=== PATIENT | female | born 1960 | race African-American/Black ===

== ENCOUNTER 2016-09-23 16:24 | Emergency (ER) | payer OTHER ==
[~2016-09-23] VITALS: Ht 157.5 cm; Wt 63.5 kg
[2016-09-23] MEDS ORDERED: IV NORMAL SALINE 1000ML BAG 1,000 ML IV SCH (16:47)
[2016-09-23] MEDS ORDERED: ONDANSETRON PF 4 MG/2 ML VIAL. IV ONE (17:00)
[2016-09-23] MEDS: fentaNYL PF VIAL 100 MCG/2 ML VIAL IV PRN ×2 (17:23→19:05)
[2016-09-23 17:38] LABS: BILIRUBIN,URINE SMALL (NEG); GLUCOSE,URINE 100 mg/dL (NEG); NITRITE,URINE NEGATIVE (NEG); PH,URINE 5.5; PROTEIN,URINE >=300 mg/dL (NEG-TRACE); UROBILINOGEN,URINE 0.2 mg/dL (0.2 mg/dL)
[2016-09-23 17:46] LABS: BARBITURATES NEG (NEG); BENZODIAZEPINES NEG (NEG); CANNABINOIDS POS (NEG); COCAINE NEG (NEG); METHADONE NEG (NEG); OPIATES NEG (NEG); PHENCYCLIDINE NEG (NEG)
[2016-09-23 17:50] LABS: BACTERIA,URINE FEW /HPF (0-FEW); RBC,URINE 0 /HPF (0-2); SQUAMOUS EPITHELIAL CELL,UR FEW /LPF
[2016-09-23 17:54] LABS: BASO # 0.1 x10^3/uL (0.0-0.2); BASO % 1 % (0-3); EOS % 1 % (0-3); HEMOGLOBIN 10.2 g/dL (12.0-15.5); LYMPH # 2.2 x10^3/uL (1.0-4.8); LYMPH % 20 % (24-48); MEAN CORPUSCULAR HEMOGLOBIN 29 pg (25-35); MEAN CORPUSCULAR HGB CONC 33 g/dL (31-37); MEAN CORPUSCULAR VOLUME 87 fL (79-100); MONO % 10 % (0-9); NEUT % 69 % (31-73); PLATELET COUNT 222 x10^3/uL (140-400); RED BLOOD COUNT 3.55 x10^6/uL (3.50-5.40); RED CELL DISTRIBUTION WIDTH 14.1 % (11.5-14.5); WHITE BLOOD COUNT 11.2 x10^3/uL (4.0-11.0)
[2016-09-23 18:04] LABS: INR 1.1 (0.8-1.1); PROTHROMBIN TIME PATIENT 13.5 SEC (11.7-14.0)
[2016-09-23 18:06] LABS: CALCIUM 9.4 mg/dL (8.5-10.1); CREATININE 2.5 mg/dL (0.6-1.0); GFR 24.3; POTASSIUM 5.3 mmol/L (3.5-5.1)
[2016-09-23] MEDS ORDERED: CONTRAST GIVEN MC PRN (18:15)
[2016-09-23 18:17] LABS: ALBUMIN 3.1 g/dL (3.4-5.0); ALBUMIN/GLOBULIN RATIO 0.8 (1.0-1.7); TOTAL BILIRUBIN 0.3 mg/dL (0.2-1.0); TOTAL PROTEIN 6.9 g/dL (6.4-8.2)
[2016-09-23] MEDS ORDERED: IOHEXOL 300 MG/ML 75 ML VIAL IV ONE (18:30)
--- NOTE | 2016-09-23 18:51 | RAD ---
CT Chest Abdomen Pelvis without Intravenous Contrast: History: Syncope, severe chronic pain. Cough and wheezing Comparison: CT abdomen pelvis from July 11, 2012. Technique: Noncontrast CT of chest, abdomen, and pelvis was performed from the lung apices through the ischial tuberosities. Exposure: One or more of the following individualized dose reduction techniques were utilized for this examination: 1. Automated exposure control 2. Adjustment of the mA and/or kV according to patient size 3. Use of iterative reconstruction technique Findings: Evaluation of solid organs is limited by lack of intravenous contrast. Evaluation of enteric structures may be limited by lack of oral contrast. Trachea and mainstem bronchi appear patent. No mediastinal lymphadenopathy is seen. Thyroid is symmetric. Coronary artery calcifications are present. Minimal pericardial thickening versus effusion is seen. No pneumothorax or pleural effusion is identified. Mild emphysematous changes are seen in the lung apices. Ground glass opacity is seen in both lungs, nonspecific, could be atelectasis versus mild nonspecific infectious or inflammatory process. Liver, spleen, pancreas, and bilateral adrenal glands unremarkable. Cholecystectomy clips are seen. No bowel obstruction or inflammation is identified. Appendix is without evidence of inflammation. Urinary bladder is unremarkable. Uterus may be absent. Both kidneys demonstrate punctate nonobstructive nephrolithiasis. Impression: 1. Nonspecific groundglass opacity involving the lungs. Findings could represent atelectasis versus nonspecific infectious or inflammatory process. 2. No acute abnormality identified in the abdomen or pelvis. Electronically signed by: Sam Conley MD (09/23/2016 6:48 PM)
--- NOTE | 2016-09-23 19:01 | PHYS DOC ---
Past Medical History Past Medical History: Diabetes-Type II, Glaucoma, Hypertension Additional Past Medical Histor: neuropathy, cataracts Past Surgical History: No Surgical History Alcohol Use: None Drug Use: None Adult General Chief Complaint Chief Complaint: multiple HPI HPI Patient is a 56 year old female brought to the ED by EMS. Patient's daughter came in as well and history is mostly from her. The patient gave a history but it is not at all consistent with what EMS or the daughter told me. Patient's daughter told me that she had not been responsive and they called 911. They thought her sugar was low but were unable to get an Accu-Chek. The patient tells me that she had taken her insulin shot, she felt hungry, she ate some [employer]. Then she suddenly couldn't stand up when she wanted to go out to smoke. Her daughter however told me that she had been on the toilet and I believe had a syncopal episode. On arrival, the patient is complaining bitterly of pain. She is complaining that her head, stomach, and back hurt, she is writhing on the cart and is not able to well localize her pain. She denies shortness of breath or vomiting. PCP [facility] Review of Systems Review of Systems History given by the patient is unreliable and inconsistent, therefore patient was not able to give an accurate review of systems, review of systems was not obtained. Current Medications Current Medications Current Medications Medications (Trade) Dose Ordered Sig/[facility] Start Time Stop Time Status Last Admin Dose Admin Fentanyl Citrate (Fentanyl 2ml Vial) 50 mcg PRN Q15MIN PRN 09/23/16 17:00 09/23/16 19:22 DC 09/23/16 19:05 50 MCG Info (Do NOT chart on this entry -- for MONITORING) 1 each PRN DAILY PRN 09/23/16 18:15 09/23/16 19:22 DC Iohexol (Omnipaque 300 Mg/ml) 75 ml 1X ONCE 09/23/16 18:30 09/23/16 18:31 DC Ondansetron HCl (Zofran) 4 mg 1X ONCE 09/23/16 17:00 09/23/16 17:01 DC 09/23/16 17:23 4 MG Sodium Chloride 1,000 ml @ 1,000 mls/hr Q1H 09/23/16 16:47 09/23/16 17:46 DC 09/23/16 17:23 1,000 MLS/HR Allergies Allergies Allergies Coded Allergies Type Severity Reaction Last Updated Verified No Known Drug Allergies 05/29/13 No Physical Exam Physical Exam Constitutional: Well developed, well nourished, alert, thrashing around on the cart, complaining bitterly of stomach and back pain, alert and does answer questions appropriately. HENT: Normocephalic, atraumatic, bilateral external ears normal, nose normal. [ ] Eyes: conjunctiva normal, no discharge. [] Neck: Normal range of motion, no stridor. [] Cardiovascular:Heart rate regular rhythm, no murmur [] Lungs & Thorax: Bilateral breath sounds clear to auscultation [] Abdomen: Bowel sounds normal, soft, no masses, no pulsatile masses. Moderately distended, increased in tympany, tender to palpation throughout the abdomen, generalized, not localized. No rebound or guarding. Skin: Warm, dry, no erythema, no rash. [] Back: No skin abnormalities overlying. Tender to light palpation across the entire back, over bony and muscular areas, not localized, very tender to touch Extremities: No tenderness, no cyanosis, no clubbing, ROM intact, no edema. [] Neurologic: Alert and oriented X 3, normal motor function, normal sensory function, no focal deficits noted. [] Current Patient Data Vital Signs Vital Signs Date Time Temp Pulse Resp B/P (MAP) Pulse Ox O2 Delivery O2 Flow Rate FiO2 09/23/16 19:14 91 20 160/84 (109) 100 Room Air 09/23/16 16:25 98.9 98.9 Lab Values Laboratory Tests Test 09/23/16 17:30 White Blood Count 11.2 x10^3/uL (4.0-11.0) H Red Blood Count 3.55 x10^6/uL (3.50-5.40) Hemoglobin 10.2 g/dL (12.0-15.5) L Hematocrit 31.0 % (36.0-47.0) L Mean Corpuscular Volume 87 fL (79-100) Mean Corpuscular Hemoglobin 29 pg (25-35) Mean Corpuscular Hemoglobin Concent 33 g/dL (31-37) Red Cell Distribution Width 14.1 % (11.5-14.5) Platelet Count 222 x10^3/uL (140-400) Neutrophils (%) (Auto) 69 % (31-73) Lymphocytes (%) (Auto) 20 % (24-48) L Monocytes (%) (Auto) 10 % (0-9) H Eosinophils (%) (Auto) 1 % (0-3) Basophils (%) (Auto) 1 % (0-3) Neutrophils # (Auto) 7.7 x10^3uL (1.8-7.7) Lymphocytes # (Auto) 2.2 x10^3/uL (1.0-4.8) Monocytes # (Auto) 1.1 x10^3/uL (0.0-1.1) Eosinophils # (Auto) 0.1 x10^3/uL (0.0-0.7) Basophils # (Auto) 0.1 x10^3/uL (0.0-0.2) Prothrombin Time 13.5 SEC (11.7-14.0) Prothrombin Time INR 1.1 (0.8-1.1) PTT 26 SEC (24-38) Urine Collection Type Unknown Urine Color Yellow Urine Clarity Clear Urine pH 5.5 Urine Specific [place] 1.015 Urine Protein >=300 mg/dL (NEG-TRACE) Urine Glucose (UA) 100 mg/dL (NEG) Urine Ketones (Stick) Negative mg/dL (NEG) Urine Blood Negative (NEG) Urine Nitrite Negative (NEG) Urine Bilirubin Small (NEG) Urine Urobilinogen Dipstick 0.2 mg/dL (0.2 mg/dL) Urine Leukocyte Esterase Small (NEG) Urine RBC 0 /HPF (0-2) Urine WBC 1-4 /HPF (0-4) Urine Squamous Epithelial Cells Few /LPF Urine Amorphous Sediment Present /HPF Urine Bacteria Few /HPF (0-FEW) Urine Hyaline Casts Few /HPF Sodium Level 142 mmol/L (136-145) Potassium Level 5.3 mmol/L (3.5-5.1) H Chloride Level 107 mmol/L (98-107) Carbon Dioxide Level 26 mmol/L (21-32) Anion Gap 9 (6-14) Blood Urea Nitrogen 30 mg/dL (7-20) H Creatinine 2.5 mg/dL (0.6-1.0) H Estimated GFR (Cockcroft-Gault) 24.3 BUN/Creatinine Ratio 12 (6-20) Glucose Level 144 mg/dL (70-99) H Calcium Level 9.4 mg/dL (8.5-10.1) Total Bilirubin 0.3 mg/dL (0.2-1.0) Aspartate Amino Transferase (AST) 21 U/L (15-37) Alanine Aminotransferase (ALT) 20 U/L (14-59) Alkaline Phosphatase 84 U/L (46-116) Creatine Kinase 138 U/L (26-192) Creatine Kinase MB (Mass) 2.0 ng/mL (0.0-3.6) Creatine Kinase MB Relative Index 1.4 % (0-4) Troponin I Quantitative < 0.017 ng/mL (0.000-0.055) Total Protein 6.9 g/dL (6.4-8.2) Albumin 3.1 g/dL (3.4-5.0) L Albumin/Globulin Ratio 0.8 (1.0-1.7) L Lipase 276 U/L (73-393) Urine Opiates Screen Neg (NEG) Urine Methadone Screen Neg (NEG) Urine Barbiturates Neg (NEG) Urine Phencyclidine Screen Neg (NEG) Urine Amphetamine/Methamphetamine Neg (NEG) Urine Benzodiazepines Screen Neg (NEG) Urine Cocaine Screen Neg (NEG) Urine Cannabinoids Screen Pos (NEG) Urine Ethyl Alcohol Neg (NEG) Laboratory Tests 09/23/16 17:30 Laboratory Tests 09/23/16 17:30 EKG EKG 12-lead EKG read by me. Sinus rhythm. Heart rate 87. There are no acute ST or T wave changes indicative of ischemia or infarction. No STEMI. 1633 [] Radiology/Procedures Radiology/Procedures CT scan of the chest, abdomen, and pelvis read by the radiologist. No acute findings to explain the patient's complaints. [] Course & Med Decision Making Course & Med Decision Making Pertinent Labs and Imaging studies reviewed. (See chart for details) 56-year-old female brought by EMS with sounds like syncope, complaining of severe abdominal and back pain. Patient is a diabetic. History is difficult to get from her as she is vague and complaining bitterly. With the amount of complaint, I'm concerned about the possibility of something serious. She was given IV pain medicine, CT scan of the chest, abdomen and pelvis was ordered. I originally ordered it with contrast but her creatinine is elevated so we will have to get a noncontrast study. Labs unrevealing. CT scan of the chest, abdomen, pelvis read by the radiologist. No acute findings. The patient is sitting up on the cart, complaining that she is bleeding from a hang nail. Her pain appears to be gone and she appears to be comfortable and stable. She appears to be in no discomfort at this time. She is asking for apple juice, orange juice, or soda to drink at this time. Daughter is here to take her home. See instructions for plan. [] Dragon Disclaimer Dragon Disclaimer This electronic medical record was generated, in whole or in part, using a voice recognition dictation system. Departure Departure Impression: Primary Impression: Abdominal pain Additional Impressions: Back pain Diabetes Disposition: 01 HOME, SELF-CARE Condition: IMPROVED Referrals: LYNDSEY GARCÍA DO (PCP) Patient Instructions: Type 2 Diabetes Mellitus, Adult, [id number] Additional Instructions: Ask your primary care doctor if you can see a childbirth educator for better ideas of what you should eat and drink. Ice or heat to back pain. Scripts No Active Prescriptions or Reported Meds Problem Qualifiers JOSE MORRIS MD Sep 23, 2016 19:01
[2016-09-23 19:14] VITALS: BP 160/84
--- NOTE | 2016-09-24 08:41 | EKG ---
[facility] [address] [place] [address] Test Date: 2016-09-23 Test Time: 16:33:58 Pat Name: OTTONIEL SMITH Department: Room: Gender: F Plater Helper: : 1960 Requested By: JOSE MORRIS Order Number: [id number] Reading MD: Cecily Pepper Measurements Intervals [place] Rate: 87 P: 62 [place]: 158 QRS: 38 QRSD: 80 T: 68 QT: 348 QTc: 419 Interpretive Statements SINUS RHYTHM LEFT ATRIAL ABNORMALITY QRS(T) CONTOUR ABNORMALITY CONSIDER ANTEROSEPTAL MYOCARDIAL DAMAGE Electronically Signed On 09-24-2016 14:29:52 CDT by Cecily Pepper
== END 2016-09-23 19:22 | disposition home or self-care (01) ==
LOC: ER 16:24
DX: M54.9 Dorsalgia, unspecified (principal); R10.9 Unspecified abdominal pain; R55 Syncope and collapse; F17.200 Nicotine dependence, unspecified, uncomplicated; E11.9 Type 2 diabetes mellitus without complications; G89.29 Other chronic pain; Z79.4 Long term (current) use of insulin; I10 Essential (primary) hypertension; E11.39 Type 2 diabetes mellitus with other diabetic ophthalmic complication; H40.9 Unspecified glaucoma; E11.40 Type 2 diabetes mellitus with diabetic neuropathy, unspecified; Z98.49 Cataract extraction status, unspecified eye
CPT/HCPCS: 36415; 71250; 74176; 80053; 80305; 80320; 81001; 82553; 83690; 84484; 85027; 85610; 85730; 87086; 93005; 96361; 96374; 96375; 96376; 99285; J2405; J3010; J7030; G0481

== ENCOUNTER 2016-10-01 13:26 | Emergency (ER) | payer OTHER ==
[~2016-10-01] VITALS: Ht 157.5 cm; Wt 61.2 kg
[2016-10-01] MEDS ORDERED: TRANEXAMIC ACID 1,000 MG/10 ML VIAL. TOP ONE (13:45)
[2016-10-01] MEDS ORDERED: NEOMY/BACITR/POLYMYXIN OINT PACKET. TP ONE (13:45)
[2016-10-01] MEDS ORDERED: IV NORMAL SALINE 1000ML BAG 1,000 ML IV ONE (13:45)
[2016-10-01] MEDS ORDERED: MORPHINE SULFATE 10 MG/ML VIAL. IV ONE (13:45)
[2016-10-01] MEDS ORDERED: OXYMETAZOLINE 0.05% NASAL SPRAY 30ML BOTTLE. NS ONE (13:45)
[2016-10-01 14:21] LABS: BASO # 0.1 x10^3/uL (0.0-0.2); BASO % 1 % (0-3); EOS % 1 % (0-3); HEMATOCRIT 34.7 % (36.0-47.0); HEMOGLOBIN 11.2 g/dL (12.0-15.5); LYMPH # 2.5 x10^3/uL (1.0-4.8); LYMPH % 22 % (24-48); MEAN CORPUSCULAR HEMOGLOBIN 28 pg (25-35); MEAN CORPUSCULAR HGB CONC 32 g/dL (31-37); MEAN CORPUSCULAR VOLUME 88 fL (79-100); MONO % 6 % (0-9); NEUT % 70 % (31-73); PLATELET COUNT 252 x10^3/uL (140-400); RED BLOOD COUNT 3.95 x10^6/uL (3.50-5.40); WHITE BLOOD COUNT 11.5 x10^3/uL (4.0-11.0)
--- NOTE | 2016-10-01 14:28 | PHYS DOC ---
Past Medical History Past Medical History: Diabetes-Type II, Fibromyalgia, Glaucoma, Hypertension, Other Additional Past Medical Histor: neuropathy, cataracts,CHRONIC PAIN Past Surgical History: Hysterectomy Additional Information: 0.5 PPD Alcohol Use: None Drug Use: None Adult General Chief Complaint Chief Complaint: NOSEBLEED HPI HPI Patient is a 56 year old female presenting to the emergency department for evaluation of epistaxis. Reportedly she has had a nosebleed for the past 2-3 days but she has not tried treating it with anything. The nosebleed is stopped currently. She says that she is here for a variety of other complaints and basically everything ask her she says yes to. I asked her what her primary reason for being here and she says that it is that she has low back pain. She was in the emergency department last week for similar issues and sounds like the daughter was only able to provide some meaningful history but the daughter is not present today. Review of Systems Review of Systems REPORTS YES TO ALL ROS QUESTIONS Current Medications Current Medications Current Medications Medications (Trade) Dose Ordered Sig/[place] Start Time Stop Time Status Last Admin Dose Admin Diphenhydramine HCl (Benadryl) 50 mg 1X ONCE 10/01/16 14:45 10/01/16 14:46 DC 10/01/16 14:43 50 MG Morphine Sulfate 5 mg 1X ONCE 10/01/16 13:45 10/01/16 13:46 DC 10/01/16 14:16 5 MG Neomycin/ Polymyxin/ Bacitracin (Triple Antibiotic Ointment) 1 pkt 1X ONCE 10/01/16 13:45 10/01/16 13:46 DC 10/01/16 14:28 1 PKT Oxymetazoline HCl (Afrin) 2 spray 1X ONCE 10/01/16 13:45 10/01/16 13:46 DC 10/01/16 14:16 2 SPRAY Sodium Chloride 1,000 ml @ 1,000 mls/hr 1X ONCE 10/01/16 13:45 10/01/16 14:44 DC 10/01/16 14:15 1,000 MLS/HR Tranexamic Acid (Cyklokapron) 1,000 mg 1X ONCE 10/01/16 13:45 10/01/16 13:46 DC 10/01/16 14:28 1,000 MG Allergies Allergies Allergies Coded Allergies Type Severity Reaction Last Updated Verified No Known Drug Allergies 05/29/13 No Physical Exam Physical Exam Constitutional: Anxious HENT: Normocephalic, atraumatic, bilateral external ears normal, oropharynx moist. Right anterior [place] with small using blunt no severe bleeding noted. No septal hematoma Eyes: PERRLA, EOMI, conjunctiva normal, no discharge. [] Cardiovascular:Heart rate regular rhythm, no murmur [] Lungs & Thorax: Bilateral breath sounds clear to auscultation [] Abdomen: Bowel sounds normal, soft, no tenderness, no masses, no pulsatile masses. [] Neurologic: Alert and oriented X 3, normal motor function, normal sensory function, no focal deficits noted. [] Current Patient Data Vital Signs Vital Signs Date Time Temp Pulse Resp B/P (MAP) Pulse Ox O2 Delivery O2 Flow Rate FiO2 10/01/16 15:06 83 19 201/96 (131) 98 10/01/16 14:16 Room Air 10/01/16 13:26 98.1 98.1 Lab Values Laboratory Tests Test 10/01/16 14:10 White Blood Count 11.5 x10^3/uL (4.0-11.0) H Red Blood Count 3.95 x10^6/uL (3.50-5.40) Hemoglobin 11.2 g/dL (12.0-15.5) L Hematocrit 34.7 % (36.0-47.0) L Mean Corpuscular Volume 88 fL (79-100) Mean Corpuscular Hemoglobin 28 pg (25-35) Mean Corpuscular Hemoglobin Concent 32 g/dL (31-37) Red Cell Distribution Width 14.0 % (11.5-14.5) Platelet Count 252 x10^3/uL (140-400) Neutrophils (%) (Auto) 70 % (31-73) Lymphocytes (%) (Auto) 22 % (24-48) L Monocytes (%) (Auto) 6 % (0-9) Eosinophils (%) (Auto) 1 % (0-3) Basophils (%) (Auto) 1 % (0-3) Neutrophils # (Auto) 8.1 x10^3uL (1.8-7.7) H Lymphocytes # (Auto) 2.5 x10^3/uL (1.0-4.8) Monocytes # (Auto) 0.7 x10^3/uL (0.0-1.1) Eosinophils # (Auto) 0.1 x10^3/uL (0.0-0.7) Basophils # (Auto) 0.1 x10^3/uL (0.0-0.2) Prothrombin Time 12.3 SEC (11.7-14.0) Prothrombin Time INR 1.0 (0.8-1.1) PTT 26 SEC (24-38) Sodium Level 141 mmol/L (136-145) Potassium Level 4.7 mmol/L (3.5-5.1) Chloride Level 107 mmol/L (98-107) Carbon Dioxide Level 23 mmol/L (21-32) Anion Gap 11 (6-14) Blood Urea Nitrogen 33 mg/dL (7-20) H Creatinine 1.4 mg/dL (0.6-1.0) H Estimated GFR (Cockcroft-Gault) 47.4 BUN/Creatinine Ratio 24 (6-20) H Glucose Level 206 mg/dL (70-99) H Calcium Level 9.8 mg/dL (8.5-10.1) Magnesium Level 2.2 mg/dL (1.8-2.4) Total Bilirubin 0.2 mg/dL (0.2-1.0) Aspartate Amino Transferase (AST) 24 U/L (15-37) Alanine Aminotransferase (ALT) 20 U/L (14-59) Alkaline Phosphatase 102 U/L (46-116) Total Protein 7.9 g/dL (6.4-8.2) Albumin 3.4 g/dL (3.4-5.0) Albumin/Globulin Ratio 0.8 (1.0-1.7) L Laboratory Tests 10/01/16 14:10 Laboratory Tests 10/01/16 14:10 EKG EKG [] Radiology/Procedures Radiology/Procedures Right nose packed with to cough swamps that had tranexamic acid and Afrin on it. The bleeding stopped but I wanted to put a rapid Rhino just in case she started bleeding again at home but she did not tolerate it and refused to have a rapid Rhino placed. Course & Med Decision Making Course & Med Decision Making Patient with epistaxis and some other complaints so we'll get some screening labs and treat her epistaxis. Labs are all near her baseline and her vital signs are normal except for her blood pressure which appears to be baseline for her. Patient states that she missed her dose this medication so I encouraged her to go home and take her medications as prescribed. Patient's epistaxis resolved in the emergency department and she refused Rhino Rocket but I gave her information for ENT to follow with. Patient aware and agreeable with plan for discharge and verbalized understanding of the need for short-term follow-up and strict ER return precautions discussed including worsening pain fevers vomiting or other general concerns. Dragon Disclaimer Dragon Disclaimer This electronic medical record was generated, in whole or in part, using a voice recognition dictation system. Departure Departure Impression: Primary Impression: Epistaxis Disposition: HOME, SELF-CARE Condition: GOOD Referrals: UNKNOWN PCP NAME (PCP) Patient Instructions: Nosebleed Additional Instructions: PUT AFRIN AND NEOSPORIN IN YOUR NOSE TWICE DAILY. ESPECIALLY REMEMBER TO PUT NEOSPORIN IN THE NOSE BEFORE YOU GO TO SLEEP TONIGHT. FOLLOW WITH THE ENT ON MONDAY. TELL THEM THAT YOU ARE FROM [facility]. CALL DR. CHONG, THE ENT AT [phone]. THANK YOU! Scripts Hydrocodone/Apap 5-325 (NORCO 5-325 TABLET) 1 Each Tablet 1 TAB PO PRN Q6HRS Y for PAIN, #14 TAB 0 Refills Prov: ADALBERTO MARTINEZ DO 10/01/16 ADALBERTO MARTINEZ DO Oct 01, 2016 14:28
[2016-10-01 14:29] LABS: PROTHROMBIN TIME PATIENT 12.3 SEC (11.7-14.0)
[2016-10-01 14:38] LABS: CALCIUM 9.8 mg/dL (8.5-10.1); CREATININE 1.4 mg/dL (0.6-1.0); GFR 47.4; POTASSIUM 4.7 mmol/L (3.5-5.1)
[2016-10-01] MEDS ORDERED: diphenhydrAMINE 50 MG/ML VIAL IVP ONE (14:45)
[2016-10-01 14:47] LABS: ALBUMIN 3.4 g/dL (3.4-5.0); ALBUMIN/GLOBULIN RATIO 0.8 (1.0-1.7); MAGNESIUM 2.2 mg/dL (1.8-2.4); TOTAL BILIRUBIN 0.2 mg/dL (0.2-1.0); TOTAL PROTEIN 7.9 g/dL (6.4-8.2)
[2016-10-01] MEDS ORDERED: HYDR-971 PO (15:02)
[2016-10-01 15:06] VITALS: BP 201/96
== END 2016-10-01 15:32 | disposition home or self-care (01) ==
LOC: ER 13:26
DX: R04.0 Epistaxis (principal); M54.5 Low back pain; E11.40 Type 2 diabetes mellitus with diabetic neuropathy, unspecified; E11.39 Type 2 diabetes mellitus with other diabetic ophthalmic complication; H40.9 Unspecified glaucoma; I10 Essential (primary) hypertension; G89.29 Other chronic pain; M79.7 Fibromyalgia; F17.200 Nicotine dependence, unspecified, uncomplicated; Z90.710 Acquired absence of both cervix and uterus
CPT/HCPCS: 30901; 36415; 80053; 83735; 85027; 85610; 85730; 96361; 96374; 96375; 99284; J1200; J2270; J7030; C1887

== ENCOUNTER 2016-10-26 10:56 | Emergency (ER) | payer OTHER ==
[~2016-10-26] VITALS: Ht 162.6 cm; Wt 61.2 kg
[~2016-10-26 10:56] MED LIST: HYDR-971 PO
[2016-10-26 11:44] LABS: BILIRUBIN,URINE NEGATIVE (NEG); GLUCOSE,URINE >=1000 mg/dL (NEG); NITRITE,URINE NEGATIVE (NEG); PROTEIN,URINE 100 mg/dL (NEG-TRACE); UROBILINOGEN,URINE 0.2 mg/dL (0.2 mg/dL)
[2016-10-26 12:00] VITALS: BP 157/99
[2016-10-26 12:00] LABS: BARBITURATES NEG (NEG); BENZODIAZEPINES NEG (NEG); CANNABINOIDS POS (NEG); COCAINE POS (NEG); METHADONE NEG (NEG); OPIATES NEG (NEG); PHENCYCLIDINE NEG (NEG)
[2016-10-26] MEDS ORDERED: ONDANSETRON PF 4 MG/2 ML VIAL. IV ONE (12:00)
[2016-10-26] MEDS ORDERED: fentaNYL PF VIAL 100 MCG/2 ML VIAL IV ONE (12:00)
[2016-10-26 12:03] LABS: BACTERIA,URINE FEW /HPF (0-FEW); SQUAMOUS EPITHELIAL CELL,UR FEW /LPF; WBC,URINE OCC /HPF (0-4)
[2016-10-26 12:20] LABS: ALBUMIN 3.5 g/dL (3.4-5.0); ALBUMIN/GLOBULIN RATIO 0.8 (1.0-1.7); CALCIUM 9.8 mg/dL (8.5-10.1); CREATININE 2.2 mg/dL (0.6-1.0); GFR 28.1; POTASSIUM 4.9 mmol/L (3.5-5.1); TOTAL BILIRUBIN 0.3 mg/dL (0.2-1.0); TOTAL PROTEIN 7.7 g/dL (6.4-8.2)
[2016-10-26 13:10] LABS: BASO # 0.2 x10^3/uL (0.0-0.2); BASO % 1 % (0-3); EOS % 0 % (0-3); HEMATOCRIT 35.9 % (36.0-47.0); HEMOGLOBIN 11.6 g/dL (12.0-15.5); LYMPH # 2.2 x10^3/uL (1.0-4.8); LYMPH % 15 % (24-48); MEAN CORPUSCULAR HEMOGLOBIN 28 pg (25-35); MEAN CORPUSCULAR HGB CONC 32 g/dL (31-37); MEAN CORPUSCULAR VOLUME 88 fL (79-100); MONO % 5 % (0-9); NEUT % 80 % (31-73); PLATELET COUNT 260 x10^3/uL (140-400); RED CELL DISTRIBUTION WIDTH 14.3 % (11.5-14.5); WHITE BLOOD COUNT 15.2 x10^3/uL (4.0-11.0)
[2016-10-26 13:21] LABS: INR 0.9 (0.8-1.1)
[2016-10-26] MEDS ORDERED: HALOPERIDOL LACTATE 5 MG/ML VIAL. IVP ONE (13:30)
--- NOTE | 2016-10-26 16:40 | ED.ADGEN ---
Past Medical History Past Medical History: Diabetes-Type II, Fibromyalgia, Glaucoma, Hypertension, Other Additional Past Medical Histor: neuropathy, cataracts,CHRONIC PAIN Past Surgical History: Hysterectomy Alcohol Use: None Drug Use: None Adult General Chief Complaint Chief Complaint: ABDOMINAL PAIN HPI HPI Patient is a 56 year old -[place] female with history of hypertension, type 2 diabetes and polysubstance abuse who presents with diffuse abdominal pain with nausea and vomiting starting yesterday. Patient states pain is mild to moderate described as aching is not localized. Denies prior abdominal surgeries. No fever chills or sweats. No flank pain dysuria, hematuria or urinary frequency or urgency. No prior abdominal surgeries. Patient ears limiting history Review of Systems Review of Systems ROS as per HPI, Current Medications Current Medications Current Medications Medications (Trade) Dose Ordered Sig/[place] Start Time Stop Time Status Last Admin Dose Admin Fentanyl Citrate (Fentanyl 2ml Vial) 75 mcg 1X ONCE 10/26/16 12:00 10/26/16 12:01 DC 10/26/16 11:57 75 MCG Haloperidol Lactate (Haldol) 2.5 mg 1X ONCE 10/26/16 13:30 10/26/16 13:31 DC Ondansetron HCl (Zofran) 4 mg 1X ONCE 10/26/16 12:00 10/26/16 12:01 DC 10/26/16 11:53 4 MG Allergies Allergies Allergies Coded Allergies Type Severity Reaction Last Updated Verified No Known Drug Allergies 05/29/13 No Physical Exam Physical Exam Constitutional: Well developed, mild agitation. [] HENT: Normocephalic, atraumatic, bilateral external ears normal, oropharynx moist, no oral exudates, nose normal. [] Eyes: PERRLA, EOMI, conjunctiva normal, no discharge. [] Neck: Normal range of motion, no tenderness, supple, no stridor. [] Cardiovascular:Heart rate regular rhythm, no murmur [] Lungs & Thorax: Bilateral breath sounds clear to auscultation [] Abdomen: Bowel sounds normal, soft, she is lower abdominal pain, tenderness. [] Skin: Warm, dry, no erythema, no rash. [] Back: No tenderness, no CVA tenderness. [] Extremities: No tenderness, no cyanosis, no clubbing, ROM intact, no edema. [] Neurologic: Alert and oriented X 3, normal motor function, normal sensory function, no focal deficits noted. [] Psychologic: Affect normal, judgement normal, mood normal. [] Current Patient Data Vital Signs Vital Signs Date Time Temp Pulse Resp B/P (MAP) Pulse Ox O2 Delivery O2 Flow Rate FiO2 10/26/16 12:00 92 19 157/99 (118) 98 Room Air 10/26/16 10:58 98.2 98.2 Lab Values Laboratory Tests Test 10/26/16 11:25 10/26/16 11:55 Urine Collection Type Unknown Urine Color Yellow Urine Clarity Clear Urine pH 6.0 Urine Specific [place] 1.015 Urine Protein 100 mg/dL (NEG-TRACE) Urine Glucose (UA) >=1000 mg/dL (NEG) Urine Ketones (Stick) Negative mg/dL (NEG) Urine Blood Large (NEG) Urine Nitrite Negative (NEG) Urine Bilirubin Negative (NEG) Urine Urobilinogen Dipstick 0.2 mg/dL (0.2 mg/dL) Urine Leukocyte Esterase Small (NEG) Urine RBC 11-20 /HPF (0-2) Urine WBC Occ /HPF (0-4) Urine Squamous Epithelial Cells Few /LPF Urine Bacteria Few /HPF (0-FEW) Urine Opiates Screen Neg (NEG) Urine Methadone Screen Neg (NEG) Urine Barbiturates Neg (NEG) Urine Phencyclidine Screen Neg (NEG) Urine Amphetamine/Methamphetamine Neg (NEG) Urine Benzodiazepines Screen Neg (NEG) Urine Cocaine Screen Pos (NEG) Urine Cannabinoids Screen Pos (NEG) Urine Ethyl Alcohol Neg (NEG) White Blood Count 15.2 x10^3/uL (4.0-11.0) H Red Blood Count 4.10 x10^6/uL (3.50-5.40) Hemoglobin 11.6 g/dL (12.0-15.5) L Hematocrit 35.9 % (36.0-47.0) L Mean Corpuscular Volume 88 fL (79-100) Mean Corpuscular Hemoglobin 28 pg (25-35) Mean Corpuscular Hemoglobin Concent 32 g/dL (31-37) Red Cell Distribution Width 14.3 % (11.5-14.5) Platelet Count 260 x10^3/uL (140-400) Neutrophils (%) (Auto) 80 % (31-73) H Lymphocytes (%) (Auto) 15 % (24-48) L Monocytes (%) (Auto) 5 % (0-9) Eosinophils (%) (Auto) 0 % (0-3) Basophils (%) (Auto) 1 % (0-3) Neutrophils # (Auto) 12.1 x10^3uL (1.8-7.7) H Lymphocytes # (Auto) 2.2 x10^3/uL (1.0-4.8) Monocytes # (Auto) 0.7 x10^3/uL (0.0-1.1) Eosinophils # (Auto) 0.0 x10^3/uL (0.0-0.7) Basophils # (Auto) 0.2 x10^3/uL (0.0-0.2) Prothrombin Time 12.0 SEC (11.7-14.0) Prothrombin Time INR 0.9 (0.8-1.1) Sodium Level 138 mmol/L (136-145) Potassium Level 4.9 mmol/L (3.5-5.1) Chloride Level 103 mmol/L (98-107) Carbon Dioxide Level 22 mmol/L (21-32) Anion Gap 13 (6-14) Blood Urea Nitrogen 38 mg/dL (7-20) H Creatinine 2.2 mg/dL (0.6-1.0) H Estimated GFR (Cockcroft-Gault) 28.1 BUN/Creatinine Ratio 17 (6-20) Glucose Level 402 mg/dL (70-99) H Calcium Level 9.8 mg/dL (8.5-10.1) Total Bilirubin 0.3 mg/dL (0.2-1.0) Aspartate Amino Transferase (AST) 27 U/L (15-37) Alanine Aminotransferase (ALT) 25 U/L (14-59) Alkaline Phosphatase 110 U/L (46-116) Creatine Kinase 370 U/L (26-192) H Troponin I Quantitative < 0.017 ng/mL (0.000-0.055) Total Protein 7.7 g/dL (6.4-8.2) Albumin 3.5 g/dL (3.4-5.0) Albumin/Globulin Ratio 0.8 (1.0-1.7) L Lipase 689 U/L (73-393) H Laboratory Tests 10/26/16 11:55 Laboratory Tests 8/2/17 11:55 EKG EKG [] Radiology/Procedures Radiology/Procedures [] Course & Med Decision Making Course & Med Decision Making Pertinent Labs and Imaging studies reviewed. (See chart for details) [Patient given IV pain medication shortly after ED arrival. Lab and imaging studies pending. Clinically, she is agitated with suspected simulate use. Patient requests discharge after leaving emergency Department and leaves AGAINST MEDICAL ADVICE prior to discharge instructions provided. ] Dragon Disclaimer Dragon Disclaimer This electronic medical record was generated, in whole or in part, using a voice recognition dictation system. KAYLEE MORGAN DO Oct 26, 2016 16:40
== END 2016-10-26 13:10 | disposition left against medical advice (07) ==
LOC: ER 10:56
DX: R10.84 Generalized abdominal pain (principal); R11.2 Nausea with vomiting, unspecified; R10.30 Lower abdominal pain, unspecified; E11.40 Type 2 diabetes mellitus with diabetic neuropathy, unspecified; M79.7 Fibromyalgia; H40.9 Unspecified glaucoma; I10 Essential (primary) hypertension; G89.29 Other chronic pain; E11.36 Type 2 diabetes mellitus with diabetic cataract; F19.10 Other psychoactive substance abuse, uncomplicated; Z90.710 Acquired absence of both cervix and uterus; Z98.49 Cataract extraction status, unspecified eye
CPT/HCPCS: 36415; 80053; 80307; 81001; 82550; 83690; 84484; 85027; 85610; 87086; 96374; 96375; 99284; J2405; J3010; 80320; G0479

== ENCOUNTER 2016-12-26 21:29 | Emergency (ER) | payer OTHER ==
[~2016-12-26] VITALS: Ht 157.5 cm; Wt 65.8 kg
[2016-12-26] MEDS: HYDROcodone/APAP 5/325MG 1 TAB TABLET PO ONE (22:57)
[2016-12-26 23:23] LABS: BASO # 0.1 x10^3/uL (0.0-0.2); BASO % 1 % (0-3); EOS % 2 % (0-3); HEMATOCRIT 30.5 % (36.0-47.0); HEMOGLOBIN 10.2 g/dL (12.0-15.5); LYMPH # 4.6 x10^3/uL (1.0-4.8); LYMPH % 37 % (24-48); MEAN CORPUSCULAR HEMOGLOBIN 29 pg (25-35); MEAN CORPUSCULAR HGB CONC 33 g/dL (31-37); MEAN CORPUSCULAR VOLUME 88 fL (79-100); MONO % 7 % (0-9); NEUT % 54 % (31-73); PLATELET COUNT 207 x10^3/uL (140-400); RED BLOOD COUNT 3.47 x10^6/uL (3.50-5.40); WHITE BLOOD COUNT 12.5 x10^3/uL (4.0-11.0)
[2016-12-26 23:29] LABS: CALCIUM 8.8 mg/dL (8.5-10.1); CREATININE 1.9 mg/dL (0.6-1.0); GFR 33.3; POTASSIUM 4.8 mmol/L (3.5-5.1)
[2016-12-26 23:35] LABS: ALBUMIN 3.1 g/dL (3.4-5.0); ALBUMIN/GLOBULIN RATIO 0.9 (1.0-1.7); TOTAL BILIRUBIN 0.1 mg/dL (0.2-1.0); TOTAL PROTEIN 6.5 g/dL (6.4-8.2)
--- NOTE | 2016-12-27 00:13 | PHYS DOC ---
Past Medical History Past Medical History: Diabetes-Type II, Fibromyalgia, Glaucoma, Hypertension, Other Additional Past Medical Histor: neuropathy, cataracts,CHRONIC PAIN Past Surgical History: Hysterectomy Alcohol Use: None Drug Use: None Adult General Chief Complaint Chief Complaint: MULTIPLE COMPLAINTS HPI HPI Patient is a 56 year old female who presents with bilateral foot pain & swelling. She reports 1 week history of pain in both feet with calf swelling which is worse on the left, associated with pain with ambulation. She reports dry cough for same duration. She denies fevers/chills, chest pain, shortness of breath, abdominal pain, vomiting, extremity numbness/weakness. She has history of diabetes, hypertension, fibromyalgia, neuropathy, chronic pain. She denies history of DVT/PE or CHF. She usually takes lyrica but didn't take it today because she didn't think it would help. Review of Systems Review of Systems Constitutional: Denies fever or chills Eyes: Denies change in visual acuity HENT: Denies nasal congestion or sore throat Respiratory: Reports cough, denies shortness of breath Cardiovascular: Denies chest pain or edema GI: Denies abdominal pain, nausea, vomiting, or diarrhea Musculoskeletal: Reports foot pain Integument: Denies rash or skin lesions Neurologic: Denies headache, focal weakness or sensory changes Current Medications Current Medications Current Medications Medications (Trade) Dose Ordered Sig/Clarence Start Time Stop Time Status Last Admin Dose Admin Acetaminophen/ Hydrocodone Bitart (Lortab 5/325) 1 tab 1X ONCE 12/26/16 23:00 12/26/16 23:01 DC 12/26/16 22:57 1 TAB Allergies Allergies Allergies Coded Allergies Type Severity Reaction Last Updated Verified No Known Drug Allergies 05/29/13 No Physical Exam Physical Exam Constitutional: Well developed, well nourished, no acute distress, non-toxic appearance. HENT: Normocephalic, atraumatic, bilateral external ears normal, oropharynx moist, nose normal. Eyes: conjunctiva normal, no discharge. Neck: supple, no stridor. Cardiovascular: RRR, no murmurs, no edema. Lungs & Thorax: LCTAB, no wheezing, no respiratory distress. Abdomen: soft, nontender, nondistended. Skin: Warm, dry, no erythema, no rash. Back: No tenderness. Extremities: left greater than right calf tenderness without obvious edema or asymmetry, very slight 1+ nonpitting edema to bilateral feet without focal bony tenderness to foot or ankle, distal pulses palpable with intact sensation to bilateral feet. Neurologic: Alert and oriented X 3, no focal deficits noted. Psychologic: Affect normal, judgement normal, mood normal. Current Patient Data Vital Signs Vital Signs Date Time Temp Pulse Resp B/P (MAP) Pulse Ox O2 Delivery O2 Flow Rate FiO2 12/27/16 00:50 84 140/73 (95) 98 Room Air 12/27/16 00:15 16 12/26/16 22:22 98.7 98.7 Lab Values Laboratory Tests Test 12/26/16 23:07 White Blood Count 12.5 x10^3/uL (4.0-11.0) H Red Blood Count 3.47 x10^6/uL (3.50-5.40) L Hemoglobin 10.2 g/dL (12.0-15.5) L Hematocrit 30.5 % (36.0-47.0) L Mean Corpuscular Volume 88 fL (79-100) Mean Corpuscular Hemoglobin 29 pg (25-35) Mean Corpuscular Hemoglobin Concent 33 g/dL (31-37) Red Cell Distribution Width 15.0 % (11.5-14.5) H Platelet Count 207 x10^3/uL (140-400) Neutrophils (%) (Auto) 54 % (31-73) Lymphocytes (%) (Auto) 37 % (24-48) Monocytes (%) (Auto) 7 % (0-9) Eosinophils (%) (Auto) 2 % (0-3) Basophils (%) (Auto) 1 % (0-3) Neutrophils # (Auto) 6.7 x10^3uL (1.8-7.7) Lymphocytes # (Auto) 4.6 x10^3/uL (1.0-4.8) Monocytes # (Auto) 0.8 x10^3/uL (0.0-1.1) Eosinophils # (Auto) 0.2 x10^3/uL (0.0-0.7) Basophils # (Auto) 0.1 x10^3/uL (0.0-0.2) Sodium Level 140 mmol/L (136-145) Potassium Level 4.8 mmol/L (3.5-5.1) Chloride Level 107 mmol/L (98-107) Carbon Dioxide Level 23 mmol/L (21-32) Anion Gap 10 (6-14) Blood Urea Nitrogen 40 mg/dL (7-20) H Creatinine 1.9 mg/dL (0.6-1.0) H Estimated GFR (Cockcroft-Gault) 33.3 BUN/Creatinine Ratio 21 (6-20) H Glucose Level 169 mg/dL (70-99) H Calcium Level 8.8 mg/dL (8.5-10.1) Total Bilirubin 0.1 mg/dL (0.2-1.0) L Aspartate Amino Transferase (AST) 24 U/L (15-37) Alanine Aminotransferase (ALT) 27 U/L (14-59) Alkaline Phosphatase 93 U/L (46-116) Troponin I Quantitative < 0.017 ng/mL (0.000-0.055) OS-Xll-F-Type Natriuretic Peptide 406 pg/mL (0-124) H Total Protein 6.5 g/dL (6.4-8.2) Albumin 3.1 g/dL (3.4-5.0) L Albumin/Globulin Ratio 0.9 (1.0-1.7) L Laboratory Tests 12/26/16 23:07 Laboratory Tests 12/26/16 23:07 EKG EKG interpreted by me: NSR rate 81, no acute ST/T wave changes, normal intervals, no ectopy.[] Radiology/Procedures Radiology/Procedures Chest x-ray, portable: Interpreted by me: No cardiomegaly, no infiltrate, no pneumothorax, no acute process[] Course & Med Decision Making Course & Med Decision Making Pertinent Labs and Imaging studies reviewed. (See chart for details) The patient presents with bilateral foot pain as well as cough. She received pain medication. Labs, EKG, CXR, venous ultrasound show no serious etiology of symptoms. She was ambulatory to the restroom with steady gait. Recommend supportive care for upper respiratory infection - smoking cessation, hydration, tylenol/ibuprofen. Try to elevate lower extremities, try compression stockings. Follow up with PCP in 2-3 days. Come back for severe shortness of breath or chest pain, or any otherwise worsening condition. Discharged home in stable condition. [] Dragon Disclaimer Dragon Disclaimer This electronic medical record was generated, in whole or in part, using a voice recognition dictation system. Departure Departure Impression: Primary Impression: Peripheral neuropathy Additional Impression: Peripheral edema Disposition: 01 HOME, SELF-CARE Condition: STABLE Referrals: NO PCP (PCP) ADALBERTO BROWNLEE MD Patient Instructions: Pain, Neuropathic, Peripheral Edema Additional Instructions: You were seen in the emergency department today for foot pain. Your tests did not show a serious cause of symptoms. Please rest, drink fluids, take all medications as prescribed, use norco for severe pain. No drinking alcohol or driving while taking norco. Elevate legs, wear compression stockings, follow up with primary care physician such as Dr. Brownlee in 2-3 days. You may need further evaluation for elevated creatinine which is a kidney test. Come back for severe chest pain or shortness of breath, numbness or weakness in arms or legs, any otherwise worsening condition. Discharged home in stable condition. Scripts Hydrocodone/Apap 5-325 (NORCO 5-325 TABLET) 1 Each Tablet 1 TAB PO PRN Q6HRS Y for PAIN, #10 TAB 0 Refills Prov: ASTRID STOVALL MD 12/27/16 Problem Qualifiers ASTRID STOVALL MD Dec 27, 2016 00:13
--- NOTE | 2016-12-27 00:23 | RAD ---
Left lower extremity venous Doppler: Reason for examination: Left leg pain with swelling. The left lower extremity venous system was evaluated from the common femoral and greater saphenous veins distally to the calf veins with grayscale imaging, color-flow imaging and spectral analysis. There appears to be normal venous blood flow with no evidence of deep venous thrombosis. There is normal response of the venous system to compression and augmentation. IMPRESSION: No deep venous thrombosis in left lower extremity. Electronically signed by: Brenna Sarkar MD (12/27/2016 12:19 AM) [id number]
[2016-12-27] MEDS ORDERED: HYDR-971 PO (00:43)
[2016-12-27 00:50] VITALS: BP 140/73
--- NOTE | 2016-12-27 07:00 | EKG ---
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
--- NOTE | 2016-12-27 08:09 | RAD ---
Chest x-ray Indication: Chronic cough, congestion, bilateral lower extremity swelling. History of hypertension, diabetes and asthma. Technique: Portable AP upright chest x-ray Comparison: 02/15/2016 Findings: Heart is top normal in size. Mild interstitial opacities are seen in the bilateral lower lung zones with superimposed patchy opacity in the left costophrenic region. No pneumothorax or pleural effusion. Stable degenerative changes in the greater tubercle of the right humerus. Impression: Mild bilateral lower lung zone interstitial opacities with patchy opacity in the left costophrenic region may represent viral or atypical infection.
== END 2016-12-27 00:53 | disposition home or self-care (01) ==
LOC: ER 21:29
DX: E11.42 Type 2 diabetes mellitus with diabetic polyneuropathy (principal); R60.0 Localized edema; R05 Cough; M79.7 Fibromyalgia; E11.36 Type 2 diabetes mellitus with diabetic cataract; E11.39 Type 2 diabetes mellitus with other diabetic ophthalmic complication; H40.9 Unspecified glaucoma; G89.29 Other chronic pain; I10 Essential (primary) hypertension; Z98.49 Cataract extraction status, unspecified eye; Z90.710 Acquired absence of both cervix and uterus
CPT/HCPCS: 36415; 71010; 80053; 83880; 84484; 85025; 93005; 93971; 99285-25

== ENCOUNTER 2017-01-13 19:01 | Emergency (ER) | payer OTHER ==
[~2017-01-13] VITALS: Ht 157.5 cm; Wt 65.8 kg
[2017-01-13 19:30] VITALS: BP 140/110
[2017-01-13] MEDS ORDERED: SULF1TAB23 PO (19:57)
--- NOTE | 2017-01-13 19:57 | PHYS DOC ---
Past Medical History Past Medical History: Diabetes-Type II, Fibromyalgia, Glaucoma, Hypertension, Other Additional Past Medical Histor: neuropathy, cataracts,CHRONIC PAIN Past Surgical History: Hysterectomy Alcohol Use: None Drug Use: None Adult General Chief Complaint Chief Complaint: INSECT BITE HPI HPI Patient is a 56 year old female presents to the ED complaining of insect bite x 2 days. States she was bit on her left lower leg and has had increase redness surrounding the bite. Denies fever, headache, nausea/vomiting, abdominal pain, dizziness, weakness, chest pain or shortness of breath. Review of Systems Review of Systems Constitutional: Denies fever or chills [] Eyes: Denies change in visual acuity, redness, or eye pain [] HENT: Denies nasal congestion or sore throat [] Respiratory: Denies cough or shortness of breath [] Cardiovascular: No additional information not addressed in HPI [] GI: Denies abdominal pain, nausea, vomiting, bloody stools or diarrhea [] : Denies dysuria or hematuria [] Musculoskeletal: Denies back pain or joint pain [] Integument: Denies rash or skin lesions [] Neurologic: Denies headache, focal weakness or sensory changes [] Endocrine: Denies polyuria or polydipsia [] Allergies Allergies Allergies Coded Allergies Type Severity Reaction Last Updated Verified No Known Drug Allergies 05/29/13 No Physical Exam Physical Exam Constitutional: Well developed, well nourished, no acute distress, non-toxic appearance. [] HENT: Normocephalic, atraumatic, bilateral external ears normal, oropharynx moist, no oral exudates, nose normal. [] Eyes: PERRLA, EOMI, conjunctiva normal, no discharge. [] Neck: Normal range of motion, no tenderness, supple, no stridor. [] Cardiovascular:Heart rate regular rhythm, no murmur [] Lungs & Thorax: Bilateral breath sounds clear to auscultation [] Abdomen: Bowel sounds normal, soft, no tenderness, no masses, no pulsatile masses. [] Skin: Warm, dry, SMALL INSECT BITE WITH MINIMAL SURROUNDING ERYTHEMA CONSISTENT WITH CELLULITIS. [] Back: No tenderness, no CVA tenderness. [] Extremities: No tenderness, no cyanosis, no clubbing, ROM intact, no edema. [] Neurologic: Alert and oriented X 3, normal motor function, normal sensory function, no focal deficits noted. [] Psychologic: Affect normal, judgement normal, mood normal. [] Current Patient Data Vital Signs Vital Signs Date Time Temp Pulse Resp B/P (MAP) Pulse Ox O2 Delivery O2 Flow Rate FiO2 01/13/17 19:30 98.2 100 20 99 Room Air 98.2 EKG EKG [] Radiology/Procedures Radiology/Procedures [] Course & Med Decision Making Course & Med Decision Making Pertinent Labs and Imaging studies reviewed. (See chart for details) []Patient states similar symptoms in the past that were alleviated with antibiotic. Will treat with Bactrim. Discussed follow-up outpatient for wound reevaluation. Discussed reasons to return to the ED. Patient understands and agrees with plan. Dragon Disclaimer Dragon Disclaimer This electronic medical record was generated, in whole or in part, using a voice recognition dictation system. Departure Departure Impression: Primary Impression: Insect bite Additional Impression: Cellulitis Disposition: 01 HOME, SELF-CARE Condition: STABLE Referrals: NO PCP (PCP) MARQUISE LAM MD Patient Instructions: Cellulitis, Insect Bite Scripts Sulfamethoxazole/Trimethoprim (BACTRIM 400-80 MG TABLET) 1 Each Tablet 1 TAB PO BID, #20 TAB Prov: ANDREA RIBEIRO 01/13/17 Problem Qualifiers ANDREA RIBEIRO Jan 13, 2017 19:57
== END 2017-01-13 20:02 | disposition home or self-care (01) ==
LOC: ER 19:01
DX: S80.862A Insect bite (nonvenomous), left lower leg, initial encounter (principal); L03.116 Cellulitis of left lower limb; M79.7 Fibromyalgia; E11.39 Type 2 diabetes mellitus with other diabetic ophthalmic complication; H40.9 Unspecified glaucoma; I10 Essential (primary) hypertension; G89.29 Other chronic pain; E11.40 Type 2 diabetes mellitus with diabetic neuropathy, unspecified; E11.36 Type 2 diabetes mellitus with diabetic cataract; W57.XXXA Bitten or stung by nonvenomous insect and other nonvenomous arthropods, initial encounter; Y93.89 Activity, other specified; Y92.89 Other specified places as the place of occurrence of the external cause; Y99.8 Other external cause status
CPT/HCPCS: 99283

== ENCOUNTER → 2017-03-01 | Outpatient (CLI) | payer OTHER ==
[2017-02-03 00:58] VITALS: BP 157/88
[~2017-03-01] MED LIST changes: +SULF1TAB23 PO
--- NOTE | 2017-03-01 09:12 | RAD ---
Right shoulder, 3 views, 03/01/2017: History: Shoulder pain, remote fall Comparison is made to a study from 02/28/2016. There is an unchanged impaction type defect along the lateral margin of the humeral head. There are calcifications in the soft tissues at this level extending superiorly over the humeral head. These probably represent a combination of nonunited fracture fragments and rotator cuff calcifications. No new fracture or dislocation is identified. IMPRESSION: 1. Old greater tuberosity region fracture with nonunited fracture fragments and probable adjacent tendinous calcifications. 2. No new abnormality is detected.
== END | disposition home or self-care (01) ==
LOC: RAD 08:40
PROVIDERS: ATTEND Pediatrics
DX: S42.252D Displaced fracture of greater tuberosity of left humerus, subsequent encounter for fracture with routine healing (principal); X58.XXXD Exposure to other specified factors, subsequent encounter
CPT/HCPCS: 73030

== ENCOUNTER → 2017-03-13 | Outpatient (CLI) | payer OTHER ==
[2017-02-03 00:58] VITALS: BP 157/88
--- NOTE | 2017-03-13 13:07 | RAD ---
DATE: 03/13/2017 EXAM: DIGITAL SCREEN BILAT W/CAD HISTORY: Screening mammogram COMPARISON: Previous mammogram from 2016 This study was interpreted with the benefit of Computerized Aided Detection (CAD). FINDINGS: Breast Density: SCATTERED The breast parenchyma shows scattered fibroglandular densities. Breast parenchyma level B. The skin and nipples are within normal limits. No suspicious calcifications, spiculated masses or areas of architectural distortion. Stable nodular density in the upper outer quadrant of the right breast likely intraparenchymal lymph node. IMPRESSION: No mammographic evidence of malignancy. Stable mammogram. BI-RADS CATEGORY: 2 BENIGN FINDING(S) RECOMMENDED FOLLOW-UP: 12M 12 MONTH FOLLOW-UP PQRS compliance statement: Patient information was entered into a reminder system with a target due date for the next mammogram. Mammography is a sensitive method for finding small breast cancers, but it does not detect them all and is not a substitute for careful clinical examination. A negative mammogram does not negate a clinically suspicious finding and should not result in delay in biopsying a clinically suspicious abnormality. "Our facility is accredited by the [employer] Mammography Program."
--- NOTE | 2017-03-13 16:26 | RAD ---
Ultrasound of the right neck 03/13/2017 Clinical history: Right neck swelling. Technique: A real-time ultrasound examination of the right neck in the area of the patient's swelling was performed. Multiple images were obtained. Findings: No solid mass, abnormal fluid collection or cervical lymphadenopathy is seen within the visualized portion of the right neck. Impression: Negative study.
== END | disposition home or self-care (01) ==
LOC: MAMMO 09:03
PROVIDERS: ATTEND Pediatrics
DX: Z12.31 Encounter for screening mammogram for malignant neoplasm of breast (principal); R22.1 Localized swelling, mass and lump, neck
CPT/HCPCS: 76536; G0202; 77067

== ENCOUNTER 2017-05-17 12:18 | Inpatient (IN) | payer OTHER ==
[2017-05-17] MEDS: IPRATRPIUM/ALBUTEROL 0.5/2.5MG 3 ML NEBU. NEB ×2 (12:46→14:56)
[2017-05-17 12:53] LABS: ADD MAN DIFF? NO
[2017-05-17] MEDS: HYDROcodone/APAP 5/325MG 1 TAB TABLET PO ×2 (12:54→16:31)
[2017-05-17 12:58] LABS: BASO # 0.1 x10^3/uL (0.0-0.2); BASO % 1 % (0-3); EOS # 0.2 x10^3/uL (0.0-0.7); EOS % 2 % (0-3); HEMATOCRIT 31.5 % (36.0-47.0); HEMOGLOBIN 10.7 g/dL (12.0-15.5); LYMPH # 2.2 x10^3/uL (1.0-4.8); LYMPH % 18 % (24-48); MEAN CORPUSCULAR HEMOGLOBIN 30 pg (25-35); MEAN CORPUSCULAR HGB CONC 34 g/dL (31-37); MEAN CORPUSCULAR VOLUME 87 fL (79-100); MONO # 0.6 x10^3/uL (0.0-1.1); MONO % 5 % (0-9); NEUT # 9.2 x10^3uL (1.8-7.7); NEUT % 74 % (31-73); PLATELET COUNT 275 x10^3/uL (140-400); RED BLOOD COUNT 3.61 x10^6/uL (3.50-5.40); RED CELL DISTRIBUTION WIDTH 15.3 % (11.5-14.5); WHITE BLOOD COUNT 12.4 x10^3/uL (4.0-11.0)
[2017-05-17 13:12] LABS: D-DIMER 2.67 ug/mlFEU (0.00-0.50)
[2017-05-17 13:15] LABS: ANION GAP 11 (6-14); BLOOD UREA NITROGEN 41 mg/dL (7-20); BUN/CREATININE RATIO 15 (6-20); CARBON DIOXIDE 21 mmol/L (21-32); CHLORIDE 107 mmol/L (98-107); CREATININE 2.8 mg/dL (0.6-1.0); GFR 21.3; GLUCOSE 242 mg/dL (70-99); POTASSIUM 5.2 mmol/L (3.5-5.1); SODIUM 139 mmol/L (136-145)
[2017-05-17 13:21] LABS: ALBUMIN 2.1 g/dL (3.4-5.0); ALBUMIN/GLOBULIN RATIO 0.7 (1.0-1.7); ALK PHOS 106 U/L (46-116); ALT (SGPT) 23 U/L (14-59); AST (SGOT) 33 U/L (15-37); TOTAL BILIRUBIN < 0.1 mg/dL (0.2-1.0); TOTAL PROTEIN 5.2 g/dL (6.4-8.2)
[2017-05-17 13:23] LABS: TROPONINI < 0.017 ng/mL (0.000-0.055)
[2017-05-17 13:26] LABS: NT-PRO BNP 989 pg/mL (0-124)
[2017-05-17] MEDS: FUROSEMIDE 20 MG/2 ML VIAL. IVP (14:01)
[2017-05-17] MEDS ORDERED: ONDANSETRON PF 4 MG/2 ML VIAL. IV (20:30)
[2017-05-17] MEDS ORDERED: HYDROcodone/APAP 5/325MG 1 TAB TABLET PO (22:00)
[2017-05-17] MEDS ORDERED: MORPHINE SULFATE 2 MG/ML DISP.SYRIN. IV (22:30)
[2017-05-17] MEDS: MORPHINE SULFATE 4 MG/ML DISP.SYRIN. IV (22:53)
[2017-05-18] MEDS: LISINOPRIL 5 MG TABLET. PO ×2 (04:22→10:03)
[2017-05-18] MEDS: MORPHINE SULFATE 4 MG/ML DISP.SYRIN. IV (04:24)
[2017-05-18 06:10] LABS: ADD MAN DIFF? NO
[2017-05-18 06:22] LABS: BASO # 0.1 x10^3/uL (0.0-0.2); BASO % 1 % (0-3); EOS # 0.1 x10^3/uL (0.0-0.7); EOS % 1 % (0-3); HEMATOCRIT 33.4 % (36.0-47.0); HEMOGLOBIN 11.1 g/dL (12.0-15.5); LYMPH # 2.5 x10^3/uL (1.0-4.8); LYMPH % 26 % (24-48); MEAN CORPUSCULAR HEMOGLOBIN 29 pg (25-35); MEAN CORPUSCULAR HGB CONC 33 g/dL (31-37); MEAN CORPUSCULAR VOLUME 88 fL (79-100); MONO # 0.7 x10^3/uL (0.0-1.1); MONO % 7 % (0-9); NEUT # 6.2 x10^3uL (1.8-7.7); NEUT % 65 % (31-73); PLATELET COUNT 255 x10^3/uL (140-400); RED BLOOD COUNT 3.81 x10^6/uL (3.50-5.40); WHITE BLOOD COUNT 9.6 x10^3/uL (4.0-11.0)
[2017-05-18 06:50] LABS: ANION GAP 7 (6-14); BLOOD UREA NITROGEN 35 mg/dL (7-20); CALCIUM 8.3 mg/dL (8.5-10.1); CARBON DIOXIDE 24 mmol/L (21-32); CHLORIDE 111 mmol/L (98-107); CREATININE 2.5 mg/dL (0.6-1.0); GFR 24.3; GLUCOSE 179 mg/dL (70-99); POTASSIUM 4.5 mmol/L (3.5-5.1); SODIUM 142 mmol/L (136-145)
[2017-05-18] MEDS: IPRATRPIUM/ALBUTEROL 0.5/2.5MG 3 ML NEBU. NEB ×2 (07:30→12:00)
[2017-05-18] MEDS ORDERED: MAGNESIUM SULFATE 2GM 50 ML IV (09:00)
[2017-05-18 09:27] LABS: RETIC COUNT 2.1 % (0.5-2.5)
[2017-05-18] MEDS ORDERED: ONDANSETRON PF 4 MG/2 ML VIAL. IV (09:30)
[2017-05-18] MEDS ORDERED: DEXTROSE 50% 25 GM / 50ML DISP.SYRIN. IV (09:30)
[2017-05-18] MEDS ORDERED: cloNIDine HCL 0.1 MG TABLET PO (09:30)
[2017-05-18 09:38] LABS: % SAT IRON 17 % (15-34); IRON,SERUM 39 ug/dL (50-170)
[2017-05-18 09:42] LABS: TROPONINI < 0.017 ng/mL (0.000-0.055)
[2017-05-18 09:53] LABS: FERRITIN 72 ng/mL (8-252)
[2017-05-18 11:33] LABS: CHOLESTEROL 291 mg/dL (0-200); HDLC 45 mg/dL (40-60); LDLC 177 mg/dL (0-100); NON-HDL CHOLESTEROL 246 mg/dL (0-129); TRIGLYCERIDES 347 mg/dL (0-150); VLDLC 69 mg/dL (0-40)
[2017-05-18 11:34] LABS: CHOLESTEROL/HDL RATIO 6.5
[2017-05-18 11:42] LABS: THYROID STIM HORMONE (TSH) 6.588 uIU/mL (0.358-3.74)
[2017-05-18] MEDS ORDERED: ASPIRIN ENTERIC COATED 81 MG TABLET.DR. PO (12:00)
[2017-05-18] MEDS ORDERED: INSULIN ASPART 300 UNITS/3 ML INSULN.PEN SQ (12:00)
[2017-05-18] MEDS ORDERED: HALOPERIDOL LACTATE 5 MG/ML VIAL. IVP (12:15)
[2017-05-18] MEDS ORDERED: ATORVASTATIN CALCIUM 40 MG TABLET. PO (21:00)
[2017-05-19 00:11] LABS: HEMOGLOBIN A1C 8.7 % (4.8-5.6)
== END 2017-05-18 12:30 | disposition left against medical advice (07) | DRG 682 ==
LOC: ER 12:18 → ED HOLD 16:30 → 5 SOUTH 21:21
DX: N17.9 Acute kidney failure, unspecified (principal); I50.31 Acute diastolic (congestive) heart failure; E11.22 Type 2 diabetes mellitus with diabetic chronic kidney disease; E11.65 Type 2 diabetes mellitus with hyperglycemia; I50.33 Acute on chronic diastolic (congestive) heart failure; I13.0 Hypertensive heart and chronic kidney disease with heart failure and stage 1 through stage 4 chronic kidney disease, or unspecified chronic kidney disease; D63.8 Anemia in other chronic diseases classified elsewhere; E78.5 Hyperlipidemia, unspecified; F17.210 Nicotine dependence, cigarettes, uncomplicated; H40.9 Unspecified glaucoma; F41.9 Anxiety disorder, unspecified; J44.9 Chronic obstructive pulmonary disease, unspecified; N18.9 Chronic kidney disease, unspecified; N20.0 Calculus of kidney; Z79.1 Long term (current) use of non-steroidal anti-inflammatories (NSAID); Z87.01 Personal history of pneumonia (recurrent); Z53.21 Procedure and treatment not carried out due to patient leaving prior to being seen by health care provider; Z90.710 Acquired absence of both cervix and uterus; M19.90 Unspecified osteoarthritis, unspecified site; Z87.81 Personal history of (healed) traumatic fracture
CPT/HCPCS: 36415; 71045; 78582; 80048; 80053; 80061; 82728; 83036; 83540; 83550; 83880; 84443; 84484; 85025; 85045; 85379; 93005; 93970; 94640; 96374; 99285; 99285-25; A9540; A9558; J1815; J2270; J7620

== ENCOUNTER 2017-12-31 10:34 | Emergency (ER) | payer OTHER ==
[~2017-12-31] VITALS: Ht 157.5 cm; Wt 74.8 kg
[~2017-12-31 10:34] MED LIST changes: +AMLO5TAB7; +ATOR40TA59; +FURO40TA4; +GABA100C6; +LATA2.5D3 EACHEYE; +LIPA1CAP2 PO; +METO5TAB
[2017-12-31] MEDS ORDERED: IV NORMAL SALINE 1000ML BAG 1,000 ML IV SCH (10:48)
[2017-12-31] MEDS ORDERED: ONDANSETRON PF 4 MG/2 ML VIAL. IV ONE (11:00)
[2017-12-31] MEDS ORDERED: MORPHINE SULFATE 4 MG/ML VIAL. IV ONE (12:00)
[2017-12-31 12:10] VITALS: BP 180/95
[2017-12-31 12:25] LABS: BASO # 0.1 x10^3/uL (0.0-0.2); BASO % 1 % (0-3); EOS % 1 % (0-3); HEMATOCRIT 31.3 % (36.0-47.0); HEMOGLOBIN 10.6 g/dL (12.0-15.5); LYMPH # 1.5 x10^3/uL (1.0-4.8); LYMPH % 15 % (24-48); MEAN CORPUSCULAR HEMOGLOBIN 30 pg (25-35); MEAN CORPUSCULAR HGB CONC 34 g/dL (31-37); MEAN CORPUSCULAR VOLUME 88 fL (79-100); MONO # 0.5 x10^3/uL (0.0-1.1); MONO % 6 % (0-9); NEUT # 7.6 x10^3uL (1.8-7.7); NEUT % 78 % (31-73); PLATELET COUNT 372 x10^3/uL (140-400); RED BLOOD COUNT 3.54 x10^6/uL (3.50-5.40); RED CELL DISTRIBUTION WIDTH 14.8 % (11.5-14.5); WHITE BLOOD COUNT 9.7 x10^3/uL (4.0-11.0)
[2017-12-31 12:36] LABS: PROTHROMBIN TIME PATIENT 12.7 SEC (11.7-14.0)
[2017-12-31 12:38] LABS: CALCIUM 8.6 mg/dL (8.5-10.1); CREATININE 4.8 mg/dL (0.6-1.0); GFR 11.4; POTASSIUM 4.2 mmol/L (3.5-5.1)
[2017-12-31 12:44] LABS: ALBUMIN/GLOBULIN RATIO 0.5 (1.0-1.7); TOTAL BILIRUBIN 0.2 mg/dL (0.2-1.0); TOTAL PROTEIN 6.1 g/dL (6.4-8.2)
--- NOTE | 2017-12-31 12:53 | RAD ---
EXAM: Two view abdomen with one view chest HISTORY: Abdominal pain, nausea/vomiting. COMPARISON: 09/23/2017. FINDINGS: A frontal view of the chest and supine/upright views of the abdomen are obtained. There are no confluent infiltrates. There is no pneumothorax or pleural effusion. The heart is mildly enlarged. There appears to be a moderate to large right Hill-Sachs deformity. There is no pneumoperitoneum. There are no distended small bowel loops or significant air-fluid levels. There is gas distally. Surgical clips are noted in the right upper quadrant and right midabdomen. Atherosclerotic calcifications are noted. There is a mild lumbar levocurvature. IMPRESSION: 1. Mild cardiomegaly. 2. No evidence of obstruction. Electronically signed by: Gilbert Olmedo MD (12/31/2017 12:50 PM) [facility]
--- NOTE | 2017-12-31 13:08 | EKG ---
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
[2017-12-31] MEDS ORDERED: METOCLOPRAMIDE HCL 10 MG/2 ML VIAL. IV ONE (13:30)
[2017-12-31] MEDS ORDERED: fentaNYL PF VIAL 100 MCG/2 ML VIAL IV ONE (13:30)
--- NOTE | 2017-12-31 14:13 | PHYS DOC ---
Past Medical History Past Medical History: Diabetes-Type II, Glaucoma, Hypertension, Hypothyroid, Renal Disease Additional Past Medical Histor: neuropathy, cataracts,CHRONIC PAIN Past Surgical History: Hysterectomy Additional Past Surgical Histo: PT POOR HISTORIAN Alcohol Use: None Drug Use: None Adult General Chief Complaint Chief Complaint: NAUSEA/VOMITING/DIARRHA HPI HPI Patient is a 57 year old female was brought here by EMS for evaluation of nausea, vomiting, diarrhea for the last 6 days. Patient also complaint of epigastric this abdominal pain after many episodes of vomiting. Patient denies any fever, no chest pain, no trouble breathing. Patient has history of chronic renal insufficiency, was recommended by nephrology for dialysis but she declined. She denied that she had been on any antibiotics recently. Review of Systems Review of Systems Constitutional: Denies fever or chills [] Eyes: Denies change in visual acuity, redness, or eye pain [] HENT: Denies nasal congestion or sore throat [] Respiratory: Denies cough or shortness of breath [] Cardiovascular: No additional information not addressed in HPI [] GI: POSITIVE FOR abdominal pain, nausea, vomiting,AND diarrhea [] : Denies dysuria or hematuria [] Musculoskeletal: Denies back pain or joint pain [] Integument: Denies rash or skin lesions [] Neurologic: Denies headache, focal weakness or sensory changes [] Endocrine: Denies polyuria or polydipsia [] All other systems were reviewed and found to be within normal limits, except as documented in this note. Current Medications Current Medications Current Medications Medications (Trade) Dose Ordered Sig/Clarence Start Time Stop Time Status Last Admin Dose Admin Fentanyl Citrate (Fentanyl 2ml Vial) 50 mcg 1X ONCE 12/31/17 13:30 12/31/17 13:31 DC 12/31/17 13:36 50 MCG Metoclopramide HCl (Reglan Vial) 10 mg 1X ONCE 12/31/17 13:30 12/31/17 13:31 DC 12/31/17 13:35 10 MG Morphine Sulfate (Morphine Sulfate) 4 mg 1X ONCE 12/31/17 12:00 12/31/17 12:01 DC 12/31/17 11:56 4 MG Ondansetron HCl (Zofran) 4 mg 1X ONCE 12/31/17 11:00 12/31/17 11:01 DC 12/31/17 11:54 4 MG Sodium Chloride 1,000 ml @ 100 mls/hr Q10H 12/31/17 10:48 12/31/17 20:47 12/31/17 11:55 100 MLS/HR Allergies Allergies Allergies Coded Allergies Type Severity Reaction Last Updated Verified No Known Drug Allergies 05/29/13 No Physical Exam Physical Exam Constitutional: Well developed, well nourished, no acute distress, non-toxic appearance. [] HENT: Normocephalic, atraumatic, bilateral external ears normal, oropharynx moist, no oral exudates, nose normal. [] Eyes: PERRLA, EOMI, conjunctiva normal, no discharge. [] Neck: Normal range of motion, no tenderness, supple, no stridor. [] Cardiovascular:Heart rate regular rhythm, no murmur [] Lungs & Thorax: Bilateral breath sounds clear to auscultation [] Abdomen: Bowel sounds normal, soft, Tender to palpation in epigastric area. no masses, no pulsatile masses. [] Skin: Warm, dry, no erythema, no rash. [] Back: No tenderness, no CVA tenderness. [] Extremities: No tenderness, no cyanosis, no clubbing, ROM intact, no edema. [] Neurologic: Alert and oriented X 3, normal motor function, normal sensory function, no focal deficits noted. [] Psychologic: Affect normal, judgement normal, mood normal. [] Current Patient Data Vital Signs Vital Signs Date Time Temp Pulse Resp B/P (MAP) Pulse Ox O2 Delivery O2 Flow Rate FiO2 12/31/17 13:36 20 98 Room Air 12/31/17 12:10 89 180/95 (123) 12/31/17 11:00 97.7 97.7 Lab Values Laboratory Tests Test 12/31/17 12:16 White Blood Count 9.7 x10^3/uL (4.0-11.0) Red Blood Count 3.54 x10^6/uL (3.50-5.40) Hemoglobin 10.6 g/dL (12.0-15.5) L Hematocrit 31.3 % (36.0-47.0) L Mean Corpuscular Volume 88 fL (79-100) Mean Corpuscular Hemoglobin 30 pg (25-35) Mean Corpuscular Hemoglobin Concent 34 g/dL (31-37) Red Cell Distribution Width 14.8 % (11.5-14.5) H Platelet Count 372 x10^3/uL (140-400) Neutrophils (%) (Auto) 78 % (31-73) H Lymphocytes (%) (Auto) 15 % (24-48) L Monocytes (%) (Auto) 6 % (0-9) Eosinophils (%) (Auto) 1 % (0-3) Basophils (%) (Auto) 1 % (0-3) Neutrophils # (Auto) 7.6 x10^3uL (1.8-7.7) Lymphocytes # (Auto) 1.5 x10^3/uL (1.0-4.8) Monocytes # (Auto) 0.5 x10^3/uL (0.0-1.1) Eosinophils # (Auto) 0.0 x10^3/uL (0.0-0.7) Basophils # (Auto) 0.1 x10^3/uL (0.0-0.2) Prothrombin Time 12.7 SEC (11.7-14.0) Prothrombin Time INR 1.0 (0.8-1.1) Sodium Level 141 mmol/L (136-145) Potassium Level 4.2 mmol/L (3.5-5.1) Chloride Level 108 mmol/L (98-107) H Carbon Dioxide Level 19 mmol/L (21-32) L Anion Gap 14 (6-14) Blood Urea Nitrogen 45 mg/dL (7-20) H Creatinine 4.8 mg/dL (0.6-1.0) H Estimated GFR (Cockcroft-Gault) 11.4 BUN/Creatinine Ratio 9 (6-20) Glucose Level 81 mg/dL (70-99) Calcium Level 8.6 mg/dL (8.5-10.1) Total Bilirubin 0.2 mg/dL (0.2-1.0) Aspartate Amino Transferase (AST) 28 U/L (15-37) Alanine Aminotransferase (ALT) 27 U/L (14-59) Alkaline Phosphatase 133 U/L (46-116) H Creatine Kinase 133 U/L (26-192) Creatine Kinase MB (Mass) 2.6 ng/mL (0.0-3.6) Creatine Kinase MB Relative Index 2.0 % (0-4) Troponin I Quantitative 0.017 ng/mL (0.000-0.055) CM-Jgz-R-Type Natriuretic Peptide 6462 pg/mL (0-124) H Total Protein 6.1 g/dL (6.4-8.2) L Albumin 2.0 g/dL (3.4-5.0) L Albumin/Globulin Ratio 0.5 (1.0-1.7) L Lipase 286 U/L (73-393) Laboratory Tests 12/31/17 12:16 Laboratory Tests 12/31/17 12:16 EKG EKG [] Radiology/Procedures Radiology/Procedures [][facility] [address] [place] [address] IMAGING REPORT Signed PATIENT: OTTONIEL SMITH ACCOUNT: [id number] : 1960 LOCATION: ER AGE: 57 SEX: F EXAM STATUS: REG ER ORD. PHYSICIAN: MERY AMAYA DO REASON: abdominal pain, nausea, vomiting PROCEDURE: CT ABDOMEN PELVIS WO CONTRAST EXAM: CT ABDOMEN/PELVIS WITHOUT CONTRAST. HISTORY: Abdominal pain, nausea/vomiting. TECHNIQUE: Computed tomography of the abdomen and pelvis was performed without intravenous contrast. COMPARISON: 09/23/2017. FINDINGS: Lung windows through the visualized portions of the bases reveal mild groundglass opacities in the left base, most likely indicating atelectasis. There is a calcified granuloma in the right base. Bone windows reveal severe degenerative disc disease at L2-3. There is a chronic nonunited fracture of the right femoral greater trochanter. There are no suspicious lesions.. The gallbladder is surgically absent. There are limitations from motion artifact. The liver, pancreas and adrenal glands are unremarkable without contrast. There are calcified granulomas in the spleen. There are no pathologically enlarged lymph nodes. Small calculi within both kidneys measure up to 2 mm on the right and <2 mm on the left. Calcifications along the course of the ureters are chronic and are likely within the gonadal vessels. No clear ureteral calculi are identified. There is no hydronephrosis. Dependent body wall edema suggests a component of anasarca. There is a small amount of pelvic ascites. There appears to be mild diffuse colonic wall thickening. There is no small bowel obstruction. Changes of appendectomy are suspected. IMPRESSION: 1. Tiny bilateral renal calculi measure 2 mm or less. No clear ureteral calculi or hydronephrosis. 2. Small ascites. Body wall edema. Correlate for volume overload. 3. Mild diffuse colonic wall thickening may reflect colitis or volume overload. Correlate with symptoms. 4. Correlate clinically to differentiate left lower lobe atelectasis from mild infiltrate. 5. Limitations from motion artifact. *One or more of the following individualized dose reduction techniques were utilized for this examination: 1. Automated exposure control. 2. Adjustment of the mA and/or kV according to patient size. 3. Use of iterative reconstruction technique. Electronically signed by: Gilbert Olmedo MD (12/31/2017 2:55 PM) [facility] DICTATED and SIGNED BY: INGRID OLMEDO MD DATE: 12/31/17 4304 Course & Med Decision Making Course & Med Decision Making Pertinent Labs and Imaging studies reviewed. (See chart for details) [] Dragon Disclaimer Dragon Disclaimer This electronic medical record was generated, in whole or in part, using a voice recognition dictation system. Departure Departure Impression: Primary Impression: Gastroenteritis Disposition: 01 HOME, SELF-CARE Condition: IMPROVED Referrals: RAJESH SINGH MD (PCP) follow up with your doctor in 2 days Patient Instructions: Nausea and Vomiting, Viral Gastroenteritis Scripts Metronidazole (FLAGYL) 500 Mg Tablet 500 MG PO TID for 7 Days, #21 TAB Prov: MERY AMAYA DO 12/31/17 Ondansetron (ZOFRAN ODT) 4 Mg Tab.rapdis 1 TAB SL Q8HRS PRN for NAUSEA, #15 TAB Prov: MERY AMAYA DO 12/31/17 MERY AMAYA DO Dec 31, 2017 14:13
--- NOTE | 2017-12-31 14:58 | RAD ---
EXAM: CT ABDOMEN/PELVIS WITHOUT CONTRAST. HISTORY: Abdominal pain, nausea/vomiting. TECHNIQUE: Computed tomography of the abdomen and pelvis was performed without intravenous contrast. COMPARISON: 09/23/2017. FINDINGS: Lung windows through the visualized portions of the bases reveal mild groundglass opacities in the left base, most likely indicating atelectasis. There is a calcified granuloma in the right base. Bone windows reveal severe degenerative disc disease at L2-3. There is a chronic nonunited fracture of the right femoral greater trochanter. There are no suspicious lesions.. The gallbladder is surgically absent. There are limitations from motion artifact. The liver, pancreas and adrenal glands are unremarkable without contrast. There are calcified granulomas in the spleen. There are no pathologically enlarged lymph nodes. Small calculi within both kidneys measure up to 2 mm on the right and <2 mm on the left. Calcifications along the course of the ureters are chronic and are likely within the gonadal vessels. No clear ureteral calculi are identified. There is no hydronephrosis. Dependent body wall edema suggests a component of anasarca. There is a small amount of pelvic ascites. There appears to be mild diffuse colonic wall thickening. There is no small bowel obstruction. Changes of appendectomy are suspected. IMPRESSION: 1. Tiny bilateral renal calculi measure 2 mm or less. No clear ureteral calculi or hydronephrosis. 2. Small ascites. Body wall edema. Correlate for volume overload. 3. Mild diffuse colonic wall thickening may reflect colitis or volume overload. Correlate with symptoms. 4. Correlate clinically to differentiate left lower lobe atelectasis from mild infiltrate. 5. Limitations from motion artifact. *One or more of the following individualized dose reduction techniques were utilized for this examination: 1. Automated exposure control. 2. Adjustment of the mA and/or kV according to patient size. 3. Use of iterative reconstruction technique. Electronically signed by: Gilbert Olmedo MD (12/31/2017 2:55 PM) [facility]
[2017-12-31] MEDS ORDERED: ONDA4TAB10 SL (15:15)
[2017-12-31] MEDS ORDERED: METR500T PO (15:15)
== END 2017-12-31 15:46 | disposition home or self-care (01) ==
LOC: ER 10:34
DX: K52.9 Noninfective gastroenteritis and colitis, unspecified (principal); E11.40 Type 2 diabetes mellitus with diabetic neuropathy, unspecified; E11.39 Type 2 diabetes mellitus with other diabetic ophthalmic complication; E03.9 Hypothyroidism, unspecified; G89.29 Other chronic pain; I10 Essential (primary) hypertension; N28.9 Disorder of kidney and ureter, unspecified; Z90.710 Acquired absence of both cervix and uterus
CPT/HCPCS: 36415; 74022; 74176; 80053; 82553; 83690; 83880; 84484; 85025; 85610; 93005; 96361; 96374; 96375; 99285; J2270; J2405; J2765; J3010; J7030

== ENCOUNTER 2018-01-14 16:14 | Emergency (ER) | payer OTHER ==
[~2018-01-14] VITALS: Ht 157.5 cm; Wt 74.8 kg
[~2018-01-14 16:14] MED LIST changes: +METR500T PO; +ONDA4TAB10 SL
--- NOTE | 2018-01-14 19:32 | PHYS DOC ---
Past Medical History Past Medical History: Diabetes-Type II, Glaucoma, Hypertension, Hypothyroid, Renal Disease Additional Past Medical Histor: neuropathy, cataracts,CHRONIC PAIN Past Surgical History: Hysterectomy Additional Past Surgical Histo: PT POOR HISTORIAN Alcohol Use: None Drug Use: None Adult General Chief Complaint Chief Complaint: LOWER EXTREMITY SWELLING HPI HPI Patient is a 57 year old AA female who presents to the ER with complaints of increased swelling and pain in her legs for the last 3-4 months. Pt states that it hurts so bad she can barely walk. She states that her blood sugars have been well controlled. She denies any abdominal pain, chest pain, shortness of breath , wheezing, nausea, vomiting, or diarrhea. She states that she has noticed slightly decreased urinary output. She denies any dysuria, hematuria, or incontinence. Currently, she rates her pain a 01/03. Review of Systems Review of Systems Constitutional: Denies fever or chills [] Eyes: Denies change in visual acuity, redness, or eye pain [] HENT: Denies nasal congestion or sore throat [] Respiratory: Denies cough or shortness of breath [] Cardiovascular: Denies chest pain or palpitations GI: Denies abdominal pain, nausea, vomiting, or diarrhea [] : Denies dysuria or hematuria [] Musculoskeletal: Denies back pain, reports bilateral leg pain and increased lower extremity swelling without any injury over the last 3-4 months Integument: Denies rash or skin lesions [] Neurologic: Denies headache, focal weakness or sensory changes [] Endocrine: Denies polyuria or polydipsia, reports well controlled blood sugars at home[] All other systems were reviewed and found to be within normal limits, except as documented in this note. Current Medications Current Medications Current Medications Medications (Trade) Dose Ordered Sig/[facility] Start Time Stop Time Status Last Admin Dose Admin Acetaminophen/ Hydrocodone Bitart (Lortab 5/325) 1 tab 1X ONCE 01/14/18 21:15 01/14/18 21:16 DC 01/14/18 21:13 1 TAB Fentanyl Citrate (Fentanyl 2ml Vial) 50 mcg 1X ONCE 01/14/18 20:00 01/14/18 20:01 DC 01/14/18 19:44 50 MCG Ondansetron HCl (Zofran) 4 mg 1X ONCE 01/14/18 21:00 01/14/18 21:01 DC 01/14/18 21:00 4 MG Allergies Allergies Allergies Coded Allergies Type Severity Reaction Last Updated Verified No Known Drug Allergies 05/29/13 No Physical Exam Physical Exam Constitutional: Well developed, well nourished, no acute distress, non-toxic appearance. [] HENT: Normocephalic, atraumatic, bilateral external ears normal, oropharynx moist, no oral exudates, nose normal. [] Eyes: PERRLA, EOMI, conjunctiva normal, no discharge. [] Neck: Normal range of motion, no tenderness, supple, no stridor. [] Cardiovascular:Heart rate regular rhythm, no murmur [] Lungs & Thorax: Bilateral breath sounds clear to auscultation [] Abdomen: Bowel sounds normal, soft, no tenderness, no masses, no pulsatile masses. [] Skin: Warm, dry, no erythema, no rash. [] Back: No tenderness, no CVA tenderness. [] Extremities: No tenderness, no cyanosis, no clubbing, ROM intact, no edema. [] Neurologic: Alert and oriented X 3, normal motor function, normal sensory function, no focal deficits noted. [] Psychologic: Affect normal, judgement normal, mood normal. [] Current Patient Data Vital Signs Vital Signs Date Time Temp Pulse Resp B/P (MAP) Pulse Ox O2 Delivery O2 Flow Rate FiO2 01/14/18 21:13 18 96 Room Air 01/14/18 20:33 92 164/87 (112) 01/14/18 17:15 98.1 98.1 Lab Values Laboratory Tests Test 01/14/18 19:28 White Blood Count 14.5 x10^3/uL (4.0-11.0) H Red Blood Count 3.76 x10^6/uL (3.50-5.40) Hemoglobin 11.2 g/dL (12.0-15.5) L Hematocrit 32.9 % (36.0-47.0) L Mean Corpuscular Volume 88 fL (79-100) Mean Corpuscular Hemoglobin 30 pg (25-35) Mean Corpuscular Hemoglobin Concent 34 g/dL (31-37) Red Cell Distribution Width 14.5 % (11.5-14.5) Platelet Count 406 x10^3/uL (140-400) H Neutrophils (%) (Auto) 68 % (31-73) Lymphocytes (%) (Auto) 23 % (24-48) L Monocytes (%) (Auto) 7 % (0-9) Eosinophils (%) (Auto) 1 % (0-3) Basophils (%) (Auto) 1 % (0-3) Neutrophils # (Auto) 9.8 x10^3uL (1.8-7.7) H Lymphocytes # (Auto) 3.3 x10^3/uL (1.0-4.8) Monocytes # (Auto) 0.9 x10^3/uL (0.0-1.1) Eosinophils # (Auto) 0.2 x10^3/uL (0.0-0.7) Basophils # (Auto) 0.2 x10^3/uL (0.0-0.2) Sodium Level 140 mmol/L (136-145) Potassium Level 4.9 mmol/L (3.5-5.1) Chloride Level 107 mmol/L (98-107) Carbon Dioxide Level 18 mmol/L (21-32) L Anion Gap 15 (6-14) H Blood Urea Nitrogen 43 mg/dL (7-20) H Creatinine 5.1 mg/dL (0.6-1.0) H Estimated GFR (Cockcroft-Gault) 10.6 BUN/Creatinine Ratio 8 (6-20) Glucose Level 105 mg/dL (70-99) H Calcium Level 8.7 mg/dL (8.5-10.1) Total Bilirubin 0.4 mg/dL (0.2-1.0) Aspartate Amino Transferase (AST) 37 U/L (15-37) Alanine Aminotransferase (ALT) 27 U/L (14-59) Alkaline Phosphatase 148 U/L (46-116) H AF-Akf-V-Type Natriuretic Peptide 6291 pg/mL (0-124) H Total Protein 6.8 g/dL (6.4-8.2) Albumin 2.4 g/dL (3.4-5.0) L Albumin/Globulin Ratio 0.5 (1.0-1.7) L Laboratory Tests 01/14/18 19:28 Laboratory Tests 01/14/18 19:28 EKG EKG EKG SR no STEMI read by Dr. Betts[] Radiology/Procedures Radiology/Procedures [] Course & Med Decision Making Course & Med Decision Making Pertinent Labs and Imaging studies reviewed. (See chart for details) Dx: CKD, chronic edema of lower extremities DDx: ARF, cellulitis, CHF exacerbation EKG was negative for ACS or acute changes. Labs were chronically elevated. BNP 6291, lungs were clear. PT refused to give urine specimen, denies any urinary sx other than slightly decreased UOP. Pt was given 50 mcg of fentanyl for pain, then requested zofran for nausea. One hydrocodone was given to patient prior to discharge. A health care social worker referral was made as patient reports having no resources to help her. Patient verbalized an understanding of home care, medications, follow-up, and return to ED instructions and was in agreement with the plan of care. [facility] 01/14/18 19:28 [] Dragon Disclaimer Dragon Disclaimer This electronic medical record was generated, in whole or in part, using a voice recognition dictation system. Departure Departure Impression: Primary Impression: Chronic kidney disease (CKD) Additional Impression: Lower extremity edema Disposition: 01 HOME, SELF-CARE Condition: STABLE Referrals: RAJESH GIPSON MD (PCP) Follow up wtih Dr. Gipson or Dr. Huston in the next 1-2 days. Patient Instructions: Edema, [id number], Kidney Failure, [id number] Additional Instructions: Take you home medications as prescribed. Wear your RHONDA hose. Follow up with your primary care doctor about your chronic leg pain and swelling and your worsening kidney disease. Return to the ER if your symptoms worsen. Problem Qualifiers Primary Impression: Chronic kidney disease (CKD) Chronic kidney disease stage: unspecified stage Qualified Codes: N18.9 - Chronic kidney disease, unspecified MEGA SANTOS COLLECTIONS MANAGER Jan 14, 2018 19:31
[2018-01-14 19:40] LABS: BASO # 0.2 x10^3/uL (0.0-0.2); BASO % 1 % (0-3); EOS # 0.2 x10^3/uL (0.0-0.7); EOS % 1 % (0-3); HEMATOCRIT 32.9 % (36.0-47.0); HEMOGLOBIN 11.2 g/dL (12.0-15.5); LYMPH # 3.3 x10^3/uL (1.0-4.8); LYMPH % 23 % (24-48); MEAN CORPUSCULAR HEMOGLOBIN 30 pg (25-35); MEAN CORPUSCULAR HGB CONC 34 g/dL (31-37); MEAN CORPUSCULAR VOLUME 88 fL (79-100); MONO # 0.9 x10^3/uL (0.0-1.1); MONO % 7 % (0-9); NEUT # 9.8 x10^3uL (1.8-7.7); NEUT % 68 % (31-73); PLATELET COUNT 406 x10^3/uL (140-400); RED BLOOD COUNT 3.76 x10^6/uL (3.50-5.40); RED CELL DISTRIBUTION WIDTH 14.5 % (11.5-14.5); WHITE BLOOD COUNT 14.5 x10^3/uL (4.0-11.0)
[2018-01-14 19:51] LABS: CALCIUM 8.7 mg/dL (8.5-10.1); CREATININE 5.1 mg/dL (0.6-1.0); GFR 10.6; POTASSIUM 4.9 mmol/L (3.5-5.1)
[2018-01-14 19:57] LABS: ALBUMIN 2.4 g/dL (3.4-5.0); ALBUMIN/GLOBULIN RATIO 0.5 (1.0-1.7); TOTAL BILIRUBIN 0.4 mg/dL (0.2-1.0); TOTAL PROTEIN 6.8 g/dL (6.4-8.2)
[2018-01-14] MEDS ORDERED: fentaNYL PF VIAL 100 MCG/2 ML VIAL IV ONE (20:00)
[2018-01-14 20:33] VITALS: BP 164/87
[2018-01-14] MEDS ORDERED: ONDANSETRON PF 4 MG/2 ML VIAL. IV ONE (21:00)
[2018-01-14] MEDS ORDERED: HYDROcodone/APAP 5/325MG 1 TAB TABLET PO ONE (21:15)
--- NOTE | 2018-01-15 02:21 | EKG ---
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
--- NOTE | 2018-01-15 13:08 | EKG ---
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
== END 2018-01-14 21:19 | disposition home or self-care (01) ==
LOC: ER 16:14
DX: E11.22 Type 2 diabetes mellitus with diabetic chronic kidney disease (principal); I12.9 Hypertensive chronic kidney disease with stage 1 through stage 4 chronic kidney disease, or unspecified chronic kidney disease; N18.9 Chronic kidney disease, unspecified; E11.39 Type 2 diabetes mellitus with other diabetic ophthalmic complication; H40.9 Unspecified glaucoma; H42 Glaucoma in diseases classified elsewhere; E11.40 Type 2 diabetes mellitus with diabetic neuropathy, unspecified; G89.29 Other chronic pain; Z90.710 Acquired absence of both cervix and uterus
CPT/HCPCS: 36415; 80053; 83880; 85025; 93005; 96374; 96375; 99285; J2405; J3010

== ENCOUNTER 2018-02-04 14:47 | Emergency (ER) | payer OTHER ==
[~2018-02-04] VITALS: Ht 162.6 cm; Wt 81.6 kg
[2018-02-04] MEDS ORDERED: fentaNYL PF VIAL 100 MCG/2 ML VIAL IV ONE (15:45)
[2018-02-04] MEDS ORDERED: HYDROcodone/APAP 5/325MG 1 TAB TABLET PO ONE ×2 (16:15→18:00)
[2018-02-04 16:41] LABS: BASO # 0.1 x10^3/uL (0.0-0.2); BASO % 1 % (0-3); EOS # 0.1 x10^3/uL (0.0-0.7); EOS % 1 % (0-3); HEMATOCRIT 29.3 % (36.0-47.0); LYMPH % 14 % (24-48); MEAN CORPUSCULAR HEMOGLOBIN 30 pg (25-35); MEAN CORPUSCULAR HGB CONC 34 g/dL (31-37); MEAN CORPUSCULAR VOLUME 86 fL (79-100); MONO # 0.9 x10^3/uL (0.0-1.1); MONO % 6 % (0-9); NEUT # 11.3 x10^3uL (1.8-7.7); NEUT % 78 % (31-73); PLATELET COUNT 386 x10^3/uL (140-400); RED CELL DISTRIBUTION WIDTH 15.4 % (11.5-14.5); WHITE BLOOD COUNT 14.5 x10^3/uL (4.0-11.0)
[2018-02-04 16:50] LABS: CALCIUM 8.4 mg/dL (8.5-10.1); CREATININE 5.2 mg/dL (0.6-1.0); GFR 10.4; POTASSIUM 5.8 mmol/L (3.5-5.1)
[2018-02-04 17:26] LABS: BILIRUBIN,URINE NEGATIVE (NEG); CLARITY,URINE CLEAR; COLOR,URINE YELLOW; NITRITE,URINE NEGATIVE (NEG); PH,URINE 6.5; PROTEIN,URINE >=300 mg/dL (NEG-TRACE); UROBILINOGEN,URINE 0.2 mg/dL (0.2 mg/dL)
[2018-02-04 17:29] VITALS: BP 189/88
[2018-02-04 17:34] LABS: AMORPHOUS SEDIMENT,UR PRESENT /HPF; BACTERIA,URINE FEW /HPF (0-FEW); SQUAMOUS EPITHELIAL CELL,UR MOD /LPF
[2018-02-04] MEDS ORDERED: HYDR-971 PO (17:48)
--- NOTE | 2018-02-04 17:49 | PHYS DOC ---
Past Medical History Past Medical History: Diabetes-Type II, Glaucoma, Hypertension, Hypothyroid, Renal Disease Additional Past Medical Histor: neuropathy, cataracts,CHRONIC PAIN Past Surgical History: Hysterectomy Additional Past Surgical Histo: PT POOR HISTORIAN Alcohol Use: None Drug Use: None Adult General Chief Complaint Chief Complaint: BACK PAIN - NO INJURY HPI HPI Patient is a 57 year old female who presents with back pain that is chronic rates 8 out of 10. She states that she is out of her hydrocodone for last months and has not been going to the doctor and states no longer has a primary care doctor. Patient is very tearful and yelling at me as I walk in the room and try to answer questions and will not give me clear answers. She states to me that she does not have any chronic kidney problems and then when I confronted her that EMS stated that she did have kidney problems and that she was not taking dialysis as she was told to she then states that "they haven't put me on dialysis yet but state that I will need to be". When asked patient about where her pain is about other symptoms all she keeps screaming at me is "I 'm in pain and on cold". Patient will not elaborate on why she has not followed up with nephrology her why she doesn't have a primary care doctor any more. Patient stopped answering any of my questions because she wanted me to make the room warmer and give her something for pain. I told the patient that I cannot properly help her and make her feel better if she did not let me do my exam. Patient put the blanket back over her head and said I should just went to [facility]'. Patient then stated "why don't you understand about I'm in pain and I'm cold and I want the room to be warmer and I want pain medication". Patient's lungs were clear to auscultation all lobes. Heart rate was regular but slightly tachycardia. Patient is very upset and her blood pressure is 230/113 but states she's been taking her hypertension and diabetic medications. Patient states she still smokes. Patient states that she still makes urine and has no dysuria. Review of Systems Review of Systems Constitutional: Denies fever or chills [] Eyes: Denies change in visual acuity, redness, or eye pain [] HENT: Denies nasal congestion or sore throat [] Respiratory: Denies cough or shortness of breath [] Cardiovascular: No additional information not addressed in HPI [] GI: Denies abdominal pain, nausea, vomiting, bloody stools or diarrhea [] : Denies dysuria or hematuria [] Musculoskeletal: Chronic bilateral flank back pain. Denies joint pain [] Integument: Denies rash or skin lesions [] Neurologic: Denies headache, focal weakness or sensory changes [] All other systems were reviewed and found to be within normal limits, except as documented in this note. Current Medications Current Medications Current Medications Medications (Trade) Dose Ordered Sig/Clarence Start Time Stop Time Status Last Admin Dose Admin Acetaminophen/ Hydrocodone Bitart (Lortab 5/325) 1 tab 1X ONCE 02/04/18 18:00 02/04/18 18:01 DC 02/04/18 18:00 1 TAB Fentanyl Citrate (Fentanyl 2ml Vial) 50 mcg 1X ONCE 02/04/18 15:45 02/04/18 16:05 DC Allergies Allergies Allergies Coded Allergies Type Severity Reaction Last Updated Verified morphine Allergy Intermediate 02/04/18 Yes Physical Exam Physical Exam Constitutional: Well developed, well nourished, no acute distress, non-toxic appearance. [] HENT: Normocephalic, atraumatic, bilateral external ears normal, oropharynx moist, no oral exudates, nose normal. [] Eyes: PERRLA, EOMI, conjunctiva normal, no discharge. [] Neck: Normal range of motion, no tenderness, supple, no stridor. [] Cardiovascular:Heart rate regular rhythm, no murmur [] Lungs & Thorax: Bilateral breath sounds clear to auscultation [] Abdomen: Bowel sounds normal, soft, no tenderness, no masses, no pulsatile masses. [] Skin: Warm, dry, no erythema, no rash. [] Back: No tenderness, CVA tenderness. [] Extremities: No tenderness, no cyanosis, no clubbing, ROM intact, no edema. [] Neurologic: Alert and oriented X 3, normal motor function, normal sensory function, no focal deficits noted. [] Psychologic: Affect normal, judgement normal, mood anxious, angry and yelling at staff. [] Current Patient Data Vital Signs Vital Signs Date Time Temp Pulse Resp B/P (MAP) Pulse Ox O2 Delivery O2 Flow Rate FiO2 02/04/18 17:29 77 18 189/88 (121) 95 02/04/18 14:50 97.7 Room Air 97.7 Lab Values Laboratory Tests Test 02/04/18 16:34 02/04/18 17:19 White Blood Count 14.5 x10^3/uL (4.0-11.0) H Red Blood Count 3.40 x10^6/uL (3.50-5.40) L Hemoglobin 10.0 g/dL (12.0-15.5) L Hematocrit 29.3 % (36.0-47.0) L Mean Corpuscular Volume 86 fL (79-100) Mean Corpuscular Hemoglobin 30 pg (25-35) Mean Corpuscular Hemoglobin Concent 34 g/dL (31-37) Red Cell Distribution Width 15.4 % (11.5-14.5) H Platelet Count 386 x10^3/uL (140-400) Neutrophils (%) (Auto) 78 % (31-73) H Lymphocytes (%) (Auto) 14 % (24-48) L Monocytes (%) (Auto) 6 % (0-9) Eosinophils (%) (Auto) 1 % (0-3) Basophils (%) (Auto) 1 % (0-3) Neutrophils # (Auto) 11.3 x10^3uL (1.8-7.7) H Lymphocytes # (Auto) 2.0 x10^3/uL (1.0-4.8) Monocytes # (Auto) 0.9 x10^3/uL (0.0-1.1) Eosinophils # (Auto) 0.1 x10^3/uL (0.0-0.7) Basophils # (Auto) 0.1 x10^3/uL (0.0-0.2) Sodium Level 139 mmol/L (136-145) Potassium Level 5.8 mmol/L (3.5-5.1) H Chloride Level 111 mmol/L (98-107) H Carbon Dioxide Level 14 mmol/L (21-32) L Anion Gap 14 (6-14) Blood Urea Nitrogen 53 mg/dL (7-20) H Creatinine 5.2 mg/dL (0.6-1.0) H Estimated GFR (Cockcroft-Gault) 10.4 Glucose Level 84 mg/dL (70-99) Calcium Level 8.4 mg/dL (8.5-10.1) L Urine Collection Type Unknown Urine Color Yellow Urine Clarity Clear Urine pH 6.5 Urine Specific [place] 1.020 Urine Protein >=300 mg/dL (NEG-TRACE) Urine Glucose (UA) 100 mg/dL (NEG) Urine Ketones (Stick) Negative mg/dL (NEG) Urine Blood Moderate (NEG) Urine Nitrite Negative (NEG) Urine Bilirubin Negative (NEG) Urine Urobilinogen Dipstick 0.2 mg/dL (0.2 mg/dL) Urine Leukocyte Esterase Small (NEG) Urine RBC 11-20 /HPF (0-2) Urine WBC 5-10 /HPF (0-4) Urine Squamous Epithelial Cells Mod /LPF Urine Amorphous Sediment Present /HPF Urine Bacteria Few /HPF (0-FEW) Laboratory Tests 02/04/18 16:34 Laboratory Tests 02/04/18 16:34 EKG EKG [] Radiology/Procedures Radiology/Procedures [] Course & Med Decision Making Course & Med Decision Making Patient is a 57 year old female who presents with back pain that is chronic rates 8 out of 10. She states that she is out of her hydrocodone for last months and has not been going to the doctor and states no longer has a primary care doctor. Patient is very tearful and yelling at me as I walk in the room and try to answer questions and will not give me clear answers. She states to me that she does not have any chronic kidney problems and then when I confronted her that EMS stated that she did have kidney problems and that she was not taking dialysis as she was told to she then states that "they haven't put me on dialysis yet but state that I will need to be". When asked patient about where her pain is about other symptoms all she keeps screaming at me is "I 'm in pain and on cold". Patient will not elaborate on why she has not followed up with nephrology her why she doesn't have a primary care doctor any more. Patient stopped answering any of my questions because she wanted me to make the room warmer and give her something for pain. I told the patient that I cannot properly help her and make her feel better if she did not let me do my exam. Patient put the blanket back over her head and said I should just went to [facility]. Patient then stated "why don't you understand about I'm in pain and I'm cold and I want the room to be warmer and I want pain medication". Patient's lungs were clear to auscultation all lobes. Heart rate was regular but slightly tachycardia. Patient is very upset and her blood pressure is 230/113 but states she's been taking her hypertension and diabetic medications. Patient states she still smokes. Patient states that she still makes urine and has no dysuria. Some blood work on the patient and her blood work has no significant changes from the last time she was here in December. Patient states that the one Ventura that I gave her an ED did slightly help her. When I went back in the room patient was more talkative and stated that her children on dialysis also and that she knows that she needs to be and that she started she so angry but she is tired of being in pain all the time. Patient is told that she must follow-up with a guest relations manager and call them tomorrow morning because she would not get any better and the pain will continue and get worse or she does not follow up with a guest relations manager to begin treatment for her kidneys. Skin is pink warm and dry, she has no extremity swelling although she states that her hands are swollen but they do not look swollen when I examine them. Her pulses are present in all extremities. Patient's urine is not infected. Patient is given a second Ventura and a prescription for some Ventura. I have consult with on this patient and she agrees with the treatment and discharge plan. Dragon Disclaimer Dragon Disclaimer This electronic medical record was generated, in whole or in part, using a voice recognition dictation system. Departure Departure Impression: Primary Impression: Back pain Disposition: 01 HOME, SELF-CARE Condition: STABLE Referrals: RAJESH SINGH MD (PCP) Patient Instructions: Back Pain, Adult, Chronic Back Pain Additional Instructions: FOLLOW UP WITH YOUR PRIMARY CARE SOON POSSIBLE. Scripts Hydrocodone/Apap 5-325 (NORCO 5-325 TABLET) 1 Each Tablet 1 TAB PO PRN Q6HRS PRN for PAIN, #6 TAB 0 Refills Prov: THUY MCKENZIE Jose PACKAGE HANDLER 02/04/18 Problem Qualifiers Primary Impression: Back pain Back pain location: back pain in unspecified location Chronicity: chronic Back pain laterality: bilateral Qualified Codes: M54.9 - Dorsalgia, unspecified; G89.29 - Other chronic pain THUY MCKENZIE PACKAGE HANDLER Feb 04, 2018 17:49
== END 2018-02-04 18:20 | disposition home or self-care (01) ==
LOC: ER 14:47
DX: G89.29 Other chronic pain (principal); M54.9 Dorsalgia, unspecified; E11.39 Type 2 diabetes mellitus with other diabetic ophthalmic complication; H40.89 Other specified glaucoma; E11.22 Type 2 diabetes mellitus with diabetic chronic kidney disease; I12.9 Hypertensive chronic kidney disease with stage 1 through stage 4 chronic kidney disease, or unspecified chronic kidney disease; N18.9 Chronic kidney disease, unspecified; E11.40 Type 2 diabetes mellitus with diabetic neuropathy, unspecified; E11.36 Type 2 diabetes mellitus with diabetic cataract; E03.9 Hypothyroidism, unspecified; F17.200 Nicotine dependence, unspecified, uncomplicated; Z90.710 Acquired absence of both cervix and uterus; Z88.5 Allergy status to narcotic agent
CPT/HCPCS: 36415; 80048; 81001; 85025; 87086; 99284

== ENCOUNTER 2018-02-24 02:42 | Emergency (ER) | payer OTHER ==
[~2018-02-24] VITALS: Ht 165.1 cm; Wt 63.5 kg
[~2018-02-24 02:42] MED LIST changes: +HYDR-3164 PO; -HYDR-971 PO
[2018-02-24] MEDS ORDERED: oxyCODONE IR 5 MG TABLET PO ONE (03:30)
[2018-02-24 03:38] LABS: BASO # 0.1 x10^3/uL (0.0-0.2); BASO % 1 % (0-3); EOS # 0.1 x10^3/uL (0.0-0.7); EOS % 1 % (0-3); HEMATOCRIT 22.2 % (36.0-47.0); HEMOGLOBIN 7.4 g/dL (12.0-15.5); LYMPH # 2.5 x10^3/uL (1.0-4.8); LYMPH % 24 % (24-48); MEAN CORPUSCULAR HEMOGLOBIN 30 pg (25-35); MEAN CORPUSCULAR HGB CONC 34 g/dL (31-37); MEAN CORPUSCULAR VOLUME 88 fL (79-100); MONO # 0.8 x10^3/uL (0.0-1.1); MONO % 8 % (0-9); NEUT # 6.7 x10^3uL (1.8-7.7); NEUT % 66 % (31-73); PLATELET COUNT 289 x10^3/uL (140-400); RED BLOOD COUNT 2.51 x10^6/uL (3.50-5.40); RED CELL DISTRIBUTION WIDTH 15.8 % (11.5-14.5); WHITE BLOOD COUNT 10.1 x10^3/uL (4.0-11.0)
[2018-02-24 03:44] LABS: CALCIUM 7.7 mg/dL (8.5-10.1); CREATININE 4.5 mg/dL (0.6-1.0); GFR 12.3; POTASSIUM 4.3 mmol/L (3.5-5.1)
[2018-02-24 03:50] LABS: ALBUMIN 1.6 g/dL (3.4-5.0); ALBUMIN/GLOBULIN RATIO 0.5 (1.0-1.7); TOTAL BILIRUBIN 0.1 mg/dL (0.2-1.0); TOTAL PROTEIN 4.9 g/dL (6.4-8.2)
[2018-02-24 03:57] VITALS: BP 138/68
--- NOTE | 2018-02-24 04:39 | RAD ---
AP portable chest radiograph 02/24/2018 Clinical History: Shortness of breath. An AP erect portable digital radiograph of the chest was obtained. Comparison study is dated 12/31/2017. The cardiac silhouette is mildly enlarged. The thoracic aorta is tortuous. Atherosclerotic calcification of the thoracic aorta is seen. Patchy left lower lobe atelectasis and/or infiltrate is seen. No pneumothorax or pleural effusion is seen. The osseous structures are unchanged. Impression: Patchy left lower lobe atelectasis and/or infiltrate. Electronically signed by: Sheng Samuel MD (02/24/2018 4:35 AM) [facility]
--- NOTE | 2018-02-24 05:11 | PHYS DOC ---
Past Medical History Past Medical History: Diabetes-Type II, Glaucoma, Hypertension, Hypothyroid, Renal Disease Additional Past Medical Histor: neuropathy, cataracts,CHRONIC PAIN Past Surgical History: Hysterectomy Additional Past Surgical Histo: PT POOR HISTORIAN Alcohol Use: None Drug Use: None Adult General Chief Complaint Chief Complaint: DIALYSIS PROBLEM HPI HPI Patient is a 57 year old female who is brought to the emergency room apparently her daughter dropped her off she is telling me that she's having back pain she has chronic pain this is similar to previous it is in the lower back and radiates up. No trauma. In addition she also tells me that she was recently at [facility] where she had a dialysis catheter placed on February 17 and then it was removed on February 21. Apparently there was some swelling and maybe some redness around that there was some concern about infection. according to notes i reviewed from [facility], right ij was removed and a left one was placed. cultures were drawn and on my review of records cultures had been engative to date. apparently the patient had left ij catheter removed prior to leaving [facility] but she can't tell me why (records from don't elucidate this, but nephrology notes did say that patient didn't need emergent HD based on labs or fluid status). now she says the site is sore and she wants some pain medication overall history is very limited by the fact that the patient is verbally confrontational and refuses to answer some questiosn i called daughter but no answer. Review of Systems Review of Systems Constitutional: Denies fever or chills [] Eyes: Denies change in visual acuity, redness, or eye pain [] GI: Denies abdominal pain, nausea, vomiting, bloody stools or diarrhea [] : very little urine she says Musculoskeletal: Integument: Denies rash or skin lesions [] Neurologic: Denies headache, focal weakness or sensory changes [] Endocrine: Denies polyuria or polydipsia [] All other systems were reviewed and found to be within normal limits, except as documented in this note. Current Medications Current Medications Current Medications Medications (Trade) Dose Ordered Sig/Clarence Start Time Stop Time Status Last Admin Dose Admin Oxycodone HCl (Roxicodone) 10 mg 1X ONCE 02/24/18 03:30 02/24/18 03:31 DC 02/24/18 03:28 10 MG Allergies Allergies Allergies Coded Allergies Type Severity Reaction Last Updated Verified morphine Allergy Intermediate 02/04/18 Yes Physical Exam Physical Exam Constitutional: Well developed, well nourished, no acute distress, non-toxic appearance. [] HENT: Normocephalic, atraumatic, bilateral external ears normal, oropharynx moist, no oral exudates, nose normal. [] Eyes: PERRLA, EOMI, conjunctiva normal, no discharge. [] Neck: Normal range of motion, no tenderness, supple, no stridor. [] Cardiovascular:Heart rate regular rhythm, Lungs & Thorax: Bilateral breath sounds clear to auscultation [] Abdomen: Bowel sounds normal, soft, no tenderness, no masses, no pulsatile masses. [] Skin: both recent sites of catheters appear intact no significant erythema or induration. mild tenderness around the left one. Back: diffuse ttp no stepoff Extremities: No tenderness, no cyanosis, no clubbing, ROM intact, Neurologic: Alert and oriented X 3, normal motor function, normal sensory function, no focal deficits noted. [] Psychologic: very abnormal affect. Current Patient Data Vital Signs Vital Signs Date Time Temp Pulse Resp B/P (MAP) Pulse Ox O2 Delivery O2 Flow Rate FiO2 02/24/18 03:57 76 20 138/68 (91) 96 Room Air 02/24/18 03:07 98.3 98.3 Lab Values Laboratory Tests Test 02/24/18 03:20 White Blood Count 10.1 x10^3/uL (4.0-11.0) Red Blood Count 2.51 x10^6/uL (3.50-5.40) L Hemoglobin 7.4 g/dL (12.0-15.5) L Hematocrit 22.2 % (36.0-47.0) L Mean Corpuscular Volume 88 fL (79-100) Mean Corpuscular Hemoglobin 30 pg (25-35) Mean Corpuscular Hemoglobin Concent 34 g/dL (31-37) Red Cell Distribution Width 15.8 % (11.5-14.5) H Platelet Count 289 x10^3/uL (140-400) Neutrophils (%) (Auto) 66 % (31-73) Lymphocytes (%) (Auto) 24 % (24-48) Monocytes (%) (Auto) 8 % (0-9) Eosinophils (%) (Auto) 1 % (0-3) Basophils (%) (Auto) 1 % (0-3) Neutrophils # (Auto) 6.7 x10^3uL (1.8-7.7) Lymphocytes # (Auto) 2.5 x10^3/uL (1.0-4.8) Monocytes # (Auto) 0.8 x10^3/uL (0.0-1.1) Eosinophils # (Auto) 0.1 x10^3/uL (0.0-0.7) Basophils # (Auto) 0.1 x10^3/uL (0.0-0.2) Sodium Level 142 mmol/L (136-145) Potassium Level 4.3 mmol/L (3.5-5.1) Chloride Level 105 mmol/L (98-107) Carbon Dioxide Level 30 mmol/L (21-32) Anion Gap 7 (6-14) Blood Urea Nitrogen 25 mg/dL (7-20) H Creatinine 4.5 mg/dL (0.6-1.0) H Estimated GFR (Cockcroft-Gault) 12.3 BUN/Creatinine Ratio 6 (6-20) Glucose Level 172 mg/dL (70-99) H Calcium Level 7.7 mg/dL (8.5-10.1) L Total Bilirubin 0.1 mg/dL (0.2-1.0) L Aspartate Amino Transferase (AST) 21 U/L (15-37) Alanine Aminotransferase (ALT) 13 U/L (14-59) L Alkaline Phosphatase 96 U/L (46-116) Total Protein 4.9 g/dL (6.4-8.2) L Albumin 1.6 g/dL (3.4-5.0) L Albumin/Globulin Ratio 0.5 (1.0-1.7) L Laboratory Tests 02/24/18 03:20 Laboratory Tests 02/24/18 03:20 EKG EKG [] Radiology/Procedures Radiology/Procedures [] Impressions: noted formal read cxr likely atelectasis no cough fever or leukocytosis Course & Med Decision Making Course & Med Decision Making Pertinent Labs and Imaging studies reviewed. (See chart for details) esrd noncompliance , recnet admit [facility], right ij removed for possible infection (cultures have been negative on my review of records), left ij replaced and then remvoed for unclear reason (nephrology notes said pt did not need stat or emergent HD due to stability of labs) now here with back pain and some pain around the site of her ij sites. no active bleeding, some dried blood on the gauze. no signs of cellulitis clinically. basic labs and cxr show stable cr, potassium and fluid status. oral po pain med given in er. i think she can go home. i could not ascertain why left ij was remvoed but i dont think she needs stat dialysis, i dont think she is septic i think she can go home and f/u with pmd next week. [] Dragon Disclaimer Dragon Disclaimer This electronic medical record was generated, in whole or in part, using a voice recognition dictation system. Departure Departure Impression: Primary Impression: Chronic kidney disease (CKD) Disposition: 01 HOME, SELF-CARE Condition: STABLE Referrals: RAJESH SINGH MD (PCP) Patient Instructions: Kidney Failure, [id number] Additional Instructions: see your doctor in 3-4 days for recheck of labs. KIMBERLY GA MD Feb 24, 2018 05:11
== END 2018-02-24 05:05 | disposition home or self-care (01) ==
LOC: ER 02:42
DX: E11.22 Type 2 diabetes mellitus with diabetic chronic kidney disease (principal); I12.9 Hypertensive chronic kidney disease with stage 1 through stage 4 chronic kidney disease, or unspecified chronic kidney disease; N18.9 Chronic kidney disease, unspecified; E11.40 Type 2 diabetes mellitus with diabetic neuropathy, unspecified; E03.9 Hypothyroidism, unspecified; G89.29 Other chronic pain; Z90.710 Acquired absence of both cervix and uterus; Z88.5 Allergy status to narcotic agent
CPT/HCPCS: 36415; 71045; 80053; 85025; 99284-25

== ENCOUNTER 2018-03-02 20:48 | Emergency (ER) | payer OTHER ==
[~2018-03-02] VITALS: Ht 157.5 cm; Wt 67.1 kg
--- NOTE | 2018-03-02 21:08 | PHYS DOC ---
Past Medical History Past Medical History: Diabetes-Type II, Glaucoma, Hypertension, Hypothyroid, Renal Disease Additional Past Medical Histor: neuropathy, cataracts,CHRONIC PAIN Past Surgical History: Hysterectomy Additional Past Surgical Histo: PT POOR HISTORIAN Alcohol Use: None Drug Use: None Adult General Chief Complaint Chief Complaint: chronic diffuse pain, pain around dialysis catheter [facility] HPI Patient is a 57-year-old female who presents with complaint of severe pain all over her body and also in her right chest area where they had just inserted a dialysis catheter yesterday. Patient states that she was supposed to have dialysis today but she missed her dialysis because she missed her ride. Patient is not sure how long she has been on dialysis and does not know why she is on dialysis. She states that she can't find a good doctor who can tell her what is wrong with her. Patient does complain of pain in her right anterior chest wall as well as chronic back pain, chronic bilateral leg pain and leg swelling. Additional history is somewhat limited as patient is very uncooperative on examination and overtly antagonistic towards staff. Review of Systems Review of Systems Constitutional: Denies fever or chills [] Respiratory: Complains of shortness of breath [] Cardiovascular: No additional information not addressed in HPI [] GI: Denies vomiting or diarrhea [] Musculoskeletal: Complains of back pain and bilateral leg pain [] Neurologic: Denies headache, focal weakness or sensory changes [] Difficult to obtain full review of systems due to patient being uncooperative on examination. Current Medications Current Medications Current Medications Medications (Trade) Dose Ordered Sig/Clarence Start Time Stop Time Status Last Admin Dose Admin Heparin Sodium (Porcine) (Hep Lock Adult) 500 unit 1X ONCE 03/02/18 22:00 03/02/18 22:01 DC 03/02/18 21:49 500 UNIT Tramadol HCl (Ultram) 50 mg 1X ONCE 03/02/18 22:15 03/02/18 22:16 DC 03/02/18 22:06 50 MG Allergies Allergies Allergies Coded Allergies Type Severity Reaction Last Updated Verified morphine Allergy Intermediate 02/04/18 Yes Physical Exam Physical Exam Constitutional: Well developed, well nourished, no acute distress, non-toxic appearance. [] HENT: Normocephalic, atraumatic, bilateral external ears normal, oropharynx moist, no oral exudates, nose normal. [] Eyes: PERRLA, EOMI, conjunctiva normal, no discharge. [] Neck: Normal range of motion, no tenderness, supple, no stridor. [] Cardiovascular: Regular rate and rhythm[] Lungs & Thorax: Bilateral breath sounds clear to auscultation [] Abdomen: Bowel sounds normal, soft, no tenderness. [] Skin: Warm, dry, no erythema, no rash. [] Back: Patient complains of diffuse tenderness throughout her back without palpable spasm on exam. [] Extremities: There is lower extremity edema but difficult to assess level of edema as patient will not allow adequate examination due to reported pain. [] Neurologic: Alert and oriented X 3, normal motor function, no focal deficits noted. [] Current Patient Data Vital Signs Vital Signs Date Time Temp Pulse Resp B/P (MAP) Pulse Ox O2 Delivery O2 Flow Rate FiO2 03/02/18 21:08 98.2 89 18 179/88 (118) 99 Room Air 98.2 Lab Values Laboratory Tests Test 03/02/18 21:33 White Blood Count 10.3 x10^3/uL (4.0-11.0) Red Blood Count 2.27 x10^6/uL (3.50-5.40) L Hemoglobin 7.3 g/dL (12.0-15.5) L Hematocrit 20.3 % (36.0-47.0) *L Mean Corpuscular Volume 90 fL (79-100) Mean Corpuscular Hemoglobin 32 pg (25-35) Mean Corpuscular Hemoglobin Concent 36 g/dL (31-37) Red Cell Distribution Width 15.8 % (11.5-14.5) H Platelet Count 296 x10^3/uL (140-400) Neutrophils (%) (Auto) 68 % (31-73) Lymphocytes (%) (Auto) 22 % (24-48) L Monocytes (%) (Auto) 9 % (0-9) Eosinophils (%) (Auto) 1 % (0-3) Basophils (%) (Auto) 1 % (0-3) Neutrophils # (Auto) 7.0 x10^3uL (1.8-7.7) Lymphocytes # (Auto) 2.2 x10^3/uL (1.0-4.8) Monocytes # (Auto) 0.9 x10^3/uL (0.0-1.1) Eosinophils # (Auto) 0.1 x10^3/uL (0.0-0.7) Basophils # (Auto) 0.1 x10^3/uL (0.0-0.2) Sodium Level 142 mmol/L (136-145) Potassium Level 4.5 mmol/L (3.5-5.1) Chloride Level 104 mmol/L (98-107) Carbon Dioxide Level 34 mmol/L (21-32) H Anion Gap 4 (6-14) L Blood Urea Nitrogen 42 mg/dL (7-20) H Creatinine 5.8 mg/dL (0.6-1.0) H Estimated GFR (Cockcroft-Gault) 9.2 BUN/Creatinine Ratio 7 (6-20) Glucose Level 126 mg/dL (70-99) H Calcium Level 7.4 mg/dL (8.5-10.1) L Phosphorus Level 6.3 mg/dL (2.6-4.7) H Magnesium Level 2.0 mg/dL (1.8-2.4) Total Bilirubin 0.1 mg/dL (0.2-1.0) L Aspartate Amino Transferase (AST) 23 U/L (15-37) Alanine Aminotransferase (ALT) 15 U/L (14-59) Alkaline Phosphatase 113 U/L (46-116) Total Protein 4.8 g/dL (6.4-8.2) L Albumin 1.7 g/dL (3.4-5.0) L Albumin/Globulin Ratio 0.5 (1.0-1.7) L Laboratory Tests 03/02/18 21:33 Laboratory Tests 03/02/18 21:33 EKG EKG [] Radiology/Procedures Radiology/Procedures [] Course & Med Decision Making Course & Med Decision Making Pertinent Labs and Imaging studies reviewed. (See chart for details) Patient seen and evaluated by your medical staff and patient has been quite uncooperative with medical staff that she has been here and overtly reviewed with nursing staff. Patient's lab work has been reviewed and appears to be stable from most recent study on the first. Her electrolytes look good with normal potassium and sodium. Despite patient missing her dialysis today, I do not feel that patient warrants immediate dialysis at this time and made us follow-up with her crabbing machine operator in the morning to schedule dialysis. Dragon Disclaimer Dragon Disclaimer This electronic medical record was generated, in whole or in part, using a voice recognition dictation system. Departure Departure Impression: Primary Impression: Chronic kidney disease (CKD) Additional Impressions: Noncompliance of patient with renal dialysis Chronic pain Disposition: 01 HOME, SELF-CARE Condition: STABLE Referrals: RAJESH SINGH MD (PCP) Patient Instructions: Chronic Pain Problem Qualifiers Primary Impression: Chronic kidney disease (CKD) Chronic kidney disease stage: unspecified stage Qualified Codes: N18.9 - Chronic kidney disease, unspecified Additional Impressions: Chronic pain Chronic pain type: chronic pain syndrome Qualified Codes: G89.4 - Chronic pain syndrome GIULIANO FAIRCHILD Jr. DO Mar 02, 2018 21:08
[2018-03-02 21:45] LABS: BASO # 0.1 x10^3/uL (0.0-0.2); BASO % 1 % (0-3); EOS # 0.1 x10^3/uL (0.0-0.7); EOS % 1 % (0-3); HEMOGLOBIN 7.3 g/dL (12.0-15.5); LYMPH # 2.2 x10^3/uL (1.0-4.8); LYMPH % 22 % (24-48); MEAN CORPUSCULAR HEMOGLOBIN 32 pg (25-35); MEAN CORPUSCULAR HGB CONC 36 g/dL (31-37); MEAN CORPUSCULAR VOLUME 90 fL (79-100); MONO # 0.9 x10^3/uL (0.0-1.1); MONO % 9 % (0-9); NEUT % 68 % (31-73); PLATELET COUNT 296 x10^3/uL (140-400); RED BLOOD COUNT 2.27 x10^6/uL (3.50-5.40); RED CELL DISTRIBUTION WIDTH 15.8 % (11.5-14.5); WHITE BLOOD COUNT 10.3 x10^3/uL (4.0-11.0)
[2018-03-02 21:58] LABS: CALCIUM 7.4 mg/dL (8.5-10.1); CREATININE 5.8 mg/dL (0.6-1.0); GFR 9.2; POTASSIUM 4.5 mmol/L (3.5-5.1)
[2018-03-02 21:59] VITALS: BP 160/73
[2018-03-02 21:59] LABS: HEMATOCRIT 20.3 % (36.0-47.0)
[2018-03-02] MEDS ORDERED: HEPARIN PF 500 UNIT/5 ML DISP.SYRIN. IV ONE (22:00)
[2018-03-02 22:03] LABS: ALBUMIN 1.7 g/dL (3.4-5.0); ALBUMIN/GLOBULIN RATIO 0.5 (1.0-1.7); PHOSPHORUS 6.3 mg/dL (2.6-4.7); TOTAL BILIRUBIN 0.1 mg/dL (0.2-1.0); TOTAL PROTEIN 4.8 g/dL (6.4-8.2)
--- NOTE | 2018-03-02 22:13 | RAD ---
Examination: Single frontal view of the chest HISTORY: History of chest wall pain COMPARISON: 02/24/2018 FINDINGS: Lower lung volumes and technique accentuates heart size and pulmonary vascularity. Mild cardiomegaly. There is mild prominent appearing bilateral interstitial lung markings. Right-sided internal jugular line in place. Cortical irregularity identified in the right greater than tuberosity similar to prior exam. IMPRESSION: Mild prominent bilateral interstitial lung markings likely mild congestive changes. Electronically signed by: Amrit Lopez MD (03/02/2018 10:10 PM) [facility]
[2018-03-02] MEDS ORDERED: traMADol 50 MG TABLET PO ONE (22:15)
--- NOTE | 2018-03-03 07:18 | EKG ---
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
== END 2018-03-02 22:44 | disposition home or self-care (01) ==
LOC: ER 20:48
DX: G89.4 Chronic pain syndrome (principal); I12.9 Hypertensive chronic kidney disease with stage 1 through stage 4 chronic kidney disease, or unspecified chronic kidney disease; E11.22 Type 2 diabetes mellitus with diabetic chronic kidney disease; N18.9 Chronic kidney disease, unspecified; Z91.15 Patient's noncompliance with renal dialysis; E11.39 Type 2 diabetes mellitus with other diabetic ophthalmic complication; H40.9 Unspecified glaucoma; E11.40 Type 2 diabetes mellitus with diabetic neuropathy, unspecified; E03.9 Hypothyroidism, unspecified; Z90.710 Acquired absence of both cervix and uterus; Z99.2 Dependence on renal dialysis; Z88.5 Allergy status to narcotic agent; Y84.1 Kidney dialysis as the cause of abnormal reaction of the patient, or of later complication, without mention of misadventure at the time of the procedure; Y92.89 Other specified places as the place of occurrence of the external cause
CPT/HCPCS: 36415; 71045; 80053; 83735; 84100; 85025; 93005; 96374; 99284-25

== ENCOUNTER 2018-03-08 14:23 | Emergency (ER) | payer OTHER ==
[~2018-03-08] VITALS: Ht 157.5 cm; Wt 63.5 kg
[~2018-03-08 14:23] MED LIST changes: +Pantoprazole PO
[2018-03-08] MEDS ORDERED: ORPHENADRINE CITRATE 60 MG/2 ML VIAL. IM ONE (15:00)
--- NOTE | 2018-03-08 15:01 | PHYS DOC ---
Past Medical History Past Medical History: Diabetes-Type II, Glaucoma, Hypertension, Hypothyroid, Renal Disease, Renal Failure, Other Additional Past Medical Histor: neuropathy, cataracts,CHRONIC PAIN,ESRD Past Surgical History: Hysterectomy, Other Additional Past Surgical Histo: PT POOR HISTORIAN,DIALYSIS CATHETER Additional Information: PATIENT REPORTS SHE DOESN'T SMOKE. Alcohol Use: None Drug Use: None Adult General Chief Complaint Chief Complaint: BACK PAIN OR INJURY [facility] HPI Patient is a 57 year old AA female who presents to the emergency room via EMS today with complaints of right low back pain. She states that she has a history of chronic renal failure and she dialyzes on Mondays, Wednesdays and Fridays. Patient states she attended dialysis yesterday. She denies any cough, shortness of breath, swelling, or known injury. Patient states that the pain in her right low back shoots to her right buttock and increases with movement and weightbearing. She denies any numbness or tingling. She denies any known injury. Rates her pain a 10 out of 10. She states she has taken Tylenol PM at home for relief of her symptoms and has not had any relief of pain with that medication. Review of Systems Review of Systems Constitutional: Denies fever or chills [] Respiratory: Denies cough or shortness of breath [] Cardiovascular: No additional information not addressed in HPI [] GI: Denies abdominal pain, nausea, vomiting, or diarrhea [] : Denies change in output or dysuria Musculoskeletal: See history of present illness Integument: Denies rash or skin lesions [] Neurologic: Denies headache, focal weakness or sensory changes [] Complete systems were reviewed and found to be within normal limits, except as documented in this note. Current Medications Current Medications Current Medications Medications (Trade) Dose Ordered Sig/Clarence Start Time Stop Time Status Last Admin Dose Admin Acetaminophen/ Hydrocodone Bitart (Lortab 5/325) 1 tab STK-MED ONCE 03/08/18 16:20 03/08/18 16:22 DC Orphenadrine Citrate (Norflex) 60 mg 1X ONCE 03/08/18 15:00 03/08/18 15:06 DC 03/08/18 15:06 60 MG Allergies Allergies Allergies Coded Allergies Type Severity Reaction Last Updated Verified morphine Allergy Intermediate 03/06/18 Yes Physical Exam Physical Exam Constitutional: Well developed, well nourished, no acute distress, non-toxic appearance. [] HENT: Normocephalic, atraumatic, bilateral external ears normal, nose normal. [] Eyes: conjunctiva normal, no discharge. [] Neck: Normal range of motion Skin: Warm, dry, no erythema, no rash. [] Back: Right lumbar paraspinal tenderness, no bony tenderness, no CVA tenderness. [] Extremities: No tenderness, no cyanosis, no clubbing, ROM intact, no edema. [] Neurologic: Alert and oriented X 3, normal motor function, normal sensory function, no focal deficits noted. [] Psychologic: Affect normal, judgement normal, mood normal. [] Current Patient Data Vital Signs Vital Signs Date Time Temp Pulse Resp B/P (MAP) Pulse Ox O2 Delivery O2 Flow Rate FiO2 03/08/18 16:50 178/88 (118) 03/08/18 16:24 20 99 Room Air 03/08/18 14:23 98.0 103 98.0 EKG EKG [] Radiology/Procedures Radiology/Procedures [] Course & Med Decision Making Course & Med Decision Making Pertinent Labs and Imaging studies reviewed. (See chart for details) Dx: back pain Pt was given 60 mg of IM norflex and 1 tablet of [place] 5/325 she reported reduced pain after these medications. No discharge medications. Pt encouraged to attend dialysis tomorrow as planned and return to the ER if symptoms worsen. Patient verbalized an understanding of home care, medications, follow-up, and return to ED instructions and was in agreement with the plan of care. Staff Physician Addendum: I was working in the ER during the course of this patient's visit. I was available for consultation as needed, but I was not directly involved in the care of this patient. Dragon Disclaimer Dragon Disclaimer This electronic medical record was generated, in whole or in part, using a voice recognition dictation system. Departure Departure Impression: Primary Impression: Back pain Disposition: 01 HOME, SELF-CARE Condition: STABLE Referrals: RAJESH SINGH MD (PCP) Patient Instructions: Back Pain, Adult, [id number] Additional Instructions: Tylenol as needed for pain. Go to dialysis tomorrow as scheduled. Return to the ER if symptoms worsen. Problem Qualifiers Primary Impression: Back pain Back pain location: low back pain Chronicity: acute Back pain laterality: right Sciatica presence: with sciatica Sciatica laterality: sciatica of right side Qualified Codes: M54.41 - Lumbago with sciatica, right side MEGA SANTOS APRN Mar 08, 2018 15:01 KIMBERLY GA MD Mar 10, 2018 08:05
[2018-03-08] MEDS ORDERED: HYDROcodone/APAP 5/325MG 1 TAB TABLET ONE (16:20)
[2018-03-08] MEDS ORDERED: HYDROcodone/APAP 5/325MG 1 TAB TABLET PO ONE (16:30)
[2018-03-08 16:50] VITALS: BP 178/88
== END 2018-03-08 16:53 | disposition home or self-care (01) ==
LOC: ER 14:23
DX: M54.41 Lumbago with sciatica, right side (principal); I12.0 Hypertensive chronic kidney disease with stage 5 chronic kidney disease or end stage renal disease; E11.22 Type 2 diabetes mellitus with diabetic chronic kidney disease; N18.6 End stage renal disease; Z99.2 Dependence on renal dialysis; E03.9 Hypothyroidism, unspecified; E11.39 Type 2 diabetes mellitus with other diabetic ophthalmic complication; H40.9 Unspecified glaucoma; E11.40 Type 2 diabetes mellitus with diabetic neuropathy, unspecified; G89.29 Other chronic pain; Z90.710 Acquired absence of both cervix and uterus; Z88.5 Allergy status to narcotic agent
CPT/HCPCS: 96372; 99283; J2360

== ENCOUNTER 2018-04-17 13:27 | Emergency (ER) | payer OTHER ==
[~2018-04-17] VITALS: Ht 157.5 cm; Wt 61.2 kg
[~2018-04-17 13:27] MED LIST changes: +ALBU2.5V8 INH; +ALPR0.5T6 PO; -AMLO5TAB7; +AMLO5TAB7 PO; -ATOR40TA59; +ATOR40TA59 PO; +CLON1PAT2 TD; +FURO-68 PO; +INSU100I17 SQ; +LEVO50TA5 PO
[2018-04-17] MEDS ORDERED: fentaNYL PF VIAL 100 MCG/2 ML VIAL IV ONE (13:45)
--- NOTE | 2018-04-17 14:14 | RAD ---
Chest radiograph 04/17/2018 1:41 PM INDICATION: Left-sided chest pain COMPARISON: 04/04/2018 TECHNIQUE: Portable upright frontal view of the chest is provided. FINDINGS: The cardiomediastinal silhouette is within normal limits. New left-sided dialysis catheter is identified with the distal tip projecting over the superior right atrium. There are no pleural effusions. There is no pulmonary vascular congestion. There is no pneumothorax. The lungs are clear. Improved aeration of the lungs compared to prior examination. No significant osseous abnormality is identified. IMPRESSION: No acute cardiopulmonary process. There is a new left chest dialysis catheter with the distal tip terminating in the expected region of the right atrium. Electronically signed by: Neris Luo MD (04/17/2018 2:10 PM) [facility]
--- NOTE | 2018-04-17 14:18 | EKG ---
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
[2018-04-17 14:51] LABS: BASO # 0.2 x10^3/uL (0.0-0.2); BASO % 2 % (0-3); EOS # 0.1 x10^3/uL (0.0-0.7); EOS % 1 % (0-3); HEMATOCRIT 27.2 % (36.0-47.0); HEMOGLOBIN 9.2 g/dL (12.0-15.5); LYMPH # 1.9 x10^3/uL (1.0-4.8); LYMPH % 19 % (24-48); MEAN CORPUSCULAR HEMOGLOBIN 30 pg (25-35); MEAN CORPUSCULAR HGB CONC 34 g/dL (31-37); MEAN CORPUSCULAR VOLUME 89 fL (79-100); MONO # 0.7 x10^3/uL (0.0-1.1); MONO % 6 % (0-9); NEUT # 7.6 x10^3uL (1.8-7.7); NEUT % 72 % (31-73); PLATELET COUNT 279 x10^3/uL (140-400); RED BLOOD COUNT 3.07 x10^6/uL (3.50-5.40); WHITE BLOOD COUNT 10.4 x10^3/uL (4.0-11.0)
[2018-04-17 14:59] LABS: CALCIUM 8.1 mg/dL (8.5-10.1); CREATININE 4.9 mg/dL (0.6-1.0); GFR 11.1; POTASSIUM 4.1 mmol/L (3.5-5.1)
[2018-04-17 15:04] LABS: ALBUMIN 2.5 g/dL (3.4-5.0); ALBUMIN/GLOBULIN RATIO 0.6 (1.0-1.7); TOTAL BILIRUBIN 0.3 mg/dL (0.2-1.0); TOTAL PROTEIN 6.4 g/dL (6.4-8.2)
[2018-04-17 15:30] VITALS: BP 207/99
[2018-04-17] MEDS ORDERED: HYDR-3164 PO (15:55)
--- NOTE | 2018-04-17 15:55 | PHYS DOC ---
Past Medical History Past Medical History: Diabetes-Type II, Glaucoma, Hypertension, Hypothyroid, Renal Disease, Renal Failure, Other Additional Past Medical Histor: neuropathy, cataracts,CHRONIC PAIN,ESRD Past Surgical History: Hysterectomy, Other Additional Past Surgical Histo: PT POOR HISTORIAN,DIALYSIS CATHETER Alcohol Use: None Drug Use: None Adult General Chief Complaint Chief Complaint: GENERALIZED BODY ACHES HPI HPI Patient is a 57 year old female who came by EMS with complaining of back pain and dialysis catheter area pain. Patient states she was started on dialysis about 1 month ago via left chest dialysis catheter and also had left forearm shunt placement that is not ready to use. Patient states she missed her dialysis yesterday because of lack of transportation since last night had right lower back pain and left forearm pain in the area of the shunt and left chest pain in the area of the catheter as a constant pain and rated her pain at 8/10. Patient denies nausea and vomiting, shortness of breath, fever and chills, diarrhea and constipation. Patient states she did not have any pain medication at home. Patient is very anxious and crying while giving history. Review of Systems Review of Systems Constitutional: Denies fever or chills [] Eyes: Denies change in visual acuity, redness, or eye pain [] HENT: Denies nasal congestion or sore throat [] Respiratory: Denies cough or shortness of breath [] Cardiovascular: No additional information not addressed in HPI [] GI: Denies abdominal pain, nausea, vomiting, bloody stools or diarrhea [] : Denies dysuria or hematuria [] Musculoskeletal: Reports back pain and extremity pain Integument: Denies rash or skin lesions [] Neurologic: Denies headache, focal weakness or sensory changes [] Endocrine: Denies polyuria or polydipsia [] All other systems were reviewed and found to be within normal limits, except as documented in this note. Current Medications Current Medications Current Medications Medications (Trade) Dose Ordered Sig/Clarence Start Time Stop Time Status Last Admin Dose Admin Fentanyl Citrate (Fentanyl 2ml Vial) 25 mcg 1X ONCE 04/17/18 13:45 04/17/18 13:46 DC 04/17/18 14:46 25 MCG Allergies Allergies Allergies Coded Allergies Type Severity Reaction Last Updated Verified morphine Allergy Intermediate Itching 03/27/18 Yes Physical Exam Physical Exam Constitutional: Well nourished, mild distress, non-toxic appearance, anxious. [] HENT: Normocephalic, atraumatic, oropharynx moist, no oral exudates, nose normal. [] Eyes: PERRLA, EOMI, conjunctiva normal, no discharge. [] Neck: Normal range of motion, no tenderness, supple, no stridor. [] Cardiovascular:Heart rate regular rhythm, no murmur [] Lungs & Thorax: Bilateral breath sounds clear to auscultation , left chest wall dialysis catheter in place without sign of infection [] Abdomen: Bowel sounds normal, soft, no tenderness, no masses, no pulsatile masses. [] Skin: Warm, dry, no erythema, no rash. [] Back: No midline tenderness, no CVA tenderness, normal range of motion of lumbar spine. [] Extremities: Left forearm AV shunt in place without sign of infection or abscess , no cyanosis, no clubbing, ROM intact, no edema. [] Neurologic: Alert and oriented X 3, normal motor function, normal sensory function, no focal deficits noted. [] Psychologic: Affect anxious, mood normal. [] Current Patient Data Vital Signs Vital Signs Date Time Temp Pulse Resp B/P (MAP) Pulse Ox O2 Delivery O2 Flow Rate FiO2 04/17/18 15:30 92 20 207/99 (135) 99 Room Air 04/17/18 13:29 98.2 98.2 Lab Values Laboratory Tests Test 04/17/18 14:33 White Blood Count 10.4 x10^3/uL (4.0-11.0) Red Blood Count 3.07 x10^6/uL (3.50-5.40) L Hemoglobin 9.2 g/dL (12.0-15.5) L Hematocrit 27.2 % (36.0-47.0) L Mean Corpuscular Volume 89 fL (79-100) Mean Corpuscular Hemoglobin 30 pg (25-35) Mean Corpuscular Hemoglobin Concent 34 g/dL (31-37) Red Cell Distribution Width 16.0 % (11.5-14.5) H Platelet Count 279 x10^3/uL (140-400) Neutrophils (%) (Auto) 72 % (31-73) Lymphocytes (%) (Auto) 19 % (24-48) L Monocytes (%) (Auto) 6 % (0-9) Eosinophils (%) (Auto) 1 % (0-3) Basophils (%) (Auto) 2 % (0-3) Neutrophils # (Auto) 7.6 x10^3uL (1.8-7.7) Lymphocytes # (Auto) 1.9 x10^3/uL (1.0-4.8) Monocytes # (Auto) 0.7 x10^3/uL (0.0-1.1) Eosinophils # (Auto) 0.1 x10^3/uL (0.0-0.7) Basophils # (Auto) 0.2 x10^3/uL (0.0-0.2) Sodium Level 141 mmol/L (136-145) Potassium Level 4.1 mmol/L (3.5-5.1) Chloride Level 105 mmol/L (98-107) Carbon Dioxide Level 27 mmol/L (21-32) Anion Gap 9 (6-14) Blood Urea Nitrogen 33 mg/dL (7-20) H Creatinine 4.9 mg/dL (0.6-1.0) H Estimated GFR (Cockcroft-Gault) 11.1 BUN/Creatinine Ratio 7 (6-20) Glucose Level 176 mg/dL (70-99) H Calcium Level 8.1 mg/dL (8.5-10.1) L Magnesium Level 2.0 mg/dL (1.8-2.4) Total Bilirubin 0.3 mg/dL (0.2-1.0) Aspartate Amino Transferase (AST) 29 U/L (15-37) Alanine Aminotransferase (ALT) 11 U/L (14-59) L Alkaline Phosphatase 109 U/L (46-116) Total Protein 6.4 g/dL (6.4-8.2) Albumin 2.5 g/dL (3.4-5.0) L Albumin/Globulin Ratio 0.6 (1.0-1.7) L Laboratory Tests 04/17/18 14:33 Laboratory Tests 04/17/18 14:33 EKG EKG EKG interpreted by me. EKG at 1341 showed normal sinus rhythm at rate of 93, leftward axis, LVH, T-wave abnormality in lateral leads, no acute ST and T-wave abnormalities.[] Radiology/Procedures Radiology/Procedures [] Course & Med Decision Making Course & Med Decision Making Pertinent Labs reviewed. (See chart for details) Evaluation of patient in ER showed 57-year-old female patient with history of end stage renal disease on hemodialysis who missed her dialysis yesterday brought in by EMS with complaining of low back pain and pain in the area of the chest dialysis catheter and AV fistula. Patient had normal electrolytes and physical exam except for anxiety. Patient treated with a dose of 25 g fentanyl and was able to fall asleep. She instructed to follow-up with her dialysis tomorrow. Dragon Disclaimer Dragon Disclaimer This electronic medical record was generated, in whole or in part, using a voice recognition dictation system. Departure Departure Impression: Primary Impression: Generalized pain Additional Impressions: ESRD (end stage renal disease) on dialysis Back pain Elevated blood pressure reading Anxiety Noncompliance with renal dialysis Disposition: HOME, SELF-CARE (at 1549) Condition: IMPROVED Referrals: NO PCP (PCP) Patient Instructions: Back Pain, Adult, Dialysis, End Stage Kidney Disease Additional Instructions: Follow-up with your dialysis as scheduled tomorrow Follow-up with your primary care physician in 3-5 days Return to ER if not getting better Scripts Hydrocodone/Apap 5-325 (NORCO 5-325 TABLET) 1 Each Tablet 1 TAB PO PRN Q6HRS PRN for PAIN, #10 TAB 0 Refills Prov: KIMBERLY DONOHUE MD 04/17/18 Problem Qualifiers KIMBERLY DONOHUE MD Apr 17, 2018 15:55
== END 2018-04-17 16:00 | disposition home or self-care (01) ==
LOC: ER 13:27
DX: I12.0 Hypertensive chronic kidney disease with stage 5 chronic kidney disease or end stage renal disease (principal); E11.22 Type 2 diabetes mellitus with diabetic chronic kidney disease; N18.6 End stage renal disease; Z99.2 Dependence on renal dialysis; E11.42 Type 2 diabetes mellitus with diabetic polyneuropathy; G89.29 Other chronic pain; E03.9 Hypothyroidism, unspecified; M79.10 Myalgia, unspecified site; F41.9 Anxiety disorder, unspecified; Z91.15 Patient's noncompliance with renal dialysis; Z90.710 Acquired absence of both cervix and uterus; Z88.5 Allergy status to narcotic agent
CPT/HCPCS: 36415; 71045; 80053; 83735; 85025; 93005; 96374; 99284; J3010

== ENCOUNTER 2018-05-01 12:14 | Emergency (ER) | payer OTHER ==
[~2018-05-01] VITALS: Ht 167.6 cm; Wt 61.2 kg
[~2018-05-01 12:14] MED LIST changes: +AMLO5TAB10 PO; -AMLO5TAB7 PO
[2018-05-01] MEDS: ACETAMINOPHEN 325 MG TABLET. PO ONE ×2 (13:00→15:54)
--- NOTE | 2018-05-01 13:03 | PHYS DOC ---
Past Medical History Past Medical History: Diabetes-Type II, Glaucoma, Hypertension, Hypothyroid, Renal Disease, Renal Failure, Other Additional Past Medical Histor: neuropathy, cataracts,CHRONIC PAIN,ESRD Past Surgical History: Hysterectomy, Other Additional Past Surgical Histo: PT POOR HISTORIAN,DIALYSIS CATHETER Alcohol Use: None Drug Use: None Adult General Chief Complaint Chief Complaint: PAIN CONTROL HPI HPI Patient is a 57-year-old female who presents to the emergency department via EMS. She has a history of end-stage renal disease as well as several other medical problems, and is on dialysis via left subclavian catheter Monday and Monday, her last dialysis being yesterday. The patient presents primarily complaining of pain all over, especially in her abdomen. She states she vomited once today. She has not had any chest pain per say, or shortness of breath. She denies any dizziness or lightheadedness, bloody emesis, numbness, weakness. She states she does make small amounts of urine still. She has not had any fevers or chills. There are no alleviating or exacerbating factors to the patient's symptoms. She does have a history of chronic pain, and review of the patient's prescription history reveals that she has had multiple providers writing pain medication for the patient. Review of Systems Review of Systems Constitutional: Denies fever or chills [] Eyes: Denies change in visual acuity, redness, or eye pain [] HENT: Denies nasal congestion or sore throat [] Respiratory: Denies cough or shortness of breath [] Cardiovascular: The patient denies any shortness of breath, chest pain, palpitations, or orthopnea[] GI: Denies bloody emesis, bloody stools or diarrhea [] : Denies dysuria or hematuria [] Musculoskeletal: Denies back pain or joint pain. Does complain of diffuse myalgias. [] Integument: Denies rash or skin lesions [] Neurologic: Denies headache, focal weakness or sensory changes [] Endocrine: Denies polyuria or polydipsia [] All other systems were reviewed and found to be within normal limits, except as documented in this note. Current Medications Current Medications Current Medications Medications (Trade) Dose Ordered Sig/Clarence Start Time Stop Time Status Last Admin Dose Admin Acetaminophen (Tylenol) 650 mg 1X ONCE 05/01/18 13:00 05/01/18 13:01 DC Allergies Allergies Allergies Coded Allergies Type Severity Reaction Last Updated Verified morphine Allergy Intermediate Itching 03/27/18 Yes Physical Exam Physical Exam PHYSICAL EXAM: CONSTITUTIONAL: Well developed, well nourished HEAD: normocephalic, atraumatic EENT: PERRL, EOMI. Conjunctivae normal color, sclerae non-icteric; moist mucous membranes. NECK: Supple, non-tender; no meningismus. LUNGS: Lungs CTA, breathing even and unlabored. Normal air movement. HEART: Regular rate and rhythm, no murmur CHEST: No deformity; non-tender ABDOMEN: The abdomen is soft, there is mild diffuse tenderness to palpation of the entire abdomen without focal tenderness, rebound, or guarding, bowel sounds are present, no masses or bruits. EXTREM: Normal ROM; no deformity, no calf tenderness. Normal pulses palpable in all extremities. There is no pedal edema. Hyperalgesia is present to palpation of the patient diffusely. SKIN: No rash; no diaphoresis NEURO: Alert; normal speech and cognition; CN's grossly intact; strength grossly intact without focal deficit. BACK: No CVA TTP. Current Patient Data Vital Signs Vital Signs Date Time Temp Pulse Resp B/P (MAP) Pulse Ox O2 Delivery O2 Flow Rate FiO2 05/01/18 12:20 97.9 90 22 186/85 (118) 99 Room Air 97.9 Lab Values Laboratory Tests Test 05/01/18 13:35 White Blood Count 10.6 x10^3/uL (4.0-11.0) Red Blood Count 3.44 x10^6/uL (3.50-5.40) L Hemoglobin 9.8 g/dL (12.0-15.5) L Hematocrit 30.5 % (36.0-47.0) L Mean Corpuscular Volume 89 fL (79-100) Mean Corpuscular Hemoglobin 29 pg (25-35) Mean Corpuscular Hemoglobin Concent 32 g/dL (31-37) Red Cell Distribution Width 16.3 % (11.5-14.5) H Platelet Count 358 x10^3/uL (140-400) Neutrophils (%) (Auto) 72 % (31-73) Lymphocytes (%) (Auto) 20 % (24-48) L Monocytes (%) (Auto) 6 % (0-9) Eosinophils (%) (Auto) 1 % (0-3) Basophils (%) (Auto) 1 % (0-3) Neutrophils # (Auto) 7.6 x10^3uL (1.8-7.7) Lymphocytes # (Auto) 2.1 x10^3/uL (1.0-4.8) Monocytes # (Auto) 0.6 x10^3/uL (0.0-1.1) Eosinophils # (Auto) 0.1 x10^3/uL (0.0-0.7) Basophils # (Auto) 0.1 x10^3/uL (0.0-0.2) Prothrombin Time 12.0 SEC (11.7-14.0) Prothrombin Time INR 0.9 (0.8-1.1) Sodium Level 147 mmol/L (136-145) H Potassium Level 4.0 mmol/L (3.5-5.1) Chloride Level 106 mmol/L (98-107) Carbon Dioxide Level 25 mmol/L (21-32) Anion Gap 16 (6-14) H Blood Urea Nitrogen 35 mg/dL (7-20) H Creatinine 5.0 mg/dL (0.6-1.0) H Estimated GFR (Cockcroft-Gault) 10.9 BUN/Creatinine Ratio 7 (6-20) Glucose Level 119 mg/dL (70-99) H Calcium Level 8.4 mg/dL (8.5-10.1) L Magnesium Level 2.0 mg/dL (1.8-2.4) Total Bilirubin 0.3 mg/dL (0.2-1.0) Aspartate Amino Transferase (AST) 24 U/L (15-37) Alanine Aminotransferase (ALT) 11 U/L (14-59) L Alkaline Phosphatase 105 U/L (46-116) Creatine Kinase 114 U/L (26-192) Creatine Kinase MB (Mass) 2.5 ng/mL (0.0-3.6) Creatine Kinase MB Relative Index 2.2 % (0-4) Troponin I Quantitative 0.041 ng/mL (0.000-0.055) Total Protein 6.0 g/dL (6.4-8.2) L Albumin 2.8 g/dL (3.4-5.0) L Albumin/Globulin Ratio 0.9 (1.0-1.7) L Lipase 599 U/L (73-393) H Laboratory Tests 05/01/18 13:35 Laboratory Tests 05/01/18 13:35 EKG EKG [Normal sinus rhythm at a rate of 92 beats for minute, borderline left axis deviation, normal intervals, nonspecific ST/T changes. There is lateral T wave inversion. EKG is unchanged compared to patient's prior EKG.] Radiology/Procedures Radiology/Procedures []PROCEDURE: CT ABDOMEN PELVIS WO CONTRAST Examination: CT ABDOMEN PELVIS WO CONTRAST History: abd pain Comparison/Correlation: 03/04/2018 CT abdomen and pelvis without contrast Findings: Axial images of the abdomen and pelvis were obtained without contrast. Sagittal and coronal reformatted images were provided. Small to moderate-sized right pleural effusion is present. Very small left pleural effusion noted. Pulmonary interstitial edema noted. Catheter tip is partially seen within the right atrium. Cardiomegaly seen. Mild anasarca. Circumferential wall thickening of the stomach is evident. Cholecystectomy noted. Unenhanced liver and pancreas are normal. Common bile duct is dilated in appearance present due to reservoir effect in this postcholecystectomy patient. Diameter of up to 1.8 cm noted. No intrahepatic biliary dilatation. Multiple bilateral renal calyceal calculi are present and small in size. Renal arterial calcification also is suggested but minimal. Left lower renal pole cyst appears be present. Subtle perinephric stranding anterolisthesis fracture thickening bilaterally is present. No hydronephrosis. Minimal right Mitchell's pouch ascites noted. Large quantity of stool is present in the colon. No extraluminal gas. Appendix is normal. Severe L1 to the S2 disc space narrowing with endplate sclerosis noted. Presacral fluid noted. Uterus is atrophic or absent. Impression: Bilateral pleural effusions, minimal ascites, anasarca. Large quantity of stool in the colon. No focal inflammatory process identified. PROCEDURE: PORTABLE CHEST 1V Indication:CHEST PAIN TECHNIQUE:Portable AP chest X-ray COMPARISON:04/22/2018 FINDINGS: Stable position of central venous catheter with its tip at the cavoatrial junction. Heart is normal in size. Diffuse bilateral interstitial opacities with focal patchy opacities in the right hilar and infrahilar region. No pneumothorax or large. Effusion. Chronic deformity of the right humeral greater tubercle. Visualized bony thorax is within normal limits. IMPRESSION: Findings suggests pulmonary edema or atypical/viral infection with superimposed right lower/middle lobe pneumonia. Course & Med Decision Making Course & Med Decision Making Pertinent Labs and Imaging studies reviewed. (See chart for details) [3:40 PM: The patient's condition remained stable. She is attempting to manipulate to get pain medication, both here and possibly a prescription, due to her pain. She complains of pain all over without acute focal pain at this time. Her blood pressures 170s over 120s. I did review her prescription history and she has numerous narcotic prescriptions from numerous providers in the past several months. I think it is appropriate to give narcotic pain medication, the patient declined Tylenol that was offered. I discussed importance of close follow-up and return precautions. The patient did make a suicidal gesture to the nurse, but this was on further clarification not active suicidal ideation and part of the patient's being manipulative and she declines being suicidal to me at this time. I will treat her with antibiotics for her pneumonia on x-ray.] Dragon Disclaimer Dragon Disclaimer This electronic medical record was generated, in whole or in part, using a voice recognition dictation system. Departure Departure Impression: Primary Impression: Chronic pain Additional Impressions: Pneumonia ESRD (end stage renal disease) Disposition: 01 HOME, SELF-CARE Condition: STABLE Patient Instructions: Chronic Pain, Pneumonia, Adult Scripts Doxycycline Hyclate (DOXYCYCLINE HYCLATE) 100 Mg Tablet 1 TAB PO BID, #14 TAB Prov: ADALBERTO RUFF MD 05/01/18 Problem Qualifiers ADALBERTO RUFF MD May 01, 2018 13:02
--- NOTE | 2018-05-01 13:14 | RAD ---
Indication:CHEST PAIN TECHNIQUE:Portable AP chest X-ray COMPARISON:04/22/2018 FINDINGS: Stable position of central venous catheter with its tip at the cavoatrial junction. Heart is normal in size. Diffuse bilateral interstitial opacities with focal patchy opacities in the right hilar and infrahilar region. No pneumothorax or large. Effusion. Chronic deformity of the right humeral greater tubercle. Visualized bony thorax is within normal limits. IMPRESSION: Findings suggests pulmonary edema or atypical/viral infection with superimposed right lower/middle lobe pneumonia. Electronically signed by: Beau oMise DO (05/01/2018 1:09 PM) [id number]
--- NOTE | 2018-05-01 13:49 | EKG ---
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
[2018-05-01 13:56] LABS: BASO # 0.1 x10^3/uL (0.0-0.2); BASO % 1 % (0-3); EOS # 0.1 x10^3/uL (0.0-0.7); EOS % 1 % (0-3); HEMATOCRIT 30.5 % (36.0-47.0); HEMOGLOBIN 9.8 g/dL (12.0-15.5); LYMPH # 2.1 x10^3/uL (1.0-4.8); LYMPH % 20 % (24-48); MEAN CORPUSCULAR HEMOGLOBIN 29 pg (25-35); MEAN CORPUSCULAR HGB CONC 32 g/dL (31-37); MEAN CORPUSCULAR VOLUME 89 fL (79-100); MONO # 0.6 x10^3/uL (0.0-1.1); MONO % 6 % (0-9); NEUT # 7.6 x10^3uL (1.8-7.7); NEUT % 72 % (31-73); PLATELET COUNT 358 x10^3/uL (140-400); RED BLOOD COUNT 3.44 x10^6/uL (3.50-5.40); RED CELL DISTRIBUTION WIDTH 16.3 % (11.5-14.5); WHITE BLOOD COUNT 10.6 x10^3/uL (4.0-11.0)
[2018-05-01 14:03] LABS: CALCIUM 8.4 mg/dL (8.5-10.1); GFR 10.9
[2018-05-01 14:09] LABS: ALBUMIN 2.8 g/dL (3.4-5.0); ALBUMIN/GLOBULIN RATIO 0.9 (1.0-1.7); TOTAL BILIRUBIN 0.3 mg/dL (0.2-1.0)
--- NOTE | 2018-05-01 14:55 | RAD ---
Examination: CT ABDOMEN PELVIS WO CONTRAST History: abd pain Comparison/Correlation: 03/04/2018 CT abdomen and pelvis without contrast Findings: Axial images of the abdomen and pelvis were obtained without contrast. Sagittal and coronal reformatted images were provided. Small to moderate-sized right pleural effusion is present. Very small left pleural effusion noted. Pulmonary interstitial edema noted. Catheter tip is partially seen within the right atrium. Cardiomegaly seen. Mild anasarca. Circumferential wall thickening of the stomach is evident. Cholecystectomy noted. Unenhanced liver and pancreas are normal. Common bile duct is dilated in appearance present due to reservoir effect in this postcholecystectomy patient. Diameter of up to 1.8 cm noted. No intrahepatic biliary dilatation. Multiple bilateral renal calyceal calculi are present and small in size. Renal arterial calcification also is suggested but minimal. Left lower renal pole cyst appears be present. Subtle perinephric stranding anterolisthesis fracture thickening bilaterally is present. No hydronephrosis. Minimal right Mitchell's pouch ascites noted. Large quantity of stool is present in the colon. No extraluminal gas. Appendix is normal. Severe L1 to the S2 disc space narrowing with endplate sclerosis noted. Presacral fluid noted. Uterus is atrophic or absent. Impression: Bilateral pleural effusions, minimal ascites, anasarca. Large quantity of stool in the colon. No focal inflammatory process identified. Electronically signed by: Ildefonso Alberto MD (05/01/2018 2:51 PM) [facility]
[2018-05-01 15:28] VITALS: BP 174/124
[2018-05-01] MEDS ORDERED: DOXY100T PO (15:46)
[2018-05-01] MEDS ORDERED: cloNIDine HCL 0.1 MG TABLET ONE (15:47)
[2018-07-11] MEDS ORDERED: HYDR-2761 PO (13:16)
[2018-10-12] MEDS ORDERED: ALPR0.5T6 PO (09:22)
[2018-10-12] MEDS ORDERED: HYDR-3164 PO (09:22)
[2018-10-23] MEDS ORDERED: AMOX1TAB10 PO (10:24)
== END 2018-05-01 15:58 | disposition home or self-care (01) ==
LOC: ER 12:14
DX: E11.22 Type 2 diabetes mellitus with diabetic chronic kidney disease (principal); I11.0 Hypertensive heart disease with heart failure; N18.6 End stage renal disease; J18.9 Pneumonia, unspecified organism; G89.29 Other chronic pain; R11.10 Vomiting, unspecified; E03.9 Hypothyroidism, unspecified; E11.39 Type 2 diabetes mellitus with other diabetic ophthalmic complication; E11.40 Type 2 diabetes mellitus with diabetic neuropathy, unspecified; E11.36 Type 2 diabetes mellitus with diabetic cataract; M79.18 Myalgia, other site; Z90.710 Acquired absence of both cervix and uterus; Z99.2 Dependence on renal dialysis; Z88.5 Allergy status to narcotic agent
CPT/HCPCS: 36415; 71045; 74176; 80053; 82553; 83690; 83735; 84484; 85025; 85610; 93005; 99284-25

== ENCOUNTER 2018-05-07 04:19 | Inpatient (IN) | payer OTHER ==
[~2018-05-07] VITALS: Ht 157.5 cm; Wt 55.8 kg
[~2018-05-07 04:19] MED LIST changes: +DOXY100T PO
[2018-05-07] MEDS ORDERED: KETOROLAC 15 MG/ML VIAL. IV ONE (05:00)
--- NOTE | 2018-05-07 05:01 | PHYS DOC ---
Past Medical History Past Medical History: Diabetes-Type II, Glaucoma, Hypertension, Hypothyroid, Renal Disease, Renal Failure, Other Additional Past Medical Histor: neuropathy, cataracts,CHRONIC PAIN,ESRD Past Surgical History: Hysterectomy, Other Additional Past Surgical Histo: PT POOR HISTORIAN,DIALYSIS CATHETER L. CHEST Alcohol Use: None Drug Use: None Adult General Chief Complaint Chief Complaint: DIALYSIS PROBLEM HPI HPI Patient is a 57 year old female who presents with left chest discomfort around her dialysis catheter. This has been present for the past 3 weeks since the dialysis catheter was placed. She has also had abdominal pain during this same time frame. No worsening of the discomfort with exertion. No nausea, vomiting, or diarrhea. No blood in the stool. No fevers. She has Monday and Monday dialysis. She has not seen her primary care physician nor structural biologist for this discomfort.[] Review of Systems Review of Systems Constitutional: Denies fever or chills [] Eyes: Denies change in visual acuity, redness, or eye pain [] HENT: Denies nasal congestion or sore throat [] Respiratory: Denies cough or shortness of breath [] Cardiovascular: No additional information not addressed in HPI [] GI: See history of present illness[] : Denies dysuria or hematuria [] Musculoskeletal: Denies back pain or joint pain [] Integument: Denies rash or skin lesions [] Neurologic: Denies headache, focal weakness or sensory changes [] Endocrine: Denies polyuria or polydipsia [] All other systems were reviewed and found to be within normal limits, except as documented in this note. Current Medications Current Medications Current Medications Medications (Trade) Dose Ordered Sig/Clarence Start Time Stop Time Status Last Admin Dose Admin Acetaminophen (Tylenol) 650 mg PRN Q4HRS PRN 05/07/18 05:45 05/08/18 05:44 UNV Ketorolac Tromethamine (Toradol 15mg Vial) 15 mg 1X ONCE 05/07/18 05:00 05/07/18 05:01 DC 05/07/18 05:12 15 MG Ondansetron HCl (Zofran) 4 mg PRN Q8HRS PRN 05/07/18 05:45 05/08/18 05:44 UNV Allergies Allergies Allergies Coded Allergies Type Severity Reaction Last Updated Verified morphine Allergy Intermediate Itching 03/27/18 Yes Physical Exam Physical Exam Constitutional: Well developed, well nourished, no acute distress, non-toxic appearance. [] HENT: Normocephalic, atraumatic, bilateral external ears normal, oropharynx moist, no oral exudates, nose normal. [] Eyes: PERRLA, EOMI, conjunctiva normal, no discharge. [] Neck: Normal range of motion, no tenderness, supple, no stridor. [] Cardiovascular:Heart rate regular rhythm, no murmur [] Lungs & Thorax: Bilateral breath sounds clear to auscultation, tenderness to palpation around her left chest dialysis port[] Abdomen: Bowel sounds normal, soft, no tenderness, no masses, no pulsatile masses. [] Skin: Warm, dry, no erythema, no rash. [] Back: No tenderness, no CVA tenderness. [] Extremities: No tenderness, no cyanosis, no clubbing, ROM intact, no edema. Thrill is present in the dialysis fistula in her left arm [] Neurologic: Alert and oriented X 3, normal motor function, normal sensory function, no focal deficits noted. [] Psychologic: Affect normal, judgement normal, mood normal. [] Current Patient Data Vital Signs Vital Signs Date Time Temp Pulse Resp B/P (MAP) Pulse Ox O2 Delivery O2 Flow Rate FiO2 05/07/18 04:35 96.7 102 20 163/77 (105) 94 Room Air 96.7 Lab Values Laboratory Tests Test 05/07/18 04:50 White Blood Count 15.5 x10^3/uL (4.0-11.0) H Red Blood Count 2.84 x10^6/uL (3.50-5.40) L Hemoglobin 8.2 g/dL (12.0-15.5) L Hematocrit 24.9 % (36.0-47.0) L Mean Corpuscular Volume 88 fL (79-100) Mean Corpuscular Hemoglobin 29 pg (25-35) Mean Corpuscular Hemoglobin Concent 33 g/dL (31-37) Red Cell Distribution Width 17.0 % (11.5-14.5) H Platelet Count 320 x10^3/uL (140-400) Neutrophils (%) (Auto) 75 % (31-73) H Lymphocytes (%) (Auto) 16 % (24-48) L Monocytes (%) (Auto) 8 % (0-9) Eosinophils (%) (Auto) 1 % (0-3) Basophils (%) (Auto) 1 % (0-3) Neutrophils # (Auto) 11.6 x10^3uL (1.8-7.7) H Lymphocytes # (Auto) 2.5 x10^3/uL (1.0-4.8) Monocytes # (Auto) 1.2 x10^3/uL (0.0-1.1) H Eosinophils # (Auto) 0.2 x10^3/uL (0.0-0.7) Basophils # (Auto) 0.1 x10^3/uL (0.0-0.2) Sodium Level 144 mmol/L (136-145) Potassium Level 4.3 mmol/L (3.5-5.1) Chloride Level 100 mmol/L (98-107) Carbon Dioxide Level 27 mmol/L (21-32) Anion Gap 17 (6-14) H Blood Urea Nitrogen 79 mg/dL (7-20) H Creatinine 8.2 mg/dL (0.6-1.0) H Estimated GFR (Cockcroft-Gault) 6.1 BUN/Creatinine Ratio 10 (6-20) Glucose Level 236 mg/dL (70-99) H Calcium Level 7.6 mg/dL (8.5-10.1) L Total Bilirubin 0.4 mg/dL (0.2-1.0) Aspartate Amino Transferase (AST) 42 U/L (15-37) H Alanine Aminotransferase (ALT) 20 U/L (14-59) Alkaline Phosphatase 120 U/L (46-116) H Troponin I Quantitative 0.074 ng/mL (0.000-0.055) Total Protein 6.0 g/dL (6.4-8.2) L Albumin 2.9 g/dL (3.4-5.0) L Albumin/Globulin Ratio 0.9 (1.0-1.7) L Lipase 419 U/L (73-393) H Laboratory Tests 05/07/18 04:50 Laboratory Tests 05/07/18 04:50 EKG EKG EKG shows a sinus rhythm at 99 bpm, normal axis, QTC [address] elevation, however ST segment is inverted in the lateral leads when compared with EKG of 05/01/2018. This was interpreted by me at 0443[] Radiology/Procedures Radiology/Procedures Chest x-ray shows increased markings consistent with congestive heart failure[] Course & Med Decision Making Course & Med Decision Making Pertinent Labs and Imaging studies reviewed. (See chart for details) ED course and medical decision making: Patient arrived, was placed in bed, tolerated exam well. Patient was given a dose of ketorolac which did improve her pain. EKG obtained showed changes when compared with previous so cardiac enzymes were ordered. These were noted to be elevated. This likely is result of her end-stage renal disease. Patient was given aspirin. Patient noted to be hypoxic along with the chest x-ray findings consistent with congestive heart failure. Consultation was made with the hospitalist service as well as nephrology for further inpatient care.[] Dragon Disclaimer Dragon Disclaimer This electronic medical record was generated, in whole or in part, using a voice recognition dictation system. Departure Departure Impression: Primary Impression: CRF (chronic renal failure) Additional Impressions: CHF exacerbation Acute electrocardiogram changes Elevated troponin Disposition: ADMITTED INPATIENT Admitting Physician: Other Condition: IMPROVED Referrals: NO PCP (PCP) Problem Qualifiers Primary Impression: CRF (chronic renal failure) Chronic kidney disease stage: unspecified stage Qualified Codes: N18.9 - Chronic kidney disease, unspecified Additional Impressions: CHF exacerbation Heart failure type: unspecified Qualified Codes: I50.9 - Heart failure, unspecified CHELSEA SANTILLAN DO May 07, 2018 05:01
[2018-05-07 05:07] LABS: BASO # 0.1 x10^3/uL (0.0-0.2); BASO % 1 % (0-3); EOS # 0.2 x10^3/uL (0.0-0.7); EOS % 1 % (0-3); HEMATOCRIT 24.9 % (36.0-47.0); HEMOGLOBIN 8.2 g/dL (12.0-15.5); LYMPH # 2.5 x10^3/uL (1.0-4.8); LYMPH % 16 % (24-48); MEAN CORPUSCULAR HEMOGLOBIN 29 pg (25-35); MEAN CORPUSCULAR HGB CONC 33 g/dL (31-37); MEAN CORPUSCULAR VOLUME 88 fL (79-100); MONO # 1.2 x10^3/uL (0.0-1.1); MONO % 8 % (0-9); NEUT # 11.6 x10^3uL (1.8-7.7); NEUT % 75 % (31-73); PLATELET COUNT 320 x10^3/uL (140-400); RED BLOOD COUNT 2.84 x10^6/uL (3.50-5.40); WHITE BLOOD COUNT 15.5 x10^3/uL (4.0-11.0)
[2018-05-07 05:10] LABS: CALCIUM 7.6 mg/dL (8.5-10.1); CREATININE 8.2 mg/dL (0.6-1.0); GFR 6.1
[2018-05-07 05:15] LABS: ALBUMIN 2.9 g/dL (3.4-5.0); ALBUMIN/GLOBULIN RATIO 0.9 (1.0-1.7); TOTAL BILIRUBIN 0.4 mg/dL (0.2-1.0)
[2018-05-07 05:20] LABS: POTASSIUM 4.3 mmol/L (3.5-5.1)
[2018-05-07] MEDS ORDERED: ONDANSETRON PF 4 MG/2 ML VIAL. IV PRN (05:45)
[2018-05-07] MEDS ORDERED: ACETAMINOPHEN 325 MG TABLET. PO PRN ×2 (05:45→09:30)
--- NOTE | 2018-05-07 05:50 | RAD ---
PORTABLE CHEST 1V Clinical History: Chest discomfort Technique: AP view of the chest was obtained at 05/07/2018 4:51 AM. Comparison: April 22, 2018. Findings: The heart is moderately enlarged. The pulmonary vessels appear full and congested and there is hazy and patchy opacities symmetrically in the mid and lower lungs. The lungs and pleural margins are clear. The left jugular dual-lumen catheter is again seen. Impression: 1. Moderate cardiomegaly. 2. Bilateral infiltrates could be pulmonary edema or pneumonia or ARDS. This appears mildly worse. Electronically signed by: Pj Holliday III, MD (05/07/2018 5:45 AM) [facility]
[2018-05-07] MEDS ORDERED: ASPIRIN CHEWABLE 81 MG TABLET. PO ONE (06:15)
[2018-05-07 07:00] VITALS: BP 167/96
--- NOTE | 2018-05-07 08:11 | NUR ---
Nursing Note 0800- Pt SOB with increased WOB complaining she "can't breathe". Pt on 4LNC instructed to take slow deep breaths in nose and out mouth, monitor showing O2 Sat in the low 80s. Venti mask placed at 50. Pt refusing venti mask and back on 4LNC at this time. O2 Sat remains in the low 80s. Physician paged at this time. Will continue to monitor. 0820- Pts P2 Sat down to mid 70s at this time. Pt instructed to put venti mask with compliance now. O2 up in mid 80s at this time. Spoke with dialysis who is on the way to begin treatment.
[2018-05-07] MEDS ORDERED: IV NORMAL SALINE 1000ML BAG 1,000 ML IV PRN ×2 (08:48)
--- NOTE | 2018-05-07 08:56 | PDOC2 ---
MORAIMA BERRY WINDOWS SERVER SPECIALIST 05/07/18 0856: CARDIAC CONSULT DATE OF CONSULT Date of Consult DATE: 05/07/18 TIME: 08:46 REASON FOR CONSULT Reason for Consult: Chest pain Elevated troponin REFERRING PHYSICIAN Referring Physician: Dr. Betts SOURCE Source: Chart review, Patient HISTORY OF PRESENT ILLNESS HISTORY OF PRESENT ILLNESS This is a 57 yo female, with a history of ESRD newly on HD, who presented secondary to secondary to shortness of breath, back pain, and chest pain around her dialysis catheter site. Patient is a MWF dialysis. Missed HD on Monday as she "did not have a ride.". Reports shortness of breath began two days ago. Has been progressive. Associated with orthopnea. No cough/fevers. Reports experiencing pain/tenderness around HD catheter site for the last 3 weeks. No associated dizziness, diaphoresis, palpitations, or PND. Back pain in chronic in nature PAST MEDICAL HISTORY Cardiovascular: CHF, HTN, Hyperlipidemia Pulmonary: Asthma, COPD CENTRAL NERVOUS SYSTEM: Periperal neuropathy GI: No pertinent hx Heme/Onc: No pertinent hx Hepatobiliary: No pertinent hx Psych: Anxiety Musculoskeletal: low back pain, Osteoarthritis Rheumatologic: Fibromyalgia Infectious disease: No pertinent hx ENT: No pertinent hx Renal/: Chronic renal failure (on HD) Endocrine: Diabetes, Hypothyroidism Dermatology: No pertinent hx PAST SURGICAL HISTORY Past Surgical History: No pertinent history FAMILY HISTORY Family History: Family History Unknown SOCIAL HISTORY Smoke: No ALCOHOL: none Drugs: None Lives: with Family CURRENT MEDICATIONS CURRENT MEDICATIONS Current Medications Medications (Trade) Dose Ordered Sig/Clarence Route PRN Reason Start Time Stop Time Status Last Admin Dose Admin Ketorolac Tromethamine (Toradol 15mg Vial) 15 mg 1X ONCE IV 05/07/18 05:00 05/07/18 05:01 DC 05/07/18 05:12 Aspirin (Children'S Aspirin) 324 mg 1X ONCE PO 05/07/18 06:15 05/07/18 06:16 DC 05/07/18 06:43 ALLERGIES ALLERGIES: Coded Allergies: morphine (Verified Allergy, Intermediate, Itching, 03/27/18) ROS Review of System 14 point ROS conducted with pertinent positives noted above in HPI. PHYSICAL EXAM General: Alert, Oriented X3, Cooperative, mild distress HEENT: Atraumatic, Mucous membr. moist/pink Lungs: Other (bibasilar crackles ) Abdomen: Soft, No tenderness Extremities: Other (trace LE edema, bilaterally) Skin: No significant lesion Neuro: Normal speech, Sensation intact Psych/Mental Status: Other (anxious ) MUSCULOSKELETAL: No deformity VITALS VITALS Vital Signs Date Time Temp Pulse Resp B/P (MAP) Pulse Ox O2 Delivery O2 Flow Rate FiO2 05/07/18 07:00 97.8 96 16 167/96 (119) 95 Nasal Cannula 4.0 97.8 LABS Lab: Laboratory Tests Test 05/07/18 04:50 White Blood Count 15.5 x10^3/uL (4.0-11.0) Red Blood Count 2.84 x10^6/uL (3.50-5.40) Hemoglobin 8.2 g/dL (12.0-15.5) Hematocrit 24.9 % (36.0-47.0) Mean Corpuscular Volume 88 fL (79-100) Mean Corpuscular Hemoglobin 29 pg (25-35) Mean Corpuscular Hemoglobin Concent 33 g/dL (31-37) Red Cell Distribution Width 17.0 % (11.5-14.5) Platelet Count 320 x10^3/uL (140-400) Neutrophils (%) (Auto) 75 % (31-73) Lymphocytes (%) (Auto) 16 % (24-48) Monocytes (%) (Auto) 8 % (0-9) Eosinophils (%) (Auto) 1 % (0-3) Basophils (%) (Auto) 1 % (0-3) Neutrophils # (Auto) 11.6 x10^3uL (1.8-7.7) Lymphocytes # (Auto) 2.5 x10^3/uL (1.0-4.8) Monocytes # (Auto) 1.2 x10^3/uL (0.0-1.1) Eosinophils # (Auto) 0.2 x10^3/uL (0.0-0.7) Basophils # (Auto) 0.1 x10^3/uL (0.0-0.2) Sodium Level 144 mmol/L (136-145) Potassium Level 4.3 mmol/L (3.5-5.1) Chloride Level 100 mmol/L (98-107) Carbon Dioxide Level 27 mmol/L (21-32) Anion Gap 17 (6-14) Blood Urea Nitrogen 79 mg/dL (7-20) Creatinine 8.2 mg/dL (0.6-1.0) Estimated GFR (Cockcroft-Gault) 6.1 BUN/Creatinine Ratio 10 (6-20) Glucose Level 236 mg/dL (70-99) Calcium Level 7.6 mg/dL (8.5-10.1) Total Bilirubin 0.4 mg/dL (0.2-1.0) Aspartate Amino Transf (AST/SGOT) 42 U/L (15-37) Alanine Aminotransferase (ALT/SGPT) 20 U/L (14-59) Alkaline Phosphatase 120 U/L (46-116) Troponin I Quantitative 0.074 ng/mL (0.000-0.055) Total Protein 6.0 g/dL (6.4-8.2) Albumin 2.9 g/dL (3.4-5.0) Albumin/Globulin Ratio 0.9 (1.0-1.7) Lipase 419 U/L (73-393) ECHOCARDIOGRAM ECHOCARDIOGRAM <Conclusion> The left ventricular systolic function is normal. The Ejection Fraction is 60-65%. There is normal LV segmental wall motion. Evidence for grade III diastolic dysfunction. There is moderate concentric left ventricular hypertrophy. Doppler and Color Flow revealed trace tricuspid valve regurgitation. There is no evidence of significant pericardial effusion. DATE: 03/05/18 1632 ASSESSMENT/PLAN ASSESSMENT/PLAN 1. Acute respiratory failure; secondary to a/c diastolic HF. requiring venti- mask. 2. Acute on chronic diastolic HF; recent echo with LVEF 60-65% as noted above. NT Pro BNP elevated. CXR with pul edema. Most probably secondary to missed HD 3. Chest pain, noncardiac. Tenderness around HD catheter site. 4. Mild troponin elevated; initial 0.074. Most probably type II, demand ischemia in the setting or ESRD, hypoxic respiratory failure, acute HF, and uncontrolled HTN 4. Accelerated hypertension; remains elevated 5. ESRD on HD; to dialyzed today. 6. Hyperlipidemia; statin 7. DM, II; as per PCP 8. Hypothyroidism; on replacement 9. Leukocytosis Recommendations Check ABG Fluid offloading via HD as per nephrology Resume home antiHTN therapy. Titrate as warranted Hydralazine IV PRN Supportive care Encouraged compliance Based upon risk factors, could consider outpatient ischemic evaluation. RILEY WHITE MD 05/07/18 7637: CARDIAC CONSULT ASSESSMENT/PLAN ASSESSMENT/PLAN Patient seen and examined. Agree with RESTAURANT RECRUITER's assessment and plan. Acute on chronic diastolic heart failure secondary to missed hemodialysis Continue fluid removal with hemodialysis per nephrology team Slight troponin elevation probably demand ischemia Recent 2-D echo showed normal LV systolic function without any wall motion abnormalities Resume home antihypertensives and titrate for better blood pressure control We will consider ischemic evaluation as an outpatient Thank you for your consultation MORAIMA BERRY APRN May 07, 2018 08:56 RILEY WHITE MD May 07, 2018 17:18
[2018-05-07] MEDS ORDERED: DIALYSIS PATIENT. MC PRN (09:00)
[2018-05-07 09:13] LABS: BASE EXCESS ABG 0 mmol/L (-3-3); HCO3 ABG 24 mmol/L (21-28); PCO2 ABG 39 mmHg (35-46); SAT O2 ABG 71 % (92-99)
[2018-05-07 09:21] LABS: PO2 ABG < 42 mmHg (75-108)
[2018-05-07 09:22] LABS: FIO2 ABG 40
[2018-05-07] MEDS ORDERED: hydrALAZINE 20 MG/ML VIAL. IVP PRN (09:30)
[2018-05-07] MEDS: cloNIDine TTS-2 1 PATCH PATCH TD SCH ×2 (10:00→16:17)
[2018-05-07] MEDS: amLODIPine BESYLATE 10 MG TABLET PO SCH ×2 (10:00→14:30)
--- NOTE | 2018-05-07 10:11 | PDOC ---
PULMONARY PROGRESS NOTES Vitals Vital Signs Date Time Temp Pulse Resp B/P (MAP) Pulse Ox O2 Delivery O2 Flow Rate FiO2 05/07/18 07:00 97.8 96 16 167/96 (119) 95 Nasal Cannula 4.0 97.8 Lungs: Clear Cardiovascular: S1, S2, Other Labs Laboratory Tests Test 05/07/18 04:50 05/07/18 08:35 05/07/18 09:00 White Blood Count 15.5 x10^3/uL (4.0-11.0) Red Blood Count 2.84 x10^6/uL (3.50-5.40) Hemoglobin 8.2 g/dL (12.0-15.5) Hematocrit 24.9 % (36.0-47.0) Mean Corpuscular Volume 88 fL (79-100) Mean Corpuscular Hemoglobin 29 pg (25-35) Mean Corpuscular Hemoglobin Concent 33 g/dL (31-37) Red Cell Distribution Width 17.0 % (11.5-14.5) Platelet Count 320 x10^3/uL (140-400) Neutrophils (%) (Auto) 75 % (31-73) Lymphocytes (%) (Auto) 16 % (24-48) Monocytes (%) (Auto) 8 % (0-9) Eosinophils (%) (Auto) 1 % (0-3) Basophils (%) (Auto) 1 % (0-3) Neutrophils # (Auto) 11.6 x10^3uL (1.8-7.7) Lymphocytes # (Auto) 2.5 x10^3/uL (1.0-4.8) Monocytes # (Auto) 1.2 x10^3/uL (0.0-1.1) Eosinophils # (Auto) 0.2 x10^3/uL (0.0-0.7) Basophils # (Auto) 0.1 x10^3/uL (0.0-0.2) Sodium Level 144 mmol/L (136-145) Potassium Level 4.3 mmol/L (3.5-5.1) Chloride Level 100 mmol/L (98-107) Carbon Dioxide Level 27 mmol/L (21-32) Anion Gap 17 (6-14) Blood Urea Nitrogen 79 mg/dL (7-20) Creatinine 8.2 mg/dL (0.6-1.0) Estimated GFR (Cockcroft-Gault) 6.1 BUN/Creatinine Ratio 10 (6-20) Glucose Level 236 mg/dL (70-99) Calcium Level 7.6 mg/dL (8.5-10.1) Total Bilirubin 0.4 mg/dL (0.2-1.0) Aspartate Amino Transf (AST/SGOT) 42 U/L (15-37) Alanine Aminotransferase (ALT/SGPT) 20 U/L (14-59) Alkaline Phosphatase 120 U/L (46-116) Troponin I Quantitative 0.074 ng/mL (0.000-0.055) 0.076 ng/mL (0.000-0.055) Total Protein 6.0 g/dL (6.4-8.2) Albumin 2.9 g/dL (3.4-5.0) Albumin/Globulin Ratio 0.9 (1.0-1.7) Lipase 419 U/L (73-393) RB-Vew-P-Type Natriuretic Peptide > 04859 pg/mL (0-124) O2 Saturation 71 % (92-99) Arterial Blood pH 7.42 (7.35-7.45) Arterial Blood pCO2 at Patient Temp 39 mmHg (35-46) Arterial Blood pO2 at Patient Temp < 42 mmHg (75-108) Arterial Blood HCO3 24 mmol/L (21-28) Arterial Blood Base Excess 0 mmol/L (-3-3) FiO2 40 Laboratory Tests Test 05/07/18 04:50 05/07/18 08:35 05/07/18 09:00 White Blood Count 15.5 x10^3/uL (4.0-11.0) Red Blood Count 2.84 x10^6/uL (3.50-5.40) Hemoglobin 8.2 g/dL (12.0-15.5) Hematocrit 24.9 % (36.0-47.0) Mean Corpuscular Volume 88 fL (79-100) Mean Corpuscular Hemoglobin 29 pg (25-35) Mean Corpuscular Hemoglobin Concent 33 g/dL (31-37) Red Cell Distribution Width 17.0 % (11.5-14.5) Platelet Count 320 x10^3/uL (140-400) Neutrophils (%) (Auto) 75 % (31-73) Lymphocytes (%) (Auto) 16 % (24-48) Monocytes (%) (Auto) 8 % (0-9) Eosinophils (%) (Auto) 1 % (0-3) Basophils (%) (Auto) 1 % (0-3) Neutrophils # (Auto) 11.6 x10^3uL (1.8-7.7) Lymphocytes # (Auto) 2.5 x10^3/uL (1.0-4.8) Monocytes # (Auto) 1.2 x10^3/uL (0.0-1.1) Eosinophils # (Auto) 0.2 x10^3/uL (0.0-0.7) Basophils # (Auto) 0.1 x10^3/uL (0.0-0.2) Sodium Level 144 mmol/L (136-145) Potassium Level 4.3 mmol/L (3.5-5.1) Chloride Level 100 mmol/L (98-107) Carbon Dioxide Level 27 mmol/L (21-32) Anion Gap 17 (6-14) Blood Urea Nitrogen 79 mg/dL (7-20) Creatinine 8.2 mg/dL (0.6-1.0) Estimated GFR (Cockcroft-Gault) 6.1 BUN/Creatinine Ratio 10 (6-20) Glucose Level 236 mg/dL (70-99) Calcium Level 7.6 mg/dL (8.5-10.1) Total Bilirubin 0.4 mg/dL (0.2-1.0) Aspartate Amino Transf (AST/SGOT) 42 U/L (15-37) Alanine Aminotransferase (ALT/SGPT) 20 U/L (14-59) Alkaline Phosphatase 120 U/L (46-116) Troponin I Quantitative 0.074 ng/mL (0.000-0.055) 0.076 ng/mL (0.000-0.055) Total Protein 6.0 g/dL (6.4-8.2) Albumin 2.9 g/dL (3.4-5.0) Albumin/Globulin Ratio 0.9 (1.0-1.7) Lipase 419 U/L (73-393) JW-Ozy-N-Type Natriuretic Peptide > 37235 pg/mL (0-124) O2 Saturation 71 % (92-99) Arterial Blood pH 7.42 (7.35-7.45) Arterial Blood pCO2 at Patient Temp 39 mmHg (35-46) Arterial Blood pO2 at Patient Temp < 42 mmHg (75-108) Arterial Blood HCO3 24 mmol/L (21-28) Arterial Blood Base Excess 0 mmol/L (-3-3) FiO2 40 Medications Active Scripts Medications Dose Route/Sig Max Daily Dose Days Date Category Doxycycline Hyclate 100 Mg Tablet 1 Tab PO BID 05/01/18 Rx Creon 6,000 Units Capsule (Lipase/Protease/Amylase) 1 Each Capsule.dr 1 Tab PO TID 04/23/18 Reported Hamel 5-325 Tablet (Acetaminophen/Hydrocodone Bitart) 1 Each Tablet 1 Tab PO PRN Q6HRS PRN 04/17/18 Rx Alprazolam 0.5 Mg Tablet 0.5 Mg PO PRN TID PRN MDD 1 04/06/18 Rx Proair Hfa (Albuterol Sulfate) 8.5 Gm Hfa.aer.ad 2 Puff INH BID PRN 03/22/18 Reported Lasix (Furosemide) 40 Mg Tablet 1 Tab PO BID 03/22/18 Reported Levothyroxine Sodium 50 Mcg Tablet 1 Tab PO DAILY 03/22/18 Reported Clonidine Tts-2 (Clonidine) 1 Each Patch.tdwk 1 Patch TD WEEKLY 03/22/18 Reported Novolog Flexpen (Insulin Aspart) 100 Unit/1 Ml Insuln.pen 25 Unit SQ TIDAC 03/22/18 Reported [Pantoprazole] 40 MG Tablet.dr 40 Mg PO DAILYAC 30 03/07/18 Rx Amlodipine Besylate 5 Mg Tablet 10 Mg PO DAILY 12/05/17 Reported Atorvastatin Calcium 40 Mg Tablet 40 Mg PO HS 12/05/17 Reported Latanoprost 2.5 Ml Drops 1 Drop EACHEYE HS 09/24/17 Reported Impression . NOTE DICTATED A RESP FAILURE SEC TO PULMONARY EDEMA AGREE WITH CURRENT RX RADHA FAGAN MD May 07, 2018 10:11
[2018-05-07 12:00] VITALS: BP 116/62
[2018-05-07] MEDS ORDERED: fentaNYL PF VIAL 100 MCG/2 ML VIAL IV PRN (12:45)
[2018-05-07] MEDS: oxyCODONE/APAP 5/325 1 TAB TABLET PO PRN ×2 (12:56→20:55)
[2018-05-07] MEDS: fentaNYL PF VIAL 100 MCG/2 ML VIAL IV PRN ×2 (13:03→16:21)
--- NOTE | 2018-05-07 14:21 | PDOC2 ---
CONSULT Date of Consult Date of Consult DATE: 05/07/18 TIME: 14:11 Reason for Consult Reason for Consult: SOB Referring Physician Referring Physician: ALYSSA Identification/Chief Complaint Chief Complaint SOB Source Source: Chart review History of Present Illness Reason for Visit: THIS IS A 57 YR OLD WITH SOB. IN MODERATE DISTRESS AND IN ACUTE RESP FAILURE. 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 SHE HAS ESRD AND IS ON OP HD MWF BUT SHE IS VERY NONCOMPLIANT. LABS ARE C/W ESRD. NOW ON FM FOR SUPPLEMENTAL O2. ESRD DUE TO HTN AND CURRENTLY BP IS UNCONTROLLED Past Medical History Cardiovascular: CHF, HTN, Hyperlipidemia Pulmonary: Asthma, COPD CENTRAL NERVOUS SYSTEM: Periperal neuropathy Psych: Anxiety Musculoskeletal: Other Rheumatologic: Fibromyalgia Renal/: Chronic renal failure (on HD) Endocrine: Diabetes, Hypothyroidism Past Surgical History Past Surgical History: No pertinent history Family History Family History: Family History Unknown Social History No ALCOHOL: none Drugs: None Lives: with Family Current Medications Current Medications Current Medications Ketorolac Tromethamine (Toradol 15mg Vial) 15 mg 1X ONCE IV Last administered on 05/07/18at 05:12; Start 05/07/18 at 05:00; Stop 05/07/18 at 05:01; Status DC Ondansetron HCl (Zofran) 4 mg PRN Q8HRS PRN IV NAUSEA/VOMITING; Start 05/07/18 at 05:45; Stop 05/08/18 at 05:44 Acetaminophen (Tylenol) 650 mg PRN Q4HRS PRN PO FEVER; Start 05/07/18 at 05:45 ; Stop 05/07/18 at 09:31; Status DC Aspirin (Children'S Aspirin) 324 mg 1X ONCE PO Last administered on 05/07/18at 06:43; Start 05/07/18 at 06:15; Stop 05/07/18 at 06:16; Status DC Sodium Chloride 1,000 ml @ 1,000 mls/hr Q1H PRN IV hypotension; Start 05/07/18 at 08:48; Stop 05/07/18 at 14:47 Sodium Chloride 1,000 ml @ 400 mls/hr Q2H30M PRN IV PATENCY; Start 05/07/18 at 08:48; Stop 05/07/18 at 20:47 Info (PHARMACY MONITORING -- do not chart) 1 each PRN DAILY PRN MC SEE COMMENTS ; Start 05/07/18 at 09:00 Acetaminophen (Tylenol) 650 mg PRN Q6HRS PRN PO PAIN; Start 05/07/18 at 09:30 Amlodipine Besylate (Norvasc) 10 mg DAILY PO ; Start 05/07/18 at 10:00 Atorvastatin Calcium (Lipitor) 40 mg HS PO ; Start 05/07/18 at 21:00 Clonidine HCl (Catapres Tts-2) 1 patch WEEKLY TD ; Start 05/07/18 at 10:00 Hydralazine HCl (Apresoline Inj) 10 mg PRN Q4HRS PRN IVP ELEVATED BP, SEE COMMENTS; Start 05/07/18 at 09:30 Fentanyl Citrate (Fentanyl 2ml Vial) 25 mcg PRN Q2HR PRN IV PAIN Last administered on 05/07/18at 13:03; Start 05/07/18 at 12:45 Oxycodone/ Acetaminophen (Percocet 5/325) 1 tab PRN Q4HRS PRN PO MODERATE TO SEVERE PAIN Last administered on 05/07/18at 12:56; Start 05/07/18 at 12:45 Fentanyl Citrate (Fentanyl 2ml Vial) 25 mcg PRN Q2HR PRN IV PAIN; Start at 12:45; Status UNV Active Scripts Active Doxycycline Hyclate 100 Mg Tablet 1 Tab PO BID Hank[place] 5-325 Tablet (Acetaminophen/Hydrocodone Bitart) 1 Each Tablet 1 Tab PO PRN Q6HRS PRN Alprazolam 0.5 Mg Tablet 0.5 Mg PO PRN TID PRN MDD 1 [Pantoprazole] 40 MG Tablet.dr 40 Mg PO DAILYAC 30 Days Reported Shante Knowles 6,000 Units Capsule (Lipase/Protease/Amylase) 1 Each Capsule. 1 Tab PO TID Proair Hfa (Albuterol Sulfate) 8.5 Gm Hfa.aer.ad 2 Puff INH BID PRN Lasix (Furosemide) 40 Mg Tablet 1 Tab PO BID Levothyroxine Sodium 50 Mcg Tablet 1 Tab PO DAILY Clonidine Tts-2 (Clonidine) 1 Each Patch.tdwk 1 Patch TD WEEKLY Novolog Flexpen (Insulin Aspart) 100 Unit/1 Ml Insuln.pen 25 Unit SQ TIDAC Amlodipine Besylate 5 Mg Tablet 10 Mg PO DAILY Atorvastatin Calcium 40 Mg Tablet 40 Mg PO HS Latanoprost 2.5 Ml Drops 1 Drop EACHEYE HS Allergies Allergies: Coded Allergies: morphine (Verified Allergy, Intermediate, Itching, 03/27/18) ROS Review of System UNABLE TO OBTAIN Physical Exam General: Alert, Cooperative, moderate distress HEENT: Atraumatic, PERRLA, Mucous membr. moist/pink Lungs: Other (DIFFUSE RALES) Heart: Regular rate, Normal S1, Normal S2 Abdomen: Normal bowel sounds, Soft, No hepatosplenomegaly Extremities: No clubbing, No cyanosis, No edema Skin: No rashes, No breakdown Neuro: Other (AIR HUNGER) Psych/Mental Status: Other (ANXIOUS) MUSCULOSKELETAL: No deformity, No swelling Vitals VITALS Vital Signs Date Time Temp Pulse Resp B/P (MAP) Pulse Ox O2 Delivery O2 Flow Rate FiO2 05/07/18 13:03 Nasal Cannula 4.0 05/07/18 12:56 97 05/07/18 12:00 97.5 102 16 116/62 (80) 97.5 Labs Labs Laboratory Tests Test 05/07/18 04:50 05/07/18 08:35 05/07/18 09:00 05/07/18 11:28 White Blood Count 15.5 x10^3/uL (4.0-11.0) Red Blood Count 2.84 x10^6/uL (3.50-5.40) Hemoglobin 8.2 g/dL (12.0-15.5) Hematocrit 24.9 % (36.0-47.0) Mean Corpuscular Volume 88 fL (79-100) Mean Corpuscular Hemoglobin 29 pg (25-35) Mean Corpuscular Hemoglobin Concent 33 g/dL (31-37) Red Cell Distribution Width 17.0 % (11.5-14.5) Platelet Count 320 x10^3/uL (140-400) Neutrophils (%) (Auto) 75 % (31-73) Lymphocytes (%) (Auto) 16 % (24-48) Monocytes (%) (Auto) 8 % (0-9) Eosinophils (%) (Auto) 1 % (0-3) Basophils (%) (Auto) 1 % (0-3) Neutrophils # (Auto) 11.6 x10^3uL (1.8-7.7) Lymphocytes # (Auto) 2.5 x10^3/uL (1.0-4.8) Monocytes # (Auto) 1.2 x10^3/uL (0.0-1.1) Eosinophils # (Auto) 0.2 x10^3/uL (0.0-0.7) Basophils # (Auto) 0.1 x10^3/uL (0.0-0.2) Sodium Level 144 mmol/L (136-145) Potassium Level 4.3 mmol/L (3.5-5.1) Chloride Level 100 mmol/L (98-107) Carbon Dioxide Level 27 mmol/L (21-32) Anion Gap 17 (6-14) Blood Urea Nitrogen 79 mg/dL (7-20) Creatinine 8.2 mg/dL (0.6-1.0) Estimated GFR (Cockcroft-Gault) 6.1 BUN/Creatinine Ratio 10 (6-20) Glucose Level 236 mg/dL (70-99) Calcium Level 7.6 mg/dL (8.5-10.1) Total Bilirubin 0.4 mg/dL (0.2-1.0) Aspartate Amino Transf (AST/SGOT) 42 U/L (15-37) Alanine Aminotransferase (ALT/SGPT) 20 U/L (14-59) Alkaline Phosphatase 120 U/L (46-116) Troponin I Quantitative 0.074 ng/mL (0.000-0.055) 0.076 ng/mL (0.000-0.055) 0.114 ng/mL (0.000-0.055) Total Protein 6.0 g/dL (6.4-8.2) Albumin 2.9 g/dL (3.4-5.0) Albumin/Globulin Ratio 0.9 (1.0-1.7) Lipase 419 U/L (73-393) OK-Crk-O-Type Natriuretic Peptide > 17189 pg/mL (0-124) O2 Saturation 71 % (92-99) Arterial Blood pH 7.42 (7.35-7.45) Arterial Blood pCO2 at Patient Temp 39 mmHg (35-46) Arterial Blood pO2 at Patient Temp < 42 mmHg (75-108) Arterial Blood HCO3 24 mmol/L (21-28) Arterial Blood Base Excess 0 mmol/L (-3-3) FiO2 40 Laboratory Tests Test 05/07/18 04:50 05/07/18 08:35 05/07/18 09:00 05/07/18 11:28 White Blood Count 15.5 x10^3/uL (4.0-11.0) Red Blood Count 2.84 x10^6/uL (3.50-5.40) Hemoglobin 8.2 g/dL (12.0-15.5) Hematocrit 24.9 % (36.0-47.0) Mean Corpuscular Volume 88 fL (79-100) Mean Corpuscular Hemoglobin 29 pg (25-35) Mean Corpuscular Hemoglobin Concent 33 g/dL (31-37) Red Cell Distribution Width 17.0 % (11.5-14.5) Platelet Count 320 x10^3/uL (140-400) Neutrophils (%) (Auto) 75 % (31-73) Lymphocytes (%) (Auto) 16 % (24-48) Monocytes (%) (Auto) 8 % (0-9) Eosinophils (%) (Auto) 1 % (0-3) Basophils (%) (Auto) 1 % (0-3) Neutrophils # (Auto) 11.6 x10^3uL (1.8-7.7) Lymphocytes # (Auto) 2.5 x10^3/uL (1.0-4.8) Monocytes # (Auto) 1.2 x10^3/uL (0.0-1.1) Eosinophils # (Auto) 0.2 x10^3/uL (0.0-0.7) Basophils # (Auto) 0.1 x10^3/uL (0.0-0.2) Sodium Level 144 mmol/L (136-145) Potassium Level 4.3 mmol/L (3.5-5.1) Chloride Level 100 mmol/L (98-107) Carbon Dioxide Level 27 mmol/L (21-32) Anion Gap 17 (6-14) Blood Urea Nitrogen 79 mg/dL (7-20) Creatinine 8.2 mg/dL (0.6-1.0) Estimated GFR (Cockcroft-Gault) 6.1 BUN/Creatinine Ratio 10 (6-20) Glucose Level 236 mg/dL (70-99) Calcium Level 7.6 mg/dL (8.5-10.1) Total Bilirubin 0.4 mg/dL (0.2-1.0) Aspartate Amino Transf (AST/SGOT) 42 U/L (15-37) Alanine Aminotransferase (ALT/SGPT) 20 U/L (14-59) Alkaline Phosphatase 120 U/L (46-116) Troponin I Quantitative 0.074 ng/mL (0.000-0.055) 0.076 ng/mL (0.000-0.055) 0.114 ng/mL (0.000-0.055) Total Protein 6.0 g/dL (6.4-8.2) Albumin 2.9 g/dL (3.4-5.0) Albumin/Globulin Ratio 0.9 (1.0-1.7) Lipase 419 U/L (73-393) TV-Ump-G-Type Natriuretic Peptide > 87755 pg/mL (0-124) O2 Saturation 71 % (92-99) Arterial Blood pH 7.42 (7.35-7.45) Arterial Blood pCO2 at Patient Temp 39 mmHg (35-46) Arterial Blood pO2 at Patient Temp < 42 mmHg (75-108) Arterial Blood HCO3 24 mmol/L (21-28) Arterial Blood Base Excess 0 mmol/L (-3-3) FiO2 40 Assessment/Plan Assessment/Plan IMP CHF-DIASTOLIC ACUTE HYPOXIC RESP FAILURE ANEMIA LEUCOCYTOSIS ANEMIA NON COMPLIANCE ESRD-MWF PLAN HD EMERGENTLY THIS AM UF TO DW TOLERATED EXPECT BP TO IMPROVE IT IS PARTLY VOLUME DEPENDENT START ARANESP ENC COMPLIANCE WILL FOLLOW BENY PAINTER MD May 07, 2018 14:21
[2018-05-07 15:01] LABS: INFLUENZA A PATIENT NEGATIVE (NEGATIVE); INFLUENZA B PATIENT NEGATIVE (NEGATIVE)
[2018-05-07 16:00] VITALS: BP 165/82
[2018-05-07] MEDS: ASPIRIN ENTERIC COATED 81 MG TABLET.DR. PO SCH (16:16)
[2018-05-07] MEDS: PANTOPRAZOLE 40 MG TABLET.DR. PO SCH (16:16)
--- NOTE | 2018-05-07 16:22 | NUR ---
SS following for discharge planning. SS reviewed pt chart. Pt is from home and currently requiring oxygen. Pt has dialysis chair time on M, W, F and per notes has a history of non compliance. PT/OT ordered. SS will await PT/OT evaluations and recommendations and will continue to follow for discharge planning.
--- NOTE | 2018-05-07 16:59 | CONS ---
DATE OF CONSULTATION: 05/07/2018 ATTENDING PHYSICIAN: Jeffrey Wilhelm MD REASON FOR CONSULTATION: The patient seen in pulmonary consultation at the request of Dr. Wilhelm for abnormal x-ray. Arterial blood gas revealed severe hypoxemia and respiratory failure. HISTORY OF PRESENT ILLNESS: The patient is a 57-year-old who is a very poor historian, has end-stage renal disease, on hemodialysis. Apparently, she had missed last dialysis treatment. She presented with increasing shortness of breath. She also had some left-sided chest discomfort around the dialysis catheter. She was also complaining of abdominal discomfort. She was evaluated. Arterial blood gas revealed a pH of 7.42, PaCO2 of 39, PaO2 of 42. The patient is currently in the intensive care unit. She is on a Venturi mask. She is severely short of breath, tachypneic. She has a cough, mostly nonproductive. She denies fever or chills. She is somewhat of a poor historian and really does not of gives me the impression that does not want to be bothered by multiple questions from different providers. I reviewed her x-ray, which revealed bilateral infiltrates compatible with CHF. Her white count is elevated. Electrolytes were noted. I reviewed her current medication list. She is receiving her home medications. She has been treated for hypertension. She is currently not on IV antibiotics. The patient does smoke. She continues to smoke. She denies any hemoptysis. PAST MEDICAL HISTORY: Type 2 diabetes, glaucoma, hypertension, end-stage renal disease, hypothyroidism. She has had neuropathy, chronic pain. PAST SURGICAL HISTORY: Hysterectomy. REVIEW OF SYSTEMS: CONSTITUTIONAL: No fever or chills. EYES: No change in visual acuity. HEENT: No nasal congestion or sore throat. RESPIRATORY: As indicated above. CARDIOVASCULAR: No chest pain. No pressure. GASTROINTESTINAL: No nausea, vomiting, diarrhea. GENITOURINARY: No dysuria or frequency. MUSCULOSKELETAL: Chronic pain. No localized muscle aches or joint pains. SKIN: No new skin rashes. NEUROLOGIC: No headaches, diplopia or blurred vision. PHYSICAL EXAMINATION: VITAL SIGNS: Since admission, she has been afebrile. Her respiratory rate is elevated. She is currently on Venturi mask. HEENT: Eyes, the sclerae were nonicteric. NECK: Jugular venous distention was markedly elevated. CHEST: Full expansion. LUNGS: Crackles and wheezes along with rhonchi bilaterally. CARDIOVASCULAR: Regular rate and rhythm with S1, S2, no S3. ABDOMEN: Soft, nontender and nondistended. EXTREMITIES: No clubbing or cyanosis. Minimal edema. LABORATORY DATA: Her labs were reviewed as indicated above. White count was noted. Electrolytes were noted. BUN and creatinine were noted. Albumin was low. Chest x-ray revealed bilateral pulmonary infiltrates compatible with CHF in comparison to the 04/22/2018 film, these are more prominent. IMPRESSION: 1. Acute hypoxemic respiratory failure. 2. Abnormal x-ray compatible with acute pulmonary edema, suspect secondary to fluid overload. 3. Leukocytosis, suspect reactive. 4. End-stage renal disease. 5. Chronic obstructive pulmonary disease, the patient smokes. 6. Hypertension. 7. Acute on chronic diastolic heart failure, previous ejection fraction 60%. 8. Chronic pain syndrome. 9. Elevated troponin level. 10. Severe protein malnutrition present upon admission. 11. Type 2 diabetes. PLAN: 1. Continue current hemodialysis with negative fluid imbalance. 2. No need for IV antibiotics. 3. Check influenza screen. 4. Continue hydralazine per Cardiology. 5. Control blood pressure. 6. Avoid excessive narcotic. I do appreciate the privilege in participating in the patient's care. RADHA FAGAN MD DR: RADHA/franny JOB#: [id number] / [id number]
--- NOTE | 2018-05-07 18:33 | HP ---
ADMIT DATE: 05/07/2018 CHIEF COMPLAINT: Shortness of breath and chest pain. HISTORY OF PRESENT ILLNESS: The patient is a pleasant middle-aged -[place] female who is on dialysis. She is well known to our service. She seems to have some chronic narcotic issues as well. She presented with shortness of breath. She missed her dialysis Monday because she "didn't have a ride." She has got associated anxiety that has been occurring for several days, rated at 10/10. Moving makes it worse. She tried some home meds, but that did not seem to help. I have discussed the case with ER physician. It appears the patient is volume overloaded and is in heart failure as well. We are going to admit the patient and consult Pulmonary, Cardiology and Nephrology. PAST MEDICAL HISTORY: Noncompliance, end-stage renal disease, narcotic dependence, hypertension, CHF, hyperlipidemia, COPD, neuropathy, low back pain, osteoarthritis, fibromyalgia, hypothyroidism, diabetes. ALLERGIES: MORPHINE. FAMILY HISTORY: Coronary artery disease. SOCIAL HISTORY: She denies drinking, smoking or taking drugs. She lives at home alone. Her daughter stays with her once in a while. She complains that she is very lonely. MEDICATIONS: Reviewed. She is on 13 including doxycycline, albuterol, atorvastatin, clonidine, amlodipine, hydrocodone, alprazolam, Lasix, lipase, insulin, Synthroid, Protonix. REVIEW OF SYSTEMS: GENERAL: No history of weight change, weakness or fevers. SKIN: No bruising, hair changes or rashes. EYES: No blurred, double or loss of vision. NOSE AND THROAT: No history of nosebleeds, hoarseness or sore throat. HEART: No history of palpitations, chest pain or shortness of breath on exertion. LUNGS: She complains of shortness of breath. GASTROINTESTINAL: Denies changes in appetite, nausea, vomiting, diarrhea or constipation. GENITOURINARY: No history of frequency, urgency, hesitancy or nocturia. NEUROLOGIC: Denies history of numbness, tingling, tremor or weakness. PSYCHIATRIC: No history of panic, anxiety or depression. ENDOCRINE: No history of heat or cold intolerance, polyuria or polydipsia. EXTREMITIES: Denies muscle weakness, joint pain, pain on walking or stiffness. MUSCULOSKELETAL: She complains of pain. PHYSICAL EXAMINATION: VITAL SIGNS: Temperature afebrile, pulse 80, respirations 18, blood pressure 165/82, O2 sats 90% on 3 liters. GENERAL: She is alert, cooperative, very anxious, complaining of pain, asking for IV narcotics. HEART: Distant S1, S2 with a soft S3. LUNGS: Bibasilar crackles. ABDOMEN: Soft. Decreased bowel sounds, a little tender. EXTREMITIES: Trace edema. SKIN: No rashes. ENDOCRINE: No thyromegaly. LYMPHATICS: No cervical nodes. HEMATOPOIETIC: No bruising. PSYCHIATRIC: She is depressed and anxious. LABORATORY DATA: White count 15, hemoglobin 8.2. Electrolytes: Sodium 144, potassium 4.3, chloride 100, bicarbonate 27, BUN 79, creatinine is 8.2, glucose 236. Chest x-ray shows vascular congestion. ASSESSMENT AND PLAN: Volume overload and acute on chronic systolic and diastolic heart failure, probably secondary to a combination of cardiomyopathy and end-stage renal disease and the fact that she has missed dialysis. The patient is being admitted. We will consult Cardiology and Pulmonary. Hope to dialyze her soon. If she responds to Lasix, we can try that. DuoNebs, O2 per nasal cannula, p.r.n. narcotics. Home meds, frequent labs, ICU monitoring. PROGNOSIS: Guarded. ANGELINA GOMEZ DO DR: BRANDIN/franny JOB#: [id number] / [id number]
[2018-05-07 20:00] VITALS: BP 153/84
[2018-05-07] MEDS ORDERED: ATORVASTATIN CALCIUM 40 MG TABLET. PO SCH (21:00)
[2018-05-07] MEDS ORDERED: LATANOPROST 0.005% OPHTH SOLUTION 2.5ML BOTTLE. OU SCH (21:00)
[2018-05-07] MEDS ORDERED: DARBEPOETIN ALFA 60 MCG/0.3 ML DISP.SYRIN. SQ SCH (21:00)
[2018-05-08] VITALS: BP 178/93
--- NOTE | 2018-05-08 02:34 | NUR ---
PATIENT REQUESTED PAIN MED AND SHE WAS ADVISED SHE CAN HAVE A PERCOCET FOR PAIN. SHE STATES SHE WANTS THE "IV PAIN" MED AND NOT THE PERCOCET. ADVISED PATIENT THAT SHE IS DUE FOR A PERCOCET FIRST AND SHE REFUSED PERCOCET, STATES SHE WILL WAIT FOR DR. GOMEZ IN THE MORNING TO GET HER FENTANYL BECAUSE, "HE WOULDN'T HAVE GIVEN IT TO ME IF HE DIDN'T WANT ME TO HAVE IT." ADVISED PATIENT THE PERCOCET FIRST. PATIENT REFUSED PERCOCET AND PULLED BLANKET OVER HER HEAD AND STATES "I WILL WAIT FOR DR. GOMEZ". REPLACED PERCOCET TO BIN.
[2018-05-08 04:00] VITALS: BP 161/88
[2018-05-08 06:03] LABS: BASO # 0.1 x10^3/uL (0.0-0.2); BASO % 1 % (0-3); EOS # 0.1 x10^3/uL (0.0-0.7); EOS % 1 % (0-3); HEMATOCRIT 28.2 % (36.0-47.0); HEMOGLOBIN 9.1 g/dL (12.0-15.5); LYMPH # 2.9 x10^3/uL (1.0-4.8); LYMPH % 23 % (24-48); MEAN CORPUSCULAR HEMOGLOBIN 28 pg (25-35); MEAN CORPUSCULAR HGB CONC 32 g/dL (31-37); MEAN CORPUSCULAR VOLUME 88 fL (79-100); MONO % 8 % (0-9); NEUT # 8.6 x10^3uL (1.8-7.7); NEUT % 68 % (31-73); PLATELET COUNT 289 x10^3/uL (140-400); RED CELL DISTRIBUTION WIDTH 17.2 % (11.5-14.5); WHITE BLOOD COUNT 12.7 x10^3/uL (4.0-11.0)
[2018-05-08 06:29] LABS: ALBUMIN 2.5 g/dL (3.4-5.0); ALBUMIN/GLOBULIN RATIO 0.6 (1.0-1.7); CALCIUM 8.8 mg/dL (8.5-10.1); CREATININE 5.1 mg/dL (0.6-1.0); GFR 10.6; POTASSIUM 4.5 mmol/L (3.5-5.1); TOTAL BILIRUBIN 0.4 mg/dL (0.2-1.0); TOTAL PROTEIN 6.5 g/dL (6.4-8.2)
[2018-05-08] MEDS: PANTOPRAZOLE 40 MG TABLET.DR. PO SCH (07:30)
[2018-05-08 08:00] VITALS: BP 172/107
[2018-05-08] MEDS: ASPIRIN ENTERIC COATED 81 MG TABLET.DR. PO SCH (08:00)
[2018-05-08] MEDS: amLODIPine BESYLATE 10 MG TABLET PO SCH (08:42)
--- NOTE | 2018-05-08 08:52 | PDOC ---
PULMONARY PROGRESS NOTES Subjective PT OFF 02 NOT MORE SOA Vitals Vital Signs Date Time Temp Pulse Resp B/P (MAP) Pulse Ox O2 Delivery O2 Flow Rate FiO2 05/08/18 08:42 96 172/107 05/08/18 04:00 98.5 96 Nasal Cannula 2.0 98.5 05/07/18 21:55 21 ROS: No Nausea, No Chest Pain, No Abdominal Pain, No Increase Cough Lungs: Clear Cardiovascular: S1, S2, Other Abdomen: Soft Neuro Exam: Alert Skin: Warm Labs Laboratory Tests Test 05/07/18 04:50 05/07/18 06:56 05/07/18 08:35 05/07/18 09:00 White Blood Count 15.5 x10^3/uL (4.0-11.0) Red Blood Count 2.84 x10^6/uL (3.50-5.40) Hemoglobin 8.2 g/dL (12.0-15.5) Hematocrit 24.9 % (36.0-47.0) Mean Corpuscular Volume 88 fL (79-100) Mean Corpuscular Hemoglobin 29 pg (25-35) Mean Corpuscular Hemoglobin Concent 33 g/dL (31-37) Red Cell Distribution Width 17.0 % (11.5-14.5) Platelet Count 320 x10^3/uL (140-400) Neutrophils (%) (Auto) 75 % (31-73) Lymphocytes (%) (Auto) 16 % (24-48) Monocytes (%) (Auto) 8 % (0-9) Eosinophils (%) (Auto) 1 % (0-3) Basophils (%) (Auto) 1 % (0-3) Neutrophils # (Auto) 11.6 x10^3uL (1.8-7.7) Lymphocytes # (Auto) 2.5 x10^3/uL (1.0-4.8) Monocytes # (Auto) 1.2 x10^3/uL (0.0-1.1) Eosinophils # (Auto) 0.2 x10^3/uL (0.0-0.7) Basophils # (Auto) 0.1 x10^3/uL (0.0-0.2) Sodium Level 144 mmol/L (136-145) Potassium Level 4.3 mmol/L (3.5-5.1) Chloride Level 100 mmol/L (98-107) Carbon Dioxide Level 27 mmol/L (21-32) Anion Gap 17 (6-14) Blood Urea Nitrogen 79 mg/dL (7-20) Creatinine 8.2 mg/dL (0.6-1.0) Estimated GFR (Cockcroft-Gault) 6.1 BUN/Creatinine Ratio 10 (6-20) Glucose Level 236 mg/dL (70-99) Calcium Level 7.6 mg/dL (8.5-10.1) Total Bilirubin 0.4 mg/dL (0.2-1.0) Aspartate Amino Transf (AST/SGOT) 42 U/L (15-37) Alanine Aminotransferase (ALT/SGPT) 20 U/L (14-59) Alkaline Phosphatase 120 U/L (46-116) Troponin I Quantitative 0.074 ng/mL (0.000-0.055) 0.076 ng/mL (0.000-0.055) Total Protein 6.0 g/dL (6.4-8.2) Albumin 2.9 g/dL (3.4-5.0) Albumin/Globulin Ratio 0.9 (1.0-1.7) Lipase 419 U/L (73-393) Nasal Screen MRSA (PCR) Negative (Negative) KD-Gvp-L-Type Natriuretic Peptide > 59865 pg/mL (0-124) O2 Saturation 71 % (92-99) Arterial Blood pH 7.42 (7.35-7.45) Arterial Blood pCO2 at Patient Temp 39 mmHg (35-46) Arterial Blood pO2 at Patient Temp < 42 mmHg (75-108) Arterial Blood HCO3 24 mmol/L (21-28) Arterial Blood Base Excess 0 mmol/L (-3-3) FiO2 40 Test 05/07/18 11:28 05/07/18 14:00 05/08/18 04:55 Troponin I Quantitative 0.114 ng/mL (0.000-0.055) Influenza Type A Antigen Negative (NEGATIVE) Influenza Type B Antigen Negative (NEGATIVE) White Blood Count 12.7 x10^3/uL (4.0-11.0) Red Blood Count 3.20 x10^6/uL (3.50-5.40) Hemoglobin 9.1 g/dL (12.0-15.5) Hematocrit 28.2 % (36.0-47.0) Mean Corpuscular Volume 88 fL (79-100) Mean Corpuscular Hemoglobin 28 pg (25-35) Mean Corpuscular Hemoglobin Concent 32 g/dL (31-37) Red Cell Distribution Width 17.2 % (11.5-14.5) Platelet Count 289 x10^3/uL (140-400) Neutrophils (%) (Auto) 68 % (31-73) Lymphocytes (%) (Auto) 23 % (24-48) Monocytes (%) (Auto) 8 % (0-9) Eosinophils (%) (Auto) 1 % (0-3) Basophils (%) (Auto) 1 % (0-3) Neutrophils # (Auto) 8.6 x10^3uL (1.8-7.7) Lymphocytes # (Auto) 2.9 x10^3/uL (1.0-4.8) Monocytes # (Auto) 1.0 x10^3/uL (0.0-1.1) Eosinophils # (Auto) 0.1 x10^3/uL (0.0-0.7) Basophils # (Auto) 0.1 x10^3/uL (0.0-0.2) Sodium Level 140 mmol/L (136-145) Potassium Level 4.5 mmol/L (3.5-5.1) Chloride Level 102 mmol/L (98-107) Carbon Dioxide Level 27 mmol/L (21-32) Anion Gap 11 (6-14) Blood Urea Nitrogen 40 mg/dL (7-20) Creatinine 5.1 mg/dL (0.6-1.0) Estimated GFR (Cockcroft-Gault) 10.6 BUN/Creatinine Ratio 8 (6-20) Glucose Level 107 mg/dL (70-99) Calcium Level 8.8 mg/dL (8.5-10.1) Total Bilirubin 0.4 mg/dL (0.2-1.0) Aspartate Amino Transf (AST/SGOT) 33 U/L (15-37) Alanine Aminotransferase (ALT/SGPT) 16 U/L (14-59) Alkaline Phosphatase 87 U/L (46-116) Total Protein 6.5 g/dL (6.4-8.2) Albumin 2.5 g/dL (3.4-5.0) Albumin/Globulin Ratio 0.6 (1.0-1.7) Laboratory Tests Test 05/07/18 09:00 05/07/18 11:28 05/07/18 14:00 05/08/18 04:55 O2 Saturation 71 % (92-99) Arterial Blood pH 7.42 (7.35-7.45) Arterial Blood pCO2 at Patient Temp 39 mmHg (35-46) Arterial Blood pO2 at Patient Temp < 42 mmHg (75-108) Arterial Blood HCO3 24 mmol/L (21-28) Arterial Blood Base Excess 0 mmol/L (-3-3) FiO2 40 Troponin I Quantitative 0.114 ng/mL (0.000-0.055) Influenza Type A Antigen Negative (NEGATIVE) Influenza Type B Antigen Negative (NEGATIVE) White Blood Count 12.7 x10^3/uL (4.0-11.0) Red Blood Count 3.20 x10^6/uL (3.50-5.40) Hemoglobin 9.1 g/dL (12.0-15.5) Hematocrit 28.2 % (36.0-47.0) Mean Corpuscular Volume 88 fL (79-100) Mean Corpuscular Hemoglobin 28 pg (25-35) Mean Corpuscular Hemoglobin Concent 32 g/dL (31-37) Red Cell Distribution Width 17.2 % (11.5-14.5) Platelet Count 289 x10^3/uL (140-400) Neutrophils (%) (Auto) 68 % (31-73) Lymphocytes (%) (Auto) 23 % (24-48) Monocytes (%) (Auto) 8 % (0-9) Eosinophils (%) (Auto) 1 % (0-3) Basophils (%) (Auto) 1 % (0-3) Neutrophils # (Auto) 8.6 x10^3uL (1.8-7.7) Lymphocytes # (Auto) 2.9 x10^3/uL (1.0-4.8) Monocytes # (Auto) 1.0 x10^3/uL (0.0-1.1) Eosinophils # (Auto) 0.1 x10^3/uL (0.0-0.7) Basophils # (Auto) 0.1 x10^3/uL (0.0-0.2) Sodium Level 140 mmol/L (136-145) Potassium Level 4.5 mmol/L (3.5-5.1) Chloride Level 102 mmol/L (98-107) Carbon Dioxide Level 27 mmol/L (21-32) Anion Gap 11 (6-14) Blood Urea Nitrogen 40 mg/dL (7-20) Creatinine 5.1 mg/dL (0.6-1.0) Estimated GFR (Cockcroft-Gault) 10.6 BUN/Creatinine Ratio 8 (6-20) Glucose Level 107 mg/dL (70-99) Calcium Level 8.8 mg/dL (8.5-10.1) Total Bilirubin 0.4 mg/dL (0.2-1.0) Aspartate Amino Transf (AST/SGOT) 33 U/L (15-37) Alanine Aminotransferase (ALT/SGPT) 16 U/L (14-59) Alkaline Phosphatase 87 U/L (46-116) Total Protein 6.5 g/dL (6.4-8.2) Albumin 2.5 g/dL (3.4-5.0) Albumin/Globulin Ratio 0.6 (1.0-1.7) Medications Active Scripts Medications Dose Route/Sig Max Daily Dose Days Date Category Doxycycline Hyclate 100 Mg Tablet 1 Tab PO BID 05/01/18 Rx Shante Knowles 6,000 Units Capsule (Lipase/Protease/Amylase) 1 Each Capsule.dr 1 Tab PO TID 04/23/18 Reported [place] 5-325 Tablet (Acetaminophen/Hydrocodone Bitart) 1 Each Tablet 1 Tab PO PRN Q6HRS PRN 04/17/18 Rx Alprazolam 0.5 Mg Tablet 0.5 Mg PO PRN TID PRN MDD 1 04/06/18 Rx Proair Hfa (Albuterol Sulfate) 8.5 Gm Hfa.aer.ad 2 Puff INH BID PRN 03/22/18 Reported Lasix (Furosemide) 40 Mg Tablet 1 Tab PO BID 03/22/18 Reported Levothyroxine Sodium 50 Mcg Tablet 1 Tab PO DAILY 03/22/18 Reported Clonidine Tts-2 (Clonidine) 1 Each Patch.tdwk 1 Patch TD WEEKLY 03/22/18 Reported Novolog Flexpen (Insulin Aspart) 100 Unit/1 Ml Insuln.pen 25 Unit SQ TIDAC 03/22/18 Reported [Pantoprazole] 40 MG Tablet.dr 40 Mg PO DAILYAC 30 03/07/18 Rx Amlodipine Besylate 5 Mg Tablet 10 Mg PO DAILY 12/05/17 Reported Atorvastatin Calcium 40 Mg Tablet 40 Mg PO HS 12/05/17 Reported Latanoprost 2.5 Ml Drops 1 Drop EACHEYE HS 09/24/17 Reported Impression . IMPRESSION: 1. Acute hypoxemic respiratory failure. 2. Abnormal x-ray compatible with acute pulmonary edema, suspect secondary to fluid overload. 3. Leukocytosis, suspect reactive. 4. End-stage renal disease. 5. Chronic obstructive pulmonary disease, the patient smokes. 6. Hypertension. 7. Acute on chronic diastolic heart failure, previous ejection fraction 60%. 8. Chronic pain syndrome. 9. Elevated troponin level. 10. Severe protein malnutrition present upon admission. 11. Type 2 diabetes. Plan . NEGATIVE FLUID BALANCE HOME SOON OK BY ME D/W RN PT IS SEEKING NARCOTICS RADHA FAGAN MD May 08, 2018 08:52
--- NOTE | 2018-05-08 09:06 | NUR ---
Pt refusing to let nurse take temperature and to assess her at this time. Pt did allow for RN to complete some of the head to toe assessment. Pt refused am medications. After educating pt regarding compliance with medication administration, pt agreed to take only the amlodipine at this time. Pt states she has back pain but refuses to take percocet at this time. Pt yelled "Get out of my room!" Will continue to monitor.
[2018-05-08] MEDS: oxyCODONE/APAP 5/325 1 TAB TABLET PO PRN (10:13)
[2018-05-08 12:00] VITALS: BP 160/91
[2018-05-08] MEDS: fentaNYL PF VIAL 100 MCG/2 ML VIAL IV PRN (13:09)
--- NOTE | 2018-05-08 13:29 | PDOC ---
PROGRESS NOTES Chief Complaint Chief Complaint 1. ESRD 2. [id number]-odtkbeu heart failure 3. elevated troponin 4. abnormal x-ray (ARDS, acute pulmonary edema) likely secondary to fluid overload 5. hypoxia 6. HTN 7. T2DM 8. Tobacco Use Disorder History of Present Illness History of Present Illness pt was seen and examined in ICU for missing dialysis on monday due to "not having a ride". she is well known to service and history of narcotic issues. she has been being treated for bzvcw-oz-riwdebw heart failure with volume overload in addition to receiving hemodialysis. pt clinically improved. pt is no longer receiving O2 - denies SOB. pulm, cardio, and nephro have been following. Vitals Vitals Vital Signs Date Time Temp Pulse Resp B/P (MAP) Pulse Ox O2 Delivery O2 Flow Rate FiO2 05/08/18 12:00 91 12 160/91 (114) Room Air 05/08/18 08:00 95 05/08/18 04:00 98.5 2.0 98.5 Physical Exam General: Alert, Oriented X3, Cooperative, mild distress Heart: Regular rate, Normal S1, Normal S2 Lungs: Clear Abdomen: Soft, No tenderness Extremities: Other (trace LE edema, bilaterally) Skin: No rashes, No significant lesion Labs LABS Laboratory Tests Test 05/07/18 14:00 05/08/18 04:55 Influenza Type A Antigen Negative (NEGATIVE) Influenza Type B Antigen Negative (NEGATIVE) White Blood Count 12.7 x10^3/uL (4.0-11.0) Red Blood Count 3.20 x10^6/uL (3.50-5.40) Hemoglobin 9.1 g/dL (12.0-15.5) Hematocrit 28.2 % (36.0-47.0) Mean Corpuscular Volume 88 fL (79-100) Mean Corpuscular Hemoglobin 28 pg (25-35) Mean Corpuscular Hemoglobin Concent 32 g/dL (31-37) Red Cell Distribution Width 17.2 % (11.5-14.5) Platelet Count 289 x10^3/uL (140-400) Neutrophils (%) (Auto) 68 % (31-73) Lymphocytes (%) (Auto) 23 % (24-48) Monocytes (%) (Auto) 8 % (0-9) Eosinophils (%) (Auto) 1 % (0-3) Basophils (%) (Auto) 1 % (0-3) Neutrophils # (Auto) 8.6 x10^3uL (1.8-7.7) Lymphocytes # (Auto) 2.9 x10^3/uL (1.0-4.8) Monocytes # (Auto) 1.0 x10^3/uL (0.0-1.1) Eosinophils # (Auto) 0.1 x10^3/uL (0.0-0.7) Basophils # (Auto) 0.1 x10^3/uL (0.0-0.2) Sodium Level 140 mmol/L (136-145) Potassium Level 4.5 mmol/L (3.5-5.1) Chloride Level 102 mmol/L (98-107) Carbon Dioxide Level 27 mmol/L (21-32) Anion Gap 11 (6-14) Blood Urea Nitrogen 40 mg/dL (7-20) Creatinine 5.1 mg/dL (0.6-1.0) Estimated GFR (Cockcroft-Gault) 10.6 BUN/Creatinine Ratio 8 (6-20) Glucose Level 107 mg/dL (70-99) Calcium Level 8.8 mg/dL (8.5-10.1) Total Bilirubin 0.4 mg/dL (0.2-1.0) Aspartate Amino Transf (AST/SGOT) 33 U/L (15-37) Alanine Aminotransferase (ALT/SGPT) 16 U/L (14-59) Alkaline Phosphatase 87 U/L (46-116) Total Protein 6.5 g/dL (6.4-8.2) Albumin 2.5 g/dL (3.4-5.0) Albumin/Globulin Ratio 0.6 (1.0-1.7) Review of Systems Review of Systems general: denies fever, chills, night sweats. skin: dry, intact, no rash. cardiac: no chest pain/pressure, no murmur, no arrhythmia. respiratory: no cough, no pain on inspiration, no hemoptysis. Assessment and Plan Assessmemt and Plan Assessment 1. ESRD 2. zotkg-ow-ieejnpc heart failure 3. elevated troponin 4. abnormal x-ray (ARDS, acute pulmonary edema) likely secondary to fluid overload 5. hypoxia 6. HTN 7. T2DM 8. Tobacco Use Disorder Plan 1. Hemodialysis 2. ICU monitoring 3. Home medications 4. Labs 5. Fentanyl Patch 25 mcg #5 q72h 6. discharge disposition pending Comment Review of Relevant I have reviewed the following items pamela (where applicable) has been applied. Labs Laboratory Tests Test 05/07/18 04:50 05/07/18 06:56 05/07/18 08:35 05/07/18 09:00 White Blood Count 15.5 x10^3/uL (4.0-11.0) Red Blood Count 2.84 x10^6/uL (3.50-5.40) Hemoglobin 8.2 g/dL (12.0-15.5) Hematocrit 24.9 % (36.0-47.0) Mean Corpuscular Volume 88 fL (79-100) Mean Corpuscular Hemoglobin 29 pg (25-35) Mean Corpuscular Hemoglobin Concent 33 g/dL (31-37) Red Cell Distribution Width 17.0 % (11.5-14.5) Platelet Count 320 x10^3/uL (140-400) Neutrophils (%) (Auto) 75 % (31-73) Lymphocytes (%) (Auto) 16 % (24-48) Monocytes (%) (Auto) 8 % (0-9) Eosinophils (%) (Auto) 1 % (0-3) Basophils (%) (Auto) 1 % (0-3) Neutrophils # (Auto) 11.6 x10^3uL (1.8-7.7) Lymphocytes # (Auto) 2.5 x10^3/uL (1.0-4.8) Monocytes # (Auto) 1.2 x10^3/uL (0.0-1.1) Eosinophils # (Auto) 0.2 x10^3/uL (0.0-0.7) Basophils # (Auto) 0.1 x10^3/uL (0.0-0.2) Sodium Level 144 mmol/L (136-145) Potassium Level 4.3 mmol/L (3.5-5.1) Chloride Level 100 mmol/L (98-107) Carbon Dioxide Level 27 mmol/L (21-32) Anion Gap 17 (6-14) Blood Urea Nitrogen 79 mg/dL (7-20) Creatinine 8.2 mg/dL (0.6-1.0) Estimated GFR (Cockcroft-Gault) 6.1 BUN/Creatinine Ratio 10 (6-20) Glucose Level 236 mg/dL (70-99) Calcium Level 7.6 mg/dL (8.5-10.1) Total Bilirubin 0.4 mg/dL (0.2-1.0) Aspartate Amino Transf (AST/SGOT) 42 U/L (15-37) Alanine Aminotransferase (ALT/SGPT) 20 U/L (14-59) Alkaline Phosphatase 120 U/L (46-116) Troponin I Quantitative 0.074 ng/mL (0.000-0.055) 0.076 ng/mL (0.000-0.055) Total Protein 6.0 g/dL (6.4-8.2) Albumin 2.9 g/dL (3.4-5.0) Albumin/Globulin Ratio 0.9 (1.0-1.7) Lipase 419 U/L (73-393) Nasal Screen MRSA (PCR) Negative (Negative) GY-Nej-A-Type Natriuretic Peptide > 04203 pg/mL (0-124) O2 Saturation 71 % (92-99) Arterial Blood pH 7.42 (7.35-7.45) Arterial Blood pCO2 at Patient Temp 39 mmHg (35-46) Arterial Blood pO2 at Patient Temp < 42 mmHg (75-108) Arterial Blood HCO3 24 mmol/L (21-28) Arterial Blood Base Excess 0 mmol/L (-3-3) FiO2 40 Test 05/07/18 11:28 05/07/18 14:00 05/08/18 04:55 Troponin I Quantitative 0.114 ng/mL (0.000-0.055) Influenza Type A Antigen Negative (NEGATIVE) Influenza Type B Antigen Negative (NEGATIVE) White Blood Count 12.7 x10^3/uL (4.0-11.0) Red Blood Count 3.20 x10^6/uL (3.50-5.40) Hemoglobin 9.1 g/dL (12.0-15.5) Hematocrit 28.2 % (36.0-47.0) Mean Corpuscular Volume 88 fL (79-100) Mean Corpuscular Hemoglobin 28 pg (25-35) Mean Corpuscular Hemoglobin Concent 32 g/dL (31-37) Red Cell Distribution Width 17.2 % (11.5-14.5) Platelet Count 289 x10^3/uL (140-400) Neutrophils (%) (Auto) 68 % (31-73) Lymphocytes (%) (Auto) 23 % (24-48) Monocytes (%) (Auto) 8 % (0-9) Eosinophils (%) (Auto) 1 % (0-3) Basophils (%) (Auto) 1 % (0-3) Neutrophils # (Auto) 8.6 x10^3uL (1.8-7.7) Lymphocytes # (Auto) 2.9 x10^3/uL (1.0-4.8) Monocytes # (Auto) 1.0 x10^3/uL (0.0-1.1) Eosinophils # (Auto) 0.1 x10^3/uL (0.0-0.7) Basophils # (Auto) 0.1 x10^3/uL (0.0-0.2) Sodium Level 140 mmol/L (136-145) Potassium Level 4.5 mmol/L (3.5-5.1) Chloride Level 102 mmol/L (98-107) Carbon Dioxide Level 27 mmol/L (21-32) Anion Gap 11 (6-14) Blood Urea Nitrogen 40 mg/dL (7-20) Creatinine 5.1 mg/dL (0.6-1.0) Estimated GFR (Cockcroft-Gault) 10.6 BUN/Creatinine Ratio 8 (6-20) Glucose Level 107 mg/dL (70-99) Calcium Level 8.8 mg/dL (8.5-10.1) Total Bilirubin 0.4 mg/dL (0.2-1.0) Aspartate Amino Transf (AST/SGOT) 33 U/L (15-37) Alanine Aminotransferase (ALT/SGPT) 16 U/L (14-59) Alkaline Phosphatase 87 U/L (46-116) Total Protein 6.5 g/dL (6.4-8.2) Albumin 2.5 g/dL (3.4-5.0) Albumin/Globulin Ratio 0.6 (1.0-1.7) Laboratory Tests Test 05/07/18 14:00 05/08/18 04:55 Influenza Type A Antigen Negative (NEGATIVE) Influenza Type B Antigen Negative (NEGATIVE) White Blood Count 12.7 x10^3/uL (4.0-11.0) Red Blood Count 3.20 x10^6/uL (3.50-5.40) Hemoglobin 9.1 g/dL (12.0-15.5) Hematocrit 28.2 % (36.0-47.0) Mean Corpuscular Volume 88 fL (79-100) Mean Corpuscular Hemoglobin 28 pg (25-35) Mean Corpuscular Hemoglobin Concent 32 g/dL (31-37) Red Cell Distribution Width 17.2 % (11.5-14.5) Platelet Count 289 x10^3/uL (140-400) Neutrophils (%) (Auto) 68 % (31-73) Lymphocytes (%) (Auto) 23 % (24-48) Monocytes (%) (Auto) 8 % (0-9) Eosinophils (%) (Auto) 1 % (0-3) Basophils (%) (Auto) 1 % (0-3) Neutrophils # (Auto) 8.6 x10^3uL (1.8-7.7) Lymphocytes # (Auto) 2.9 x10^3/uL (1.0-4.8) Monocytes # (Auto) 1.0 x10^3/uL (0.0-1.1) Eosinophils # (Auto) 0.1 x10^3/uL (0.0-0.7) Basophils # (Auto) 0.1 x10^3/uL (0.0-0.2) Sodium Level 140 mmol/L (136-145) Potassium Level 4.5 mmol/L (3.5-5.1) Chloride Level 102 mmol/L (98-107) Carbon Dioxide Level 27 mmol/L (21-32) Anion Gap 11 (6-14) Blood Urea Nitrogen 40 mg/dL (7-20) Creatinine 5.1 mg/dL (0.6-1.0) Estimated GFR (Cockcroft-Gault) 10.6 BUN/Creatinine Ratio 8 (6-20) Glucose Level 107 mg/dL (70-99) Calcium Level 8.8 mg/dL (8.5-10.1) Total Bilirubin 0.4 mg/dL (0.2-1.0) Aspartate Amino Transf (AST/SGOT) 33 U/L (15-37) Alanine Aminotransferase (ALT/SGPT) 16 U/L (14-59) Alkaline Phosphatase 87 U/L (46-116) Total Protein 6.5 g/dL (6.4-8.2) Albumin 2.5 g/dL (3.4-5.0) Albumin/Globulin Ratio 0.6 (1.0-1.7) Microbiology 05/07/18 Blood Culture - Preliminary, Resulted NO GROWTH AFTER 1 DAY Medications Current Medications Ketorolac Tromethamine (Toradol 15mg Vial) 15 mg 1X ONCE IV Last administered on 05/07/18at 05:12; Start 05/07/18 at 05:00; Stop 05/07/18 at 05:01; Status DC Ondansetron HCl (Zofran) 4 mg PRN Q8HRS PRN IV NAUSEA/VOMITING; Start 05/07/18 at 05:45; Stop 05/08/18 at 05:44; Status DC Acetaminophen (Tylenol) 650 mg PRN Q4HRS PRN PO FEVER; Start 05/07/18 at 05:45 ; Stop 05/07/18 at 09:31; Status DC Aspirin (Children'S Aspirin) 324 mg 1X ONCE PO Last administered on 05/07/18at 06:43; Start 05/07/18 at 06:15; Stop 05/07/18 at 06:16; Status DC Sodium Chloride 1,000 ml @ 1,000 mls/hr Q1H PRN IV hypotension; Start 05/07/18 at 08:48; Stop 05/07/18 at 14:47; Status DC Sodium Chloride 1,000 ml @ 400 mls/hr Q2H30M PRN IV PATENCY; Start 05/07/18 at 08:48; Stop 05/07/18 at 20:47; Status DC Info (PHARMACY MONITORING -- do not chart) 1 each PRN DAILY PRN MC SEE COMMENTS ; Start 05/07/18 at 09:00 Acetaminophen (Tylenol) 650 mg PRN Q6HRS PRN PO MILD PAIN; Start 05/07/18 at 09 :30 Amlodipine Besylate (Norvasc) 10 mg DAILY PO Last administered on 05/08/18at 08: 42; Start 05/07/18 at 10:00 Atorvastatin Calcium (Lipitor) 40 mg HS PO Last administered on 05/07/18 20:55 ; Start 05/07/18 at 21:00 Clonidine HCl (Catapres Tts-2) 1 patch WEEKLY TD Last administered on 16:17; Start 05/07/18 at 10:00 Hydralazine HCl (Apresoline Inj) 10 mg PRN Q4HRS PRN IVP ELEVATED BP, SEE COMMENTS Last administered on 05/08/18 10:16; Start 05/07/18 at 09:30 Fentanyl Citrate (Fentanyl 2ml Vial) 25 mcg PRN Q2HR PRN IV PAIN Last administered on 05/08/18 13:09; Start 05/07/18 at 12:45 Oxycodone/ Acetaminophen (Percocet 5/325) 1 tab PRN Q4HRS PRN PO MODERATE TO SEVERE PAIN Last administered on 05/08/18 10:13; Start 05/07/18 at 12:45 Fentanyl Citrate (Fentanyl 2ml Vial) 25 mcg PRN Q2HR PRN IV PAIN; Start at 12:45; Status UNV Darbepoetin Jarrett (Aranesp) 60 mcg Mo SQ Last administered on 05/07/18 20:57; Start 05/07/18 at 21:00 Latanoprost (Xalatan) 1 drop QHS OU Last administered on 05/07/18 20:55; Start 05/07/18 at 21:00 Pantoprazole Sodium (Protonix) 40 mg DAILYAC PO Last administered on 05/07/18 16:16; Start 05/07/18 at 16:30 Aspirin (Ecotrin) 81 mg DAILYWBKFT PO Last administered on 05/07/18 16:16; Start 05/07/18 at 16:00 Fentanyl (Duragesic 25mcg/ Hr Patch) 1 patch 1X ONCE TD ; Start 05/08/18 at 13: 30; Stop 05/08/18 at 13:31 Active Scripts Active Doxycycline Hyclate 100 Mg Tablet 1 Tab PO BID [place] 5-325 Tablet (Acetaminophen/Hydrocodone Bitart) 1 Each Tablet 1 Tab PO PRN Q6HRS PRN Alprazolam 0.5 Mg Tablet 0.5 Mg PO PRN TID PRN MDD 1 [Pantoprazole] 40 MG Tablet.dr 40 Mg PO DAILYAC 30 Days Reported [place] 6,000 Units Capsule (Lipase/Protease/Amylase) 1 Each Capsule. 1 Tab PO TID Proair Hfa (Albuterol Sulfate) 8.5 Gm Hfa.aer.ad 2 Puff INH BID PRN Lasix (Furosemide) 40 Mg Tablet 1 Tab PO BID Levothyroxine Sodium 50 Mcg Tablet 1 Tab PO DAILY Clonidine Tts-2 (Clonidine) 1 Each Patch.tdwk 1 Patch TD WEEKLY Novolog Flexpen (Insulin Aspart) 100 Unit/1 Ml Insuln.pen 25 Unit SQ TIDAC Amlodipine Besylate 5 Mg Tablet 10 Mg PO DAILY Atorvastatin Calcium 40 Mg Tablet 40 Mg PO HS Latanoprost 2.5 Ml Drops 1 Drop EACHEYE HS Vitals/I & O Vital Sign - Last 24 Hours 05/07/18 05/07/18 05/07/18 05/07/18 14:30 16:00 16:00 16:21 Temp 98.5 98.5 Pulse 96 95 Resp 16 B/P (MAP) 174/93 165/82 (109) Pulse Ox 96 O2 Delivery Nasal Cannula Nasal Cannula Nasal Cannula O2 Flow Rate 3.0 3.0 3.0 05/07/18 05/07/18 05/07/18 05/07/18 20:00 20:00 20:55 21:55 Temp 98.7 98.7 Pulse 95 Resp 12 21 B/P (MAP) 153/84 (107) Pulse Ox 96 96 96 O2 Delivery Nasal Cannula Nasal Cannula Nasal Cannula O2 Flow Rate 2.0 2.0 2.0 2.0 05/08/18 05/08/18 05/08/18 05/08/18 00:00 04:00 08:00 08:00 Temp 98.5 98.5 98.5 98.5 Pulse 95 98 93 Resp 17 B/P (MAP) 178/93 (121) 161/88 (112) 172/107 (128) Pulse Ox 96 96 95 O2 Delivery Nasal Cannula Nasal Cannula Room Air Room Air O2 Flow Rate 2.0 2.0 05/08/18 05/08/18 05/08/18 05/08/18 08:42 10:13 10:16 11:19 Pulse 96 96 B/P (MAP) 172/107 170/86 O2 Delivery Room Air Room Air 05/08/18 12:00 Pulse 91 Resp 12 B/P (MAP) 160/91 (114) O2 Delivery Room Air Intake and Output 05/07/18 05/07/18 05/08/18 14:59 22:59 06:59 Intake Total 125 ml 80 ml Output Total 35 ml 0 ml Balance 90 ml 80 ml ANGELINA GOMEZ III DO May 08, 2018 13:29
[2018-05-08] MEDS ORDERED: fentaNYL 25MCG/HR PATCH 1 PATCH PATCH.TD72 TD ONE (13:30)
--- NOTE | 2018-05-08 13:31 | PDOC ---
ALLISON NASCIMENTO KEG INSPECTOR 05/08/18 1331: CARDIO Progress Notes Date and Time Date of Service 05/08/2018 Time of Evaluation 1320 Subjective Subjective: No Chest Pain, No shortness of breath, No Palpitations Vitals Vitals Vital Signs Date Time Temp Pulse Resp B/P (MAP) Pulse Ox O2 Delivery O2 Flow Rate FiO2 05/08/18 13:11 20 Room Air 05/08/18 12:00 91 160/91 (114) 05/08/18 08:00 95 05/08/18 04:00 98.5 2.0 98.5 Weight Weight [ ] Input and Output Intake and Output Intake and Output 05/08/18 06:59 Intake Total 205 ml Output Total 35 ml Balance 170 ml Intake Oral 205 ml Output Urine Total 35 ml Laboratory Labs Laboratory Tests Test 05/07/18 14:00 05/08/18 04:55 Influenza Type A Antigen Negative (NEGATIVE) Influenza Type B Antigen Negative (NEGATIVE) White Blood Count 12.7 x10^3/uL (4.0-11.0) Red Blood Count 3.20 x10^6/uL (3.50-5.40) Hemoglobin 9.1 g/dL (12.0-15.5) Hematocrit 28.2 % (36.0-47.0) Mean Corpuscular Volume 88 fL (79-100) Mean Corpuscular Hemoglobin 28 pg (25-35) Mean Corpuscular Hemoglobin Concent 32 g/dL (31-37) Red Cell Distribution Width 17.2 % (11.5-14.5) Platelet Count 289 x10^3/uL (140-400) Neutrophils (%) (Auto) 68 % (31-73) Lymphocytes (%) (Auto) 23 % (24-48) Monocytes (%) (Auto) 8 % (0-9) Eosinophils (%) (Auto) 1 % (0-3) Basophils (%) (Auto) 1 % (0-3) Neutrophils # (Auto) 8.6 x10^3uL (1.8-7.7) Lymphocytes # (Auto) 2.9 x10^3/uL (1.0-4.8) Monocytes # (Auto) 1.0 x10^3/uL (0.0-1.1) Eosinophils # (Auto) 0.1 x10^3/uL (0.0-0.7) Basophils # (Auto) 0.1 x10^3/uL (0.0-0.2) Sodium Level 140 mmol/L (136-145) Potassium Level 4.5 mmol/L (3.5-5.1) Chloride Level 102 mmol/L (98-107) Carbon Dioxide Level 27 mmol/L (21-32) Anion Gap 11 (6-14) Blood Urea Nitrogen 40 mg/dL (7-20) Creatinine 5.1 mg/dL (0.6-1.0) Estimated GFR (Cockcroft-Gault) 10.6 BUN/Creatinine Ratio 8 (6-20) Glucose Level 107 mg/dL (70-99) Calcium Level 8.8 mg/dL (8.5-10.1) Total Bilirubin 0.4 mg/dL (0.2-1.0) Aspartate Amino Transf (AST/SGOT) 33 U/L (15-37) Alanine Aminotransferase (ALT/SGPT) 16 U/L (14-59) Alkaline Phosphatase 87 U/L (46-116) Total Protein 6.5 g/dL (6.4-8.2) Albumin 2.5 g/dL (3.4-5.0) Albumin/Globulin Ratio 0.6 (1.0-1.7) Microbiology Micro Microbiology 05/07/18 Blood Culture - Preliminary, Resulted NO GROWTH AFTER 1 DAY Physical Exam HEENT: Neck Supple W Full Motion Chest: Symmetric LUNGS: Clear to Auscultation Heart: S1S2, RRR (SR) Abdomen: Soft N/T Extremities: No Calf Tenderness Neurology: alert, oriented, follow commands Assessment Assessment 1. Acute respiratory failure; secondary to a/c diastolic HF. Now compensated 2. Acute on chronic diastolic CHF: now compensated 3. Atypical chest pain, noncardiac. Tenderness around HD catheter site. 4. Mild troponin elevated; initial 0.074. multifactorial, demand mediated type 2 4. Accelerated hypertension: improved but still has labile episode 5. ESRD on HD; to dialyzed today. 6. Hyperlipidemia; statin 7. DM, II; as per PCP 8. Hypothyroidism; on replacement 9. Noncompliance: missed HD Recommendations 1. Fluid offloading via HD as per nephrology 2. Continue BP regimen. May need to add coreg. 3. Encouraged compliance 4. Based upon risk factors, could consider outpatient ischemic evaluation. 5. Follow up in 3-4 weeks RILEY WHITE MD 05/09/18 0834: CARDIO Progress Notes Assessment Assessment Patient seen and examined 05/08/18. Agree with CLIENT SUCCESS DIRECTOR's assessment and plan. Acute on chronic diastolic heart failure better compensated Continue fluid removal with hemodialysis per nephrology team Non-STEMI most probably demand ischemia Plan for ischemic evaluation as an outpatient ALLISON NASCIMENTO APRN May 08, 2018 13:31 RILEY WHITE MD May 09, 2018 08:34
--- NOTE | 2018-05-08 14:04 | PDOC ---
Renal-Progress Notes Subjective Notes Notes NO SOB History of Present Illness Hx of present illness REFUSING MEDS Vitals Vitals Vital Signs Date Time Temp Pulse Resp B/P (MAP) Pulse Ox O2 Delivery O2 Flow Rate FiO2 05/08/18 13:11 20 Room Air 05/08/18 12:00 91 160/91 (114) 05/08/18 08:00 95 05/08/18 04:00 98.5 2.0 98.5 Weight Weight [ ] I.O. Intake and Output Intake and Output 05/08/18 06:59 Intake Total 205 ml Output Total 35 ml Balance 170 ml Intake Oral 205 ml Output Urine Total 35 ml Labs Labs Laboratory Tests Test 05/08/18 04:55 White Blood Count 12.7 x10^3/uL (4.0-11.0) Red Blood Count 3.20 x10^6/uL (3.50-5.40) Hemoglobin 9.1 g/dL (12.0-15.5) Hematocrit 28.2 % (36.0-47.0) Mean Corpuscular Volume 88 fL (79-100) Mean Corpuscular Hemoglobin 28 pg (25-35) Mean Corpuscular Hemoglobin Concent 32 g/dL (31-37) Red Cell Distribution Width 17.2 % (11.5-14.5) Platelet Count 289 x10^3/uL (140-400) Neutrophils (%) (Auto) 68 % (31-73) Lymphocytes (%) (Auto) 23 % (24-48) Monocytes (%) (Auto) 8 % (0-9) Eosinophils (%) (Auto) 1 % (0-3) Basophils (%) (Auto) 1 % (0-3) Neutrophils # (Auto) 8.6 x10^3uL (1.8-7.7) Lymphocytes # (Auto) 2.9 x10^3/uL (1.0-4.8) Monocytes # (Auto) 1.0 x10^3/uL (0.0-1.1) Eosinophils # (Auto) 0.1 x10^3/uL (0.0-0.7) Basophils # (Auto) 0.1 x10^3/uL (0.0-0.2) Sodium Level 140 mmol/L (136-145) Potassium Level 4.5 mmol/L (3.5-5.1) Chloride Level 102 mmol/L (98-107) Carbon Dioxide Level 27 mmol/L (21-32) Anion Gap 11 (6-14) Blood Urea Nitrogen 40 mg/dL (7-20) Creatinine 5.1 mg/dL (0.6-1.0) Estimated GFR (Cockcroft-Gault) 10.6 BUN/Creatinine Ratio 8 (6-20) Glucose Level 107 mg/dL (70-99) Calcium Level 8.8 mg/dL (8.5-10.1) Total Bilirubin 0.4 mg/dL (0.2-1.0) Aspartate Amino Transf (AST/SGOT) 33 U/L (15-37) Alanine Aminotransferase (ALT/SGPT) 16 U/L (14-59) Alkaline Phosphatase 87 U/L (46-116) Total Protein 6.5 g/dL (6.4-8.2) Albumin 2.5 g/dL (3.4-5.0) Albumin/Globulin Ratio 0.6 (1.0-1.7) Micro Micro Microbiology 05/07/18 Blood Culture - Preliminary, Resulted NO GROWTH AFTER 1 DAY Review of Systems Constitutional: yes: alert, oriented Ears/Nose/Throat: Yes: no symptom reported Eyes: Yes: no symptom reported Pulmonary: Yes dyspnea Cardiovascular: Yes no symptom reported Gastrointestional: Yes: no symptom reported Genitourinary: Yes: no symptom reported Musculoskeletal: Yes: no symptom reported Skin: Yes no symptom reported Psychiatric/Neurological: Yes: no symptom reported Endocrine: Yes: no symptom reported Physical Exam General Appearance: no apparent distress Skin: warm Respiratory: decreased breath sounds Heart: S1S2 Abdomen: soft, bowel sounds present Genitourinary: bladder flat Extremities: pulses present Neurology: alert, oriented Assessment Assessment IMP D CHF NON COMPLIANCE ANEMIA HTN-MALIGNANT ESRD PLAN HD TOMORROW ENC COMPLIANCE WITH HD ENC COMPLIANCE WITH MEDS WILL FOLLOW NEEDED OK TO D/C ASKED PT TO KEEP HER OP HD TIME TOMORROW BENY PAINTER MD May 08, 2018 14:04
--- NOTE | 2018-05-08 14:15 | DS ---
DATE OF DISCHARGE: 05/08/2018 ADMISSION DIAGNOSES: Volume overload secondary to missing dialysis, shortness of breath, chronic systolic and diastolic heart failure, chronic pain, probable narcotic dependence. DISCHARGE DIAGNOSIS: Resolving volume overload. HOSPITAL COURSE: The patient is a pleasant middle-aged female, well known to our service. Basically, she is on dialysis and misses it periodically. She also has chronic narcotic dependence. She basically came in with shortness of breath, was noted to be in heart failure and volume overload. She was admitted. We consulted Nephrology, got her dialyzed. We also consulted Dr. Falcon for hypoxic respiratory failure and his opinion was to avoid IV antibiotics. At this time, we certainly agree and appreciate his input. I saw the patient this morning. Overall, she looks great. We plan to discharge with close outpatient followup. DISPOSITION: Home. ACTIVITY: As tolerated. DIET: Low sodium. MEDICATIONS: Please see MRAD. TOTAL TIME: 38 minutes. ANGELINA GOMEZ DO DR: BRANDIN/franny JOB#: [id number] / [id number]
[2018-05-08] MEDS ORDERED: CARV6.25 PO (14:37)
[2018-05-08] MEDS ORDERED: FENT1PAT15 TP (14:38)
[2018-05-08] MEDS ORDERED: CARVEDILOL 6.25 MG TABLET. PO SCH (15:00)
--- NOTE | 2018-05-08 15:08 | NUR ---
Discharge Note: OTTONIEL SMITH [facility] Discharge instructions and discharge home medications reviewed with Patient and a copy given. All questions have been answered and understanding verbalized. The following instructions and handouts were given: Follow up with Dr. Gilbert on June at 1000 and follow up with PCP in 1 week. Go to dialysis center tomorrow for treatment. Don't miss dialysis. Prescriptions given to pt. Fentanyl patch 25mcg Q72 hours #5 and coreg 6.25mg BID #60. Discontinued lines and drains: Peripheral IV intact. Patient discharged to Home or Self Care with Self via Wheelchair.
[2018-05-08 15:13] VITALS: BP 160/91
[2018-08-26] MEDS ORDERED: PROC5TAB34 PO (11:58)
[2018-10-12] MEDS ORDERED: ALPR0.5T6 PO (09:22)
[2018-10-12] MEDS ORDERED: HYDR-3164 PO (09:22)
[2018-10-23] MEDS ORDERED: AMOX1TAB10 PO (10:24)
== END 2018-05-08 15:30 | disposition home or self-care (01) | DRG 280 ==
LOC: ER 04:19 → 1 WEST ICU 06:13
PROVIDERS: ADMIT Internal Medicine; ATTEND Internal Medicine
PROC: 5A1D70Z Performance of Urinary Filtration, Intermittent, Less than 6 Hours Per Day (ICD-10-PCS; principal; 2018-05-07)
DX: I13.2 Hypertensive heart and chronic kidney disease with heart failure and with stage 5 chronic kidney disease, or end stage renal disease (principal); I21.4 Non-ST elevation (NSTEMI) myocardial infarction; N18.6 End stage renal disease; I50.43 Acute on chronic combined systolic (congestive) and diastolic (congestive) heart failure; J96.01 Acute respiratory failure with hypoxia; E43 Unspecified severe protein-calorie malnutrition; F11.20 Opioid dependence, uncomplicated; I42.9 Cardiomyopathy, unspecified; H40.9 Unspecified glaucoma; E11.40 Type 2 diabetes mellitus with diabetic neuropathy, unspecified; E03.9 Hypothyroidism, unspecified; E11.22 Type 2 diabetes mellitus with diabetic chronic kidney disease; H26.9 Unspecified cataract; G62.9 Polyneuropathy, unspecified; M79.7 Fibromyalgia; J44.9 Chronic obstructive pulmonary disease, unspecified; E78.5 Hyperlipidemia, unspecified; M54.5 Low back pain; F41.9 Anxiety disorder, unspecified; D64.9 Anemia, unspecified; D72.829 Elevated white blood cell count, unspecified; G89.4 Chronic pain syndrome; F17.200 Nicotine dependence, unspecified, uncomplicated; Z90.710 Acquired absence of both cervix and uterus; Z91.19 Patient's noncompliance with other medical treatment and regimen; Z99.2 Dependence on renal dialysis; Z82.49 Family history of ischemic heart disease and other diseases of the circulatory system; Z91.15 Patient's noncompliance with renal dialysis
CPT/HCPCS: 36415; 36600; 71045; 80053; 82805; 83690; 83880; 84484; 85025; 87040; 87641; 87804; 96374; J0360; J0881; J1885; J3010; 99285-25; G0378

== ENCOUNTER 2018-05-23 23:25 | Inpatient (IN) | payer OTHER ==
[~2018-05-23] VITALS: Ht 154.9 cm; Wt 51.7 kg
[~2018-05-23 23:25] MED LIST changes: +CARV6.25 PO; +FENT1PAT15 TP
--- NOTE | 2018-05-23 23:55 | PHYS DOC ---
Past Medical History Past Medical History: Diabetes-Type II, Glaucoma, Hypertension, Hypothyroid, Renal Disease, Renal Failure, Other Additional Past Medical Histor: neuropathy, cataracts,CHRONIC PAIN,ESRD Past Surgical History: Hysterectomy, Other Additional Past Surgical Histo: PT POOR HISTORIAN,DIALYSIS CATHETER L. CHEST Alcohol Use: None Drug Use: None Adult General Chief Complaint Chief Complaint: DIALYSIS PROBLEM HPI HPI Patient is a 57-year-old female who presents with complaint of nausea and vomiting with upper abdominal pain along with chest discomfort that started earlier this afternoon after dialysis. Patient states that she has not been able to keep anything down. She rates her pain to be a 10 out of 10. She also complains of some back pain. She denies any diarrhea. She also denies any fever. Review of Systems Review of Systems Constitutional: Denies fever or chills [] Respiratory: Denies cough or shortness of breath [] Cardiovascular: No additional information not addressed in HPI [] GI: Denies abdominal pain, nausea, vomiting, bloody stools or diarrhea [] : Denies dysuria or hematuria [] Musculoskeletal: Denies back pain or joint pain [] Integument: Denies rash or skin lesions [] Neurologic: Denies headache, focal weakness or sensory changes [] Endocrine: Denies polyuria or polydipsia [] All other systems were reviewed and found to be within normal limits, except as documented in this note. Current Medications Current Medications Current Medications Medications (Trade) Dose Ordered Sig/[facility] Start Time Stop Time Status Last Admin Dose Admin Fentanyl Citrate (Fentanyl 2ml Vial) 50 mcg PRN Q15MIN PRN 05/23/18 23:45 05/24/18 23:44 05/24/18 01:22 50 MCG Labetalol HCl (Normodyne Iv Push) 20 mg 1X ONCE 05/24/18 02:00 05/24/18 02:01 Ondansetron HCl (Zofran) 4 mg 1X ONCE 05/24/18 02:00 05/24/18 02:01 Allergies Allergies Allergies Coded Allergies Type Severity Reaction Last Updated Verified morphine Allergy Intermediate Itching 03/27/18 Yes Physical Exam Physical Exam Constitutional: Well developed, well nourished, no acute distress, non-toxic appearance. [] HENT: Normocephalic, atraumatic, bilateral external ears normal, oropharynx moist, no oral exudates, nose normal. [] Eyes: PERRLA, EOMI, conjunctiva normal, no discharge. [] Neck: Normal range of motion, no tenderness, supple, no stridor. [] Cardiovascular:Heart rate regular rhythm, no murmur [] Lungs & Thorax: Bilateral breath sounds clear to auscultation [] Abdomen: Bowel sounds normal, soft, no tenderness, no masses, no pulsatile masses. [] Skin: Warm, dry, no erythema, no rash. [] Back: No tenderness, no CVA tenderness. [] Extremities: No tenderness, no cyanosis, no clubbing, ROM intact, no edema. [] Neurologic: Alert and oriented X 3, normal motor function, normal sensory function, no focal deficits noted. [] Psychologic: Affect normal, judgement normal, mood normal. [] Current Patient Data Vital Signs Vital Signs Date Time Temp Pulse Resp B/P (MAP) Pulse Ox O2 Delivery O2 Flow Rate FiO2 05/24/18 01:22 Room Air 05/24/18 01:00 88 215/118 (150) 05/24/18 00:30 99 05/24/18 00:15 18 05/23/18 23:28 98.0 98.0 Lab Values Laboratory Tests Test 05/23/18 23:45 05/24/18 00:14 White Blood Count 11.5 x10^3/uL (4.0-11.0) H Red Blood Count 4.19 x10^6/uL (3.50-5.40) Hemoglobin 11.8 g/dL (12.0-15.5) L Hematocrit 36.2 % (36.0-47.0) Mean Corpuscular Volume 86 fL (79-100) Mean Corpuscular Hemoglobin 28 pg (25-35) Mean Corpuscular Hemoglobin Concent 33 g/dL (31-37) Red Cell Distribution Width 18.5 % (11.5-14.5) H Platelet Count 376 x10^3/uL (140-400) Neutrophils (%) (Auto) 90 % (31-73) H Lymphocytes (%) (Auto) 8 % (24-48) L Monocytes (%) (Auto) 2 % (0-9) Eosinophils (%) (Auto) 0 % (0-3) Basophils (%) (Auto) 1 % (0-3) Neutrophils # (Auto) 10.3 x10^3uL (1.8-7.7) H Lymphocytes # (Auto) 0.9 x10^3/uL (1.0-4.8) L Monocytes # (Auto) 0.2 x10^3/uL (0.0-1.1) Eosinophils # (Auto) 0.0 x10^3/uL (0.0-0.7) Basophils # (Auto) 0.1 x10^3/uL (0.0-0.2) Segmented Neutrophils % 88 % (35-66) H Lymphocytes % 8 % (24-48) L Monocytes % 4 % (0-10) Platelet Estimate Adequate (ADEQUATE) Polychromasia Slight Hypochromasia Slight Anisocytosis Slight Sodium Level 142 mmol/L (136-145) Potassium Level 3.2 mmol/L (3.5-5.1) L Chloride Level 100 mmol/L (98-107) Carbon Dioxide Level 28 mmol/L (21-32) Anion Gap 14 (6-14) Blood Urea Nitrogen 17 mg/dL (7-20) Creatinine 4.0 mg/dL (0.6-1.0) H Estimated GFR (Cockcroft-Gault) 14.1 BUN/Creatinine Ratio 4 (6-20) L Glucose Level 154 mg/dL (70-99) H Calcium Level 9.3 mg/dL (8.5-10.1) Phosphorus Level 3.5 mg/dL (2.6-4.7) Magnesium Level 2.0 mg/dL (1.8-2.4) Total Bilirubin 0.6 mg/dL (0.2-1.0) Aspartate Amino Transferase (AST) 25 U/L (15-37) Alanine Aminotransferase (ALT) 13 U/L (14-59) L Alkaline Phosphatase 91 U/L (46-116) Troponin I Quantitative 0.086 ng/mL (0.000-0.055) Total Protein 7.7 g/dL (6.4-8.2) Albumin 3.4 g/dL (3.4-5.0) Albumin/Globulin Ratio 0.8 (1.0-1.7) L Lipase 246 U/L (73-393) Influenza Type A Antigen Negative (NEGATIVE) Influenza Type B Antigen Negative (NEGATIVE) Laboratory Tests 05/23/18 23:45 Laboratory Tests 05/23/18 23:45 EKG EKG [] Radiology/Procedures Radiology/Procedures [] Course & Med Decision Making Course & Med Decision Making Pertinent Labs and Imaging studies reviewed. (See chart for details) [] Dragon Disclaimer Dragon Disclaimer This electronic medical record was generated, in whole or in part, using a voice recognition dictation system. Departure Departure Impression: Primary Impression: Hypertensive crisis Additional Impressions: ESRD (end stage renal disease) on dialysis Nausea and vomiting Chest pain Disposition: ADMITTED INPATIENT Admitting Physician: Other (Dr. Elena) Condition: IMPROVED Referrals: NO PCP (PCP) Problem Qualifiers Additional Impressions: Nausea and vomiting Vomiting type: unspecified Vomiting Intractability: unspecified Qualified Codes: R11.2 - Nausea with vomiting, unspecified Chest pain Chest pain type: unspecified Qualified Codes: R07.9 - Chest pain, unspecified GIULIANO FAIRCHILD Jr. DO May 23, 2018 23:55
[2018-05-24 00:01] LABS: BASO # 0.1 x10^3/uL (0.0-0.2); BASO % 1 % (0-3); EOS % 0 % (0-3); HEMATOCRIT 36.2 % (36.0-47.0); HEMOGLOBIN 11.8 g/dL (12.0-15.5); LYMPH # 0.9 x10^3/uL (1.0-4.8); LYMPH % 8 % (24-48); MEAN CORPUSCULAR HEMOGLOBIN 28 pg (25-35); MEAN CORPUSCULAR HGB CONC 33 g/dL (31-37); MEAN CORPUSCULAR VOLUME 86 fL (79-100); MONO # 0.2 x10^3/uL (0.0-1.1); MONO % 2 % (0-9); NEUT # 10.3 x10^3uL (1.8-7.7); NEUT % 90 % (31-73); PLATELET COUNT 376 x10^3/uL (140-400); RED BLOOD COUNT 4.19 x10^6/uL (3.50-5.40); RED CELL DISTRIBUTION WIDTH 18.5 % (11.5-14.5); WHITE BLOOD COUNT 11.5 x10^3/uL (4.0-11.0)
[2018-05-24 00:10] LABS: CALCIUM 9.3 mg/dL (8.5-10.1); GFR 14.1; POTASSIUM 3.2 mmol/L (3.5-5.1)
[2018-05-24] MEDS: fentaNYL PF VIAL 100 MCG/2 ML VIAL IV PRN ×10 (00:12→23:58)
[2018-05-24 00:15] LABS: ALBUMIN 3.4 g/dL (3.4-5.0); ALBUMIN/GLOBULIN RATIO 0.8 (1.0-1.7); PHOSPHORUS 3.5 mg/dL (2.6-4.7); TOTAL BILIRUBIN 0.6 mg/dL (0.2-1.0); TOTAL PROTEIN 7.7 g/dL (6.4-8.2)
[2018-05-24 00:38] LABS: INFLUENZA A PATIENT NEGATIVE (NEGATIVE); INFLUENZA B PATIENT NEGATIVE (NEGATIVE)
[2018-05-24 01:04] LABS: % LYMPHS 8 % (24-48); % MONOS 4 % (0-10); % SEGS 88 % (35-66); ANISOCYTOSIS SLIGHT; HYPOCHROMIA SLIGHT; PLT ESTIMATE ADEQUATE (ADEQUATE); POLYCHROMASIA SLIGHT
[2018-05-24] MEDS ORDERED: ONDANSETRON PF 4 MG/2 ML VIAL. IV PRN (01:45)
[2018-05-24] MEDS ORDERED: NITROGLYCERIN SUBLINGUAL 0.4 MG BOTTLE OF 25. SL PRN (01:45)
[2018-05-24] MEDS ORDERED: ONDANSETRON PF 4 MG/2 ML VIAL. IV ONE ×2 (02:00)
[2018-05-24] MEDS ORDERED: LABETALOL 20 MG/4 ML DISP.SYRIN. IVP ONE ×2 (02:00)
[2018-05-24 02:25] VITALS: BP 208/104
--- NOTE | 2018-05-24 02:49 | EKG ---
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
[2018-05-24] MEDS: LABETALOL 20 MG/4 ML DISP.SYRIN. IVP PRN ×3 (05:22→14:56)
--- NOTE | 2018-05-24 05:52 | RAD ---
EXAM: AP View of the chest DATE: 05/23/2018 11:49 PM INDICATION: Shortness of air COMPARISON: 05/07/2018 FINDINGS/ IMPRESSION: Left IJ vascular catheter tip projects over the distal SVC/proximal right atrium. The heart is mildly enlarged. Interval improvement in the bilateral lung opacities with minimal residuals in the lung bases. No pleural effusion or pneumothorax. Electronically signed by: Neymar Harp MD (05/24/2018 5:49 AM) [facility]
[2018-05-24 06:06] VITALS: BP 199/98
[2018-05-24 06:30] VITALS: BP 176/91
[2018-05-24] MEDS ORDERED: ALBUTEROL SULFATE 2.5 MG/3 ML NEBU. INH PRN (09:00)
[2018-05-24] MEDS ORDERED: cloNIDine TTS-2 1 PATCH PATCH TD SCH (09:30)
[2018-05-24] MEDS: LEVOTHYROXINE 50 MCG TABLET PO SCH (09:30)
[2018-05-24] MEDS: INSULIN LISPRO 300 UNITS/3 ML INSULN.PEN. SQ SCH ×3 (09:30→18:05)
[2018-05-24] MEDS ORDERED: PANTOPRAZOLE 40 MG TABLET.DR. PO SCH (09:30)
[2018-05-24] MEDS: ONDANSETRON PF 4 MG/2 ML VIAL. IV PRN ×2 (09:33→14:54)
[2018-05-24] MEDS: amLODIPine BESYLATE 5 MG TABLET PO SCH (09:37)
[2018-05-24] MEDS: CARVEDILOL 6.25 MG TABLET. PO SCH ×2 (09:38→17:00)
[2018-05-24] MEDS ORDERED: PROCHLORPERAZINE 10 MG/2 ML VIAL. IV PRN (10:30)
--- NOTE | 2018-05-24 10:54 | PDOC2 ---
MORAIMA BERRY PARTS SALES REPRESENTATIVE 05/24/18 1054: CARDIAC CONSULT DATE OF CONSULT Date of Consult DATE: 05/24/18 TIME: 10:44 REASON FOR CONSULT Reason for Consult: Chest pain REFERRING PHYSICIAN Referring Physician: Dr. Nielsen SOURCE Source: Chart review, Patient HISTORY OF PRESENT ILLNESS HISTORY OF PRESENT ILLNESS This is a 57 yo female who presented secondary to nausea/vomiting and abdominal/ chest pain while in dialysis. Nausea/vomiting has been present for the last couple of days. Has been unable to take her routine home medications. Had full HD run yesterday. Reports experiencing left chest pain around her HD catheter site since tunneled catheter was placed. Denies any SOA, dizziness, diaphoresis , or palpitations. Nausea/vomiting has been persistent today. PAST MEDICAL HISTORY Past Medical History Cardiovascular: CHF, HTN, Hyperlipidemia Pulmonary: Asthma, COPD CENTRAL NERVOUS SYSTEM: Peripheral neuropathy GI: No pertinent hx Heme/Onc: No pertinent hx Hepatobiliary: No pertinent hx Psych: Anxiety Musculoskeletal: low back pain, Osteoarthritis Rheumatologic: Fibromyalgia Infectious disease: No pertinent hx ENT: No pertinent hx Renal/: Chronic renal failure (on HD) Endocrine: Diabetes, Hypothyroidism Dermatology: No pertinent hx PAST SURGICAL HISTORY Past Surgical History No pertinent history FAMILY HISTORY Family History Family History Unknown SOCIAL HISTORY Social History Smoke: No ALCOHOL: none Drugs: None Lives: with Family CURRENT MEDICATIONS CURRENT MEDICATIONS Current Medications Medications (Trade) Dose Ordered Sig/Clarence Route PRN Reason Start Time Stop Time Status Last Admin Dose Admin Fentanyl Citrate (Fentanyl 2ml Vial) 50 mcg PRN Q15MIN PRN IV PAIN GREATER THAN 3/10 05/23/18 23:45 05/24/18 23:44 05/24/18 05:21 Ondansetron HCl (Zofran) 4 mg 1X ONCE IV 05/24/18 00:00 05/24/18 00:01 DC 05/24/18 00:12 Labetalol HCl (Normodyne Iv Push) 20 mg 1X ONCE IVP 05/24/18 00:00 05/24/18 00:01 DC 05/24/18 00:12 Ondansetron HCl (Zofran) 4 mg 1X ONCE IV 05/24/18 02:00 05/24/18 02:01 DC 05/24/18 01:49 Labetalol HCl (Normodyne Iv Push) 20 mg 1X ONCE IVP 05/24/18 02:00 05/24/18 02:01 DC 05/24/18 01:50 Ondansetron HCl (Zofran) 4 mg PRN Q8HRS PRN IV NAUSEA/VOMITING 1st choice 05/24/18 01:45 05/24/18 08:58 DC 05/24/18 05:16 Fentanyl Citrate (Fentanyl 2ml Vial) 50 mcg PRN Q1HR PRN IV SEVERE PAIN 05/24/18 01:45 05/25/18 01:44 05/24/18 10:42 Labetalol HCl (Normodyne Iv Push) 20 mg PRN Q4HRS PRN IVP SBP>170 05/24/18 02:00 05/24/18 10:42 Amlodipine Besylate (Norvasc) 10 mg DAILY PO 05/24/18 09:30 05/24/18 09:37 Carvedilol (Coreg) 6.25 mg BIDWMEALS PO 05/24/18 09:30 05/24/18 09:38 Clonidine HCl (Catapres Tts-2) 1 patch WEEKLY TD 05/24/18 09:30 05/24/18 09:36 Pantoprazole Sodium (Protonix) 40 mg DAILYAC PO 05/24/18 09:30 05/24/18 09:37 Ondansetron HCl (Zofran) 4 mg PRN Q4HRS PRN IV NAUSEA/VOMITING 1st choice 05/24/18 09:00 05/24/18 09:33 ALLERGIES ALLERGIES: Coded Allergies: morphine (Verified Allergy, Intermediate, Itching, 03/27/18) ROS Review of System 14 point ROS conducted with pertinent positives noted above in HPI. PHYSICAL EXAM PHYSICAL EXAM General: Alert, Oriented X3, no distress HEENT: Atraumatic, Mucous membr. moist/pink Lungs: Other (bibasilar crackles ) Abdomen: Soft, No tenderness Extremities: Other (trace LE edema, bilaterally) Skin: No significant lesion Neuro: Normal speech, Sensation intact Psych/Mental Status: Other (flat affect) MUSCULOSKELETAL: No deformity VITALS VITALS Vital Signs Date Time Temp Pulse Resp B/P (MAP) Pulse Ox O2 Delivery O2 Flow Rate FiO2 05/24/18 10:42 100 212/104 05/24/18 10:42 18 Room Air 05/24/18 05:51 99 2/28/19 02:25 97.7 97.7 LABS Lab: Laboratory Tests Test 05/23/18 23:45 05/24/18 00:14 05/24/18 04:40 05/24/18 05:44 White Blood Count 11.5 x10^3/uL (4.0-11.0) Red Blood Count 4.19 x10^6/uL (3.50-5.40) Hemoglobin 11.8 g/dL (12.0-15.5) Hematocrit 36.2 % (36.0-47.0) Mean Corpuscular Volume 86 fL (79-100) Mean Corpuscular Hemoglobin 28 pg (25-35) Mean Corpuscular Hemoglobin Concent 33 g/dL (31-37) Red Cell Distribution Width 18.5 % (11.5-14.5) Platelet Count 376 x10^3/uL (140-400) Neutrophils (%) (Auto) 90 % (31-73) Lymphocytes (%) (Auto) 8 % (24-48) Monocytes (%) (Auto) 2 % (0-9) Eosinophils (%) (Auto) 0 % (0-3) Basophils (%) (Auto) 1 % (0-3) Neutrophils # (Auto) 10.3 x10^3uL (1.8-7.7) Lymphocytes # (Auto) 0.9 x10^3/uL (1.0-4.8) Monocytes # (Auto) 0.2 x10^3/uL (0.0-1.1) Eosinophils # (Auto) 0.0 x10^3/uL (0.0-0.7) Basophils # (Auto) 0.1 x10^3/uL (0.0-0.2) Segmented Neutrophils % 88 % (35-66) Lymphocytes % 8 % (24-48) Monocytes % 4 % (0-10) Platelet Estimate Adequate (ADEQUATE) Polychromasia Slight Hypochromasia Slight Anisocytosis Slight Sodium Level 142 mmol/L (136-145) Potassium Level 3.2 mmol/L (3.5-5.1) Chloride Level 100 mmol/L (98-107) Carbon Dioxide Level 28 mmol/L (21-32) Anion Gap 14 (6-14) Blood Urea Nitrogen 17 mg/dL (7-20) Creatinine 4.0 mg/dL (0.6-1.0) Estimated GFR (Cockcroft-Gault) 14.1 BUN/Creatinine Ratio 4 (6-20) Glucose Level 154 mg/dL (70-99) Calcium Level 9.3 mg/dL (8.5-10.1) Phosphorus Level 3.5 mg/dL (2.6-4.7) Magnesium Level 2.0 mg/dL (1.8-2.4) Total Bilirubin 0.6 mg/dL (0.2-1.0) Aspartate Amino Transf (AST/SGOT) 25 U/L (15-37) Alanine Aminotransferase (ALT/SGPT) 13 U/L (14-59) Alkaline Phosphatase 91 U/L (46-116) Troponin I Quantitative 0.086 ng/mL (0.000-0.055) 0.094 ng/mL (0.000-0.055) Total Protein 7.7 g/dL (6.4-8.2) Albumin 3.4 g/dL (3.4-5.0) Albumin/Globulin Ratio 0.8 (1.0-1.7) Lipase 246 U/L (73-393) Influenza Type A Antigen Negative (NEGATIVE) Influenza Type B Antigen Negative (NEGATIVE) Glucose (Fingerstick) 146 mg/dL (70-99) Test 05/24/18 09:00 05/24/18 09:29 Troponin I Quantitative 0.095 ng/mL (0.000-0.055) Glucose (Fingerstick) 142 mg/dL (70-99) ECHOCARDIOGRAM ECHOCARDIOGRAM <Conclusion> The left ventricular systolic function is normal. The Ejection Fraction is 60-65%. There is normal LV segmental wall motion. Evidence for grade III diastolic dysfunction. There is moderate concentric left ventricular hypertrophy. Doppler and Color Flow revealed trace tricuspid valve regurgitation. There is no evidence of significant pericardial effusion. DATE: 03/05/18 1632 STRESS TEST STRESS TEST Conclusion 1. Regadenoson cardioisotope stress test did not show any evidence of ischemia or infarct. 2. Normal left ventricular systolic function with ejection fraction calculated at 51%. 3. Low risk for cardiac events. DATE: 03/26/18 1227 ASSESSMENT/PLAN ASSESSMENT/PLAN 1. Nausea/vomiting, abdominal pain; GI consulted 2. Accelerated hypertension; remains elevated. Secondary to missed antiHTN therapy with persistent N/V. Took oral meds this am, but vomited following. 3. Chest pain, noncardiac; reports pain surrounding HD catheter. Site tender upon palpation. Recent stress test without any evidence of ischemia or infarct as noted above. 4. Mild troponin elevated; highest 0.095. multifactorial, demand mediated type 2 5. Chronic diastolic CHF: compensated 6. ESRD on HD 7. Hypokalemia 8. Hyperlipidemia; statin 9. DM, II; as per PCP 10. Hypothyroidism; on replacement Recommendations Home antiHTN therapy resumed, but having difficulty with pills due to ongoing nausea/vomiting. Has clonidine patch. May use Labetalol and Hydralazine IV PRN while N/V persists. Fluid offloading via HD as per nephrology Supportive care Further workup as per GI RILEY WHITE MD 05/25/18 0720: CARDIAC CONSULT ASSESSMENT/PLAN ASSESSMENT/PLAN Patient seen and examined 05/24/18. Agree with IT SOFTWARE DEVELOPER's assessment and plan. Chest pain with atypical features and most probably GI etiology Slight troponin elevation probably demand ischemia Accelerated hypertension secondary to noncompliance with medications We will try intravenous hydralazine and labetalol prn for blood pressure control till patient able to take oral medications Continue hemodialysis per nephrology team and GI workup for N/V Thank you for your consultation MORAIMA BERRY APRN May 24, 2018 10:54 RILEY WHITE MD May 25, 2018 07:20
[2018-05-24] MEDS ORDERED: hydrALAZINE 20 MG/ML VIAL. IVP PRN (11:15)
--- NOTE | 2018-05-24 11:15 | PDOC2 ---
CONSULT Date of Consult Date of Consult DATE: 05/24/18 TIME: 11:10 Reason for Consult Reason for Consult: ESRD AND HTN Referring Physician Referring Physician: RICHARD Identification/Chief Complaint Chief Complaint ABD PAIN, N/V AND CHEST PAIN Source Source: Chart review, Patient History of Present Illness Reason for Visit: THIS IS A 57 YR ESRD PT DUE TO HTN WITH ABD PAIN, N/V AND CHEST PAIN. SHE IS VERY HYPERTENSIVE USUAL. SHE IS VERY NON COMPLIANT WITH HER MEDS AND DIALYSIS. SHE HAS HAD NUMEROUS ADMITS DUE TO NON COMPLIANCE DESPITE CONTINUED EDUCATION. HER ESRD IS DUE TO HTN AND DM II. LABS ARE C/W ESRD Past Medical History Cardiovascular: CHF, HTN, Hyperlipidemia Pulmonary: Asthma, COPD CENTRAL NERVOUS SYSTEM: Periperal neuropathy GI: No pertinent hx Heme/Onc: No pertinent hx Hepatobiliary: No pertinent hx Psych: Anxiety Rheumatologic: Fibromyalgia Infectious disease: No pertinent hx Renal/: Chronic renal failure Endocrine: Diabetes, Hypothyroidism, Hyperparathyroidism Past Surgical History Past Surgical History: No pertinent history Family History Family History: Family History Unknown Social History ALCOHOL: none Drugs: None Lives: with Family Current Problem List Problem List Problems Medical Problems: (1) Hypertensive crisis Status: Acute (2) Nausea and vomiting Status: Acute Current Medications Current Medications Current Medications Fentanyl Citrate (Fentanyl 2ml Vial) 50 mcg PRN Q15MIN PRN IV PAIN GREATER THAN 3/10 Last administered on 05/24/18at 05:21; Start 05/23/18 at 23:45; Stop at 23:44 Ondansetron HCl (Zofran) 4 mg 1X ONCE IV Last administered on 05/24/18at 00:12 ; Start 05/24/18 at 00:00; Stop 05/24/18 at 00:01; Status DC Labetalol HCl (Normodyne Iv Push) 20 mg 1X ONCE IVP Last administered on at 00:12; Start 05/24/18 at 00:00; Stop 05/24/18 at 00:01; Status DC Ondansetron HCl (Zofran) 4 mg 1X ONCE IV Last administered on 05/24/18at 01:49 ; Start 05/24/18 at 02:00; Stop 05/24/18 at 02:01; Status DC Labetalol HCl (Normodyne Iv Push) 20 mg 1X ONCE IVP Last administered on 01:50; Start 05/24/18 at 02:00; Stop 05/24/18 at 02:01; Status DC Ondansetron HCl (Zofran) 4 mg PRN Q8HRS PRN IV NAUSEA/VOMITING 1st choice Last administered on 05/24/18 05:16; Start 05/24/18 at 01:45; Stop 05/24/18 at 08:58 ; Status DC Fentanyl Citrate (Fentanyl 2ml Vial) 50 mcg PRN Q1HR PRN IV SEVERE PAIN Last administered on 05/24/18 10:42; Start 05/24/18 at 01:45; Stop 05/25/18 at 01:44 Nitroglycerin (Nitrostat) 0.4 mg PRN Q5MIN PRN SL CHEST PAIN; Start 05/24/18 at 01:45; Stop 05/25/18 at 01:44 Labetalol HCl (Normodyne Iv Push) 20 mg PRN Q4HRS PRN IVP SBP>170 Last administered on 05/24/18at 10:42; Start 05/24/18 at 02:00 Albuterol Sulfate (Ventolin Neb Soln) 2.5 mg PRN BID PRN INH SHORTNESS OF BREATH; Start 05/24/18 at 09:00 Alprazolam (Xanax) 0.5 mg PRN TID PRN PO ANXIETY / AGITATION; Start 05/24/18 at 09:00 Amlodipine Besylate (Norvasc) 10 mg DAILY PO Last administered on 05/24/18 09: 37; Start 05/24/18 at 09:30 Atorvastatin Calcium (Lipitor) 40 mg HS PO ; Start 05/24/18 at 21:00 Carvedilol (Coreg) 6.25 mg BIDWMEALS PO Last administered on 05/24/18 09:38; Start 05/24/18 at 09:30 Clonidine HCl (Catapres Tts-2) 1 patch WEEKLY TD Last administered on 09:36; Start 05/24/18 at 09:30 Insulin Human Lispro (HumaLOG) 25 units TIDWMEALS SQ ; Start 05/24/18 at 09:30 Latanoprost (Xalatan) 1 drop QHS OU ; Start 05/24/18 at 21:00 Levothyroxine Sodium (Synthroid) 50 mcg DAILY06 PO ; Start 05/24/18 at 09:30 Amylase/Lipase/ Protease (Zenpep 5,000) 1 cap TIDWMEALS PO ; Start 05/24/18 at 09:30 Pantoprazole Sodium (Protonix) 40 mg DAILYAC PO Last administered on 05/24/18at 09:37; Start 05/24/18 at 09:30 Ondansetron HCl (Zofran) 4 mg PRN Q4HRS PRN IV NAUSEA/VOMITING 1st choice Last administered on 05/24/18at 09:33; Start 05/24/18 at 09:00 Prochlorperazine Edisylate (Compazine) 10 mg PRN Q8HRS PRN IV NAUSEA/VOMITING 2ND CHOICE; Start 05/24/18 at 10:30 Hydralazine HCl (Apresoline Inj) 10 mg PRN Q4HRS PRN IVP ELEVATED BP, SEE COMMENTS; Start 05/24/18 at 11:15 Active Scripts Active Alprazolam 0.5 Mg Tablet 0.5 Mg PO PRN TID PRN MDD 1 [Pantoprazole] 40 MG Tablet. 40 Mg PO DAILYAC 30 Days Reported Coreg (Carvedilol) 6.25 Mg Tablet 6.25 Mg PO BIDWMEALS Creon 6,000 Units Capsule (Lipase/Protease/Amylase) 1 Each Capsule. 1 Tab PO TID Proair Hfa (Albuterol Sulfate) 8.5 Gm Hfa.aer.ad 2 Puff INH BID PRN Levothyroxine Sodium 50 Mcg Tablet 1 Tab PO DAILY Clonidine Tts-2 (Clonidine) 1 Each Patch.tdwk 1 Patch TD WEEKLY Novolog Flexpen (Insulin Aspart) 100 Unit/1 Ml Insuln.pen 25 Unit SQ TIDAC Amlodipine Besylate 5 Mg Tablet 10 Mg PO DAILY Atorvastatin Calcium 40 Mg Tablet 40 Mg PO HS Latanoprost 2.5 Ml Drops 1 Drop EACHEYE HS Allergies Allergies: Coded Allergies: morphine (Verified Allergy, Intermediate, Itching, 03/27/18) ROS General: YES: Fatigue, Malaise, Appetite PSYCHOLOGICAL ROS: YES: Anxiety, Depression Eyes: Yes Decreased vision HEENT: YES: Heacaches ALLERGY AND IMMUNOLOGY: YES: Seasonal Allergies Respiratory: YES: Cough, Shortness of breath Cardiovascular: yes Chest Pain Gastrointestinal: Yes Nausea, Yes Vomiting, Yes Abdominal Pain, Yes Constipation Genitourinary: YES Other (OLIGURIA) Musculoskeletal: Yes Muscular Weakness Neurological: Yes Weakness Skin: Yes Dry Skin Physical Exam General: Alert, Oriented X3, Cooperative, No acute distress, mild distress HEENT: Atraumatic, PERRLA Lungs: Clear to auscultation Heart: Regular rate, Normal S1, Normal S2 Abdomen: Normal bowel sounds, Soft, No tenderness Extremities: No clubbing, No cyanosis, No edema, Normal pulses Skin: No breakdown Neuro: Normal speech, Cranial nerves 3-12 NL Psych/Mental Status: Other (ANGRY USUAL) MUSCULOSKELETAL: No deformity, No swelling Vitals VITALS Vital Signs Date Time Temp Pulse Resp B/P (MAP) Pulse Ox O2 Delivery O2 Flow Rate FiO2 05/24/18 10:42 100 212/104 05/24/18 10:42 18 Room Air 05/24/18 05:51 99 05/24/18 02:25 97.7 97.7 Labs Labs Laboratory Tests Test 05/23/18 23:45 05/24/18 00:14 05/24/18 04:40 05/24/18 05:44 White Blood Count 11.5 x10^3/uL (4.0-11.0) Red Blood Count 4.19 x10^6/uL (3.50-5.40) Hemoglobin 11.8 g/dL (12.0-15.5) Hematocrit 36.2 % (36.0-47.0) Mean Corpuscular Volume 86 fL (79-100) Mean Corpuscular Hemoglobin 28 pg (25-35) Mean Corpuscular Hemoglobin Concent 33 g/dL (31-37) Red Cell Distribution Width 18.5 % (11.5-14.5) Platelet Count 376 x10^3/uL (140-400) Neutrophils (%) (Auto) 90 % (31-73) Lymphocytes (%) (Auto) 8 % (24-48) Monocytes (%) (Auto) 2 % (0-9) Eosinophils (%) (Auto) 0 % (0-3) Basophils (%) (Auto) 1 % (0-3) Neutrophils # (Auto) 10.3 x10^3uL (1.8-7.7) Lymphocytes # (Auto) 0.9 x10^3/uL (1.0-4.8) Monocytes # (Auto) 0.2 x10^3/uL (0.0-1.1) Eosinophils # (Auto) 0.0 x10^3/uL (0.0-0.7) Basophils # (Auto) 0.1 x10^3/uL (0.0-0.2) Segmented Neutrophils % 88 % (35-66) Lymphocytes % 8 % (24-48) Monocytes % 4 % (0-10) Platelet Estimate Adequate (ADEQUATE) Polychromasia Slight Hypochromasia Slight Anisocytosis Slight Sodium Level 142 mmol/L (136-145) Potassium Level 3.2 mmol/L (3.5-5.1) Chloride Level 100 mmol/L (98-107) Carbon Dioxide Level 28 mmol/L (21-32) Anion Gap 14 (6-14) Blood Urea Nitrogen 17 mg/dL (7-20) Creatinine 4.0 mg/dL (0.6-1.0) Estimated GFR (Cockcroft-Gault) 14.1 BUN/Creatinine Ratio 4 (6-20) Glucose Level 154 mg/dL (70-99) Calcium Level 9.3 mg/dL (8.5-10.1) Phosphorus Level 3.5 mg/dL (2.6-4.7) Magnesium Level 2.0 mg/dL (1.8-2.4) Total Bilirubin 0.6 mg/dL (0.2-1.0) Aspartate Amino Transf (AST/SGOT) 25 U/L (15-37) Alanine Aminotransferase (ALT/SGPT) 13 U/L (14-59) Alkaline Phosphatase 91 U/L (46-116) Troponin I Quantitative 0.086 ng/mL (0.000-0.055) 0.094 ng/mL (0.000-0.055) Total Protein 7.7 g/dL (6.4-8.2) Albumin 3.4 g/dL (3.4-5.0) Albumin/Globulin Ratio 0.8 (1.0-1.7) Lipase 246 U/L (73-393) Influenza Type A Antigen Negative (NEGATIVE) Influenza Type B Antigen Negative (NEGATIVE) Glucose (Fingerstick) 146 mg/dL (70-99) Test 05/24/18 09:00 05/24/18 09:29 Troponin I Quantitative 0.095 ng/mL (0.000-0.055) Glucose (Fingerstick) 142 mg/dL (70-99) Laboratory Tests Test 05/23/18 23:45 05/24/18 00:14 05/24/18 04:40 05/24/18 05:44 White Blood Count 11.5 x10^3/uL (4.0-11.0) Red Blood Count 4.19 x10^6/uL (3.50-5.40) Hemoglobin 11.8 g/dL (12.0-15.5) Hematocrit 36.2 % (36.0-47.0) Mean Corpuscular Volume 86 fL (79-100) Mean Corpuscular Hemoglobin 28 pg (25-35) Mean Corpuscular Hemoglobin Concent 33 g/dL (31-37) Red Cell Distribution Width 18.5 % (11.5-14.5) Platelet Count 376 x10^3/uL (140-400) Neutrophils (%) (Auto) 90 % (31-73) Lymphocytes (%) (Auto) 8 % (24-48) Monocytes (%) (Auto) 2 % (0-9) Eosinophils (%) (Auto) 0 % (0-3) Basophils (%) (Auto) 1 % (0-3) Neutrophils # (Auto) 10.3 x10^3uL (1.8-7.7) Lymphocytes # (Auto) 0.9 x10^3/uL (1.0-4.8) Monocytes # (Auto) 0.2 x10^3/uL (0.0-1.1) Eosinophils # (Auto) 0.0 x10^3/uL (0.0-0.7) Basophils # (Auto) 0.1 x10^3/uL (0.0-0.2) Segmented Neutrophils % 88 % (35-66) Lymphocytes % 8 % (24-48) Monocytes % 4 % (0-10) Platelet Estimate Adequate (ADEQUATE) Polychromasia Slight Hypochromasia Slight Anisocytosis Slight Sodium Level 142 mmol/L (136-145) Potassium Level 3.2 mmol/L (3.5-5.1) Chloride Level 100 mmol/L (98-107) Carbon Dioxide Level 28 mmol/L (21-32) Anion Gap 14 (6-14) Blood Urea Nitrogen 17 mg/dL (7-20) Creatinine 4.0 mg/dL (0.6-1.0) Estimated GFR (Cockcroft-Gault) 14.1 BUN/Creatinine Ratio 4 (6-20) Glucose Level 154 mg/dL (70-99) Calcium Level 9.3 mg/dL (8.5-10.1) Phosphorus Level 3.5 mg/dL (2.6-4.7) Magnesium Level 2.0 mg/dL (1.8-2.4) Total Bilirubin 0.6 mg/dL (0.2-1.0) Aspartate Amino Transf (AST/SGOT) 25 U/L (15-37) Alanine Aminotransferase (ALT/SGPT) 13 U/L (14-59) Alkaline Phosphatase 91 U/L (46-116) Troponin I Quantitative 0.086 ng/mL (0.000-0.055) 0.094 ng/mL (0.000-0.055) Total Protein 7.7 g/dL (6.4-8.2) Albumin 3.4 g/dL (3.4-5.0) Albumin/Globulin Ratio 0.8 (1.0-1.7) Lipase 246 U/L (73-393) Influenza Type A Antigen Negative (NEGATIVE) Influenza Type B Antigen Negative (NEGATIVE) Glucose (Fingerstick) 146 mg/dL (70-99) Test 05/24/18 09:00 05/24/18 09:29 Troponin I Quantitative 0.095 ng/mL (0.000-0.055) Glucose (Fingerstick) 142 mg/dL (70-99) Assessment/Plan Assessment/Plan IMP CHEST PAIN ESRD NON COMPLIANCE WITH MEDS AND HD HTN DM II ANEMIA ABD PAIN-N/V PLAN CARDIOLOGY W/U GI W/U RESUME HOME MEDS ENC COMPLIANCE HD TOMORROW BENY PAINTER MD May 24, 2018 11:14
[2018-05-24 11:23] LABS: CALCIUM 8.7 mg/dL (8.5-10.1); CREATININE 4.8 mg/dL (0.6-1.0); GFR 11.4; MAGNESIUM 1.9 mg/dL (1.8-2.4); POTASSIUM 3.4 mmol/L (3.5-5.1)
--- NOTE | 2018-05-24 12:35 | PDOC1 ---
History and Physical Date of Admission Date of Admission 05/24/2018 Identification/Chief Complaint Chief Complaint Intractable abdominal pain nausea and vomiting Source Source: Chart review, Patient History of Present Illness History of Present Illness Patient is a 57-year-old female well known to the hospitalist service multiple admissions in the past or similar presentations, patient is a very poor historian and she seems to be in acute distress due to nausea and vomiting of my visit. Most of the history is from review of the chart some questions answered by Ms. Salazar during my encounter. She has a 1 day history of being dialyzed in developing abdominal discomfort with nausea and vomiting. Patient was unable to tolerate oral route and due to the severity of her and that she describes as sharp 10 out of 10 in intensity associated with nausea and vomiting she was brought to the emergency department for further evaluation and treatment. As part of her planes she also mentioned a chest discomfort most likely from her retching effort troponin was mildly elevated reason why we were asked to admit the patient for further evaluation and also control of her symptoms. Of note is that the patient also has uncontrolled hypertension she has been admitted for hypertensive urgency in the past. The patient is not exhibiting neurological deficits denies headache no blurred vision she denies chest pressure or angina-type of symptoms at the time my evaluation no radiation to the arm or the jaw. The patient had unfortunately coffee ground emesis,no hematochezia or melena reported, no other signs of bleeding at the time of my evaluation either. Past Medical History Cardiovascular: CHF, HTN, Hyperlipidemia Pulmonary: Asthma, COPD CENTRAL NERVOUS SYSTEM: Periperal neuropathy GI: No pertinent hx Heme/Onc: No pertinent hx Hepatobiliary: No pertinent hx Psych: Anxiety Rheumatologic: Fibromyalgia Infectious disease: No pertinent hx Renal/: Chronic renal failure Endocrine: Diabetes, Hypothyroidism, Hyperparathyroidism Past Surgical History Past Surgical History: No pertinent history Family History Family History: Family History Unknown Social History ALCOHOL: none Drugs: None Current Problem List Problem List Problems Medical Problems: (1) Hypertensive crisis Status: Acute (2) Nausea and vomiting Status: Acute Current Medications Current Medications Current Medications Medications (Trade) Dose Ordered Sig/Clarence Start Time Stop Time Status Last Admin Dose Admin Albuterol Sulfate (Ventolin Neb Soln) 2.5 mg PRN BID PRN 05/24/18 09:00 Alprazolam (Xanax) 0.5 mg PRN TID PRN 05/24/18 09:00 Amlodipine Besylate (Norvasc) 10 mg DAILY 05/24/18 09:30 05/24/18 09:37 10 MG Amylase/Lipase/ Protease (Zenpep 5,000) 1 cap TIDWMEALS 05/24/18 09:30 Atorvastatin Calcium (Lipitor) 40 mg HS 05/24/18 21:00 Carvedilol (Coreg) 6.25 mg BIDWMEALS 05/24/18 09:30 05/24/18 09:38 6.25 MG Clonidine HCl (Catapres Tts-2) 1 patch WEEKLY 05/24/18 09:30 05/24/18 09:36 1 PATCH Fentanyl Citrate (Fentanyl 2ml Vial) 50 mcg PRN Q1HR PRN 05/24/18 01:45 05/25/18 01:44 05/24/18 10:42 50 MCG Hydralazine HCl (Apresoline Inj) 10 mg PRN Q4HRS PRN 05/24/18 11:15 Insulin Human Lispro (HumaLOG) 25 units TIDWMEALS 05/24/18 09:30 Labetalol HCl (Normodyne Iv Push) 20 mg PRN Q4HRS PRN 05/24/18 02:00 05/24/18 10:42 20 MG Latanoprost (Xalatan) 1 drop QHS 05/24/18 21:00 Levothyroxine Sodium (Synthroid) 50 mcg DAILY06 05/24/18 09:30 Nitroglycerin (Nitrostat) 0.4 mg PRN Q5MIN PRN 05/24/18 01:45 05/25/18 01:44 Ondansetron HCl (Zofran) 4 mg PRN Q4HRS PRN 05/24/18 09:00 05/24/18 09:33 4 MG Pantoprazole Sodium (Protonix) 40 mg DAILYAC 05/24/18 09:30 05/24/18 09:37 40 MG Prochlorperazine Edisylate (Compazine) 10 mg PRN Q8HRS PRN 05/24/18 10:30 Allergies Allergies Allergies Coded Allergies Type Severity Reaction Last Updated Verified morphine Allergy Intermediate Itching 03/27/18 Yes ROS Review of System CONSTITUTIONAL: No fever or chills EYES: No recent changes SKIN: No rash or itching CARDIOVASCULAR: No chest pain, syncope, palpitations, or edema RESPIRATORY: No SOB or cough GASTROINTESTINAL: + nausea, vomiting and abdominal pain NEUROLOGICAL: No headaches or weakness ENDOCRINE: No cold or heat intolerance GENITOURINARY: No urgency or frequency of urination MUSCULOSKELETAL: No back pain or joint pain LYMPHATICS: No enlarged lymph nodes PSYCHIATRIC: No anxiety or depression Physical Exam Physical Exam Gen.: well-developed well-nourished in acute distress chronically ill-appearing Head: Normal shape atraumatic Eyes: Pupils equal reactive to light and accommodation, normal conjunctivae and lids Ears: Normal shape Nose: Normal shape no trauma Mouth: No exudates of the back of throat no thrush no lesions Neck: Supple no JVD no carotid bruit or lymphadenopathy no thyromegaly Chest: Lungs clear to auscultation with good inspiratory effort no crackles rales or rhonchi Cardiovascular: S1-S2 regular rhythm no murmurs gallops or rubs Abdomen: Bowel sounds present soft tender to deep palpation no hepatosplenomegaly appreciated no peritoneal signs Extremities: No clubbing no cyanosis no edema peripheral pulses palpated bilaterally Neurological: Alert awake oriented in person time place and situation, cranial nerves II through XII intact, no motor or sensory deficits appreciated Psych: Appropriate mood, cooperative Vitals Vitals Vital Signs Date Time Temp Pulse Resp B/P (MAP) Pulse Ox O2 Delivery O2 Flow Rate FiO2 05/24/18 10:42 100 212/104 05/24/18 10:42 18 Room Air 05/24/18 05:51 99 05/24/18 02:25 97.7 97.7 Labs Labs Laboratory Tests Test 05/23/18 23:45 05/24/18 00:14 05/24/18 04:40 05/24/18 05:44 White Blood Count 11.5 x10^3/uL (4.0-11.0) Red Blood Count 4.19 x10^6/uL (3.50-5.40) Hemoglobin 11.8 g/dL (12.0-15.5) Hematocrit 36.2 % (36.0-47.0) Mean Corpuscular Volume 86 fL (79-100) Mean Corpuscular Hemoglobin 28 pg (25-35) Mean Corpuscular Hemoglobin Concent 33 g/dL (31-37) Red Cell Distribution Width 18.5 % (11.5-14.5) Platelet Count 376 x10^3/uL (140-400) Neutrophils (%) (Auto) 90 % (31-73) Lymphocytes (%) (Auto) 8 % (24-48) Monocytes (%) (Auto) 2 % (0-9) Eosinophils (%) (Auto) 0 % (0-3) Basophils (%) (Auto) 1 % (0-3) Neutrophils # (Auto) 10.3 x10^3uL (1.8-7.7) Lymphocytes # (Auto) 0.9 x10^3/uL (1.0-4.8) Monocytes # (Auto) 0.2 x10^3/uL (0.0-1.1) Eosinophils # (Auto) 0.0 x10^3/uL (0.0-0.7) Basophils # (Auto) 0.1 x10^3/uL (0.0-0.2) Segmented Neutrophils % 88 % (35-66) Lymphocytes % 8 % (24-48) Monocytes % 4 % (0-10) Platelet Estimate Adequate (ADEQUATE) Polychromasia Slight Hypochromasia Slight Anisocytosis Slight Sodium Level 142 mmol/L (136-145) Potassium Level 3.2 mmol/L (3.5-5.1) Chloride Level 100 mmol/L (98-107) Carbon Dioxide Level 28 mmol/L (21-32) Anion Gap 14 (6-14) Blood Urea Nitrogen 17 mg/dL (7-20) Creatinine 4.0 mg/dL (0.6-1.0) Estimated GFR (Cockcroft-Gault) 14.1 BUN/Creatinine Ratio 4 (6-20) Glucose Level 154 mg/dL (70-99) Calcium Level 9.3 mg/dL (8.5-10.1) Phosphorus Level 3.5 mg/dL (2.6-4.7) Magnesium Level 2.0 mg/dL (1.8-2.4) Total Bilirubin 0.6 mg/dL (0.2-1.0) Aspartate Amino Transf (AST/SGOT) 25 U/L (15-37) Alanine Aminotransferase (ALT/SGPT) 13 U/L (14-59) Alkaline Phosphatase 91 U/L (46-116) Troponin I Quantitative 0.086 ng/mL (0.000-0.055) 0.094 ng/mL (0.000-0.055) Total Protein 7.7 g/dL (6.4-8.2) Albumin 3.4 g/dL (3.4-5.0) Albumin/Globulin Ratio 0.8 (1.0-1.7) Lipase 246 U/L (73-393) Influenza Type A Antigen Negative (NEGATIVE) Influenza Type B Antigen Negative (NEGATIVE) Glucose (Fingerstick) 146 mg/dL (70-99) Test 05/24/18 09:00 05/24/18 09:29 Sodium Level 145 mmol/L (136-145) Potassium Level 3.4 mmol/L (3.5-5.1) Chloride Level 100 mmol/L (98-107) Carbon Dioxide Level 33 mmol/L (21-32) Anion Gap 12 (6-14) Blood Urea Nitrogen 22 mg/dL (7-20) Creatinine 4.8 mg/dL (0.6-1.0) Estimated GFR (Cockcroft-Gault) 11.4 Glucose Level 147 mg/dL (70-99) Calcium Level 8.7 mg/dL (8.5-10.1) Magnesium Level 1.9 mg/dL (1.8-2.4) Troponin I Quantitative 0.095 ng/mL (0.000-0.055) Glucose (Fingerstick) 142 mg/dL (70-99) Laboratory Tests Test 05/23/18 23:45 05/24/18 00:14 05/24/18 04:40 05/24/18 05:44 White Blood Count 11.5 x10^3/uL (4.0-11.0) Red Blood Count 4.19 x10^6/uL (3.50-5.40) Hemoglobin 11.8 g/dL (12.0-15.5) Hematocrit 36.2 % (36.0-47.0) Mean Corpuscular Volume 86 fL (79-100) Mean Corpuscular Hemoglobin 28 pg (25-35) Mean Corpuscular Hemoglobin Concent 33 g/dL (31-37) Red Cell Distribution Width 18.5 % (11.5-14.5) Platelet Count 376 x10^3/uL (140-400) Neutrophils (%) (Auto) 90 % (31-73) Lymphocytes (%) (Auto) 8 % (24-48) Monocytes (%) (Auto) 2 % (0-9) Eosinophils (%) (Auto) 0 % (0-3) Basophils (%) (Auto) 1 % (0-3) Neutrophils # (Auto) 10.3 x10^3uL (1.8-7.7) Lymphocytes # (Auto) 0.9 x10^3/uL (1.0-4.8) Monocytes # (Auto) 0.2 x10^3/uL (0.0-1.1) Eosinophils # (Auto) 0.0 x10^3/uL (0.0-0.7) Basophils # (Auto) 0.1 x10^3/uL (0.0-0.2) Segmented Neutrophils % 88 % (35-66) Lymphocytes % 8 % (24-48) Monocytes % 4 % (0-10) Platelet Estimate Adequate (ADEQUATE) Polychromasia Slight Hypochromasia Slight Anisocytosis Slight Sodium Level 142 mmol/L (136-145) Potassium Level 3.2 mmol/L (3.5-5.1) Chloride Level 100 mmol/L (98-107) Carbon Dioxide Level 28 mmol/L (21-32) Anion Gap 14 (6-14) Blood Urea Nitrogen 17 mg/dL (7-20) Creatinine 4.0 mg/dL (0.6-1.0) Estimated GFR (Cockcroft-Gault) 14.1 BUN/Creatinine Ratio 4 (6-20) Glucose Level 154 mg/dL (70-99) Calcium Level 9.3 mg/dL (8.5-10.1) Phosphorus Level 3.5 mg/dL (2.6-4.7) Magnesium Level 2.0 mg/dL (1.8-2.4) Total Bilirubin 0.6 mg/dL (0.2-1.0) Aspartate Amino Transf (AST/SGOT) 25 U/L (15-37) Alanine Aminotransferase (ALT/SGPT) 13 U/L (14-59) Alkaline Phosphatase 91 U/L (46-116) Troponin I Quantitative 0.086 ng/mL (0.000-0.055) 0.094 ng/mL (0.000-0.055) Total Protein 7.7 g/dL (6.4-8.2) Albumin 3.4 g/dL (3.4-5.0) Albumin/Globulin Ratio 0.8 (1.0-1.7) Lipase 246 U/L (73-393) Influenza Type A Antigen Negative (NEGATIVE) Influenza Type B Antigen Negative (NEGATIVE) Glucose (Fingerstick) 146 mg/dL (70-99) Test 05/24/18 09:00 05/24/18 09:29 Sodium Level 145 mmol/L (136-145) Potassium Level 3.4 mmol/L (3.5-5.1) Chloride Level 100 mmol/L (98-107) Carbon Dioxide Level 33 mmol/L (21-32) Anion Gap 12 (6-14) Blood Urea Nitrogen 22 mg/dL (7-20) Creatinine 4.8 mg/dL (0.6-1.0) Estimated GFR (Cockcroft-Gault) 11.4 Glucose Level 147 mg/dL (70-99) Calcium Level 8.7 mg/dL (8.5-10.1) Magnesium Level 1.9 mg/dL (1.8-2.4) Troponin I Quantitative 0.095 ng/mL (0.000-0.055) Glucose (Fingerstick) 142 mg/dL (70-99) VTE Prophylaxis Ordered VTE Prophylaxis Devices: Yes VTE Pharmacological Prophylaxi: Yes Assessment/Plan Assessment/Plan Intractable abdominal pain etiology undetermined at the present time but most likely peptic ulcer disease given her coffee-ground emesis Intractable nausea and vomiting most likely secondary to the above Mildly elevated troponin most likely demand ischemia Hypertensive urgency End-stage renal disease on hemodialysis History of COPD history of non compliance Diabetes mellitus type 2 Plan: will admit for symptoms control will start protnoix IV BID will consult GI follow telemetry HD as per nephrology further recommendations based on clincal course SCD and TEDS for DVT given possible UGI bleed JASPAL RAMOS MD May 24, 2018 12:35
--- NOTE | 2018-05-24 13:40 | NUR ---
SS following for discharge planning. SS reviewed pt chart. Pt is from home and currently on room air. PT/OT recommended fpc unit. Pt has [place] [employer] and discharge options would be acute rehabilitation vs home healthcare. SS met with pt in room and discussed discharge planning and acute rehabilitation vs. home healthcare. Pt reported that she wanted to go to acute rehabilitation and requested referral be sent to [facility], ; fax [phone]. SS phoned and faxed referral. SS will await acceptance decision and insurance determination and will proceed accordingly. Pt's RN notified.
--- NOTE | 2018-05-24 14:15 | PDOC2 ---
GI CONSULT Reason For Consult: Cyclic vomiting and nausea HPI: HPI: 57 y/o female who we have seen in the past. Came to ER w/ n/v and stabbing central chest pain x 2 days. Hypertensive in ER (251/119), then hospitalist witnessed coffee-ground emesis. She is a poor historian. "My nurse can tell you better than me." H/o non-compliance and substance abuse. Per RN, wants pain meds on the hour and wants to eat and drink but then vomits (reports mild amount of coffee-ground material). Had EGD here in 02/[address] (mild thickening of distal esophagus similar to prior imaging) which showed reflux esophagitis (no Gonzalez's on biopsy). Per office records, colonoscopy in 08/2010 w/ normal random colon biopsies. S/p cholecystectomy. Mildly elevated lipase in the past. Chronic anemia (Hgb averages 9-11), anemia parameters WNL in 2018 except low TIBC. Unclear what she takes at home. PMH: PMH: CHF, HTN, HLD, COPD, DM, PN, fibromyalgia, OA, ESRD on HD, GERD, hypothyroidism , glaucoma, anxiety, substance abuse, cataracts, hysterectomy, cholecystectomy FH: Family History: Other Social History: Smoke: 1 pack per day ALCOHOL: other (won't answer) Drugs: Cocaine, Marijuana ROS: Per HPI. Vitals: Vitals: Vital Signs Date Time Temp Pulse Resp B/P (MAP) Pulse Ox O2 Delivery O2 Flow Rate FiO2 05/24/18 13:11 18 Room Air 05/24/18 10:42 100 212/104 05/24/18 05:51 99 05/24/18 02:25 97.7 97.7 Labs: Labs: Laboratory Tests Test 05/23/18 23:45 05/24/18 00:14 05/24/18 04:40 05/24/18 05:44 White Blood Count 11.5 x10^3/uL (4.0-11.0) Red Blood Count 4.19 x10^6/uL (3.50-5.40) Hemoglobin 11.8 g/dL (12.0-15.5) Hematocrit 36.2 % (36.0-47.0) Mean Corpuscular Volume 86 fL (79-100) Mean Corpuscular Hemoglobin 28 pg (25-35) Mean Corpuscular Hemoglobin Concent 33 g/dL (31-37) Red Cell Distribution Width 18.5 % (11.5-14.5) Platelet Count 376 x10^3/uL (140-400) Neutrophils (%) (Auto) 90 % (31-73) Lymphocytes (%) (Auto) 8 % (24-48) Monocytes (%) (Auto) 2 % (0-9) Eosinophils (%) (Auto) 0 % (0-3) Basophils (%) (Auto) 1 % (0-3) Neutrophils # (Auto) 10.3 x10^3uL (1.8-7.7) Lymphocytes # (Auto) 0.9 x10^3/uL (1.0-4.8) Monocytes # (Auto) 0.2 x10^3/uL (0.0-1.1) Eosinophils # (Auto) 0.0 x10^3/uL (0.0-0.7) Basophils # (Auto) 0.1 x10^3/uL (0.0-0.2) Segmented Neutrophils % 88 % (35-66) Lymphocytes % 8 % (24-48) Monocytes % 4 % (0-10) Platelet Estimate Adequate (ADEQUATE) Polychromasia Slight Hypochromasia Slight Anisocytosis Slight Sodium Level 142 mmol/L (136-145) Potassium Level 3.2 mmol/L (3.5-5.1) Chloride Level 100 mmol/L (98-107) Carbon Dioxide Level 28 mmol/L (21-32) Anion Gap 14 (6-14) Blood Urea Nitrogen 17 mg/dL (7-20) Creatinine 4.0 mg/dL (0.6-1.0) Estimated GFR (Cockcroft-Gault) 14.1 BUN/Creatinine Ratio 4 (6-20) Glucose Level 154 mg/dL (70-99) Calcium Level 9.3 mg/dL (8.5-10.1) Phosphorus Level 3.5 mg/dL (2.6-4.7) Magnesium Level 2.0 mg/dL (1.8-2.4) Total Bilirubin 0.6 mg/dL (0.2-1.0) Aspartate Amino Transf (AST/SGOT) 25 U/L (15-37) Alanine Aminotransferase (ALT/SGPT) 13 U/L (14-59) Alkaline Phosphatase 91 U/L (46-116) Troponin I Quantitative 0.086 ng/mL (0.000-0.055) 0.094 ng/mL (0.000-0.055) Total Protein 7.7 g/dL (6.4-8.2) Albumin 3.4 g/dL (3.4-5.0) Albumin/Globulin Ratio 0.8 (1.0-1.7) Lipase 246 U/L (73-393) Influenza Type A Antigen Negative (NEGATIVE) Influenza Type B Antigen Negative (NEGATIVE) Glucose (Fingerstick) 146 mg/dL (70-99) Test 05/24/18 09:00 05/24/18 09:29 Sodium Level 145 mmol/L (136-145) Potassium Level 3.4 mmol/L (3.5-5.1) Chloride Level 100 mmol/L (98-107) Carbon Dioxide Level 33 mmol/L (21-32) Anion Gap 12 (6-14) Blood Urea Nitrogen 22 mg/dL (7-20) Creatinine 4.8 mg/dL (0.6-1.0) Estimated GFR (Cockcroft-Gault) 11.4 Glucose Level 147 mg/dL (70-99) Calcium Level 8.7 mg/dL (8.5-10.1) Magnesium Level 1.9 mg/dL (1.8-2.4) Troponin I Quantitative 0.095 ng/mL (0.000-0.055) Glucose (Fingerstick) 142 mg/dL (70-99) Allergies: Coded Allergies: morphine (Verified Allergy, Intermediate, Itching, 03/27/18) Medications: Current Medications Medications (Trade) Dose Ordered Sig/Clarence Route PRN Reason Start Time Stop Time Status Last Admin Dose Admin Fentanyl Citrate (Fentanyl 2ml Vial) 50 mcg PRN Q15MIN PRN IV PAIN GREATER THAN 3/10 05/23/18 23:45 05/24/18 23:44 05/24/18 05:21 Ondansetron HCl (Zofran) 4 mg 1X ONCE IV 05/24/18 00:00 05/24/18 00:01 DC 05/24/18 00:12 Labetalol HCl (Normodyne Iv Push) 20 mg 1X ONCE IVP 05/24/18 00:00 05/24/18 00:01 DC 05/24/18 00:12 Ondansetron HCl (Zofran) 4 mg 1X ONCE IV 05/24/18 02:00 05/24/18 02:01 DC 05/24/18 01:49 Labetalol HCl (Normodyne Iv Push) 20 mg 1X ONCE IVP 05/24/18 02:00 05/24/18 02:01 DC 05/24/18 01:50 Ondansetron HCl (Zofran) 4 mg PRN Q8HRS PRN IV NAUSEA/VOMITING 1st choice 05/24/18 01:45 05/24/18 08:58 DC 05/24/18 05:16 Fentanyl Citrate (Fentanyl 2ml Vial) 50 mcg PRN Q1HR PRN IV SEVERE PAIN 05/24/18 01:45 05/25/18 01:44 05/24/18 13:11 Labetalol HCl (Normodyne Iv Push) 20 mg PRN Q4HRS PRN IVP SBP>170 05/24/18 02:00 05/24/18 10:42 Amlodipine Besylate (Norvasc) 10 mg DAILY PO 05/24/18 09:30 05/24/18 09:37 Carvedilol (Coreg) 6.25 mg BIDWMEALS PO 05/24/18 09:30 05/24/18 09:38 Clonidine HCl (Catapres Tts-2) 1 patch WEEKLY TD 05/24/18 09:30 05/24/18 09:36 Pantoprazole Sodium (Protonix) 40 mg DAILYAC PO 05/24/18 09:30 05/24/18 09:37 Ondansetron HCl (Zofran) 4 mg PRN Q4HRS PRN IV NAUSEA/VOMITING 1st choice 05/24/18 09:00 05/24/18 09:33 Imaging: Imaging: CXR Left IJ vascular catheter tip projects over the distal SVC/proximal right atrium. The heart is mildly enlarged. Interval improvement in the bilateral lung opacities with minimal residuals in the lung bases. No pleural effusion or pneumothorax. PE: GEN: laying on side under covers ABD: I touched her epigastric region and she pushed by hand away NEURO/PSYCH: doesn't talk much A/P: A/P: Chest pain, n/v, coffee-ground emesis GERD - EGD 02/2018 Uncontrolled HTN, ESRD on HD, chronic anemia, mildly elevated troponin Non-compliance CRC screen - UTD S/p cholecystectomy H/o substance abuse -- Pain and vomiting likely multi-factorial. Check tox screen. Change PPI to IV consider vomiting. Other per Dr. Hernandez. ILANA DIEGO May 24, 2018 14:15
[2018-05-24 15:00] VITALS: BP 165/89
[2018-05-24 15:21] LABS: BARBITURATES NEG (NEG); BENZODIAZEPINES NEG (NEG); CANNABINOIDS POS (NEG); COCAINE NEG (NEG); METHADONE NEG (NEG); OPIATES NEG (NEG); PHENCYCLIDINE NEG (NEG)
[2018-05-24 15:24] LABS: AMPHETAMINE/METHAMPHETAMINE NEG (NEG)
[2018-05-24] MEDS ORDERED: LIDOCAINE 2% VISCOUS 15 ML SOLUTION. SWSW PRN (15:30)
[2018-05-24] MEDS: hydrALAZINE 20 MG/ML VIAL. IVP PRN (18:15)
[2018-05-24] MEDS: PANTOPRAZOLE IV PUSH 40 MG VIAL. IVP SCH (18:32)
[2018-05-24 18:56] VITALS: BP 137/63
[2018-05-24] MEDS ORDERED: ZOLPIDEM 5 MG TABLET. PO PRN (20:15)
[2018-05-24] MEDS: ATORVASTATIN CALCIUM 40 MG TABLET. PO SCH (21:00)
[2018-05-24] MEDS: LATANOPROST 0.005% OPHTH SOLUTION 2.5ML BOTTLE. OU SCH (21:00)
[2018-05-24 23:16] VITALS: BP 154/75
--- NOTE | 2018-05-25 01:00 | NUR ---
Pt's IV became tender/painful, started to leak when administering IV fentanyl. IV was d/c'd and staff was unable to establish a new IV, 2 RN's, 5 sticks unsuccessful. Pt was educated about lack of IV access, and not being able to received IV pain medications. VSS, bed in low/locked position, call light within reach, will continue to monitor for status changes.
[2018-05-25 03:00] VITALS: BP 180/73
[2018-05-25] MEDS: ALPRAZolam 0.5 MG TABLET PO PRN (03:24)
[2018-05-25] MEDS: LEVOTHYROXINE 50 MCG TABLET PO SCH (06:00)
[2018-05-25 07:00] VITALS: BP 196/90
[2018-05-25] MEDS: PANTOPRAZOLE IV PUSH 40 MG VIAL. IVP SCH (07:30)
[2018-05-25] MEDS: INSULIN LISPRO 300 UNITS/3 ML INSULN.PEN. SQ SCH ×3 (08:00→17:00)
[2018-05-25] MEDS: amLODIPine BESYLATE 5 MG TABLET PO SCH (08:48)
[2018-05-25] MEDS: CARVEDILOL 6.25 MG TABLET. PO SCH ×2 (08:49→17:00)
[2018-05-25] MEDS ORDERED: PANTOPRAZOLE 40 MG TABLET.DR. PO SCH (09:00)
--- NOTE | 2018-05-25 09:48 | PDOC ---
Subjective: Subjective: Stabbing chest pain, worse w/ swallowing, no vomiting since last night, wants apple juice. Objective: Objective: Per RN - lost IV access last night so changed to PO PPI, no vomiting or bleeding. Vital Signs: Vital Signs Date Time Temp Pulse Resp B/P (MAP) Pulse Ox O2 Delivery O2 Flow Rate FiO2 05/25/18 08:49 105 196/90 05/25/18 03:00 97.8 93 Room Air 97.8 05/24/18 23:16 16 Labs: Laboratory Tests Test 05/24/18 14:37 05/24/18 15:05 05/24/18 17:47 05/24/18 20:53 Glucose (Fingerstick) 141 mg/dL 158 mg/dL 69 mg/dL Urine Opiates Screen Neg Urine Methadone Screen Neg Urine Barbiturates Neg Urine Phencyclidine Screen Neg Urine Amphetamine/Methamphetamine Neg Urine Benzodiazepines Screen Neg Urine Cocaine Screen Neg Urine Cannabinoids Screen Pos Urine Ethyl Alcohol Neg Test 05/25/18 07:42 05/25/18 08:56 Glucose (Fingerstick) 68 mg/dL 116 mg/dL PE: GEN: NAD, daughter on speakerphone LUNGS: CTAB HEART: RRR ABD: lets me examine her today - non-tender, soft NEURO/PSYCH: A & O 3 A/P: Chest pain, HTN, ESRD on HD N/v, "coffee-ground emesis" - resolved GERD - EGD 02/2018, no Gonzalez's or ulcer Chronic anemia +marijuana Non-compliance -- ADAT. Can have BID PPI here - on discharge, would sent w/ pantoprazole 40mg QD (with refills please!) ?not sure why she's on ILANA Milton May 25, 2018 09:48
[2018-05-25] MEDS: fentaNYL PF VIAL 100 MCG/2 ML VIAL IV PRN ×5 (09:58→23:30)
[2018-05-25] MEDS: hydrALAZINE 20 MG/ML VIAL. IVP PRN (10:01)
[2018-05-25 11:00] VITALS: BP 108/56
--- NOTE | 2018-05-25 11:03 | PDOC ---
Renal-Progress Notes Subjective Notes Notes NOTHING NEW History of Present Illness Hx of present illness STABLE Vitals Vitals Vital Signs Date Time Temp Pulse Resp B/P (MAP) Pulse Ox O2 Delivery O2 Flow Rate FiO2 05/25/18 10:01 105 196/90 05/25/18 09:58 18 Room Air 05/25/18 03:00 97.8 93 97.8 Weight Weight [ ] I.O. Intake and Output Intake and Output 05/25/18 07:00 Intake Total 360 ml Output Total 300 ml Balance 60 ml Intake Oral 360 ml Output Urine Total 0 ml Emesis 300 ml Labs Labs Laboratory Tests Test 05/24/18 14:37 05/24/18 15:05 05/24/18 17:47 05/24/18 20:53 Glucose (Fingerstick) 141 mg/dL (70-99) 158 mg/dL (70-99) 69 mg/dL (70-99) Urine Opiates Screen Neg (NEG) Urine Methadone Screen Neg (NEG) Urine Barbiturates Neg (NEG) Urine Phencyclidine Screen Neg (NEG) Urine Amphetamine/Methamphetamine Neg (NEG) Urine Benzodiazepines Screen Neg (NEG) Urine Cocaine Screen Neg (NEG) Urine Cannabinoids Screen Pos (NEG) Urine Ethyl Alcohol Neg (NEG) Test 05/25/18 07:42 05/25/18 08:56 Glucose (Fingerstick) 68 mg/dL (70-99) 116 mg/dL (70-99) Assessment Assessment IMP CHEST PAIN ESRD NON COMPLIANCE WITH MEDS AND HD HTN DM II ANEMIA ABD PAIN-N/V PLAN CARDIOLOGY W/U GI W/U RESUME HOME MEDS ENC COMPLIANCE HD TODAY UF TO DW LISINOPRIL BENY PAINTER MD May 25, 2018 11:03
--- NOTE | 2018-05-25 12:00 | PDOC ---
MORAIMA BERRY COMPLETIONS MANAGER 05/25/18 1200: CARDIO Progress Notes Date and Time Date of Service 05/25/18 Time of Evaluation 1120 Subjective Subjective: No Chest Pain, No shortness of breath, Other (nausea/vomiting better. No emesis since early this am) Vitals Vitals Vital Signs Date Time Temp Pulse Resp B/P (MAP) Pulse Ox O2 Delivery O2 Flow Rate FiO2 05/25/18 11:00 98.6 92 18 108/56 (73) 97 Room Air 98.6 Weight Weight [ ] Input and Output Intake and Output Intake and Output 05/25/18 07:00 Intake Total 360 ml Output Total 300 ml Balance 60 ml Intake Oral 360 ml Output Urine Total 0 ml Emesis 300 ml Laboratory Labs Laboratory Tests Test 05/24/18 14:37 05/24/18 15:05 05/24/18 17:47 05/24/18 20:53 Glucose (Fingerstick) 141 mg/dL (70-99) 158 mg/dL (70-99) 69 mg/dL (70-99) Urine Opiates Screen Neg (NEG) Urine Methadone Screen Neg (NEG) Urine Barbiturates Neg (NEG) Urine Phencyclidine Screen Neg (NEG) Urine Amphetamine/Methamphetamine Neg (NEG) Urine Benzodiazepines Screen Neg (NEG) Urine Cocaine Screen Neg (NEG) Urine Cannabinoids Screen Pos (NEG) Urine Ethyl Alcohol Neg (NEG) Test 05/25/18 07:42 05/25/18 08:56 Glucose (Fingerstick) 68 mg/dL (70-99) 116 mg/dL (70-99) Physical Exam HEENT: Neck Supple W Full Motion Chest: Symmetric LUNGS: Clear to Auscultation Heart: S1S2, RRR Abdomen: Soft N/T Extremities: No Edema Neurology: alert, follow commands Assessment Assessment 1. Nausea/vomiting, abdominal pain; PPI. Continue as per GI 2. Accelerated hypertension; remains elevated. IV went bad, stuck multiple times, unsuccessful. Able to take PO pills this am as no further emesis since early this am 3. Chest pain, noncardiac; reports pain surrounding HD catheter. Site tender upon palpation. Recent stress test without any evidence of ischemia or infarct as noted above. 4. Mild troponin elevated; highest 0.095. multifactorial, demand mediated type 2 5. Chronic diastolic CHF: compensated 6. ESRD on HD 7. Hypokalemia 8. Hyperlipidemia; statin 9. DM, II; as per PCP 10. Hypothyroidism; on replacement Recommendations Monitor BP response with oral antiHTN therapy and assess need for therapy titration. Continue clonidine patch. Hydralazine IV PRN if able to obtain IC access. Fluid offloading via HD as per nephrology Supportive care RILEY WHITE MD 05/25/182046: CARDIO Progress Notes Assessment Assessment Patient seen and examined. Agree with SYSTEM SUPPORT ADMINISTRATOR's assessment and plan. BP continues to be labile - will titrate antihypertensives for better control CP non cardiac - slight troponin elevation demand ischemia Continue management of N/V per GI Continue HD per nephrology MORAIMA BERRY APRN May 25, 2018 12:00 RILEY WHITE MD May 25, 2018 20:47
--- NOTE | 2018-05-25 12:24 | PDOC ---
PROGRESS NOTES Chief Complaint Chief Complaint Intractable abdominal pain, likely peptic ulcer disease Intractable nausea and vomiting Mildly elevated troponin Hypertensive urgency End-stage renal disease on hemodialysis History of COPD History of non compliance Diabetes mellitus type 2 History of Present Illness History of Present Illness Patient was seen and examined in her room this morning. She was lying in bed. GI following for abdominal pain, nausea, and vomiting. She has been noncompliant with her dialysis and medications. She will undergo dialysis today. Renal following. She also had some chest pain, for which cardiology is following. Discharge disposition pending. Vitals Vitals Vital Signs Date Time Temp Pulse Resp B/P (MAP) Pulse Ox O2 Delivery O2 Flow Rate FiO2 05/25/18 11:00 98.6 92 18 108/56 (73) 97 Room Air 98.6 Physical Exam General: Alert, Oriented X3, Cooperative, No acute distress Heart: Regular rate, Normal S1, Normal S2 Lungs: Clear, Other (no rhonchi) Abdomen: Soft, No tenderness Extremities: No clubbing, No cyanosis, No edema Skin: No rashes, No breakdown Labs LABS Laboratory Tests Test 05/24/18 14:37 05/24/18 15:05 05/24/18 17:47 05/24/18 20:53 Glucose (Fingerstick) 141 mg/dL (70-99) 158 mg/dL (70-99) 69 mg/dL (70-99) Urine Opiates Screen Neg (NEG) Urine Methadone Screen Neg (NEG) Urine Barbiturates Neg (NEG) Urine Phencyclidine Screen Neg (NEG) Urine Amphetamine/Methamphetamine Neg (NEG) Urine Benzodiazepines Screen Neg (NEG) Urine Cocaine Screen Neg (NEG) Urine Cannabinoids Screen Pos (NEG) Urine Ethyl Alcohol Neg (NEG) Test 05/25/18 07:42 05/25/18 08:56 Glucose (Fingerstick) 68 mg/dL (70-99) 116 mg/dL (70-99) Review of Systems Review of Systems Complains of chest pain and weakness. Denies headache or shortness of breath. Assessment and Plan Assessmemt and Plan Assessment: Intractable abdominal pain, likely peptic ulcer disease Intractable nausea and vomiting Mildly elevated troponin Hypertensive urgency End-stage renal disease on hemodialysis History of COPD History of non compliance Diabetes mellitus type 2 Plan: 1. Cardiac monitoring 2. Hemodialysis today 3. IV Protonix 4. Palliative care consult 5. Monitor labs 6. Home meds 7. PT/OT 8. DVT prophylaxis 9. Appreciate subspecialty input 10. Discharge disposition pending Comment Review of Relevant I have reviewed the following items pamela (where applicable) has been applied. Labs Laboratory Tests Test 05/23/18 23:45 05/24/18 00:14 05/24/18 04:40 05/24/18 05:44 White Blood Count 11.5 x10^3/uL (4.0-11.0) Red Blood Count 4.19 x10^6/uL (3.50-5.40) Hemoglobin 11.8 g/dL (12.0-15.5) Hematocrit 36.2 % (36.0-47.0) Mean Corpuscular Volume 86 fL (79-100) Mean Corpuscular Hemoglobin 28 pg (25-35) Mean Corpuscular Hemoglobin Concent 33 g/dL (31-37) Red Cell Distribution Width 18.5 % (11.5-14.5) Platelet Count 376 x10^3/uL (140-400) Neutrophils (%) (Auto) 90 % (31-73) Lymphocytes (%) (Auto) 8 % (24-48) Monocytes (%) (Auto) 2 % (0-9) Eosinophils (%) (Auto) 0 % (0-3) Basophils (%) (Auto) 1 % (0-3) Neutrophils # (Auto) 10.3 x10^3uL (1.8-7.7) Lymphocytes # (Auto) 0.9 x10^3/uL (1.0-4.8) Monocytes # (Auto) 0.2 x10^3/uL (0.0-1.1) Eosinophils # (Auto) 0.0 x10^3/uL (0.0-0.7) Basophils # (Auto) 0.1 x10^3/uL (0.0-0.2) Segmented Neutrophils % 88 % (35-66) Lymphocytes % 8 % (24-48) Monocytes % 4 % (0-10) Platelet Estimate Adequate (ADEQUATE) Polychromasia Slight Hypochromasia Slight Anisocytosis Slight Sodium Level 142 mmol/L (136-145) Potassium Level 3.2 mmol/L (3.5-5.1) Chloride Level 100 mmol/L (98-107) Carbon Dioxide Level 28 mmol/L (21-32) Anion Gap 14 (6-14) Blood Urea Nitrogen 17 mg/dL (7-20) Creatinine 4.0 mg/dL (0.6-1.0) Estimated GFR (Cockcroft-Gault) 14.1 BUN/Creatinine Ratio 4 (6-20) Glucose Level 154 mg/dL (70-99) Calcium Level 9.3 mg/dL (8.5-10.1) Phosphorus Level 3.5 mg/dL (2.6-4.7) Magnesium Level 2.0 mg/dL (1.8-2.4) Total Bilirubin 0.6 mg/dL (0.2-1.0) Aspartate Amino Transf (AST/SGOT) 25 U/L (15-37) Alanine Aminotransferase (ALT/SGPT) 13 U/L (14-59) Alkaline Phosphatase 91 U/L (46-116) Troponin I Quantitative 0.086 ng/mL (0.000-0.055) 0.094 ng/mL (0.000-0.055) Total Protein 7.7 g/dL (6.4-8.2) Albumin 3.4 g/dL (3.4-5.0) Albumin/Globulin Ratio 0.8 (1.0-1.7) Lipase 246 U/L (73-393) Influenza Type A Antigen Negative (NEGATIVE) Influenza Type B Antigen Negative (NEGATIVE) Glucose (Fingerstick) 146 mg/dL (70-99) Test 05/24/18 09:00 05/24/18 09:29 05/24/18 14:37 05/24/18 15:05 Sodium Level 145 mmol/L (136-145) Potassium Level 3.4 mmol/L (3.5-5.1) Chloride Level 100 mmol/L (98-107) Carbon Dioxide Level 33 mmol/L (21-32) Anion Gap 12 (6-14) Blood Urea Nitrogen 22 mg/dL (7-20) Creatinine 4.8 mg/dL (0.6-1.0) Estimated GFR (Cockcroft-Gault) 11.4 Glucose Level 147 mg/dL (70-99) Calcium Level 8.7 mg/dL (8.5-10.1) Magnesium Level 1.9 mg/dL (1.8-2.4) Troponin I Quantitative 0.095 ng/mL (0.000-0.055) Glucose (Fingerstick) 142 mg/dL (70-99) 141 mg/dL (70-99) Urine Opiates Screen Neg (NEG) Urine Methadone Screen Neg (NEG) Urine Barbiturates Neg (NEG) Urine Phencyclidine Screen Neg (NEG) Urine Amphetamine/Methamphetamine Neg (NEG) Urine Benzodiazepines Screen Neg (NEG) Urine Cocaine Screen Neg (NEG) Urine Cannabinoids Screen Pos (NEG) Urine Ethyl Alcohol Neg (NEG) Test 05/24/18 17:47 05/24/18 20:53 05/25/18 07:42 05/25/18 08:56 Glucose (Fingerstick) 158 mg/dL (70-99) 69 mg/dL (70-99) 68 mg/dL (70-99) 116 mg/dL (70-99) Laboratory Tests Test 05/24/18 14:37 05/24/18 15:05 05/24/18 17:47 05/24/18 20:53 Glucose (Fingerstick) 141 mg/dL (70-99) 158 mg/dL (70-99) 69 mg/dL (70-99) Urine Opiates Screen Neg (NEG) Urine Methadone Screen Neg (NEG) Urine Barbiturates Neg (NEG) Urine Phencyclidine Screen Neg (NEG) Urine Amphetamine/Methamphetamine Neg (NEG) Urine Benzodiazepines Screen Neg (NEG) Urine Cocaine Screen Neg (NEG) Urine Cannabinoids Screen Pos (NEG) Urine Ethyl Alcohol Neg (NEG) Test 05/25/18 07:42 05/25/18 08:56 Glucose (Fingerstick) 68 mg/dL (70-99) 116 mg/dL (70-99) Medications Current Medications Fentanyl Citrate (Fentanyl 2ml Vial) 50 mcg PRN Q15MIN PRN IV PAIN GREATER THAN 3/10 Last administered on 05/24/18at 05:21; Start 05/23/18 at 23:45; Stop at 23:44; Status DC Ondansetron HCl (Zofran) 4 mg 1X ONCE IV Last administered on 05/24/18at 00:12 ; Start 05/24/18 at 00:00; Stop 05/24/18 at 00:01; Status DC Labetalol HCl (Normodyne Iv Push) 20 mg 1X ONCE IVP Last administered on 00:12; Start 05/24/18 at 00:00; Stop 05/24/18 at 00:01; Status DC Ondansetron HCl (Zofran) 4 mg 1X ONCE IV Last administered on 05/24/18at 01:49 ; Start 05/24/18 at 02:00; Stop 05/24/18 at 02:01; Status DC Labetalol HCl (Normodyne Iv Push) 20 mg 1X ONCE IVP Last administered on 01:50; Start 05/24/18 at 02:00; Stop 05/24/18 at 02:01; Status DC Ondansetron HCl (Zofran) 4 mg PRN Q8HRS PRN IV NAUSEA/VOMITING 1st choice Last administered on 05/24/18 05:16; Start 05/24/18 at 01:45; Stop 05/24/18 at 08:58 ; Status DC Fentanyl Citrate (Fentanyl 2ml Vial) 50 mcg PRN Q1HR PRN IV SEVERE PAIN Last administered on 05/24/18 23:58; Start 05/24/18 at 01:45; Stop 05/25/18 at 01:44 ; Status DC Nitroglycerin (Nitrostat) 0.4 mg PRN Q5MIN PRN SL CHEST PAIN Last administered on 05/24/18 18:20; Start 05/24/18 at 01:45; Stop 05/25/18 at 01:44; Status DC Labetalol HCl (Normodyne Iv Push) 20 mg PRN Q4HRS PRN IVP SBP>170 Last administered on 05/24/18at 14:56; Start 05/24/18 at 02:00 Albuterol Sulfate (Ventolin Neb Soln) 2.5 mg PRN BID PRN INH SHORTNESS OF BREATH; Start 05/24/18 at 09:00 Alprazolam (Xanax) 0.5 mg PRN TID PRN PO ANXIETY / AGITATION Last administered on 05/25/18 03:24; Start 05/24/18 at 09:00 Amlodipine Besylate (Norvasc) 10 mg DAILY PO Last administered on 05/25/18 08: 48; Start 05/24/18 at 09:30 Atorvastatin Calcium (Lipitor) 40 mg HS PO ; Start 05/24/18 at 21:00 Carvedilol (Coreg) 6.25 mg BIDWMEALS PO Last administered on 05/25/18 08:49; Start 05/24/18 at 09:30 Clonidine HCl (Catapres Tts-2) 1 patch WEEKLY TD Last administered on 09:36; Start 05/24/18 at 09:30 Insulin Human Lispro (HumaLOG) 25 units TIDWMEALS SQ Last administered on at 18:05; Start 05/24/18 at 09:30 Latanoprost (Xalatan) 1 drop QHS OU ; Start 05/24/18 at 21:00 Levothyroxine Sodium (Synthroid) 50 mcg DAILY06 PO ; Start 05/24/18 at 09:30 Amylase/Lipase/ Protease (Zenpep 5,000) 1 cap TIDWMEALS PO Last administered on 05/25/18 08:49; Start 05/24/18 at 09:30 Pantoprazole Sodium (Protonix) 40 mg DAILYAC PO Last administered on 05/24/18 09:37; Start 05/24/18 at 09:30; Stop 05/24/18 at 14:12; Status DC Ondansetron HCl (Zofran) 4 mg PRN Q4HRS PRN IV NAUSEA/VOMITING 1st choice Last administered on 05/24/18 14:54; Start 05/24/18 at 09:00 Prochlorperazine Edisylate (Compazine) 10 mg PRN Q8HRS PRN IV NAUSEA/VOMITING 2ND CHOICE Last administered on 05/24/18at 20:30; Start 05/24/18 at 10:30 Hydralazine HCl (Apresoline Inj) 10 mg PRN Q4HRS PRN IVP ELEVATED BP, SEE COMMENTS Last administered on 05/24/18 14:54; Start 05/24/18 at 11:15; Stop at 16:32; Status DC Pantoprazole Sodium (PROTONIX VIAL for IV PUSH) 40 mg DAILYAC IVP Last administered on 05/24/18 18:32; Start 05/24/18 at 18:30; Stop 05/25/18 at 08:23 ; Status DC Lidocaine HCl (Viscous Lidocaine) 15 ml PRN Q4HRS PRN SWSW chest/abd pain; Start 05/24/18 at 15:30 Hydralazine HCl (Apresoline Inj) 20 mg PRN Q6HRS PRN IVP ELEVATED BP, SEE COMMENTS Last administered on 05/25/18at 10:01; Start 05/24/18 at 16:45 Nicardipine HCl 50 mg/Sodium Chloride 250 ml @ 20 mls/hr CONT PRN IV SEE I/O RECORD; Start 05/24/18 at 18:45 Zolpidem Tartrate (Ambien) 5 mg PRN QHS PRN PO INSOMNIA; Start 05/24/18 at 20: 15 Pantoprazole Sodium (Protonix) 40 mg DAILYAC PO Last administered on 05/25/18at 08:48; Start 05/25/18 at 09:00; Stop 05/25/18 at 09:47; Status DC Fentanyl Citrate (Fentanyl 2ml Vial) 50 mcg PRN Q2HR PRN IV PAIN Last administered on 05/25/18at 09:58; Start 05/25/18 at 09:30 Oxycodone/ Acetaminophen (Percocet 5/325) 1 tab PRN Q4HRS PRN PO PAIN; Start at 09:30 Pantoprazole Sodium (Protonix) 40 mg BIDAC PO ; Start 05/25/18 at 16:30 Lisinopril (Prinivil) 20 mg DAILY PO ; Start 05/25/18 at 12:00 Active Scripts Active Alprazolam 0.5 Mg Tablet 0.5 Mg PO PRN TID PRN MDD 1 [Pantoprazole] 40 MG Tablet. 40 Mg PO DAILYAC 30 Days Reported Coreg (Carvedilol) 6.25 Mg Tablet 6.25 Mg PO BIDWMEALS Creon 6,000 Units Capsule (Lipase/Protease/Amylase) 1 Each Capsule. 1 Tab PO TID Proair Hfa (Albuterol Sulfate) 8.5 Gm Hfa.aer.ad 2 Puff INH BID PRN Levothyroxine Sodium 50 Mcg Tablet 1 Tab PO DAILY Clonidine Tts-2 (Clonidine) 1 Each Patch.tdwk 1 Patch TD WEEKLY Novolog Flexpen (Insulin Aspart) 100 Unit/1 Ml Insuln.pen 25 Unit SQ TIDAC Amlodipine Besylate 5 Mg Tablet 10 Mg PO DAILY Atorvastatin Calcium 40 Mg Tablet 40 Mg PO HS Latanoprost 2.5 Ml Drops 1 Drop EACHEYE HS Vitals/I & O Vital Sign - Last 24 Hours 05/24/18 05/24/18 05/24/18 05/24/18 13:11 14:54 14:56 15:00 Pulse 100 100 Resp 18 B/P (MAP) 212/104 212/104 165/89 (114) O2 Delivery Room Air 05/24/18 05/24/18 05/24/18 05/24/18 16:21 18:15 18:20 18:56 Temp 98.0 98.0 Pulse 202 94 101 Resp 18 18 B/P (MAP) 101/94 202/101 137/63 (87) Pulse Ox 98 O2 Delivery Room Air Room Air 05/24/18 05/24/18 05/24/18 05/24/18 19:32 20:00 20:02 23:16 Temp 98.0 98.0 Pulse 104 Resp 16 B/P (MAP) 154/75 (101) Pulse Ox 99 99 94 O2 Delivery Room Air Room Air 05/24/18 05/25/18 05/25/18 05/25/18 23:58 00:28 03:00 07:00 Temp 97.8 97.8 Pulse 105 B/P (MAP) 180/73 (108) 196/90 (125) Pulse Ox 93 O2 Delivery Room Air Room Air Room Air 05/25/18 05/25/18 05/25/18 05/25/18 08:48 08:49 09:58 10:01 Pulse 105 105 105 Resp 18 B/P (MAP) 196/90 196/90 196/90 O2 Delivery Room Air 05/25/18 11:00 Temp 98.6 98.6 Pulse 92 Resp 18 B/P (MAP) 108/56 (73) Pulse Ox 97 O2 Delivery Room Air Intake and Output 05/24/18 05/24/18 05/25/18 15:00 23:00 07:00 Intake Total 240 ml 120 ml Output Total 0 ml 300 ml Balance 240 ml -180 ml ANGELINA GOMEZ K III DO May 25, 2018 12:24
[2018-05-25] MEDS ORDERED: IV NORMAL SALINE 1000ML BAG 1,000 ML IV PRN ×2 (13:33)
[2018-05-25] MEDS ORDERED: DIALYSIS PATIENT. MC PRN (13:45)
[2018-05-25] MEDS: ONDANSETRON PF 4 MG/2 ML VIAL. IV PRN (15:05)
--- NOTE | 2018-05-25 15:22 | NUR ---
SS following up with discharge planning. Pt declined for [facility]. SS phoned and faxed referrals to [facility], ; fax [phone], and [facility], ; fax [phone]. SS will await acceptance decision and insurance determination and will proceed accordingly.
[2018-05-25] MEDS: oxyCODONE/APAP 5/325 1 TAB TABLET PO PRN ×2 (16:25→20:36)
[2018-05-25] MEDS: PANTOPRAZOLE 40 MG TABLET.DR. PO SCH (16:25)
[2018-05-25] MEDS: LISINOPRIL 20 MG TABLET PO SCH (16:26)
[2018-05-25 18:48] VITALS: BP 115/59
--- NOTE | 2018-05-25 18:59 | NUR ---
Emar documentation: Patient refused 1700 dose of coreg.
[2018-05-25] MEDS: ATORVASTATIN CALCIUM 40 MG TABLET. PO SCH (20:36)
[2018-05-25] MEDS: LATANOPROST 0.005% OPHTH SOLUTION 2.5ML BOTTLE. OU SCH (20:36)
[2018-05-26] MEDS: oxyCODONE/APAP 5/325 1 TAB TABLET PO PRN ×6 (00:37→23:50)
[2018-05-26] MEDS: fentaNYL PF VIAL 100 MCG/2 ML VIAL IV PRN ×7 (03:50→22:43)
[2018-05-26] MEDS: LEVOTHYROXINE 50 MCG TABLET PO SCH (06:13)
[2018-05-26 07:00] VITALS: BP 142/64
[2018-05-26] MEDS: INSULIN LISPRO 300 UNITS/3 ML INSULN.PEN. SQ SCH (08:00)
[2018-05-26] MEDS: LISINOPRIL 20 MG TABLET PO SCH (09:01)
[2018-05-26] MEDS: CARVEDILOL 6.25 MG TABLET. PO SCH ×2 (09:01→16:36)
[2018-05-26] MEDS: PANTOPRAZOLE 40 MG TABLET.DR. PO SCH ×2 (09:01→16:36)
[2018-05-26] MEDS: amLODIPine BESYLATE 5 MG TABLET PO SCH (09:01)
[2018-05-26 09:50] LABS: BASO # 0.1 x10^3/uL (0.0-0.2); BASO % 1 % (0-3); EOS % 0 % (0-3); HEMATOCRIT 29.2 % (36.0-47.0); HEMOGLOBIN 9.5 g/dL (12.0-15.5); LYMPH # 2.2 x10^3/uL (1.0-4.8); LYMPH % 25 % (24-48); MEAN CORPUSCULAR HEMOGLOBIN 29 pg (25-35); MEAN CORPUSCULAR HGB CONC 32 g/dL (31-37); MEAN CORPUSCULAR VOLUME 90 fL (79-100); MONO % 11 % (0-9); NEUT # 5.7 x10^3uL (1.8-7.7); NEUT % 63 % (31-73); PLATELET COUNT 220 x10^3/uL (140-400); RED BLOOD COUNT 3.26 x10^6/uL (3.50-5.40); RED CELL DISTRIBUTION WIDTH 19.8 % (11.5-14.5)
[2018-05-26 10:10] LABS: ALBUMIN 2.5 g/dL (3.4-5.0); ALBUMIN/GLOBULIN RATIO 0.8 (1.0-1.7); CALCIUM 8.3 mg/dL (8.5-10.1); CREATININE 4.6 mg/dL (0.6-1.0); POTASSIUM 3.9 mmol/L (3.5-5.1); TOTAL BILIRUBIN 0.5 mg/dL (0.2-1.0); TOTAL PROTEIN 5.7 g/dL (6.4-8.2)
[2018-05-26 11:00] VITALS: BP 137/60
--- NOTE | 2018-05-26 11:59 | PDOC ---
PROGRESS NOTES Chief Complaint Chief Complaint Intractable abdominal pain, likely peptic ulcer disease Intractable nausea and vomiting Mildly elevated troponin Hypertensive urgency End-stage renal disease on hemodialysis History of COPD History of non compliance Diabetes mellitus type 2 History of Present Illness History of Present Illness Patient was seen and examined in her room this morning. She was lying in bed. GI following for abdominal pain, nausea, and vomiting. She has been noncompliant with her dialysis and medications. She received hemodialysis yesterday. Renal following. She continues to complain of chest pain and dysphagia (suspect pleurisy). Cardiology is following. Discharge disposition pending. Awaiting palliative care input. Vitals Vitals Vital Signs Date Time Temp Pulse Resp B/P (MAP) Pulse Ox O2 Delivery O2 Flow Rate FiO2 05/26/18 11:00 71 18 137/60 (85) Room Air 05/26/18 07:00 97.8 93 97.8 05/25/18 18:48 93.0 Physical Exam General: Alert, Oriented X3, Cooperative, No acute distress Heart: Regular rate, Normal S1, Normal S2 Lungs: Clear, Other (no rhonchi) Abdomen: Soft, No tenderness Extremities: No clubbing, No cyanosis, No edema Skin: No rashes, No breakdown Labs LABS Laboratory Tests Test 05/25/18 12:09 05/25/18 16:50 05/25/18 20:27 05/26/18 08:03 Glucose (Fingerstick) 164 mg/dL (70-99) 97 mg/dL (70-99) 129 mg/dL (70-99) 113 mg/dL (70-99) Test 05/26/18 09:15 White Blood Count 9.0 x10^3/uL (4.0-11.0) Red Blood Count 3.26 x10^6/uL (3.50-5.40) Hemoglobin 9.5 g/dL (12.0-15.5) Hematocrit 29.2 % (36.0-47.0) Mean Corpuscular Volume 90 fL (79-100) Mean Corpuscular Hemoglobin 29 pg (25-35) Mean Corpuscular Hemoglobin Concent 32 g/dL (31-37) Red Cell Distribution Width 19.8 % (11.5-14.5) Platelet Count 220 x10^3/uL (140-400) Neutrophils (%) (Auto) 63 % (31-73) Lymphocytes (%) (Auto) 25 % (24-48) Monocytes (%) (Auto) 11 % (0-9) Eosinophils (%) (Auto) 0 % (0-3) Basophils (%) (Auto) 1 % (0-3) Neutrophils # (Auto) 5.7 x10^3uL (1.8-7.7) Lymphocytes # (Auto) 2.2 x10^3/uL (1.0-4.8) Monocytes # (Auto) 1.0 x10^3/uL (0.0-1.1) Eosinophils # (Auto) 0.0 x10^3/uL (0.0-0.7) Basophils # (Auto) 0.1 x10^3/uL (0.0-0.2) Sodium Level 138 mmol/L (136-145) Potassium Level 3.9 mmol/L (3.5-5.1) Chloride Level 99 mmol/L (98-107) Carbon Dioxide Level 32 mmol/L (21-32) Anion Gap 7 (6-14) Blood Urea Nitrogen 15 mg/dL (7-20) Creatinine 4.6 mg/dL (0.6-1.0) Estimated GFR (Cockcroft-Gault) 12.0 BUN/Creatinine Ratio 3 (6-20) Glucose Level 122 mg/dL (70-99) Calcium Level 8.3 mg/dL (8.5-10.1) Total Bilirubin 0.5 mg/dL (0.2-1.0) Aspartate Amino Transf (AST/SGOT) 20 U/L (15-37) Alanine Aminotransferase (ALT/SGPT) 12 U/L (14-59) Alkaline Phosphatase 61 U/L (46-116) Total Protein 5.7 g/dL (6.4-8.2) Albumin 2.5 g/dL (3.4-5.0) Albumin/Globulin Ratio 0.8 (1.0-1.7) Review of Systems Review of Systems Complains of chest pain and dysphagia. Denies dizziness or constipation. Assessment and Plan Assessmemt and Plan Assessment: Intractable abdominal pain, likely peptic ulcer disease Intractable nausea and vomiting Mildly elevated troponin Hypertensive urgency End-stage renal disease on hemodialysis History of COPD History of non compliance Diabetes mellitus type 2 Plan: 1. Cardiac monitoring 2. Hemodialysis MWF 3. IV Protonix 4. Awaiting palliative care input 5. Sliding scale insulin 6: Zoloft 50mg qd 7. Monitor labs 8. Home meds 9. PT/OT 10. DVT prophylaxis 11. Appreciate subspecialty input 12. Discharge disposition pending Comment Review of Relevant I have reviewed the following items pamela (where applicable) has been applied. Labs Laboratory Tests Test 05/24/18 14:37 05/24/18 15:05 05/24/18 17:47 05/24/18 20:53 Glucose (Fingerstick) 141 mg/dL (70-99) 158 mg/dL (70-99) 69 mg/dL (70-99) Urine Opiates Screen Neg (NEG) Urine Methadone Screen Neg (NEG) Urine Barbiturates Neg (NEG) Urine Phencyclidine Screen Neg (NEG) Urine Amphetamine/Methamphetamine Neg (NEG) Urine Benzodiazepines Screen Neg (NEG) Urine Cocaine Screen Neg (NEG) Urine Cannabinoids Screen Pos (NEG) Urine Ethyl Alcohol Neg (NEG) Test 05/25/18 07:42 05/25/18 08:56 05/25/18 12:09 05/25/18 16:50 Glucose (Fingerstick) 68 mg/dL (70-99) 116 mg/dL (70-99) 164 mg/dL (70-99) 97 mg/dL (70-99) Test 05/25/18 20:27 05/26/18 08:03 05/26/18 09:15 Glucose (Fingerstick) 129 mg/dL (70-99) 113 mg/dL (70-99) White Blood Count 9.0 x10^3/uL (4.0-11.0) Red Blood Count 3.26 x10^6/uL (3.50-5.40) Hemoglobin 9.5 g/dL (12.0-15.5) Hematocrit 29.2 % (36.0-47.0) Mean Corpuscular Volume 90 fL (79-100) Mean Corpuscular Hemoglobin 29 pg (25-35) Mean Corpuscular Hemoglobin Concent 32 g/dL (31-37) Red Cell Distribution Width 19.8 % (11.5-14.5) Platelet Count 220 x10^3/uL (140-400) Neutrophils (%) (Auto) 63 % (31-73) Lymphocytes (%) (Auto) 25 % (24-48) Monocytes (%) (Auto) 11 % (0-9) Eosinophils (%) (Auto) 0 % (0-3) Basophils (%) (Auto) 1 % (0-3) Neutrophils # (Auto) 5.7 x10^3uL (1.8-7.7) Lymphocytes # (Auto) 2.2 x10^3/uL (1.0-4.8) Monocytes # (Auto) 1.0 x10^3/uL (0.0-1.1) Eosinophils # (Auto) 0.0 x10^3/uL (0.0-0.7) Basophils # (Auto) 0.1 x10^3/uL (0.0-0.2) Sodium Level 138 mmol/L (136-145) Potassium Level 3.9 mmol/L (3.5-5.1) Chloride Level 99 mmol/L (98-107) Carbon Dioxide Level 32 mmol/L (21-32) Anion Gap 7 (6-14) Blood Urea Nitrogen 15 mg/dL (7-20) Creatinine 4.6 mg/dL (0.6-1.0) Estimated GFR (Cockcroft-Gault) 12.0 BUN/Creatinine Ratio 3 (6-20) Glucose Level 122 mg/dL (70-99) Calcium Level 8.3 mg/dL (8.5-10.1) Total Bilirubin 0.5 mg/dL (0.2-1.0) Aspartate Amino Transf (AST/SGOT) 20 U/L (15-37) Alanine Aminotransferase (ALT/SGPT) 12 U/L (14-59) Alkaline Phosphatase 61 U/L (46-116) Total Protein 5.7 g/dL (6.4-8.2) Albumin 2.5 g/dL (3.4-5.0) Albumin/Globulin Ratio 0.8 (1.0-1.7) Laboratory Tests Test 05/25/18 12:09 05/25/18 16:50 05/25/18 20:27 05/26/18 08:03 Glucose (Fingerstick) 164 mg/dL (70-99) 97 mg/dL (70-99) 129 mg/dL (70-99) 113 mg/dL (70-99) Test 05/26/18 09:15 White Blood Count 9.0 x10^3/uL (4.0-11.0) Red Blood Count 3.26 x10^6/uL (3.50-5.40) Hemoglobin 9.5 g/dL (12.0-15.5) Hematocrit 29.2 % (36.0-47.0) Mean Corpuscular Volume 90 fL (79-100) Mean Corpuscular Hemoglobin 29 pg (25-35) Mean Corpuscular Hemoglobin Concent 32 g/dL (31-37) Red Cell Distribution Width 19.8 % (11.5-14.5) Platelet Count 220 x10^3/uL (140-400) Neutrophils (%) (Auto) 63 % (31-73) Lymphocytes (%) (Auto) 25 % (24-48) Monocytes (%) (Auto) 11 % (0-9) Eosinophils (%) (Auto) 0 % (0-3) Basophils (%) (Auto) 1 % (0-3) Neutrophils # (Auto) 5.7 x10^3uL (1.8-7.7) Lymphocytes # (Auto) 2.2 x10^3/uL (1.0-4.8) Monocytes # (Auto) 1.0 x10^3/uL (0.0-1.1) Eosinophils # (Auto) 0.0 x10^3/uL (0.0-0.7) Basophils # (Auto) 0.1 x10^3/uL (0.0-0.2) Sodium Level 138 mmol/L (136-145) Potassium Level 3.9 mmol/L (3.5-5.1) Chloride Level 99 mmol/L (98-107) Carbon Dioxide Level 32 mmol/L (21-32) Anion Gap 7 (6-14) Blood Urea Nitrogen 15 mg/dL (7-20) Creatinine 4.6 mg/dL (0.6-1.0) Estimated GFR (Cockcroft-Gault) 12.0 BUN/Creatinine Ratio 3 (6-20) Glucose Level 122 mg/dL (70-99) Calcium Level 8.3 mg/dL (8.5-10.1) Total Bilirubin 0.5 mg/dL (0.2-1.0) Aspartate Amino Transf (AST/SGOT) 20 U/L (15-37) Alanine Aminotransferase (ALT/SGPT) 12 U/L (14-59) Alkaline Phosphatase 61 U/L (46-116) Total Protein 5.7 g/dL (6.4-8.2) Albumin 2.5 g/dL (3.4-5.0) Albumin/Globulin Ratio 0.8 (1.0-1.7) Medications Current Medications Fentanyl Citrate (Fentanyl 2ml Vial) 50 mcg PRN Q15MIN PRN IV PAIN GREATER THAN 3/10 Last administered on 05/24/18at 05:21; Start 05/23/18 at 23:45; Stop at 23:44; Status DC Ondansetron HCl (Zofran) 4 mg 1X ONCE IV Last administered on 05/24/18at 00:12 ; Start 05/24/18 at 00:00; Stop 05/24/18 at 00:01; Status DC Labetalol HCl (Normodyne Iv Push) 20 mg 1X ONCE IVP Last administered on at 00:12; Start 05/24/18 at 00:00; Stop 05/24/18 at 00:01; Status DC Ondansetron HCl (Zofran) 4 mg 1X ONCE IV Last administered on 05/24/18at 01:49 ; Start 05/24/18 at 02:00; Stop 05/24/18 at 02:01; Status DC Labetalol HCl (Normodyne Iv Push) 20 mg 1X ONCE IVP Last administered on at 01:50; Start 05/24/18 at 02:00; Stop 05/24/18 at 02:01; Status DC Ondansetron HCl (Zofran) 4 mg PRN Q8HRS PRN IV NAUSEA/VOMITING 1st choice Last administered on 05/24/18at 05:16; Start 05/24/18 at 01:45; Stop 05/24/18 at 08:58 ; Status DC Fentanyl Citrate (Fentanyl 2ml Vial) 50 mcg PRN Q1HR PRN IV SEVERE PAIN Last administered on 05/24/18at 23:58; Start 05/24/18 at 01:45; Stop 05/25/18 at 01:44 ; Status DC Nitroglycerin (Nitrostat) 0.4 mg PRN Q5MIN PRN SL CHEST PAIN Last administered on 05/24/18 18:20; Start 05/24/18 at 01:45; Stop 05/25/18 at 01:44; Status DC Labetalol HCl (Normodyne Iv Push) 20 mg PRN Q4HRS PRN IVP SBP>170 Last administered on 05/24/18 14:56; Start 05/24/18 at 02:00 Albuterol Sulfate (Ventolin Neb Soln) 2.5 mg PRN BID PRN INH SHORTNESS OF BREATH; Start 05/24/18 at 09:00 Alprazolam (Xanax) 0.5 mg PRN TID PRN PO ANXIETY / AGITATION Last administered on 05/25/18 03:24; Start 05/24/18 at 09:00 Amlodipine Besylate (Norvasc) 10 mg DAILY PO Last administered on 05/26/18 09: 01; Start 05/24/18 at 09:30 Atorvastatin Calcium (Lipitor) 40 mg HS PO Last administered on 05/25/18 20:36 ; Start 05/24/18 at 21:00 Carvedilol (Coreg) 6.25 mg BIDWMEALS PO Last administered on 05/26/18 09:01; Start 05/24/18 at 09:30 Clonidine HCl (Catapres Tts-2) 1 patch WEEKLY TD Last administered on 09:36; Start 05/24/18 at 09:30 Insulin Human Lispro (HumaLOG) 25 units TIDWMEALS SQ Last administered on 18:05; Start 05/24/18 at 09:30 Latanoprost (Xalatan) 1 drop QHS OU Last administered on 05/25/18 20:36; Start 05/24/18 at 21:00 Levothyroxine Sodium (Synthroid) 50 mcg DAILY06 PO Last administered on 06:13; Start 05/24/18 at 09:30 Amylase/Lipase/ Protease (Zenpep 5,000) 1 cap TIDWMEALS PO Last administered on 05/26/18 09:01; Start 05/24/18 at 09:30 Pantoprazole Sodium (Protonix) 40 mg DAILYAC PO Last administered on 2/28/19at 09:37; Start 05/24/18 at 09:30; Stop 05/24/18 at 14:12; Status DC Ondansetron HCl (Zofran) 4 mg PRN Q4HRS PRN IV NAUSEA/VOMITING 1st choice Last administered on 05/25/18at 15:05; Start 05/24/18 at 09:00 Prochlorperazine Edisylate (Compazine) 10 mg PRN Q8HRS PRN IV NAUSEA/VOMITING 2ND CHOICE Last administered on 05/24/18at 20:30; Start 05/24/18 at 10:30 Hydralazine HCl (Apresoline Inj) 10 mg PRN Q4HRS PRN IVP ELEVATED BP, SEE COMMENTS Last administered on 05/24/18at 14:54; Start 05/24/18 at 11:15; Stop at 16:32; Status DC Pantoprazole Sodium (PROTONIX VIAL for IV PUSH) 40 mg DAILYAC IVP Last administered on 05/24/18at 18:32; Start 05/24/18 at 18:30; Stop 05/25/18 at 08:23 ; Status DC Lidocaine HCl (Viscous Lidocaine) 15 ml PRN Q4HRS PRN SWSW chest/abd pain; Start 05/24/18 at 15:30 Hydralazine HCl (Apresoline Inj) 20 mg PRN Q6HRS PRN IVP ELEVATED BP, SEE COMMENTS Last administered on 05/25/18at 10:01; Start 05/24/18 at 16:45 Nicardipine HCl 50 mg/Sodium Chloride 250 ml @ 20 mls/hr CONT PRN IV SEE I/O RECORD; Start 05/24/18 at 18:45 Zolpidem Tartrate (Ambien) 5 mg PRN QHS PRN PO INSOMNIA; Start 05/24/18 at 20: 15 Pantoprazole Sodium (Protonix) 40 mg DAILYAC PO Last administered on 05/25/18at 08:48; Start 05/25/18 at 09:00; Stop 05/25/18 at 09:47; Status DC Fentanyl Citrate (Fentanyl 2ml Vial) 50 mcg PRN Q2HR PRN IV PAIN Last administered on 05/25/18at 21:30; Start 05/25/18 at 09:30; Stop 05/25/18 at 23:15; Status DC Oxycodone/ Acetaminophen (Percocet 5/325) 1 tab PRN Q4HRS PRN PO PAIN Last administered on 05/26/18at 10:21; Start 05/25/18 at 09:30 Pantoprazole Sodium (Protonix) 40 mg BIDAC PO Last administered on 05/26/18at 09: 01; Start 05/25/18 at 16:30 Lisinopril (Prinivil) 20 mg DAILY PO Last administered on 05/26/18at 09:01; Start 05/25/18 at 12:00 Sodium Chloride 1,000 ml @ 1,000 mls/hr Q1H PRN IV hypotension; Start 05/25/18 at 13:33; Stop 05/25/18 at 19:32; Status DC Sodium Chloride 1,000 ml @ 400 mls/hr Q2H30M PRN IV PATENCY; Start 05/25/18 at 13:33; Stop 05/26/18 at 01:32; Status DC Info (PHARMACY MONITORING -- do not chart) 1 each PRN DAILY PRN MC SEE COMMENTS ; Start 05/25/18 at 13:45 Fentanyl Citrate (Fentanyl 2ml Vial) 50 mcg PRN Q3HRS PRN IV SEVERE PAIN Last administered on 05/26/18at 10:22; Start 05/25/18 at 23:15 Active Scripts Active Alprazolam 0.5 Mg Tablet 0.5 Mg PO PRN TID PRN MDD 1 [Pantoprazole] 40 MG Tablet. 40 Mg PO DAILYAC 30 Days Reported Coreg (Carvedilol) 6.25 Mg Tablet 6.25 Mg PO BIDWMELORENA Frey Dr 6,000 Units Capsule (Lipase/Protease/Amylase) 1 Each Capsule. 1 Tab PO TID Proair Hfa (Albuterol Sulfate) 8.5 Gm Hfa.aer.ad 2 Puff INH BID PRN Levothyroxine Sodium 50 Mcg Tablet 1 Tab PO DAILY Clonidine Tts-2 (Clonidine) 1 Each Patch.tdwk 1 Patch TD WEEKLY Novolog Flexpen (Insulin Aspart) 100 Unit/1 Ml Insuln.pen 25 Unit SQ TIDAC Amlodipine Besylate 5 Mg Tablet 10 Mg PO DAILY Atorvastatin Calcium 40 Mg Tablet 40 Mg PO HS Latanoprost 2.5 Ml Drops 1 Drop EACHEYE HS Vitals/I & O Vital Sign - Last 24 Hours 05/25/18 05/25/18 05/25/18 05/25/18 15:11 16:25 16:26 18:42 Pulse 96 Resp 18 18 16 B/P (MAP) 161/68 O2 Delivery Room Air Room Air Room Air 05/25/18 05/25/18 05/25/18 05/25/18 18:48 19:37 20:36 21:30 Temp 97.9 97.9 Pulse 88 Resp 16 16 B/P (MAP) 115/59 (77) O2 Delivery Room Air Room Air Room Air O2 Flow Rate 93.0 05/25/18 05/25/18 05/26/18 05/26/18 22:02 23:30 00:37 01:40 Resp 16 18 16 18 O2 Delivery Room Air Room Air Room Air Room Air 05/26/18 05/26/18 05/26/18 05/26/18 03:50 04:30 06:14 07:00 Temp 97.8 97.8 Pulse 70 Resp 16 16 18 18 B/P (MAP) 142/64 (90) Pulse Ox 93 O2 Delivery Room Air Room Air Room Air Room Air 05/26/18 05/26/18 05/26/18 05/26/18 08:15 09:01 09:01 09:01 Pulse 75 75 75 O2 Delivery Room Air 05/26/18 11:00 Pulse 71 Resp 18 B/P (MAP) 137/60 (85) O2 Delivery Room Air Intake and Output 05/25/18 05/25/18 05/26/18 15:00 23:00 07:00 Intake Total 250 ml 350 ml Output Total 0 ml Balance 250 ml 350 ml Nutrition Consultation Dietary Evaluation: Recommendations by RD: Increase Calorie Intake, Protein supplementation Comments: Advance diet as able to renal/ADA REC Nepro TID Expected Outcomes/Goals: PO intake to meet >75% est needs Interpretation of weight loss: >5% in 1 month Malnutrition Findings: Food and Nutrition Intake (Mod: <75% est energy req 7days Weight Status: Appropriate ANGELINA GOMEZ III DO May 26, 2018 11:59
[2018-05-26] MEDS: SERTRALINE 50 MG TABLET. PO SCH (13:25)
[2018-05-26] MEDS: ALPRAZolam 0.5 MG TABLET PO PRN ×2 (13:25→22:42)
[2018-05-26 15:00] VITALS: BP 145/65
--- NOTE | 2018-05-26 18:20 | NUR ---
Nursing; Patient frequently calling nursing station saying "pain meds" patient reminded next time pain medications could be administered and pain management plan. Next dose available time for pain medication on marker board. Patient said "give me my pain meds.. my back hurts so bad.. why are you making me wait..." Patients diet advanced from full liquid to a renal diet. Patient requested baked chicken and mashed potatoes for dinner. The diner arrived and the patient changed her mind and asked for chicken strips and slovak fries. the next dinner tray arrived and she refused it and asked for a sandwich. She then called and cussed at the kitchen staff over the phone. Security was called by the charge nurse.
[2018-05-26 19:40] VITALS: BP 132/66
[2018-05-26] MEDS: ATORVASTATIN CALCIUM 40 MG TABLET. PO SCH (19:46)
[2018-05-26] MEDS: LATANOPROST 0.005% OPHTH SOLUTION 2.5ML BOTTLE. OU SCH (20:11)
[2018-05-26 22:30] VITALS: BP 131/68
[2018-05-27] MEDS ORDERED: LOPERAMIDE 2 MG CAPSULE PO PRN (01:15)
[2018-05-27] MEDS: fentaNYL PF VIAL 100 MCG/2 ML VIAL IV PRN ×4 (01:56→11:21)
[2018-05-27 02:02] VITALS: BP 146/68
[2018-05-27] MEDS: oxyCODONE/APAP 5/325 1 TAB TABLET PO PRN ×2 (04:05→08:11)
[2018-05-27] MEDS: LEVOTHYROXINE 50 MCG TABLET PO SCH (05:02)
[2018-05-27 07:00] VITALS: BP 154/70
[2018-05-27] MEDS ORDERED: SERT50TA PO (07:49)
[2018-05-27] MEDS ORDERED: LISI-334 PO (07:49)
[2018-05-27] MEDS: CARVEDILOL 6.25 MG TABLET. PO SCH (08:10)
[2018-05-27] MEDS: PANTOPRAZOLE 40 MG TABLET.DR. PO SCH (08:10)
[2018-05-27] MEDS: SERTRALINE 50 MG TABLET. PO SCH (08:11)
[2018-05-27] MEDS: LISINOPRIL 20 MG TABLET PO SCH (08:11)
[2018-05-27] MEDS: ALPRAZolam 0.5 MG TABLET PO PRN (08:11)
[2018-05-27] MEDS: amLODIPine BESYLATE 5 MG TABLET PO SCH (08:13)
[2018-05-27] MEDS ORDERED: OXYC1TAB15 PO (11:24)
--- NOTE | 2018-05-27 12:18 | NUR ---
Discharge Note: OTTONIEL SMITH [address] Discharge instructions and discharge home medications reviewed with Patient and a copy given. All questions have been answered and understanding verbalized. 3 written prescriptions given to patient The following instructions and handouts were given: medication, follow-up, nausea, hypertension, dialysis diet, ect. Discontinued lines and drains: IV right upper arm. Dialysis cath l chest in place Patient discharged to Home with Self Care accompanied by daughter via wheelchair
--- NOTE | 2018-05-27 13:23 | PDOC ---
PROGRESS NOTES Chief Complaint Chief Complaint Intractable abdominal pain, likely peptic ulcer disease Intractable nausea and vomiting Mildly elevated troponin Hypertensive urgency End-stage renal disease on hemodialysis History of COPD History of non compliance Diabetes mellitus type 2 History of Present Illness History of Present Illness Patient was seen and examined in her room this morning. She was lying in bed. GI following for abdominal pain, nausea, and vomiting. Today she is ready to leave. She still complains of back pain. Will write script for Percocet at D/C. DW her RN. Vitals Vitals Vital Signs Date Time Temp Pulse Resp B/P (MAP) Pulse Ox O2 Delivery O2 Flow Rate FiO2 05/27/18 08:15 Room Air 05/27/18 08:13 70 05/27/18 07:00 154/70 (98) 05/27/18 05:33 18 95 05/27/18 02:02 97.0 97.0 Physical Exam General: Alert, Oriented X3, Cooperative, No acute distress Heart: Regular rate, Normal S1, Normal S2 Lungs: Clear, Other (no rhonchi) Abdomen: Soft, No tenderness Extremities: No clubbing, No cyanosis, No edema Skin: No rashes, No breakdown Labs LABS Laboratory Tests Test 05/27/18 05:50 Glucose (Fingerstick) 99 mg/dL (70-99) Review of Systems Review of Systems Gen: denies fever, chills Heart: denies CP, palp Lung: denies cough, SOA Abd: denies N/V/D, back pain Assessment and Plan Assessmemt and Plan Assessment: Intractable abdominal pain, likely peptic ulcer disease Intractable nausea and vomiting Mildly elevated troponin Hypertensive urgency End-stage renal disease on hemodialysis History of COPD History of non compliance Diabetes mellitus type 2 Plan: 1. Cardiac monitoring 2. Hemodialysis MWF 3. IV Protonix 4. Awaiting palliative care input 5. Sliding scale insulin 6: Zoloft 50mg qd 7. Monitor labs 8. Home meds 9. PT/OT 10. DVT prophylaxis 11. Appreciate subspecialty input D/C today to home if okay by subspecialist Comment Review of Relevant I have reviewed the following items pamela (where applicable) has been applied. Labs Laboratory Tests Test 05/25/18 16:50 05/25/18 20:27 05/26/18 08:03 05/26/18 09:15 Glucose (Fingerstick) 97 mg/dL (70-99) 129 mg/dL (70-99) 113 mg/dL (70-99) White Blood Count 9.0 x10^3/uL (4.0-11.0) Red Blood Count 3.26 x10^6/uL (3.50-5.40) Hemoglobin 9.5 g/dL (12.0-15.5) Hematocrit 29.2 % (36.0-47.0) Mean Corpuscular Volume 90 fL (79-100) Mean Corpuscular Hemoglobin 29 pg (25-35) Mean Corpuscular Hemoglobin Concent 32 g/dL (31-37) Red Cell Distribution Width 19.8 % (11.5-14.5) Platelet Count 220 x10^3/uL (140-400) Neutrophils (%) (Auto) 63 % (31-73) Lymphocytes (%) (Auto) 25 % (24-48) Monocytes (%) (Auto) 11 % (0-9) Eosinophils (%) (Auto) 0 % (0-3) Basophils (%) (Auto) 1 % (0-3) Neutrophils # (Auto) 5.7 x10^3uL (1.8-7.7) Lymphocytes # (Auto) 2.2 x10^3/uL (1.0-4.8) Monocytes # (Auto) 1.0 x10^3/uL (0.0-1.1) Eosinophils # (Auto) 0.0 x10^3/uL (0.0-0.7) Basophils # (Auto) 0.1 x10^3/uL (0.0-0.2) Sodium Level 138 mmol/L (136-145) Potassium Level 3.9 mmol/L (3.5-5.1) Chloride Level 99 mmol/L (98-107) Carbon Dioxide Level 32 mmol/L (21-32) Anion Gap 7 (6-14) Blood Urea Nitrogen 15 mg/dL (7-20) Creatinine 4.6 mg/dL (0.6-1.0) Estimated GFR (Cockcroft-Gault) 12.0 BUN/Creatinine Ratio 3 (6-20) Glucose Level 122 mg/dL (70-99) Calcium Level 8.3 mg/dL (8.5-10.1) Total Bilirubin 0.5 mg/dL (0.2-1.0) Aspartate Amino Transf (AST/SGOT) 20 U/L (15-37) Alanine Aminotransferase (ALT/SGPT) 12 U/L (14-59) Alkaline Phosphatase 61 U/L (46-116) Total Protein 5.7 g/dL (6.4-8.2) Albumin 2.5 g/dL (3.4-5.0) Albumin/Globulin Ratio 0.8 (1.0-1.7) Test 05/27/18 05:50 Glucose (Fingerstick) 99 mg/dL (70-99) Laboratory Tests Test 05/27/18 05:50 Glucose (Fingerstick) 99 mg/dL (70-99) Medications Current Medications Fentanyl Citrate (Fentanyl 2ml Vial) 50 mcg PRN Q15MIN PRN IV PAIN GREATER THAN 3/10 Last administered on 05/24/18 05:21; Start 05/23/18 at 23:45; Stop at 23:44; Status DC Ondansetron HCl (Zofran) 4 mg 1X ONCE IV Last administered on 05/24/18at 00:12 ; Start 05/24/18 at 00:00; Stop 05/24/18 at 00:01; Status DC Labetalol HCl (Normodyne Iv Push) 20 mg 1X ONCE IVP Last administered on at 00:12; Start 05/24/18 at 00:00; Stop 05/24/18 at 00:01; Status DC Ondansetron HCl (Zofran) 4 mg 1X ONCE IV Last administered on 05/24/18at 01:49 ; Start 05/24/18 at 02:00; Stop 05/24/18 at 02:01; Status DC Labetalol HCl (Normodyne Iv Push) 20 mg 1X ONCE IVP Last administered on at 01:50; Start 05/24/18 at 02:00; Stop 05/24/18 at 02:01; Status DC Ondansetron HCl (Zofran) 4 mg PRN Q8HRS PRN IV NAUSEA/VOMITING 1st choice Last administered on 05/24/18at 05:16; Start 05/24/18 at 01:45; Stop 05/24/18 at 08:58 ; Status DC Fentanyl Citrate (Fentanyl 2ml Vial) 50 mcg PRN Q1HR PRN IV SEVERE PAIN Last administered on 05/24/18at 23:58; Start 05/24/18 at 01:45; Stop 05/25/18 at 01:44 ; Status DC Nitroglycerin (Nitrostat) 0.4 mg PRN Q5MIN PRN SL CHEST PAIN Last administered on 05/24/18at 18:20; Start 05/24/18 at 01:45; Stop 05/25/18 at 01:44; Status DC Labetalol HCl (Normodyne Iv Push) 20 mg PRN Q4HRS PRN IVP SBP>170 Last administered on 05/24/18at 14:56; Start 05/24/18 at 02:00; Stop 05/27/18 at 13:01 ; Status DC Albuterol Sulfate (Ventolin Neb Soln) 2.5 mg PRN BID PRN INH SHORTNESS OF BREATH; Start 05/24/18 at 09:00; Stop 05/27/18 at 13:01; Status DC Alprazolam (Xanax) 0.5 mg PRN TID PRN PO ANXIETY / AGITATION Last administered on 05/27/18 08:11; Start 05/24/18 at 09:00; Stop 05/27/18 at 13:01; Status DC Amlodipine Besylate (Norvasc) 10 mg DAILY PO Last administered on 05/27/18 08: 13; Start 05/24/18 at 09:30; Stop 05/27/18 at 13:01; Status DC Atorvastatin Calcium (Lipitor) 40 mg HS PO Last administered on 05/26/18 19:46 ; Start 05/24/18 at 21:00; Stop 05/27/18 at 13:01; Status DC Carvedilol (Coreg) 6.25 mg BIDWMEALS PO Last administered on 05/27/18 08:10; Start 05/24/18 at 09:30; Stop 05/27/18 at 13:01; Status DC Clonidine HCl (Catapres Tts-2) 1 patch WEEKLY TD Last administered on 09:36; Start 05/24/18 at 09:30; Stop 05/27/18 at 13:01; Status DC Insulin Human Lispro (HumaLOG) 25 units TIDWMEALS SQ Last administered on 18:05; Start 05/24/18 at 09:30; Stop 05/26/18 at 11:55; Status DC Latanoprost (Xalatan) 1 drop QHS OU Last administered on 05/25/18 20:36; Start 05/24/18 at 21:00; Stop 05/27/18 at 13:01; Status DC Levothyroxine Sodium (Synthroid) 50 mcg DAILY06 PO Last administered on 05:02; Start 05/24/18 at 09:30; Stop 05/27/18 at 13:01; Status DC Amylase/Lipase/ Protease (Zenpep 5,000) 1 cap TIDWMEALS PO Last administered on 05/27/18 08:10; Start 05/24/18 at 09:30; Stop 05/27/18 at 13:01; Status DC Pantoprazole Sodium (Protonix) 40 mg DAILYAC PO Last administered on 05/24/18 09:37; Start 05/24/18 at 09:30; Stop 05/24/18 at 14:12; Status DC Ondansetron HCl (Zofran) 4 mg PRN Q4HRS PRN IV NAUSEA/VOMITING 1st choice Last administered on 05/25/18 15:05; Start 05/24/18 at 09:00; Stop 05/27/18 at 13:01; Status DC Prochlorperazine Edisylate (Compazine) 10 mg PRN Q8HRS PRN IV NAUSEA/VOMITING 2ND CHOICE Last administered on 05/24/18at 20:30; Start 05/24/18 at 10:30; Stop 05/27/18 at 13:01; Status DC Hydralazine HCl (Apresoline Inj) 10 mg PRN Q4HRS PRN IVP ELEVATED BP, SEE COMMENTS Last administered on 05/24/18at 14:54; Start 05/24/18 at 11:15; Stop at 16:32; Status DC Pantoprazole Sodium (PROTONIX VIAL for IV PUSH) 40 mg DAILYAC IVP Last administered on 05/24/18at 18:32; Start 05/24/18 at 18:30; Stop 05/25/18 at 08:23 ; Status DC Lidocaine HCl (Viscous Lidocaine) 15 ml PRN Q4HRS PRN SWSW chest/abd pain; Start 05/24/18 at 15:30; Stop 05/27/18 at 13:01; Status DC Hydralazine HCl (Apresoline Inj) 20 mg PRN Q6HRS PRN IVP ELEVATED BP, SEE COMMENTS Last administered on 05/25/18at 10:01; Start 05/24/18 at 16:45; Stop 05/27 at 13:01; Status DC Nicardipine HCl 50 mg/Sodium Chloride 250 ml @ 20 mls/hr CONT PRN IV SEE I/O RECORD; Start 05/24/18 at 18:45; Stop 05/27/18 at 13:01; Status DC Zolpidem Tartrate (Ambien) 5 mg PRN QHS PRN PO INSOMNIA; Start 05/24/18 at 20: 15; Stop 05/27/18 at 13:01; Status DC Pantoprazole Sodium (Protonix) 40 mg DAILYAC PO Last administered on 05/25/18at 08:48; Start 05/25/18 at 09:00; Stop 05/25/18 at 09:47; Status DC Fentanyl Citrate (Fentanyl 2ml Vial) 50 mcg PRN Q2HR PRN IV PAIN Last administered on 05/25/18at 21:30; Start 05/25/18 at 09:30; Stop 05/25/18 at 23:15; Status DC Oxycodone/ Acetaminophen (Percocet 5/325) 1 tab PRN Q4HRS PRN PO PAIN Last administered on 05/27/18at 08:11; Start 05/25/18 at 09:30; Stop 05/27/18 at 13:01; Status DC Pantoprazole Sodium (Protonix) 40 mg BIDAC PO Last administered on 05/27/18at 08: 10; Start 05/25/18 at 16:30; Stop 05/27/18 at 13:01; Status DC Lisinopril (Prinivil) 20 mg DAILY PO Last administered on 05/27/18at 08:11; Start 05/25/18 at 12:00; Stop 05/27/18 at 13:01; Status DC Sodium Chloride 1,000 ml @ 1,000 mls/hr Q1H PRN IV hypotension; Start 05/25/18 at 13:33; Stop 05/25/18 at 19:32; Status DC Sodium Chloride 1,000 ml @ 400 mls/hr Q2H30M PRN IV PATENCY; Start 05/25/18 at 13:33; Stop 05/26/18 at 01:32; Status DC Info (PHARMACY MONITORING -- do not chart) 1 each PRN DAILY PRN MC SEE COMMENTS ; Start 05/25/18 at 13:45; Stop 05/27/18 at 13:01; Status DC Fentanyl Citrate (Fentanyl 2ml Vial) 50 mcg PRN Q3HRS PRN IV SEVERE PAIN Last administered on 05/27/18at 11:21; Start 05/25/18 at 23:15; Stop 05/27/18 at 13:01; Status DC Sertraline HCl (Zoloft) 50 mg DAILY PO Last administered on 05/27/18at 08:11; Start 05/26/18 at 13:00; Stop 05/27/18 at 13:01; Status DC Loperamide HCl (Imodium) 2 mg PRN Q4HRS PRN PO DIARRHEA Last administered on 05/27/18at 01:56; Start 05/27/18 at 01:15; Stop 05/27/18 at 13:01; Status DC Active Scripts Active Alprazolam 0.5 Mg Tablet 0.5 Mg PO PRN TID PRN MDD 1 [Pantoprazole] 40 MG Tablet.dr 40 Mg PO DAILYAC 30 Days Reported Percocet 5-325 Mg Tablet (Oxycodone/Acetaminophen) 1 Each Tablet 1 Tab PO Q4HRS PRN Zoloft (Sertraline Hcl) 50 Mg Tablet 50 Mg PO DAILY Lisinopril 20 Mg Tablet 20 Mg PO DAILY Coreg (Carvedilol) 6.25 Mg Tablet 6.25 Mg PO BIDWMEALS Creon 6,000 Units Capsule (Lipase/Protease/Amylase) 1 Each Capsule. 1 Tab PO TID Proair Hfa (Albuterol Sulfate) 8.5 Gm Hfa.aer.ad 2 Puff INH BID PRN Levothyroxine Sodium 50 Mcg Tablet 1 Tab PO DAILY Clonidine Tts-2 (Clonidine) 1 Each Patch.tdwk 1 Patch TD WEEKLY Amlodipine Besylate 5 Mg Tablet 10 Mg PO DAILY Atorvastatin Calcium 40 Mg Tablet 40 Mg PO HS Latanoprost 2.5 Ml Drops 1 Drop EACHEYE HS Vitals/I & O Vital Sign - Last 24 Hours 05/26/18 05/26/18 05/26/18 05/26/18 15:00 16:36 19:40 19:45 Temp 97.5 97.0 97.5 97.0 Pulse 69 75 70 Resp 18 18 18 B/P (MAP) 145/65 (91) 132/66 (88) Pulse Ox 96 96 O2 Delivery Room Air Room Air Room Air 05/26/18 05/26/18 05/26/18 05/26/18 19:46 20:00 22:30 22:43 Temp 98.6 98.6 Pulse 72 Resp 18 20 20 B/P (MAP) 131/68 (89) Pulse Ox 93 97 93 O2 Delivery Room Air Room Air Room Air Room Air 05/26/18 05/27/18 05/27/18 05/27/18 23:50 01:56 02:02 04:05 Temp 97.0 97.0 Pulse 72 Resp 20 20 18 18 B/P (MAP) 146/68 (94) Pulse Ox 93 93 95 95 O2 Delivery Room Air Room Air Room Air Room Air 05/27/18 05/27/18 05/27/18 05/27/18 05:03 05:05 05:33 07:00 Pulse 65 Resp 18 18 18 B/P (MAP) 154/70 (98) Pulse Ox 95 95 95 O2 Delivery Room Air Room Air Room Air 05/27/18 05/27/18 05/27/18 05/27/18 08:10 08:11 08:13 08:15 Pulse 70 70 70 O2 Delivery Room Air Intake and Output 05/26/18 05/26/18 05/27/18 14:59 22:59 06:59 Intake Total 240 ml 600 ml 350 ml Balance 240 ml 600 ml 350 ml Nutrition Consultation Dietary Evaluation: Recommendations by RD: Increase Calorie Intake, Protein supplementation Comments: Advance diet as able to renal/ADA REC Nepro TID Expected Outcomes/Goals: PO intake to meet >75% est needs Interpretation of weight loss: >5% in 1 month Malnutrition Findings: Food and Nutrition Intake (Mod: <75% est energy req 7days Weight Status: Appropriate ANGELINA GOMEZ III DO May 27, 2018 13:23
--- NOTE | 2018-05-27 15:01 | DS ---
DATE OF DISCHARGE: 05/27/2018 CHIEF COMPLAINT: Chest pain, hypertensive urgency, end-stage renal disease, narcotic dependence, depression and anxiety. DISCHARGE DIAGNOSES: 1. Resolving atypical chest pain. 2. Resolving hypertensive urgency, chronic noncompliance. 3. Chronic narcotic dependence. 4. End-stage renal disease. HOSPITAL COURSE: The patient is a pleasant 57-year-old female well known to our service. She gets admitted periodically mainly because of pain and she really wants narcotics. I suspect she is dependent on them. She has been on them for years. Once again we admitted her. We did cardiac monitoring, consulted Cardiology and Nephrology. Over the past few days, she has returned to her baseline. I saw her and examined this morning. Heart tones were normal. Lungs were clear. We plan to discharge. I did give her a prescription for some Percocet. DISPOSITION: Home. ACTIVITY: As tolerated. DIET: Renal. MEDICATIONS: Please see the MRAD. TOTAL TIME: 32 minutes. ANGELINA GOMEZ DO DR: BRANDIN/franny JOB#: [id number] / [id number]
[2018-07-11] MEDS ORDERED: HYDR-2761 PO (13:16)
== END 2018-05-27 12:25 | disposition home or self-care (01) | DRG 304 ==
LOC: ER 23:25 → 2 SOUTH 05-24 01:39
PROVIDERS: ADMIT Internal Medicine; ATTEND Internal Medicine
PROC: 5A1D70Z Performance of Urinary Filtration, Intermittent, Less than 6 Hours Per Day (ICD-10-PCS; principal; 2018-05-25)
DX: I16.0 Hypertensive urgency (principal); N18.6 End stage renal disease; F11.20 Opioid dependence, uncomplicated; I50.32 Chronic diastolic (congestive) heart failure; I24.8 Other forms of acute ischemic heart disease; I13.2 Hypertensive heart and chronic kidney disease with heart failure and with stage 5 chronic kidney disease, or end stage renal disease; K21.9 Gastro-esophageal reflux disease without esophagitis; D64.9 Anemia, unspecified; E03.9 Hypothyroidism, unspecified; E11.22 Type 2 diabetes mellitus with diabetic chronic kidney disease; E11.36 Type 2 diabetes mellitus with diabetic cataract; E78.5 Hyperlipidemia, unspecified; E87.6 Hypokalemia; F17.210 Nicotine dependence, cigarettes, uncomplicated; F32.9 Major depressive disorder, single episode, unspecified; F41.9 Anxiety disorder, unspecified; G43.A0 Cyclical vomiting, in migraine, not intractable; H40.9 Unspecified glaucoma; I15.8 Other secondary hypertension; J44.9 Chronic obstructive pulmonary disease, unspecified; M79.7 Fibromyalgia; R13.10 Dysphagia, unspecified; Z90.49 Acquired absence of other specified parts of digestive tract; Z90.710 Acquired absence of both cervix and uterus; Z91.14 Patient's other noncompliance with medication regimen; Z91.15 Patient's noncompliance with renal dialysis; Z91.19 Patient's noncompliance with other medical treatment and regimen; Z99.2 Dependence on renal dialysis; E21.3 Hyperparathyroidism, unspecified
CPT/HCPCS: 36415; 71045; 80048; 80053; 80307; 82962; 83690; 83735; 84100; 84484; 85007; 85025; 87804; 93005; 96374; 96375; 96376; C9113; J0360; J0780; J1815; J2405; J3010; J3490; 97530; 97535; 99285-25

== ENCOUNTER 2018-06-07 02:52 | Emergency (ER) | payer OTHER ==
[~2018-06-07] VITALS: Ht 162.6 cm; Wt 51.7 kg
[~2018-06-07 02:52] MED LIST changes: +LISI-334 PO; +OXYC1TAB15 PO; +SERT50TA PO
[2018-06-07 03:20] VITALS: BP 154/70
[2018-06-07 03:28] LABS: BASO # 0.1 x10^3/uL (0.0-0.2); BASO % 1 % (0-3); EOS # 0.1 x10^3/uL (0.0-0.7); EOS % 1 % (0-3); HEMATOCRIT 30.6 % (36.0-47.0); HEMOGLOBIN 10.1 g/dL (12.0-15.5); LYMPH # 2.2 x10^3/uL (1.0-4.8); LYMPH % 16 % (24-48); MEAN CORPUSCULAR HEMOGLOBIN 29 pg (25-35); MEAN CORPUSCULAR HGB CONC 33 g/dL (31-37); MEAN CORPUSCULAR VOLUME 89 fL (79-100); MONO # 0.9 x10^3/uL (0.0-1.1); MONO % 7 % (0-9); NEUT # 10.5 x10^3uL (1.8-7.7); NEUT % 76 % (31-73); PLATELET COUNT 332 x10^3/uL (140-400); RED BLOOD COUNT 3.44 x10^6/uL (3.50-5.40); RED CELL DISTRIBUTION WIDTH 19.5 % (11.5-14.5); WHITE BLOOD COUNT 13.9 x10^3/uL (4.0-11.0)
[2018-06-07 03:46] LABS: CALCIUM 8.5 mg/dL (8.5-10.1); GFR 6.3; POTASSIUM 3.9 mmol/L (3.5-5.1)
[2018-06-07 03:52] LABS: ALBUMIN 2.7 g/dL (3.4-5.0); ALBUMIN/GLOBULIN RATIO 0.7 (1.0-1.7); MAGNESIUM 2.3 mg/dL (1.8-2.4); PHOSPHORUS 8.8 mg/dL (2.6-4.7); TOTAL BILIRUBIN 0.3 mg/dL (0.2-1.0); TOTAL PROTEIN 6.5 g/dL (6.4-8.2)
--- NOTE | 2018-06-07 04:34 | PHYS DOC ---
Past Medical History Past Medical History: Diabetes-Type II, Glaucoma, Hypertension, Hypothyroid, Renal Disease, Renal Failure, Other Additional Past Medical Histor: neuropathy, cataracts,CHRONIC PAIN,ESRD Past Surgical History: Hysterectomy, Other Additional Past Surgical Histo: PT POOR HISTORIAN,DIALYSIS CATHETER L. CHEST Alcohol Use: None Drug Use: None Adult General Chief Complaint Chief Complaint: GENERALIZED BODY ACHES HPI HPI Patient is a 58-year-old female who presents with complaint that she had missed her dialysis yesterday and is not feeling good. She does complain of pain around her dialysis catheter. She denies any nausea or vomiting. She does admit to back pain as well and admits that that is chronic. Additional history is limited as patient is not very cooperative and is overtly aggressive towards medical staff, signaling with her middle finger to the charge nurse. Review of Systems Review of Systems Constitutional: Denies fever or chills [] Respiratory: Denies cough or shortness of breath [] Cardiovascular: No additional information not addressed in HPI [] GI: Denies vomiting or diarrhea [] Musculoskeletal: Complains of back pain [] Unable to fully assess review of systems as patient is not cooperative with history. Allergies Allergies Allergies Coded Allergies Type Severity Reaction Last Updated Verified morphine Allergy Intermediate Itching 03/27/18 Yes Physical Exam Physical Exam Constitutional: Well developed, well nourished, no acute distress, non-toxic appearance. [] HENT: Normocephalic, atraumatic, bilateral external ears normal, oropharynx moist, no oral exudates, nose normal. [] Eyes: PERRLA, EOMI, conjunctiva normal, no discharge. [] Neck: Normal range of motion, no tenderness, supple, no stridor. [] Cardiovascular: Regular rate and rhythm[] Lungs & Thorax: Bilateral breath sounds clear to auscultation [] Abdomen: Bowel sounds normal, soft, no tenderness. [] Skin: Warm, dry, no erythema, no rash. [] Extremities: No tenderness, no cyanosis, no clubbing, ROM intact. [] Neurologic: Alert and oriented X 3, no focal deficits noted. [] Current Patient Data Vital Signs Vital Signs Date Time Temp Pulse Resp B/P (MAP) Pulse Ox O2 Delivery O2 Flow Rate FiO2 06/07/18 03:20 98.6 78 20 154/70 (98) 100 Room Air 98.6 Lab Values Laboratory Tests Test 3/14/19 03:00 White Blood Count 13.9 x10^3/uL (4.0-11.0) H Red Blood Count 3.44 x10^6/uL (3.50-5.40) L Hemoglobin 10.1 g/dL (12.0-15.5) L Hematocrit 30.6 % (36.0-47.0) L Mean Corpuscular Volume 89 fL (79-100) Mean Corpuscular Hemoglobin 29 pg (25-35) Mean Corpuscular Hemoglobin Concent 33 g/dL (31-37) Red Cell Distribution Width 19.5 % (11.5-14.5) H Platelet Count 332 x10^3/uL (140-400) Neutrophils (%) (Auto) 76 % (31-73) H Lymphocytes (%) (Auto) 16 % (24-48) L Monocytes (%) (Auto) 7 % (0-9) Eosinophils (%) (Auto) 1 % (0-3) Basophils (%) (Auto) 1 % (0-3) Neutrophils # (Auto) 10.5 x10^3uL (1.8-7.7) H Lymphocytes # (Auto) 2.2 x10^3/uL (1.0-4.8) Monocytes # (Auto) 0.9 x10^3/uL (0.0-1.1) Eosinophils # (Auto) 0.1 x10^3/uL (0.0-0.7) Basophils # (Auto) 0.1 x10^3/uL (0.0-0.2) Sodium Level 142 mmol/L (136-145) Potassium Level 3.9 mmol/L (3.5-5.1) Chloride Level 103 mmol/L (98-107) Carbon Dioxide Level 25 mmol/L (21-32) Anion Gap 14 (6-14) Blood Urea Nitrogen 61 mg/dL (7-20) H Creatinine 8.0 mg/dL (0.6-1.0) H Estimated GFR (Cockcroft-Gault) 6.3 BUN/Creatinine Ratio 8 (6-20) Glucose Level 160 mg/dL (70-99) H Calcium Level 8.5 mg/dL (8.5-10.1) Phosphorus Level 8.8 mg/dL (2.6-4.7) H Magnesium Level 2.3 mg/dL (1.8-2.4) Total Bilirubin 0.3 mg/dL (0.2-1.0) Aspartate Amino Transferase (AST) 27 U/L (15-37) Alanine Aminotransferase (ALT) 19 U/L (14-59) Alkaline Phosphatase 71 U/L (46-116) Total Protein 6.5 g/dL (6.4-8.2) Albumin 2.7 g/dL (3.4-5.0) L Albumin/Globulin Ratio 0.7 (1.0-1.7) L Laboratory Tests 06/07/18 03:00 Laboratory Tests 06/07/18 03:00 EKG EKG [] Interpretation Time: EKG demonstrates normal sinus rhythm with rate of 85. Radiology/Procedures Radiology/Procedures [] Course & Med Decision Making Course & Med Decision Making Pertinent Labs and Imaging studies reviewed. (See chart for details) [] Dragon Disclaimer Dragon Disclaimer This electronic medical record was generated, in whole or in part, using a voice recognition dictation system. Departure Departure Impression: Primary Impression: ESRD (end stage renal disease) on dialysis Additional Impressions: Back pain Chest wall pain Disposition: HOME, SELF-CARE Condition: STABLE Referrals: NO PCP (PCP) Patient Instructions: Chest Wall Pain, End Stage Kidney Disease Problem Qualifiers Additional Impressions: Back pain Back pain location: back pain in unspecified location Chronicity: chronic Back pain laterality: unspecified Qualified Codes: M54.9 - Dorsalgia, unspecified; G89.29 - Other chronic pain GIULIANO FAIRCHILD Jr. DO Jun 07, 2018 04:34
--- NOTE | 2018-06-07 04:41 | RAD ---
Indication:soa TECHNIQUE:Portable AP chest X-ray COMPARISON:05/23/2018 FINDINGS: Stable position of dialysis catheter. Heart is mildly enlarged in size. Prominent interstitial opacities are seen. No focal consolidation. No pneumothorax or pleural effusion. Visualized bony thorax within normal limits. IMPRESSION: Findings suggests mild interstitial pulmonary edema. Electronically signed by: Beau Moise DO (06/07/2018 4:38 AM) [id number]
--- NOTE | 2018-06-07 06:16 | EKG ---
[facility] [address] [place] [address] Test Date: 2018-06-07 Test Time: 03:35:41 Pat Name: OTTONIEL SMITH Department: Room: Gender: F Group Chief Operator: : 1960 Requested By: GIULIANO FAIRCHILD Order Number: [id number] Reading MD: Marbin Kennedy MD Measurements Intervals [place] Rate: 85 P: 57 RI: 156 QRS: 4 QRSD: 78 T: 156 QT: 392 QTc: 472 Interpretive Statements SR LVH Electronically Signed On 06-14-2018 9:53:50 CDT by Marbin Kennedy MD
[2018-07-11] MEDS ORDERED: HYDR-2761 PO (13:16)
== END 2018-06-07 04:40 | disposition home or self-care (01) ==
LOC: ER 02:52
DX: I12.0 Hypertensive chronic kidney disease with stage 5 chronic kidney disease or end stage renal disease (principal); E11.22 Type 2 diabetes mellitus with diabetic chronic kidney disease; E11.39 Type 2 diabetes mellitus with other diabetic ophthalmic complication; E11.40 Type 2 diabetes mellitus with diabetic neuropathy, unspecified; H42 Glaucoma in diseases classified elsewhere; N18.6 End stage renal disease; G89.29 Other chronic pain; R07.89 Other chest pain; M54.9 Dorsalgia, unspecified; Z90.710 Acquired absence of both cervix and uterus; Z88.5 Allergy status to narcotic agent
CPT/HCPCS: 36415; 71045; 80053; 83735; 84100; 85025; 93005; 99284-25

== ENCOUNTER 2018-06-30 08:45 | Emergency (ER) | payer OTHER ==
[~2018-06-30] VITALS: Ht 157.5 cm; Wt 51.7 kg
[2018-06-30] MEDS ORDERED: NITROGLYCERIN SUBLINGUAL 0.4 MG BOTTLE OF 25. SL PRN (09:15)
--- NOTE | 2018-06-30 09:22 | PHYS DOC ---
Past Medical History Past Medical History: Diabetes-Type II, Glaucoma, Hypertension, Hypothyroid, Renal Disease, Renal Failure, Other Additional Past Medical Histor: neuropathy, cataracts,CHRONIC PAIN,ESRD (JOAN CHACON APRN) Past Surgical History: Hysterectomy, Other Additional Past Surgical Histo: PT POOR HISTORIAN,DIALYSIS CATHETER L. CHEST (JOAN CHACON APRN) Alcohol Use: None Drug Use: None (JOAN CHACON APRN) Adult General Chief Complaint Chief Complaint: BACK PAIN - NO INJURY HPI HPI Patient is a 58 year old female with history of diabetes type 2, hypertension, end-stage renal disease on dialysis Monday, Monday, Monday, last dialyzed yesterday who presents today to the ED complaining of chronic low back pain. Patient is very rude, she is verbally aggressive. She will not give me much information. She has been listed at being manipulative especially in regards to narcotic medication request. She states she does not have anything for pain at home. (JOAN CHACON APRN) Review of Systems Review of Systems Constitutional: Denies fever or chills [] Eyes: Denies change in visual acuity, redness, or eye pain [] HENT: Denies nasal congestion or sore throat [] Respiratory: Denies cough or shortness of breath [] Cardiovascular: No additional information not addressed in HPI [] GI: Denies abdominal pain, nausea, vomiting, bloody stools or diarrhea [] : Denies dysuria or hematuria [] Musculoskeletal: Reports chronic back pain Integument: Denies rash or skin lesions [] Neurologic: Denies headache, focal weakness or sensory changes [] Endocrine: End-stage renal disease All other systems were reviewed and found to be within normal limits, except as documented in this note. (JOAN CHACON APRN) Current Medications Current Medications Current Medications Medications (Trade) Dose Ordered Sig/Clarence Start Time Stop Time Status Last Admin Dose Admin Aspirin (Molly Aspirin) 325 mg 1X ONCE 06/30/18 09:30 06/30/18 09:31 DC 06/30/18 09:44 325 MG Clonidine HCl (Catapres) 0.3 mg 1X ONCE 06/30/18 09:30 06/30/18 09:31 DC 06/30/18 09:44 0.3 MG Fentanyl (Duragesic 25mcg/ Hr Patch) 1 patch 1X ONCE 06/30/18 09:30 06/30/18 09:31 DC 06/30/18 09:43 1 PATCH Nitroglycerin (Nitrostat) 0.4 mg PRN Q5MIN PRN 06/30/18 09:15 06/30/18 11:08 DC Prochlorperazine Edisylate (Compazine) 10 mg 1X ONCE 06/30/18 09:30 06/30/18 09:31 DC 06/30/18 09:36 10 MG (KIMBERLY MONTERO MD) Allergies Allergies Allergies Coded Allergies Type Severity Reaction Last Updated Verified morphine Allergy Intermediate Itching 03/27/18 Yes (KIMBERLY MONTERO MD) Physical Exam Physical Exam Constitutional: Thin appearing, no acute distress, non-toxic appearance. [] HENT: Normocephalic, atraumatic, bilateral external ears normal, oropharynx moist, no oral exudates, nose normal. [] Eyes: PERRLA, EOMI, conjunctiva normal, no discharge. [] Neck: Normal range of motion, no tenderness, supple, no stridor. [] Cardiovascular: Dialysis catheter left upper chest. Heart rate regular rhythm, no murmur [] Lungs & Thorax: Bilateral breath sounds clear to auscultation [] Abdomen: Bowel sounds normal, soft, no tenderness, no masses, no pulsatile masses. [] Skin: Very dry skin Back: No tenderness, no CVA tenderness. [] Extremities: No tenderness, no cyanosis, no clubbing, ROM intact, no edema. [] Neurologic: Alert and oriented X 3, normal motor function, normal sensory function, no focal deficits noted. [] Psychologic: Affect normal, judgement normal, mood normal. [] (JOAN CHACON APRN) Current Patient Data Vital Signs Vital Signs Date Time Temp Pulse Resp B/P (MAP) Pulse Ox O2 Delivery O2 Flow Rate FiO2 06/30/18 10:30 104 182/87 (118) 100 Room Air 06/30/18 09:43 25 06/30/18 08:45 98.0 98.0 (KIMBERLY MONTERO MD) Lab Values Laboratory Tests Test 06/30/18 09:25 White Blood Count 10.3 x10^3/uL (4.0-11.0) Red Blood Count 4.68 x10^6/uL (3.50-5.40) Hemoglobin 13.7 g/dL (12.0-15.5) Hematocrit 41.6 % (36.0-47.0) Mean Corpuscular Volume 89 fL (79-100) Mean Corpuscular Hemoglobin 29 pg (25-35) Mean Corpuscular Hemoglobin Concent 33 g/dL (31-37) Red Cell Distribution Width 19.9 % (11.5-14.5) H Platelet Count 391 x10^3/uL (140-400) Neutrophils (%) (Auto) 87 % (31-73) H Lymphocytes (%) (Auto) 9 % (24-48) L Monocytes (%) (Auto) 4 % (0-9) Eosinophils (%) (Auto) 0 % (0-3) Basophils (%) (Auto) 1 % (0-3) Neutrophils # (Auto) 8.9 x10^3uL (1.8-7.7) H Lymphocytes # (Auto) 0.9 x10^3/uL (1.0-4.8) L Monocytes # (Auto) 0.4 x10^3/uL (0.0-1.1) Eosinophils # (Auto) 0.0 x10^3/uL (0.0-0.7) Basophils # (Auto) 0.1 x10^3/uL (0.0-0.2) Segmented Neutrophils % 83 % (35-66) H Band Neutrophils % 1 % (0-9) Lymphocytes % 13 % (24-48) L Monocytes % 2 % (0-10) Basophils % 1 % (0-3) Platelet Estimate Adequate (ADEQUATE) Anisocytosis Present Sodium Level 141 mmol/L (136-145) Potassium Level 3.9 mmol/L (3.5-5.1) Chloride Level 96 mmol/L (98-107) L Carbon Dioxide Level 30 mmol/L (21-32) Anion Gap 15 (6-14) H Blood Urea Nitrogen 31 mg/dL (7-20) H Creatinine 5.6 mg/dL (0.6-1.0) H Estimated GFR (Cockcroft-Gault) 9.5 BUN/Creatinine Ratio 6 (6-20) Glucose Level 181 mg/dL (70-99) H Calcium Level 9.9 mg/dL (8.5-10.1) Magnesium Level 2.4 mg/dL (1.8-2.4) Total Bilirubin 0.5 mg/dL (0.2-1.0) Aspartate Amino Transferase (AST) 32 U/L (15-37) Alanine Aminotransferase (ALT) 36 U/L (14-59) Alkaline Phosphatase 111 U/L (46-116) Troponin I Quantitative 0.161 ng/mL (0.000-0.055) Total Protein 7.9 g/dL (6.4-8.2) Albumin 4.0 g/dL (3.4-5.0) Albumin/Globulin Ratio 1.0 (1.0-1.7) Lipase 273 U/L (73-393) Laboratory Tests 06/30/18 09:25 Laboratory Tests 06/30/18 09:25 (KIMBERLY MONTERO MD) Lab Values Laboratory Tests Test 06/30/18 09:25 White Blood Count 10.3 x10^3/uL (4.0-11.0) Red Blood Count 4.68 x10^6/uL (3.50-5.40) Hemoglobin 13.7 g/dL (12.0-15.5) Hematocrit 41.6 % (36.0-47.0) Mean Corpuscular Volume 89 fL (79-100) Mean Corpuscular Hemoglobin 29 pg (25-35) Mean Corpuscular Hemoglobin Concent 33 g/dL (31-37) Red Cell Distribution Width 19.9 % (11.5-14.5) H Platelet Count 391 x10^3/uL (140-400) Neutrophils (%) (Auto) 87 % (31-73) H Lymphocytes (%) (Auto) 9 % (24-48) L Monocytes (%) (Auto) 4 % (0-9) Eosinophils (%) (Auto) 0 % (0-3) Basophils (%) (Auto) 1 % (0-3) Neutrophils # (Auto) 8.9 x10^3uL (1.8-7.7) H Lymphocytes # (Auto) 0.9 x10^3/uL (1.0-4.8) L Monocytes # (Auto) 0.4 x10^3/uL (0.0-1.1) Eosinophils # (Auto) 0.0 x10^3/uL (0.0-0.7) Basophils # (Auto) 0.1 x10^3/uL (0.0-0.2) Segmented Neutrophils % 83 % (35-66) H Band Neutrophils % 1 % (0-9) Lymphocytes % 13 % (24-48) L Monocytes % 2 % (0-10) Basophils % 1 % (0-3) Platelet Estimate Adequate (ADEQUATE) Anisocytosis Present Sodium Level 141 mmol/L (136-145) Potassium Level 3.9 mmol/L (3.5-5.1) Chloride Level 96 mmol/L (98-107) L Carbon Dioxide Level 30 mmol/L (21-32) Anion Gap 15 (6-14) H Blood Urea Nitrogen 31 mg/dL (7-20) H Creatinine 5.6 mg/dL (0.6-1.0) H Estimated GFR (Cockcroft-Gault) 9.5 BUN/Creatinine Ratio 6 (6-20) Glucose Level 181 mg/dL (70-99) H Calcium Level 9.9 mg/dL (8.5-10.1) Magnesium Level 2.4 mg/dL (1.8-2.4) Total Bilirubin 0.5 mg/dL (0.2-1.0) Aspartate Amino Transferase (AST) 32 U/L (15-37) Alanine Aminotransferase (ALT) 36 U/L (14-59) Alkaline Phosphatase 111 U/L (46-116) Troponin I Quantitative 0.161 ng/mL (0.000-0.055) Total Protein 7.9 g/dL (6.4-8.2) Albumin 4.0 g/dL (3.4-5.0) Albumin/Globulin Ratio 1.0 (1.0-1.7) Lipase 273 U/L (73-393) Laboratory Tests 06/30/18 09:25 Laboratory Tests 06/30/18 09:25 (JOAN CHACON APRN) EKG EKG 09:[address] Montero sinus tachycardia HR 111 no STEMI[] (JOAN CHACON APRN) Radiology/Procedures Radiology/Procedures []PROCEDURE: PORTABLE CHEST 1V AP view of the chest. Comparison: Chest radiograph dated 06/07/2018. Indication: CHEST PAIN, NAUSEA,VOMITING Findings: Unchanged left IJ dialysis catheter. Normal lung volume. No focal consolidation. Normal pulmonary vasculature. No pleural effusion or pneumothorax. Unchanged cardiomegaly. The great vessels of the thorax are unchanged. No acute osseous abnormality. IMPRESSION: 1. No focal consolidation. 2. Unchanged cardiomegaly. 3. Unchanged left IJ dialysis catheter. Electronically signed by: Levi Green MD (06/30/2018 9:44 AM) [facility] DICTATED and SIGNED BY: LEVI GREEN MD DATE: 06/30/18 0944 (JOAN CHACON APRN) Course & Med Decision Making Course & Med Decision Making Pertinent Labs and Imaging studies reviewed. (See chart for details) This is a 58-year-old female patient presenting to the ED today complaining of chronic low back pain. See history of present illness. This is a chronic condition for this patient. She is manipulative, very rude, will not giving us any information. Has been documented for her behavior multiple times. CBC with no acute findings, CMP with creatinine and BUN consistent with chronic renal failure. Troponin 0.161, patient has history of chronic troponin elevation since last year. She is aware. She states she does not have any pain right now. EKG was negative for STEMI. Blood pressures on arrival to the ED 210/ 110, patient has known history of hypertension. She states she believes she took her medications this morning. She was given 0.3 milligram of troponin. After long discussion about her pain management I offered her 25 g of fentanyl patch. I went back to reevaluate patient. She was very thankful. She states her pain is completely gone and she is comfortable and Sleep. Blood Pressure 182/87. She Currently Has No Other Complaints. I Discussed Her Elevated Troponin. Patient Is Stating She Knows Her Troponin Is Always High. She states she has a primary care doctor as well as a electric refrigerator preparer and customer solutions coordinator. I requested her to follow-up in the course of this coming week. She herself would like to go home. She was discharged. She states she read it produces urine. (JOAN CHACON APRN) Course & Med Decision Making Staff Physician Addendum: I was working in the ER during the course of this patient's visit. I was available for consultation as needed, but I was not directly involved in the care of this patient. (KIMBERLY MONTERO MD) Dragon Disclaimer Dragon Disclaimer This electronic medical record was generated, in whole or in part, using a voice recognition dictation system. (JOAN CHACON APRN) Departure Departure Impression: Primary Impression: ESRD (end stage renal disease) Additional Impressions: Elevated blood pressure reading Elevated troponin Disposition: HOME, SELF-CARE Condition: STABLE Referrals: NO PCP (PCP) Follow-up with your doctors next week Patient Instructions: Back Pain, Adult Additional Instructions: You were evaluated in the emergency room for chronic back pain. We gave you fentanyl patch, it's on your back. Please continue following up with the primary care doctor, electric refrigerator preparer, as well as customer solutions coordinator in the course of next week. Problem Qualifiers JOAN CHACON APRN Jun 30, 2018 09:22 KIMBERLY MONTERO MD Jul 07, 2018 18:03
[2018-06-30] MEDS ORDERED: ASPIRIN 325 MG TABLET PO ONE (09:30)
[2018-06-30] MEDS ORDERED: PROCHLORPERAZINE 10 MG/2 ML VIAL. IM ONE (09:30)
[2018-06-30] MEDS ORDERED: fentaNYL 25MCG/HR PATCH 1 PATCH PATCH.TD72 TD ONE (09:30)
[2018-06-30] MEDS ORDERED: cloNIDine HCL 0.1 MG TABLET PO ONE (09:30)
[2018-06-30 09:45] LABS: CALCIUM 9.9 mg/dL (8.5-10.1); CREATININE 5.6 mg/dL (0.6-1.0); GFR 9.5; POTASSIUM 3.9 mmol/L (3.5-5.1)
--- NOTE | 2018-06-30 09:47 | RAD ---
AP view of the chest. Comparison: Chest radiograph dated 06/07/2018. Indication: CHEST PAIN, NAUSEA,VOMITING Findings: Unchanged left IJ dialysis catheter. Normal lung volume. No focal consolidation. Normal pulmonary vasculature. No pleural effusion or pneumothorax. Unchanged cardiomegaly. The great vessels of the thorax are unchanged. No acute osseous abnormality. IMPRESSION: 1. No focal consolidation. 2. Unchanged cardiomegaly. 3. Unchanged left IJ dialysis catheter. Electronically signed by: Levi Green MD (06/30/2018 9:44 AM) [facility]
[2018-06-30 09:50] LABS: MAGNESIUM 2.4 mg/dL (1.8-2.4); TOTAL BILIRUBIN 0.5 mg/dL (0.2-1.0); TOTAL PROTEIN 7.9 g/dL (6.4-8.2)
[2018-06-30 09:52] LABS: BASO # 0.1 x10^3/uL (0.0-0.2); BASO % 1 % (0-3); EOS % 0 % (0-3); HEMATOCRIT 41.6 % (36.0-47.0); HEMOGLOBIN 13.7 g/dL (12.0-15.5); LYMPH # 0.9 x10^3/uL (1.0-4.8); LYMPH % 9 % (24-48); MEAN CORPUSCULAR HEMOGLOBIN 29 pg (25-35); MEAN CORPUSCULAR HGB CONC 33 g/dL (31-37); MEAN CORPUSCULAR VOLUME 89 fL (79-100); MONO # 0.4 x10^3/uL (0.0-1.1); MONO % 4 % (0-9); NEUT # 8.9 x10^3uL (1.8-7.7); NEUT % 87 % (31-73); PLATELET COUNT 391 x10^3/uL (140-400); RED BLOOD COUNT 4.68 x10^6/uL (3.50-5.40); RED CELL DISTRIBUTION WIDTH 19.9 % (11.5-14.5); WHITE BLOOD COUNT 10.3 x10^3/uL (4.0-11.0)
[2018-06-30 10:30] VITALS: BP 182/87
[2018-06-30 10:40] LABS: % BANDS 1 % (0-9); % BASOS 1 % (0-3); % LYMPHS 13 % (24-48); % MONOS 2 % (0-10); % SEGS 83 % (35-66); ANISOCYTOSIS PRESENT; PLT ESTIMATE ADEQUATE (ADEQUATE)
--- NOTE | 2018-06-30 11:09 | EKG ---
[facility] [address] [place] [address] Test Date: 2018-06-30 Test Time: 09:08:44 Pat Name: OTTONIEL SMITH Department: Room: Gender: F Doors Prefitter: : 1960 Requested By: JOAN CHACON Order Number: [id number] Reading MD: Marbin Kennedy MD Measurements Intervals [place] Rate: 111 P: 73 IA: 142 QRS: -5 QRSD: 84 T: 137 QT: 348 QTc: 477 Interpretive Statements SINUS TACHYCARDIA LVH NON-SPECIFIC ST/T CHANGES Electronically Signed On 07-03-2018 15:14:46 CDT by Marbin Kennedy MD
[2018-07-11] MEDS ORDERED: HYDR-2761 PO (13:16)
== END 2018-06-30 11:08 | disposition home or self-care (01) ==
LOC: ER 08:45
DX: I12.0 Hypertensive chronic kidney disease with stage 5 chronic kidney disease or end stage renal disease (principal); E11.22 Type 2 diabetes mellitus with diabetic chronic kidney disease; N18.6 End stage renal disease; R79.89 Other specified abnormal findings of blood chemistry; Z99.2 Dependence on renal dialysis; E11.40 Type 2 diabetes mellitus with diabetic neuropathy, unspecified; G89.29 Other chronic pain; E11.39 Type 2 diabetes mellitus with other diabetic ophthalmic complication; E03.9 Hypothyroidism, unspecified; H40.9 Unspecified glaucoma; Z90.710 Acquired absence of both cervix and uterus; Z88.5 Allergy status to narcotic agent
CPT/HCPCS: 36415; 71045; 80053; 83690; 83735; 84484; 85007; 85025; 93005; 96372; 99284; J0780

== ENCOUNTER 2018-07-09 09:31 | Inpatient (IN) | payer OTHER ==
[~2018-07-09] VITALS: Ht 157.5 cm; Wt 50.9 kg
[2018-07-09] VITALS (8 sets, daily range): BP systolic 165–230; BP diastolic 71–111
[2018-07-09] MEDS ORDERED: FAMOTIDINE 20 MG/2 ML VIAL IVP ONE (09:45)
[2018-07-09] MEDS ORDERED: ONDANSETRON PF 4 MG/2 ML VIAL. IV ONE (09:45)
--- NOTE | 2018-07-09 09:47 | PHYS DOC ---
Past Medical History Past Medical History: Diabetes-Type II, Glaucoma, Hypertension, Hypothyroid, Renal Disease, Renal Failure, Other Additional Past Medical Histor: neuropathy, cataracts,CHRONIC PAIN,ESRD Past Surgical History: Hysterectomy, Other Additional Past Surgical Histo: PT POOR HISTORIAN,DIALYSIS CATHETER L. CHEST Alcohol Use: None Drug Use: None Adult General HPI HPI Patient is a 58 year old female with history of diabetes type 2ic low back p, hypertension, end-stage renal disease on dialysis Monday, Monday, Monday, last dialyzed Monday but did not finish dialysis who presents today to the ED complaining of chronic back pain, nausea, vomiting, cough and chills since this morning. Patient is well known in the ED for being manipulative especially in regards to narcotic medication request, she is very friendly right now. Review of Systems Review of Systems Constitutional: Denies fever or chills [] Eyes: Denies change in visual acuity, redness, or eye pain [] HENT: Denies nasal congestion or sore throat [] Respiratory: Reports cough, denies shortness of breath [] Cardiovascular: No additional information not addressed in HPI [] GI: Reports nausea and vomiting. Denies abdominal pain, bloody stools or diarrhea [] : Denies dysuria or hematuria [] Musculoskeletal: Reports chronic low back pain Integument: Denies rash or skin lesions [] Neurologic: Denies headache, focal weakness or sensory changes [] All other systems were reviewed and found to be within normal limits, except as documented in this note. Current Medications Current Medications Current Medications Medications (Trade) Dose Ordered Sig/Clarence Start Time Stop Time Status Last Admin Dose Admin Acetaminophen (Tylenol) 650 mg PRN Q4HRS PRN 07/09/18 13:00 07/10/18 12:59 Ceftriaxone Sodium (Rocephin) 1 gm 1X ONCE 07/09/18 11:00 07/09/18 11:01 DC 07/09/18 11:58 1 GM Clonidine HCl (Catapres) 0.3 mg 1X ONCE 07/09/18 12:15 07/09/18 12:16 DC 07/09/18 13:01 0.3 MG Famotidine (Pepcid Vial) 20 mg 1X ONCE 07/09/18 09:45 07/09/18 09:46 DC 07/09/18 11:41 20 MG Fentanyl Citrate (Fentanyl 2ml Vial) 50 mcg PRN Q1HR PRN 07/09/18 13:00 07/10/18 12:59 07/09/18 13:24 50 MCG Labetalol HCl (Normodyne Iv Push) 10 mg 1X ONCE 07/09/18 12:15 07/09/18 12:16 DC 07/09/18 13:02 10 MG Ondansetron HCl (Zofran) 4 mg PRN Q8HRS PRN 07/09/18 13:00 07/10/18 12:59 Vancomycin HCl (Vanco Per Pharmacy) 1 each PRN DAILY PRN 07/09/18 11:00 UNV Vancomycin HCl 1.25 gm/Sodium Chloride 250 ml @ 166.667 mls/hr 1X ONCE 07/09/18 11:00 07/09/18 12:29 DC 07/09/18 12:01 166.667 MLS/HR Allergies Allergies Allergies Coded Allergies Type Severity Reaction Last Updated Verified morphine Allergy Intermediate Itching 03/27/18 Yes Physical Exam Physical Exam Constitutional: Well developed, well nourished, no acute distress, non-toxic appearance. [] HENT: Normocephalic, atraumatic, bilateral external ears normal, oropharynx moist, no oral exudates, nose normal. [] Eyes: PERRLA, EOMI, conjunctiva normal, no discharge. [] Neck: Normal range of motion, no tenderness, supple, no stridor. [] Cardiovascular:tachycardic, Left upper chest dialysis catheter, no redness or drainage around catheter site. Lungs & Thorax: Bilateral breath sounds clear to auscultation [] Abdomen: Bowel sounds normal, soft, no tenderness, no masses, no pulsatile masses. [] Skin: dry skin Back: No tenderness, no CVA tenderness. [] Extremities: No tenderness, no cyanosis, no clubbing, ROM intact, no edema. [] Neurologic: Alert and oriented X 3, normal motor function, normal sensory function, no focal deficits noted. [] Psychologic: flat affect. Moaning and asking for pain medicine Current Patient Data Vital Signs Vital Signs Date Time Temp Pulse Resp B/P (MAP) Pulse Ox O2 Delivery O2 Flow Rate FiO2 07/09/18 13:24 Room Air 07/09/18 13:02 100 228/105 07/09/18 11:55 2 100 07/09/18 09:59 97.8 97.8 Lab Values Laboratory Tests Test 07/09/18 10:28 07/09/18 11:15 Influenza Type A Antigen Negative (NEGATIVE) Influenza Type B Antigen Negative (NEGATIVE) White Blood Count 14.4 x10^3/uL (4.0-11.0) H Red Blood Count 4.15 x10^6/uL (3.50-5.40) Hemoglobin 11.9 g/dL (12.0-15.5) L Hematocrit 36.5 % (36.0-47.0) Mean Corpuscular Volume 88 fL (79-100) Mean Corpuscular Hemoglobin 29 pg (25-35) Mean Corpuscular Hemoglobin Concent 33 g/dL (31-37) Red Cell Distribution Width 19.3 % (11.5-14.5) H Platelet Count 441 x10^3/uL (140-400) H Neutrophils (%) (Auto) 90 % (31-73) H Lymphocytes (%) (Auto) 6 % (24-48) L Monocytes (%) (Auto) 3 % (0-9) Eosinophils (%) (Auto) 0 % (0-3) Basophils (%) (Auto) 1 % (0-3) Neutrophils # (Auto) 13.0 x10^3uL (1.8-7.7) H Lymphocytes # (Auto) 0.9 x10^3/uL (1.0-4.8) L Monocytes # (Auto) 0.4 x10^3/uL (0.0-1.1) Eosinophils # (Auto) 0.0 x10^3/uL (0.0-0.7) Basophils # (Auto) 0.1 x10^3/uL (0.0-0.2) Segmented Neutrophils % 90 % (35-66) H Band Neutrophils % 2 % (0-9) Lymphocytes % 6 % (24-48) L Monocytes % 2 % (0-10) Platelet Estimate Increased (ADEQUATE) Sodium Level 145 mmol/L (136-145) Potassium Level 3.8 mmol/L (3.5-5.1) Chloride Level 99 mmol/L (98-107) Carbon Dioxide Level 28 mmol/L (21-32) Anion Gap 18 (6-14) H Blood Urea Nitrogen 71 mg/dL (7-20) H Creatinine 11.2 mg/dL (0.6-1.0) H Estimated GFR (Cockcroft-Gault) 4.3 BUN/Creatinine Ratio 6 (6-20) Glucose Level 122 mg/dL (70-99) H Lactic Acid Level 1.2 mmol/L (0.4-2.0) Calcium Level 9.2 mg/dL (8.5-10.1) Magnesium Level 2.8 mg/dL (1.8-2.4) H Total Bilirubin 0.6 mg/dL (0.2-1.0) Aspartate Amino Transferase (AST) 39 U/L (15-37) H Alanine Aminotransferase (ALT) 32 U/L (14-59) Alkaline Phosphatase 90 U/L (46-116) Creatine Kinase 174 U/L (26-192) Creatine Kinase MB (Mass) 5.3 ng/mL (0.0-3.6) H Creatine Kinase MB Relative Index 3.0 % (0-4) Troponin I Quantitative 0.166 ng/mL (0.000-0.055) IE-Etq-[id number]-Type Natriuretic Peptide > 52345 pg/mL (0-124) H Total Protein 7.3 g/dL (6.4-8.2) Albumin 3.8 g/dL (3.4-5.0) Albumin/Globulin Ratio 1.1 (1.0-1.7) Lipase 288 U/L (73-393) Thyroid Stimulating Hormone (TSH) 2.120 uIU/mL (0.358-3.74) Laboratory Tests 07/09/18 11:15 Laboratory Tests 07/09/18 11:15 EKG EKG 10:[address] Godfrey sinus tachycardia at heart rate 104 no STEMI Radiology/Procedures Radiology/Procedures []PROCEDURE: PORTABLE CHEST 1V PORTABLE CHEST 1V History: COUGH, NAUSEA Comparison: June 30, 2018 Findings: Single view of the chest is submitted. There is again dual lumen left internal jugular catheter, tip in region of the right atrium. There is increased airspace opacity of the right lung base and infrahilar region. There is no pneumothorax or pleural fluid. Heart size is stable. There are again some bony fragments near the right greater tuberosity, likely chronic. Impression: 1. There is increased airspace opacity of the right lung base and right infrahilar region which may be due to infiltrate or asymmetric edema. Electronically signed by: Rhett Trinh MD (07/09/2018 10:04 AM) [id number] DICTATED and SIGNED BY: RHETT TRINH MD DATE: 07/09/18 1004 Course & Med Decision Making Course & Med Decision Making Pertinent Labs and Imaging studies reviewed. (See chart for details) This is a 58-year-old female patient well known to this ED on end-stage renal disease presenting to the ED today with multiple complaints including chronic low back pain, nausea, vomiting, cough, chills, symptoms began yesterday. Patient went to dialysis on Monday and apparently did not finish the dialysis sensory. CBC with a WBC of 14.4 and a left shift. CMP consistent with renal failure, potassium is normal. Troponin 0.166 patient has history of elevated troponin, EKG is normal, no chest pain on arrival to the ED. Chest x-ray interpreted by radiologist was noted for possible right lower lobe infiltrate. Lactic is normal, patient was started on Rocephin and vancomycin in the ED. Routine consult placed for cardiology, routine consult placed for nephrology. Spoke with Dr. Wilhelm who accepted patient for admission Dragon Disclaimer Dragon Disclaimer This electronic medical record was generated, in whole or in part, using a voice recognition dictation system. Departure Departure Impression: Primary Impression: ESRD (end stage renal disease) on dialysis Additional Impressions: Chronic back pain Accelerated hypertension Non-ST elevation IL (NSTEMI) Right lower lobe pulmonary infiltrate Disposition: 09 ADMITTED INPATIENT Condition: STABLE Referrals: NO PCP (PCP) Problem Qualifiers Additional Impressions: Chronic back pain Back pain location: low back pain Back pain laterality: bilateral Sciatica presence: without sciatica Qualified Codes: M54.5 - Low back pain; G89.29 - Other chronic pain JOAN CHACON APRN Jul 09, 2018 09:47
--- NOTE | 2018-07-09 10:07 | RAD ---
PORTABLE CHEST 1V History: COUGH, NAUSEA Comparison: June 30, 2018 Findings: Single view of the chest is submitted. There is again dual lumen left internal jugular catheter, tip in region of the right atrium. There is increased airspace opacity of the right lung base and infrahilar region. There is no pneumothorax or pleural fluid. Heart size is stable. There are again some bony fragments near the right greater tuberosity, likely chronic. Impression: 1. There is increased airspace opacity of the right lung base and right infrahilar region which may be due to infiltrate or asymmetric edema. Electronically signed by: Jeffrey Jackson MD (07/09/2018 10:04 AM) [email or web address]
--- NOTE | 2018-07-09 10:43 | EKG ---
[facility] [address] [place] [address] Test Date: 2018-07-09 Test Time: 10:17:40 Pat Name: OTTONIEL SMITH Department: Room: Gender: F Activity Coordinator: : 1960 Requested By: JOAN CHACON Order Number: [id number] Reading MD: David Gilbert Measurements Intervals [place] Rate: 104 P: 90 WI: 128 QRS: -17 QRSD: 82 T: 137 QT: 362 QTc: 483 Interpretive Statements SINUS TACHYCARDIA LEFTWARD AXIS LVH WITH REPOLARIZATION ABNORMALITY ABNORMAL ECG Electronically Signed On 07-16-2018 12:58:35 CDT by David Gilbert
[2018-07-09 10:54] LABS: INFLUENZA A PATIENT NEGATIVE (NEGATIVE); INFLUENZA B PATIENT NEGATIVE (NEGATIVE)
[2018-07-09] MEDS ORDERED: cefTRIAXone IV Push 1 GM VIAL. IVP ONE (11:00)
[2018-07-09] MEDS ORDERED: VANCOMYCIN 1.25 GM in IV NORMAL SALINE 250ML 250 ML IV ONE (11:00)
[2018-07-09 11:27] LABS: BASO # 0.1 x10^3/uL (0.0-0.2); BASO % 1 % (0-3); EOS % 0 % (0-3); HEMATOCRIT 36.5 % (36.0-47.0); HEMOGLOBIN 11.9 g/dL (12.0-15.5); LYMPH # 0.9 x10^3/uL (1.0-4.8); LYMPH % 6 % (24-48); MEAN CORPUSCULAR HEMOGLOBIN 29 pg (25-35); MEAN CORPUSCULAR HGB CONC 33 g/dL (31-37); MEAN CORPUSCULAR VOLUME 88 fL (79-100); MONO # 0.4 x10^3/uL (0.0-1.1); MONO % 3 % (0-9); NEUT % 90 % (31-73); PLATELET COUNT 441 x10^3/uL (140-400); RED BLOOD COUNT 4.15 x10^6/uL (3.50-5.40); RED CELL DISTRIBUTION WIDTH 19.3 % (11.5-14.5); WHITE BLOOD COUNT 14.4 x10^3/uL (4.0-11.0)
[2018-07-09 11:39] LABS: CALCIUM 9.2 mg/dL (8.5-10.1); CREATININE 11.2 mg/dL (0.6-1.0); GFR 4.3; POTASSIUM 3.8 mmol/L (3.5-5.1)
[2018-07-09 11:51] LABS: ALBUMIN 3.8 g/dL (3.4-5.0); ALBUMIN/GLOBULIN RATIO 1.1 (1.0-1.7); MAGNESIUM 2.8 mg/dL (1.8-2.4); TOTAL BILIRUBIN 0.6 mg/dL (0.2-1.0); TOTAL PROTEIN 7.3 g/dL (6.4-8.2)
[2018-07-09 11:56] LABS: CREATINE KINASE 174 U/L (26-192)
[2018-07-09] MEDS ORDERED: fentaNYL PF VIAL 100 MCG/2 ML VIAL IV ONE (12:00)
--- NOTE | 2018-07-09 12:09 | PDOC1 ---
History and Physical Date of Admission Date of Admission DATE: 07/09/18 TIME: 12:07 Identification/Chief Complaint Chief Complaint Nausea, abdominal pain, shortness of breath Source Source: Patient History of Present Illness History of Present Illness Ms. Salazar, is a 57 year old F w/ PMHx ESRD on HD admit from ER with acute abdominal pain, nausea, and vomiting as a well as cough, feeling badly. Was supposed to have dialysis on Monday but she missed her appointment then and today. Leukocytosis 14K and CXR with right lower lobe possible infiltrate She is writhing in some abdominal pain when seen. Today has no difficulty swallowing, instructed she needs PPI after EGD 03/06/18 showed reflux Past Medical History Cardiovascular: CHF, HTN, Hyperlipidemia Pulmonary: Asthma, COPD CENTRAL NERVOUS SYSTEM: Periperal neuropathy GI: No pertinent hx Heme/Onc: No pertinent hx Hepatobiliary: No pertinent hx Psych: Anxiety Rheumatologic: Fibromyalgia Infectious disease: No pertinent hx Renal/: Chronic renal failure Endocrine: Diabetes, Hypothyroidism, Hyperparathyroidism Past Surgical History Past Surgical History: No pertinent history Family History Family History: Family History Unknown Social History ALCOHOL: other Drugs: Cocaine, Marijuana Current Medications Current Medications Current Medications Ondansetron HCl (Zofran) 4 mg 1X ONCE IV Last administered on 07/09/18at 11:39 ; Start 07/09/18 at 09:45; Stop 07/09/18 at 09:46; Status DC Famotidine (Pepcid Vial) 20 mg 1X ONCE IVP Last administered on 07/09/18at 11: 41; Start 07/09/18 at 09:45; Stop 07/09/18 at 09:46; Status DC Ceftriaxone Sodium (Rocephin) 1 gm 1X ONCE IVP Last administered on 07/09/18at 11:58; Start 07/09/18 at 11:00; Stop 07/09/18 at 11:01; Status DC Vancomycin HCl (Vanco Per Pharmacy) 1 each PRN DAILY PRN MC SEE COMMENTS; Start 07/09/18 at 11:00; Status UNV Vancomycin HCl 1.25 gm/Sodium Chloride 250 ml @ 166.667 mls/hr 1X ONCE IV Last administered on 07/09/18at 12:01; Start 07/09/18 at 11:00; Stop 07/09/18 at 12:29 Fentanyl Citrate (Fentanyl 2ml Vial) 50 mcg 1X ONCE IV Last administered on at 11:55; Start 07/09/18 at 12:00; Stop 07/09/18 at 12:01; Status DC Active Scripts Active Alprazolam 0.5 Mg Tablet 0.5 Mg PO PRN TID PRN MDD 1 [Pantoprazole] 40 MG Tablet. 40 Mg PO DAILYAC 30 Days Reported Percocet 5-325 Mg Tablet (Oxycodone/Acetaminophen) 1 Each Tablet 1 Tab PO Q4HRS PRN Zoloft (Sertraline Hcl) 50 Mg Tablet 50 Mg PO DAILY Lisinopril 20 Mg Tablet 20 Mg PO DAILY Coreg (Carvedilol) 6.25 Mg Tablet 6.25 Mg PO BIDWMEALS Creon 6,000 Units Capsule (Lipase/Protease/Amylase) 1 Each Capsule.dr 1 Tab PO TID Proair Hfa (Albuterol Sulfate) 8.5 Gm Hfa.aer.ad 2 Puff INH BID PRN Levothyroxine Sodium 50 Mcg Tablet 1 Tab PO DAILY Clonidine Tts-2 (Clonidine) 1 Each Patch.tdwk 1 Patch TD WEEKLY Amlodipine Besylate 5 Mg Tablet 10 Mg PO DAILY Atorvastatin Calcium 40 Mg Tablet 40 Mg PO HS Latanoprost 2.5 Ml Drops 1 Drop EACHEYE HS Allergies Allergies: Coded Allergies: morphine (Verified Allergy, Intermediate, Itching, 03/27/18) ROS General: YES: Fatigue, Malaise; No: Chills, Night Sweats, Appetite, Other PSYCHOLOGICAL ROS: No: Anxiety, Behavioral Disorder, Concentration difficultie , Decreased libido, Depression, Disorientation, Hallucinations, Hostility, Irritablity, Memory difficulties, Mood Swings, Obsessive thoughts, Physical abuse, Sexual abuse, Sleep disturbances, Suicidal ideation, Other Eyes: No Blurry vision, No Decreased vision, No Double vision, No Dry eyes, No Excessive tearing, No Eye Pain, No Itchy Eyes, No Loss of vision, No Photophobia , No Scotomata, No Uses contacts, No Uses glasses, No Other HEENT: No: Heacaches, Visual Changes, Hearing change, Nasal congestion, Nasal discharge, Oral lesions, Sinus pain, Sore Throat, Epistaxis, Sneezing, Snoring, Tinnitus, Vertigo, Vocal changes, Other ALLERGY AND IMMUNOLOGY: No: Hives, Insect Bite Sensitivity, Itchy/Watery Eyes, Nasal Congestion, Post Nasal Drip, Seasonal Allergies, Other Hematological and Lymphatic: No: Bleeding Problems, Blood Clots, Blood Transfusions, Brusing, Night Sweats, Pallor, Swollen Lymph Nodes, Other ENDOCRINE: No: Breast Changes, Galactorrhea, Hair Pattern Changes, Hot Flashes , Malaise/lethargy, Mood Swings, Palpitations, Polydipsia/polyuria, Skin Changes , Temperature Intolerance, Unexpected Weight Changes, Other Breast: No New/Changing Breast Lumps, No Nipple changes, No Nipple discharge, No Other Respiratory: YES: Cough, Shortness of breath; No: Hemoptysis, Orthopnea, Pleuritic Pain, SOB with excertion, Sputum Changes , Stridor, Tachypnea, Wheezing, Other Cardiovascular: No Chest Pain, No Palpitations, No Orthopnea, No Paroxysmal Noc. Dyspnea, No Edema, No Lt Headedness, No Other Gastrointestinal: Yes Nausea, Yes Vomiting, Yes Abdominal Pain; No Diarrhea, No Constipation, No Melena, No Hematochezia, No Other Genitourinary: No Dysuria, No Frequency, No Incontinence, No Hematuria, No Retention, No Discharge, No Urgency, No Pain, No Flank Pain, No Other, No , No , No , No , No , No , No Musculoskeletal: No Gait Disturbance, No Joint Pain, No Joint Stiffness, No Joint Swelling, No Muscle Pain, No Muscular Weakness, No Pain In:, No Swelling In:, No Other Neurological: No Behavorial Changes, No Bowel/Bladder ControlChng, No Confusion , No Dizziness, No Gait Disturbance, No Headaches, No Impaired Coord/balance, No Memory Loss, No Numbness/Tingling, No Seizures, No Speech Problems, No Tremors, No Visual Changes, No Weakness, No Other Skin: No Dry Skin, No Eczema, No Hair Changes, No Lumps, No Mole Changes, No Mottling, No Nail Changes, No Pruritus, No Rash, No Skin Lesion Changes, No Other, No Acne Physical Exam General: Alert, Cooperative, No acute distress HEENT: Atraumatic, PERRLA, EOMI, Mucous membr. moist/pink Lungs: Other (Right basilar rhonchi) Heart: S1S2, RRR Extremities: No clubbing, No cyanosis, No edema, Normal pulses, No tenderness/ swelling Skin: No rashes, No breakdown, No significant lesion Neuro: Normal gait, Normal speech, Strength at 5/5 X4 ext, Normal tone, Sensation intact, Cranial nerves 3-12 NL, Reflexes 2+ Psych/Mental Status: Mental status NL, Mood NL Vitals Vitals Vital Signs Date Time Temp Pulse Resp B/P (MAP) Pulse Ox O2 Delivery O2 Flow Rate FiO2 07/09/18 11:55 2 100 Room Air 07/09/18 09:59 97.8 105 168/95 (119) 97.8 Labs Labs Laboratory Tests Test 07/09/18 10:28 07/09/18 11:15 Influenza Type A Antigen Negative (NEGATIVE) Influenza Type B Antigen Negative (NEGATIVE) White Blood Count 14.4 x10^3/uL (4.0-11.0) Red Blood Count 4.15 x10^6/uL (3.50-5.40) Hemoglobin 11.9 g/dL (12.0-15.5) Hematocrit 36.5 % (36.0-47.0) Mean Corpuscular Volume 88 fL (79-100) Mean Corpuscular Hemoglobin 29 pg (25-35) Mean Corpuscular Hemoglobin Concent 33 g/dL (31-37) Red Cell Distribution Width 19.3 % (11.5-14.5) Platelet Count 441 x10^3/uL (140-400) Neutrophils (%) (Auto) 90 % (31-73) Lymphocytes (%) (Auto) 6 % (24-48) Monocytes (%) (Auto) 3 % (0-9) Eosinophils (%) (Auto) 0 % (0-3) Basophils (%) (Auto) 1 % (0-3) Neutrophils # (Auto) 13.0 x10^3uL (1.8-7.7) Lymphocytes # (Auto) 0.9 x10^3/uL (1.0-4.8) Monocytes # (Auto) 0.4 x10^3/uL (0.0-1.1) Eosinophils # (Auto) 0.0 x10^3/uL (0.0-0.7) Basophils # (Auto) 0.1 x10^3/uL (0.0-0.2) Sodium Level 145 mmol/L (136-145) Potassium Level 3.8 mmol/L (3.5-5.1) Chloride Level 99 mmol/L (98-107) Carbon Dioxide Level 28 mmol/L (21-32) Anion Gap 18 (6-14) Blood Urea Nitrogen 71 mg/dL (7-20) Creatinine 11.2 mg/dL (0.6-1.0) Estimated GFR (Cockcroft-Gault) 4.3 BUN/Creatinine Ratio 6 (6-20) Glucose Level 122 mg/dL (70-99) Lactic Acid Level 1.2 mmol/L (0.4-2.0) Calcium Level 9.2 mg/dL (8.5-10.1) Magnesium Level 2.8 mg/dL (1.8-2.4) Total Bilirubin 0.6 mg/dL (0.2-1.0) Aspartate Amino Transf (AST/SGOT) 39 U/L (15-37) Alanine Aminotransferase (ALT/SGPT) 32 U/L (14-59) Alkaline Phosphatase 90 U/L (46-116) Creatine Kinase 174 U/L (26-192) Creatine Kinase MB (Mass) 5.3 ng/mL (0.0-3.6) Creatine Kinase MB Relative Index 3.0 % (0-4) Troponin I Quantitative 0.166 ng/mL (0.000-0.055) WM-Lgz-D-Type Natriuretic Peptide > 56550 pg/mL (0-124) Total Protein 7.3 g/dL (6.4-8.2) Albumin 3.8 g/dL (3.4-5.0) Albumin/Globulin Ratio 1.1 (1.0-1.7) Lipase 288 U/L (73-393) Thyroid Stimulating Hormone (TSH) 2.120 uIU/mL (0.358-3.74) Laboratory Tests Test 07/09/18 10:28 07/09/18 11:15 Influenza Type A Antigen Negative (NEGATIVE) Influenza Type B Antigen Negative (NEGATIVE) White Blood Count 14.4 x10^3/uL (4.0-11.0) Red Blood Count 4.15 x10^6/uL (3.50-5.40) Hemoglobin 11.9 g/dL (12.0-15.5) Hematocrit 36.5 % (36.0-47.0) Mean Corpuscular Volume 88 fL (79-100) Mean Corpuscular Hemoglobin 29 pg (25-35) Mean Corpuscular Hemoglobin Concent 33 g/dL (31-37) Red Cell Distribution Width 19.3 % (11.5-14.5) Platelet Count 441 x10^3/uL (140-400) Neutrophils (%) (Auto) 90 % (31-73) Lymphocytes (%) (Auto) 6 % (24-48) Monocytes (%) (Auto) 3 % (0-9) Eosinophils (%) (Auto) 0 % (0-3) Basophils (%) (Auto) 1 % (0-3) Neutrophils # (Auto) 13.0 x10^3uL (1.8-7.7) Lymphocytes # (Auto) 0.9 x10^3/uL (1.0-4.8) Monocytes # (Auto) 0.4 x10^3/uL (0.0-1.1) Eosinophils # (Auto) 0.0 x10^3/uL (0.0-0.7) Basophils # (Auto) 0.1 x10^3/uL (0.0-0.2) Sodium Level 145 mmol/L (136-145) Potassium Level 3.8 mmol/L (3.5-5.1) Chloride Level 99 mmol/L (98-107) Carbon Dioxide Level 28 mmol/L (21-32) Anion Gap 18 (6-14) Blood Urea Nitrogen 71 mg/dL (7-20) Creatinine 11.2 mg/dL (0.6-1.0) Estimated GFR (Cockcroft-Gault) 4.3 BUN/Creatinine Ratio 6 (6-20) Glucose Level 122 mg/dL (70-99) Lactic Acid Level 1.2 mmol/L (0.4-2.0) Calcium Level 9.2 mg/dL (8.5-10.1) Magnesium Level 2.8 mg/dL (1.8-2.4) Total Bilirubin 0.6 mg/dL (0.2-1.0) Aspartate Amino Transf (AST/SGOT) 39 U/L (15-37) Alanine Aminotransferase (ALT/SGPT) 32 U/L (14-59) Alkaline Phosphatase 90 U/L (46-116) Creatine Kinase 174 U/L (26-192) Creatine Kinase MB (Mass) 5.3 ng/mL (0.0-3.6) Creatine Kinase MB Relative Index 3.0 % (0-4) Troponin I Quantitative 0.166 ng/mL (0.000-0.055) KY-Ehq-U-Type Natriuretic Peptide > 66998 pg/mL (0-124) Total Protein 7.3 g/dL (6.4-8.2) Albumin 3.8 g/dL (3.4-5.0) Albumin/Globulin Ratio 1.1 (1.0-1.7) Lipase 288 U/L (73-393) Thyroid Stimulating Hormone (TSH) 2.120 uIU/mL (0.358-3.74) Images Images CXR - 1. There is increased airspace opacity of the right lung base and right infrahilar region which may be due to infiltrate or asymmetric edema. VTE Prophylaxis Ordered VTE Prophylaxis Devices: Yes VTE Pharmacological Prophylaxi: Yes Assessment/Plan Assessment/Plan A/P: HTN urgency - will place on IV labetalol and restart her home meds RLL infiltrate - will treat as HCAP given her dialysis status, Cefepime, had vanco x1, will screen for MRSA ESRD - need dialysis regularly outpatient. Consulted nephrology Anemia - of chronic renal disease, will f/u outpatient CBC at dialysis, asymptomatic HTN - Monitor Sepsis - f/u cultures, treating as HCAP, will consult ID as she frequently has SIRS Troponin elevation - likely 2/2 demand, chronic. ED has consulted cardiology Anasarca - f/u on possible esophageal mass biopsy FEN - Renal diet PPX - heparin FULL CODE Inpatient for at least 2 midnights for likely HCAP FELI SHAH MD Jul 09, 2018 12:08
[2018-07-09 12:15] LABS: % BANDS 2 % (0-9); % LYMPHS 6 % (24-48); % MONOS 2 % (0-10); % SEGS 90 % (35-66); PLT ESTIMATE INCREASED (ADEQUATE)
[2018-07-09] MEDS ORDERED: LABETALOL 20 MG/4 ML DISP.SYRIN. IVP ONE (12:15)
[2018-07-09] MEDS ORDERED: cloNIDine HCL 0.1 MG TABLET PO ONE (12:15)
[2018-07-09] MEDS ORDERED: ACETAMINOPHEN 325 MG TABLET. PO PRN ×2 (13:00→14:45)
[2018-07-09] MEDS ORDERED: ONDANSETRON PF 4 MG/2 ML VIAL. IV PRN ×2 (13:00→14:45)
[2018-07-09] MEDS: fentaNYL PF VIAL 100 MCG/2 ML VIAL IV PRN ×3 (13:24→20:23)
--- NOTE | 2018-07-09 14:06 | PDOC2 ---
JAMALMORAIMA LLAMAS HARRIS 07/09/18 1406: CARDIAC CONSULT DATE OF CONSULT Date of Consult DATE: 07/09/18 TIME: 13:59 REASON FOR CONSULT Reason for Consult: Elevated troponin REFERRING PHYSICIAN Referring Physician: Lakeisha Navarrete APRN SOURCE Source: Chart review, Patient HISTORY OF PRESENT ILLNESS HISTORY OF PRESENT ILLNESS This is a 58 yo female, with a history of hypertension and ESRD on HD MWF, who presented secondary to fevers/chills, nausea/vomiting. abdominal pain, and back pain. Did not complete HD Monday for unknown reasons. Due to fevers/chills and pain, was unable to go today so she presented to the ED for further evaluation and treatment. Denies any SOA, dizziness, diaphoresis, palpitation, orthopnea, or LE edema . Does c/o pain around her left chest, which is very tender upon palpation. PAST MEDICAL HISTORY Past Medical History Cardiovascular: CHF, HTN, Hyperlipidemia Pulmonary: Asthma, COPD CENTRAL NERVOUS SYSTEM: Peripheral neuropathy GI: No pertinent hx Heme/Onc: No pertinent hx Hepatobiliary: No pertinent hx Psych: Anxiety Musculoskeletal: low back pain, Osteoarthritis Rheumatologic: Fibromyalgia Infectious disease: No pertinent hx ENT: No pertinent hx Renal/: Chronic renal failure (on HD) Endocrine: Diabetes, Hypothyroidism Dermatology: No pertinent hx PAST SURGICAL HISTORY Past Surgical History: No pertinent history FAMILY HISTORY Family History: Other (noncontributory) SOCIAL HISTORY Social History Smoke: No ALCOHOL: none Drugs: marijuana Lives: with Family CURRENT MEDICATIONS CURRENT MEDICATIONS Current Medications Medications (Trade) Dose Ordered Sig/Clarence Route PRN Reason Start Time Stop Time Status Last Admin Dose Admin Ondansetron HCl (Zofran) 4 mg 1X ONCE IV 07/09/18 09:45 07/09/18 09:46 DC 07/09/18 11:39 Famotidine (Pepcid Vial) 20 mg 1X ONCE IVP 07/09/18 09:45 07/09/18 09:46 DC 07/09/18 11:41 Ceftriaxone Sodium (Rocephin) 1 gm 1X ONCE IVP 07/09/18 11:00 07/09/18 11:01 DC 07/09/18 11:58 Vancomycin HCl 1.25 gm/Sodium Chloride 250 ml @ 166.667 mls/hr 1X ONCE IV 07/09/18 11:00 07/09/18 12:29 DC 07/09/18 12:01 Fentanyl Citrate (Fentanyl 2ml Vial) 50 mcg 1X ONCE IV 07/09/18 12:00 07/09/18 12:01 DC 07/09/18 11:55 Clonidine HCl (Catapres) 0.3 mg 1X ONCE PO 07/09/18 12:15 07/09/18 12:16 DC 07/09/18 13:01 Labetalol HCl (Normodyne Iv Push) 10 mg 1X ONCE IVP 07/09/18 12:15 07/09/18 12:16 DC 07/09/18 13:02 Fentanyl Citrate (Fentanyl 2ml Vial) 50 mcg PRN Q1HR PRN IV PAIN 07/09/18 13:00 07/10/18 12:59 07/09/18 13:24 ALLERGIES ALLERGIES: Coded Allergies: morphine (Verified Allergy, Intermediate, Itching, 03/27/18) ROS Review of System 14 point ROS conducted with pertinent positives noted above in HPI. PHYSICAL EXAM PHYSICAL EXAM General: Alert, Oriented X3, no distress HEENT: Atraumatic, Mucous membr. moist/pink Lungs: Other (bibasilar crackles ) Abdomen: Soft, No tenderness Extremities: Other (trace LE edema, bilaterally) Skin: No significant lesion Neuro: Normal speech, Sensation intact Psych/Mental Status: Other (flat affect, uncooperative) MUSCULOSKELETAL: No deformity VITALS VITALS Vital Signs Date Time Temp Pulse Resp B/P (MAP) Pulse Ox O2 Delivery O2 Flow Rate FiO2 07/09/18 13:24 Room Air 07/09/18 13:02 100 228/105 07/09/18 12:19 99 07/09/18 11:55 2 07/09/18 09:59 97.8 97.8 LABS Lab: Laboratory Tests Test 07/09/18 10:28 07/09/18 11:15 Influenza Type A Antigen Negative (NEGATIVE) Influenza Type B Antigen Negative (NEGATIVE) White Blood Count 14.4 x10^3/uL (4.0-11.0) Red Blood Count 4.15 x10^6/uL (3.50-5.40) Hemoglobin 11.9 g/dL (12.0-15.5) Hematocrit 36.5 % (36.0-47.0) Mean Corpuscular Volume 88 fL (79-100) Mean Corpuscular Hemoglobin 29 pg (25-35) Mean Corpuscular Hemoglobin Concent 33 g/dL (31-37) Red Cell Distribution Width 19.3 % (11.5-14.5) Platelet Count 441 x10^3/uL (140-400) Neutrophils (%) (Auto) 90 % (31-73) Lymphocytes (%) (Auto) 6 % (24-48) Monocytes (%) (Auto) 3 % (0-9) Eosinophils (%) (Auto) 0 % (0-3) Basophils (%) (Auto) 1 % (0-3) Neutrophils # (Auto) 13.0 x10^3uL (1.8-7.7) Lymphocytes # (Auto) 0.9 x10^3/uL (1.0-4.8) Monocytes # (Auto) 0.4 x10^3/uL (0.0-1.1) Eosinophils # (Auto) 0.0 x10^3/uL (0.0-0.7) Basophils # (Auto) 0.1 x10^3/uL (0.0-0.2) Segmented Neutrophils % 90 % (35-66) Band Neutrophils % 2 % (0-9) Lymphocytes % 6 % (24-48) Monocytes % 2 % (0-10) Platelet Estimate Increased (ADEQUATE) Sodium Level 145 mmol/L (136-145) Potassium Level 3.8 mmol/L (3.5-5.1) Chloride Level 99 mmol/L (98-107) Carbon Dioxide Level 28 mmol/L (21-32) Anion Gap 18 (6-14) Blood Urea Nitrogen 71 mg/dL (7-20) Creatinine 11.2 mg/dL (0.6-1.0) Estimated GFR (Cockcroft-Gault) 4.3 BUN/Creatinine Ratio 6 (6-20) Glucose Level 122 mg/dL (70-99) Lactic Acid Level 1.2 mmol/L (0.4-2.0) Calcium Level 9.2 mg/dL (8.5-10.1) Magnesium Level 2.8 mg/dL (1.8-2.4) Total Bilirubin 0.6 mg/dL (0.2-1.0) Aspartate Amino Transf (AST/SGOT) 39 U/L (15-37) Alanine Aminotransferase (ALT/SGPT) 32 U/L (14-59) Alkaline Phosphatase 90 U/L (46-116) Creatine Kinase 174 U/L (26-192) Creatine Kinase MB (Mass) 5.3 ng/mL (0.0-3.6) Creatine Kinase MB Relative Index 3.0 % (0-4) Troponin I Quantitative 0.166 ng/mL (0.000-0.055) ES-Xvx-F-Type Natriuretic Peptide > 33028 pg/mL (0-124) Total Protein 7.3 g/dL (6.4-8.2) Albumin 3.8 g/dL (3.4-5.0) Albumin/Globulin Ratio 1.1 (1.0-1.7) Lipase 288 U/L (73-393) Thyroid Stimulating Hormone (TSH) 2.120 uIU/mL (0.358-3.74) ECHOCARDIOGRAM ECHOCARDIOGRAM <Conclusion> The left ventricular systolic function is normal. The Ejection Fraction is 60-65%. There is normal LV segmental wall motion. Evidence for grade III diastolic dysfunction. There is moderate concentric left ventricular hypertrophy. Doppler and Color Flow revealed trace tricuspid valve regurgitation. There is no evidence of significant pericardial effusion. DATE: 03/05/18 1632 STRESS TEST STRESS TEST Conclusion 1. Regadenoson cardioisotope stress test did not show any evidence of ischemia or infarct. 2. Normal left ventricular systolic function with ejection fraction calculated at 51%. 3. Low risk for cardiac events. DATE: 03/26/18 1227 ASSESSMENT/PLAN ASSESSMENT/PLAN 1. Nausea/vomiting, abdominal pain 2. Malignant hypertension; remains elevated. 3. Chest pain, atypical; Most probably MSK in origin as left chest is tender upon palpation. Recent stress test without any evidence of ischemia or infarct as noted above. 4. Mild troponin elevated; initial 0.166. multifactorial, demand mediated type 2 in the setting of ESRD 5. Acute on chronic diastolic CHF; CXR with mild edema 6. ESRD on HD; incomplete run on Monday and no HD today 7. Hyperlipidemia; statin 8. DM, II; as per PCP 9. Hypothyroidism; on replacement 10. Noncompliance Recommendations Resume home antiHTN therapy including clonidine patch. Will convert coreg to labetalol for better control May use Labetalol and Hydralazine IV PRN if N/V is an issue Fluid offloading via HD as per nephrology Supportive care from a CV standpoint RILEY WHITE MD 07/09/18 1632: CARDIAC CONSULT ASSESSMENT/PLAN ASSESSMENT/PLAN Patient seen and examined. Agree with ENVIRONMENTAL SERVICES SUPERVISOR's assessment and plan. Chest pain with atypical features and most probably musculoskeletal. Slight troponin elevation probably demand ischemia. Change beta blockers to labetalol for better control of blood pressure Continue hemodialysis per nephrology team Thank you for your consultation MORAIMA BERRY APRN Jul 09, 2018 14:06 RILEY WHITE MD Jul 09, 2018 16:32
[2018-07-09] MEDS ORDERED: ALBUTEROL SULFATE 2.5 MG/3 ML NEBU. INH PRN (14:45)
[2018-07-09] MEDS ORDERED: LACTULOSE 20 GM/30 ML SOLUTION. PO PRN (14:45)
[2018-07-09] MEDS ORDERED: LABETALOL 20 MG/4 ML DISP.SYRIN. IVP PRN (14:45)
[2018-07-09] MEDS: amLODIPine BESYLATE 5 MG TABLET PO SCH (15:37)
[2018-07-09] MEDS: LISINOPRIL 20 MG TABLET PO SCH (15:43)
[2018-07-09] MEDS ORDERED: cloNIDine TTS-2 1 PATCH PATCH TD SCH (15:45)
[2018-07-09] MEDS: PANTOPRAZOLE 40 MG TABLET.DR. PO SCH (15:49)
[2018-07-09] MEDS: ALPRAZolam 0.5 MG TABLET PO PRN ×2 (15:49→20:23)
--- NOTE | 2018-07-09 16:00 | NUR ---
Patient arrived to unit from ED via bed. Patient is tearful and saying she has 10/10 back pain. Patients blood pressure is 230/111. Notified cardiology, orders received. Pain medication administered. Patient alert and oriented to room and unit routines, will continue to monitor.
[2018-07-09] MEDS: LABETALOL HCL 200 MG TABLET PO SCH ×2 (16:15→20:22)
[2018-07-09] MEDS ORDERED: CARVEDILOL 6.25 MG TABLET. PO SCH (17:00)
[2018-07-09] MEDS: VANCOMYCIN PER PHARMACY MC PRN (17:11)
--- NOTE | 2018-07-09 17:12 | NUR ---
Pharmacy Vancomycin Dosing Note S:Consulted to monitor and dose vancomycin started 07/09/18. O:OTTONIEL SMITH is a 58 year old F with HCAP . Height: 5 feet, 2 inches Weight: 51.103010 kg [place] Body Weight: 50.10 Adjusted Body Weight: 50.78 Dosing Weight: Actual Other Antibiotics: CEFEPIME 1GM Q24H LABS: Last BUN: Last Creatinine: 11.2 Creatinine Clearance: 12 mL/min Last WBC: 14.4 Last Procalcitonin: ORDERED Tmax (past 24 hours): 97.8 Microbiology: I/O: Drug Levels: Last level: on at Last dose given 07/09/18 at 1200 Vancomycin Dosing: Loading Dose: 1250 mg x1 Dosing Weight: Actual Target Trough: 15-20 A: Based on: RENAL FUNCTION. DIALYSIS. P: 1.GIVE Vancomycin IVBOLUS 1.25GM X1 2. Follow up level AFTER NEXT DIALYSIS AND REDOSE . 3. Pharmacy will continue to monitor, follow and adjust therapy as needed. ALEXANDRO DELACRUZ [facility], 07/09/18 8525
[2018-07-09] MEDS: HYDROcodone/APAP 5/325MG 1 TAB TABLET PO PRN (17:47)
[2018-07-09] MEDS: SENNOSIDES/DOCUSATE 8.6/50MG TABLET. PO SCH (20:23)
[2018-07-09] MEDS: ATORVASTATIN CALCIUM 40 MG TABLET. PO SCH (20:27)
[2018-07-09] MEDS: LATANOPROST 0.005% OPHTH SOLUTION 2.5ML BOTTLE. OU SCH (20:30)
[2018-07-09] MEDS: CEFEPIME HCL IV Push 1 GM VIAL. IVP SCH (20:30)
[2018-07-10 02:49] VITALS: BP 172/71
[2018-07-10] MEDS: fentaNYL PF VIAL 100 MCG/2 ML VIAL IV PRN ×4 (02:54→13:34)
[2018-07-10] MEDS: HYDROcodone/APAP 5/325MG 1 TAB TABLET PO PRN ×4 (02:54→20:58)
[2018-07-10] MEDS: HEPARIN for SUB-Q USE 5,000 UNIT/ML VIAL. SQ SCH ×4 (06:00→21:08)
[2018-07-10] MEDS: LEVOTHYROXINE 50 MCG TABLET PO SCH (06:21)
[2018-07-10] MEDS ORDERED: IV NORMAL SALINE 1000ML BAG 1,000 ML IV PRN ×2 (07:14)
[2018-07-10] MEDS ORDERED: 0.9 % SODIUM CHLORIDE 10 ML DISP.SYRIN. IV PRN ×2 (07:15)
[2018-07-10] MEDS ORDERED: diphenhydrAMINE 50 MG/ML VIAL IV PRN ×2 (07:15)
[2018-07-10] MEDS ORDERED: ALBUMIN HUMAN 25% 200 ML IV PRN (07:15)
[2018-07-10] MEDS ORDERED: DIALYSIS PATIENT. MC PRN (07:15)
[2018-07-10] MEDS ORDERED: ACETAMINOPHEN 500 MG TABLET PO PRN (07:15)
[2018-07-10 07:37] VITALS: BP 162/75
[2018-07-10 08:18] LABS: BASO # 0.1 x10^3/uL (0.0-0.2); BASO % 1 % (0-3); EOS % 1 % (0-3); HEMATOCRIT 30.9 % (36.0-47.0); HEMOGLOBIN 10.1 g/dL (12.0-15.5); LYMPH # 2.5 x10^3/uL (1.0-4.8); LYMPH % 32 % (24-48); MEAN CORPUSCULAR HEMOGLOBIN 29 pg (25-35); MEAN CORPUSCULAR HGB CONC 33 g/dL (31-37); MEAN CORPUSCULAR VOLUME 89 fL (79-100); MONO # 0.6 x10^3/uL (0.0-1.1); MONO % 8 % (0-9); NEUT # 4.6 x10^3uL (1.8-7.7); NEUT % 59 % (31-73); PLATELET COUNT 358 x10^3/uL (140-400); RED BLOOD COUNT 3.47 x10^6/uL (3.50-5.40); RED CELL DISTRIBUTION WIDTH 19.5 % (11.5-14.5); WHITE BLOOD COUNT 7.9 x10^3/uL (4.0-11.0)
[2018-07-10 08:27] LABS: CALCIUM 8.2 mg/dL (8.5-10.1); CREATININE 11.4 mg/dL (0.6-1.0); GFR 4.2
--- NOTE | 2018-07-10 12:37 | PDOC2 ---
CONSULT Date of Consult Date of Consult DATE: 07/10/18 TIME: 12:37 Reason for Consult Reason for Consult: ESRD Source Source: Chart review, Patient History of Present Illness Reason for Visit: Pt is a 58 year old AAF w/ ESRD on HD MWF admitted from ER with acute abdominal pain, nausea, and vomiting as a well as cough, feeling badly. She missed her HD on Monday Leukocytosis 14K and CXR with right lower lobe possible infiltrate Seen on HD tolerating well. No complaints this am. Hx of Non compliance and Leaving AMA Past Medical History Cardiovascular: CHF, HTN, Hyperlipidemia Pulmonary: Asthma, COPD CENTRAL NERVOUS SYSTEM: Periperal neuropathy GI: No pertinent hx Heme/Onc: No pertinent hx Hepatobiliary: No pertinent hx Psych: Anxiety Rheumatologic: Fibromyalgia Infectious disease: No pertinent hx Renal/: Chronic renal failure Endocrine: Diabetes, Hypothyroidism, Hyperparathyroidism Past Surgical History Past Surgical History: No pertinent history Family History Family History: Other (noncontributory) Social History ALCOHOL: other Drugs: Cocaine, Marijuana Lives: with Family Current Problem List Problem List Problems Medical Problems: (1) Accelerated hypertension Status: Acute (2) Chronic back pain Status: Acute (3) Non-ST elevation [place] (NSTEMI) Status: Acute (4) Right lower lobe pulmonary infiltrate Status: Acute Current Medications Current Medications Current Medications Ondansetron HCl (Zofran) 4 mg 1X ONCE IV Last administered on 07/09/18 11:39 ; Start 07/09/18 at 09:45; Stop 07/09/18 at 09:46; Status DC Famotidine (Pepcid Vial) 20 mg 1X ONCE IVP Last administered on 07/09/18at 11: 41; Start 07/09/18 at 09:45; Stop 07/09/18 at 09:46; Status DC Ceftriaxone Sodium (Rocephin) 1 gm 1X ONCE IVP Last administered on 07/09/18 11:58; Start 07/09/18 at 11:00; Stop 07/09/18 at 11:01; Status DC Vancomycin HCl (Vanco Per Pharmacy) 1 each PRN DAILY PRN MC SEE COMMENTS Last administered on 07/09/18at 17:11; Start 07/09/18 at 11:00 Vancomycin HCl 1.25 gm/Sodium Chloride 250 ml @ 166.667 mls/hr 1X ONCE IV Last administered on 4/15/19at 12:01; Start 07/09/18 at 11:00; Stop 07/09/18 at 12:29; Status DC Fentanyl Citrate (Fentanyl 2ml Vial) 50 mcg 1X ONCE IV Last administered on at 11:55; Start 07/09/18 at 12:00; Stop 07/09/18 at 12:01; Status DC Clonidine HCl (Catapres) 0.3 mg 1X ONCE PO Last administered on 07/09/18at 13: 01; Start 07/09/18 at 12:15; Stop 07/09/18 at 12:16; Status DC Labetalol HCl (Normodyne Iv Push) 10 mg 1X ONCE IVP Last administered on at 13:02; Start 07/09/18 at 12:15; Stop 07/09/18 at 12:16; Status DC Ondansetron HCl (Zofran) 4 mg PRN Q8HRS PRN IV NAUSEA/VOMITING; Start 07/09/18 at 13:00; Stop 07/10/18 at 07:22; Status DC Fentanyl Citrate (Fentanyl 2ml Vial) 50 mcg PRN Q1HR PRN IV PAIN Last administered on 07/09/18at 15:35; Start 07/09/18 at 13:00; Stop 07/09/18 at 17:25 ; Status DC Acetaminophen (Tylenol) 650 mg PRN Q4HRS PRN PO FEVER; Start 07/09/18 at 13:00 ; Stop 07/10/18 at 07:22; Status DC Albuterol Sulfate (Ventolin Neb Soln) 2.5 mg BID PRN INH SHORTNESS OF BREATH; Start 07/09/18 at 14:45 Alprazolam (Xanax) 0.5 mg PRN TID PRN PO ANXIETY / AGITATION Last administered on 07/09/18at 20:23; Start 07/09/18 at 14:45 Amlodipine Besylate (Norvasc) 10 mg DAILY PO ; Start 07/09/18 at 16:00 Atorvastatin Calcium (Lipitor) 40 mg HS PO ; Start 07/09/18 at 21:00 Carvedilol (Coreg) 6.25 mg BIDWMEALS PO Last administered on 07/09/18at 15:47; Start 07/09/18 at 17:00; Stop 07/09/18 at 17:00; Status DC Clonidine HCl (Catapres Tts-2) 1 patch WEEKLY TD Last administered on at 15:47; Start 07/09/18 at 15:45 Lisinopril (Prinivil) 20 mg DAILY PO Last administered on 07/09/18at 15:43; Start 07/09/18 at 16:00 Sertraline HCl (Zoloft) 50 mg DAILY PO ; Start 07/10/18 at 09:00 Latanoprost (Xalatan) 1 drop QHS OU Last administered on 07/09/18at 20:30; Start 07/09/18 at 21:00 Levothyroxine Sodium (Synthroid) 50 mcg DAILY06 PO Last administered on 06:21; Start 07/10/18 at 06:00 Amylase/Lipase/ Protease (Zenpep 5,000) 1 cap TIDWMEALS PO ; Start 07/09/18 at 17:00 Pantoprazole Sodium (Protonix) 40 mg DAILYAC PO Last administered on 07/09/18at 15:49; Start 07/09/18 at 16:00 Ondansetron HCl (Zofran) 4 mg PRN Q6HRS PRN IV NAUSEA/VOMITING; Start 07/09/18 at 14:45 Acetaminophen/ Hydrocodone Bitart (Lortab 5/325) 1 tab PRN Q4HRS PRN PO MILD PAIN Last administered on 07/10/18at 02:54; Start 07/09/18 at 14:45 Acetaminophen (Tylenol) 650 mg PRN Q6HRS PRN PO Headaches, Temp > 101.5F; Start 07/09/18 at 14:45 Senna/Docusate Sodium (Senna Plus) 1 tab BID PO Last administered on 07/09/18at 20:23; Start 07/09/18 at 21:00 Lactulose (Lactulose) 20 gm PRN Q12HR PRN PO CONSTIPATION; Start 07/09/18 at 14 :45 Heparin Sodium (Porcine) (Heparin Sodium) 5,000 unit Q8HRS SQ Last administered on 07/10/18at 06:00; Start 07/09/18 at 22:00 Labetalol HCl (Normodyne Iv Push) 10 mg PRN Q4HRS PRN IVP HYPERTENSION, SEE COMMENTS; Start 07/09/18 at 14:45 Cefepime HCl (Maxipime) 1 gm Q24H IVP Last administered on 07/09/18at 20:30; Start 07/09/18 at 21:00 Labetalol HCl (Trandate) 200 mg BID PO Last administered on 07/09/18at 20:22; Start 07/09/18 at 16:15 Fentanyl Citrate (Fentanyl 2ml Vial) 50 mcg PRN Q3HRS PRN IV PAIN Last administered on 07/10/18at 10:16; Start 07/09/18 at 17:30 Sodium Chloride 1,000 ml @ 1,000 mls/hr Q1H PRN IV hypotension; Start 07/10/18 at 07:14; Stop 07/10/18 at 13:13 Albumin Human 200 ml @ 200 mls/hr 1X PRN PRN IV Hypotension; Start 07/10/18 at 07:15; Stop 07/10/18 at 13:14 Acetaminophen (Tylenol) 500 mg 1X PRN PRN PO MILD PAIN / TEMP; Start 07/10/18 at 07:15; Stop 07/11/18 at 07:14 Diphenhydramine HCl (Benadryl) 25 mg 1X PRN PRN IV ITCHING Last administered on 07/10/18at 10:36; Start 07/10/18 at 07:15; Stop 07/11/18 at 07:14 Diphenhydramine HCl (Benadryl) 25 mg 1X PRN PRN IV ITCHING Last administered on 07/10/18at 10:50; Start 07/10/18 at 07:15; Stop 07/11/18 at 07:14 Sodium Chloride (Normal Saline Flush) 10 ml 1X PRN PRN IV AP catheter pack; Start 07/10/18 at 07:15; Stop 07/11/18 at 07:14 Sodium Chloride (Normal Saline Flush) 10 ml 1X PRN PRN IV 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; Start 07/10/18 at 07:15; Stop 07/11/18 at 07:14 Sodium Chloride 1,000 ml @ 400 mls/hr Q2H30M PRN IV PATENCY; Start 07/10/18 at 07:14; Stop 07/10/18 at 19:13 Info (PHARMACY MONITORING -- do not chart) 1 each PRN DAILY PRN MC SEE COMMENTS ; Start 07/10/18 at 07:15 Lactobacillus Rhamnosus (Culturelle) 1 cap BID PO ; Start 07/10/18 at 09:00 Active Scripts Active Alprazolam 0.5 Mg Tablet 0.5 Mg PO PRN TID PRN MDD 1 [Pantoprazole] 40 MG Tablet.dr 40 Mg PO DAILYAC 30 Days Reported Percocet 5-325 Mg Tablet (Oxycodone/Acetaminophen) 1 Each Tablet 1 Tab PO Q4HRS PRN Zoloft (Sertraline Hcl) 50 Mg Tablet 50 Mg PO DAILY Lisinopril 20 Mg Tablet 20 Mg PO DAILY Coreg (Carvedilol) 6.25 Mg Tablet 6.25 Mg PO BIDWMEALS Creon 6,000 Units Capsule (Lipase/Protease/Amylase) 1 Each Capsule.dr 1 Tab PO TID Proair Hfa (Albuterol Sulfate) 8.5 Gm Hfa.aer.ad 2 Puff INH BID PRN Levothyroxine Sodium 50 Mcg Tablet 1 Tab PO DAILY Clonidine Tts-2 (Clonidine) 1 Each Patch.tdwk 1 Patch TD WEEKLY Amlodipine Besylate 5 Mg Tablet 10 Mg PO DAILY Atorvastatin Calcium 40 Mg Tablet 40 Mg PO HS Latanoprost 2.5 Ml Drops 1 Drop EACHEYE HS Allergies Allergies: Coded Allergies: morphine (Verified Allergy, Intermediate, Itching, 03/27/18) ROS Review of System As per HPI Physical Exam Physical Exam General: No acute distress HEENT: OM moist Neck Supple Lungs: CTA, Non labored Heart: S1S2, RRR Extremities: No clubbing, No cyanosis, No edema, Skin: No rashes, Neuro: Grossly normal - No Calvillo, No CVA or SP tenderness Skin No rash Vital Signs Vital Signs Date Time Temp Pulse Resp B/P (MAP) Pulse Ox O2 Delivery O2 Flow Rate FiO2 07/10/18 10:16 100 Room Air 07/10/18 07:37 97.7 71 16 162/75 (104) 97.7 Assessment & Plan ESRD - On HD MWF Missed on Monday and Yesterday Dialyses today, seen on HD , tolerating well 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 , 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 HTN urgency - coreg converted to labetolol RLL infiltrate - On Abx for HCAP as per ID Anemia - of chronic renal disease, stable Abdominal Pain : resolving Labs Labs Laboratory Tests Test 07/09/18 10:28 07/09/18 11:15 07/09/18 15:15 07/09/18 18:50 Influenza Type A Antigen Negative (NEGATIVE) Influenza Type B Antigen Negative (NEGATIVE) White Blood Count 14.4 x10^3/uL (4.0-11.0) Red Blood Count 4.15 x10^6/uL (3.50-5.40) Hemoglobin 11.9 g/dL (12.0-15.5) Hematocrit 36.5 % (36.0-47.0) Mean Corpuscular Volume 88 fL (79-100) Mean Corpuscular Hemoglobin 29 pg (25-35) Mean Corpuscular Hemoglobin Concent 33 g/dL (31-37) Red Cell Distribution Width 19.3 % (11.5-14.5) Platelet Count 441 x10^3/uL (140-400) Neutrophils (%) (Auto) 90 % (31-73) Lymphocytes (%) (Auto) 6 % (24-48) Monocytes (%) (Auto) 3 % (0-9) Eosinophils (%) (Auto) 0 % (0-3) Basophils (%) (Auto) 1 % (0-3) Neutrophils # (Auto) 13.0 x10^3uL (1.8-7.7) Lymphocytes # (Auto) 0.9 x10^3/uL (1.0-4.8) Monocytes # (Auto) 0.4 x10^3/uL (0.0-1.1) Eosinophils # (Auto) 0.0 x10^3/uL (0.0-0.7) Basophils # (Auto) 0.1 x10^3/uL (0.0-0.2) Segmented Neutrophils % 90 % (35-66) Band Neutrophils % 2 % (0-9) Lymphocytes % 6 % (24-48) Monocytes % 2 % (0-10) Platelet Estimate Increased (ADEQUATE) Sodium Level 145 mmol/L (136-145) Potassium Level 3.8 mmol/L (3.5-5.1) Chloride Level 99 mmol/L (98-107) Carbon Dioxide Level 28 mmol/L (21-32) Anion Gap 18 (6-14) Blood Urea Nitrogen 71 mg/dL (7-20) Creatinine 11.2 mg/dL (0.6-1.0) Estimated GFR (Cockcroft-Gault) 4.3 BUN/Creatinine Ratio 6 (6-20) Glucose Level 122 mg/dL (70-99) Lactic Acid Level 1.2 mmol/L (0.4-2.0) Calcium Level 9.2 mg/dL (8.5-10.1) Magnesium Level 2.8 mg/dL (1.8-2.4) Total Bilirubin 0.6 mg/dL (0.2-1.0) Aspartate Amino Transf (AST/SGOT) 39 U/L (15-37) Alanine Aminotransferase (ALT/SGPT) 32 U/L (14-59) Alkaline Phosphatase 90 U/L (46-116) Creatine Kinase 174 U/L (26-192) Creatine Kinase MB (Mass) 5.3 ng/mL (0.0-3.6) Creatine Kinase MB Relative Index 3.0 % (0-4) Troponin I Quantitative 0.166 ng/mL (0.000-0.055) 0.252 ng/mL (0.000-0.055) 0.320 ng/mL (0.000-0.055) XN-Zcf-C-Type Natriuretic Peptide > 93826 pg/mL (0-124) Total Protein 7.3 g/dL (6.4-8.2) Albumin 3.8 g/dL (3.4-5.0) Albumin/Globulin Ratio 1.1 (1.0-1.7) Lipase 288 U/L (73-393) Thyroid Stimulating Hormone (TSH) 2.120 uIU/mL (0.358-3.74) Test 07/10/18 07:50 White Blood Count 7.9 x10^3/uL (4.0-11.0) Red Blood Count 3.47 x10^6/uL (3.50-5.40) Hemoglobin 10.1 g/dL (12.0-15.5) Hematocrit 30.9 % (36.0-47.0) Mean Corpuscular Volume 89 fL (79-100) Mean Corpuscular Hemoglobin 29 pg (25-35) Mean Corpuscular Hemoglobin Concent 33 g/dL (31-37) Red Cell Distribution Width 19.5 % (11.5-14.5) Platelet Count 358 x10^3/uL (140-400) Neutrophils (%) (Auto) 59 % (31-73) Lymphocytes (%) (Auto) 32 % (24-48) Monocytes (%) (Auto) 8 % (0-9) Eosinophils (%) (Auto) 1 % (0-3) Basophils (%) (Auto) 1 % (0-3) Neutrophils # (Auto) 4.6 x10^3uL (1.8-7.7) Lymphocytes # (Auto) 2.5 x10^3/uL (1.0-4.8) Monocytes # (Auto) 0.6 x10^3/uL (0.0-1.1) Eosinophils # (Auto) 0.0 x10^3/uL (0.0-0.7) Basophils # (Auto) 0.1 x10^3/uL (0.0-0.2) Sodium Level 136 mmol/L (136-145) Potassium Level 4.0 mmol/L (3.5-5.1) Chloride Level 95 mmol/L (98-107) Carbon Dioxide Level 26 mmol/L (21-32) Anion Gap 15 (6-14) Blood Urea Nitrogen 75 mg/dL (7-20) Creatinine 11.4 mg/dL (0.6-1.0) Estimated GFR (Cockcroft-Gault) 4.2 Glucose Level 93 mg/dL (70-99) Calcium Level 8.2 mg/dL (8.5-10.1) Random Vancomycin Level 18.1 mcg/mL Laboratory Tests Test 07/09/18 15:15 07/09/18 18:50 07/10/18 07:50 Troponin I Quantitative 0.252 ng/mL (0.000-0.055) 0.320 ng/mL (0.000-0.055) White Blood Count 7.9 x10^3/uL (4.0-11.0) Red Blood Count 3.47 x10^6/uL (3.50-5.40) Hemoglobin 10.1 g/dL (12.0-15.5) Hematocrit 30.9 % (36.0-47.0) Mean Corpuscular Volume 89 fL (79-100) Mean Corpuscular Hemoglobin 29 pg (25-35) Mean Corpuscular Hemoglobin Concent 33 g/dL (31-37) Red Cell Distribution Width 19.5 % (11.5-14.5) Platelet Count 358 x10^3/uL (140-400) Neutrophils (%) (Auto) 59 % (31-73) Lymphocytes (%) (Auto) 32 % (24-48) Monocytes (%) (Auto) 8 % (0-9) Eosinophils (%) (Auto) 1 % (0-3) Basophils (%) (Auto) 1 % (0-3) Neutrophils # (Auto) 4.6 x10^3uL (1.8-7.7) Lymphocytes # (Auto) 2.5 x10^3/uL (1.0-4.8) Monocytes # (Auto) 0.6 x10^3/uL (0.0-1.1) Eosinophils # (Auto) 0.0 x10^3/uL (0.0-0.7) Basophils # (Auto) 0.1 x10^3/uL (0.0-0.2) Sodium Level 136 mmol/L (136-145) Potassium Level 4.0 mmol/L (3.5-5.1) Chloride Level 95 mmol/L (98-107) Carbon Dioxide Level 26 mmol/L (21-32) Anion Gap 15 (6-14) Blood Urea Nitrogen 75 mg/dL (7-20) Creatinine 11.4 mg/dL (0.6-1.0) Estimated GFR (Cockcroft-Gault) 4.2 Glucose Level 93 mg/dL (70-99) Calcium Level 8.2 mg/dL (8.5-10.1) Random Vancomycin Level 18.1 mcg/mL Review All relevant outside records, renal labs, imaging studies, telemetry/EKG's were reviewed. Images Images CxR-- 1. There is increased airspace opacity of the right lung base and right infrahilar region which may be due to infiltrate or asymmetric edema. DOMINIQUE TSE MD Jul 10, 2018 12:37
--- NOTE | 2018-07-10 12:57 | NUR ---
SS following for discharge planning. SS reviewed pt chart. Pt is from home and is currently on room air. No discharge needs noted at this time. SS will continue to follow for pending discharge needs.
[2018-07-10] MEDS: LACTOBACILLUS RHAMNOSUS GG 1 CAPSULE. PO SCH ×2 (12:59→20:59)
[2018-07-10] MEDS: amLODIPine BESYLATE 5 MG TABLET PO SCH (13:01)
[2018-07-10] MEDS: LISINOPRIL 20 MG TABLET PO SCH (13:02)
[2018-07-10] MEDS: SENNOSIDES/DOCUSATE 8.6/50MG TABLET. PO SCH ×2 (13:03→20:58)
[2018-07-10] MEDS: PANTOPRAZOLE 40 MG TABLET.DR. PO SCH (13:03)
[2018-07-10] MEDS: SERTRALINE 50 MG TABLET. PO SCH (13:03)
--- NOTE | 2018-07-10 13:09 | PDOC ---
Provider Note Provider Note Pt seen and examined consult dictated Thank you SHANDA YATES MD Jul 10, 2018 13:09
--- NOTE | 2018-07-10 13:49 | PDOC ---
PROGRESS NOTES Chief Complaint Chief Complaint A/P: HTN urgency - coreg converted to labetolol RLL infiltrate - will treat as HCAP given her dialysis status, Cefepime, had vanco x1, will screen for MRSA. ID consulted ESRD - need dialysis regularly outpatient. Consulted nephrology Anemia - of chronic renal disease, will f/u outpatient CBC at dialysis, asymptomatic HTN - Monitor Sepsis - f/u cultures, treating as HCAP, will consult ID as she frequently has SIRS Troponin elevation - likely 2/2 demand, chronic. cards consulted. Most probably MSK in origin. Recent stress test without any evidence of ischemia or infarct. initial 0.166. multifactorial, demand mediated type 2 in the setting of ESRD Anasarca - f/u on possible esophageal mass biopsy nausea vomiting and abdominal pain: resolving hypothyroidism: on replacement therapy FEN - Renal diet PPX - heparin FULL CODE Inpatient for at least 2 midnights for likely HCAP History of Present Illness History of Present Illness seen in HD improving. no complaints. denies chest pain sob nausea vomiting diarrhea Vitals Vitals Vital Signs Date Time Temp Pulse Resp B/P (MAP) Pulse Ox O2 Delivery O2 Flow Rate FiO2 07/10/18 13:34 100 Room Air 07/10/18 13:02 84 176/83 07/10/18 07:37 97.7 16 97.7 Physical Exam General: Alert, Cooperative, No acute distress Lungs: Clear, Other Extremities: No clubbing, No cyanosis, No edema, Normal pulses, No tenderness/ swelling Skin: No rashes, No breakdown, No significant lesion Labs LABS Laboratory Tests Test 07/09/18 15:15 07/09/18 18:50 07/10/18 07:50 07/10/18 13:04 Troponin I Quantitative 0.252 ng/mL (0.000-0.055) 0.320 ng/mL (0.000-0.055) White Blood Count 7.9 x10^3/uL (4.0-11.0) Red Blood Count 3.47 x10^6/uL (3.50-5.40) Hemoglobin 10.1 g/dL (12.0-15.5) Hematocrit 30.9 % (36.0-47.0) Mean Corpuscular Volume 89 fL (79-100) Mean Corpuscular Hemoglobin 29 pg (25-35) Mean Corpuscular Hemoglobin Concent 33 g/dL (31-37) Red Cell Distribution Width 19.5 % (11.5-14.5) Platelet Count 358 x10^3/uL (140-400) Neutrophils (%) (Auto) 59 % (31-73) Lymphocytes (%) (Auto) 32 % (24-48) Monocytes (%) (Auto) 8 % (0-9) Eosinophils (%) (Auto) 1 % (0-3) Basophils (%) (Auto) 1 % (0-3) Neutrophils # (Auto) 4.6 x10^3uL (1.8-7.7) Lymphocytes # (Auto) 2.5 x10^3/uL (1.0-4.8) Monocytes # (Auto) 0.6 x10^3/uL (0.0-1.1) Eosinophils # (Auto) 0.0 x10^3/uL (0.0-0.7) Basophils # (Auto) 0.1 x10^3/uL (0.0-0.2) Sodium Level 136 mmol/L (136-145) Potassium Level 4.0 mmol/L (3.5-5.1) Chloride Level 95 mmol/L (98-107) Carbon Dioxide Level 26 mmol/L (21-32) Anion Gap 15 (6-14) Blood Urea Nitrogen 75 mg/dL (7-20) Creatinine 11.4 mg/dL (0.6-1.0) Estimated GFR (Cockcroft-Gault) 4.2 Glucose Level 93 mg/dL (70-99) Calcium Level 8.2 mg/dL (8.5-10.1) Random Vancomycin Level 18.1 mcg/mL Glucose (Fingerstick) 71 mg/dL (70-99) Assessment and Plan Assessmemt and Plan Problems Medical Problems: (1) Accelerated hypertension Status: Acute (2) Chronic back pain Status: Acute (3) Non-ST elevation KS (NSTEMI) Status: Acute (4) Right lower lobe pulmonary infiltrate Status: Acute Comment Review of Relevant I have reviewed the following items pamela (where applicable) has been applied. Labs Laboratory Tests Test 07/09/18 10:28 07/09/18 11:15 07/09/18 15:15 07/09/18 18:50 Influenza Type A Antigen Negative (NEGATIVE) Influenza Type B Antigen Negative (NEGATIVE) White Blood Count 14.4 x10^3/uL (4.0-11.0) Red Blood Count 4.15 x10^6/uL (3.50-5.40) Hemoglobin 11.9 g/dL (12.0-15.5) Hematocrit 36.5 % (36.0-47.0) Mean Corpuscular Volume 88 fL (79-100) Mean Corpuscular Hemoglobin 29 pg (25-35) Mean Corpuscular Hemoglobin Concent 33 g/dL (31-37) Red Cell Distribution Width 19.3 % (11.5-14.5) Platelet Count 441 x10^3/uL (140-400) Neutrophils (%) (Auto) 90 % (31-73) Lymphocytes (%) (Auto) 6 % (24-48) Monocytes (%) (Auto) 3 % (0-9) Eosinophils (%) (Auto) 0 % (0-3) Basophils (%) (Auto) 1 % (0-3) Neutrophils # (Auto) 13.0 x10^3uL (1.8-7.7) Lymphocytes # (Auto) 0.9 x10^3/uL (1.0-4.8) Monocytes # (Auto) 0.4 x10^3/uL (0.0-1.1) Eosinophils # (Auto) 0.0 x10^3/uL (0.0-0.7) Basophils # (Auto) 0.1 x10^3/uL (0.0-0.2) Segmented Neutrophils % 90 % (35-66) Band Neutrophils % 2 % (0-9) Lymphocytes % 6 % (24-48) Monocytes % 2 % (0-10) Platelet Estimate Increased (ADEQUATE) Sodium Level 145 mmol/L (136-145) Potassium Level 3.8 mmol/L (3.5-5.1) Chloride Level 99 mmol/L (98-107) Carbon Dioxide Level 28 mmol/L (21-32) Anion Gap 18 (6-14) Blood Urea Nitrogen 71 mg/dL (7-20) Creatinine 11.2 mg/dL (0.6-1.0) Estimated GFR (Cockcroft-Gault) 4.3 BUN/Creatinine Ratio 6 (6-20) Glucose Level 122 mg/dL (70-99) Lactic Acid Level 1.2 mmol/L (0.4-2.0) Calcium Level 9.2 mg/dL (8.5-10.1) Magnesium Level 2.8 mg/dL (1.8-2.4) Total Bilirubin 0.6 mg/dL (0.2-1.0) Aspartate Amino Transf (AST/SGOT) 39 U/L (15-37) Alanine Aminotransferase (ALT/SGPT) 32 U/L (14-59) Alkaline Phosphatase 90 U/L (46-116) Creatine Kinase 174 U/L (26-192) Creatine Kinase MB (Mass) 5.3 ng/mL (0.0-3.6) Creatine Kinase MB Relative Index 3.0 % (0-4) Troponin I Quantitative 0.166 ng/mL (0.000-0.055) 0.252 ng/mL (0.000-0.055) 0.320 ng/mL (0.000-0.055) TF-Lqc-X-Type Natriuretic Peptide > 65793 pg/mL (0-124) Total Protein 7.3 g/dL (6.4-8.2) Albumin 3.8 g/dL (3.4-5.0) Albumin/Globulin Ratio 1.1 (1.0-1.7) Lipase 288 U/L (73-393) Thyroid Stimulating Hormone (TSH) 2.120 uIU/mL (0.358-3.74) Test 07/10/18 07:50 07/10/18 13:04 White Blood Count 7.9 x10^3/uL (4.0-11.0) Red Blood Count 3.47 x10^6/uL (3.50-5.40) Hemoglobin 10.1 g/dL (12.0-15.5) Hematocrit 30.9 % (36.0-47.0) Mean Corpuscular Volume 89 fL (79-100) Mean Corpuscular Hemoglobin 29 pg (25-35) Mean Corpuscular Hemoglobin Concent 33 g/dL (31-37) Red Cell Distribution Width 19.5 % (11.5-14.5) Platelet Count 358 x10^3/uL (140-400) Neutrophils (%) (Auto) 59 % (31-73) Lymphocytes (%) (Auto) 32 % (24-48) Monocytes (%) (Auto) 8 % (0-9) Eosinophils (%) (Auto) 1 % (0-3) Basophils (%) (Auto) 1 % (0-3) Neutrophils # (Auto) 4.6 x10^3uL (1.8-7.7) Lymphocytes # (Auto) 2.5 x10^3/uL (1.0-4.8) Monocytes # (Auto) 0.6 x10^3/uL (0.0-1.1) Eosinophils # (Auto) 0.0 x10^3/uL (0.0-0.7) Basophils # (Auto) 0.1 x10^3/uL (0.0-0.2) Sodium Level 136 mmol/L (136-145) Potassium Level 4.0 mmol/L (3.5-5.1) Chloride Level 95 mmol/L (98-107) Carbon Dioxide Level 26 mmol/L (21-32) Anion Gap 15 (6-14) Blood Urea Nitrogen 75 mg/dL (7-20) Creatinine 11.4 mg/dL (0.6-1.0) Estimated GFR (Cockcroft-Gault) 4.2 Glucose Level 93 mg/dL (70-99) Calcium Level 8.2 mg/dL (8.5-10.1) Random Vancomycin Level 18.1 mcg/mL Glucose (Fingerstick) 71 mg/dL (70-99) Laboratory Tests Test 07/09/18 15:15 07/09/18 18:50 07/10/18 07:50 07/10/18 13:04 Troponin I Quantitative 0.252 ng/mL (0.000-0.055) 0.320 ng/mL (0.000-0.055) White Blood Count 7.9 x10^3/uL (4.0-11.0) Red Blood Count 3.47 x10^6/uL (3.50-5.40) Hemoglobin 10.1 g/dL (12.0-15.5) Hematocrit 30.9 % (36.0-47.0) Mean Corpuscular Volume 89 fL (79-100) Mean Corpuscular Hemoglobin 29 pg (25-35) Mean Corpuscular Hemoglobin Concent 33 g/dL (31-37) Red Cell Distribution Width 19.5 % (11.5-14.5) Platelet Count 358 x10^3/uL (140-400) Neutrophils (%) (Auto) 59 % (31-73) Lymphocytes (%) (Auto) 32 % (24-48) Monocytes (%) (Auto) 8 % (0-9) Eosinophils (%) (Auto) 1 % (0-3) Basophils (%) (Auto) 1 % (0-3) Neutrophils # (Auto) 4.6 x10^3uL (1.8-7.7) Lymphocytes # (Auto) 2.5 x10^3/uL (1.0-4.8) Monocytes # (Auto) 0.6 x10^3/uL (0.0-1.1) Eosinophils # (Auto) 0.0 x10^3/uL (0.0-0.7) Basophils # (Auto) 0.1 x10^3/uL (0.0-0.2) Sodium Level 136 mmol/L (136-145) Potassium Level 4.0 mmol/L (3.5-5.1) Chloride Level 95 mmol/L (98-107) Carbon Dioxide Level 26 mmol/L (21-32) Anion Gap 15 (6-14) Blood Urea Nitrogen 75 mg/dL (7-20) Creatinine 11.4 mg/dL (0.6-1.0) Estimated GFR (Cockcroft-Gault) 4.2 Glucose Level 93 mg/dL (70-99) Calcium Level 8.2 mg/dL (8.5-10.1) Random Vancomycin Level 18.1 mcg/mL Glucose (Fingerstick) 71 mg/dL (70-99) Microbiology 07/09/18 Blood Culture - Preliminary, Resulted NO GROWTH AFTER 1 DAY Medications Current Medications Ondansetron HCl (Zofran) 4 mg 1X ONCE IV Last administered on 07/09/18at 11:39 ; Start 07/09/18 at 09:45; Stop 07/09/18 at 09:46; Status DC Famotidine (Pepcid Vial) 20 mg 1X ONCE IVP Last administered on 07/09/18at 11: 41; Start 07/09/18 at 09:45; Stop 07/09/18 at 09:46; Status DC Ceftriaxone Sodium (Rocephin) 1 gm 1X ONCE IVP Last administered on 07/09/18at 11:58; Start 07/09/18 at 11:00; Stop 07/09/18 at 11:01; Status DC Vancomycin HCl (Vanco Per Pharmacy) 1 each PRN DAILY PRN MC SEE COMMENTS Last administered on 07/09/18at 17:11; Start 07/09/18 at 11:00 Vancomycin HCl 1.25 gm/Sodium Chloride 250 ml @ 166.667 mls/hr 1X ONCE IV Last administered on 07/09/18at 12:01; Start 07/09/18 at 11:00; Stop 07/09/18 at 12:29; Status DC Fentanyl Citrate (Fentanyl 2ml Vial) 50 mcg 1X ONCE IV Last administered on at 11:55; Start 07/09/18 at 12:00; Stop 07/09/18 at 12:01; Status DC Clonidine HCl (Catapres) 0.3 mg 1X ONCE PO Last administered on 07/09/18at 13: 01; Start 07/09/18 at 12:15; Stop 07/09/18 at 12:16; Status DC Labetalol HCl (Normodyne Iv Push) 10 mg 1X ONCE IVP Last administered on at 13:02; Start 07/09/18 at 12:15; Stop 07/09/18 at 12:16; Status DC Ondansetron HCl (Zofran) 4 mg PRN Q8HRS PRN IV NAUSEA/VOMITING; Start 07/09/18 at 13:00; Stop 07/10/18 at 07:22; Status DC Fentanyl Citrate (Fentanyl 2ml Vial) 50 mcg PRN Q1HR PRN IV PAIN Last administered on 07/09/18at 15:35; Start 07/09/18 at 13:00; Stop 07/09/18 at 17:25 ; Status DC Acetaminophen (Tylenol) 650 mg PRN Q4HRS PRN PO FEVER; Start 07/09/18 at 13:00 ; Stop 07/10/18 at 07:22; Status DC Albuterol Sulfate (Ventolin Neb Soln) 2.5 mg BID PRN INH SHORTNESS OF BREATH; Start 07/09/18 at 14:45 Alprazolam (Xanax) 0.5 mg PRN TID PRN PO ANXIETY / AGITATION Last administered on 07/09/18 20:23; Start 07/09/18 at 14:45 Amlodipine Besylate (Norvasc) 10 mg DAILY PO Last administered on 07/10/18 13: 01; Start 07/09/18 at 16:00 Atorvastatin Calcium (Lipitor) 40 mg HS PO ; Start 07/09/18 at 21:00 Carvedilol (Coreg) 6.25 mg BIDWMEALS PO Last administered on 07/09/18 15:47; Start 07/09/18 at 17:00; Stop 07/09/18 at 17:00; Status DC Clonidine HCl (Catapres Tts-2) 1 patch WEEKLY TD Last administered on 15:47; Start 07/09/18 at 15:45 Lisinopril (Prinivil) 20 mg DAILY PO Last administered on 07/10/18 13:02; Start 07/09/18 at 16:00 Sertraline HCl (Zoloft) 50 mg DAILY PO Last administered on 07/10/18 13:03; Start 07/10/18 at 09:00 Latanoprost (Xalatan) 1 drop QHS OU Last administered on 07/09/18 20:30; Start 07/09/18 at 21:00 Levothyroxine Sodium (Synthroid) 50 mcg DAILY06 PO Last administered on 06:21; Start 07/10/18 at 06:00 Amylase/Lipase/ Protease (Zenpep 5,000) 1 cap TIDWMEALS PO Last administered on 07/10/18 13:03; Start 07/09/18 at 17:00 Pantoprazole Sodium (Protonix) 40 mg DAILYAC PO Last administered on 07/10/18 13:03; Start 07/09/18 at 16:00 Ondansetron HCl (Zofran) 4 mg PRN Q6HRS PRN IV NAUSEA/VOMITING; Start 07/09/18 at 14:45 Acetaminophen/ Hydrocodone Bitart (Lortab 5/325) 1 tab PRN Q4HRS PRN PO MILD PAIN Last administered on 07/10/18 13:03; Start 07/09/18 at 14:45 Acetaminophen (Tylenol) 650 mg PRN Q6HRS PRN PO Headaches, Temp > 101.5F; Start 07/09/18 at 14:45 Senna/Docusate Sodium (Senna Plus) 1 tab BID PO Last administered on 07/10/18at 13:03; Start 07/09/18 at 21:00 Lactulose (Lactulose) 20 gm PRN Q12HR PRN PO CONSTIPATION; Start 07/09/18 at 14 :45 Heparin Sodium (Porcine) (Heparin Sodium) 5,000 unit Q8HRS SQ Last administered on 07/10/18at 06:00; Start 07/09/18 at 22:00 Labetalol HCl (Normodyne Iv Push) 10 mg PRN Q4HRS PRN IVP HYPERTENSION, SEE COMMENTS; Start 07/09/18 at 14:45 Cefepime HCl (Maxipime) 1 gm Q24H IVP Last administered on 07/09/18at 20:30; Start 07/09/18 at 21:00 Labetalol HCl (Trandate) 200 mg BID PO Last administered on 07/09/18at 20:22; Start 07/09/18 at 16:15 Fentanyl Citrate (Fentanyl 2ml Vial) 50 mcg PRN Q3HRS PRN IV PAIN Last administered on 07/10/18at 13:34; Start 07/09/18 at 17:30 Sodium Chloride 1,000 ml @ 1,000 mls/hr Q1H PRN IV hypotension; Start 07/10/18 at 07:14; Stop 07/10/18 at 13:13; Status DC Albumin Human 200 ml @ 200 mls/hr 1X PRN PRN IV Hypotension; Start 07/10/18 at 07:15; Stop 07/10/18 at 13:14; Status DC Acetaminophen (Tylenol) 500 mg 1X PRN PRN PO MILD PAIN / TEMP; Start 07/10/18 at 07:15; Stop 07/11/18 at 07:14 Diphenhydramine HCl (Benadryl) 25 mg 1X PRN PRN IV ITCHING Last administered on 07/10/18at 10:36; Start 07/10/18 at 07:15; Stop 07/11/18 at 07:14 Diphenhydramine HCl (Benadryl) 25 mg 1X PRN PRN IV ITCHING Last administered on 4/16/19at 10:50; Start 07/10/18 at 07:15; Stop 07/11/18 at 07:14 Sodium Chloride (Normal Saline Flush) 10 ml 1X PRN PRN IV AP catheter pack; Start 07/10/18 at 07:15; Stop 07/11/18 at 07:14 Sodium Chloride (Normal Saline Flush) 10 ml 1X PRN PRN 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 40 Mg PO DAILYAC 30 Days Reported Percocet 5-325 Mg Tablet (Oxycodone/Acetaminophen) 1 Each Tablet 1 Tab PO Q4HRS PRN Zoloft (Sertraline Hcl) 50 Mg Tablet 50 Mg PO DAILY Lisinopril 20 Mg Tablet 20 Mg PO DAILY Coreg (Carvedilol) 6.25 Mg Tablet 6.25 Mg PO BIDWMELORENA Frey Dr 6,000 Units Capsule (Lipase/Protease/Amylase) 1 Each Capsule. 1 Tab PO TID Proair Hfa (Albuterol Sulfate) 8.5 Gm Hfa.aer.ad 2 Puff INH BID PRN Levothyroxine Sodium 50 Mcg Tablet 1 Tab PO DAILY Clonidine Tts-2 (Clonidine) 1 Each Patch.tdwk 1 Patch TD WEEKLY Amlodipine Besylate 5 Mg Tablet 10 Mg PO DAILY Atorvastatin Calcium 40 Mg Tablet 40 Mg PO HS Latanoprost 2.5 Ml Drops 1 Drop EACHEYE HS Vitals/I & O Vital Sign - Last 24 Hours 4/15/19 4/15/19 4/15/19 4/15/19 14:30 15:25 15:30 15:35 Pulse 98 97 Resp 16 16 B/P (MAP) 209/87 (127) 230/111 (150) Pulse Ox 98 O2 Delivery Room Air Room Air Room Air 07/09/18 07/09/18 07/09/18 07/09/18 15:43 15:47 16:00 16:05 Temp 98.2 98.2 Pulse 96 96 77 Resp 20 16 B/P (MAP) 230/111 230/111 194/85 (121) Pulse Ox 96 O2 Delivery Room Air Room Air 07/09/18 07/09/18 07/09/18 07/09/18 16:15 16:31 16:44 16:46 Pulse 91 84 B/P (MAP) 237/106 209/95 (133) 199/86 (123) O2 Delivery Room Air 07/09/18 07/09/18 07/09/18 07/09/18 17:16 17:47 18:46 18:47 Pulse 79 Resp 16 16 B/P (MAP) 193/79 (117) 167/75 (105) O2 Delivery Room Air Room Air 07/09/18 07/09/18 07/09/18 07/09/18 19:32 20:00 20:22 21:15 Temp 97.9 97.9 Pulse 71 73 Resp 18 B/P (MAP) 179/77 (111) 184/84 Pulse Ox 96 93 O2 Delivery Room Air Room Air Room Air 07/09/18 07/10/18 07/10/18 07/10/18 23:00 02:49 07:37 08:00 Temp 98.1 97.4 97.7 98.1 97.4 97.7 Pulse 69 73 71 Resp 18 18 16 B/P (MAP) 165/71 (102) 172/71 (104) 162/75 (104) Pulse Ox 97 96 100 O2 Delivery Room Air Room Air Room Air Room Air 07/10/18 07/10/18 07/10/18 07/10/18 10:16 12:45 13:01 13:02 Pulse 84 84 B/P (MAP) 176/83 176/83 Pulse Ox 100 100 O2 Delivery Room Air Room Air 07/10/18 07/10/18 13:03 13:34 Pulse Ox 100 100 O2 Delivery Room Air Room Air Intake and Output 07/09/18 07/09/18 07/10/18 15:00 23:00 07:00 Intake Total 1380 ml 700 ml Balance 1380 ml 700 ml LELA KOWALSKI MD Jul 10, 2018 13:49
[2018-07-10] MEDS ORDERED: VANCOMYCIN 500 MG in IV NORMAL SALINE 100ML 100 ML IV ONE (14:00)
[2018-07-10 15:00] VITALS: BP 181/69
[2018-07-10] MEDS: VANCOMYCIN PER PHARMACY MC PRN (16:32)
--- NOTE | 2018-07-10 16:33 | NUR ---
Pharmacy Vancomycin Dosing Note S:Consulted to monitor and dose vancomycin started 07/09/18. O:OTTONIEL SMITH is a 58 year old F with HCAP. Height: 5 feet, 2 inches Weight: 51 kg Dosing Weight: Actual Other Antibiotics: CEFEPIME 1GM Q24H LABS: Last BUN: 75 Last Creatinine: 11.4 Creatinine Clearance: ESRD on HD Last WBC: 7.9 Last Procalcitonin: ESRD Tmax (past 24 hours): 98.4 Microbiology: BLOOD CX (07/09): NGTD I/O: 2079/- Drug Levels: Last Random level: 18.7 on 07/10/18 at 0500 Last dose given 07/09/18 at 1200 Vancomycin Dosing: Loading Dose: 1250 mg x1 Dosing Weight: Actual Target Trough: 15-20 A: Patient received vancomycin 1250 mg yesterday. A pre-HD random level of 18.7 is within goal range. Patient had dialysis today, but normally dialyzes on MWF. Will order a one time dose today with a pharmacy follow-up tomorrow for HD schedule. P: 1. Give Vancomycin 500 mg IV x 1 dose 2. Follow up levels in 5 days if therapy persists 3. Pharmacy will continue to monitor, follow and adjust therapy as needed. LAUREN MCLAIN [facility], 07/10/18 [id number]
--- NOTE | 2018-07-10 17:12 | PDOC ---
CARDIO Progress Notes Date and Time Date of Service 07/10/2018 Time of Evaluation 1650 Subjective Subjective: No Chest Pain, No shortness of breath, No Palpitations Vitals Vitals Vital Signs Date Time Temp Pulse Resp B/P (MAP) Pulse Ox O2 Delivery O2 Flow Rate FiO2 07/10/18 16:38 97 Room Air 07/10/18 15:00 98.4 76 20 181/69 (106) 98.4 Weight Weight [ ] Input and Output Intake and Output Intake and Output 07/10/18 07:00 Intake Total 2080 ml Balance 2080 ml Intake Oral 2080 ml # Voids 3 Laboratory Labs Laboratory Tests Test 07/09/18 18:50 07/10/18 07:50 07/10/18 13:04 Troponin I Quantitative 0.320 ng/mL (0.000-0.055) White Blood Count 7.9 x10^3/uL (4.0-11.0) Red Blood Count 3.47 x10^6/uL (3.50-5.40) Hemoglobin 10.1 g/dL (12.0-15.5) Hematocrit 30.9 % (36.0-47.0) Mean Corpuscular Volume 89 fL (79-100) Mean Corpuscular Hemoglobin 29 pg (25-35) Mean Corpuscular Hemoglobin Concent 33 g/dL (31-37) Red Cell Distribution Width 19.5 % (11.5-14.5) Platelet Count 358 x10^3/uL (140-400) Neutrophils (%) (Auto) 59 % (31-73) Lymphocytes (%) (Auto) 32 % (24-48) Monocytes (%) (Auto) 8 % (0-9) Eosinophils (%) (Auto) 1 % (0-3) Basophils (%) (Auto) 1 % (0-3) Neutrophils # (Auto) 4.6 x10^3uL (1.8-7.7) Lymphocytes # (Auto) 2.5 x10^3/uL (1.0-4.8) Monocytes # (Auto) 0.6 x10^3/uL (0.0-1.1) Eosinophils # (Auto) 0.0 x10^3/uL (0.0-0.7) Basophils # (Auto) 0.1 x10^3/uL (0.0-0.2) Sodium Level 136 mmol/L (136-145) Potassium Level 4.0 mmol/L (3.5-5.1) Chloride Level 95 mmol/L (98-107) Carbon Dioxide Level 26 mmol/L (21-32) Anion Gap 15 (6-14) Blood Urea Nitrogen 75 mg/dL (7-20) Creatinine 11.4 mg/dL (0.6-1.0) Estimated GFR (Cockcroft-Gault) 4.2 Glucose Level 93 mg/dL (70-99) Calcium Level 8.2 mg/dL (8.5-10.1) Random Vancomycin Level 18.1 mcg/mL Glucose (Fingerstick) 71 mg/dL (70-99) Microbiology Micro Microbiology 07/09/18 Blood Culture - Preliminary, Resulted NO GROWTH AFTER 1 DAY Physical Exam HEENT: Neck Supple W Full Motion Chest: Symmetric LUNGS: Clear to Auscultation Heart: S1S2, RRR (SR) Abdomen: Soft N/T Extremities: No Calf Tenderness Neurology: alert, oriented, follow commands Assessment Assessment 1. Nausea/vomiting, abdominal pain 2. Malignant hypertension; remains labile 3. Possible HCAP 4. ESRD on HD; incomplete run on Monday and no HD today 4. NSTEMI: peaked at 0.3, likely demand mediated in the setting of above multifactorial issues 5. Acute on chronic diastolic CHF 6. Atypical CP; likely MSK 7. DM2/HLP 8. Hypothyroidism; on replacement 9. Noncompliance Recommendations Limited TTE tomorrow Increase labetolol and lisinopril in addition Fluid offloading via HD as per nephrology ASA and lipitor. Once acute extracardiac issues are reolved and CP persist then will consider for further ischemic w/u. normal MPI noted on 02/2018 Reinforced compliance ALLISON NASCIMENTO COMPOSITE ENGINEER Jul 10, 2018 17:12
[2018-07-10] MEDS ORDERED: LISINOPRIL 10 MG TABLET PO ONE (17:15)
[2018-07-10 19:10] VITALS: BP 155/60
[2018-07-10] MEDS: ATORVASTATIN CALCIUM 40 MG TABLET. PO SCH (20:58)
[2018-07-10] MEDS: LATANOPROST 0.005% OPHTH SOLUTION 2.5ML BOTTLE. OU SCH (20:59)
[2018-07-10] MEDS: LABETALOL HCL 200 MG TABLET PO SCH (20:59)
[2018-07-10] MEDS: CEFEPIME HCL IV Push 1 GM VIAL. IVP SCH (21:00)
[2018-07-10] MEDS: ALPRAZolam 0.5 MG TABLET PO PRN (21:01)
--- NOTE | 2018-07-11 00:53 | CONS ---
DATE OF CONSULTATION: 07/10/2018 REFERRING PHYSICIAN: Dr. Wilhelm. REASON FOR CONSULTATION: Possible right lower lobe infiltrate. HISTORY OF PRESENT ILLNESS: A 57-year-old female, with history of end-stage renal disease, on hemodialysis, presented to the ER with complaints of acute abdominal pain, nausea, vomiting, itching, chronic pain, which kept on getting worse. The patient had missed her dialysis appointment. White count was elevated at 14 K. Chest x-ray showed possible right lower lobe infiltrate. The patient was started on cefepime, also got a dose of vancomycin. ID consult has been requested for antibiotic management. The patient's troponin was high. Cardiology had evaluated the patient. PAST MEDICAL HISTORY: CHF, hypertension, hyperlipidemia, asthma, COPD, peripheral neuropathy, fibromyalgia, anxiety, CKD on hemodialysis, diabetes, hypothyroidism, hyperparathyroidism, noncompliance. PAST SURGICAL HISTORY: As per HPI. FAMILY HISTORY: As per HPI. SOCIAL HISTORY: History of drug abuse and alcohol. Lives with family. CURRENT MEDICATIONS: IV cefepime, status post 1 dose of vancomycin, also had received 1 dose of ceftriaxone, other medications as per MAR. ALLERGIES: MORPHINE. REVIEW OF SYSTEMS: Negative except for above in HPI. PHYSICAL EXAMINATION: VITAL SIGNS: Temperature 97.7, pulse 71, respiratory rate 16, blood pressure 162/75, oxygen saturation 100% on room air. GENERAL: Alert, oriented x 3 female, in no acute distress. HEENT: Normocephalic, atraumatic. Anicteric. No thrush. Oral mucosa moist. NECK: Supple. No JVD. LUNGS: Bilateral crackles present. HEART: S1, S2. ABDOMEN: Soft, nontender, nondistended. EXTREMITIES: Trace bilateral lower extremity edema. No cyanosis. DERMATOLOGIC: Warm, dry, no generalized rash. NEUROLOGIC: Alert and oriented x 3. Grossly nonfocal. PSYCHIATRIC: Flat affect, agitated. MUSCULOSKELETAL: No gross deformity. LABORATORY DATA: WBC 7.9, was 14.4; hemoglobin 10.1, was 11.9; hematocrit 30.9, platelets 358, segments 90%. Sodium 136, potassium 4.0, chloride 95, bicarbonate 26, BUN 75, creatinine 11.4, glucose 93, lactate 1.2, calcium 8.2. Troponin 0.320. Vancomycin trough 18.1. Influenza screen negative. Chest x-ray, there is increased airspace opacity of the right lung base and right infrahilar region, which may be due to infiltrate or asymmetric edema. IMPRESSION: 1. Hypertensive urgency. Improving 2. Possible Right lower lobe infiltrate. 3. Nausea, vomiting, abdominal pain, now resolved. 4. Chronic pain. 5. End-stage renal disease, on dialysis with noncompliance. 6. Anemia of chronic disease. 7. History of gastroesophageal reflux disease. RECOMMENDATIONS: 1. Continue empiric cefepime for now. 2. F/U blood culture results. 3. Continue supportive care. 4. Maintain aspiration precautions. Thank you, Dr. Wilhelm, for consulting Infectious Disease to participate in this patient's care. If you have any questions, do not hesitate to contact me. SHANDA YATES MD DR: JEREMI/franny JOB#: [id number] / [id number] MOJGAN
[2018-07-11] MEDS: HYDROcodone/APAP 5/325MG 1 TAB TABLET PO PRN ×5 (01:01→18:00)
--- NOTE | 2018-07-11 05:55 | NUR ---
Pt refused 2300 (07/10) and 0300 (07/11) vital signs, only request by pt was for pain medication. Will continue to monitor for status changes.
[2018-07-11] MEDS: LEVOTHYROXINE 50 MCG TABLET PO SCH (06:00)
[2018-07-11] MEDS: HEPARIN for SUB-Q USE 5,000 UNIT/ML VIAL. SQ SCH ×2 (06:00→14:00)
[2018-07-11] MEDS: PANTOPRAZOLE 40 MG TABLET.DR. PO SCH (07:30)
--- NOTE | 2018-07-11 07:50 | PDOC ---
PROGRESS NOTES Chief Complaint Chief Complaint A/P: HTN urgency - coreg converted to labetolol RLL infiltrate - ID consulted, refused antibiotics, trialed off without worsening of her sx, likely was 2/2 2 missed dialysis sessions ESRD - need dialysis regularly outpatient. Consulted nephrology Anemia - of chronic renal disease, will f/u outpatient CBC at dialysis, asymptomatic HTN - Monitor Sepsis - f/u cultures, treated as HCAP, consulted ID as she frequently has SIRS Troponin elevation - likely 2/2 demand, chronic. cards consulted. Most probably MSK in origin. Recent stress test without any evidence of ischemia or infarct. initial 0.166. multifactorial, demand mediated type 2 in the setting of ESRD Anasarca - f/u on possible esophageal mass biopsy nausea vomiting and abdominal pain: resolving hypothyroidism: on replacement therapy FEN - Renal diet PPX - heparin FULL CODE Inpatient for at least 2 midnights for likely HCAP History of Present Illness History of Present Illness Ms. Salazar, is a 57 year old F w/ PMHx ESRD on HD admit from ER with acute abdominal pain, nausea, and vomiting as a well as cough, feeling badly. Was supposed to have dialysis on Monday but she missed her appointment then and today. Leukocytosis 14K and CXR with right lower lobe possible infiltrate Tolerated HD 07/10. no complaints. denies chest pain sob nausea vomiting diarrhea. She is set for dialysis today Vitals Vitals Vital Signs Date Time Temp Pulse Resp B/P (MAP) Pulse Ox O2 Delivery O2 Flow Rate FiO2 07/11/18 06:40 96 Room Air 07/10/18 20:59 79 155/60 07/10/18 19:10 98.9 16 98.9 Physical Exam General: Alert, Cooperative, No acute distress Lungs: Clear, Other Extremities: No clubbing, No cyanosis, No edema, Normal pulses, No tenderness/ swelling Skin: No rashes, No breakdown, No significant lesion Labs LABS Laboratory Tests Test 07/10/18 07:50 07/10/18 13:04 07/10/18 17:04 07/10/18 20:57 White Blood Count 7.9 x10^3/uL (4.0-11.0) Red Blood Count 3.47 x10^6/uL (3.50-5.40) Hemoglobin 10.1 g/dL (12.0-15.5) Hematocrit 30.9 % (36.0-47.0) Mean Corpuscular Volume 89 fL (79-100) Mean Corpuscular Hemoglobin 29 pg (25-35) Mean Corpuscular Hemoglobin Concent 33 g/dL (31-37) Red Cell Distribution Width 19.5 % (11.5-14.5) Platelet Count 358 x10^3/uL (140-400) Neutrophils (%) (Auto) 59 % (31-73) Lymphocytes (%) (Auto) 32 % (24-48) Monocytes (%) (Auto) 8 % (0-9) Eosinophils (%) (Auto) 1 % (0-3) Basophils (%) (Auto) 1 % (0-3) Neutrophils # (Auto) 4.6 x10^3uL (1.8-7.7) Lymphocytes # (Auto) 2.5 x10^3/uL (1.0-4.8) Monocytes # (Auto) 0.6 x10^3/uL (0.0-1.1) Eosinophils # (Auto) 0.0 x10^3/uL (0.0-0.7) Basophils # (Auto) 0.1 x10^3/uL (0.0-0.2) Sodium Level 136 mmol/L (136-145) Potassium Level 4.0 mmol/L (3.5-5.1) Chloride Level 95 mmol/L (98-107) Carbon Dioxide Level 26 mmol/L (21-32) Anion Gap 15 (6-14) Blood Urea Nitrogen 75 mg/dL (7-20) Creatinine 11.4 mg/dL (0.6-1.0) Estimated GFR (Cockcroft-Gault) 4.2 Glucose Level 93 mg/dL (70-99) Calcium Level 8.2 mg/dL (8.5-10.1) Random Vancomycin Level 18.1 mcg/mL Glucose (Fingerstick) 71 mg/dL (70-99) 88 mg/dL (70-99) 93 mg/dL (70-99) Assessment and Plan Assessmemt and Plan Problems Medical Problems: (1) Accelerated hypertension Status: Acute (2) Chronic back pain Status: Acute (3) Non-ST elevation [place] (NSTEMI) Status: Acute (4) Right lower lobe pulmonary infiltrate Status: Acute Comment Review of Relevant I have reviewed the following items pamela (where applicable) has been applied. Labs Laboratory Tests Test 07/09/18 10:28 07/09/18 11:15 07/09/18 15:15 07/09/18 16:15 Influenza Type A Antigen Negative (NEGATIVE) Influenza Type B Antigen Negative (NEGATIVE) White Blood Count 14.4 x10^3/uL (4.0-11.0) Red Blood Count 4.15 x10^6/uL (3.50-5.40) Hemoglobin 11.9 g/dL (12.0-15.5) Hematocrit 36.5 % (36.0-47.0) Mean Corpuscular Volume 88 fL (79-100) Mean Corpuscular Hemoglobin 29 pg (25-35) Mean Corpuscular Hemoglobin Concent 33 g/dL (31-37) Red Cell Distribution Width 19.3 % (11.5-14.5) Platelet Count 441 x10^3/uL (140-400) Neutrophils (%) (Auto) 90 % (31-73) Lymphocytes (%) (Auto) 6 % (24-48) Monocytes (%) (Auto) 3 % (0-9) Eosinophils (%) (Auto) 0 % (0-3) Basophils (%) (Auto) 1 % (0-3) Neutrophils # (Auto) 13.0 x10^3uL (1.8-7.7) Lymphocytes # (Auto) 0.9 x10^3/uL (1.0-4.8) Monocytes # (Auto) 0.4 x10^3/uL (0.0-1.1) Eosinophils # (Auto) 0.0 x10^3/uL (0.0-0.7) Basophils # (Auto) 0.1 x10^3/uL (0.0-0.2) Segmented Neutrophils % 90 % (35-66) Band Neutrophils % 2 % (0-9) Lymphocytes % 6 % (24-48) Monocytes % 2 % (0-10) Platelet Estimate Increased (ADEQUATE) Sodium Level 145 mmol/L (136-145) Potassium Level 3.8 mmol/L (3.5-5.1) Chloride Level 99 mmol/L (98-107) Carbon Dioxide Level 28 mmol/L (21-32) Anion Gap 18 (6-14) Blood Urea Nitrogen 71 mg/dL (7-20) Creatinine 11.2 mg/dL (0.6-1.0) Estimated GFR (Cockcroft-Gault) 4.3 BUN/Creatinine Ratio 6 (6-20) Glucose Level 122 mg/dL (70-99) Lactic Acid Level 1.2 mmol/L (0.4-2.0) Calcium Level 9.2 mg/dL (8.5-10.1) Magnesium Level 2.8 mg/dL (1.8-2.4) Total Bilirubin 0.6 mg/dL (0.2-1.0) Aspartate Amino Transf (AST/SGOT) 39 U/L (15-37) Alanine Aminotransferase (ALT/SGPT) 32 U/L (14-59) Alkaline Phosphatase 90 U/L (46-116) Creatine Kinase 174 U/L (26-192) Creatine Kinase MB (Mass) 5.3 ng/mL (0.0-3.6) Creatine Kinase MB Relative Index 3.0 % (0-4) Troponin I Quantitative 0.166 ng/mL (0.000-0.055) 0.252 ng/mL (0.000-0.055) AH-Qda-F-Type Natriuretic Peptide > 22463 pg/mL (0-124) Total Protein 7.3 g/dL (6.4-8.2) Albumin 3.8 g/dL (3.4-5.0) Albumin/Globulin Ratio 1.1 (1.0-1.7) Lipase 288 U/L (73-393) Thyroid Stimulating Hormone (TSH) 2.120 uIU/mL (0.358-3.74) Nasal Screen MRSA (PCR) Negative (Negative) Test 07/09/18 18:50 07/10/18 07:50 07/10/18 13:04 07/10/18 17:04 Troponin I Quantitative 0.320 ng/mL (0.000-0.055) White Blood Count 7.9 x10^3/uL (4.0-11.0) Red Blood Count 3.47 x10^6/uL (3.50-5.40) Hemoglobin 10.1 g/dL (12.0-15.5) Hematocrit 30.9 % (36.0-47.0) Mean Corpuscular Volume 89 fL (79-100) Mean Corpuscular Hemoglobin 29 pg (25-35) Mean Corpuscular Hemoglobin Concent 33 g/dL (31-37) Red Cell Distribution Width 19.5 % (11.5-14.5) Platelet Count 358 x10^3/uL (140-400) Neutrophils (%) (Auto) 59 % (31-73) Lymphocytes (%) (Auto) 32 % (24-48) Monocytes (%) (Auto) 8 % (0-9) Eosinophils (%) (Auto) 1 % (0-3) Basophils (%) (Auto) 1 % (0-3) Neutrophils # (Auto) 4.6 x10^3uL (1.8-7.7) Lymphocytes # (Auto) 2.5 x10^3/uL (1.0-4.8) Monocytes # (Auto) 0.6 x10^3/uL (0.0-1.1) Eosinophils # (Auto) 0.0 x10^3/uL (0.0-0.7) Basophils # (Auto) 0.1 x10^3/uL (0.0-0.2) Sodium Level 136 mmol/L (136-145) Potassium Level 4.0 mmol/L (3.5-5.1) Chloride Level 95 mmol/L (98-107) Carbon Dioxide Level 26 mmol/L (21-32) Anion Gap 15 (6-14) Blood Urea Nitrogen 75 mg/dL (7-20) Creatinine 11.4 mg/dL (0.6-1.0) Estimated GFR (Cockcroft-Gault) 4.2 Glucose Level 93 mg/dL (70-99) Calcium Level 8.2 mg/dL (8.5-10.1) Random Vancomycin Level 18.1 mcg/mL Glucose (Fingerstick) 71 mg/dL (70-99) 88 mg/dL (70-99) Test 07/10/18 20:57 Glucose (Fingerstick) 93 mg/dL (70-99) Laboratory Tests Test 07/10/18 07:50 07/10/18 13:04 07/10/18 17:04 07/10/18 20:57 White Blood Count 7.9 x10^3/uL (4.0-11.0) Red Blood Count 3.47 x10^6/uL (3.50-5.40) Hemoglobin 10.1 g/dL (12.0-15.5) Hematocrit 30.9 % (36.0-47.0) Mean Corpuscular Volume 89 fL (79-100) Mean Corpuscular Hemoglobin 29 pg (25-35) Mean Corpuscular Hemoglobin Concent 33 g/dL (31-37) Red Cell Distribution Width 19.5 % (11.5-14.5) Platelet Count 358 x10^3/uL (140-400) Neutrophils (%) (Auto) 59 % (31-73) Lymphocytes (%) (Auto) 32 % (24-48) Monocytes (%) (Auto) 8 % (0-9) Eosinophils (%) (Auto) 1 % (0-3) Basophils (%) (Auto) 1 % (0-3) Neutrophils # (Auto) 4.6 x10^3uL (1.8-7.7) Lymphocytes # (Auto) 2.5 x10^3/uL (1.0-4.8) Monocytes # (Auto) 0.6 x10^3/uL (0.0-1.1) Eosinophils # (Auto) 0.0 x10^3/uL (0.0-0.7) Basophils # (Auto) 0.1 x10^3/uL (0.0-0.2) Sodium Level 136 mmol/L (136-145) Potassium Level 4.0 mmol/L (3.5-5.1) Chloride Level 95 mmol/L (98-107) Carbon Dioxide Level 26 mmol/L (21-32) Anion Gap 15 (6-14) Blood Urea Nitrogen 75 mg/dL (7-20) Creatinine 11.4 mg/dL (0.6-1.0) Estimated GFR (Cockcroft-Gault) 4.2 Glucose Level 93 mg/dL (70-99) Calcium Level 8.2 mg/dL (8.5-10.1) Random Vancomycin Level 18.1 mcg/mL Glucose (Fingerstick) 71 mg/dL (70-99) 88 mg/dL (70-99) 93 mg/dL (70-99) Microbiology 07/09/18 Blood Culture - Preliminary, Resulted NO GROWTH AFTER 1 DAY Medications Current Medications Ondansetron HCl (Zofran) 4 mg 1X ONCE IV Last administered on 07/09/18 11:39 ; Start 07/09/18 at 09:45; Stop 07/09/18 at 09:46; Status DC Famotidine (Pepcid Vial) 20 mg 1X ONCE IVP Last administered on 07/09/18 11: 41; Start 07/09/18 at 09:45; Stop 07/09/18 at 09:46; Status DC Ceftriaxone Sodium (Rocephin) 1 gm 1X ONCE IVP Last administered on 07/09/18 11:58; Start 07/09/18 at 11:00; Stop 07/09/18 at 11:01; Status DC Vancomycin HCl (Vanco Per Pharmacy) 1 each PRN DAILY PRN MC SEE COMMENTS Last administered on 07/10/18 16:32; Start 07/09/18 at 11:00 Vancomycin HCl 1.25 gm/Sodium Chloride 250 ml @ 166.667 mls/hr 1X ONCE IV Last administered on 07/09/18 12:01; Start 07/09/18 at 11:00; Stop 07/09/18 at 12:29; Status DC Fentanyl Citrate (Fentanyl 2ml Vial) 50 mcg 1X ONCE IV Last administered on 11:55; Start 07/09/18 at 12:00; Stop 07/09/18 at 12:01; Status DC Clonidine HCl (Catapres) 0.3 mg 1X ONCE PO Last administered on 07/09/18 13: 01; Start 07/09/18 at 12:15; Stop 07/09/18 at 12:16; Status DC Labetalol HCl (Normodyne Iv Push) 10 mg 1X ONCE IVP Last administered on 13:02; Start 07/09/18 at 12:15; Stop 07/09/18 at 12:16; Status DC Ondansetron HCl (Zofran) 4 mg PRN Q8HRS PRN IV NAUSEA/VOMITING; Start 07/09/18 at 13:00; Stop 07/10/18 at 07:22; Status DC Fentanyl Citrate (Fentanyl 2ml Vial) 50 mcg PRN Q1HR PRN IV PAIN Last administered on 07/09/18 15:35; Start 07/09/18 at 13:00; Stop 07/09/18 at 17:25 ; Status DC Acetaminophen (Tylenol) 650 mg PRN Q4HRS PRN PO FEVER; Start 07/09/18 at 13:00 ; Stop 07/10/18 at 07:22; Status DC Albuterol Sulfate (Ventolin Neb Soln) 2.5 mg BID PRN INH SHORTNESS OF BREATH; Start 07/09/18 at 14:45 Alprazolam (Xanax) 0.5 mg PRN TID PRN PO ANXIETY / AGITATION Last administered on 07/10/18 21:01; Start 07/09/18 at 14:45 Amlodipine Besylate (Norvasc) 10 mg DAILY PO Last administered on 07/10/18 13: 01; Start 07/09/18 at 16:00 Atorvastatin Calcium (Lipitor) 40 mg HS PO Last administered on 07/10/18 20:58 ; Start 07/09/18 at 21:00 Carvedilol (Coreg) 6.25 mg BIDWMEALS PO Last administered on 07/09/18at 15:47; Start 07/09/18 at 17:00; Stop 07/09/18 at 17:00; Status DC Clonidine HCl (Catapres Tts-2) 1 patch WEEKLY TD Last administered on 15:47; Start 07/09/18 at 15:45 Lisinopril (Prinivil) 20 mg DAILY PO Last administered on 07/10/18 13:02; Start 07/09/18 at 16:00; Stop 07/10/18 at 17:08; Status DC Sertraline HCl (Zoloft) 50 mg DAILY PO Last administered on 07/10/18 13:03; Start 07/10/18 at 09:00 Latanoprost (Xalatan) 1 drop QHS OU Last administered on 07/10/18 20:59; Start 07/09/18 at 21:00 Levothyroxine Sodium (Synthroid) 50 mcg DAILY06 PO Last administered on 06:21; Start 07/10/18 at 06:00 Amylase/Lipase/ Protease (Zenpep 5,000) 1 cap TIDWMEALS PO Last administered on 07/10/18 17:28; Start 07/09/18 at 17:00 Pantoprazole Sodium (Protonix) 40 mg DAILYAC PO Last administered on 07/10/18 13:03; Start 07/09/18 at 16:00 Ondansetron HCl (Zofran) 4 mg PRN Q6HRS PRN IV NAUSEA/VOMITING; Start 07/09/18 at 14:45 Acetaminophen/ Hydrocodone Bitart (Lortab 5/325) 1 tab PRN Q4HRS PRN PO MILD PAIN Last administered on 07/11/18at 06:40; Start 07/09/18 at 14:45 Acetaminophen (Tylenol) 650 mg PRN Q6HRS PRN PO Headaches, Temp > 101.5F; Start 07/09/18 at 14:45 Senna/Docusate Sodium (Senna Plus) 1 tab BID PO Last administered on 07/10/18at 20:58; Start 07/09/18 at 21:00 Lactulose (Lactulose) 20 gm PRN Q12HR PRN PO CONSTIPATION; Start 07/09/18 at 14 :45 Heparin Sodium (Porcine) (Heparin Sodium) 5,000 unit Q8HRS SQ Last administered on 07/10/18at 21:08; Start 07/09/18 at 22:00 Labetalol HCl (Normodyne Iv Push) 10 mg PRN Q4HRS PRN IVP HYPERTENSION, SEE COMMENTS; Start 07/09/18 at 14:45 Cefepime HCl (Maxipime) 1 gm Q24H IVP Last administered on 07/10/18 21:00; Start 07/09/18 at 21:00 Labetalol HCl (Trandate) 200 mg BID PO Last administered on 07/09/18at 20:22; Start 07/09/18 at 16:15; Stop 07/10/18 at 17:08; Status DC Fentanyl Citrate (Fentanyl 2ml Vial) 50 mcg PRN Q3HRS PRN IV PAIN Last administered on 07/10/18at 13:34; Start 07/09/18 at 17:30; Stop 07/10/18 at 15:09 ; Status DC Sodium Chloride 1,000 ml @ 1,000 mls/hr Q1H PRN IV hypotension; Start 07/10/18 at 07:14; Stop 07/10/18 at 13:13; Status DC Albumin Human 200 ml @ 200 mls/hr 1X PRN PRN IV Hypotension; Start 07/10/18 at 07:15; Stop 07/10/18 at 13:14; Status DC Acetaminophen (Tylenol) 500 mg 1X PRN PRN PO MILD PAIN / TEMP; Start 07/10/18 at 07:15; Stop 07/11/18 at 07:14; Status DC Diphenhydramine HCl (Benadryl) 25 mg 1X PRN PRN IV ITCHING Last administered on 07/10/18at 10:36; Start 07/10/18 at 07:15; Stop 07/11/18 at 07:14; Status DC Diphenhydramine HCl (Benadryl) 25 mg 1X PRN PRN IV ITCHING Last administered on 07/10/18at 10:50; Start 07/10/18 at 07:15; Stop 07/11/18 at 07:14; Status DC Sodium Chloride (Normal Saline Flush) 10 ml 1X PRN PRN IV AP catheter pack; Start 07/10/18 at 07:15; Stop 07/11/18 at 07:14; Status DC Sodium Chloride (Normal Saline Flush) 10 ml 1X PRN PRN IV PHARMACY ASSISTANT catheter pack; Start 07/10/18 at 07:15; Stop 07/11/18 at 07:14; Status DC Sodium Chloride 1,000 ml @ 400 mls/hr Q2H30M PRN IV PATENCY; Start 07/10/18 at 07:14; Stop 07/10/18 at 19:13; Status DC Info (PHARMACY MONITORING -- do not chart) 1 each PRN DAILY PRN MC SEE COMMENTS ; Start 07/10/18 at 07:15 Lactobacillus Rhamnosus (Culturelle) 1 cap BID PO Last administered on at 20:59; Start 07/10/18 at 09:00 Vancomycin HCl 500 mg/Sodium Chloride 100 ml @ 100 mls/hr 1X ONCE IV Last administered on 07/10/18at 16:37; Start 07/10/18 at 14:00; Stop 07/10/18 at 14:59 ; Status DC Labetalol HCl (Trandate) 400 mg BID PO Last administered on 07/10/18at 20:59; Start 07/10/18 at 21:00 Lisinopril (Prinivil) 40 mg DAILY PO ; Start 07/11/18 at 09:00 Lisinopril (Prinivil) 20 mg 1X ONCE PO Last administered on 07/10/18at 17:29; Start 07/10/18 at 17:15; Stop 07/10/18 at 17:16; Status DC Aspirin (Ecotrin) 81 mg DAILYWBKFT PO ; Start 07/11/18 at 08:00 Active Scripts Active Alprazolam 0.5 Mg Tablet 0.5 Mg PO PRN TID PRN MDD 1 [Pantoprazole] 40 MG Tablet. 40 Mg PO DAILYAC 30 Days Reported Percocet 5-325 Mg Tablet (Oxycodone/Acetaminophen) 1 Each Tablet 1 Tab PO Q4HRS PRN Zoloft (Sertraline Hcl) 50 Mg Tablet 50 Mg PO DAILY Lisinopril 20 Mg Tablet 20 Mg PO DAILY Coreg (Carvedilol) 6.25 Mg Tablet 6.25 Mg PO BIDWMEALS Creon 6,000 Units Capsule (Lipase/Protease/Amylase) 1 Each Capsule. 1 Tab PO TID Proair Hfa (Albuterol Sulfate) 8.5 Gm Hfa.aer.ad 2 Puff INH BID PRN Levothyroxine Sodium 50 Mcg Tablet 1 Tab PO DAILY Clonidine Tts-2 (Clonidine) 1 Each Patch.tdwk 1 Patch TD WEEKLY Amlodipine Besylate 5 Mg Tablet 10 Mg PO DAILY Atorvastatin Calcium 40 Mg Tablet 40 Mg PO HS Latanoprost 2.5 Ml Drops 1 Drop EACHEYE HS Vitals/I & O Vital Sign - Last 24 Hours 07/10/18 07/10/18 07/10/18 07/10/18 08:00 10:16 13:01 13:02 Pulse 84 84 B/P (MAP) 176/83 176/83 Pulse Ox 100 O2 Delivery Room Air Room Air 07/10/18 07/10/18 07/10/18 07/10/18 13:03 13:34 14:00 15:00 Temp 98.4 98.4 Pulse 76 Resp 20 B/P (MAP) 181/69 (106) Pulse Ox 100 100 100 97 O2 Delivery Room Air Room Air Room Air Room Air 07/10/18 07/10/18 07/10/18 07/10/18 16:38 17:29 19:10 20:00 Temp 98.9 98.9 Pulse 76 79 Resp 16 B/P (MAP) 181/69 155/60 (91) Pulse Ox 97 96 O2 Delivery Room Air Room Air Room Air 07/10/18 07/10/18 07/11/18 07/11/18 20:58 20:59 01:01 02:01 Pulse 79 B/P (MAP) 155/60 Pulse Ox 96 96 96 O2 Delivery Room Air Room Air Room Air 07/11/18 06:40 Pulse Ox 96 O2 Delivery Room Air Intake and Output 07/10/18 07/10/18 07/11/18 14:59 22:59 06:59 Intake Total 240 ml 360 ml 100 ml Output Total 0 ml Balance 240 ml 360 ml 100 ml Nutrition Consultation Dietary Evaluation: Recommendations by RD: Protein supplementation Comments: REC renal/ADA diet REC Nepro TID Expected Outcomes/Goals: PO intake to meet >75% est needs Interpretation of weight loss: >7.5% in 3 months Malnutrition Findings: Food and Nutrition Intake (Mod: <75% est energy req 7days Weight Status: Appropriate FELI SHAH MD Jul 11, 2018 07:50
[2018-07-11] MEDS ORDERED: ASPIRIN ENTERIC COATED 81 MG TABLET.DR. PO SCH (08:00)
--- NOTE | 2018-07-11 08:07 | PDOC ---
Infectious Disease Note Subjective: Subjective pt has diarrhea no n/v/abdo pain cont to have pain in both legs no sob or cough pt is refusing any treatment per d/W RN Vital Signs: Vital Signs Vital Signs Date Time Temp Pulse Resp B/P (MAP) Pulse Ox O2 Delivery O2 Flow Rate FiO2 07/11/18 06:40 96 Room Air 07/10/18 20:59 79 155/60 07/10/18 19:10 98.9 16 98.9 Physical Exam: PHYSICAL EXAM GENERAL: Alert, oriented x 3 female, in no acute distress. HEENT: Normocephalic, atraumatic. Anicteric. No thrush. Oral mucosa moist. NECK: Supple. No JVD. LUNGS: Bilateral crackles present. HEART: S1, S2. ABDOMEN: Soft, nontender, nondistended. EXTREMITIES: Trace bilateral lower extremity edema. No cyanosis. DERMATOLOGIC: Warm, dry, no generalized rash. NEUROLOGIC: Alert and oriented x 3. Grossly nonfocal. PSYCHIATRIC: Flat affect, agitated. MUSCULOSKELETAL: No gross deformity. Medications: Inpatient Meds: Current Medications Medications (Trade) Dose Ordered Sig/Clarence Start Time Stop Time Status Last Admin Dose Admin Acetaminophen (Tylenol) 500 mg 1X PRN PRN 07/10/18 07:15 07/11/18 07:14 DC Acetaminophen/ Hydrocodone Bitart (Lortab 5/325) 1 tab PRN Q4HRS PRN 07/09/18 14:45 07/11/18 06:40 1 TAB Albumin Human 200 ml @ 200 mls/hr 1X PRN PRN 07/10/18 07:15 07/10/18 13:14 DC Albuterol Sulfate (Ventolin Neb Soln) 2.5 mg BID PRN 07/09/18 14:45 Alprazolam (Xanax) 0.5 mg PRN TID PRN 07/09/18 14:45 07/10/18 21:01 0.5 MG Amlodipine Besylate (Norvasc) 10 mg DAILY 07/09/18 16:00 07/10/18 13:01 10 MG Amylase/Lipase/ Protease (Zenpep 5,000) 1 cap TIDWMEALS 07/09/18 17:00 07/10/18 17:28 1 CAP Aspirin (Ecotrin) 81 mg DAILYWBKFT 07/11/18 08:00 Atorvastatin Calcium (Lipitor) 40 mg HS 07/09/18 21:00 07/10/18 20:58 40 MG Carvedilol (Coreg) 6.25 mg BIDWMEALS 07/09/18 17:00 07/09/18 17:00 DC 07/09/18 15:47 6.25 MG Cefepime HCl (Maxipime) 1 gm Q24H 07/09/18 21:00 07/10/18 21:00 1 GM Ceftriaxone Sodium (Rocephin) 1 gm 1X ONCE 07/09/18 11:00 07/09/18 11:01 DC 07/09/18 11:58 1 GM Clonidine HCl (Catapres Tts-2) 1 patch WEEKLY 07/09/18 15:45 07/09/18 15:47 1 PATCH Clonidine HCl (Catapres) 0.3 mg 1X ONCE 07/09/18 12:15 07/09/18 12:16 DC 07/09/18 13:01 0.3 MG Diphenhydramine HCl (Benadryl) 25 mg 1X PRN PRN 07/10/18 07:15 07/11/18 07:14 DC 07/10/18 10:50 25 MG Famotidine (Pepcid Vial) 20 mg 1X ONCE 07/09/18 09:45 07/09/18 09:46 DC 07/09/18 11:41 20 MG Fentanyl Citrate (Fentanyl 2ml Vial) 50 mcg PRN Q3HRS PRN 07/09/18 17:30 07/10/18 15:09 DC 07/10/18 13:34 50 MCG Heparin Sodium (Porcine) (Heparin Sodium) 5,000 unit Q8HRS 07/09/18 22:00 07/10/18 21:08 5,000 UNIT Info (PHARMACY MONITORING -- do not chart) 1 each PRN DAILY PRN 07/10/18 07:15 Labetalol HCl (Normodyne Iv Push) 10 mg PRN Q4HRS PRN 07/09/18 14:45 Labetalol HCl (Trandate) 400 mg BID 07/10/18 21:00 07/10/18 20:59 400 MG Lactobacillus Rhamnosus (Culturelle) 1 cap BID 07/10/18 09:00 4/16/19 20:59 1 CAP Lactulose (Lactulose) 20 gm PRN Q12HR PRN 07/09/18 14:45 Latanoprost (Xalatan) 1 drop QHS 07/09/18 21:00 07/10/18 20:59 1 DROP Levothyroxine Sodium (Synthroid) 50 mcg DAILY06 07/10/18 06:00 07/10/18 06:21 50 MCG Lisinopril (Prinivil) 20 mg 1X ONCE 07/10/18 17:15 07/10/18 17:16 DC 07/10/18 17:29 20 MG Ondansetron HCl (Zofran) 4 mg PRN Q6HRS PRN 07/09/18 14:45 Pantoprazole Sodium (Protonix) 40 mg DAILYAC 07/09/18 16:00 07/10/18 13:03 40 MG Senna/Docusate Sodium (Senna Plus) 1 tab BID 07/09/18 21:00 07/10/18 20:58 1 TAB Sertraline HCl (Zoloft) 50 mg DAILY 07/10/18 09:00 07/10/18 13:03 50 MG Sodium Chloride 1,000 ml @ 400 mls/hr Q2H30M PRN 07/10/18 07:14 07/10/18 19:13 DC Sodium Chloride (Normal Saline Flush) 10 ml 1X PRN PRN 07/10/18 07:15 07/11/18 07:14 DC Vancomycin HCl (Vanco Per Pharmacy) 1 each PRN DAILY PRN 07/09/18 11:00 07/10/18 16:32 1 EACH Vancomycin HCl 1.25 gm/Sodium Chloride 250 ml @ 166.667 mls/hr 1X ONCE 07/09/18 11:00 07/09/18 12:29 DC 07/09/18 12:01 166.667 MLS/HR Vancomycin HCl 500 mg/Sodium Chloride 100 ml @ 100 mls/hr 1X ONCE 07/10/18 14:00 07/10/18 14:59 DC 07/10/18 16:37 100 MLS/HR Labs: Lab Laboratory Tests Test 07/10/18 13:04 07/10/18 17:04 07/10/18 20:57 Glucose (Fingerstick) 71 mg/dL (70-99) 88 mg/dL (70-99) 93 mg/dL (70-99) Objective: Assessment: Rt Lung infiltrate ? venous congestion Hypertensive urgency. Nausea, vomiting, abdominal pain, now resolved. Chronic pain. End-stage renal disease, on dialysis with noncompliance. Anemia of chronic disease. History of gastroesophageal reflux disease. H/O Noncomplaince Diarrhea Plan: Plan of Care DC Cefepime Observe off antibiotics C diff PCR if diarrhea continues Maintain aspiration precautions. Follow up cultures. D/W SHANDA ZAPATA MD Jul 11, 2018 08:07
[2018-07-11] MEDS: LACTOBACILLUS RHAMNOSUS GG 1 CAPSULE. PO SCH (09:00)
[2018-07-11] MEDS ORDERED: LISINOPRIL 20 MG TABLET PO SCH (09:00)
[2018-07-11] MEDS: SERTRALINE 50 MG TABLET. PO SCH (09:40)
[2018-07-11] MEDS: SENNOSIDES/DOCUSATE 8.6/50MG TABLET. PO SCH (09:40)
[2018-07-11] MEDS: LABETALOL HCL 200 MG TABLET PO SCH (09:40)
[2018-07-11] MEDS: amLODIPine BESYLATE 5 MG TABLET PO SCH (09:41)
[2018-07-11 10:55] VITALS: BP 178/73
[2018-07-11] MEDS: ALPRAZolam 0.5 MG TABLET PO PRN (11:06)
[2018-07-11] MEDS ORDERED: IV NORMAL SALINE 1000ML BAG 1,000 ML IV PRN ×2 (12:30)
[2018-07-11] MEDS ORDERED: 0.9 % SODIUM CHLORIDE 10 ML DISP.SYRIN. IV PRN ×2 (12:30)
[2018-07-11] MEDS ORDERED: diphenhydrAMINE 50 MG/ML VIAL IV PRN (12:30)
[2018-07-11] MEDS ORDERED: DIALYSIS PATIENT. MC PRN ×2 (12:30)
[2018-07-11] MEDS ORDERED: HYDR-2761 PO (13:16)
--- NOTE | 2018-07-11 13:17 | PDOC3 ---
Discharge Summary Visit Information Date of Admission: Jul 09, 2018 Date of Discharge: Jul 11, 2018 Final Diagnosis Problems Medical Problems: (1) Accelerated hypertension Status: Acute (2) Chronic back pain Status: Acute (3) Non-ST elevation VT (NSTEMI) Status: Acute (4) Right lower lobe pulmonary infiltrate Status: Acute Brief Hospital Course Allergies Allergies Coded Allergies Type Severity Reaction Last Updated Verified morphine Allergy Intermediate Itching 03/27/18 Yes Vital Signs Vital Signs Date Time Temp Pulse Resp B/P (MAP) Pulse Ox O2 Delivery O2 Flow Rate FiO2 07/11/18 12:17 98 Room Air 07/11/18 10:55 69 16 178/73 (108) 07/10/18 19:10 98.9 98.9 Lab Results Laboratory Tests Test 07/09/18 15:15 07/09/18 16:15 07/09/18 18:50 07/10/18 07:50 Troponin I Quantitative 0.252 ng/mL (0.000-0.055) 0.320 ng/mL (0.000-0.055) Nasal Screen MRSA (PCR) Negative (Negative) White Blood Count 7.9 x10^3/uL (4.0-11.0) Red Blood Count 3.47 x10^6/uL (3.50-5.40) Hemoglobin 10.1 g/dL (12.0-15.5) Hematocrit 30.9 % (36.0-47.0) Mean Corpuscular Volume 89 fL (79-100) Mean Corpuscular Hemoglobin 29 pg (25-35) Mean Corpuscular Hemoglobin Concent 33 g/dL (31-37) Red Cell Distribution Width 19.5 % (11.5-14.5) Platelet Count 358 x10^3/uL (140-400) Neutrophils (%) (Auto) 59 % (31-73) Lymphocytes (%) (Auto) 32 % (24-48) Monocytes (%) (Auto) 8 % (0-9) Eosinophils (%) (Auto) 1 % (0-3) Basophils (%) (Auto) 1 % (0-3) Neutrophils # (Auto) 4.6 x10^3uL (1.8-7.7) Lymphocytes # (Auto) 2.5 x10^3/uL (1.0-4.8) Monocytes # (Auto) 0.6 x10^3/uL (0.0-1.1) Eosinophils # (Auto) 0.0 x10^3/uL (0.0-0.7) Basophils # (Auto) 0.1 x10^3/uL (0.0-0.2) Sodium Level 136 mmol/L (136-145) Potassium Level 4.0 mmol/L (3.5-5.1) Chloride Level 95 mmol/L (98-107) Carbon Dioxide Level 26 mmol/L (21-32) Anion Gap 15 (6-14) Blood Urea Nitrogen 75 mg/dL (7-20) Creatinine 11.4 mg/dL (0.6-1.0) Estimated GFR (Cockcroft-Gault) 4.2 Glucose Level 93 mg/dL (70-99) Calcium Level 8.2 mg/dL (8.5-10.1) Random Vancomycin Level 18.1 mcg/mL Test 07/10/18 13:04 07/10/18 17:04 07/10/18 20:57 07/11/18 11:02 Glucose (Fingerstick) 71 mg/dL (70-99) 88 mg/dL (70-99) 93 mg/dL (70-99) 89 mg/dL (70-99) Laboratory Tests Test 07/10/18 17:04 07/10/18 20:57 07/11/18 11:02 Glucose (Fingerstick) 88 mg/dL (70-99) 93 mg/dL (70-99) 89 mg/dL (70-99) Brief Hospital Course Ms. Smith, is a 57 year old F w/ PMHx ESRD on HD admit from ER with acute abdominal pain, nausea, and vomiting as a well as cough, feeling badly. Was supposed to have dialysis on Monday but she missed her appointment then and today. Leukocytosis 14K and CXR with right lower lobe possible infiltrate Tolerated HD 07/10. no complaints. denies chest pain sob nausea vomiting diarrhea A/P: HTN urgency - coreg converted to labetolol RLL infiltrate - treated as HCAP 3 days given her dialysis status, Cefepime, had vanco x1, will screen for MRSA. ID consulted - stopped antibiotics as she refused ESRD - need dialysis regularly outpatient. Consulted nephrology Anemia - of chronic renal disease, will f/u outpatient CBC at dialysis, asymptomatic HTN - Monitor Sepsis - f/u cultures, treated as HCAP, consulted ID Troponin elevation - likely 2/2 demand, chronic. cards consulted. Most probably MSK in origin. Recent stress test without any evidence of ischemia or infarct. initial 0.166. multifactorial, demand mediated type 2 in the setting of ESRD Anasarca - f/u on possible esophageal mass biopsy nausea vomiting and abdominal pain: resolving hypothyroidism: on replacement therapy FEN - Renal diet PPX - heparin FULL CODE D/c to f/u with nephrology at [facility] on 07/13/18 Greater than 30 minutes spent on discharge Discharge Information Condition at Discharge: Improved Follow Up: Weeks Disposition/Orders: D/C to Home Scheduled Amlodipine Besylate (Amlodipine Besylate) 5 Mg Tablet, 10 MG PO DAILY for blood pressure, (Reported) Entered as Reported by: JENNIE SMITH on 12/05/17 0810 Last Action: Continued on 07/09/18 1444 by FELI SHAH MD Atorvastatin Calcium (Atorvastatin Calcium) 40 Mg Tablet, 40 MG PO HS for cholesterol, (Reported) Entered as Reported by: JENNIE SMITH on 12/05/17 0810 Last Action: Continued on 07/09/18 1444 by FELI SHAH MD Carvedilol (Coreg ) 6.25 Mg Tablet, 6.25 MG PO BIDWMEALS for CARDIAC, ( Reported) Entered as Reported by: VAL MONTANA on 05/08/18 1437 Last Action: Continued on 07/09/18 1444 by FELI SHAH MD Clonidine (Clonidine Tts-2) 1 Each Patch.tdwk, 1 PATCH TD WEEKLY for blood pressure, (Reported) Entered as Reported by: VIKI LAI on 03/22/18 1727 Last Action: Continued on 07/09/18 1444 by FELI SHAH MD Latanoprost (Latanoprost) 2.5 Ml Drops, 1 DROP EACHEYE HS, (Reported) Entered as Reported by: ATTILA HAMMOND on 09/24/17 1649 Last Action: Converted on 07/09/18 1444 by FELI SHAH MD Levothyroxine Sodium (Levothyroxine Sodium) 50 Mcg Tablet, 1 TAB PO DAILY for thyroid, #30 Ref 5 (Reported) Entered as Reported by: VIKI LAI on 03/22/18 1727 Last Action: Converted on 07/09/181443 by FELI SHAH MD Lipase/Protease/Amylase (Creon 6,000 Units Capsule) 1 Each Capsule., 1 TAB PO TID for digestion, (Reported) Entered as Reported by: CAROL CHAN on 04/23/18 1236 Last Action: Converted on 07/09/181443 by FELI SHAH MD Lisinopril (Lisinopril) 20 Mg Tablet, 20 MG PO DAILY for FOR HYPERTENSION, Ref 0 (Reported) Entered as Reported by: LAUREN REAVES on 05/27/18 0749 Last Action: Continued on 07/09/181443 by FELI SHAH MD Sertraline Hcl (Zoloft) 50 Mg Tablet, 50 MG PO DAILY for ANTI-DEPRESSANT, Ref 0 (Reported) Entered as Reported by: LAUREN REAVES on 05/27/1849 Last Action: Continued on 07/09/181443 by FELI SHAH MD [Pantoprazole] 40 MG TABLET., 40 MG PO DAILYAC for GERD for 30 Days, #30 Ref 2 Prescribed by: FELI SHAH MD on 03/07/18 1359 Last Action: Converted on 07/09/181443 by FELI SHAH MD Scheduled PRN Albuterol Sulfate (Proair Hfa) 8.5 Gm Hfa.aer.ad, 2 PUFF INH BID PRN for SHORTNESS OF BREATH, (Reported) Entered as Reported by: VIKI LAI on 03/22/18 1727 Last Action: Continued on 07/09/181443 by FELI SHAH MD Alprazolam (Alprazolam) 0.5 Mg Tablet, 0.5 MG PO PRN TID PRN for ANXIETY / AGITATION MDD 1, #10 Prescribed by: PRABHAKAR MOSQUERA on 04/06/18 1220 Last Action: Continued on 07/09/181443 by FELI SHAH MD Hydrocodone Bit/Acetaminophen (Hydrocodone-Apap 5-325 ) 1 Tab Tablet, 1 TAB PO PRN Q4HRS PRN for MILD PAIN for 6 Days, #18 Prescribed by: FELI SHAH MD on 07/11/18 1316 Discontinued Medications Oxycodone/Apap 5-325 (Percocet 5-325 Mg Tablet ) 1 Each Tablet, 1 TAB PO Q4HRS PRN for PAIN, Ref 0 (Reported) Entered as Reported by: LAUREN REAVES on 05/27/18 1124 Last Action: HELD on 07/09/18 1444 by MD ALYSSA HOPKINS CHRISTOPHER S MD Jul 11, 2018 13:17
--- NOTE | 2018-07-11 15:35 | PDOC ---
SUBJECTIVE ROS Seen on HD, No concerns voiced OBJECTIVE Vital Signs Vital Signs Date Time Temp Pulse Resp B/P (MAP) Pulse Ox O2 Delivery O2 Flow Rate FiO2 07/11/18 14:35 16 07/11/18 12:17 98 Room Air 07/11/18 10:55 69 178/73 (108) 07/10/18 19:10 98.9 98.9 I & 0 Intake and Output 07/11/18 06:59 Intake Total 700 ml Output Total 0 ml Balance 700 ml Intake Oral 700 ml Output Urine Total 0 ml # Voids 1 # Bowel Movements 2 PHYSICAL EXAM Physical Exam General: No acute distress HEENT: OM moist Neck Supple Lungs: CTA, Non labored Heart: S1S2, RRR Extremities: No clubbing, No cyanosis, No edema, Skin: No rashes, Neuro: Grossly normal - No Calvillo, No CVA or SP tenderness Skin No rash DIAGNOSIS/ASSESSMENT Assessment & Plan ESRD - On HD MWF Seen on HD, tolerating well 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 , 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 HTN urgency - coreg converted to labetolol RLL infiltrate - On Abx for HCAP as per ID Anemia - of chronic renal disease, stable Abdominal Pain : resolved Likely dc home today COMMENT/RELEVANT DATA Meds Current Medications Medications (Trade) Dose Ordered Sig/Clarence Start Time Stop Time Status Last Admin Dose Admin Acetaminophen (Tylenol) 500 mg 1X PRN PRN 07/10/18 07:15 07/11/18 07:14 DC Acetaminophen/ Hydrocodone Bitart (Lortab 5/325) 1 tab PRN Q4HRS PRN 07/09/18 14:45 07/11/18 14:35 1 TAB Albumin Human 200 ml @ 200 mls/hr 1X PRN PRN 07/10/18 07:15 07/10/18 13:14 DC Albuterol Sulfate (Ventolin Neb Soln) 2.5 mg BID PRN 07/09/18 14:45 Alprazolam (Xanax) 0.5 mg PRN TID PRN 07/09/18 14:45 07/11/18 11:06 0.5 MG Amlodipine Besylate (Norvasc) 10 mg DAILY 07/09/18 16:00 07/11/18 09:41 10 MG Amylase/Lipase/ Protease (Zenpep 5,000) 1 cap TIDWMEALS 07/09/18 17:00 07/11/18 09:40 1 CAP Aspirin (Ecotrin) 81 mg DAILYWBKFT 07/11/18 08:00 07/11/18 09:40 81 MG Atorvastatin Calcium (Lipitor) 40 mg HS 07/09/18 21:00 07/10/18 20:58 40 MG Carvedilol (Coreg) 6.25 mg BIDWMEALS 07/09/18 17:00 07/09/18 17:00 DC 07/09/18 15:47 6.25 MG Cefepime HCl (Maxipime) 1 gm Q24H 07/09/18 21:00 07/11/18 08:55 DC 07/10/18 21:00 1 GM Ceftriaxone Sodium (Rocephin) 1 gm 1X ONCE 07/09/18 11:00 07/09/18 11:01 DC 07/09/18 11:58 1 GM Clonidine HCl (Catapres Tts-2) 1 patch WEEKLY 07/09/18 15:45 07/09/18 15:47 1 PATCH Clonidine HCl (Catapres) 0.3 mg 1X ONCE 07/09/18 12:15 07/09/18 12:16 DC 07/09/18 13:01 0.3 MG Diphenhydramine HCl (Benadryl) 25 mg 1X PRN PRN 07/11/18 12:30 07/12/18 12:29 Famotidine (Pepcid Vial) 20 mg 1X ONCE 07/09/18 09:45 07/09/18 09:46 DC 07/09/18 11:41 20 MG Fentanyl Citrate (Fentanyl 2ml Vial) 50 mcg PRN Q3HRS PRN 07/09/18 17:30 07/10/18 15:09 DC 07/10/18 13:34 50 MCG Heparin Sodium (Porcine) (Heparin Sodium) 5,000 unit Q8HRS 07/09/18 22:00 07/10/18 21:08 5,000 UNIT Info (PHARMACY MONITORING -- do not chart) 1 each PRN DAILY PRN 07/11/18 12:30 Labetalol HCl (Normodyne Iv Push) 10 mg PRN Q4HRS PRN 07/09/18 14:45 Labetalol HCl (Trandate) 400 mg BID 07/10/18 21:00 07/11/18 09:40 400 MG Lactobacillus Rhamnosus (Culturelle) 1 cap BID 07/10/18 09:00 07/10/18 20:59 1 CAP Lactulose (Lactulose) 20 gm PRN Q12HR PRN 07/09/18 14:45 Latanoprost (Xalatan) 1 drop QHS 07/09/18 21:00 07/10/18 20:59 1 DROP Levothyroxine Sodium (Synthroid) 50 mcg DAILY06 07/10/18 06:00 07/10/18 06:21 50 MCG Lisinopril (Prinivil) 20 mg 1X ONCE 07/10/18 17:15 07/10/18 17:16 DC 07/10/18 17:29 20 MG Ondansetron HCl (Zofran) 4 mg PRN Q6HRS PRN 07/09/18 14:45 07/11/18 10:58 4 MG Pantoprazole Sodium (Protonix) 40 mg DAILYAC 07/09/18 16:00 07/10/18 13:03 40 MG Senna/Docusate Sodium (Senna Plus) 1 tab BID 07/09/18 21:00 07/11/18 09:40 1 TAB Sertraline HCl (Zoloft) 50 mg DAILY 07/10/18 09:00 07/11/18 09:40 50 MG Sodium Chloride 1,000 ml @ 400 mls/hr Q2H30M PRN 07/11/18 12:30 07/12/18 00:29 Sodium Chloride (Normal Saline Flush) 10 ml 1X PRN PRN 07/11/18 12:30 07/12/18 12:29 Vancomycin HCl (Vanco Per Pharmacy) 1 each PRN DAILY PRN 07/09/18 11:00 07/11/18 08:16 DC 07/10/18 16:32 1 EACH Vancomycin HCl 1.25 gm/Sodium Chloride 250 ml @ 166.667 mls/hr 1X ONCE 07/09/18 11:00 07/09/18 12:29 DC 07/09/18 12:01 166.667 MLS/HR Vancomycin HCl 500 mg/Sodium Chloride 100 ml @ 100 mls/hr 1X ONCE 07/10/18 14:00 07/10/18 14:59 DC 4/16/19 16:37 100 MLS/HR Lab Laboratory Tests Test 07/10/18 17:04 07/10/18 20:57 07/11/18 11:02 Glucose (Fingerstick) 88 mg/dL (70-99) 93 mg/dL (70-99) 89 mg/dL (70-99) Results All relevant outside records, renal labs, imaging studies, telemetry/EKG's were reviewed. DOMINIQUE TSE MD Jul 11, 2018 15:35
--- NOTE | 2018-07-11 18:46 | NUR ---
Discharge Note: OTTONIEL SMITH [facility] Discharge instructions and discharge home medications reviewed with Patient and a copy given. All questions have been answered and understanding verbalized.
[2018-08-26] MEDS ORDERED: PROC5TAB34 PO (11:58)
== END 2018-07-11 18:10 | disposition home or self-care (01) | DRG 871 ==
LOC: ER 09:31 → ED HOLD 13:45 → 2 SOUTH 15:43
PROVIDERS: ADMIT Internal Medicine; ATTEND Internal Medicine
PROC: 5A1D70Z Performance of Urinary Filtration, Intermittent, Less than 6 Hours Per Day (ICD-10-PCS; principal; 2018-07-09)
PROC: 5A1D70Z Performance of Urinary Filtration, Intermittent, Less than 6 Hours Per Day (ICD-10-PCS; 2018-07-11)
DX: A41.9 Sepsis, unspecified organism (principal); I50.33 Acute on chronic diastolic (congestive) heart failure; J18.9 Pneumonia, unspecified organism; N18.6 End stage renal disease; I13.2 Hypertensive heart and chronic kidney disease with heart failure and with stage 5 chronic kidney disease, or end stage renal disease; J44.0 Chronic obstructive pulmonary disease with (acute) lower respiratory infection; I24.8 Other forms of acute ischemic heart disease; E03.9 Hypothyroidism, unspecified; H40.9 Unspecified glaucoma; E11.22 Type 2 diabetes mellitus with diabetic chronic kidney disease; E11.42 Type 2 diabetes mellitus with diabetic polyneuropathy; G89.29 Other chronic pain; E78.5 Hyperlipidemia, unspecified; M79.7 Fibromyalgia; F41.9 Anxiety disorder, unspecified; I16.0 Hypertensive urgency; Y95 Nosocomial condition; D63.8 Anemia in other chronic diseases classified elsewhere; K21.9 Gastro-esophageal reflux disease without esophagitis; Z99.2 Dependence on renal dialysis; Z88.5 Allergy status to narcotic agent; Z91.19 Patient's noncompliance with other medical treatment and regimen; Z91.15 Patient's noncompliance with renal dialysis; Z90.710 Acquired absence of both cervix and uterus
CPT/HCPCS: 36415; 71045; 80048; 80053; 80202; 82553; 82962; 83605; 83690; 83735; 83880; 84443; 84484; 85007; 85025; 87040; 87641; 87804; 93005; 96365; 96375; 99406; J0692; J0696; J1200; J1644; J2405; J3010; J3370; J3490; J7050; 99285-25; J7030

== ENCOUNTER 2018-07-17 12:09 | Emergency (ER) | payer OTHER ==
[~2018-07-17] VITALS: Ht 157.5 cm; Wt 45.4 kg
[~2018-07-17 12:09] MED LIST changes: +HYDR-2761 PO
[2018-07-17] MEDS ORDERED: amLODIPine BESYLATE 5 MG TABLET PO ONE (12:30)
[2018-07-17] MEDS ORDERED: ONDANSETRON ODT 4 MG TAB.RAPDIS. PO ONE (12:30)
[2018-07-17] MEDS ORDERED: LISINOPRIL 10 MG TABLET PO ONE (12:30)
--- NOTE | 2018-07-17 12:33 | PHYS DOC ---
Past Medical History Past Medical History: Diabetes-Type II, Glaucoma, Hypertension, Hypothyroid, Renal Disease, Renal Failure, Other Additional Past Medical Histor: neuropathy, cataracts,CHRONIC PAIN,ESRD Past Surgical History: Hysterectomy, Other Additional Past Surgical Histo: PT POOR HISTORIAN,DIALYSIS CATHETER L. CHEST Alcohol Use: None Drug Use: None Adult General Chief Complaint Chief Complaint: MULTIPLE COMPLAINTS HPI HPI Patient is a 58 year old AAF who presents for chronic pain. Pt is well known to this facility with extensive medical history including HTN and ESRD. Today she says her body hurts all over. She says she ran out of hydrocodone. She reports having dialysis yesterday without issue. She denies vomiting today but feels nauseous. She took her last hydrocodone last night. She says the ER prescribes her hydrocodone. She denies fevers/chills, cough, sob. She says she is supposed to have a follow up xray and would like to do that today. She says the pain goes from her head all the way to her toes. Review of Systems Review of Systems Constitutional: Denies fever or chills Eyes: Denies change in visual acuity, redness, or eye pain HENT: Denies nasal congestion or sore throat Respiratory: Denies cough or shortness of breath Cardiovascular: No additional information not addressed in HPI GI: Denies abdominal pain, nausea, vomiting, bloody stools or diarrhea : Denies dysuria or hematuria Musculoskeletal: Denies back pain or joint pain Integument: Denies rash or skin lesions Neurologic: Denies headache, focal weakness or sensory changes Endocrine: Denies polyuria or polydipsia All other systems were reviewed and found to be within normal limits, except as documented in this note. Current Medications Current Medications Current Medications Medications (Trade) Dose Ordered Sig/Clarence Start Time Stop Time Status Last Admin Dose Admin Amlodipine Besylate (Norvasc) 5 mg 1X ONCE 07/17/18 12:30 07/17/18 12:31 DC 07/17/18 12:51 5 MG Lisinopril (Prinivil) 20 mg 1X ONCE 07/17/18 12:30 07/17/18 12:32 DC 07/17/18 12:50 20 MG Ondansetron HCl (Zofran Odt) 4 mg 1X ONCE 07/17/18 12:30 07/17/18 12:31 DC 07/17/18 12:51 4 MG Allergies Allergies Allergies Coded Allergies Type Severity Reaction Last Updated Verified morphine Allergy Intermediate Itching 03/27/18 Yes Physical Exam Physical Exam Constitutional: Well developed, well nourished, no acute distress, non-toxic appearance. HENT: Normocephalic, atraumatic, bilateral external ears normal, oropharynx moist, no oral exudates, nose normal. Eyes: PERRLA, EOMI, conjunctiva normal, no discharge. Neck: Normal range of motion, no tenderness, supple, no stridor. Cardiovascular:Heart rate regular rhythm, no murmur, Left chest HD catheter Lungs & Thorax: Bilateral breath sounds clear to auscultation Abdomen: Bowel sounds normal, soft, no tenderness, no masses, no pulsatile masses. Skin: Warm, dry, no erythema, no rash. Back: No tenderness, no CVA tenderness. Extremities: No tenderness, no cyanosis, no clubbing, ROM intact, no edema. Neurologic: Alert and oriented X 3, normal motor function, normal sensory function, no focal deficits noted. Psychologic: Affect normal, judgement normal, mood normal. Current Patient Data Vital Signs Vital Signs Date Time Temp Pulse Resp B/P (MAP) Pulse Ox O2 Delivery O2 Flow Rate FiO2 07/17/18 12:51 94 211/98 07/17/18 12:18 98.2 16 97 Room Air 98.2 EKG EKG [] Radiology/Procedures Radiology/Procedures [] Course & Med Decision Making Course & Med Decision Making Pertinent Labs and Imaging studies reviewed. (See chart for details) 58 y/o F presents for chronic pain, out of hydrocodone. VS with elevated BP which is typical for pt - she is noncompliant with antihypertensives. She is afebrile, nontoxic appearing, lungs are clear, O2 sat is 100%. No evidence of ongoing PNA or pulm process. Will order xray per patient's request. EKG Sinus rhythm 98 bpm, LVH, no ST elev or depr. No indication for labs as pt is presenting with chronic paint hat she has had for years. K-Tracs shows that patient has filled 10 prescriptions for controlled substances since Mar 27. I explained to patient that the ER is not the appropriate place to refill her chronic pain meds. She requests discharge paperwork. Melisa Disclaimer Dragon Disclaimer This electronic medical record was generated, in whole or in part, using a voice recognition dictation system. Departure Departure Impression: Primary Impression: Chronic pain Disposition: 01 HOME, SELF-CARE Condition: STABLE Referrals: UNKNOWN PCP NAME (PCP) DAQUAN SANCHEZ MD Jul 17, 2018 12:33
--- NOTE | 2018-07-17 12:50 | RAD ---
Portable chest x-ray compared to similar study dated 07/09/2018 for pneumonia, follow-up. FINDINGS: Left IJ tunneled hemodialysis catheter is unchanged. Previously seen right basilar infiltrate is much less conspicuous, and no new lung parenchymal abnormalities are seen. Heart size remains mildly enlarged. IMPRESSION: 1. Improved right medial basilar infiltrate. Electronically signed by: Ron Taylor MD (07/17/2018 12:48 PM) [id number]
[2018-07-17 12:51] VITALS: BP 211/98
--- NOTE | 2018-07-17 16:00 | EKG ---
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
== END 2018-07-17 13:01 | disposition home or self-care (01) ==
LOC: ER 12:09
DX: G89.29 Other chronic pain (principal); I12.0 Hypertensive chronic kidney disease with stage 5 chronic kidney disease or end stage renal disease; E11.22 Type 2 diabetes mellitus with diabetic chronic kidney disease; N18.6 End stage renal disease; E03.9 Hypothyroidism, unspecified; E11.39 Type 2 diabetes mellitus with other diabetic ophthalmic complication; H40.9 Unspecified glaucoma; E11.40 Type 2 diabetes mellitus with diabetic neuropathy, unspecified; Z99.2 Dependence on renal dialysis; Z88.5 Allergy status to narcotic agent
CPT/HCPCS: 71045; 93005; 99284; Q0162

== ENCOUNTER 2018-08-22 09:01 | Emergency (ER) | payer OTHER ==
[~2018-08-22] VITALS: Ht 157.5 cm; Wt 45.4 kg
--- NOTE | 2018-08-22 09:25 | PHYS DOC ---
Past Medical History Past Medical History: Diabetes-Type II, Glaucoma, Hypertension, Hypothyroid, Renal Disease, Renal Failure, Other Additional Past Medical Histor: neuropathy, cataracts,CHRONIC PAIN,ESRD Past Surgical History: Hysterectomy, Other Additional Past Surgical Histo: PT POOR HISTORIAN,DIALYSIS CATHETER L. CHEST Alcohol Use: None Drug Use: None Adult General Chief Complaint Chief Complaint: WEAKNESS/GENERALIZED HPI HPI Patient is a 58 year old female with history of diabetes type 2, hypertension, end-stage renal disease on dialysis Monday, Monday, Monday last dialyzed MondayAugust 13, who presents to the ED today complaining of a 10 out of 10 generalized pain throughout her body that is chronic but got worse today. Patient denies any known injury. Denies anything exacerbating or relieving her pain. She is well known to this ED for pain related complaints. Patient states she has missed dialysis because the person who is supposed to take her for her dialysis has not shown up a couple times. She states she does not have anyone else to take her to dialysis. Denies any chest pain or shortness of breath. Review of Systems Review of Systems Constitutional: Denies fever or chills [] Eyes: Denies change in visual acuity, redness, or eye pain [] HENT: Denies nasal congestion or sore throat [] Respiratory: Denies cough or shortness of breath [] Cardiovascular: No additional information not addressed in HPI [] GI: Denies abdominal pain, nausea, vomiting, bloody stools or diarrhea [] : Denies dysuria or hematuria [] Musculoskeletal: Denies back pain or joint pain [] Integument: Denies rash or skin lesions [] Neurologic: Denies headache, focal weakness or sensory changes [] Endocrine: ESRD On dialysis Monday. All other systems were reviewed and found to be within normal limits, except as documented in this note. Current Medications Current Medications Current Medications Medications (Trade) Dose Ordered Sig/Clarence Start Time Stop Time Status Last Admin Dose Admin Alprazolam (Xanax) 0.5 mg 1X ONCE 08/22/18 09:45 08/22/18 09:46 DC 08/22/18 09:43 0.5 MG Fentanyl Citrate (Fentanyl 2ml Vial) 50 mcg 1X ONCE 08/22/18 11:00 08/22/18 11:01 DC 08/22/18 10:52 50 MCG Ondansetron HCl (Zofran Odt) 4 mg 1X ONCE 08/22/18 09:30 08/22/18 09:31 DC 08/22/18 09:43 4 MG Ondansetron HCl (Zofran) 4 mg 1X ONCE 08/22/18 09:30 08/22/18 09:31 Cancel Allergies Allergies Allergies Coded Allergies Type Severity Reaction Last Updated Verified morphine Allergy Intermediate Itching 03/27/18 Yes Physical Exam Physical Exam Constitutional: Well developed, well nourished, no acute distress, non-toxic appearance. [] HENT: Normocephalic, atraumatic, bilateral external ears normal, oropharynx moist, no oral exudates, nose normal. [] Eyes: PERRLA, EOMI, conjunctiva normal, no discharge. [] Neck: Normal range of motion, no tenderness, supple, no stridor. [] Cardiovascular:Heart rate regular rhythm, no murmur [] Lungs & Thorax: Bilateral breath sounds clear to auscultation [] Abdomen: Bowel sounds normal, soft, no tenderness, no masses, no pulsatile masses. [] Skin: Warm,very dry skin, no erythema, no rash. [] Back: No tenderness, no CVA tenderness. [] Extremities: No tenderness, no cyanosis, no clubbing, ROM intact, no edema. [] Neurologic: Alert and oriented X 3, normal motor function, normal sensory function, no focal deficits noted. [] Psychologic: Affect normal, judgement normal, mood normal. [] Current Patient Data Vital Signs Vital Signs Date Time Temp Pulse Resp B/P (MAP) Pulse Ox O2 Delivery O2 Flow Rate FiO2 08/22/18 10:52 96 08/22/18 09:44 Room Air 08/22/18 09:01 98.0 98 18 142/96 (111) 98.0 Lab Values Laboratory Tests Test 08/22/18 09:45 White Blood Count 10.6 x10^3/uL (4.0-11.0) Red Blood Count 3.60 x10^6/uL (3.50-5.40) Hemoglobin 10.8 g/dL (12.0-15.5) L Hematocrit 32.9 % (36.0-47.0) L Mean Corpuscular Volume 91 fL (79-100) Mean Corpuscular Hemoglobin 30 pg (25-35) Mean Corpuscular Hemoglobin Concent 33 g/dL (31-37) Red Cell Distribution Width 18.0 % (11.5-14.5) H Platelet Count 366 x10^3/uL (140-400) Neutrophils (%) (Auto) 71 % (31-73) Lymphocytes (%) (Auto) 20 % (24-48) L Monocytes (%) (Auto) 8 % (0-9) Eosinophils (%) (Auto) 1 % (0-3) Basophils (%) (Auto) 1 % (0-3) Neutrophils # (Auto) 7.5 x10^3uL (1.8-7.7) Lymphocytes # (Auto) 2.1 x10^3/uL (1.0-4.8) Monocytes # (Auto) 0.8 x10^3/uL (0.0-1.1) Eosinophils # (Auto) 0.1 x10^3/uL (0.0-0.7) Basophils # (Auto) 0.1 x10^3/uL (0.0-0.2) Sodium Level 144 mmol/L (136-145) Potassium Level 4.2 mmol/L (3.5-5.1) Chloride Level 104 mmol/L (98-107) Carbon Dioxide Level 24 mmol/L (21-32) Anion Gap 16 (6-14) H Blood Urea Nitrogen 39 mg/dL (7-20) H Creatinine 7.7 mg/dL (0.6-1.0) H Estimated GFR (Cockcroft-Gault) 6.6 BUN/Creatinine Ratio 5 (6-20) L Glucose Level 119 mg/dL (70-99) H Calcium Level 9.1 mg/dL (8.5-10.1) Magnesium Level 2.4 mg/dL (1.8-2.4) Total Bilirubin 0.5 mg/dL (0.2-1.0) Aspartate Amino Transferase (AST) 39 U/L (15-37) H Alanine Aminotransferase (ALT) 46 U/L (14-59) Alkaline Phosphatase 96 U/L (46-116) Creatine Kinase 123 U/L (26-192) Creatine Kinase MB (Mass) 3.4 ng/mL (0.0-3.6) Creatine Kinase MB Relative Index 2.8 % (0-4) Troponin I Quantitative 0.106 ng/mL (0.000-0.055) NI-Ncs-K-Type Natriuretic Peptide > 80905 pg/mL (0-124) H Total Protein 6.7 g/dL (6.4-8.2) Albumin 3.4 g/dL (3.4-5.0) Albumin/Globulin Ratio 1.0 (1.0-1.7) Thyroid Stimulating Hormone (TSH) 2.938 uIU/mL (0.358-3.74) Laboratory Tests 08/22/18 09:45 Laboratory Tests 08/22/18 09:45 EKG EKG [address] Alcala sinus rhythm, non specific ST, T changes no STEMI, EKG unchanged from 07/17/2018 Radiology/Procedures Radiology/Procedures []PROCEDURE: PORTABLE CHEST 1V EXAM: CHEST 1 VIEW History: Weakness COMPARISON: 07/17/2018 TECHNIQUE: Single portable radiograph of the chest FINDINGS: Mild cardiomegaly. Left-sided dialysis catheter is identified. Moderate diffuse prominent appearing bilateral interstitial lung markings. IMPRESSION: Moderate diffuse interstitial lung markings likely congestive changes. Electronically signed by: Amrit Lopez MD (08/22/2018 9:46 AM) [facility] DICTATED and SIGNED BY: AMRIT LOPEZ MD DATE: 08/22/18 0946 Course & Med Decision Making Course & Med Decision Making Pertinent Labs and Imaging studies reviewed. (See chart for details) This is a 58-year-old female patient on dialysis Monday presenting to the ED today complaining of generalized pain as well as missing dialysis. She was last dialyzed on July. Vitals on arrival to the ED temperature 98.0 blood pressure 142/96 respiration 18 on room air O2 sats 96% on room air heart rate 98. Patient is well known to this ED for chronic pain complaints especially low back pain. CBC with a normal WBC. Hemoglobin and hematocrit on baseline, CMP with normal potassium. Creatinine 7.7, BUN 39. Troponin 0.106, patient has no chest pain, patient is well known for high troponin during her visits. This is actually lower than her baseline. Chest x-ray noted for CHF. BNP 35,000 which is normal patient's BNP anytime she comes to the ED. She is scheduled for dialysis today at 2:30. She was discharged to home. She will head to dialysis this afternoon, sister will drive her. Melisa Disclaimer Melisa Disclaimer This electronic medical record was generated, in whole or in part, using a voice recognition dictation system. Departure Departure Impression: Primary Impression: ESRD (end stage renal disease) Additional Impressions: Chronic back pain Elevated troponin CHF (congestive heart failure) Disposition: HOME, SELF-CARE Condition: STABLE Referrals: UNKNOWN PCP NAME (PCP) Please follow-up with your doctor as soon as possible Patient Instructions: Back Pain, Adult, End Stage Kidney Disease Additional Instructions: You were seen for chronic pain, please follow up with your doctor as soon as you can. Make sure you go to dialysis today. Problem Qualifiers Additional Impressions: Chronic back pain Back pain location: low back pain Back pain laterality: bilateral Sciatica presence: with sciatica Sciatica laterality: sciatica of left side Qualified Codes: M54.42 - Lumbago with sciatica, left side; G89.29 - Other chronic pain CHF (congestive heart failure) Heart failure type: unspecified Heart failure chronicity: chronic Qualified Codes: I50.9 - Heart failure, unspecified JOAN CHACON [employer]TRASONIC HAND SOLDERER August 22, 2018 09:25
[2018-08-22] MEDS ORDERED: fentaNYL PF VIAL 100 MCG/2 ML VIAL IM ONE ×2 (09:30→11:00)
[2018-08-22] MEDS ORDERED: ONDANSETRON ODT 4 MG TAB.RAPDIS. PO ONE (09:30)
[2018-08-22] MEDS ORDERED: ONDANSETRON PF 4 MG/2 ML VIAL. IV ONE (09:30)
[2018-08-22] MEDS ORDERED: fentaNYL PF VIAL 100 MCG/2 ML VIAL IV PRN (09:30)
[2018-08-22] MEDS ORDERED: ALPRAZolam 0.5 MG TABLET PO ONE (09:45)
--- NOTE | 2018-08-22 09:49 | RAD ---
EXAM: CHEST 1 VIEW History: Weakness COMPARISON: 07/17/2018 TECHNIQUE: Single portable radiograph of the chest FINDINGS: Mild cardiomegaly. Left-sided dialysis catheter is identified. Moderate diffuse prominent appearing bilateral interstitial lung markings. IMPRESSION: Moderate diffuse interstitial lung markings likely congestive changes. Electronically signed by: Amrit Lopez MD (08/22/2018 9:46 AM) [place] [id number]
[2018-08-22 09:56] LABS: BASO # 0.1 x10^3/uL (0.0-0.2); BASO % 1 % (0-3); EOS # 0.1 x10^3/uL (0.0-0.7); EOS % 1 % (0-3); HEMATOCRIT 32.9 % (36.0-47.0); HEMOGLOBIN 10.8 g/dL (12.0-15.5); LYMPH # 2.1 x10^3/uL (1.0-4.8); LYMPH % 20 % (24-48); MEAN CORPUSCULAR HEMOGLOBIN 30 pg (25-35); MEAN CORPUSCULAR HGB CONC 33 g/dL (31-37); MEAN CORPUSCULAR VOLUME 91 fL (79-100); MONO # 0.8 x10^3/uL (0.0-1.1); MONO % 8 % (0-9); NEUT # 7.5 x10^3uL (1.8-7.7); NEUT % 71 % (31-73); PLATELET COUNT 366 x10^3/uL (140-400); WHITE BLOOD COUNT 10.6 x10^3/uL (4.0-11.0)
[2018-08-22 10:10] LABS: CALCIUM 9.1 mg/dL (8.5-10.1); CREATININE 7.7 mg/dL (0.6-1.0); GFR 6.6; POTASSIUM 4.2 mmol/L (3.5-5.1)
[2018-08-22 10:25] LABS: ALBUMIN 3.4 g/dL (3.4-5.0); MAGNESIUM 2.4 mg/dL (1.8-2.4); TOTAL BILIRUBIN 0.5 mg/dL (0.2-1.0); TOTAL PROTEIN 6.7 g/dL (6.4-8.2)
[2018-08-22 10:30] LABS: CREATINE KINASE 123 U/L (26-192)
[2018-08-22 11:10] VITALS: BP 179/130
--- NOTE | 2018-08-22 14:07 | EKG ---
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
== END 2018-08-22 11:39 | disposition home or self-care (01) ==
LOC: ER 09:01
DX: G89.29 Other chronic pain (principal); M54.42 Lumbago with sciatica, left side; I13.2 Hypertensive heart and chronic kidney disease with heart failure and with stage 5 chronic kidney disease, or end stage renal disease; E11.22 Type 2 diabetes mellitus with diabetic chronic kidney disease; N18.6 End stage renal disease; I50.9 Heart failure, unspecified; Z99.2 Dependence on renal dialysis; E11.40 Type 2 diabetes mellitus with diabetic neuropathy, unspecified; E11.39 Type 2 diabetes mellitus with other diabetic ophthalmic complication; H40.9 Unspecified glaucoma; E03.9 Hypothyroidism, unspecified; Z90.710 Acquired absence of both cervix and uterus; Z88.5 Allergy status to narcotic agent
CPT/HCPCS: 36415; 71045; 80053; 82553; 83735; 83880; 84443; 84484; 85025; 93005; 96372; J3010; Q0162; 99285-25

== ENCOUNTER 2018-08-24 04:51 | Inpatient (IN) | payer OTHER ==
[~2018-08-24] VITALS: Ht 157.5 cm; Wt 54.1 kg
[2018-08-24 05:11] LABS: BASO # 0.2 x10^3/uL (0.0-0.2); BASO % 1 % (0-3); EOS % 0 % (0-3); HEMATOCRIT 29.3 % (36.0-47.0); HEMOGLOBIN 9.8 g/dL (12.0-15.5); LYMPH # 1.7 x10^3/uL (1.0-4.8); LYMPH % 15 % (24-48); MEAN CORPUSCULAR HEMOGLOBIN 31 pg (25-35); MEAN CORPUSCULAR HGB CONC 34 g/dL (31-37); MEAN CORPUSCULAR VOLUME 91 fL (79-100); MONO # 0.7 x10^3/uL (0.0-1.1); MONO % 6 % (0-9); NEUT # 9.2 x10^3uL (1.8-7.7); NEUT % 78 % (31-73); PLATELET COUNT 320 x10^3/uL (140-400); RED BLOOD COUNT 3.21 x10^6/uL (3.50-5.40); WHITE BLOOD COUNT 11.8 x10^3/uL (4.0-11.0)
--- NOTE | 2018-08-24 05:15 | PHYS DOC ---
Past Medical History Past Medical History: Diabetes-Type II, Glaucoma, Hypertension, Hypothyroid, Renal Disease, Renal Failure, Other Additional Past Medical Histor: neuropathy, cataracts,CHRONIC PAIN,ESRD Past Surgical History: Hysterectomy, Other Additional Past Surgical Histo: PT POOR HISTORIAN,DIALYSIS CATHETER L. CHEST Smoking: Quit Greater Than 1 Year Alcohol Use: None Drug Use: None Adult General Chief Complaint Chief Complaint: CHEST PAIN HPI HPI 58-year-old female presents via EMS with report of acute on chronic chest and back pain. Patient reports she was unable to sleep last night. Patient was seen 2 days ago in ED for similar. Patient has past medical history of end-stage renal disease on hemodialysis Monday/Monday/Monday. Denies known trauma. Denies fever or chills. Denies cough. Review of Systems Review of Systems Constitutional: Denies fever or chills Eyes: Denies redness or eye pain HENT: Denies nasal congestion or sore throat Respiratory: Denies cough or shortness of breath Cardiovascular: Reports chest pain GI: Denies abdominal pain, nausea, or vomiting : Denies dysuria or hematuria Musculoskeletal: Reports back pain Integument: Denies rash or skin lesions Neurologic: Denies headache, focal weakness or sensory changes Complete systems were reviewed and found to be within normal limits, except as documented in this note. Current Medications Current Medications Current Medications Medications (Trade) Dose Ordered Sig/Clarence Start Time Stop Time Status Last Admin Dose Admin Aspirin (Molly Aspirin) 325 mg 1X ONCE 08/24/18 05:30 08/24/18 05:31 DC 08/24/18 05:30 325 MG Fentanyl Citrate (Fentanyl 2ml Vial) 50 mcg 1X ONCE 08/24/18 05:30 08/24/18 05:31 DC 08/24/18 05:32 50 MCG Allergies Allergies Allergies Coded Allergies Type Severity Reaction Last Updated Verified morphine Allergy Intermediate Itching 03/27/18 Yes Physical Exam Physical Exam Constitutional: Well developed, well nourished, no acute distress, non-toxic appearance HENT: Normocephalic, atraumatic, oropharynx moist Eyes: Conjunctiva normal, no discharge Neck: Normal range of motion, no tenderness, supple Cardiovascular: Heart rate normal, regular rhythm Lungs & Thorax: Bilateral breath sounds clear to auscultation, no wheezing, chest wall pain to palpation Abdomen: Soft, no tenderness Skin: Warm, dry, no erythema, no rash Extremities: No tenderness, ROM intact, no edema Neurologic: Alert and oriented X 3, normal motor function, normal sensory function, no focal deficits noted Psychologic: Affect anxious, judgement normal Current Patient Data Vital Signs Vital Signs Date Time Temp Pulse Resp B/P (MAP) Pulse Ox O2 Delivery O2 Flow Rate FiO2 08/24/18 05:32 20 96 Room Air 08/24/18 05:06 98.4 62 112/63 (79) 98.4 Lab Values Laboratory Tests Test 08/24/18 04:55 White Blood Count 11.8 x10^3/uL (4.0-11.0) H Red Blood Count 3.21 x10^6/uL (3.50-5.40) L Hemoglobin 9.8 g/dL (12.0-15.5) L Hematocrit 29.3 % (36.0-47.0) L Mean Corpuscular Volume 91 fL (79-100) Mean Corpuscular Hemoglobin 31 pg (25-35) Mean Corpuscular Hemoglobin Concent 34 g/dL (31-37) Red Cell Distribution Width 18.0 % (11.5-14.5) H Platelet Count 320 x10^3/uL (140-400) Neutrophils (%) (Auto) 78 % (31-73) H Lymphocytes (%) (Auto) 15 % (24-48) L Monocytes (%) (Auto) 6 % (0-9) Eosinophils (%) (Auto) 0 % (0-3) Basophils (%) (Auto) 1 % (0-3) Neutrophils # (Auto) 9.2 x10^3uL (1.8-7.7) H Lymphocytes # (Auto) 1.7 x10^3/uL (1.0-4.8) Monocytes # (Auto) 0.7 x10^3/uL (0.0-1.1) Eosinophils # (Auto) 0.0 x10^3/uL (0.0-0.7) Basophils # (Auto) 0.2 x10^3/uL (0.0-0.2) Prothrombin Time 13.1 SEC (11.7-14.0) Prothrombin Time INR 1.0 (0.8-1.1) PTT 28 SEC (24-38) Sodium Level 143 mmol/L (136-145) Potassium Level 4.1 mmol/L (3.5-5.1) Chloride Level 103 mmol/L (98-107) Carbon Dioxide Level 26 mmol/L (21-32) Anion Gap 14 (6-14) Blood Urea Nitrogen 51 mg/dL (7-20) H Creatinine 7.7 mg/dL (0.6-1.0) H Estimated GFR (Cockcroft-Gault) 6.6 BUN/Creatinine Ratio 7 (6-20) Glucose Level 122 mg/dL (70-99) H Calcium Level 8.8 mg/dL (8.5-10.1) Magnesium Level 2.2 mg/dL (1.8-2.4) Total Bilirubin 0.4 mg/dL (0.2-1.0) Aspartate Amino Transferase (AST) 30 U/L (15-37) Alanine Aminotransferase (ALT) 34 U/L (14-59) Alkaline Phosphatase 82 U/L (46-116) Creatine Kinase 160 U/L (26-192) Creatine Kinase MB (Mass) 3.1 ng/mL (0.0-3.6) Creatine Kinase MB Relative Index 1.9 % (0-4) Troponin I Quantitative 0.081 ng/mL (0.000-0.055) Total Protein 6.7 g/dL (6.4-8.2) Albumin 3.1 g/dL (3.4-5.0) L Albumin/Globulin Ratio 0.9 (1.0-1.7) L Lipase 343 U/L (73-393) Laboratory Tests 08/24/18 04:55 Laboratory Tests 08/24/18 04:55 EKG EKG @0459 Sinus tachycardia at 103bpm, NO ST elevation, occasional PVC noted, T wave inversion I and aVL and V5-V6 Radiology/Procedures Radiology/Procedures [] Course & Med Decision Making Course & Med Decision Making Pertinent Labs and Imaging studies reviewed. (See chart for details) Patient with pmh of ESRD on HD M/W/F presents via EMS with reports of acute on chronic chest and back pain. Patient seen in ED for similar on Mon08/22/18. EKG stable. Labs obtained and posted to chart. Troponin elevated but less than prior. CXR stable. Pain addressed. HEART score 6. Given patient seen 2 days ago with similar and now with continued pain, will admit patient for further evaluation and treatment. Patient requiring admission for further evaluation and treatment. Discussed with Dr. Talley (hospitalist) who is in agreement with admission. Discussed findings and plan with patient, who acknowledges understanding and agreement. Dragon Disclaimer Dragon Disclaimer This electronic medical record was generated, in whole or in part, using a voice recognition dictation system. Departure Departure Impression: Primary Impression: Chest pain Additional Impressions: Back pain ESRD (end stage renal disease) Elevated troponin Disposition: ADMITTED INPATIENT Admitting Physician: SOFI (Dr. Talley) Condition: GUARDED Referrals: UNKNOWN PCP NAME (PCP) The HEART Score for CP Pts HEART Score for Chest Pain: HEART Score for Chest Pain Response (Comments) Value History Moderately Suspicious 1 ECG Nonspecific Repolarizatio 1 Age >45 - < 65 1 Risk Factors >3 Risk Factors or Hx CAD 2 Troponin >1-<3x Normal Limit 1 Total 6 Risk Factors: Risk Factors: DM, Current or recent (<one month) smoker, HTN, HLP, family history of CAD, obesity. Risk Scores: Score 0 - 3: 2.5% MACE over next 6 weeks - Discharge Home Score 4 - 6: 20.3% MACE over next 6 weeks - Admit for Clinical Observation Score 7 - 10: 72.7% MACE over next 6 weeks - Early Invasive Strategies Critical Care Time Critical care time was 30 minutes which includes time at bedside, spent in discussion of patient's care with specialists and/or family members, with interpretation of laboratory and/or radiological studies and is exclusive of procedures. Problem Qualifiers Primary Impression: Chest pain Chest pain type: unspecified Qualified Codes: R07.9 - Chest pain, unspecified Additional Impressions: Back pain Back pain location: thoracic back pain Chronicity: chronic Back pain laterality: unspecified Qualified Codes: M54.6 - Pain in thoracic spine; G89.29 - Other chronic pain MARQUISE ZAMBRANO DO August 24, 2018 05:15
[2018-08-24 05:21] LABS: PROTHROMBIN TIME PATIENT 13.1 SEC (11.7-14.0)
[2018-08-24 05:22] LABS: CALCIUM 8.8 mg/dL (8.5-10.1); CREATININE 7.7 mg/dL (0.6-1.0); GFR 6.6; POTASSIUM 4.1 mmol/L (3.5-5.1)
[2018-08-24 05:28] LABS: ALBUMIN 3.1 g/dL (3.4-5.0); ALBUMIN/GLOBULIN RATIO 0.9 (1.0-1.7); MAGNESIUM 2.2 mg/dL (1.8-2.4); TOTAL BILIRUBIN 0.4 mg/dL (0.2-1.0); TOTAL PROTEIN 6.7 g/dL (6.4-8.2)
[2018-08-24] MEDS ORDERED: ASPIRIN 325 MG TABLET PO ONE (05:30)
[2018-08-24] MEDS ORDERED: fentaNYL PF VIAL 100 MCG/2 ML VIAL IV ONE ×2 (05:30→06:45)
--- NOTE | 2018-08-24 06:07 | EKG ---
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
[2018-08-24] MEDS ORDERED: ONDANSETRON PF 4 MG/2 ML VIAL. IV PRN (06:15)
[2018-08-24] MEDS ORDERED: HEPARIN PF 500 UNIT/5 ML DISP.SYRIN. IV ONE (06:15)
[2018-08-24] MEDS ORDERED: LORazepam 0.5 MG TABLET PO ONE (06:15)
[2018-08-24] MEDS ORDERED: DEXTROSE 50% 25 GM / 50ML DISP.SYRIN. IV PRN (06:15)
[2018-08-24 07:40] VITALS: BP 180/90
[2018-08-24] MEDS: INSULIN LISPRO 300 UNITS/3 ML INSULN.PEN. SQ SCH ×3 (07:53→17:00)
--- NOTE | 2018-08-24 08:12 | PDOC1 ---
History and Physical Date of Admission Date of Admission DATE: 08/24/18 TIME: 08:09 Identification/Chief Complaint Chief Complaint Chest pain History of Present Illness History of Present Illness Ms. Salazar, is a 57 year old F w/ PMHx ESRD on HD M/W/F presents via EMS with reports of acute on chronic chest and back pain. Patient seen in ED for similar on 08/22/18. Troponin elevated but less than prior. CXR stable (was recently treated for pneumonia). EKG shows sinus tachycardia at 103bpm, NO ST elevation, occasional PVC noted, T wave inversion I and aVL and V5-V6. This morning has multiple complaints. She notes nausea and vomiting as well as chest pain, substernal radiating into her neck 09/03, crushing in quality. She also notes RLQ pain, loose bowels and right hip pain that "shoots up into my neck". She also notes she struck her left foot on some wood while walking barefoot, now notes it is intermittently numb and painful in her left 5th toe. Past Medical History Cardiovascular: CHF, HTN, Hyperlipidemia Pulmonary: Asthma, COPD CENTRAL NERVOUS SYSTEM: Periperal neuropathy GI: No pertinent hx Heme/Onc: No pertinent hx Hepatobiliary: No pertinent hx Psych: Anxiety Rheumatologic: Fibromyalgia Infectious disease: No pertinent hx Renal/: Chronic renal failure Endocrine: Diabetes, Hypothyroidism, Hyperparathyroidism Past Surgical History Past Surgical History: No pertinent history Family History Family History: Other Social History Smoke: 1 pack per day ALCOHOL: other Drugs: Cocaine, Marijuana Current Problem List Problem List Problems Medical Problems: (1) Back pain Status: Acute Current Medications Current Medications Current Medications Aspirin (Molly Aspirin) 325 mg 1X ONCE PO Last administered on 08/24/18at 05:30; Start 08/24/18 at 05:30; Stop 08/24/18 at 05:31; Status DC Fentanyl Citrate (Fentanyl 2ml Vial) 50 mcg 1X ONCE IV Last administered on 08/24/18at 05:32; Start 08/24/18 at 05:30; Stop 08/24/18 at 05:31; Status DC Ondansetron HCl (Zofran) 4 mg PRN Q8HRS PRN IV NAUSEA/VOMITING; Start 08/24/18 at 06:15; Stop 08/25/18 at 06:14 Fentanyl Citrate (Fentanyl 2ml Vial) 50 mcg PRN Q2HRS PRN IV PAIN; Start 08/24/18 at 06:15 Insulin Human Lispro (HumaLOG) 0-5 UNITS TIDWMEALS SQ ; Start 08/24/18 at 08:00 Dextrose (Dextrose 50%-Water Syringe) 12.5 gm PRN Q15MIN PRN IV SEE COMMENTS; Start 08/24/18 at 06:15 Lorazepam (Ativan) 0.5 mg 1X ONCE PO ; Start 08/24/18 at 06:15; Stop 08/24/18 at 06:16; Status DC Heparin Sodium (Porcine) (Hep Lock Adult) 500 unit 1X ONCE IV ; Start 08/24/18 at 06:15; Stop 08/24/18 at 06:16; Status DC Fentanyl Citrate (Fentanyl 2ml Vial) 25 mcg 1X ONCE IV Last administered on 08/24/18at 07:14; Start 08/24/18 at 06:45; Stop 08/24/18 at 06:46; Status DC Active Scripts Active Hydrocodone-Apap 5-325 (Hydrocodone Bit/Acetaminophen) 1 Tab Tablet 1 Tab PO PRN Q4HRS PRN 6 Days Alprazolam 0.5 Mg Tablet 0.5 Mg PO PRN TID PRN MDD 1 [Pantoprazole] 40 MG Tablet. 40 Mg PO DAILYAC 30 Days Reported Zoloft (Sertraline Hcl) 50 Mg Tablet 50 Mg PO DAILY Lisinopril 20 Mg Tablet 20 Mg PO DAILY Coreg (Carvedilol) 6.25 Mg Tablet 6.25 Mg PO BIDWMEALS Creon 6,000 Units Capsule (Lipase/Protease/Amylase) 1 Each Capsule. 1 Tab PO TID Proair Hfa (Albuterol Sulfate) 8.5 Gm Hfa.aer.ad 2 Puff INH BID PRN Levothyroxine Sodium 50 Mcg Tablet 1 Tab PO DAILY Clonidine Tts-2 (Clonidine) 1 Each Patch.tdwk 1 Patch TD WEEKLY Amlodipine Besylate 5 Mg Tablet 10 Mg PO DAILY Atorvastatin Calcium 40 Mg Tablet 40 Mg PO HS Latanoprost 2.5 Ml Drops 1 Drop EACHEYE HS Allergies Allergies: Coded Allergies: morphine (Verified Allergy, Intermediate, Itching, 03/27/18) ROS General: YES: Fatigue, Malaise, Appetite PSYCHOLOGICAL ROS: YES: Depression, Irritablity; No: Anxiety, Behavioral Disorder, Concentration difficultie, Decreased libido, Disorientation, Hallucinations, Hostility, Memory difficulties, Mood Swings, Obsessive thoughts, Physical abuse, Sexual abuse, Sleep disturbances, Suicidal ideation, Other Eyes: No Blurry vision, No Decreased vision, No Double vision, No Dry eyes, No Excessive tearing, No Eye Pain, No Itchy Eyes, No Loss of vision, No Photophobia, No Scotomata, No Uses contacts, No Uses glasses, No Other HEENT: YES: Heacaches; No: Visual Changes, Hearing change, Nasal congestion, Nasal discharge, Oral lesions, Sinus pain, Sore Throat, Epistaxis, Sneezing, Snoring, Tinnitus, Vertigo, Vocal changes, Other ALLERGY AND IMMUNOLOGY: No: Hives, Insect Bite Sensitivity, Itchy/Watery Eyes, Nasal Congestion, Post Nasal Drip, Seasonal Allergies, Other Hematological and Lymphatic: No: Bleeding Problems, Blood Clots, Blood Dietz sfusions, Brusing, Night Sweats, Pallor, Swollen Lymph Nodes, Other ENDOCRINE: No: Breast Changes, Galactorrhea, Hair Pattern Changes, Hot Flashes, Malaise/lethargy, Mood Swings, Palpitations, Polydipsia/polyuria, Skin Changes, Temperature Intolerance, Unexpected Weight Changes, Other Breast: No New/Changing Breast Lumps, No Nipple changes, No Nipple discharge, No Other Respiratory: YES: Cough, Shortness of breath; No: Hemoptysis, Orthopnea, Pleuritic Pain, SOB with excertion, Sputum Changes, Stridor, Tachypnea, Wheezing, Other Cardiovascular: yes Chest Pain, yes Palpitations; No Orthopnea, No Paroxysmal Noc. Dyspnea, No Edema, No Lt Headedness, No Other Gastrointestinal: Yes Nausea, Yes Vomiting, Yes Abdominal Pain, Yes Diarrhea; No Constipation, No Melena, No Hematochezia, No Other Genitourinary: No Dysuria, No Frequency, No Incontinence, No Hematuria, No Retention, No Discharge, No Urgency, No Pain, No Flank Pain, No Other, No , No , No , No , No , No , No Musculoskeletal: Yes Gait Disturbance, Yes Joint Pain; No Joint Stiffness, No Joint Swelling, No Muscle Pain, No Muscular Weakness, No Pain In:, No Swelling In:, No Other Neurological: No Behavorial Changes, No Bowel/Bladder ControlChng, No Confusion, No Dizziness, No Gait Disturbance, No Headaches, No Impaired Coord/balance, No Memory Loss, No Numbness/Tingling, No Seizures, No Speech Problems, No Tremors, No Visual Changes, No Weakness, No Other Skin: Yes Dry Skin, Yes Eczema; No Hair Changes, No Lumps, No Mole Changes, No Mottling, No Nail Changes, No Pruritus, No Rash, No Skin Lesion Changes, No Other, No Acne Physical Exam General: Alert, Oriented X3, Cooperative, No acute distress HEENT: Atraumatic, PERRLA, EOMI, Mucous membr. moist/pink Lungs: Clear to auscultation, Normal air movement Heart: S1S2, RRR Abdomen: Normal bowel sounds, Soft, No hepatosplenomegaly, No masses, Other (RLQ tender) Extremities: No clubbing, No cyanosis, No edema, Normal pulses, Other (Left toes painful to palpation) Skin: Other (stasis dermatitis LE) Neuro: Normal gait, Normal speech, Strength at 5/5 X4 ext, Normal tone, Sensation intact, Cranial nerves 3-12 NL, Reflexes 2+ Psych/Mental Status: Mental status NL, Mood NL Vitals Vitals Vital Signs Date Time Temp Pulse Resp B/P (MAP) Pulse Ox O2 Delivery O2 Flow Rate FiO2 08/24/18 07:54 96 08/24/18 07:40 98.1 96 18 180/90 (120) Room Air 98.1 Labs Labs Laboratory Tests Test 08/24/18 04:55 08/24/18 07:49 White Blood Count 11.8 x10^3/uL (4.0-11.0) Red Blood Count 3.21 x10^6/uL (3.50-5.40) Hemoglobin 9.8 g/dL (12.0-15.5) Hematocrit 29.3 % (36.0-47.0) Mean Corpuscular Volume 91 fL (79-100) Mean Corpuscular Hemoglobin 31 pg (25-35) Mean Corpuscular Hemoglobin Concent 34 g/dL (31-37) Red Cell Distribution Width 18.0 % (11.5-14.5) Platelet Count 320 x10^3/uL (140-400) Neutrophils (%) (Auto) 78 % (31-73) Lymphocytes (%) (Auto) 15 % (24-48) Monocytes (%) (Auto) 6 % (0-9) Eosinophils (%) (Auto) 0 % (0-3) Basophils (%) (Auto) 1 % (0-3) Neutrophils # (Auto) 9.2 x10^3uL (1.8-7.7) Lymphocytes # (Auto) 1.7 x10^3/uL (1.0-4.8) Monocytes # (Auto) 0.7 x10^3/uL (0.0-1.1) Eosinophils # (Auto) 0.0 x10^3/uL (0.0-0.7) Basophils # (Auto) 0.2 x10^3/uL (0.0-0.2) Prothrombin Time 13.1 SEC (11.7-14.0) Prothromb Time International Ratio 1.0 (0.8-1.1) Activated Partial Thromboplast Time 28 SEC (24-38) Sodium Level 143 mmol/L (136-145) Potassium Level 4.1 mmol/L (3.5-5.1) Chloride Level 103 mmol/L (98-107) Carbon Dioxide Level 26 mmol/L (21-32) Anion Gap 14 (6-14) Blood Urea Nitrogen 51 mg/dL (7-20) Creatinine 7.7 mg/dL (0.6-1.0) Estimated GFR (Cockcroft-Gault) 6.6 BUN/Creatinine Ratio 7 (6-20) Glucose Level 122 mg/dL (70-99) Calcium Level 8.8 mg/dL (8.5-10.1) Magnesium Level 2.2 mg/dL (1.8-2.4) Total Bilirubin 0.4 mg/dL (0.2-1.0) Aspartate Amino Transf (AST/SGOT) 30 U/L (15-37) Alanine Aminotransferase (ALT/SGPT) 34 U/L (14-59) Alkaline Phosphatase 82 U/L (46-116) Creatine Kinase 160 U/L (26-192) Creatine Kinase MB (Mass) 3.1 ng/mL (0.0-3.6) Creatine Kinase MB Relative Index 1.9 % (0-4) Troponin I Quantitative 0.081 ng/mL (0.000-0.055) Total Protein 6.7 g/dL (6.4-8.2) Albumin 3.1 g/dL (3.4-5.0) Albumin/Globulin Ratio 0.9 (1.0-1.7) Lipase 343 U/L (73-393) Glucose (Fingerstick) 95 mg/dL (70-99) Laboratory Tests Test 08/24/18 04:55 08/24/18 07:49 White Blood Count 11.8 x10^3/uL (4.0-11.0) Red Blood Count 3.21 x10^6/uL (3.50-5.40) Hemoglobin 9.8 g/dL (12.0-15.5) Hematocrit 29.3 % (36.0-47.0) Mean Corpuscular Volume 91 fL (79-100) Mean Corpuscular Hemoglobin 31 pg (25-35) Mean Corpuscular Hemoglobin Concent 34 g/dL (31-37) Red Cell Distribution Width 18.0 % (11.5-14.5) Platelet Count 320 x10^3/uL (140-400) Neutrophils (%) (Auto) 78 % (31-73) Lymphocytes (%) (Auto) 15 % (24-48) Monocytes (%) (Auto) 6 % (0-9) Eosinophils (%) (Auto) 0 % (0-3) Basophils (%) (Auto) 1 % (0-3) Neutrophils # (Auto) 9.2 x10^3uL (1.8-7.7) Lymphocytes # (Auto) 1.7 x10^3/uL (1.0-4.8) Monocytes # (Auto) 0.7 x10^3/uL (0.0-1.1) Eosinophils # (Auto) 0.0 x10^3/uL (0.0-0.7) Basophils # (Auto) 0.2 x10^3/uL (0.0-0.2) Prothrombin Time 13.1 SEC (11.7-14.0) Prothromb Time International Ratio 1.0 (0.8-1.1) Activated Partial Thromboplast Time 28 SEC (24-38) Sodium Level 143 mmol/L (136-145) Potassium Level 4.1 mmol/L (3.5-5.1) Chloride Level 103 mmol/L (98-107) Carbon Dioxide Level 26 mmol/L (21-32) Anion Gap 14 (6-14) Blood Urea Nitrogen 51 mg/dL (7-20) Creatinine 7.7 mg/dL (0.6-1.0) Estimated GFR (Cockcroft-Gault) 6.6 BUN/Creatinine Ratio 7 (6-20) Glucose Level 122 mg/dL (70-99) Calcium Level 8.8 mg/dL (8.5-10.1) Magnesium Level 2.2 mg/dL (1.8-2.4) Total Bilirubin 0.4 mg/dL (0.2-1.0) Aspartate Amino Transf (AST/SGOT) 30 U/L (15-37) Alanine Aminotransferase (ALT/SGPT) 34 U/L (14-59) Alkaline Phosphatase 82 U/L (46-116) Creatine Kinase 160 U/L (26-192) Creatine Kinase MB (Mass) 3.1 ng/mL (0.0-3.6) Creatine Kinase MB Relative Index 1.9 % (0-4) Troponin I Quantitative 0.081 ng/mL (0.000-0.055) Total Protein 6.7 g/dL (6.4-8.2) Albumin 3.1 g/dL (3.4-5.0) Albumin/Globulin Ratio 0.9 (1.0-1.7) Lipase 343 U/L (73-393) Glucose (Fingerstick) 95 mg/dL (70-99) VTE Prophylaxis Ordered VTE Prophylaxis Devices: No VTE Pharmacological Prophylaxi: Yes Assessment/Plan Assessment/Plan A/P: HTN urgency - coreg and amlodipine ESRD - need dialysis regularly outpatient. Consulted nephrology Anemia - of chronic renal disease, will f/u outpatient CBC at dialysis, asymptomatic HTN - Monitor Chest pain with Troponin elevation - likely 2/2 demand, chronic. cards co nsulted. Most probably MSK in origin. Recent stress test without any evidence of ischemia or infarct. initial 0.166. multifactorial, demand mediated type 2 in the setting of ESRD Anasarca - f/u on possible esophageal mass biopsy Nausea vomiting and abdominal pain - Hypothyroidism - on replacement therapy RLQ pain, loose bowels - will monitor stool, bowel regimen while on opioids Right hip pain - will have PT to evaluate Left foot and left 5th toe pain - will X-ray toes FEN - Renal diet PPX - heparin FULL CODE Admitted to [facility] for chest pain, nausea, vomiting FELI SHAH MD August 24, 2018 08:12
[2018-08-24] MEDS ORDERED: cloNIDine TTS-2 1 PATCH PATCH TD SCH (09:00)
[2018-08-24] MEDS ORDERED: ALBUTEROL SULFATE 2.5 MG/3 ML NEBU. INH PRN (09:00)
[2018-08-24] MEDS: fentaNYL PF VIAL 100 MCG/2 ML VIAL IV PRN ×7 (09:24→22:34)
[2018-08-24] MEDS: SERTRALINE 50 MG TABLET. PO SCH (09:28)
[2018-08-24] MEDS: LEVOTHYROXINE 50 MCG TABLET PO SCH (09:28)
[2018-08-24] MEDS: PANTOPRAZOLE 40 MG TABLET.DR. PO SCH (09:28)
[2018-08-24] MEDS: amLODIPine BESYLATE 10 MG TABLET PO SCH (09:29)
[2018-08-24] MEDS: CARVEDILOL 6.25 MG TABLET. PO SCH ×2 (09:31→17:42)
--- NOTE | 2018-08-24 10:41 | PDOC2 ---
MORAIMA BERRY [employer] 08/24/18 1041: CARDIAC CONSULT DATE OF CONSULT Date of Consult DATE: 08/24/18 TIME: 10:31 REASON FOR CONSULT Reason for Consult: Chest pain REFERRING PHYSICIAN Referring Physician: Dr. Rodríguez SOURCE Source: Chart review, Patient HISTORY OF PRESENT ILLNESS HISTORY OF PRESENT ILLNESS This is a 58 yo female who presented secondary to back and chest pain. Patient reports central pain. Describes as "pain" that been occurring for "a long time". Would not provide any additional information as she "just told the other aarti" and pull the covers over her head. PAST MEDICAL HISTORY Past Medical History Cardiovascular: CHF, HTN, Hyperlipidemia Pulmonary: Asthma, COPD CENTRAL NERVOUS SYSTEM: Peripheral neuropathy GI: No pertinent hx Heme/Onc: No pertinent hx Hepatobiliary: No pertinent hx Psych: Anxiety Musculoskeletal: low back pain, Osteoarthritis Rheumatologic: Fibromyalgia Infectious disease: No pertinent hx ENT: No pertinent hx Renal/: Chronic renal failure (on HD) Endocrine: Diabetes, Hypothyroidism Dermatology: No pertinent hx PAST SURGICAL HISTORY Past Surgical History: No pertinent history FAMILY HISTORY Family History Other (noncontributory) SOCIAL HISTORY Social History Smoke: No ALCOHOL: none Drugs: marijuana Lives: with Family CURRENT MEDICATIONS CURRENT MEDICATIONS Current Medications Medications (Trade) Dose Ordered Sig/Clarence Route PRN Reason Start Time Stop Time Status Last Admin Dose Admin Aspirin (Molly Aspirin) 325 mg 1X ONCE PO 08/24/18 05:30 08/24/18 05:31 DC 08/24/18 05:30 Fentanyl Citrate (Fentanyl 2ml Vial) 50 mcg 1X ONCE IV 08/24/18 05:30 08/24/18 05:31 DC 08/24/18 05:32 Fentanyl Citrate (Fentanyl 2ml Vial) 50 mcg PRN Q2HRS PRN IV PAIN 08/24/18 06:15 08/24/18 09:24 Lorazepam (Ativan) 0.5 mg 1X ONCE PO 08/24/18 06:15 08/24/18 06:16 DC 08/24/18 09:28 Heparin Sodium (Porcine) (Hep Lock Adult) 500 unit 1X ONCE IV 08/24/18 06:15 08/24/18 06:16 DC 08/24/18 09:40 Fentanyl Citrate (Fentanyl 2ml Vial) 25 mcg 1X ONCE IV 08/24/18 06:45 08/24/18 06:46 DC 08/24/18 07:14 Amlodipine Besylate (Norvasc) 10 mg DAILY PO 08/24/18 09:00 08/24/18 09:29 Carvedilol (Coreg) 6.25 mg BIDWMEALS PO 08/24/18 09:00 08/24/18 09:31 Clonidine HCl (Catapres Tts-2) 1 patch WEEKLY TD 08/24/18 09:00 08/24/18 09:29 Sertraline HCl (Zoloft) 50 mg DAILY PO 08/24/18 09:00 08/24/18 09:28 Levothyroxine Sodium (Synthroid) 50 mcg DAILY06 PO 08/24/18 09:00 08/24/18 09:28 Amylase/Lipase/ Protease (Zenpep 5,000) 1 cap TIDWMEALS PO 08/24/18 09:00 08/24/18 09:30 Pantoprazole Sodium (Protonix) 40 mg DAILYAC PO 08/24/18 09:00 08/24/18 09:28 ALLERGIES ALLERGIES: Coded Allergies: morphine (Verified Allergy, Intermediate, Itching, 03/27/18) ROS Review of System 14 point ROS conducted with pertinent positives noted above in HPI PHYSICAL EXAM PHYSICAL EXAM Patient refused physical assessment VITALS VITALS Vital Signs Date Time Temp Pulse Resp B/P (MAP) Pulse Ox O2 Delivery O2 Flow Rate FiO2 08/24/18 09:31 96 180/90 08/24/18 09:24 18 96 08/24/18 07:40 98.1 Room Air 98.1 LABS Lab: Laboratory Tests Test 08/24/18 04:55 08/24/18 07:49 White Blood Count 11.8 x10^3/uL (4.0-11.0) Red Blood Count 3.21 x10^6/uL (3.50-5.40) Hemoglobin 9.8 g/dL (12.0-15.5) Hematocrit 29.3 % (36.0-47.0) Mean Corpuscular Volume 91 fL (79-100) Mean Corpuscular Hemoglobin 31 pg (25-35) Mean Corpuscular Hemoglobin Concent 34 g/dL (31-37) Red Cell Distribution Width 18.0 % (11.5-14.5) Platelet Count 320 x10^3/uL (140-400) Neutrophils (%) (Auto) 78 % (31-73) Lymphocytes (%) (Auto) 15 % (24-48) Monocytes (%) (Auto) 6 % (0-9) Eosinophils (%) (Auto) 0 % (0-3) Basophils (%) (Auto) 1 % (0-3) Neutrophils # (Auto) 9.2 x10^3uL (1.8-7.7) Lymphocytes # (Auto) 1.7 x10^3/uL (1.0-4.8) Monocytes # (Auto) 0.7 x10^3/uL (0.0-1.1) Eosinophils # (Auto) 0.0 x10^3/uL (0.0-0.7) Basophils # (Auto) 0.2 x10^3/uL (0.0-0.2) Prothrombin Time 13.1 SEC (11.7-14.0) Prothromb Time International Ratio 1.0 (0.8-1.1) Activated Partial Thromboplast Time 28 SEC (24-38) Sodium Level 143 mmol/L (136-145) Potassium Level 4.1 mmol/L (3.5-5.1) Chloride Level 103 mmol/L (98-107) Carbon Dioxide Level 26 mmol/L (21-32) Anion Gap 14 (6-14) Blood Urea Nitrogen 51 mg/dL (7-20) Creatinine 7.7 mg/dL (0.6-1.0) Estimated GFR (Cockcroft-Gault) 6.6 BUN/Creatinine Ratio 7 (6-20) Glucose Level 122 mg/dL (70-99) Calcium Level 8.8 mg/dL (8.5-10.1) Magnesium Level 2.2 mg/dL (1.8-2.4) Total Bilirubin 0.4 mg/dL (0.2-1.0) Aspartate Amino Transf (AST/SGOT) 30 U/L (15-37) Alanine Aminotransferase (ALT/SGPT) 34 U/L (14-59) Alkaline Phosphatase 82 U/L (46-116) Creatine Kinase 160 U/L (26-192) Creatine Kinase MB (Mass) 3.1 ng/mL (0.0-3.6) Creatine Kinase MB Relative Index 1.9 % (0-4) Troponin I Quantitative 0.081 ng/mL (0.000-0.055) Total Protein 6.7 g/dL (6.4-8.2) Albumin 3.1 g/dL (3.4-5.0) Albumin/Globulin Ratio 0.9 (1.0-1.7) Lipase 343 U/L (73-393) Glucose (Fingerstick) 95 mg/dL (70-99) ECHOCARDIOGRAM ECHOCARDIOGRAM <Conclusion> The left ventricular systolic function is normal. The Ejection Fraction is 60-65%. There is normal LV segmental wall motion. Evidence for grade III diastolic dysfunction. There is moderate concentric left ventricular hypertrophy. Doppler and Color Flow revealed trace tricuspid valve regurgitation. There is no evidence of significant pericardial effusion. DATE: 03/05/18 1632 STRESS TEST STRESS TEST Conclusion 1. Regadenoson cardioisotope stress test did not show any evidence of ischemia or infarct. 2. Normal left ventricular systolic function with ejection fraction calculated at 51%. 3. Low risk for cardiac events. DATE: 03/26/18 1227 ASSESSMENT/PLAN ASSESSMENT/PLAN 1. Malignant hypertension; remains elevated. 2. Chest pain, atypical; Recent stress test without any evidence of ischemia or infarct as noted above. 3. Mild troponin elevation with h/o chronic troponin elevation; initial 0.081. multifactorial, demand mediated type 2 in the setting of ESRD 5. Acute on chronic diastolic CHF; CXR with mild edema 6. ESRD on HD 7. Hyperlipidemia; statin 8. DM, II; as per PCP 9. Hypothyroidism; on replacement 10. Noncompliance Recommendations Resume home antiHTN therapy including clonidine patch. Consider converting coreg to labetalol for better control Hydralazine IV PRN Fluid offloading via HD as per nephrology Supportive care from a CV standpoint PENNY KIRKPATRICK MD 08/24/18 1552: CARDIAC CONSULT ASSESSMENT/PLAN ASSESSMENT/PLAN Patient seen and examined Malignant hypertension. Medical noncompliance. Medications as above. Atypical chest pain. Recent nuclear stress testing without evidence of ischemia or infarct. Consistent with musculoskeletal pain. End-stage renal disease. HD and fluid management as per the renal service. Minimally elevated troponin in the setting of end-stage renal disease. Mild demand ischemia. Continue present treatment. Hyperlipidemia. Continue statin medication. Noncompliance. Thank you for allowing us to participate in the care of your patient. MORAIMA BERRY APRN August 24, 2018 10:41 PENNY KIRKPATRICK MD August 24, 2018 15:52
[2018-08-24] MEDS ORDERED: hydrALAZINE 20 MG/ML VIAL. IVP PRN (11:00)
--- NOTE | 2018-08-24 11:19 | RAD ---
Left toes, 3 views, 08/24/2018: HISTORY: Fifth toe injury No fracture or dislocation is identified. Extensive arterial calcifications are present. IMPRESSION: No acute bony abnormality is detected. Electronically signed by: Danny Mullins MD (08/24/2018 11:16 AM) [facility]
[2018-08-24 11:20] VITALS: BP 158/77
--- NOTE | 2018-08-24 11:34 | PDOC2 ---
CONSULT Date of Consult Date of Consult DATE: 08/24/18 TIME: 11:31 Reason for Consult Reason for Consult: ESRD Referring Physician Referring Physician: JASON Identification/Chief Complaint Chief Complaint CHEST PAIN AND SOB Source Source: Chart review, Patient History of Present Illness Reason for Visit: THIS IS A 58 YR OLD ESRD PT WITH SOB AND CHEST PAIN. NO RADIATIONAL PAIN AND SOME TURK. SHE HAS BEEN NON COMPLIANT. SHE HAS ESRD DUE TO HTN. LABS ARE C/W ESRD Past Medical History Cardiovascular: CHF, HTN, Hyperlipidemia Pulmonary: Asthma, COPD CENTRAL NERVOUS SYSTEM: Periperal neuropathy GI: No pertinent hx Heme/Onc: No pertinent hx Hepatobiliary: No pertinent hx Psych: Anxiety Rheumatologic: Fibromyalgia Infectious disease: No pertinent hx Renal/: Chronic renal failure Endocrine: Diabetes, Hypothyroidism, Hyperparathyroidism Past Surgical History Past Surgical History: No pertinent history Family History Family History: Other Social History 1 pack per day ALCOHOL: other Drugs: Cocaine, Marijuana Lives: with Family Current Problem List Problem List Problems Medical Problems: (1) Back pain Status: Acute Current Medications Current Medications Current Medications Aspirin (Molly Aspirin) 325 mg 1X ONCE PO Last administered on 08/24/18at 05:30; Start 08/24/18 at 05:30; Stop 08/24/18 at 05:31; Status DC Fentanyl Citrate (Fentanyl 2ml Vial) 50 mcg 1X ONCE IV Last administered on 08/24/18at 05:32; Start 08/24/18 at 05:30; Stop 08/24/18 at 05:31; Status DC Ondansetron HCl (Zofran) 4 mg PRN Q8HRS PRN IV NAUSEA/VOMITING; Start 08/24/18 at 06:15; Stop 08/25/18 at 06:14 Fentanyl Citrate (Fentanyl 2ml Vial) 50 mcg PRN Q2HRS PRN IV PAIN Last administered on 08/24/18at 11:16; Start 08/24/18 at 06:15 Insulin Human Lispro (HumaLOG) 0-5 UNITS TIDWMEALS SQ ; Start 08/24/18 at 08:00 Dextrose (Dextrose 50%-Water Syringe) 12.5 gm PRN Q15MIN PRN IV SEE COMMENTS; Start 08/24/18 at 06:15 Lorazepam (Ativan) 0.5 mg 1X ONCE PO Last administered on 08/24/18at 09:28; Start 08/24/18 at 06:15; Stop 08/24/18 at 06:16; Status DC Heparin Sodium (Porcine) (Hep Lock Adult) 500 unit 1X ONCE IV Last administered on 08/24/18at 09:40; Start 08/24/18 at 06:15; Stop 08/24/18 at 06:16; Status DC Fentanyl Citrate (Fentanyl 2ml Vial) 25 mcg 1X ONCE IV Last administered on 08/24/18at 07:14; Start 08/24/18 at 06:45; Stop 08/24/18 at 06:46; Status DC Albuterol Sulfate (Ventolin Neb Soln) 2.5 mg PRN BID PRN INH SHORTNESS OF BREATH; Start 08/24/18 at 09:00 Alprazolam (Xanax) 0.5 mg PRN TID PRN PO ANXIETY / AGITATION; Start 08/24/18 at 09:00 Amlodipine Besylate (Norvasc) 10 mg DAILY PO Last administered on 08/24/18at 09:29; Start 08/24/18 at 09:00 Atorvastatin Calcium (Lipitor) 40 mg HS PO ; Start 08/24/18 at 21:00 Carvedilol (Coreg) 6.25 mg BIDWMEALS PO Last administered on 08/24/18 09:31; Start 08/24/18 at 09:00 Clonidine HCl (Catapres Tts-2) 1 patch WEEKLY TD Last administered on 08/24/18at 09:29; Start 08/24/18 at 09:00 Acetaminophen/ Hydrocodone Bitart (Lortab 5/325) 1 tab PRN Q4HRS PRN PO MILD PAIN 1-3; Start 08/24/18 at 09:00 Sertraline HCl (Zoloft) 50 mg DAILY PO Last administered on 08/24/18 09:28; Start 08/24/18 at 09:00 Latanoprost (Xalatan) 1 drop QHS OU ; Start 08/24/18 at 21:00 Levothyroxine Sodium (Synthroid) 50 mcg DAILY06 PO Last administered on 08/24/18at 09:28; Start 08/24/18 at 09:00 Amylase/Lipase/ Protease (Zenpep 5,000) 1 cap TIDWMEALS PO Last administered on 08/24/18at 09:30; Start 08/24/18 at 09:00 Pantoprazole Sodium (Protonix) 40 mg DAILYAC PO Last administered on 08/24/18at 09:28; Start 08/24/18 at 09:00 Hydralazine HCl (Apresoline Inj) 10 mg PRN Q4HRS PRN IVP ELEVATED BP, SEE COMMENTS; Start 08/24/18 at 11:00 Active Scripts Active Hydrocodone-Apap 5-325 (Hydrocodone Bit/Acetaminophen) 1 Tab Tablet 1 Tab PO PRN Q4HRS PRN 6 Days Alprazolam 0.5 Mg Tablet 0.5 Mg PO PRN TID PRN MDD 1 [Pantoprazole] 40 MG Tablet. 40 Mg PO DAILYAC 30 Days Reported Zoloft (Sertraline Hcl) 50 Mg Tablet 50 Mg PO DAILY Lisinopril 20 Mg Tablet 20 Mg PO DAILY Coreg (Carvedilol) 6.25 Mg Tablet 6.25 Mg PO BIDWMEALS Creon 6,000 Units Capsule (Lipase/Protease/Amylase) 1 Each Capsule.dr 1 Tab PO TID Proair Hfa (Albuterol Sulfate) 8.5 Gm Hfa.aer.ad 2 Puff INH BID PRN Levothyroxine Sodium 50 Mcg Tablet 1 Tab PO DAILY Clonidine Tts-2 (Clonidine) 1 Each Patch.tdwk 1 Patch TD WEEKLY Amlodipine Besylate 5 Mg Tablet 10 Mg PO DAILY Atorvastatin Calcium 40 Mg Tablet 40 Mg PO HS Latanoprost 2.5 Ml Drops 1 Drop EACHEYE HS Allergies Allergies: Coded Allergies: morphine (Verified Allergy, Intermediate, Itching, 03/27/18) ROS General: YES: Fatigue, Malaise PSYCHOLOGICAL ROS: YES: Anxiety Eyes: Yes Decreased vision HEENT: YES: [place] ALLERGY AND IMMUNOLOGY: YES: Seasonal Allergies Respiratory: YES: Cough, Shortness of breath Gastrointestinal: Yes Nausea, Yes Constipation Genitourinary: YES Other (ANURIA) Musculoskeletal: Yes Muscular Weakness Neurological: Yes Weakness Skin: Yes Dry Skin Physical Exam General: Alert, Oriented X3, Cooperative HEENT: Atraumatic, PERRLA Lungs: Clear to auscultation, Normal air movement Heart: Regular rate Abdomen: Normal bowel sounds, Soft Extremities: No clubbing, No cyanosis Skin: No breakdown Neuro: Normal speech, Sensation intact Psych/Mental Status: Mental status NL, Mood NL MUSCULOSKELETAL: No joint tenderness, No deformity, No swelling Vitals VITALS Vital Signs Date Time Temp Pulse Resp B/P (MAP) Pulse Ox O2 Delivery O2 Flow Rate FiO2 08/24/18 11:20 96.8 87 16 158/77 (104) 93 Room Air 96.8 Labs Labs Laboratory Tests Test 08/24/18 04:55 08/24/18 07:49 White Blood Count 11.8 x10^3/uL (4.0-11.0) Red Blood Count 3.21 x10^6/uL (3.50-5.40) Hemoglobin 9.8 g/dL (12.0-15.5) Hematocrit 29.3 % (36.0-47.0) Mean Corpuscular Volume 91 fL (79-100) Mean Corpuscular Hemoglobin 31 pg (25-35) Mean Corpuscular Hemoglobin Concent 34 g/dL (31-37) Red Cell Distribution Width 18.0 % (11.5-14.5) Platelet Count 320 x10^3/uL (140-400) Neutrophils (%) (Auto) 78 % (31-73) Lymphocytes (%) (Auto) 15 % (24-48) Monocytes (%) (Auto) 6 % (0-9) Eosinophils (%) (Auto) 0 % (0-3) Basophils (%) (Auto) 1 % (0-3) Neutrophils # (Auto) 9.2 x10^3uL (1.8-7.7) Lymphocytes # (Auto) 1.7 x10^3/uL (1.0-4.8) Monocytes # (Auto) 0.7 x10^3/uL (0.0-1.1) Eosinophils # (Auto) 0.0 x10^3/uL (0.0-0.7) Basophils # (Auto) 0.2 x10^3/uL (0.0-0.2) Prothrombin Time 13.1 SEC (11.7-14.0) Prothromb Time International Ratio 1.0 (0.8-1.1) Activated Partial Thromboplast Time 28 SEC (24-38) Sodium Level 143 mmol/L (136-145) Potassium Level 4.1 mmol/L (3.5-5.1) Chloride Level 103 mmol/L (98-107) Carbon Dioxide Level 26 mmol/L (21-32) Anion Gap 14 (6-14) Blood Urea Nitrogen 51 mg/dL (7-20) Creatinine 7.7 mg/dL (0.6-1.0) Estimated GFR (Cockcroft-Gault) 6.6 BUN/Creatinine Ratio 7 (6-20) Glucose Level 122 mg/dL (70-99) Calcium Level 8.8 mg/dL (8.5-10.1) Magnesium Level 2.2 mg/dL (1.8-2.4) Total Bilirubin 0.4 mg/dL (0.2-1.0) Aspartate Amino Transf (AST/SGOT) 30 U/L (15-37) Alanine Aminotransferase (ALT/SGPT) 34 U/L (14-59) Alkaline Phosphatase 82 U/L (46-116) Creatine Kinase 160 U/L (26-192) Creatine Kinase MB (Mass) 3.1 ng/mL (0.0-3.6) Creatine Kinase MB Relative Index 1.9 % (0-4) Troponin I Quantitative 0.081 ng/mL (0.000-0.055) Total Protein 6.7 g/dL (6.4-8.2) Albumin 3.1 g/dL (3.4-5.0) Albumin/Globulin Ratio 0.9 (1.0-1.7) Lipase 343 U/L (73-393) Glucose (Fingerstick) 95 mg/dL (70-99) Laboratory Tests Test 08/24/18 04:55 08/24/18 07:49 White Blood Count 11.8 x10^3/uL (4.0-11.0) Red Blood Count 3.21 x10^6/uL (3.50-5.40) Hemoglobin 9.8 g/dL (12.0-15.5) Hematocrit 29.3 % (36.0-47.0) Mean Corpuscular Volume 91 fL (79-100) Mean Corpuscular Hemoglobin 31 pg (25-35) Mean Corpuscular Hemoglobin Concent 34 g/dL (31-37) Red Cell Distribution Width 18.0 % (11.5-14.5) Platelet Count 320 x10^3/uL (140-400) Neutrophils (%) (Auto) 78 % (31-73) Lymphocytes (%) (Auto) 15 % (24-48) Monocytes (%) (Auto) 6 % (0-9) Eosinophils (%) (Auto) 0 % (0-3) Basophils (%) (Auto) 1 % (0-3) Neutrophils # (Auto) 9.2 x10^3uL (1.8-7.7) Lymphocytes # (Auto) 1.7 x10^3/uL (1.0-4.8) Monocytes # (Auto) 0.7 x10^3/uL (0.0-1.1) Eosinophils # (Auto) 0.0 x10^3/uL (0.0-0.7) Basophils # (Auto) 0.2 x10^3/uL (0.0-0.2) Prothrombin Time 13.1 SEC (11.7-14.0) Prothromb Time International Ratio 1.0 (0.8-1.1) Activated Partial Thromboplast Time 28 SEC (24-38) Sodium Level 143 mmol/L (136-145) Potassium Level 4.1 mmol/L (3.5-5.1) Chloride Level 103 mmol/L (98-107) Carbon Dioxide Level 26 mmol/L (21-32) Anion Gap 14 (6-14) Blood Urea Nitrogen 51 mg/dL (7-20) Creatinine 7.7 mg/dL (0.6-1.0) Estimated GFR (Cockcroft-Gault) 6.6 BUN/Creatinine Ratio 7 (6-20) Glucose Level 122 mg/dL (70-99) Calcium Level 8.8 mg/dL (8.5-10.1) Magnesium Level 2.2 mg/dL (1.8-2.4) Total Bilirubin 0.4 mg/dL (0.2-1.0) Aspartate Amino Transf (AST/SGOT) 30 U/L (15-37) Alanine Aminotransferase (ALT/SGPT) 34 U/L (14-59) Alkaline Phosphatase 82 U/L (46-116) Creatine Kinase 160 U/L (26-192) Creatine Kinase MB (Mass) 3.1 ng/mL (0.0-3.6) Creatine Kinase MB Relative Index 1.9 % (0-4) Troponin I Quantitative 0.081 ng/mL (0.000-0.055) Total Protein 6.7 g/dL (6.4-8.2) Albumin 3.1 g/dL (3.4-5.0) Albumin/Globulin Ratio 0.9 (1.0-1.7) Lipase 343 U/L (73-393) Glucose (Fingerstick) 95 mg/dL (70-99) Assessment/Plan Assessment/Plan IMP CHEST PAIN ESRD ANEMIA HTN NON COMPLIANCE PLAN CHEST PAIN EVAL ANMOL ENC COMPLIANCE HD TODAY UF TO DW BENY PAINTER MD August 24, 2018 11:34
--- NOTE | 2018-08-24 12:39 | NUR ---
SS following for discharge planning. SS reviewed pt chart. Pt is from home and is currently on room air. Pt has dialysis chair time scheduled in the community. No discharge needs noted at this time. SS will continue to follow for discharge planning.
[2018-08-24 15:00] VITALS: BP 154/66
[2018-08-24] MEDS: ALPRAZolam 0.5 MG TABLET PO PRN ×2 (15:29→22:34)
[2018-08-24 19:10] VITALS: BP 135/50
--- NOTE | 2018-08-24 19:35 | NUR ---
Dialysis called to have patient taken to Dialysis. Patient at first refused to go, stating she was in pain. RN gave IV Fentanyl as ordered. Patient refused to be touched by RN for assessment. Patient refused her Lipitor, eye drops, as well as Aranesp. Patient stated "You can't make me take anything." RN asked patient if she was willing to go to Dialysis. Patient started yelling and cussing stated Dialysis needs to be done earlier. RN asked the patient to go as ordered. Patient agreed to go now but stated she won't stay for whole treatment. RN delivered patient to Dialysis at 1950.
[2018-08-24] MEDS: LATANOPROST 0.005% OPHTH SOLUTION 2.5ML BOTTLE. OU SCH (19:38)
[2018-08-24] MEDS: ATORVASTATIN CALCIUM 40 MG TABLET. PO SCH ×2 (19:38→19:52)
[2018-08-24] MEDS ORDERED: IV NORMAL SALINE 1000ML BAG 1,000 ML IV PRN ×2 (20:26)
[2018-08-24] MEDS ORDERED: DIALYSIS PATIENT. MC PRN (20:30)
[2018-08-24] MEDS ORDERED: diphenhydrAMINE 50 MG/ML VIAL IV PRN ×2 (20:30)
[2018-08-24] MEDS ORDERED: DARBEPOETIN ALFA 60 MCG/0.3 ML DISP.SYRIN. SQ SCH (21:00)
[2018-08-24 23:31] VITALS: BP 132/43
[2018-08-25] VITALS (8 sets, daily range): BP systolic 112–208; BP diastolic 43–78
[2018-08-25] MEDS: fentaNYL PF VIAL 100 MCG/2 ML VIAL IV PRN ×3 (00:34→09:43)
[2018-08-25 06:00] LABS: CHOLESTEROL/HDL RATIO 2.5
[2018-08-25] MEDS: INSULIN LISPRO 300 UNITS/3 ML INSULN.PEN. SQ SCH ×3 (07:56→17:00)
[2018-08-25] MEDS: SERTRALINE 50 MG TABLET. PO SCH (07:57)
[2018-08-25] MEDS: amLODIPine BESYLATE 10 MG TABLET PO SCH (07:58)
[2018-08-25] MEDS: LEVOTHYROXINE 50 MCG TABLET PO SCH (07:58)
[2018-08-25] MEDS: PANTOPRAZOLE 40 MG TABLET.DR. PO SCH (07:58)
[2018-08-25] MEDS: ALPRAZolam 0.5 MG TABLET PO PRN ×2 (07:58→19:49)
[2018-08-25] MEDS: CARVEDILOL 6.25 MG TABLET. PO SCH ×2 (07:59→18:47)
[2018-08-25] MEDS: HYDROcodone/APAP 5/325MG 1 TAB TABLET PO PRN ×4 (11:50→23:41)
--- NOTE | 2018-08-25 11:54 | PDOC ---
PROGRESS NOTES Chief Complaint Chief Complaint A/P: HTN urgency - coreg and amlodipine ESRD - need dialysis regularly outpatient. Consulted nephrology Anemia - of chronic renal disease, will f/u outpatient CBC at dialysis, asymptomatic HTN - Monitor Chest pain with Troponin elevation - likely 2/2 demand, chronic. cards consulted. Most probably MSK in origin. Recent stress test without any evidence of ischemia or infarct. initial 0.08, lower than prior. multifactorial, demand mediated type 2 in the setting of ESRD Anasarca - f/u on possible esophageal mass biopsy Nausea vomiting and abdominal pain - cont nausea meds Hypothyroidism - on replacement therapy RLQ pain, loose bowels - will monitor stool, bowel regimen while on opioids Right hip pain - will have PT to evaluate Left foot and left 5th toe pain - negative X-ray toes, looks vascular or like calciphylaxis, however not visible on XR Vaginal discharge - Fisher Diving to see, please Sores - will check RPR, syphilis. Check phos, with her compliance difficulties with dialysis is high risk for calciphylaxis FEN - Renal diet PPX - heparin FULL CODE Admitted to [facility] for chest pain, nausea, vomiting History of Present Illness History of Present Illness Ms. Salazar, is a 57 year old F w/ PMHx ESRD on HD M/W/F presents via EMS with reports of acute on chronic chest and back pain. Patient seen in ED for similar on Mon08/22/18. Troponin elevated but less than prior. CXR stable (was recently treated for pneumonia). EKG shows sinus tachycardia at 103bpm, NO ST elevation, occasional PVC noted, T wave inversion I and aVL and V5-V6. This morning has multiple complaints. She notes nausea and states her chronic pain is now stable. Abdominal pain resolved. Still c/o left toe pain, XR reviewed negative. She notes multiple sores on her body and groin lymphadenopathy and vaginal discharge. She states she has not been sexually active in over a year and has not had a vaginal examination in over 5 years. Vitals Vitals Vital Signs Date Time Temp Pulse Resp B/P (MAP) Pulse Ox O2 Delivery O2 Flow Rate FiO2 08/25/18 10:54 97.5 81 20 208/70 (116) 86 Room Air 97.5 Physical Exam General: Alert, Oriented X3, Cooperative Heart: Regular rate Lungs: Clear, Other Abdomen: Normal bowel sounds, Soft Extremities: No clubbing, No cyanosis Skin: No breakdown Labs LABS Laboratory Tests Test 08/24/18 16:55 08/25/18 04:15 08/25/18 07:41 08/25/18 11:21 Glucose (Fingerstick) 137 mg/dL (70-99) 133 mg/dL (70-99) 146 mg/dL (70-99) Triglycerides Level 98 mg/dL (0-150) Cholesterol Level 142 mg/dL (0-200) LDL Cholesterol, Calculated 65 mg/dL (0-100) VLDL Cholesterol, Calculated 20 mg/dL (0-40) Non-HDL Cholesterol Calculated 85 mg/dL (0-129) HDL Cholesterol 57 mg/dL (40-60) Cholesterol/HDL Ratio 2.5 Assessment and Plan Assessmemt and Plan Problems Medical Problems: (1) Back pain Status: Acute Comment Review of Relevant I have reviewed the following items pamela (where applicable) has been applied. Labs Laboratory Tests Test 08/24/18 04:55 08/24/18 07:49 08/24/18 11:46 08/24/18 16:55 White Blood Count 11.8 x10^3/uL (4.0-11.0) Red Blood Count 3.21 x10^6/uL (3.50-5.40) Hemoglobin 9.8 g/dL (12.0-15.5) Hematocrit 29.3 % (36.0-47.0) Mean Corpuscular Volume 91 fL (79-100) Mean Corpuscular Hemoglobin 31 pg (25-35) Mean Corpuscular Hemoglobin Concent 34 g/dL (31-37) Red Cell Distribution Width 18.0 % (11.5-14.5) Platelet Count 320 x10^3/uL (140-400) Neutrophils (%) (Auto) 78 % (31-73) Lymphocytes (%) (Auto) 15 % (24-48) Monocytes (%) (Auto) 6 % (0-9) Eosinophils (%) (Auto) 0 % (0-3) Basophils (%) (Auto) 1 % (0-3) Neutrophils # (Auto) 9.2 x10^3uL (1.8-7.7) Lymphocytes # (Auto) 1.7 x10^3/uL (1.0-4.8) Monocytes # (Auto) 0.7 x10^3/uL (0.0-1.1) Eosinophils # (Auto) 0.0 x10^3/uL (0.0-0.7) Basophils # (Auto) 0.2 x10^3/uL (0.0-0.2) Prothrombin Time 13.1 SEC (11.7-14.0) Prothromb Time International Ratio 1.0 (0.8-1.1) Activated Partial Thromboplast Time 28 SEC (24-38) Sodium Level 143 mmol/L (136-145) Potassium Level 4.1 mmol/L (3.5-5.1) Chloride Level 103 mmol/L (98-107) Carbon Dioxide Level 26 mmol/L (21-32) Anion Gap 14 (6-14) Blood Urea Nitrogen 51 mg/dL (7-20) Creatinine 7.7 mg/dL (0.6-1.0) Estimated GFR (Cockcroft-Gault) 6.6 BUN/Creatinine Ratio 7 (6-20) Glucose Level 122 mg/dL (70-99) Calcium Level 8.8 mg/dL (8.5-10.1) Magnesium Level 2.2 mg/dL (1.8-2.4) Total Bilirubin 0.4 mg/dL (0.2-1.0) Aspartate Amino Transf (AST/SGOT) 30 U/L (15-37) Alanine Aminotransferase (ALT/SGPT) 34 U/L (14-59) Alkaline Phosphatase 82 U/L (46-116) Creatine Kinase 160 U/L (26-192) Creatine Kinase MB (Mass) 3.1 ng/mL (0.0-3.6) Creatine Kinase MB Relative Index 1.9 % (0-4) Troponin I Quantitative 0.081 ng/mL (0.000-0.055) Total Protein 6.7 g/dL (6.4-8.2) Albumin 3.1 g/dL (3.4-5.0) Albumin/Globulin Ratio 0.9 (1.0-1.7) Lipase 343 U/L (73-393) Glucose (Fingerstick) 95 mg/dL (70-99) 85 mg/dL (70-99) 137 mg/dL (70-99) Test 08/25/18 04:15 08/25/18 07:41 08/25/18 11:21 Triglycerides Level 98 mg/dL (0-150) Cholesterol Level 142 mg/dL (0-200) LDL Cholesterol, Calculated 65 mg/dL (0-100) VLDL Cholesterol, Calculated 20 mg/dL (0-40) Non-HDL Cholesterol Calculated 85 mg/dL (0-129) HDL Cholesterol 57 mg/dL (40-60) Cholesterol/HDL Ratio 2.5 Glucose (Fingerstick) 133 mg/dL (70-99) 146 mg/dL (70-99) Laboratory Tests Test 08/24/18 16:55 08/25/18 04:15 08/25/18 07:41 08/25/18 11:21 Glucose (Fingerstick) 137 mg/dL (70-99) 133 mg/dL (70-99) 146 mg/dL (70-99) Triglycerides Level 98 mg/dL (0-150) Cholesterol Level 142 mg/dL (0-200) LDL Cholesterol, Calculated 65 mg/dL (0-100) VLDL Cholesterol, Calculated 20 mg/dL (0-40) Non-HDL Cholesterol Calculated 85 mg/dL (0-129) HDL Cholesterol 57 mg/dL (40-60) Cholesterol/HDL Ratio 2.5 Medications Current Medications Aspirin (Molly Aspirin) 325 mg 1X ONCE PO Last administered on 08/24/18at 05:30; Start 08/24/18 at 05:30; Stop 08/24/18 at 05:31; Status DC Fentanyl Citrate (Fentanyl 2ml Vial) 50 mcg 1X ONCE IV Last administered on 08/24/18at 05:32; Start 08/24/18 at 05:30; Stop 08/24/18 at 05:31; Status DC Ondansetron HCl (Zofran) 4 mg PRN Q8HRS PRN IV NAUSEA/VOMITING; Start 08/24/18 at 06:15; Stop 08/25/18 at 06:14; Status DC Fentanyl Citrate (Fentanyl 2ml Vial) 50 mcg PRN Q2HRS PRN IV PAIN Last administered on 08/25/18at 09:43; Start 08/24/18 at 06:15 Insulin Human Lispro (HumaLOG) 0-5 UNITS TIDWMEALS SQ ; Start 08/24/18 at 08:00 Dextrose (Dextrose 50%-Water Syringe) 12.5 gm PRN Q15MIN PRN IV SEE COMMENTS; Start 08/24/18 at 06:15 Lorazepam (Ativan) 0.5 mg 1X ONCE PO Last administered on 08/24/18at 09:28; Start 08/24/18 at 06:15; Stop 08/24/18 at 06:16; Status DC Heparin Sodium (Porcine) (Hep Lock Adult) 500 unit 1X ONCE IV Last administered on 08/24/18at 09:40; Start 08/24/18 at 06:15; Stop 08/24/18 at 06:16; Status DC Fentanyl Citrate (Fentanyl 2ml Vial) 25 mcg 1X ONCE IV Last administered on 08/24/18at 07:14; Start 08/24/18 at 06:45; Stop 08/24/18 at 06:46; Status DC Albuterol Sulfate (Ventolin Neb Soln) 2.5 mg PRN BID PRN INH SHORTNESS OF BREATH; Start 08/24/18 at 09:00 Alprazolam (Xanax) 0.5 mg PRN TID PRN PO ANXIETY / AGITATION Last administered on 08/25/18at 07:58; Start 08/24/18 at 09:00 Amlodipine Besylate (Norvasc) 10 mg DAILY PO Last administered on 08/25/18 07:5 8; Start 08/24/18 at 09:00 Atorvastatin Calcium (Lipitor) 40 mg HS PO ; Start 08/24/18 at 21:00 Carvedilol (Coreg) 6.25 mg BIDWMEALS PO Last administered on 08/25/18at 07:59; Start 08/24/18 at 09:00 Clonidine HCl (Catapres Tts-2) 1 patch WEEKLY TD Last administered on 08/24/18at 09:29; Start 08/24/18 at 09:00 Acetaminophen/ Hydrocodone Bitart (Lortab 5/325) 1 tab PRN Q4HRS PRN PO MILD PAIN 1-3; Start 08/24/18 at 09:00 Sertraline HCl (Zoloft) 50 mg DAILY PO Last administered on 08/25/18at 07:57; Start 08/24/18 at 09:00 Latanoprost (Xalatan) 1 drop QHS OU Last administered on 08/24/18at 19:38; Start 08/24/18 at 21:00 Levothyroxine Sodium (Synthroid) 50 mcg DAILY06 PO Last administered on 08/25/18at 07:58; Start 08/24/18 at 09:00 Amylase/Lipase/ Protease (Zenpep 5,000) 1 cap TIDWMEALS PO Last administered on 08/25/18at 07:57; Start 08/24/18 at 09:00 Pantoprazole Sodium (Protonix) 40 mg DAILYAC PO Last administered on 08/25/18at 07:58; Start 08/24/18 at 09:00 Hydralazine HCl (Apresoline Inj) 10 mg PRN Q4HRS PRN IVP ELEVATED BP, SEE COMMENTS; Start 08/24/18 at 11:00 Darbepoetin Jarrett (Aranesp) 60 mcg WEEKLYHS SQ ; Start 08/24/18 at 21:00 Sodium Chloride 1,000 ml @ 1,000 mls/hr Q1H PRN IV hypotension; Start 08/24/18 at 20:26; Stop 08/25/18 at 02:25; Status DC Diphenhydramine HCl (Benadryl) 25 mg 1X PRN PRN IV ITCHING; Start 08/24/18 at 20:30; Stop 08/25/18 at 20:29 Diphenhydramine HCl (Benadryl) 25 mg 1X PRN PRN IV ITCHING; Start 08/24/18 at 20:30; Stop 08/25/18 at 20:29 Sodium Chloride 1,000 ml @ 400 mls/hr Q2H30M PRN IV PATENCY; Start 08/24/18 at 20:26; Stop 08/25/18 at 08:25; Status DC Info (PHARMACY MONITORING -- do not chart) 1 each PRN DAILY PRN MC SEE COMMENTS; Start 08/24/18 at 20:30 Active Scripts Active Hydrocodone-Apap 5-325 (Hydrocodone Bit/Acetaminophen) 1 Tab Tablet 1 Tab PO PRN Q4HRS PRN 6 Days Alprazolam 0.5 Mg Tablet 0.5 Mg PO PRN TID PRN MDD 1 [Pantoprazole] 40 MG Tablet.dr 40 Mg PO DAILYAC 30 Days Reported Zoloft (Sertraline Hcl) 50 Mg Tablet 50 Mg PO DAILY Lisinopril 20 Mg Tablet 20 Mg PO DAILY Coreg (Carvedilol) 6.25 Mg Tablet 6.25 Mg PO [address]IDWMELORENA Frey Dr 6,000 Units Capsule (Lipase/Protease/Amylase) 1 Each Capsule. 1 Tab PO TID Proair Hfa (Albuterol Sulfate) 8.5 Gm Hfa.aer.ad 2 Puff INH BID PRN Levothyroxine Sodium 50 Mcg Tablet 1 Tab PO DAILY Clonidine Tts-2 (Clonidine) 1 Each Patch.tdwk 1 Patch TD WEEKLY Amlodipine Besylate 5 Mg Tablet 10 Mg PO DAILY Atorvastatin Calcium 40 Mg Tablet 40 Mg PO HS Latanoprost 2.5 Ml Drops 1 Drop EACHEYE HS Vitals/I & O Vital Sign - Last 24 Hours 08/24/18 08/24/18 08/24/18 08/24/18 13:18 15:00 15:22 17:37 Temp 97.2 97.2 Pulse 85 Resp 16 16 16 17 B/P (MAP) 154/66 (95) Pulse Ox 93 96 93 93 O2 Delivery Room Air Room Air Room Air Room Air 08/24/18 08/24/18 08/24/18 08/24/18 17:42 19:10 19:38 22:34 Temp 97.7 97.7 Pulse 85 80 Resp 17 18 18 B/P (MAP) 154/66 135/50 (78) Pulse Ox 97 93 93 O2 Delivery Room Air Room Air Room Air 08/24/18 08/24/18 08/25/18 08/25/18 23:04 23:31 00:34 01:04 Temp 97.6 97.6 Pulse 79 Resp 18 18 18 B/P (MAP) 132/43 (72) Pulse Ox 95 95 95 O2 Delivery Room Air Room Air Room Air 08/25/18 08/25/18 08/25/18 08/25/18 03:34 07:00 07:29 07:58 Temp 97.4 96.3 97.4 96.3 Pulse 75 87 87 Resp 18 20 B/P (MAP) 152/52 (85) 167/78 (107) 167/78 Pulse Ox 96 O2 Delivery Room Air Room Air Room Air 08/25/18 08/25/18 08/25/18 08/25/18 07:59 08:00 09:43 10:38 Pulse 87 B/P (MAP) 167/78 O2 Delivery Room Air Room Air Room Air 08/25/18 10:54 Temp 97.5 97.5 Pulse 81 Resp 20 B/P (MAP) 208/70 (116) Pulse Ox 86 O2 Delivery Room Air Intake and Output 08/24/18 08/24/18 08/25/18 14:59 22:59 06:59 Intake Total 480 ml 480 ml 360 ml Balance 480 ml 480 ml 360 ml Nutrition Consultation Dietary Evaluation: Recommendations by RD: Protein supplementation Comments: REC renal/ADA diet per pmhx REC Nepro BID Expected Outcomes/Goals: PO intake to meet >75% est needs Interpretation of weight loss: >7.5% in 3 months Malnutrition Findings: Food and Nutrition Intake (Mod: <75% est energy req 7days Weight Status: Appropriate FELI SHAH MD Aug 25, 2018 11:54
--- NOTE | 2018-08-25 12:00 | NUR ---
Pt. sat of edge of bed for lunch. This nurse and APPRENTICE STYLIST made sure bed alarm was on at this time. Pt. tried to turn off bed alarm on her own 3 different time. Education about fall prevention and pt. safety was provided. Pt. stated she did not want the bed alarm and that she would keep turning it off herself. This nurse left bed alarm off at this time and frequently checked on pt.
[2018-08-25 13:23] LABS: ALBUMIN 2.8 g/dL (3.4-5.0); CALCIUM 8.4 mg/dL (8.5-10.1); CREATININE 5.3 mg/dL (0.6-1.0); GFR 10.1; PHOSPHORUS 4.1 mg/dL (2.6-4.7); POTASSIUM 4.1 mmol/L (3.5-5.1)
--- NOTE | 2018-08-25 13:25 | NUR ---
This nurse helped pt. back to bed from bathroom. Pt. had unsteady gait and was feeling weak. This nurse educated pt. on fall prevention and pt. safety again. \ Pt. was agreeable to place bed alarm back on and stated she would use the call light before getting out of bed. Will continue to monitor.
--- NOTE | 2018-08-25 13:50 | NUR ---
Pt. used call-light when getting up to use the restroom but immediately got out of bed before this nurse could get there. Pt. bed alarm working, pt. has on no-slip socks, yellow fall star placed on pt. door. This nurse educated pt. again about fall prevention and pt. safety. Pt. acknowledged that she would use call-light and wait for nurse to get there before getting out of bed next time. Will continue to monitor.
--- NOTE | 2018-08-25 14:56 | NUR ---
Pt. refused to let TANK ERECTOR or this nurse place pulse ox on finger long enough to get a reading. TANK ERECTOR asked pt. for a finger to get a reading and pt. flipped TANK ERECTOR off. Pt. asked this nurse for pain medication. This nurse informed pt. that it was not time for pain medication and that we would need a full set of vital signs before administering any medications. Pt. pulled blankets over her head and did not respond to this statement. This nurse will try again later.
[2018-08-25] MEDS: ATORVASTATIN CALCIUM 40 MG TABLET. PO SCH (19:50)
[2018-08-25] MEDS: LATANOPROST 0.005% OPHTH SOLUTION 2.5ML BOTTLE. OU SCH (19:52)
[2018-08-26 02:49] VITALS: BP 159/67
[2018-08-26] MEDS: HYDROcodone/APAP 5/325MG 1 TAB TABLET PO PRN ×2 (04:34→12:29)
[2018-08-26] MEDS: LEVOTHYROXINE 50 MCG TABLET PO SCH (04:34)
--- NOTE | 2018-08-26 07:58 | PDOC ---
PROGRESS NOTES Chief Complaint Chief Complaint A/P: HTN urgency - coreg and amlodipine ESRD - need dialysis regularly outpatient. Consulted nephrology Anemia - of chronic renal disease, will f/u outpatient CBC at dialysis, asymptomatic HTN - Monitor Chest pain with Troponin elevation - likely 2/2 demand, chronic. cards consulted. Most probably MSK in origin. Recent stress test without any evidence of ischemia or infarct. initial 0.08, lower than prior. 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 Check phos, with her compliance difficulties with dialysis is high risk for calciphylaxis FEN - Renal diet PPX - heparin FULL CODE Admitted to [facility] for chest pain, nausea, vomiting History of Present Illness History of Present Illness Ms. Salazar, is a 57 year old F w/ PMHx ESRD on HD M/W/F presents via EMS with reports of acute on chronic chest and back pain. Patient seen in ED for similar on Mon08/22/18. Troponin elevated but less than prior. CXR stable (was recently treated for pneumonia). EKG shows sinus tachycardia at 103bpm, NO ST elevation, occasional PVC noted, T wave inversion I and aVL and V5-V6. 08/25: This morning has multiple complaints. She notes nausea and states her chronic pain is now stable. Abdominal pain resolved. Still c/o left toe pain, XR reviewed negative. She notes multiple sores on her body and groin lymphadenopathy and vaginal discharge. She states she has not been sexually active in over a year and has not had a vaginal examination in over 5 years. Today she is spitting up, did not eat breakfast due to nausea, this improved with zofran and compazine. Today she states she no longer wants a vaginal examination, now requesting a breast examination. I have instructed her to have mammogram outpatient. She is asking if she can have food other than renal diet if she is going home today Vitals Vitals Vital Signs Date Time Temp Pulse Resp B/P (MAP) Pulse Ox O2 Delivery O2 Flow Rate FiO2 08/26/18 05:34 18 97 Room Air 2.0 08/26/18 02:49 76 159/67 (97) 08/25/18 22:50 98.1 98.1 Physical Exam General: Alert, Oriented X3, Cooperative Heart: Regular rate Lungs: Clear, Other Abdomen: Normal bowel sounds, Soft Extremities: No clubbing, No cyanosis Skin: No breakdown Labs LABS Laboratory Tests Test 08/25/18 11:21 08/25/18 12:52 08/25/18 17:02 Glucose (Fingerstick) 146 mg/dL (70-99) 133 mg/dL (70-99) Sodium Level 139 mmol/L (136-145) Potassium Level 4.1 mmol/L (3.5-5.1) Chloride Level 102 mmol/L (98-107) Carbon Dioxide Level 27 mmol/L (21-32) Anion Gap 10 (6-14) Blood Urea Nitrogen 33 mg/dL (7-20) Creatinine 5.3 mg/dL (0.6-1.0) Estimated GFR (Cockcroft-Gault) 10.1 Glucose Level 143 mg/dL (70-99) Calcium Level 8.4 mg/dL (8.5-10.1) Phosphorus Level 4.1 mg/dL (2.6-4.7) Albumin 2.8 g/dL (3.4-5.0) Treponema pallidum Antibody Nonreactive (Nonreactive) Assessment and Plan Assessmemt and Plan Problems Medical Problems: (1) Back pain Status: Acute Comment Review of Relevant I have reviewed the following items pamela (where applicable) has been applied. Labs Laboratory Tests Test 08/24/18 11:46 08/24/18 16:55 08/25/18 04:15 08/25/18 07:41 Glucose (Fingerstick) 85 mg/dL (70-99) 137 mg/dL (70-99) 133 mg/dL (70-99) Triglycerides Level 98 mg/dL (0-150) Cholesterol Level 142 mg/dL (0-200) LDL Cholesterol, Calculated 65 mg/dL (0-100) VLDL Cholesterol, Calculated 20 mg/dL (0-40) Non-HDL Cholesterol Calculated 85 mg/dL (0-129) HDL Cholesterol 57 mg/dL (40-60) Cholesterol/HDL Ratio 2.5 Test 08/25/18 11:21 08/25/18 12:52 08/25/18 17:02 Glucose (Fingerstick) 146 mg/dL (70-99) 133 mg/dL (70-99) Sodium Level 139 mmol/L (136-145) Potassium Level 4.1 mmol/L (3.5-5.1) Chloride Level 102 mmol/L (98-107) Carbon Dioxide Level 27 mmol/L (21-32) Anion Gap 10 (6-14) Blood Urea Nitrogen 33 mg/dL (7-20) Creatinine 5.3 mg/dL (0.6-1.0) Estimated GFR (Cockcroft-Gault) 10.1 Glucose Level 143 mg/dL (70-99) Calcium Level 8.4 mg/dL (8.5-10.1) Phosphorus Level 4.1 mg/dL (2.6-4.7) Albumin 2.8 g/dL (3.4-5.0) Treponema pallidum Antibody Nonreactive (Nonreactive) Laboratory Tests Test 08/25/18 11:21 08/25/18 12:52 08/25/18 17:02 Glucose (Fingerstick) 146 mg/dL (70-99) 133 mg/dL (70-99) Sodium Level 139 mmol/L (136-145) Potassium Level 4.1 mmol/L (3.5-5.1) Chloride Level 102 mmol/L (98-107) Carbon Dioxide Level 27 mmol/L (21-32) Anion Gap 10 (6-14) Blood Urea Nitrogen 33 mg/dL (7-20) Creatinine 5.3 mg/dL (0.6-1.0) Estimated GFR (Cockcroft-Gault) 10.1 Glucose Level 143 mg/dL (70-99) Calcium Level 8.4 mg/dL (8.5-10.1) Phosphorus Level 4.1 mg/dL (2.6-4.7) Albumin 2.8 g/dL (3.4-5.0) Treponema pallidum Antibody Nonreactive (Nonreactive) Medications Current Medications Aspirin (Molly Aspirin) 325 mg 1X ONCE PO Last administered on 08/24/18at 05:30; Start 08/24/18 at 05:30; Stop 08/24/18 at 05:31; Status DC Fentanyl Citrate (Fentanyl 2ml Vial) 50 mcg 1X ONCE IV Last administered on 08/24/18at 05:32; Start 08/24/18 at 05:30; Stop 08/24/18 at 05:31; Status DC Ondansetron HCl (Zofran) 4 mg PRN Q8HRS PRN IV NAUSEA/VOMITING; Start 08/24/18 at 06:15; Stop 08/25/18 at 06:14; Status DC Fentanyl Citrate (Fentanyl 2ml Vial) 50 mcg PRN Q2HRS PRN IV PAIN Last administered on 08/25/18at 09:43; Start 08/24/18 at 06:15 Insulin Human Lispro (HumaLOG) 0-5 UNITS TIDWMEALS SQ ; Start 08/24/18 at 08:00 Dextrose (Dextrose 50%-Water Syringe) 12.5 gm PRN Q15MIN PRN IV SEE COMMENTS; Start 08/24/18 at 06:15 Lorazepam (Ativan) 0.5 mg 1X ONCE PO Last administered on 08/24/18at 09:28; Start 08/24/18 at 06:15; Stop 08/24/18 at 06:16; Status DC Heparin Sodium (Porcine) (Hep Lock Adult) 500 unit 1X ONCE IV Last administered on 08/24/18at 09:40; Start 08/24/18 at 06:15; Stop 08/24/18 at 06:16; Status DC Fentanyl Citrate (Fentanyl 2ml Vial) 25 mcg 1X ONCE IV Last administered on 08/24/18at 07:14; Start 08/24/18 at 06:45; Stop 08/24/18 at 06:46; Status DC Albuterol Sulfate (Ventolin Neb Soln) 2.5 mg PRN BID PRN INH SHORTNESS OF BREATH; Start 08/24/18 at 09:00 Alprazolam (Xanax) 0.5 mg PRN TID PRN PO ANXIETY / AGITATION Last administered on 08/25/18at 19:49; Start 08/24/18 at 09:00 Amlodipine Besylate (Norvasc) 10 mg DAILY PO Last administered on 08/25/18at 07:58; Start 08/24/18 at 09:00 Atorvastatin Calcium (Lipitor) 40 mg HS PO Last administered on 08/25/18 19:50; Start 08/24/18 at 21:00 Carvedilol (Coreg) 6.25 mg BIDWMEALS PO Last administered on 08/25/18 18:47; Start 08/24/18 at 09:00 Clonidine HCl (Catapres Tts-2) 1 patch WEEKLY TD Last administered on 08/24/18 09:29; Start 08/24/18 at 09:00 Acetaminophen/ Hydrocodone Bitart (Lortab 5/325) 1 tab PRN Q4HRS PRN PO MILD PAIN 1-3 Last administered on 08/26/18 04:34; Start 08/24/18 at 09:00 Sertraline HCl (Zoloft) 50 mg DAILY PO Last administered on 08/25/18 07:57; Start 08/24/18 at 09:00 Latanoprost (Xalatan) 1 drop QHS OU Last administered on 08/24/18 19:38; Start 08/24/18 at 21:00 Levothyroxine Sodium (Synthroid) 50 mcg DAILY06 PO Last administered on 08/26/18 04:34; Start 08/24/18 at 09:00 Amylase/Lipase/ Protease (Zenpep 5,000) 1 cap TIDWMEALS PO Last administered on 08/25/18 18:47; Start 08/24/18 at 09:00 Pantoprazole Sodium (Protonix) 40 mg DAILYAC PO Last administered on 08/25/18 07:58; Start 08/24/18 at 09:00 Hydralazine HCl (Apresoline Inj) 10 mg PRN Q4HRS PRN IVP ELEVATED BP, SEE COMMENTS Last administered on 08/25/18 11:48; Start 08/24/18 at 11:00 Darbepoetin Jarrett (Aranesp) 60 mcg WEEKLYHS SQ ; Start 08/24/18 at 21:00 Sodium Chloride 1,000 ml @ 1,000 mls/hr Q1H PRN IV hypotension; Start 08/24/18 at 20:26; Stop 08/25/18 at 02:25; Status DC Diphenhydramine HCl (Benadryl) 25 mg 1X PRN PRN IV ITCHING; Start 08/24/18 at 20:30; Stop 08/25/18 at 20:29; Status DC Diphenhydramine HCl (Benadryl) 25 mg 1X PRN PRN IV ITCHING; Start 08/24/18 at 20:30; Stop 08/25/18 at 20:29; Status DC Sodium Chloride 1,000 ml @ 400 mls/hr Q2H30M PRN IV PATENCY; Start 08/24/18 at 20:26; Stop 08/25/18 at 08:25; Status DC Info (PHARMACY MONITORING -- do not chart) 1 each PRN DAILY PRN MC SEE COMMENTS; Start 08/24/18 at 20:30 Albuterol/ Ipratropium (Duoneb) 3 ml RTQID NEB ; Start 08/25/18 at 16:00 Active Scripts Active Hydrocodone-Apap 5-325 (Hydrocodone Bit/Acetaminophen) 1 Tab Tablet 1 Tab PO PRN Q4HRS PRN 6 Days Alprazolam 0.5 Mg Tablet 0.5 Mg PO PRN TID PRN MDD 1 [Pantoprazole] 40 MG Tablet. 40 Mg PO DAILYAC 30 Days Reported Zoloft (Sertraline Hcl) 50 Mg Tablet 50 Mg PO DAILY Lisinopril 20 Mg Tablet 20 Mg PO DAILY Coreg (Carvedilol) 6.25 Mg Tablet 6.25 Mg PO BIDWMEALS Shante Knowles 6,000 Units Capsule (Lipase/Protease/Amylase) 1 Each Capsule. 1 Tab PO TID Proair Hfa (Albuterol Sulfate) 8.5 Gm Hfa.aer.ad 2 Puff INH BID PRN Levothyroxine Sodium 50 Mcg Tablet 1 Tab PO DAILY Clonidine Tts-2 (Clonidine) 1 Each Patch.tdwk 1 Patch TD WEEKLY Amlodipine Besylate 5 Mg Tablet 10 Mg PO DAILY Atorvastatin Calcium 40 Mg Tablet 40 Mg PO HS Latanoprost 2.5 Ml Drops 1 Drop EACHEYE HS Vitals/I & O Vital Sign - Last 24 Hours 08/25/18 08/25/18 08/25/18 08/25/18 07:59 08:00 09:43 10:38 Pulse 87 B/P (MAP) 167/78 O2 Delivery Room Air Room Air Room Air 08/25/18 08/25/18 08/25/18 08/25/18 10:54 11:48 11:50 13:25 Temp 97.5 96.6 97.5 96.6 Pulse 81 81 80 Resp 20 22 B/P (MAP) 208/70 (116) 195/61 136/59 (84) Pulse Ox 86 O2 Delivery Room Air Room Air Room Air 08/25/18 08/25/18 08/25/18 08/25/18 15:06 15:50 18:31 18:47 Temp 98.1 98.1 98.1 98.1 Pulse 76 85 85 Resp 18 18 B/P (MAP) 112/47 (68) 136/59 (84) 136/59 Pulse Ox 91 O2 Delivery Room Air Nasal Cannula Room Air O2 Flow Rate 2.0 08/25/18 08/25/18 08/25/18 08/25/18 19:50 20:12 22:50 23:41 Temp 98.1 98.1 Pulse 84 Resp 18 17 18 B/P (MAP) 138/57 (84) Pulse Ox 91 97 97 O2 Delivery Room Air Room Air Room Air Room Air O2 Flow Rate 2.0 2.0 2.0 08/26/18 08/26/18 08/26/18 02:49 04:34 05:34 Pulse 76 Resp 18 18 B/P (MAP) 159/67 (97) Pulse Ox 97 97 O2 Delivery Room Air Room Air O2 Flow Rate 2.0 2.0 Intake and Output 08/25/18 08/25/18 08/26/18 14:59 22:59 06:59 Intake Total 420 ml 120 ml Output Total 200 ml Balance 420 ml -200 ml 120 ml Nutrition Consultation Dietary Evaluation: Recommendations by RD: Protein supplementation Comments: REC renal/ADA diet per pmhx REC Nepro BID Expected Outcomes/Goals: PO intake to meet >75% est needs Interpretation of weight loss: >7.5% in 3 months Malnutrition Findings: Food and Nutrition Intake (Mod: <75% est energy req 7days Weight Status: Appropriate FELI SHAH MD Aug 26, 2018 07:58
[2018-08-26] MEDS: IPRATRPIUM/ALBUTEROL 0.5/2.5MG 3 ML NEBU. NEB SCH ×2 (08:00→12:07)
[2018-08-26] MEDS: INSULIN LISPRO 300 UNITS/3 ML INSULN.PEN. SQ SCH ×2 (08:00→12:00)
[2018-08-26] MEDS ORDERED: ONDANSETRON PF 4 MG/2 ML VIAL. IV PRN (08:15)
[2018-08-26] MEDS ORDERED: PROCHLORPERAZINE 10 MG/2 ML VIAL. IV ONE (08:15)
--- NOTE | 2018-08-26 10:20 | NUR ---
DRESSING CHANGE COMPLETED TO LEFT UPPER CHEST DIALYSIS ACCESS DUE TO DRESSING HANGING OFF, STERILE TECHNIQUE UTILIZED, BIOPATCH APPLIED, PATIENT TOLERATED PROCEDURE WITHOUT COMPLAINTS.
[2018-08-26] MEDS ORDERED: PROC5TAB34 PO (11:58)
--- NOTE | 2018-08-26 12:10 | PDOC3 ---
Discharge Summary Visit Information Date of Admission: August 24, 2018 Date of Discharge: Aug 26, 2018 Admitting Diagnosis: Chest pain, nausea. HTN emergency Final Diagnosis Problems Medical Problems: (1) Back pain Status: Acute Brief Hospital Course Allergies Allergies Coded Allergies Type Severity Reaction Last Updated Verified morphine Allergy Intermediate Itching 03/27/18 Yes Vital Signs Vital Signs Date Time Temp Pulse Resp B/P (MAP) Pulse Ox O2 Delivery O2 Flow Rate FiO2 08/26/18 08:03 96 Room Air 08/26/18 05:34 18 2.0 08/26/18 02:49 76 159/67 (97) 08/25/18 22:50 98.1 98.1 Lab Results Laboratory Tests Test 08/24/18 16:55 08/25/18 04:15 08/25/18 07:41 08/25/18 11:21 Glucose (Fingerstick) 137 mg/dL (70-99) 133 mg/dL (70-99) 146 mg/dL (70-99) Triglycerides Level 98 mg/dL (0-150) Cholesterol Level 142 mg/dL (0-200) LDL Cholesterol, Calculated 65 mg/dL (0-100) VLDL Cholesterol, Calculated 20 mg/dL (0-40) Non-HDL Cholesterol Calculated 85 mg/dL (0-129) HDL Cholesterol 57 mg/dL (40-60) Cholesterol/HDL Ratio 2.5 Test 08/25/18 12:52 08/25/18 17:02 08/26/18 09:09 08/26/18 11:51 Sodium Level 139 mmol/L (136-145) Potassium Level 4.1 mmol/L (3.5-5.1) Chloride Level 102 mmol/L (98-107) Carbon Dioxide Level 27 mmol/L (21-32) Anion Gap 10 (6-14) Blood Urea Nitrogen 33 mg/dL (7-20) Creatinine 5.3 mg/dL (0.6-1.0) Estimated GFR (Cockcroft-Gault) 10.1 Glucose Level 143 mg/dL (70-99) Calcium Level 8.4 mg/dL (8.5-10.1) Phosphorus Level 4.1 mg/dL (2.6-4.7) Albumin 2.8 g/dL (3.4-5.0) Treponema pallidum Antibody Nonreactive (Nonreactive) Glucose (Fingerstick) 133 mg/dL (70-99) 100 mg/dL (70-99) 84 mg/dL (70-99) Laboratory Tests Test 08/25/18 12:52 08/25/18 17:02 08/26/18 09:09 08/26/18 11:51 Sodium Level 139 mmol/L (136-145) Potassium Level 4.1 mmol/L (3.5-5.1) Chloride Level 102 mmol/L (98-107) Carbon Dioxide Level 27 mmol/L (21-32) Anion Gap 10 (6-14) Blood Urea Nitrogen 33 mg/dL (7-20) Creatinine 5.3 mg/dL (0.6-1.0) Estimated GFR (Cockcroft-Gault) 10.1 Glucose Level 143 mg/dL (70-99) Calcium Level 8.4 mg/dL (8.5-10.1) Phosphorus Level 4.1 mg/dL (2.6-4.7) Albumin 2.8 g/dL (3.4-5.0) Treponema pallidum Antibody Nonreactive (Nonreactive) Glucose (Fingerstick) 133 mg/dL (70-99) 100 mg/dL (70-99) 84 mg/dL (70-99) Brief Hospital Course Ms. Smith, is a 57 year old F w/ PMHx ESRD on HD M/W/F presents via EMS with reports of acute on chronic chest and back pain. Patient seen in ED for similar on Mon08/22/18. Troponin elevated but less than prior. CXR stable (was recently treated for pneumonia). EKG shows sinus tachycardia at 103bpm, NO ST elevation, occasional PVC noted, T wave inversion I and aVL and V5-V6. 08/25: This morning has multiple complaints. She notes nausea and states her chronic pain is now stable. Abdominal pain resolved. Still c/o left toe pain, XR reviewed negative. She notes multiple sores on her body and groin lymphadenopathy and vaginal discharge. She states she has not been sexually active in over a year and has not had a vaginal examination in over 5 years. Today she is spitting up, did not eat breakfast due to nausea, this improved with zofran and compazine. Today she states she no longer wants a vaginal examination, now requesting a breast examination. I have instructed her to have mammogram outpatient. She is asking if she can have food other than renal diet if she is going home today Her BP has been improved once back on her home medications. She is planning for dialysis outpatient tomorrow. A/P: HTN urgency - coreg and amlodipine ESRD - need dialysis regularly outpatient. Consulted nephrology Anemia - of chronic renal disease, will f/u outpatient CBC at dialysis, asymptomatic HTN - Monitor Chest pain with Troponin elevation - likely 2/2 demand, chronic. cards consulted. Most probably MSK in origin. Recent stress test without any evidence of ischemia or infarct. initial 0.08, lower than prior. multifactorial, demand mediated type 2 in the setting of ESRD Anasarca - f/u on possible esophageal mass biopsy Nausea vomiting and abdominal pain - cont nausea meds Hypothyroidism - on replacement therapy RLQ pain, loose bowels - will monitor stool, bowel regimen while on opioids Right hip pain - will have PT to evaluate Left foot and left 5th toe pain - negative X-ray toes, looks vascular or like calciphylaxis, however not visible on XR Vaginal discharge - Solution Lead to see, please Sores - will check RPR, syphilis. Check phos, with her compliance difficulties with dialysis is high risk for calciphylaxis Discharge Information Condition at Discharge: Improved Follow Up: Weeks (2) Disposition/Orders: D/C to Home Scheduled Amlodipine Besylate (Amlodipine Besylate) 5 Mg Tablet, 10 MG PO DAILY for blood pressure, (Reported) Entered as Reported by: JENNIE SMITH on 12/05/17809 Last Action: Continued on 08/24/18847 by FELI SHAH MD Atorvastatin Calcium (Atorvastatin Calcium) 40 Mg Tablet, 40 MG PO HS for cholesterol, (Reported) Entered as Reported by: JENNIE SMITH on 12/05/17809 Last Action: Continued on 08/24/18847 by FELI SHAH MD Carvedilol (Coreg ) 6.25 Mg Tablet, 6.25 MG PO BIDWMEALS for CARDIAC, (Reported) Entered as Reported by: VAL MONTANA on 05/08/18 1833 Last Action: Continued on 08/24/18847 by FELI SHAH MD Clonidine (Clonidine Tts-2) 1 Each Patch.tdwk, 1 PATCH TD WEEKLY for blood pressure, (Reported) Entered as Reported by: VIKI LAI on 03/22/181726 Last Action: Continued on 08/24/18847 by FELI SHAH MD Latanoprost (Latanoprost) 2.5 Ml Drops, 1 DROP EACHEYE HS, (Reported) Entered as Reported by: ATTILA HAMMOND on 09/24/17 1649 Last Action: Converted on 08/24/18847 by FELI SHAH MD Levothyroxine Sodium (Levothyroxine Sodium) 50 Mcg Tablet, 1 TAB PO DAILY for thyroid, #30 Ref 5 (Reported) Entered as Reported by: VIKI LAI on 03/22/181726 Last Action: Converted on 08/24/18847 by FELI SHAH MD Lipase/Protease/Amylase (Creon Dr 6,000 Units Capsule) 1 Each Capsule., 1 TAB PO TID for digestion, (Reported) Entered as Reported by: CAROL CHAN on 04/23/18 1236 Last Action: Converted on 08/24/18847 by FELI SHAH MD Lisinopril (Lisinopril) 20 Mg Tablet, 20 MG PO DAILY for FOR HYPERTENSION, Ref 0 (Reported) Entered as Reported by: LAUREN REAVES on 05/27/18748 Sertraline Hcl (Zoloft) 50 Mg Tablet, 50 MG PO DAILY for ANTI-DEPRESSANT, Ref 0 (Reported) Entered as Reported by: LAUREN REAVES on 05/27/18748 Last Action: Continued on 08/24/18847 by FELI SHAH MD [Pantoprazole] 40 MG TABLET.DR, 40 MG PO DAILYAC for GERD for 30 Days, #30 Ref 2 Prescribed by: FELI SHAH MD on 03/07/18 1359 Last Action: Converted on 08/24/18847 by FELI SHAH MD Scheduled PRN Albuterol Sulfate (Proair Hfa) 8.5 Gm Hfa.aer.ad, 2 PUFF INH BID PRN for SHORTNESS OF BREATH, (Reported) Entered as Reported by: VIKI LAI on 03/22/181726 Last Action: Continued on 08/24/18847 by FELI SHAH MD Alprazolam (Alprazolam) 0.5 Mg Tablet, 0.5 MG PO PRN TID PRN for ANXIETY / AGITATION MDD 1, #10 Prescribed by: PRABHAKAR MOSQUERA on 04/06/18 1220 Last Action: Continued on 08/24/18 0848 by FELI SHAH MD Hydrocodone Bit/Acetaminophen (Hydrocodone-Apap 5-325 ) 1 Tab Tablet, 1 TAB PO PRN Q4HRS PRN for MILD PAIN for 6 Days, #18 Prescribed by: FELI SHAH MD on 07/11/18 1316 Last Action: Continued on 08/24/18 0848 by FELI SHAH MD Prochlorperazine Maleate (Compazine) 5 Mg Tablet, 5 MG PO PRN TID PRN for NAUSEA for 10 Days, #30 Prescribed by: FELI SHAH MD on 08/26/18 1158 FELI SHAH MD Aug 26, 2018 12:10
[2018-08-26 12:24] VITALS: BP 172/79
[2018-08-26] MEDS: amLODIPine BESYLATE 10 MG TABLET PO SCH (12:27)
[2018-08-26] MEDS: PANTOPRAZOLE 40 MG TABLET.DR. PO SCH (12:27)
[2018-08-26 12:28] VITALS: BP 172/79
[2018-08-26] MEDS: CARVEDILOL 6.25 MG TABLET. PO SCH (12:28)
[2018-08-26] MEDS: SERTRALINE 50 MG TABLET. PO SCH (12:28)
--- NOTE | 2018-08-26 12:50 | NUR ---
DISCHARGE INSTRUCTIONS GIVEN, QUESTIONS AND CONCERNS ANSWERED, PATIENT VERBALIZED UNDERSTANDING OF DISCHARGE INFORMATION INCLUDING TAKING ALL MEDICATIONS INSTRUCTED AND FOLLOWING UP WITH HER PRIMARY PROVIDER IN 1-[address] W[address]KS. PATIENT SEEN BY DR[address] MAURICIO PRIOR TO DISCHARGE. SALINE LOCK REMOVED FROM LEFT EJ PER THIS COMPUTING ARCHITECT.
--- NOTE | 2018-08-26 13:10 | NUR ---
PATIENT LEAVES THE UNIT PER W/C ACCOMPANIED BY THIS MUSICAL STRING MAKER, EMOTIONAL SUPPORT GIVEN, FOLLOW UP APPOINTMENTS ENCOURAGED.
== END 2018-08-26 13:05 | disposition home or self-care (01) | DRG 291 ==
LOC: ER 04:51 → 2 NORTH 05:50
PROVIDERS: ADMIT Internal Medicine; ATTEND Internal Medicine
PROC: 5A1D70Z Performance of Urinary Filtration, Intermittent, Less than 6 Hours Per Day (ICD-10-PCS; principal; 2018-08-24)
DX: I13.2 Hypertensive heart and chronic kidney disease with heart failure and with stage 5 chronic kidney disease, or end stage renal disease (principal); I50.33 Acute on chronic diastolic (congestive) heart failure; N18.6 End stage renal disease; I16.1 Hypertensive emergency; I24.8 Other forms of acute ischemic heart disease; D64.9 Anemia, unspecified; E03.9 Hypothyroidism, unspecified; E11.22 Type 2 diabetes mellitus with diabetic chronic kidney disease; R07.89 Other chest pain; E78.5 Hyperlipidemia, unspecified; E83.59 Other disorders of calcium metabolism; F41.9 Anxiety disorder, unspecified; F17.210 Nicotine dependence, cigarettes, uncomplicated; G89.29 Other chronic pain; J44.9 Chronic obstructive pulmonary disease, unspecified; M79.7 Fibromyalgia; H40.9 Unspecified glaucoma; N89.8 Other specified noninflammatory disorders of vagina; Z90.710 Acquired absence of both cervix and uterus; Z91.19 Patient's noncompliance with other medical treatment and regimen; Z99.2 Dependence on renal dialysis; Z88.8 Allergy status to other drugs, medicaments and biological substances; Z79.899 Other long term (current) drug therapy; E11.42 Type 2 diabetes mellitus with diabetic polyneuropathy; Z87.01 Personal history of pneumonia (recurrent)
CPT/HCPCS: 36415; 71045; 73660; 80053; 80061; 80069; 82553; 82962; 83690; 83735; 83880; 84443; 84484; 85025; 85610; 85730; 86592; 87493; 93005; 94640; 94760; 96372; 96374; 96376; J0360; J0780; J1815; J3010; J7620; Q0162; 99285-25; 99291-25

== ENCOUNTER 2018-08-29 20:18 | Emergency (ER) | payer OTHER ==
[~2018-08-29] VITALS: Ht 157.5 cm; Wt 54.0 kg
[~2018-08-29 20:18] MED LIST changes: +PROC5TAB34 PO
--- NOTE | 2018-08-29 20:51 | PHYS DOC ---
Past Medical History Past Medical History: CHF, COPD, Renal Failure Additional Past Medical Histor: neuropathy, cataracts,CHRONIC PAIN,ESRD Past Surgical History: Hysterectomy, Other Additional Past Surgical Histo: PICC PLACEMENT Alcohol Use: None Drug Use: Benzodiazepine, Opiates Adult General Chief Complaint Chief Complaint: ABDOMINAL PAIN HPI HPI 58-year-old female well known to our emergency department with multiple medical problems including end-stage renal disease on dialysis presents with epigastric pain. She states every time that she has dialysis she develops epigastric and chest pain. She states today is no different. She does describe some nausea but no vomiting. She denies any melena or hematemesis. She denies any increased shortness of breath or dyspnea on exertion. She has not had any cough congestion fever chills or sweats.[] Review of Systems Review of Systems Constitutional: Denies fever or chills [] Eyes: Denies change in visual acuity, redness, or eye pain [] HENT: Denies nasal congestion or sore throat [] Respiratory: Denies cough or shortness of breath [] Cardiovascular: No additional information not addressed in HPI [] GI: Per history of present illness[] : Denies dysuria or hematuria [] Musculoskeletal: Denies back pain or joint pain [] Integument: Denies rash or skin lesions [] Neurologic: Denies headache, focal weakness or sensory changes [] Endocrine: Denies polyuria or polydipsia [] All other systems were reviewed and found to be within normal limits, except as documented in this note. Current Medications Current Medications Current Medications Medications (Trade) Dose Ordered Sig/Clarence Start Time Stop Time Status Last Admin Dose Admin Multi-Ingredient Mouthwash/Gargle (Gi Cocktail) 20 ml 1X ONCE 08/29/18 21:00 08/29/18 21:01 DC 08/29/18 21:00 20 ML Ondansetron HCl (Zofran) 4 mg 1X ONCE 08/29/18 21:00 08/29/18 21:01 DC 08/29/18 20:59 4 MG Allergies Allergies Allergies Coded Allergies Type Severity Reaction Last Updated Verified morphine Allergy Intermediate Itching 03/27/18 Yes Physical Exam Physical Exam Constitutional: Well developed, well nourished, mild distress, non-toxic appearance. [] HENT: Normocephalic, atraumatic, bilateral external ears normal, oropharynx moist, no oral exudates, nose normal. [] Eyes: PERRLA, EOMI, conjunctiva normal, no discharge. [] Neck: Normal range of motion, no tenderness, supple, no stridor. [] Cardiovascular:Heart rate regular rhythm, no murmur [] Lungs & Thorax: Bilateral breath sounds clear to auscultation [] Abdomen: Mild epigastric tenderness to palp. [] Skin: Warm, dry, no erythema, no rash. [] Back: No tenderness, no CVA tenderness. [] Extremities: No tenderness, no cyanosis, no clubbing, ROM intact, no edema. [] Neurologic: Alert and oriented X 3, normal motor function, normal sensory function, no focal deficits noted. [] Psychologic: Unusual affect, very anxious. [] Current Patient Data Vital Signs Vital Signs Date Time Temp Pulse Resp B/P (MAP) Pulse Ox O2 Delivery O2 Flow Rate FiO2 08/29/18 20:30 98.1 82 18 174/60 (98) 99 Room Air 98.1 Lab Values Laboratory Tests Test 08/29/18 21:05 White Blood Count 7.6 x10^3/uL (4.0-11.0) Red Blood Count 3.11 x10^6/uL (3.50-5.40) L Hemoglobin 9.7 g/dL (12.0-15.5) L Hematocrit 28.3 % (36.0-47.0) L Mean Corpuscular Volume 91 fL (79-100) Mean Corpuscular Hemoglobin 31 pg (25-35) Mean Corpuscular Hemoglobin Concent 34 g/dL (31-37) Red Cell Distribution Width 17.1 % (11.5-14.5) H Platelet Count 299 x10^3/uL (140-400) Neutrophils (%) (Auto) 58 % (31-73) Lymphocytes (%) (Auto) 29 % (24-48) Monocytes (%) (Auto) 11 % (0-9) H Eosinophils (%) (Auto) 1 % (0-3) Basophils (%) (Auto) 1 % (0-3) Neutrophils # (Auto) 4.4 x10^3uL (1.8-7.7) Lymphocytes # (Auto) 2.2 x10^3/uL (1.0-4.8) Monocytes # (Auto) 0.8 x10^3/uL (0.0-1.1) Eosinophils # (Auto) 0.1 x10^3/uL (0.0-0.7) Basophils # (Auto) 0.1 x10^3/uL (0.0-0.2) Sodium Level 141 mmol/L (136-145) Potassium Level 3.7 mmol/L (3.5-5.1) Chloride Level 102 mmol/L (98-107) Carbon Dioxide Level 23 mmol/L (21-32) Anion Gap 16 (6-14) H Blood Urea Nitrogen 18 mg/dL (7-20) Creatinine 3.4 mg/dL (0.6-1.0) H Estimated GFR (Cockcroft-Gault) 16.9 BUN/Creatinine Ratio 5 (6-20) L Glucose Level 87 mg/dL (70-99) Calcium Level 8.7 mg/dL (8.5-10.1) Total Bilirubin 0.4 mg/dL (0.2-1.0) Aspartate Amino Transferase (AST) 31 U/L (15-37) Alanine Aminotransferase (ALT) 38 U/L (14-59) Alkaline Phosphatase 93 U/L (46-116) Troponin I Quantitative 0.067 ng/mL (0.000-0.055) Total Protein 7.0 g/dL (6.4-8.2) Albumin 3.2 g/dL (3.4-5.0) L Albumin/Globulin Ratio 0.8 (1.0-1.7) L Lipase 193 U/L (73-393) Laboratory Tests 08/29/18 21:05 Laboratory Tests 08/29/18 21:05 EKG EKG [] Interpretation Time: EKG: Normal sinus rhythm left ventricular hypertrophy rate of 80 some lateral ischemic changes that are unchanged likely related to her LVH Radiology/Procedures Radiology/Procedures [] Course & Med Decision Making Course & Med Decision Making Pertinent Labs and Imaging studies reviewed. (See chart for details) [ED course: Evaluation reveals a 58-year-old female who does not appear particularly ill more anxious. She was given a GI cocktail and some Zofran and this seemed to help her symptoms. I explained to her that we were not going to provide her with any pain medication at this time. Encouraged her to follow up with her primary care physician or purification director as soon as possible.] Melisa Disclaimer Dragon Disclaimer This electronic medical record was generated, in whole or in part, using a voice recognition dictation system. Departure Departure Impression: Primary Impression: Abdominal pain Disposition: HOME, SELF-CARE Condition: IMPROVED Referrals: UNKNOWN PCP NAME (PCP) Patient Instructions: Abdominal Pain Additional Instructions: Return to the emergency department with any new or concerning symptoms Scripts Ranitidine Hcl (ZANTAC) 300 Mg Tablet 1 TAB PO QHS for reflux, #90 TAB 3 Refills Prov: DANIELA ALMAZAN DO 08/29/18 Problem Qualifiers Primary Impression: Abdominal pain Abdominal location: epigastric Qualified Codes: R10.13 - Epigastric pain DANIELA ALMAZAN DO Aug 29, 2018 20:51
[2018-08-29] MEDS ORDERED: ONDANSETRON PF 4 MG/2 ML VIAL. IV ONE (21:00)
[2018-08-29] MEDS ORDERED: LIDO:MAALOX 1:1 20 ML SINGLE DOSE. SWSW ONE (21:00)
[2018-08-29 21:12] LABS: BASO # 0.1 x10^3/uL (0.0-0.2); BASO % 1 % (0-3); EOS # 0.1 x10^3/uL (0.0-0.7); EOS % 1 % (0-3); HEMATOCRIT 28.3 % (36.0-47.0); HEMOGLOBIN 9.7 g/dL (12.0-15.5); LYMPH # 2.2 x10^3/uL (1.0-4.8); LYMPH % 29 % (24-48); MEAN CORPUSCULAR HEMOGLOBIN 31 pg (25-35); MEAN CORPUSCULAR HGB CONC 34 g/dL (31-37); MEAN CORPUSCULAR VOLUME 91 fL (79-100); MONO # 0.8 x10^3/uL (0.0-1.1); MONO % 11 % (0-9); NEUT # 4.4 x10^3uL (1.8-7.7); NEUT % 58 % (31-73); PLATELET COUNT 299 x10^3/uL (140-400); RED BLOOD COUNT 3.11 x10^6/uL (3.50-5.40); RED CELL DISTRIBUTION WIDTH 17.1 % (11.5-14.5); WHITE BLOOD COUNT 7.6 x10^3/uL (4.0-11.0)
[2018-08-29 21:26] LABS: CALCIUM 8.7 mg/dL (8.5-10.1); CREATININE 3.4 mg/dL (0.6-1.0); GFR 16.9; POTASSIUM 3.7 mmol/L (3.5-5.1)
[2018-08-29 21:32] LABS: ALBUMIN 3.2 g/dL (3.4-5.0); ALBUMIN/GLOBULIN RATIO 0.8 (1.0-1.7); TOTAL BILIRUBIN 0.4 mg/dL (0.2-1.0)
[2018-08-29] MEDS ORDERED: RANI300T3 PO (21:56)
[2018-08-29 22:53] VITALS: BP 173/66
--- NOTE | 2018-08-30 07:18 | EKG ---
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
== END 2018-08-29 23:08 | disposition home or self-care (01) ==
LOC: ER 20:18
DX: R10.13 Epigastric pain (principal); R07.89 Other chest pain; N18.6 End stage renal disease; Z99.2 Dependence on renal dialysis; J44.9 Chronic obstructive pulmonary disease, unspecified; G89.29 Other chronic pain; Z86.79 Personal history of other diseases of the circulatory system; Z90.710 Acquired absence of both cervix and uterus; Z88.5 Allergy status to narcotic agent
CPT/HCPCS: 36415; 80053; 83690; 84484; 85025; 93005; 96374; 99285; J2405

== ENCOUNTER 2018-09-14 09:46 | Observation (INO) | payer OTHER ==
[~2018-09-14] VITALS: Ht 157.5 cm; Wt 46.7 kg
[~2018-09-14 09:46] MED LIST changes: +RANI300T3 PO
[2018-09-14 10:02] VITALS: BP 213/99
--- NOTE | 2018-09-14 10:24 | RAD ---
Portable chest, 09/14/2018: HISTORY: Chest pain Comparison is made to a study from 08/22/2018. A left-sided multilumen dialysis type catheter extends into the superior aspect of the right atrium. The heart is mildly enlarged. There are mild bibasilar interstitial and airspace opacities similar to those seen on the previous study. No definite pleural fluid is seen. IMPRESSION: Mild unchanged basilar opacities suggesting chronic or recurrent mild basilar pulmonary edema and/or atelectasis. Electronically signed by: Danny Mullins MD (09/14/2018 10:21 AM) [facility]
--- NOTE | 2018-09-14 10:30 | PHYS DOC ---
Past Medical History Past Medical History: CHF, COPD, Diabetes-Type II, Heart Disease, Hypertension, Renal Disease, Vascular Disease Additional Past Medical Histor: neuropathy, cataracts,CHRONIC PAIN,ESRD Past Surgical History: Hysterectomy, Other Additional Past Surgical Histo: PICC PLACEMENT Alcohol Use: None Drug Use: None Adult General Chief Complaint Chief Complaint: CHEST WALL PAIN HPI HPI 58-year-old female presenting the emergency department today with chest pain t hat started around 4 o clock yesterday. She has chronic end-stage renal disease and CHF and was unfortunately unable to make her dialysis appointment on Monday. She is dialyzed on Monday. She has a chronic back pain that has been bothering her as well. The pain in her chest is nonradiating. It is associated with a cough and mild dyspnea. She denies nausea or vomiting. Review of systems is negative for abdominal pain vomiting fevers chills. All other review of systems is negative. ED course: 58-year-old female presenting with chest pain. EKG obtained and reviewed by myself shows sinus rhythm with a mildly tachycardic rate. ST segments show ST repolarization in the lateral leads which was similar to previous EKG on August 292018. Less repolarization than previous. Otherwise blood work obtained along with a chest x-ray. Blood work shows hemoglobin of 10.3. Up from previous. End-stage renal disease noted on chemistry panel. ProBNP is significantly elevated. Troponin is within normal limits. Chest x-ray shows bilateral opacities suggestive of pulmonary edema. We will admit the patient for serial troponin monitoring and dialysis. Current Medications Current Medications Current Medications Medications (Trade) Dose Ordered Sig/Clarence Start Time Stop Time Status Last Admin Dose Admin Fentanyl Citrate (Fentanyl 2ml Vial) 50 mcg PRN Q30MIN PRN 09/14/18 11:00 09/15/18 10:59 09/14/18 12:39 50 MCG Ondansetron HCl (Zofran) 4 mg PRN Q8HRS PRN 09/14/18 11:45 09/15/18 11:44 Allergies Allergies Allergies Coded Allergies Type Severity Reaction Last Updated Verified morphine Allergy Intermediate Itching 03/27/18 Yes Physical Exam Physical Exam Constitutional: Well developed, well nourished, no acute distress, non-toxic appearance. [] HENT: Normocephalic, atraumatic, bilateral external ears normal, oropharynx moist, no oral exudates, nose normal. [] Eyes: PERRLA, EOMI, conjunctiva normal, no discharge. [] Neck: Normal range of motion, no tenderness, supple, no stridor. [] Cardiovascular:Heart rate regular rhythm, no murmur [] Lungs & Thorax: Bilateral breath sounds clear to auscultation [] Abdomen: Bowel sounds normal, soft, no tenderness, no masses, no pulsatile masses. [] Skin: Warm, dry, no erythema, no rash. [] Back: No tenderness, no CVA tenderness. [] Extremities: No tenderness, no cyanosis, no clubbing, ROM intact, no edema. [] Neurologic: Alert and oriented X 3, normal motor function, normal sensory function, no focal deficits noted. [] Psychologic: Affect normal, judgement normal, mood normal. [] Current Patient Data Vital Signs Vital Signs Date Time Temp Pulse Resp B/P (MAP) Pulse Ox O2 Delivery O2 Flow Rate FiO2 09/14/18 12:39 20 97 Room Air 09/14/18 10:02 98.2 100 213/99 (137) 98.2 Lab Values Laboratory Tests Test 09/14/18 10:40 White Blood Count 9.8 x10^3/uL (4.0-11.0) Red Blood Count 3.31 x10^6/uL (3.50-5.40) L Hemoglobin 10.3 g/dL (12.0-15.5) L Hematocrit 30.7 % (36.0-47.0) L Mean Corpuscular Volume 93 fL (79-100) Mean Corpuscular Hemoglobin 31 pg (25-35) Mean Corpuscular Hemoglobin Concent 34 g/dL (31-37) Red Cell Distribution Width 17.6 % (11.5-14.5) H Platelet Count 372 x10^3/uL (140-400) Neutrophils (%) (Auto) 75 % (31-73) H Lymphocytes (%) (Auto) 16 % (24-48) L Monocytes (%) (Auto) 7 % (0-9) Eosinophils (%) (Auto) 1 % (0-3) Basophils (%) (Auto) 0 % (0-3) Neutrophils # (Auto) 7.4 x10^3uL (1.8-7.7) Lymphocytes # (Auto) 1.6 x10^3/uL (1.0-4.8) Monocytes # (Auto) 0.7 x10^3/uL (0.0-1.1) Eosinophils # (Auto) 0.1 x10^3/uL (0.0-0.7) Basophils # (Auto) 0.0 x10^3/uL (0.0-0.2) Sodium Level 140 mmol/L (136-145) Potassium Level 4.7 mmol/L (3.5-5.1) Chloride Level 105 mmol/L (98-107) Carbon Dioxide Level 23 mmol/L (21-32) Anion Gap 12 (6-14) Blood Urea Nitrogen 43 mg/dL (7-20) H Creatinine 7.4 mg/dL (0.6-1.0) H Estimated GFR (Cockcroft-Gault) 6.9 Glucose Level 171 mg/dL (70-99) H Calcium Level 8.6 mg/dL (8.5-10.1) Total Bilirubin 0.3 mg/dL (0.2-1.0) Direct Bilirubin 0.1 mg/dL (0.0-0.2) Aspartate Amino Transferase (AST) 39 U/L (15-37) H Alanine Aminotransferase (ALT) 50 U/L (14-59) Alkaline Phosphatase 123 U/L (46-116) H Troponin I Quantitative 0.038 ng/mL (0.000-0.055) FH-Yon-V-Type Natriuretic Peptide > 70543 pg/mL (0-124) H Total Protein 6.7 g/dL (6.4-8.2) Albumin 2.8 g/dL (3.4-5.0) L Lipase 157 U/L (73-393) Laboratory Tests 09/14/18 10:40 Laboratory Tests 09/14/18 10:40 EKG EKG [] Radiology/Procedures Radiology/Procedures [] Course & Med Decision Making Course & Med Decision Making Pertinent Labs and Imaging studies reviewed. (See chart for details) [] Dragon Disclaimer Dragon Disclaimer This electronic medical record was generated, in whole or in part, using a voice recognition dictation system. Departure Departure Impression: Primary Impression: Chest pain Additional Impression: ESRD (end stage renal disease) Disposition: 09 ADMITTED INPATIENT Condition: STABLE Referrals: UNKNOWN PCP NAME (PCP) Problem Qualifiers VANDANA GAMINO MD Sep 14, 2018 10:30
[2018-09-14 10:51] LABS: BASO % 0 % (0-3); EOS # 0.1 x10^3/uL (0.0-0.7); EOS % 1 % (0-3); HEMATOCRIT 30.7 % (36.0-47.0); HEMOGLOBIN 10.3 g/dL (12.0-15.5); LYMPH # 1.6 x10^3/uL (1.0-4.8); LYMPH % 16 % (24-48); MEAN CORPUSCULAR HEMOGLOBIN 31 pg (25-35); MEAN CORPUSCULAR HGB CONC 34 g/dL (31-37); MEAN CORPUSCULAR VOLUME 93 fL (79-100); MONO # 0.7 x10^3/uL (0.0-1.1); MONO % 7 % (0-9); NEUT # 7.4 x10^3uL (1.8-7.7); NEUT % 75 % (31-73); PLATELET COUNT 372 x10^3/uL (140-400); RED BLOOD COUNT 3.31 x10^6/uL (3.50-5.40); RED CELL DISTRIBUTION WIDTH 17.6 % (11.5-14.5); WHITE BLOOD COUNT 9.8 x10^3/uL (4.0-11.0)
[2018-09-14 11:03] LABS: CALCIUM 8.6 mg/dL (8.5-10.1); CREATININE 7.4 mg/dL (0.6-1.0); GFR 6.9; POTASSIUM 4.7 mmol/L (3.5-5.1)
[2018-09-14] MEDS: fentaNYL PF VIAL 100 MCG/2 ML VIAL IV PRN ×3 (11:05→13:50)
[2018-09-14 11:08] LABS: ALBUMIN 2.8 g/dL (3.4-5.0); DIRECT BILIRUBIN 0.1 mg/dL (0.0-0.2); TOTAL BILIRUBIN 0.3 mg/dL (0.2-1.0); TOTAL PROTEIN 6.7 g/dL (6.4-8.2)
[2018-09-14] MEDS ORDERED: ONDANSETRON PF 4 MG/2 ML VIAL. IV PRN (11:45)
--- NOTE | 2018-09-14 11:52 | EKG ---
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
--- NOTE | 2018-09-14 15:44 | PDOC1 ---
History and Physical Date of Admission Date of Admission DATE: 09/14/18 TIME: 15:42 Identification/Chief Complaint Chief Complaint chest pain, upset Source Source: Chart review, Patient History of Present Illness History of Present Illness Ms. Sears is a 58-year-old female admit from the emergency department today with pain. in the ER, she complained of chest pain that started around 4 o clock yesterday. Now, she complains of back pain, and abd pain, and that her check pain would be from her dialysis cath. She has refused PO meds, wanting only IV pain meds, she was upset and demanding when on the 6th floor, and then said she wanted to leave to go home to shoot herself, and that she wanted to go home to . suicide precautions done and Psych liason team ordered. she missed dialysis yesterday, She is dialyzed on Monday. She has a chronic back pain that has been bothering her as well. T Past Medical History Cardiovascular: CHF, HTN, Hyperlipidemia Pulmonary: Asthma, COPD CENTRAL NERVOUS SYSTEM: Periperal neuropathy GI: No pertinent hx Heme/Onc: No pertinent hx Hepatobiliary: No pertinent hx Psych: Anxiety Rheumatologic: Fibromyalgia Infectious disease: No pertinent hx Renal/: Chronic renal failure Endocrine: Diabetes, Hypothyroidism, Hyperparathyroidism Past Surgical History Past Surgical History: No pertinent history Family History Family History: Other Social History ALCOHOL: other Drugs: Cocaine, Marijuana Current Medications Current Medications Current Medications Fentanyl Citrate (Fentanyl 2ml Vial) 50 mcg PRN Q30MIN PRN IV SEVERE PAIN 7-10 Last administered on 09/14/18at 13:50; Start 09/14/18 at 11:00; Stop 09/14/18 at 13:50; Status DC Ondansetron HCl (Zofran) 4 mg PRN Q8HRS PRN IV NAUSEA/VOMITING; Start 09/14/18 at 11:45; Stop 09/15/18 at 11:44 Active Scripts Active Zantac (Ranitidine Hcl) 300 Mg Tablet 1 Tab PO QHS Compazine (Prochlorperazine Maleate) 5 Mg Tablet 5 Mg PO PRN TID PRN 10 Days Hydrocodone-Apap 5-325 (Hydrocodone Bit/Acetaminophen) 1 Tab Tablet 1 Tab PO PRN Q4HRS PRN 6 Days Alprazolam 0.5 Mg Tablet 0.5 Mg PO PRN TID PRN MDD 1 [Pantoprazole] 40 MG Tablet.dr 40 Mg PO DAILYAC 30 Days Reported Zoloft (Sertraline Hcl) 50 Mg Tablet 50 Mg PO DAILY Lisinopril 20 Mg Tablet 20 Mg PO DAILY Coreg (Carvedilol) 6.25 Mg Tablet 6.25 Mg PO BIDWMEALS Creon 6,000 Units Capsule (Lipase/Protease/Amylase) 1 Each Capsule.dr 1 Tab PO TID Proair Hfa (Albuterol Sulfate) 8.5 Gm Hfa.aer.ad 2 Puff INH BID PRN Levothyroxine Sodium 50 Mcg Tablet 1 Tab PO DAILY Clonidine Tts-2 (Clonidine) 1 Each Patch.tdwk 1 Patch TD WEEKLY Amlodipine Besylate 5 Mg Tablet 10 Mg PO DAILY Atorvastatin Calcium 40 Mg Tablet 40 Mg PO HS Latanoprost 2.5 Ml Drops 1 Drop EACHEYE HS Allergies Allergies: Coded Allergies: morphine (Verified Allergy, Intermediate, Itching, 03/27/18) ROS Review of System Review of systems is negative for abdominal pain vomiting fevers chills. All other review of systems is negative. General: YES: Fatigue PSYCHOLOGICAL ROS: YES: Sleep disturbances Eyes: No Blurry vision, No Decreased vision, No Double vision, No Dry eyes, No Excessive tearing, No Eye Pain, No Itchy Eyes, No Loss of vision, No Photo phobia, No Scotomata, No Uses contacts, No Uses glasses, No Other HEENT: No: Heacaches, Visual Changes, Hearing change, Nasal congestion, Nasal discharge, Oral lesions, Sinus pain, Sore Throat, Epistaxis, Sneezing, Snoring, Tinnitus, Vertigo, Vocal changes, Other Respiratory: YES: Cough Cardiovascular: yes Chest Pain Gastrointestinal: Yes Abdominal Pain Musculoskeletal: Yes Gait Disturbance, Yes Joint Pain, Yes Joint Stiffness, Yes Pain In: (back, chest wall) Neurological: No Behavorial Changes, No Bowel/Bladder ControlChng, No Confusion, No Dizziness, No Gait Disturbance, No Headaches, No Impaired Coord/balance, No Memory Loss, No Numbness/Tingling, No Seizures, No Speech Problems, No Tremors, No Visual Changes, No Weakness, No Other Skin: No Dry Skin, No Eczema, No Hair Changes, No Lumps, No Mole Changes, No Mottling, No Nail Changes, No Pruritus, No Rash, No Skin Lesion Changes, No Other, No Acne Physical Exam General: Alert, Cooperative, mild distress Lungs: Clear to auscultation Heart: S1S2 Breasts: No axillary nodes, Rt breast nml w/o mass Male Genitals Exam: normal genitalia Extremities: No clubbing, No cyanosis, No edema Neuro: Normal gait, Normal tone Psych/Mental Status: Mood NL Vitals Vitals Vital Signs Date Time Temp Pulse Resp B/P (MAP) Pulse Ox O2 Delivery O2 Flow Rate FiO2 09/14/18 13:50 16 98 Room Air 09/14/18 10:02 98.2 100 213/99 (137) 98.2 Labs Labs Laboratory Tests Test 09/14/18 10:40 White Blood Count 9.8 x10^3/uL (4.0-11.0) Red Blood Count 3.31 x10^6/uL (3.50-5.40) Hemoglobin 10.3 g/dL (12.0-15.5) Hematocrit 30.7 % (36.0-47.0) Mean Corpuscular Volume 93 fL (79-100) Mean Corpuscular Hemoglobin 31 pg (25-35) Mean Corpuscular Hemoglobin Concent 34 g/dL (31-37) Red Cell Distribution Width 17.6 % (11.5-14.5) Platelet Count 372 x10^3/uL (140-400) Neutrophils (%) (Auto) 75 % (31-73) Lymphocytes (%) (Auto) 16 % (24-48) Monocytes (%) (Auto) 7 % (0-9) Eosinophils (%) (Auto) 1 % (0-3) Basophils (%) (Auto) 0 % (0-3) Neutrophils # (Auto) 7.4 x10^3uL (1.8-7.7) Lymphocytes # (Auto) 1.6 x10^3/uL (1.0-4.8) Monocytes # (Auto) 0.7 x10^3/uL (0.0-1.1) Eosinophils # (Auto) 0.1 x10^3/uL (0.0-0.7) Basophils # (Auto) 0.0 x10^3/uL (0.0-0.2) Sodium Level 140 mmol/L (136-145) Potassium Level 4.7 mmol/L (3.5-5.1) Chloride Level 105 mmol/L (98-107) Carbon Dioxide Level 23 mmol/L (21-32) Anion Gap 12 (6-14) Blood Urea Nitrogen 43 mg/dL (7-20) Creatinine 7.4 mg/dL (0.6-1.0) Estimated GFR (Cockcroft-Gault) 6.9 Glucose Level 171 mg/dL (70-99) Calcium Level 8.6 mg/dL (8.5-10.1) Total Bilirubin 0.3 mg/dL (0.2-1.0) Direct Bilirubin 0.1 mg/dL (0.0-0.2) Aspartate Amino Transf (AST/SGOT) 39 U/L (15-37) Alanine Aminotransferase (ALT/SGPT) 50 U/L (14-59) Alkaline Phosphatase 123 U/L (46-116) Troponin I Quantitative 0.038 ng/mL (0.000-0.055) PX-Axm-G-Type Natriuretic Peptide > 75249 pg/mL (0-124) Total Protein 6.7 g/dL (6.4-8.2) Albumin 2.8 g/dL (3.4-5.0) Lipase 157 U/L (73-393) Laboratory Tests Test 09/14/18 10:40 White Blood Count 9.8 x10^3/uL (4.0-11.0) Red Blood Count 3.31 x10^6/uL (3.50-5.40) Hemoglobin 10.3 g/dL (12.0-15.5) Hematocrit 30.7 % (36.0-47.0) Mean Corpuscular Volume 93 fL (79-100) Mean Corpuscular Hemoglobin 31 pg (25-35) Mean Corpuscular Hemoglobin Concent 34 g/dL (31-37) Red Cell Distribution Width 17.6 % (11.5-14.5) Platelet Count 372 x10^3/uL (140-400) Neutrophils (%) (Auto) 75 % (31-73) Lymphocytes (%) (Auto) 16 % (24-48) Monocytes (%) (Auto) 7 % (0-9) Eosinophils (%) (Auto) 1 % (0-3) Basophils (%) (Auto) 0 % (0-3) Neutrophils # (Auto) 7.4 x10^3uL (1.8-7.7) Lymphocytes # (Auto) 1.6 x10^3/uL (1.0-4.8) Monocytes # (Auto) 0.7 x10^3/uL (0.0-1.1) Eosinophils # (Auto) 0.1 x10^3/uL (0.0-0.7) Basophils # (Auto) 0.0 x10^3/uL (0.0-0.2) Sodium Level 140 mmol/L (136-145) Potassium Level 4.7 mmol/L (3.5-5.1) Chloride Level 105 mmol/L (98-107) Carbon Dioxide Level 23 mmol/L (21-32) Anion Gap 12 (6-14) Blood Urea Nitrogen 43 mg/dL (7-20) Creatinine 7.4 mg/dL (0.6-1.0) Estimated GFR (Cockcroft-Gault) 6.9 Glucose Level 171 mg/dL (70-99) Calcium Level 8.6 mg/dL (8.5-10.1) Total Bilirubin 0.3 mg/dL (0.2-1.0) Direct Bilirubin 0.1 mg/dL (0.0-0.2) Aspartate Amino Transf (AST/SGOT) 39 U/L (15-37) Alanine Aminotransferase (ALT/SGPT) 50 U/L (14-59) Alkaline Phosphatase 123 U/L (46-116) Troponin I Quantitative 0.038 ng/mL (0.000-0.055) SJ-Zsy-P-Type Natriuretic Peptide > 20637 pg/mL (0-124) Total Protein 6.7 g/dL (6.4-8.2) Albumin 2.8 g/dL (3.4-5.0) Lipase 157 U/L (73-393) VTE Prophylaxis Ordered VTE Prophylaxis Devices: No VTE Pharmacological Prophylaxi: Yes Assessment/Plan Assessment/Plan major depression, reports suicidal thoughts chest pain, declines PO meds, wants IV meds, noncompliance with HD, ESRD HTN urgency - Anemia - of chronic renal diseas Hypothyroidism - on replacement therapy Right hip pain - HARDEEP MUÑOZ MD Sep 14, 2018 15:44
[2018-09-14] MEDS ORDERED: ALPRAZolam 0.5 MG TABLET PO PRN (15:45)
--- NOTE | 2018-09-14 15:45 | NUR ---
SANTIAGO notified by RN, pt is expressing SI. SANTIAGO phoned PAT team for assessment and evaluation. Linda from PAT team will see pt today.
[2018-09-14] MEDS ORDERED: PROCHLORPERAZINE 5 MG TABLET. PO PRN (16:00)
[2018-09-14] MEDS ORDERED: IV NORMAL SALINE 1000ML BAG 1,000 ML IV PRN ×2 (16:24)
[2018-09-14] MEDS: HYDROcodone/APAP 5/325MG 1 TAB TABLET PO PRN ×2 (16:24→17:13)
[2018-09-14] MEDS ORDERED: DIALYSIS PATIENT. MC PRN (16:30)
[2018-09-14] MEDS ORDERED: ACETAMINOPHEN 500 MG TABLET PO PRN (16:30)
[2018-09-14] MEDS ORDERED: LIDO:MAALOX 1:1 20 ML SINGLE DOSE. PO PRN (16:30)
[2018-09-14] MEDS ORDERED: ALBUMIN HUMAN 25% 200 ML IV PRN (16:30)
[2018-09-14] MEDS ORDERED: diphenhydrAMINE 50 MG/ML VIAL IV PRN ×2 (16:30)
--- NOTE | 2018-09-14 16:45 | NUR ---
Pt verbally aggressive with nursing staff and expressing thoughts of harming herself and others, 2nd code charlette called and PAT team came to bedside to see patient. Pt refusing to let staff take belongings, as a part of our suicide protocol. Pt demanding this RN to call daughter, Marcella, at [phone]. This RN left message with daughter to call the unit back as soon as possible. Sherrie, nursing quilting supervisor and security staff at bedside during PAT team assessment. Patient was cleared from suicide watch. Pt agreeable to go to dialysis, then wants to leave AMA. Dr. Quinn notified. Pt transported to dialysis via bed. Report called to MAGALY Rodriguez in dialysis.
[2018-09-14] MEDS ORDERED: SERTRALINE 50 MG TABLET. PO SCH (17:00)
[2018-09-14] MEDS ORDERED: CARVEDILOL 6.25 MG TABLET. PO SCH (17:00)
[2018-09-14] MEDS ORDERED: amLODIPine BESYLATE 5 MG TABLET PO SCH (17:00)
[2018-09-14] MEDS ORDERED: LISINOPRIL 20 MG TABLET PO SCH (17:00)
--- NOTE | 2018-09-14 20:45 | NUR ---
Patient returned to the unit from dialysis and insisted on leaving AMA. Nursing administrative staff supervisor notified for a cab pass. Patient refused to sign AMA form. Dr Quinn notified. Patient was escorted out by nursing administrative staff supervisor
[2018-09-14] MEDS ORDERED: ATORVASTATIN CALCIUM 40 MG TABLET. PO SCH (21:00)
[2018-09-14] MEDS ORDERED: LATANOPROST 0.005% OPHTH SOLUTION 2.5ML BOTTLE. OU SCH (21:00)
[2018-09-14] MEDS ORDERED: FAMOTIDINE 20 MG TABLET. PO SCH (21:00)
[2018-09-15] MEDS ORDERED: LEVOTHYROXINE 50 MCG TABLET PO SCH (06:00)
[2018-09-15] MEDS ORDERED: PANTOPRAZOLE 40 MG TABLET.DR. PO SCH (07:30)
[2018-09-21] MEDS ORDERED: cloNIDine TTS-2 1 PATCH PATCH TD SCH (09:00)
== END 2018-09-14 20:45 | disposition home or self-care (01) ==
LOC: ER 09:46 → 6 SOUTH 11:00 → ER 14:23
PROVIDERS: ADMIT Internal Medicine; ATTEND Internal Medicine
DX: R07.89 Other chest pain (principal); J44.9 Chronic obstructive pulmonary disease, unspecified; M54.9 Dorsalgia, unspecified; G89.29 Other chronic pain; E78.5 Hyperlipidemia, unspecified; E03.9 Hypothyroidism, unspecified; I16.0 Hypertensive urgency; F32.9 Major depressive disorder, single episode, unspecified; M79.7 Fibromyalgia; R45.851 Suicidal ideations; E11.22 Type 2 diabetes mellitus with diabetic chronic kidney disease; I13.2 Hypertensive heart and chronic kidney disease with heart failure and with stage 5 chronic kidney disease, or end stage renal disease; I50.9 Heart failure, unspecified; N18.6 End stage renal disease; N28.9 Disorder of kidney and ureter, unspecified; R00.0 Tachycardia, unspecified; F41.9 Anxiety disorder, unspecified; E11.42 Type 2 diabetes mellitus with diabetic polyneuropathy; D63.1 Anemia in chronic kidney disease; M25.551 Pain in right hip; Z91.15 Patient's noncompliance with renal dialysis; Z90.710 Acquired absence of both cervix and uterus
CPT/HCPCS: 36415; 71045; 80048; 80076; 83690; 83880; 84484; 85025; 93005; 96374; 96376; 99284; G0378; J3010; G0379

== ENCOUNTER 2018-10-01 07:27 | Emergency (ER) | payer OTHER ==
[~2018-10-01] VITALS: Ht 152.4 cm; Wt 46.7 kg
[2018-10-01] MEDS ORDERED: ONDANSETRON ODT 4 MG TAB.RAPDIS. PO ONE (08:00)
[2018-10-01] MEDS ORDERED: ONDANSETRON ODT 4 MG TAB.RAPDIS. ONE (08:00)
[2018-10-01] MEDS ORDERED: HYDROcodone/APAP 10/325 1 TAB TABLET PO ONE (08:00)
[2018-10-01] MEDS ORDERED: fentaNYL PF VIAL 100 MCG/2 ML VIAL IM ONE (08:00)
--- NOTE | 2018-10-01 08:17 | RAD ---
Left toe radiographs History: Left fifth toe pain Comparison: None. Findings: 3 views left foot with attention to the fifth digit are submitted. There is prominent vascular calcification. There is soft tissue swelling lateral to the fifth metatarsophalangeal joint and proximal fifth phalanx. No aggressive bone destruction or acute fracture is identified. No radiopaque foreign body is identified. Impression: 1. No acute osseous abnormality is identified. There is nonspecific soft tissue swelling lateral to the fifth metatarsophalangeal joint and proximal fifth phalanx. Electronically signed by: Jeffrey Jackson MD (10/01/2018 8:15 AM) [facility]
[2018-10-01 08:40] LABS: BASO # 0.1 x10^3/uL (0.0-0.2); BASO % 1 % (0-3); EOS # 0.1 x10^3/uL (0.0-0.7); EOS % 1 % (0-3); HEMATOCRIT 34.5 % (36.0-47.0); HEMOGLOBIN 11.7 g/dL (12.0-15.5); LYMPH # 2.1 x10^3/uL (1.0-4.8); LYMPH % 21 % (24-48); MEAN CORPUSCULAR HEMOGLOBIN 31 pg (25-35); MEAN CORPUSCULAR HGB CONC 34 g/dL (31-37); MEAN CORPUSCULAR VOLUME 92 fL (79-100); MONO # 0.7 x10^3/uL (0.0-1.1); MONO % 8 % (0-9); NEUT # 6.8 x10^3uL (1.8-7.7); NEUT % 69 % (31-73); PLATELET COUNT 289 x10^3/uL (140-400); RED BLOOD COUNT 3.73 x10^6/uL (3.50-5.40); RED CELL DISTRIBUTION WIDTH 16.4 % (11.5-14.5); WHITE BLOOD COUNT 9.8 x10^3/uL (4.0-11.0)
[2018-10-01 08:47] LABS: CALCIUM 8.6 mg/dL (8.5-10.1); CREATININE 9.5 mg/dL (0.6-1.0); GFR 5.2; POTASSIUM 5.5 mmol/L (3.5-5.1)
[2018-10-01 08:53] LABS: ALBUMIN 3.7 g/dL (3.4-5.0); TOTAL BILIRUBIN 0.4 mg/dL (0.2-1.0); TOTAL PROTEIN 7.4 g/dL (6.4-8.2)
[2018-10-01 08:57] VITALS: BP 185/79
[2018-10-01] MEDS ORDERED: ALBUTEROL SULFATE 2.5 MG/3 ML NEBU. CONT NEB ONE (09:00)
--- NOTE | 2018-10-01 09:11 | PHYS DOC ---
Past Medical History Past Medical History: CHF, COPD, Diabetes-Type II, Heart Disease, Hypertension, Renal Disease, Vascular Disease Additional Past Medical Histor: neuropathy, cataracts,CHRONIC PAIN,ESRD Past Surgical History: Hysterectomy, Other Additional Past Surgical Histo: PICC PLACEMENT Alcohol Use: None Drug Use: None Adult General Chief Complaint Chief Complaint: PAIN CONTROL HPI HPI Patient is a 58 year old female with history of chronic renal failure on dialys is and frequent emergency room visits who brought in by EMS because of hurting all over. Patient missed her dialysis this morning and called ambulance because of hurting all over but in the emergency room she only complaining of left fifth toe pain that going on for 2 weeks after she injured her toe as a constant and sharp pain and rated her pain 10 over 10. Patient denies fever and chills, focal neuro deficit. Patient states she took Tylenol without improvement of her pain. Patient has had frequent emergency room that usually happens after missing her dialysis. Review of Systems Review of Systems Constitutional: Denies fever or chills [] Eyes: Denies change in visual acuity, redness, or eye pain [] HENT: Denies nasal congestion or sore throat [] Respiratory: Denies cough or shortness of breath [] Cardiovascular: No additional information not addressed in HPI [] GI: Denies abdominal pain, bloody stools or diarrhea [] : Denies dysuria or hematuria [] Musculoskeletal: Denies back pain, reports joint pain [] Integument: Denies rash or skin lesions [] Neurologic: Denies headache, focal weakness or sensory changes [] Endocrine: Denies polyuria or polydipsia [] All other systems were reviewed and found to be within normal limits, except as documented in this note. Current Medications Current Medications Current Medications Medications (Trade) Dose Ordered Sig/Clarence Start Time Stop Time Status Last Admin Dose Admin Acetaminophen/ Hydrocodone Bitart (Lortab 10/325) 1 tab 1X ONCE 10/01/18 08:00 10/01/18 08:01 DC Albuterol Sulfate (Ventolin Neb Soln) 10 mg 1X ONCE 10/01/18 09:00 10/01/18 09:01 DC 10/01/18 09:20 10 MG Fentanyl Citrate (Fentanyl 2ml Vial) 50 mcg 1X ONCE 10/01/18 08:00 10/01/18 08:01 DC 10/01/18 08:20 50 MCG Ondansetron HCl (Zofran Odt) 4 mg STK-MED ONCE 10/01/18 08:00 10/01/18 08:01 DC Allergies Allergies Allergies Coded Allergies Type Severity Reaction Last Updated Verified morphine Allergy Intermediate Itching 03/27/18 Yes Physical Exam Physical Exam Constitutional: Mild distress, non-toxic appearance. [] HENT: Normocephalic, atraumatic, oropharynx moist.[] Eyes: PERRLA, EOMI, conjunctiva normal, no discharge. [] Neck: Normal range of motion, no tenderness, supple, no stridor. [] Cardiovascular:Heart rate regular rhythm, no murmur [] Lungs & Thorax: Bilateral breath sounds clear to auscultation [] Abdomen: Bowel sounds normal, soft, no tenderness, no masses, no pulsatile masses. [] Skin: Warm, dry, no erythema, no rash. [] Back: No tenderness, no CVA tenderness. [] Extremities: No tenderness, no cyanosis, no clubbing, ROM intact, left fifth toe with mild edema and tenderness without deformity or sign of infection.[] Neurologic: Alert and oriented X 3, normal motor function, normal sensory function, no focal deficits noted. [] Psychologic: Affect anxious, mood normal. [] Current Patient Data Vital Signs Vital Signs Date Time Temp Pulse Resp B/P (MAP) Pulse Ox O2 Delivery O2 Flow Rate FiO2 10/01/18 09:20 96 Room Air 10/01/18 08:20 18 10/01/18 07:28 97.8 95 206/88 (127) 97.8 Lab Values Laboratory Tests Test 10/01/18 08:30 White Blood Count 9.8 x10^3/uL (4.0-11.0) Red Blood Count 3.73 x10^6/uL (3.50-5.40) Hemoglobin 11.7 g/dL (12.0-15.5) L Hematocrit 34.5 % (36.0-47.0) L Mean Corpuscular Volume 92 fL (79-100) Mean Corpuscular Hemoglobin 31 pg (25-35) Mean Corpuscular Hemoglobin Concent 34 g/dL (31-37) Red Cell Distribution Width 16.4 % (11.5-14.5) H Platelet Count 289 x10^3/uL (140-400) Neutrophils (%) (Auto) 69 % (31-73) Lymphocytes (%) (Auto) 21 % (24-48) L Monocytes (%) (Auto) 8 % (0-9) Eosinophils (%) (Auto) 1 % (0-3) Basophils (%) (Auto) 1 % (0-3) Neutrophils # (Auto) 6.8 x10^3uL (1.8-7.7) Lymphocytes # (Auto) 2.1 x10^3/uL (1.0-4.8) Monocytes # (Auto) 0.7 x10^3/uL (0.0-1.1) Eosinophils # (Auto) 0.1 x10^3/uL (0.0-0.7) Basophils # (Auto) 0.1 x10^3/uL (0.0-0.2) Sodium Level 139 mmol/L (136-145) Potassium Level 5.5 mmol/L (3.5-5.1) H Chloride Level 95 mmol/L (98-107) L Carbon Dioxide Level 30 mmol/L (21-32) Anion Gap 14 (6-14) Blood Urea Nitrogen 65 mg/dL (7-20) H Creatinine 9.5 mg/dL (0.6-1.0) H Estimated GFR (Cockcroft-Gault) 5.2 BUN/Creatinine Ratio 7 (6-20) Glucose Level 130 mg/dL (70-99) H Calcium Level 8.6 mg/dL (8.5-10.1) Total Bilirubin 0.4 mg/dL (0.2-1.0) Aspartate Amino Transferase (AST) 30 U/L (15-37) Alanine Aminotransferase (ALT) 29 U/L (14-59) Alkaline Phosphatase 104 U/L (46-116) Troponin I Quantitative 0.065 ng/mL (0.000-0.055) BH-Pbh-L-Type Natriuretic Peptide > 52292 pg/mL (0-124) H Total Protein 7.4 g/dL (6.4-8.2) Albumin 3.7 g/dL (3.4-5.0) Albumin/Globulin Ratio 1.0 (1.0-1.7) Lipase 377 U/L (73-393) Laboratory Tests 10/01/18 08:30 Laboratory Tests 10/01/18 08:30 EKG EKG [] Radiology/Procedures Radiology/Procedures [facility] [address] [place] [address] IMAGING REPORT Signed PATIENT: OTTONIEL SMITH ACCOUNT: [id number] : 1960 LOCATION: ER AGE: 58 SEX: F EXAM STATUS: REG ER ORD. PHYSICIAN: KIMBERLY DONOHUE MD REASON: left fifth toe pain, sore to lt lat 5th toe, pt very uncooperative PROCEDURE: TOES LEFT Left toe radiographs History: Left fifth toe pain Comparison: None. Findings: 3 views left foot with attention to the fifth digit are submitted. There is prominent vascular calcification. There is soft tissue swelling lateral to the fifth metatarsophalangeal joint and proximal fifth phalanx. No aggressive bone destruction or acute fracture is identified. No radiopaque foreign body is identified. Impression: 1. No acute osseous abnormality is identified. There is nonspecific soft tissue swelling lateral to the fifth metatarsophalangeal joint and proximal fifth phalanx. Electronically signed by: Rhett Trinh MD (10/01/2018 8:15 AM) [facility] DICTATED and SIGNED BY: RHETT TRINH MD DATE: 10/01/18814 Course & Med Decision Making Course & Med Decision Making Pertinent Labs and Imaging studies reviewed. (See chart for details) Evaluation of patient in ER showed 58-year-old female patient with history of chronic renal failure on dialysis with frequent emergency room visits approximately by EMS because of hurting all over and pain in left fifth toe. Patient had mild elevation of potassium of 5.5 and treated with albuterol inhaler to ER. Patient also had chronic mild elevation of troponin because of chronic renal failure without complaining of chest pain. The of left fifth toe x ray did not show sign of osteomyelitis or fracture. Patient treated with fentanyl in ER. Patient also had 1 episodes of vomiting at the time of the starting IV line and stated she has had nausea and vomiting since this morning. Patient had 1 bowel movement in ER without diarrhea. She felt better with Zofran sublingual and IM fentanyl. Patient has appointment with dialysis at 3:30 today. Patient denies his appointment changed to 11 AM today and Hospital transportation was provided to take her to dialysis. Prescription for Keflex and [place] was given. Patient refused to go for dialysis and states she has things to do and refused to use Hospital transportation but again she decided to go with transportation to dialysis for appointment at 11 AM today. Dragon Disclaimer Dragon Disclaimer This electronic medical record was generated, in whole or in part, using a voice recognition dictation system. Departure Departure Impression: Primary Impression: Crushing injury of fifth toe, left Additional Impressions: Elevated troponin Chronic kidney disease with end stage renal failure on dialysis Anxiety Chronic generalized pain Hyperkalemia Disposition: HOME, SELF-CARE (at [phone] to dialysis center) Condition: IMPROVED Referrals: UNKNOWN PCP NAME (PCP) Patient Instructions: Chronic Pain, Diabetes and Foot Care Additional Instructions: Follow-up with your dialysis today Follow-up with your primary care physician in 1-2days Return to ER if not getting better Scripts Hydrocodone/Apap 5-325 (NORCO 5-325 TABLET) 1 Each Tablet 1 TAB PO PRN Q6HRS PRN for PAIN, #10 TAB 0 Refills Prov: KIMBERLY DONOHUE MD 10/01/18 Cephalexin (KEFLEX) 500 Mg Capsule 1 CAP PO Q8HRS, #30 CAP Prov: KIMBERLY DONOHUE MD 10/01/18 Problem Qualifiers Primary Impression: Crushing injury of fifth toe, left Encounter type: initial encounter Qualified Codes: S97.122A - Crushing injury of left lesser toe(s), initial encounter KIMBERLY DONOHUE MD Oct 01, 2018 09:11
[2018-10-01] MEDS ORDERED: HYDR-3164 PO (09:32)
[2018-10-01] MEDS ORDERED: CEPH-264 PO (09:32)
== END 2018-10-01 09:35 | disposition home or self-care (01) ==
LOC: ER 07:27
DX: S97.122A Crushing injury of left lesser toe(s), initial encounter (principal); G89.29 Other chronic pain; M79.10 Myalgia, unspecified site; R79.89 Other specified abnormal findings of blood chemistry; F41.9 Anxiety disorder, unspecified; E11.22 Type 2 diabetes mellitus with diabetic chronic kidney disease; I13.2 Hypertensive heart and chronic kidney disease with heart failure and with stage 5 chronic kidney disease, or end stage renal disease; I50.9 Heart failure, unspecified; N18.6 End stage renal disease; Z99.2 Dependence on renal dialysis; J44.9 Chronic obstructive pulmonary disease, unspecified; E11.40 Type 2 diabetes mellitus with diabetic neuropathy, unspecified; E87.5 Hyperkalemia; Z88.5 Allergy status to narcotic agent; X58.XXXA Exposure to other specified factors, initial encounter; Y93.89 Activity, other specified; Y92.89 Other specified places as the place of occurrence of the external cause; Y99.8 Other external cause status
CPT/HCPCS: 36415; 73660; 80053; 83690; 83880; 84484; 85025; 94644; 96372; 99285; J3010; J7613; Q0162; 94640

== ENCOUNTER 2018-11-05 08:43 | Emergency (ER) | payer OTHER ==
[~2018-11-05] VITALS: Ht 152.4 cm; Wt 54.4 kg
[~2018-11-05 08:43] MED LIST changes: +AMOX1TAB10 PO; +CEPH-264 PO
[2018-11-05] MEDS ORDERED: HYDROcodone/APAP 5/325MG 1 TAB TABLET PO ONE (09:00)
--- NOTE | 2018-11-05 09:03 | PHYS DOC ---
Past Medical History Past Medical History: CHF, COPD, Diabetes-Type II, Heart Disease, Hypertension, Renal Disease, Vascular Disease Additional Past Medical Histor: neuropathy, cataracts,CHRONIC PAIN,ESRD Past Surgical History: Hysterectomy, Other Additional Past Surgical Histo: PICC PLACEMENT Alcohol Use: None Drug Use: None Adult General Chief Complaint Chief Complaint: PAIN CONTROL HPI HPI Patient is a 58 year old female presents to the ED complaining of bilateral foot pain. Patient has a history of diabetes. States that she is out of her pain medication and is requesting medication for pain. Patient has had left toe amputation. Reports pain to right great toe. Patient goes to dialysis and is supposed to go to dialysis today at 2 PM. Denies injury, weakness, drainage, laceration, calf pain/swelling, nausea/vomiting, headache, chest pain, shortness of breath, dizziness or weakness. Review of Systems Review of Systems Constitutional: Denies fever or chills [] Eyes: Denies change in visual acuity, redness, or eye pain [] HENT: Denies nasal congestion or sore throat [] Respiratory: Denies cough or shortness of breath [] Cardiovascular: No additional information not addressed in HPI [] GI: Denies abdominal pain, nausea, vomiting, bloody stools or diarrhea [] : Denies dysuria or hematuria [] Musculoskeletal: Complains of bilateral foot pain. Denies back pain. Integument: Denies rash or skin lesions [] Neurologic: Denies headache, focal weakness or sensory changes [] All other systems were reviewed and found to be within normal limits, except as documented in this note. Current Medications Current Medications Current Medications Medications (Trade) Dose Ordered Sig/[facility] Start Time Stop Time Status Last Admin Dose Admin Acetaminophen/ Hydrocodone Bitart (Lortab 5/325) 2 tab 1X ONCE 11/05/18 09:00 11/05/18 09:01 DC 11/05/18 09:12 2 TAB Allergies Allergies Allergies Coded Allergies Type Severity Reaction Last Updated Verified morphine Allergy Intermediate Itching 03/27/18 Yes Physical Exam Physical Exam Constitutional: no acute distress, non-toxic appearance. [] HENT: Normocephalic, atraumatic, bilateral external ears normal, oropharynx moist, no oral exudates, nose normal. [] Eyes: PERRLA, EOMI, conjunctiva normal, no discharge. [] Neck: Normal range of motion, no tenderness, supple, no stridor. [] Cardiovascular:Heart rate regular rhythm, no murmur [] Lungs & Thorax: Bilateral breath sounds clear to auscultation [] Abdomen: Bowel sounds normal, soft, no tenderness, no masses, no pulsatile mass es. [] Skin: Warm, dry, no erythema, no rash. [] Back: No tenderness, no CVA tenderness. [] Extremities: No cyanosis, no clubbing, ROM intact, Left toe site C/D/I with no signs of infection. Mild right great toe tenderness. FROM. NV intact. mild skin peeling without erythema, warmth, necrosis, or abscess. Neurologic: Alert and oriented X 3, normal motor function, normal sensory function, no focal deficits noted. [] Psychologic: Affect normal, judgement normal, mood normal. [] Current Patient Data Vital Signs Vital Signs Date Time Temp Pulse Resp B/P (MAP) Pulse Ox O2 Delivery O2 Flow Rate FiO2 11/05/18 09:45 82 18 96 11/05/18 09:12 Room Air 11/05/18 08:45 98.8 143/64 (90) 98.8 EKG EKG [] Radiology/Procedures Radiology/Procedures []PROCEDURE: TOES RIGHT 3 view study of the great toe of the right foot Clinical indications: Right great toe pain. FINDINGS: No acute fracture or dislocation or lytic process is seen. There is mild degenerative spurring of the first metatarsal phalangeal joint. Extensive calcified arterial disease is seen which may be noted with diabetes. No soft tissue air is seen. IMPRESSION: No acute osseous abnormality. Course & Med Decision Making Course & Med Decision Making Pertinent Labs and Imaging studies reviewed. (See chart for details) []Discussed imaging findings with patient. Patient's pain improved with medic ation in the ED. Discussed symptomatic treatment. We'll prescribe a short course of analgesics outpatient. Discussed follow-up with PCP for further evaluation and management of foot. Patient has dialysis at 2:00pm. Patient well-appearing in the ED. Discussed signs and symptoms to return to the ED. Patient understands and agrees with plan. Patient discharged in time to get to dialysis. Dragon Disclaimer Dragon Disclaimer This electronic medical record was generated, in whole or in part, using a voice recognition dictation system. Departure Departure Impression: Primary Impression: Foot pain Disposition: 01 HOME, SELF-CARE Condition: IMPROVED Referrals: UNKNOWN PCP NAME (PCP) Patient Instructions: Peripheral Vascular Disease Scripts Hydrocodone/Apap 5-325 (NORCO 5-325 TABLET) 1 Each Tablet 1 TAB PO BID for 5 Days, #10 TAB Prov: ANDREA RIBEIRO 11/05/18 ANDREA RIBEIRO Nov 05, 2018 09:03
[2018-11-05 09:45] VITALS: BP 170/72
--- NOTE | 2018-11-05 09:48 | RAD ---
3 view study of the great toe of the right foot Clinical indications: Right great toe pain. FINDINGS: No acute fracture or dislocation or lytic process is seen. There is mild degenerative spurring of the first metatarsal phalangeal joint. Extensive calcified arterial disease is seen which may be noted with diabetes. No soft tissue air is seen. IMPRESSION: No acute osseous abnormality. Electronically signed by: Raulito Bean MD (11/05/2018 9:46 AM) [facility]
[2018-11-05] MEDS ORDERED: HYDR-3164 PO (09:54)
== END 2018-11-05 10:34 | disposition home or self-care (01) ==
LOC: ER 08:43
DX: M79.674 Pain in right toe(s) (principal); M79.672 Pain in left foot; J44.9 Chronic obstructive pulmonary disease, unspecified; E11.40 Type 2 diabetes mellitus with diabetic neuropathy, unspecified; E11.36 Type 2 diabetes mellitus with diabetic cataract; E11.22 Type 2 diabetes mellitus with diabetic chronic kidney disease; I13.2 Hypertensive heart and chronic kidney disease with heart failure and with stage 5 chronic kidney disease, or end stage renal disease; I50.9 Heart failure, unspecified; N18.6 End stage renal disease; G89.29 Other chronic pain; Z90.710 Acquired absence of both cervix and uterus; Z88.5 Allergy status to narcotic agent
CPT/HCPCS: 73660; 99284

== ENCOUNTER 2018-11-12 00:51 | Emergency (ER) | payer OTHER ==
[~2018-11-12] VITALS: Ht 162.6 cm; Wt 54.4 kg
[2018-11-12 01:17] VITALS: BP 213/84
[2018-11-12 01:37] LABS: BASO # 0.1 x10^3/uL (0.0-0.2); BASO % 1 % (0-3); EOS # 0.1 x10^3/uL (0.0-0.7); EOS % 1 % (0-3); HEMATOCRIT 21.6 % (36.0-47.0); HEMOGLOBIN 7.4 g/dL (12.0-15.5); LYMPH # 1.6 x10^3/uL (1.0-4.8); LYMPH % 14 % (24-48); MEAN CORPUSCULAR HEMOGLOBIN 31 pg (25-35); MEAN CORPUSCULAR HGB CONC 34 g/dL (31-37); MEAN CORPUSCULAR VOLUME 90 fL (79-100); MONO # 0.8 x10^3/uL (0.0-1.1); MONO % 8 % (0-9); NEUT # 8.3 x10^3/uL (1.8-7.7); NEUT % 77 % (31-73); PLATELET COUNT 409 x10^3/uL (140-400); RED BLOOD COUNT 2.42 x10^6/uL (3.50-5.40); RED CELL DISTRIBUTION WIDTH 19.2 % (11.5-14.5); WHITE BLOOD COUNT 10.9 x10^3/uL (4.0-11.0)
[2018-11-12 01:43] LABS: CALCIUM 8.7 mg/dL (8.5-10.1); CREATININE 7.3 mg/dL (0.6-1.0); POTASSIUM 4.5 mmol/L (3.5-5.1)
[2018-11-12] MEDS ORDERED: ACETAMINOPHEN 500 MG TABLET PO ONE (02:15)
--- NOTE | 2018-11-12 02:24 | PHYS DOC ---
Past Medical History Past Medical History: CHF, COPD, Diabetes-Type II, Heart Disease, Hypertension, Renal Disease, Vascular Disease Additional Past Medical Histor: neuropathy, cataracts,CHRONIC PAIN,ESRD Past Surgical History: Hysterectomy, Other Additional Past Surgical Histo: PICC PLACEMENT Alcohol Use: None Drug Use: None Adult General Chief Complaint Chief Complaint: GENERALIZED BODY ACHES HPI HPI Patient is a 58 year old -[place] female with history of end- stage renal disease currently on dialysis and anxiety who presents with generalized pain, tenderness, and fatigue. states she hurts all over but especially hurts on her toes. Patient with healing blisters to the right great toe. Patient walked to ambulance and slept en route to the ED per EMS. Patient crying as she arrive through EMS entrance to the ED. Patient denies fall or inj ury. Last full dialysis session was 3 days ago. [] Review of Systems Review of Systems ROS as per HPI All other systems were reviewed and found to be within normal limits, except as documented in this note. Current Medications Current Medications Current Medications Medications (Trade) Dose Ordered Sig/Clarence Start Time Stop Time Status Last Admin Dose Admin Acetaminophen (Tylenol) 1,000 mg 1X ONCE 11/12/18 02:15 11/12/18 02:07 DC Allergies Allergies Allergies Coded Allergies Type Severity Reaction Last Updated Verified morphine Allergy Intermediate Itching 03/27/18 Yes Physical Exam Physical Exam Constitutional: Well developed, well nourished, anxious. [] HENT: Normocephalic, atraumatic, bilateral external ears normal, oropharynx moist, nose normal. [] Eyes: PERRLA, EOMI, conjunctiva normal, no discharge. [] Neck: Normal range of motion, no tenderness, supple, no stridor. [] Cardiovascular:Heart rate regular rhythm, no murmur [] Lungs & Thorax: Respirations nonlabored diminished breath sounds bilaterally.[] Abdomen: Bowel sounds normal, soft, no tenderness. [] Skin: Warm, dry, no erythema, no rash. [] Back: No tenderness, no CVA tenderness. [] Extremities: Healing blisters to right great toe. [] Neurologic: Alert and oriented X 3, normal motor function, normal sensory function, no focal deficits noted. [] Current Patient Data Vital Signs Vital Signs Date Time Temp Pulse Resp B/P (MAP) Pulse Ox O2 Delivery O2 Flow Rate FiO2 11/12/18 01:17 98.4 94 18 213/84 (127) 96 Room Air 98.4 Lab Values Laboratory Tests Test 11/12/18 01:01 11/12/18 01:20 Glucose (Fingerstick) 117 mg/dL (70-99) H White Blood Count 10.9 x10^3/uL (4.0-11.0) Red Blood Count 2.42 x10^6/uL (3.50-5.40) L Hemoglobin 7.4 g/dL (12.0-15.5) L Hematocrit 21.6 % (36.0-47.0) L Mean Corpuscular Volume 90 fL (79-100) Mean Corpuscular Hemoglobin 31 pg (25-35) Mean Corpuscular Hemoglobin Concent 34 g/dL (31-37) Red Cell Distribution Width 19.2 % (11.5-14.5) H Platelet Count 409 x10^3/uL (140-400) H Neutrophils (%) (Auto) 77 % (31-73) H Lymphocytes (%) (Auto) 14 % (24-48) L Monocytes (%) (Auto) 8 % (0-9) Eosinophils (%) (Auto) 1 % (0-3) Basophils (%) (Auto) 1 % (0-3) Neutrophils # (Auto) 8.3 x10^3/uL (1.8-7.7) H Lymphocytes # (Auto) 1.6 x10^3/uL (1.0-4.8) Monocytes # (Auto) 0.8 x10^3/uL (0.0-1.1) Eosinophils # (Auto) 0.1 x10^3/uL (0.0-0.7) Basophils # (Auto) 0.1 x10^3/uL (0.0-0.2) Sodium Level 140 mmol/L (136-145) Potassium Level 4.5 mmol/L (3.5-5.1) Chloride Level 102 mmol/L (98-107) Carbon Dioxide Level 25 mmol/L (21-32) Anion Gap 13 (6-14) Blood Urea Nitrogen 38 mg/dL (7-20) H Creatinine 7.3 mg/dL (0.6-1.0) H Estimated GFR (Cockcroft-Gault) 7.0 Glucose Level 121 mg/dL (70-99) H Calcium Level 8.7 mg/dL (8.5-10.1) Creatine Kinase 59 U/L (26-192) Troponin I Quantitative 0.046 ng/mL (0.000-0.055) Thyroid Stimulating Hormone (TSH) 1.540 uIU/mL (0.358-3.74) Laboratory Tests 11/12/18 01:20 Laboratory Tests 11/12/18 01:20 EKG EKG [EKG: reviewed] Radiology/Procedures Radiology/Procedures [] Course & Med Decision Making Course & Med Decision Making Pertinent Labs and Imaging studies reviewed. (See chart for details) [Patient with poorly controlled insulin-dependent diabetes with neuropathy of lower extremities presents with generalized pain and aching. Patient does not appear to be in acute distress. Symptoms appear to be chronic and long-standing. Pain medication offered and declined in the emergency department. Recommendations are to follow-up with dialysis later today, tight management if diabetes and PCP follow up for management of chronic pain and peripheral neuropathy. ] Dragon Disclaimer Dragon Disclaimer This electronic medical record was generated, in whole or in part, using a voice recognition dictation system. Departure Departure Impression: Primary Impression: Anxiety Additional Impressions: Neuropathy Chronic kidney disease Hyperglycemia Disposition: 01 HOME, SELF-CARE Condition: STABLE Referrals: UNKNOWN PCP NAME (PCP) Patient Instructions: Anxiety and Panic Attacks, [id number], Diabetic Neuropathy Additional Instructions: Please follow-up with dialysis later this morning, continue home medications follow-up with PCP for tight monitoring and control of diabetes and evaluation and treatment of neuropathy. Problem Qualifiers KAYLEE MORGAN DO Nov 12, 2018 02:24
--- NOTE | 2018-11-12 07:01 | EKG ---
[facility] [address] [place] [address] Test Date: 2018-11-12 Test Time: 01:04:27 Pat Name: OTTONIEL SMITH Department: Room: Gender: F [employer]: : 1960 Requested By: KAYLEE MORGAN Order Number: [id number] Reading MD: Marbin Kennedy MD Measurements Intervals [place] Rate: 91 P: 71 RI: 156 QRS: 24 QRSD: 80 T: 167 QT: 342 QTc: 422 Interpretive Statements SINUS RHYTHM LEFT ATRIAL ABNORMALITY ST & T ABNORMALITY, CONSIDER ANTEROLATERAL ISCHEMIA OR LEFT VENTRICULAR STRAIN INFEROLATERAL ISCHEMIA OR LEFT VENTRICULAR STRAIN ABNORMAL ECG Electronically Signed On 11-16-2018 9:51:46 CDT by Marbin Kennedy MD
== END 2018-11-12 02:30 | disposition home or self-care (01) ==
LOC: ER 00:51
DX: E11.40 Type 2 diabetes mellitus with diabetic neuropathy, unspecified (principal); S90.421A Blister (nonthermal), right great toe, initial encounter; F41.9 Anxiety disorder, unspecified; R53.83 Other fatigue; J44.9 Chronic obstructive pulmonary disease, unspecified; E11.22 Type 2 diabetes mellitus with diabetic chronic kidney disease; E11.65 Type 2 diabetes mellitus with hyperglycemia; I13.2 Hypertensive heart and chronic kidney disease with heart failure and with stage 5 chronic kidney disease, or end stage renal disease; N18.6 End stage renal disease; G89.29 Other chronic pain; Z88.5 Allergy status to narcotic agent; Z90.710 Acquired absence of both cervix and uterus
CPT/HCPCS: 36415; 80048; 82550; 82962; 84443; 84484; 85025; 93005; 99285

== ENCOUNTER 2018-11-14 20:28 | Emergency (ER) | payer OTHER ==
[~2018-11-14] VITALS: Ht 157.5 cm; Wt 45.4 kg
[2018-11-14 21:00] VITALS: BP 170/72
[2018-11-14] MEDS ORDERED: HYDROcodone/APAP 5/325MG 1 TAB TABLET PO ONE (21:00)
[2018-11-14] MEDS ORDERED: CEPH-264 PO (21:12)
[2018-11-14] MEDS ORDERED: ACET325C5 PO (21:12)
--- NOTE | 2018-11-14 21:12 | PHYS DOC ---
Past Medical History Past Medical History: CHF, COPD, Diabetes-Type II, Heart Disease, Hypertension, Renal Disease, Vascular Disease Additional Past Medical Histor: neuropathy, cataracts,CHRONIC PAIN,ESRD Past Surgical History: Hysterectomy, Other Additional Past Surgical Histo: PICC PLACEMENT Alcohol Use: None Drug Use: None Adult General Chief Complaint Chief Complaint: TOE PROBLEM HPI HPI Patient is a 58 year old female with history of diabetes mellitus and end-stage renal disease on dialysis and frequent emergency room visits who presents via EMS with complaining of right toe pain. Patient complaining of right great toe pain for a long time and rated her pain 10 over 10. Patient was seen in this emergency patient on 11/12 with the same complaint and discharged with diagnosis of anxiety and states she did not receive any antibiotic. EMS reported that patient did not have a ride to go home after finishing dialysis this afternoon and therefore the dialysis staff called 911 before closing the facility. Review of Systems Review of Systems Constitutional: Denies fever or chills [] Eyes: Denies change in visual acuity, redness, or eye pain [] HENT: Denies nasal congestion or sore throat [] Respiratory: Denies cough or shortness of breath [] Cardiovascular: No additional information not addressed in HPI [] GI: Denies abdominal pain, nausea, vomiting, bloody stools or diarrhea [] : Denies dysuria or hematuria [] Musculoskeletal: Denies back pain, reports joint pain [] Integument: Denies rash or skin lesions [] Neurologic: Denies headache, focal weakness or sensory changes [] Endocrine: Denies polyuria or polydipsia [] All other systems were reviewed and found to be within normal limits, except as documented in this note. Current Medications Current Medications Current Medications Medications (Trade) Dose Ordered Sig/Clarence Start Time Stop Time Status Last Admin Dose Admin Acetaminophen/ Hydrocodone Bitart (Lortab 5/325) 1 tab 1X ONCE 11/14/18 21:00 11/14/18 21:01 DC 11/14/18 21:15 1 TAB Allergies Allergies Allergies Coded Allergies Type Severity Reaction Last Updated Verified morphine Allergy Intermediate Itching 03/27/18 Yes Physical Exam Physical Exam Constitutional: Well developed, well nourished, no distress, non-toxic appearance. [] HENT: Normocephalic, atraumatic. Eyes: PERRLA, EOMI, conjunctiva normal, no discharge. [] Neck: Normal range of motion, no tenderness, supple, no stridor. [] Cardiovascular:Heart rate regular rhythm, no murmur [] Lungs & Thorax: Bilateral breath sounds clear to auscultation [] Extremities: Right great toe with mild edema and erythema of tip of toe without gangrene or abscess,no tenderness, left fifth toe amputated without sign of infection no cyanosis, no clubbing, ROM intact, no edema. [] Neurologic: Alert and oriented X 3, no focal deficits noted. [] Psychologic: Affect anxious, judgement normal, mood normal. [] Current Patient Data Vital Signs Vital Signs Date Time Temp Pulse Resp B/P (MAP) Pulse Ox O2 Delivery O2 Flow Rate FiO2 11/14/18 21:15 18 96 Room Air 11/14/18 21:00 76 170/72 (104) 11/14/18 20:30 98.1 98.1 Lab Values Laboratory Tests Test 11/14/18 20:49 Glucose (Fingerstick) 105 mg/dL (70-99) H EKG EKG [] Radiology/Procedures Radiology/Procedures [][facility] [address] [place] [address] IMAGING REPORT Signed PATIENT: OTTONIEL SMITH ACCOUNT: [id number] : 1960 LOCATION: ER AGE: 58 SEX: F EXAM STATUS: DEP ER ORD. PHYSICIAN: KIMBERLY DONOHUE MD REASON: great toe infection PROCEDURE: TOES RIGHT Exam: Radiographs RHONDA hose right INDICATION: Great toe infection TECHNIQUE: Frontal view of the right foot with oblique and lateral views of the first digit. Comparisons: None FINDINGS: Soft tissue swelling of the first digit. Vascular calcifications are noted. No acute or healed fractures. Moderate osteoarthritic change at the first MTP joint. Otherwise, joint spaces are well-maintained. IMPRESSION: Soft tissue swelling of the first digit without underlying osseous abnormality identified on radiographs. Electronically signed by: Joshua Tony MD (11/14/2018 10:26 PM) [facility] DICTATED and SIGNED BY: JOSHUA TONY MD DATE: 11/14/182225 Course & Med Decision Making Course & Med Decision Making Evaluation of patient in ER showed 58-year-old female patient with history of frequent emergency room visits brought in by EMS after she did not have a ride to go home after dialysis and complaining of right great toe pain as a chronic pain. Patient had diverticulitis without abscess, fever, hypotension or confusion. X-ray did not show osteomyelitis. Patient states in ER and plan to discharge home with prescription of Keflex and Tylenol. She was advised to follow-up with on-call podiatric. Melisa Disclaimer Dragon Disclaimer This electronic medical record was generated, in whole or in part, using a voice recognition dictation system. Departure Departure Impression: Primary Impression: Diabetic ulcer of right great toe Additional Impression: Anxiety about health Disposition: 01 HOME, SELF-CARE Condition: STABLE Referrals: UNKNOWN PCP NAME (PCP) ROHITH MAC DPM Patient Instructions: Diabetes and Foot Care, Wound Care, [id number] Additional Instructions: Follow-up with coding compliance specialist physician regarding chronic diabetic foot ulcer in 2-3 days Follow-up with your primary care physician in 3-5 days Return to ER if not getting better Scripts Acetaminophen (Tylenol) 325 Mg Capsule 650 MG PO Q6-8HRS PRN for PAIN, #20 CAP Prov: KIMBERLY DONOHUE MD 11/14/18 Cephalexin (KEFLEX) 500 Mg Capsule 2 CAP PO Q12HR, #40 CAP Prov: KIMBERLY DONOHUE MD 11/14/18 Problem Qualifiers KIMBERLY DONOHUE MD Nov 14, 2018 21:12
--- NOTE | 2018-11-14 22:29 | RAD ---
Exam: Radiographs RHONDA wise right INDICATION: Great toe infection TECHNIQUE: Frontal view of the right foot with oblique and lateral views of the first digit. Comparisons: None FINDINGS: Soft tissue swelling of the first digit. Vascular calcifications are noted. No acute or healed fractures. Moderate osteoarthritic change at the first MTP joint. Otherwise, joint spaces are well-maintained. IMPRESSION: Soft tissue swelling of the first digit without underlying osseous abnormality identified on radiographs. Electronically signed by: Joshua Tellez MD (11/14/2018 10:26 PM) [facility]
== END 2018-11-14 21:26 | disposition home or self-care (01) ==
LOC: ER 20:28
DX: E11.621 Type 2 diabetes mellitus with foot ulcer (principal); L97.519 Non-pressure chronic ulcer of other part of right foot with unspecified severity; F41.9 Anxiety disorder, unspecified; E11.22 Type 2 diabetes mellitus with diabetic chronic kidney disease; I13.2 Hypertensive heart and chronic kidney disease with heart failure and with stage 5 chronic kidney disease, or end stage renal disease; N18.6 End stage renal disease; E11.40 Type 2 diabetes mellitus with diabetic neuropathy, unspecified; G89.29 Other chronic pain; J44.9 Chronic obstructive pulmonary disease, unspecified; Z99.2 Dependence on renal dialysis; Z90.710 Acquired absence of both cervix and uterus; Z88.5 Allergy status to narcotic agent
CPT/HCPCS: 73660; 82962; 99285

== ENCOUNTER 2018-11-26 11:50 | Inpatient (IN) | payer OTHER ==
[~2018-11-26] VITALS: Ht 157.5 cm; Wt 54.2 kg
[~2018-11-26 11:50] MED LIST changes: +ACET325C6 PO
[2018-11-26] MEDS ORDERED: VANCOMYCIN 1GM IVPB FOR OMNI 250 ML IV ONE (12:45)
[2018-11-26 13:15] LABS: BASO % 0 % (0-3); EOS % 0 % (0-3); LYMPH # 1.6 x10^3/uL (1.0-4.8); LYMPH % 11 % (24-48); MEAN CORPUSCULAR HEMOGLOBIN 31 pg (25-35); MEAN CORPUSCULAR HGB CONC 34 g/dL (31-37); MEAN CORPUSCULAR VOLUME 91 fL (79-100); MONO # 1.4 x10^3/uL (0.0-1.1); MONO % 10 % (0-9); NEUT # 11.5 x10^3/uL (1.8-7.7); NEUT % 79 % (31-73); PLATELET COUNT 422 x10^3/uL (140-400); RED BLOOD COUNT 2.24 x10^6/uL (3.50-5.40); RED CELL DISTRIBUTION WIDTH 19.1 % (11.5-14.5); WHITE BLOOD COUNT 14.5 x10^3/uL (4.0-11.0)
[2018-11-26 13:21] LABS: HEMATOCRIT 20.3 % (36.0-47.0); HEMOGLOBIN 6.8 g/dL (12.0-15.5)
[2018-11-26 13:23] LABS: PROTHROMBIN TIME PATIENT 13.9 SEC (11.7-14.0)
[2018-11-26 13:29] LABS: ALBUMIN 2.7 g/dL (3.4-5.0); ALBUMIN/GLOBULIN RATIO 0.6 (1.0-1.7); CALCIUM 9.3 mg/dL (8.5-10.1); CREATININE 11.8 mg/dL (0.6-1.0); TOTAL BILIRUBIN 0.3 mg/dL (0.2-1.0); TOTAL PROTEIN 7.1 g/dL (6.4-8.2)
[2018-11-26 13:37] LABS: POTASSIUM 6.6 mmol/L (3.5-5.1)
[2018-11-26] MEDS ORDERED: CALCIUM GLUCONATE 1,000 MG/10 ML VIAL. IVP ONE (14:00)
[2018-11-26] MEDS ORDERED: SODIUM BICARB ADULT 8.4% 50 MEQ/50 ML DISP.SYRIN. IV ONE (14:00)
[2018-11-26] MEDS ORDERED: INSULIN REGULAR 100 UNIT/ML 3ML VIAL. IV ONE (14:00)
[2018-11-26] MEDS ORDERED: DEXTROSE 50% 25 GM / 50ML DISP.SYRIN. IV ONE (14:00)
[2018-11-26] MEDS ORDERED: SODIUM POLYSTYRENE SULFON/SORB 15 GM/60 ML ORAL.SUSP PO ONE (14:00)
--- NOTE | 2018-11-26 14:26 | RAD ---
AP view of the chest. Comparison: Chest radiograph dated 10/26/2018. Indication: Shortness of air Findings: Soft tissues the head and neck obscure the right lung apex. Interval removal of dialysis catheter. Slightly low lung volume. No focal consolidation. Slight pulmonary vascular nystagmus. No pleural effusion. No obvious pneumothorax allowing for Limited evaluation the right apex. Unchanged cardiomegaly. Unchanged great vessels of the thorax. No acute osseous or normality. IMPRESSION: 1. No focal consolidation. 2. Unchanged cardiomegaly. Electronically signed by: Levi Green MD (11/26/2018 2:23 PM) [facility]
--- NOTE | 2018-11-26 14:28 | RAD ---
FOOT RIGHT 3V INDICATION: Foot swelling COMPARISON: None. FINDINGS: No displaced fracture or malalignment. No obvious osseous erosion. Joint spaces are maintained. Mild soft tissue swelling of foot. Dense vascular atherosclerotic calcifications. No radiopaque foreign body. IMPRESSION: 1. No displaced fracture or malalignment. No obvious osseous erosion. 2. Mild soft tissue swelling of the foot. Electronically signed by: Levi Green MD (11/26/2018 2:25 PM) [facility]
--- NOTE | 2018-11-26 15:28 | RAD ---
Left upper extremity arterial Doppler ultrasound HISTORY: Fistula. FINDINGS: All velocities are in centimeters per second. Left subclavian artery distally is 131, axillary artery is 85, proximal brachial artery is 216, mid brachial artery is 222, distal brachial artery is 197, proximal radial artery is 80 and distal radial artery is 87. Proximal ulnar artery is 60 and distal ulnar artery is 40. The fistula is patent. IMPRESSION: Patent fistula. Mildly elevated velocities in the left brachial artery. Electronically signed by: Sam Ron MD (11/26/2018 3:26 PM) [facility]
--- NOTE | 2018-11-26 15:38 | PHYS DOC ---
Past Medical History Past Medical History: Diabetes-Type II Additional Past Medical Histor: neuropathy, cataracts,CHRONIC PAIN,ESRD Past Surgical History: Hysterectomy, Other Additional Past Surgical Histo: PICC PLACEMENT Alcohol Use: None Drug Use: None Adult General Chief Complaint Chief Complaint: LOWER EXTREMITY SWELLING HPI HPI Patient is a 58 year old female was brought in by emesis with a chief complaint of right toe pain. This patient has had toe pain she tells me now for at least a couple of weeks if not longer she says she was seen here the last 2 times she w as here with that as the primary complaint but she said it was never addressed she denies fever she has her usual other symptoms of some chronic shortness of breath last dialysis I think she tells me was on Monday. No definite fever noted the main focus here is her right foot she thinks the swelling is increasing. Review of Systems Review of Systems Constitutional: Denies fever or chills [] Eyes: Denies change in visual acuity, redness, or eye pain [] HENT: Denies nasal congestion or sore throat [] Musculoskeletal Integument: Denies rash or skin lesions [] Neurologic: Denies headache, focal weakness or sensory changes [] All other systems were reviewed and found to be within normal limits, except as documented in this note. Current Medications Current Medications Current Medications Medications (Trade) Dose Ordered Sig/Clarence Start Time Stop Time Status Last Admin Dose Admin Calcium Gluconate (Calcium Gluconate) 1,000 mg 1X ONCE 11/26/18 14:00 11/26/18 14:01 DC 11/26/18 14:17 1,000 MG Dextrose (Dextrose 50%-Water Syringe) 25 gm 1X ONCE 11/26/18 14:00 11/26/18 14:01 DC 11/26/18 14:17 25 GM Insulin Human Regular (HumuLIN R VIAL) 10 unit 1X ONCE 11/26/18 14:00 11/26/18 14:01 DC 11/26/18 14:17 10 UNIT Levofloxacin (Levaquin) 500 mg 1X ONCE 11/26/18 12:00 11/26/18 12:02 DC 11/26/18 13:17 500 MG Sodium Polystyrene Sulfonate (Kayexalate) 30 gm 1X ONCE 11/26/18 14:00 11/26/18 14:01 DC 11/26/18 14:17 30 GM Sodium Bicarbonate (Sodium Bicarb Adult 8.4% Syr) 50 meq 1X ONCE 11/26/18 14:00 11/26/18 14:01 DC 11/26/18 14:17 50 MEQ Vancomycin HCl 250 ml @ 250 mls/hr 1X ONCE 11/26/18 12:45 11/26/18 13:44 DC 11/26/18 13:41 250 MLS/HR Vancomycin HCl (Vanco Per Pharmacy) 1 each PRN DAILY PRN 11/26/18 12:00 UNV Allergies Allergies Allergies Coded Allergies Type Severity Reaction Last Updated Verified morphine Allergy Intermediate Itching 03/27/18 Yes Physical Exam Physical Exam Constitutional: Well developed, cachectic and chronically ill-appearing HENT: Normocephalic, atraumatic, bilateral external ears normal, oropharynx moist, no oral exudates, nose normal. [] Eyes: PERRLA, EOMI, conjunctiva normal, no discharge. [] Neck: Normal range of motion, no tenderness, supple, no stridor. [] Cardiovascular:Heart rate regular rhythm, 2/6 systolic murmur noted Lungs & Thorax: Decreased breath sounds at left base Abdomen: Bowel sounds normal, soft, no tenderness, no masses, no pulsatile masses. [] Skin: Warm, dry, no erythema, no rash. [] Back: No tenderness, no CVA tenderness. [] Extremities: Right foot there is necrosis of the second toe as well as the first toe part of the first toe. I do feel that I palpate faintly a dorsalis pedis pulse I did order an ultrasound to further evaluate given the history of peripheral arterial disease that is currently pending. Of note these patient's symptoms are subacute she's noticed this toe problem for least a couple of weeks. I discussed with Dr. Hoyos regarding the pending arterial ultrasound Neurologic: Alert and oriented X 3, normal motor function, normal sensory function, no focal deficits noted. [] Psychologic: Limited insight mood is anxious Current Patient Data Vital Signs Vital Signs Date Time Temp Pulse Resp B/P (MAP) Pulse Ox O2 Delivery O2 Flow Rate FiO2 11/26/18 14:22 62 15 102/48 (66) 97 Room Air 11/26/18 11:50 97.4 97.4 Lab Values Laboratory Tests Test 11/26/18 13:03 White Blood Count 14.5 x10^3/uL (4.0-11.0) H Red Blood Count 2.24 x10^6/uL (3.50-5.40) L Hemoglobin 6.8 g/dL (12.0-15.5) *L Hematocrit 20.3 % (36.0-47.0) *L Mean Corpuscular Volume 91 fL (79-100) Mean Corpuscular Hemoglobin 31 pg (25-35) Mean Corpuscular Hemoglobin Concent 34 g/dL (31-37) Red Cell Distribution Width 19.1 % (11.5-14.5) H Platelet Count 422 x10^3/uL (140-400) H Neutrophils (%) (Auto) 79 % (31-73) H Lymphocytes (%) (Auto) 11 % (24-48) L Monocytes (%) (Auto) 10 % (0-9) H Eosinophils (%) (Auto) 0 % (0-3) Basophils (%) (Auto) 0 % (0-3) Neutrophils # (Auto) 11.5 x10^3/uL (1.8-7.7) H Lymphocytes # (Auto) 1.6 x10^3/uL (1.0-4.8) Monocytes # (Auto) 1.4 x10^3/uL (0.0-1.1) H Eosinophils # (Auto) 0.0 x10^3/uL (0.0-0.7) Basophils # (Auto) 0.0 x10^3/uL (0.0-0.2) Prothrombin Time 13.9 SEC (11.7-14.0) Prothrombin Time INR 1.1 (0.8-1.1) Sodium Level 140 mmol/L (136-145) Potassium Level 6.6 mmol/L (3.5-5.1) *H Chloride Level 99 mmol/L (98-107) Carbon Dioxide Level 22 mmol/L (21-32) Anion Gap 19 (6-14) H Blood Urea Nitrogen 102 mg/dL (7-20) H Creatinine 11.8 mg/dL (0.6-1.0) H Estimated GFR (Cockcroft-Gault) 4.0 BUN/Creatinine Ratio 9 (6-20) Glucose Level 81 mg/dL (70-99) Lactic Acid Level 0.6 mmol/L (0.4-2.0) Calcium Level 9.3 mg/dL (8.5-10.1) Total Bilirubin 0.3 mg/dL (0.2-1.0) Aspartate Amino Transferase (AST) 44 U/L (15-37) H Alanine Aminotransferase (ALT) 44 U/L (14-59) Alkaline Phosphatase 79 U/L (46-116) Total Protein 7.1 g/dL (6.4-8.2) Albumin 2.7 g/dL (3.4-5.0) L Albumin/Globulin Ratio 0.6 (1.0-1.7) L Laboratory Tests 11/26/18 13:03 Laboratory Tests 11/26/18 13:03 EKG EKG EKG shows a normal sinus rhythm with rate is 63 there are T wave inversions noted laterally overall compared to the most recent EKG in our system no obvious acute change compared to November 12, 2018 it is possible that the T waves are just very slightly peaked this is questionable however[] Radiology/Procedures Radiology/Procedures NDINGS: All velocities are in centimeters per second. Left subclavian artery distally is 131, axillary artery is 85, proximal brachial artery is 216, mid brachial artery is 222, distal brachial artery is 197, proximal radial artery is 80 and distal radial artery is 87. Proximal ulnar artery is 60 and distal ulnar artery is 40. The fistula is patent. IMPRESSION: Patent fistula. Mildly elevated velocities in the left brachial artery. Electronically signed by: Sam Ron MD (11/26/2018 3:26 PM) [facility] DICTATED and SIGNED BY: SAM RON MD DATE: 11/26/18 1526 [] PARISON: None. FINDINGS: No displaced fracture or malalignment. No obvious osseous erosion. Joint spaces are maintained. Mild soft tissue swelling of foot. Dense vascular atherosclerotic calcifications. No radiopaque foreign body. IMPRESSION: 1. No displaced fracture or malalignment. No obvious osseous erosion. 2. Mild soft tissue swelling of the foot. Electronically signed by: Levi Green MD (11/26/2018 2:25 PM) [facility] DICTATED and SIGNED BY: LEVI GREEN MD DATE: 11/26/18 7569 Impressions: IMPRESSION: 1. No focal consolidation. 2. Unchanged cardiomegaly. Electronically signed by: Levi Green MD (11/26/2018 2:23 PM) [facility] DICTATED and SIGNED BY: LEVI GREEN MD DATE: 11/26/18 1423 Course & Med Decision Making Course & Med Decision Making Pertinent Labs and Imaging studies reviewed. (See chart for details) []This is a comp get a 58-year-old female with history of noncompliance end- stage renal disease peripheral arterial disease who is presenting with right toe necrosis. Noted the leukocytosis noted the anemia anemia has been an issue for her in the past I did consent her for 1 unit of packed red blood cells. We did give some IV vancomycin in the emergency room likely lactic acid is within normal limits as is the blood pressure. Patient be admitted to the service of the hospitalist for further evaluation and management of this necrosis including vascular evaluation as well. Initially I was somewhat concerned about a decreased thrill of the left upper extremity however ultrasound imaging to confirm patency of that and nursing staff did tell me they could feel a thrill and a very small location near the AC FOSSA Dragon Disclaimer Dragon Disclaimer This electronic medical record was generated, in whole or in part, using a voice recognition dictation system. Departure Departure Impression: Primary Impression: CKD (chronic kidney disease) Additional Impression: Gangrene of toe of right foot Disposition: ADMITTED INPATIENT Admitting Physician: SOFI Condition: STABLE Referrals: UNKNOWN PCP NAME (PCP) Problem Qualifiers KIMBERLY GA MD Nov 26, 2018 15:38
[2018-11-26] MEDS: VANCOMYCIN PER PHARMACY MC PRN (16:45)
--- NOTE | 2018-11-26 16:46 | NUR ---
Pharmacy Vancomycin Dosing Note S:Consulted to monitor and dose vancomycin started 11/26/18. O:OTTONIEL SMITH is a 58 year old F with diabetic foot wound/right toe necrosis. Height: 5 feet, 2 inches Weight: 45.467462 kg [place] Body Weight: 50.10 Adjusted Body Weight: 48.22 Dosing Weight: Actual Other Antibiotics: None at this time LABS: Last BUN: 102 Last Creatinine: 11.8 Creatinine Clearance: on HD Last WBC: 14.5 Last Procalcitonin: NA Tmax (past 24 hours): 97.4 Microbiology: Pending I/O: Not yet documented Drug Levels: Last dose given 11/26/18 at 1341 Vancomycin Dosing: Loading Dose: 1000 mg x1 Dosing Weight: Actual Target Trough: 10-20 A: Based on: Patient's renal function, HD schedule, PMH, and severity of suspected infection P: 1. A Vancomycin 1000 mg IV One Time dose given today 2. Follow up Random level on 11/27/18 at 0500 3. Pharmacy will continue to monitor, follow and adjust therapy as needed. ARNOLDO CASTELLANOS, [facility], 11/26/18 2294
[2018-11-26] MEDS ORDERED: HYDROcodone/APAP 5/325MG 1 TAB TABLET PO PRN (17:00)
[2018-11-26] MEDS ORDERED: PROCHLORPERAZINE 5 MG TABLET. PO PRN (17:00)
[2018-11-26] MEDS ORDERED: ALBUTEROL SULFATE 2.5 MG/3 ML NEBU. INH PRN (17:00)
[2018-11-26] MEDS ORDERED: ALPRAZolam 0.5 MG TABLET PO PRN (17:00)
--- NOTE | 2018-11-26 17:00 | PDOC1 ---
History and Physical Date of Admission Date of Admission DATE: 11/26/18 TIME: 16:55 Identification/Chief Complaint Chief Complaint Right toe pain Source Source: Chart review, Patient History of Present Illness History of Present Illness Ms. Salazar, is a 57 year old F w/ PMHx ESRD on HD M/W/F presents via EMS with reports of acute right toe pain. This patient has had toe pain she tells me now for at least a couple of weeks. No definite fever noted the main focus here is her right foot she thinks the swelling is increasing. Of note, her potassium was 6.6 in the ED, BUN 102 and Hb 6.8. She just left [facility] on Monday AMA, was planning a RLE angiogram tomorrow. She does not recall being at [facility]. Her daughter, Cristóbal does recall this. Past Medical History Cardiovascular: CHF, HTN, Hyperlipidemia, Other Pulmonary: Asthma, COPD CENTRAL NERVOUS SYSTEM: Periperal neuropathy GI: No pertinent hx Heme/Onc: No pertinent hx Hepatobiliary: No pertinent hx Psych: Anxiety Rheumatologic: Fibromyalgia Infectious disease: No pertinent hx Renal/: Chronic renal failure Endocrine: Diabetes, Hypothyroidism, Hyperparathyroidism Past Surgical History Past Surgical History: Other Family History Family History: Other Social History ALCOHOL: none Drugs: Cocaine, Marijuana Current Problem List Problem List Problems Medical Problems: (1) CKD (chronic kidney disease) Status: Chronic (2) Gangrene of toe of right foot Status: Acute Current Medications Current Medications Current Medications Vancomycin HCl (Vanco Per Pharmacy) 1 each PRN DAILY PRN MC SEE COMMENTS Last administered on 11/26/18at 16:45; Start 11/26/18 at 12:00 Levofloxacin (Levaquin) 500 mg 1X ONCE PO Last administered on 11/26/18at 13:17; Start 11/26/18 at 12:00; Stop 11/26/18 at 12:02; Status DC Vancomycin HCl 250 ml @ 250 mls/hr 1X ONCE IV Last administered on 11/26/18at 13:41; Start 11/26/18 at 12:45; Stop 11/26/18 at 13:44; Status DC Calcium Gluconate (Calcium Gluconate) 1,000 mg 1X ONCE IVP Last administered on 11/26/18at 14:17; Start 11/26/18 at 14:00; Stop 11/26/18 at 14:01; Status DC Sodium Bicarbonate (Sodium Bicarb Adult 8.4% Syr) 50 meq 1X ONCE IV Last administered on 11/26/18at 14:17; Start 11/26/18 at 14:00; Stop 11/26/18 at 14:01; Status DC Dextrose (Dextrose 50%-Water Syringe) 25 gm 1X ONCE IV Last administered on 11/26/18at 14:17; Start 11/26/18 at 14:00; Stop 11/26/18 at 14:01; Status DC Insulin Human Regular (HumuLIN R VIAL) 10 unit 1X ONCE IV Last administered on 11/26/18at 14:17; Start 11/26/18 at 14:00; Stop 11/26/18 at 14:01; Status DC Sodium Polystyrene Sulfonate (Kayexalate) 30 gm 1X ONCE PO Last administered on 11/26/18at 14:17; Start 11/26/18 at 14:00; Stop 11/26/18 at 14:01; Status DC Vancomycin HCl (Vancomycin Random Level) 1 each 1X ONCE MC ; Start 11/27/18 at 05:00; Stop 11/27/18 at 05:01 Albuterol Sulfate (Ventolin Neb Soln) 2.5 mg BID PRN INH SHORTNESS OF BREATH; Start 11/26/18 at 17:00; Status UNV Alprazolam (Xanax) 0.5 mg PRN TID PRN PO ANXIETY / AGITATION; Start 11/26/18 at 17:00; Status UNV Amlodipine Besylate (Norvasc) 10 mg DAILY PO ; Start 11/27/18 at 09:00; Status UNV Atorvastatin Calcium (Lipitor) 40 mg HS PO ; Start 11/26/18 at 21:00; Status UNV Carvedilol (Coreg) 6.25 mg BIDWMEALS PO ; Start 11/26/18 at 17:00; Status UNV Clonidine HCl (Catapres Tts-2) 1 patch WEEKLY TD ; Start 12/03/18 at 09:00; Status UNV Acetaminophen/ Hydrocodone Bitart (Lortab 5/325) 1 tab PRN Q6HRS PRN PO PAIN; Start 11/26/18 at 17:00; Status UNV Latanoprost (Xalatan) 1 drop HS OU ; Start 11/26/18 at 21:00; Status UNV Levothyroxine Sodium (Synthroid) 50 mcg DAILY PO ; Start 11/27/18 at 09:00; Status UNV Lisinopril (Prinivil) 20 mg DAILY PO ; Start 11/27/18 at 09:00; Status UNV Prochlorperazine Maleate (Compazine) 5 mg PRN TID PRN PO NAUSEA; Start 11/26/18 at 17:00; Status UNV Sertraline HCl (Zoloft) 50 mg DAILY PO ; Start 11/27/18 at 09:00; Status UNV Non-Formulary Medication (Lipase/Protease/ Amylase (Shante Knowles 6,000 Units Capsule)) 1 tab TID PO ; Start 11/26/18 at 21:00; Status UNV Non-Formulary Medication ([Pantoprazole] ) 40 mg DAILYAC PO ; Start 11/27/18 at 07:30; Status UNV Fentanyl Citrate (Fentanyl 2ml Vial) 50 mcg PRN Q2HR PRN IV PAIN; Start 11/26/18 at 17:00; Status UNV Active Scripts Active Tylenol (Acetaminophen) 325 Mg Capsule 650 Mg PO Q6-8HRS PRN Keflex (Cephalexin) 500 Mg Capsule 2 Cap PO Q12HR Nolan 5-325 Tablet (Acetaminophen/Hydrocodone Bitart) 1 Each Tablet 1 Tab PO BID 5 Days Amox Tr-K Clv 500-125 Mg Tab (Amoxicillin/Potassium Clav) 1 Each Tablet 1 Tab PO DAILY 7 Days Nolan 5-325 Tablet (Acetaminophen/Hydrocodone Bitart) 1 Each Tablet 1 Tab PO PRN Q6HRS PRN Alprazolam 0.5 Mg Tablet 0.5 Mg PO PRN TID PRN MDD 1 Zantac (Ranitidine Hcl) 300 Mg Tablet 1 Tab PO QHS Compazine (Prochlorperazine Maleate) 5 Mg Tablet 5 Mg PO PRN TID PRN 10 Days [Pantoprazole] 40 MG Tablet. 40 Mg PO DAILYAC 30 Days Reported Zoloft (Sertraline Hcl) 50 Mg Tablet 50 Mg PO DAILY Lisinopril 20 Mg Tablet 20 Mg PO DAILY Coreg (Carvedilol) 6.25 Mg Tablet 6.25 Mg PO BIDWMEALS Shante Knowles 6,000 Units Capsule (Lipase/Protease/Amylase) 1 Each Capsule.dr 1 Tab PO TID Proair Hfa (Albuterol Sulfate) 8.5 Gm Hfa.aer.ad 2 Puff INH BID PRN Levothyroxine Sodium 50 Mcg Tablet 1 Tab PO DAILY Clonidine Tts-2 (Clonidine) 1 Each Patch.tdwk 1 Patch TD WEEKLY Amlodipine Besylate 5 Mg Tablet 10 Mg PO DAILY Atorvastatin Calcium 40 Mg Tablet 40 Mg PO HS Latanoprost 2.5 Ml Drops 1 Drop EACHEYE HS Allergies Allergies: Coded Allergies: morphine (Verified Allergy, Intermediate, Itching, 03/27/18) ROS General: YES: Fatigue, Malaise; No: Chills, Night Sweats, Appetite, Other PSYCHOLOGICAL ROS: YES: Anxiety, Concentration difficultie, Hostility, Irritab lity, Memory difficulties, Mood Swings; No: Behavioral Disorder, Decreased libido, Depression, Disorientation, Hallucinations, Obsessive thoughts, Physical abuse, Sexual abuse, Sleep disturbances, Suicidal ideation, Other Eyes: No Blurry vision, No Decreased vision, No Double vision, No Dry eyes, No Excessive tearing, No Eye Pain, No Itchy Eyes, No Loss of vision, No Photophobia, No Scotomata, No Uses contacts, No Uses glasses, No Other HEENT: No: Heacaches, Visual Changes, Hearing change, Nasal congestion, Nasal discharge, Oral lesions, Sinus pain, Sore Throat, Epistaxis, Sneezing, Snoring, Tinnitus, Vertigo, Vocal changes, Other ALLERGY AND IMMUNOLOGY: No: Hives, Insect Bite Sensitivity, Itchy/Watery Eyes, Nasal Congestion, Post Nasal Drip, Seasonal Allergies, Other Hematological and Lymphatic: No: Bleeding Problems, Blood Clots, Blood Transfusions, Brusing, Night Sweats, Pallor, Swollen Lymph Nodes, Other ENDOCRINE: No: Breast Changes, Galactorrhea, Hair Pattern Changes, Hot Flashes, Malaise/lethargy, Mood Swings, Palpitations, Polydipsia/polyuria, Skin Changes, Temperature Intolerance, Unexpected Weight Changes, Other Breast: No New/Changing Breast Lumps, No Nipple changes, No Nipple discharge, No Other Respiratory: No: Cough, Hemoptysis, Orthopnea, Pleuritic Pain, Shortness of breath, SOB with excertion, Sputum Changes, Stridor, Tachypnea, Wheezing, Other Cardiovascular: yes Edema; No Chest Pain, No Palpitations, No Orthopnea, No Paroxysmal Noc. Dyspnea, No Lt Headedness, No Other Gastrointestinal: Yes Nausea; No Vomiting, No Abdominal Pain, No Diarrhea, No Constipation, No Melena, No Hematochezia, No Other Genitourinary: No Dysuria, No Frequency, No Incontinence, No Hematuria, No Retention, No Discharge, No Urgency, No Pain, No Flank Pain, No Other, No , No , No , No , No , No , No Musculoskeletal: Yes Gait Disturbance, Yes Joint Pain, Yes Joint Stiffness; No Joint Swelling, No Muscle Pain, No Muscular Weakness, No Pain In:, No Swelling In:, No Other Neurological: No Behavorial Changes, No Bowel/Bladder ControlChng, No Confusion, No Dizziness, No Gait Disturbance, No Headaches, No Impaired Coord/balance, No Memory Loss, No Numbness/Tingling, No Seizures, No Speech Problems, No Tremors, No Visual Changes, No Weakness, No Other Skin: Yes Dry Skin, Yes Rash, Yes Skin Lesion Changes; No Eczema, No Hair Changes, No Lumps, No Mole Changes, No Mottling, No Nail Changes, No Pruritus, No Other, No Acne Physical Exam General: Alert, mild distress HEENT: Atraumatic, PERRLA, EOMI, Mucous membr. moist/pink Lungs: Clear to auscultation, Normal air movement Heart: S1S2, RRR Abdomen: Normal bowel sounds, Soft, No tenderness, No hepatosplenomegaly, No masses Extremities: No cyanosis, Other (Left 5th toe amputation site with sutures intact, open. Right 2nd toe black, ulcer on 5th toe and great toe. Right calf edema) Skin: Other (Multiple calciphylaxis lesions) Neuro: Normal speech, Strength at 5/5 X4 ext, Normal tone, Cranial nerves 3-12 NL, Reflexes 2+ Vitals Vitals Vital Signs Date Time Temp Pulse Resp B/P (MAP) Pulse Ox O2 Delivery O2 Flow Rate FiO2 11/26/18 14:52 64 17 157/76 (103) 96 Room Air 11/26/18 11:50 97.4 97.4 Labs Labs Laboratory Tests Test 11/26/18 13:03 White Blood Count 14.5 x10^3/uL (4.0-11.0) Red Blood Count 2.24 x10^6/uL (3.50-5.40) Hemoglobin 6.8 g/dL (12.0-15.5) Hematocrit 20.3 % (36.0-47.0) Mean Corpuscular Volume 91 fL (79-100) Mean Corpuscular Hemoglobin 31 pg (25-35) Mean Corpuscular Hemoglobin Concent 34 g/dL (31-37) Red Cell Distribution Width 19.1 % (11.5-14.5) Platelet Count 422 x10^3/uL (140-400) Neutrophils (%) (Auto) 79 % (31-73) Lymphocytes (%) (Auto) 11 % (24-48) Monocytes (%) (Auto) 10 % (0-9) Eosinophils (%) (Auto) 0 % (0-3) Basophils (%) (Auto) 0 % (0-3) Neutrophils # (Auto) 11.5 x10^3/uL (1.8-7.7) Lymphocytes # (Auto) 1.6 x10^3/uL (1.0-4.8) Monocytes # (Auto) 1.4 x10^3/uL (0.0-1.1) Eosinophils # (Auto) 0.0 x10^3/uL (0.0-0.7) Basophils # (Auto) 0.0 x10^3/uL (0.0-0.2) Prothrombin Time 13.9 SEC (11.7-14.0) Prothromb Time International Ratio 1.1 (0.8-1.1) Sodium Level 140 mmol/L (136-145) Potassium Level 6.6 mmol/L (3.5-5.1) Chloride Level 99 mmol/L (98-107) Carbon Dioxide Level 22 mmol/L (21-32) Anion Gap 19 (6-14) Blood Urea Nitrogen 102 mg/dL (7-20) Creatinine 11.8 mg/dL (0.6-1.0) Estimated GFR (Cockcroft-Gault) 4.0 BUN/Creatinine Ratio 9 (6-20) Glucose Level 81 mg/dL (70-99) Lactic Acid Level 0.6 mmol/L (0.4-2.0) Calcium Level 9.3 mg/dL (8.5-10.1) Total Bilirubin 0.3 mg/dL (0.2-1.0) Aspartate Amino Transf (AST/SGOT) 44 U/L (15-37) Alanine Aminotransferase (ALT/SGPT) 44 U/L (14-59) Alkaline Phosphatase 79 U/L (46-116) Total Protein 7.1 g/dL (6.4-8.2) Albumin 2.7 g/dL (3.4-5.0) Albumin/Globulin Ratio 0.6 (1.0-1.7) Laboratory Tests Test 11/26/18 13:03 White Blood Count 14.5 x10^3/uL (4.0-11.0) Red Blood Count 2.24 x10^6/uL (3.50-5.40) Hemoglobin 6.8 g/dL (12.0-15.5) Hematocrit 20.3 % (36.0-47.0) Mean Corpuscular Volume 91 fL (79-100) Mean Corpuscular Hemoglobin 31 pg (25-35) Mean Corpuscular Hemoglobin Concent 34 g/dL (31-37) Red Cell Distribution Width 19.1 % (11.5-14.5) Platelet Count 422 x10^3/uL (140-400) Neutrophils (%) (Auto) 79 % (31-73) Lymphocytes (%) (Auto) 11 % (24-48) Monocytes (%) (Auto) 10 % (0-9) Eosinophils (%) (Auto) 0 % (0-3) Basophils (%) (Auto) 0 % (0-3) Neutrophils # (Auto) 11.5 x10^3/uL (1.8-7.7) Lymphocytes # (Auto) 1.6 x10^3/uL (1.0-4.8) Monocytes # (Auto) 1.4 x10^3/uL (0.0-1.1) Eosinophils # (Auto) 0.0 x10^3/uL (0.0-0.7) Basophils # (Auto) 0.0 x10^3/uL (0.0-0.2) Prothrombin Time 13.9 SEC (11.7-14.0) Prothromb Time International Ratio 1.1 (0.8-1.1) Sodium Level 140 mmol/L (136-145) Potassium Level 6.6 mmol/L (3.5-5.1) Chloride Level 99 mmol/L (98-107) Carbon Dioxide Level 22 mmol/L (21-32) Anion Gap 19 (6-14) Blood Urea Nitrogen 102 mg/dL (7-20) Creatinine 11.8 mg/dL (0.6-1.0) Estimated GFR (Cockcroft-Gault) 4.0 BUN/Creatinine Ratio 9 (6-20) Glucose Level 81 mg/dL (70-99) Lactic Acid Level 0.6 mmol/L (0.4-2.0) Calcium Level 9.3 mg/dL (8.5-10.1) Total Bilirubin 0.3 mg/dL (0.2-1.0) Aspartate Amino Transf (AST/SGOT) 44 U/L (15-37) Alanine Aminotransferase (ALT/SGPT) 44 U/L (14-59) Alkaline Phosphatase 79 U/L (46-116) Total Protein 7.1 g/dL (6.4-8.2) Albumin 2.7 g/dL (3.4-5.0) Albumin/Globulin Ratio 0.6 (1.0-1.7) Images Images Right foot XR - 1. No displaced fracture or malalignment. No obvious osseous erosion. 2. Mild soft tissue swelling of the foot. VTE Prophylaxis Ordered VTE Prophylaxis Devices: Yes VTE Pharmacological Prophylaxi: Yes Assessment/Plan Assessment/Plan A/P: Right foot pain - left 2nd toe appears gangrenous. She was scheduled for vascular runoff tomorrow at [facility] but left AMA. I have consulted vascular surgery. Her overall prognosis is poor given her vascular disease and compliance difficulties Hyperkalemia - 6.6, given kayexelate, albuterol, insulin, D5. Will repeat level, consult nephrology for dialysi HTN urgency - coreg and amlodipine ESRD - need dialysis regularly outpatient. Consulted nephrology. BUN 102, she should be dialyzed soon Acute Anemia - of chronic renal disease, will f/u outpatient CBC at dialysis, symptomatic. Ok to transfuse with dialysis. Anasarca - f/u on possible esophageal mass biopsy Hypothyroidism - on replacement therapy Left 5th digit amputation - site stilll open, needs local wound care Dyslipidemia on meds PAD - Diffuse moderate to advanced atherosclerotic plaque in the lower activity arteries with moderate stenosis in the mid SFA, mild to moderate stenosis in the popliteal artery. Nonvisualization of flow in the distal [employer] suggests occlusion, age indeterminate. FEN - Renal diet, NPO after midnight PPX - heparin FULL CODE Dispo - inpatient for life-threatening hyperkalemia and likely gangrene of right 2nd toe FELI SHAH MD Nov 26, 2018 17:00
--- NOTE | 2018-11-26 17:02 | EKG ---
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
--- NOTE | 2018-11-26 17:02 | PDOC ---
Provider Note Provider Note (please see full dictation) 58 yo noncompliant female with ESRD on dialysis presents with worsening pain in her feet. She left [facility] on Monday before dialysis. She was scheduled to have angiogram there tomorrow. She now has severe hyperkalemia (6.6). Will plan to arrange angiogram after she gets dialysis. She has very poor prognosis of limb salvage due to her ESRD and peripheral artery disease in addition to her poor compliance. BETZY BOOTH MD Nov 26, 2018 17:02
[2018-11-26] MEDS: CARVEDILOL 6.25 MG TABLET. PO SCH (17:18)
[2018-11-26] MEDS: fentaNYL PF VIAL 100 MCG/2 ML VIAL IV PRN ×4 (17:19→23:37)
--- NOTE | 2018-11-26 17:24 | NUR ---
FENTANYL GIVEN PER PRN ORDERS. VIAL WAS DISCOVERED NOT SCANNED AFTER DISPOSED IN [facility]. GIVEN IN THE PRESENCE OF MAGALY LANDEROS AND MONA JIMENEZ.
[2018-11-26 17:38] VITALS: BP 132/58
[2018-11-26 19:50] VITALS: BP 132/59
[2018-11-26] MEDS ORDERED: ONDANSETRON PF 4 MG/2 ML VIAL. IV PRN (20:00)
[2018-11-26] MEDS ORDERED: ATORVASTATIN CALCIUM 40 MG TABLET. PO SCH (21:00)
[2018-11-26] MEDS ORDERED: AMYLASE PO SCH (21:00)
[2018-11-26] MEDS ORDERED: LIPASE PO SCH (21:00)
[2018-11-26] MEDS ORDERED: LATANOPROST 0.005% OPHTH SOLUTION 2.5ML BOTTLE. OU SCH (21:00)
[2018-11-26] MEDS ORDERED: PROTEASE PO SCH (21:00)
[2018-11-26] MEDS: HEPARIN for SUB-Q USE 5,000 UNIT/ML VIAL. SQ SCH (21:36)
[2018-11-26 23:53] VITALS: BP 122/42
[2018-11-26 23:53] LABS: HEMATOCRIT 24.2 % (36.0-47.0); HEMOGLOBIN 8.4 g/dL (12.0-15.5)
--- NOTE | 2018-11-27 00:43 | CONS ---
DATE OF CONSULTATION: 11/26/2018 CHIEF COMPLAINT: Bilateral toe pain. HISTORY OF PRESENT ILLNESS: The patient is a 58-year-old female with diabetes, chronic kidney disease, on dialysis, and severe peripheral arterial disease, who presented to the Emergency Room at [place] today with severe bilateral foot pain. She was in the [facility] until Monday, at which time she left against medical advice prior to having dialysis. She was scheduled to have a repeat angiogram and possible intervention by Dr. Agarwal tomorrow. After leaving [facility] against medical advice, she now presented to the Emergency Room today. Apparently, she did not go in for dialysis this morning as well. She reports severe leg pain. She otherwise does not give any reasons for leading other than she did not like her care. PAST MEDICAL HISTORY: 1. Chronic kidney disease, on dialysis. 2. Diabetes. 3. Cardiomyopathy. 4. Hypertension. 5. Peripheral arterial disease. PAST SURGICAL HISTORY: 1. Hysterectomy. 2. Tonsillectomy. 3. Cholecystectomy. 4. Left fifth toe amputation. 5. Previous lower extremity percutaneous angioplasty. 6. Left upper arm arteriovenous shunt placement. MEDICATIONS: Please refer to medication administration record. She was previously on albuterol inhaler, amlodipine, atorvastatin, clonidine, Creon, gabapentin, and latanoprost eye drops. ALLERGIES: No known drug allergies. SOCIAL HISTORY: She denies any smoking or alcohol use. FAMILY HISTORY: Noncontributory. REVIEW OF SYSTEMS: She reports significant bilateral foot pain as detailed above. She denies any chest pain or shortness of breath. She denies any nausea, vomiting, diarrhea, constipation, hematochezia, or melena. PHYSICAL EXAMINATION: GENERAL: This is a chronically ill-appearing female, in obvious discomfort. NECK: Supple, no lymphadenopathy. CARDIOVASCULAR: Regular rhythm. ABDOMEN: Soft, nontender, and nondistended. No palpable masses. EXTREMITIES: She has a left upper arm arteriovenous shunt. She has well-healed surgical incision. She has a palpable thrill within her graft. She has dry early gangrenous changes to multiple digits on her right foot as well as some dry eschar over the amputation site over her previous left fifth toe. No erythema or fluctuance at this time. LABORATORY DATA: Significant for hemoglobin of 6.8 and potassium of 6.6. IMPRESSION: 1. Severe peripheral arterial disease with early gangrenous changes to toes on the right foot and eschar on the left foot. 2. Hyperkalemia. 3. Chronic kidney disease, on dialysis. 4. Diabetes. 5. Cardiomyopathy. 6. Hypertension. 7. Chronic obstructive pulmonary disease. RECOMMENDATIONS: 1. I discussed the importance of compliance with medical care and working with her physicians to optimize her care. 2. She will obviously need dialysis before any intervention is performed. 3. We will plan repeat angiogram to evaluate the arterial flow to both feet. She has had recent interventions as recently as early September. It is unclear whether she will have options for further revascularization. She has very poor prognosis of salvage of her feet due to the combination of her medical comorbidities and her sporadic compliance. BETZY BOOTH MD DR: BEATRIS/franny JOB#: [id number] / [id number] FELI Bacon MD ,
[2018-11-27] MEDS: fentaNYL PF VIAL 100 MCG/2 ML VIAL IV PRN ×4 (01:45→08:18)
[2018-11-27 03:45] VITALS: BP 137/51
[2018-11-27] MEDS ORDERED: VANCOMYCIN RANDOM LEVEL. MC ONE (05:00)
[2018-11-27] MEDS ORDERED: LEVOTHYROXINE 50 MCG TABLET PO SCH (06:00)
[2018-11-27 07:00] VITALS: BP 149/60
[2018-11-27] MEDS ORDERED: PANTOPRAZOLE 40 MG TABLET.DR. PO SCH (07:30)
[2018-11-27] MEDS: CARVEDILOL 6.25 MG TABLET. PO SCH ×2 (08:19→17:00)
--- NOTE | 2018-11-27 08:22 | RAD ---
LEFT LOWER EXTREMITY VENOUS AND ARTERIAL ULTRASOUND WITH DOPPLER 11/26/2018 4:54 PM Clinical Information: Swelling. Comparison: None. Technique: Multiple grayscale, color Doppler, and spectral Doppler sonographic images of the lower extremity arterial and venous structures were obtained. Findings: Venous: The greater saphenous vein is patent. The left common femoral, femoral, and popliteal veins exhibit normal compression, respiratory phasicity, and augmentation. No intraluminal thrombi are identified. Color Doppler flow is demonstrated in the left posterior tibial and peroneal veins. Arterial: Monophasic waveforms are identified throughout the left lower extremity with moderate degree of calcified atheromatous plaque. Common femoral artery: 160 cm/s Profunda artery: 224 cm/s Superficial femoral artery, proximal: 104 cm/s Superficial femoral artery, mid: 157 cm/s Superficial femoral artery, distal: 122 cm/s Popliteal artery: 92 cm/s Posterior tibial artery: 94 cm/s distally with the proximal posterior tibial artery not visualized. Anterior tibial artery: 86 cm/s Peroneal artery: 81 cm/s Dorsalis pedis artery: Not visualized. Impression: 1. No evidence of deep venous thrombosis. 2. Left lower extremity peripheral arterial vascular disease is identified with nonvisualization of the dorsalis pedis artery. Proximal posterior tibial artery is not visualized however distal posterior tibial artery demonstrates monophasic waveforms. Electronically signed by: Neris Luo MD (11/27/2018 8:19 AM) [facility]
[2018-11-27] MEDS: HEPARIN for SUB-Q USE 5,000 UNIT/ML VIAL. SQ SCH (08:33)
[2018-11-27] MEDS ORDERED: LISINOPRIL 20 MG TABLET PO SCH (09:00)
[2018-11-27] MEDS ORDERED: amLODIPine BESYLATE 5 MG TABLET PO SCH (09:00)
[2018-11-27] MEDS ORDERED: SERTRALINE 50 MG TABLET. PO SCH (09:00)
[2018-11-27] MEDS ORDERED: PSYLLIUM HUSK (SUGAR FREE) 1 PKT PACKET PO SCH (09:00)
[2018-11-27] MEDS ORDERED: POLYETHYLENE GLYCOL 3350 17 GM PACKET. PO SCH (09:00)
[2018-11-27] MEDS ORDERED: cloNIDine TTS-2 1 PATCH PATCH TD SCH (09:00)
[2018-11-27 09:44] LABS: BASO # 0.1 x10^3/uL (0.0-0.2); BASO % 1 % (0-3); EOS # 0.1 x10^3/uL (0.0-0.7); EOS % 1 % (0-3); HEMATOCRIT 26.8 % (36.0-47.0); HEMOGLOBIN 9.1 g/dL (12.0-15.5); LYMPH # 2.1 x10^3/uL (1.0-4.8); LYMPH % 18 % (24-48); MEAN CORPUSCULAR HEMOGLOBIN 31 pg (25-35); MEAN CORPUSCULAR HGB CONC 34 g/dL (31-37); MEAN CORPUSCULAR VOLUME 90 fL (79-100); MONO # 1.4 x10^3/uL (0.0-1.1); MONO % 12 % (0-9); NEUT # 8.3 x10^3/uL (1.8-7.7); NEUT % 69 % (31-73); PLATELET COUNT 461 x10^3/uL (140-400); RED BLOOD COUNT 2.97 x10^6/uL (3.50-5.40); RED CELL DISTRIBUTION WIDTH 17.5 % (11.5-14.5)
[2018-11-27] MEDS: MORPHINE SULFATE 2 MG/ML VIAL. IV PRN ×2 (09:57→12:02)
[2018-11-27] MEDS ORDERED: diphenhydrAMINE 50 MG/ML VIAL IVP PRN (10:00)
[2018-11-27 10:18] LABS: ALBUMIN 2.8 g/dL (3.4-5.0); CALCIUM 8.7 mg/dL (8.5-10.1); CREATININE 11.9 mg/dL (0.6-1.0); POTASSIUM 5.8 mmol/L (3.5-5.1)
[2018-11-27 10:20] LABS: PHOSPHORUS 11.3 mg/dL (2.6-4.7)
[2018-11-27 10:56] VITALS: BP 152/64
--- NOTE | 2018-11-27 11:09 | PDOC ---
Infectious Disease Note Vital Sign Vital Signs Vital Signs Date Time Temp Pulse Resp B/P (MAP) Pulse Ox O2 Delivery O2 Flow Rate FiO2 11/27/18 09:57 90 Room Air 11/27/18 08:33 83 149/60 11/27/18 07:00 97.9 18 97.9 Labs Lab Laboratory Tests Test 11/26/18 13:03 11/26/18 16:52 11/26/18 17:16 11/26/18 18:25 White Blood Count 14.5 x10^3/uL (4.0-11.0) Red Blood Count 2.24 x10^6/uL (3.50-5.40) Hemoglobin 6.8 g/dL (12.0-15.5) Hematocrit 20.3 % (36.0-47.0) Mean Corpuscular Volume 91 fL (79-100) Mean Corpuscular Hemoglobin 31 pg (25-35) Mean Corpuscular Hemoglobin Concent 34 g/dL (31-37) Red Cell Distribution Width 19.1 % (11.5-14.5) Platelet Count 422 x10^3/uL (140-400) Neutrophils (%) (Auto) 79 % (31-73) Lymphocytes (%) (Auto) 11 % (24-48) Monocytes (%) (Auto) 10 % (0-9) Eosinophils (%) (Auto) 0 % (0-3) Basophils (%) (Auto) 0 % (0-3) Neutrophils # (Auto) 11.5 x10^3/uL (1.8-7.7) Lymphocytes # (Auto) 1.6 x10^3/uL (1.0-4.8) Monocytes # (Auto) 1.4 x10^3/uL (0.0-1.1) Eosinophils # (Auto) 0.0 x10^3/uL (0.0-0.7) Basophils # (Auto) 0.0 x10^3/uL (0.0-0.2) Prothrombin Time 13.9 SEC (11.7-14.0) Prothromb Time International Ratio 1.1 (0.8-1.1) Sodium Level 140 mmol/L (136-145) Potassium Level 6.6 mmol/L (3.5-5.1) Chloride Level 99 mmol/L (98-107) Carbon Dioxide Level 22 mmol/L (21-32) Anion Gap 19 (6-14) Blood Urea Nitrogen 102 mg/dL (7-20) Creatinine 11.8 mg/dL (0.6-1.0) Estimated GFR (Cockcroft-Gault) 4.0 BUN/Creatinine Ratio 9 (6-20) Glucose Level 81 mg/dL (70-99) Lactic Acid Level 0.6 mmol/L (0.4-2.0) Calcium Level 9.3 mg/dL (8.5-10.1) Total Bilirubin 0.3 mg/dL (0.2-1.0) Aspartate Amino Transf (AST/SGOT) 44 U/L (15-37) Alanine Aminotransferase (ALT/SGPT) 44 U/L (14-59) Alkaline Phosphatase 79 U/L (46-116) Total Protein 7.1 g/dL (6.4-8.2) Albumin 2.7 g/dL (3.4-5.0) Albumin/Globulin Ratio 0.6 (1.0-1.7) Glucose (Fingerstick) 32 mg/dL (70-99) 63 mg/dL (70-99) 67 mg/dL (70-99) Test 11/26/18 19:52 11/26/18 23:20 11/27/18 07:40 11/27/18 09:15 Glucose (Fingerstick) 108 mg/dL (70-99) 160 mg/dL (70-99) Hemoglobin 8.4 g/dL (12.0-15.5) 9.1 g/dL (12.0-15.5) Hematocrit 24.2 % (36.0-47.0) 26.8 % (36.0-47.0) White Blood Count 12.0 x10^3/uL (4.0-11.0) Red Blood Count 2.97 x10^6/uL (3.50-5.40) Mean Corpuscular Volume 90 fL (79-100) Mean Corpuscular Hemoglobin 31 pg (25-35) Mean Corpuscular Hemoglobin Concent 34 g/dL (31-37) Red Cell Distribution Width 17.5 % (11.5-14.5) Platelet Count 461 x10^3/uL (140-400) Neutrophils (%) (Auto) 69 % (31-73) Lymphocytes (%) (Auto) 18 % (24-48) Monocytes (%) (Auto) 12 % (0-9) Eosinophils (%) (Auto) 1 % (0-3) Basophils (%) (Auto) 1 % (0-3) Neutrophils # (Auto) 8.3 x10^3/uL (1.8-7.7) Lymphocytes # (Auto) 2.1 x10^3/uL (1.0-4.8) Monocytes # (Auto) 1.4 x10^3/uL (0.0-1.1) Eosinophils # (Auto) 0.1 x10^3/uL (0.0-0.7) Basophils # (Auto) 0.1 x10^3/uL (0.0-0.2) Sodium Level 142 mmol/L (136-145) Potassium Level 5.8 mmol/L (3.5-5.1) Chloride Level 98 mmol/L (98-107) Carbon Dioxide Level 28 mmol/L (21-32) Anion Gap 16 (6-14) Blood Urea Nitrogen 108 mg/dL (7-20) Creatinine 11.9 mg/dL (0.6-1.0) Estimated GFR (Cockcroft-Gault) 4.0 Glucose Level 143 mg/dL (70-99) Calcium Level 8.7 mg/dL (8.5-10.1) Phosphorus Level 11.3 mg/dL (2.6-4.7) Albumin 2.8 g/dL (3.4-5.0) Random Vancomycin Level 35.1 mcg/mL Objective Assessment Rt foot multiple toes gangrene Leukocytosis Anemia ESRD PAD H/O C diff Plan Plan of Care d/c antibiotics probiotics likely will need amputation, vascular surgery following ELYSSA YATES MD Nov 27, 2018 11:08
--- NOTE | 2018-11-27 11:15 | PDOC2 ---
CONSULT Date of Consult Date of Consult DATE: 11/27/18 TIME: 11:06 Reason for Consult Reason for Consult: ESRD Source Source: Chart review, Patient History of Present Illness Reason for Visit: Pt is a 57 year old AAF w/ PMHx ESRD on HD M/W/F presents via EMS with reports of acute right toe pain. This patient has had toe pain, she has frequent hospitalizations between [facility] and [facility] She was at [facility] over the weekend, I was transitional care manager and arranged for HD on Monday as she has missed her treatments(Chr Non complaince) and was anemic as well. She left AMA without HD and PRBC . Potassium was 6.6 in the ED, BUN 102 and Hb 6.8. She is post PRBC yesterday. No Renal labs this am . Denies any N/V . No SOB Past Medical History Cardiovascular: CHF, HTN, Hyperlipidemia, Other Pulmonary: Asthma, COPD CENTRAL NERVOUS SYSTEM: Periperal neuropathy GI: No pertinent hx Heme/Onc: No pertinent hx Hepatobiliary: No pertinent hx Psych: Anxiety Rheumatologic: Fibromyalgia Infectious disease: No pertinent hx Renal/: Chronic renal failure Endocrine: Diabetes, Hypothyroidism, Hyperparathyroidism Past Surgical History Past Surgical History: Other Family History Family History: Other Social History ALCOHOL: none Drugs: Cocaine, Marijuana Lives: with Family Current Problem List Problem List Problems Medical Problems: (1) CKD (chronic kidney disease) Status: Chronic (2) Gangrene of toe of right foot Status: Acute Current Medications Current Medications Current Medications Vancomycin HCl (Vanco Per Pharmacy) 1 each PRN DAILY PRN MC SEE COMMENTS Last administered on 11/26/18at 16:45; Start 11/26/18 at 12:00 Levofloxacin (Levaquin) 500 mg 1X ONCE PO Last administered on 11/26/18at 13:17; Start 11/26/18 at 12:00; Stop 11/26/18 at 12:02; Status DC Vancomycin HCl 250 ml @ 250 mls/hr 1X ONCE IV Last administered on 11/26/18at 13:41; Start 11/26/18 at 12:45; Stop 11/26/18 at 13:44; Status DC Calcium Gluconate (Calcium Gluconate) 1,000 mg 1X ONCE IVP Last administered on 11/26/18at 14:17; Start 11/26/18 at 14:00; Stop 11/26/18 at 14:01; Status DC Sodium Bicarbonate (Sodium Bicarb Adult 8.4% Syr) 50 meq 1X ONCE IV Last administered on 11/26/18 14:17; Start 11/26/18 at 14:00; Stop 11/26/18 at 14:01; Status DC Dextrose (Dextrose 50%-Water Syringe) 25 gm 1X ONCE IV Last administered on 11/26/18at 14:17; Start 11/26/18 at 14:00; Stop 11/26/18 at 14:01; Status DC Insulin Human Regular (HumuLIN R VIAL) 10 unit 1X ONCE IV Last administered on 11/26/18 14:17; Start 11/26/18 at 14:00; Stop 11/26/18 at 14:01; Status DC Sodium Polystyrene Sulfonate (Kayexalate) 30 gm 1X ONCE PO Last administered on 11/26/18 14:17; Start 11/26/18 at 14:00; Stop 11/26/18 at 14:01; Status DC Vancomycin HCl (Vancomycin Random Level) 1 each 1X ONCE MC ; Start 11/27/18 at 05:00; Stop 11/27/18 at 05:01; Status DC Albuterol Sulfate (Ventolin Neb Soln) 2.5 mg BID PRN INH SHORTNESS OF BREATH Last administered on 11/26/18at 19:40; Start 11/26/18 at 17:00 Alprazolam (Xanax) 0.5 mg PRN TID PRN PO ANXIETY / AGITATION Last administered on 11/27/18at 01:56; Start 11/26/18 at 17:00 Amlodipine Besylate (Norvasc) 10 mg DAILY PO Last administered on 11/27/18at 08:33; Start 11/27/18 at 09:00 Atorvastatin Calcium (Lipitor) 40 mg HS PO Last administered on 11/26/18 19:54; Start 11/26/18 at 21:00 Carvedilol (Coreg) 6.25 mg BIDWMEALS PO Last administered on 11/27/18at 08:33; Start 11/26/18 at 17:00 Clonidine HCl (Catapres Tts-2) 1 patch WEEKLY TD Last administered on 11/27/18at 08:33; Start 11/27/18 at 09:00 Acetaminophen/ Hydrocodone Bitart (Lortab 5/325) 1 tab PRN Q6HRS PRN PO PAIN; Start 11/26/18 at 17:00 Latanoprost (Xalatan) 1 drop HS OU Last administered on 11/26/18at 19:54; Start 11/26/18 at 21:00 Levothyroxine Sodium (Synthroid) 50 mcg DAILY06 PO Last administered on 11/27/18at 06:01; Start 11/27/18 at 06:00 Lisinopril (Prinivil) 20 mg DAILY PO ; Start 11/27/18 at 09:00; Status UNV Prochlorperazine Maleate (Compazine) 5 mg PRN TID PRN PO NAUSEA; Start 11/26/18 at 17:00 Sertraline HCl (Zoloft) 50 mg DAILY PO Last administered on 11/27/18at 08:33; Start 11/27/18 at 09:00 Non-Formulary Medication (Lipase/Protease/ Amylase (Creon Dr 6,000 Units Capsule)) 1 tab TID PO ; Start 11/26/18 at 21:00; Status UNV Pantoprazole Sodium (Protonix) 40 mg DAILYAC PO Last administered on 11/27/18 08:33; Start 11/27/18 at 07:30 Fentanyl Citrate (Fentanyl 2ml Vial) 50 mcg PRN Q2HR PRN IV PAIN Last administered on 11/27/18at 08:33; Start 11/26/18 at 17:00; Stop 11/27/18 at 09:39; Status DC Ondansetron HCl (Zofran) 4 mg PRN Q6HRS PRN IV NAUSEA/VOMITING 1ST CHOICE; Start 11/26/18 at 20:00 Psyllium Hydrophilic Mucilloid (Metamucil Fiber Packet) 1 pkt DAILY PO ; Start 11/27/18 at 09:00 Polyethylene Glycol (miraLAX PACKET) 17 gm DAILY PO ; Start 11/27/18 at 09:00 Heparin Sodium (Porcine) (Heparin Sodium) 5,000 unit BID SQ Last administered on 11/27/18at 08:33; Start 11/26/18 at 21:00 Morphine Sulfate (Morphine Sulfate) 4 mg PRN Q2HR PRN IV PAIN Last administered on 11/27/18at 09:57; Start 11/27/18 at 09:45 Diphenhydramine HCl (Benadryl) 25 mg PRN Q6HRS PRN IVP ITCHING; Start 11/27/18 at 10:00 Active Scripts Active Tylenol (Acetaminophen) 325 Mg Capsule 650 Mg PO Q6-8HRS PRN Keflex (Cephalexin) 500 Mg Capsule 2 Cap PO Q12HR [place] 5-325 Tablet (Acetaminophen/Hydrocodone Bitart) 1 Each Tablet 1 Tab PO BID 5 Days Amox Tr-K Clv 500-125 Mg Tab (Amoxicillin/Potassium Clav) 1 Each Tablet 1 Tab PO DAILY 7 Days [place] 5-325 Tablet (Acetaminophen/Hydrocodone Bitart) 1 Each Tablet 1 Tab PO PRN Q6HRS PRN Alprazolam 0.5 Mg Tablet 0.5 Mg PO PRN TID PRN MDD 1 Zantac (Ranitidine Hcl) 300 Mg Tablet 1 Tab PO QHS Compazine (Prochlorperazine Maleate) 5 Mg Tablet 5 Mg PO PRN TID PRN 10 Days [Pantoprazole] 40 MG Tablet. 40 Mg PO DAILYAC 30 Days Reported Zoloft (Sertraline Hcl) 50 Mg Tablet 50 Mg PO DAILY Lisinopril 20 Mg Tablet 20 Mg PO DAILY Coreg (Carvedilol) 6.25 Mg Tablet 6.25 Mg PO BIDWMEALS [place] 6,000 Units Capsule (Lipase/Protease/Amylase) 1 Each Capsule. 1 Tab PO TID Proair Hfa (Albuterol Sulfate) 8.5 Gm Hfa.aer.ad 2 Puff INH BID PRN Levothyroxine Sodium 50 Mcg Tablet 1 Tab PO DAILY Clonidine Tts-2 (Clonidine) 1 Each Patch.tdwk 1 Patch TD WEEKLY Amlodipine Besylate 5 Mg Tablet 10 Mg PO DAILY Atorvastatin Calcium 40 Mg Tablet 40 Mg PO HS Latanoprost 2.5 Ml Drops 1 Drop EACHEYE HS Allergies Allergies: Coded Allergies: morphine (Verified Allergy, Intermediate, Itching, 03/27/18) ROS Review of System Per HPI Physical Exam Physical Exam General: NAD HEENT: OM moist Lungs: Clear to auscultation, no acc muscle use Heart: S1S2, RRR Abdomen: Normal bowel sounds, Soft, No tenderness, Extremities: Left 5th toe amputation site with sutures , open. Right 2nd toe black, ulcer on 5th toe and great toe. 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 Chronic severe Non compliance with Dialysis Hyperkalemia - Missed HD Non compliance with treatment , On lisinopril as well, monitor Severe peripheral arterial disease with early gangrenous changes to toes on the right foot and eschar on the left foot. Vascular plan repeat angiogram to evaluate the arterial flow to both feet. PVD s/p balloon angioplasty and stent placement LLE, 10/15 Diabetes w peripheral neuropathy Labs Labs Laboratory Tests Test 11/26/18 13:03 11/26/18 16:52 11/26/18 17:16 11/26/18 18:25 White Blood Count 14.5 x10^3/uL (4.0-11.0) Red Blood Count 2.24 x10^6/uL (3.50-5.40) Hemoglobin 6.8 g/dL (12.0-15.5) Hematocrit 20.3 % (36.0-47.0) Mean Corpuscular Volume 91 fL (79-100) Mean Corpuscular Hemoglobin 31 pg (25-35) Mean Corpuscular Hemoglobin Concent 34 g/dL (31-37) Red Cell Distribution Width 19.1 % (11.5-14.5) Platelet Count 422 x10^3/uL (140-400) Neutrophils (%) (Auto) 79 % (31-73) Lymphocytes (%) (Auto) 11 % (24-48) Monocytes (%) (Auto) 10 % (0-9) Eosinophils (%) (Auto) 0 % (0-3) Basophils (%) (Auto) 0 % (0-3) Neutrophils # (Auto) 11.5 x10^3/uL (1.8-7.7) Lymphocytes # (Auto) 1.6 x10^3/uL (1.0-4.8) Monocytes # (Auto) 1.4 x10^3/uL (0.0-1.1) Eosinophils # (Auto) 0.0 x10^3/uL (0.0-0.7) Basophils # (Auto) 0.0 x10^3/uL (0.0-0.2) Prothrombin Time 13.9 SEC (11.7-14.0) Prothromb Time International Ratio 1.1 (0.8-1.1) Sodium Level 140 mmol/L (136-145) Potassium Level 6.6 mmol/L (3.5-5.1) Chloride Level 99 mmol/L (98-107) Carbon Dioxide Level 22 mmol/L (21-32) Anion Gap 19 (6-14) Blood Urea Nitrogen 102 mg/dL (7-20) Creatinine 11.8 mg/dL (0.6-1.0) Estimated GFR (Cockcroft-Gault) 4.0 BUN/Creatinine Ratio 9 (6-20) Glucose Level 81 mg/dL (70-99) Lactic Acid Level 0.6 mmol/L (0.4-2.0) Calcium Level 9.3 mg/dL (8.5-10.1) Total Bilirubin 0.3 mg/dL (0.2-1.0) Aspartate Amino Transf (AST/SGOT) 44 U/L (15-37) Alanine Aminotransferase (ALT/SGPT) 44 U/L (14-59) Alkaline Phosphatase 79 U/L (46-116) Total Protein 7.1 g/dL (6.4-8.2) Albumin 2.7 g/dL (3.4-5.0) Albumin/Globulin Ratio 0.6 (1.0-1.7) Glucose (Fingerstick) 32 mg/dL (70-99) 63 mg/dL (70-99) 67 mg/dL (70-99) Test 11/26/18 19:52 11/26/18 23:20 11/27/18 07:40 11/27/18 09:15 Glucose (Fingerstick) 108 mg/dL (70-99) 160 mg/dL (70-99) Hemoglobin 8.4 g/dL (12.0-15.5) 9.1 g/dL (12.0-15.5) Hematocrit 24.2 % (36.0-47.0) 26.8 % (36.0-47.0) White Blood Count 12.0 x10^3/uL (4.0-11.0) Red Blood Count 2.97 x10^6/uL (3.50-5.40) Mean Corpuscular Volume 90 fL (79-100) Mean Corpuscular Hemoglobin 31 pg (25-35) Mean Corpuscular Hemoglobin Concent 34 g/dL (31-37) Red Cell Distribution Width 17.5 % (11.5-14.5) Platelet Count 461 x10^3/uL (140-400) Neutrophils (%) (Auto) 69 % (31-73) Lymphocytes (%) (Auto) 18 % (24-48) Monocytes (%) (Auto) 12 % (0-9) Eosinophils (%) (Auto) 1 % (0-3) Basophils (%) (Auto) 1 % (0-3) Neutrophils # (Auto) 8.3 x10^3/uL (1.8-7.7) Lymphocytes # (Auto) 2.1 x10^3/uL (1.0-4.8) Monocytes # (Auto) 1.4 x10^3/uL (0.0-1.1) Eosinophils # (Auto) 0.1 x10^3/uL (0.0-0.7) Basophils # (Auto) 0.1 x10^3/uL (0.0-0.2) Sodium Level 142 mmol/L (136-145) Potassium Level 5.8 mmol/L (3.5-5.1) Chloride Level 98 mmol/L (98-107) Carbon Dioxide Level 28 mmol/L (21-32) Anion Gap 16 (6-14) Blood Urea Nitrogen 108 mg/dL (7-20) Creatinine 11.9 mg/dL (0.6-1.0) Estimated GFR (Cockcroft-Gault) 4.0 Glucose Level 143 mg/dL (70-99) Calcium Level 8.7 mg/dL (8.5-10.1) Phosphorus Level 11.3 mg/dL (2.6-4.7) Albumin 2.8 g/dL (3.4-5.0) Random Vancomycin Level 35.1 mcg/mL Laboratory Tests Test 11/26/18 13:03 11/26/18 16:52 11/26/18 17:16 11/26/18 18:25 White Blood Count 14.5 x10^3/uL (4.0-11.0) Red Blood Count 2.24 x10^6/uL (3.50-5.40) Hemoglobin 6.8 g/dL (12.0-15.5) Hematocrit 20.3 % (36.0-47.0) Mean Corpuscular Volume 91 fL (79-100) Mean Corpuscular Hemoglobin 31 pg (25-35) Mean Corpuscular Hemoglobin Concent 34 g/dL (31-37) Red Cell Distribution Width 19.1 % (11.5-14.5) Platelet Count 422 x10^3/uL (140-400) Neutrophils (%) (Auto) 79 % (31-73) Lymphocytes (%) (Auto) 11 % (24-48) Monocytes (%) (Auto) 10 % (0-9) Eosinophils (%) (Auto) 0 % (0-3) Basophils (%) (Auto) 0 % (0-3) Neutrophils # (Auto) 11.5 x10^3/uL (1.8-7.7) Lymphocytes # (Auto) 1.6 x10^3/uL (1.0-4.8) Monocytes # (Auto) 1.4 x10^3/uL (0.0-1.1) Eosinophils # (Auto) 0.0 x10^3/uL (0.0-0.7) Basophils # (Auto) 0.0 x10^3/uL (0.0-0.2) Prothrombin Time 13.9 SEC (11.7-14.0) Prothromb Time International Ratio 1.1 (0.8-1.1) Sodium Level 140 mmol/L (136-145) Potassium Level 6.6 mmol/L (3.5-5.1) Chloride Level 99 mmol/L (98-107) Carbon Dioxide Level 22 mmol/L (21-32) Anion Gap 19 (6-14) Blood Urea Nitrogen 102 mg/dL (7-20) Creatinine 11.8 mg/dL (0.6-1.0) Estimated GFR (Cockcroft-Gault) 4.0 BUN/Creatinine Ratio 9 (6-20) Glucose Level 81 mg/dL (70-99) Lactic Acid Level 0.6 mmol/L (0.4-2.0) Calcium Level 9.3 mg/dL (8.5-10.1) Total Bilirubin 0.3 mg/dL (0.2-1.0) Aspartate Amino Transf (AST/SGOT) 44 U/L (15-37) Alanine Aminotransferase (ALT/SGPT) 44 U/L (14-59) Alkaline Phosphatase 79 U/L (46-116) Total Protein 7.1 g/dL (6.4-8.2) Albumin 2.7 g/dL (3.4-5.0) Albumin/Globulin Ratio 0.6 (1.0-1.7) Glucose (Fingerstick) 32 mg/dL (70-99) 63 mg/dL (70-99) 67 mg/dL (70-99) Test 11/26/18 19:52 11/26/18 23:20 11/27/18 07:40 11/27/18 09:15 Glucose (Fingerstick) 108 mg/dL (70-99) 160 mg/dL (70-99) Hemoglobin 8.4 g/dL (12.0-15.5) 9.1 g/dL (12.0-15.5) Hematocrit 24.2 % (36.0-47.0) 26.8 % (36.0-47.0) White Blood Count 12.0 x10^3/uL (4.0-11.0) Red Blood Count 2.97 x10^6/uL (3.50-5.40) Mean Corpuscular Volume 90 fL (79-100) Mean Corpuscular Hemoglobin 31 pg (25-35) Mean Corpuscular Hemoglobin Concent 34 g/dL (31-37) Red Cell Distribution Width 17.5 % (11.5-14.5) Platelet Count 461 x10^3/uL (140-400) Neutrophils (%) (Auto) 69 % (31-73) Lymphocytes (%) (Auto) 18 % (24-48) Monocytes (%) (Auto) 12 % (0-9) Eosinophils (%) (Auto) 1 % (0-3) Basophils (%) (Auto) 1 % (0-3) Neutrophils # (Auto) 8.3 x10^3/uL (1.8-7.7) Lymphocytes # (Auto) 2.1 x10^3/uL (1.0-4.8) Monocytes # (Auto) 1.4 x10^3/uL (0.0-1.1) Eosinophils # (Auto) 0.1 x10^3/uL (0.0-0.7) Basophils # (Auto) 0.1 x10^3/uL (0.0-0.2) Sodium Level 142 mmol/L (136-145) Potassium Level 5.8 mmol/L (3.5-5.1) Chloride Level 98 mmol/L (98-107) Carbon Dioxide Level 28 mmol/L (21-32) Anion Gap 16 (6-14) Blood Urea Nitrogen 108 mg/dL (7-20) Creatinine 11.9 mg/dL (0.6-1.0) Estimated GFR (Cockcroft-Gault) 4.0 Glucose Level 143 mg/dL (70-99) Calcium Level 8.7 mg/dL (8.5-10.1) Phosphorus Level 11.3 mg/dL (2.6-4.7) Albumin 2.8 g/dL (3.4-5.0) Random Vancomycin Level 35.1 mcg/mL Review All relevant outside records, renal labs, imaging studies, telemetry/EKG's were reviewed. DOMINIQUE TSE MD Nov 27, 2018 11:15
[2018-11-27] MEDS: VANCOMYCIN PER PHARMACY MC PRN (11:18)
--- NOTE | 2018-11-27 11:19 | NUR ---
Pharmacy Vancomycin Dosing Note S:Consulted to monitor and dose vancomycin started 11/26/18. O:OTTONIEL SMITH is a 58 year old F with Cellulitis Right toe necrosis/Diabetic foot wound/ not noted to be osteo . Height: 5 feet, 2 inches Weight: 54.900416 kg [place] Body Weight: 50.10 Adjusted Body Weight: 48.22 Dosing Weight: Actual Other Antibiotics: LABS: Last BUN: 108 Last Creatinine: 11.9 Creatinine Clearance: HD mL/min Last WBC: 12.0 Last Procalcitonin: NA Tmax (past 24 hours): 98.2 Microbiology: Pending I/O: Not yet documented Drug Levels: Last Random level: 35.1 on 11/27/18 at 0915 Last dose given 11/26/18 at 1341 Vancomycin Dosing: Loading Dose: 1000 mg x1 Dosing Weight: Actual Target Trough: 10-20 A: Based on trough of 35.1: P: 1. Hold vancomycin until random level is within normal limits. 2. Follow up Random level on 11/30/18 at 0600. 3. Pharmacy will continue to monitor, follow and adjust therapy as needed. Gabriel Finnegan [facility] [place], 11/27/18 0851
--- NOTE | 2018-11-27 11:58 | PDOC ---
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 Right 2nd toe black, ulcer on 5th toe and great toe. Right calf edema) Skin: No rashes, Other (Multiple calciphylaxis lesions) Labs Labs: Laboratory Tests Test 11/26/18 13:03 11/26/18 16:52 11/26/18 17:16 11/26/18 18:25 White Blood Count 14.5 x10^3/uL (4.0-11.0) Red Blood Count 2.24 x10^6/uL (3.50-5.40) Hemoglobin 6.8 g/dL (12.0-15.5) Hematocrit 20.3 % (36.0-47.0) Mean Corpuscular Volume 91 fL (79-100) Mean Corpuscular Hemoglobin 31 pg (25-35) Mean Corpuscular Hemoglobin Concent 34 g/dL (31-37) Red Cell Distribution Width 19.1 % (11.5-14.5) Platelet Count 422 x10^3/uL (140-400) Neutrophils (%) (Auto) 79 % (31-73) Lymphocytes (%) (Auto) 11 % (24-48) Monocytes (%) (Auto) 10 % (0-9) Eosinophils (%) (Auto) 0 % (0-3) Basophils (%) (Auto) 0 % (0-3) Neutrophils # (Auto) 11.5 x10^3/uL (1.8-7.7) Lymphocytes # (Auto) 1.6 x10^3/uL (1.0-4.8) Monocytes # (Auto) 1.4 x10^3/uL (0.0-1.1) Eosinophils # (Auto) 0.0 x10^3/uL (0.0-0.7) Basophils # (Auto) 0.0 x10^3/uL (0.0-0.2) Prothrombin Time 13.9 SEC (11.7-14.0) Prothromb Time International Ratio 1.1 (0.8-1.1) Sodium Level 140 mmol/L (136-145) Potassium Level 6.6 mmol/L (3.5-5.1) Chloride Level 99 mmol/L (98-107) Carbon Dioxide Level 22 mmol/L (21-32) Anion Gap 19 (6-14) Blood Urea Nitrogen 102 mg/dL (7-20) Creatinine 11.8 mg/dL (0.6-1.0) Estimated GFR (Cockcroft-Gault) 4.0 BUN/Creatinine Ratio 9 (6-20) Glucose Level 81 mg/dL (70-99) Lactic Acid Level 0.6 mmol/L (0.4-2.0) Calcium Level 9.3 mg/dL (8.5-10.1) Total Bilirubin 0.3 mg/dL (0.2-1.0) Aspartate Amino Transf (AST/SGOT) 44 U/L (15-37) Alanine Aminotransferase (ALT/SGPT) 44 U/L (14-59) Alkaline Phosphatase 79 U/L (46-116) Total Protein 7.1 g/dL (6.4-8.2) Albumin 2.7 g/dL (3.4-5.0) Albumin/Globulin Ratio 0.6 (1.0-1.7) Glucose (Fingerstick) 32 mg/dL (70-99) 63 mg/dL (70-99) 67 mg/dL (70-99) Test 11/26/18 19:52 11/26/18 23:20 11/27/18 07:40 11/27/18 09:15 Glucose (Fingerstick) 108 mg/dL (70-99) 160 mg/dL (70-99) Hemoglobin 8.4 g/dL (12.0-15.5) 9.1 g/dL (12.0-15.5) Hematocrit 24.2 % (36.0-47.0) 26.8 % (36.0-47.0) White Blood Count 12.0 x10^3/uL (4.0-11.0) Red Blood Count 2.97 x10^6/uL (3.50-5.40) Mean Corpuscular Volume 90 fL (79-100) Mean Corpuscular Hemoglobin 31 pg (25-35) Mean Corpuscular Hemoglobin Concent 34 g/dL (31-37) Red Cell Distribution Width 17.5 % (11.5-14.5) Platelet Count 461 x10^3/uL (140-400) Neutrophils (%) (Auto) 69 % (31-73) Lymphocytes (%) (Auto) 18 % (24-48) Monocytes (%) (Auto) 12 % (0-9) Eosinophils (%) (Auto) 1 % (0-3) Basophils (%) (Auto) 1 % (0-3) Neutrophils # (Auto) 8.3 x10^3/uL (1.8-7.7) Lymphocytes # (Auto) 2.1 x10^3/uL (1.0-4.8) Monocytes # (Auto) 1.4 x10^3/uL (0.0-1.1) Eosinophils # (Auto) 0.1 x10^3/uL (0.0-0.7) Basophils # (Auto) 0.1 x10^3/uL (0.0-0.2) Sodium Level 142 mmol/L (136-145) Potassium Level 5.8 mmol/L (3.5-5.1) Chloride Level 98 mmol/L (98-107) Carbon Dioxide Level 28 mmol/L (21-32) Anion Gap 16 (6-14) Blood Urea Nitrogen 108 mg/dL (7-20) Creatinine 11.9 mg/dL (0.6-1.0) Estimated GFR (Cockcroft-Gault) 4.0 Glucose Level 143 mg/dL (70-99) Calcium Level 8.7 mg/dL (8.5-10.1) Phosphorus Level 11.3 mg/dL (2.6-4.7) Albumin 2.8 g/dL (3.4-5.0) Random Vancomycin Level 35.1 mcg/mL Review of Systems Review of Systems: Denies PATE Denies vision change Assessment and Plan Assessmemt and Plan Problems Medical Problems: (1) CKD (chronic kidney disease) Status: Chronic (2) Gangrene of toe of right foot Status: Acute Gangrene of toe on right foot CKD DM2 CHF HTN Hyperlipidemia Asthma COPD Hypothyroidism Hyperparathyroidism Fibromyalgia Plan Consult vascular regarding gangrene on toes of right feet Will check TSH levels to evaluate if hypothyroid due to c/o coldness MSO4 4 mg IVQ2/Stop Fentanyl for pain Benadryl DVT prophylaxis PT/OT Continue home meds Full code Appreciate sub specialty input Comment Review of Relevant I have reviewed the following items pamela (where applicable) has been applied. Medications: Current Medications Medications (Trade) Dose Ordered Sig/Clarence Route PRN Reason Start Time Stop Time Status Last Admin Dose Admin Vancomycin HCl (Vanco Per Pharmacy) 1 each PRN DAILY PRN MC SEE COMMENTS 11/26/18 12:00 11/27/18 11:18 DC 11/27/18 11:18 Levofloxacin (Levaquin) 500 mg 1X ONCE PO 11/26/18 12:00 11/26/18 12:02 DC 11/26/18 13:17 Vancomycin HCl 250 ml @ 250 mls/hr 1X ONCE IV 11/26/18 12:45 11/26/18 13:44 DC 11/26/18 13:41 Calcium Gluconate (Calcium Gluconate) 1,000 mg 1X ONCE IVP 11/26/18 14:00 11/26/18 14:01 DC 11/26/18 14:17 Sodium Bicarbonate (Sodium Bicarb Adult 8.4% Syr) 50 meq 1X ONCE IV 11/26/18 14:00 11/26/18 14:01 DC 11/26/18 14:17 Dextrose (Dextrose 50%-Water Syringe) 25 gm 1X ONCE IV 11/26/18 14:00 11/26/18 14:01 DC 11/26/18 14:17 Insulin Human Regular (HumuLIN R VIAL) 10 unit 1X ONCE IV 11/26/18 14:00 11/26/18 14:01 DC 11/26/18 14:17 Sodium Polystyrene Sulfonate (Kayexalate) 30 gm 1X ONCE PO 11/26/18 14:00 11/26/18 14:01 DC 11/26/18 14:17 Albuterol Sulfate (Ventolin Neb Soln) 2.5 mg BID PRN INH SHORTNESS OF BREATH 11/26/18 17:00 11/26/18 19:40 Alprazolam (Xanax) 0.5 mg PRN TID PRN PO ANXIETY / AGITATION 11/26/18 17:00 11/27/18 01:56 Amlodipine Besylate (Norvasc) 10 mg DAILY PO 11/27/18 09:00 11/27/18 08:33 Atorvastatin Calcium (Lipitor) 40 mg HS PO 11/26/18 21:00 11/26/18 19:54 Carvedilol (Coreg) 6.25 mg BIDWMEALS PO 11/26/18 17:00 11/27/18 08:33 Clonidine HCl (Catapres Tts-2) 1 patch WEEKLY TD 11/27/18 09:00 11/27/18 08:33 Latanoprost (Xalatan) 1 drop HS OU 11/26/18 21:00 11/26/18 19:54 Levothyroxine Sodium (Synthroid) 50 mcg DAILY06 PO 11/27/18 06:00 11/27/18 06:01 Sertraline HCl (Zoloft) 50 mg DAILY PO 11/27/18 09:00 11/27/18 08:33 Pantoprazole Sodium (Protonix) 40 mg DAILYAC PO 11/27/18 07:30 11/27/18 08:33 Fentanyl Citrate (Fentanyl 2ml Vial) 50 mcg PRN Q2HR PRN IV PAIN 11/26/18 17:00 11/27/18 09:39 DC 11/27/18 08:33 Heparin Sodium (Porcine) (Heparin Sodium) 5,000 unit BID SQ 11/26/18 21:00 11/27/18 08:33 Morphine Sulfate (Morphine Sulfate) 4 mg PRN Q2HR PRN IV PAIN 11/27/18 09:45 11/27/18 09:57 ANGELINA GOMEZ III DO Nov 27, 2018 11:58
[2018-11-27] MEDS ORDERED: LACTOBACILLUS RHAMNOSUS GG 1 CAPSULE. PO SCH (12:00)
--- NOTE | 2018-11-27 15:03 | NUR ---
Patient received PRN pain medications this shift q2 hours as available. Transportation came to take patient to dialysis, she said she did not get her pain medication in time so she would not go to dialysis. Patient was educated that she would not be able to go to dialysis at a later time this day because of scheduling and she stated that she did not care and she wasn't going anywhere because she didn't get her medication on time. Dialysis notified and Jess RN with dialysis notified Dr. Aleman.
--- NOTE | 2018-11-27 16:14 | PDOC ---
Provider Note Provider Note S: Pt well known to our service. Seen in room with Dr. Agarwal She has had previous angioplasty to bilateral legs by Dr. Clay. s/p left 5th ray amputation September 26? left upper arm AV graft 10/23/18 Now here with ischemic right foot and nonhealing left TMA site. I saw the patient on Monday at [facility], she apparently left AMA from there over the weekend and came here. O: VSS, Afebrile Awake, alert, in no apparent disress Respirations nonlabored Central line left neck Left upper arm graft with good thrill Left foot amputation site with slough tissue throughout, necrotic wound edges. Foot edematous Right 1st, 2nd and 5th toes are dry gangrene, not salvageable Reviewed UE US, LE US, previous arteriogram A/P: 1. Severe peripheral arterial disease with ischemic rest pain 2. ESRD on HD Pt seen with Dr. Agarwal - Plan for AARO with Dr. Clay with right leg intervention tomorrow with staged left leg intervention. We discussed with Dr. Clay. She will eventually need debridement left 5th ray amp site if intervention possible and circulation optimized. Pt has poor 1 vessel runoff on right, previously treated. Will await arteriogram results. If unable to treat or failed treatment, pt will likely require BKA. We briefly discussed this with the patient and daughter Cristóbal today. We also discussed medical compliance, diabetes management and tobacco cessation which the patient is not willing to quit at this time. She has very poor prognosis of salvage of her feet due to the combination of her medical comorbidities and her sporadic compliance. - Dialysis access is patent with successful previous use. - Pain management MARK MITCHELL Nov 27, 2018 16:14
[2018-11-27 17:00] VITALS: BP 152/64
--- NOTE | 2018-11-27 17:09 | NUR ---
Patient requesting to leave AMA. Refused to take PO pain medication. Patient signed AMA paperwork, Nursing supervisor counseling and guidance and Dr. Talley notified. IV and travel attendants removed. Nursing supervisor counseling and guidance sent cab pass for patient.
--- NOTE | 2018-11-27 17:26 | CONS ---
DATE OF CONSULTATION: 11/27/2018 REQUESTING PHYSICIAN: Jeffrey Wilhelm MD REASON FOR CONSULTATION: Leukocytosis and need for antibiotics. HISTORY OF PRESENT ILLNESS: This is a 58-year-old -[place] female with multiple admissions, patient with noncomplianc. The patient had vomited, right toe pain and dark black toes. The patient was given a dose of vancomycin and the patient is on vancomycin and a dose of Levaquin. The patient's white count on admission was 14.5. The patient is alert, awake. The patient denies any nausea or diarrhea. The patient does have black three toes on the right and she is crying because she was told that she will need amputation. PAST MEDICAL HISTORY: Positive for end-stage renal disease, on hemodialysis, diabetes mellitus, cardiomyopathy, hypertension, peripheral arterial disease. The patient has had left fifth toe amputation done, previous lower extremity percutaneous angioplasty done, cholecystectomy, hysterectomy. SOCIAL HISTORY: Negative for smoking, alcohol, illicit drug use. ALLERGIES: No known drug allergies. CURRENT MEDICATIONS: Reviewed. REVIEW OF SYSTEMS: As per HPI, all other systems reviewed are negative. PHYSICAL EXAMINATION: GENERAL: Alert, oriented female, not in any distress. VITAL SIGNS: Stable, afebrile. HEENT: NAD. NECK: Supple. No JVP, no lymphadenopathy. LUNGS: Clear. HEART: S1, S2 regular. ABDOMEN: Benign. EXTREMITIES: The left lower extremity is swollen, but there is no open wound. Fifth toe amputation site is unremarkable. Right lower extremity: There is a dry gangrene of the first, second and fifth toes. NEUROLOGIC: The patient is neurologically alert, awake and appropriate. No focal neurologic deficit. LABORATORY DATA: White count is 12,000, hemoglobin when she came in was 6.8. She received a blood transfusion. BUN and creatinine is 108 and 11.9. She has had C. diff in August. Her lower extremity ultrasound with nonvisualization of the dorsalis pedis and also nonvisualization of the posterior tibial. IMPRESSION: 1. Gangrene of the first, second and the fifth toes on the right. There are some minor gangrenous changes on the left fifth toe amputation site. 2. Peripheral arterial disease. 3. Diabetes. 4. Hypertension. 5. Cardiomyopathy. 6. End-stage renal disease, on hemodialysis. RECOMMENDATIONS: As it is a dry gangrene, there is no need for antibiotics. Supportive care. Leukocytosis was likely reactive secondary to vomiting and anemia. Vascular Surgery is following. Repeat angiogram and see if there is any option to open up, otherwise the patient is going to need further amputation, at least the toes eventually will need to go. Discussed with the patient and the patient's daughter at her request on the phone, I would be adding towards not using antibiotics because of her recent C. diff, I would advise probiotics and we will continue to follow. ELYSSA YATES MD DR: TERRY/franny JOB#: [id number] / [id number]
--- NOTE | 2018-11-27 18:50 | NUR ---
Discharge Note: OTTONIEL SMITH S [address] [place] [address] Discharge instructions and discharge home medications reviewed with Patient and a copy given. All questions have been answered and understanding verbalized. The following instructions and handouts were given: PATIENT LEFT AMA. NOTIFIED OF RISKS OF LEAVING AGAINST MEDICAL ADVISE. PATIENT STATED UNDERSTANDING AND THAT STAFF WAS NOT HELPING HER ANYWAY. Discontinued lines and drains: Peripheral IV DISCONTINUED AND CATHETER intact. Patient discharged to AMA with via Wheelchair
[2018-11-30] MEDS ORDERED: VANCOMYCIN RANDOM LEVEL. MC ONE (06:00)
== END 2018-11-27 18:52 | disposition left against medical advice (07) | DRG 299 ==
LOC: ER 11:50 → ED HOLD 14:30 → 6 SOUTH 15:43
PROVIDERS: ADMIT Internal Medicine; ATTEND Internal Medicine
PROC: 30233N1 Transfusion of Nonautologous Red Blood Cells into Peripheral Vein, Percutaneous Approach (ICD-10-PCS; principal; 2018-11-26)
DX: E11.52 Type 2 diabetes mellitus with diabetic peripheral angiopathy with gangrene (principal); N18.6 End stage renal disease; I13.2 Hypertensive heart and chronic kidney disease with heart failure and with stage 5 chronic kidney disease, or end stage renal disease; I42.9 Cardiomyopathy, unspecified; D64.9 Anemia, unspecified; D72.829 Elevated white blood cell count, unspecified; E03.9 Hypothyroidism, unspecified; E11.22 Type 2 diabetes mellitus with diabetic chronic kidney disease; E21.3 Hyperparathyroidism, unspecified; E78.5 Hyperlipidemia, unspecified; E87.5 Hyperkalemia; I16.0 Hypertensive urgency; Z53.21 Procedure and treatment not carried out due to patient leaving prior to being seen by health care provider; I50.9 Heart failure, unspecified; I70.209 Unspecified atherosclerosis of native arteries of extremities, unspecified extremity; J44.9 Chronic obstructive pulmonary disease, unspecified; M79.7 Fibromyalgia; Z90.710 Acquired absence of both cervix and uterus; Z99.2 Dependence on renal dialysis; F41.9 Anxiety disorder, unspecified; G62.9 Polyneuropathy, unspecified; G89.29 Other chronic pain; Z71.6 Tobacco abuse counseling; Z91.15 Patient's noncompliance with renal dialysis; Z88.8 Allergy status to other drugs, medicaments and biological substances
CPT/HCPCS: 36415; 71045; 73630; 80053; 80069; 80202; 82962; 83605; 84443; 85014; 85018; 85025; 85610; 86850; 86900; 86901; 86920; 87040; 93005; 93926; 93931; 93971; 94640; J0610; J1644; J1815; J2270; J3010; J3370; J7042; J7613; P9016; 99285-25; G0378

== ENCOUNTER 2018-12-01 15:03 | Inpatient (IN) | payer OTHER ==
[~2018-12-01] VITALS: Ht 160 cm; Wt 52.9 kg
[~2018-12-01 15:03] MED LIST changes: -CLON1PAT2 TD; +CLON1PAT6 TD
[2018-12-01] MEDS ORDERED: fentaNYL PF VIAL 100 MCG/2 ML VIAL IV STA ×2 (15:21→16:09)
--- NOTE | 2018-12-01 15:30 | PHYS DOC ---
Past Medical History Past Medical History: Diabetes-Type II Additional Past Medical Histor: neuropathy, cataracts,CHRONIC PAIN,ESRD Past Surgical History: Hysterectomy, Other Additional Past Surgical Histo: PICC PLACEMENT Alcohol Use: None Drug Use: None Adult General Chief Complaint Chief Complaint: TOE PROBLEM HPI HPI Ms. Salazar, is a 58 year old F w/ PMHx ESRD on HD M/W/F presents via EMS with reports of acute right toe pain. This patient has had toe pain she tells me now for at least a couple of weeks. She has been admitted multiple times to this facility recently but has left before treatment AMA. Reports her pain is out of control and is 10/10 in severity. A BKA of R leg was planned but patient left before could be performed. Review of Systems Review of Systems Refuses to completely answer questions. She just states she is in too much pain to answer them. Current Medications Current Medications Current Medications Medications (Trade) Dose Ordered Sig/Clarence Start Time Stop Time Status Last Admin Dose Admin Fentanyl Citrate (Fentanyl 2ml Vial) 50 mcg PRN Q1HR PRN 12/01/18 16:30 12/02/18 16:29 Ondansetron HCl (Zofran) 4 mg PRN Q8HRS PRN 12/01/18 16:30 12/02/18 16:29 Allergies Allergies Allergies Coded Allergies Type Severity Reaction Last Updated Verified morphine Allergy Intermediate Itching 03/27/18 Yes Physical Exam Physical Exam Constitutional: Well developed, well nourished. HENT: Normocephalic, atraumatic, bilateral external ears normal, oropharynx moist, no oral exudates, nose normal. [] Eyes: PERRLA, EOMI, conjunctiva normal, no discharge. [] Neck: Normal range of motion, no tenderness, supple, no stridor. [] Cardiovascular:Heart rate regular rhythm, no murmur [] Lungs & Thorax: Bilateral breath sounds clear to auscultation [] Abdomen: Bowel sounds normal, soft, no tenderness, no masses, no pulsatile masses. [] Skin: Warm, dry, no erythema, no rash. [] Back: No tenderness, no CVA tenderness. [] Extremities: Tenderness to bilateral extremity; right foot with dry gangrene of 3 toes, limited motion of the toes; no evidence of active infection, all dry gangrene and chronic necrosis; left foot with incompletely healed left fifth toe and metatarsal head amputation site. No evidence of active infection Neurologic: Alert and oriented X 3, normal motor function, normal sensory function, no focal deficits noted. [] Psychologic: Affect normal, judgement normal, mood normal. [] Current Patient Data Vital Signs Vital Signs Date Time Temp Pulse Resp B/P (MAP) Pulse Ox O2 Delivery O2 Flow Rate FiO2 12/01/18 16:24 16 12/01/18 16:20 66 150/65 (93) 97 Room Air 12/01/18 15:04 97.6 97.6 Lab Values Laboratory Tests Test 12/01/18 15:54 White Blood Count 12.2 x10^3/uL (4.0-11.0) H Red Blood Count 2.62 x10^6/uL (3.50-5.40) L Hemoglobin 8.2 g/dL (12.0-15.5) L Hematocrit 23.9 % (36.0-47.0) L Mean Corpuscular Volume 91 fL (79-100) Mean Corpuscular Hemoglobin 31 pg (25-35) Mean Corpuscular Hemoglobin Concent 34 g/dL (31-37) Red Cell Distribution Width 17.2 % (11.5-14.5) H Platelet Count 357 x10^3/uL (140-400) Neutrophils (%) (Auto) 80 % (31-73) H Lymphocytes (%) (Auto) 11 % (24-48) L Monocytes (%) (Auto) 8 % (0-9) Eosinophils (%) (Auto) 1 % (0-3) Basophils (%) (Auto) 1 % (0-3) Neutrophils # (Auto) 9.7 x10^3/uL (1.8-7.7) H Lymphocytes # (Auto) 1.4 x10^3/uL (1.0-4.8) Monocytes # (Auto) 0.9 x10^3/uL (0.0-1.1) Eosinophils # (Auto) 0.1 x10^3/uL (0.0-0.7) Basophils # (Auto) 0.1 x10^3/uL (0.0-0.2) Sodium Level 140 mmol/L (136-145) Potassium Level 4.4 mmol/L (3.5-5.1) Chloride Level 99 mmol/L (98-107) Carbon Dioxide Level 26 mmol/L (21-32) Anion Gap 15 (6-14) H Blood Urea Nitrogen 34 mg/dL (7-20) H Creatinine 6.7 mg/dL (0.6-1.0) H Estimated GFR (Cockcroft-Gault) 7.7 BUN/Creatinine Ratio 5 (6-20) L Glucose Level 143 mg/dL (70-99) H Lactic Acid Level 0.7 mmol/L (0.4-2.0) Calcium Level 9.0 mg/dL (8.5-10.1) Total Bilirubin Pending Aspartate Amino Transferase (AST) Pending Alanine Aminotransferase (ALT) Pending Alkaline Phosphatase Pending Total Protein Pending Albumin Pending Albumin/Globulin Ratio Pending Laboratory Tests 12/01/18 15:54 Laboratory Tests 12/01/18 15:54 EKG EKG [] Radiology/Procedures Radiology/Procedures [] Course & Med Decision Making Course & Med Decision Making Pertinent Labs and Imaging studies reviewed. (See chart for details) Patient is back after leaving AMA with Gangrene. Plan was to have BKA however that was cancelled when she left AMA. Discussed with patient and she agrees to be admitted to hospital. She states that she want to be a DNR. This was said in front of MAGALY Michelle. Discussed with Dr. De Guzman at 1630 who agrees to admission. Will consult VSA. Melisa Disclaimer Melisa Disclaimer This electronic medical record was generated, in whole or in part, using a voice recognition dictation system. Departure Departure Impression: Primary Impression: Gangrene of toe of right foot Disposition: ADMITTED INPATIENT Admitting Physician: SOFI Condition: STABLE Referrals: UNKNOWN PCP NAME (PCP) MARQUISE NARANJO APRN Dec 01, 2018 15:30
[2018-12-01 16:12] LABS: BASO # 0.1 x10^3/uL (0.0-0.2); BASO % 1 % (0-3); EOS # 0.1 x10^3/uL (0.0-0.7); EOS % 1 % (0-3); HEMATOCRIT 23.9 % (36.0-47.0); HEMOGLOBIN 8.2 g/dL (12.0-15.5); LYMPH # 1.4 x10^3/uL (1.0-4.8); LYMPH % 11 % (24-48); MEAN CORPUSCULAR HEMOGLOBIN 31 pg (25-35); MEAN CORPUSCULAR HGB CONC 34 g/dL (31-37); MEAN CORPUSCULAR VOLUME 91 fL (79-100); MONO # 0.9 x10^3/uL (0.0-1.1); MONO % 8 % (0-9); NEUT # 9.7 x10^3/uL (1.8-7.7); NEUT % 80 % (31-73); PLATELET COUNT 357 x10^3/uL (140-400); RED BLOOD COUNT 2.62 x10^6/uL (3.50-5.40); RED CELL DISTRIBUTION WIDTH 17.2 % (11.5-14.5); WHITE BLOOD COUNT 12.2 x10^3/uL (4.0-11.0)
[2018-12-01 16:19] LABS: CREATININE 6.7 mg/dL (0.6-1.0); GFR 7.7; POTASSIUM 4.4 mmol/L (3.5-5.1)
--- NOTE | 2018-12-01 16:23 | PDOC1 ---
History and Physical Date of Admission Date of Admission DATE: 12/01/18 TIME: 16:23 Identification/Chief Complaint Chief Complaint SEEN IN ER, 58 year old F w/ PMHx ESRD on HD M/W/F presents via EMS with reports of acute right toe pain. has had toe pain she tells me now for at least a couple of weeks. has been admitted multiple times to this facility recently but has left before treatment AMA. Reports her pain is out of control and is 10/10 in severity. BKA of R leg was planned but patient left before could be performed. last month Past Medical History Past Medical History Past Medical History Past Medical History Past Medical History: Diabetes-Type II Additional Past Medical Histor: neuropathy, cataracts,CHRONIC PAIN,ESRD Past Surgical History: Hysterectomy, Other Additional Past Surgical Histo: PICC PLACEMENT Alcohol Use: None Drug Use: None fhx diabetes Past Medical History Cardiovascular: CHF, HTN, Hyperlipidemia, Other Pulmonary: Asthma, COPD CENTRAL NERVOUS SYSTEM: Periperal neuropathy GI: No pertinent hx Heme/Onc: No pertinent hx Hepatobiliary: No pertinent hx Psych: Anxiety Rheumatologic: Fibromyalgia Infectious disease: No pertinent hx Renal/: Chronic renal failure Endocrine: Diabetes, Hypothyroidism, Hyperparathyroidism Past Surgical History Past Surgical History: Other Family History Family History: Other Social History Quit ALCOHOL: none Drugs: Cocaine, Marijuana Lives: with Family Cardiovascular: CHF, HTN, Hyperlipidemia, Other Pulmonary: Asthma, COPD CENTRAL NERVOUS SYSTEM: Periperal neuropathy GI: No pertinent hx Heme/Onc: No pertinent hx Hepatobiliary: No pertinent hx Psych: Anxiety Rheumatologic: Fibromyalgia Infectious disease: No pertinent hx Renal/: Chronic renal failure Endocrine: Diabetes, Hypothyroidism, Hyperparathyroidism Past Surgical History Past Surgical History: Other Family History Family History: High Cholestrol, Hypertension, Other Social History Smoke: No ALCOHOL: none Drugs: Cocaine, Marijuana Current Problem List Problem List Problems Medical Problems: (1) Gangrene of toe of right foot Status: Acute Current Medications Current Medications Current Medications Fentanyl Citrate (Fentanyl 2ml Vial) 50 mcg 1X STAT IV Last administered on 12/01/18at 15:29; Start 12/01/18 at 15:21; Stop 12/01/18 at 15:23; Status DC Fentanyl Citrate (Fentanyl 2ml Vial) 50 mcg 1X STAT IV ; Start 12/01/18 at 1 6:09; Stop 12/01/18 at 16:11; Status DC Active Scripts Active Tylenol (Acetaminophen) 325 Mg Capsule 650 Mg PO Q6-8HRS PRN [place] 5-325 Tablet (Acetaminophen/Hydrocodone Bitart) 1 Each Tablet 1 Tab PO BID 5 Days [place] 5-325 Tablet (Acetaminophen/Hydrocodone Bitart) 1 Each Tablet 1 Tab PO PRN Q6HRS PRN Alprazolam 0.5 Mg Tablet 0.5 Mg PO PRN TID PRN MDD 1 Zantac (Ranitidine Hcl) 300 Mg Tablet 1 Tab PO QHS Compazine (Prochlorperazine Maleate) 5 Mg Tablet 5 Mg PO PRN TID PRN 10 Days [Pantoprazole] 40 MG Tablet.dr 40 Mg PO DAILYAC 30 Days Reported Zoloft (Sertraline Hcl) 50 Mg Tablet 50 Mg PO DAILY Lisinopril 20 Mg Tablet 20 Mg PO DAILY Coreg (Carvedilol) 6.25 Mg Tablet 6.25 Mg PO BIDWMEALS Creon Dr 6,000 Units Capsule (Lipase/Protease/Amylase) 1 Each Capsule.dr 1 Tab PO TID Proair Hfa (Albuterol Sulfate) 8.5 Gm Hfa.aer.ad 2 Puff INH BID PRN Levothyroxine Sodium 50 Mcg Tablet 1 Tab PO DAILY Clonidine Tts-2 (Clonidine) 1 Each Patch.tdwk 1 Patch TD WEEKLY Amlodipine Besylate 5 Mg Tablet 10 Mg PO DAILY Atorvastatin Calcium 40 Mg Tablet 40 Mg PO HS Latanoprost 2.5 Ml Drops 1 Drop EACHEYE HS Allergies Allergies: Coded Allergies: morphine (Verified Allergy, Intermediate, Itching, 03/27/18) ROS Review of System 14 PT ROS OTHERWISE NEG General: YES: Fatigue PSYCHOLOGICAL ROS: YES: Anxiety, Depression; No: Behavioral Disorder, Concentration difficultie, Decreased libido, Disorientation, Hallucinations, Hostility, Irritablity, Memory difficulties, Mood Swings, Obsessive thoughts, Physical abuse, Sexual abuse, Sleep disturbances, Suicidal ideation, Other Eyes: Yes Decreased vision HEENT: No: Heacaches, Visual Changes, Hearing change, Nasal congestion, Nasal discharge, Oral lesions, Sinus pain, Sore Throat, Epistaxis, Sneezing, Snoring, Tinnitus, Vertigo, Vocal changes, Other ALLERGY AND IMMUNOLOGY: No: Hives, Insect Bite Sensitivity, Itchy/Watery Eyes, Nasal Congestion, Post Nasal Drip, Seasonal Allergies, Other Hematological and Lymphatic: No: Bleeding Problems, Blood Clots, Blood Transfusions, Brusing, Night Sweats, Pallor, Swollen Lymph Nodes, Other Respiratory: No: Cough, Hemoptysis, Orthopnea, Pleuritic Pain, Shortness of breath, SOB with excertion, Sputum Changes, Stridor, Tachypnea, Wheezing, Other Cardiovascular: No Chest Pain, No Palpitations, No Orthopnea, No Paroxysmal Noc. Dyspnea, No Edema, No Lt Headedness, No Other Gastrointestinal: Yes Nausea Musculoskeletal: Yes Gait Disturbance, Yes Joint Pain, Yes Joint Stiffness Neurological: Yes Gait Disturbance, Yes Numbness/Tingling Skin: Yes Dry Skin, Yes Skin Lesion Changes Physical Exam Physical Exam HENT: Normocephalic, atraumatic, bilateral external ears normal, oropharynx moist, no oral exudates, nose normal. [] Eyes: PERRLA, EOMI, conjunctiva normal, no discharge. [] Neck: Normal range of motion, no tenderness, supple, no stridor. [] Cardiovascular:Heart rate regular rhythm, no murmur [] Lungs & Thorax: Bilateral breath sounds clear to auscultation [] Abdomen: Bowel sounds normal, soft, no tenderness, no masses, no pulsatile masses. [] Skin: GANGRENE DESCRIBED [] Back: No tenderness, no CVA tenderness. [] Extremities: Tenderness to bilateral extremity; right foot with dry gangrene of 3 toes, limited motion of the toes; no evidence of active infection, all dry gangrene and chronic necrosis; left foot with incompletely healed left fifth toe and metatarsal head amputation site. No evidence of active infection Neurologic: Alert and oriented X 3, normal motor function, normal sensory function, no focal deficits noted. [] Psychologic: Affect ANXIOUS , judgement POOR, mood normal. [] General: Alert, Oriented X3, Cooperative, mild distress, moderate distress HEENT: Atraumatic, PERRLA Lungs: Clear to auscultation, Normal air movement Heart: RRR, no thrills Breasts: Not examined Abdomen: Soft Rectal Exam: not examined PELVIC: Examination not indicated Neuro: Normal speech, Cranial nerves 3-12 NL Vitals Vitals Vital Signs Date Time Temp Pulse Resp B/P (MAP) Pulse Ox O2 Delivery O2 Flow Rate FiO2 12/01/18 15:29 16 12/01/18 15:04 97.6 151/63 (92) 95 Room Air 97.6 Labs Labs Laboratory Tests Test 12/01/18 15:54 White Blood Count 12.2 x10^3/uL (4.0-11.0) Red Blood Count 2.62 x10^6/uL (3.50-5.40) Hemoglobin 8.2 g/dL (12.0-15.5) Hematocrit 23.9 % (36.0-47.0) Mean Corpuscular Volume 91 fL (79-100) Mean Corpuscular Hemoglobin 31 pg (25-35) Mean Corpuscular Hemoglobin Concent 34 g/dL (31-37) Red Cell Distribution Width 17.2 % (11.5-14.5) Platelet Count 357 x10^3/uL (140-400) Neutrophils (%) (Auto) 80 % (31-73) Lymphocytes (%) (Auto) 11 % (24-48) Monocytes (%) (Auto) 8 % (0-9) Eosinophils (%) (Auto) 1 % (0-3) Basophils (%) (Auto) 1 % (0-3) Neutrophils # (Auto) 9.7 x10^3/uL (1.8-7.7) Lymphocytes # (Auto) 1.4 x10^3/uL (1.0-4.8) Monocytes # (Auto) 0.9 x10^3/uL (0.0-1.1) Eosinophils # (Auto) 0.1 x10^3/uL (0.0-0.7) Basophils # (Auto) 0.1 x10^3/uL (0.0-0.2) Sodium Level 140 mmol/L (136-145) Potassium Level 4.4 mmol/L (3.5-5.1) Chloride Level 99 mmol/L (98-107) Carbon Dioxide Level 26 mmol/L (21-32) Anion Gap 15 (6-14) Blood Urea Nitrogen 34 mg/dL (7-20) Creatinine 6.7 mg/dL (0.6-1.0) Estimated GFR (Cockcroft-Gault) 7.7 BUN/Creatinine Ratio 5 (6-20) Glucose Level 143 mg/dL (70-99) Calcium Level 9.0 mg/dL (8.5-10.1) Laboratory Tests Test 12/01/18 15:54 White Blood Count 12.2 x10^3/uL (4.0-11.0) Red Blood Count 2.62 x10^6/uL (3.50-5.40) Hemoglobin 8.2 g/dL (12.0-15.5) Hematocrit 23.9 % (36.0-47.0) Mean Corpuscular Volume 91 fL (79-100) Mean Corpuscular Hemoglobin 31 pg (25-35) Mean Corpuscular Hemoglobin Concent 34 g/dL (31-37) Red Cell Distribution Width 17.2 % (11.5-14.5) Platelet Count 357 x10^3/uL (140-400) Neutrophils (%) (Auto) 80 % (31-73) Lymphocytes (%) (Auto) 11 % (24-48) Monocytes (%) (Auto) 8 % (0-9) Eosinophils (%) (Auto) 1 % (0-3) Basophils (%) (Auto) 1 % (0-3) Neutrophils # (Auto) 9.7 x10^3/uL (1.8-7.7) Lymphocytes # (Auto) 1.4 x10^3/uL (1.0-4.8) Monocytes # (Auto) 0.9 x10^3/uL (0.0-1.1) Eosinophils # (Auto) 0.1 x10^3/uL (0.0-0.7) Basophils # (Auto) 0.1 x10^3/uL (0.0-0.2) Sodium Level 140 mmol/L (136-145) Potassium Level 4.4 mmol/L (3.5-5.1) Chloride Level 99 mmol/L (98-107) Carbon Dioxide Level 26 mmol/L (21-32) Anion Gap 15 (6-14) Blood Urea Nitrogen 34 mg/dL (7-20) Creatinine 6.7 mg/dL (0.6-1.0) Estimated GFR (Cockcroft-Gault) 7.7 BUN/Creatinine Ratio 5 (6-20) Glucose Level 143 mg/dL (70-99) Calcium Level 9.0 mg/dL (8.5-10.1) Images Images STATUS: ADM IN ORD. PHYSICIAN: NATE JENSEN MD REASON: Wound on foot PROCEDURE: [id number] ANGIO EXTREMITY RIGHT 19 1. Right lower extremity angiography 2. Angioplasty of the right anterior tibial artery 3. Multifocal angioplasty, right superficial femoral artery Consent: The procedure was explained in its entirety to the patient or the patients designated airport representative by a member of the treatment team, including a discussion of the risks, benefits and commonly accepted alternatives to the procedure, as well as the expected consequences of no therapy whatsoever. Discussion of the risks included, but was not limited to, those that are most frequent and those that are rare but possibly severe or life-threatening, as well as the possibility of unforeseen complications. Sterility: All elements of maximal sterile barrier technique including the use of a cap, mask, sterile gown, sterile gloves, large sterile sheet, appropriate hand hygiene, and 2% chlorhexidine for cutaneous antisepsis (or acceptable alternative antiseptic per current guidelines) were followed for this procedure. Technique: The patient was brought to fluoroscopy suite and placed in the supine position. Timeout procedure was performed. The left groin was prepped and draped using sterile barrier technique. 1% lidocaine was measured for local anesthesia. Ultrasound evaluation demonstrates left common femoral artery be calcified patent. The artery was accessed using direct ultrasound guidance and micropuncture technique. Reference ultrasound images were saved medical record. A 5 Bangladeshi vascular sheath was placed. The aortic bifurcation was crossed. Right lower extremity angiography was performed demonstrating moderate stenosis in the proximal right superficial femoral artery. Moderate to high-grade stenosis in the mid right superficial femoral artery. The popliteal artery appears grossly patent. There is essentially single vessel runoff to the foot via the anterior tibial artery. Occlusion of the dorsalis pedis artery in the more distal foot is seen though some collaterals, the proximal dorsalis pedis artery. A wire was used to traverse the anterior tibial artery and dorsalis pedis artery. Angioplasty was performed with a 1.5 mm balloon reestablished line flow to the level of the proximal foot, with improved filling of collaterals. Angioplasty of the superficial femoral artery was then performed using 5 mm balloons. This resulted in improved improved morphology and flow through the right superficial femoral artery. A closure device was deployed. The sheath was removed. And manual pressure was held. Sterile dressings were applied. No immediate complications were seen. Impression: Total fluoroscopy time: 19.7 minutes Dose area product: 53 Gycm2 Impression: 1. Right lower extremity angiography with subsequent angioplasty of the right superficial femoral artery and anterior tibial artery DICTATED and SIGNED BY: CLAUDE VILA MD DATE: 10/19/18 0849 VTE Prophylaxis Ordered VTE Prophylaxis Devices: No VTE Pharmacological Prophylaxi: Yes Assessment/Plan Assessment/Plan IMPRESSION Gangrene of right FOOT 3 toes of foot. 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 - RECENT needs local wound care Dyslipidemia MALNUTRITION polysubstance abuse hx Diffuse moderate to advanced atherosclerotic plaque in the lower EXT arteries with moderate stenosis in the mid SFA, Right lower extremity angiography with subsequent angioplasty of the right superficial femoral artery and anterior tibial artery SEPTEMBER 2018 PLAN ADMIT VASC SURG CONSULT IV PAIN CONTROL CONSULT NEPHROLOGY 76 MIN PT EXAM, CHART REVIEW, > 50% OF TIME SPENT WITH EXAM, CHART REVIEW, PT CARE COORDINATION SANGEETHA MUELLER MD Dec 01, 2018 16:23
[2018-12-01] MEDS ORDERED: ONDANSETRON PF 4 MG/2 ML VIAL. IV PRN (16:30)
[2018-12-01 16:32] LABS: ALBUMIN 2.9 g/dL (3.4-5.0); ALBUMIN/GLOBULIN RATIO 0.6 (1.0-1.7); TOTAL BILIRUBIN 0.3 mg/dL (0.2-1.0); TOTAL PROTEIN 7.5 g/dL (6.4-8.2)
[2018-12-01] MEDS: fentaNYL PF VIAL 100 MCG/2 ML VIAL IV PRN ×2 (17:39→20:59)
[2018-12-01] MEDS ORDERED: C.DIFF MED SCREEN BY RX. MC ONE (18:15)
--- NOTE | 2018-12-01 18:50 | NUR ---
COMPLETED ADMISSION ASSESSMENT. MAGALY MEDINA (NIGHTS) WILL COMPLETE WOUND ASSESSMENT AND WOUND PICTURES FOR ADMISSION/MONDAY CHARTING.
[2018-12-01 18:55] VITALS: BP 151/51
--- NOTE | 2018-12-01 19:13 | PDOC ---
Provider Note Provider Note Pt seen and full consult dictated by Dr Poole on Nov.30. Right BKA was recommended and accepted by the patient. She was scheduled to have the procedure done on Dec [address] Poole. She left AMA. Please refer to the consult done yesterday. 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 Will plan right BKA on MondayDec 04 provided she stay in the hospital. She will be seen again on Monday for further confirmation of plans. MELANI MAHMOOD II, MD Dec 01, 2018 19:13
[2018-12-01 19:15] VITALS: BP 143/52
[2018-12-01] MEDS ORDERED: ALBUTEROL SULFATE 2.5 MG/3 ML NEBU. NEB PRN (19:30)
[2018-12-01] MEDS ORDERED: PROCHLORPERAZINE 5 MG TABLET. PO PRN (19:30)
[2018-12-01] MEDS ORDERED: ACETAMINOPHEN 325 MG TABLET. PO PRN (19:45)
[2018-12-01] MEDS: LATANOPROST 0.005% OPHTH SOLUTION 2.5ML BOTTLE. OU SCH (20:59)
[2018-12-01] MEDS: ALPRAZolam 0.5 MG TABLET PO PRN (20:59)
[2018-12-01] MEDS: HYDROcodone/APAP 5/325MG 1 TAB TABLET PO PRN (20:59)
[2018-12-01] MEDS: ATORVASTATIN CALCIUM 40 MG TABLET. PO SCH (20:59)
[2018-12-01] MEDS: FAMOTIDINE 20 MG TABLET. PO SCH (20:59)
[2018-12-01] MEDS ORDERED: HYDROcodone/APAP 5/325MG 1 TAB TABLET PO SCH (21:00)
[2018-12-01] MEDS: cefTRIAXone IV Push 1 GM VIAL. IVP SCH (21:01)
[2018-12-01 23:10] VITALS: BP 167/44
[2018-12-02] MEDS: fentaNYL PF VIAL 100 MCG/2 ML VIAL IV PRN ×9 (00:02→23:05)
[2018-12-02] MEDS: HYDROcodone/APAP 5/325MG 1 TAB TABLET PO PRN ×3 (04:42→18:55)
[2018-12-02 07:30] VITALS: BP 97/40
[2018-12-02] MEDS ORDERED: NON FORMULARY ITEM ([Pantoprazole] 40 MG) PO SCH (07:30)
[2018-12-02] MEDS: CARVEDILOL 6.25 MG TABLET. PO SCH ×2 (08:00→17:00)
--- NOTE | 2018-12-02 08:32 | PDOC ---
PROGRESS NOTES Chief Complaint Chief Complaint Gangrene of right FOOT 3 toes of foot. 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 - RECENT needs local wound care Dyslipidemia malnutrition polysubstance abuse hx Diffuse moderate to advanced atherosclerotic plaque in the lower EXT arteries with moderate stenosis in the mid SFA, Right lower extremity angiography with subsequent angioplasty of the right superficial femoral artery and anterior tibial artery SEPTEMBER 2018 History of Present Illness History of Present Illness surg planned, BKA needed vascular following Vitals Vitals Vital Signs Date Time Temp Pulse Resp B/P (MAP) Pulse Ox O2 Delivery O2 Flow Rate FiO2 12/02/18 07:33 99 Room Air 12/02/18 07:30 98.0 74 16 97/40 (59) 98.0 Physical Exam General: Alert, Oriented X3, Cooperative, mild distress Heart: No murmurs Abdomen: Soft Extremities: Other (ischemic limb) Skin: No rashes, Other Labs LABS Laboratory Tests Test 12/01/18 15:54 12/01/18 18:15 12/01/18 21:20 White Blood Count 12.2 x10^3/uL (4.0-11.0) Red Blood Count 2.62 x10^6/uL (3.50-5.40) Hemoglobin 8.2 g/dL (12.0-15.5) Hematocrit 23.9 % (36.0-47.0) Mean Corpuscular Volume 91 fL (79-100) Mean Corpuscular Hemoglobin 31 pg (25-35) Mean Corpuscular Hemoglobin Concent 34 g/dL (31-37) Red Cell Distribution Width 17.2 % (11.5-14.5) Platelet Count 357 x10^3/uL (140-400) Neutrophils (%) (Auto) 80 % (31-73) Lymphocytes (%) (Auto) 11 % (24-48) Monocytes (%) (Auto) 8 % (0-9) Eosinophils (%) (Auto) 1 % (0-3) Basophils (%) (Auto) 1 % (0-3) Neutrophils # (Auto) 9.7 x10^3/uL (1.8-7.7) Lymphocytes # (Auto) 1.4 x10^3/uL (1.0-4.8) Monocytes # (Auto) 0.9 x10^3/uL (0.0-1.1) Eosinophils # (Auto) 0.1 x10^3/uL (0.0-0.7) Basophils # (Auto) 0.1 x10^3/uL (0.0-0.2) Sodium Level 140 mmol/L (136-145) Potassium Level 4.4 mmol/L (3.5-5.1) Chloride Level 99 mmol/L (98-107) Carbon Dioxide Level 26 mmol/L (21-32) Anion Gap 15 (6-14) Blood Urea Nitrogen 34 mg/dL (7-20) Creatinine 6.7 mg/dL (0.6-1.0) Estimated GFR (Cockcroft-Gault) 7.7 BUN/Creatinine Ratio 5 (6-20) Glucose Level 143 mg/dL (70-99) Lactic Acid Level 0.7 mmol/L (0.4-2.0) Calcium Level 9.0 mg/dL (8.5-10.1) Total Bilirubin 0.3 mg/dL (0.2-1.0) Aspartate Amino Transf (AST/SGOT) 22 U/L (15-37) Alanine Aminotransferase (ALT/SGPT) 23 U/L (14-59) Alkaline Phosphatase 85 U/L (46-116) Total Protein 7.5 g/dL (6.4-8.2) Albumin 2.9 g/dL (3.4-5.0) Albumin/Globulin Ratio 0.6 (1.0-1.7) Glucose (Fingerstick) 123 mg/dL (70-99) 144 mg/dL (70-99) Review of Systems Review of Systems nausea Assessment and Plan Assessmemt and Plan Problems Medical Problems: (1) Gangrene of toe of right foot Status: Acute Comment Review of Relevant I have reviewed the following items pamela (where applicable) has been applied. Labs Laboratory Tests Test 12/01/18 15:54 12/01/18 18:15 12/01/18 21:20 White Blood Count 12.2 x10^3/uL (4.0-11.0) Red Blood Count 2.62 x10^6/uL (3.50-5.40) Hemoglobin 8.2 g/dL (12.0-15.5) Hematocrit 23.9 % (36.0-47.0) Mean Corpuscular Volume 91 fL (79-100) Mean Corpuscular Hemoglobin 31 pg (25-35) Mean Corpuscular Hemoglobin Concent 34 g/dL (31-37) Red Cell Distribution Width 17.2 % (11.5-14.5) Platelet Count 357 x10^3/uL (140-400) Neutrophils (%) (Auto) 80 % (31-73) Lymphocytes (%) (Auto) 11 % (24-48) Monocytes (%) (Auto) 8 % (0-9) Eosinophils (%) (Auto) 1 % (0-3) Basophils (%) (Auto) 1 % (0-3) Neutrophils # (Auto) 9.7 x10^3/uL (1.8-7.7) Lymphocytes # (Auto) 1.4 x10^3/uL (1.0-4.8) Monocytes # (Auto) 0.9 x10^3/uL (0.0-1.1) Eosinophils # (Auto) 0.1 x10^3/uL (0.0-0.7) Basophils # (Auto) 0.1 x10^3/uL (0.0-0.2) Sodium Level 140 mmol/L (136-145) Potassium Level 4.4 mmol/L (3.5-5.1) Chloride Level 99 mmol/L (98-107) Carbon Dioxide Level 26 mmol/L (21-32) Anion Gap 15 (6-14) Blood Urea Nitrogen 34 mg/dL (7-20) Creatinine 6.7 mg/dL (0.6-1.0) Estimated GFR (Cockcroft-Gault) 7.7 BUN/Creatinine Ratio 5 (6-20) Glucose Level 143 mg/dL (70-99) Lactic Acid Level 0.7 mmol/L (0.4-2.0) Calcium Level 9.0 mg/dL (8.5-10.1) Total Bilirubin 0.3 mg/dL (0.2-1.0) Aspartate Amino Transf (AST/SGOT) 22 U/L (15-37) Alanine Aminotransferase (ALT/SGPT) 23 U/L (14-59) Alkaline Phosphatase 85 U/L (46-116) Total Protein 7.5 g/dL (6.4-8.2) Albumin 2.9 g/dL (3.4-5.0) Albumin/Globulin Ratio 0.6 (1.0-1.7) Glucose (Fingerstick) 123 mg/dL (70-99) 144 mg/dL (70-99) Laboratory Tests Test 12/01/18 15:54 12/01/18 18:15 12/01/18 21:20 White Blood Count 12.2 x10^3/uL (4.0-11.0) Red Blood Count 2.62 x10^6/uL (3.50-5.40) Hemoglobin 8.2 g/dL (12.0-15.5) Hematocrit 23.9 % (36.0-47.0) Mean Corpuscular Volume 91 fL (79-100) Mean Corpuscular Hemoglobin 31 pg (25-35) Mean Corpuscular Hemoglobin Concent 34 g/dL (31-37) Red Cell Distribution Width 17.2 % (11.5-14.5) Platelet Count 357 x10^3/uL (140-400) Neutrophils (%) (Auto) 80 % (31-73) Lymphocytes (%) (Auto) 11 % (24-48) Monocytes (%) (Auto) 8 % (0-9) Eosinophils (%) (Auto) 1 % (0-3) Basophils (%) (Auto) 1 % (0-3) Neutrophils # (Auto) 9.7 x10^3/uL (1.8-7.7) Lymphocytes # (Auto) 1.4 x10^3/uL (1.0-4.8) Monocytes # (Auto) 0.9 x10^3/uL (0.0-1.1) Eosinophils # (Auto) 0.1 x10^3/uL (0.0-0.7) Basophils # (Auto) 0.1 x10^3/uL (0.0-0.2) Sodium Level 140 mmol/L (136-145) Potassium Level 4.4 mmol/L (3.5-5.1) Chloride Level 99 mmol/L (98-107) Carbon Dioxide Level 26 mmol/L (21-32) Anion Gap 15 (6-14) Blood Urea Nitrogen 34 mg/dL (7-20) Creatinine 6.7 mg/dL (0.6-1.0) Estimated GFR (Cockcroft-Gault) 7.7 BUN/Creatinine Ratio 5 (6-20) Glucose Level 143 mg/dL (70-99) Lactic Acid Level 0.7 mmol/L (0.4-2.0) Calcium Level 9.0 mg/dL (8.5-10.1) Total Bilirubin 0.3 mg/dL (0.2-1.0) Aspartate Amino Transf (AST/SGOT) 22 U/L (15-37) Alanine Aminotransferase (ALT/SGPT) 23 U/L (14-59) Alkaline Phosphatase 85 U/L (46-116) Total Protein 7.5 g/dL (6.4-8.2) Albumin 2.9 g/dL (3.4-5.0) Albumin/Globulin Ratio 0.6 (1.0-1.7) Glucose (Fingerstick) 123 mg/dL (70-99) 144 mg/dL (70-99) Medications Current Medications Fentanyl Citrate (Fentanyl 2ml Vial) 50 mcg 1X STAT IV Last administered on 12/01/18at 15:29; Start 12/01/18 at 15:21; Stop 12/01/18 at 15:23; Status DC Fentanyl Citrate (Fentanyl 2ml Vial) 50 mcg 1X STAT IV Last administered on 12/01/18at 16:24; Start 12/01/18 at 16:09; Stop 12/01/18 at 16:11; Status DC Ondansetron HCl (Zofran) 4 mg PRN Q8HRS PRN IV NAUSEA/VOMITING; Start 12/01/18 at 16:30; Stop 12/02/18 at 16:29 Fentanyl Citrate (Fentanyl 2ml Vial) 50 mcg PRN Q1HR PRN IV PAIN Last administered on 12/02/18at 07:33; Start 12/01/18 at 16:30; Stop 12/02/18 at 16:29 Pharmacy Consult (C.diff Med Screen By Rx) 1 each 1X ONCE [facility] ; Start 12/01/18 at 18:15; Stop 12/01/18 at 18:21; Status DC Albuterol Sulfate (Ventolin Neb Soln) 2.5 mg PRN Q4HRS PRN NEB SHORTNESS OF BREATH; Start 12/01/18 at 19:30 Alprazolam (Xanax) 0.5 mg PRN TID PRN PO ANXIETY / AGITATION Last administered on 12/01/18at 21:16; Start 12/01/18 at 19:30 Amlodipine Besylate (Norvasc) 10 mg DAILY PO ; Start 12/02/18 at 09:00 Atorvastatin Calcium (Lipitor) 40 mg HS PO Last administered on 12/01/18at 21:16; Start 12/01/18 at 21:00 Carvedilol (Coreg) 6.25 mg BIDWMEALS PO ; Start 12/02/18 at 08:00 Clonidine HCl (Catapres Tts-2) 1 patch WEEKLY TD ; Start 12/08/18 at 09:00 Acetaminophen/ Hydrocodone Bitart (Lortab 5/325) 1 tab BID PO ; Start 12/01/18 at 21:00; Status Cancel Acetaminophen/ Hydrocodone Bitart (Lortab 5/325) 1 tab PRN Q6HRS PRN PO PAIN Last administered on 12/02/18at 04:43; Start 12/01/18 at 19:30 Latanoprost (Xalatan) 1 drop HS OU Last administered on 12/01/18at 21:16; Start 12/01/18 at 21:00 Levothyroxine Sodium (Synthroid) 50 mcg DAILY PO ; Start 12/02/18 at 09:00 Lisinopril (Prinivil) 20 mg DAILY PO ; Start 12/02/18 at 09:00 Prochlorperazine Maleate (Compazine) 5 mg PRN TID PRN PO NAUSEA; Start 12/01/18 at 19:30 Sertraline HCl (Zoloft) 50 mg DAILY PO ; Start 12/02/18 at 09:00 Acetaminophen (Tylenol) 650 mg PRN Q6HRS PRN PO MILD PAIN / TEMP; Start 12/01/18 at 19:45 Amylase/Lipase/ Protease (Zenpep 5,000) 1 cap TIDWMEALS PO ; Start 12/02/18 at 08:00 Famotidine (Pepcid) 20 mg HS PO Last administered on 12/01/18at 21:16; Start 12/01/18 at 21:00 Non-Formulary Medication ([Pantoprazole] ) 40 mg DAILYAC PO ; Start 12/02/18 at 07:30; Status UNV Ceftriaxone Sodium (Rocephin) 1 gm Q24H IVP Last administered on 12/01/18at 21:16; Start 12/01/18 at 20:00 Vitamin B Complex/ Vitamin C (Pinky-Shreya) 1 tab DAILY PO ; Start 12/02/18 at 09:00 Active Scripts Active Tylenol (Acetaminophen) 325 Mg Capsule 650 Mg PO Q6-8HRS PRN Acworth 5-325 Tablet (Acetaminophen/Hydrocodone Bitart) 1 Each Tablet 1 Tab PO BID 5 Days Acworth 5-325 Tablet (Acetaminophen/Hydrocodone Bitart) 1 Each Tablet 1 Tab PO PRN Q6HRS PRN Alprazolam 0.5 Mg Tablet 0.5 Mg PO PRN TID PRN MDD 1 Zantac (Ranitidine Hcl) 300 Mg Tablet 1 Tab PO QHS Compazine (Prochlorperazine Maleate) 5 Mg Tablet 5 Mg PO PRN TID PRN 10 Days [Pantoprazole] 40 MG Tablet. 40 Mg PO DAILYAC 30 Days Reported Zoloft (Sertraline Hcl) 50 Mg Tablet 50 Mg PO DAILY Lisinopril 20 Mg Tablet 20 Mg PO DAILY Coreg (Carvedilol) 6.25 Mg Tablet 6.25 Mg PO BIDWMEALS Creon 6,000 Units Capsule (Lipase/Protease/Amylase) 1 Each Capsule. 1 Tab PO TID Proair Hfa (Albuterol Sulfate) 8.5 Gm Hfa.aer.ad 2 Puff INH BID PRN Levothyroxine Sodium 50 Mcg Tablet 1 Tab PO DAILY Clonidine Tts-2 (Clonidine) 1 Each Patch.tdwk 1 Patch TD WEEKLY Amlodipine Besylate 5 Mg Tablet 10 Mg PO DAILY Atorvastatin Calcium 40 Mg Tablet 40 Mg PO HS Latanoprost 2.5 Ml Drops 1 Drop EACHEYE HS Vitals/I & O Vital Sign - Last 24 Hours 12/01/18 12/01/18 12/01/18 12/01/18 15:04 15:29 16:20 16:24 Temp 97.6 97.6 Pulse 66 Resp 18 16 20 16 B/P (MAP) 151/63 (92) 150/65 (93) Pulse Ox 95 97 O2 Delivery Room Air Room Air 12/01/18 12/01/18 12/01/18 12/01/18 16:24 17:12 17:34 17:39 Pulse 66 Resp 16 18 18 16 B/P (MAP) 174/69 (104) 12/01/18 12/01/18 12/01/18 12/01/18 17:42 18:11 18:16 18:55 Temp 97.2 97.2 Pulse 67 66 Resp 18 18 B/P (MAP) 153/65 (94) 151/51 (84) Pulse Ox 97 97 99 O2 Delivery Room Air Room Air Room Air Room Air 12/01/18 12/01/18 12/01/18 12/01/18 19:15 21:16 22:20 23:10 Temp 98.1 98.0 98.1 98.0 Pulse 70 66 Resp 20 22 20 B/P (MAP) 143/52 (82) 167/44 (85) Pulse Ox 96 99 O2 Delivery Room Air Room Air Room Air 12/02/18 12/02/18 07:30 07:33 Temp 98.0 98.0 Pulse 74 Resp 16 B/P (MAP) 97/40 (59) Pulse Ox 97 99 O2 Delivery Room Air Room Air Intake and Output 12/01/18 12/01/18 12/02/18 15:00 23:00 07:00 Intake Total 400 ml Balance 400 ml HARDEEP MUÑOZ MD Dec 02, 2018 08:32
[2018-12-02] MEDS: LISINOPRIL 20 MG TABLET PO SCH (09:00)
[2018-12-02] MEDS: amLODIPine BESYLATE 5 MG TABLET PO SCH (09:00)
--- NOTE | 2018-12-02 09:20 | PDOC ---
SUBJECTIVE ROS Asked to see for ESRD on hemodialysis: This is one of many hospitalizations for Jenifer Salazar. She presented to the ER again via EMS with complaints of right toe pain. 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 She tells me she was dialyzed last on Monday. I'm unable to corroborate this. OBJECTIVE Vital Signs Vital Signs Date Time Temp Pulse Resp B/P (MAP) Pulse Ox O2 Delivery O2 Flow Rate FiO2 12/02/18 07:33 99 Room Air 12/02/18 07:30 98.0 74 16 97/40 (59) 98.0 I & 0 Intake and Output 12/02/18 07:00 Intake Total 400 ml Balance 400 ml Intake Oral 400 ml PHYSICAL EXAM Physical Exam GEN: Awake, Oriented x ? Patient is not cooperative at this time because all she wants his pain medications., In ? distress EYES: Sclera anicteric, Conjunctiva Normal EN: No EN Drainage, Mucous Membranes moist NECK: no JVD, no JVP, Supple, no Thyromegaly CVS: S1S2, + Murmur, No Gallop, No Rub,no Edema RESP: no Rales, no Rhonchi,no Acc. Muscle Use GI: BS + ve, NO Bruit, Non Tender, Non Distended : no CVA tenderness, no Suprapubic Tenderness DIAGNOSIS/ASSESSMENT Assessment & Plan ESRD: Current fluid and E-lyte status does not necessitate emergent need for dialysis. Will re-evaluate for dialysis in the am and continue on MWF schedule. ANEMIA; Aranap as ordered, Transfuse with next HD as needed especially if hemoglobin drops below 7 HTN by history: Currently documented blood pressures appear to be on the low side. Current BP meds as reviewed. BONE & MINERAL: Follow phosphorus levels and alter binder regimen as needed COMMENT/RELEVANT DATA Meds Current Medications Medications (Trade) Dose Ordered Sig/Clarence Start Time Stop Time Status Last Admin Dose Admin Acetaminophen (Tylenol) 650 mg PRN Q6HRS PRN 12/01/18 19:45 Acetaminophen/ Hydrocodone Bitart (Lortab 5/325) 2 tab PRN Q6HRS PRN 12/02/18 09:00 Albuterol Sulfate (Ventolin Neb Soln) 2.5 mg PRN Q4HRS PRN 12/01/18 19:30 Alprazolam (Xanax) 0.5 mg PRN TID PRN 12/01/18 19:30 12/01/18 21:16 0.5 MG Amlodipine Besylate (Norvasc) 10 mg DAILY 12/02/18 09:00 Amylase/Lipase/ Protease (Zenpep 5,000) 1 cap TIDWMEALS 12/02/18 08:00 Atorvastatin Calcium (Lipitor) 40 mg HS 12/01/18 21:00 12/01/18 21:16 40 MG Carvedilol (Coreg) 6.25 mg BIDWMEALS 12/02/18 08:00 Ceftriaxone Sodium (Rocephin) 1 gm Q24H 12/01/18 20:00 12/01/18 21:16 1 GM Clonidine HCl (Catapres Tts-2) 1 patch WEEKLY 12/08/18 09:00 Famotidine (Pepcid) 20 mg HS 12/01/18 21:00 12/01/18 21:16 20 MG Fentanyl Citrate (Fentanyl 2ml Vial) 75 mcg PRN Q2HR PRN 12/02/18 09:00 12/03/18 08:59 Latanoprost (Xalatan) 1 drop HS 12/01/18 21:00 12/01/18 21:16 1 DROP Levothyroxine Sodium (Synthroid) 50 mcg DAILY 12/02/18 09:00 Lisinopril (Prinivil) 20 mg DAILY 12/02/18 09:00 Non-Formulary Medication ([Pantoprazole] ) 40 mg DAILYAC 12/02/18 07:30 UNV Ondansetron HCl (Zofran) 4 mg PRN Q8HRS PRN 12/01/18 16:30 12/02/18 16:29 Pharmacy Consult (C.diff Med Screen By Rx) 1 each 1X ONCE 12/01/18 18:15 12/01/18 18:21 DC Prochlorperazine Maleate (Compazine) 5 mg PRN TID PRN 12/01/18 19:30 Sertraline HCl (Zoloft) 50 mg DAILY 12/02/18 09:00 Vitamin B Complex/ Vitamin C (Pinky-Shreya) 1 tab DAILY 12/02/18 09:00 Lab Laboratory Tests Test 12/01/18 15:54 12/01/18 18:15 12/01/18 21:20 White Blood Count 12.2 x10^3/uL (4.0-11.0) Red Blood Count 2.62 x10^6/uL (3.50-5.40) Hemoglobin 8.2 g/dL (12.0-15.5) Hematocrit 23.9 % (36.0-47.0) Mean Corpuscular Volume 91 fL (79-100) Mean Corpuscular Hemoglobin 31 pg (25-35) Mean Corpuscular Hemoglobin Concent 34 g/dL (31-37) Red Cell Distribution Width 17.2 % (11.5-14.5) Platelet Count 357 x10^3/uL (140-400) Neutrophils (%) (Auto) 80 % (31-73) Lymphocytes (%) (Auto) 11 % (24-48) Monocytes (%) (Auto) 8 % (0-9) Eosinophils (%) (Auto) 1 % (0-3) Basophils (%) (Auto) 1 % (0-3) Neutrophils # (Auto) 9.7 x10^3/uL (1.8-7.7) Lymphocytes # (Auto) 1.4 x10^3/uL (1.0-4.8) Monocytes # (Auto) 0.9 x10^3/uL (0.0-1.1) Eosinophils # (Auto) 0.1 x10^3/uL (0.0-0.7) Basophils # (Auto) 0.1 x10^3/uL (0.0-0.2) Sodium Level 140 mmol/L (136-145) Potassium Level 4.4 mmol/L (3.5-5.1) Chloride Level 99 mmol/L (98-107) Carbon Dioxide Level 26 mmol/L (21-32) Anion Gap 15 (6-14) Blood Urea Nitrogen 34 mg/dL (7-20) Creatinine 6.7 mg/dL (0.6-1.0) Estimated GFR (Cockcroft-Gault) 7.7 BUN/Creatinine Ratio 5 (6-20) Glucose Level 143 mg/dL (70-99) Lactic Acid Level 0.7 mmol/L (0.4-2.0) Calcium Level 9.0 mg/dL (8.5-10.1) Total Bilirubin 0.3 mg/dL (0.2-1.0) Aspartate Amino Transf (AST/SGOT) 22 U/L (15-37) Alanine Aminotransferase (ALT/SGPT) 23 U/L (14-59) Alkaline Phosphatase 85 U/L (46-116) Total Protein 7.5 g/dL (6.4-8.2) Albumin 2.9 g/dL (3.4-5.0) Albumin/Globulin Ratio 0.6 (1.0-1.7) Glucose (Fingerstick) 123 mg/dL (70-99) 144 mg/dL (70-99) Results All relevant outside records, renal labs, imaging studies, telemetry/EKG's were reviewed. PAOLA YATES MD Dec 02, 2018 09:20
[2018-12-02] MEDS: SERTRALINE 50 MG TABLET. PO SCH (09:28)
[2018-12-02] MEDS: LEVOTHYROXINE 50 MCG TABLET PO SCH (09:28)
[2018-12-02] MEDS: FOLIC/VIT B COMP W-C (RENAL) TABLET. PO SCH (09:28)
[2018-12-02] MEDS ORDERED: MAGNESIUM SULFATE 2GM 50 ML IV PRN (09:30)
[2018-12-02 11:35] VITALS: BP 146/41
--- NOTE | 2018-12-02 12:59 | NUR ---
Pharmacy Medication Review S: Consulted for medication review re: C.diff Risk Assessment score of 4 O: OTTONIEL SMITH is a 58 year old with: Previous C.diff infection: No Previous hospitalization: Within 30 days Recent antibiotics: Within 30 days Use of gastric acid suppressor: No Transfer from PR/LTAC: No Current antibiotic regimen: Rocephin 1g q24h Current acid suppression regimen: famotidine A: Patient has been identified as having risk factors for C.diff infection as noted above. P: Antibiotic Regimen recommendation made: no Probiotic ordered: yes PPI changed to [id number]: n/a Sanam Whitaker [facility], 12/02/18 [id number]
[2018-12-02 14:42] VITALS: BP 144/78
[2018-12-02 19:10] VITALS: BP 162/40
[2018-12-02] MEDS: LACTOBACILLUS RHAMNOSUS GG 1 CAPSULE. PO SCH (20:57)
[2018-12-02] MEDS: FAMOTIDINE 20 MG TABLET. PO SCH (20:57)
[2018-12-02] MEDS: LATANOPROST 0.005% OPHTH SOLUTION 2.5ML BOTTLE. OU SCH (20:57)
[2018-12-02] MEDS: ATORVASTATIN CALCIUM 40 MG TABLET. PO SCH (20:57)
[2018-12-02] MEDS: cefTRIAXone IV Push 1 GM VIAL. IVP SCH (20:58)
[2018-12-02] MEDS: DARBEPOETIN ALFA 60 MCG/0.3 ML DISP.SYRIN. SQ SCH (20:59)
[2018-12-02] MEDS: ALPRAZolam 0.5 MG TABLET PO PRN (21:16)
[2018-12-02 23:10] VITALS: BP 168/52
[2018-12-03] VITALS (7 sets, daily range): BP systolic 146–187; BP diastolic 53–112
[2018-12-03] MEDS: fentaNYL PF VIAL 100 MCG/2 ML VIAL IV PRN ×8 (01:06→19:56)
[2018-12-03] MEDS: CARVEDILOL 6.25 MG TABLET. PO SCH ×2 (08:00→17:00)
[2018-12-03] MEDS: LACTOBACILLUS RHAMNOSUS GG 1 CAPSULE. PO SCH ×2 (09:00→19:53)
[2018-12-03] MEDS: FOLIC/VIT B COMP W-C (RENAL) TABLET. PO SCH (09:00)
[2018-12-03] MEDS: LISINOPRIL 20 MG TABLET PO SCH (09:00)
[2018-12-03] MEDS: amLODIPine BESYLATE 5 MG TABLET PO SCH (09:00)
[2018-12-03] MEDS: SERTRALINE 50 MG TABLET. PO SCH (09:00)
[2018-12-03] MEDS: LEVOTHYROXINE 50 MCG TABLET PO SCH (09:00)
[2018-12-03] MEDS ORDERED: fentaNYL PF VIAL 100 MCG/2 ML VIAL ONE (09:45)
[2018-12-03] MEDS ORDERED: IV NORMAL SALINE 1000ML BAG 1,000 ML IV PRN ×2 (10:12)
[2018-12-03] MEDS ORDERED: DIALYSIS PATIENT. MC PRN ×2 (10:15)
[2018-12-03] MEDS ORDERED: 0.9 % SODIUM CHLORIDE 10 ML DISP.SYRIN. IV PRN ×2 (10:15)
[2018-12-03] MEDS ORDERED: ALBUMIN HUMAN 25% 200 ML IV PRN (10:15)
--- NOTE | 2018-12-03 10:43 | PDOC ---
PROGRESS NOTES Chief Complaint Chief Complaint Gangrene of right FOOT 3 toes of foot. 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 - RECENT needs local wound care Dyslipidemia malnutrition polysubstance abuse hx Diffuse moderate to advanced atherosclerotic plaque in the lower EXT arteries with moderate stenosis in the mid SFA, Right lower extremity angiography with subsequent angioplasty of the right superficial femoral artery and anterior tibial artery SEPTEMBER 2018 History of Present Illness History of Present Illness surg planned, BKA planned for AM pain up, blood pressure up due to pain, fentanyl dose increase, change to hydrocodone 10 vascular following Vitals Vitals Vital Signs Date Time Temp Pulse Resp B/P (MAP) Pulse Ox O2 Delivery O2 Flow Rate FiO2 12/03/18 09:48 97 Room Air 12/03/18 07:00 97.3 64 18 146/112 (123) 97.3 Physical Exam General: Alert, Oriented X3, Cooperative, mild distress Heart: No murmurs Abdomen: Soft Extremities: Other (ischemic limb) Skin: No rashes, Other Labs LABS Laboratory Tests Test 12/02/18 16:37 12/02/18 20:58 Glucose (Fingerstick) 106 mg/dL (70-99) 148 mg/dL (70-99) Assessment and Plan Assessmemt and Plan Problems Medical Problems: (1) Acute anemia Status: Acute (2) Anasarca Status: Acute (3) ESRD on dialysis Status: Chronic (4) Gangrene of toe of right foot Status: Acute Comment Review of Relevant I have reviewed the following items pamela (where applicable) has been applied. Labs Laboratory Tests Test 12/01/18 15:54 12/01/18 18:15 12/01/18 21:20 12/02/18 16:37 White Blood Count 12.2 x10^3/uL (4.0-11.0) Red Blood Count 2.62 x10^6/uL (3.50-5.40) Hemoglobin 8.2 g/dL (12.0-15.5) Hematocrit 23.9 % (36.0-47.0) Mean Corpuscular Volume 91 fL (79-100) Mean Corpuscular Hemoglobin 31 pg (25-35) Mean Corpuscular Hemoglobin Concent 34 g/dL (31-37) Red Cell Distribution Width 17.2 % (11.5-14.5) Platelet Count 357 x10^3/uL (140-400) Neutrophils (%) (Auto) 80 % (31-73) Lymphocytes (%) (Auto) 11 % (24-48) Monocytes (%) (Auto) 8 % (0-9) Eosinophils (%) (Auto) 1 % (0-3) Basophils (%) (Auto) 1 % (0-3) Neutrophils # (Auto) 9.7 x10^3/uL (1.8-7.7) Lymphocytes # (Auto) 1.4 x10^3/uL (1.0-4.8) Monocytes # (Auto) 0.9 x10^3/uL (0.0-1.1) Eosinophils # (Auto) 0.1 x10^3/uL (0.0-0.7) Basophils # (Auto) 0.1 x10^3/uL (0.0-0.2) Sodium Level 140 mmol/L (136-145) Potassium Level 4.4 mmol/L (3.5-5.1) Chloride Level 99 mmol/L (98-107) Carbon Dioxide Level 26 mmol/L (21-32) Anion Gap 15 (6-14) Blood Urea Nitrogen 34 mg/dL (7-20) Creatinine 6.7 mg/dL (0.6-1.0) Estimated GFR (Cockcroft-Gault) 7.7 BUN/Creatinine Ratio 5 (6-20) Glucose Level 143 mg/dL (70-99) Lactic Acid Level 0.7 mmol/L (0.4-2.0) Calcium Level 9.0 mg/dL (8.5-10.1) Total Bilirubin 0.3 mg/dL (0.2-1.0) Aspartate Amino Transf (AST/SGOT) 22 U/L (15-37) Alanine Aminotransferase (ALT/SGPT) 23 U/L (14-59) Alkaline Phosphatase 85 U/L (46-116) Total Protein 7.5 g/dL (6.4-8.2) Albumin 2.9 g/dL (3.4-5.0) Albumin/Globulin Ratio 0.6 (1.0-1.7) Glucose (Fingerstick) 123 mg/dL (70-99) 144 mg/dL (70-99) 106 mg/dL (70-99) Test 12/02/18 20:58 Glucose (Fingerstick) 148 mg/dL (70-99) Laboratory Tests Test 12/02/18 16:37 12/02/18 20:58 Glucose (Fingerstick) 106 mg/dL (70-99) 148 mg/dL (70-99) Microbiology 12/01/18 Blood Culture - Preliminary, Resulted NO GROWTH AFTER 1 DAY Medications Current Medications Fentanyl Citrate (Fentanyl 2ml Vial) 50 mcg 1X STAT IV Last administered on 12/01/18at 15:29; Start 12/01/18 at 15:21; Stop 12/01/18 at 15:23; Status DC Fentanyl Citrate (Fentanyl 2ml Vial) 50 mcg 1X STAT IV Last administered on 12/01/18at 16:24; Start 12/01/18 at 16:09; Stop 12/01/18 at 16:11; Status DC Ondansetron HCl (Zofran) 4 mg PRN Q8HRS PRN IV NAUSEA/VOMITING; Start 12/01/18 at 16:30; Stop 12/02/18 at 16:29; Status DC Fentanyl Citrate (Fentanyl 2ml Vial) 50 mcg PRN Q1HR PRN IV PAIN Last administered on 12/02/18at 07:33; Start 12/01/18 at 16:30; Stop 12/02/18 at 08:48; Status DC Pharmacy Consult (C.diff Med Screen By Rx) 1 each 1X ONCE [facility] ; Start 12/01/18 at 18:15; Stop 12/01/18 at 18:16; Status Cancel Albuterol Sulfate (Ventolin Neb Soln) 2.5 mg PRN Q4HRS PRN NEB SHORTNESS OF BREATH; Start 12/01/18 at 19:30 Alprazolam (Xanax) 0.5 mg PRN TID PRN PO ANXIETY / AGITATION Last administered on 12/02/18at 21:16; Start 12/01/18 at 19:30 Amlodipine Besylate (Norvasc) 10 mg DAILY PO ; Start 12/02/18 at 09:00 Atorvastatin Calcium (Lipitor) 40 mg HS PO Last administered on 12/02/18at 21:00; Start 12/01/18 at 21:00 Carvedilol (Coreg) 6.25 mg BIDWMEALS PO Last administered on 12/02/18 17:01; Start 12/02/18 at 08:00 Clonidine HCl (Catapres Tts-2) 1 patch WEEKLY TD ; Start 12/08/18 at 09:00 Acetaminophen/ Hydrocodone Bitart (Lortab 5/325) 1 tab BID PO ; Start 12/01/18 at 21:00; Status Cancel Acetaminophen/ Hydrocodone Bitart (Lortab 5/325) 1 tab PRN Q6HRS PRN PO PAIN Last administered on 12/02/18 04:43; Start 12/01/18 at 19:30; Stop 12/02/18 at 08:48; Status DC Latanoprost (Xalatan) 1 drop HS OU Last administered on 12/02/18 21:00; Start 12/01/18 at 21:00 Levothyroxine Sodium (Synthroid) 50 mcg DAILY PO Last administered on 12/02/18 09:30; Start 12/02/18 at 09:00 Lisinopril (Prinivil) 20 mg DAILY PO ; Start 12/02/18 at 09:00 Prochlorperazine Maleate (Compazine) 5 mg PRN TID PRN PO NAUSEA; Start 12/01/18 at 19:30 Sertraline HCl (Zoloft) 50 mg DAILY PO Last administered on 12/02/18at 09:30; Start 12/02/18 at 09:00 Acetaminophen (Tylenol) 650 mg PRN Q6HRS PRN PO MILD PAIN / TEMP; Start 12/01/18 at 19:45 Amylase/Lipase/ Protease (Zenpep 5,000) 1 cap TIDWMEALS PO Last administered on 12/02/18at 17:01; Start 12/02/18 at 08:00 Famotidine (Pepcid) 20 mg HS PO Last administered on 12/02/18 21:00; Start 12/01/18 at 21:00 Non-Formulary Medication ([Pantoprazole] ) 40 mg DAILYAC PO ; Start 12/02/18 at 07:30; Status UNV Ceftriaxone Sodium (Rocephin) 1 gm Q24H IVP Last administered on 12/02/18 21:00; Start 12/01/18 at 20:00 Vitamin B Complex/ Vitamin C (Pinky-Shreya) 1 tab DAILY PO Last administered on 12/02/18at 09:30; Start 12/02/18 at 09:00 Fentanyl Citrate (Fentanyl 2ml Vial) 75 mcg PRN Q2HR PRN IV PAIN Last admi nistered on 12/03/18at 07:36; Start 12/02/18 at 09:00; Stop 12/03/18 at 08:59; Status DC Acetaminophen/ Hydrocodone Bitart (Lortab 5/325) 2 tab PRN Q6HRS PRN PO MODERATE - SEVERE PAIN Last administered on 12/02/18at 18:55; Start 12/02/18 at 09:00 Magnesium Sulfate 50 ml @ 25 mls/hr PRN DAILY PRN IV for Mag < 1.7 on am labs; Start 12/02/18 at 09:30 Darbepoetin Jarrett (ARANESP for DIALYSIS PTS) 60 mcg WEEKLYHS SQ Last administered on 12/02/18at 21:00; Start 12/02/18 at 21:00 Lactobacillus Rhamnosus (Culturelle) 1 cap BID PO Last administered on 12/02/18at 21:00; Start 12/02/18 at 21:00 Fentanyl Citrate (Fentanyl 2ml Vial) 100 mcg PRN Q2HR PRN IV PAIN Last administered on 12/03/18at 09:48; Start 12/03/18 at 09:45 Fentanyl Citrate (Fentanyl 2ml Vial) 100 mcg STK-MED ONCE .ROUTE ; Start 12/03/18 at 09:45; Stop 12/03/18 at 09:45; Status DC Sodium Chloride 1,000 ml @ 1,000 mls/hr Q1H PRN IV hypotension; Start 12/03/18 at 10:12; Stop 12/03/18 at 16:11 Albumin Human 200 ml @ 200 mls/hr 1X PRN PRN IV Hypotension; Start 12/03/18 at 10:15; Stop 12/03/18 at 16:14 Sodium Chloride (Normal Saline Flush) 10 ml 1X PRN PRN IV AP catheter pack; Start 12/03/18 at 10:15; Stop 12/04/18 at 10:14 Sodium Chloride (Normal Saline Flush) 10 ml 1X PRN PRN IV DELI WORKER catheter pack; Start 12/03/18 at 10:15; Stop 12/04/18 at 10:14 Sodium Chloride 1,000 ml @ 400 mls/hr Q2H30M PRN IV PATENCY; Start 12/03/18 at 10:12; Stop 12/03/18 at 22:11 Info (PHARMACY MONITORING -- do not chart) 1 each PRN DAILY PRN [facility] SEE COMMENTS; Start 12/03/18 at 10:15; Status UNV Info (PHARMACY MONITORING -- do not chart) 1 each PRN DAILY PRN [facility] SEE COMMENTS; Start 12/03/18 at 10:15 Active Scripts Active Tylenol (Acetaminophen) 325 Mg Capsule 650 Mg PO Q6-8HRS PRN [place] 5-325 Tablet (Acetaminophen/Hydrocodone Bitart) 1 Each Tablet 1 Tab PO BID 5 Days [place] 5-325 Tablet (Acetaminophen/Hydrocodone Bitart) 1 Each Tablet 1 Tab PO PRN Q6HRS PRN Alprazolam 0.5 Mg Tablet 0.5 Mg PO PRN TID PRN MDD 1 Zantac (Ranitidine Hcl) 300 Mg Tablet 1 Tab PO QHS Compazine (Prochlorperazine Maleate) 5 Mg Tablet 5 Mg PO PRN TID PRN 10 Days [Pantoprazole] 40 MG Tablet. 40 Mg PO DAILYAC 30 Days Reported Zoloft (Sertraline Hcl) 50 Mg Tablet 50 Mg PO DAILY Lisinopril 20 Mg Tablet 20 Mg PO DAILY Coreg (Carvedilol) 6.25 Mg Tablet 6.25 Mg PO BIDWMEALS Creon 6,000 Units Capsule (Lipase/Protease/Amylase) 1 Each Capsule. 1 Tab PO TID Proair Hfa (Albuterol Sulfate) 8.5 Gm Hfa.aer.ad 2 Puff INH BID PRN Levothyroxine Sodium 50 Mcg Tablet 1 Tab PO DAILY Clonidine Tts-2 (Clonidine) 1 Each Patch.tdwk 1 Patch TD WEEKLY Amlodipine Besylate 5 Mg Tablet 10 Mg PO DAILY Atorvastatin Calcium 40 Mg Tablet 40 Mg PO HS Latanoprost 2.5 Ml Drops 1 Drop EACHEYE HS Vitals/I & O Vital Sign - Last 24 Hours 12/02/18 12/02/18 12/02/18 12/02/18 11:35 12:21 13:37 14:42 Pulse 60 58 Resp 17 B/P (MAP) 146/41 (76) 144/78 (100) Pulse Ox 94 94 94 97 O2 Delivery Room Air Room Air Room Air Room Air 12/02/18 12/02/18 12/02/18 12/02/18 15:18 16:29 17:01 17:01 Pulse 58 Resp 17 B/P (MAP) 144/78 Pulse Ox 94 97 O2 Delivery Room Air Room Air Room Air 12/02/18 12/02/18 12/02/18 12/02/18 18:55 18:55 19:10 20:05 Temp 98.2 98.2 Pulse 61 Resp 18 B/P (MAP) 162/40 (80) Pulse Ox 97 97 97 O2 Delivery Room Air Room Air Room Air Room Air 12/02/18 12/02/18 12/02/18 12/02/18 21:04 22:03 22:04 22:04 Resp 18 18 16 16 Pulse Ox 97 97 97 97 O2 Delivery Room Air Room Air Room Air Room Air 12/02/18 12/02/18 12/02/18 12/03/18 23:05 23:10 23:48 01:07 Temp 98.2 98.2 Pulse 60 Resp 16 18 16 16 B/P (MAP) 168/52 (90) Pulse Ox 97 98 97 97 O2 Delivery Room Air Room Air Room Air Room Air 12/03/18 12/03/18 12/03/18 12/03/18 03:10 03:12 04:27 04:27 Pulse 60 Resp 18 16 16 16 B/P (MAP) 169/56 (93) Pulse Ox 97 97 O2 Delivery Room Air Room Air 12/03/18 12/03/18 12/03/18 12/03/18 05:18 06:04 07:00 07:36 Temp 97.3 97.3 Pulse 64 Resp 16 18 18 B/P (MAP) 146/112 (123) Pulse Ox 97 97 97 97 O2 Delivery Room Air Room Air Room Air Room Air 12/03/18 12/03/18 12/03/18 08:00 08:53 09:48 Pulse Ox 97 97 O2 Delivery Room Air Room Air Room Air Intake and Output 12/02/18 12/02/18 12/03/18 14:59 22:59 06:59 Intake Total 40 ml 420 ml Output Total 200 ml Balance -200 ml 40 ml 420 ml HARDEEP MUÑOZ MD Dec 03, 2018 10:43
--- NOTE | 2018-12-03 13:49 | NUR ---
SW following pt for dc planning. Chart reviewed. Pt has a frequent hospitalization and usually leaves AMA. Spoke with Nicole and confirmed Pt has OP HD at [facility] on [address], phone: [phone], fax: [phone]. Will continue to follow pending dc needs.
[2018-12-03] MEDS: HYDROcodone/APAP 10/325 1 TAB TABLET PO PRN ×2 (14:05→20:05)
--- NOTE | 2018-12-03 14:32 | PDOC ---
Provider Note Provider Note Vascular S: Patient continues to complain of right foot pain. O: Awake and alert VSS, afebrile Right foot with dry gangrene of 3 toes, limited motion of the toes. Left fifth toe poorly healing amputation site. A/P: Right foot gangrene, the patient is not a candidate for revascularization, recommend right below knee amputation. Continue to monitor left foot. Patient may need angiogram with intervention in the near future. Tentatively scheduled for Monday, discussed with patient and family and she is willing to proceed. Acute/Chronic Anemia Hgb 8.2. Will plan transfusion during dialysis prior to amputation. NALLELY FERNANDES APRN Dec 03, 2018 14:32
--- NOTE | 2018-12-03 16:56 | PDOC ---
Renal-Progress Notes Subjective Notes Notes NONE History of Present Illness Hx of present illness NO CHANGE Vitals Vitals Vital Signs Date Time Temp Pulse Resp B/P (MAP) Pulse Ox O2 Delivery O2 Flow Rate FiO2 12/03/18 15:59 100 Room Air 12/03/18 15:00 98.1 80 18 187/54 (98) 98.1 Weight Weight [ ] I.O. Intake and Output Intake and Output 12/03/18 07:00 Intake Total 460 ml Output Total 200 ml Balance 260 ml Intake Oral 460 ml Output Urine Total 200 ml Labs Labs Laboratory Tests Test 12/02/18 20:58 12/03/18 11:43 12/03/18 15:30 Glucose (Fingerstick) 148 mg/dL (70-99) 176 mg/dL (70-99) Hemoglobin 7.9 g/dL (12.0-15.5) Magnesium Level 2.2 mg/dL (1.8-2.4) Micro Micro Microbiology 12/01/18 Blood Culture - Preliminary, Resulted NO GROWTH AFTER 2 DAYS Review of Systems Constitutional: yes: alert, oriented Ears/Nose/Throat: Yes: no symptom reported Pulmonary: Yes no symptom reported Cardiovascular: Yes no symptom reported Gastrointestional: Yes: no symptom reported Genitourinary: Yes: no symptom reported Musculoskeletal: Yes: foot pain, joint pain Psychiatric/Neurological: Yes: no symptom reported Physical Exam General Appearance: alert, oriented Skin: warm Respiratory: bilateral CTA Abdomen: bowel sounds present Genitourinary: bladder flat Extremities: pulses present Neurology: alert Assessment Assessment IMP ESRD ANEMIA HTN NON COMPLIANCE RIGHT FOOT GANGRENE SEVERE PAD PLAN HD TODAY UF TO DW ENC COMPLIANCE SUPPORTIVE CARE BENY PAINTER MD Dec 03, 2018 16:56
[2018-12-03] MEDS: cefTRIAXone IV Push 1 GM VIAL. IVP SCH (19:52)
[2018-12-03] MEDS: LATANOPROST 0.005% OPHTH SOLUTION 2.5ML BOTTLE. OU SCH (19:52)
[2018-12-03] MEDS: ATORVASTATIN CALCIUM 40 MG TABLET. PO SCH (19:53)
[2018-12-03] MEDS: ALPRAZolam 0.5 MG TABLET PO PRN (19:53)
[2018-12-03] MEDS: FAMOTIDINE 20 MG TABLET. PO SCH (19:55)
[2018-12-04] MEDS: fentaNYL PF VIAL 100 MCG/2 ML VIAL IV PRN ×11 (00:30→23:54)
[2018-12-04] MEDS: HYDROcodone/APAP 10/325 1 TAB TABLET PO PRN ×2 (01:56→07:51)
[2018-12-04 03:00] VITALS: BP 195/44
[2018-12-04] MEDS: ALPRAZolam 0.5 MG TABLET PO PRN ×3 (05:40→21:48)
[2018-12-04 07:00] VITALS: BP 157/50
[2018-12-04] MEDS: LACTOBACILLUS RHAMNOSUS GG 1 CAPSULE. PO SCH ×2 (08:05→21:47)
[2018-12-04] MEDS: FOLIC/VIT B COMP W-C (RENAL) TABLET. PO SCH (08:06)
[2018-12-04] MEDS: CARVEDILOL 6.25 MG TABLET. PO SCH ×2 (08:06→17:19)
[2018-12-04] MEDS: LEVOTHYROXINE 50 MCG TABLET PO SCH (08:06)
[2018-12-04] MEDS: LISINOPRIL 20 MG TABLET PO SCH (08:07)
[2018-12-04] MEDS: SERTRALINE 50 MG TABLET. PO SCH (08:07)
[2018-12-04] MEDS: amLODIPine BESYLATE 5 MG TABLET PO SCH (08:07)
[2018-12-04 08:22] LABS: HEMATOCRIT 24.4 % (36.0-47.0); HEMOGLOBIN 8.4 g/dL (12.0-15.5); RED BLOOD COUNT 2.7 x10^6/uL (3.50-5.40); RED CELL DISTRIBUTION WIDTH 17.4 % (11.5-14.5); WHITE BLOOD COUNT 8.2 x10^3/uL (4.0-11.0)
[2018-12-04 09:19] LABS: PROTHROMBIN TIME PATIENT 13.6 SEC (11.7-14.0)
[2018-12-04 11:00] VITALS: BP 150/50
--- NOTE | 2018-12-04 12:28 | PDOC ---
PROGRESS NOTES Chief Complaint Chief Complaint Gangrene of right FOOT 3 toes of foot. 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 - RECENT needs local wound care Dyslipidemia malnutrition polysubstance abuse hx Diffuse moderate to advanced atherosclerotic plaque in the lower EXT arteries with moderate stenosis in the mid SFA, Right lower extremity angiography with subsequent angioplasty of the right superficial femoral artery and anterior tibial artery SEPTEMBER 2018 History of Present Illness History of Present Illness transferred out of tele Known to me, i did not awaken PLAN: BKA tmr, NPO post [place] PT.OT, post op labs MIght need snu, she might fight it can have hostile behavior Vitals Vitals Vital Signs Date Time Temp Pulse Resp B/P (MAP) Pulse Ox O2 Delivery O2 Flow Rate FiO2 12/04/18 11:00 98.1 64 16 150/50 (83) 96 Room Air 98.1 Physical Exam General: Alert, Oriented X3, Cooperative, mild distress Heart: Regular rate, Normal S1, Normal S2, No murmurs Lungs: Clear Abdomen: Soft Extremities: Other (ischemic limb) Skin: No rashes, Other Labs LABS Laboratory Tests Test 12/03/18 15:30 12/04/18 07:17 12/04/18 07:45 12/04/18 11:44 Hemoglobin 7.9 g/dL (12.0-15.5) 8.4 g/dL (12.0-15.5) Magnesium Level 2.2 mg/dL (1.8-2.4) 2.0 mg/dL (1.8-2.4) Glucose (Fingerstick) 136 mg/dL (70-99) 165 mg/dL (70-99) White Blood Count 8.2 x10^3/uL (4.0-11.0) Red Blood Count 2.70 x10^6/uL (3.50-5.40) Hematocrit 24.4 % (36.0-47.0) Mean Corpuscular Volume 90 fL (79-100) Mean Corpuscular Hemoglobin 31 pg (25-35) Mean Corpuscular Hemoglobin Concent 34 g/dL (31-37) Red Cell Distribution Width 17.4 % (11.5-14.5) Platelet Count 311 x10^3/uL (140-400) Prothrombin Time 13.6 SEC (11.7-14.0) Prothromb Time International Ratio 1.1 (0.8-1.1) Review of Systems Review of Systems asleep, i did not awaken Assessment and Plan Assessmemt and Plan Problems Medical Problems: (1) Acute anemia Status: Acute (2) Anasarca Status: Acute (3) ESRD on dialysis Status: Chronic (4) Gangrene of toe of right foot Status: Acute Comment Review of Relevant I have reviewed the following items pamela (where applicable) has been applied. Labs Laboratory Tests Test 12/02/18 16:37 12/02/18 20:58 12/03/18 11:43 12/03/18 15:30 Glucose (Fingerstick) 106 mg/dL (70-99) 148 mg/dL (70-99) 176 mg/dL (70-99) Hemoglobin 7.9 g/dL (12.0-15.5) Magnesium Level 2.2 mg/dL (1.8-2.4) Test 12/04/18 07:17 12/04/18 07:45 12/04/18 11:44 Glucose (Fingerstick) 136 mg/dL (70-99) 165 mg/dL (70-99) White Blood Count 8.2 x10^3/uL (4.0-11.0) Red Blood Count 2.70 x10^6/uL (3.50-5.40) Hemoglobin 8.4 g/dL (12.0-15.5) Hematocrit 24.4 % (36.0-47.0) Mean Corpuscular Volume 90 fL (79-100) Mean Corpuscular Hemoglobin 31 pg (25-35) Mean Corpuscular Hemoglobin Concent 34 g/dL (31-37) Red Cell Distribution Width 17.4 % (11.5-14.5) Platelet Count 311 x10^3/uL (140-400) Prothrombin Time 13.6 SEC (11.7-14.0) Prothromb Time International Ratio 1.1 (0.8-1.1) Magnesium Level 2.0 mg/dL (1.8-2.4) Laboratory Tests Test 12/03/18 15:30 12/04/18 07:17 12/04/18 07:45 12/04/18 11:44 Hemoglobin 7.9 g/dL (12.0-15.5) 8.4 g/dL (12.0-15.5) Magnesium Level 2.2 mg/dL (1.8-2.4) 2.0 mg/dL (1.8-2.4) Glucose (Fingerstick) 136 mg/dL (70-99) 165 mg/dL (70-99) White Blood Count 8.2 x10^3/uL (4.0-11.0) Red Blood Count 2.70 x10^6/uL (3.50-5.40) Hematocrit 24.4 % (36.0-47.0) Mean Corpuscular Volume 90 fL (79-100) Mean Corpuscular Hemoglobin 31 pg (25-35) Mean Corpuscular Hemoglobin Concent 34 g/dL (31-37) Red Cell Distribution Width 17.4 % (11.5-14.5) Platelet Count 311 x10^3/uL (140-400) Prothrombin Time 13.6 SEC (11.7-14.0) Prothromb Time International Ratio 1.1 (0.8-1.1) Microbiology 12/01/18 Blood Culture - Preliminary, Resulted NO GROWTH AFTER 2 DAYS Medications Current Medications Fentanyl Citrate (Fentanyl 2ml Vial) 50 mcg 1X STAT IV Last administered on 12/01/18at 15:29; Start 12/01/18 at 15:21; Stop 12/01/18 at 15:23; Status DC Fentanyl Citrate (Fentanyl 2ml Vial) 50 mcg 1X STAT IV Last administered on 12/01/18at 16:24; Start 12/01/18 at 16:09; Stop 12/01/18 at 16:11; Status DC Ondansetron HCl (Zofran) 4 mg PRN Q8HRS PRN IV NAUSEA/VOMITING; Start 12/01/18 at 16:30; Stop 12/02/18 at 16:29; Status DC Fentanyl Citrate (Fentanyl 2ml Vial) 50 mcg PRN Q1HR PRN IV PAIN Last administered on 12/02/18at 07:33; Start 12/01/18 at 16:30; Stop 12/02/18 at 08:48; Status DC Pharmacy Consult (C.diff Med Screen By Rx) 1 each 1X ONCE [facility] ; Start 12/01/18 at 18:15; Stop 12/01/18 at 18:16; Status Cancel Albuterol Sulfate (Ventolin Neb Soln) 2.5 mg PRN Q4HRS PRN NEB SHORTNESS OF BREATH; Start 12/01/18 at 19:30 Alprazolam (Xanax) 0.5 mg PRN TID PRN PO ANXIETY / AGITATION Last administered on 12/04/18 05:41; Start 12/01/18 at 19:30 Amlodipine Besylate (Norvasc) 10 mg DAILY PO Last administered on 12/04/18 08:08; Start 12/02/18 at 09:00 Atorvastatin Calcium (Lipitor) 40 mg HS PO Last administered on 12/03/18 19:56; Start 12/01/18 at 21:00 Carvedilol (Coreg) 6.25 mg BIDWMEALS PO Last administered on 12/04/18 08:08; Start 12/02/18 at 08:00 Clonidine HCl (Catapres Tts-2) 1 patch WEEKLY TD ; Start 12/08/18 at 09:00 Acetaminophen/ Hydrocodone Bitart (Lortab 5/325) 1 tab BID PO ; Start 12/01/18 at 21:00; Status Cancel Acetaminophen/ Hydrocodone Bitart (Lortab 5/325) 1 tab PRN Q6HRS PRN PO PAIN Last administered on 12/02/18 04:43; Start 12/01/18 at 19:30; Stop 12/02/18 at 08:48; Status DC Latanoprost (Xalatan) 1 drop HS OU Last administered on 12/03/18 19:56; Start 12/01/18 at 21:00 Levothyroxine Sodium (Synthroid) 50 mcg DAILY PO Last administered on 12/04/18 08:08; Start 12/02/18 at 09:00 Lisinopril (Prinivil) 20 mg DAILY PO Last administered on 12/04/18 08:08; Sta rt 12/02/18 at 09:00 Prochlorperazine Maleate (Compazine) 5 mg PRN TID PRN PO NAUSEA Last administered on 12/03/18 19:56; Start 12/01/18 at 19:30 Sertraline HCl (Zoloft) 50 mg DAILY PO Last administered on 12/04/18 08:08; Start 12/02/18 at 09:00 Acetaminophen (Tylenol) 650 mg PRN Q6HRS PRN PO MILD PAIN / TEMP; Start 12/01/18 at 19:45 Amylase/Lipase/ Protease (Zenpep 5,000) 1 cap TIDWMEALS PO Last administered on 12/04/18 08:31; Start 12/02/18 at 08:00 Famotidine (Pepcid) 20 mg HS PO Last administered on 12/03/18 19:56; Start 12/01/18 at 21:00 Non-Formulary Medication ([Pantoprazole] ) 40 mg DAILYAC PO ; Start 12/02/18 at 07:30; Status UNV Ceftriaxone Sodium (Rocephin) 1 gm Q24H IVP Last administered on 12/03/18 19:56; Start 12/01/18 at 20:00 Vitamin B Complex/ Vitamin C (Pinky-Srheya) 1 tab DAILY PO Last administered on 12/04/18 08:08; Start 12/02/18 at 09:00 Fentanyl Citrate (Fentanyl 2ml Vial) 75 mcg PRN Q2HR PRN IV PAIN Last administered on 12/03/18 07:36; Start 12/02/18 at 09:00; Stop 12/03/18 at 08:59; Status DC Acetaminophen/ Hydrocodone Bitart (Lortab 5/325) 2 tab PRN Q6HRS PRN PO MODERATE - SEVERE PAIN Last administered on 12/02/18 18:55; Start 12/02/18 at 09:00; Stop 12/03/18 at 10:41; Status DC Magnesium Sulfate 50 ml @ 25 mls/hr PRN DAILY PRN IV for Mag < 1.7 on am labs; Start 12/02/18 at 09:30 Darbepoetin Jarrett (ARANESP for DIALYSIS PTS) 60 mcg WEEKLYHS SQ Last administered on 12/02/18 21:00; Start 12/02/18 at 21:00 Lactobacillus Rhamnosus (Culturelle) 1 cap BID PO Last administered on 12/04/18 08:08; Start 12/02/18 at 21:00 Fentanyl Citrate (Fentanyl 2ml Vial) 100 mcg PRN Q2HR PRN IV PAIN Last administered on 12/04/18at 09:07; Start 12/03/18 at 09:45 Fentanyl Citrate (Fentanyl 2ml Vial) 100 mcg STK-MED ONCE .ROUTE ; Start 12/03/18 at 09:45; Stop 12/03/18 at 09:45; Status DC Sodium Chloride 1,000 ml @ 1,000 mls/hr Q1H PRN IV hypotension; Start 12/03/18 at 10:12; Stop 12/03/18 at 16:11; Status DC Albumin Human 200 ml @ 200 mls/hr 1X PRN PRN IV Hypotension; Start 12/03/18 at 10:15; Stop 12/03/18 at 16:14; Status DC Sodium Chloride (Normal Saline Flush) 10 ml 1X PRN PRN IV AP catheter pack; Start 12/03/18 at 10:15; Stop 12/04/18 at 10:14; Status DC Sodium Chloride (Normal Saline Flush) 10 ml 1X PRN PRN IV [employer] catheter pack; Start 12/03/18 at 10:15; Stop 12/04/18 at 10:14; Status DC Sodium Chloride 1,000 ml @ 400 mls/hr Q2H30M PRN IV PATENCY; Start 12/03/18 at 10:12; Stop 12/03/18 at 22:11; Status DC Info (PHARMACY MONITORING -- do not chart) 1 each PRN DAILY PRN [facility] SEE COMMENTS; Start 12/03/18 at 10:15; Status UNV Info (PHARMACY MONITORING -- do not chart) 1 each PRN DAILY PRN MC SEE COMMENTS; Start 12/03/18 at 10:15 Acetaminophen/ Hydrocodone Bitart (Lortab 10/325) 1 tab PRN Q4HRS PRN PO MODERATE TO SEVERE PAIN Last administered on 12/04/18at 07:53; Start 12/03/18 at 10:45 Ondansetron HCl (Zofran) 4 mg PRN Q6HRS PRN IV NAUSEA/VOMITING; Start 12/05/18 at 07:00; Stop 12/05/18 at 07:01 Fentanyl Citrate (Fentanyl 2ml Vial) 25 mcg PRN Q5MIN PRN IV MILD PAIN 1-3; Start 12/05/18 at 07:00; Stop 12/05/18 at 20:00 Fentanyl Citrate (Fentanyl 2ml Vial) 50 mcg PRN Q5MIN PRN IV MODERATE TO SEVERE PAIN; Start 12/05/18 at 07:00; Stop 12/05/18 at 20:00 Ringer's Solution 1,000 ml @ 30 mls/hr Q24H IV ; Start 12/05/18 at 07:00; Stop 12/05/18 at 18:59 Lidocaine HCl (Xylocaine-Mpf 1% 2ml Vial) 2 ml PRN 1X PRN ID PRIOR TO IV START; Start 12/05/18 at 07:00; Stop 12/05/18 at 20:00 Prochlorperazine Edisylate (Compazine) 5 mg PACU PRN PRN IV NAUSEA, MRX1; Start 12/05/18 at 07:00; Stop 12/05/18 at 20:00 Bacitracin 99930 unit/Sodium Chloride 500 ml @ 500 mls/hr 1X ONCE IRR ; Start 12/05/18 at 06:00; Stop 12/05/18 at 06:59 Active Scripts Active Tylenol (Acetaminophen) 325 Mg Capsule 650 Mg PO Q6-8HRS PRN Leonardo 5-325 Tablet (Acetaminophen/Hydrocodone Bitart) 1 Each Tablet 1 Tab PO BID 5 Days Leonardo 5-325 Tablet (Acetaminophen/Hydrocodone Bitart) 1 Each Tablet 1 Tab PO PRN Q6HRS PRN Alprazolam 0.5 Mg Tablet 0.5 Mg PO PRN TID PRN MDD 1 Zantac (Ranitidine Hcl) 300 Mg Tablet 1 Tab PO QHS Compazine (Prochlorperazine Maleate) 5 Mg Tablet 5 Mg PO PRN TID PRN 10 Days [Pantoprazole] 40 MG Tablet. 40 Mg PO DAILYAC 30 Days Reported Zoloft (Sertraline Hcl) 50 Mg Tablet 50 Mg PO DAILY Lisinopril 20 Mg Tablet 20 Mg PO DAILY Coreg (Carvedilol) 6.25 Mg Tablet 6.25 Mg PO [address] Dr 6,000 Units Capsule (Lipase/Protease/Amylase) 1 Each Capsule. 1 Tab PO TID Proair Hfa (Albuterol Sulfate) 8.5 Gm Hfa.aer.ad 2 Puff INH BID PRN Levothyroxine Sodium 50 Mcg Tablet 1 Tab PO DAILY Clonidine Tts-2 (Clonidine) 1 Each Patch.tdwk 1 Patch TD WEEKLY Amlodipine Besylate 5 Mg Tablet 10 Mg PO DAILY Atorvastatin Calcium 40 Mg Tablet 40 Mg PO HS Latanoprost 2.5 Ml Drops 1 Drop EACHEYE HS Vitals/I & O Vital Sign - Last 24 Hours 12/03/18 12/03/18 12/03/18 12/03/18 14:05 15:00 15:59 19:35 Temp 98.1 97.0 98.1 97.0 Pulse 80 70 Resp 18 B/P (MAP) 187/54 (98) 170/59 (96) Pulse Ox 97 100 100 98 O2 Delivery Room Air Room Air Room Air Room Air 12/03/18 12/03/18 12/03/18 12/03/18 19:56 20:00 20:06 20:24 Temp 97.7 97.7 Pulse 76 Resp 18 18 16 B/P (MAP) 184/56 (98) Pulse Ox 100 100 90 O2 Delivery Room Air Room Air Room Air Room Air 12/03/18 12/03/18 12/03/18 12/04/18 22:16 22:16 23:20 00:30 Pulse 66 Resp 18 18 18 18 B/P (MAP) 169/53 (91) Pulse Ox 90 90 97 97 O2 Delivery Room Air Room Air Room Air Room Air 12/04/18 12/04/18 12/04/18 12/04/18 01:47 01:56 02:58 03:00 Temp 98.1 98.1 Pulse 67 Resp 18 18 18 18 B/P (MAP) 195/44 (94) Pulse Ox 97 97 97 98 O2 Delivery Room Air Room Air Room Air Room Air 12/04/18 12/04/18 12/04/18 12/04/18 03:20 04:23 05:41 06:22 Resp 18 18 18 18 Pulse Ox 97 97 97 97 O2 Delivery Room Air Room Air Room Air Room Air 12/04/18 12/04/18 12/04/18 12/04/18 07:00 07:53 08:00 08:08 Pulse 63 63 Resp 18 18 B/P (MAP) 157/50 (85) 157/50 Pulse Ox 97 97 O2 Delivery Room Air Room Air Room Air 12/04/18 12/04/18 12/04/18 12/04/18 08:08 08:08 09:07 10:35 Pulse 63 63 Resp 20 20 B/P (MAP) 157/50 157/50 Pulse Ox 97 97 O2 Delivery Room Air Room Air 12/04/18 12/04/18 10:36 11:00 Temp 98.1 98.1 Pulse 64 Resp 20 16 B/P (MAP) 150/50 (83) Pulse Ox 96 O2 Delivery Room Air Room Air Intake and Output 12/03/18 12/03/18 12/04/18 15:00 23:00 07:00 Intake Total 120 ml 240 ml 120 ml Output Total 400 ml Balance -280 ml 240 ml 120 ml PRABHAKAR MOSQUERA MD Dec 04, 2018 12:28
--- NOTE | 2018-12-04 12:56 | PDOC ---
Renal-Progress Notes Subjective Notes Notes NO CHANGE History of Present Illness Hx of present illness STABLE Vitals Vitals Vital Signs Date Time Temp Pulse Resp B/P (MAP) Pulse Ox O2 Delivery O2 Flow Rate FiO2 12/04/18 11:00 98.1 64 16 150/50 (83) 96 Room Air 98.1 Weight Weight [ ] I.O. Intake and Output Intake and Output 12/04/18 06:59 Intake Total 480 ml Output Total 400 ml Balance 80 ml Intake Oral 480 ml Output Urine Total 400 ml # Voids 1 # Bowel Movements 1 Labs Labs Laboratory Tests Test 12/03/18 15:30 12/04/18 07:17 12/04/18 07:45 12/04/18 11:44 Hemoglobin 7.9 g/dL (12.0-15.5) 8.4 g/dL (12.0-15.5) Magnesium Level 2.2 mg/dL (1.8-2.4) 2.0 mg/dL (1.8-2.4) Glucose (Fingerstick) 136 mg/dL (70-99) 165 mg/dL (70-99) White Blood Count 8.2 x10^3/uL (4.0-11.0) Red Blood Count 2.70 x10^6/uL (3.50-5.40) Hematocrit 24.4 % (36.0-47.0) Mean Corpuscular Volume 90 fL (79-100) Mean Corpuscular Hemoglobin 31 pg (25-35) Mean Corpuscular Hemoglobin Concent 34 g/dL (31-37) Red Cell Distribution Width 17.4 % (11.5-14.5) Platelet Count 311 x10^3/uL (140-400) Prothrombin Time 13.6 SEC (11.7-14.0) Prothromb Time International Ratio 1.1 (0.8-1.1) Micro Micro Microbiology 12/01/18 Blood Culture - Preliminary, Resulted NO GROWTH AFTER 2 DAYS Review of Systems Constitutional: yes: alert, oriented Ears/Nose/Throat: Yes: no symptom reported Pulmonary: Yes no symptom reported Cardiovascular: Yes no symptom reported Gastrointestional: Yes: no symptom reported Genitourinary: Yes: no symptom reported Musculoskeletal: Yes: foot pain, joint pain Psychiatric/Neurological: Yes: no symptom reported Physical Exam General Appearance: alert, oriented Skin: warm Respiratory: bilateral CTA Abdomen: bowel sounds present Genitourinary: bladder flat Extremities: pulses present Neurology: alert Assessment Assessment IMP ESRD ANEMIA HTN NON COMPLIANCE RIGHT FOOT GANGRENE SEVERE PAD PLAN HD TOMORROW ENC COMPLIANCE WOUND CARE SUPPORTIVE CARE BENY PAINTER MD Dec 04, 2018 12:56
[2018-12-04 19:00] VITALS: BP 147/41
[2018-12-04] MEDS: ATORVASTATIN CALCIUM 40 MG TABLET. PO SCH (21:47)
[2018-12-04] MEDS: LATANOPROST 0.005% OPHTH SOLUTION 2.5ML BOTTLE. OU SCH (21:47)
[2018-12-04] MEDS: cefTRIAXone IV Push 1 GM VIAL. IVP SCH (21:47)
[2018-12-04] MEDS: FAMOTIDINE 20 MG TABLET. PO SCH (21:48)
--- NOTE | 2018-12-04 22:47 | NUR ---
This nurse had to undo a fentanyl administration because it was not saved at the correct time. This nurse manually put in the correct time. The Xanax was also manually put in because part of the bar code was missing and would not scan.
[2018-12-04 23:00] VITALS: BP 143/42
[2018-12-05] VITALS (15 sets, daily range): BP systolic 143–188; BP diastolic 42–90
[2018-12-05] MEDS: fentaNYL PF VIAL 100 MCG/2 ML VIAL IV PRN ×10 (01:58→22:42)
[2018-12-05] MEDS ORDERED: BACITRACIN 50,000 UNIT in IV NORMAL SALINE 500ML BAG 500 ML IRR ONE (06:00)
[2018-12-05] MEDS ORDERED: ONDANSETRON PF 4 MG/2 ML VIAL. IV PRN (07:00)
[2018-12-05] MEDS ORDERED: fentaNYL PF VIAL 100 MCG/2 ML VIAL IV PRN (07:00)
[2018-12-05] MEDS ORDERED: IV RINGERS,LACTATED 1000ML 1,000 ML IV SCH (07:00)
[2018-12-05] MEDS ORDERED: LIDOCAINE 1% PF 2 ML VIAL. ID PRN (07:00)
[2018-12-05] MEDS ORDERED: IV NORMAL SALINE 1000ML BAG 1,000 ML IV PRN ×2 (07:31)
[2018-12-05] MEDS ORDERED: diphenhydrAMINE 50 MG/ML VIAL IV PRN ×2 (07:45)
[2018-12-05] MEDS ORDERED: DIALYSIS PATIENT. MC PRN ×2 (07:45)
[2018-12-05] MEDS: CARVEDILOL 6.25 MG TABLET. PO SCH ×2 (08:00→16:42)
[2018-12-05 08:24] LABS: BASO # 0.1 x10^3/uL (0.0-0.2); BASO % 1 % (0-3); EOS # 0.1 x10^3/uL (0.0-0.7); EOS % 1 % (0-3); HEMATOCRIT 23.1 % (36.0-47.0); HEMOGLOBIN 7.7 g/dL (12.0-15.5); LYMPH # 1.6 x10^3/uL (1.0-4.8); LYMPH % 23 % (24-48); MEAN CORPUSCULAR HEMOGLOBIN 30 pg (25-35); MEAN CORPUSCULAR HGB CONC 33 g/dL (31-37); MEAN CORPUSCULAR VOLUME 91 fL (79-100); MONO # 0.8 x10^3/uL (0.0-1.1); MONO % 11 % (0-9); NEUT # 4.7 x10^3/uL (1.8-7.7); NEUT % 64 % (31-73); PLATELET COUNT 299 x10^3/uL (140-400); RED BLOOD COUNT 2.54 x10^6/uL (3.50-5.40); RED CELL DISTRIBUTION WIDTH 17.4 % (11.5-14.5); WHITE BLOOD COUNT 7.3 x10^3/uL (4.0-11.0)
[2018-12-05 08:37] LABS: ALBUMIN 2.1 g/dL (3.4-5.0); CALCIUM 8.2 mg/dL (8.5-10.1); CREATININE 5.6 mg/dL (0.6-1.0); GFR 9.5; PHOSPHORUS 5.3 mg/dL (2.6-4.7); POTASSIUM 4.2 mmol/L (3.5-5.1)
[2018-12-05] MEDS: LEVOTHYROXINE 50 MCG TABLET PO SCH ×2 (09:00→16:41)
[2018-12-05] MEDS: SERTRALINE 50 MG TABLET. PO SCH ×2 (09:00→16:41)
[2018-12-05] MEDS: FOLIC/VIT B COMP W-C (RENAL) TABLET. PO SCH (09:00)
[2018-12-05] MEDS: LISINOPRIL 20 MG TABLET PO SCH ×2 (09:00→16:40)
[2018-12-05] MEDS: amLODIPine BESYLATE 5 MG TABLET PO SCH ×2 (09:00→16:39)
[2018-12-05] MEDS: LACTOBACILLUS RHAMNOSUS GG 1 CAPSULE. PO SCH ×2 (09:00→20:16)
[2018-12-05] MEDS ORDERED: ONDANSETRON PF 4 MG/2 ML VIAL. IV STA (09:34)
--- NOTE | 2018-12-05 10:42 | PDOC ---
PROGRESS NOTES Chief Complaint Chief Complaint Gangrene of right FOOT 3 toes of foot. 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 - RECENT needs local wound care Dyslipidemia malnutrition polysubstance abuse hx Diffuse moderate to advanced atherosclerotic plaque in the lower EXT arteries with moderate stenosis in the mid SFA, Right lower extremity angiography with subsequent angioplasty of the right superficial femoral artery and anterior tibial artery SEPTEMBER 2018 RIGHT BKA PENDING 39 MIN PT EXAM, CHART REVIEW, > 50% OF TIME SPENT WITH EXAM, CHART REVIEW, PT CARE COORDINATION History of Present Illness History of Present Illness transferred out of tele Known to me, i did not awaken PLAN: LORY tmr, NPO post MN PT.OT, post op labs MIght need snu, she might fight it can have hostile behavior Vitals Vitals Vital Signs Date Time Temp Pulse Resp B/P (MAP) Pulse Ox O2 Delivery O2 Flow Rate FiO2 12/05/18 10:00 98.3 71 14 157/67 98.3 12/05/18 09:32 97 Room Air Physical Exam General: Alert, Oriented X3, Cooperative, mild distress Heart: Regular rate, Normal S1, Normal S2, No murmurs Lungs: Clear Abdomen: Normal bowel sounds, Soft, No hepatosplenomegaly Extremities: Other (ischemic limb) Skin: No rashes, Other Labs LABS PATIENT: OTTONIEL SMITH ACCT: [id number] LOC: [address] [place] [address] U: [id number] AGE/SX: 58/F ROOM: 569 RE12/01/[address]: SANGEETHA MUELLER MD : 1960 BED: 1 DIS: STATUS: ADM IN TLOC: SPEC #: [id number] FORREST: 12/01/18 STATUS: RES ELICIA #: [id number] RECD: 12/01/18-[address]: MARQUISE NARANJO APRN SOURCE: BLOOD ENTR: 12/01/18-[address]: OLINDA,STAFF [facility]: UNKNOWN PCP NAME ORDERED: BCULT Procedure Result BLOOD CULTURE Preliminary NO GROWTH AFTER 3 DAYS All elements of maximal sterile barrier technique including the use of a cap, mask, sterile gown, sterile gloves, large sterile sheet, appropriate hand hygiene, and 2% chlorhexidine for cutaneous antisepsis (or acceptable alternative antiseptic per current guidelines) were followed for this procedure. Timeout procedure was performed. The right inguinal region was prepped and draped using sterile barrier technique as described above. 1% lidocaine was measured for local anesthesia. Ultrasound evaluation demonstrates the left common femoral artery to be patent, though fairly calcified. The artery was accessed under direct ultrasound guidance. Reference ultrasound images were saved in the medical record. Micropuncture technique was used. A 5 Marshallese vascular sheath was placed. Angiograms of the access site demonstrated puncture in the mid left common femoral artery. An Omni flush catheter was advanced into the inferior minimal aorta and pelvic angiography was performed. No aortoiliac stenosis is seen. Catheter was repositioned in the right common femoral artery, and subsequently the superficial femoral artery. Right lower extremity angiography was performed demonstrating 50% stenosis of the proximal most right SFA secondary to an eccentric calcified plaque. More distal SFA is grossly patent. Popliteal artery is patent. There is single vessel runoff to the ankle via the anterior tibial artery. Posterior tibial artery and peroneal artery are occluded chronically. There is recurrent high-grade stenosis of the distal anterior tibial artery. Occlusion of the dorsalis pedis artery is seen just below the ankle. Angioplasty of the distal anterior tibial artery was performed with a 2 mm balloon with some improvement in morphology and flow through the region. In line flow through the dorsalis pedis artery could not be readily established. Angioplasty of the proximal SFA stenosis was performed with a 6 mm balloon. Morphology and flow through the lesion. The sheath was removed. A closure device was deployed at the left common femoral puncture site. No immediate complications were identified. Total fluoroscopy time: 15.8 min Dose area product: 78 Gycm2 Sedation was provided by the anesthesia department. Impression: 1. 50% stenosis, right superficial femoral artery treated with balloon angioplasty 2. High-grade stenosis distal anterior tibial artery treated with balloon angioplasty 3. Occlusion of the peroneal and posterior tibial artery. Occlusion of the dorsalis pedis artery. Blood flow to the right foot remains extremely, via small-caliber collaterals. Laboratory Tests Test 12/04/18 11:44 12/05/18 07:45 Glucose (Fingerstick) 165 mg/dL (70-99) White Blood Count 7.3 x10^3/uL (4.0-11.0) Red Blood Count 2.54 x10^6/uL (3.50-5.40) Hemoglobin 7.7 g/dL (12.0-15.5) Hematocrit 23.1 % (36.0-47.0) Mean Corpuscular Volume 91 fL (79-100) Mean Corpuscular Hemoglobin 30 pg (25-35) Mean Corpuscular Hemoglobin Concent 33 g/dL (31-37) Red Cell Distribution Width 17.4 % (11.5-14.5) Platelet Count 299 x10^3/uL (140-400) Neutrophils (%) (Auto) 64 % (31-73) Lymphocytes (%) (Auto) 23 % (24-48) Monocytes (%) (Auto) 11 % (0-9) Eosinophils (%) (Auto) 1 % (0-3) Basophils (%) (Auto) 1 % (0-3) Neutrophils # (Auto) 4.7 x10^3/uL (1.8-7.7) Lymphocytes # (Auto) 1.6 x10^3/uL (1.0-4.8) Monocytes # (Auto) 0.8 x10^3/uL (0.0-1.1) Eosinophils # (Auto) 0.1 x10^3/uL (0.0-0.7) Basophils # (Auto) 0.1 x10^3/uL (0.0-0.2) Sodium Level 140 mmol/L (136-145) Potassium Level 4.2 mmol/L (3.5-5.1) Chloride Level 102 mmol/L (98-107) Carbon Dioxide Level 29 mmol/L (21-32) Anion Gap 9 (6-14) Blood Urea Nitrogen 31 mg/dL (7-20) Creatinine 5.6 mg/dL (0.6-1.0) Estimated GFR (Cockcroft-Gault) 9.5 Glucose Level 109 mg/dL (70-99) Calcium Level 8.2 mg/dL (8.5-10.1) Phosphorus Level 5.3 mg/dL (2.6-4.7) Magnesium Level 2.0 mg/dL (1.8-2.4) Albumin 2.1 g/dL (3.4-5.0) Assessment and Plan Assessmemt and Plan Problems Medical Problems: (1) Acute anemia Status: Acute (2) Anasarca Status: Acute (3) ESRD on dialysis Status: Chronic (4) Gangrene of toe of right foot Status: Acute Comment Review of Relevant I have reviewed the following items pamela (where applicable) has been applied. Labs Laboratory Tests Test 12/03/18 11:43 12/03/18 15:30 12/04/18 07:17 12/04/18 07:45 Glucose (Fingerstick) 176 mg/dL (70-99) 136 mg/dL (70-99) Hemoglobin 7.9 g/dL (12.0-15.5) 8.4 g/dL (12.0-15.5) Magnesium Level 2.2 mg/dL (1.8-2.4) 2.0 mg/dL (1.8-2.4) White Blood Count 8.2 x10^3/uL (4.0-11.0) Red Blood Count 2.70 x10^6/uL (3.50-5.40) Hematocrit 24.4 % (36.0-47.0) Mean Corpuscular Volume 90 fL (79-100) Mean Corpuscular Hemoglobin 31 pg (25-35) Mean Corpuscular Hemoglobin Concent 34 g/dL (31-37) Red Cell Distribution Width 17.4 % (11.5-14.5) Platelet Count 311 x10^3/uL (140-400) Prothrombin Time 13.6 SEC (11.7-14.0) Prothromb Time International Ratio 1.1 (0.8-1.1) Test 12/04/18 11:44 12/05/18 07:45 Glucose (Fingerstick) 165 mg/dL (70-99) White Blood Count 7.3 x10^3/uL (4.0-11.0) Red Blood Count 2.54 x10^6/uL (3.50-5.40) Hemoglobin 7.7 g/dL (12.0-15.5) Hematocrit 23.1 % (36.0-47.0) Mean Corpuscular Volume 91 fL (79-100) Mean Corpuscular Hemoglobin 30 pg (25-35) Mean Corpuscular Hemoglobin Concent 33 g/dL (31-37) Red Cell Distribution Width 17.4 % (11.5-14.5) Platelet Count 299 x10^3/uL (140-400) Neutrophils (%) (Auto) 64 % (31-73) Lymphocytes (%) (Auto) 23 % (24-48) Monocytes (%) (Auto) 11 % (0-9) Eosinophils (%) (Auto) 1 % (0-3) Basophils (%) (Auto) 1 % (0-3) Neutrophils # (Auto) 4.7 x10^3/uL (1.8-7.7) Lymphocytes # (Auto) 1.6 x10^3/uL (1.0-4.8) Monocytes # (Auto) 0.8 x10^3/uL (0.0-1.1) Eosinophils # (Auto) 0.1 x10^3/uL (0.0-0.7) Basophils # (Auto) 0.1 x10^3/uL (0.0-0.2) Sodium Level 140 mmol/L (136-145) Potassium Level 4.2 mmol/L (3.5-5.1) Chloride Level 102 mmol/L (98-107) Carbon Dioxide Level 29 mmol/L (21-32) Anion Gap 9 (6-14) Blood Urea Nitrogen 31 mg/dL (7-20) Creatinine 5.6 mg/dL (0.6-1.0) Estimated GFR (Cockcroft-Gault) 9.5 Glucose Level 109 mg/dL (70-99) Calcium Level 8.2 mg/dL (8.5-10.1) Phosphorus Level 5.3 mg/dL (2.6-4.7) Magnesium Level 2.0 mg/dL (1.8-2.4) Albumin 2.1 g/dL (3.4-5.0) Laboratory Tests Test 12/04/18 11:44 12/05/18 07:45 Glucose (Fingerstick) 165 mg/dL (70-99) White Blood Count 7.3 x10^3/uL (4.0-11.0) Red Blood Count 2.54 x10^6/uL (3.50-5.40) Hemoglobin 7.7 g/dL (12.0-15.5) Hematocrit 23.1 % (36.0-47.0) Mean Corpuscular Volume 91 fL (79-100) Mean Corpuscular Hemoglobin 30 pg (25-35) Mean Corpuscular Hemoglobin Concent 33 g/dL (31-37) Red Cell Distribution Width 17.4 % (11.5-14.5) Platelet Count 299 x10^3/uL (140-400) Neutrophils (%) (Auto) 64 % (31-73) Lymphocytes (%) (Auto) 23 % (24-48) Monocytes (%) (Auto) 11 % (0-9) Eosinophils (%) (Auto) 1 % (0-3) Basophils (%) (Auto) 1 % (0-3) Neutrophils # (Auto) 4.7 x10^3/uL (1.8-7.7) Lymphocytes # (Auto) 1.6 x10^3/uL (1.0-4.8) Monocytes # (Auto) 0.8 x10^3/uL (0.0-1.1) Eosinophils # (Auto) 0.1 x10^3/uL (0.0-0.7) Basophils # (Auto) 0.1 x10^3/uL (0.0-0.2) Sodium Level 140 mmol/L (136-145) Potassium Level 4.2 mmol/L (3.5-5.1) Chloride Level 102 mmol/L (98-107) Carbon Dioxide Level 29 mmol/L (21-32) Anion Gap 9 (6-14) Blood Urea Nitrogen 31 mg/dL (7-20) Creatinine 5.6 mg/dL (0.6-1.0) Estimated GFR (Cockcroft-Gault) 9.5 Glucose Level 109 mg/dL (70-99) Calcium Level 8.2 mg/dL (8.5-10.1) Phosphorus Level 5.3 mg/dL (2.6-4.7) Magnesium Level 2.0 mg/dL (1.8-2.4) Albumin 2.1 g/dL (3.4-5.0) Microbiology 12/01/18 Blood Culture - Preliminary, Resulted NO GROWTH AFTER 3 DAYS Medications Current Medications Fentanyl Citrate (Fentanyl 2ml Vial) 50 mcg 1X STAT IV Last administered on 12/01/18at 15:29; Start 12/01/18 at 15:21; Stop 12/01/18 at 15:23; Status DC Fentanyl Citrate (Fentanyl 2ml Vial) 50 mcg 1X STAT IV Last administered on 12/01/18at 16:24; Start 12/01/18 at 16:09; Stop 12/01/18 at 16:11; Status DC Ondansetron HCl (Zofran) 4 mg PRN Q8HRS PRN IV NAUSEA/VOMITING; Start 12/01/18 at 16:30; Stop 12/02/18 at 16:29; Status DC Fentanyl Citrate (Fentanyl 2ml Vial) 50 mcg PRN Q1HR PRN IV PAIN Last administered on 12/02/18 07:33; Start 12/01/18 at 16:30; Stop 12/02/18 at 08:48; Status DC Pharmacy Consult (C.diff Med Screen By Rx) 1 each 1X ONCE MC ; Start 12/01/18 at 18:15; Stop 12/01/18 at 18:16; Status Cancel Albuterol Sulfate (Ventolin Neb Soln) 2.5 mg PRN Q4HRS PRN NEB SHORTNESS OF BREATH; Start 12/01/18 at 19:30 Alprazolam (Xanax) 0.5 mg PRN TID PRN PO ANXIETY / AGITATION Last administered on 12/04/18 21:48; Start 12/01/18 at 19:30 Amlodipine Besylate (Norvasc) 10 mg DAILY PO Last administered on 12/04/18 08:08; Start 12/02/18 at 09:00 Atorvastatin Calcium (Lipitor) 40 mg HS PO Last administered on 12/04/18 21:48; Start 12/01/18 at 21:00 Carvedilol (Coreg) 6.25 mg BIDWMEALS PO Last administered on 12/04/18 17:19; Start 12/02/18 at 08:00 Clonidine HCl (Catapres Tts-2) 1 patch WEEKLY TD ; Start 12/08/18 at 09:00 Acetaminophen/ Hydrocodone Bitart (Lortab 5/325) 1 tab BID PO ; Start 12/01/18 at 21:00; Status Cancel Acetaminophen/ Hydrocodone Bitart (Lortab 5/325) 1 tab PRN Q6HRS PRN PO PAIN Last administered on 12/02/18at 04:43; Start 12/01/18 at 19:30; Stop 12/02/18 at 08:48; Status DC Latanoprost (Xalatan) 1 drop HS OU Last administered on 12/04/18at 21:48; Start 12/01/18 at 21:00 Levothyroxine Sodium (Synthroid) 50 mcg DAILY PO Last administered on 12/04/18 08:08; Start 12/02/18 at 09:00 Lisinopril (Prinivil) 20 mg DAILY PO Last administered on 12/04/18 08:08; Start 12/02/18 at 09:00 Prochlorperazine Maleate (Compazine) 5 mg PRN TID PRN PO NAUSEA Last administered on 12/03/18 19:56; Start 12/01/18 at 19:30 Sertraline HCl (Zoloft) 50 mg DAILY PO Last administered on 12/04/18 08:08; Start 12/02/18 at 09:00 Acetaminophen (Tylenol) 650 mg PRN Q6HRS PRN PO MILD PAIN / TEMP; Start 12/01/18 at 19:45 Amylase/Lipase/ Protease (Zenpep 5,000) 1 cap TIDWMEALS PO Last administered on 12/04/18 17:19; Start 12/02/18 at 08:00 Famotidine (Pepcid) 20 mg HS PO Last administered on 12/04/18 21:48; Start 12/01/18 at 21:00 Non-Formulary Medication ([Pantoprazole] ) 40 mg DAILYAC PO ; Start 12/02/18 at 07:30; Status UNV Ceftriaxone Sodium (Rocephin) 1 gm Q24H IVP Last administered on 12/04/18 21:48; Start 12/01/18 at 20:00 Vitamin B Complex/ Vitamin C (Pinky-Shreya) 1 tab DAILY PO Last administered on 12/04/18 08:08; Start 12/02/18 at 09:00 Fentanyl Citrate (Fentanyl 2ml Vial) 75 mcg PRN Q2HR PRN IV PAIN Last administered on 12/03/18 07:36; Start 12/02/18 at 09:00; Stop 12/03/18 at 08:59; Status DC Acetaminophen/ Hydrocodone Bitart (Lortab 5/325) 2 tab PRN Q6HRS PRN PO MODERATE - SEVERE PAIN Last administered on 12/02/18 18:55; Start 12/02/18 at 09:00; Stop 12/03/18 at 10:41; Status DC Magnesium Sulfate 50 ml @ 25 mls/hr PRN DAILY PRN IV for Mag < 1.7 on am labs; Start 12/02/18 at 09:30 Darbepoetin Jarrett (ARANESP for DIALYSIS PTS) 60 mcg WEEKLYHS SQ Last administered on 12/02/18at 21:00; Start 12/02/18 at 21:00 Lactobacillus Rhamnosus (Culturelle) 1 cap BID PO Last administered on 12/04/18at 21:48; Start 12/02/18 at 21:00 Fentanyl Citrate (Fentanyl 2ml Vial) 100 mcg PRN Q2HR PRN IV PAIN Last administered on 12/05/18at 09:32; Start 12/03/18 at 09:45 Fentanyl Citrate (Fentanyl 2ml Vial) 100 mcg STK-MED ONCE .ROUTE ; Start 12/03/18 at 09:45; Stop 12/03/18 at 09:45; Status DC Sodium Chloride 1,000 ml @ 1,000 mls/hr Q1H PRN IV hypotension; Start 12/03/18 at 10:12; Stop 12/03/18 at 16:11; Status DC Albumin Human 200 ml @ 200 mls/hr 1X PRN PRN IV Hypotension; Start 12/03/18 at 10:15; Stop 12/03/18 at 16:14; Status DC Sodium Chloride (Normal Saline Flush) 10 ml 1X PRN PRN IV AP catheter pack; Start 12/03/18 at 10:15; Stop 12/04/18 at 10:14; Status DC Sodium Chloride (Normal Saline Flush) 10 ml 1X PRN PRN IV FIREMAN catheter pack; Start 12/03/18 at 10:15; Stop 12/04/18 at 10:14; Status DC Sodium Chloride 1,000 ml @ 400 mls/hr Q2H30M PRN IV PATENCY; Start 12/03/18 at 10:12; Stop 12/03/18 at 22:11; Status DC Info (PHARMACY MONITORING -- do not chart) 1 each PRN DAILY PRN MC SEE COMMENTS; Start 12/03/18 at 10:15; Status UNV Info (PHARMACY MONITORING -- do not chart) 1 each PRN DAILY PRN MC SEE COMMENTS; Start 12/03/18 at 10:15 Acetaminophen/ Hydrocodone Bitart (Lortab 10) 1 tab PRN Q4HRS PRN PO MODERA TE TO SEVERE PAIN Last administered on 12/04/18at 07:53; Start 12/03/18 at 10:45 Ondansetron HCl (Zofran) 4 mg PRN Q6HRS PRN IV NAUSEA/VOMITING; Start 12/05/18 at 07:00; Stop 12/05/18 at 07:01; Status DC Fentanyl Citrate (Fentanyl 2ml Vial) 25 mcg PRN Q5MIN PRN IV MILD PAIN 1-3; Start 12/05/18 at 07:00; Stop 12/05/18 at 20:00 Fentanyl Citrate (Fentanyl 2ml Vial) 50 mcg PRN Q5MIN PRN IV MODERATE TO SEVERE PAIN; Start 12/05/18 at 07:00; Stop 12/05/18 at 20:00 Ringer's Solution 1,000 ml @ 30 mls/hr Q24H IV ; Start 12/05/18 at 07:00; Stop 12/05/18 at 18:59 Lidocaine HCl (Xylocaine-Mpf 1% 2ml Vial) 2 ml PRN 1X PRN ID PRIOR TO IV START; Start 12/05/18 at 07:00; Stop 12/05/18 at 20:00 Prochlorperazine Edisylate (Compazine) 5 mg PACU PRN PRN IV NAUSEA, MRX1; S tart 12/05/18 at 07:00; Stop 12/05/18 at 20:00 Bacitracin 11968 unit/Sodium Chloride 500 ml @ 500 mls/hr 1X ONCE IRR ; Start 12/05/18 at 06:00; Stop 12/05/18 at 06:59; Status DC Sodium Chloride 1,000 ml @ 1,000 mls/hr Q1H PRN IV hypotension; Start 12/05/18 at 07:31; Stop 12/05/18 at 13:30 Diphenhydramine HCl (Benadryl) 25 mg 1X PRN PRN IV ITCHING; Start 12/05/18 at 07:45; Stop 12/06/18 at 07:44 Diphenhydramine HCl (Benadryl) 25 mg 1X PRN PRN IV ITCHING; Start 12/05/18 at 07:45; Stop 12/06/18 at 07:44 Sodium Chloride 1,000 ml @ 400 mls/hr Q2H30M PRN IV PATENCY; Start 12/05/18 at 07:31; Stop 12/05/18 at 19:30 Info (PHARMACY MONITORING -- do not chart) 1 each PRN DAILY PRN MC SEE COMMENTS; Start 12/05/18 at 07:45; Stop 12/05/18 at 07:35; Status DC Info (PHARMACY MONITORING -- do not chart) 1 each PRN DAILY PRN MC SEE COMMENTS; Start 12/05/18 at 07:45; Status UNV Ondansetron HCl (Zofran) 4 mg 1X STAT IV Last administered on 12/05/18at 09:45; Start 12/05/18 at 09:34; Stop 12/05/18 at 09:35; Status DC Active Scripts Active Tylenol (Acetaminophen) 325 Mg Capsule 650 Mg PO Q6-8HRS PRN [place] 5-325 Tablet (Acetaminophen/Hydrocodone Bitart) 1 Each Tablet 1 Tab PO BID 5 Days [place] 5-325 Tablet (Acetaminophen/Hydrocodone Bitart) 1 Each Tablet 1 Tab PO PRN Q6HRS PRN Alprazolam 0.5 Mg Tablet 0.5 Mg PO PRN TID PRN MDD 1 Zantac (Ranitidine Hcl) 300 Mg Tablet 1 Tab PO QHS Compazine (Prochlorperazine Maleate) 5 Mg Tablet 5 Mg PO PRN TID PRN 10 Days [Pantoprazole] 40 MG Tablet.dr 40 Mg PO DAILYAC 30 Days Reported Zoloft (Sertraline Hcl) 50 Mg Tablet 50 Mg PO DAILY Lisinopril 20 Mg Tablet 20 Mg PO DAILY Coreg (Carvedilol) 6.25 Mg Tablet 6.25 Mg PO [address] Dr 6,000 Units Capsule (Lipase/Protease/Amylase) 1 Each Capsule. 1 Tab PO TID Proair Hfa (Albuterol Sulfate) 8.5 Gm Hfa.aer.ad 2 Puff INH BID PRN Levothyroxine Sodium 50 Mcg Tablet 1 Tab PO DAILY Clonidine Tts-2 (Clonidine) 1 Each Patch.tdwk 1 Patch TD WEEKLY Amlodipine Besylate 5 Mg Tablet 10 Mg PO DAILY Atorvastatin Calcium 40 Mg Tablet 40 Mg PO HS Latanoprost 2.5 Ml Drops 1 Drop EACHEYE HS Vitals/I & O Vital Sign - Last 24 Hours 12/04/18 12/04/18 12/04/18 9/10/19 11:00 13:12 15:40 17:19 Temp 98.1 98.1 Pulse 64 64 Resp 16 20 20 B/P (MAP) 150/50 (83) 150/50 Pulse Ox 96 96 96 O2 Delivery Room Air Room Air Room Air 12/04/18 12/04/18 12/04/18 12/04/18 17:46 19:00 19:51 20:00 Temp 97.0 97.0 Pulse 65 Resp 20 18 16 B/P (MAP) 147/41 (76) Pulse Ox 96 96 96 O2 Delivery Room Air Room Air Room Air Room Air 12/04/18 12/04/18 12/04/18 12/04/18 22:42 22:44 23:00 23:54 Temp 97.6 97.6 Pulse 62 Resp 16 16 18 16 B/P (MAP) 143/42 (75) Pulse Ox 96 96 98 98 O2 Delivery Room Air Room Air Room Air Room Air 12/05/18 12/05/18 12/05/18 12/05/18 00:35 00:35 01:58 03:00 Temp 98.3 98.3 Pulse 65 Resp 16 16 16 18 B/P (MAP) 157/42 (80) Pulse Ox 98 98 98 97 O2 Delivery Room Air Room Air Room Air Room Air 12/05/18 12/05/18 12/05/18 12/05/18 04:58 05:32 05:32 07:24 Resp 16 16 16 16 Pulse Ox 97 97 97 97 O2 Delivery Room Air Room Air Room Air Room Air 12/05/18 12/05/18 12/05/18 12/05/18 07:33 08:26 08:45 09:19 Temp 98.4 98.0 98.4 98.0 Pulse 64 64 Resp 14 14 B/P (MAP) 158/58 143/57 Pulse Ox 97 O2 Delivery Room Air Room Air 12/05/18 12/05/18 12/05/18 12/05/18 09:30 09:32 09:45 10:00 Temp 98.2 98.4 98.3 98.2 98.4 98.3 Pulse 75 75 71 Resp 16 20 14 14 B/P (MAP) 161/65 184/77 157/67 Pulse Ox 97 O2 Delivery Room Air Intake and Output 12/04/18 12/04/18 12/05/18 15:00 23:00 07:00 Intake Total 550 ml 250 ml Balance 550 ml 250 ml SANGEETHA MUELLER MD Dec 05, 2018 10:42
--- NOTE | 2018-12-05 10:49 | PDOC ---
Renal-Progress Notes Subjective Notes Notes HAVING RIGHT FOOT PAIN History of Present Illness Hx of present illness STABLE Vitals Vitals Vital Signs Date Time Temp Pulse Resp B/P (MAP) Pulse Ox O2 Delivery O2 Flow Rate FiO2 12/05/18 10:45 98.1 71 14 158/61 98.1 12/05/18 09:32 97 Room Air Weight Weight [ ] I.O. Intake and Output Intake and Output 12/05/18 07:00 Intake Total 800 ml Balance 800 ml Intake Oral 800 ml # Voids 2 # Bowel Movements 4 Labs Labs Laboratory Tests Test 12/04/18 11:44 12/05/18 07:45 Glucose (Fingerstick) 165 mg/dL (70-99) White Blood Count 7.3 x10^3/uL (4.0-11.0) Red Blood Count 2.54 x10^6/uL (3.50-5.40) Hemoglobin 7.7 g/dL (12.0-15.5) Hematocrit 23.1 % (36.0-47.0) Mean Corpuscular Volume 91 fL (79-100) Mean Corpuscular Hemoglobin 30 pg (25-35) Mean Corpuscular Hemoglobin Concent 33 g/dL (31-37) Red Cell Distribution Width 17.4 % (11.5-14.5) Platelet Count 299 x10^3/uL (140-400) Neutrophils (%) (Auto) 64 % (31-73) Lymphocytes (%) (Auto) 23 % (24-48) Monocytes (%) (Auto) 11 % (0-9) Eosinophils (%) (Auto) 1 % (0-3) Basophils (%) (Auto) 1 % (0-3) Neutrophils # (Auto) 4.7 x10^3/uL (1.8-7.7) Lymphocytes # (Auto) 1.6 x10^3/uL (1.0-4.8) Monocytes # (Auto) 0.8 x10^3/uL (0.0-1.1) Eosinophils # (Auto) 0.1 x10^3/uL (0.0-0.7) Basophils # (Auto) 0.1 x10^3/uL (0.0-0.2) Sodium Level 140 mmol/L (136-145) Potassium Level 4.2 mmol/L (3.5-5.1) Chloride Level 102 mmol/L (98-107) Carbon Dioxide Level 29 mmol/L (21-32) Anion Gap 9 (6-14) Blood Urea Nitrogen 31 mg/dL (7-20) Creatinine 5.6 mg/dL (0.6-1.0) Estimated GFR (Cockcroft-Gault) 9.5 Glucose Level 109 mg/dL (70-99) Calcium Level 8.2 mg/dL (8.5-10.1) Phosphorus Level 5.3 mg/dL (2.6-4.7) Magnesium Level 2.0 mg/dL (1.8-2.4) Albumin 2.1 g/dL (3.4-5.0) Micro Micro Microbiology 12/01/18 Blood Culture - Preliminary, Resulted NO GROWTH AFTER 3 DAYS Review of Systems Constitutional: yes: alert, oriented Ears/Nose/Throat: Yes: no symptom reported Pulmonary: Yes no symptom reported Cardiovascular: Yes no symptom reported Gastrointestional: Yes: no symptom reported Genitourinary: Yes: no symptom reported Musculoskeletal: Yes: foot pain, joint pain Psychiatric/Neurological: Yes: no symptom reported Physical Exam General Appearance: alert, oriented Skin: warm Respiratory: bilateral CTA Abdomen: bowel sounds present Genitourinary: bladder flat Extremities: pulses present Neurology: alert Assessment Assessment IMP ESRD ANEMIA HTN NON COMPLIANCE RIGHT FOOT GANGRENE SEVERE PAD PLAN HD TODAY UF TO DW PRBC TODAY RIGHT BKA PENDING ENC COMPLIANCE WOUND CARE SUPPORTIVE CARE BENY PAINTER MD Dec 05, 2018 10:49
--- NOTE | 2018-12-05 11:53 | NUR ---
SW following pt. Chart reviewed. Pt is scheduled for right BKA. SW will await for PT/OT assessment after Sx. Will continue to follow.
[2018-12-05] MEDS ORDERED: fentaNYL PF VIAL 100 MCG/2 ML VIAL ONE (12:06)
[2018-12-05] MEDS ORDERED: LIDOCAINE 2% PF 5 ML VIAL. ONE (12:06)
[2018-12-05] MEDS ORDERED: PROPOFOL 20 ML IV ONE (12:06)
[2018-12-05] MEDS ORDERED: ONDANSETRON PF 4 MG/2 ML VIAL. ONE (13:16)
[2018-12-05] MEDS ORDERED: SEVOFLURANE 61 TO 120 MINUTES. IH ONE (13:16)
[2018-12-05] MEDS ORDERED: DEXAMETHASONE SOD PHOS 4 MG/ML VIAL ONE (13:16)
[2018-12-05] MEDS ORDERED: hydrALAZINE 20 MG/ML VIAL. ONE (13:28)
[2018-12-05] MEDS ORDERED: ePHEDrine PF IN SALINE 50 MG/10 ML SYRINGE. IV ONE (14:09)
--- NOTE | 2018-12-05 14:31 | PDOC ---
BRIEF OPERATIVE NOTE Date: Dec 05, 2018 Pre-Op Diagnosis PAD, right foot ischemia with dry gangrene Left fifth toe amputation site with poor healing Post-Op Diagnosis same Procedure Performed Right below knee amputation Left fifth toe amputation site debridement of subcutaneous tissue and skin Surgeon Dr Villeda Fire Control System Installer Nallely Fernandes,YECENIA Anesthesia Type: General Blood Loss 100cc Specimens Obtained right leg Findings adequate bleeding right leg recommend angiogram left leg with possible intervention Complications none Operative Note see dictated NALLELY FERNANDES CONTROL SYSTEM COMPUTER SCIENTIST Dec 05, 2018 14:31
[2018-12-05] MEDS: IV NORMAL SALINE 1000ML BAG 1,000 ML IV SCH (14:50)
[2018-12-05] MEDS: PROCHLORPERAZINE 10 MG/2 ML VIAL. IV PRN ×2 (14:51→14:59)
[2018-12-05] MEDS: HYDROmorphone 2 MG/ML VIAL IV PRN ×4 (15:03→15:43)
[2018-12-05] MEDS: ALPRAZolam 0.5 MG TABLET PO PRN ×2 (16:43→22:42)
[2018-12-05] MEDS: HYDROcodone/APAP 10/325 1 TAB TABLET PO PRN ×2 (16:43→21:10)
--- NOTE | 2018-12-05 18:55 | OP ---
DATE OF SURGERY: 12/05/2018 SURGEON: Chikis Villeda M.D. CURRICULUM COUNSELOR: Jaz Sanchez, nurse practitioner. PREOPERATIVE DIAGNOSES: 1. Right foot severe ischemic rest pain with ulcers and gangrene of her forefoot. 2. Left fifth toe amputation site with gangrene. POSTOPERATIVE DIAGNOSES: 1. Right foot severe ischemic rest pain with ulcers and gangrene of her forefoot. 2. Left fifth toe amputation site with gangrene. OPERATIONS PERFORMED: 1. Right lower extremity below-knee amputation. 2. Left fifth toe previous amputation wound sharp excisional debridement removing necrotic skin and subcutaneous tissue, measurements after debridement were approximately 5 cm in length x 2.5 cm in width x 2 cm in depth. BLOOD LOSS: 100 mL. ANESTHESIA: General anesthesia. INDICATIONS: The patient is a 58-year-old female with a history of end-stage renal disease, on hemodialysis and severe bilateral lower extremity peripheral arterial disease. She has ischemic rest pain in the right foot, which is causing her severe pain and multiple areas of ulceration and gangrene throughout her toes and forefoot. An angiogram of the right leg showed minimal arterial flow into her right foot. Recommendations have been made for right [id number] amputation. She has also undergone a left fifth toe closed amputation in the recent past. The incision has slight dehiscence and black eschar gangrene of the incision. We recommend sharp excisional debridement of the left fifth toe amputation site. Informed consent was obtained from the patient. DETAILS OF THE OPERATION: The patient was brought to the operating room and placed on table in supine position. She received general anesthesia monitored throughout the case by the anesthesiologist. Her bilateral lower extremities were prepped and draped by normal sterile fashion. Her right foot was put in an impervious bag and wrapped with the Coban. Her left foot was wrapped with a towel. A tourniquet was placed on the right mid thigh prior to prepping. We used an Esmarch and exsanguinated her right leg and then inflated the tourniquet. We did a right [id number] amputation using a posterior flap type incision. The incision was made. We dissected down to subcutaneous tissue and fascia with electrocautery. We dissected down to the tibia bone. She is very thin. This was close the skin surface. We took down all muscular structures medial within the wound, dissecting down to the popliteal vessels. The popliteal artery and vein were clamped proximally and distally and divided. We suture ligated the proximal vessels with 0 silk sutures and we tied the distal vessels. Laterally, we dissected throughout the muscular structures down to the anterior tibial vessels, which were clamped proximally and distally. We divided them and suture ligated the proximal vessels with 0 silk suture and tied the distal vessels. Circumferentially, we had the tibia bone. I dissected out. We elevated under the fascia proximally within the bone. Laterally, we dissected out the fibula and this was also elevated proximally within the wound. The bone cutter was used. We cut the tibia and the fibula. We then divided all posterior muscle, tendon and nerve structures with sharp dissection and removed the lower leg. We let the tourniquet down. All areas of bleeding were suture ligated with 0 silk sutures. We continued to explore the wound until there was no further bleeding. It was nice and dry. There was no protrusion of the bone. The posterior flap came out nicely to the anterior wall of the incision without tension. We irrigated with copious amounts of antibiotic solution. A JEFFREY flat drain was left within the wound through a separate skin incision. We then closed the fascia along the length of the incision with interrupted 2-0 Vicryl sutures until there was a tight closure with no spaces. We then closed the skin with running 3-0 nylon suture. Sterile dressing and a wrap was placed on the right leg. We then unwrapped the left foot. We used sharp debridement to remove the sutures and excised out the black eschar within the fifth toe amputation wound. There was small amount of necrotic subcutaneous tissue underneath this, which was sharply excised. There was no protrusion of the bone. There was no deep purulent fluid. We dissected down to healthy tissue. We then irrigated with copious amounts of antibiotic solution. We gained hemostasis with electrocautery. The open wound was packed with antibiotic-soaked gauze, wrapped with Kerlix and an Eran bandage. We will plan on a wound VAC dressing tomorrow. She tolerated the surgery with no immediate complications. CHIKIS VILLEDA MD DR: ANDREW/franny JOB#: [id number] / [id number]
[2018-12-05] MEDS: FAMOTIDINE 20 MG TABLET. PO SCH (20:16)
[2018-12-05] MEDS: ATORVASTATIN CALCIUM 40 MG TABLET. PO SCH (20:16)
[2018-12-05] MEDS: cefTRIAXone IV Push 1 GM VIAL. IVP SCH (20:16)
[2018-12-05] MEDS: LATANOPROST 0.005% OPHTH SOLUTION 2.5ML BOTTLE. OU SCH (20:17)
[2018-12-06] MEDS: fentaNYL PF VIAL 100 MCG/2 ML VIAL IV PRN ×10 (00:49→21:12)
[2018-12-06] MEDS: HYDROcodone/APAP 10/325 1 TAB TABLET PO PRN ×5 (01:15→21:07)
[2018-12-06 03:00] VITALS: BP 151/67
[2018-12-06 07:00] VITALS: BP 149/63
[2018-12-06 07:33] LABS: BASO % 0 % (0-3); EOS % 0 % (0-3); HEMATOCRIT 36.6 % (36.0-47.0); HEMOGLOBIN 12.1 g/dL (12.0-15.5); LYMPH # 1.4 x10^3/uL (1.0-4.8); LYMPH % 12 % (24-48); MEAN CORPUSCULAR HEMOGLOBIN 30 pg (25-35); MEAN CORPUSCULAR HGB CONC 33 g/dL (31-37); MEAN CORPUSCULAR VOLUME 91 fL (79-100); MONO # 1.2 x10^3/uL (0.0-1.1); MONO % 10 % (0-9); NEUT % 78 % (31-73); PLATELET COUNT 245 x10^3/uL (140-400); RED BLOOD COUNT 4.05 x10^6/uL (3.50-5.40); RED CELL DISTRIBUTION WIDTH 16.7 % (11.5-14.5); WHITE BLOOD COUNT 11.6 x10^3/uL (4.0-11.0)
[2018-12-06] MEDS: LACTOBACILLUS RHAMNOSUS GG 1 CAPSULE. PO SCH ×2 (07:35→21:07)
[2018-12-06] MEDS: FOLIC/VIT B COMP W-C (RENAL) TABLET. PO SCH (07:35)
[2018-12-06] MEDS: LISINOPRIL 20 MG TABLET PO SCH (07:36)
[2018-12-06] MEDS: ALPRAZolam 0.5 MG TABLET PO PRN (07:36)
[2018-12-06] MEDS: LEVOTHYROXINE 50 MCG TABLET PO SCH (07:36)
[2018-12-06] MEDS: amLODIPine BESYLATE 5 MG TABLET PO SCH (07:36)
[2018-12-06] MEDS: CARVEDILOL 6.25 MG TABLET. PO SCH ×2 (07:37→17:50)
[2018-12-06] MEDS: SERTRALINE 50 MG TABLET. PO SCH (07:37)
[2018-12-06 07:39] LABS: ALBUMIN 2.9 g/dL (3.4-5.0); ALBUMIN/GLOBULIN RATIO 0.7 (1.0-1.7); CALCIUM 8.8 mg/dL (8.5-10.1); CREATININE 4.5 mg/dL (0.6-1.0); GFR 12.2; MAGNESIUM 2.3 mg/dL (1.8-2.4); TOTAL BILIRUBIN 0.3 mg/dL (0.2-1.0)
[2018-12-06 08:10] LABS: POTASSIUM 4.9 mmol/L (3.5-5.1)
[2018-12-06 11:00] VITALS: BP 110/60
--- NOTE | 2018-12-06 11:01 | PDOC ---
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 - RECENT needs local wound care Dyslipidemia malnutrition polysubstance abuse hx Diffuse moderate to advanced atherosclerotic plaque in the lower EXT arteries with moderate stenosis in the mid SFA, Right lower extremity angiography with subsequent angioplasty of the right superficial femoral artery and anterior tibial artery SEPTEMBER 2018 History of Present Illness History of Present Illness POD # 1 She pulled the JEFFREY drain somewhat and now is not suctioning LAst night RN had 100cc from that JEFFREY drain Dressing off- wound /sutures inspected/looks good SHe is actually interested in SNU to my delight PLAn: Dress that stump to avoid her pulling he JEFFREY drain - [facility] Post op labs Bowel regimen while on narcs- she is narc tolerant Vitals Vitals Vital Signs Date Time Temp Pulse Resp B/P (MAP) Pulse Ox O2 Delivery O2 Flow Rate FiO2 12/06/18 10:13 Room Air 12/06/18 07:41 67 149/63 12/06/18 07:00 98.4 20 98 98.4 12/06/18 00:49 10.0 Physical Exam General: Alert, Oriented X3, Cooperative, mild distress Heart: Regular rate, Normal S1, Normal S2, No murmurs Lungs: Clear Abdomen: Normal bowel sounds, Soft, No hepatosplenomegaly Extremities: Other (ischemic limb) Skin: No rashes, Other Labs LABS Laboratory Tests Test 12/05/18 14:40 12/05/18 16:38 12/05/18 21:03 12/06/18 05:35 Glucose (Fingerstick) 124 mg/dL (70-99) 181 mg/dL (70-99) 179 mg/dL (70-99) White Blood Count 11.6 x10^3/uL (4.0-11.0) Red Blood Count 4.05 x10^6/uL (3.50-5.40) Hemoglobin 12.1 g/dL (12.0-15.5) Hematocrit 36.6 % (36.0-47.0) Mean Corpuscular Volume 91 fL (79-100) Mean Corpuscular Hemoglobin 30 pg (25-35) Mean Corpuscular Hemoglobin Concent 33 g/dL (31-37) Red Cell Distribution Width 16.7 % (11.5-14.5) Platelet Count 245 x10^3/uL (140-400) Neutrophils (%) (Auto) 78 % (31-73) Lymphocytes (%) (Auto) 12 % (24-48) Monocytes (%) (Auto) 10 % (0-9) Eosinophils (%) (Auto) 0 % (0-3) Basophils (%) (Auto) 0 % (0-3) Neutrophils # (Auto) 9.0 x10^3/uL (1.8-7.7) Lymphocytes # (Auto) 1.4 x10^3/uL (1.0-4.8) Monocytes # (Auto) 1.2 x10^3/uL (0.0-1.1) Eosinophils # (Auto) 0.0 x10^3/uL (0.0-0.7) Basophils # (Auto) 0.0 x10^3/uL (0.0-0.2) Sodium Level 137 mmol/L (136-145) Potassium Level 4.9 mmol/L (3.5-5.1) Chloride Level 96 mmol/L (98-107) Carbon Dioxide Level 26 mmol/L (21-32) Anion Gap 15 (6-14) Blood Urea Nitrogen 21 mg/dL (7-20) Creatinine 4.5 mg/dL (0.6-1.0) Estimated GFR (Cockcroft-Gault) 12.2 BUN/Creatinine Ratio 5 (6-20) Glucose Level 182 mg/dL (70-99) Calcium Level 8.8 mg/dL (8.5-10.1) Magnesium Level 2.3 mg/dL (1.8-2.4) Total Bilirubin 0.3 mg/dL (0.2-1.0) Aspartate Amino Transf (AST/SGOT) 32 U/L (15-37) Alanine Aminotransferase (ALT/SGPT) 17 U/L (14-59) Alkaline Phosphatase 92 U/L (46-116) Total Protein 7.0 g/dL (6.4-8.2) Albumin 2.9 g/dL (3.4-5.0) Albumin/Globulin Ratio 0.7 (1.0-1.7) Test 9/12/19 07:01 Glucose (Fingerstick) 179 mg/dL (70-99) Review of Systems Review of Systems post op pain, anxious, miserable, otherwise rest 14 pt neg Assessment and Plan Assessmemt and Plan Problems Medical Problems: (1) Acute anemia Status: Acute (2) Anasarca Status: Acute (3) ESRD on dialysis Status: Chronic (4) Gangrene of toe of right foot Status: Acute Comment Review of Relevant I have reviewed the following items pamela (where applicable) has been applied. Labs Laboratory Tests Test 12/04/18 11:44 12/05/18 07:45 12/05/18 14:40 12/05/18 16:38 Glucose (Fingerstick) 165 mg/dL (70-99) 124 mg/dL (70-99) 181 mg/dL (70-99) White Blood Count 7.3 x10^3/uL (4.0-11.0) Red Blood Count 2.54 x10^6/uL (3.50-5.40) Hemoglobin 7.7 g/dL (12.0-15.5) Hematocrit 23.1 % (36.0-47.0) Mean Corpuscular Volume 91 fL (79-100) Mean Corpuscular Hemoglobin 30 pg (25-35) Mean Corpuscular Hemoglobin Concent 33 g/dL (31-37) Red Cell Distribution Width 17.4 % (11.5-14.5) Platelet Count 299 x10^3/uL (140-400) Neutrophils (%) (Auto) 64 % (31-73) Lymphocytes (%) (Auto) 23 % (24-48) Monocytes (%) (Auto) 11 % (0-9) Eosinophils (%) (Auto) 1 % (0-3) Basophils (%) (Auto) 1 % (0-3) Neutrophils # (Auto) 4.7 x10^3/uL (1.8-7.7) Lymphocytes # (Auto) 1.6 x10^3/uL (1.0-4.8) Monocytes # (Auto) 0.8 x10^3/uL (0.0-1.1) Eosinophils # (Auto) 0.1 x10^3/uL (0.0-0.7) Basophils # (Auto) 0.1 x10^3/uL (0.0-0.2) Sodium Level 140 mmol/L (136-145) Potassium Level 4.2 mmol/L (3.5-5.1) Chloride Level 102 mmol/L (98-107) Carbon Dioxide Level 29 mmol/L (21-32) Anion Gap 9 (6-14) Blood Urea Nitrogen 31 mg/dL (7-20) Creatinine 5.6 mg/dL (0.6-1.0) Estimated GFR (Cockcroft-Gault) 9.5 Glucose Level 109 mg/dL (70-99) Calcium Level 8.2 mg/dL (8.5-10.1) Phosphorus Level 5.3 mg/dL (2.6-4.7) Magnesium Level 2.0 mg/dL (1.8-2.4) Albumin 2.1 g/dL (3.4-5.0) Test 12/05/18 21:03 12/06/18 05:35 12/06/18 07:01 Glucose (Fingerstick) 179 mg/dL (70-99) 179 mg/dL (70-99) White Blood Count 11.6 x10^3/uL (4.0-11.0) Red Blood Count 4.05 x10^6/uL (3.50-5.40) Hemoglobin 12.1 g/dL (12.0-15.5) Hematocrit 36.6 % (36.0-47.0) Mean Corpuscular Volume 91 fL (79-100) Mean Corpuscular Hemoglobin 30 pg (25-35) Mean Corpuscular Hemoglobin Concent 33 g/dL (31-37) Red Cell Distribution Width 16.7 % (11.5-14.5) Platelet Count 245 x10^3/uL (140-400) Neutrophils (%) (Auto) 78 % (31-73) Lymphocytes (%) (Auto) 12 % (24-48) Monocytes (%) (Auto) 10 % (0-9) Eosinophils (%) (Auto) 0 % (0-3) Basophils (%) (Auto) 0 % (0-3) Neutrophils # (Auto) 9.0 x10^3/uL (1.8-7.7) Lymphocytes # (Auto) 1.4 x10^3/uL (1.0-4.8) Monocytes # (Auto) 1.2 x10^3/uL (0.0-1.1) Eosinophils # (Auto) 0.0 x10^3/uL (0.0-0.7) Basophils # (Auto) 0.0 x10^3/uL (0.0-0.2) Sodium Level 137 mmol/L (136-145) Potassium Level 4.9 mmol/L (3.5-5.1) Chloride Level 96 mmol/L (98-107) Carbon Dioxide Level 26 mmol/L (21-32) Anion Gap 15 (6-14) Blood Urea Nitrogen 21 mg/dL (7-20) Creatinine 4.5 mg/dL (0.6-1.0) Estimated GFR (Cockcroft-Gault) 12.2 BUN/Creatinine Ratio 5 (6-20) Glucose Level 182 mg/dL (70-99) Calcium Level 8.8 mg/dL (8.5-10.1) Magnesium Level 2.3 mg/dL (1.8-2.4) Total Bilirubin 0.3 mg/dL (0.2-1.0) Aspartate Amino Transf (AST/SGOT) 32 U/L (15-37) Alanine Aminotransferase (ALT/SGPT) 17 U/L (14-59) Alkaline Phosphatase 92 U/L (46-116) Total Protein 7.0 g/dL (6.4-8.2) Albumin 2.9 g/dL (3.4-5.0) Albumin/Globulin Ratio 0.7 (1.0-1.7) Laboratory Tests Test 12/05/18 14:40 12/05/18 16:38 12/05/18 21:03 12/06/18 05:35 Glucose (Fingerstick) 124 mg/dL (70-99) 181 mg/dL (70-99) 179 mg/dL (70-99) White Blood Count 11.6 x10^3/uL (4.0-11.0) Red Blood Count 4.05 x10^6/uL (3.50-5.40) Hemoglobin 12.1 g/dL (12.0-15.5) Hematocrit 36.6 % (36.0-47.0) Mean Corpuscular Volume 91 fL (79-100) Mean Corpuscular Hemoglobin 30 pg (25-35) Mean Corpuscular Hemoglobin Concent 33 g/dL (31-37) Red Cell Distribution Width 16.7 % (11.5-14.5) Platelet Count 245 x10^3/uL (140-400) Neutrophils (%) (Auto) 78 % (31-73) Lymphocytes (%) (Auto) 12 % (24-48) Monocytes (%) (Auto) 10 % (0-9) Eosinophils (%) (Auto) 0 % (0-3) Basophils (%) (Auto) 0 % (0-3) Neutrophils # (Auto) 9.0 x10^3/uL (1.8-7.7) Lymphocytes # (Auto) 1.4 x10^3/uL (1.0-4.8) Monocytes # (Auto) 1.2 x10^3/uL (0.0-1.1) Eosinophils # (Auto) 0.0 x10^3/uL (0.0-0.7) Basophils # (Auto) 0.0 x10^3/uL (0.0-0.2) Sodium Level 137 mmol/L (136-145) Potassium Level 4.9 mmol/L (3.5-5.1) Chloride Level 96 mmol/L (98-107) Carbon Dioxide Level 26 mmol/L (21-32) Anion Gap 15 (6-14) Blood Urea Nitrogen 21 mg/dL (7-20) Creatinine 4.5 mg/dL (0.6-1.0) Estimated GFR (Cockcroft-Gault) 12.2 BUN/Creatinine Ratio 5 (6-20) Glucose Level 182 mg/dL (70-99) Calcium Level 8.8 mg/dL (8.5-10.1) Magnesium Level 2.3 mg/dL (1.8-2.4) Total Bilirubin 0.3 mg/dL (0.2-1.0) Aspartate Amino Transf (AST/SGOT) 32 U/L (15-37) Alanine Aminotransferase (ALT/SGPT) 17 U/L (14-59) Alkaline Phosphatase 92 U/L (46-116) Total Protein 7.0 g/dL (6.4-8.2) Albumin 2.9 g/dL (3.4-5.0) Albumin/Globulin Ratio 0.7 (1.0-1.7) Test 12/06/18 07:01 Glucose (Fingerstick) 179 mg/dL (70-99) Microbiology 12/01/18 Blood Culture - Preliminary, Resulted NO GROWTH AFTER 4 DAYS Medications Current Medications Fentanyl Citrate (Fentanyl 2ml Vial) 50 mcg 1X STAT IV Last administered on 12/01/18 15:29; Start 12/01/18 at 15:21; Stop 12/01/18 at 15:23; Status DC Fentanyl Citrate (Fentanyl 2ml Vial) 50 mcg 1X STAT IV Last administered on 12/01/18at 16:24; Start 12/01/18 at 16:09; Stop 12/01/18 at 16:11; Status DC Ondansetron HCl (Zofran) 4 mg PRN Q8HRS PRN IV NAUSEA/VOMITING; Start 12/01/18 at 16:30; Stop 12/02/18 at 16:29; Status DC Fentanyl Citrate (Fentanyl 2ml Vial) 50 mcg PRN Q1HR PRN IV PAIN Last administered on 12/02/18at 07:33; Start 12/01/18 at 16:30; Stop 12/02/18 at 08:48; Status DC Pharmacy Consult (C.diff Med Screen By Rx) 1 each 1X ONCE MC ; Start 12/01/18 at 18:15; Stop 12/01/18 at 18:16; Status Cancel Albuterol Sulfate (Ventolin Neb Soln) 2.5 mg PRN Q4HRS PRN NEB SHORTNESS OF BREATH; Start 12/01/18 at 19:30 Alprazolam (Xanax) 0.5 mg PRN TID PRN PO ANXIETY / AGITATION Last administered on 12/06/18 07:41; Start 12/01/18 at 19:30 Amlodipine Besylate (Norvasc) 10 mg DAILY PO Last administered on 12/06/18 07:41; Start 12/02/18 at 09:00 Atorvastatin Calcium (Lipitor) 40 mg HS PO Last administered on 12/05/18 20:18; Start 12/01/18 at 21:00 Carvedilol (Coreg) 6.25 mg BIDWMEALS PO Last administered on 12/06/18 07:41; Start 12/02/18 at 08:00 Clonidine HCl (Catapres Tts-2) 1 patch WEEKLY TD ; Start 12/08/18 at 09:00 Acetaminophen/ Hydrocodone Bitart (Lortab 5/325) 1 tab BID PO ; Start 12/01/18 at 21:00; Status Cancel Acetaminophen/ Hydrocodone Bitart (Lortab 5/325) 1 tab PRN Q6HRS PRN PO PAIN Last administered on 12/02/18 04:43; Start 12/01/18 at 19:30; Stop 12/02/18 at 08:48; Status DC Latanoprost (Xalatan) 1 drop HS OU Last administered on 12/05/18 20:18; Start 12/01/18 at 21:00 Levothyroxine Sodium (Synthroid) 50 mcg DAILY PO Last administered on 12/06/18 07:41; Start 12/02/18 at 09:00 Lisinopril (Prinivil) 20 mg DAILY PO Last administered on 12/06/18 07:41; Start 12/02/18 at 09:00 Prochlorperazine Maleate (Compazine) 5 mg PRN TID PRN PO NAUSEA Last administered on 12/03/18 19:56; Start 12/01/18 at 19:30 Sertraline HCl (Zoloft) 50 mg DAILY PO Last administered on 12/06/18 07:41; Start 12/02/18 at 09:00 Acetaminophen (Tylenol) 650 mg PRN Q6HRS PRN PO MILD PAIN / TEMP; Start 12/01/18 at 19:45 Amylase/Lipase/ Protease (Zenpep 5,000) 1 cap TIDWMEALS PO Last administered on 12/05/18 16:43; Start 12/02/18 at 08:00 Famotidine (Pepcid) 20 mg HS PO Last administered on 12/05/18 20:18; Start 12/01/18 at 21:00 Non-Formulary Medication ([Pantoprazole] ) 40 mg DAILYAC PO ; Start 12/02/18 at 07:30; Status UNV Ceftriaxone Sodium (Rocephin) 1 gm Q24H IVP Last administered on 12/05/18 20:18; Start 12/01/18 at 20:00 Vitamin B Complex/ Vitamin C (Pinky-Shreya) 1 tab DAILY PO Last administered on 12/06/18 07:41; Start 12/02/18 at 09:00 Fentanyl Citrate (Fentanyl 2ml Vial) 75 mcg PRN Q2HR PRN IV PAIN Last administered on 12/03/18at 07:36; Start 12/02/18 at 09:00; Stop 12/03/18 at 08:59; Status DC Acetaminophen/ Hydrocodone Bitart (Lortab 5/325) 2 tab PRN Q6HRS PRN PO MODERATE - SEVERE PAIN Last administered on 12/02/18at 18:55; Start 12/02/18 at 09:00; Stop 12/03/18 at 10:41; Status DC Magnesium Sulfate 50 ml @ 25 mls/hr PRN DAILY PRN IV for Mag < 1.7 on am labs; Start 12/02/18 at 09:30 Darbepoetin Jarrett (ARANESP for DIALYSIS PTS) 60 mcg WEEKLYHS SQ Last administered on 12/02/18 21:00; Start 12/02/18 at 21:00 Lactobacillus Rhamnosus (Culturelle) 1 cap BID PO Last administered on 12/06/18at 07:41; Start 12/02/18 at 21:00 Fentanyl Citrate (Fentanyl 2ml Vial) 100 mcg PRN Q2HR PRN IV PAIN Last administered on 12/06/18 10:13; Start 12/03/18 at 09:45 Fentanyl Citrate (Fentanyl 2ml Vial) 100 mcg STK-MED ONCE .ROUTE ; Start 12/03/18 at 09:45; Stop 12/03/18 at 09:45; Status DC Sodium Chloride 1,000 ml @ 1,000 mls/hr Q1H PRN IV hypotension; Start 12/03/18 at 10:12; Stop 12/03/18 at 16:11; Status DC Albumin Human 200 ml @ 200 mls/hr 1X PRN PRN IV Hypotension; Start 12/03/18 at 10:15; Stop 12/03/18 at 16:14; Status DC Sodium Chloride (Normal Saline Flush) 10 ml 1X PRN PRN IV AP catheter pack; Start 12/03/18 at 10:15; Stop 12/04/18 at 10:14; Status DC Sodium Chloride (Normal Saline Flush) 10 ml 1X PRN PRN IV JAZZ SINGER catheter pack; Start 12/03/18 at 10:15; Stop 12/04/18 at 10:14; Status DC Sodium Chloride 1,000 ml @ 400 mls/hr Q2H30M PRN IV PATENCY; Start 12/03/18 at 10:12; Stop 12/03/18 at 22:11; Status DC Info (PHARMACY MONITORING -- do not chart) 1 each PRN DAILY PRN MC SEE COMMENTS; Start 12/03/18 at 10:15; Status UNV Info (PHARMACY MONITORING -- do not chart) 1 each PRN DAILY PRN MC SEE COMMENTS; Start 12/03/18 at 10:15 Acetaminophen/ Hydrocodone Bitart (Lortab 10) 1 tab PRN Q4HRS PRN PO MODERATE TO SEVERE PAIN Last administered on 12/06/18at 06:34; Start 12/03/18 at 10:45 Ondansetron HCl (Zofran) 4 mg PRN Q6HRS PRN IV NAUSEA/VOMITING; Start 12/05/18 at 07:00; Stop 12/05/18 at 07:01; Status DC Fentanyl Citrate (Fentanyl 2ml Vial) 25 mcg PRN Q5MIN PRN IV MILD PAIN 1-3; Start 12/05/18 at 07:00; Stop 12/05/18 at 20:00; Status DC Fentanyl Citrate (Fentanyl 2ml Vial) 50 mcg PRN Q5MIN PRN IV MODERATE TO SEVERE PAIN Last administered on 12/05/18at 14:59; Start 12/05/18 at 07:00; Stop 12/05/18 at 20:00; Status DC Ringer's Solution 1,000 ml @ 30 mls/hr Q24H IV ; Start 12/05/18 at 07:00; Stop 12/05/18 at 11:44; Status DC Lidocaine HCl (Xylocaine-Mpf 1% 2ml Vial) 2 ml PRN 1X PRN ID PRIOR TO IV START; Start 12/05/18 at 07:00; Stop 12/05/18 at 20:00; Status DC Prochlorperazine Edisylate (Compazine) 5 mg PACU PRN PRN IV NAUSEA, MRX1 Last administered on 12/05/18at 14:59; Start 12/05/18 at 07:00; Stop 12/05/18 at 20:00; Status DC Bacitracin 11984 unit/Sodium Chloride 500 ml @ 500 mls/hr 1X ONCE IRR Last administered on 12/05/18at 12:29; Start 12/05/18 at 06:00; Stop 12/05/18 at 06:59; Status DC Sodium Chloride 1,000 ml @ 1,000 mls/hr Q1H PRN IV hypotension; Start 12/05/18 at 07:31; Stop 12/05/18 at 13:30; Status DC Diphenhydramine HCl (Benadryl) 25 mg 1X PRN PRN IV ITCHING; Start 12/05/18 at 07:45; Stop 12/06/18 at 07:44; Status DC Diphenhydramine HCl (Benadryl) 25 mg 1X PRN PRN IV ITCHING; Start 12/05/18 at 07:45; Stop 12/06/18 at 07:44; Status DC Sodium Chloride 1,000 ml @ 400 mls/hr Q2H30M PRN IV PATENCY; Start 12/05/18 at 07:31; Stop 12/05/18 at 19:30; Status DC Info (PHARMACY MONITORING -- do not chart) 1 each PRN DAILY PRN MC SEE COMMENTS; Start 12/05/18 at 07:45; Stop 12/05/18 at 07:35; Status DC Info (PHARMACY MONITORING -- do not chart) 1 each PRN DAILY PRN MC SEE COMMENTS; Start 12/05/18 at 07:45; Status UNV Ondansetron HCl (Zofran) 4 mg 1X STAT IV Last administered on 12/05/18at 09:45; Start 12/05/18 at 09:34; Stop 12/05/18 at 09:35; Status DC Sodium Chloride 1,000 ml @ 30 mls/hr Q24H IV Last administered on 12/05/18at 14:52; Start 12/05/18 at 11:45 Propofol 20 ml @ As Directed STK-MED ONCE IV ; Start 12/05/18 at 12:06; Stop 12/05/18 at 12:06; Status DC Lidocaine HCl (Lidocaine Pf 2% Vial) 5 ml STK-MED ONCE .ROUTE ; Start 12/05/18 at 12:06; Stop 12/05/18 at 12:06; Status DC Fentanyl Citrate (Fentanyl 2ml Vial) 100 mcg STK-MED ONCE .ROUTE ; Start 12/05/18 at 12:06; Stop 12/05/18 at 12:06; Status DC Cefazolin Sodium/ Dextrose 50 ml @ 100 mls/hr 1X PREOP PRN IV PRIOR TO PROCEDURE Last administered on 12/05/18at 13:37; Start 12/05/18 at 13:00; Stop 12/06/18 at 12:59 Dexamethasone Sodium Phosphate (Decadron) 4 mg STK-MED ONCE .ROUTE ; Start 12/05/18 at 13:16; Stop 12/05/18 at 13:16; Status DC Ondansetron HCl (Zofran) 4 mg STK-MED ONCE .ROUTE ; Start 12/05/18 at 13:16; Stop 12/05/18 at 13:16; Status DC Sevoflurane (Ultane) 60 ml STK-MED ONCE IH ; Start 12/05/18 at 13:16; Stop 12/05/18 at 13:16; Status DC Hydralazine HCl (Apresoline Inj) 20 mg STK-MED ONCE .ROUTE ; Start 12/05/18 at 13:28; Stop 12/05/18 at 13:28; Status DC Ephedrine Sulfate (ePHEDrine PF IN SALINE SYRINGE) 50 mg STK-MED ONCE IV ; Start 12/05/18 at 14:09; Stop 12/05/18 at 14:09; Status DC Hydromorphone HCl (Dilaudid) 0.5 mg PRN Q10MIN PRN IV pain Last administered on 12/05/18at 15:56; Start 12/05/18 at 15:00; Stop 12/05/18 at 20:00; Status DC Ondansetron HCl (Zofran) 4 mg PRN Q6HRS PRN IV NAUSEA/VOMITING; Start 12/07/18 at 07:00; Stop 12/08/18 at 06:59; Status UNV Fentanyl Citrate (Fentanyl 2ml Vial) 25 mcg PRN Q5MIN PRN IV MILD PAIN 1-3; Start 12/07/18 at 07:00; Stop 12/08/18 at 06:59; Status UNV Fentanyl Citrate (Fentanyl 2ml Vial) 50 mcg PRN Q5MIN PRN IV MODERATE TO SEVERE PAIN; Start 12/07/18 at 07:00; Stop 12/08/18 at 06:59; Status UNV Ringer's Solution 1,000 ml @ 30 mls/hr Q24H IV ; Start 12/07/18 at 07:00; Stop 12/07/18 at 18:59; Status UNV Lidocaine HCl (Xylocaine-Mpf 1% 2ml Vial) 2 ml PRN 1X PRN ID PRIOR TO IV START; Start 12/07/18 at 07:00; Stop 12/08/18 at 06:59; Status UNV Prochlorperazine Edisylate (Compazine) 5 mg PACU PRN PRN IV NAUSEA, MRX1; Start 12/07/18 at 07:00; Stop 12/08/18 at 06:59; Status UNV Active Scripts Active Tylenol (Acetaminophen) 325 Mg Capsule 650 Mg PO Q6-8HRS PRN Irwin 5-325 Tablet (Acetaminophen/Hydrocodone Bitart) 1 Each Tablet 1 Tab PO BID 5 Days Irwin 5-325 Tablet (Acetaminophen/Hydrocodone Bitart) 1 Each Tablet 1 Tab PO PRN Q6HRS PRN Alprazolam 0.5 Mg Tablet 0.5 Mg PO PRN TID PRN MDD 1 Zantac (Ranitidine Hcl) 300 Mg Tablet 1 Tab PO QHS Compazine (Prochlorperazine Maleate) 5 Mg Tablet 5 Mg PO PRN TID PRN 10 Days [Pantoprazole] 40 MG Tablet.dr 40 Mg PO DAILYAC 30 Days Reported Zoloft (Sertraline Hcl) 50 Mg Tablet 50 Mg PO DAILY Lisinopril 20 Mg Tablet 20 Mg PO DAILY Coreg (Carvedilol) 6.25 Mg Tablet 6.25 Mg PO BIDWMELORENA Frey Dr 6,000 Units Capsule (Lipase/Protease/Amylase) 1 Each Capsule. 1 Tab PO TID Proair Hfa (Albuterol Sulfate) 8.5 Gm Hfa.aer.ad 2 Puff INH BID PRN Levothyroxine Sodium 50 Mcg Tablet 1 Tab PO DAILY Clonidine Tts-2 (Clonidine) 1 Each Patch.tdwk 1 Patch TD WEEKLY Amlodipine Besylate 5 Mg Tablet 10 Mg PO DAILY Atorvastatin Calcium 40 Mg Tablet 40 Mg PO HS Latanoprost 2.5 Ml Drops 1 Drop EACHEYE HS Vitals/I & O Vital Sign - Last 24 Hours 912/05/18 12/05/18 12/05/18 11:27 11:32 12:29 13:45 Temp 98.1 98.1 Pulse 71 Resp 20 20 15 20 B/P (MAP) 184/75 Pulse Ox 97 97 97 97 O2 Delivery Room Air Room Air Room Air Room Air 12/05/18 12/05/18 12/05/18 12/05/18 14:25 14:40 14:52 14:55 Temp 99.0 99.0 Pulse 92 86 83 Resp 20 20 20 20 B/P (MAP) 126/103 190/72 170/64 Pulse Ox 99 100 99 98 O2 Delivery Simple Mask Room Air Simple Mask Simple Mask O2 Flow Rate 10 10.0 10 12/05/18 12/05/18 12/05/18 12/05/18 14:59 15:04 15:10 15:23 Pulse 84 Resp 20 20 20 20 B/P (MAP) 157/77 Pulse Ox 99 94 96 96 O2 Delivery Room Air Room Air Room Air 12/05/18 12/05/18 12/05/18 12/05/18 15:25 15:25 15:40 15:56 Temp 98.0 98.0 Pulse 88 84 Resp 20 20 20 20 B/P (MAP) 187/74 187/74 Pulse Ox 99 99 97 97 O2 Delivery Room Air Room Air Room Air Room Air 12/05/18 12/05/18 12/05/18 12/05/18 16:07 16:15 16:32 16:43 Temp 96.8 96.8 Pulse 87 87 89 89 Resp 18 B/P (MAP) 188/63 (104) 180/85 (116) 176/81 (112) 176/81 Pulse Ox 98 97 96 O2 Delivery Room Air Room Air Room Air 12/05/18 12/05/18 12/05/18 12/05/18 16:43 16:43 16:43 17:14 Pulse 89 89 Resp 18 18 B/P (MAP) 176/81 176/89 Pulse Ox 98 96 O2 Delivery Room Air Room Air 12/05/18 12/05/18 12/05/18 12/05/18 17:33 18:07 18:15 18:15 Pulse 69 89 Resp 18 18 B/P (MAP) 185/70 (108) 181/50 (93) Pulse Ox 96 96 O2 Delivery Room Air Room Air 12/05/18 12/05/18 12/05/18 12/05/18 18:32 19:00 20:00 20:18 Temp 98.9 98.9 Pulse 83 77 Resp 18 18 B/P (MAP) 172/59 (96) 164/74 (104) Pulse Ox 98 O2 Delivery Room Air Room Air 12/05/18 12/05/18 12/05/18 12/05/18 21:10 21:10 22:42 23:00 Temp 98.8 98.8 Pulse 79 Resp 20 20 20 B/P (MAP) 167/90 (115) Pulse Ox 96 96 96 98 O2 Delivery Room Air Room Air Room Air O2 Flow Rate 10.0 10.0 12/06/18 12/06/18 12/06/18 12/06/18 00:49 01:15 01:21 01:21 Resp 20 18 18 16 Pulse Ox 96 96 96 96 O2 Delivery Room Air Room Air Room Air Room Air O2 Flow Rate 10.0 12/06/18 12/06/18 12/06/18 12/06/18 01:21 03:00 03:07 05:22 Temp 99.5 99.5 Pulse 70 Resp 20 20 16 16 B/P (MAP) 151/67 (95) Pulse Ox 96 99 96 96 O2 Delivery Room Air Room Air Room Air 12/06/18 12/06/18 12/06/18 12/06/18 06:34 07:00 07:41 07:41 Temp 98.4 98.4 Pulse 67 67 67 Resp 20 20 B/P (MAP) 149/63 (91) 149/67 149/63 Pulse Ox 96 98 O2 Delivery Room Air Room Air 12/06/18 12/06/18 12/06/18 12/06/18 07:41 07:41 07:41 07:42 Pulse 67 B/P (MAP) 149/63 O2 Delivery Room Air Room Air Room Air 12/06/18 12/06/18 12/06/18 12/06/18 07:42 07:42 08:33 10:13 O2 Delivery Room Air Room Air Room Air Room Air Intake and Output 12/05/18 12/05/18 12/06/18 15:00 23:00 07:00 Intake Total 1295 ml 250 ml Output Total 100 ml 40 ml 70 ml Balance 1195 ml 210 ml -70 ml PRABHAKAR MOSQUERA MD Dec 06, 2018 11:01
--- NOTE | 2018-12-06 11:10 | PDOC ---
Renal-Progress Notes Subjective Notes Notes SOMNOLENT History of Present Illness Hx of present illness NO CHANGE Vitals Vitals Vital Signs Date Time Temp Pulse Resp B/P (MAP) Pulse Ox O2 Delivery O2 Flow Rate FiO2 12/06/18 10:13 Room Air 12/06/18 07:41 67 149/63 12/06/18 07:00 98.4 20 98 98.4 12/06/18 00:49 10.0 Weight Weight [ ] I.O. Intake and Output Intake and Output 12/06/18 06:59 Intake Total 1545 ml Output Total 210 ml Balance 1335 ml Intake Oral 250 ml IV Total 350 ml Blood Product IV Normal Saline Flush 945 ml Drainage Total 110 ml Estimated Blood Loss 100 ml # Voids 1 # Bowel Movements 2 Labs Labs Laboratory Tests Test 12/05/18 14:40 12/05/18 16:38 12/05/18 21:03 12/06/18 05:35 Glucose (Fingerstick) 124 mg/dL (70-99) 181 mg/dL (70-99) 179 mg/dL (70-99) White Blood Count 11.6 x10^3/uL (4.0-11.0) Red Blood Count 4.05 x10^6/uL (3.50-5.40) Hemoglobin 12.1 g/dL (12.0-15.5) Hematocrit 36.6 % (36.0-47.0) Mean Corpuscular Volume 91 fL (79-100) Mean Corpuscular Hemoglobin 30 pg (25-35) Mean Corpuscular Hemoglobin Concent 33 g/dL (31-37) Red Cell Distribution Width 16.7 % (11.5-14.5) Platelet Count 245 x10^3/uL (140-400) Neutrophils (%) (Auto) 78 % (31-73) Lymphocytes (%) (Auto) 12 % (24-48) Monocytes (%) (Auto) 10 % (0-9) Eosinophils (%) (Auto) 0 % (0-3) Basophils (%) (Auto) 0 % (0-3) Neutrophils # (Auto) 9.0 x10^3/uL (1.8-7.7) Lymphocytes # (Auto) 1.4 x10^3/uL (1.0-4.8) Monocytes # (Auto) 1.2 x10^3/uL (0.0-1.1) Eosinophils # (Auto) 0.0 x10^3/uL (0.0-0.7) Basophils # (Auto) 0.0 x10^3/uL (0.0-0.2) Sodium Level 137 mmol/L (136-145) Potassium Level 4.9 mmol/L (3.5-5.1) Chloride Level 96 mmol/L (98-107) Carbon Dioxide Level 26 mmol/L (21-32) Anion Gap 15 (6-14) Blood Urea Nitrogen 21 mg/dL (7-20) Creatinine 4.5 mg/dL (0.6-1.0) Estimated GFR (Cockcroft-Gault) 12.2 BUN/Creatinine Ratio 5 (6-20) Glucose Level 182 mg/dL (70-99) Calcium Level 8.8 mg/dL (8.5-10.1) Magnesium Level 2.3 mg/dL (1.8-2.4) Total Bilirubin 0.3 mg/dL (0.2-1.0) Aspartate Amino Transf (AST/SGOT) 32 U/L (15-37) Alanine Aminotransferase (ALT/SGPT) 17 U/L (14-59) Alkaline Phosphatase 92 U/L (46-116) Total Protein 7.0 g/dL (6.4-8.2) Albumin 2.9 g/dL (3.4-5.0) Albumin/Globulin Ratio 0.7 (1.0-1.7) Test 12/06/18 07:01 Glucose (Fingerstick) 179 mg/dL (70-99) Micro Micro Microbiology 12/01/18 Blood Culture - Preliminary, Resulted NO GROWTH AFTER 4 DAYS Review of Systems Constitutional: yes: alert, oriented Ears/Nose/Throat: Yes: no symptom reported Pulmonary: Yes no symptom reported Cardiovascular: Yes no symptom reported Gastrointestional: Yes: no symptom reported Genitourinary: Yes: no symptom reported Musculoskeletal: Yes: foot pain, joint pain Psychiatric/Neurological: Yes: no symptom reported Physical Exam General Appearance: alert, oriented Skin: warm Respiratory: bilateral CTA Abdomen: bowel sounds present Genitourinary: bladder flat Extremities: pulses present Neurology: alert Assessment Assessment IMP ESRD ANEMIA HTN NON COMPLIANCE RIGHT FOOT GANGRENE SEVERE PAD S/P RIGHT BKA PLAN HD [facility] ANTIBIOTICS ENC COMPLIANCE WOUND CARE SUPPORTIVE CARE BENY PAINTER MD Dec 06, 2018 11:10
[2018-12-06] MEDS ORDERED: POLYETHYLENE GLYCOL 3350 17 GM PACKET. PO PRN (11:15)
[2018-12-06] MEDS ORDERED: MAGNESIUM HYDROXIDE 2,400 MG/30 ML ORAL.SUSP. PO PRN (11:15)
[2018-12-06] MEDS ORDERED: DOCUSATE SODIUM 100 MG CAPSULE. PO PRN (11:15)
[2018-12-06] MEDS: IV NORMAL SALINE 1000ML BAG 1,000 ML IV SCH (11:45)
--- NOTE | 2018-12-06 12:23 | PDOC ---
Provider Note Provider Note Vascular S: Patient seen and examined in room. Patient complains of right stump pain. O: Awake alert Vital signs stable, afebrile Right stump dressing removed, incision dry and intact, drain partially out removed drain. Left foot dressing removed, wound bed cleaning, periwound intact. A/P: PAD, right foot ischemia with dry gangrene Left fifth toe amputation site with poor healing POD #1 Right below knee amputation Left fifth toe amputation site debridement of subcutaneous tissue and skin. Recommend continue daily dressings to right BKA. Wound VAC placement to the left foot. Recommend angiogram with possible intervention left leg. Tentatively scheduled for tomorrow. Social service for discharge planning, recommend rehabilitation at discharge. PT/OT evaluate and treat for recent right below knee amputation NALLELY FERNANDES APRN Dec 06, 2018 12:23
[2018-12-06 15:00] VITALS: BP 141/50
--- NOTE | 2018-12-06 15:47 | NUR ---
SW following pt. PT recommends SNU- pt does not qualify for SNU due to insurance and recommendation will need to be changed to Acute rehab. Rehab department notified. SANTIAGO spoke with pt and discussed dc plan. Pt is interested in going to [place] but might benefit from rehab prior to going to [place]. Discussed options and pt chose [facility]. SANTIAGO phoned and faxed referral to [facility]. Pt acceptance and admission pending. Will continue to follow.
--- NOTE | 2018-12-06 15:54 | NUR ---
Wound Care: Follow up s/p L 5th toe amputation. Per Mary Jo RN, wet to dry dressing had been replaced to this wound 3 times prior to vac placement d/t self removal by patient. Upon entering room, pt was sitting up at edge of bed atempting to remove dressing from R BKA, and L foot. Educated on need to keep dressings on, and assisted pt with reinforcing BKA bandages with coban. Pt inattentive and difficult to keep on topic. Continued to complain of pain, but no meds available until 1630 per RN. L 5th toe amp site cleansed, pictured and measured. Ostomy ring applied to periwound, 1 piece silver foam used. Tracked to L dorsal foot, good seal achieved. No other open areas noted on head to toe assessment. Positioned legs over pillow, pt able to turn independently. Educated on offloading, uncertain if pt understands. Call light in reach, bed locked in low position and bed alarm on.
[2018-12-06] MEDS ORDERED: IV DEXTROSE 5% 250 ML BAG. IV PRN (17:45)
[2018-12-06] MEDS ORDERED: DEXTROSE 50% 25 GM / 50ML DISP.SYRIN. IV PRN (17:45)
[2018-12-06] MEDS: INSULIN LISPRO 300 UNITS/3 ML VIAL. SQ SCH (17:51)
[2018-12-06 19:00] VITALS: BP 152/47
[2018-12-06] MEDS: cefTRIAXone IV Push 1 GM VIAL. IVP SCH (21:06)
[2018-12-06] MEDS: LATANOPROST 0.005% OPHTH SOLUTION 2.5ML BOTTLE. OU SCH (21:06)
[2018-12-06] MEDS: ATORVASTATIN CALCIUM 40 MG TABLET. PO SCH (21:07)
[2018-12-06] MEDS: FAMOTIDINE 20 MG TABLET. PO SCH (21:07)
[2018-12-06 23:00] VITALS: BP 139/43
[2018-12-07] VITALS (9 sets, daily range): BP systolic 107–189; BP diastolic 53–78
[2018-12-07] MEDS: fentaNYL PF VIAL 100 MCG/2 ML VIAL IV PRN ×5 (01:06→18:31)
[2018-12-07] MEDS: HYDROcodone/APAP 10/325 1 TAB TABLET PO PRN ×3 (01:08→19:56)
[2018-12-07] MEDS ORDERED: ONDANSETRON PF 4 MG/2 ML VIAL. IV PRN (07:00)
[2018-12-07] MEDS ORDERED: PROCHLORPERAZINE 10 MG/2 ML VIAL. IV PRN (07:00)
[2018-12-07] MEDS ORDERED: LIDOCAINE 1% PF 2 ML VIAL. ID PRN (07:00)
[2018-12-07] MEDS ORDERED: fentaNYL PF VIAL 100 MCG/2 ML VIAL IV PRN ×2 (07:00)
[2018-12-07] MEDS ORDERED: IV RINGERS,LACTATED 1000ML 1,000 ML IV SCH (07:00)
[2018-12-07 07:16] LABS: BASO # 0.1 x10^3/uL (0.0-0.2); BASO % 1 % (0-3); EOS % 0 % (0-3); HEMATOCRIT 30.4 % (36.0-47.0); HEMOGLOBIN 10.4 g/dL (12.0-15.5); LYMPH # 1.5 x10^3/uL (1.0-4.8); LYMPH % 15 % (24-48); MEAN CORPUSCULAR HEMOGLOBIN 30 pg (25-35); MEAN CORPUSCULAR HGB CONC 34 g/dL (31-37); MEAN CORPUSCULAR VOLUME 89 fL (79-100); MONO # 1.4 x10^3/uL (0.0-1.1); MONO % 14 % (0-9); NEUT # 7.5 x10^3/uL (1.8-7.7); NEUT % 71 % (31-73); PLATELET COUNT 291 x10^3/uL (140-400); RED CELL DISTRIBUTION WIDTH 16.4 % (11.5-14.5); WHITE BLOOD COUNT 10.5 x10^3/uL (4.0-11.0)
[2018-12-07 07:35] LABS: CALCIUM 8.7 mg/dL (8.5-10.1); CREATININE 5.8 mg/dL (0.6-1.0); GFR 9.1
[2018-12-07] MEDS: CARVEDILOL 6.25 MG TABLET. PO SCH ×2 (08:00→16:53)
[2018-12-07] MEDS: INSULIN LISPRO 300 UNITS/3 ML VIAL. SQ SCH ×3 (08:00→17:00)
[2018-12-07] MEDS ORDERED: IV NORMAL SALINE 1000ML BAG 1,000 ML IV PRN (08:20)
[2018-12-07] MEDS ORDERED: DIALYSIS PATIENT. MC PRN (08:30)
[2018-12-07] MEDS ORDERED: ACETAMINOPHEN 500 MG TABLET PO PRN (08:30)
[2018-12-07] MEDS ORDERED: diphenhydrAMINE 50 MG/ML VIAL IV PRN ×2 (08:30)
[2018-12-07] MEDS: LACTOBACILLUS RHAMNOSUS GG 1 CAPSULE. PO SCH ×2 (09:00→20:09)
--- NOTE | 2018-12-07 10:06 | PDOC ---
Renal-Progress Notes Subjective Notes Notes PAIN History of Present Illness Hx of present illness STABLE Vitals Vitals Vital Signs Date Time Temp Pulse Resp B/P (MAP) Pulse Ox O2 Delivery O2 Flow Rate FiO2 12/07/18 09:26 Room Air 12/07/18 07:00 98.1 65 19 163/53 (89) 97 98.1 12/06/18 17:12 10.0 Weight Weight [ ] I.O. Intake and Output Intake and Output 12/07/18 06:59 Intake Total 250 ml Balance 250 ml Intake Oral 250 ml # Voids 1 # Bowel Movements 5 Labs Labs Laboratory Tests Test 12/06/18 11:31 12/06/18 16:54 12/06/18 20:37 12/07/18 06:30 Glucose (Fingerstick) 200 mg/dL (70-99) 215 mg/dL (70-99) 127 mg/dL (70-99) Magnesium Level 2.1 mg/dL (1.8-2.4) Test 12/07/18 06:40 12/07/18 07:29 White Blood Count 10.5 x10^3/uL (4.0-11.0) Red Blood Count 3.40 x10^6/uL (3.50-5.40) Hemoglobin 10.4 g/dL (12.0-15.5) Hematocrit 30.4 % (36.0-47.0) Mean Corpuscular Volume 89 fL (79-100) Mean Corpuscular Hemoglobin 30 pg (25-35) Mean Corpuscular Hemoglobin Concent 34 g/dL (31-37) Red Cell Distribution Width 16.4 % (11.5-14.5) Platelet Count 291 x10^3/uL (140-400) Neutrophils (%) (Auto) 71 % (31-73) Lymphocytes (%) (Auto) 15 % (24-48) Monocytes (%) (Auto) 14 % (0-9) Eosinophils (%) (Auto) 0 % (0-3) Basophils (%) (Auto) 1 % (0-3) Neutrophils # (Auto) 7.5 x10^3/uL (1.8-7.7) Lymphocytes # (Auto) 1.5 x10^3/uL (1.0-4.8) Monocytes # (Auto) 1.4 x10^3/uL (0.0-1.1) Eosinophils # (Auto) 0.0 x10^3/uL (0.0-0.7) Basophils # (Auto) 0.1 x10^3/uL (0.0-0.2) Sodium Level 136 mmol/L (136-145) Potassium Level 5.0 mmol/L (3.5-5.1) Chloride Level 98 mmol/L (98-107) Carbon Dioxide Level 28 mmol/L (21-32) Anion Gap 10 (6-14) Blood Urea Nitrogen 29 mg/dL (7-20) Creatinine 5.8 mg/dL (0.6-1.0) Estimated GFR (Cockcroft-Gault) 9.1 Glucose Level 108 mg/dL (70-99) Calcium Level 8.7 mg/dL (8.5-10.1) Glucose (Fingerstick) 97 mg/dL (70-99) Micro Micro Microbiology 12/01/18 Blood Culture - Final, Complete NO GROWTH AFTER 5 DAYS Review of Systems Constitutional: yes: alert, oriented Ears/Nose/Throat: Yes: no symptom reported Pulmonary: Yes no symptom reported Cardiovascular: Yes no symptom reported Gastrointestional: Yes: no symptom reported Genitourinary: Yes: no symptom reported Musculoskeletal: Yes: foot pain, joint pain Psychiatric/Neurological: Yes: no symptom reported Physical Exam General Appearance: alert, oriented Skin: warm Respiratory: bilateral CTA Abdomen: bowel sounds present Genitourinary: bladder flat Extremities: pulses present Neurology: alert Assessment Assessment IMP ESRD ANEMIA HTN NON COMPLIANCE RIGHT FOOT GANGRENE SEVERE PAD S/P RIGHT BKA PLAN HD TODAY UF TO DW PAIN CONTROL ANTIBIOTICS ENC COMPLIANCE WOUND CARE SUPPORTIVE CARE BENY PAINTER MD Dec 07, 2018 10:06
--- NOTE | 2018-12-07 10:31 | PDOC ---
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 - RECENT needs local wound care Dyslipidemia malnutrition polysubstance abuse hx Diffuse moderate to advanced atherosclerotic plaque in the lower EXT arteries with moderate stenosis in the mid SFA, Right lower extremity angiography with subsequent angioplasty of the right superficial femoral artery and anterior tibial artery SEPTEMBER 2018 History of Present Illness History of Present Illness She is out having left angio NO issues so far DNR, Agreeable to SNU to my delight EARLIER ENTRY: POD # 2 She pulled the JEFFREY drain somewhat and now is not suctioning 2 nights ago,. RN had 100cc from that JEFFREY drain Dressing off- wound /sutures inspected/looks good PLAn: stump care SW SNU DNR ff up ct angio result of left leg VACULOPATH hd per renal Vitals Vitals Vital Signs Date Time Temp Pulse Resp B/P (MAP) Pulse Ox O2 Delivery O2 Flow Rate FiO2 12/07/18 09:26 Room Air 12/07/18 07:00 98.1 65 19 163/53 (89) 97 98.1 12/06/18 17:12 10.0 Physical Exam General: Alert, Oriented X3, Cooperative, mild distress Heart: Regular rate, Normal S1, Normal S2, No murmurs Lungs: Clear Abdomen: Normal bowel sounds, Soft, No hepatosplenomegaly Extremities: Other (ischemic limb) Skin: No rashes, Other Labs LABS Laboratory Tests Test 12/06/18 11:31 12/06/18 16:54 12/06/18 20:37 12/07/18 06:30 Glucose (Fingerstick) 200 mg/dL (70-99) 215 mg/dL (70-99) 127 mg/dL (70-99) Magnesium Level 2.1 mg/dL (1.8-2.4) Test 12/07/18 06:40 12/07/18 07:29 White Blood Count 10.5 x10^3/uL (4.0-11.0) Red Blood Count 3.40 x10^6/uL (3.50-5.40) Hemoglobin 10.4 g/dL (12.0-15.5) Hematocrit 30.4 % (36.0-47.0) Mean Corpuscular Volume 89 fL (79-100) Mean Corpuscular Hemoglobin 30 pg (25-35) Mean Corpuscular Hemoglobin Concent 34 g/dL (31-37) Red Cell Distribution Width 16.4 % (11.5-14.5) Platelet Count 291 x10^3/uL (140-400) Neutrophils (%) (Auto) 71 % (31-73) Lymphocytes (%) (Auto) 15 % (24-48) Monocytes (%) (Auto) 14 % (0-9) Eosinophils (%) (Auto) 0 % (0-3) Basophils (%) (Auto) 1 % (0-3) Neutrophils # (Auto) 7.5 x10^3/uL (1.8-7.7) Lymphocytes # (Auto) 1.5 x10^3/uL (1.0-4.8) Monocytes # (Auto) 1.4 x10^3/uL (0.0-1.1) Eosinophils # (Auto) 0.0 x10^3/uL (0.0-0.7) Basophils # (Auto) 0.1 x10^3/uL (0.0-0.2) Sodium Level 136 mmol/L (136-145) Potassium Level 5.0 mmol/L (3.5-5.1) Chloride Level 98 mmol/L (98-107) Carbon Dioxide Level 28 mmol/L (21-32) Anion Gap 10 (6-14) Blood Urea Nitrogen 29 mg/dL (7-20) Creatinine 5.8 mg/dL (0.6-1.0) Estimated GFR (Cockcroft-Gault) 9.1 Glucose Level 108 mg/dL (70-99) Calcium Level 8.7 mg/dL (8.5-10.1) Glucose (Fingerstick) 97 mg/dL (70-99) Review of Systems Review of Systems out having CT angio - but ROS hard to get, she seldom stays focused Assessment and Plan Assessmemt and Plan Problems Medical Problems: (1) Acute anemia Status: Acute (2) Anasarca Status: Acute (3) ESRD on dialysis Status: Chronic (4) Gangrene of toe of right foot Status: Acute Comment Review of Relevant I have reviewed the following items pamela (where applicable) has been applied. Labs Laboratory Tests Test 12/05/18 14:40 12/05/18 16:38 12/05/18 21:03 12/06/18 05:35 Glucose (Fingerstick) 124 mg/dL (70-99) 181 mg/dL (70-99) 179 mg/dL (70-99) White Blood Count 11.6 x10^3/uL (4.0-11.0) Red Blood Count 4.05 x10^6/uL (3.50-5.40) Hemoglobin 12.1 g/dL (12.0-15.5) Hematocrit 36.6 % (36.0-47.0) Mean Corpuscular Volume 91 fL (79-100) Mean Corpuscular Hemoglobin 30 pg (25-35) Mean Corpuscular Hemoglobin Concent 33 g/dL (31-37) Red Cell Distribution Width 16.7 % (11.5-14.5) Platelet Count 245 x10^3/uL (140-400) Neutrophils (%) (Auto) 78 % (31-73) Lymphocytes (%) (Auto) 12 % (24-48) Monocytes (%) (Auto) 10 % (0-9) Eosinophils (%) (Auto) 0 % (0-3) Basophils (%) (Auto) 0 % (0-3) Neutrophils # (Auto) 9.0 x10^3/uL (1.8-7.7) Lymphocytes # (Auto) 1.4 x10^3/uL (1.0-4.8) Monocytes # (Auto) 1.2 x10^3/uL (0.0-1.1) Eosinophils # (Auto) 0.0 x10^3/uL (0.0-0.7) Basophils # (Auto) 0.0 x10^3/uL (0.0-0.2) Sodium Level 137 mmol/L (136-145) Potassium Level 4.9 mmol/L (3.5-5.1) Chloride Level 96 mmol/L (98-107) Carbon Dioxide Level 26 mmol/L (21-32) Anion Gap 15 (6-14) Blood Urea Nitrogen 21 mg/dL (7-20) Creatinine 4.5 mg/dL (0.6-1.0) Estimated GFR (Cockcroft-Gault) 12.2 BUN/Creatinine Ratio 5 (6-20) Glucose Level 182 mg/dL (70-99) Calcium Level 8.8 mg/dL (8.5-10.1) Magnesium Level 2.3 mg/dL (1.8-2.4) Total Bilirubin 0.3 mg/dL (0.2-1.0) Aspartate Amino Transf (AST/SGOT) 32 U/L (15-37) Alanine Aminotransferase (ALT/SGPT) 17 U/L (14-59) Alkaline Phosphatase 92 U/L (46-116) Total Protein 7.0 g/dL (6.4-8.2) Albumin 2.9 g/dL (3.4-5.0) Albumin/Globulin Ratio 0.7 (1.0-1.7) Test 12/06/18 07:01 12/06/18 11:31 12/06/18 16:54 12/06/18 20:37 Glucose (Fingerstick) 179 mg/dL (70-99) 200 mg/dL (70-99) 215 mg/dL (70-99) 127 mg/dL (70-99) Test 12/07/18 06:30 12/07/18 06:40 12/07/18 07:29 Magnesium Level 2.1 mg/dL (1.8-2.4) White Blood Count 10.5 x10^3/uL (4.0-11.0) Red Blood Count 3.40 x10^6/uL (3.50-5.40) Hemoglobin 10.4 g/dL (12.0-15.5) Hematocrit 30.4 % (36.0-47.0) Mean Corpuscular Volume 89 fL (79-100) Mean Corpuscular Hemoglobin 30 pg (25-35) Mean Corpuscular Hemoglobin Concent 34 g/dL (31-37) Red Cell Distribution Width 16.4 % (11.5-14.5) Platelet Count 291 x10^3/uL (140-400) Neutrophils (%) (Auto) 71 % (31-73) Lymphocytes (%) (Auto) 15 % (24-48) Monocytes (%) (Auto) 14 % (0-9) Eosinophils (%) (Auto) 0 % (0-3) Basophils (%) (Auto) 1 % (0-3) Neutrophils # (Auto) 7.5 x10^3/uL (1.8-7.7) Lymphocytes # (Auto) 1.5 x10^3/uL (1.0-4.8) Monocytes # (Auto) 1.4 x10^3/uL (0.0-1.1) Eosinophils # (Auto) 0.0 x10^3/uL (0.0-0.7) Basophils # (Auto) 0.1 x10^3/uL (0.0-0.2) Sodium Level 136 mmol/L (136-145) Potassium Level 5.0 mmol/L (3.5-5.1) Chloride Level 98 mmol/L (98-107) Carbon Dioxide Level 28 mmol/L (21-32) Anion Gap 10 (6-14) Blood Urea Nitrogen 29 mg/dL (7-20) Creatinine 5.8 mg/dL (0.6-1.0) Estimated GFR (Cockcroft-Gault) 9.1 Glucose Level 108 mg/dL (70-99) Calcium Level 8.7 mg/dL (8.5-10.1) Glucose (Fingerstick) 97 mg/dL (70-99) Laboratory Tests Test 12/06/18 11:31 12/06/18 16:54 12/06/18 20:37 12/07/18 06:30 Glucose (Fingerstick) 200 mg/dL (70-99) 215 mg/dL (70-99) 127 mg/dL (70-99) Magnesium Level 2.1 mg/dL (1.8-2.4) Test 12/07/18 06:40 12/07/18 07:29 White Blood Count 10.5 x10^3/uL (4.0-11.0) Red Blood Count 3.40 x10^6/uL (3.50-5.40) Hemoglobin 10.4 g/dL (12.0-15.5) Hematocrit 30.4 % (36.0-47.0) Mean Corpuscular Volume 89 fL (79-100) Mean Corpuscular Hemoglobin 30 pg (25-35) Mean Corpuscular Hemoglobin Concent 34 g/dL (31-37) Red Cell Distribution Width 16.4 % (11.5-14.5) Platelet Count 291 x10^3/uL (140-400) Neutrophils (%) (Auto) 71 % (31-73) Lymphocytes (%) (Auto) 15 % (24-48) Monocytes (%) (Auto) 14 % (0-9) Eosinophils (%) (Auto) 0 % (0-3) Basophils (%) (Auto) 1 % (0-3) Neutrophils # (Auto) 7.5 x10^3/uL (1.8-7.7) Lymphocytes # (Auto) 1.5 x10^3/uL (1.0-4.8) Monocytes # (Auto) 1.4 x10^3/uL (0.0-1.1) Eosinophils # (Auto) 0.0 x10^3/uL (0.0-0.7) Basophils # (Auto) 0.1 x10^3/uL (0.0-0.2) Sodium Level 136 mmol/L (136-145) Potassium Level 5.0 mmol/L (3.5-5.1) Chloride Level 98 mmol/L (98-107) Carbon Dioxide Level 28 mmol/L (21-32) Anion Gap 10 (6-14) Blood Urea Nitrogen 29 mg/dL (7-20) Creatinine 5.8 mg/dL (0.6-1.0) Estimated GFR (Cockcroft-Gault) 9.1 Glucose Level 108 mg/dL (70-99) Calcium Level 8.7 mg/dL (8.5-10.1) Glucose (Fingerstick) 97 mg/dL (70-99) Microbiology 12/01/18 Blood Culture - Final, Complete NO GROWTH AFTER 5 DAYS Medications Current Medications Fentanyl Citrate (Fentanyl 2ml Vial) 50 mcg 1X STAT IV Last administered on 12/01/18at 15:29; Start 12/01/18 at 15:21; Stop 12/01/18 at 15:23; Status DC Fentanyl Citrate (Fentanyl 2ml Vial) 50 mcg 1X STAT IV Last administered on 12/01/18at 16:24; Start 12/01/18 at 16:09; Stop 12/01/18 at 16:11; Status DC Ondansetron HCl (Zofran) 4 mg PRN Q8HRS PRN IV NAUSEA/VOMITING; Start 12/01/18 at 16:30; Stop 12/02/18 at 16:29; Status DC Fentanyl Citrate (Fentanyl 2ml Vial) 50 mcg PRN Q1HR PRN IV PAIN Last administered on 12/02/18 07:33; Start 12/01/18 at 16:30; Stop 12/02/18 at 08:48; Status DC Pharmacy Consult (C.diff Med Screen By Rx) 1 each 1X ONCE MC ; Start 12/01/18 at 18:15; Stop 12/01/18 at 18:16; Status Cancel Albuterol Sulfate (Ventolin Neb Soln) 2.5 mg PRN Q4HRS PRN NEB SHORTNESS OF BREATH; Start 12/01/18 at 19:30 Alprazolam (Xanax) 0.5 mg PRN TID PRN PO ANXIETY / AGITATION Last administered on 12/06/18at 07:41; Start 12/01/18 at 19:30 Amlodipine Besylate (Norvasc) 10 mg DAILY PO Last administered on 12/06/18 07:41; Start 12/02/18 at 09:00 Atorvastatin Calcium (Lipitor) 40 mg HS PO Last administered on 12/06/18 21:12; Start 12/01/18 at 21:00 Carvedilol (Coreg) 6.25 mg BIDWMEALS PO Last administered on 12/06/18 17:51; Start 12/02/18 at 08:00 Clonidine HCl (Catapres Tts-2) 1 patch WEEKLY TD ; Start 12/08/18 at 09:00 Acetaminophen/ Hydrocodone Bitart (Lortab 5/325) 1 tab BID PO ; Start 12/01/18 at 21:00; Status Cancel Acetaminophen/ Hydrocodone Bitart (Lortab 5/325) 1 tab PRN Q6HRS PRN PO PAIN Last administered on 12/02/18 04:43; Start 12/01/18 at 19:30; Stop 12/02/18 at 08:48; Status DC Latanoprost (Xalatan) 1 drop HS OU Last administered on 12/06/18 21:12; Start 12/01/18 at 21:00 Levothyroxine Sodium (Synthroid) 50 mcg DAILY PO Last administered on 12/06/18 07:41; Start 12/02/18 at 09:00 Lisinopril (Prinivil) 20 mg DAILY PO Last administered on 12/06/18 07:41; Start 12/02/18 at 09:00 Prochlorperazine Maleate (Compazine) 5 mg PRN TID PRN PO NAUSEA Last administered on 12/03/18 19:56; Start 12/01/18 at 19:30 Sertraline HCl (Zoloft) 50 mg DAILY PO Last administered on 12/06/18 07:41; Start 12/02/18 at 09:00 Acetaminophen (Tylenol) 650 mg PRN Q6HRS PRN PO MILD PAIN / TEMP; Start 12/01/18 at 19:45 Amylase/Lipase/ Protease (Zenpep 5,000) 1 cap TIDWMEALS PO Last administered on 12/06/18 17:51; Start 12/02/18 at 08:00 Famotidine (Pepcid) 20 mg HS PO Last administered on 12/06/18 21:12; Start 12/01/18 at 21:00 Non-Formulary Medication ([Pantoprazole] ) 40 mg DAILYAC PO ; Start 12/02/18 at 07:30; Status UNV Ceftriaxone Sodium (Rocephin) 1 gm Q24H IVP Last administered on 12/06/18 21:12; Start 12/01/18 at 20:00 Vitamin B Complex/ Vitamin C (Pinky-Shreya) 1 tab DAILY PO Last administered on 12/06/18 07:41; Start 12/02/18 at 09:00 Fentanyl Citrate (Fentanyl 2ml Vial) 75 mcg PRN Q2HR PRN IV PAIN Last administered on 12/03/18 07:36; Start 12/02/18 at 09:00; Stop 12/03/18 at 08:59; Status DC Acetaminophen/ Hydrocodone Bitart (Lortab 5/325) 2 tab PRN Q6HRS PRN PO MODERATE - SEVERE PAIN Last administered on 12/02/18 18:55; Start 12/02/18 at 09:00; Stop 12/03/18 at 10:41; Status DC Magnesium Sulfate 50 ml @ 25 mls/hr PRN DAILY PRN IV for Mag < 1.7 on am labs; Start 12/02/18 at 09:30 Darbepoetin Jarrett (ARANESP for DIALYSIS PTS) 60 mcg WEEKLYHS SQ Last administered on 12/02/18at 21:00; Start 12/02/18 at 21:00 Lactobacillus Rhamnosus (Culturelle) 1 cap BID PO Last administered on 12/06/18at 21:12; Start 12/02/18 at 21:00 Fentanyl Citrate (Fentanyl 2ml Vial) 100 mcg PRN Q2HR PRN IV PAIN Last administered on 12/07/18at 10:16; Start 12/03/18 at 09:45 Fentanyl Citrate (Fentanyl 2ml Vial) 100 mcg STK-MED ONCE .ROUTE ; Start 12/03/18 at 09:45; Stop 12/03/18 at 09:45; Status DC Sodium Chloride 1,000 ml @ 1,000 mls/hr Q1H PRN IV hypotension; Start 12/03/18 at 10:12; Stop 12/03/18 at 16:11; Status DC Albumin Human 200 ml @ 200 mls/hr 1X PRN PRN IV Hypotension; Start 12/03/18 at 10:15; Stop 12/03/18 at 16:14; Status DC Sodium Chloride (Normal Saline Flush) 10 ml 1X PRN PRN IV AP catheter pack; Start 12/03/18 at 10:15; Stop 12/04/18 at 10:14; Status DC Sodium Chloride (Normal Saline Flush) 10 ml 1X PRN PRN IV CLIENT COORDINATOR catheter pack; Start 12/03/18 at 10:15; Stop 12/04/18 at 10:14; Status DC Sodium Chloride 1,000 ml @ 400 mls/hr Q2H30M PRN IV PATENCY; Start 12/03/18 at 10:12; Stop 12/03/18 at 22:11; Status DC Info (PHARMACY MONITORING -- do not chart) 1 each PRN DAILY PRN MC SEE COMMENTS; Start 12/03/18 at 10:15; Status UNV Info (PHARMACY MONITORING -- do not chart) 1 each PRN DAILY PRN MC SEE COMMENTS; Start 12/03/18 at 10:15 Acetaminophen/ Hydrocodone Bitart (Lortab 10/325) 1 tab PRN Q4HRS PRN PO MODERATE TO SEVERE PAIN Last administered on 12/07/18at 09:26; Start 12/03/18 at 10:45 Ondansetron HCl (Zofran) 4 mg PRN Q6HRS PRN IV NAUSEA/VOMITING; Start 12/05/18 at 07:00; Stop 12/05/18 at 07:01; Status DC Fentanyl Citrate (Fentanyl 2ml Vial) 25 mcg PRN Q5MIN PRN IV MILD PAIN 1-3; Start 12/05/18 at 07:00; Stop 12/05/18 at 20:00; Status DC Fentanyl Citrate (Fentanyl 2ml Vial) 50 mcg PRN Q5MIN PRN IV MODERATE TO SEVERE PAIN Last administered on 12/05/18at 14:59; Start 12/05/18 at 07:00; Stop 12/05/18 at 20:00; Status DC Ringer's Solution 1,000 ml @ 30 mls/hr Q24H IV ; Start 12/05/18 at 07:00; Stop 12/05/18 at 11:44; Status DC Lidocaine HCl (Xylocaine-Mpf 1% 2ml Vial) 2 ml PRN 1X PRN ID PRIOR TO IV START; Start 12/05/18 at 07:00; Stop 12/05/18 at 20:00; Status DC Prochlorperazine Edisylate (Compazine) 5 mg PACU PRN PRN IV NAUSEA, MRX1 Last administered on 12/05/18at 14:59; Start 12/05/18 at 07:00; Stop 12/05/18 at 20:00; Status DC Bacitracin 78306 unit/Sodium Chloride 500 ml @ 500 mls/hr 1X ONCE IRR Last administered on 12/05/18at 12:29; Start 12/05/18 at 06:00; Stop 12/05/18 at 06:59; Status DC Sodium Chloride 1,000 ml @ 1,000 mls/hr Q1H PRN IV hypotension; Start 12/05/18 at 07:31; Stop 12/05/18 at 13:30; Status DC Diphenhydramine HCl (Benadryl) 25 mg 1X PRN PRN IV ITCHING; Start 12/05/18 at 07:45; Stop 12/06/18 at 07:44; Status DC Diphenhydramine HCl (Benadryl) 25 mg 1X PRN PRN IV ITCHING; Start 12/05/18 at 07:45; Stop 12/06/18 at 07:44; Status DC Sodium Chloride 1,000 ml @ 400 mls/hr Q2H30M PRN IV PATENCY; Start 12/05/18 at 07:31; Stop 12/05/18 at 19:30; Status DC Info (PHARMACY MONITORING -- do not chart) 1 each PRN DAILY PRN MC SEE COMMENTS; Start 12/05/18 at 07:45; Stop 12/05/18 at 07:35; Status DC Info (PHARMACY MONITORING -- do not chart) 1 each PRN DAILY PRN MC SEE COMMENTS; Start 12/05/18 at 07:45; Status UNV Ondansetron HCl (Zofran) 4 mg 1X STAT IV Last administered on 12/05/18at 09:45; Start 12/05/18 at 09:34; Stop 12/05/18 at 09:35; Status DC Sodium Chloride 1,000 ml @ 30 mls/hr Q24H IV Last administered on 12/06/18at 11:56; Start 12/05/18 at 11:45 Propofol 20 ml @ As Directed STK-MED ONCE IV ; Start 12/05/18 at 12:06; Stop 12/05/18 at 12:06; Status DC Lidocaine HCl (Lidocaine Pf 2% Vial) 5 ml STK-MED ONCE .ROUTE ; Start 12/05/18 at 12:06; Stop 12/05/18 at 12:06; Status DC Fentanyl Citrate (Fentanyl 2ml Vial) 100 mcg STK-MED ONCE .ROUTE ; Start 12/05/18 at 12:06; Stop 12/05/18 at 12:06; Status DC Cefazolin Sodium/ Dextrose 50 ml @ 100 mls/hr 1X PREOP PRN IV PRIOR TO PROCEDURE Last administered on 12/05/18at 13:37; Start 12/05/18 at 13:00; Stop 12/06/18 at 12:59; Status DC Dexamethasone Sodium Phosphate (Decadron) 4 mg STK-MED ONCE .ROUTE ; Start 12/05/18 at 13:16; Stop 12/05/18 at 13:16; Status DC Ondansetron HCl (Zofran) 4 mg STK-MED ONCE .ROUTE ; Start 12/05/18 at 13:16; Stop 12/05/18 at 13:16; Status DC Sevoflurane (Ultane) 60 ml STK-MED ONCE IH ; Start 12/05/18 at 13:16; Stop 12/05/18 at 13:16; Status DC Hydralazine HCl (Apresoline Inj) 20 mg STK-MED ONCE .ROUTE ; Start 12/05/18 at 13:28; Stop 12/05/18 at 13:28; Status DC Ephedrine Sulfate (ePHEDrine PF IN SALINE SYRINGE) 50 mg STK-MED ONCE IV ; Start 12/05/18 at 14:09; Stop 12/05/18 at 14:09; Status DC Hydromorphone HCl (Dilaudid) 0.5 mg PRN Q10MIN PRN IV pain Last administered on 12/05/18at 15:56; Start 12/05/18 at 15:00; Stop 12/05/18 at 20:00; Status DC Ondansetron HCl (Zofran) 4 mg PRN Q6HRS PRN IV NAUSEA/VOMITING; Start 12/07/18 at 07:00; Stop 12/08/18 at 06:59 Fentanyl Citrate (Fentanyl 2ml Vial) 25 mcg PRN Q5MIN PRN IV MILD PAIN 1-3; Start 12/07/18 at 07:00; Stop 12/08/18 at 06:59 Fentanyl Citrate (Fentanyl 2ml Vial) 50 mcg PRN Q5MIN PRN IV MODERATE TO SEVERE PAIN; Start 12/07/18 at 07:00; Stop 12/08/18 at 06:59 Ringer's Solution 1,000 ml @ 30 mls/hr Q24H IV ; Start 12/07/18 at 07:00; Stop 12/07/18 at 18:59 Lidocaine HCl (Xylocaine-Mpf 1% 2ml Vial) 2 ml PRN 1X PRN ID PRIOR TO IV START; Start 12/07/18 at 07:00; Stop 12/08/18 at 06:59 Prochlorperazine Edisylate (Compazine) 5 mg PACU PRN PRN IV NAUSEA, MRX1; Start 12/07/18 at 07:00; Stop 12/08/18 at 06:59 Docusate Sodium (Colace) 100 mg PRN DAILY PRN PO CONSTIPATION; Start 12/06/18 at 11:15 Magnesium Hydroxide (Milk Of Magnesia) 2,400 mg PRN DAILY PRN PO CONSTIPATION; Start 12/06/18 at 11:15 Polyethylene Glycol (miraLAX PACKET) 17 gm PRN DAILY PRN PO CONSTIPATION; Start 12/06/18 at 11:15 Insulin Human Lispro (HumaLOG) 0-5 UNITS TIDWMEALS SQ Last administered on 12/06/18at 17:51; Start 12/06/18 at 18:00 Dextrose (Dextrose 50%-Water Syringe) 12.5 gm PRN Q15MIN PRN IV SEE COMMENTS; Start 12/06/18 at 17:45 Dextrose 250 ml PRN Q15MIN PRN IV SEE COMMENTS; Start 12/06/18 at 17:45 Sodium Chloride 1,000 ml @ 1,000 mls/hr Q1H PRN IV hypotension; Start 12/07/18 at 08:20; Stop 12/07/18 at 14:19 Acetaminophen (Tylenol) 1,000 mg 1X PRN PRN PO MILD PAIN / TEMP; Start 12/07/18 at 08:30; Stop 12/08/18 at 08:29 Diphenhydramine HCl (Benadryl) 25 mg 1X PRN PRN IV ITCHING; Start 12/07/18 at 08:30; Stop 12/08/18 at 08:29 Diphenhydramine HCl (Benadryl) 25 mg 1X PRN PRN IV ITCHING; Start 12/07/18 at 08:30; Stop 12/08/18 at 08:29 Info (PHARMACY MONITORING -- do not chart) 1 each PRN DAILY PRN MC SEE COMMENTS; Start 12/07/18 at 08:30 Active Scripts Active Tylenol (Acetaminophen) 325 Mg Capsule 650 Mg PO Q6-8HRS PRN Griffin 5-325 Tablet (Acetaminophen/Hydrocodone Bitart) 1 Each Tablet 1 Tab PO BID 5 Days Griffin 5-325 Tablet (Acetaminophen/Hydrocodone Bitart) 1 Each Tablet 1 Tab PO PRN Q6HRS PRN Alprazolam 0.5 Mg Tablet 0.5 Mg PO PRN TID PRN MDD 1 Zantac (Ranitidine Hcl) 300 Mg Tablet 1 Tab PO QHS Compazine (Prochlorperazine Maleate) 5 Mg Tablet 5 Mg PO PRN TID PRN 10 Days [Pantoprazole] 40 MG Tablet.dr 40 Mg PO DAILYAC 30 Days Reported Zoloft (Sertraline Hcl) 50 Mg Tablet 50 Mg PO DAILY Lisinopril 20 Mg Tablet 20 Mg PO DAILY Coreg (Carvedilol) 6.25 Mg Tablet 6.25 Mg PO [address]IA [address] Dr 6,000 Units Capsule (Lipase/Protease/Amylase) 1 Each Capsule. 1 Tab PO TID Proair Hfa (Albuterol Sulfate) 8.5 Gm Hfa.aer.ad 2 Puff INH BID PRN Levothyroxine Sodium 50 Mcg Tablet 1 Tab PO DAILY Clonidine Tts-2 (Clonidine) 1 Each Patch.tdwk 1 Patch TD WEEKLY Amlodipine Besylate 5 Mg Tablet 10 Mg PO DAILY Atorvastatin Calcium 40 Mg Tablet 40 Mg PO HS Latanoprost 2.5 Ml Drops 1 Drop EACHEYE HS Vitals/I & O Vital Sign - Last 24 Hours 12/06/18 12/06/18 12/06/18 12/06/18 11:00 11:14 11:47 12:14 Temp 98.2 98.2 Pulse 67 Resp 17 B/P (MAP) 110/60 (77) Pulse Ox 99 O2 Delivery Room Air Room Air Room Air Room Air 12/06/18 12/06/18 12/06/18 12/06/18 13:00 13:00 14:29 14:50 O2 Delivery Room Air Room Air Room Air Room Air 12/06/18 12/06/18 12/06/18 12/06/18 15:00 17:12 17:12 17:43 Temp 98.1 98.1 Pulse 66 Resp 17 20 20 B/P (MAP) 141/50 (80) Pulse Ox 99 99 99 O2 Delivery Room Air Room Air Room Air Room Air O2 Flow Rate 10.0 10.0 12/06/18 12/06/18 12/06/18 12/06/18 17:51 18:09 19:00 19:15 Temp 98.4 98.4 Pulse 66 66 Resp 17 B/P (MAP) 141/50 152/47 (82) Pulse Ox 98 O2 Delivery Room Air Room Air Room Air 12/06/18 12/06/18 12/06/18 12/06/18 20:00 20:13 21:12 21:12 O2 Delivery Room Air Room Air Room Air Room Air 12/06/18 12/06/18 12/06/18 12/07/18 22:18 22:18 23:00 01:06 Temp 98.4 98.4 Pulse 65 Resp 17 B/P (MAP) 139/43 (75) Pulse Ox 98 O2 Delivery Room Air Room Air Room Air Room Air 12/07/18 12/07/18 12/07/18 12/07/18 01:08 01:41 02:52 03:00 Temp 97.9 97.9 Pulse 69 Resp 17 B/P (MAP) 171/69 (103) Pulse Ox 100 O2 Delivery Room Air Room Air Room Air Room Air 12/07/18 12/07/18 07:00 09:26 Temp 98.1 98.1 Pulse 65 Resp 19 B/P (MAP) 163/53 (89) Pulse Ox 97 O2 Delivery Room Air Room Air Intake and Output 12/06/18 12/06/18 12/07/18 14:59 22:59 06:59 Intake Total 250 ml Balance 250 ml PRABHAKAR MOSQUERA MD Dec 07, 2018 10:31
[2018-12-07] MEDS: IV NORMAL SALINE 1000ML BAG 1,000 ML IV SCH (12:24)
[2018-12-07] MEDS ORDERED: LIDOCAINE WITH 8.4% SOD BICARB 3 ML DISP.SYRIN. ONE (12:26)
[2018-12-07] MEDS ORDERED: HEPARIN for ARTERIAL LINE 1,500 ML ONE (12:26)
[2018-12-07] MEDS ORDERED: IODIXANOL 320 MG/ML 50ML VIAL. ONE (12:26)
[2018-12-07] MEDS ORDERED: IODIXANOL 320 MG/ML 100 ML VIAL. ONE (12:32)
--- NOTE | 2018-12-07 12:47 | NUR ---
SW following pt. [facility] declined pt-they do not take Medicaid pts on HD. Spoke with pt and pt's daughter, Kimberli on speaker phone: [phone]. Pt's requested to go to [facility] and SW discussed Medicaid does not cover SNU but covers inpatient rehab. Discussed other options for inpatient rehab. Pt declined [facility] but agreeable with [facility]. Pt and pt's daughter are notified acceptance/insurance auth is required before dc. Plan 1. SANTIAGO phoned and faxed referral to [facility], , fax; [phone]. Acceptance pending. D/w with Paulino at [facility] and she will attempt to visit pt later in the day. 2. Supportive counseling, 3. Will continue to f/u with dc planning. D/W RN.
[2018-12-07] MEDS ORDERED: LIDOCAINE 2% PF 5 ML VIAL. ONE (13:30)
[2018-12-07] MEDS ORDERED: SEVOFLURANE 61 TO 120 MINUTES. IH ONE ×2 (13:30→14:44)
[2018-12-07] MEDS ORDERED: ONDANSETRON PF 4 MG/2 ML VIAL. ONE (13:30)
[2018-12-07] MEDS ORDERED: PROPOFOL 20 ML IV ONE (13:30)
[2018-12-07] MEDS ORDERED: HEPARIN for IV BOLUS 10,000 UNIT/10 ML VIAL. ONE (13:49)
[2018-12-07] MEDS ORDERED: DEXAMETHASONE SOD PHOS 4 MG/ML VIAL ONE (13:51)
[2018-12-07] MEDS ORDERED: IODIXANOL 320 MG/ML 100 ML VIAL. IART ONE (14:15)
[2018-12-07] MEDS ORDERED: LIDOCAINE WITH 8.4% SOD BICARB 3 ML DISP.SYRIN. IJ ONE (14:15)
[2018-12-07] MEDS ORDERED: CONTRAST GIVEN. MC PRN (14:15)
[2018-12-07] MEDS ORDERED: HEPARIN for IV BOLUS 10,000 UNIT/10 ML VIAL. IV ONE (14:30)
--- NOTE | 2018-12-07 15:07 | PATHOLOGY ---
[facility] Accession Number: [id number] . 01 Material submitted: . knee - RIGHT BELOW KNEE AMPUTATION. Modifiers: right . 01 Clinical history: . Gangrene right foot . 02 Diagnosis: Lower leg, right, below knee amputation: - Skin and soft tissue with ulcer and gangrenous necrosis. - Necrosis involves underlying bone and bone marrow. - Anterior and posterior tibial arteries with coarse calcifications. - Viable soft tissue resection margin. (MAP:[facility] [place]; 12/07/2018) [facility] 12/07/2018 1237 Local . 02 Electronically signed: . Sam Rudd MD, Pathologist NPI- [id number] . 01 Gross description: . Received fresh in a red biohazard bag labeled "Jenifer Salazar, right below the knee amputation" is a right below the knee amputation specimen measuring 24.0 cm heel to proximal skin soft tissue margin and 23.0 cm heel to first toe. Protruding from the margin is the tibia (4.0 cm in length and 1.5 cm in diameter) and fibula (5.0 cm in length and 3.0 cm in diameter). The skin soft tissue margin and bone margins appear viable. All 5 toes are present with yellow thickened nails. The first, second and fifth toe show extensive mummification. Rest of the skin is brown without any additional lesions. The tibial vasculature displays markedly calcified lumens. Student Teaching Coordinator sections are submitted as follows: . A1: Skin soft tissue margin A2: First toe mummification A3: Bone underlying first toe mummification A4: Anterior and posterior tibial vasculature (anterior inked black) A3 and A4 will be submitted following decalcification. (SDY; 12/06/2018) SYU/SYU 12/06/[address] [place] [address] . 02 Pathologist provided ICD-10: I70.261 . 02 CPT . 866531, 096601 Specimen Comment: A courtesy copy of this report has been sent to Specimen Comment: [phone], , . Specimen Comment: Report sent to ,DR NARANJO / DR MUELLER Performed at: [address], [place], [place] [id number] MD Jamie Pinzon MD Phone: [phone] Performed at: [address] [id number] MD Verito Christy MD Phone: [phone]
--- NOTE | 2018-12-07 15:50 | RAD ---
12/07/2018 1:41 PM Procedure: 1. Left lower extremity angiography 2. Angioplasty left anterior tibial artery Clinical Indication: PVD, poor healing left fifth toe amputation AARO left leg Discussion: The procedure was explained in its entirety to the patient or the patients designated title insurance sales representative by a member of the treatment team, including a discussion of the risks, benefits and commonly accepted alternatives to the procedure, as well as the expected consequences of no therapy whatsoever. Discussion of the risks included, but was not limited to, those that are most frequent and those that are rare but possibly severe or life-threatening, as well as the possibility of unforeseen complications. All elements of maximal sterile barrier technique including the use of a cap, mask, sterile gown, sterile gloves, large sterile sheet, appropriate hand hygiene, and 2% chlorhexidine for cutaneous antisepsis (or acceptable alternative antiseptic per current guidelines) were followed for this procedure. The right groin was prepped and draped using sterile barrier technique as described. Ultrasound evaluation demonstrates the common femoral artery to be calcified but overall patent. Some mild to moderate narrowing in the distal common femoral artery appears to be present. The artery was accessed under direct ultrasound guidance using micropuncture technique. Reference ultrasound images were saved medical record. A 5 [place] vascular sheath was placed. The aortic bifurcation was crossed. Left lower extremity angiography was performed. Visualized left internal and external iliac arteries are patent. Left common femoral artery is patent. Moderate to high-grade stenosis of the left profunda artery noted. Left superficial femoral artery is grossly patent. Mild nonflow limiting stenoses noted. Left SFA stent remains patent. The popliteal artery remains patent. The left anterior tibial artery is patent to approximately 10 cm above the ankle where multifocal high-grade stenoses. The artery then extends to just below the ankle joint where the dorsalis pedis artery occludes. Some filling of the more distal foot reveal small, we collaterals noted. The profunda artery is patent to the ankle. The posterior tibial artery is chronically occluded, unchanged from prior angiograms. Significant filling of the lateral plantar artery, and posterior foot was not observed. Approximately 2-3 months ago the patient underwent angioplasty of the left anterior tibial artery. Unfortunately with no significant outflow, the recurrent stenosis is not expected. Given patient's clinical status however repeat angioplasty of the left anterior tibial artery was performed with 2 mm balloon which resulted in significantly improved morphology and flow to the level of the proximal foot. No suitable distal target for further angioplasty ultrasounds pedis was identified. Wires were removed. A closure device was deployed in the right common femoral artery to help achieve hemostasis. Sterile dressings were applied. Total fluoroscopy time: 9.4 min Dose area product: 15 Gycm2 The procedures performed under general anesthesia. Refer to anesthesia notes for further details. Impression: Recurrent multifocal high-grade stenoses of the distal anterior tibial artery which is essentially the sole blood flow to the foot. Repeat angioplasty improved flow through this artery, an attempt to supply small collateral arteries more distally. Unfortunately the dorsalis pedis artery is occluded fairly proximally with nonvisualization of the lateral plantar artery or other large caliber of the arteries of the foot.
[2018-12-07] MEDS: FOLIC/VIT B COMP W-C (RENAL) TABLET. PO SCH (16:50)
[2018-12-07] MEDS: LEVOTHYROXINE 50 MCG TABLET PO SCH (16:50)
[2018-12-07] MEDS: amLODIPine BESYLATE 5 MG TABLET PO SCH (16:51)
[2018-12-07] MEDS: SERTRALINE 50 MG TABLET. PO SCH (16:51)
[2018-12-07] MEDS: LISINOPRIL 20 MG TABLET PO SCH (16:52)
--- NOTE | 2018-12-07 16:53 | NUR ---
Pt morning medications held this am due to pt going to dialysis and being NPO for a procedure. Daily medications given at this time, including daily BP meds. Pt BP at this time is 189/65, pulse is 86. Pt is lying flat, resting comfortably, there are no signs of bleeding post-procedure. This RN will continue to monitor the pt.
[2018-12-07] MEDS: cefTRIAXone IV Push 1 GM VIAL. IVP SCH (20:08)
[2018-12-07] MEDS: ATORVASTATIN CALCIUM 40 MG TABLET. PO SCH (20:09)
[2018-12-07] MEDS: ALPRAZolam 0.5 MG TABLET PO PRN (20:09)
[2018-12-07] MEDS: LATANOPROST 0.005% OPHTH SOLUTION 2.5ML BOTTLE. OU SCH (20:09)
[2018-12-07] MEDS: FAMOTIDINE 20 MG TABLET. PO SCH (20:09)
[2018-12-08] MEDS: fentaNYL PF VIAL 100 MCG/2 ML VIAL IV PRN ×7 (00:53→23:14)
[2018-12-08 03:00] VITALS: BP 134/65
[2018-12-08] MEDS: HYDROcodone/APAP 10/325 1 TAB TABLET PO PRN ×4 (04:56→17:02)
[2018-12-08 07:00] VITALS: BP 138/47
[2018-12-08] MEDS: INSULIN LISPRO 300 UNITS/3 ML VIAL. SQ SCH ×3 (08:00→17:01)
[2018-12-08] MEDS: LEVOTHYROXINE 50 MCG TABLET PO SCH (08:34)
[2018-12-08] MEDS: LISINOPRIL 20 MG TABLET PO SCH (08:34)
[2018-12-08] MEDS: SERTRALINE 50 MG TABLET. PO SCH (08:34)
[2018-12-08] MEDS: FOLIC/VIT B COMP W-C (RENAL) TABLET. PO SCH (08:34)
[2018-12-08] MEDS: CARVEDILOL 6.25 MG TABLET. PO SCH ×2 (08:36→16:59)
[2018-12-08] MEDS: amLODIPine BESYLATE 5 MG TABLET PO SCH (08:37)
[2018-12-08] MEDS: LACTOBACILLUS RHAMNOSUS GG 1 CAPSULE. PO SCH ×2 (08:37→20:26)
[2018-12-08] MEDS ORDERED: cloNIDine TTS-2 1 PATCH PATCH TD SCH (09:00)
--- NOTE | 2018-12-08 09:10 | NUR ---
See nursing communication and orders. Patient IV leaking and dc'd. Orders for anesth. for peripheral IV but they stated patient needs midline. Dr. White notified. To wait for her rounds and she will assess patient need for IV access.
[2018-12-08] MEDS: ALPRAZolam 0.5 MG TABLET PO PRN ×2 (09:31→14:25)
--- NOTE | 2018-12-08 10:19 | PDOC ---
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 - RECENT needs local wound care Dyslipidemia malnutrition polysubstance abuse hx Diffuse moderate to advanced atherosclerotic plaque in the lower EXT arteries with moderate stenosis in the mid SFA, Right lower extremity angiography with subsequent angioplasty of the right superficial femoral artery and anterior tibial artery SEPTEMBER 2018 History of Present Illness History of Present Illness she thinks it's [facility] Rt BKA dressing dry LEft amputated toes with JEFFREY drain still draining REad wound care note, she picks of her wound/dressing - she denies LOST an iv line and wants IV pain med - on rocephin per colleage - wound looks ok Anesthesia refuses stick PLAN: MAke sure ok with renal for midline Cont rocephin for now and wound care AGreeable to SN[facility] still working on left foot -cta of that leg was ordered fri Vitals Vitals Vital Signs Date Time Temp Pulse Resp B/P (MAP) Pulse Ox O2 Delivery O2 Flow Rate FiO2 12/08/18 09:39 95 Room Air 6.0 12/08/18 08:38 18 12/08/18 08:38 72 130/47 12/08/18 07:00 98.1 98.1 Physical Exam General: Alert, Oriented X3, Cooperative, mild distress Heart: Regular rate, Normal S1, Normal S2, No murmurs Lungs: Clear Abdomen: Normal bowel sounds, Soft, No hepatosplenomegaly Extremities: Other (ischemic limb) Skin: No rashes, Other Labs LABS Laboratory Tests Test 12/07/18 11:55 12/07/18 17:02 12/07/18 20:55 12/08/18 08:36 Glucose (Fingerstick) 77 mg/dL (70-99) 131 mg/dL (70-99) 155 mg/dL (70-99) 110 mg/dL (70-99) Review of Systems Review of Systems depressed, pain everywhere, limited ROS bec she hard to stay focus Assessment and Plan Assessmemt and Plan Problems Medical Problems: (1) Acute anemia Status: Acute (2) Anasarca Status: Acute (3) ESRD on dialysis Status: Chronic (4) Gangrene of toe of right foot Status: Acute Comment Review of Relevant I have reviewed the following items pamela (where applicable) has been applied. Labs Laboratory Tests Test 12/06/18 11:31 12/06/18 16:54 12/06/18 20:37 12/07/18 06:30 Glucose (Fingerstick) 200 mg/dL (70-99) 215 mg/dL (70-99) 127 mg/dL (70-99) Magnesium Level 2.1 mg/dL (1.8-2.4) Test 12/07/18 06:40 12/07/18 07:29 12/07/18 11:55 12/07/18 17:02 White Blood Count 10.5 x10^3/uL (4.0-11.0) Red Blood Count 3.40 x10^6/uL (3.50-5.40) Hemoglobin 10.4 g/dL (12.0-15.5) Hematocrit 30.4 % (36.0-47.0) Mean Corpuscular Volume 89 fL (79-100) Mean Corpuscular Hemoglobin 30 pg (25-35) Mean Corpuscular Hemoglobin Concent 34 g/dL (31-37) Red Cell Distribution Width 16.4 % (11.5-14.5) Platelet Count 291 x10^3/uL (140-400) Neutrophils (%) (Auto) 71 % (31-73) Lymphocytes (%) (Auto) 15 % (24-48) Monocytes (%) (Auto) 14 % (0-9) Eosinophils (%) (Auto) 0 % (0-3) Basophils (%) (Auto) 1 % (0-3) Neutrophils # (Auto) 7.5 x10^3/uL (1.8-7.7) Lymphocytes # (Auto) 1.5 x10^3/uL (1.0-4.8) Monocytes # (Auto) 1.4 x10^3/uL (0.0-1.1) Eosinophils # (Auto) 0.0 x10^3/uL (0.0-0.7) Basophils # (Auto) 0.1 x10^3/uL (0.0-0.2) Sodium Level 136 mmol/L (136-145) Potassium Level 5.0 mmol/L (3.5-5.1) Chloride Level 98 mmol/L (98-107) Carbon Dioxide Level 28 mmol/L (21-32) Anion Gap 10 (6-14) Blood Urea Nitrogen 29 mg/dL (7-20) Creatinine 5.8 mg/dL (0.6-1.0) Estimated GFR (Cockcroft-Gault) 9.1 Glucose Level 108 mg/dL (70-99) Calcium Level 8.7 mg/dL (8.5-10.1) Glucose (Fingerstick) 97 mg/dL (70-99) 77 mg/dL (70-99) 131 mg/dL (70-99) Test 12/07/18 20:55 12/08/18 08:36 Glucose (Fingerstick) 155 mg/dL (70-99) 110 mg/dL (70-99) Laboratory Tests Test 12/07/18 11:55 12/07/18 17:02 12/07/18 20:55 12/08/18 08:36 Glucose (Fingerstick) 77 mg/dL (70-99) 131 mg/dL (70-99) 155 mg/dL (70-99) 110 mg/dL (70-99) Microbiology 12/01/18 Blood Culture - Final, Complete NO GROWTH AFTER 5 DAYS Medications Current Medications Fentanyl Citrate (Fentanyl 2ml Vial) 50 mcg 1X STAT IV Last administered on 12/01/18at 15:29; Start 12/01/18 at 15:21; Stop 12/01/18 at 15:23; Status DC Fentanyl Citrate (Fentanyl 2ml Vial) 50 mcg 1X STAT IV Last administered on 12/01/18at 16:24; Start 12/01/18 at 16:09; Stop 12/01/18 at 16:11; Status DC Ondansetron HCl (Zofran) 4 mg PRN Q8HRS PRN IV NAUSEA/VOMITING; Start 12/01/18 at 16:30; Stop 12/02/18 at 16:29; Status DC Fentanyl Citrate (Fentanyl 2ml Vial) 50 mcg PRN Q1HR PRN IV PAIN Last administered on 12/02/18at 07:33; Start 12/01/18 at 16:30; Stop 12/02/18 at 08:48; Status DC Pharmacy Consult (C.diff Med Screen By Rx) 1 each 1X ONCE MC ; Start 12/01/18 at 18:15; Stop 12/01/18 at 18:16; Status Cancel Albuterol Sulfate (Ventolin Neb Soln) 2.5 mg PRN Q4HRS PRN NEB SHORTNESS OF BREATH; Start 12/01/18 at 19:30 Alprazolam (Xanax) 0.5 mg PRN TID PRN PO ANXIETY / AGITATION Last administered on 12/08/18 09:32; Start 12/01/18 at 19:30 Amlodipine Besylate (Norvasc) 10 mg DAILY PO Last administered on 12/08/18 08:38; Start 12/02/18 at 09:00 Atorvastatin Calcium (Lipitor) 40 mg HS PO Last administered on 12/07/18 20:09; Start 12/01/18 at 21:00 Carvedilol (Coreg) 6.25 mg BIDWMEALS PO Last administered on 12/08/18 08:38; Start 12/02/18 at 08:00 Clonidine HCl (Catapres Tts-2) 1 patch WEEKLY TD Last administered on 12/08/18 08:38; Start 12/08/18 at 09:00 Acetaminophen/ Hydrocodone Bitart (Lortab 5/325) 1 tab BID PO ; Start 12/01/18 at 21:00; Status Cancel Acetaminophen/ Hydrocodone Bitart (Lortab 5/325) 1 tab PRN Q6HRS PRN PO PAIN Last administered on 12/02/18 04:43; Start 12/01/18 at 19:30; Stop 12/02/18 at 08:48; Status DC Latanoprost (Xalatan) 1 drop HS OU Last administered on 12/07/18 20:09; Start 12/01/18 at 21:00 Levothyroxine Sodium (Synthroid) 50 mcg DAILY PO Last administered on 12/08/18 08:38; Start 12/02/18 at 09:00 Lisinopril (Prinivil) 20 mg DAILY PO Last administered on 12/08/18 08:38; Start 12/02/18 at 09:00 Prochlorperazine Maleate (Compazine) 5 mg PRN TID PRN PO NAUSEA Last administered on 12/03/18 19:56; Start 12/01/18 at 19:30 Sertraline HCl (Zoloft) 50 mg DAILY PO Last administered on 12/08/18 08:38; Start 12/02/18 at 09:00 Acetaminophen (Tylenol) 650 mg PRN Q6HRS PRN PO MILD PAIN / TEMP; Start 12/01/18 at 19:45 Amylase/Lipase/ Protease (Zenpep 5,000) 1 cap TIDWMEALS PO Last administered on 12/08/18 07:56; Start 12/02/18 at 08:00 Famotidine (Pepcid) 20 mg HS PO Last administered on 12/07/18 20:09; Start 12/01/18 at 21:00 Non-Formulary Medication ([Pantoprazole] ) 40 mg DAILYAC PO ; Start 12/02/18 at 07:30; Status UNV Ceftriaxone Sodium (Rocephin) 1 gm Q24H IVP Last administered on 12/07/18 20:08; Start 12/01/18 at 20:00 Vitamin B Complex/ Vitamin C (Pinky-Shreya) 1 tab DAILY PO Last administered on 12/08/18 08:38; Start 12/02/18 at 09:00 Fentanyl Citrate (Fentanyl 2ml Vial) 75 mcg PRN Q2HR PRN IV PAIN Last administered on 12/03/18 07:36; Start 12/02/18 at 09:00; Stop 12/03/18 at 08:59; Status DC Acetaminophen/ Hydrocodone Bitart (Lortab 5/325) 2 tab PRN Q6HRS PRN PO MODERATE - SEVERE PAIN Last administered on 12/02/18 18:55; Start 12/02/18 at 09:00; Stop 12/03/18 at 10:41; Status DC Magnesium Sulfate 50 ml @ 25 mls/hr PRN DAILY PRN IV for Mag < 1.7 on am labs; Start 12/02/18 at 09:30 Darbepoetin Jarrett (ARANESP for DIALYSIS PTS) 60 mcg WEEKLYHS SQ Last administered on 12/02/18 21:00; Start 12/02/18 at 21:00 Lactobacillus Rhamnosus (Culturelle) 1 cap BID PO Last administered on 12/08/18 08:38; Start 12/02/18 at 21:00 Fentanyl Citrate (Fentanyl 2ml Vial) 100 mcg PRN Q2HR PRN IV PAIN Last administered on 12/08/18at 07:04; Start 12/03/18 at 09:45 Fentanyl Citrate (Fentanyl 2ml Vial) 100 mcg STK-MED ONCE .ROUTE ; Start 12/03/18 at 09:45; Stop 12/03/18 at 09:45; Status DC Sodium Chloride 1,000 ml @ 1,000 mls/hr Q1H PRN IV hypotension; Start 12/03/18 at 10:12; Stop 12/03/18 at 16:11; Status DC Albumin Human 200 ml @ 200 mls/hr 1X PRN PRN IV Hypotension; Start 12/03/18 at 10:15; Stop 12/03/18 at 16:14; Status DC Sodium Chloride (Normal Saline Flush) 10 ml 1X PRN PRN IV AP catheter pack; Start 12/03/18 at 10:15; Stop 12/04/18 at 10:14; Status DC Sodium Chloride (Normal Saline Flush) 10 ml 1X PRN PRN IV 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; Start 12/03/18 at 10:15; Stop 12/04/18 at 10:14; Status DC Sodium Chloride 1,000 ml @ 400 mls/hr Q2H30M PRN IV PATENCY; Start 12/03/18 at 10:12; Stop 12/03/18 at 22:11; Status DC Info (PHARMACY MONITORING -- do not chart) 1 each PRN DAILY PRN MC SEE COMMENTS; Start 12/03/18 at 10:15; Status UNV Info (PHARMACY MONITORING -- do not chart) 1 each PRN DAILY PRN MC SEE COMMENTS; Start 12/03/18 at 10:15; Stop 12/07/18 at 19:19; Status DC Acetaminophen/ Hydrocodone Bitart (Lortab 10/325) 1 tab PRN Q4HRS PRN PO MODERATE TO SEVERE PAIN Last administered on 12/08/18at 08:38; Start 12/03/18 at 10:45 Ondansetron HCl (Zofran) 4 mg PRN Q6HRS PRN IV NAUSEA/VOMITING; Start 12/05/18 at 07:00; Stop 12/05/18 at 07:01; Status DC Fentanyl Citrate (Fentanyl 2ml Vial) 25 mcg PRN Q5MIN PRN IV MILD PAIN 1-3; Start 12/05/18 at 07:00; Stop 12/05/18 at 20:00; Status DC Fentanyl Citrate (Fentanyl 2ml Vial) 50 mcg PRN Q5MIN PRN IV MODERATE TO SEVERE PAIN Last administered on 12/05/18at 14:59; Start 12/05/18 at 07:00; Stop 12/05/18 at 20:00; Status DC Ringer's Solution 1,000 ml @ 30 mls/hr Q24H IV ; Start 12/05/18 at 07:00; Stop 12/05/18 at 11:44; Status DC Lidocaine HCl (Xylocaine-Mpf 1% 2ml Vial) 2 ml PRN 1X PRN ID PRIOR TO IV START; Start 12/05/18 at 07:00; Stop 12/05/18 at 20:00; Status DC Prochlorperazine Edisylate (Compazine) 5 mg PACU PRN PRN IV NAUSEA, MRX1 Last administered on 12/05/18at 14:59; Start 12/05/18 at 07:00; Stop 12/05/18 at 20:00; Status DC Bacitracin 51886 unit/Sodium Chloride 500 ml @ 500 mls/hr 1X ONCE IRR Last administered on 12/05/18at 12:29; Start 12/05/18 at 06:00; Stop 12/05/18 at 06:59; Status DC Sodium Chloride 1,000 ml @ 1,000 mls/hr Q1H PRN IV hypotension; Start 12/05/18 at 07:31; Stop 12/05/18 at 13:30; Status DC Diphenhydramine HCl (Benadryl) 25 mg 1X PRN PRN IV ITCHING; Start 12/05/18 at 07:45; Stop 12/06/18 at 07:44; Status DC Diphenhydramine HCl (Benadryl) 25 mg 1X PRN PRN IV ITCHING; Start 12/05/18 at 07:45; Stop 12/06/18 at 07:44; Status DC Sodium Chloride 1,000 ml @ 400 mls/hr Q2H30M PRN IV PATENCY; Start 12/05/18 at 07:31; Stop 12/05/18 at 19:30; Status DC Info (PHARMACY MONITORING -- do not chart) 1 each PRN DAILY PRN MC SEE COMMENTS; Start 12/05/18 at 07:45; Stop 12/05/18 at 07:35; Status DC Info (PHARMACY MONITORING -- do not chart) 1 each PRN DAILY PRN MC SEE COMMENTS; Start 12/05/18 at 07:45; Status UNV Ondansetron HCl (Zofran) 4 mg 1X STAT IV Last administered on 12/05/18at 09:45; Start 12/05/18 at 09:34; Stop 12/05/18 at 09:35; Status DC Sodium Chloride 1,000 ml @ 30 mls/hr Q24H IV Last administered on 12/07/18at 12:24; Start 12/05/18 at 11:45 Propofol 20 ml @ As Directed STK-MED ONCE IV ; Start 12/05/18 at 12:06; Stop 12/05/18 at 12:06; Status DC Lidocaine HCl (Lidocaine Pf 2% Vial) 5 ml STK-MED ONCE .ROUTE ; Start 12/05/18 at 12:06; Stop 12/05/18 at 12:06; Status DC Fentanyl Citrate (Fentanyl 2ml Vial) 100 mcg STK-MED ONCE .ROUTE ; Start 12/05/18 at 12:06; Stop 12/05/18 at 12:06; Status DC Cefazolin Sodium/ Dextrose 50 ml @ 100 mls/hr 1X PREOP PRN IV PRIOR TO PROCEDURE Last administered on 12/05/18at 13:37; Start 12/05/18 at 13:00; Stop 12/06/18 at 12:59; Status DC Dexamethasone Sodium Phosphate (Decadron) 4 mg STK-MED ONCE .ROUTE ; Start 12/05/18 at 13:16; Stop 12/05/18 at 13:16; Status DC Ondansetron HCl (Zofran) 4 mg STK-MED ONCE .ROUTE ; Start 12/05/18 at 13:16; Stop 12/05/18 at 13:16; Status DC Sevoflurane (Ultane) 60 ml STK-MED ONCE IH ; Start 12/05/18 at 13:16; Stop 12/05/18 at 13:16; Status DC Hydralazine HCl (Apresoline Inj) 20 mg STK-MED ONCE .ROUTE ; Start 12/05/18 at 13:28; Stop 12/05/18 at 13:28; Status DC Ephedrine Sulfate (ePHEDrine PF IN SALINE SYRINGE) 50 mg STK-MED ONCE IV ; Start 12/05/18 at 14:09; Stop 12/05/18 at 14:09; Status DC Hydromorphone HCl (Dilaudid) 0.5 mg PRN Q10MIN PRN IV pain Last administered on 12/05/18at 15:56; Start 12/05/18 at 15:00; Stop 12/05/18 at 20:00; Status DC Ondansetron HCl (Zofran) 4 mg PRN Q6HRS PRN IV NAUSEA/VOMITING; Start 12/07/18 at 07:00; Stop 12/08/18 at 06:59; Status DC Fentanyl Citrate (Fentanyl 2ml Vial) 25 mcg PRN Q5MIN PRN IV MILD PAIN 1-3; Start 12/07/18 at 07:00; Stop 12/08/18 at 06:59; Status DC Fentanyl Citrate (Fentanyl 2ml Vial) 50 mcg PRN Q5MIN PRN IV MODERATE TO SEVERE PAIN; Start 12/07/18 at 07:00; Stop 12/08/18 at 06:59; Status DC Ringer's Solution 1,000 ml @ 30 mls/hr Q24H IV ; Start 12/07/18 at 07:00; Stop 12/07/18 at 18:59; Status DC Lidocaine HCl (Xylocaine-Mpf 1% 2ml Vial) 2 ml PRN 1X PRN ID PRIOR TO IV START; Start 12/07/18 at 07:00; Stop 12/08/18 at 06:59; Status DC Prochlorperazine Edisylate (Compazine) 5 mg PACU PRN PRN IV NAUSEA, MRX1; Start 12/07/18 at 07:00; Stop 12/08/18 at 06:59; Status DC Docusate Sodium (Colace) 100 mg PRN DAILY PRN PO CONSTIPATION; Start 12/06/18 at 11:15 Magnesium Hydroxide (Milk Of Magnesia) 2,400 mg PRN DAILY PRN PO CONSTIPATION; Start 12/06/18 at 11:15 Polyethylene Glycol (miraLAX PACKET) 17 gm PRN DAILY PRN PO CONSTIPATION; Start 12/06/18 at 11:15 Insulin Human Lispro (HumaLOG) 0-5 UNITS TIDWMEALS SQ Last administered on 12/06/18at 17:51; Start 12/06/18 at 18:00 Dextrose (Dextrose 50%-Water Syringe) 12.5 gm PRN Q15MIN PRN IV SEE COMMENTS; Start 12/06/18 at 17:45 Dextrose 250 ml PRN Q15MIN PRN IV SEE COMMENTS; Start 12/06/18 at 17:45 Sodium Chloride 1,000 ml @ 1,000 mls/hr Q1H PRN IV hypotension; Start 12/07/18 at 08:20; Stop 12/07/18 at 14:19; Status DC Acetaminophen (Tylenol) 1,000 mg 1X PRN PRN PO MILD PAIN / TEMP; Start 12/07/18 at 08:30; Stop 12/08/18 at 08:29; Status DC Diphenhydramine HCl (Benadryl) 25 mg 1X PRN PRN IV ITCHING; Start 12/07/18 at 08:30; Stop 12/08/18 at 08:29; Status DC Diphenhydramine HCl (Benadryl) 25 mg 1X PRN PRN IV ITCHING; Start 12/07/18 at 08:30; Stop 12/08/18 at 08:29; Status DC Info (PHARMACY MONITORING -- do not chart) 1 each PRN DAILY PRN MC SEE COMMENTS; Start 12/07/18 at 08:30 Lidocaine/Sodium Bicarbonate (Buffered Lidocaine 1%) 3 ml STK-MED ONCE .ROUTE ; Start 12/07/18 at 12:26; Stop 12/07/18 at 12:26; Status DC Iodixanol (Visipaque 320) 50 ml STK-MED ONCE .ROUTE ; Start 12/07/18 at 12:26; Stop 12/07/18 at 12:26; Status DC Heparin Sodium/ Sodium Chloride 1,500 ml @ As Directed STK-MED ONCE .ROUTE ; Start 12/07/18 at 12:26; Stop 12/07/18 at 12:26; Status DC Iodixanol (Visipaque 320) 100 ml STK-MED ONCE .ROUTE ; Start 12/07/18 at 12:32; Stop 12/07/18 at 12:33; Status DC Propofol 20 ml @ As Directed STK-MED ONCE IV ; Start 12/07/18 at 13:30; Stop 12/07/18 at 13:30; Status DC Ondansetron HCl (Zofran) 4 mg STK-MED ONCE .ROUTE ; Start 12/07/18 at 13:30; Stop 12/07/18 at 13:30; Status DC Lidocaine HCl (Lidocaine Pf 2% Vial) 5 ml STK-MED ONCE .ROUTE ; Start 12/07/18 at 13:30; Stop 12/07/18 at 13:31; Status DC Sevoflurane (Ultane) 60 ml STK-MED ONCE IH ; Start 12/07/18 at 13:30; Stop 12/07/18 at 13:31; Status DC Heparin Sodium (Porcine) (Heparin Sodium) 10,000 unit STK-MED ONCE .ROUTE ; Start 12/07/18 at 13:49; Stop 12/07/18 at 13:49; Status DC Dexamethasone Sodium Phosphate (Decadron) 4 mg STK-MED ONCE .ROUTE ; Start 12/07/18 at 13:51; Stop 12/07/18 at 13:52; Status DC Ephedrine Sulfate (Akovaz) 50 mg STK-MED ONCE .ROUTE ; Start 12/07/18 at 13:57; Stop 12/07/18 at 13:57; Status DC Heparin Sodium/ Sodium Chloride (HEPARIN for ARTERIAL LINE FLUSH) 2,000 unit 1X ONCE IART Last administered on 12/07/18at 14:46; Start 12/07/18 at 14:15; Stop 12/07/18 at 14:16; Status DC Heparin Sodium/ Sodium Chloride (HEPARIN for ARTERIAL LINE FLUSH) 1,000 unit 1X ONCE IART Last administered on 12/07/18at 14:46; Start 12/07/18 at 14:15; Stop 12/07/18 at 14:16; Status DC Lidocaine/Sodium Bicarbonate (Buffered Lidocaine 1%) 3 ml 1X ONCE IJ Last administered on 12/07/18at 14:46; Start 12/07/18 at 14:15; Stop 12/07/18 at 14:16; Status DC Iodixanol (Visipaque 320) 100 ml 1X ONCE IART Last administered on 12/07/18at 14:46; Start 12/07/18 at 14:15; Stop 12/07/18 at 14:16; Status DC Info (CONTRAST GIVEN -- Rx MONITORING) 1 each PRN DAILY PRN MC SEE COMMENTS; Start 12/07/18 at 14:15; Stop 12/09/18 at 14:14 Heparin Sodium (Porcine) (Heparin Sodium) 4,000 unit 1X ONCE IV Last administered on 12/07/18at 14:46; Start 12/07/18 at 14:30; Stop 12/07/18 at 14:31; Status DC Sevoflurane (Ultane) 60 ml STK-MED ONCE IH ; Start 12/07/18 at 14:44; Stop 12/07/18 at 14:44; Status DC Active Scripts Active Tylenol (Acetaminophen) 325 Mg Capsule 650 Mg PO Q6-8HRS PRN [place] 5-325 Tablet (Acetaminophen/Hydrocodone Bitart) 1 Each Tablet 1 Tab PO BID 5 Days [place] 5-325 Tablet (Acetaminophen/Hydrocodone Bitart) 1 Each Tablet 1 Tab PO PRN Q6HRS PRN Alprazolam 0.5 Mg Tablet 0.5 Mg PO PRN TID PRN MDD 1 Zantac (Ranitidine Hcl) 300 Mg Tablet 1 Tab PO QHS Compazine (Prochlorperazine Maleate) 5 Mg Tablet 5 Mg PO PRN TID PRN 10 Days [Pantoprazole] 40 MG Tablet. 40 Mg PO DAILYAC 30 Days Reported Zoloft (Sertraline Hcl) 50 Mg Tablet 50 Mg PO DAILY Lisinopril 20 Mg Tablet 20 Mg PO DAILY Coreg (Carvedilol) 6.25 Mg Tablet 6.25 Mg PO BIDWMELORENA Frey Dr 6,000 Units Capsule (Lipase/Protease/Amylase) 1 Each Capsule. 1 Tab PO TID Proair Hfa (Albuterol Sulfate) 8.5 Gm Hfa.aer.ad 2 Puff INH BID PRN Levothyroxine Sodium 50 Mcg Tablet 1 Tab PO DAILY Clonidine Tts-2 (Clonidine) 1 Each Patch.tdwk 1 Patch TD WEEKLY Amlodipine Besylate 5 Mg Tablet 10 Mg PO DAILY Atorvastatin Calcium 40 Mg Tablet 40 Mg PO HS Latanoprost 2.5 Ml Drops 1 Drop EACHEYE HS Vitals/I & O Vital Sign - Last 24 Hours 12/07/18 12/07/18 12/07/18 12/07/18 15:06 15:10 15:21 15:36 Temp 97.8 97.8 97.8 97.8 97.8 97.8 Pulse 70 76 84 Resp 18 18 25 B/P (MAP) 157/61 190/67 187/48 Pulse Ox 100 100 97 O2 Delivery Room Air Room Air Simple Mask Room Air O2 Flow Rate 6 6 6 12/07/18 12/07/18 12/07/18 12/07/18 15:55 16:10 16:40 16:53 Pulse 86 B/P (MAP) 164/76 (105) 165/78 (107) 189/64 (105) 189/64 12/07/18 12/07/18 12/07/18 12/07/18 16:53 16:53 17:10 18:00 Pulse 86 86 B/P (MAP) 189/64 189/64 158/73 (101) 107/64 (78) 12/07/18 12/07/18 12/07/18 12/07/18 19:00 19:56 20:00 23:00 Temp 98.9 98.9 98.9 98.9 Pulse 73 72 Resp 17 20 17 B/P (MAP) 136/61 (86) 146/59 (88) Pulse Ox 98 97 96 O2 Delivery Room Air Room Air Room Air Room Air 12/08/18 12/08/18 12/08/18 12/08/18 00:53 03:00 04:55 04:57 Temp 98.9 98.9 Pulse 66 Resp 20 17 20 20 B/P (MAP) 134/65 (88) Pulse Ox 97 95 95 95 O2 Delivery Room Air Room Air Room Air Room Air 12/08/18 12/08/18 12/08/18 12/08/18 05:58 05:58 07:00 07:04 Temp 98.1 98.1 Pulse 72 Resp 18 18 18 20 B/P (MAP) 138/47 (77) Pulse Ox 95 95 98 95 O2 Delivery Room Air Room Air Room Air Room Air 12/08/18 12/08/18 12/08/18 12/08/18 07:53 07:53 08:00 08:38 Pulse 72 Resp 18 16 B/P (MAP) 130/47 Pulse Ox 95 95 O2 Delivery Room Air Room Air Room Air 12/08/18 12/08/18 12/08/18 12/08/18 08:38 08:38 08:38 09:39 Pulse 72 72 Resp 18 B/P (MAP) 130/47 130/47 Pulse Ox 95 O2 Delivery Room Air Room Air O2 Flow Rate 6.0 Intake and Output 12/07/18 12/07/18 12/08/18 14:59 22:59 06:59 Intake Total 750 ml 120 ml 620 ml Output Total 20 ml Balance 750 ml 100 ml 620 ml PRABHAKAR MOSQUERA MD Dec 08, 2018 10:19
--- NOTE | 2018-12-08 10:54 | NUR ---
Dr. Mahoney notified for OK for Midline IV access which he approved, see orders, notes and nursing communication. [place] [facility] notified for Midline IV access.
[2018-12-08 11:00] VITALS: BP 105/55
--- NOTE | 2018-12-08 11:20 | PDOC ---
Provider Note Provider Note POD#2 s/p right BKA s/p Left AT angioplasty c/o pain BKA incision looks good Wound VAC in place left foot IMP doing well PLAN continue same Pt has severe distal vascular occlusive disease left fore foot INGRID MCKOY MD Dec 08, 2018 11:20
--- NOTE | 2018-12-08 13:00 | PDOC ---
Renal-Progress Notes Subjective Notes Notes SLEEPY, STILL HAVING PAIN History of Present Illness Hx of present illness STABLE Vitals Vitals Vital Signs Date Time Temp Pulse Resp B/P (MAP) Pulse Ox O2 Delivery O2 Flow Rate FiO2 12/08/18 12:55 18 Room Air 12/08/18 11:00 99.0 78 105/55 (72) 96 99.0 12/08/18 09:39 6.0 Weight Weight [ ] I.O. Intake and Output Intake and Output 12/08/18 06:59 Intake Total 1490 ml Output Total 20 ml Balance 1470 ml Intake Oral 740 ml IV Total 750 ml Estimated Blood Loss 20 ml # Bowel Movements 3 Labs Labs Laboratory Tests Test 12/07/18 17:02 12/07/18 20:55 12/08/18 08:36 12/08/18 11:43 Glucose (Fingerstick) 131 mg/dL (70-99) 155 mg/dL (70-99) 110 mg/dL (70-99) 192 mg/dL (70-99) Micro Micro Microbiology 12/01/18 Blood Culture - Final, Complete NO GROWTH AFTER 5 DAYS Review of Systems Constitutional: yes: alert, oriented Ears/Nose/Throat: Yes: no symptom reported Pulmonary: Yes no symptom reported Cardiovascular: Yes no symptom reported Gastrointestional: Yes: no symptom reported Genitourinary: Yes: no symptom reported Musculoskeletal: Yes: foot pain, joint pain Psychiatric/Neurological: Yes: no symptom reported Physical Exam General Appearance: alert, oriented Skin: warm Respiratory: bilateral CTA Abdomen: bowel sounds present Genitourinary: bladder flat Extremities: pulses present Neurology: alert Assessment Assessment IMP ESRD ANEMIA HTN NON COMPLIANCE RIGHT FOOT GANGRENE SEVERE PAD S/P RIGHT BKA PLAN HD MONDAY OK WITH MID LINE PAIN CONTROL ANTIBIOTICS ENC COMPLIANCE WOUND CARE SUPPORTIVE CARE BENY PAINTER MD Dec 08, 2018 12:59
--- NOTE | 2018-12-08 13:46 | NUR ---
Kenny RN [facility] here to do patient's midline.
--- NOTE | 2018-12-08 14:31 | NUR ---
Kenny MCKENZIE [facility] inserted JOHN 4 Fr. 15cm Midline IV, patient with good blood return and OK to use. Patient tolerated procedure well.
[2018-12-08 15:00] VITALS: BP 118/37
[2018-12-08 19:00] VITALS: BP 95/43
[2018-12-08] MEDS ORDERED: IPRATRPIUM/ALBUTEROL 0.5/2.5MG 3 ML NEBU. ONE (19:44)
[2018-12-08] MEDS: LATANOPROST 0.005% OPHTH SOLUTION 2.5ML BOTTLE. OU SCH (20:26)
[2018-12-08] MEDS: ATORVASTATIN CALCIUM 40 MG TABLET. PO SCH (20:26)
[2018-12-08] MEDS: cefTRIAXone IV Push 1 GM VIAL. IVP SCH (20:28)
[2018-12-08] MEDS: FAMOTIDINE 20 MG TABLET. PO SCH (21:00)
[2018-12-09] MEDS: ALPRAZolam 0.5 MG TABLET PO PRN ×2 (01:30→20:08)
[2018-12-09] MEDS: HYDROcodone/APAP 10/325 1 TAB TABLET PO PRN ×4 (01:31→20:09)
[2018-12-09] MEDS: fentaNYL PF VIAL 100 MCG/2 ML VIAL IV PRN ×5 (06:02→23:16)
[2018-12-09 07:00] VITALS: BP_SYST 111; BP_SYST 119; BP_DIAS 56; BP_DIAS 78
[2018-12-09] MEDS: INSULIN LISPRO 300 UNITS/3 ML VIAL. SQ SCH ×3 (08:00→17:17)
[2018-12-09] MEDS: LACTOBACILLUS RHAMNOSUS GG 1 CAPSULE. PO SCH ×2 (09:12→20:08)
[2018-12-09] MEDS: FOLIC/VIT B COMP W-C (RENAL) TABLET. PO SCH (09:12)
[2018-12-09] MEDS: LEVOTHYROXINE 50 MCG TABLET PO SCH (09:12)
[2018-12-09] MEDS: amLODIPine BESYLATE 5 MG TABLET PO SCH (09:13)
[2018-12-09] MEDS: LISINOPRIL 20 MG TABLET PO SCH (09:14)
[2018-12-09] MEDS: SERTRALINE 50 MG TABLET. PO SCH (09:14)
[2018-12-09] MEDS: CARVEDILOL 6.25 MG TABLET. PO SCH ×2 (09:14→17:13)
--- NOTE | 2018-12-09 09:36 | PDOC ---
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 - RECENT needs local wound care Dyslipidemia malnutrition polysubstance abuse hx Diffuse moderate to advanced atherosclerotic plaque in the lower EXT arteries with moderate stenosis in the mid SFA, Right lower extremity angiography with subsequent angioplasty of the right superficial femoral artery and anterior tibial artery SEPTEMBER 2018 History of Present Illness History of Present Illness NO overnight calls -s he seems to be more cooperative this admission Rt BKA dressing dry LEft amputated toes with JEFFREY drain - she not manipulating it anymore HAs left arm midline, getting IV pain meds rocephin per colleague PLAN: [facility] SNU tmr if okayed by vasc sx AGreeable to SNU on dc to my delight [facility] s[facility] still working on left foot -cta of that leg was ordered mon - wait for their rounds before dc Vitals Vitals Vital Signs Date Time Temp Pulse Resp B/P (MAP) Pulse Ox O2 Delivery O2 Flow Rate FiO2 12/09/18 09:16 91 119/78 12/09/18 07:29 16 95 Room Air 12/09/18 07:00 98.8 98.8 12/08/18 09:39 6.0 Physical Exam General: Alert, Oriented X3, Cooperative, mild distress Heart: Regular rate, Normal S1, Normal S2, No murmurs Lungs: Clear Abdomen: Normal bowel sounds, Soft, No hepatosplenomegaly Extremities: Other (ischemic limb) Skin: No rashes, Other Labs LABS Laboratory Tests Test 12/08/18 11:43 12/08/18 16:51 12/08/18 20:29 12/09/18 07:58 Glucose (Fingerstick) 192 mg/dL (70-99) 243 mg/dL (70-99) 217 mg/dL (70-99) 141 mg/dL (70-99) Review of Systems Review of Systems chronic pain, all else neg 14 pt reviewed with her Assessment and Plan Assessmemt and Plan Problems Medical Problems: (1) Acute anemia Status: Acute (2) Anasarca Status: Acute (3) ESRD on dialysis Status: Chronic (4) Gangrene of toe of right foot Status: Acute Comment Review of Relevant I have reviewed the following items pamela (where applicable) has been applied. Labs Laboratory Tests Test 12/07/18 11:55 12/07/18 17:02 12/07/18 20:55 12/08/18 08:36 Glucose (Fingerstick) 77 mg/dL (70-99) 131 mg/dL (70-99) 155 mg/dL (70-99) 110 mg/dL (70-99) Test 12/08/18 11:43 12/08/18 16:51 12/08/18 20:29 12/09/18 07:58 Glucose (Fingerstick) 192 mg/dL (70-99) 243 mg/dL (70-99) 217 mg/dL (70-99) 141 mg/dL (70-99) Laboratory Tests Test 12/08/18 11:43 12/08/18 16:51 12/08/18 20:29 12/09/18 07:58 Glucose (Fingerstick) 192 mg/dL (70-99) 243 mg/dL (70-99) 217 mg/dL (70-99) 141 mg/dL (70-99) Microbiology 12/01/18 Blood Culture - Final, Complete NO GROWTH AFTER 5 DAYS Medications Current Medications Fentanyl Citrate (Fentanyl 2ml Vial) 50 mcg 1X STAT IV Last administered on 12/01/18at 15:29; Start 12/01/18 at 15:21; Stop 12/01/18 at 15:23; Status DC Fentanyl Citrate (Fentanyl 2ml Vial) 50 mcg 1X STAT IV Last administered on 12/01/18at 16:24; Start 12/01/18 at 16:09; Stop 12/01/18 at 16:11; Status DC Ondansetron HCl (Zofran) 4 mg PRN Q8HRS PRN IV NAUSEA/VOMITING; Start 12/01/18 at 16:30; Stop 12/02/18 at 16:29; Status DC Fentanyl Citrate (Fentanyl 2ml Vial) 50 mcg PRN Q1HR PRN IV PAIN Last administered on 12/02/18at 07:33; Start 12/01/18 at 16:30; Stop 12/02/18 at 08:48; Status DC Pharmacy Consult (C.diff Med Screen By Rx) 1 each 1X ONCE MC ; Start 12/01/18 at 18:15; Stop 12/01/18 at 18:16; Status Cancel Albuterol Sulfate (Ventolin Neb Soln) 2.5 mg PRN Q4HRS PRN NEB SHORTNESS OF BREATH; Start 12/01/18 at 19:30 Alprazolam (Xanax) 0.5 mg PRN TID PRN PO ANXIETY / AGITATION Last administered on 12/09/18 01:31; Start 12/01/18 at 19:30 Amlodipine Besylate (Norvasc) 10 mg DAILY PO Last administered on 12/09/18 09:16; Start 12/02/18 at 09:00 Atorvastatin Calcium (Lipitor) 40 mg HS PO Last administered on 12/08/18 20:29; Start 12/01/18 at 21:00 Carvedilol (Coreg) 6.25 mg BIDWMEALS PO Last administered on 12/09/18 09:16; Start 12/02/18 at 08:00 Clonidine HCl (Catapres Tts-2) 1 patch WEEKLY TD Last administered on 12/08/18 08:38; Start 12/08/18 at 09:00 Acetaminophen/ Hydrocodone Bitart (Lortab 5/325) 1 tab BID PO ; Start 12/01/18 at 21:00; Status Cancel Acetaminophen/ Hydrocodone Bitart (Lortab 5/325) 1 tab PRN Q6HRS PRN PO PAIN Last administered on 12/02/18 04:43; Start 12/01/18 at 19:30; Stop 12/02/18 at 08:48; Status DC Latanoprost (Xalatan) 1 drop HS OU Last administered on 12/08/18 20:29; Start 12/01/18 at 21:00 Levothyroxine Sodium (Synthroid) 50 mcg DAILY PO Last administered on 12/09/18 09:16; Start 12/02/18 at 09:00 Lisinopril (Prinivil) 20 mg DAILY PO Last administered on 12/09/18 09:16; Start 12/02/18 at 09:00 Prochlorperazine Maleate (Compazine) 5 mg PRN TID PRN PO NAUSEA Last administered on 12/03/18 19:56; Start 12/01/18 at 19:30 Sertraline HCl (Zoloft) 50 mg DAILY PO Last administered on 12/09/18 09:16; Start 12/02/18 at 09:00 Acetaminophen (Tylenol) 650 mg PRN Q6HRS PRN PO MILD PAIN / TEMP; Start 12/01/18 at 19:45 Amylase/Lipase/ Protease (Zenpep 5,000) 1 cap TIDWMEALS PO Last administered on 12/09/18 09:16; Start 12/02/18 at 08:00 Famotidine (Pepcid) 20 mg HS PO Last administered on 12/07/18 20:09; Start 12/01/18 at 21:00; Stop 12/08/18 at 17:21; Status DC Non-Formulary Medication ([Pantoprazole] ) 40 mg DAILYAC PO ; Start 12/02/18 at 07:30; Status UNV Ceftriaxone Sodium (Rocephin) 1 gm Q24H IVP Last administered on 12/08/18 20:29; Start 12/01/18 at 20:00 Vitamin B Complex/ Vitamin C (Pinky-Shreya) 1 tab DAILY PO Last administered on 12/09/18 09:16; Start 12/02/18 at 09:00 Fentanyl Citrate (Fentanyl 2ml Vial) 75 mcg PRN Q2HR PRN IV PAIN Last administered on 12/03/18 07:36; Start 12/02/18 at 09:00; Stop 12/03/18 at 08:59; Status DC Acetaminophen/ Hydrocodone Bitart (Lortab 5/325) 2 tab PRN Q6HRS PRN PO MODERATE - SEVERE PAIN Last administered on 12/02/18 18:55; Start 12/02/18 at 09 :00; Stop 12/03/18 at 10:41; Status DC Magnesium Sulfate 50 ml @ 25 mls/hr PRN DAILY PRN IV for Mag < 1.7 on am labs; Start 12/02/18 at 09:30 Darbepoetin Jarrett (ARANESP for DIALYSIS PTS) 60 mcg WEEKLYHS SQ Last administered on 12/02/18 21:00; Start 12/02/18 at 21:00 Lactobacillus Rhamnosus (Culturelle) 1 cap BID PO Last administered on 12/09/18 09:16; Start 12/02/18 at 21:00 Fentanyl Citrate (Fentanyl 2ml Vial) 100 mcg PRN Q2HR PRN IV PAIN Last administered on 12/09/18at 09:16; Start 12/03/18 at 09:45 Fentanyl Citrate (Fentanyl 2ml Vial) 100 mcg STK-MED ONCE .ROUTE ; Start 12/03/18 at 09:45; Stop 12/03/18 at 09:45; Status DC Sodium Chloride 1,000 ml @ 1,000 mls/hr Q1H PRN IV hypotension; Start 12/03/18 at 10:12; Stop 12/03/18 at 16:11; Status DC Albumin Human 200 ml @ 200 mls/hr 1X PRN PRN IV Hypotension; Start 12/03/18 at 10:15; Stop 12/03/18 at 16:14; Status DC Sodium Chloride (Normal Saline Flush) 10 ml 1X PRN PRN IV AP catheter pack; Start 12/03/18 at 10:15; Stop 12/04/18 at 10:14; Status DC Sodium Chloride (Normal Saline Flush) 10 ml 1X PRN PRN IV 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; Start 12/03/18 at 10:15; Stop 12/04/18 at 10:14; Status DC Sodium Chloride 1,000 ml @ 400 mls/hr Q2H30M PRN IV PATENCY; Start 12/03/18 at 10:12; Stop 12/03/18 at 22:11; Status DC Info (PHARMACY MONITORING -- do not chart) 1 each PRN DAILY PRN MC SEE COMMENTS; Start 12/03/18 at 10:15; Status UNV Info (PHARMACY MONITORING -- do not chart) 1 each PRN DAILY PRN MC SEE COMMENTS; Start 12/03/18 at 10:15; Stop 12/07/18 at 19:19; Status DC Acetaminophen/ Hydrocodone Bitart (Lortab 10/325) 1 tab PRN Q4HRS PRN PO MODERATE TO SEVERE PAIN Last administered on 12/09/18at 09:16; Start 12/03/18 at 10:45 Ondansetron HCl (Zofran) 4 mg PRN Q6HRS PRN IV NAUSEA/VOMITING; Start 12/05/18 at 07:00; Stop 12/05/18 at 07:01; Status DC Fentanyl Citrate (Fentanyl 2ml Vial) 25 mcg PRN Q5MIN PRN IV MILD PAIN 1-3; Start 12/05/18 at 07:00; Stop 12/05/18 at 20:00; Status DC Fentanyl Citrate (Fentanyl 2ml Vial) 50 mcg PRN Q5MIN PRN IV MODERATE TO SEVERE PAIN Last administered on 12/05/18at 14:59; Start 12/05/18 at 07:00; Stop 12/05/18 at 20:00; Status DC Ringer's Solution 1,000 ml @ 30 mls/hr Q24H IV ; Start 12/05/18 at 07:00; Stop 12/05/18 at 11:44; Status DC Lidocaine HCl (Xylocaine-Mpf 1% 2ml Vial) 2 ml PRN 1X PRN ID PRIOR TO IV START; Start 12/05/18 at 07:00; Stop 12/05/18 at 20:00; Status DC Prochlorperazine Edisylate (Compazine) 5 mg PACU PRN PRN IV NAUSEA, MRX1 Last administered on 12/05/18at 14:59; Start 12/05/18 at 07:00; Stop 12/05/18 at 20:00; Status DC Bacitracin 37976 unit/Sodium Chloride 500 ml @ 500 mls/hr 1X ONCE IRR Last administered on 12/05/18at 12:29; Start 12/05/18 at 06:00; Stop 12/05/18 at 06:59; Status DC Sodium Chloride 1,000 ml @ 1,000 mls/hr Q1H PRN IV hypotension; Start 12/05/18 at 07:31; Stop 12/05/18 at 13:30; Status DC Diphenhydramine HCl (Benadryl) 25 mg 1X PRN PRN IV ITCHING; Start 12/05/18 at 07:45; Stop 12/06/18 at 07:44; Status DC Diphenhydramine HCl (Benadryl) 25 mg 1X PRN PRN IV ITCHING; Start 12/05/18 at 07:45; Stop 12/06/18 at 07:44; Status DC Sodium Chloride 1,000 ml @ 400 mls/hr Q2H30M PRN IV PATENCY; Start 12/05/18 at 07:31; Stop 12/05/18 at 19:30; Status DC Info (PHARMACY MONITORING -- do not chart) 1 each PRN DAILY PRN MC SEE COMMENTS; Start 12/05/18 at 07:45; Stop 12/05/18 at 07:35; Status DC Info (PHARMACY MONITORING -- do not chart) 1 each PRN DAILY PRN MC SEE COMMENTS; Start 12/05/18 at 07:45; Status UNV Ondansetron HCl (Zofran) 4 mg 1X STAT IV Last administered on 12/05/18at 09:45; Start 12/05/18 at 09:34; Stop 12/05/18 at 09:35; Status DC Sodium Chloride 1,000 ml @ 30 mls/hr Q24H IV Last administered on 12/07/18at 12:24; Start 12/05/18 at 11:45; Stop 12/08/18 at 10:36; Status DC Propofol 20 ml @ As Directed STK-MED ONCE IV ; Start 12/05/18 at 12:06; Stop at 12:06; Status DC Lidocaine HCl (Lidocaine Pf 2% Vial) 5 ml STK-MED ONCE .ROUTE ; Start 12/05/18 at 12:06; Stop 12/05/18 at 12:06; Status DC Fentanyl Citrate (Fentanyl 2ml Vial) 100 mcg STK-MED ONCE .ROUTE ; Start 12/05/18 at 12:06; Stop 12/05/18 at 12:06; Status DC Cefazolin Sodium/ Dextrose 50 ml @ 100 mls/hr 1X PREOP PRN IV PRIOR TO PROCEDURE Last administered on 12/05/18at 13:37; Start 12/05/18 at 13:00; Stop 12/06/18 at 12:59; Status DC Dexamethasone Sodium Phosphate (Decadron) 4 mg STK-MED ONCE .ROUTE ; Start 12/05/18 at 13:16; Stop 12/05/18 at 13:16; Status DC Ondansetron HCl (Zofran) 4 mg STK-MED ONCE .ROUTE ; Start 12/05/18 at 13:16; Stop 12/05/18 at 13:16; Status DC Sevoflurane (Ultane) 60 ml STK-MED ONCE IH ; Start 12/05/18 at 13:16; Stop 12/05/18 at 13:16; Status DC Hydralazine HCl (Apresoline Inj) 20 mg STK-MED ONCE .ROUTE ; Start 12/05/18 at 13:28; Stop 12/05/18 at 13:28; Status DC Ephedrine Sulfate (ePHEDrine PF IN SALINE SYRINGE) 50 mg STK-MED ONCE IV ; Start 12/05/18 at 14:09; Stop 12/05/18 at 14:09; Status DC Hydromorphone HCl (Dilaudid) 0.5 mg PRN Q10MIN PRN IV pain Last administered on 12/05/18at 15:56; Start 12/05/18 at 15:00; Stop 12/05/18 at 20:00; Status DC Ondansetron HCl (Zofran) 4 mg PRN Q6HRS PRN IV NAUSEA/VOMITING; Start 12/07/18 at 07:00; Stop 12/08/18 at 06:59; Status DC Fentanyl Citrate (Fentanyl 2ml Vial) 25 mcg PRN Q5MIN PRN IV MILD PAIN 1-3; Start 12/07/18 at 07:00; Stop 12/08/18 at 06:59; Status DC Fentanyl Citrate (Fentanyl 2ml Vial) 50 mcg PRN Q5MIN PRN IV MODERATE TO SEVERE PAIN; Start 12/07/18 at 07:00; Stop 12/08/18 at 06:59; Status DC Ringer's Solution 1,000 ml @ 30 mls/hr Q24H IV ; Start 12/07/18 at 07:00; Stop 12/07/18 at 18:59; Status DC Lidocaine HCl (Xylocaine-Mpf 1% 2ml Vial) 2 ml PRN 1X PRN ID PRIOR TO IV START; Start 12/07/18 at 07:00; Stop 12/08/18 at 06:59; Status DC Prochlorperazine Edisylate (Compazine) 5 mg PACU PRN PRN IV NAUSEA, MRX1; Start 12/07/18 at 07:00; Stop 12/08/18 at 06:59; Status DC Docusate Sodium (Colace) 100 mg PRN DAILY PRN PO CONSTIPATION; Start 12/06/18 at 11:15 Magnesium Hydroxide (Milk Of Magnesia) 2,400 mg PRN DAILY PRN PO CONSTIPATION; Start 12/06/18 at 11:15 Polyethylene Glycol (miraLAX PACKET) 17 gm PRN DAILY PRN PO CONSTIPATION; Start 12/06/18 at 11:15 Insulin Human Lispro (HumaLOG) 0-5 UNITS TIDWMEALS SQ Last administered on 12/08/18at 17:04; Start 12/06/18 at 18:00 Dextrose (Dextrose 50%-Water Syringe) 12.5 gm PRN Q15MIN PRN IV SEE COMMENTS; Start 12/06/18 at 17:45 Dextrose 250 ml PRN Q15MIN PRN IV SEE COMMENTS; Start 12/06/18 at 17:45 Sodium Chloride 1,000 ml @ 1,000 mls/hr Q1H PRN IV hypotension; Start 12/07/18 at 08:20; Stop 12/07/18 at 14:19; Status DC Acetaminophen (Tylenol) 1,000 mg 1X PRN PRN PO MILD PAIN / TEMP; Start 12/07/18 at 08:30; Stop 12/08/18 at 08:29; Status DC Diphenhydramine HCl (Benadryl) 25 mg 1X PRN PRN IV ITCHING; Start 12/07/18 at 08:30; Stop 12/08/18 at 08:29; Status DC Diphenhydramine HCl (Benadryl) 25 mg 1X PRN PRN IV ITCHING; Start 12/07/18 at 08:30; Stop 12/08/18 at 08:29; Status DC Info (PHARMACY MONITORING -- do not chart) 1 each PRN DAILY PRN MC SEE COMMENTS; Start 12/07/18 at 08:30 Lidocaine/Sodium Bicarbonate (Buffered Lidocaine 1%) 3 ml STK-MED ONCE .ROUTE ; Start 12/07/18 at 12:26; Stop 12/07/18 at 12:26; Status DC Iodixanol (Visipaque 320) 50 ml STK-MED ONCE .ROUTE ; Start 12/07/18 at 12:26; Stop 12/07/18 at 12:26; Status DC Heparin Sodium/ Sodium Chloride 1,500 ml @ As Directed STK-MED ONCE .ROUTE ; Start 12/07/18 at 12:26; Stop 12/07/18 at 12:26; Status DC Iodixanol (Visipaque 320) 100 ml STK-MED ONCE .ROUTE ; Start 12/07/18 at 12:32; Stop 12/07/18 at 12:33; Status DC Propofol 20 ml @ As Directed STK-MED ONCE IV ; Start 12/07/18 at 13:30; Stop 12/07/18 at 13:30; Status DC Ondansetron HCl (Zofran) 4 mg STK-MED ONCE .ROUTE ; Start 12/07/18 at 13:30; Stop 12/07/18 at 13:30; Status DC Lidocaine HCl (Lidocaine Pf 2% Vial) 5 ml STK-MED ONCE .ROUTE ; Start 12/07/18 at 13:30; Stop 12/07/18 at 13:31; Status DC Sevoflurane (Ultane) 60 ml STK-MED ONCE IH ; Start 12/07/18 at 13:30; Stop 12/07/18 at 13:31; Status DC Heparin Sodium (Porcine) (Heparin Sodium) 10,000 unit STK-MED ONCE .ROUTE ; Start 12/07/18 at 13:49; Stop 12/07/18 at 13:49; Status DC Dexamethasone Sodium Phosphate (Decadron) 4 mg STK-MED ONCE .ROUTE ; Start 12/07/18 at 13:51; Stop 12/07/18 at 13:52; Status DC Ephedrine Sulfate (Akovaz) 50 mg STK-MED ONCE .ROUTE ; Start 12/07/18 at 13:57; Stop 12/07/18 at 13:57; Status DC Heparin Sodium/ Sodium Chloride (HEPARIN for ARTERIAL LINE FLUSH) 2,000 unit 1X ONCE IART Last administered on 12/07/18at 14:46; Start 12/07/18 at 14:15; Stop 12/07/18 at 14:16; Status DC Heparin Sodium/ Sodium Chloride (HEPARIN for ARTERIAL LINE FLUSH) 1,000 unit 1X ONCE IART Last administered on 12/07/18at 14:46; Start 12/07/18 at 14:15; Stop 12/07/18 at 14:16; Status DC Lidocaine/Sodium Bicarbonate (Buffered Lidocaine 1%) 3 ml 1X ONCE IJ Last adm inistered on 12/07/18at 14:46; Start 12/07/18 at 14:15; Stop 12/07/18 at 14:16; Status DC Iodixanol (Visipaque 320) 100 ml 1X ONCE IART Last administered on 12/07/18at 14:46; Start 12/07/18 at 14:15; Stop 12/07/18 at 14:16; Status DC Info (CONTRAST GIVEN -- Rx MONITORING) 1 each PRN DAILY PRN MC SEE COMMENTS; Start 12/07/18 at 14:15; Stop 12/09/18 at 14:14 Heparin Sodium (Porcine) (Heparin Sodium) 4,000 unit 1X ONCE IV Last administered on 12/07/18at 14:46; Start 12/07/18 at 14:30; Stop 12/07/18 at 14:3 1; Status DC Sevoflurane (Ultane) 60 ml STK-MED ONCE IH ; Start 12/07/18 at 14:44; Stop 12/07/18 at 14:44; Status DC Famotidine (Pepcid) 20 mg Q48H PO ; Start 12/08/18 at 21:00 Albuterol/ Ipratropium (Duoneb) 3 ml STK-MED ONCE .ROUTE ; Start 12/08/18 at 19:44; Stop 12/08/18 at 19:45; Status DC Active Scripts Active Tylenol (Acetaminophen) 325 Mg Capsule 650 Mg PO Q6-8HRS PRN [place] 5-325 Tablet (Acetaminophen/Hydrocodone Bitart) 1 Each Tablet 1 Tab PO BID 5 Days [place] 5-325 Tablet (Acetaminophen/Hydrocodone Bitart) 1 Each Tablet 1 Tab PO PRN Q6HRS PRN Alprazolam 0.5 Mg Tablet 0.5 Mg PO PRN TID PRN MDD 1 Zantac (Ranitidine Hcl) 300 Mg Tablet 1 Tab PO QHS Compazine (Prochlorperazine Maleate) 5 Mg Tablet 5 Mg PO PRN TID PRN 10 Days [Pantoprazole] 40 MG Tablet.dr 40 Mg PO DAILYAC 30 Days Reported Zoloft (Sertraline Hcl) 50 Mg Tablet 50 Mg PO DAILY Lisinopril 20 Mg Tablet 20 Mg PO DAILY Coreg (Carvedilol) 6.25 Mg Tablet 6.25 Mg PO BIDWMELORENA Frey Dr 6,000 Units Capsule (Lipase/Protease/Amylase) 1 Each Capsule. 1 Tab PO TID Proair Hfa (Albuterol Sulfate) 8.5 Gm Hfa.aer.ad 2 Puff INH BID PRN Levothyroxine Sodium 50 Mcg Tablet 1 Tab PO DAILY Clonidine Tts-2 (Clonidine) 1 Each Patch.tdwk 1 Patch TD WEEKLY Amlodipine Besylate 5 Mg Tablet 10 Mg PO DAILY Atorvastatin Calcium 40 Mg Tablet 40 Mg PO HS Latanoprost 2.5 Ml Drops 1 Drop EACHEYE HS Vitals/I & O Vital Sign - Last 24 Hours 12/08/18 12/08/18 12/08/18 12/08/18 09:39 11:00 12:55 14:26 Temp 99.0 99.0 Pulse 78 Resp 18 18 18 B/P (MAP) 105/55 (72) Pulse Ox 95 96 O2 Delivery Room Air Room Air Room Air Room Air O2 Flow Rate 6.0 12/08/18 12/08/18 12/08/18 12/08/18 14:35 15:00 15:54 16:17 Temp 98.2 98.2 Pulse 71 Resp 18 18 16 18 B/P (MAP) 118/37 (64) Pulse Ox 92 O2 Delivery Room Air Room Air Room Air Room Air 12/08/18 12/08/18 12/08/18 12/08/18 17:04 17:04 17:05 18:08 Pulse 71 Resp 18 18 18 B/P (MAP) 118/37 O2 Delivery Room Air Room Air Room Air 12/08/18 12/08/18 12/08/18 12/08/18 18:14 19:00 19:05 19:30 Temp 98.3 98.3 Pulse 63 Resp 18 20 18 B/P (MAP) 95/43 (60) Pulse Ox 95 O2 Delivery Room Air Room Air Room Air Room Air 12/08/18 12/08/18 12/08/18 12/08/18 20:29 22:58 23:14 23:55 Resp 17 15 18 14 Pulse Ox 95 95 95 95 O2 Delivery Room Air Room Air Room Air Room Air 12/09/18 12/09/18 12/09/18 12/09/18 01:31 03:34 06:03 07:00 Temp 98.8 98.8 Pulse 91 Resp 17 15 17 12 B/P (MAP) 119/78 (92) Pulse Ox 95 95 95 96 O2 Delivery Room Air Room Air Room Air Room Air 12/09/18 12/09/18 12/09/18 12/09/18 07:29 09:16 09:16 09:16 Pulse 91 91 91 Resp 16 B/P (MAP) 119/78 119/78 119/78 Pulse Ox 95 O2 Delivery Room Air Intake and Output 12/08/18 12/08/18 12/09/18 15:00 23:00 07:00 Intake Total 360 ml Output Total 75 ml 2 ml Balance 285 ml -2 ml PRABHAKAR MOSQUERA MD Dec 09, 2018 09:36
[2018-12-09 10:07] LABS: BASO # 0.1 x10^3/uL (0.0-0.2); BASO % 1 % (0-3); EOS % 1 % (0-3); HEMATOCRIT 29.1 % (36.0-47.0); HEMOGLOBIN 9.8 g/dL (12.0-15.5); LYMPH # 1.6 x10^3/uL (1.0-4.8); LYMPH % 16 % (24-48); MEAN CORPUSCULAR HEMOGLOBIN 30 pg (25-35); MEAN CORPUSCULAR HGB CONC 34 g/dL (31-37); MEAN CORPUSCULAR VOLUME 90 fL (79-100); MONO # 1.6 x10^3/uL (0.0-1.1); MONO % 17 % (0-9); NEUT # 6.6 x10^3/uL (1.8-7.7); NEUT % 66 % (31-73); PLATELET COUNT 263 x10^3/uL (140-400); RED BLOOD COUNT 3.25 x10^6/uL (3.50-5.40); RED CELL DISTRIBUTION WIDTH 16.4 % (11.5-14.5)
[2018-12-09 10:16] LABS: CALCIUM 8.5 mg/dL (8.5-10.1); CREATININE 6.1 mg/dL (0.6-1.0); GFR 8.6
[2018-12-09 10:21] LABS: POTASSIUM 5.2 mmol/L (3.5-5.1)
[2018-12-09 11:00] VITALS: BP 159/48
--- NOTE | 2018-12-09 12:45 | PDOC ---
Renal-Progress Notes Subjective Notes Notes NOTHING NEW History of Present Illness Hx of present illness STABLE Vitals Vitals Vital Signs Date Time Temp Pulse Resp B/P (MAP) Pulse Ox O2 Delivery O2 Flow Rate FiO2 12/09/18 11:00 98.9 69 16 159/48 (85) 96 Room Air 98.9 12/08/18 09:39 6.0 Weight Weight [ ] I.O. Intake and Output Intake and Output 12/09/18 07:00 Intake Total 360 ml Output Total 77 ml Balance 283 ml Intake Oral 360 ml Output Urine Total 75 ml Stool Total 2 ml # Voids 1 # Bowel Movements 2 Labs Labs Laboratory Tests Test 12/08/18 16:51 12/08/18 20:29 12/09/18 07:58 12/09/18 09:56 Glucose (Fingerstick) 243 mg/dL (70-99) 217 mg/dL (70-99) 141 mg/dL (70-99) White Blood Count 10.0 x10^3/uL (4.0-11.0) Red Blood Count 3.25 x10^6/uL (3.50-5.40) Hemoglobin 9.8 g/dL (12.0-15.5) Hematocrit 29.1 % (36.0-47.0) Mean Corpuscular Volume 90 fL (79-100) Mean Corpuscular Hemoglobin 30 pg (25-35) Mean Corpuscular Hemoglobin Concent 34 g/dL (31-37) Red Cell Distribution Width 16.4 % (11.5-14.5) Platelet Count 263 x10^3/uL (140-400) Neutrophils (%) (Auto) 66 % (31-73) Lymphocytes (%) (Auto) 16 % (24-48) Monocytes (%) (Auto) 17 % (0-9) Eosinophils (%) (Auto) 1 % (0-3) Basophils (%) (Auto) 1 % (0-3) Neutrophils # (Auto) 6.6 x10^3/uL (1.8-7.7) Lymphocytes # (Auto) 1.6 x10^3/uL (1.0-4.8) Monocytes # (Auto) 1.6 x10^3/uL (0.0-1.1) Eosinophils # (Auto) 0.0 x10^3/uL (0.0-0.7) Basophils # (Auto) 0.1 x10^3/uL (0.0-0.2) Sodium Level 138 mmol/L (136-145) Potassium Level 5.2 mmol/L (3.5-5.1) Chloride Level 97 mmol/L (98-107) Carbon Dioxide Level 35 mmol/L (21-32) Anion Gap 6 (6-14) Blood Urea Nitrogen 39 mg/dL (7-20) Creatinine 6.1 mg/dL (0.6-1.0) Estimated GFR (Cockcroft-Gault) 8.6 Glucose Level 157 mg/dL (70-99) Calcium Level 8.5 mg/dL (8.5-10.1) Test 12/09/18 12:00 Glucose (Fingerstick) 137 mg/dL (70-99) Micro Micro Microbiology 12/01/18 Blood Culture - Final, Complete NO GROWTH AFTER 5 DAYS Review of Systems Constitutional: yes: alert, oriented Ears/Nose/Throat: Yes: no symptom reported Pulmonary: Yes no symptom reported Cardiovascular: Yes no symptom reported Gastrointestional: Yes: no symptom reported Genitourinary: Yes: no symptom reported Musculoskeletal: Yes: foot pain, joint pain Psychiatric/Neurological: Yes: no symptom reported Physical Exam General Appearance: alert, oriented Skin: warm Respiratory: bilateral CTA Abdomen: bowel sounds present Genitourinary: bladder flat Extremities: pulses present Neurology: alert Assessment Assessment IMP ESRD ANEMIA HTN NON COMPLIANCE RIGHT FOOT GANGRENE SEVERE PAD S/P RIGHT BKA AND LEFT TOE AMP PLAN HD TOMORROW PAIN CONTROL ANTIBIOTICS ENC COMPLIANCE WOUND CARE SUPPORTIVE CARE BENY PAINTER MD Dec 09, 2018 12:45
[2018-12-09 15:00] VITALS: BP 146/51
[2018-12-09 19:00] VITALS: BP 150/45
[2018-12-09] MEDS: ATORVASTATIN CALCIUM 40 MG TABLET. PO SCH (20:08)
[2018-12-09] MEDS: cefTRIAXone IV Push 1 GM VIAL. IVP SCH (20:12)
[2018-12-09] MEDS: DARBEPOETIN ALFA 60 MCG/0.3 ML DISP.SYRIN. SQ SCH (20:12)
[2018-12-09] MEDS: LATANOPROST 0.005% OPHTH SOLUTION 2.5ML BOTTLE. OU SCH (20:18)
[2018-12-09 23:00] VITALS: BP 156/62
[2018-12-10] MEDS: HYDROcodone/APAP 10/325 1 TAB TABLET PO PRN ×4 (02:08→19:22)
[2018-12-10] MEDS: fentaNYL PF VIAL 100 MCG/2 ML VIAL IV PRN ×8 (04:42→22:28)
[2018-12-10 07:00] VITALS: BP 145/62
[2018-12-10] MEDS: INSULIN LISPRO 300 UNITS/3 ML VIAL. SQ SCH ×3 (08:00→17:26)
[2018-12-10] MEDS: CARVEDILOL 6.25 MG TABLET. PO SCH ×2 (08:00→17:28)
[2018-12-10] MEDS: ALPRAZolam 0.5 MG TABLET PO PRN ×2 (08:28→17:28)
[2018-12-10] MEDS ORDERED: IV NORMAL SALINE 1000ML BAG 1,000 ML IV PRN ×2 (08:29)
[2018-12-10] MEDS ORDERED: diphenhydrAMINE 50 MG/ML VIAL IV PRN ×2 (08:30)
[2018-12-10] MEDS ORDERED: DIALYSIS PATIENT. MC PRN ×2 (08:30)
[2018-12-10] MEDS: amLODIPine BESYLATE 5 MG TABLET PO SCH (09:00)
[2018-12-10] MEDS: LACTOBACILLUS RHAMNOSUS GG 1 CAPSULE. PO SCH ×2 (09:00→21:00)
[2018-12-10] MEDS: FOLIC/VIT B COMP W-C (RENAL) TABLET. PO SCH (09:00)
[2018-12-10] MEDS: LISINOPRIL 20 MG TABLET PO SCH (09:00)
[2018-12-10] MEDS: LEVOTHYROXINE 50 MCG TABLET PO SCH (09:00)
[2018-12-10] MEDS: SERTRALINE 50 MG TABLET. PO SCH (09:00)
--- NOTE | 2018-12-10 10:13 | PDOC ---
SUBJECTIVE ROS Seen on HD, no new complaints OBJECTIVE Vital Signs Vital Signs Date Time Temp Pulse Resp B/P (MAP) Pulse Ox O2 Delivery O2 Flow Rate FiO2 12/10/18 08:29 Room Air 12/10/18 07:00 97.9 68 18 145/62 (89) 94 97.9 I & 0 Intake and Output 12/10/18 07:00 Output Total 0 ml Balance 0 ml Output Urine Total 0 ml # Voids 1 PHYSICAL EXAM Physical Exam General: NAD HEENT: OM moist , On RA Lungs: Clear to auscultation, no acc muscle use Heart: S1S2, RRR Abdomen: Normal bowel sounds, Soft, No tenderness, Extremities: Skin: No rash Neuro: Grossly normal No [place] DIAGNOSIS/ASSESSMENT Assessment & Plan ESRD - On HD MWF Chronic non compliance Seen on HD , Tolerating well, 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, Eddie Daniels ACcess- Permacath, Failed AVF AVG placed in September 2018 at [facility] - Left upper arm brachial artery to brachial vein arterial to venous graft placement using PTFE graft. 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 Diabetes w peripheral neuropathy Anemia - On Aranesp esophageal mass biopsy polysubstance abuse hx COMMENT/RELEVANT DATA Meds Current Medications Medications (Trade) Dose Ordered Sig/Clarence Start Time Stop Time Status Last Admin Dose Admin Acetaminophen (Tylenol) 1,000 mg 1X PRN PRN 12/07/18 08:30 12/08/18 08:29 DC Acetaminophen/ Hydrocodone Bitart (Lortab 10/325) 1 tab PRN Q4HRS PRN 12/03/18 10:45 12/10/18 02:08 1 TAB Acetaminophen/ Hydrocodone Bitart (Lortab 5/325) 2 tab PRN Q6HRS PRN 12/02/18 09:00 12/03/18 10:41 DC 12/02/18 18:55 2 TAB Albumin Human 200 ml @ 200 mls/hr 1X PRN PRN 12/03/18 10:15 12/03/18 16:14 DC Albuterol Sulfate (Ventolin Neb Soln) 2.5 mg PRN Q4HRS PRN 12/01/18 19:30 Albuterol/ Ipratropium (Duoneb) 3 ml STK-MED ONCE 12/08/18 19:44 12/08/18 19:45 DC Alprazolam (Xanax) 0.5 mg PRN TID PRN 12/01/18 19:30 12/10/18 08:29 0.5 MG Amlodipine Besylate (Norvasc) 10 mg DAILY 12/02/18 09:00 12/09/18 09:16 10 MG Amylase/Lipase/ Protease (Zenpep 5,000) 1 cap TIDWMEALS 12/02/18 08:00 12/09/18 17:17 1 CAP Atorvastatin Calcium (Lipitor) 40 mg HS 12/01/18 21:00 12/09/18 20:18 40 MG Bacitracin 48675 unit/Sodium Chloride 500 ml @ 500 mls/hr 1X ONCE 12/05/18 06:00 12/05/18 06:59 DC 12/05/18 12:29 Carvedilol (Coreg) 6.25 mg BIDWMEALS 12/02/18 08:00 12/09/18 17:17 6.25 MG Cefazolin Sodium/ Dextrose 50 ml @ 100 mls/hr 1X PREOP PRN 12/05/18 13:00 12/06/18 12:59 DC 12/05/18 13:37 100 MLS/HR Ceftriaxone Sodium (Rocephin) 1 gm Q24H 12/01/18 20:00 12/09/18 20:18 1 GM Clonidine HCl (Catapres Tts-2) 1 patch WEEKLY 12/08/18 09:00 12/08/18 08:38 1 PATCH Darbepoetin Jarrett (ARANESP for DIALYSIS PTS) 60 mcg WEEKLYHS 12/02/18 21:00 12/09/18 20:18 60 MCG Dexamethasone Sodium Phosphate (Decadron) 4 mg STK-MED ONCE 12/07/18 13:51 12/07/18 13:52 DC Dextrose 250 ml PRN Q15MIN PRN 12/06/18 17:45 Dextrose (Dextrose 50%-Water Syringe) 12.5 gm PRN Q15MIN PRN 12/06/18 17:45 Diphenhydramine HCl (Benadryl) 25 mg 1X PRN PRN 12/10/18 08:30 12/11/18 08:29 Docusate Sodium (Colace) 100 mg PRN DAILY PRN 12/06/18 11:15 Ephedrine Sulfate (Akovaz) 50 mg STK-MED ONCE 12/07/18 13:57 12/07/18 13:57 DC Ephedrine Sulfate (ePHEDrine PF IN SALINE SYRINGE) 50 mg STK-MED ONCE 12/05/18 14:09 12/05/18 14:09 DC Famotidine (Pepcid) 20 mg Q48H 12/08/18 21:00 Fentanyl Citrate (Fentanyl 2ml Vial) 50 mcg PRN Q5MIN PRN 12/07/18 07:00 12/08/18 06:59 DC Heparin Sodium (Porcine) (Heparin Sodium) 4,000 unit 1X ONCE 12/07/18 14:30 12/07/18 14:31 DC 12/07/18 14:46 4,000 UNIT Heparin Sodium/ Sodium Chloride (HEPARIN for ARTERIAL LINE FLUSH) 1,000 unit 1X ONCE 12/07/18 14:15 12/07/18 14:16 DC 12/07/18 14:46 1,000 UNIT Hydralazine HCl (Apresoline Inj) 20 mg STK-MED ONCE 12/05/18 13:28 12/05/18 13:28 DC Hydromorphone HCl (Dilaudid) 0.5 mg PRN Q10MIN PRN 12/05/18 15:00 12/05/18 20:00 DC 12/05/18 15:56 0.5 MG Info (CONTRAST GIVEN -- Rx MONITORING) 1 each PRN DAILY PRN 12/07/18 14:15 12/09/18 14:14 DC Info (PHARMACY MONITORING -- do not chart) 1 each PRN DAILY PRN 12/10/18 08:30 UNV Insulin Human Lispro (HumaLOG) 0-5 UNITS TIDWMEALS 12/06/18 18:00 12/09/18 17:17 2 UNITS Iodixanol (Visipaque 320) 100 ml 1X ONCE 12/07/18 14:15 12/07/18 14:16 DC 12/07/18 14:46 60 ML Lactobacillus Rhamnosus (Culturelle) 1 cap BID 12/02/18 21:00 12/09/18 20:18 1 CAP Latanoprost (Xalatan) 1 drop HS 12/01/18 21:00 12/09/18 20:18 1 DROP Levothyroxine Sodium (Synthroid) 50 mcg DAILY 12/02/18 09:00 12/09/18 09:16 50 MCG Lidocaine HCl (Lidocaine Pf 2% Vial) 5 ml STK-MED ONCE 12/07/18 13:30 12/07/18 13:31 DC Lidocaine HCl (Xylocaine-Mpf 1% 2ml Vial) 2 ml PRN 1X PRN 12/07/18 07:00 12/08/18 06:59 DC Lidocaine/Sodium Bicarbonate (Buffered Lidocaine 1%) 3 ml 1X ONCE 12/07/18 14:15 12/07/18 14:16 DC 12/07/18 14:46 3 ML Lisinopril (Prinivil) 20 mg DAILY 12/02/18 09:00 12/09/18 09:16 20 MG Magnesium Hydroxide (Milk Of Magnesia) 2,400 mg PRN DAILY PRN 12/06/18 11:15 Magnesium Sulfate 50 ml @ 25 mls/hr PRN DAILY PRN 12/02/18 09:30 Non-Formulary Medication ([Pantoprazole] ) 40 mg DAILYAC 12/02/18 07:30 UNV Ondansetron HCl (Zofran) 4 mg STK-MED ONCE 12/07/18 13:30 12/07/18 13:30 DC Pharmacy Consult (C.diff Med Screen By Rx) 1 each 1X ONCE 12/01/18 18:15 12/01/18 18:16 Cancel Polyethylene Glycol (miraLAX PACKET) 17 gm PRN DAILY PRN 12/06/18 11:15 Prochlorperazine Edisylate (Compazine) 5 mg PACU PRN PRN 12/07/18 07:00 12/08/18 06:59 DC Prochlorperazine Maleate (Compazine) 5 mg PRN TID PRN 12/01/18 19:30 12/03/18 19:56 5 MG Propofol 20 ml @ As Directed STK-MED ONCE 12/07/18 13:30 12/07/18 13:30 DC Ringer's Solution 1,000 ml @ 30 mls/hr Q24H 12/07/18 07:00 12/07/18 18:59 DC Sertraline HCl (Zoloft) 50 mg DAILY 12/02/18 09:00 12/09/18 09:16 50 MG Sevoflurane (Ultane) 60 ml STK-MED ONCE 12/07/18 14:44 12/07/18 14:44 DC Sodium Chloride 1,000 ml @ 400 mls/hr Q2H30M PRN 12/10/18 08:29 12/10/18 20:28 Sodium Chloride (Normal Saline Flush) 10 ml 1X PRN PRN 12/03/18 10:15 12/04/18 10:14 DC Vitamin B Complex/ Vitamin C (Pinky-Shreya) 1 tab DAILY 12/02/18 09:00 12/09/18 09:16 1 TAB Lab Laboratory Tests Test 12/09/18 12:00 12/09/18 16:45 12/10/18 07:14 Glucose (Fingerstick) 137 mg/dL (70-99) 167 mg/dL (70-99) 146 mg/dL (70-99) Results All relevant outside records, renal labs, imaging studies, telemetry/EKG's were reviewed. DOMINIQUE TSE MD Dec 10, 2018 10:13
--- NOTE | 2018-12-10 10:38 | PDOC ---
PROGRESS NOTES Chief Complaint Chief Complaint s/p RT BKA 12/05/18 with indwelling JEFFREY drain s/p right BKA s/p Left AT angioplasty Gangrene of right FOOT 3 toes of foot. 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 - RECENT needs local wound care Dyslipidemia malnutrition polysubstance abuse hx Diffuse moderate to advanced atherosclerotic plaque in the lower EXT arteries with moderate stenosis in the mid SFA, Right lower extremity angiography with subsequent angioplasty of the right superficial femoral artery and anterior tibial artery SEPTEMBER 2018 History of Present Illness History of Present Illness seen in HD she is crying again Accepted at [facility]- waiting for insurance mikki -osman vargas But she has a rt knot there rt groin, some pain LAbs ok PLAN: check sono rt groin If nothing serious can go to rehab today I will do meds, osman RN and susan Vitals Vitals Vital Signs Date Time Temp Pulse Resp B/P (MAP) Pulse Ox O2 Delivery O2 Flow Rate FiO2 12/10/18 08:29 Room Air 12/10/18 07:00 97.9 68 18 145/62 (89) 94 97.9 Physical Exam General: Alert, Oriented X3, Cooperative, mild distress Heart: Regular rate, Normal S1, Normal S2, No murmurs Lungs: Clear Abdomen: Normal bowel sounds, Soft, No hepatosplenomegaly Extremities: Other (ischemic limb) Skin: No rashes, Other Labs LABS Laboratory Tests Test 12/09/18 12:00 12/09/18 16:45 12/10/18 07:14 Glucose (Fingerstick) 137 mg/dL (70-99) 167 mg/dL (70-99) 146 mg/dL (70-99) Review of Systems Review of Systems rt groin pain, pain everywhere, anxious Assessment and Plan Assessmemt and Plan Problems Medical Problems: (1) Acute anemia Status: Acute (2) Anasarca Status: Acute (3) ESRD on dialysis Status: Chronic (4) Gangrene of toe of right foot Status: Acute Comment Review of Relevant I have reviewed the following items pamela (where applicable) has been applied. Labs Laboratory Tests Test 12/08/18 11:43 12/08/18 16:51 12/08/18 20:29 12/09/18 07:58 Glucose (Fingerstick) 192 mg/dL (70-99) 243 mg/dL (70-99) 217 mg/dL (70-99) 141 mg/dL (70-99) Test 12/09/18 09:56 12/09/18 12:00 12/09/18 16:45 12/10/18 07:14 White Blood Count 10.0 x10^3/uL (4.0-11.0) Red Blood Count 3.25 x10^6/uL (3.50-5.40) Hemoglobin 9.8 g/dL (12.0-15.5) Hematocrit 29.1 % (36.0-47.0) Mean Corpuscular Volume 90 fL (79-100) Mean Corpuscular Hemoglobin 30 pg (25-35) Mean Corpuscular Hemoglobin Concent 34 g/dL (31-37) Red Cell Distribution Width 16.4 % (11.5-14.5) Platelet Count 263 x10^3/uL (140-400) Neutrophils (%) (Auto) 66 % (31-73) Lymphocytes (%) (Auto) 16 % (24-48) Monocytes (%) (Auto) 17 % (0-9) Eosinophils (%) (Auto) 1 % (0-3) Basophils (%) (Auto) 1 % (0-3) Neutrophils # (Auto) 6.6 x10^3/uL (1.8-7.7) Lymphocytes # (Auto) 1.6 x10^3/uL (1.0-4.8) Monocytes # (Auto) 1.6 x10^3/uL (0.0-1.1) Eosinophils # (Auto) 0.0 x10^3/uL (0.0-0.7) Basophils # (Auto) 0.1 x10^3/uL (0.0-0.2) Sodium Level 138 mmol/L (136-145) Potassium Level 5.2 mmol/L (3.5-5.1) Chloride Level 97 mmol/L (98-107) Carbon Dioxide Level 35 mmol/L (21-32) Anion Gap 6 (6-14) Blood Urea Nitrogen 39 mg/dL (7-20) Creatinine 6.1 mg/dL (0.6-1.0) Estimated GFR (Cockcroft-Gault) 8.6 Glucose Level 157 mg/dL (70-99) Calcium Level 8.5 mg/dL (8.5-10.1) Glucose (Fingerstick) 137 mg/dL (70-99) 167 mg/dL (70-99) 146 mg/dL (70-99) Laboratory Tests Test 12/09/18 12:00 12/09/18 16:45 12/10/18 07:14 Glucose (Fingerstick) 137 mg/dL (70-99) 167 mg/dL (70-99) 146 mg/dL (70-99) Microbiology 12/01/18 Blood Culture - Final, Complete NO GROWTH AFTER 5 DAYS Medications Current Medications Fentanyl Citrate (Fentanyl 2ml Vial) 50 mcg 1X STAT IV Last administered on 12/01/18at 15:29; Start 12/01/18 at 15:21; Stop 12/01/18 at 15:23; Status DC Fentanyl Citrate (Fentanyl 2ml Vial) 50 mcg 1X STAT IV Last administered on 12/01/18at 16:24; Start 12/01/18 at 16:09; Stop 12/01/18 at 16:11; Status DC Ondansetron HCl (Zofran) 4 mg PRN Q8HRS PRN IV NAUSEA/VOMITING; Start 12/01/18 at 16:30; Stop 12/02/18 at 16:29; Status DC Fentanyl Citrate (Fentanyl 2ml Vial) 50 mcg PRN Q1HR PRN IV PAIN Last administered on 12/02/18at 07:33; Start 12/01/18 at 16:30; Stop 12/02/18 at 08:48; Status DC Pharmacy Consult (C.diff Med Screen By Rx) 1 each 1X ONCE MC ; Start 12/01/18 at 18:15; Stop 12/01/18 at 18:16; Status Cancel Albuterol Sulfate (Ventolin Neb Soln) 2.5 mg PRN Q4HRS PRN NEB SHORTNESS OF BREATH; Start 12/01/18 at 19:30 Alprazolam (Xanax) 0.5 mg PRN TID PRN PO ANXIETY / AGITATION Last administered on 12/10/18at 08:29; Start 12/01/18 at 19:30 Amlodipine Besylate (Norvasc) 10 mg DAILY PO Last administered on 12/09/18 09:16; Start 12/02/18 at 09:00 Atorvastatin Calcium (Lipitor) 40 mg HS PO Last administered on 12/09/18 20:18; Start 12/01/18 at 21:00 Carvedilol (Coreg) 6.25 mg BIDWMEALS PO Last administered on 12/09/18 17:17; Start 12/02/18 at 08:00 Clonidine HCl (Catapres Tts-2) 1 patch WEEKLY TD Last administered on 12/08/18 08:38; Start 12/08/18 at 09:00 Acetaminophen/ Hydrocodone Bitart (Lortab 5/325) 1 tab BID PO ; Start 12/01/18 at 21:00; Status Cancel Acetaminophen/ Hydrocodone Bitart (Lortab 5/325) 1 tab PRN Q6HRS PRN PO PAIN Last administered on 12/02/18 04:43; Start 12/01/18 at 19:30; Stop 12/02/18 at 08:48; Status DC Latanoprost (Xalatan) 1 drop HS OU Last administered on 12/09/18 20:18; Start 12/01/18 at 21:00 Levothyroxine Sodium (Synthroid) 50 mcg DAILY PO Last administered on 12/09/18 09:16; Start 12/02/18 at 09:00 Lisinopril (Prinivil) 20 mg DAILY PO Last administered on 12/09/18 09:16; Start 12/02/18 at 09:00 Prochlorperazine Maleate (Compazine) 5 mg PRN TID PRN PO NAUSEA Last administered on 12/03/18 19:56; Start 12/01/18 at 19:30 Sertraline HCl (Zoloft) 50 mg DAILY PO Last administered on 12/09/18 09:16; Start 12/02/18 at 09:00 Acetaminophen (Tylenol) 650 mg PRN Q6HRS PRN PO MILD PAIN / TEMP; Start 12/01/18 at 19:45 Amylase/Lipase/ Protease (Zenpep 5,000) 1 cap TIDWMEALS PO Last administered on 12/09/18 17:17; Start 12/02/18 at 08:00 Famotidine (Pepcid) 20 mg HS PO Last administered on 12/07/18at 20:09; Start 12/01/18 at 21:00; Stop 12/08/18 at 17:21; Status DC Non-Formulary Medication ([Pantoprazole] ) 40 mg DAILYAC PO ; Start 12/02/18 at 07:30; Status UNV Ceftriaxone Sodium (Rocephin) 1 gm Q24H IVP Last administered on 12/09/18at 20:18; Start 12/01/18 at 20:00 Vitamin B Complex/ Vitamin C (Pinky-Shreya) 1 tab DAILY PO Last administered on 12/09/18 09:16; Start 12/02/18 at 09:00 Fentanyl Citrate (Fentanyl 2ml Vial) 75 mcg PRN Q2HR PRN IV PAIN Last administered on 12/03/18 07:36; Start 12/02/18 at 09:00; Stop 12/03/18 at 08:59; Status DC Acetaminophen/ Hydrocodone Bitart (Lortab 5/325) 2 tab PRN Q6HRS PRN PO MODERAT E - SEVERE PAIN Last administered on 12/02/18at 18:55; Start 12/02/18 at 09:00; Stop 12/03/18 at 10:41; Status DC Magnesium Sulfate 50 ml @ 25 mls/hr PRN DAILY PRN IV for Mag < 1.7 on am labs; Start 12/02/18 at 09:30 Darbepoetin Jarrett (ARANESP for DIALYSIS PTS) 60 mcg WEEKLYHS SQ Last administered on 12/09/18at 20:18; Start 12/02/18 at 21:00 Lactobacillus Rhamnosus (Culturelle) 1 cap BID PO Last administered on 12/09/18at 20:18; Start 12/02/18 at 21:00 Fentanyl Citrate (Fentanyl 2ml Vial) 100 mcg PRN Q2HR PRN IV PAIN Last administered on 12/10/18at 08:29; Start 12/03/18 at 09:45 Fentanyl Citrate (Fentanyl 2ml Vial) 100 mcg STK-MED ONCE .ROUTE ; Start 12/03/18 at 09:45; Stop 12/03/18 at 09:45; Status DC Sodium Chloride 1,000 ml @ 1,000 mls/hr Q1H PRN IV hypotension; Start 12/03/18 at 10:12; Stop 12/03/18 at 16:11; Status DC Albumin Human 200 ml @ 200 mls/hr 1X PRN PRN IV Hypotension; Start 12/03/18 at 10:15; Stop 12/03/18 at 16:14; Status DC Sodium Chloride (Normal Saline Flush) 10 ml 1X PRN PRN IV AP catheter pack; Start 12/03/18 at 10:15; Stop 12/04/18 at 10:14; Status DC Sodium Chloride (Normal Saline Flush) 10 ml 1X PRN PRN IV MEDICATION TECH catheter pack; Start 12/03/18 at 10:15; Stop 12/04/18 at 10:14; Status DC Sodium Chloride 1,000 ml @ 400 mls/hr Q2H30M PRN IV PATENCY; Start 12/03/18 at 10:12; Stop 12/03/18 at 22:11; Status DC Info (PHARMACY MONITORING -- do not chart) 1 each PRN DAILY PRN MC SEE COMMENTS; Start 12/03/18 at 10:15; Status UNV Info (PHARMACY MONITORING -- do not chart) 1 each PRN DAILY PRN MC SEE RAMÓN BELL; Start 12/03/18 at 10:15; Stop 12/07/18 at 19:19; Status DC Acetaminophen/ Hydrocodone Bitart (Lortab 10/325) 1 tab PRN Q4HRS PRN PO MODERATE TO SEVERE PAIN Last administered on 12/10/18at 02:08; Start 12/03/18 at 10:45 Ondansetron HCl (Zofran) 4 mg PRN Q6HRS PRN IV NAUSEA/VOMITING; Start 12/05/18 at 07:00; Stop 12/05/18 at 07:01; Status DC Fentanyl Citrate (Fentanyl 2ml Vial) 25 mcg PRN Q5MIN PRN IV MILD PAIN 1-3; Start 12/05/18 at 07:00; Stop 12/05/18 at 20:00; Status DC Fentanyl Citrate (Fentanyl 2ml Vial) 50 mcg PRN Q5MIN PRN IV MODERATE TO SEVERE PAIN Last administered on 12/05/18at 14:59; Start 12/05/18 at 07:00; Stop at 20:00; Status DC Ringer's Solution 1,000 ml @ 30 mls/hr Q24H IV ; Start 12/05/18 at 07:00; Stop 12/05/18 at 11:44; Status DC Lidocaine HCl (Xylocaine-Mpf 1% 2ml Vial) 2 ml PRN 1X PRN ID PRIOR TO IV START; Start 12/05/18 at 07:00; Stop 12/05/18 at 20:00; Status DC Prochlorperazine Edisylate (Compazine) 5 mg PACU PRN PRN IV NAUSEA, MRX1 Last administered on 12/05/18at 14:59; Start 12/05/18 at 07:00; Stop 12/05/18 at 20:00; Status DC Bacitracin 06214 unit/Sodium Chloride 500 ml @ 500 mls/hr 1X ONCE IRR Last administered on 12/05/18at 12:29; Start 12/05/18 at 06:00; Stop 12/05/18 at 06:59; Status DC Sodium Chloride 1,000 ml @ 1,000 mls/hr Q1H PRN IV hypotension; Start 12/05/18 at 07:31; Stop 12/05/18 at 13:30; Status DC Diphenhydramine HCl (Benadryl) 25 mg 1X PRN PRN IV ITCHING; Start 12/05/18 at 07:45; Stop 12/06/18 at 07:44; Status DC Diphenhydramine HCl (Benadryl) 25 mg 1X PRN PRN IV ITCHING; Start 12/05/18 at 07:45; Stop 12/06/18 at 07:44; Status DC Sodium Chloride 1,000 ml @ 400 mls/hr Q2H30M PRN IV PATENCY; Start 12/05/18 at 07:31; Stop 12/05/18 at 19:30; Status DC Info (PHARMACY MONITORING -- do not chart) 1 each PRN DAILY PRN MC SEE COMMENTS; Start 12/05/18 at 07:45; Stop 12/05/18 at 07:35; Status DC Info (PHARMACY MONITORING -- do not chart) 1 each PRN DAILY PRN MC SEE COMMENTS; Start 12/05/18 at 07:45; Status UNV Ondansetron HCl (Zofran) 4 mg 1X STAT IV Last administered on 12/05/18at 09:45; Start 12/05/18 at 09:34; Stop 12/05/18 at 09:35; Status DC Sodium Chloride 1,000 ml @ 30 mls/hr Q24H IV Last administered on 12/07/18at 12:24; Start 12/05/18 at 11:45; Stop 12/08/18 at 10:36; Status DC Propofol 20 ml @ As Directed STK-MED ONCE IV ; Start 12/05/18 at 12:06; Stop 12/05/18 at 12:06; Status DC Lidocaine HCl (Lidocaine Pf 2% Vial) 5 ml STK-MED ONCE .ROUTE ; Start 12/05/18 at 12:06; Stop 12/05/18 at 12:06; Status DC Fentanyl Citrate (Fentanyl 2ml Vial) 100 mcg STK-MED ONCE .ROUTE ; Start 12/05/18 at 12:06; Stop 12/05/18 at 12:06; Status DC Cefazolin Sodium/ Dextrose 50 ml @ 100 mls/hr 1X PREOP PRN IV PRIOR TO PROCEDURE Last administered on 12/05/18at 13:37; Start 12/05/18 at 13:00; Stop 12/06/18 at 12:59; Status DC Dexamethasone Sodium Phosphate (Decadron) 4 mg STK-MED ONCE .ROUTE ; Start 12/05/18 at 13:16; Stop 12/05/18 at 13:16; Status DC Ondansetron HCl (Zofran) 4 mg STK-MED ONCE .ROUTE ; Start 12/05/18 at 13:16; Stop 12/05/18 at 13:16; Status DC Sevoflurane (Ultane) 60 ml STK-MED ONCE IH ; Start 12/05/18 at 13:16; Stop 12/05/18 at 13:16; Status DC Hydralazine HCl (Apresoline Inj) 20 mg STK-MED ONCE .ROUTE ; Start 12/05/18 at 13:28; Stop 12/05/18 at 13:28; Status DC Ephedrine Sulfate (ePHEDrine PF IN SALINE SYRINGE) 50 mg STK-MED ONCE IV ; Start 12/05/18 at 14:09; Stop 12/05/18 at 14:09; Status DC Hydromorphone HCl (Dilaudid) 0.5 mg PRN Q10MIN PRN IV pain Last administered on 12/05/18at 15:56; Start 12/05/18 at 15:00; Stop 12/05/18 at 20:00; Status DC Ondansetron HCl (Zofran) 4 mg PRN Q6HRS PRN IV NAUSEA/VOMITING; Start 12/07/18 at 07:00; Stop 12/08/18 at 06:59; Status DC Fentanyl Citrate (Fentanyl 2ml Vial) 25 mcg PRN Q5MIN PRN IV MILD PAIN 1-3; Start 12/07/18 at 07:00; Stop 12/08/18 at 06:59; Status DC Fentanyl Citrate (Fentanyl 2ml Vial) 50 mcg PRN Q5MIN PRN IV MODERATE TO SEVERE PAIN; Start 12/07/18 at 07:00; Stop 12/08/18 at 06:59; Status DC Ringer's Solution 1,000 ml @ 30 mls/hr Q24H IV ; Start 12/07/18 at 07:00; Stop 12/07/18 at 18:59; Status DC Lidocaine HCl (Xylocaine-Mpf 1% 2ml Vial) 2 ml PRN 1X PRN ID PRIOR TO IV START; Start 12/07/18 at 07:00; Stop 12/08/18 at 06:59; Status DC Prochlorperazine Edisylate (Compazine) 5 mg PACU PRN PRN IV NAUSEA, MRX1; Start 12/07/18 at 07:00; Stop 12/08/18 at 06:59; Status DC Docusate Sodium (Colace) 100 mg PRN DAILY PRN PO STOOL SOFTENER; Start 12/06/18 at 11:15 Magnesium Hydroxide (Milk Of Magnesia) 2,400 mg PRN DAILY PRN PO CONSTIPATION, 2ND CHOICE; Start 12/06/18 at 11:15 Polyethylene Glycol (miraLAX PACKET) 17 gm PRN DAILY PRN PO CONSTIPATION, 1ST CHOICE; Start 12/06/18 at 11:15 Insulin Human Lispro (HumaLOG) 0-5 UNITS TIDWMEALS SQ Last administered on 12/09/18at 17:17; Start 12/06/18 at 18:00 Dextrose (Dextrose 50%-Water Syringe) 12.5 gm PRN Q15MIN PRN IV SEE COMMENTS; Start 12/06/18 at 17:45 Dextrose 250 ml PRN Q15MIN PRN IV SEE COMMENTS; Start 12/06/18 at 17:45 Sodium Chloride 1,000 ml @ 1,000 mls/hr Q1H PRN IV hypotension; Start 12/07/18 at 08:20; Stop 12/07/18 at 14:19; Status DC Acetaminophen (Tylenol) 1,000 mg 1X PRN PRN PO MILD PAIN / TEMP; Start 12/07/18 at 08:30; Stop 12/08/18 at 08:29; Status DC Diphenhydramine HCl (Benadryl) 25 mg 1X PRN PRN IV ITCHING; Start 12/07/18 at 08:30; Stop 12/08/18 at 08:29; Status DC Diphenhydramine HCl (Benadryl) 25 mg 1X PRN PRN IV ITCHING; Start 12/07/18 at 08:30; Stop 12/08/18 at 08:29; Status DC Info (PHARMACY MONITORING -- do not chart) 1 each PRN DAILY PRN MC SEE COMMENTS; Start 12/07/18 at 08:30 Lidocaine/Sodium Bicarbonate (Buffered Lidocaine 1%) 3 ml STK-MED ONCE .ROUTE ; Start 12/07/18 at 12:26; Stop 12/07/18 at 12:26; Status DC Iodixanol (Visipaque 320) 50 ml STK-MED ONCE .ROUTE ; Start 12/07/18 at 12:26; Stop 12/07/18 at 12:26; Status DC Heparin Sodium/ Sodium Chloride 1,500 ml @ As Directed STK-MED ONCE .ROUTE ; Start 12/07/18 at 12:26; Stop 12/07/18 at 12:26; Status DC Iodixanol (Visipaque 320) 100 ml STK-MED ONCE .ROUTE ; Start 12/07/18 at 12:32; Stop 12/07/18 at 12:33; Status DC Propofol 20 ml @ As Directed STK-MED ONCE IV ; Start 12/07/18 at 13:30; Stop 12/07/18 at 13:30; Status DC Ondansetron HCl (Zofran) 4 mg STK-MED ONCE .ROUTE ; Start 12/07/18 at 13:30; Stop 12/07/18 at 13:30; Status DC Lidocaine HCl (Lidocaine Pf 2% Vial) 5 ml STK-MED ONCE .ROUTE ; Start 12/07/18 at 13:30; Stop 12/07/18 at 13:31; Status DC Sevoflurane (Ultane) 60 ml STK-MED ONCE IH ; Start 12/07/18 at 13:30; Stop at 13:31; Status DC Heparin Sodium (Porcine) (Heparin Sodium) 10,000 unit STK-MED ONCE .ROUTE ; Start 12/07/18 at 13:49; Stop 12/07/18 at 13:49; Status DC Dexamethasone Sodium Phosphate (Decadron) 4 mg STK-MED ONCE .ROUTE ; Start 12/07/18 at 13:51; Stop 12/07/18 at 13:52; Status DC Ephedrine Sulfate (Akovaz) 50 mg STK-MED ONCE .ROUTE ; Start 12/07/18 at 13:57; Stop 12/07/18 at 13:57; Status DC Heparin Sodium/ Sodium Chloride (HEPARIN for ARTERIAL LINE FLUSH) 2,000 unit 1X ONCE IART Last administered on 12/07/18at 14:46; Start 12/07/18 at 14:15; Stop 12/07/18 at 14:16; Status DC Heparin Sodium/ Sodium Chloride (HEPARIN for ARTERIAL LINE FLUSH) 1,000 unit 1X ONCE IART Last administered on 12/07/18at 14:46; Start 12/07/18 at 14:15; Stop 12/07/18 at 14:16; Status DC Lidocaine/Sodium Bicarbonate (Buffered Lidocaine 1%) 3 ml 1X ONCE IJ Last administered on 12/07/18at 14:46; Start 12/07/18 at 14:15; Stop 12/07/18 at 14:16; Status DC Iodixanol (Visipaque 320) 100 ml 1X ONCE IART Last administered on 12/07/18at 14:46; Start 12/07/18 at 14:15; Stop 12/07/18 at 14:16; Status DC Info (CONTRAST GIVEN -- Rx MONITORING) 1 each PRN DAILY PRN MC SEE COMMENTS; Start 12/07/18 at 14:15; Stop 12/09/18 at 14:14; Status DC Heparin Sodium (Porcine) (Heparin Sodium) 4,000 unit 1X ONCE IV Last administered on 12/07/18at 14:46; Start 12/07/18 at 14:30; Stop 12/07/18 at 14:31; Status DC Sevoflurane (Ultane) 60 ml STK-MED ONCE IH ; Start 12/07/18 at 14:44; Stop 12/07/18 at 14:44; Status DC Famotidine (Pepcid) 20 mg Q48H PO ; Start 12/08/18 at 21:00 Albuterol/ Ipratropium (Duoneb) 3 ml STK-MED ONCE .ROUTE ; Start 12/08/18 at 19:44; Stop 12/08/18 at 19:45; Status DC Sodium Chloride 1,000 ml @ 1,000 mls/hr Q1H PRN IV hypotension; Start 12/10/18 at 08:29; Stop 12/10/18 at 14:28 Diphenhydramine HCl (Benadryl) 25 mg 1X PRN PRN IV ITCHING; Start 12/10/18 at 08:30; Stop 12/11/18 at 08:29 Diphenhydramine HCl (Benadryl) 25 mg 1X PRN PRN IV ITCHING; Start 12/10/18 at 08:30; Stop 12/11/18 at 08:29 Sodium Chloride 1,000 ml @ 400 mls/hr Q2H30M PRN IV PATENCY; Start 12/10/18 at 08:29; Stop 12/10/18 at 20:28 Info (PHARMACY MONITORING -- do not chart) 1 each PRN DAILY PRN MC SEE COMMENTS; Start 12/10/18 at 08:30 Info (PHARMACY MONITORING -- do not chart) 1 each PRN DAILY PRN MC SEE COMMENTS; Start 12/10/18 at 08:30; Status UNV Active Scripts Active Tylenol (Acetaminophen) 325 Mg Capsule 650 Mg PO Q6-8HRS PRN [place] 5-325 Tablet (Acetaminophen/Hydrocodone Bitart) 1 Each Tablet 1 Tab PO BID 5 Days [place] 5-325 Tablet (Acetaminophen/Hydrocodone Bitart) 1 Each Tablet 1 Tab PO PRN Q6HRS PRN Alprazolam 0.5 Mg Tablet 0.5 Mg PO PRN TID PRN MDD 1 Zantac (Ranitidine Hcl) 300 Mg Tablet 1 Tab PO QHS Compazine (Prochlorperazine Maleate) 5 Mg Tablet 5 Mg PO PRN TID PRN 10 Days [Pantoprazole] 40 MG Tablet.dr 40 Mg PO DAILYAC 30 Days Reported Zoloft (Sertraline Hcl) 50 Mg Tablet 50 Mg PO DAILY Lisinopril 20 Mg Tablet 20 Mg PO DAILY Coreg (Carvedilol) 6.25 Mg Tablet 6.25 Mg PO [address]IA [address] Dr 6,000 Units Capsule (Lipase/Protease/Amylase) 1 Each Capsule. 1 Tab PO TID Proair Hfa (Albuterol Sulfate) 8.5 Gm Hfa.aer.ad 2 Puff INH BID PRN Levothyroxine Sodium 50 Mcg Tablet 1 Tab PO DAILY Clonidine Tts-2 (Clonidine) 1 Each Patch.tdwk 1 Patch TD WEEKLY Amlodipine Besylate 5 Mg Tablet 10 Mg PO DAILY Atorvastatin Calcium 40 Mg Tablet 40 Mg PO HS Latanoprost 2.5 Ml Drops 1 Drop EACHEYE HS Vitals/I & O Vital Sign - Last 24 Hours 12/09/18 12/09/18 12/09/18 12/09/18 11:00 15:00 17:17 19:00 Temp 98.9 97.8 98.3 98.9 97.8 98.3 Pulse 69 67 67 80 Resp 16 20 15 B/P (MAP) 159/48 (85) 146/51 (82) 146/51 150/45 (80) Pulse Ox 96 94 97 O2 Delivery Room Air Room Air Room Air 12/09/18 12/09/18 12/09/18 12/09/18 19:30 20:18 21:25 23:00 Temp 98.2 98.2 Pulse 82 Resp 14 15 16 B/P (MAP) 156/62 (93) Pulse Ox 94 94 93 O2 Delivery Room Air Room Air Room Air Room Air 12/09/18 12/10/18 12/10/18 12/10/18 23:16 00:13 02:08 03:35 Resp 15 16 16 16 Pulse Ox 94 94 94 94 O2 Delivery Room Air Room Air Room Air Room Air 12/10/18 12/10/18 12/10/18 12/10/18 04:42 05:20 07:00 08:29 Temp 97.9 97.9 Pulse 68 Resp 16 16 18 B/P (MAP) 145/62 (89) Pulse Ox 94 94 94 O2 Delivery Room Air Room Air Room Air Room Air Intake and Output 12/09/18 12/09/18 12/10/18 14:59 22:59 06:59 Output Total 0 ml Balance 0 ml PRABHAKAR MOSQUERA MD Dec 10, 2018 10:38
--- NOTE | 2018-12-10 10:40 | NUR ---
SW following pt. Pt has been accepted [facility] pending insurance auth. Auth pending. Pt will need to work with PT/OT this morning. D/w RN and Physician.
[2018-12-10] MEDS ORDERED: HYDR-2769 PO (10:41)
[2018-12-10] MEDS ORDERED: FOLI0.8T21 PO (10:41)
[2018-12-10] MEDS ORDERED: DARBEPOETIN ALFA IN POLYSORBAT SQ (10:41)
[2018-12-10] MEDS ORDERED: ALPR0.5T6 PO (10:41)
[2018-12-10] MEDS ORDERED: CEPH-264 PO (10:41)
--- NOTE | 2018-12-10 10:46 | PDOC3 ---
Discharge Summary Visit Information Date of Admission: Dec 01, 2018 Date of Discharge: Dec 10, 2018 Admitting Diagnosis Comment: s/p right BKA s/p Left AT angioplasty s/p RT BKA 12/05/18 with indwelling JEFFRYE drain Gangrene of right FOOT 3 toes of foot. 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 - RECENT needs local wound care Dyslipidemia malnutrition polysubstance abuse hx Diffuse moderate to advanced atherosclerotic plaque in the lower EXT arteries with moderate stenosis in the mid SFA, Right lower extremity angiography with subsequent angioplasty of the right superficial femoral artery and anterior tibial artery SEPTEMBER 2018 Final Diagnosis Problems Medical Problems: (1) Acute anemia Status: Acute (2) Anasarca Status: Acute (3) ESRD on dialysis Status: Chronic (4) Gangrene of toe of right foot Status: Acute Brief Hospital Course Allergies Allergies Coded Allergies Type Severity Reaction Last Updated Verified morphine Allergy Intermediate Itching 03/27/18 Yes Vital Signs Vital Signs Date Time Temp Pulse Resp B/P (MAP) Pulse Ox O2 Delivery O2 Flow Rate FiO2 12/10/18 08:29 Room Air 12/10/18 07:00 97.9 68 18 145/62 (89) 94 97.9 Lab Results Laboratory Tests Test 12/08/18 11:43 12/08/18 16:51 12/08/18 20:29 12/09/18 07:58 Glucose (Fingerstick) 192 mg/dL (70-99) 243 mg/dL (70-99) 217 mg/dL (70-99) 141 mg/dL (70-99) Test 12/09/18 09:56 12/09/18 12:00 12/09/18 16:45 12/10/18 07:14 White Blood Count 10.0 x10^3/uL (4.0-11.0) Red Blood Count 3.25 x10^6/uL (3.50-5.40) Hemoglobin 9.8 g/dL (12.0-15.5) Hematocrit 29.1 % (36.0-47.0) Mean Corpuscular Volume 90 fL (79-100) Mean Corpuscular Hemoglobin 30 pg (25-35) Mean Corpuscular Hemoglobin Concent 34 g/dL (31-37) Red Cell Distribution Width 16.4 % (11.5-14.5) Platelet Count 263 x10^3/uL (140-400) Neutrophils (%) (Auto) 66 % (31-73) Lymphocytes (%) (Auto) 16 % (24-48) Monocytes (%) (Auto) 17 % (0-9) Eosinophils (%) (Auto) 1 % (0-3) Basophils (%) (Auto) 1 % (0-3) Neutrophils # (Auto) 6.6 x10^3/uL (1.8-7.7) Lymphocytes # (Auto) 1.6 x10^3/uL (1.0-4.8) Monocytes # (Auto) 1.6 x10^3/uL (0.0-1.1) Eosinophils # (Auto) 0.0 x10^3/uL (0.0-0.7) Basophils # (Auto) 0.1 x10^3/uL (0.0-0.2) Sodium Level 138 mmol/L (136-145) Potassium Level 5.2 mmol/L (3.5-5.1) Chloride Level 97 mmol/L (98-107) Carbon Dioxide Level 35 mmol/L (21-32) Anion Gap 6 (6-14) Blood Urea Nitrogen 39 mg/dL (7-20) Creatinine 6.1 mg/dL (0.6-1.0) Estimated GFR (Cockcroft-Gault) 8.6 Glucose Level 157 mg/dL (70-99) Calcium Level 8.5 mg/dL (8.5-10.1) Glucose (Fingerstick) 137 mg/dL (70-99) 167 mg/dL (70-99) 146 mg/dL (70-99) Laboratory Tests Test 12/09/18 12:00 12/09/18 16:45 12/10/18 07:14 Glucose (Fingerstick) 137 mg/dL (70-99) 167 mg/dL (70-99) 146 mg/dL (70-99) Brief Hospital Course Ms. Smith is a 58 old AA female, known vasculopath, comes in needing a rt AKA finally by vasc sx, but that left leg by run off still is a bad circulation, She is on empiric abx but wound/stump looks great here, no wound actually, She had a JEFFREY drain on that other leg which she may manipulate and we have encouraged her several times not to do it, Finally agreed to go to [facility] and be DNR, THis is the most cooperative and calm she has been - she can be hostile to people likely sec to her multiple med issues, but now everything is sinking in and she is afraid to lose the other leg COnsults: Vasc sx, proc; run off, BKA There was no ID consult this admission for a change DNR Discharge Information Condition at Discharge: Improved, Stable Disposition/Orders: Other (snu) Scheduled Amlodipine Besylate (Amlodipine Besylate) 5 Mg Tablet, 10 MG PO DAILY for blood pressure, (Reported) Entered as Reported by: JENNIE SMITH on 12/05/17809 Last Action: Continued on 12/01/181925 by SANGEETHA MUELLER MD Atorvastatin Calcium (Atorvastatin Calcium) 40 Mg Tablet, 40 MG PO HS for cholesterol, (Reported) Entered as Reported by: JENNIE SMITH on 12/05/17 0810 Last Action: Continued on 12/01/181925 by SANGEETHA MUELLER MD Carvedilol (Coreg ) 6.25 Mg Tablet, 6.25 MG PO BIDWMEALS for CARDIAC, (Reported) Entered as Reported by: VAL MONTANA on 05/08/18 1437 Last Action: Continued on 12/01/181925 by SANGEETHA MUELLER MD Cephalexin (Keflex) 500 Mg Capsule, 1 CAP PO TID for prohylcatic, post bka, #21 Prescribed by: PRABHAKAR MOSQUERA on 12/10/18 1041 Clonidine (Clonidine Tts-2 ) 1 Each Patch.tdwk, 1 PATCH TD WEEKLY for blood pressure, (Reported) Entered as Reported by: VIKI LAI on 03/22/18 1727 Last Action: Continued on 12/01/181925 by SANGEETHA MUELLER MD Folic Acid/Vitamin B Comp W-C (Pinky-Shreya Tablet) 0.8 Mg Tablet, 1 TAB PO DAILY for esrd, #30 Prescribed by: PRABHAKAR MOSQUERA on 12/10/18 1041 Latanoprost (Latanoprost) 2.5 Ml Drops, 1 DROP EACHEYE HS, (Reported) Entered as Reported by: ATTILA HAMMOND on 09/24/17 1649 Last Action: Continued on 12/01/181925 by SANGEETHA MUELLER MD Levothyroxine Sodium (Levothyroxine Sodium) 50 Mcg Tablet, 1 TAB PO DAILY for thyroid, #30 Ref 5 (Reported) Entered as Reported by: VIKI LAI on 03/22/18 1727 Last Action: Continued on 12/01/181925 by SANGEETHA MUELLER MD Lipase/Protease/Amylase (Creon Dr 6,000 Units Capsule) 1 Each Capsule., 1 TAB PO TID for digestion, (Reported) Entered as Reported by: CAROL CHAN on 04/23/18 1236 Last Action: Converted on 12/01/181925 by SANGEETHA MUELLER MD Lisinopril (Lisinopril) 20 Mg Tablet, 20 MG PO DAILY for FOR HYPERTENSION, Ref 0 (Reported) Entered as Reported by: LAUREN REAVES on 05/27/1849 Last Action: Continued on 12/01/181925 by SANGEETHA MUELLER MD Ranitidine Hcl (Zantac) 300 Mg Tablet, 1 TAB PO QHS for reflux, #90 Ref 3 Prescribed by: DANIELA ALMAZAN D.O. on 08/29/182155 Last Action: Converted on 12/01/181925 by SANGEETHA MUELLER MD Sertraline Hcl (Zoloft) 50 Mg Tablet, 50 MG PO DAILY for ANTI-DEPRESSANT, Ref 0 (Reported) Entered as Reported by: LAUREN REAVES on 05/27/18748 Last Action: Continued on 12/01/181925 by SANGEETHA MUELLER MD [Darbepoetin Jarrett In Polysorbat] 60 MCG/0.3 ML DISP.SYRIN, 60 MCG SQ WEEKLYHS for esrd for 30 Days Prescribed by: PRABHAKAR MOSQUERA on 12/10/18 1041 [Pantoprazole] 40 MG TABLET., 40 MG PO DAILYAC for GERD for 30 Days, #30 Ref 2 Prescribed by: FELI SHAH MD on 03/07/18 1359 Last Action: Converted on 12/01/181925 by SANGEETHA MUELLER MD Scheduled PRN Acetaminophen (Tylenol) 325 Mg Capsule, 650 MG PO Q6-8HRS PRN for PAIN, #20 Prescribed by: KIMBERLY DONOHUE MD on 11/14/182111 Last Action: Converted on 12/01/181925 by SANGEETHA MUELLER MD Albuterol Sulfate (Proair Hfa) 8.5 Gm Hfa.aer.ad, 2 PUFF INH BID PRN for SHORTNESS OF BREATH, (Reported) Entered as Reported by: VIKI LAI on 03/22/18 1727 Last Action: Continued on 12/01/181925 by SANGEETHA MUELLER MD Alprazolam (Alprazolam) 0.5 Mg Tablet, 0.5 MG PO PRN TID PRN for ANXIETY / AGITATION MDD 1, #30 Prescribed by: PRABHAKAR MOSQUERA on 12/10/18 1041 Hydrocodone Bit/Acetaminophen (Hydrocodone-Apap 10-325 ) 1 Tab Tablet, 1 TAB PO PRN Q4HRS PRN for MODERATE TO SEVERE PAIN, #30 Prescribed by: PRABHAKAR MOSQUERA on 12/10/18 1041 Prochlorperazine Maleate (Compazine) 5 Mg Tablet, 5 MG PO PRN TID PRN for NAUSEA for 10 Days, #30 Prescribed by: FELI SHAH MD on 08/26/18 1158 Last Action: Continued on 12/01/181925 by SANGEETHA MUELLER MD Discontinued Medications Hydrocodone/Apap 5-325 ([place] 5-325 Tablet) 1 Each Tablet, 1 TAB PO PRN Q6HRS PRN for PAIN, #30 Ref 0 Prescribed by: PRABHAKAR MOSQUERA on 10/12/18921 Last Action: Continued on 12/01/181925 by SANGEETHA MUELLER MD Hydrocodone/Apap 5-325 ([place] 5-325 Tablet) 1 Each Tablet, 1 TAB PO BID for 5 Days, #10 Prescribed by: ANDREA RIBEIRO PA-C on 11/05/18953 Last Action: Continued on 12/01/181925 by MD DEMETRI ALMAZAN CHERRIE Y MD Dec 10, 2018 10:45
[2018-12-10] MEDS ORDERED: ALTEPLASE 2MG VIAL 10 MG in IV NORMAL SALINE 50ML 50 ML IV ONE (13:30)
--- NOTE | 2018-12-10 14:55 | PDOC ---
Provider Note Provider Note AF VSS awake and alert right BKA incision intact with no erythema, small amount of bloody drainage, no swelling left 5th toe open amputation wound is clean however tissue is pale and no pink granulation tissue at this point s/p right BKA and left open toe amputation with recent angiograms and angioplasty of the left leg. - will change to veraflow vac dressing and see if this improves healing - continue antibiotics - may heel touch with the left foot NATE JENSEN MD Dec 10, 2018 14:55
[2018-12-10 15:00] VITALS: BP 158/69
--- NOTE | 2018-12-10 15:20 | NUR ---
Wound Care Pt seen for wound care follow up and wound vac change, Dr. Villeda at bedside for assessment. R BKA site cleaned, incision line well approximated, sutures intact, area redressed with ABD and kerlix. Dr. Villeda removed L foot vac dressing, wound bed pale and dusky, Dr. Villeda ordered for Veraflo to wound, as next step would be amputation if area does not heal. Wound cleaned, measured and photographed, pt yelling obscenities and stating "don't stick that stick into my fucking foot". Pt calling out for nurse multiple times during procedure, pt had already been given pain medications prior to start. Pt attempting to get out of bed, stating she'll go home and get her own Morphine, pt yelling at new RN who was rounding with wound care, stating, "don't you fucking touch me". This RN able to calm pt enough to place vac, skin prep and ostomy ring to periwound, pt refused for vac foam to be packed into tunnel, but able to place 1 piece into wound bed. Vac with strong seal at -125 mmHg, with Veraflo settings of 8mL of NS instilling every 4 hours for 5 minute dwell time, pt tolerated. Will f/u with pt on Monday for next vac change, bed alarm set, bed in lowest position, call light in reach. Addendum: 12/10/18 at 1647 by Bria Brooks RN Pt has not received Rigid rooke boot for stump, or post-op shoe for L foot. Spoke with MAGALY Camargo who stated Tu was bringing Rooke today. Called [facility] for post-op shoe.
--- NOTE | 2018-12-10 15:29 | NUR ---
SW phoned PAT team for assessment and eval after pt verbalized 'if I had a pistol I would have used it already'. Pt was pleasant this morning in HD and was agreeable to work with PT/OT during conversation with SWer. PAT team will see pt today. D/W RN.
--- NOTE | 2018-12-10 16:00 | NUR ---
Around 1430 pt. asked for pain medication. This nurse informed pt. that she could have her pain pill around 1505. Pt. stated that she wanted the "shot in the IV. That pill doesn't help nothing." This nurse explained to pt. that she was given the IV pain medication a little before 1400 and that she could not have it again until a little before 1600. At this time the pt. got upset and stated that I was lying to her. Pt. stated that she was going to get out of here. "I can get better stuff out on the streets." This nurse explained to pt. that leaving would put her at risk for infection and put her safety at risk as well. Pt. stated "I don't care if I get an infection. I want to . Lord take me from here." This nurse stated "don't do that miss Burgess. We want to help you. We want to help you get better." Pt. stated "if I had a pistol I would have used it." This nurse informed the Charge nurse and MD. MD stated to place pt. in 1:1 observation and consult PAT team. Orders received and placed. Nursing supervisor type bar and segment notified. 1:1 observation initiated. This nurse sitting 1:1 with pt. Will continue to monitor.
--- NOTE | 2018-12-10 17:29 | RAD ---
Nonvascular right extremity ultrasound History: Right groin lump Comparison: None. Findings: Multiple grayscale and color images of the right groin region are submitted. No pseudoaneurysm is demonstrated. There is a lymph node of the right groin about 4.7 x 1 x 3 cm in size. Impression: 1. There is nonspecific right groin lymph node. Electronically signed by: Jeffrey Jackson MD (12/10/2018 5:26 PM) [id number]
[2018-12-10 19:00] VITALS: BP 140/36
[2018-12-10] MEDS: cefTRIAXone IV Push 1 GM VIAL. IVP SCH (20:20)
[2018-12-10] MEDS: LATANOPROST 0.005% OPHTH SOLUTION 2.5ML BOTTLE. OU SCH (20:26)
--- NOTE | 2018-12-10 20:50 | NUR ---
notified about results of right groin US. No new orders at this time. Will continue to monitor.
[2018-12-10] MEDS: ATORVASTATIN CALCIUM 40 MG TABLET. PO SCH (21:00)
[2018-12-10] MEDS: FAMOTIDINE 20 MG TABLET. PO SCH (21:00)
[2018-12-10 23:00] VITALS: BP 145/55
[2018-12-11] MEDS: fentaNYL PF VIAL 100 MCG/2 ML VIAL IV PRN ×8 (00:53→16:56)
[2018-12-11] MEDS: ALPRAZolam 0.5 MG TABLET PO PRN (02:55)
[2018-12-11 07:00] VITALS: BP 152/45
[2018-12-11] MEDS: amLODIPine BESYLATE 5 MG TABLET PO SCH (08:06)
[2018-12-11] MEDS: LISINOPRIL 20 MG TABLET PO SCH (08:06)
[2018-12-11] MEDS: LEVOTHYROXINE 50 MCG TABLET PO SCH (08:06)
[2018-12-11] MEDS: FOLIC/VIT B COMP W-C (RENAL) TABLET. PO SCH (08:06)
[2018-12-11] MEDS: LACTOBACILLUS RHAMNOSUS GG 1 CAPSULE. PO SCH (08:07)
[2018-12-11] MEDS: CARVEDILOL 6.25 MG TABLET. PO SCH ×2 (08:07→16:55)
[2018-12-11] MEDS: SERTRALINE 50 MG TABLET. PO SCH (08:07)
[2018-12-11] MEDS: HYDROcodone/APAP 10/325 1 TAB TABLET PO PRN ×3 (08:07→14:03)
[2018-12-11] MEDS: INSULIN LISPRO 300 UNITS/3 ML VIAL. SQ SCH ×3 (08:11→17:02)
--- NOTE | 2018-12-11 09:04 | NUR ---
SW following pt. CM spoke with pt's insurance CM regarding request for rehab approval- reported their computer system is not functioning and they have not reviewed pt's clinicals. Spoke with RN, pt is agreeable to work with PT/OT today and is not on 1:1 observation. Auth for rehab pending.
--- NOTE | 2018-12-11 10:25 | PDOC ---
PROGRESS NOTES Chief Complaint Chief Complaint s/p RT BKA 12/05/18 with indwelling JEFFREY drain s/p right BKA s/p Left AT angioplasty Gangrene of right FOOT 3 toes of foot. 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 - RECENT needs local wound care Dyslipidemia malnutrition polysubstance abuse hx Diffuse moderate to advanced atherosclerotic plaque in the lower EXT arteries with moderate stenosis in the mid SFA, Right lower extremity angiography with subsequent angioplasty of the right superficial femoral artery and anterior tibial artery SEPTEMBER 2018 suicide thought- off sitter MAjor depression on zoloft History of Present Illness History of Present Illness some SI, sitter off Waiting for ese... she is working with PT today Insurance auth in process she is already on zoloft PLAN: Still ok to dc today to inpt rehab DNR COnt zoloft and other meds, xanax pain meds etc - all on chart Vitals Vitals Vital Signs Date Time Temp Pulse Resp B/P (MAP) Pulse Ox O2 Delivery O2 Flow Rate FiO2 12/11/18 08:12 Room Air 12/11/18 08:12 70 152/45 12/11/18 07:00 97.8 18 95 97.8 Physical Exam General: Alert, Oriented X3, Cooperative, mild distress Heart: Regular rate, Normal S1, Normal S2, No murmurs Lungs: Clear Abdomen: Normal bowel sounds, Soft, No hepatosplenomegaly Extremities: Other (ischemic limb) Skin: No rashes, Other Labs LABS Laboratory Tests Test 12/10/18 17:24 12/11/18 07:28 Glucose (Fingerstick) 200 mg/dL (70-99) 218 mg/dL (70-99) Review of Systems Review of Systems depressed, pain xcontrolled, rest 14 pt limited, she is hard to focus - always complaning of pain everywhere Assessment and Plan Assessmemt and Plan Problems Medical Problems: (1) Acute anemia Status: Acute (2) Anasarca Status: Acute (3) ESRD on dialysis Status: Chronic (4) Gangrene of toe of right foot Status: Acute Comment Review of Relevant I have reviewed the following items pamela (where applicable) has been applied. Labs Laboratory Tests Test 12/09/18 12:00 12/09/18 16:45 12/10/18 07:14 12/10/18 17:24 Glucose (Fingerstick) 137 mg/dL (70-99) 167 mg/dL (70-99) 146 mg/dL (70-99) 200 mg/dL (70-99) Test 12/11/18 07:28 Glucose (Fingerstick) 218 mg/dL (70-99) Laboratory Tests Test 12/10/18 17:24 12/11/18 07:28 Glucose (Fingerstick) 200 mg/dL (70-99) 218 mg/dL (70-99) Microbiology 12/01/18 Blood Culture - Final, Complete NO GROWTH AFTER 5 DAYS Medications Current Medications Fentanyl Citrate (Fentanyl 2ml Vial) 50 mcg 1X STAT IV Last administered on 12/01/18at 15:29; Start 12/01/18 at 15:21; Stop 12/01/18 at 15:23; Status DC Fentanyl Citrate (Fentanyl 2ml Vial) 50 mcg 1X STAT IV Last administered on 12/01/18at 16:24; Start 12/01/18 at 16:09; Stop 12/01/18 at 16:11; Status DC Ondansetron HCl (Zofran) 4 mg PRN Q8HRS PRN IV NAUSEA/VOMITING; Start 12/01/18 at 16:30; Stop 12/02/18 at 16:29; Status DC Fentanyl Citrate (Fentanyl 2ml Vial) 50 mcg PRN Q1HR PRN IV PAIN Last administered on 12/02/18at 07:33; Start 12/01/18 at 16:30; Stop 12/02/18 at 08:48; Status DC Pharmacy Consult (C.diff Med Screen By Rx) 1 each 1X ONCE MC ; Start 12/01/18 at 18:15; Stop 12/01/18 at 18:16; Status Cancel Albuterol Sulfate (Ventolin Neb Soln) 2.5 mg PRN Q4HRS PRN NEB SHORTNESS OF BREATH; Start 12/01/18 at 19:30 Alprazolam (Xanax) 0.5 mg PRN TID PRN PO ANXIETY / AGITATION Last administered on 12/11/18at 02:55; Start 12/01/18 at 19:30 Amlodipine Besylate (Norvasc) 10 mg DAILY PO Last administered on 12/11/18at 08:12; Start 12/02/18 at 09:00 Atorvastatin Calcium (Lipitor) 40 mg HS PO Last administered on 12/09/18 20:18; Start 12/01/18 at 21:00 Carvedilol (Coreg) 6.25 mg BIDWMEALS PO Last administered on 12/11/18 08:12; Start 12/02/18 at 08:00 Clonidine HCl (Catapres Tts-2) 1 patch WEEKLY TD Last administered on 12/08/18 08:38; Start 12/08/18 at 09:00 Acetaminophen/ Hydrocodone Bitart (Lortab 5/325) 1 tab BID PO ; Start 12/01/18 at 21:00; Status Cancel Acetaminophen/ Hydrocodone Bitart (Lortab 5/325) 1 tab PRN Q6HRS PRN PO PAIN Last administered on 12/02/18 04:43; Start 12/01/18 at 19:30; Stop 12/02/18 at 08:48; Status DC Latanoprost (Xalatan) 1 drop HS OU Last administered on 12/10/18 20:26; Start 12/01/18 at 21:00 Levothyroxine Sodium (Synthroid) 50 mcg DAILY PO Last administered on 12/11/18 08:12; Start 12/02/18 at 09:00 Lisinopril (Prinivil) 20 mg DAILY PO Last administered on 12/11/18 08:12; Start 12/02/18 at 09:00 Prochlorperazine Maleate (Compazine) 5 mg PRN TID PRN PO NAUSEA Last administered on 12/03/18 19:56; Start 12/01/18 at 19:30 Sertraline HCl (Zoloft) 50 mg DAILY PO Last administered on 12/11/18 08:12; Start 12/02/18 at 09:00 Acetaminophen (Tylenol) 650 mg PRN Q6HRS PRN PO MILD PAIN / TEMP; Start 12/01/18 at 19:45 Amylase/Lipase/ Protease (Zenpep 5,000) 1 cap TIDWMEALS PO Last administered on 12/11/18 08:12; Start 12/02/18 at 08:00 Famotidine (Pepcid) 20 mg HS PO Last administered on 9/13/19at 20:09; Start 12/01/18 at 21:00; Stop 12/08/18 at 17:21; Status DC Non-Formulary Medication ([Pantoprazole] ) 40 mg DAILYAC PO ; Start 12/02/18 at 07:30; Status UNV Ceftriaxone Sodium (Rocephin) 1 gm Q24H IVP Last administered on 12/10/18at 20:20; Start 12/01/18 at 20:00 Vitamin B Complex/ Vitamin C (Pinky-Hsreya) 1 tab DAILY PO Last administered on 12/11/18at 08:12; Start 12/02/18 at 09:00 Fentanyl Citrate (Fentanyl 2ml Vial) 75 mcg PRN Q2HR PRN IV PAIN Last administered on 12/03/18at 07:36; Start 12/02/18 at 09:00; Stop 12/03/18 at 08:59; Status DC Acetaminophen/ Hydrocodone Bitart (Lortab 5/325) 2 tab PRN Q6HRS PRN PO MODERATE - SEVERE PAIN Last administered on 12/02/18at 18:55; Start 12/02/18 at 09:00; Stop 12/03/18 at 10:41; Status DC Magnesium Sulfate 50 ml @ 25 mls/hr PRN DAILY PRN IV for Mag < 1.7 on am labs; Start 12/02/18 at 09:30 Darbepoetin Jarrett (ARANESP for DIALYSIS PTS) 60 mcg WEEKLYHS SQ Last administered on 12/09/18at 20:18; Start 12/02/18 at 21:00 Lactobacillus Rhamnosus (Culturelle) 1 cap BID PO Last administered on 12/11/18at 08:12; Start 12/02/18 at 21:00 Fentanyl Citrate (Fentanyl 2ml Vial) 100 mcg PRN Q2HR PRN IV PAIN Last administered on 12/11/18at 07:54; Start 12/03/18 at 09:45 Fentanyl Citrate (Fentanyl 2ml Vial) 100 mcg STK-MED ONCE .ROUTE ; Start 12/03/18 at 09:45; Stop 12/03/18 at 09:45; Status DC Sodium Chloride 1,000 ml @ 1,000 mls/hr Q1H PRN IV hypotension; Start 12/03/18 at 10:12; Stop 12/03/18 at 16:11; Status DC Albumin Human 200 ml @ 200 mls/hr 1X PRN PRN IV Hypotension; Start 12/03/18 at 10:15; Stop 12/03/18 at 16:14; Status DC Sodium Chloride (Normal Saline Flush) 10 ml 1X PRN PRN IV AP catheter pack; Start 12/03/18 at 10:15; Stop 12/04/18 at 10:14; Status DC Sodium Chloride (Normal Saline Flush) 10 ml 1X PRN PRN IV BRIM POUNCING MACHINE OPERATOR catheter pack; Start 12/03/18 at 10:15; Stop 12/04/18 at 10:14; Status DC Sodium Chloride 1,000 ml @ 400 mls/hr Q2H30M PRN IV PATENCY; Start 12/03/18 at 10:12; Stop 12/03/18 at 22:11; Status DC Info (PHARMACY MONITORING -- do not chart) 1 each PRN DAILY PRN MC SEE COMMENTS; Start 12/03/18 at 10:15; Status UNV Info (PHARMACY MONITORING -- do not chart) 1 each PRN DAILY PRN MC SEE COMMENTS; Start 12/03/18 at 10:15; Stop 12/07/18 at 19:19; Status DC Acetaminophen/ Hydrocodone Bitart (Lortab 10/325) 1 tab PRN Q4HRS PRN PO MODERATE TO SEVERE PAIN Last administered on 12/11/18at 08:12; Start 12/03/18 at 10:45 Ondansetron HCl (Zofran) 4 mg PRN Q6HRS PRN IV NAUSEA/VOMITING; Start 12/05/18 at 07:00; Stop 12/05/18 at 07:01; Status DC Fentanyl Citrate (Fentanyl 2ml Vial) 25 mcg PRN Q5MIN PRN IV MILD PAIN 1-3; Start 12/05/18 at 07:00; Stop 12/05/18 at 20:00; Status DC Fentanyl Citrate (Fentanyl 2ml Vial) 50 mcg PRN Q5MIN PRN IV MODERATE TO SEVERE PAIN Last administered on 12/05/18at 14:59; Start 12/05/18 at 07:00; Stop 12/05/18 at 20:00; Status DC Ringer's Solution 1,000 ml @ 30 mls/hr Q24H IV ; Start 12/05/18 at 07:00; Stop 12/05/18 at 11:44; Status DC Lidocaine HCl (Xylocaine-Mpf 1% 2ml Vial) 2 ml PRN 1X PRN ID PRIOR TO IV START; Start 12/05/18 at 07:00; Stop 12/05/18 at 20:00; Status DC Prochlorperazine Edisylate (Compazine) 5 mg PACU PRN PRN IV NAUSEA, MRX1 Last administered on 12/05/18at 14:59; Start 12/05/18 at 07:00; Stop 12/05/18 at 20:00; Status DC Bacitracin 97925 unit/Sodium Chloride 500 ml @ 500 mls/hr 1X ONCE IRR Last administered on 12/05/18at 12:29; Start 12/05/18 at 06:00; Stop 12/05/18 at 06:59; Status DC Sodium Chloride 1,000 ml @ 1,000 mls/hr Q1H PRN IV hypotension; Start 12/05/18 at 07:31; Stop 12/05/18 at 13:30; Status DC Diphenhydramine HCl (Benadryl) 25 mg 1X PRN PRN IV ITCHING; Start 12/05/18 at 07:45; Stop 12/06/18 at 07:44; Status DC Diphenhydramine HCl (Benadryl) 25 mg 1X PRN PRN IV ITCHING; Start 12/05/18 at 07:45; Stop 12/06/18 at 07:44; Status DC Sodium Chloride 1,000 ml @ 400 mls/hr Q2H30M PRN IV PATENCY; Start 12/05/18 at 07:31; Stop 12/05/18 at 19:30; Status DC Info (PHARMACY MONITORING -- do not chart) 1 each PRN DAILY PRN MC SEE COMMENTS; Start 12/05/18 at 07:45; Stop 12/05/18 at 07:35; Status DC Info (PHARMACY MONITORING -- do not chart) 1 each PRN DAILY PRN MC SEE COMMENTS; Start 12/05/18 at 07:45; Status UNV Ondansetron HCl (Zofran) 4 mg 1X STAT IV Last administered on 12/05/18at 09:45; Start 12/05/18 at 09:34; Stop 12/05/18 at 09:35; Status DC Sodium Chloride 1,000 ml @ 30 mls/hr Q24H IV Last administered on 12/07/18at 12:24; Start 12/05/18 at 11:45; Stop 12/08/18 at 10:36; Status DC Propofol 20 ml @ As Directed STK-MED ONCE IV ; Start 12/05/18 at 12:06; Stop 12/05/18 at 12:06; Status DC Lidocaine HCl (Lidocaine Pf 2% Vial) 5 ml STK-MED ONCE .ROUTE ; Start 12/05/18 at 12:06; Stop 12/05/18 at 12:06; Status DC Fentanyl Citrate (Fentanyl 2ml Vial) 100 mcg STK-MED ONCE .ROUTE ; Start 02/12 at 12:06; Stop 12/05/18 at 12:06; Status DC Cefazolin Sodium/ Dextrose 50 ml @ 100 mls/hr 1X PREOP PRN IV PRIOR TO PROC EDURE Last administered on 12/05/18at 13:37; Start 12/05/18 at 13:00; Stop 12/06/18 at 12:59; Status DC Dexamethasone Sodium Phosphate (Decadron) 4 mg STK-MED ONCE .ROUTE ; Start 12/05/18 at 13:16; Stop 12/05/18 at 13:16; Status DC Ondansetron HCl (Zofran) 4 mg STK-MED ONCE .ROUTE ; Start 12/05/18 at 13:16; Stop 12/05/18 at 13:16; Status DC Sevoflurane (Ultane) 60 ml STK-MED ONCE IH ; Start 12/05/18 at 13:16; Stop 12/05/18 at 13:16; Status DC Hydralazine HCl (Apresoline Inj) 20 mg STK-MED ONCE .ROUTE ; Start 12/05/18 at 13:28; Stop 12/05/18 at 13:28; Status DC Ephedrine Sulfate (ePHEDrine PF IN SALINE SYRINGE) 50 mg STK-MED ONCE IV ; Start 12/05/18 at 14:09; Stop 12/05/18 at 14:09; Status DC Hydromorphone HCl (Dilaudid) 0.5 mg PRN Q10MIN PRN IV pain Last administered on 12/05/18at 15:56; Start 12/05/18 at 15:00; Stop 12/05/18 at 20:00; Status DC Ondansetron HCl (Zofran) 4 mg PRN Q6HRS PRN IV NAUSEA/VOMITING; Start 12/07/18 at 07:00; Stop 12/08/18 at 06:59; Status DC Fentanyl Citrate (Fentanyl 2ml Vial) 25 mcg PRN Q5MIN PRN IV MILD PAIN 1-3; Start 12/07/18 at 07:00; Stop 12/08/18 at 06:59; Status DC Fentanyl Citrate (Fentanyl 2ml Vial) 50 mcg PRN Q5MIN PRN IV MODERATE TO SEVERE PAIN; Start 12/07/18 at 07:00; Stop 12/08/18 at 06:59; Status DC Ringer's Solution 1,000 ml @ 30 mls/hr Q24H IV ; Start 12/07/18 at 07:00; Stop 12/07/18 at 18:59; Status DC Lidocaine HCl (Xylocaine-Mpf 1% 2ml Vial) 2 ml PRN 1X PRN ID PRIOR TO IV START; Start 12/07/18 at 07:00; Stop 12/08/18 at 06:59; Status DC Prochlorperazine Edisylate (Compazine) 5 mg PACU PRN PRN IV NAUSEA, MRX1; Start 12/07/18 at 07:00; Stop 12/08/18 at 06:59; Status DC Docusate Sodium (Colace) 100 mg PRN DAILY PRN PO STOOL SOFTENER; Start 12/06/18 at 11:15 Magnesium Hydroxide (Milk Of Magnesia) 2,400 mg PRN DAILY PRN PO CONSTIPATION, 2ND CHOICE; Start 12/06/18 at 11:15; Stop 12/11/18 at 06:25; Status DC Polyethylene Glycol (miraLAX PACKET) 17 gm PRN DAILY PRN PO CONSTIPATION, 1ST CHOICE; Start 12/06/18 at 11:15 Insulin Human Lispro (HumaLOG) 0-5 UNITS TIDWMEALS SQ Last administered on 12/11/18at 08:12; Start 12/06/18 at 18:00 Dextrose (Dextrose 50%-Water Syringe) 12.5 gm PRN Q15MIN PRN IV SEE COMMENTS; Start 12/06/18 at 17:45 Dextrose 250 ml PRN Q15MIN PRN IV SEE COMMENTS; Start 12/06/18 at 17:45 Sodium Chloride 1,000 ml @ 1,000 mls/hr Q1H PRN IV hypotension; Start 12/07/18 at 08:20; Stop 12/07/18 at 14:19; Status DC Acetaminophen (Tylenol) 1,000 mg 1X PRN PRN PO MILD PAIN / TEMP; Start 12/07/18 at 08:30; Stop 12/08/18 at 08:29; Status DC Diphenhydramine HCl (Benadryl) 25 mg 1X PRN PRN IV ITCHING; Start 12/07/18 at 08:30; Stop 12/08/18 at 08:29; Status DC Diphenhydramine HCl (Benadryl) 25 mg 1X PRN PRN IV ITCHING; Start 12/07/18 at 08:30; Stop 12/08/18 at 08:29; Status DC Info (PHARMACY MONITORING -- do not chart) 1 each PRN DAILY PRN MC SEE COMMENTS; Start 12/07/18 at 08:30 Lidocaine/Sodium Bicarbonate (Buffered Lidocaine 1%) 3 ml STK-MED ONCE .ROUTE ; Start 12/07/18 at 12:26; Stop 12/07/18 at 12:26; Status DC Iodixanol (Visipaque 320) 50 ml STK-MED ONCE .ROUTE ; Start 12/07/18 at 12:26; Stop 12/07/18 at 12:26; Status DC Heparin Sodium/ Sodium Chloride 1,500 ml @ As Directed STK-MED ONCE .ROUTE ; Start 12/07/18 at 12:26; Stop 12/07/18 at 12:26; Status DC Iodixanol (Visipaque 320) 100 ml STK-MED ONCE .ROUTE ; Start 12/07/18 at 12:32; Stop 12/07/18 at 12:33; Status DC Propofol 20 ml @ As Directed STK-MED ONCE IV ; Start 12/07/18 at 13:30; Stop 12/07/18 at 13:30; Status DC Ondansetron HCl (Zofran) 4 mg STK-MED ONCE .ROUTE ; Start 12/07/18 at 13:30; Stop 12/07/18 at 13:30; Status DC Lidocaine HCl (Lidocaine Pf 2% Vial) 5 ml STK-MED ONCE .ROUTE ; Start 12/07/18 at 13:30; Stop 12/07/18 at 13:31; Status DC Sevoflurane (Ultane) 60 ml STK-MED ONCE IH ; Start 12/07/18 at 13:30; Stop 12/07/18 at 13:31; Status DC Heparin Sodium (Porcine) (Heparin Sodium) 10,000 unit STK-MED ONCE .ROUTE ; Start 12/07/18 at 13:49; Stop 12/07/18 at 13:49; Status DC Dexamethasone Sodium Phosphate (Decadron) 4 mg STK-MED ONCE .ROUTE ; Start 12/07/18 at 13:51; Stop 12/07/18 at 13:52; Status DC Ephedrine Sulfate (Akovaz) 50 mg STK-MED ONCE .ROUTE ; Start 12/07/18 at 13:57; Stop 12/07/18 at 13:57; Status DC Heparin Sodium/ Sodium Chloride (HEPARIN for ARTERIAL LINE FLUSH) 2,000 unit 1X ONCE IART Last administered on 12/07/18at 14:46; Start 12/07/18 at 14:15; Stop 12/07/18 at 14:16; Status DC Heparin Sodium/ Sodium Chloride (HEPARIN for ARTERIAL LINE FLUSH) 1,000 unit 1X ONCE IART Last administered on 12/07/18at 14:46; Start 12/07/18 at 14:15; Stop 12/07/18 at 14:16; Status DC Lidocaine/Sodium Bicarbonate (Buffered Lidocaine 1%) 3 ml 1X ONCE IJ Last administered on 12/07/18at 14:46; Start 12/07/18 at 14:15; Stop 12/07/18 at 14:16; Status DC Iodixanol (Visipaque 320) 100 ml 1X ONCE IART Last administered on 12/07/18at 14:46; Start 12/07/18 at 14:15; Stop 12/07/18 at 14:16; Status DC Info (CONTRAST GIVEN -- Rx MONITORING) 1 each PRN DAILY PRN MC SEE COMMENTS; Start 12/07/18 at 14:15; Stop 12/09/18 at 14:14; Status DC Heparin Sodium (Porcine) (Heparin Sodium) 4,000 unit 1X ONCE IV Last administered on 12/07/18at 14:46; Start 12/07/18 at 14:30; Stop 12/07/18 at 14:31; Status DC Sevoflurane (Ultane) 60 ml STK-MED ONCE IH ; Start 12/07/18 at 14:44; Stop 12/07/18 at 14:44; Status DC Famotidine (Pepcid) 20 mg Q48H PO ; Start 12/08/18 at 21:00 Albuterol/ Ipratropium (Duoneb) 3 ml STK-MED ONCE .ROUTE ; Start 12/08/18 at 19:44; Stop 12/08/18 at 19:45; Status DC Sodium Chloride 1,000 ml @ 1,000 mls/hr Q1H PRN IV hypotension; Start 12/10/18 at 08:29; Stop 12/10/18 at 14:28; Status DC Diphenhydramine HCl (Benadryl) 25 mg 1X PRN PRN IV ITCHING; Start 12/10/18 at 08:30; Stop 12/11/18 at 08:29; Status DC Diphenhydramine HCl (Benadryl) 25 mg 1X PRN PRN IV ITCHING; Start 12/10/18 at 08:30; Stop 12/11/18 at 08:29; Status DC Sodium Chloride 1,000 ml @ 400 mls/hr Q2H30M PRN IV PATENCY; Start 12/10/18 at 08:29; Stop 12/10/18 at 20:28; Status DC Info (PHARMACY MONITORING -- do not chart) 1 each PRN DAILY PRN MC SEE COMMENTS; Start 12/10/18 at 08:30 Info (PHARMACY MONITORING -- do not chart) 1 each PRN DAILY PRN MC SEE COMMENTS; Start 12/10/18 at 08:30; Status UNV Alteplase, Recombinant 10 mg/ Sodium Chloride 50 ml @ 200 mls/hr 1X ONCE IV ; Start 12/10/18 at 13:30; Stop 12/10/18 at 14:08; Status DC Active Scripts Active Keflex (Cephalexin) 500 Mg Capsule 1 Cap PO TID Pinky-Shreya Tablet (Folic Acid/Vitamin B Comp W-C) 0.8 Mg Tablet 1 Tab PO DAILY Hydrocodone-Apap 10-325 (Hydrocodone Bit/Acetaminophen) 1 Tab Tablet 1 Tab PO PRN Q4HRS PRN [Darbepoetin Jarrett In Polysorbat] 60 MCG/0.3 ML Disp.syrin 60 Mcg SQ WEEKLYHS 30 Days Alprazolam 0.5 Mg Tablet 0.5 Mg PO PRN TID PRN MDD 1 Tylenol (Acetaminophen) 325 Mg Capsule 650 Mg PO Q6-8HRS PRN Zantac (Ranitidine Hcl) 300 Mg Tablet 1 Tab PO QHS Compazine (Prochlorperazine Maleate) 5 Mg Tablet 5 Mg PO PRN TID PRN 10 Days [Pantoprazole] 40 MG Tablet.dr 40 Mg PO DAILYAC 30 Days Reported Zoloft (Sertraline Hcl) 50 Mg Tablet 50 Mg PO DAILY Lisinopril 20 Mg Tablet 20 Mg PO DAILY Coreg (Carvedilol) 6.25 Mg Tablet 6.25 Mg PO BIDWMEALS Shante Knowles 6,000 Units Capsule (Lipase/Protease/Amylase) 1 Each Capsule. 1 Tab P O TID Proair Hfa (Albuterol Sulfate) 8.5 Gm Hfa.aer.ad 2 Puff INH BID PRN Levothyroxine Sodium 50 Mcg Tablet 1 Tab PO DAILY Clonidine Tts-2 (Clonidine) 1 Each Patch.tdwk 1 Patch TD WEEKLY Amlodipine Besylate 5 Mg Tablet 10 Mg PO DAILY Atorvastatin Calcium 40 Mg Tablet 40 Mg PO HS Latanoprost 2.5 Ml Drops 1 Drop EACHEYE HS Vitals/I & O Vital Sign - Last 24 Hours 12/10/18 12/10/18 12/10/18 12/10/18 10:51 11:05 11:05 11:59 Resp 16 16 14 Pulse Ox 100 100 100 O2 Delivery Room Air 12/10/18 12/10/18 12/10/18 12/10/18 11:59 13:56 14:40 15:00 Temp 97.8 97.8 Pulse 70 Resp 14 18 B/P (MAP) 158/69 (98) Pulse Ox 100 94 O2 Delivery Room Air Room Air Room Air 12/10/18 12/10/18 12/10/18 12/10/18 15:10 16:34 17:28 17:29 Pulse 70 B/P (MAP) 158/69 O2 Delivery Room Air Room Air Room Air 12/10/18 12/10/18 12/10/18 12/10/18 18:17 19:00 19:22 19:22 Temp 98.0 98.0 Pulse 71 Resp 17 B/P (MAP) 140/36 (70) Pulse Ox 95 O2 Delivery Room Air Room Air Room Air Room Air 12/10/18 12/10/18 12/10/18 12/10/18 20:00 20:20 22:28 23:00 Temp 97.5 97.5 Pulse 68 Resp 20 20 17 B/P (MAP) 145/55 (85) Pulse Ox 97 O2 Delivery Room Air Room Air Room Air Room Air 12/11/18 12/11/18 12/11/18 12/11/18 00:53 02:35 02:35 02:35 Resp 20 20 20 20 O2 Delivery Room Air Room Air 12/11/18 12/11/18 12/11/18 12/11/18 02:35 02:55 04:52 05:52 Resp 20 19 20 20 O2 Delivery Room Air Room Air Room Air Room Air 12/11/18 12/11/18 12/11/18 12/11/18 07:00 07:53 07:54 07:55 Temp 97.8 97.8 Pulse 70 Resp 18 B/P (MAP) 152/45 (80) Pulse Ox 95 O2 Delivery Room Air Room Air Room Air Room Air 12/11/18 12/11/18 12/11/18 12/11/18 08:12 08:12 08:12 08:12 Pulse 70 70 70 B/P (MAP) 152/45 152/45 152/45 O2 Delivery Room Air Intake and Output 12/10/18 12/10/18 12/11/18 14:59 22:59 06:59 Intake Total 300 ml 560 ml 1310 ml Output Total 50 ml Balance 300 ml 560 ml 1260 ml PRABHAKAR MOSQUERA MD Dec 11, 2018 10:25
[2018-12-11 10:45] VITALS: BP 149/47
--- NOTE | 2018-12-11 12:21 | NUR ---
Patient requesting pain meds, took pain pill in that was available, since IV pain med not available to be administered at that time. Patient took the pill from me and looked at it. I asked the patient if she was going to take the pill and she said "no", so I asked for the pill back from her stating to her "I can't leave the pill with you if you are not going to take it right now" and she handed the pill back and immediately retorted as I was walking out of the room that she couldn't take the pill without something to drink and that I am trying to keep things from her. I came out of the room and went to get patient a drink and came back and patient was almost out of the chair and so I went to get help to get patient either back in chair or into the bed and after rearranging the room to assist patient back to the bed , where the pt stated she wanted to return to, she refused to get in the bed. I offered the pain pill and scheduled digestive enzyme pill and she refused that as well. I will continue to monitor patient for any changes.
[2018-12-11 15:00] VITALS: BP 151/53
--- NOTE | 2018-12-11 16:40 | NUR ---
SW following Pt. Spoke with [facility], still awaiting on approval. Spoke with pt who claims she will go home today and has poor insight regarding her medical condition. SW informed her insurance computer was down contributing delay in approval process but pt is upset. SW encouraged waiting is in her best interest and its out of SW control. Discussed with RN.
[2018-12-11 16:55] VITALS: BP 151/53
--- NOTE | 2018-12-11 18:30 | NUR ---
Patient stated that she wanted to leave and go home. I called the doctor and she requested that I try to get patient to stay since this was in her best interest. I called patient's daughter to try and reason with the patient, but the patient still refused, and stated that "I'm going home not matter what you do". I got the nursing phlebotomy supervisor involved to try and see if we could possible set up home health for the patient, but there were too many variables that would have to be figured out in order for this to occur. Nursing phlebotomy supervisor came to patient's room with me and went over the fact that it would be best to stay the night and for us to work out the details of home health or long term to maintain the health and safety of the patient. She still was adamant that she was leaving so I dc'd the midline catheter from her arm and removed the wound vac from patient's left foot and placed a wet to dry dressing in its place. THis occurred at approximately 1750. A cab was called and patient packed up and assisted into the cab. Patient stated that she had a neighbor that would meet her at the apartment to help her out of the cab. Patient signed AMA.
--- NOTE | 2018-12-12 09:22 | NUR ---
Post dc note: Pt left AMA yesterday. SW faxed clinicals to [facility] and updated Nicole.
== END 2018-12-11 18:10 | disposition left against medical advice (07) | DRG 239 ==
LOC: ER 15:03 → 6 SOUTH 15:21 → 5 SOUTH 12-04 00:16
PROVIDERS: ADMIT Family Medicine; ATTEND Family Medicine
PROC: 5A1D70Z Performance of Urinary Filtration, Intermittent, Less than 6 Hours Per Day (ICD-10-PCS; 2018-12-03)
PROC: 0JBR0ZZ Excision of Left Foot Subcutaneous Tissue and Fascia, Open Approach (ICD-10-PCS; 2018-12-05)
PROC: 30233N1 Transfusion of Nonautologous Red Blood Cells into Peripheral Vein, Percutaneous Approach (ICD-10-PCS; 2018-12-05)
PROC: 5A1D70Z Performance of Urinary Filtration, Intermittent, Less than 6 Hours Per Day (ICD-10-PCS; 2018-12-05)
PROC: 0Y6H0Z1 Detachment at Right Lower Leg, High, Open Approach (ICD-10-PCS; principal; 2018-12-05 13:00)
PROC: 047Q3ZZ Dilation of Left Anterior Tibial Artery, Percutaneous Approach (ICD-10-PCS; 2018-12-07)
PROC: B41G1ZZ Fluoroscopy of Left Lower Extremity Arteries using Low Osmolar Contrast (ICD-10-PCS; 2018-12-07)
PROC: 5A1D70Z Performance of Urinary Filtration, Intermittent, Less than 6 Hours Per Day (ICD-10-PCS; 2018-12-07)
PROC: 5A1D70Z Performance of Urinary Filtration, Intermittent, Less than 6 Hours Per Day (ICD-10-PCS; 2018-12-10)
DX: E11.52 Type 2 diabetes mellitus with diabetic peripheral angiopathy with gangrene (principal); N18.6 End stage renal disease; I70.262 Atherosclerosis of native arteries of extremities with gangrene, left leg; E46 Unspecified protein-calorie malnutrition; I13.2 Hypertensive heart and chronic kidney disease with heart failure and with stage 5 chronic kidney disease, or end stage renal disease; E11.621 Type 2 diabetes mellitus with foot ulcer; E11.22 Type 2 diabetes mellitus with diabetic chronic kidney disease; E11.42 Type 2 diabetes mellitus with diabetic polyneuropathy; Z53.21 Procedure and treatment not carried out due to patient leaving prior to being seen by health care provider; Z66 Do not resuscitate; E03.9 Hypothyroidism, unspecified; E21.3 Hyperparathyroidism, unspecified; D63.1 Anemia in chronic kidney disease; G89.29 Other chronic pain; E78.5 Hyperlipidemia, unspecified; I50.9 Heart failure, unspecified; F32.9 Major depressive disorder, single episode, unspecified; F41.9 Anxiety disorder, unspecified; M79.7 Fibromyalgia; J44.9 Chronic obstructive pulmonary disease, unspecified; L97.519 Non-pressure chronic ulcer of other part of right foot with unspecified severity; Z88.8 Allergy status to other drugs, medicaments and biological substances; Z68.20 Body mass index [BMI] 20.0-20.9, adult; Z79.899 Other long term (current) drug therapy; Z82.49 Family history of ischemic heart disease and other diseases of the circulatory system; Z83.3 Family history of diabetes mellitus; Z89.511 Acquired absence of right leg below knee; Z89.512 Acquired absence of left leg below knee; Z89.611 Acquired absence of right leg above knee; Z90.710 Acquired absence of both cervix and uterus; Z91.19 Patient's noncompliance with other medical treatment and regimen; Z99.2 Dependence on renal dialysis; Z79.4 Long term (current) use of insulin
CPT/HCPCS: 36415; 37228; 75710; 76881; 76937; 80048; 80053; 80069; 82962; 83605; 83735; 85018; 85025; 85027; 85610; 86850; 86900; 86901; 86920; 87040; 88307; 88311; 96374; 96375; A7015; C1713; C1758; C1769; C1892; C1894; J0171; J0360; J0696; J0780; J0882; J1100; J1170; J1644; J1815; J2001; J2405; J2704; J3010; J7030; P9016; Q0164; Q9967; 97110; 97530; 97535; 99285-25; G0378

== ENCOUNTER 2018-12-12 04:52 | Emergency (ER) | payer OTHER ==
[~2018-12-12] VITALS: Ht 157.5 cm; Wt 52.6 kg
[2018-12-12 04:52] VITALS: BP 148/63
[~2018-12-12 04:52] MED LIST changes: +DARBEPOETIN ALFA IN POLYSORBAT SQ; +FOLI0.8T21 PO; +HYDR-2769 PO
[2018-12-12] MEDS ORDERED: HYDROcodone/APAP 7.5/325MG 1 TAB TABLET PO ONE (05:30)
--- NOTE | 2018-12-12 05:46 | PHYS DOC ---
Past Medical History Past Medical History: Diabetes-Type II Additional Past Medical Histor: neuropathy, cataracts,CHRONIC PAIN,ESRD Past Surgical History: Hysterectomy, Other Additional Past Surgical Histo: PICC PLACEMENT Alcohol Use: None Drug Use: None Adult General Chief Complaint Chief Complaint: LOWER EXT PAIN HPI HPI 58-year-old female presents to the emergency Department with complaints of pain to left foot. Patient has a history of amputation of the left fifth toe several weeks ago, she has open wound however no significant drainage or acute concerns for infection. She complains of pain. Patient was seen here approximately 2 weeks ago for right gangrenous foot she was admitted at that time with below the knee amputation. Incision site in the right BKA is without concerns for infection. She denies any chest pain, shortness of breath, nausea, vomiting, she primarily complains of pain to the left fifth toe which is been amputated. Review of Systems Review of Systems Constitutional: Denies fever or chills [] Respiratory: Denies cough or shortness of breath [] Cardiovascular: No additional information not addressed in HPI [] GI: Denies abdominal pain, nausea, vomiting, bloody stools or diarrhea [] Musculoskeletal: Pain to the left foot, phantom pain, open wound without signs of infection Integument: Denies rash or skin lesions [] Neurologic: Denies headache, focal weakness or sensory changes [] All other systems were reviewed and found to be within normal limits, except as documented in this note. Current Medications Current Medications Current Medications Medications (Trade) Dose Ordered Sig/Clarence Start Time Stop Time Status Last Admin Dose Admin Acetaminophen/ Hydrocodone Bitart (Lortab 7.5/325) 1 tab 1X ONCE 12/12/18 05:30 12/12/18 05:31 DC 12/12/18 05:19 1 TAB Allergies Allergies Allergies Coded Allergies Type Severity Reaction Last Updated Verified morphine Allergy Intermediate Itching 03/27/18 Yes Physical Exam Physical Exam Constitutional: Well developed, well nourished, no acute distress secondary to pain HENT: Normocephalic, atraumatic, bilateral external ears normal, oropharynx moist, no oral exudates, nose normal. [] Eyes: PERRLA, EOMI, conjunctiva normal, no discharge. [] Cardiovascular:Heart rate regular rhythm, no murmur [] Lungs & Thorax: Bilateral breath sounds clear to auscultation [] Abdomen: Bowel sounds normal, soft, no tenderness, no masses, no pulsatile masses. [] Skin: Warm, dry, no erythema, no rash. [] Extremities: Left fifth toe amputated, open wound, no acute signs of infection, right BKA with incision without acute signs of infection. Neurologic: Alert and oriented X 3, no focal deficits noted. [] Psychologic: Affect normal, judgement normal, mood normal. [] Current Patient Data Vital Signs Vital Signs Date Time Temp Pulse Resp B/P (MAP) Pulse Ox O2 Delivery O2 Flow Rate FiO2 12/12/18 04:52 98.5 100 24 148/63 (91) 94 Room Air 98.5 Lab Values Laboratory Tests Test 12/12/18 05:40 White Blood Count 11.4 x10^3/uL (4.0-11.0) H Red Blood Count 3.56 x10^6/uL (3.50-5.40) Hemoglobin 10.6 g/dL (12.0-15.5) L Hematocrit 32.0 % (36.0-47.0) L Mean Corpuscular Volume 90 fL (79-100) Mean Corpuscular Hemoglobin 30 pg (25-35) Mean Corpuscular Hemoglobin Concent 33 g/dL (31-37) Red Cell Distribution Width 16.0 % (11.5-14.5) H Platelet Count 361 x10^3/uL (140-400) Neutrophils (%) (Auto) 86 % (31-73) H Lymphocytes (%) (Auto) 9 % (24-48) L Monocytes (%) (Auto) 4 % (0-9) Eosinophils (%) (Auto) 0 % (0-3) Basophils (%) (Auto) 1 % (0-3) Neutrophils # (Auto) 9.8 x10^3/uL (1.8-7.7) H Lymphocytes # (Auto) 1.0 x10^3/uL (1.0-4.8) Monocytes # (Auto) 0.5 x10^3/uL (0.0-1.1) Eosinophils # (Auto) 0.0 x10^3/uL (0.0-0.7) Basophils # (Auto) 0.1 x10^3/uL (0.0-0.2) Segmented Neutrophils % 88 % (35-66) H Band Neutrophils % 3 % (0-9) Lymphocytes % 6 % (24-48) L Monocytes % 3 % (0-10) Platelet Estimate Adequate (ADEQUATE) Anisocytosis Slight Sodium Level 137 mmol/L (136-145) Potassium Level 4.9 mmol/L (3.5-5.1) Chloride Level 95 mmol/L (98-107) L Carbon Dioxide Level 33 mmol/L (21-32) H Anion Gap 9 (6-14) Blood Urea Nitrogen 42 mg/dL (7-20) H Creatinine 6.2 mg/dL (0.6-1.0) H Estimated GFR (Cockcroft-Gault) 8.5 BUN/Creatinine Ratio 7 (6-20) Glucose Level 199 mg/dL (70-99) H Calcium Level 9.7 mg/dL (8.5-10.1) Total Bilirubin 0.4 mg/dL (0.2-1.0) Aspartate Amino Transferase (AST) 71 U/L (15-37) H Alanine Aminotransferase (ALT) 33 U/L (14-59) Alkaline Phosphatase 113 U/L (46-116) Total Protein 8.0 g/dL (6.4-8.2) Albumin 2.7 g/dL (3.4-5.0) L Albumin/Globulin Ratio 0.5 (1.0-1.7) L Laboratory Tests 12/12/18 05:40 Laboratory Tests 12/12/18 05:40 EKG EKG [] Radiology/Procedures Radiology/Procedures [] Course & Med Decision Making Course & Med Decision Making Pertinent Labs and Imaging studies reviewed. (See chart for details) []58-year-old female presents to the emergency Department with complaints of pain to left foot. Patient has a history of amputation of the left fifth toe several weeks ago, she has open wound however no significant drainage or acute concerns for infection. She complains of pain. Patient was seen here approximately 2 weeks ago for right gangrenous foot she was admitted at that time with below the knee amputation. Incision site in the right BKA is without concerns for infection. She denies any chest pain, shortness of breath, nausea, vomiting, she primarily complains of pain to the left fifth toe which is been amputated. Labs reviewed - no evidence of acute infection appreciated. Patient provided with po norco 7.5mg x 1. Discussed wound care and instructions provided. Recommend follow up as directed. Continued schedule HD. Plan for dc home. Patient continued to ask for po pain medications however declined Dragon Disclaimer Melisa Disclaimer This electronic medical record was generated, in whole or in part, using a voice recognition dictation system. Departure Departure Impression: Primary Impression: Amputated toe of left foot Additional Impression: Delayed surgical wound healing Disposition: HOME, SELF-CARE Condition: STABLE Referrals: UNKNOWN PCP NAME (PCP) Patient Instructions: Wound Care, [id number] Additional Instructions: Recommend taking pain medications as prescribed Labs reviewed without evidence of infection appreciated Continue wound care - see instructions Return to the ER with complaints of fever, altered mental status Keep appointments as scheduled for HD Problem Qualifiers MALLORY HOLLAND MD Dec 12, 2018 05:46
[2018-12-12 05:55] LABS: BASO # 0.1 x10^3/uL (0.0-0.2); BASO % 1 % (0-3); EOS % 0 % (0-3); HEMOGLOBIN 10.6 g/dL (12.0-15.5); LYMPH % 9 % (24-48); MEAN CORPUSCULAR HEMOGLOBIN 30 pg (25-35); MEAN CORPUSCULAR HGB CONC 33 g/dL (31-37); MEAN CORPUSCULAR VOLUME 90 fL (79-100); MONO # 0.5 x10^3/uL (0.0-1.1); MONO % 4 % (0-9); NEUT # 9.8 x10^3/uL (1.8-7.7); NEUT % 86 % (31-73); PLATELET COUNT 361 x10^3/uL (140-400); RED BLOOD COUNT 3.56 x10^6/uL (3.50-5.40); WHITE BLOOD COUNT 11.4 x10^3/uL (4.0-11.0)
[2018-12-12 06:04] LABS: CALCIUM 9.7 mg/dL (8.5-10.1); CREATININE 6.2 mg/dL (0.6-1.0); GFR 8.5; POTASSIUM 4.9 mmol/L (3.5-5.1)
[2018-12-12 06:06] LABS: ALBUMIN 2.7 g/dL (3.4-5.0); ALBUMIN/GLOBULIN RATIO 0.5 (1.0-1.7); TOTAL BILIRUBIN 0.4 mg/dL (0.2-1.0)
[2018-12-12 07:25] LABS: % BANDS 3 % (0-9); % LYMPHS 6 % (24-48); % MONOS 3 % (0-10); % SEGS 88 % (35-66); ANISOCYTOSIS SLIGHT; PLT ESTIMATE ADEQUATE (ADEQUATE)
== END 2018-12-12 07:46 | disposition home or self-care (01) ==
LOC: ER 04:52
DX: S98.132D Complete traumatic amputation of one left lesser toe, subsequent encounter (principal); E11.40 Type 2 diabetes mellitus with diabetic neuropathy, unspecified; G89.29 Other chronic pain; E11.22 Type 2 diabetes mellitus with diabetic chronic kidney disease; N18.6 End stage renal disease; Z90.710 Acquired absence of both cervix and uterus; Z88.5 Allergy status to narcotic agent; X58.XXXD Exposure to other specified factors, subsequent encounter
CPT/HCPCS: 36415; 80053; 85007; 85025; 99284

== ENCOUNTER 2018-12-14 01:13 | Inpatient (IN) | payer OTHER ==
[~2018-12-14] VITALS: Ht 157.5 cm; Wt 55.4 kg
[2018-12-14] MEDS ORDERED: FAMOTIDINE 20 MG/2 ML VIAL IVP ONE (01:30)
[2018-12-14] MEDS ORDERED: ONDANSETRON PF 4 MG/2 ML VIAL. IV ONE (01:30)
[2018-12-14] MEDS ORDERED: fentaNYL PF VIAL 100 MCG/2 ML VIAL IV ONE (01:30)
[2018-12-14] MEDS ORDERED: MUPIROCIN 2 % TOPICAL CREAM 30GM TUBE. TP ONE ×2 (01:45→02:30)
[2018-12-14 02:47] LABS: BASO # 0.1 x10^3/uL (0.0-0.2); BASO % 1 % (0-3); EOS % 0 % (0-3); HEMATOCRIT 29.2 % (36.0-47.0); HEMOGLOBIN 9.8 g/dL (12.0-15.5); LYMPH # 1.5 x10^3/uL (1.0-4.8); LYMPH % 13 % (24-48); MEAN CORPUSCULAR HEMOGLOBIN 30 pg (25-35); MEAN CORPUSCULAR HGB CONC 34 g/dL (31-37); MEAN CORPUSCULAR VOLUME 89 fL (79-100); MONO % 9 % (0-9); NEUT # 8.8 x10^3/uL (1.8-7.7); NEUT % 77 % (31-73); PLATELET COUNT 407 x10^3/uL (140-400); RED BLOOD COUNT 3.27 x10^6/uL (3.50-5.40); RED CELL DISTRIBUTION WIDTH 16.5 % (11.5-14.5); WHITE BLOOD COUNT 11.5 x10^3/uL (4.0-11.0)
[2018-12-14 02:55] LABS: CALCIUM 8.3 mg/dL (8.5-10.1); CREATININE 8.6 mg/dL (0.6-1.0); GFR 5.8; POTASSIUM 5.8 mmol/L (3.5-5.1)
[2018-12-14 03:01] LABS: ALBUMIN 2.6 g/dL (3.4-5.0); ALBUMIN/GLOBULIN RATIO 0.5 (1.0-1.7); C-REACTIVE PROTEIN 47.9 mg/L (0-3.3); MAGNESIUM 2.5 mg/dL (1.8-2.4); TOTAL BILIRUBIN 0.3 mg/dL (0.2-1.0); TOTAL PROTEIN 7.5 g/dL (6.4-8.2)
[2018-12-14] MEDS ORDERED: INSULIN REGULAR 100 UNIT/ML 3ML VIAL. IV ONE (03:30)
--- NOTE | 2018-12-14 03:41 | PHYS DOC ---
Past Medical History Past Medical History: Diabetes-Type II, Hypertension, Renal Failure Additional Past Medical Histor: neuropathy, cataracts,CHRONIC PAIN,ESRD Past Surgical History: Hysterectomy, Other Additional Past Surgical Histo: PICC PLACEMENT, R BKA, SHUNT Smoking: Quit Greater Than 1 Year Alcohol Use: None Drug Use: None Adult General Chief Complaint Chief Complaint: FOOT INJURY PAIN HPI HPI 58-year-old female with past medical history of diabetes, end-stage renal disease on hemodialysis Monday/Monday/Monday presents with report of chronic pain to left foot at site of recent toe amputation and right BKA which has been worse today. Patient reports was recently admitted for procedure- amputation to left lateral toes. Patient recently was seen in ED and sent to residential. Patient reports residential "wasn't helping her." Reports she left residential and went back to her house at which time patient fell and hurt both the right foot and left BKA stump. Denies head trauma or neck pain. Reports "pain is out of control" Review of Systems Review of Systems Constitutional: Denies fever or chills; reports malaise Eyes: Denies redness or eye pain HENT: Denies nasal congestion or sore throat Respiratory: Denies cough or shortness of breath Cardiovascular: Denies chest pain or palpitations GI: Denies abdominal pain, nausea, or vomiting Musculoskeletal: Denies back pain; reports pain to left foot and right BKA Integument: Denies swelling; Denies erythema Neurologic: Denies headache; report generalized weakness Complete systems were reviewed and found to be within normal limits, except as documented in this note. Current Medications Current Medications Current Medications Medications (Trade) Dose Ordered Sig/Clarence Start Time Stop Time Status Last Admin Dose Admin Famotidine (Pepcid Vial) 20 mg 1X ONCE 12/14/18 01:30 12/14/18 01:32 DC 12/14/18 02:52 20 MG Fentanyl Citrate (Fentanyl 2ml Vial) 50 mcg 1X ONCE 12/14/18 01:30 12/14/18 01:32 DC 12/14/18 02:52 50 MCG Insulin Human Regular (HumuLIN R VIAL) 10 unit 1X ONCE 12/14/18 03:30 12/14/18 03:35 DC Mupirocin (Bactroban) 1 herber 1X ONCE 12/14/18 02:30 12/14/18 02:31 DC 12/14/18 02:52 1 HERBER Ondansetron HCl (Zofran) 4 mg 1X ONCE 12/14/18 01:30 12/14/18 01:32 DC 12/14/18 02:52 4 MG Allergies Allergies Allergies Coded Allergies Type Severity Reaction Last Updated Verified morphine Allergy Intermediate Itching 03/27/18 Yes Physical Exam Physical Exam Constitutional: Well developed, well nourished,non-toxic appearance, crying HENT: Normocephalic, atraumatic, oropharynx moist Eyes: PERRL, EOMI, conjunctiva normal, no discharge Neck: Normal range of motion, no tenderness, supple Cardiovascular: Heart rate normal, regular rhythm Lungs & Thorax: Bilateral breath sounds clear to auscultation, no wheezing Abdomen: Soft, no tenderness Skin: Warm, dry, no erythema, open wound to left lateral foot, open to subcutaneous fat, no surrounding erythema, no exudate or bleeding, contusion to right BKA stump Extremities: Tenderness to left foot and right BKA stump on ROM and palpation Neurologic: Alert and oriented X 3, no focal deficits noted Psychologic: Affect anxious, judgement normal Current Patient Data Vital Signs Vital Signs Date Time Temp Pulse Resp B/P (MAP) Pulse Ox O2 Delivery O2 Flow Rate FiO2 12/14/18 03:18 80 20 185/78 (113) 98 Room Air 12/14/18 01:13 98.2 98.2 Lab Values Laboratory Tests Test 12/14/18 02:35 White Blood Count 11.5 x10^3/uL (4.0-11.0) H Red Blood Count 3.27 x10^6/uL (3.50-5.40) L Hemoglobin 9.8 g/dL (12.0-15.5) L Hematocrit 29.2 % (36.0-47.0) L Mean Corpuscular Volume 89 fL (79-100) Mean Corpuscular Hemoglobin 30 pg (25-35) Mean Corpuscular Hemoglobin Concent 34 g/dL (31-37) Red Cell Distribution Width 16.5 % (11.5-14.5) H Platelet Count 407 x10^3/uL (140-400) H Neutrophils (%) (Auto) 77 % (31-73) H Lymphocytes (%) (Auto) 13 % (24-48) L Monocytes (%) (Auto) 9 % (0-9) Eosinophils (%) (Auto) 0 % (0-3) Basophils (%) (Auto) 1 % (0-3) Neutrophils # (Auto) 8.8 x10^3/uL (1.8-7.7) H Lymphocytes # (Auto) 1.5 x10^3/uL (1.0-4.8) Monocytes # (Auto) 1.0 x10^3/uL (0.0-1.1) Eosinophils # (Auto) 0.0 x10^3/uL (0.0-0.7) Basophils # (Auto) 0.1 x10^3/uL (0.0-0.2) Erythrocyte Sedimentation Rate 120 (0-25) H Sodium Level 137 mmol/L (136-145) Potassium Level 5.8 mmol/L (3.5-5.1) H Chloride Level 97 mmol/L (98-107) L Carbon Dioxide Level 30 mmol/L (21-32) Anion Gap 10 (6-14) Blood Urea Nitrogen 68 mg/dL (7-20) H Creatinine 8.6 mg/dL (0.6-1.0) H Estimated GFR (Cockcroft-Gault) 5.8 BUN/Creatinine Ratio 8 (6-20) Glucose Level 344 mg/dL (70-99) H Lactic Acid Level 1.1 mmol/L (0.4-2.0) Calcium Level 8.3 mg/dL (8.5-10.1) L Magnesium Level 2.5 mg/dL (1.8-2.4) H Total Bilirubin 0.3 mg/dL (0.2-1.0) Aspartate Amino Transferase (AST) 62 U/L (15-37) H Alanine Aminotransferase (ALT) 30 U/L (14-59) Alkaline Phosphatase 116 U/L (46-116) C-Reactive Protein, Quantitative 47.9 mg/L (0-3.3) H Total Protein 7.5 g/dL (6.4-8.2) Albumin 2.6 g/dL (3.4-5.0) L Albumin/Globulin Ratio 0.5 (1.0-1.7) L Laboratory Tests 12/14/18 02:35 Laboratory Tests 12/14/18 02:35 EKG EKG [] Radiology/Procedures Radiology/Procedures PROCEDURE: TIBIA FIBULA RIGHT & LEFT FOOT 3V Right tibia-fibula AP lateral x-rays HISTORY: Pain of the distal stump of amputation. FINDINGS: Below the knee amputation. The osteotomies of the tibia and fibula are well-defined. No periosteal reaction or lytic bone destruction to localize a site of osteomyelitis. No fracture. Vascular calcifications. IMPRESSION: [id number] amputation. No acute osseous injury. Left foot x-rays 3 views HISTORY: Pain at indication suspect FINDINGS: Amputation of the fifth toe and distal fifth metatarsal head. Soft tissue emphysema at the amputation site presumably due to recent surgery. No periosteal reaction or aggressive lytic bone destruction to localize a site of osteomyelitis. Vascular calcifications present. No fracture or dislocation. IMPRESSION: Amputation of the fifth toe and distal fifth metatarsal with soft tissue emphysema at the resection site presumably due to recent surgery. Emphysema could also be observed with a soft tissue ulceration. No acute osseous injury evident. Electronically signed by: Nikunj Devi MD (12/14/2018 3:36 AM) [facility] Course & Med Decision Making Course & Med Decision Making Pertinent Labs and Imaging studies reviewed. (See chart for details) Patient with past medical history of diabetes mellitus and end-stage renal disease on hemodialysis Monday/Monday/Monday presents with report of increased pain to left foot and right BKA after fall today at home. Patient had just been seen in the ED at [facility] recently and placed in residential. Patient apparently left residential AGAINST MEDICAL ADVICE and subsequently fell. Patient not able to care for self. Labs obtained and posted to chart. Lactic acid WNL and WBC slightly elevated, CRP and ESR significantly elevated. Hyperkalemia with hyperglycemia noted. Insulin IV provided. X-rays of left foot and right BKA without acute process. Pain addressed. Wounds cleaned and dressed. Patient requiring admission for further evaluation and treatment. Discussed with Dr. De Guzman (hospitalist) who is in agreement with admission. Discussed findings and plan with patient and family, who acknowledge understanding and agreement. Dragon Disclaimer Dragon Disclaimer This electronic medical record was generated, in whole or in part, using a voice recognition dictation system. Departure Departure Impression: Primary Impression: Hyperkalemia Additional Impressions: Chronic pain ESRD on hemodialysis Fall Open wound Hyperglycemia Disposition: 09 ADMITTED INPATIENT Admitting Physician: SOFI ([facility]) Condition: GUARDED Referrals: UNKNOWN PCP NAME (PCP) Critical Care Time Critical care time was 30 minutes which includes time at bedside, spent in discussion of patient's care with specialists and/or family members, with interpretation of laboratory and/or radiological studies and is exclusive of procedures. Problem Qualifiers Additional Impressions: Chronic pain Chronic pain type: other chronic pain Qualified Codes: G89.29 - Other chronic pain Fall Encounter type: initial encounter Qualified Codes: W19.XXXA - Unspecified fall, initial encounter MARQUISE ZAMBRANO DO Dec 14, 2018 03:41
[2018-12-14] MEDS ORDERED: IV DEXTROSE 5% 250 ML BAG. IV PRN (04:00)
[2018-12-14] MEDS ORDERED: ONDANSETRON PF 4 MG/2 ML VIAL. IV PRN (04:00)
[2018-12-14] MEDS ORDERED: DEXTROSE 50% 25 GM / 50ML DISP.SYRIN. IV PRN (04:00)
[2018-12-14 05:00] VITALS: BP 219/88
--- NOTE | 2018-12-14 06:01 | NUR ---
Pt arrived to unit per cart. pt assisted to bed with min assist pt oriented to surroundings vs obtained and bp elevated pt c/o pain 10/10 to lt foot and rt leg. Poc explained pt tearful will medicate pt and continue to monitor pt. Call placed to Dr. De Guzman re pt elevated bp with no prn meds ordered. Call light placed in reach bed alarm in place.
[2018-12-14] MEDS: fentaNYL PF VIAL 100 MCG/2 ML VIAL IV PRN ×2 (06:16→08:54)
[2018-12-14 06:19] VITALS: BP 195/81
--- NOTE | 2018-12-14 08:52 | PDOC1 ---
History and Physical Date of Admission Date of Admission DATE: 12/14/18 TIME: 08:45 History of Present Illness History of Present Illness Ms. Kendrick, 58-year-old female with past medical history of diabetes, end-stage renal disease on hemodialysis Monday/Monday/Monday presents with report of chronic pain to left foot at site of recent toe amputation and right BKA which has been worse today. Patient reports was recently admitted for procedure- amputation to left lateral toes. Patient recently was seen in ED and sent [facility]. Patient reports [facility]was[facility]'t helping her." Reports she left [facility] and went back to her house at which time patient fell and hurt both the right foot and left BKA stump. Denies head trauma or neck pain. Reports "pain is out of control" Past Medical History Cardiovascular: CHF, HTN, Hyperlipidemia, Other Pulmonary: Asthma, COPD CENTRAL NERVOUS SYSTEM: Periperal neuropathy GI: No pertinent hx Heme/Onc: No pertinent hx Hepatobiliary: No pertinent hx Psych: Anxiety Rheumatologic: Fibromyalgia Infectious disease: No pertinent hx Renal/: Chronic renal failure Endocrine: Diabetes, Hypothyroidism, Hyperparathyroidism Past Surgical History Past Surgical History: Other Family History Family History: High Cholestrol, Hypertension, Other Social History ALCOHOL: none Drugs: Cocaine, Marijuana Current Problem List Problem List Problems Medical Problems: (1) Fall Status: Acute (2) Hyperglycemia Status: Acute (3) Hyperkalemia Status: Acute Current Medications Current Medications Current Medications Fentanyl Citrate (Fentanyl 2ml Vial) 50 mcg 1X ONCE IV Last administered on 12/14/18at 02:52; Start 12/14/18 at 01:30; Stop 12/14/18 at 01:32; Status DC Ondansetron HCl (Zofran) 4 mg 1X ONCE IV Last administered on 12/14/18at 02:52; Start 12/14/18 at 01:30; Stop 12/14/18 at 01:32; Status DC Famotidine (Pepcid Vial) 20 mg 1X ONCE IVP Last administered on 12/14/18at 02:52; Start 12/14/18 at 01:30; Stop 12/14/18 at 01:32; Status DC Mupirocin (Bactroban) 1 herber 1X ONCE TP Last administered on 12/14/18at 02:52; Start 12/14/18 at 01:45; Stop 12/14/18 at 01:46; Status DC Mupirocin (Bactroban) 1 herber 1X ONCE TP Last administered on 12/14/18at 02:52; Start 12/14/18 at 02:30; Stop 12/14/18 at 02:31; Status DC Insulin Human Regular (HumuLIN R VIAL) 10 unit 1X ONCE IV ; Start 12/14/18 at 03:30; Stop 12/14/18 at 03:35; Status DC Ondansetron HCl (Zofran) 4 mg PRN Q8HRS PRN IV NAUSEA/VOMITING; Start 12/14/18 at 04:00; Stop 12/15/18 at 03:59 Fentanyl Citrate (Fentanyl 2ml Vial) 50 mcg PRN Q2HR PRN IV PAIN Last administered on 12/14/18at 06:16; Start 12/14/18 at 04:00 Insulin Human Lispro (HumaLOG) 0-5 UNITS TIDWMEALS SQ ; Start 12/14/18 at 08:00 Dextrose (Dextrose 50%-Water Syringe) 12.5 gm PRN Q15MIN PRN IV SEE COMMENTS; Start 12/14/18 at 04:00 Dextrose 250 ml PRN Q15MIN PRN IV SEE COMMENTS; Start 12/14/18 at 04:00 Active Scripts Active Keflex (Cephalexin) 500 Mg Capsule 1 Cap PO TID Pinky-Shreya Tablet (Folic Acid/Vitamin B Comp W-C) 0.8 Mg Tablet 1 Tab PO DAILY Hydrocodone-Apap 10-325 (Hydrocodone Bit/Acetaminophen) 1 Tab Tablet 1 Tab PO PRN Q4HRS PRN [Darbepoetin Jarrett In Polysorbat] 60 MCG/0.3 ML Disp.syrin 60 Mcg SQ WEEKLYHS 30 Days Alprazolam 0.5 Mg Tablet 0.5 Mg PO PRN TID PRN MDD 1 Tylenol (Acetaminophen) 325 Mg Capsule 650 Mg PO Q6-8HRS PRN Zantac (Ranitidine Hcl) 300 Mg Tablet 1 Tab PO QHS Compazine (Prochlorperazine Maleate) 5 Mg Tablet 5 Mg PO PRN TID PRN 10 Days [Pantoprazole] 40 MG Tablet.dr 40 Mg PO DAILYAC 30 Days Reported Zoloft (Sertraline Hcl) 50 Mg Tablet 50 Mg PO DAILY Lisinopril 20 Mg Tablet 20 Mg PO DAILY Coreg (Carvedilol) 6.25 Mg Tablet 6.25 Mg PO BIDWMEALS Crewalker Knowles 6,000 Units Capsule (Lipase/Protease/Amylase) 1 Each Capsule. 1 Tab PO TID Proair Hfa (Albuterol Sulfate) 8.5 Gm Hfa.aer.ad 2 Puff INH BID PRN Levothyroxine Sodium 50 Mcg Tablet 1 Tab PO DAILY Clonidine Tts-2 (Clonidine) 1 Each Patch.tdwk 1 Patch TD WEEKLY Amlodipine Besylate 5 Mg Tablet 10 Mg PO DAILY Atorvastatin Calcium 40 Mg Tablet 40 Mg PO HS Latanoprost 2.5 Ml Drops 1 Drop EACHEYE HS Allergies Allergies: Coded Allergies: morphine (Verified Allergy, Intermediate, Itching, 03/27/18) ROS General: YES: Chills PSYCHOLOGICAL ROS: No: Anxiety, Behavioral Disorder, Concentration difficultie, Decreased libido, Depression, Disorientation, Hallucinations, Hostility, Irritablity, Memory difficulties, Mood Swings, Obsessive thoughts, Physical abuse, Sexual abuse, Sleep disturbances, Suicidal ideation, Other Eyes: No Blurry vision, No Decreased vision, No Double vision, No Dry eyes, No Excessive tearing, No Eye Pain, No Itchy Eyes, No Loss of vision, No Photophobia, No Scotomata, No Uses contacts, No Uses glasses, No Other Respiratory: No: Cough, Hemoptysis, Orthopnea, Pleuritic Pain, Shortness of breath, SOB with excertion, Sputum Changes, Stridor, Tachypnea, Wheezing, Other Cardiovascular: No Chest Pain, No Palpitations, No Paroxysmal Noc. Dyspnea, No Edema, No Lt Headedness, No Other Gastrointestinal: Yes Nausea; No Vomiting, No Abdominal Pain, No Diarrhea, No Constipation, No Melena, No Hematochezia, No Other Genitourinary: No Dysuria, No Frequency, No Incontinence, No Hematuria, No Retention, No Discharge, No Urgency, No Pain, No Flank Pain, No Other, No , No , No , No , No , No , No Musculoskeletal: Yes Gait Disturbance, Yes Joint Pain, Yes Joint Stiffness, Yes Muscle Pain, Yes Muscular Weakness, Yes Pain In: Neurological: Yes Gait Disturbance; No Behavorial Changes, No Bowel/Bladder ControlChng, No Confusion, No Dizziness, No Headaches, No Impaired Coord/balance, No Memory Loss, No Numbness/Tingling, No Seizures, No Speech Problems, No Tremors, No Visual Changes, No Weakness, No Other Skin: Yes Dry Skin Physical Exam General: Alert, moderate distress HEENT: PERRLA, Mucous membr. moist/pink Lungs: Clear to auscultation, Normal air movement Heart: S1S2 Abdomen: Normal bowel sounds Extremities: No cyanosis, Normal pulses Neuro: Normal gait, Strength at 5/5 X4 ext Psych/Mental Status: Mood NL Vitals Vitals Vital Signs Date Time Temp Pulse Resp B/P (MAP) Pulse Ox O2 Delivery O2 Flow Rate FiO2 12/14/18 06:19 90 16 195/81 (119) 94 Room Air 12/14/18 05:00 98.4 98.4 Labs Labs Laboratory Tests Test 12/14/18 02:35 12/14/18 07:25 White Blood Count 11.5 x10^3/uL (4.0-11.0) Red Blood Count 3.27 x10^6/uL (3.50-5.40) Hemoglobin 9.8 g/dL (12.0-15.5) Hematocrit 29.2 % (36.0-47.0) Mean Corpuscular Volume 89 fL (79-100) Mean Corpuscular Hemoglobin 30 pg (25-35) Mean Corpuscular Hemoglobin Concent 34 g/dL (31-37) Red Cell Distribution Width 16.5 % (11.5-14.5) Platelet Count 407 x10^3/uL (140-400) Neutrophils (%) (Auto) 77 % (31-73) Lymphocytes (%) (Auto) 13 % (24-48) Monocytes (%) (Auto) 9 % (0-9) Eosinophils (%) (Auto) 0 % (0-3) Basophils (%) (Auto) 1 % (0-3) Neutrophils # (Auto) 8.8 x10^3/uL (1.8-7.7) Lymphocytes # (Auto) 1.5 x10^3/uL (1.0-4.8) Monocytes # (Auto) 1.0 x10^3/uL (0.0-1.1) Eosinophils # (Auto) 0.0 x10^3/uL (0.0-0.7) Basophils # (Auto) 0.1 x10^3/uL (0.0-0.2) Erythrocyte Sedimentation Rate 120 (0-25) Sodium Level 137 mmol/L (136-145) Potassium Level 5.8 mmol/L (3.5-5.1) Chloride Level 97 mmol/L (98-107) Carbon Dioxide Level 30 mmol/L (21-32) Anion Gap 10 (6-14) Blood Urea Nitrogen 68 mg/dL (7-20) Creatinine 8.6 mg/dL (0.6-1.0) Estimated GFR (Cockcroft-Gault) 5.8 BUN/Creatinine Ratio 8 (6-20) Glucose Level 344 mg/dL (70-99) Lactic Acid Level 1.1 mmol/L (0.4-2.0) Calcium Level 8.3 mg/dL (8.5-10.1) Magnesium Level 2.5 mg/dL (1.8-2.4) Total Bilirubin 0.3 mg/dL (0.2-1.0) Aspartate Amino Transf (AST/SGOT) 62 U/L (15-37) Alanine Aminotransferase (ALT/SGPT) 30 U/L (14-59) Alkaline Phosphatase 116 U/L (46-116) C-Reactive Protein, Quantitative 47.9 mg/L (0-3.3) Total Protein 7.5 g/dL (6.4-8.2) Albumin 2.6 g/dL (3.4-5.0) Albumin/Globulin Ratio 0.5 (1.0-1.7) Glucose (Fingerstick) 183 mg/dL (70-99) Laboratory Tests Test 12/14/18 02:35 12/14/18 07:25 White Blood Count 11.5 x10^3/uL (4.0-11.0) Red Blood Count 3.27 x10^6/uL (3.50-5.40) Hemoglobin 9.8 g/dL (12.0-15.5) Hematocrit 29.2 % (36.0-47.0) Mean Corpuscular Volume 89 fL (79-100) Mean Corpuscular Hemoglobin 30 pg (25-35) Mean Corpuscular Hemoglobin Concent 34 g/dL (31-37) Red Cell Distribution Width 16.5 % (11.5-14.5) Platelet Count 407 x10^3/uL (140-400) Neutrophils (%) (Auto) 77 % (31-73) Lymphocytes (%) (Auto) 13 % (24-48) Monocytes (%) (Auto) 9 % (0-9) Eosinophils (%) (Auto) 0 % (0-3) Basophils (%) (Auto) 1 % (0-3) Neutrophils # (Auto) 8.8 x10^3/uL (1.8-7.7) Lymphocytes # (Auto) 1.5 x10^3/uL (1.0-4.8) Monocytes # (Auto) 1.0 x10^3/uL (0.0-1.1) Eosinophils # (Auto) 0.0 x10^3/uL (0.0-0.7) Basophils # (Auto) 0.1 x10^3/uL (0.0-0.2) Erythrocyte Sedimentation Rate 120 (0-25) Sodium Level 137 mmol/L (136-145) Potassium Level 5.8 mmol/L (3.5-5.1) Chloride Level 97 mmol/L (98-107) Carbon Dioxide Level 30 mmol/L (21-32) Anion Gap 10 (6-14) Blood Urea Nitrogen 68 mg/dL (7-20) Creatinine 8.6 mg/dL (0.6-1.0) Estimated GFR (Cockcroft-Gault) 5.8 BUN/Creatinine Ratio 8 (6-20) Glucose Level 344 mg/dL (70-99) Lactic Acid Level 1.1 mmol/L (0.4-2.0) Calcium Level 8.3 mg/dL (8.5-10.1) Magnesium Level 2.5 mg/dL (1.8-2.4) Total Bilirubin 0.3 mg/dL (0.2-1.0) Aspartate Amino Transf (AST/SGOT) 62 U/L (15-37) Alanine Aminotransferase (ALT/SGPT) 30 U/L (14-59) Alkaline Phosphatase 116 U/L (46-116) C-Reactive Protein, Quantitative 47.9 mg/L (0-3.3) Total Protein 7.5 g/dL (6.4-8.2) Albumin 2.6 g/dL (3.4-5.0) Albumin/Globulin Ratio 0.5 (1.0-1.7) Glucose (Fingerstick) 183 mg/dL (70-99) VTE Prophylaxis Ordered VTE Prophylaxis Devices: Yes VTE Pharmacological Prophylaxi: Yes Assessment/Plan Assessment/Plan pain to left foot and right BKA on 12/05 diabetes mellitus end-stage renal disease on hemodialysis Patient had just been seen in the ED at [place] recently and placed in [facility]. left rehab assignment, AMA, Acute Anemia chronic renal disease Anasarca - Hypothyroidism - on replacement therapy Dyslipidemia malnutrition polysubstance abuse hx Diffuse moderate to advanced atherosclerotic plaque in the lower EXT arteries with moderate stenosis in the mid SFA, Right lower extremity angiography with subsequent angioplasty of the right superficial femoral artery and anterior tibial artery SEPTEMBER 2018 HARDEEP MUÑOZ MD Dec 14, 2018 08:52
[2018-12-14] MEDS ORDERED: ALBUTEROL SULFATE 2.5 MG/3 ML NEBU. INH PRN (09:00)
[2018-12-14] MEDS ORDERED: ACETAMINOPHEN 325 MG TABLET. PO PRN (09:00)
[2018-12-14] MEDS: INSULIN LISPRO 300 UNITS/3 ML VIAL. SQ SCH ×3 (09:00→17:00)
[2018-12-14] MEDS ORDERED: ALPRAZolam 0.5 MG TABLET PO PRN (09:00)
[2018-12-14] MEDS ORDERED: fentaNYL PF VIAL 100 MCG/2 ML VIAL IV PRN (09:15)
--- NOTE | 2018-12-14 09:35 | PDOC ---
Provider Note Provider Note Vascular Pt is known to us, POD#9 of right BKA and left 5th toe amp site debridement. S/p angioplasty Left Anterior tib which is her only run off vessel to her left foot 12/07/18 She is back in the hospital due a recent fall on her stump and associated pain. Patient reports jail "wasn't helping her." Reports she left jail and went back to her house at which time patient fell and hurt both the right foot and left BKA stump. She did not come in with a wound vac, unsure how long it has been off. I saw her prior to starting dialysis this morning. She complains of pain to left foot and right BKA. I do not see plavix or aspirin on pts med list. O: Afebrile, Hypertensive Pt is crying and distressed Her right BKA stump incision is clean, dry and intact. There is small area of minimal bleeding through medial incision. There are no areas of necrosis. Stump is soft, no hematoma present. No erythema. Left 5th toe amputation site is with fatty slough tissue throughout wound base. No granulation tissue present. Wound edges are clean, no signs of ischemia or necrosis. Imaging: plain imaging of left foot and rt BKA show no acute osseous injury. A/P: 58 year- old female with ESRD on HD, PAD POD#9 of right BKA, left foot debridement with vac placement S/p Left AT angioplasty 12/07/18 (only runoff vessel to left foot) - BKA stump incision is intact, minimal bleeding, no hematoma. No intervention needed. - Left toe amp site is with fatty slough throughout wound, no granulation tissue, but no signs of necrosis. Will require further debridement once arterial circulation confirmed and adequate, sometime next week. Continue wound care for now - discussed with ANSHU RN. - Pt should be on antiplatelet therapy, do not see ASA or plavix on inpt or home med list - will add. Will get arterial US to ensure patency to left AT after recent angioplasty. MARK MITCHELL Dec 14, 2018 09:35
[2018-12-14] MEDS ORDERED: IV NORMAL SALINE 1000ML BAG 1,000 ML IV PRN ×2 (09:38)
[2018-12-14] MEDS ORDERED: ACETAMINOPHEN 500 MG TABLET PO PRN (09:45)
[2018-12-14] MEDS ORDERED: DIALYSIS PATIENT. MC PRN (09:45)
[2018-12-14] MEDS ORDERED: diphenhydrAMINE 50 MG/ML VIAL IV PRN ×2 (09:45)
--- NOTE | 2018-12-14 10:33 | PDOC2 ---
CONSULT Date of Consult Date of Consult DATE: 12/14/18 TIME: 10:31 Reason for Consult Reason for Consult: ESRD Source Source: Chart review History of Present Illness Reason for Visit: 58-year-old AA female with past medical history of diabetes, end-stage renal disease on hemodialysis Monday/Monday/Monday presents with report of chronic pain to left foot at site of recent toe amputation and right BKA which has been worse today. Patient reports was recently admitted for procedure- amputation to left lateral toes. Patient reports [facility]way "wasn't helping her." Reports she left half-way and went back to her house at which time patient fell and hurt both the right foot and left BKA stump. Reports "pain is out of control" Chronic pain and non compliance- left AMA many times in past few weeks from [facility] and [facility] Past Medical History Cardiovascular: CHF, HTN, Hyperlipidemia, Other Pulmonary: Asthma, COPD CENTRAL NERVOUS SYSTEM: Periperal neuropathy GI: No pertinent hx Heme/Onc: No pertinent hx Hepatobiliary: No pertinent hx Psych: Anxiety Rheumatologic: Fibromyalgia Infectious disease: No pertinent hx Renal/: Chronic renal failure Endocrine: Diabetes, Hypothyroidism, Hyperparathyroidism Past Surgical History Past Surgical History: Other Family History Family History: High Cholestrol, Hypertension, Other Social History ALCOHOL: none Drugs: Cocaine, Marijuana Lives: with Family Current Problem List Problem List Problems Medical Problems: (1) Fall Status: Acute (2) Hyperglycemia Status: Acute (3) Hyperkalemia Status: Acute Current Medications Current Medications Current Medications Fentanyl Citrate (Fentanyl 2ml Vial) 50 mcg 1X ONCE IV Last administered on 12/14/18at 02:52; Start 12/14/18 at 01:30; Stop 12/14/18 at 01:32; Status DC Ondansetron HCl (Zofran) 4 mg 1X ONCE IV Last administered on 12/14/18at 02:52; Start 12/14/18 at 01:30; Stop 12/14/18 at 01:32; Status DC Famotidine (Pepcid Vial) 20 mg 1X ONCE IVP Last administered on 12/14/18at 02:52; Start 12/14/18 at 01:30; Stop 12/14/18 at 01:32; Status DC Mupirocin (Bactroban) 1 herber 1X ONCE TP Last administered on 12/14/18at 02:52; Start 12/14/18 at 01:45; Stop 12/14/18 at 01:46; Status DC Mupirocin (Bactroban) 1 herber 1X ONCE TP Last administered on 12/14/18at 02:52; Start 12/14/18 at 02:30; Stop 12/14/18 at 02:31; Status DC Insulin Human Regular (HumuLIN R VIAL) 10 unit 1X ONCE IV ; Start 12/14/18 at 03:30; Stop 12/14/18 at 03:35; Status DC Ondansetron HCl (Zofran) 4 mg PRN Q8HRS PRN IV NAUSEA/VOMITING; Start 12/14/18 at 04:00; Stop 12/15/18 at 03:59 Fentanyl Citrate (Fentanyl 2ml Vial) 50 mcg PRN Q2HR PRN IV PAIN Last administered on 12/14/18at 09:00; Start 12/14/18 at 04:00; Stop 12/14/18 at 09:05; Status DC Insulin Human Lispro (HumaLOG) 0-5 UNITS TIDWMEALS SQ Last administered on 12/14/18at 09:00; Start 12/14/18 at 08:00 Dextrose (Dextrose 50%-Water Syringe) 12.5 gm PRN Q15MIN PRN IV SEE COMMENTS; Start 12/14/18 at 04:00 Dextrose 250 ml PRN Q15MIN PRN IV SEE COMMENTS; Start 12/14/18 at 04:00 Albuterol Sulfate (Ventolin Neb Soln) 2.5 mg PRN BID PRN INH SHORTNESS OF BREATH; Start 12/14/18 at 09:00 Alprazolam (Xanax) 0.5 mg PRN TID PRN PO ANXIETY / AGITATION; Start 12/14/18 at 09:00 Amlodipine Besylate (Norvasc) 10 mg DAILY PO ; Start 12/14/18 at 09:00 Atorvastatin Calcium (Lipitor) 40 mg HS PO ; Start 12/14/18 at 21:00 Carvedilol (Coreg) 6.25 mg BIDWMEALS PO ; Start 12/14/18 at 09:00 Clonidine HCl (Catapres Tts-2) 1 patch WEEKLY TD ; Start 12/14/18 at 09:00 Vitamin B Complex/ Vitamin C (Pinky-Shreya) 1 tab DAILY PO ; Start 12/14/18 at 09:00 Acetaminophen/ Hydrocodone Bitart (Lortab 10/325) 1 tab PRN Q4HRS PRN PO MODERATE TO SEVERE PAIN; Start 12/14/18 at 09:00 Latanoprost (Xalatan) 1 drop HS OU ; Start 12/14/18 at 21:00 Levothyroxine Sodium (Synthroid) 50 mcg DAILY06 PO ; Start 12/14/18 at 09:00 Lisinopril (Prinivil) 20 mg DAILY PO ; Start 12/14/18 at 09:00 Prochlorperazine Maleate (Compazine) 5 mg PRN TID PRN PO NAUSEA; Start 12/14/18 at 09:00 Sertraline HCl (Zoloft) 50 mg DAILY PO ; Start 12/14/18 at 09:00 Acetaminophen (Tylenol) 650 mg PRN Q6HRS PRN PO MILD PAIN / TEMP; Start 12/14/18 at 09:00 Cephalexin HCl (Keflex) 500 mg TID PO ; Start 12/14/18 at 09:00 Amylase/Lipase/ Protease (Zenpep 5,000) 1 cap TIDWMEALS PO ; Start 12/14/18 at 09:00 Famotidine (Pepcid) 20 mg QHS PO ; Start 12/14/18 at 21:00; Status Cancel Pantoprazole Sodium (Protonix) 40 mg DAILYAC PO ; Start 12/14/18 at 09:00 Fentanyl Citrate (Fentanyl 2ml Vial) 75 mcg PRN Q2HR PRN IV PAIN; Start 12/14/18 at 09:15 Clopidogrel Bisulfate (Plavix) 75 mg DAILYWBKFT PO ; Start 12/14/18 at 10:00 Sodium Chloride 1,000 ml @ 1,000 mls/hr Q1H PRN IV hypotension; Start 12/14/18 at 09:38; Stop 12/14/18 at 15:37 Acetaminophen (Tylenol) 500 mg 1X PRN PRN PO MILD PAIN / TEMP; Start 12/14/18 at 09:45; Stop 12/15/18 at 09:44 Diphenhydramine HCl (Benadryl) 25 mg 1X PRN PRN IV ITCHING; Start 12/14/18 at 09:45; Stop 12/15/18 at 09:44 Diphenhydramine HCl (Benadryl) 25 mg 1X PRN PRN IV ITCHING; Start 12/14/18 at 09:45; Stop 12/15/18 at 09:44 Sodium Chloride 1,000 ml @ 400 mls/hr Q2H30M PRN IV PATENCY; Start 12/14/18 at 09:38; Stop 12/14/18 at 21:37 Info (PHARMACY MONITORING -- do not chart) 1 each PRN DAILY PRN MC SEE COMMENTS; Start 12/14/18 at 09:45 Active Scripts Active Keflex (Cephalexin) 500 Mg Capsule 1 Cap PO TID Pinky-Shreya Tablet (Folic Acid/Vitamin B Comp W-C) 0.8 Mg Tablet 1 Tab PO DAILY Hydrocodone-Apap 10-325 (Hydrocodone Bit/Acetaminophen) 1 Tab Tablet 1 Tab PO PRN Q4HRS PRN [Darbepoetin Jarrett In Polysorbat] 60 MCG/0.3 ML Disp.syrin 60 Mcg SQ WEEKLYHS 30 Days Alprazolam 0.5 Mg Tablet 0.5 Mg PO PRN TID PRN MDD 1 Tylenol (Acetaminophen) 325 Mg Capsule 650 Mg PO Q6-8HRS PRN Zantac (Ranitidine Hcl) 300 Mg Tablet 1 Tab PO QHS Compazine (Prochlorperazine Maleate) 5 Mg Tablet 5 Mg PO PRN TID PRN 10 Days [Pantoprazole] 40 MG Tablet. 40 Mg PO DAILYAC 30 Days Reported Zoloft (Sertraline Hcl) 50 Mg Tablet 50 Mg PO DAILY Lisinopril 20 Mg Tablet 20 Mg PO DAILY Coreg (Carvedilol) 6.25 Mg Tablet 6.25 Mg PO [address]ELORENA Frey Dr 6,000 Units Capsule (Lipase/Protease/Amylase) 1 Each Capsule. 1 Tab PO TID Proair Hfa (Albuterol Sulfate) 8.5 Gm Hfa.aer.ad 2 Puff INH BID PRN Levothyroxine Sodium 50 Mcg Tablet 1 Tab PO DAILY Clonidine Tts-2 (Clonidine) 1 Each Patch.tdwk 1 Patch TD WEEKLY Amlodipine Besylate 5 Mg Tablet 10 Mg PO DAILY Atorvastatin Calcium 40 Mg Tablet 40 Mg PO HS Latanoprost 2.5 Ml Drops 1 Drop EACHEYE HS Allergies Allergies: Coded Allergies: morphine (Verified Allergy, Intermediate, Itching, 1/1/19) ROS Review of System Per HPI Physical Exam Physical Exam General: NAD HEENT: OM moist , On RA Lungs: Clear to auscultation, no acc muscle use Heart: S1S2, RRR Abdomen: Normal bowel sounds, Soft, No tenderness, Extremities: Skin: No rash Neuro: Grossly normal No [place] Vital Signs Vital Signs Date Time Temp Pulse Resp B/P (MAP) Pulse Ox O2 Delivery O2 Flow Rate FiO2 12/14/18 09:00 Room Air 12/14/18 06:19 90 16 195/81 (119) 94 12/14/18 05:00 98.4 98.4 Assessment & Plan ESRD - On HD MWF Chronic non compliance Seen on HD , Tolerating well, 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, Eddie Daniels ACcess- Permacath, Failed AVF AVG placed in September 2018 at [facility] - Left upper arm brachial artery to brachial vein arterial to venous graft placement using PTFE graft. Use per vascular Chronic severe Non compliance with Dialysis as OP as well during hospitalizations- leaves AMA Severe peripheral arterial disease - Gangrene of right FOOT 3 toes of foot s/p RT BKA 12/05/18 PVD s/p balloon angioplasty and stent placement LLE, 10/15 Left 5th digit amputation -recent Diabetes w peripheral neuropathy Anemia - Hold ARLIN BP high polysubstance abuse hx Labs Labs Laboratory Tests Test 12/14/18 02:35 12/14/18 07:25 White Blood Count 11.5 x10^3/uL (4.0-11.0) Red Blood Count 3.27 x10^6/uL (3.50-5.40) Hemoglobin 9.8 g/dL (12.0-15.5) Hematocrit 29.2 % (36.0-47.0) Mean Corpuscular Volume 89 fL (79-100) Mean Corpuscular Hemoglobin 30 pg (25-35) Mean Corpuscular Hemoglobin Concent 34 g/dL (31-37) Red Cell Distribution Width 16.5 % (11.5-14.5) Platelet Count 407 x10^3/uL (140-400) Neutrophils (%) (Auto) 77 % (31-73) Lymphocytes (%) (Auto) 13 % (24-48) Monocytes (%) (Auto) 9 % (0-9) Eosinophils (%) (Auto) 0 % (0-3) Basophils (%) (Auto) 1 % (0-3) Neutrophils # (Auto) 8.8 x10^3/uL (1.8-7.7) Lymphocytes # (Auto) 1.5 x10^3/uL (1.0-4.8) Monocytes # (Auto) 1.0 x10^3/uL (0.0-1.1) Eosinophils # (Auto) 0.0 x10^3/uL (0.0-0.7) Basophils # (Auto) 0.1 x10^3/uL (0.0-0.2) Erythrocyte Sedimentation Rate 120 (0-25) Sodium Level 137 mmol/L (136-145) Potassium Level 5.8 mmol/L (3.5-5.1) Chloride Level 97 mmol/L (98-107) Carbon Dioxide Level 30 mmol/L (21-32) Anion Gap 10 (6-14) Blood Urea Nitrogen 68 mg/dL (7-20) Creatinine 8.6 mg/dL (0.6-1.0) Estimated GFR (Cockcroft-Gault) 5.8 BUN/Creatinine Ratio 8 (6-20) Glucose Level 344 mg/dL (70-99) Lactic Acid Level 1.1 mmol/L (0.4-2.0) Calcium Level 8.3 mg/dL (8.5-10.1) Magnesium Level 2.5 mg/dL (1.8-2.4) Total Bilirubin 0.3 mg/dL (0.2-1.0) Aspartate Amino Transf (AST/SGOT) 62 U/L (15-37) Alanine Aminotransferase (ALT/SGPT) 30 U/L (14-59) Alkaline Phosphatase 116 U/L (46-116) C-Reactive Protein, Quantitative 47.9 mg/L (0-3.3) Total Protein 7.5 g/dL (6.4-8.2) Albumin 2.6 g/dL (3.4-5.0) Albumin/Globulin Ratio 0.5 (1.0-1.7) Glucose (Fingerstick) 183 mg/dL (70-99) Laboratory Tests Test 12/14/18 02:35 12/14/18 07:25 White Blood Count 11.5 x10^3/uL (4.0-11.0) Red Blood Count 3.27 x10^6/uL (3.50-5.40) Hemoglobin 9.8 g/dL (12.0-15.5) Hematocrit 29.2 % (36.0-47.0) Mean Corpuscular Volume 89 fL (79-100) Mean Corpuscular Hemoglobin 30 pg (25-35) Mean Corpuscular Hemoglobin Concent 34 g/dL (31-37) Red Cell Distribution Width 16.5 % (11.5-14.5) Platelet Count 407 x10^3/uL (140-400) Neutrophils (%) (Auto) 77 % (31-73) Lymphocytes (%) (Auto) 13 % (24-48) Monocytes (%) (Auto) 9 % (0-9) Eosinophils (%) (Auto) 0 % (0-3) Basophils (%) (Auto) 1 % (0-3) Neutrophils # (Auto) 8.8 x10^3/uL (1.8-7.7) Lymphocytes # (Auto) 1.5 x10^3/uL (1.0-4.8) Monocytes # (Auto) 1.0 x10^3/uL (0.0-1.1) Eosinophils # (Auto) 0.0 x10^3/uL (0.0-0.7) Basophils # (Auto) 0.1 x10^3/uL (0.0-0.2) Erythrocyte Sedimentation Rate 120 (0-25) Sodium Level 137 mmol/L (136-145) Potassium Level 5.8 mmol/L (3.5-5.1) Chloride Level 97 mmol/L (98-107) Carbon Dioxide Level 30 mmol/L (21-32) Anion Gap 10 (6-14) Blood Urea Nitrogen 68 mg/dL (7-20) Creatinine 8.6 mg/dL (0.6-1.0) Estimated GFR (Cockcroft-Gault) 5.8 BUN/Creatinine Ratio 8 (6-20) Glucose Level 344 mg/dL (70-99) Lactic Acid Level 1.1 mmol/L (0.4-2.0) Calcium Level 8.3 mg/dL (8.5-10.1) Magnesium Level 2.5 mg/dL (1.8-2.4) Total Bilirubin 0.3 mg/dL (0.2-1.0) Aspartate Amino Transf (AST/SGOT) 62 U/L (15-37) Alanine Aminotransferase (ALT/SGPT) 30 U/L (14-59) Alkaline Phosphatase 116 U/L (46-116) C-Reactive Protein, Quantitative 47.9 mg/L (0-3.3) Total Protein 7.5 g/dL (6.4-8.2) Albumin 2.6 g/dL (3.4-5.0) Albumin/Globulin Ratio 0.5 (1.0-1.7) Glucose (Fingerstick) 183 mg/dL (70-99) Review All relevant outside records, renal labs, imaging studies, telemetry/EKG's were reviewed. DOMINIQUE TSE MD Dec 14, 2018 10:33
[2018-12-14] MEDS: HYDROcodone/APAP 10/325 1 TAB TABLET PO PRN ×3 (13:17→22:19)
[2018-12-14] MEDS: CEPHALEXIN 250 MG CAPSULE. PO SCH ×3 (13:18→21:00)
[2018-12-14] MEDS: SERTRALINE 50 MG TABLET. PO SCH (13:18)
[2018-12-14] MEDS: LEVOTHYROXINE 50 MCG TABLET PO SCH (13:18)
[2018-12-14] MEDS: PANTOPRAZOLE 40 MG TABLET.DR. PO SCH (13:18)
[2018-12-14] MEDS: cloNIDine TTS-2 1 PATCH PATCH TD SCH (13:18)
[2018-12-14] MEDS: CLOPIDOGREL BISULFATE 75 MG TABLET PO SCH (13:18)
[2018-12-14] MEDS: CARVEDILOL 6.25 MG TABLET. PO SCH ×2 (13:19→17:32)
[2018-12-14] MEDS: LISINOPRIL 20 MG TABLET PO SCH (13:19)
[2018-12-14] MEDS: FOLIC/VIT B COMP W-C (RENAL) TABLET. PO SCH (13:19)
[2018-12-14] MEDS: amLODIPine BESYLATE 10 MG TABLET PO SCH (13:19)
[2018-12-14 14:30] VITALS: BP 179/76
[2018-12-14 15:18] VITALS: BP 168/74
--- NOTE | 2018-12-14 15:34 | RAD ---
Left lower extremity arterial duplex ultrasound 12/14/2018 INDICATION: Left lower extremity pain. Nonhealing wound, left foot. Recent amputation and subsequent debridement. Multiple recent angiograms interventions throughout the left lower extremity. Discussion: Ultrasound evaluation of the major arteries of left lower extremity was performed including color Doppler imaging spectral analysis. Severe diffuse atherosclerotic vascular disease is seen. Monophasic waveforms are seen throughout the lower extremity. Etiology for this is uncertain as no hemodynamically significant aortoiliac stenosis was identified on recent angiogram. Profunda artery appears grossly patent. Monophasic flow seen throughout the left SFA. No focal elevation of velocity or significant decrease in velocity suggesting high-grade stenosis is identified. Popliteal artery is densely calcified but appears to remain patent. Posterior tibial artery is occluded, as seen on prior study. Anterior tibial artery remains grossly patent. The dorsalis pedis artery is occluded. Findings all present on prior angiography. IMPRESSION: Severe diffuse atherosclerotic vascular disease. Left common and superficial femoral, popliteal, and anterior tibial arteries remain grossly patent. Posterior tibial artery and dorsalis pedis artery remain occluded. Electronically signed by: Mario Alberto Clay MD (12/14/2018 3:31 PM) [id number]
--- NOTE | 2018-12-14 15:42 | NUR ---
Wound Care Wound care consult for left lateral foot wound. Pt has open amp site on left lateral foot, cleansed and measured area, unable to measure depth due to pain, applied Aquacel Ag, gauze pad and Kerlix. RBKA dressing recently changed, did not undress wound. Pt also has open abscess to right groin that is draining thick purulent drainage with expression. Packed with 1/4" iodoform gauze and covered with Bandaid. Pt also has indurated area in left groin that is not open or draining. Cleansed area and left MARQUIS. Pt was resistive to dressing changes and was tearful and in excruciating pain throughout procedure. Pt educated to leave dressings in place until Monday when her nurse will change them. WC will continue to follow for possible changes.
[2018-12-14 19:02] VITALS: BP 161/45
[2018-12-14] MEDS: LATANOPROST 0.005% OPHTH SOLUTION 2.5ML BOTTLE. OU SCH (21:00)
[2018-12-14] MEDS: ATORVASTATIN CALCIUM 40 MG TABLET. PO SCH (21:00)
[2018-12-14] MEDS ORDERED: FAMOTIDINE 20 MG TABLET. PO SCH (21:00)
[2018-12-14 23:00] VITALS: BP 175/52
[2018-12-15 03:34] VITALS: BP 128/82
[2018-12-15] MEDS: LEVOTHYROXINE 50 MCG TABLET PO SCH (06:00)
[2018-12-15 07:15] VITALS: BP 189/80
[2018-12-15] MEDS: PANTOPRAZOLE 40 MG TABLET.DR. PO SCH (07:30)
--- NOTE | 2018-12-15 07:57 | NUR ---
Cant get IV access on patient, 2 RN's tried multiple times. Called Dr. Quinn, OK to leave IV out.
[2018-12-15] MEDS: CLOPIDOGREL BISULFATE 75 MG TABLET PO SCH (08:00)
[2018-12-15] MEDS: INSULIN LISPRO 300 UNITS/3 ML VIAL. SQ SCH ×3 (08:00→16:49)
[2018-12-15] MEDS: CARVEDILOL 6.25 MG TABLET. PO SCH ×2 (08:00→16:48)
[2018-12-15] MEDS: HYDROcodone/APAP 10/325 1 TAB TABLET PO PRN ×3 (08:03→20:11)
[2018-12-15] MEDS: PROCHLORPERAZINE 5 MG TABLET. PO PRN (08:04)
[2018-12-15] MEDS: SERTRALINE 50 MG TABLET. PO SCH (09:00)
[2018-12-15] MEDS: CEPHALEXIN 250 MG CAPSULE. PO SCH ×3 (09:00→21:00)
[2018-12-15] MEDS: LISINOPRIL 20 MG TABLET PO SCH (09:00)
[2018-12-15] MEDS: amLODIPine BESYLATE 10 MG TABLET PO SCH (09:00)
[2018-12-15] MEDS: FOLIC/VIT B COMP W-C (RENAL) TABLET. PO SCH (09:00)
--- NOTE | 2018-12-15 09:10 | PDOC ---
PROGRESS NOTES Chief Complaint Chief Complaint A/P: Right stump pain - POD#10 s/p BKA, I have d/w her and Dr. Poole from vascular surgery. HTN urgency - coreg and amlodipine ESRD - need dialysis regularly outpatient. Consulted nephrology. BUN normalized she should be dialyzed today Acute Anemia - of chronic renal disease, will f/u outpatient CBC at dialysis, symptomatic. 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 Nonvisualization of flow in the distal STRAP SETTER suggests occlusion, age indeterminate. FEN- Renal diet PPX - heparin FULL CODE Dispo - inpatient for now. I think palliative care should be involved at some point. She is not making sound decisions. I will attempt to contact her daughter. 36 minutes on chart review, exam, treatment, consultation History of Present Illness History of Present Illness Ms. Salazar, is a 57 year old F w/ PMHx ESRD on HD M/W/F presents via EMS with reports of a recent fall on her stump and associated pain. Reports she left [facility] and went back to her house at which time patient fell and hurt both the right foot and left BKA stump. She did not come in with a wound vac, unsure how long it has been off. She complains of pain to left foot and right BKA that is "out of control". She was also admitted 2 weeks ago, underwent emergent dialysis and transfusion of 1 u PRBC for a potassium 6.6, BUN 102 and Hb 6.8, left AMA from that hospital stay. She just left [facility] 3 weeks ago AMA, was planning a RLE angiogram. She returned to the hospital and is now POD#10 of right BKA and left 5th toe amp site debridement. S/p angioplasty Left Anterior tib which is her only run off vessel to her left foot 12/07/18. Overnight states she was up all night not getting her pain medication. She has been very irritable with nursing staff. She was smoking in the bathroom this morning and lost IV access. She is c/o oozing of her dressing and some nausea with regurgitation as well. Vitals Vitals Vital Signs Date Time Temp Pulse Resp B/P (MAP) Pulse Ox O2 Delivery O2 Flow Rate FiO2 12/15/18 08:05 94 Room Air 12/15/18 07:15 98.4 88 20 189/80 (116) 98.4 Physical Exam General: Alert, moderate distress Lungs: Clear Abdomen: Normal bowel sounds Extremities: No cyanosis, Normal pulses Labs LABS Laboratory Tests Test 12/14/18 13:09 12/14/18 16:57 12/14/18 20:34 12/15/18 07:24 Glucose (Fingerstick) 153 mg/dL (70-99) 131 mg/dL (70-99) 158 mg/dL (70-99) 137 mg/dL (70-99) Assessment and Plan Assessmemt and Plan Problems Medical Problems: (1) Fall Status: Acute (2) Hyperglycemia Status: Acute (3) Hyperkalemia Status: Acute Comment Review of Relevant I have reviewed the following items pamela (where applicable) has been applied. Labs Laboratory Tests Test 12/14/18 02:35 12/14/18 07:25 12/14/18 13:09 12/14/18 16:57 White Blood Count 11.5 x10^3/uL (4.0-11.0) Red Blood Count 3.27 x10^6/uL (3.50-5.40) Hemoglobin 9.8 g/dL (12.0-15.5) Hematocrit 29.2 % (36.0-47.0) Mean Corpuscular Volume 89 fL (79-100) Mean Corpuscular Hemoglobin 30 pg (25-35) Mean Corpuscular Hemoglobin Concent 34 g/dL (31-37) Red Cell Distribution Width 16.5 % (11.5-14.5) Platelet Count 407 x10^3/uL (140-400) Neutrophils (%) (Auto) 77 % (31-73) Lymphocytes (%) (Auto) 13 % (24-48) Monocytes (%) (Auto) 9 % (0-9) Eosinophils (%) (Auto) 0 % (0-3) Basophils (%) (Auto) 1 % (0-3) Neutrophils # (Auto) 8.8 x10^3/uL (1.8-7.7) Lymphocytes # (Auto) 1.5 x10^3/uL (1.0-4.8) Monocytes # (Auto) 1.0 x10^3/uL (0.0-1.1) Eosinophils # (Auto) 0.0 x10^3/uL (0.0-0.7) Basophils # (Auto) 0.1 x10^3/uL (0.0-0.2) Erythrocyte Sedimentation Rate 120 (0-25) Sodium Level 137 mmol/L (136-145) Potassium Level 5.8 mmol/L (3.5-5.1) Chloride Level 97 mmol/L (98-107) Carbon Dioxide Level 30 mmol/L (21-32) Anion Gap 10 (6-14) Blood Urea Nitrogen 68 mg/dL (7-20) Creatinine 8.6 mg/dL (0.6-1.0) Estimated GFR (Cockcroft-Gault) 5.8 BUN/Creatinine Ratio 8 (6-20) Glucose Level 344 mg/dL (70-99) Lactic Acid Level 1.1 mmol/L (0.4-2.0) Calcium Level 8.3 mg/dL (8.5-10.1) Magnesium Level 2.5 mg/dL (1.8-2.4) Total Bilirubin 0.3 mg/dL (0.2-1.0) Aspartate Amino Transf (AST/SGOT) 62 U/L (15-37) Alanine Aminotransferase (ALT/SGPT) 30 U/L (14-59) Alkaline Phosphatase 116 U/L (46-116) C-Reactive Protein, Quantitative 47.9 mg/L (0-3.3) Total Protein 7.5 g/dL (6.4-8.2) Albumin 2.6 g/dL (3.4-5.0) Albumin/Globulin Ratio 0.5 (1.0-1.7) Glucose (Fingerstick) 183 mg/dL (70-99) 153 mg/dL (70-99) 131 mg/dL (70-99) Test 12/14/18 20:34 12/15/18 07:24 Glucose (Fingerstick) 158 mg/dL (70-99) 137 mg/dL (70-99) Laboratory Tests Test 12/14/18 13:09 12/14/18 16:57 12/14/18 20:34 12/15/18 07:24 Glucose (Fingerstick) 153 mg/dL (70-99) 131 mg/dL (70-99) 158 mg/dL (70-99) 137 mg/dL (70-99) Microbiology 12/14/18 Blood Culture - Preliminary, Resulted NO GROWTH AFTER 1 DAY Medications Current Medications Fentanyl Citrate (Fentanyl 2ml Vial) 50 mcg 1X ONCE IV Last administered on 12/14/18at 02:52; Start 12/14/18 at 01:30; Stop 12/14/18 at 01:32; Status DC Ondansetron HCl (Zofran) 4 mg 1X ONCE IV Last administered on 12/14/18at 02:52; Start 12/14/18 at 01:30; Stop 12/14/18 at 01:32; Status DC Famotidine (Pepcid Vial) 20 mg 1X ONCE IVP Last administered on 12/14/18at 02:52; Start 12/14/18 at 01:30; Stop 12/14/18 at 01:32; Status DC Mupirocin (Bactroban) 1 herber 1X ONCE TP Last administered on 12/14/18at 02:52; Start 12/14/18 at 01:45; Stop 12/14/18 at 01:46; Status DC Mupirocin (Bactroban) 1 herber 1X ONCE TP Last administered on 12/14/18at 02:52; Start 12/14/18 at 02:30; Stop 12/14/18 at 02:31; Status DC Insulin Human Regular (HumuLIN R VIAL) 10 unit 1X ONCE IV ; Start 12/14/18 at 03:30; Stop 12/14/18 at 03:35; Status DC Ondansetron HCl (Zofran) 4 mg PRN Q8HRS PRN IV NAUSEA/VOMITING Last administered on 12/15/18at 00:08; Start 12/14/18 at 04:00; Stop 12/15/18 at 03:59; Status DC Fentanyl Citrate (Fentanyl 2ml Vial) 50 mcg PRN Q2HR PRN IV PAIN Last administered on 12/14/18at 09:00; Start 12/14/18 at 04:00; Stop 12/14/18 at 09:05; Status DC Insulin Human Lispro (HumaLOG) 0-5 UNITS TIDWMEALS SQ Last administered on 12/14/18at 13:26; Start 12/14/18 at 08:00 Dextrose (Dextrose 50%-Water Syringe) 12.5 gm PRN Q15MIN PRN IV SEE COMMENTS; Start 12/14/18 at 04:00 Dextrose 250 ml PRN Q15MIN PRN IV SEE COMMENTS; Start 12/14/18 at 04:00 Albuterol Sulfate (Ventolin Neb Soln) 2.5 mg PRN BID PRN INH SHORTNESS OF BREATH; Start 12/14/18 at 09:00 Alprazolam (Xanax) 0.5 mg PRN TID PRN PO ANXIETY / AGITATION; Start 12/14/18 at 09:00 Amlodipine Besylate (Norvasc) 10 mg DAILY PO Last administered on 12/14/18 13:26; Start 12/14/18 at 09:00 Atorvastatin Calcium (Lipitor) 40 mg HS PO ; Start 12/14/18 at 21:00 Carvedilol (Coreg) 6.25 mg BIDWMEALS PO Last administered on 12/14/18at 17:32; Start 12/14/18 at 09:00 Clonidine HCl (Catapres Tts-2) 1 patch WEEKLY TD Last administered on 12/14/18 13:25; Start 12/14/18 at 09:00 Vitamin B Complex/ Vitamin C (Pinky-Shreya) 1 tab DAILY PO Last administered on 12/14/18at 13:26; Start 12/14/18 at 09:00 Acetaminophen/ Hydrocodone Bitart (Lortab 10/325) 1 tab PRN Q4HRS PRN PO MODERATE TO SEVERE PAIN Last administered on 12/15/18at 08:05; Start 12/14/18 at 09:00 Latanoprost (Xalatan) 1 drop HS OU ; Start 12/14/18 at 21:00 Levothyroxine Sodium (Synthroid) 50 mcg DAILY06 PO Last administered on 12/14/18 13:25; Start 12/14/18 at 09:00 Lisinopril (Prinivil) 20 mg DAILY PO Last administered on 12/14/18 13:26; Start 12/14/18 at 09:00 Prochlorperazine Maleate (Compazine) 5 mg PRN TID PRN PO NAUSEA Last administered on 12/15/18at 08:05; Start 12/14/18 at 09:00 Sertraline HCl (Zoloft) 50 mg DAILY PO Last administered on 12/14/18at 13:25; Start 12/14/18 at 09:00 Acetaminophen (Tylenol) 650 mg PRN Q6HRS PRN PO MILD PAIN / TEMP; Start 12/14/18 at 09:00 Cephalexin HCl (Keflex) 500 mg TID PO Last administered on 12/14/18at 13:25; Start 12/14/18 at 09:00 Amylase/Lipase/ Protease (Zenpep 5,000) 1 cap TIDWMEALS PO Last administered on 12/14/18at 17:32; Start 12/14/18 at 09:00 Famotidine (Pepcid) 20 mg QHS PO ; Start 12/14/18 at 21:00; Status Cancel Pantoprazole Sodium (Protonix) 40 mg DAILYAC PO Last administered on 12/14/18at 13:25; Start 12/14/18 at 09:00 Fentanyl Citrate (Fentanyl 2ml Vial) 75 mcg PRN Q2HR PRN IV PAIN Last administered on 12/14/18at 11:20; Start 12/14/18 at 09:15 Clopidogrel Bisulfate (Plavix) 75 mg DAILYWBKFT PO Last administered on 12/14/18at 13:26; Start 12/14/18 at 10:00 Sodium Chloride 1,000 ml @ 1,000 mls/hr Q1H PRN IV hypotension; Start 12/14/18 at 09:38; Stop 12/14/18 at 15:37; Status DC Acetaminophen (Tylenol) 500 mg 1X PRN PRN PO MILD PAIN / TEMP; Start 12/14/18 at 09:45; Stop 12/15/18 at 09:44 Diphenhydramine HCl (Benadryl) 25 mg 1X PRN PRN IV ITCHING; Start 12/14/18 at 09:45; Stop 12/15/18 at 09:44 Diphenhydramine HCl (Benadryl) 25 mg 1X PRN PRN IV ITCHING; Start 12/14/18 at 09:45; Stop 12/15/18 at 09:44 Sodium Chloride 1,000 ml @ 400 mls/hr Q2H30M PRN IV PATENCY; Start 12/14/18 at 09:38; Stop 12/14/18 at 21:37; Status DC Info (PHARMACY MONITORING -- do not chart) 1 each PRN DAILY PRN MC SEE COMMENTS; Start 12/14/18 at 09:45 Active Scripts Active Keflex (Cephalexin) 500 Mg Capsule 1 Cap PO TID Pinky-Shreya Tablet (Folic Acid/Vitamin B Comp W-C) 0.8 Mg Tablet 1 Tab PO DAILY Hydrocodone-Apap 10-325 (Hydrocodone Bit/Acetaminophen) 1 Tab Tablet 1 Tab PO PRN Q4HRS PRN [Darbepoetin Jarrett In Polysorbat] 60 MCG/0.3 ML Disp.syrin 60 Mcg SQ WEEKLYHS 30 Days Alprazolam 0.5 Mg Tablet 0.5 Mg PO PRN TID PRN MDD 1 Tylenol (Acetaminophen) 325 Mg Capsule 650 Mg PO Q6-8HRS PRN Zantac (Ranitidine Hcl) 300 Mg Tablet 1 Tab PO QHS Compazine (Prochlorperazine Maleate) 5 Mg Tablet 5 Mg PO PRN TID PRN 10 Days [Pantoprazole] 40 MG Tablet.dr 40 Mg PO DAILYAC 30 Days Reported Zoloft (Sertraline Hcl) 50 Mg Tablet 50 Mg PO DAILY Lisinopril 20 Mg Tablet 20 Mg PO DAILY Coreg (Carvedilol) 6.25 Mg Tablet 6.25 Mg PO BIDWMEALS Shante Knowles 6,000 Units Capsule (Lipase/Protease/Amylase) 1 Each Capsule. 1 Tab PO TID Proair Hfa (Albuterol Sulfate) 8.5 Gm Hfa.aer.ad 2 Puff INH BID PRN Levothyroxine Sodium 50 Mcg Tablet 1 Tab PO DAILY Clonidine Tts-2 (Clonidine) 1 Each Patch.tdwk 1 Patch TD WEEKLY Amlodipine Besylate 5 Mg Tablet 10 Mg PO DAILY Atorvastatin Calcium 40 Mg Tablet 40 Mg PO HS Latanoprost 2.5 Ml Drops 1 Drop EACHEYE HS Vitals/I & O Vital Sign - Last 24 Hours 12/14/18 12/14/18 12/14/18 12/14/18 11:20 13:25 13:26 13:26 Pulse 84 84 B/P (MAP) 179/76 179/76 O2 Delivery Room Air Room Air 12/14/18 12/14/18 12/14/1819 13:26 14:30 15:18 17:32 Temp 98.4 98.4 Pulse 86 77 77 Resp 16 B/P (MAP) 179/76 179/76 (110) 168/74 (105) 168/74 Pulse Ox 96 O2 Delivery Room Air 12/14/18 12/14/18 12/14/18 12/15/18 19:02 22:19 23:00 00:50 Temp 98.0 97.6 98.0 97.6 Pulse 84 82 Resp 18 20 B/P (MAP) 161/45 (83) 175/52 (93) Pulse Ox 98 96 O2 Delivery Room Air Room Air Room Air Room Air 12/15/18 12/15/18 12/15/18 03:34 07:15 08:05 Temp 98.3 98.4 98.3 98.4 Pulse 84 88 Resp 18 20 B/P (MAP) 128/82 (97) 189/80 (116) Pulse Ox 94 99 94 O2 Delivery Room Air Room Air Room Air Intake and Output 12/14/18 12/14/18 12/15/18 14:59 22:59 06:59 Intake Total 240 ml 200 ml Output Total 150 ml Balance 240 ml 200 ml -150 ml FELI SHAH MD Dec 15, 2018 09:10
[2018-12-15] MEDS ORDERED: fentaNYL PF VIAL 100 MCG/2 ML VIAL IV PRN (09:15)
[2018-12-15 11:00] VITALS: BP 176/61
[2018-12-15] MEDS: NICOTINE 21MG PATCH. TD SCH (11:25)
--- NOTE | 2018-12-15 12:32 | NUR ---
Patient refusing P500 bed.
[2018-12-15] MEDS: fentaNYL 12MCG/HR PATCH 1 PATCH PATCH.TD72 TD SCH (12:42)
[2018-12-15] MEDS: ONDANSETRON ODT 4 MG TAB.RAPDIS. PO PRN (12:42)
[2018-12-15 19:35] VITALS: BP 203/74
[2018-12-15] MEDS: LATANOPROST 0.005% OPHTH SOLUTION 2.5ML BOTTLE. OU SCH (21:00)
[2018-12-15] MEDS: ATORVASTATIN CALCIUM 40 MG TABLET. PO SCH (21:00)
[2018-12-15 23:09] VITALS: BP 176/78
[2018-12-16] MEDS: HYDROcodone/APAP 10/325 1 TAB TABLET PO PRN ×4 (02:51→21:32)
[2018-12-16 03:00] VITALS: BP 188/78
[2018-12-16] MEDS: LEVOTHYROXINE 50 MCG TABLET PO SCH (06:00)
[2018-12-16 07:00] VITALS: BP 151/77
[2018-12-16] MEDS: INSULIN LISPRO 300 UNITS/3 ML VIAL. SQ SCH ×3 (08:00→17:00)
--- NOTE | 2018-12-16 08:06 | PDOC ---
PROGRESS NOTES Chief Complaint Chief Complaint A/P: Right stump pain - POD#10 s/p BKA, I have d/w her and Dr. Poole from vascular surgery. HTN urgency - coreg and amlodipine ESRD - need dialysis regularly outpatient. Consulted nephrology. BUN normalized she should be dialyzed today Acute Anemia - of chronic renal disease, will f/u outpatient CBC at dialysis, symptomatic. 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 Nonvisualization of flow in the distal [facility] suggests occlusion, age indeterminate. FEN- Renal diet PPX - heparin FULL CODE Dispo - inpatient for now. I think palliative care should be involved at some point. She is not making sound decisions. I will attempt to contact her daughter. 36 minutes on chart review, exam, treatment, consultation History of Present Illness History of Present Illness Ms. Salazar, is a 57 year old F w/ PMHx ESRD on HD M/W/F presents via EMS with reports of a recent fall on her stump and associated pain. Reports she left custodial AMA and went back to her house at which time patient fell and hurt both the right foot and left BKA stump. She did not come in with a wound vac, unsure how long it has been off. She complains of pain to left foot and right BKA that is "out of control". She was also admitted 2 weeks ago, underwent emergent dialysis and transfusion of 1 u PRBC for a potassium 6.6, BUN 102 and Hb 6.8, left AMA from that hospital stay. She just left [facility] 3 weeks ago AMA, was planning a RLE angiogram. She returned to the hospital and is now POD#10 of right BKA and left 5th toe amp site debridement. S/p angioplasty Left Anterior tib which is her only run off vessel to her left foot 12/07/18. 12/15: Overnight states she was up all night not getting her pain medication. She has been very irritable with nursing staff. She was smoking in the bathroom this morning and lost IV access. She is c/o oozing of her dressing and some nausea with regurgitation as well. Overnight was a better night. She refused labs and refused to work with PT/OT this morning. Was in better spirits after nursing staff gave candy cigarettes I approved. Nausea a bit better, dressings changed. No CP or SOB, but she states her pain is not well controlled. No tele events. Plan: Ok off tele Labs in AM Cont PT/OT Fentanyl patch in place. I have changed IV orders to only up to twice per day Vitals Vitals Vital Signs Date Time Temp Pulse Resp B/P (MAP) Pulse Ox O2 Delivery O2 Flow Rate FiO2 12/16/18 07:00 97.9 78 18 151/77 (101) 92 Room Air 97.9 Physical Exam General: Alert, moderate distress Lungs: Clear Abdomen: Normal bowel sounds Extremities: No cyanosis, Normal pulses Labs LABS Laboratory Tests Test 12/15/18 17:29 12/15/18 22:22 12/16/18 07:18 Glucose (Fingerstick) 115 mg/dL (70-99) 117 mg/dL (70-99) 87 mg/dL (70-99) Assessment and Plan Assessmemt and Plan Problems Medical Problems: (1) Fall Status: Acute (2) Hyperglycemia Status: Acute (3) Hyperkalemia Status: Acute Comment Review of Relevant I have reviewed the following items pamela (where applicable) has been applied. Labs Laboratory Tests Test 12/14/18 13:09 12/14/18 16:57 12/14/18 20:34 12/15/18 07:24 Glucose (Fingerstick) 153 mg/dL (70-99) 131 mg/dL (70-99) 158 mg/dL (70-99) 137 mg/dL (70-99) Test 12/15/18 17:29 12/15/18 22:22 12/16/18 07:18 Glucose (Fingerstick) 115 mg/dL (70-99) 117 mg/dL (70-99) 87 mg/dL (70-99) Laboratory Tests Test 12/15/18 17:29 12/15/18 22:22 12/16/18 07:18 Glucose (Fingerstick) 115 mg/dL (70-99) 117 mg/dL (70-99) 87 mg/dL (70-99) Microbiology 12/14/18 Blood Culture - Preliminary, Resulted NO GROWTH AFTER 1 DAY Medications Current Medications Fentanyl Citrate (Fentanyl 2ml Vial) 50 mcg 1X ONCE IV Last administered on 12/14/18 02:52; Start 12/14/18 at 01:30; Stop 12/14/18 at 01:32; Status DC Ondansetron HCl (Zofran) 4 mg 1X ONCE IV Last administered on 12/14/18at 02:52; Start 12/14/18 at 01:30; Stop 12/14/18 at 01:32; Status DC Famotidine (Pepcid Vial) 20 mg 1X ONCE IVP Last administered on 12/14/18at 02:52; Start 12/14/18 at 01:30; Stop 12/14/18 at 01:32; Status DC Mupirocin (Bactroban) 1 herber 1X ONCE TP Last administered on 12/14/18at 02:52; Start 12/14/18 at 01:45; Stop 12/14/18 at 01:46; Status DC Mupirocin (Bactroban) 1 herber 1X ONCE TP Last administered on 12/14/18at 02:52; Start 12/14/18 at 02:30; Stop 12/14/18 at 02:31; Status DC Insulin Human Regular (HumuLIN R VIAL) 10 unit 1X ONCE IV ; Start 12/14/18 at 03:30; Stop 12/14/18 at 03:35; Status DC Ondansetron HCl (Zofran) 4 mg PRN Q8HRS PRN IV NAUSEA/VOMITING Last administered on 12/15/18at 00:08; Start 12/14/18 at 04:00; Stop 12/15/18 at 03:59; Status DC Fentanyl Citrate (Fentanyl 2ml Vial) 50 mcg PRN Q2HR PRN IV PAIN Last administered on 12/14/18at 09:00; Start 12/14/18 at 04:00; Stop 12/14/18 at 09:05; Status DC Insulin Human Lispro (HumaLOG) 0-5 UNITS TIDWMEALS SQ Last administered on 12/14/18at 13:26; Start 12/14/18 at 08:00 Dextrose (Dextrose 50%-Water Syringe) 12.5 gm PRN Q15MIN PRN IV SEE COMMENTS; Start 12/14/18 at 04:00 Dextrose 250 ml PRN Q15MIN PRN IV SEE COMMENTS; Start 12/14/18 at 04:00 Albuterol Sulfate (Ventolin Neb Soln) 2.5 mg PRN BID PRN INH SHORTNESS OF BREATH; Start 12/14/18 at 09:00 Alprazolam (Xanax) 0.5 mg PRN TID PRN PO ANXIETY / AGITATION; Start 12/14/18 at 09:00; Stop 12/15/18 at 09:03; Status DC Amlodipine Besylate (Norvasc) 10 mg DAILY PO Last administered on 12/14/18 13:26; Start 12/14/18 at 09:00 Atorvastatin Calcium (Lipitor) 40 mg HS PO ; Start 12/14/18 at 21:00 Carvedilol (Coreg) 6.25 mg BIDWMEALS PO Last administered on 12/14/18at 17:32; Start 12/14/18 at 09:00 Clonidine HCl (Catapres Tts-2) 1 patch WEEKLY TD Last administered on 12/14/18 13:25; Start 12/14/18 at 09:00 Vitamin B Complex/ Vitamin C (Pinky-Shreya) 1 tab DAILY PO Last administered on 12/14/18 13:26; Start 12/14/18 at 09:00 Acetaminophen/ Hydrocodone Bitart (Lortab 10/325) 1 tab PRN Q4HRS PRN PO MODERATE TO SEVERE PAIN Last administered on 12/15/18at 08:05; Start 12/14/18 at 09:00; Stop 12/15/18 at 09:03; Status DC Latanoprost (Xalatan) 1 drop HS OU ; Start 12/14/18 at 21:00 Levothyroxine Sodium (Synthroid) 50 mcg DAILY06 PO Last administered on 12/14/18 13:25; Start 12/14/18 at 09:00 Lisinopril (Prinivil) 20 mg DAILY PO Last administered on 12/14/18 13:26; Start 12/14/18 at 09:00 Prochlorperazine Maleate (Compazine) 5 mg PRN TID PRN PO NAUSEA Last administered on 12/15/18 08:05; Start 12/14/18 at 09:00 Sertraline HCl (Zoloft) 50 mg DAILY PO Last administered on 12/14/18 13:25; Start 12/14/18 at 09:00 Acetaminophen (Tylenol) 650 mg PRN Q6HRS PRN PO MILD PAIN / TEMP; Start 12/14/18 at 09:00 Cephalexin HCl (Keflex) 500 mg TID PO Last administered on 12/14/18at 13:25; Start 12/14/18 at 09:00 Amylase/Lipase/ Protease (Zenpep 5,000) 1 cap TIDWMEALS PO Last administered on 12/14/18at 17:32; Start 12/14/18 at 09:00 Famotidine (Pepcid) 20 mg QHS PO ; Start 12/14/18 at 21:00; Status Cancel Pantoprazole Sodium (Protonix) 40 mg DAILYAC PO Last administered on 12/14/18at 13:25; Start 12/14/18 at 09:00 Fentanyl Citrate (Fentanyl 2ml Vial) 75 mcg PRN Q2HR PRN IV PAIN Last administered on 12/14/18at 11:20; Start 12/14/18 at 09:15; Stop 12/15/18 at 09:03; Status DC Clopidogrel Bisulfate (Plavix) 75 mg DAILYWBKFT PO Last administered on 12/14/18at 13:26; Start 12/14/18 at 10:00 Sodium Chloride 1,000 ml @ 1,000 mls/hr Q1H PRN IV hypotension; Start 12/14/18 at 09:38; Stop 12/14/18 at 15:37; Status DC Acetaminophen (Tylenol) 500 mg 1X PRN PRN PO MILD PAIN / TEMP; Start 12/14/18 at 09:45; Stop 12/15/18 at 09:44; Status DC Diphenhydramine HCl (Benadryl) 25 mg 1X PRN PRN IV ITCHING; Start 12/14/18 at 09:45; Stop 12/15/18 at 09:44; Status DC Diphenhydramine HCl (Benadryl) 25 mg 1X PRN PRN IV ITCHING; Start 12/14/18 at 09:45; Stop 12/15/18 at 09:44; Status DC Sodium Chloride 1,000 ml @ 400 mls/hr Q2H30M PRN IV PATENCY; Start 12/14/18 at 09:38; Stop 12/14/18 at 21:37; Status DC Info (PHARMACY MONITORING -- do not chart) 1 each PRN DAILY PRN MC SEE COMMENTS; Start 12/14/18 at 09:45 Alprazolam (Xanax) 0.25 mg PRN DAILY PRN PO ANXIETY / AGITATION; Start 12/16/18 at 09:00 Fentanyl Citrate (Fentanyl 2ml Vial) 75 mcg PRN Q4HRS PRN IV PAIN Last administered on 12/16/18 03:26; Start 12/15/18 at 09:15 Acetaminophen/ Hydrocodone Bitart (Lortab 10/325) 1 tab PRN Q6HRS PRN PO MODERATE TO SEVERE PAIN Last administered on 12/16/18at 02:51; Start 12/15/18 at 09:15 Nicotine (Nicoderm Cq 21mg) 1 patch DAILY TD Last administered on 12/15/18at 11:27; Start 12/15/18 at 12:00 Fentanyl (Duragesic 12mcg/ Hr Patch) 1 patch Q3DAYS TD Last administered on 12/15/18at 12:42; Start 12/15/18 at 12:15 Ondansetron HCl (Zofran Odt) 4 mg PRN Q6HRS PRN PO NAUSEA/VOMITING Last administered on 12/15/18at 12:42; Start 12/15/18 at 12:15 Active Scripts Active Keflex (Cephalexin) 500 Mg Capsule 1 Cap PO TID Pinky-Shreya Tablet (Folic Acid/Vitamin B Comp W-C) 0.8 Mg Tablet 1 Tab PO DAILY Hydrocodone-Apap 10-325 (Hydrocodone Bit/Acetaminophen) 1 Tab Tablet 1 Tab PO PRN Q4HRS PRN [Darbepoetin Jarrett In Polysorbat] 60 MCG/0.3 ML Disp.syrin 60 Mcg SQ WEEKLYHS 30 Days Alprazolam 0.5 Mg Tablet 0.5 Mg PO PRN TID PRN MDD 1 Tylenol (Acetaminophen) 325 Mg Capsule 650 Mg PO Q6-8HRS PRN Zantac (Ranitidine Hcl) 300 Mg Tablet 1 Tab PO QHS Compazine (Prochlorperazine Maleate) 5 Mg Tablet 5 Mg PO PRN TID PRN 10 Days [Pantoprazole] 40 MG Tablet.dr 40 Mg PO DAILYAC 30 Days Reported Zoloft (Sertraline Hcl) 50 Mg Tablet 50 Mg PO DAILY Lisinopril 20 Mg Tablet 20 Mg PO DAILY Coreg (Carvedilol) 6.25 Mg Tablet 6.25 Mg PO [address] Dr 6,000 Units Capsule (Lipase/Protease/Amylase) 1 Each Capsule. 1 Tab PO TID Proair Hfa (Albuterol Sulfate) 8.5 Gm Hfa.aer.ad 2 Puff INH BID PRN Levothyroxine Sodium 50 Mcg Tablet 1 Tab PO DAILY Clonidine Tts-2 (Clonidine) 1 Each Patch.tdwk 1 Patch TD WEEKLY Amlodipine Besylate 5 Mg Tablet 10 Mg PO DAILY Atorvastatin Calcium 40 Mg Tablet 40 Mg PO HS Latanoprost 2.5 Ml Drops 1 Drop EACHEYE HS Vitals/I & O Vital Sign - Last 24 Hours 12/15/18 12/15/18 12/15/18 12/15/18 11:00 11:27 12:42 14:51 Temp 98.4 98.4 Pulse 89 88 Resp 18 B/P (MAP) 176/61 (99) 189/80 Pulse Ox 100 94 94 O2 Delivery Room Air Room Air Room Air 12/15/18 12/15/18 12/15/18 12/15/18 16:26 16:48 19:35 23:09 Temp 98.4 98.4 98.4 98.4 Pulse 88 97 Resp 16 16 B/P (MAP) 203/74 (117) 176/78 (110) Pulse Ox 94 94 98 98 O2 Delivery Room Air Room Air Room Air Room Air 12/16/18 12/16/18 03:00 07:00 Temp 98.3 97.9 98.3 97.9 Pulse 86 78 Resp 18 18 B/P (MAP) 188/78 (114) 151/77 (101) Pulse Ox 97 92 O2 Delivery Room Air Room Air Intake and Output 12/15/18 12/15/18 12/16/18 15:00 23:00 07:00 Intake Total 240 ml Balance 240 ml FELI SHAH MD Dec 16, 2018 08:06
[2018-12-16 11:00] VITALS: BP 168/75
[2018-12-16] MEDS: FOLIC/VIT B COMP W-C (RENAL) TABLET. PO SCH (11:01)
[2018-12-16] MEDS: LISINOPRIL 20 MG TABLET PO SCH (11:01)
[2018-12-16] MEDS: amLODIPine BESYLATE 10 MG TABLET PO SCH (11:02)
[2018-12-16] MEDS: CLOPIDOGREL BISULFATE 75 MG TABLET PO SCH (11:02)
[2018-12-16] MEDS: PANTOPRAZOLE 40 MG TABLET.DR. PO SCH (11:03)
[2018-12-16] MEDS: SERTRALINE 50 MG TABLET. PO SCH (11:03)
[2018-12-16] MEDS: CARVEDILOL 6.25 MG TABLET. PO SCH ×2 (11:03→17:18)
[2018-12-16] MEDS: CEPHALEXIN 250 MG CAPSULE. PO SCH ×3 (11:03→21:31)
[2018-12-16] MEDS: NICOTINE 21MG PATCH. TD SCH (11:03)
[2018-12-16] MEDS: fentaNYL PF VIAL 100 MCG/2 ML VIAL IV PRN (14:07)
[2018-12-16 15:00] VITALS: BP 148/63
[2018-12-16 19:03] VITALS: BP 109/48
[2018-12-16] MEDS: LATANOPROST 0.005% OPHTH SOLUTION 2.5ML BOTTLE. OU SCH (21:00)
[2018-12-16] MEDS: ATORVASTATIN CALCIUM 40 MG TABLET. PO SCH (21:32)
[2018-12-16 23:00] VITALS: BP 134/60
[2018-12-17] MEDS: fentaNYL PF VIAL 100 MCG/2 ML VIAL IV PRN ×2 (02:01→14:00)
[2018-12-17 03:00] VITALS: BP 127/65
[2018-12-17] MEDS: HYDROcodone/APAP 10/325 1 TAB TABLET PO PRN ×4 (04:39→23:59)
[2018-12-17] MEDS: LEVOTHYROXINE 50 MCG TABLET PO SCH (04:39)
[2018-12-17 07:00] VITALS: BP 151/45
[2018-12-17 07:43] LABS: BASO # 0.1 x10^3/uL (0.0-0.2); BASO % 1 % (0-3); EOS % 1 % (0-3); HEMATOCRIT 26.8 % (36.0-47.0); HEMOGLOBIN 9.1 g/dL (12.0-15.5); LYMPH # 1.5 x10^3/uL (1.0-4.8); LYMPH % 16 % (24-48); MEAN CORPUSCULAR HEMOGLOBIN 30 pg (25-35); MEAN CORPUSCULAR HGB CONC 34 g/dL (31-37); MEAN CORPUSCULAR VOLUME 88 fL (79-100); MONO # 0.8 x10^3/uL (0.0-1.1); MONO % 8 % (0-9); NEUT # 6.7 x10^3/uL (1.8-7.7); NEUT % 74 % (31-73); PLATELET COUNT 374 x10^3/uL (140-400); RED BLOOD COUNT 3.06 x10^6/uL (3.50-5.40); RED CELL DISTRIBUTION WIDTH 17.2 % (11.5-14.5); WHITE BLOOD COUNT 9.1 x10^3/uL (4.0-11.0)
[2018-12-17] MEDS: INSULIN LISPRO 300 UNITS/3 ML VIAL. SQ SCH ×3 (08:00→18:13)
[2018-12-17 08:04] LABS: ALBUMIN 2.3 g/dL (3.4-5.0); CALCIUM 8.1 mg/dL (8.5-10.1); CREATININE 8.4 mg/dL (0.6-1.0); POTASSIUM 5.7 mmol/L (3.5-5.1)
[2018-12-17 08:05] LABS: PHOSPHORUS 10.1 mg/dL (2.6-4.7)
[2018-12-17] MEDS ORDERED: IV NORMAL SALINE 1000ML BAG 1,000 ML IV PRN ×2 (08:23)
[2018-12-17] MEDS: PANTOPRAZOLE 40 MG TABLET.DR. PO SCH (08:23)
[2018-12-17] MEDS ORDERED: ACETAMINOPHEN 500 MG TABLET PO PRN (08:30)
[2018-12-17] MEDS ORDERED: DIALYSIS PATIENT. MC PRN (08:30)
[2018-12-17] MEDS ORDERED: diphenhydrAMINE 50 MG/ML VIAL IV PRN ×2 (08:30)
--- NOTE | 2018-12-17 09:45 | PDOC ---
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 Nonvisualization of flow in the distal [employer] suggests occlusion, age indeterminate. Anxiety, depression sec to med illness mod to severe pcm History of Present Illness History of Present Illness i dont know where to send her She was a readmission after leaving AMA from SNU < 24 hrs She would come back here for admission if dcd to Dtr wants her snu - BUT PT is out of control OFf IV meds, medically cleared to dc She complains of her usual pain PLAn: SANTIAGO, help with dc dispo/plans FULL CODE Wound care of that stump HD per renal Vitals Vitals Vital Signs Date Time Temp Pulse Resp B/P (MAP) Pulse Ox O2 Delivery O2 Flow Rate FiO2 12/17/18 07:00 97.8 68 16 151/45 (80) 93 Room Air 97.8 Physical Exam General: Alert, Oriented X3, Cooperative, moderate distress Heart: Regular rate, Normal S1, Normal S2 Lungs: Clear Abdomen: Normal bowel sounds, No tenderness Extremities: No clubbing, No cyanosis, Normal pulses Skin: Other (bka stump, wound dressing, amputated toes) Labs LABS Laboratory Tests Test 12/16/18 16:44 12/17/18 07:10 12/17/18 07:35 12/17/18 08:00 Glucose (Fingerstick) 86 mg/dL (70-99) 65 mg/dL (70-99) 95 mg/dL (70-99) White Blood Count 9.1 x10^3/uL (4.0-11.0) Red Blood Count 3.06 x10^6/uL (3.50-5.40) Hemoglobin 9.1 g/dL (12.0-15.5) Hematocrit 26.8 % (36.0-47.0) Mean Corpuscular Volume 88 fL (79-100) Mean Corpuscular Hemoglobin 30 pg (25-35) Mean Corpuscular Hemoglobin Concent 34 g/dL (31-37) Red Cell Distribution Width 17.2 % (11.5-14.5) Platelet Count 374 x10^3/uL (140-400) Neutrophils (%) (Auto) 74 % (31-73) Lymphocytes (%) (Auto) 16 % (24-48) Monocytes (%) (Auto) 8 % (0-9) Eosinophils (%) (Auto) 1 % (0-3) Basophils (%) (Auto) 1 % (0-3) Neutrophils # (Auto) 6.7 x10^3/uL (1.8-7.7) Lymphocytes # (Auto) 1.5 x10^3/uL (1.0-4.8) Monocytes # (Auto) 0.8 x10^3/uL (0.0-1.1) Eosinophils # (Auto) 0.0 x10^3/uL (0.0-0.7) Basophils # (Auto) 0.1 x10^3/uL (0.0-0.2) Sodium Level 138 mmol/L (136-145) Potassium Level 5.7 mmol/L (3.5-5.1) Chloride Level 98 mmol/L (98-107) Carbon Dioxide Level 29 mmol/L (21-32) Anion Gap 11 (6-14) Blood Urea Nitrogen 60 mg/dL (7-20) Creatinine 8.4 mg/dL (0.6-1.0) Estimated GFR (Cockcroft-Gault) 6.0 Glucose Level 71 mg/dL (70-99) Calcium Level 8.1 mg/dL (8.5-10.1) Phosphorus Level 10.1 mg/dL (2.6-4.7) Albumin 2.3 g/dL (3.4-5.0) Review of Systems Review of Systems teary eyed, depressed, pain everywhere, limted ROS, hard to focus Assessment and Plan Assessmemt and Plan Problems Medical Problems: (1) Anemia Status: Chronic (2) Diabetic peripheral neuropathy associated with type 2 diabetes mellitus Status: Chronic (3) ESRD on hemodialysis Status: Chronic (4) Fall Status: Acute (5) Hyperglycemia Status: Acute (6) Hyperkalemia Status: Acute (7) PAD (peripheral artery disease) Status: Chronic Comment Review of Relevant I have reviewed the following items pamela (where applicable) has been applied. Labs Laboratory Tests Test 12/15/18 17:29 12/15/18 22:22 12/16/18 07:18 12/16/18 16:44 Glucose (Fingerstick) 115 mg/dL (70-99) 117 mg/dL (70-99) 87 mg/dL (70-99) 86 mg/dL (70-99) Test 12/17/18 07:10 12/17/18 07:35 12/17/18 08:00 White Blood Count 9.1 x10^3/uL (4.0-11.0) Red Blood Count 3.06 x10^6/uL (3.50-5.40) Hemoglobin 9.1 g/dL (12.0-15.5) Hematocrit 26.8 % (36.0-47.0) Mean Corpuscular Volume 88 fL (79-100) Mean Corpuscular Hemoglobin 30 pg (25-35) Mean Corpuscular Hemoglobin Concent 34 g/dL (31-37) Red Cell Distribution Width 17.2 % (11.5-14.5) Platelet Count 374 x10^3/uL (140-400) Neutrophils (%) (Auto) 74 % (31-73) Lymphocytes (%) (Auto) 16 % (24-48) Monocytes (%) (Auto) 8 % (0-9) Eosinophils (%) (Auto) 1 % (0-3) Basophils (%) (Auto) 1 % (0-3) Neutrophils # (Auto) 6.7 x10^3/uL (1.8-7.7) Lymphocytes # (Auto) 1.5 x10^3/uL (1.0-4.8) Monocytes # (Auto) 0.8 x10^3/uL (0.0-1.1) Eosinophils # (Auto) 0.0 x10^3/uL (0.0-0.7) Basophils # (Auto) 0.1 x10^3/uL (0.0-0.2) Sodium Level 138 mmol/L (136-145) Potassium Level 5.7 mmol/L (3.5-5.1) Chloride Level 98 mmol/L (98-107) Carbon Dioxide Level 29 mmol/L (21-32) Anion Gap 11 (6-14) Blood Urea Nitrogen 60 mg/dL (7-20) Creatinine 8.4 mg/dL (0.6-1.0) Estimated GFR (Cockcroft-Gault) 6.0 Glucose Level 71 mg/dL (70-99) Calcium Level 8.1 mg/dL (8.5-10.1) Phosphorus Level 10.1 mg/dL (2.6-4.7) Albumin 2.3 g/dL (3.4-5.0) Glucose (Fingerstick) 65 mg/dL (70-99) 95 mg/dL (70-99) Laboratory Tests Test 12/16/18 16:44 12/17/18 07:10 12/17/18 07:35 12/17/18 08:00 Glucose (Fingerstick) 86 mg/dL (70-99) 65 mg/dL (70-99) 95 mg/dL (70-99) White Blood Count 9.1 x10^3/uL (4.0-11.0) Red Blood Count 3.06 x10^6/uL (3.50-5.40) Hemoglobin 9.1 g/dL (12.0-15.5) Hematocrit 26.8 % (36.0-47.0) Mean Corpuscular Volume 88 fL (79-100) Mean Corpuscular Hemoglobin 30 pg (25-35) Mean Corpuscular Hemoglobin Concent 34 g/dL (31-37) Red Cell Distribution Width 17.2 % (11.5-14.5) Platelet Count 374 x10^3/uL (140-400) Neutrophils (%) (Auto) 74 % (31-73) Lymphocytes (%) (Auto) 16 % (24-48) Monocytes (%) (Auto) 8 % (0-9) Eosinophils (%) (Auto) 1 % (0-3) Basophils (%) (Auto) 1 % (0-3) Neutrophils # (Auto) 6.7 x10^3/uL (1.8-7.7) Lymphocytes # (Auto) 1.5 x10^3/uL (1.0-4.8) Monocytes # (Auto) 0.8 x10^3/uL (0.0-1.1) Eosinophils # (Auto) 0.0 x10^3/uL (0.0-0.7) Basophils # (Auto) 0.1 x10^3/uL (0.0-0.2) Sodium Level 138 mmol/L (136-145) Potassium Level 5.7 mmol/L (3.5-5.1) Chloride Level 98 mmol/L (98-107) Carbon Dioxide Level 29 mmol/L (21-32) Anion Gap 11 (6-14) Blood Urea Nitrogen 60 mg/dL (7-20) Creatinine 8.4 mg/dL (0.6-1.0) Estimated GFR (Cockcroft-Gault) 6.0 Glucose Level 71 mg/dL (70-99) Calcium Level 8.1 mg/dL (8.5-10.1) Phosphorus Level 10.1 mg/dL (2.6-4.7) Albumin 2.3 g/dL (3.4-5.0) Microbiology 12/14/18 Blood Culture - Preliminary, Resulted NO GROWTH AFTER 2 DAYS Medications Current Medications Fentanyl Citrate (Fentanyl 2ml Vial) 50 mcg 1X ONCE IV Last administered on 12/14/18at 02:52; Start 12/14/18 at 01:30; Stop 12/14/18 at 01:32; Status DC Ondansetron HCl (Zofran) 4 mg 1X ONCE IV Last administered on 12/14/18at 02:52; Start 12/14/18 at 01:30; Stop 12/14/18 at 01:32; Status DC Famotidine (Pepcid Vial) 20 mg 1X ONCE IVP Last administered on 12/14/18at 02:52; Start 12/14/18 at 01:30; Stop 12/14/18 at 01:32; Status DC Mupirocin (Bactroban) 1 herber 1X ONCE TP Last administered on 12/14/18at 02:52; Start 12/14/18 at 01:45; Stop 12/14/18 at 01:46; Status DC Mupirocin (Bactroban) 1 herber 1X ONCE TP Last administered on 12/14/18at 02:52; Start 12/14/18 at 02:30; Stop 12/14/18 at 02:31; Status DC Insulin Human Regular (HumuLIN R VIAL) 10 unit 1X ONCE IV ; Start 12/14/18 at 03:30; Stop 12/14/18 at 03:35; Status DC Ondansetron HCl (Zofran) 4 mg PRN Q8HRS PRN IV NAUSEA/VOMITING Last administered on 12/15/18at 00:08; Start 12/14/18 at 04:00; Stop 12/15/18 at 03:59; Status DC Fentanyl Citrate (Fentanyl 2ml Vial) 50 mcg PRN Q2HR PRN IV PAIN Last administered on 12/14/18at 09:00; Start 12/14/18 at 04:00; Stop 12/14/18 at 09:05; Status DC Insulin Human Lispro (HumaLOG) 0-5 UNITS TIDWMEALS SQ Last administered on 12/14/18at 13:26; Start 12/14/18 at 08:00 Dextrose (Dextrose 50%-Water Syringe) 12.5 gm PRN Q15MIN PRN IV SEE COMMENTS; Start 12/14/18 at 04:00 Dextrose 250 ml PRN Q15MIN PRN IV SEE COMMENTS; Start 12/14/18 at 04:00 Albuterol Sulfate (Ventolin Neb Soln) 2.5 mg PRN BID PRN INH SHORTNESS OF BREATH; Start 12/14/18 at 09:00 Alprazolam (Xanax) 0.5 mg PRN TID PRN PO ANXIETY / AGITATION; Start 12/14/18 at 09:00; Stop 12/15/18 at 09:03; Status DC Amlodipine Besylate (Norvasc) 10 mg DAILY PO Last administered on 12/16/18at 11:03; Start 12/14/18 at 09:00 Atorvastatin Calcium (Lipitor) 40 mg HS PO Last administered on 12/16/18at 21:32; Start 12/14/18 at 21:00 Carvedilol (Coreg) 6.25 mg BIDWMEALS PO Last administered on 12/16/18at 17:18; Start 12/14/18 at 09:00 Clonidine HCl (Catapres Tts-2) 1 patch WEEKLY TD Last administered on 12/14/18at 13:25; Start 12/14/18 at 09:00 Vitamin B Complex/ Vitamin C (Pinky-Shreya) 1 tab DAILY PO Last administered on 12/16/18at 11:03; Start 12/14/18 at 09:00 Acetaminophen/ Hydrocodone Bitart (Lortab 10/325) 1 tab PRN Q4HRS PRN PO MODERATE TO SEVERE PAIN Last administered on 12/15/18 08:05; Start 12/14/18 at 09:00; Stop 12/15/18 at 09:03; Status DC Latanoprost (Xalatan) 1 drop HS OU ; Start 12/14/18 at 21:00 Levothyroxine Sodium (Synthroid) 50 mcg DAILY06 PO Last administered on 12/17/18at 04:39; Start 12/14/18 at 09:00 Lisinopril (Prinivil) 20 mg DAILY PO Last administered on 12/16/18at 11:03; Start 12/14/18 at 09:00 Prochlorperazine Maleate (Compazine) 5 mg PRN TID PRN PO NAUSEA 2ND CHOICE Last administered on 12/15/18 08:05; Start 12/14/18 at 09:00 Sertraline HCl (Zoloft) 50 mg DAILY PO Last administered on 12/16/18at 11:03; Start 12/14/18 at 09:00 Acetaminophen (Tylenol) 650 mg PRN Q6HRS PRN PO MILD PAIN / TEMP; Start 12/14/18 at 09:00 Cephalexin HCl (Keflex) 500 mg TID PO Last administered on 12/16/18at 14:07; Start 12/14/18 at 09:00; Stop 12/16/18 at 15:12; Status DC Amylase/Lipase/ Protease (Zenpep 5,000) 1 cap TIDWMEALS PO Last administered on 12/16/18at 17:18; Start 12/14/18 at 09:00 Famotidine (Pepcid) 20 mg QHS PO ; Start 12/14/18 at 21:00; Status Cancel Pantoprazole Sodium (Protonix) 40 mg DAILYAC PO Last administered on 12/17/18 08:26; Start 12/14/18 at 09:00 Fentanyl Citrate (Fentanyl 2ml Vial) 75 mcg PRN Q2HR PRN IV PAIN Last administered on 12/14/18at 11:20; Start 12/14/18 at 09:15; Stop 12/15/18 at 09:03; Status DC Clopidogrel Bisulfate (Plavix) 75 mg DAILYWBKFT PO Last administered on 12/16/18at 11:03; Start 12/14/18 at 10:00 Sodium Chloride 1,000 ml @ 1,000 mls/hr Q1H PRN IV hypotension; Start 12/14/18 at 09:38; Stop 12/14/18 at 15:37; Status DC Acetaminophen (Tylenol) 500 mg 1X PRN PRN PO MILD PAIN / TEMP; Start 12/14/18 at 09:45; Stop 12/15/18 at 09:44; Status DC Diphenhydramine HCl (Benadryl) 25 mg 1X PRN PRN IV ITCHING; Start 12/14/18 at 09:45; Stop 12/15/18 at 09:44; Status DC Diphenhydramine HCl (Benadryl) 25 mg 1X PRN PRN IV ITCHING; Start 12/14/18 at 09:45; Stop 12/15/18 at 09:44; Status DC Sodium Chloride 1,000 ml @ 400 mls/hr Q2H30M PRN IV PATENCY; Start 12/14/18 at 09:38; Stop 12/14/18 at 21:37; Status DC Info (PHARMACY MONITORING -- do not chart) 1 each PRN DAILY PRN MC SEE COMMENTS; Start 12/14/18 at 09:45 Alprazolam (Xanax) 0.25 mg PRN DAILY PRN PO ANXIETY / AGITATION; Start 12/16/18 at 09:00 Fentanyl Citrate (Fentanyl 2ml Vial) 75 mcg PRN Q4HRS PRN IV PAIN Last administered on 12/16/18at 03:26; Start 12/15/18 at 09:15; Stop 12/16/18 at 10:26; Status DC Acetaminophen/ Hydrocodone Bitart (Lortab 10/325) 1 tab PRN Q6HRS PRN PO MODERATE TO SEVERE PAIN Last administered on 12/17/18at 04:39; Start 12/15/18 at 09:15 Nicotine (Nicoderm Cq 21mg) 1 patch DAILY TD Last administered on 12/16/18at 11:03; Start 12/15/18 at 12:00 Fentanyl (Duragesic 12mcg/ Hr Patch) 1 patch Q3DAYS TD Last administered on 12/15/18at 12:42; Start 12/15/18 at 12:15 Ondansetron HCl (Zofran Odt) 4 mg PRN Q6HRS PRN PO NAUSEA/VOMITING 1ST CHOICE Last administered on 12/15/18at 12:42; Start 12/15/18 at 12:15 Fentanyl Citrate (Fentanyl 2ml Vial) 75 mcg PRN BID PRN IV SEVERE PAIN Last administered on 12/17/18at 02:01; Start 12/16/18 at 14:00 Cephalexin HCl (Keflex) 250 mg BID PO Last administered on 12/16/18at 21:32; Start 12/16/18 at 21:00 Sodium Chloride 1,000 ml @ 1,000 mls/hr Q1H PRN IV hypotension; Start 12/17/18 at 08:23; Stop 12/17/18 at 14:22 Acetaminophen (Tylenol) 500 mg 1X PRN PRN PO MILD PAIN / TEMP; Start 12/17/18 at 08:30; Stop 12/18/18 at 08:29 Diphenhydramine HCl (Benadryl) 25 mg 1X PRN PRN IV ITCHING; Start 12/17/18 at 08:30; Stop 12/18/18 at 08:29 Diphenhydramine HCl (Benadryl) 25 mg 1X PRN PRN IV ITCHING; Start 12/17/18 at 08:30; Stop 12/18/18 at 08:29 Sodium Chloride 1,000 ml @ 400 mls/hr Q2H30M PRN IV PATENCY; Start 12/17/18 at 08:23; Stop 12/17/18 at 20:22 Info (PHARMACY MONITORING -- do not chart) 1 each PRN DAILY PRN MC SEE COMMENTS; Start 12/17/18 at 08:30 Active Scripts Active Keflex (Cephalexin) 500 Mg Capsule 1 Cap PO TID Pinky-Shreya Tablet (Folic Acid/Vitamin B Comp W-C) 0.8 Mg Tablet 1 Tab PO DAILY Hydrocodone-Apap 10-325 (Hydrocodone Bit/Acetaminophen) 1 Tab Tablet 1 Tab PO PRN Q4HRS PRN [Darbepoetin Jarrett In Polysorbat] 60 MCG/0.3 ML Disp.syrin 60 Mcg SQ WEEKLYHS 30 Days Alprazolam 0.5 Mg Tablet 0.5 Mg PO PRN TID PRN MDD 1 Tylenol (Acetaminophen) 325 Mg Capsule 650 Mg PO Q6-8HRS PRN Zantac (Ranitidine Hcl) 300 Mg Tablet 1 Tab PO QHS Compazine (Prochlorperazine Maleate) 5 Mg Tablet 5 Mg PO PRN TID PRN 10 Days [Pantoprazole] 40 MG Tablet. 40 Mg PO DAILYAC 30 Days Reported Zoloft (Sertraline Hcl) 50 Mg Tablet 50 Mg PO DAILY Lisinopril 20 Mg Tablet 20 Mg PO DAILY Coreg (Carvedilol) 6.25 Mg Tablet 6.25 Mg PO BIDWMEALS Shante Knowles 6,000 Units Capsule (Lipase/Protease/Amylase) 1 Each Capsule. 1 Tab PO TID Proair Hfa (Albuterol Sulfate) 8.5 Gm Hfa.aer.ad 2 Puff INH BID PRN Levothyroxine Sodium 50 Mcg Tablet 1 Tab PO DAILY Clonidine Tts-2 (Clonidine) 1 Each Patch.tdwk 1 Patch TD WEEKLY Amlodipine Besylate 5 Mg Tablet 10 Mg PO DAILY Atorvastatin Calcium 40 Mg Tablet 40 Mg PO HS Latanoprost 2.5 Ml Drops 1 Drop EACHEYE HS Vitals/I & O Vital Sign - Last 24 Hours 12/16/18 12/16/18 12/16/18 12/16/18 10:07 11:00 11:03 11:03 Temp 97.7 97.7 Pulse 80 78 78 Resp 18 B/P (MAP) 168/75 (106) 151/77 151/77 Pulse Ox 92 94 O2 Delivery Room Air Room Air 12/16/18 12/16/18 12/16/18 12/16/18 11:03 14:07 14:57 15:00 Temp 98.0 98.0 Pulse 78 73 Resp 18 B/P (MAP) 151/77 148/63 (91) Pulse Ox 94 94 94 O2 Delivery Room Air Room Air Room Air 12/16/18 12/16/18 12/16/18 12/16/18 15:28 17:10 17:18 19:03 Temp 97.9 97.9 Pulse 73 66 Resp 18 B/P (MAP) 148/63 109/48 (68) Pulse Ox 94 94 94 O2 Delivery Room Air Room Air Room Air 12/16/18 12/16/18 12/16/18 12/16/18 21:32 21:48 22:33 23:00 Temp 98.8 98.8 Pulse 69 Resp 16 16 20 B/P (MAP) 134/60 (84) Pulse Ox 94 94 95 O2 Delivery Room Air Room Air Room Air Room Air 12/17/18 12/17/18 12/17/18 12/17/18 02:01 03:00 03:36 04:39 Temp 98.6 98.6 Pulse 68 Resp 16 20 16 16 B/P (MAP) 127/65 (85) Pulse Ox 94 95 94 95 O2 Delivery Room Air Room Air Room Air Room Air 12/17/18 12/17/18 06:34 07:00 Temp 97.8 97.8 Pulse 68 Resp 16 B/P (MAP) 151/45 (80) Pulse Ox 95 93 O2 Delivery Room Air Room Air Intake and Output 12/16/18 12/16/18 12/17/18 14:59 22:59 06:59 Intake Total 240 ml 200 ml Balance 240 ml 200 ml PRABHAKAR MOSQUERA MD Dec 17, 2018 09:45
--- NOTE | 2018-12-17 10:17 | PDOC ---
Provider Note Provider Note addendum to my earlier note today: I SAW HER IN HD TODAY, SPENT < 5 MINS WITH HER BUT I WAS BLUNT I RELAYED MY DISAPPOINTMENT - HH AND SHE COMES BACK SNU (AFTER LOTS OF WORK WITH INSURANCE COMPANY BY SW OR [employer]), AND SHE COMES BACK < 24 HRS I ASKED HER IF SHE JUST WANTED HOSPICE??? SHE RAISES HER LEFT HAND TO COVER HER FACE AND DOES NOT ANSWER ME HD RNS, WITNESS TO MY CONVERSATION PRABHAKAR MOSQUERA MD Dec 17, 2018 10:17
--- NOTE | 2018-12-17 12:20 | PDOC ---
Renal-Progress Notes Subjective Notes Notes STUMP PAIN History of Present Illness Hx of present illness STABLE Vitals Vitals Vital Signs Date Time Temp Pulse Resp B/P (MAP) Pulse Ox O2 Delivery O2 Flow Rate FiO2 12/17/18 10:48 20 94 Room Air 12/17/18 07:00 97.8 68 151/45 (80) 97.8 Weight Weight [ ] I.O. Intake and Output Intake and Output 12/17/18 07:00 Intake Total 440 ml Balance 440 ml Intake Oral 440 ml # Voids 2 Labs Labs Laboratory Tests Test 12/16/18 16:44 12/17/18 07:10 12/17/18 07:35 12/17/18 08:00 Glucose (Fingerstick) 86 mg/dL (70-99) 65 mg/dL (70-99) 95 mg/dL (70-99) White Blood Count 9.1 x10^3/uL (4.0-11.0) Red Blood Count 3.06 x10^6/uL (3.50-5.40) Hemoglobin 9.1 g/dL (12.0-15.5) Hematocrit 26.8 % (36.0-47.0) Mean Corpuscular Volume 88 fL (79-100) Mean Corpuscular Hemoglobin 30 pg (25-35) Mean Corpuscular Hemoglobin Concent 34 g/dL (31-37) Red Cell Distribution Width 17.2 % (11.5-14.5) Platelet Count 374 x10^3/uL (140-400) Neutrophils (%) (Auto) 74 % (31-73) Lymphocytes (%) (Auto) 16 % (24-48) Monocytes (%) (Auto) 8 % (0-9) Eosinophils (%) (Auto) 1 % (0-3) Basophils (%) (Auto) 1 % (0-3) Neutrophils # (Auto) 6.7 x10^3/uL (1.8-7.7) Lymphocytes # (Auto) 1.5 x10^3/uL (1.0-4.8) Monocytes # (Auto) 0.8 x10^3/uL (0.0-1.1) Eosinophils # (Auto) 0.0 x10^3/uL (0.0-0.7) Basophils # (Auto) 0.1 x10^3/uL (0.0-0.2) Sodium Level 138 mmol/L (136-145) Potassium Level 5.7 mmol/L (3.5-5.1) Chloride Level 98 mmol/L (98-107) Carbon Dioxide Level 29 mmol/L (21-32) Anion Gap 11 (6-14) Blood Urea Nitrogen 60 mg/dL (7-20) Creatinine 8.4 mg/dL (0.6-1.0) Estimated GFR (Cockcroft-Gault) 6.0 Glucose Level 71 mg/dL (70-99) Calcium Level 8.1 mg/dL (8.5-10.1) Phosphorus Level 10.1 mg/dL (2.6-4.7) Albumin 2.3 g/dL (3.4-5.0) Micro Micro Microbiology 12/14/18 Blood Culture - Preliminary, Resulted NO GROWTH AFTER 3 DAYS Review of Systems Constitutional: yes: alert, oriented Ears/Nose/Throat: Yes: no symptom reported Eyes: Yes: no symptom reported Pulmonary: Yes no symptom reported Cardiovascular: Yes no symptom reported Gastrointestional: Yes: no symptom reported Genitourinary: Yes: no symptom reported Musculoskeletal: Yes: no symptom reported Skin: Yes no symptom reported Psychiatric/Neurological: Yes: no symptom reported Endocrine: Yes: no symptom reported Hematologic/Lymphatic: Yes: no symptom reported Physical Exam General Appearance: no apparent distress Respiratory: bilateral CTA Heart: S1S2 Abdomen: soft, bowel sounds present Extremities: pulses present Neurology: alert, oriented Assessment Assessment IMP ESRD ANEMIA HTN PAD STUMP PAIN S/P BKA RECENTLY NON COMPLIANCE PLAN HD TODAY UF TO DW WOUND CARE BENY GAFFNEY MD Dec 17, 2018 12:20
--- NOTE | 2018-12-17 12:45 | NUR ---
PATIENT RETURNED TO THE UNIT FROM SURGERY PER BED, POST OP VITALS STARTED, PATIENT ALERT AND VERBALLY RESPONSIVE, WILL REVIEW POST OP ORDERS, ASSESSMENT COMPLETED, ISLAND DRESSINGS X3 ON ABDOMINAL AREA, SHADOW DRAINAGE NOTICED ON RIGHT LOWER DRESSING, WILL MONITOR, PATIENTS' SON AT THE BEDSIDE AT THIS TIME.
[2018-12-17] MEDS: NICOTINE 21MG PATCH. TD SCH (14:01)
[2018-12-17] MEDS: CLOPIDOGREL BISULFATE 75 MG TABLET PO SCH (14:01)
[2018-12-17] MEDS: FOLIC/VIT B COMP W-C (RENAL) TABLET. PO SCH (14:01)
[2018-12-17] MEDS: SERTRALINE 50 MG TABLET. PO SCH (14:02)
[2018-12-17] MEDS: CEPHALEXIN 250 MG CAPSULE. PO SCH ×2 (14:02→20:47)
[2018-12-17] MEDS: LISINOPRIL 20 MG TABLET PO SCH (14:02)
[2018-12-17] MEDS: amLODIPine BESYLATE 10 MG TABLET PO SCH (14:03)
[2018-12-17] MEDS: ALPRAZolam 0.5 MG TABLET PO PRN (14:03)
[2018-12-17] MEDS: CARVEDILOL 6.25 MG TABLET. PO SCH ×2 (14:04→17:55)
[2018-12-17 15:00] VITALS: BP 145/58
--- NOTE | 2018-12-17 16:03 | PDOC ---
Provider Note Provider Note Vascular Pt seen in room today. She refused to talk to me until I got the social human services assistants for her. "I have no life, just let me " I was able to see her left foot wound that did not have a dressing on it, which is full of fatty tissue and slough, no granulation tissue present. Reviewed arterial duplex, shows patency. A/P: PAD s/p left foot debridement, left leg angioplasty s/p right BKA Pt will likely need further debridement of left foot in future, will try to talk to her again tomorrow. Today she was uncooperative. MARK MITCHELL Dec 17, 2018 16:03
--- NOTE | 2018-12-17 16:28 | NUR ---
SANTIAGO consulted for dc planning. Chart reviewed and pt is known to SWer from multiple visits and non-complaint with care. SW had assisted in getting pt into rehab from ED but pt had left facility AMA and presents at [facility] again. SWer spoke with pt who at first wouldn't look or talk to SWer. SANTIAGO informed pt if she does not want to speak with SW, SWer is not able to help her. Pt states 'well I don't have no legs and no wants to help me'. SW confronted pt's unrealistic goals about placement, non-compliant with plan and continuos admission to [facility] after leaving AMA from rehab. SW discussed SW is not able to assist if pt is not committed to plan of care but pt is mostly quiet. Pt then [place] [facility] [place] Pt states she does not want SW to speak any family members and states she will be going on the streets if SWer does not help her find a place. Pt is aware she will give up her SSI and states she wants a private room. SW informed her Medicaid does not pay for private room and she will be with a room mate whether she is agreeable or not. Pt claims she can afford to pay for private room and would like to go to a facility where she is able to smoke. Plan 1. [facility]AG[facility] (declined), [facility] and [place]. Acceptance pending. 2. Supportive counseling, 3. Discussed with Physician and RN. Pt is at risk for readmission whether she goes to SNU or Home due to poor insight of her medical condition, non-compliant with POC. 4. Will continue to follow.
--- NOTE | 2018-12-17 17:41 | PDOC2 ---
PALLIATIVE CARE Palliative Care Note Palliative Care Consult requested by Dr. Kearney to address discharge plan. 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 Nonvisualization of flow in the distal RN PALLIATIVE CARE suggests occlusion, age indeterminate. Anxiety, depression sec to med illness mod to severe pcm Plan family meeting tomorrow at 1100 with patient and daughter Maureen Cade. KAYLYN LE Dec 17, 2018 17:41
[2018-12-17 19:00] VITALS: BP 138/59
[2018-12-17] MEDS: LACTOBACILLUS RHAMNOSUS GG 1 CAPSULE. PO SCH ×2 (20:47→20:56)
[2018-12-17] MEDS: ATORVASTATIN CALCIUM 40 MG TABLET. PO SCH ×2 (20:47→20:58)
[2018-12-17] MEDS: LATANOPROST 0.005% OPHTH SOLUTION 2.5ML BOTTLE. OU SCH (21:00)
[2018-12-17] MEDS: ZOLPIDEM 5 MG TABLET. PO PRN (21:48)
[2018-12-17 22:55] VITALS: BP 144/64
[2018-12-18] MEDS: fentaNYL PF VIAL 100 MCG/2 ML VIAL IV PRN ×2 (02:00→14:01)
[2018-12-18] MEDS: PANTOPRAZOLE 40 MG TABLET.DR. PO SCH (05:49)
[2018-12-18] MEDS: LEVOTHYROXINE 50 MCG TABLET PO SCH (05:49)
[2018-12-18] MEDS: HYDROcodone/APAP 10/325 1 TAB TABLET PO PRN ×3 (05:49→18:24)
[2018-12-18] MEDS: INSULIN LISPRO 300 UNITS/3 ML VIAL. SQ SCH ×3 (08:00→17:00)
[2018-12-18] MEDS: fentaNYL 12MCG/HR PATCH 1 PATCH PATCH.TD72 TD SCH (08:52)
[2018-12-18] MEDS: FOLIC/VIT B COMP W-C (RENAL) TABLET. PO SCH (08:56)
[2018-12-18] MEDS: LACTOBACILLUS RHAMNOSUS GG 1 CAPSULE. PO SCH ×2 (08:57→20:00)
[2018-12-18] MEDS: CLOPIDOGREL BISULFATE 75 MG TABLET PO SCH (08:57)
[2018-12-18] MEDS: CEPHALEXIN 250 MG CAPSULE. PO SCH ×2 (08:57→20:00)
[2018-12-18] MEDS: CARVEDILOL 6.25 MG TABLET. PO SCH ×2 (08:59→18:29)
[2018-12-18 09:00] VITALS: BP 147/32
[2018-12-18] MEDS: NICOTINE 21MG PATCH. TD SCH (09:00)
[2018-12-18] MEDS: amLODIPine BESYLATE 10 MG TABLET PO SCH (09:00)
[2018-12-18] MEDS: LISINOPRIL 20 MG TABLET PO SCH (09:00)
[2018-12-18] MEDS: SERTRALINE 50 MG TABLET. PO SCH (09:06)
[2018-12-18 09:08] LABS: BASO # 0.1 x10^3/uL (0.0-0.2); BASO % 1 % (0-3); EOS % 1 % (0-3); HEMATOCRIT 28.1 % (36.0-47.0); HEMOGLOBIN 9.4 g/dL (12.0-15.5); LYMPH # 1.5 x10^3/uL (1.0-4.8); LYMPH % 15 % (24-48); MEAN CORPUSCULAR HEMOGLOBIN 30 pg (25-35); MEAN CORPUSCULAR HGB CONC 33 g/dL (31-37); MEAN CORPUSCULAR VOLUME 89 fL (79-100); MONO # 1.1 x10^3/uL (0.0-1.1); MONO % 12 % (0-9); NEUT % 72 % (31-73); PLATELET COUNT 379 x10^3/uL (140-400); RED BLOOD COUNT 3.17 x10^6/uL (3.50-5.40); RED CELL DISTRIBUTION WIDTH 16.8 % (11.5-14.5); WHITE BLOOD COUNT 9.8 x10^3/uL (4.0-11.0)
[2018-12-18 09:24] LABS: ALBUMIN 2.2 g/dL (3.4-5.0); CALCIUM 7.8 mg/dL (8.5-10.1); CREATININE 5.7 mg/dL (0.6-1.0); GFR 9.3; PHOSPHORUS 6.5 mg/dL (2.6-4.7); POTASSIUM 4.7 mmol/L (3.5-5.1)
--- NOTE | 2018-12-18 10:32 | PDOC ---
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 Nonvisualization of flow in the distal [employer] suggests occlusion, age indeterminate. Anxiety, depression sec to med illness mod to severe pcm History of Present Illness History of Present Illness Dtr wants her snu - pt not cooperative OFf IV meds, medically cleared to dc She complains of her usual pain PLAN SW, help with dc dispo/plans FULL CODE Wound care of that stump HD per renal Vitals Vitals Vital Signs Date Time Temp Pulse Resp B/P (MAP) Pulse Ox O2 Delivery O2 Flow Rate FiO2 12/18/18 09:09 78 147/32 12/18/18 09:09 Room Air 12/18/18 06:53 20 100 12/17/18 22:55 98.8 98.8 Physical Exam General: Alert, Oriented X3, Cooperative, moderate distress Heart: Regular rate, Normal S1, Normal S2 Lungs: Clear Abdomen: Normal bowel sounds, No tenderness Extremities: No clubbing, No cyanosis, Normal pulses Skin: Other (bka stump, wound dressing, amputated toes) Labs LABS Laboratory Tests Test 12/17/18 18:03 12/18/18 08:40 Glucose (Fingerstick) 233 mg/dL (70-99) White Blood Count 9.8 x10^3/uL (4.0-11.0) Red Blood Count 3.17 x10^6/uL (3.50-5.40) Hemoglobin 9.4 g/dL (12.0-15.5) Hematocrit 28.1 % (36.0-47.0) Mean Corpuscular Volume 89 fL (79-100) Mean Corpuscular Hemoglobin 30 pg (25-35) Mean Corpuscular Hemoglobin Concent 33 g/dL (31-37) Red Cell Distribution Width 16.8 % (11.5-14.5) Platelet Count 379 x10^3/uL (140-400) Neutrophils (%) (Auto) 72 % (31-73) Lymphocytes (%) (Auto) 15 % (24-48) Monocytes (%) (Auto) 12 % (0-9) Eosinophils (%) (Auto) 1 % (0-3) Basophils (%) (Auto) 1 % (0-3) Neutrophils # (Auto) 7.0 x10^3/uL (1.8-7.7) Lymphocytes # (Auto) 1.5 x10^3/uL (1.0-4.8) Monocytes # (Auto) 1.1 x10^3/uL (0.0-1.1) Eosinophils # (Auto) 0.0 x10^3/uL (0.0-0.7) Basophils # (Auto) 0.1 x10^3/uL (0.0-0.2) Sodium Level 140 mmol/L (136-145) Potassium Level 4.7 mmol/L (3.5-5.1) Chloride Level 101 mmol/L (98-107) Carbon Dioxide Level 32 mmol/L (21-32) Anion Gap 7 (6-14) Blood Urea Nitrogen 37 mg/dL (7-20) Creatinine 5.7 mg/dL (0.6-1.0) Estimated GFR (Cockcroft-Gault) 9.3 Glucose Level 272 mg/dL (70-99) Calcium Level 7.8 mg/dL (8.5-10.1) Phosphorus Level 6.5 mg/dL (2.6-4.7) Albumin 2.2 g/dL (3.4-5.0) Assessment and Plan Assessmemt and Plan Problems Medical Problems: (1) Anemia Status: Chronic (2) Diabetic peripheral neuropathy associated with type 2 diabetes mellitus Status: Chronic (3) ESRD on hemodialysis Status: Chronic (4) Fall Status: Acute (5) Hyperglycemia Status: Acute (6) Hyperkalemia Status: Acute (7) PAD (peripheral artery disease) Status: Chronic Comment Review of Relevant I have reviewed the following items pamela (where applicable) has been applied. Labs Laboratory Tests Test 12/16/18 16:44 12/17/18 07:10 12/17/18 07:35 12/17/18 08:00 Glucose (Fingerstick) 86 mg/dL (70-99) 65 mg/dL (70-99) 95 mg/dL (70-99) White Blood Count 9.1 x10^3/uL (4.0-11.0) Red Blood Count 3.06 x10^6/uL (3.50-5.40) Hemoglobin 9.1 g/dL (12.0-15.5) Hematocrit 26.8 % (36.0-47.0) Mean Corpuscular Volume 88 fL (79-100) Mean Corpuscular Hemoglobin 30 pg (25-35) Mean Corpuscular Hemoglobin Concent 34 g/dL (31-37) Red Cell Distribution Width 17.2 % (11.5-14.5) Platelet Count 374 x10^3/uL (140-400) Neutrophils (%) (Auto) 74 % (31-73) Lymphocytes (%) (Auto) 16 % (24-48) Monocytes (%) (Auto) 8 % (0-9) Eosinophils (%) (Auto) 1 % (0-3) Basophils (%) (Auto) 1 % (0-3) Neutrophils # (Auto) 6.7 x10^3/uL (1.8-7.7) Lymphocytes # (Auto) 1.5 x10^3/uL (1.0-4.8) Monocytes # (Auto) 0.8 x10^3/uL (0.0-1.1) Eosinophils # (Auto) 0.0 x10^3/uL (0.0-0.7) Basophils # (Auto) 0.1 x10^3/uL (0.0-0.2) Sodium Level 138 mmol/L (136-145) Potassium Level 5.7 mmol/L (3.5-5.1) Chloride Level 98 mmol/L (98-107) Carbon Dioxide Level 29 mmol/L (21-32) Anion Gap 11 (6-14) Blood Urea Nitrogen 60 mg/dL (7-20) Creatinine 8.4 mg/dL (0.6-1.0) Estimated GFR (Cockcroft-Gault) 6.0 Glucose Level 71 mg/dL (70-99) Calcium Level 8.1 mg/dL (8.5-10.1) Phosphorus Level 10.1 mg/dL (2.6-4.7) Albumin 2.3 g/dL (3.4-5.0) Test 12/17/18 18:03 12/18/18 08:40 Glucose (Fingerstick) 233 mg/dL (70-99) White Blood Count 9.8 x10^3/uL (4.0-11.0) Red Blood Count 3.17 x10^6/uL (3.50-5.40) Hemoglobin 9.4 g/dL (12.0-15.5) Hematocrit 28.1 % (36.0-47.0) Mean Corpuscular Volume 89 fL (79-100) Mean Corpuscular Hemoglobin 30 pg (25-35) Mean Corpuscular Hemoglobin Concent 33 g/dL (31-37) Red Cell Distribution Width 16.8 % (11.5-14.5) Platelet Count 379 x10^3/uL (140-400) Neutrophils (%) (Auto) 72 % (31-73) Lymphocytes (%) (Auto) 15 % (24-48) Monocytes (%) (Auto) 12 % (0-9) Eosinophils (%) (Auto) 1 % (0-3) Basophils (%) (Auto) 1 % (0-3) Neutrophils # (Auto) 7.0 x10^3/uL (1.8-7.7) Lymphocytes # (Auto) 1.5 x10^3/uL (1.0-4.8) Monocytes # (Auto) 1.1 x10^3/uL (0.0-1.1) Eosinophils # (Auto) 0.0 x10^3/uL (0.0-0.7) Basophils # (Auto) 0.1 x10^3/uL (0.0-0.2) Sodium Level 140 mmol/L (136-145) Potassium Level 4.7 mmol/L (3.5-5.1) Chloride Level 101 mmol/L (98-107) Carbon Dioxide Level 32 mmol/L (21-32) Anion Gap 7 (6-14) Blood Urea Nitrogen 37 mg/dL (7-20) Creatinine 5.7 mg/dL (0.6-1.0) Estimated GFR (Cockcroft-Gault) 9.3 Glucose Level 272 mg/dL (70-99) Calcium Level 7.8 mg/dL (8.5-10.1) Phosphorus Level 6.5 mg/dL (2.6-4.7) Albumin 2.2 g/dL (3.4-5.0) Laboratory Tests Test 12/17/18 18:03 12/18/18 08:40 Glucose (Fingerstick) 233 mg/dL (70-99) White Blood Count 9.8 x10^3/uL (4.0-11.0) Red Blood Count 3.17 x10^6/uL (3.50-5.40) Hemoglobin 9.4 g/dL (12.0-15.5) Hematocrit 28.1 % (36.0-47.0) Mean Corpuscular Volume 89 fL (79-100) Mean Corpuscular Hemoglobin 30 pg (25-35) Mean Corpuscular Hemoglobin Concent 33 g/dL (31-37) Red Cell Distribution Width 16.8 % (11.5-14.5) Platelet Count 379 x10^3/uL (140-400) Neutrophils (%) (Auto) 72 % (31-73) Lymphocytes (%) (Auto) 15 % (24-48) Monocytes (%) (Auto) 12 % (0-9) Eosinophils (%) (Auto) 1 % (0-3) Basophils (%) (Auto) 1 % (0-3) Neutrophils # (Auto) 7.0 x10^3/uL (1.8-7.7) Lymphocytes # (Auto) 1.5 x10^3/uL (1.0-4.8) Monocytes # (Auto) 1.1 x10^3/uL (0.0-1.1) Eosinophils # (Auto) 0.0 x10^3/uL (0.0-0.7) Basophils # (Auto) 0.1 x10^3/uL (0.0-0.2) Sodium Level 140 mmol/L (136-145) Potassium Level 4.7 mmol/L (3.5-5.1) Chloride Level 101 mmol/L (98-107) Carbon Dioxide Level 32 mmol/L (21-32) Anion Gap 7 (6-14) Blood Urea Nitrogen 37 mg/dL (7-20) Creatinine 5.7 mg/dL (0.6-1.0) Estimated GFR (Cockcroft-Gault) 9.3 Glucose Level 272 mg/dL (70-99) Calcium Level 7.8 mg/dL (8.5-10.1) Phosphorus Level 6.5 mg/dL (2.6-4.7) Albumin 2.2 g/dL (3.4-5.0) Microbiology 12/14/18 Blood Culture - Preliminary, Resulted NO GROWTH AFTER 4 DAYS Medications Current Medications Fentanyl Citrate (Fentanyl 2ml Vial) 50 mcg 1X ONCE IV Last administered on 12/14/18 02:52; Start 12/14/18 at 01:30; Stop 12/14/18 at 01:32; Status DC Ondansetron HCl (Zofran) 4 mg 1X ONCE IV Last administered on 12/14/18at 02:52; Start 12/14/18 at 01:30; Stop 12/14/18 at 01:32; Status DC Famotidine (Pepcid Vial) 20 mg 1X ONCE IVP Last administered on 12/14/18at 02:52; Start 12/14/18 at 01:30; Stop 12/14/18 at 01:32; Status DC Mupirocin (Bactroban) 1 herber 1X ONCE TP Last administered on 12/14/18at 02:52; Start 12/14/18 at 01:45; Stop 12/14/18 at 01:46; Status DC Mupirocin (Bactroban) 1 herber 1X ONCE TP Last administered on 12/14/18at 02:52; Start 12/14/18 at 02:30; Stop 12/14/18 at 02:31; Status DC Insulin Human Regular (HumuLIN R VIAL) 10 unit 1X ONCE IV ; Start 12/14/18 at 03:30; Stop 12/14/18 at 03:35; Status DC Ondansetron HCl (Zofran) 4 mg PRN Q8HRS PRN IV NAUSEA/VOMITING Last administered on 12/15/18at 00:08; Start 12/14/18 at 04:00; Stop 12/15/18 at 03:59; Status DC Fentanyl Citrate (Fentanyl 2ml Vial) 50 mcg PRN Q2HR PRN IV PAIN Last administered on 12/14/18at 09:00; Start 12/14/18 at 04:00; Stop 12/14/18 at 09:05; Status DC Insulin Human Lispro (HumaLOG) 0-5 UNITS TIDWMEALS SQ Last administered on 12/17/18at 18:13; Start 12/14/18 at 08:00 Dextrose (Dextrose 50%-Water Syringe) 12.5 gm PRN Q15MIN PRN IV SEE COMMENTS; Start 12/14/18 at 04:00 Dextrose 250 ml PRN Q15MIN PRN IV SEE COMMENTS; Start 12/14/18 at 04:00 Albuterol Sulfate (Ventolin Neb Soln) 2.5 mg PRN BID PRN INH SHORTNESS OF BREATH; Start 12/14/18 at 09:00 Alprazolam (Xanax) 0.5 mg PRN TID PRN PO ANXIETY / AGITATION; Start 12/14/18 at 09:00; Stop 12/15/18 at 09:03; Status DC Amlodipine Besylate (Norvasc) 10 mg DAILY PO Last administered on 12/17/18at 14:16; Start 12/14/18 at 09:00 Atorvastatin Calcium (Lipitor) 40 mg HS PO Last administered on 12/16/18at 21:32; Start 12/14/18 at 21:00 Carvedilol (Coreg) 6.25 mg BIDWMEALS PO Last administered on 12/18/18at 09:09; Start 12/14/18 at 09:00 Clonidine HCl (Catapres Tts-2) 1 patch WEEKLY TD Last administered on 12/14/18at 13:25; Start 12/14/18 at 09:00 Vitamin B Complex/ Vitamin C (Pinky-Shreya) 1 tab DAILY PO Last administered on 12/18/18at 09:09; Start 12/14/18 at 09:00 Acetaminophen/ Hydrocodone Bitart (Lortab 10/325) 1 tab PRN Q4HRS PRN PO MODERATE TO SEVERE PAIN Last administered on 12/15/18at 08:05; Start 12/14/18 at 09:00; Stop 12/15/18 at 09:03; Status DC Latanoprost (Xalatan) 1 drop HS OU ; Start 12/14/18 at 21:00 Levothyroxine Sodium (Synthroid) 50 mcg DAILY06 PO Last administered on 12/18/18at 05:51; Start 12/14/18 at 09:00 Lisinopril (Prinivil) 20 mg DAILY PO Last administered on 12/17/18at 14:16; Start 12/14/18 at 09:00 Prochlorperazine Maleate (Compazine) 5 mg PRN TID PRN PO NAUSEA 2ND CHOICE Last administered on 12/15/18at 08:05; Start 12/14/18 at 09:00 Sertraline HCl (Zoloft) 50 mg DAILY PO Last administered on 12/18/18at 09:09; Start 12/14/18 at 09:00 Acetaminophen (Tylenol) 650 mg PRN Q6HRS PRN PO MILD PAIN / TEMP; Start 12/14/18 at 09:00 Cephalexin HCl (Keflex) 500 mg TID PO Last administered on 12/16/18at 14:07; Start 12/14/18 at 09:00; Stop 12/16/18 at 15:12; Status DC Amylase/Lipase/ Protease (Zenpep 5,000) 1 cap TIDWMEALS PO Last administered on 12/18/18at 09:09; Start 12/14/18 at 09:00 Famotidine (Pepcid) 20 mg QHS PO ; Start 12/14/18 at 21:00; Status Cancel Pantoprazole Sodium (Protonix) 40 mg DAILYAC PO Last administered on 12/18/18at 05:51; Start 12/14/18 at 09:00 Fentanyl Citrate (Fentanyl 2ml Vial) 75 mcg PRN Q2HR PRN IV PAIN Last administered on 12/14/18at 11:20; Start 12/14/18 at 09:15; Stop 12/15/18 at 09:03; Status DC Clopidogrel Bisulfate (Plavix) 75 mg DAILYWBKFT PO Last administered on 12/18/18at 09:09; Start 12/14/18 at 10:00 Sodium Chloride 1,000 ml @ 1,000 mls/hr Q1H PRN IV hypotension; Start 12/14/18 at 09:38; Stop 12/14/18 at 15:37; Status DC Acetaminophen (Tylenol) 500 mg 1X PRN PRN PO MILD PAIN / TEMP; Start 12/14/18 at 09:45; Stop 12/15/18 at 09:44; Status DC Diphenhydramine HCl (Benadryl) 25 mg 1X PRN PRN IV ITCHING; Start 12/14/18 at 09:45; Stop 12/15/18 at 09:44; Status DC Diphenhydramine HCl (Benadryl) 25 mg 1X PRN PRN IV ITCHING; Start 12/14/18 at 09:45; Stop 12/15/18 at 09:44; Status DC Sodium Chloride 1,000 ml @ 400 mls/hr Q2H30M PRN IV PATENCY; Start 12/14/18 at 09:38; Stop 12/14/18 at 21:37; Status DC Info (PHARMACY MONITORING -- do not chart) 1 each PRN DAILY PRN MC SEE COMMENTS; Start 12/14/18 at 09:45 Alprazolam (Xanax) 0.25 mg PRN DAILY PRN PO ANXIETY / AGITATION Last administered on 12/17/18 14:16; Start 12/16/18 at 09:00 Fentanyl Citrate (Fentanyl 2ml Vial) 75 mcg PRN Q4HRS PRN IV PAIN Last administered on 12/16/18 03:26; Start 12/15/18 at 09:15; Stop 12/16/18 at 10:26; Status DC Acetaminophen/ Hydrocodone Bitart (Lortab 10/325) 1 tab PRN Q6HRS PRN PO MODERATE TO SEVERE PAIN Last administered on 12/18/18 05:51; Start 12/15/18 at 09:15 Nicotine (Nicoderm Cq 21mg) 1 patch DAILY TD Last administered on 12/17/18 14:16; Start 12/15/18 at 12:00 Fentanyl (Duragesic 12mcg/ Hr Patch) 1 patch Q3DAYS TD Last administered on 12/18/18 09:09; Start 12/15/18 at 12:15 Ondansetron HCl (Zofran Odt) 4 mg PRN Q6HRS PRN PO NAUSEA/VOMITING 1ST CHOICE Last administered on 12/15/18at 12:42; Start 12/15/18 at 12:15 Fentanyl Citrate (Fentanyl 2ml Vial) 75 mcg PRN BID PRN IV SEVERE PAIN Last administered on 12/18/18 02:01; Start 12/16/18 at 14:00 Cephalexin HCl (Keflex) 250 mg BID PO Last administered on 12/18/18 09:09; Start 12/16/18 at 21:00 Sodium Chloride 1,000 ml @ 1,000 mls/hr Q1H PRN IV hypotension; Start 12/17/18 at 08:23; Stop 12/17/18 at 14:22; Status DC Acetaminophen (Tylenol) 500 mg 1X PRN PRN PO MILD PAIN / TEMP; Start 12/17/18 at 08:30; Stop 12/18/18 at 08:29; Status DC Diphenhydramine HCl (Benadryl) 25 mg 1X PRN PRN IV ITCHING; Start 12/17/18 at 08:30; Stop 12/18/18 at 08:29; Status DC Diphenhydramine HCl (Benadryl) 25 mg 1X PRN PRN IV ITCHING; Start 12/17/18 at 08:30; Stop 12/18/18 at 08:29; Status DC Sodium Chloride 1,000 ml @ 400 mls/hr Q2H30M PRN IV PATENCY; Start 12/17/18 at 08:23; Stop 12/17/18 at 20:22; Status DC Info (PHARMACY MONITORING -- do not chart) 1 each PRN DAILY PRN MC SEE COMMENTS; Start 12/17/18 at 08:30 Lactobacillus Rhamnosus (Culturelle) 1 cap BID PO Last administered on 12/18/18at 09:09; Start 12/17/18 at 21:00 Zolpidem Tartrate (Ambien) 5 mg PRN QHS PRN PO INSOMNIA, MAY REPEAT IN 1HR Last administered on 12/17/18at 21:49; Start 12/17/18 at 21:45 Active Scripts Active Keflex (Cephalexin) 500 Mg Capsule 1 Cap PO TID Pinky-Shreya Tablet (Folic Acid/Vitamin B Comp W-C) 0.8 Mg Tablet 1 Tab PO DAILY Hydrocodone-Apap 10-325 (Hydrocodone Bit/Acetaminophen) 1 Tab Tablet 1 Tab PO PRN Q4HRS PRN [Darbepoetin Jarrett In Polysorbat] 60 MCG/0.3 ML Disp.syrin 60 Mcg SQ WEEKLYHS 30 Days Alprazolam 0.5 Mg Tablet 0.5 Mg PO PRN TID PRN MDD 1 Tylenol (Acetaminophen) 325 Mg Capsule 650 Mg PO Q6-8HRS PRN Zantac (Ranitidine Hcl) 300 Mg Tablet 1 Tab PO QHS Compazine (Prochlorperazine Maleate) 5 Mg Tablet 5 Mg PO PRN TID PRN 10 Days [Pantoprazole] 40 MG Tablet. 40 Mg PO DAILYAC 30 Days Reported Zoloft (Sertraline Hcl) 50 Mg Tablet 50 Mg PO DAILY Lisinopril 20 Mg Tablet 20 Mg PO DAILY Coreg (Carvedilol) 6.25 Mg Tablet 6.25 Mg PO BIDWMEALS Creon 6,000 Units Capsule (Lipase/Protease/Amylase) 1 Each Capsule. 1 Tab PO TID Proair Hfa (Albuterol Sulfate) 8.5 Gm Hfa.aer.ad 2 Puff INH BID PRN Levothyroxine Sodium 50 Mcg Tablet 1 Tab PO DAILY Clonidine Tts-2 (Clonidine) 1 Each Patch.tdwk 1 Patch TD WEEKLY Amlodipine Besylate 5 Mg Tablet 10 Mg PO DAILY Atorvastatin Calcium 40 Mg Tablet 40 Mg PO HS Latanoprost 2.5 Ml Drops 1 Drop EACHEYE HS Vitals/I & O Vital Sign - Last 24 Hours 12/17/18 12/17/18 12/17/18 12/17/18 10:48 14:16 14:16 14:16 Pulse 68 68 Resp 20 20 B/P (MAP) 151/45 151/45 Pulse Ox 94 93 O2 Delivery Room Air Room Air 12/17/18 12/17/18 12/17/18 12/17/18 14:16 15:00 17:56 17:56 Temp 97.9 97.9 Pulse 68 64 64 Resp 16 20 B/P (MAP) 151/45 145/58 (87) 145/58 Pulse Ox 94 94 O2 Delivery Room Air Room Air 12/17/18 12/17/18 12/17/18 12/17/18 17:57 19:00 19:45 20:00 Temp 97.8 97.8 Pulse 62 Resp 20 16 19 B/P (MAP) 138/59 (85) Pulse Ox 94 94 94 O2 Delivery Room Air Room Air Room Air Room Air 12/17/18 12/17/18 12/18/18 12/18/18 22:55 23:59 02:01 05:51 Temp 98.8 98.8 Pulse 74 Resp 19 18 20 18 B/P (MAP) 144/64 (90) Pulse Ox 100 100 100 100 O2 Delivery Room Air Room Air Room Air Room Air 12/18/18 12/18/18 12/18/1819 06:48 06:49 06:53 09:09 Resp 18 20 20 Pulse Ox 100 100 100 O2 Delivery Room Air Room Air Room Air Room Air 12/18/18 09:09 Pulse 78 B/P (MAP) 147/32 Intake and Output 12/17/18 12/17/18 12/18/18 14:59 22:59 06:59 Intake Total 500 ml 300 ml Balance 500 ml 300 ml LELA KOWALSKI MD Dec 18, 2018 10:31
[2018-12-18] MEDS: ALPRAZolam 0.5 MG TABLET PO PRN (10:49)
[2018-12-18 11:00] VITALS: BP 166/46
--- NOTE | 2018-12-18 13:10 | PDOC ---
PROGRESS NOTES Subjective Subjective "I need to talk to Dr. Villeda! 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 Patient has called her daughter on her cell phone and daughter is on speaker phone. Palliative care and marriage and family social worker is at the bedside with me. Left foot: dressing has been removed. Foot warm. Left 5th toe amputation wound base is dry with the appearance of dried slough material. Skin edges are clean. No erythema or cellulitis to foot noted. She does not complain of pain with manipulation of the dressing or wound inspection. Assessment/Plan: 1. Palliative care and social media executive are awaiting the arrival of patient's daughter to discuss plan of care. RN reported to me that the patient will not keep a dressing on the left foot wound. RN talked her into allowing a dressing this morning. The base of the wound is dry and does not have granulation tissue present. It is not infected either but non-healing. Most likely, the patient would benefit from superficial debridement to expose healthy tissue. Based upon the patient's demonstration today, she would not tolerate this at the bedside. I did talk to the patient and her daughter over speaker phone of possible need fo wound debridement in the OR. Patient moaned "I don't want more surgery!" But also states I cannot be awake for anything done to this. Await results of family meeting. At this time, no intervention from a vascular perspective is planned. 2. I did not view the right BKA incision at this time due to emotional outburst. RN reported that it looked fine. 3. PAD - ultrasound upon admission does indicate Left common and superficial femoral, popliteal, and anterior tibial arteries remain grossly patent. Posterior tibial artery and dorsalis pedis artery remain occluded. Patient has been restarted on antiplatelet therapy with plavix during this admission but unsure that she was taking after angioplasty of the left anterior tibial artery on 12/07/2018. Vital Signs Date Time Temp Pulse Resp B/P (MAP) Pulse Ox O2 Delivery O2 Flow Rate FiO2 12/18/18 11:57 Room Air 12/18/18 11:00 98.1 81 18 166/46 (86) 96 98.1 Intake and Output 12/18/18 07:00 Intake Total 800 ml Balance 800 ml Intake Oral 800 ml # Voids 3 # Bowel Movements 4 Assessment Assessment Problems Medical Problems: (1) Anemia Status: Chronic (2) Diabetic peripheral neuropathy associated with type 2 diabetes mellitus Status: Chronic (3) ESRD on hemodialysis Status: Chronic (4) Fall Status: Acute (5) Hyperglycemia Status: Acute (6) Hyperkalemia Status: Acute (7) PAD (peripheral artery disease) Status: Chronic Comment Review of Relevant I have reviewed the following items pamela (where applicable) has been applied. Labs Laboratory Tests Test 12/16/18 16:44 12/17/18 07:10 12/17/18 07:35 12/17/18 08:00 Glucose (Fingerstick) 86 mg/dL (70-99) 65 mg/dL (70-99) 95 mg/dL (70-99) White Blood Count 9.1 x10^3/uL (4.0-11.0) Red Blood Count 3.06 x10^6/uL (3.50-5.40) Hemoglobin 9.1 g/dL (12.0-15.5) Hematocrit 26.8 % (36.0-47.0) Mean Corpuscular Volume 88 fL (79-100) Mean Corpuscular Hemoglobin 30 pg (25-35) Mean Corpuscular Hemoglobin Concent 34 g/dL (31-37) Red Cell Distribution Width 17.2 % (11.5-14.5) Platelet Count 374 x10^3/uL (140-400) Neutrophils (%) (Auto) 74 % (31-73) Lymphocytes (%) (Auto) 16 % (24-48) Monocytes (%) (Auto) 8 % (0-9) Eosinophils (%) (Auto) 1 % (0-3) Basophils (%) (Auto) 1 % (0-3) Neutrophils # (Auto) 6.7 x10^3/uL (1.8-7.7) Lymphocytes # (Auto) 1.5 x10^3/uL (1.0-4.8) Monocytes # (Auto) 0.8 x10^3/uL (0.0-1.1) Eosinophils # (Auto) 0.0 x10^3/uL (0.0-0.7) Basophils # (Auto) 0.1 x10^3/uL (0.0-0.2) Sodium Level 138 mmol/L (136-145) Potassium Level 5.7 mmol/L (3.5-5.1) Chloride Level 98 mmol/L (98-107) Carbon Dioxide Level 29 mmol/L (21-32) Anion Gap 11 (6-14) Blood Urea Nitrogen 60 mg/dL (7-20) Creatinine 8.4 mg/dL (0.6-1.0) Estimated GFR (Cockcroft-Gault) 6.0 Glucose Level 71 mg/dL (70-99) Calcium Level 8.1 mg/dL (8.5-10.1) Phosphorus Level 10.1 mg/dL (2.6-4.7) Albumin 2.3 g/dL (3.4-5.0) Test 12/17/18 18:03 12/18/18 08:40 12/18/18 11:31 Glucose (Fingerstick) 233 mg/dL (70-99) 275 mg/dL (70-99) White Blood Count 9.8 x10^3/uL (4.0-11.0) Red Blood Count 3.17 x10^6/uL (3.50-5.40) Hemoglobin 9.4 g/dL (12.0-15.5) Hematocrit 28.1 % (36.0-47.0) Mean Corpuscular Volume 89 fL (79-100) Mean Corpuscular Hemoglobin 30 pg (25-35) Mean Corpuscular Hemoglobin Concent 33 g/dL (31-37) Red Cell Distribution Width 16.8 % (11.5-14.5) Platelet Count 379 x10^3/uL (140-400) Neutrophils (%) (Auto) 72 % (31-73) Lymphocytes (%) (Auto) 15 % (24-48) Monocytes (%) (Auto) 12 % (0-9) Eosinophils (%) (Auto) 1 % (0-3) Basophils (%) (Auto) 1 % (0-3) Neutrophils # (Auto) 7.0 x10^3/uL (1.8-7.7) Lymphocytes # (Auto) 1.5 x10^3/uL (1.0-4.8) Monocytes # (Auto) 1.1 x10^3/uL (0.0-1.1) Eosinophils # (Auto) 0.0 x10^3/uL (0.0-0.7) Basophils # (Auto) 0.1 x10^3/uL (0.0-0.2) Sodium Level 140 mmol/L (136-145) Potassium Level 4.7 mmol/L (3.5-5.1) Chloride Level 101 mmol/L (98-107) Carbon Dioxide Level 32 mmol/L (21-32) Anion Gap 7 (6-14) Blood Urea Nitrogen 37 mg/dL (7-20) Creatinine 5.7 mg/dL (0.6-1.0) Estimated GFR (Cockcroft-Gault) 9.3 Glucose Level 272 mg/dL (70-99) Calcium Level 7.8 mg/dL (8.5-10.1) Phosphorus Level 6.5 mg/dL (2.6-4.7) Albumin 2.2 g/dL (3.4-5.0) Laboratory Tests Test 12/17/18 18:03 12/18/18 08:40 12/18/18 11:31 Glucose (Fingerstick) 233 mg/dL (70-99) 275 mg/dL (70-99) White Blood Count 9.8 x10^3/uL (4.0-11.0) Red Blood Count 3.17 x10^6/uL (3.50-5.40) Hemoglobin 9.4 g/dL (12.0-15.5) Hematocrit 28.1 % (36.0-47.0) Mean Corpuscular Volume 89 fL (79-100) Mean Corpuscular Hemoglobin 30 pg (25-35) Mean Corpuscular Hemoglobin Concent 33 g/dL (31-37) Red Cell Distribution Width 16.8 % (11.5-14.5) Platelet Count 379 x10^3/uL (140-400) Neutrophils (%) (Auto) 72 % (31-73) Lymphocytes (%) (Auto) 15 % (24-48) Monocytes (%) (Auto) 12 % (0-9) Eosinophils (%) (Auto) 1 % (0-3) Basophils (%) (Auto) 1 % (0-3) Neutrophils # (Auto) 7.0 x10^3/uL (1.8-7.7) Lymphocytes # (Auto) 1.5 x10^3/uL (1.0-4.8) Monocytes # (Auto) 1.1 x10^3/uL (0.0-1.1) Eosinophils # (Auto) 0.0 x10^3/uL (0.0-0.7) Basophils # (Auto) 0.1 x10^3/uL (0.0-0.2) Sodium Level 140 mmol/L (136-145) Potassium Level 4.7 mmol/L (3.5-5.1) Chloride Level 101 mmol/L (98-107) Carbon Dioxide Level 32 mmol/L (21-32) Anion Gap 7 (6-14) Blood Urea Nitrogen 37 mg/dL (7-20) Creatinine 5.7 mg/dL (0.6-1.0) Estimated GFR (Cockcroft-Gault) 9.3 Glucose Level 272 mg/dL (70-99) Calcium Level 7.8 mg/dL (8.5-10.1) Phosphorus Level 6.5 mg/dL (2.6-4.7) Albumin 2.2 g/dL (3.4-5.0) Microbiology 12/14/18 Blood Culture - Preliminary, Resulted NO GROWTH AFTER 4 DAYS Medications Current Medications Fentanyl Citrate (Fentanyl 2ml Vial) 50 mcg 1X ONCE IV Last administered on 12/14/18 02:52; Start 12/14/18 at 01:30; Stop 12/14/18 at 01:32; Status DC Ondansetron HCl (Zofran) 4 mg 1X ONCE IV Last administered on 12/14/18 02:52; Start 12/14/18 at 01:30; Stop 12/14/18 at 01:32; Status DC Famotidine (Pepcid Vial) 20 mg 1X ONCE IVP Last administered on 12/14/18 02:52; Start 12/14/18 at 01:30; Stop 12/14/18 at 01:32; Status DC Mupirocin (Bactroban) 1 herber 1X ONCE TP Last administered on 12/14/18at 02:52; Start 12/14/18 at 01:45; Stop 12/14/18 at 01:46; Status DC Mupirocin (Bactroban) 1 herber 1X ONCE TP Last administered on 9/20/19at 02:52; Start 12/14/18 at 02:30; Stop 12/14/18 at 02:31; Status DC Insulin Human Regular (HumuLIN R VIAL) 10 unit 1X ONCE IV ; Start 12/14/18 at 03:30; Stop 12/14/18 at 03:35; Status DC Ondansetron HCl (Zofran) 4 mg PRN Q8HRS PRN IV NAUSEA/VOMITING Last administered on 12/15/18at 00:08; Start 12/14/18 at 04:00; Stop 12/15/18 at 03:59; Status DC Fentanyl Citrate (Fentanyl 2ml Vial) 50 mcg PRN Q2HR PRN IV PAIN Last administered on 12/14/18at 09:00; Start 12/14/18 at 04:00; Stop 12/14/18 at 09:05; Status DC Insulin Human Lispro (HumaLOG) 0-5 UNITS TIDWMEALS SQ Last administered on 12/18/18at 12:03; Start 12/14/18 at 08:00 Dextrose (Dextrose 50%-Water Syringe) 12.5 gm PRN Q15MIN PRN IV SEE COMMENTS; Start 12/14/18 at 04:00 Dextrose 250 ml PRN Q15MIN PRN IV SEE COMMENTS; Start 12/14/18 at 04:00 Albuterol Sulfate (Ventolin Neb Soln) 2.5 mg PRN BID PRN INH SHORTNESS OF BREATH; Start 12/14/18 at 09:00 Alprazolam (Xanax) 0.5 mg PRN TID PRN PO ANXIETY / AGITATION; Start 12/14/18 at 09:00; Stop 12/15/18 at 09:03; Status DC Amlodipine Besylate (Norvasc) 10 mg DAILY PO Last administered on 12/17/18at 14:16; Start 12/14/18 at 09:00 Atorvastatin Calcium (Lipitor) 40 mg HS PO Last administered on 12/16/18at 21:32; Start 12/14/18 at 21:00 Carvedilol (Coreg) 6.25 mg BIDWMEALS PO Last administered on 12/18/18at 09:09; Start 12/14/18 at 09:00 Clonidine HCl (Catapres Tts-2) 1 patch WEEKLY TD Last administered on 12/14/18at 13:25; Start 12/14/18 at 09:00 Vitamin B Complex/ Vitamin C (Pinky-Shreya) 1 tab DAILY PO Last administered on 12/18/18at 09:09; Start 12/14/18 at 09:00 Acetaminophen/ Hydrocodone Bitart (Lortab 10/325) 1 tab PRN Q4HRS PRN PO MODERATE TO SEVERE PAIN Last administered on 12/15/18 08:05; Start 12/14/18 at 09:00; Stop 12/15/18 at 09:03; Status DC Latanoprost (Xalatan) 1 drop HS OU ; Start 12/14/18 at 21:00 Levothyroxine Sodium (Synthroid) 50 mcg DAILY06 PO Last administered on 12/18/18 05:51; Start 12/14/18 at 09:00 Lisinopril (Prinivil) 20 mg DAILY PO Last administered on 12/17/18 14:16; Start 12/14/18 at 09:00 Prochlorperazine Maleate (Compazine) 5 mg PRN TID PRN PO NAUSEA 2ND CHOICE Last administered on 12/15/18 08:05; Start 12/14/18 at 09:00 Sertraline HCl (Zoloft) 50 mg DAILY PO Last administered on 12/18/18 09:09; Start 12/14/18 at 09:00 Acetaminophen (Tylenol) 650 mg PRN Q6HRS PRN PO MILD PAIN / TEMP; Start 12/14/18 at 09:00 Cephalexin HCl (Keflex) 500 mg TID PO Last administered on 12/16/18at 14:07; Start 12/14/18 at 09:00; Stop 12/16/18 at 15:12; Status DC Amylase/Lipase/ Protease (Zenpep 5,000) 1 cap TIDWMEALS PO Last administered on 12/18/18 11:57; Start 12/14/18 at 09:00 Famotidine (Pepcid) 20 mg QHS PO ; Start 12/14/18 at 21:00; Status Cancel Pantoprazole Sodium (Protonix) 40 mg DAILYAC PO Last administered on 12/18/18 05:51; Start 12/14/18 at 09:00 Fentanyl Citrate (Fentanyl 2ml Vial) 75 mcg PRN Q2HR PRN IV PAIN Last administered on 12/14/18at 11:20; Start 12/14/18 at 09:15; Stop 12/15/18 at 09:03; Status DC Clopidogrel Bisulfate (Plavix) 75 mg DAILYWBKFT PO Last administered on 12/18/18at 09:09; Start 12/14/18 at 10:00 Sodium Chloride 1,000 ml @ 1,000 mls/hr Q1H PRN IV hypotension; Start 12/14/18 at 09:38; Stop 12/14/18 at 15:37; Status DC Acetaminophen (Tylenol) 500 mg 1X PRN PRN PO MILD PAIN / TEMP; Start 12/14/18 at 09:45; Stop 12/15/18 at 09:44; Status DC Diphenhydramine HCl (Benadryl) 25 mg 1X PRN PRN IV ITCHING; Start 12/14/18 at 09:45; Stop 12/15/18 at 09:44; Status DC Diphenhydramine HCl (Benadryl) 25 mg 1X PRN PRN IV ITCHING; Start 12/14/18 at 09:45; Stop 12/15/18 at 09:44; Status DC Sodium Chloride 1,000 ml @ 400 mls/hr Q2H30M PRN IV PATENCY; Start 12/14/18 at 09:38; Stop 12/14/18 at 21:37; Status DC Info (PHARMACY MONITORING -- do not chart) 1 each PRN DAILY PRN MC SEE COMMENTS; Start 12/14/18 at 09:45 Alprazolam (Xanax) 0.25 mg PRN DAILY PRN PO ANXIETY / AGITATION Last admi nistered on 12/18/18at 10:50; Start 12/16/18 at 09:00 Fentanyl Citrate (Fentanyl 2ml Vial) 75 mcg PRN Q4HRS PRN IV PAIN Last adm inistered on 12/16/18at 03:26; Start 12/15/18 at 09:15; Stop 12/16/18 at 10:26; Status DC Acetaminophen/ Hydrocodone Bitart (Lortab 10/325) 1 tab PRN Q6HRS PRN PO MODERATE TO SEVERE PAIN Last administered on 12/18/18at 11:57; Start 12/15/18 at 09:15 Nicotine (Nicoderm Cq 21mg) 1 patch DAILY TD Last administered on 12/17/18 14:16; Start 12/15/18 at 12:00 Fentanyl (Duragesic 12mcg/ Hr Patch) 1 patch Q3DAYS TD Last administered on 12/18/18 09:09; Start 12/15/18 at 12:15 Ondansetron HCl (Zofran Odt) 4 mg PRN Q6HRS PRN PO NAUSEA/VOMITING 1ST CHOICE Last administered on 12/15/18at 12:42; Start 12/15/18 at 12:15 Fentanyl Citrate (Fentanyl 2ml Vial) 75 mcg PRN BID PRN IV SEVERE PAIN Last administered on 12/18/18 02:01; Start 12/16/18 at 14:00 Cephalexin HCl (Keflex) 250 mg BID PO Last administered on 12/18/18 09:09; Start 12/16/18 at 21:00 Sodium Chloride 1,000 ml @ 1,000 mls/hr Q1H PRN IV hypotension; Start 12/17/18 at 08:23; Stop 12/17/18 at 14:22; Status DC Acetaminophen (Tylenol) 500 mg 1X PRN PRN PO MILD PAIN / TEMP; Start 12/17/18 at 08:30; Stop 12/18/18 at 08:29; Status DC Diphenhydramine HCl (Benadryl) 25 mg 1X PRN PRN IV ITCHING; Start 12/17/18 at 08:30; Stop 12/18/18 at 08:29; Status DC Diphenhydramine HCl (Benadryl) 25 mg 1X PRN PRN IV ITCHING; Start 12/17/18 at 08:30; Stop 12/18/18 at 08:29; Status DC Sodium Chloride 1,000 ml @ 400 mls/hr Q2H30M PRN IV PATENCY; Start 12/17/18 at 08:23; Stop 12/17/18 at 20:22; Status DC Info (PHARMACY MONITORING -- do not chart) 1 each PRN DAILY PRN MC SEE COMMENTS; Start 12/17/18 at 08:30 Lactobacillus Rhamnosus (Culturelle) 1 cap BID PO Last administered on 12/18/18at 09:09; Start 12/17/18 at 21:00 Zolpidem Tartrate (Ambien) 5 mg PRN QHS PRN PO INSOMNIA, MAY REPEAT IN 1HR Last administered on 12/17/18at 21:49; Start 12/17/18 at 21:45 Active Scripts Active Keflex (Cephalexin) 500 Mg Capsule 1 Cap PO TID Pinky-Shreya Tablet (Folic Acid/Vitamin B Comp W-C) 0.8 Mg Tablet 1 Tab PO DAILY Hydrocodone-Apap 10-325 (Hydrocodone Bit/Acetaminophen) 1 Tab Tablet 1 Tab PO PRN Q4HRS PRN [Darbepoetin Jarrett In Polysorbat] 60 MCG/0.3 ML Disp.syrin 60 Mcg SQ WEEKLYHS 30 Days Alprazolam 0.5 Mg Tablet 0.5 Mg PO PRN TID PRN MDD 1 Tylenol (Acetaminophen) 325 Mg Capsule 650 Mg PO Q6-8HRS PRN Zantac (Ranitidine Hcl) 300 Mg Tablet 1 Tab PO QHS Compazine (Prochlorperazine Maleate) 5 Mg Tablet 5 Mg PO PRN TID PRN 10 Days [Pantoprazole] 40 MG Tablet. 40 Mg PO DAILYAC 30 Days Reported Zoloft (Sertraline Hcl) 50 Mg Tablet 50 Mg PO DAILY Lisinopril 20 Mg Tablet 20 Mg PO DAILY Coreg (Carvedilol) 6.25 Mg Tablet 6.25 Mg PO BIDWMEALS Shante Knowles 6,000 Units Capsule (Lipase/Protease/Amylase) 1 Each Capsule. 1 Tab PO TID Proair Hfa (Albuterol Sulfate) 8.5 Gm Hfa.aer.ad 2 Puff INH BID PRN Levothyroxine Sodium 50 Mcg Tablet 1 Tab PO DAILY Clonidine Tts-2 (Clonidine) 1 Each Patch.tdwk 1 Patch TD WEEKLY Amlodipine Besylate 5 Mg Tablet 10 Mg PO DAILY Atorvastatin Calcium 40 Mg Tablet 40 Mg PO HS Latanoprost 2.5 Ml Drops 1 Drop EACHEYE HS Vitals/I & O Vital Sign - Last 24 Hours 12/17/18 12/17/18 12/17/18 12/17/18 14:16 14:16 14:16 14:16 Pulse 68 68 68 Resp 20 B/P (MAP) 151/45 151/45 151/45 Pulse Ox 93 O2 Delivery Room Air 12/17/18 12/17/18 12/17/1823/19 15:00 17:56 17:56 17:57 Temp 97.9 97.9 Pulse 64 64 Resp 16 20 20 B/P (MAP) 145/58 (87) 145/58 Pulse Ox 94 94 94 O2 Delivery Room Air Room Air Room Air 12/17/18 12/17/18 12/17/18 12/17/18 19:00 19:45 20:00 22:55 Temp 97.8 98.8 97.8 98.8 Pulse 62 74 Resp 16 19 19 B/P (MAP) 138/59 (85) 144/64 (90) Pulse Ox 94 94 100 O2 Delivery Room Air Room Air Room Air Room Air 12/17/18 12/18/18 12/18/18 12/18/18 23:59 02:01 05:51 06:48 Resp 18 20 18 18 Pulse Ox 100 100 100 100 O2 Delivery Room Air Room Air Room Air Room Air 12/18/18 12/18/18 12/18/18 12/18/18 06:49 06:53 09:00 09:09 Pulse 78 Resp 20 20 18 B/P (MAP) 147/32 (70) Pulse Ox 100 100 98 O2 Delivery Room Air Room Air Room Air Room Air 12/18/18 12/18/18 12/18/18 09:09 11:00 11:57 Temp 98.1 98.1 Pulse 78 81 Resp 18 B/P (MAP) 147/32 166/46 (86) Pulse Ox 96 O2 Delivery Room Air Room Air Intake and Output 12/17/18 12/17/18 12/18/18 15:00 23:00 07:00 Intake Total 500 ml 300 ml Balance 500 ml 300 ml KATHY MCLEAN APRN Dec 18, 2018 13:10
--- NOTE | 2018-12-18 13:46 | PDOC ---
Renal-Progress Notes Subjective Notes Notes NO NEW COMPLAINTS History of Present Illness Hx of present illness STABLE Vitals Vitals Vital Signs Date Time Temp Pulse Resp B/P (MAP) Pulse Ox O2 Delivery O2 Flow Rate FiO2 12/18/18 11:57 Room Air 12/18/18 11:00 98.1 81 18 166/46 (86) 96 98.1 Weight Weight [ ] I.O. Intake and Output Intake and Output 12/18/18 07:00 Intake Total 800 ml Balance 800 ml Intake Oral 800 ml # Voids 3 # Bowel Movements 4 Labs Labs Laboratory Tests Test 12/17/18 18:03 12/18/18 08:40 12/18/18 11:31 Glucose (Fingerstick) 233 mg/dL (70-99) 275 mg/dL (70-99) White Blood Count 9.8 x10^3/uL (4.0-11.0) Red Blood Count 3.17 x10^6/uL (3.50-5.40) Hemoglobin 9.4 g/dL (12.0-15.5) Hematocrit 28.1 % (36.0-47.0) Mean Corpuscular Volume 89 fL (79-100) Mean Corpuscular Hemoglobin 30 pg (25-35) Mean Corpuscular Hemoglobin Concent 33 g/dL (31-37) Red Cell Distribution Width 16.8 % (11.5-14.5) Platelet Count 379 x10^3/uL (140-400) Neutrophils (%) (Auto) 72 % (31-73) Lymphocytes (%) (Auto) 15 % (24-48) Monocytes (%) (Auto) 12 % (0-9) Eosinophils (%) (Auto) 1 % (0-3) Basophils (%) (Auto) 1 % (0-3) Neutrophils # (Auto) 7.0 x10^3/uL (1.8-7.7) Lymphocytes # (Auto) 1.5 x10^3/uL (1.0-4.8) Monocytes # (Auto) 1.1 x10^3/uL (0.0-1.1) Eosinophils # (Auto) 0.0 x10^3/uL (0.0-0.7) Basophils # (Auto) 0.1 x10^3/uL (0.0-0.2) Sodium Level 140 mmol/L (136-145) Potassium Level 4.7 mmol/L (3.5-5.1) Chloride Level 101 mmol/L (98-107) Carbon Dioxide Level 32 mmol/L (21-32) Anion Gap 7 (6-14) Blood Urea Nitrogen 37 mg/dL (7-20) Creatinine 5.7 mg/dL (0.6-1.0) Estimated GFR (Cockcroft-Gault) 9.3 Glucose Level 272 mg/dL (70-99) Calcium Level 7.8 mg/dL (8.5-10.1) Phosphorus Level 6.5 mg/dL (2.6-4.7) Albumin 2.2 g/dL (3.4-5.0) Micro Micro Microbiology 12/14/18 Blood Culture - Preliminary, Resulted NO GROWTH AFTER 4 DAYS Review of Systems Constitutional: yes: alert, oriented Ears/Nose/Throat: Yes: no symptom reported Eyes: Yes: no symptom reported Pulmonary: Yes no symptom reported Cardiovascular: Yes no symptom reported Gastrointestional: Yes: no symptom reported Genitourinary: Yes: no symptom reported Musculoskeletal: Yes: no symptom reported Skin: Yes no symptom reported Psychiatric/Neurological: Yes: no symptom reported Endocrine: Yes: no symptom reported Hematologic/Lymphatic: Yes: no symptom reported Physical Exam General Appearance: no apparent distress Respiratory: bilateral CTA Heart: S1S2 Abdomen: soft, bowel sounds present Extremities: pulses present Neurology: alert, oriented Assessment Assessment IMP ESRD ANEMIA HTN PAD STUMP PAIN S/P BKA RECENTLY NON COMPLIANCE PLAN HD TOMORROW WOUND CARE ARANESP ENC COMPLIANCE BENY PAINTER MD Dec 18, 2018 13:46
--- NOTE | 2018-12-18 13:49 | PDOC2 ---
PALLIATIVE CARE Palliative Care Note Palliative Care Patient alert. Sitting up on side of bed eating [employer] chicken tenders brought in by daughter Aimee. Met with patient, daughter Feng Yu to discuss goals of care and discharge plan. Reviewed medical condition and discussion about debridement of wound on Left f oot. Patient's daughter encouraged patient to allow debridement for better wound healing and less pain. Understands this procedure would take place in the operating room to allow better sedation/pain control. Patient asked to be notified when this was scheduled. Discussed options for care when discharged. Patient adamantly declines shelter for rehabilitation. Informed physical therapy at home is not an option secondary insurance. Per Aimee " this will take all her money and since [address] [employer] housing pays for her rent she needs to go home" Discussed Code Status: Patient clearly and adamantly states she does not want to be put on breathing machine or have chest compressions if her heart stops or she stops breathing. "Just let me go" Maureen states 'that means you will flat line" Confirmed that patient likely would without this attempt. Outside the Hospital DNR/DNI form signed by patient. Encouraged patient to complete AD allowing Maureen to make her health care decisions. Patient stating she does not want to come back to the hospital. (Patient using inappropriate language and behavior--pulling off dressings and throwing them on the floor) Option of comfort care provided. Did not state she was interested only that she does not want to come back to any hospital. Above reviewed with Dr. De Guzman. Will call to update for possible debridement and then update patient. DNR/DNI per request of family. KAYLYN LE Dec 18, 2018 13:49
--- NOTE | 2018-12-18 14:03 | NUR ---
SW following pt for dc planning. Spoke with pt and pt's daughter, Kimberli with Palliative Care to discuss goals of care. Pt keeps saying she wants to go home and pt's daughter states going to [facility] not an option. Pt's daughter reports she has been looking into other places as pt's current apartment has stairs. Daughter states [address] 8 is paying for pt's rent and pt does not need to go to [place]. SWer discussed it is policy to give up SSI when someone considers placement. Pt also declining placement but yesterday she had requested SWer to help her get to [facility]. SWer reminded pt about this conversation and asked how SWer can be more helpful- pt replied 'just let me go home'. Pt did not reply when asked on how she will get into/out of her home to go dialysis. Pt states she has w/c at home. Plan 1. SWer cancelled LTC referrals, pt was denied at [facility] due to multiple hx of AMA. Pt has poor insight in regards to her chronic medical condition and her ability to care for herself at home. 2. Pt's daughter requested if pt is able to do therapy in the home, SWer discussed as pt has medicaid, it will be difficult to find a home health agency that will provide in home PT/OT. SWer discussed Pt was sent to rehab hospital to address this but left AMA, 3. Please refer to Palliative care notes about goals of care discussions. Pt has signed Outside hospital DNR form and has verbalized understanding on what that meant for her. Will continue to assist with dc plan as needed.
[2018-12-18 15:00] VITALS: BP 164/58
--- NOTE | 2018-12-18 15:30 | NUR ---
Wound Care Pt seen for wound care follow up re: L lateral foot wound. Wound was MARQUIS upon arrival, pt willing to allow WCRNs to redress wound. L lateral foot wound pale yellow and dry, no drainage noted, wound cleaned and redressed with saline moistened Aquacel AG, gauze and tape, reminded pt that wound should not be left open d/t infection. 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 Left groin old puncture site with scar tissue, but no wound. No other wounds noted on full skin inspection.
--- NOTE | 2018-12-18 15:30 | NUR ---
Earlier today at 1100 made round pt resting in bed visiting with daughter. Dressing off left foot. When asked pt states it was too tight. Wound care here and placed new dressing. Cont. monitor.
--- NOTE | 2018-12-18 17:47 | NUR ---
Not eating at this time. Sleeping. Asked not to be disturbed.
[2018-12-18 19:00] VITALS: BP 138/40
[2018-12-18] MEDS: ZOLPIDEM 5 MG TABLET. PO PRN (20:00)
[2018-12-18] MEDS: ONDANSETRON ODT 4 MG TAB.RAPDIS. PO PRN (20:00)
[2018-12-18] MEDS: ATORVASTATIN CALCIUM 40 MG TABLET. PO SCH (20:00)
[2018-12-18] MEDS: LATANOPROST 0.005% OPHTH SOLUTION 2.5ML BOTTLE. OU SCH (20:11)
[2018-12-18] MEDS: DARBEPOETIN ALFA 60 MCG/0.3 ML DISP.SYRIN. SQ SCH (20:11)
[2018-12-19] VITALS (10 sets, daily range): BP systolic 137–181; BP diastolic 45–71
[2018-12-19] MEDS: HYDROcodone/APAP 10/325 1 TAB TABLET PO PRN ×3 (00:30→18:52)
[2018-12-19] MEDS: fentaNYL PF VIAL 100 MCG/2 ML VIAL IV PRN ×2 (02:06→15:15)
--- NOTE | 2018-12-19 02:10 | NUR ---
Patient verbally abusive towards staff at being of shift threw her empty ensure bottle on ground and stated, "That is what your are aides are here for, they can't even give me ice water!" show Patient that her water pitcher is full of Ice water and she said, "Oh well they must have just sneaked in! Whatever!"
--- NOTE | 2018-12-19 02:15 | NUR ---
This time While DISEASE CONTROL INSPECTOR and this nurse went in to administer PRN pain medication and obtain VS Patient refused VS and called both staff,"Fat Asses!"
[2018-12-19 06:22] LABS: BASO # 0.1 x10^3/uL (0.0-0.2); BASO % 1 % (0-3); EOS # 0.2 x10^3/uL (0.0-0.7); EOS % 2 % (0-3); HEMATOCRIT 30.1 % (36.0-47.0); LYMPH # 1.6 x10^3/uL (1.0-4.8); LYMPH % 15 % (24-48); MEAN CORPUSCULAR HEMOGLOBIN 29 pg (25-35); MEAN CORPUSCULAR HGB CONC 33 g/dL (31-37); MEAN CORPUSCULAR VOLUME 89 fL (79-100); MONO # 1.1 x10^3/uL (0.0-1.1); MONO % 10 % (0-9); NEUT # 7.3 x10^3/uL (1.8-7.7); NEUT % 72 % (31-73); PLATELET COUNT 373 x10^3/uL (140-400); RED CELL DISTRIBUTION WIDTH 17.3 % (11.5-14.5); WHITE BLOOD COUNT 10.2 x10^3/uL (4.0-11.0)
[2018-12-19] MEDS: LEVOTHYROXINE 50 MCG TABLET PO SCH (06:24)
[2018-12-19 07:06] LABS: ALBUMIN 2.5 g/dL (3.4-5.0); CALCIUM 8.5 mg/dL (8.5-10.1); CREATININE 7.1 mg/dL (0.6-1.0); GFR 7.2; PHOSPHORUS 7.8 mg/dL (2.6-4.7)
[2018-12-19 07:09] LABS: POTASSIUM 5.3 mmol/L (3.5-5.1)
[2018-12-19] MEDS: PANTOPRAZOLE 40 MG TABLET.DR. PO SCH (07:30)
[2018-12-19] MEDS ORDERED: IV NORMAL SALINE 1000ML BAG 1,000 ML IV PRN ×2 (07:43)
[2018-12-19] MEDS ORDERED: DIALYSIS PATIENT. MC PRN (07:45)
[2018-12-19] MEDS ORDERED: ACETAMINOPHEN 500 MG TABLET PO PRN (07:45)
[2018-12-19] MEDS ORDERED: diphenhydrAMINE 50 MG/ML VIAL IV PRN ×2 (07:45)
[2018-12-19] MEDS: FOLIC/VIT B COMP W-C (RENAL) TABLET. PO SCH (07:47)
[2018-12-19] MEDS: LACTOBACILLUS RHAMNOSUS GG 1 CAPSULE. PO SCH ×2 (07:47→21:35)
[2018-12-19] MEDS: SERTRALINE 50 MG TABLET. PO SCH (07:48)
[2018-12-19] MEDS: CARVEDILOL 6.25 MG TABLET. PO SCH ×2 (07:49→18:53)
--- NOTE | 2018-12-19 07:53 | NUR ---
Patient to dialysis per bed. Patient remains NPO. No visitors with patient at this time.
[2018-12-19] MEDS: INSULIN LISPRO 300 UNITS/3 ML VIAL. SQ SCH ×3 (08:00→17:00)
[2018-12-19] MEDS: CLOPIDOGREL BISULFATE 75 MG TABLET PO SCH (08:00)
[2018-12-19] MEDS: amLODIPine BESYLATE 10 MG TABLET PO SCH (09:00)
[2018-12-19] MEDS: NICOTINE 21MG PATCH. TD SCH (09:00)
[2018-12-19] MEDS: LISINOPRIL 20 MG TABLET PO SCH (09:00)
[2018-12-19] MEDS: CEPHALEXIN 250 MG CAPSULE. PO SCH (09:00)
[2018-12-19] MEDS ORDERED: ONDANSETRON PF 4 MG/2 ML VIAL. IV STA (09:25)
[2018-12-19] MEDS ORDERED: ONDANSETRON PF 4 MG/2 ML VIAL. IV ONE (10:15)
[2018-12-19] MEDS ORDERED: IV RINGERS,LACTATED 1000ML 1,000 ML IV SCH (10:18)
[2018-12-19] MEDS ORDERED: ONDANSETRON PF 4 MG/2 ML VIAL. IV PRN (10:30)
[2018-12-19] MEDS ORDERED: fentaNYL PF VIAL 100 MCG/2 ML VIAL IV PRN ×2 (10:30)
[2018-12-19] MEDS ORDERED: PROCHLORPERAZINE 10 MG/2 ML VIAL. IV PRN (10:30)
[2018-12-19] MEDS ORDERED: LIDOCAINE 1% PF 2 ML VIAL. ID PRN (10:30)
--- NOTE | 2018-12-19 10:58 | PDOC ---
Renal-Progress Notes Subjective Notes Notes NAUSEATED AND HAVING EMESIS WHILE ON HD History of Present Illness Hx of present illness THROWING UP Vitals Vitals Vital Signs Date Time Temp Pulse Resp B/P (MAP) Pulse Ox O2 Delivery O2 Flow Rate FiO2 12/19/18 07:49 18 Room Air 12/19/18 06:26 95 12/19/18 00:00 98.4 85 137/56 (83) 98.4 Weight Weight [ ] I.O. Intake and Output Intake and Output 12/19/18 07:00 Intake Total 480 ml Output Total 1 ml Balance 479 ml Intake Oral 480 ml Output Stool Total 1 ml # Voids 1 # Bowel Movements 3 Labs Labs Laboratory Tests Test 12/18/18 11:31 12/18/18 16:53 12/18/18 20:13 12/19/18 06:00 Glucose (Fingerstick) 275 mg/dL (70-99) 159 mg/dL (70-99) 187 mg/dL (70-99) White Blood Count 10.2 x10^3/uL (4.0-11.0) Red Blood Count 3.40 x10^6/uL (3.50-5.40) Hemoglobin 10.0 g/dL (12.0-15.5) Hematocrit 30.1 % (36.0-47.0) Mean Corpuscular Volume 89 fL (79-100) Mean Corpuscular Hemoglobin 29 pg (25-35) Mean Corpuscular Hemoglobin Concent 33 g/dL (31-37) Red Cell Distribution Width 17.3 % (11.5-14.5) Platelet Count 373 x10^3/uL (140-400) Neutrophils (%) (Auto) 72 % (31-73) Lymphocytes (%) (Auto) 15 % (24-48) Monocytes (%) (Auto) 10 % (0-9) Eosinophils (%) (Auto) 2 % (0-3) Basophils (%) (Auto) 1 % (0-3) Neutrophils # (Auto) 7.3 x10^3/uL (1.8-7.7) Lymphocytes # (Auto) 1.6 x10^3/uL (1.0-4.8) Monocytes # (Auto) 1.1 x10^3/uL (0.0-1.1) Eosinophils # (Auto) 0.2 x10^3/uL (0.0-0.7) Basophils # (Auto) 0.1 x10^3/uL (0.0-0.2) Sodium Level 141 mmol/L (136-145) Potassium Level 5.3 mmol/L (3.5-5.1) Chloride Level 101 mmol/L (98-107) Carbon Dioxide Level 29 mmol/L (21-32) Anion Gap 11 (6-14) Blood Urea Nitrogen 59 mg/dL (7-20) Creatinine 7.1 mg/dL (0.6-1.0) Estimated GFR (Cockcroft-Gault) 7.2 Glucose Level 106 mg/dL (70-99) Calcium Level 8.5 mg/dL (8.5-10.1) Phosphorus Level 7.8 mg/dL (2.6-4.7) Albumin 2.5 g/dL (3.4-5.0) Micro Micro Microbiology 12/14/18 Blood Culture - Final, Complete NO GROWTH AFTER 5 DAYS Review of Systems Constitutional: yes: alert, oriented Ears/Nose/Throat: Yes: no symptom reported Eyes: Yes: no symptom reported Pulmonary: Yes no symptom reported Cardiovascular: Yes no symptom reported Gastrointestional: Yes: no symptom reported Genitourinary: Yes: no symptom reported Musculoskeletal: Yes: no symptom reported Skin: Yes no symptom reported Psychiatric/Neurological: Yes: no symptom reported Endocrine: Yes: no symptom reported Hematologic/Lymphatic: Yes: no symptom reported Physical Exam General Appearance: no apparent distress Respiratory: bilateral CTA Heart: S1S2 Abdomen: soft, bowel sounds present Extremities: pulses present Neurology: alert, oriented Assessment Assessment IMP ESRD ANEMIA HTN PAD STUMP PAIN S/P BKA RECENTLY NON COMPLIANCE PLAN HD TODAY UF TO DW WOUND CARE ARARODRIGOP ENC COMPLIANCE BENY PAINTER MD Dec 19, 2018 10:58
--- NOTE | 2018-12-19 11:46 | PDOC ---
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 Nonvisualization of flow in the distal BLOOD DONOR UNIT ASSISTANT suggests occlusion, age indeterminate. Anxiety, depression sec to med illness mod to severe pcm History of Present Illness History of Present Illness PLAN Dtr wants her snu - pt not cooperative still emesis this AM OFf IV meds, medically cleared to dc She complains of her usual pain asking again for IV pain meds SW, help with dc dispo/plans FULL CODE Wound care of that stump HD per renal palliative care and social service technician awaiting for arrival of daughter to discuss plan of care apprec [facility] surgery Vitals Vitals Vital Signs Date Time Temp Pulse Resp B/P (MAP) Pulse Ox O2 Delivery O2 Flow Rate FiO2 12/19/18 07:49 18 Room Air 12/19/18 06:26 95 12/19/18 00:00 98.4 85 137/56 (83) 98.4 Physical Exam General: Alert, Oriented X3, Cooperative, moderate distress Heart: Regular rate, Normal S1, Normal S2 Lungs: Clear Abdomen: Normal bowel sounds, No tenderness Extremities: No clubbing, No cyanosis, Normal pulses Skin: Other (bka stump, wound dressing, amputated toes) Labs LABS Laboratory Tests Test 12/18/18 16:53 12/18/18 20:13 12/19/18 06:00 Glucose (Fingerstick) 159 mg/dL (70-99) 187 mg/dL (70-99) White Blood Count 10.2 x10^3/uL (4.0-11.0) Red Blood Count 3.40 x10^6/uL (3.50-5.40) Hemoglobin 10.0 g/dL (12.0-15.5) Hematocrit 30.1 % (36.0-47.0) Mean Corpuscular Volume 89 fL (79-100) Mean Corpuscular Hemoglobin 29 pg (25-35) Mean Corpuscular Hemoglobin Concent 33 g/dL (31-37) Red Cell Distribution Width 17.3 % (11.5-14.5) Platelet Count 373 x10^3/uL (140-400) Neutrophils (%) (Auto) 72 % (31-73) Lymphocytes (%) (Auto) 15 % (24-48) Monocytes (%) (Auto) 10 % (0-9) Eosinophils (%) (Auto) 2 % (0-3) Basophils (%) (Auto) 1 % (0-3) Neutrophils # (Auto) 7.3 x10^3/uL (1.8-7.7) Lymphocytes # (Auto) 1.6 x10^3/uL (1.0-4.8) Monocytes # (Auto) 1.1 x10^3/uL (0.0-1.1) Eosinophils # (Auto) 0.2 x10^3/uL (0.0-0.7) Basophils # (Auto) 0.1 x10^3/uL (0.0-0.2) Sodium Level 141 mmol/L (136-145) Potassium Level 5.3 mmol/L (3.5-5.1) Chloride Level 101 mmol/L (98-107) Carbon Dioxide Level 29 mmol/L (21-32) Anion Gap 11 (6-14) Blood Urea Nitrogen 59 mg/dL (7-20) Creatinine 7.1 mg/dL (0.6-1.0) Estimated GFR (Cockcroft-Gault) 7.2 Glucose Level 106 mg/dL (70-99) Calcium Level 8.5 mg/dL (8.5-10.1) Phosphorus Level 7.8 mg/dL (2.6-4.7) Albumin 2.5 g/dL (3.4-5.0) Assessment and Plan Assessmemt and Plan Problems Medical Problems: (1) Anemia Status: Chronic (2) Diabetic peripheral neuropathy associated with type 2 diabetes mellitus Status: Chronic (3) ESRD on hemodialysis Status: Chronic (4) Fall Status: Acute (5) Hyperglycemia Status: Acute (6) Hyperkalemia Status: Acute (7) PAD (peripheral artery disease) Status: Chronic Comment Review of Relevant I have reviewed the following items pamela (where applicable) has been applied. Labs Laboratory Tests Test 12/17/18 18:03 12/18/18 08:40 12/18/18 11:31 12/18/18 16:53 Glucose (Fingerstick) 233 mg/dL (70-99) 275 mg/dL (70-99) 159 mg/dL (70-99) White Blood Count 9.8 x10^3/uL (4.0-11.0) Red Blood Count 3.17 x10^6/uL (3.50-5.40) Hemoglobin 9.4 g/dL (12.0-15.5) Hematocrit 28.1 % (36.0-47.0) Mean Corpuscular Volume 89 fL (79-100) Mean Corpuscular Hemoglobin 30 pg (25-35) Mean Corpuscular Hemoglobin Concent 33 g/dL (31-37) Red Cell Distribution Width 16.8 % (11.5-14.5) Platelet Count 379 x10^3/uL (140-400) Neutrophils (%) (Auto) 72 % (31-73) Lymphocytes (%) (Auto) 15 % (24-48) Monocytes (%) (Auto) 12 % (0-9) Eosinophils (%) (Auto) 1 % (0-3) Basophils (%) (Auto) 1 % (0-3) Neutrophils # (Auto) 7.0 x10^3/uL (1.8-7.7) Lymphocytes # (Auto) 1.5 x10^3/uL (1.0-4.8) Monocytes # (Auto) 1.1 x10^3/uL (0.0-1.1) Eosinophils # (Auto) 0.0 x10^3/uL (0.0-0.7) Basophils # (Auto) 0.1 x10^3/uL (0.0-0.2) Sodium Level 140 mmol/L (136-145) Potassium Level 4.7 mmol/L (3.5-5.1) Chloride Level 101 mmol/L (98-107) Carbon Dioxide Level 32 mmol/L (21-32) Anion Gap 7 (6-14) Blood Urea Nitrogen 37 mg/dL (7-20) Creatinine 5.7 mg/dL (0.6-1.0) Estimated GFR (Cockcroft-Gault) 9.3 Glucose Level 272 mg/dL (70-99) Calcium Level 7.8 mg/dL (8.5-10.1) Phosphorus Level 6.5 mg/dL (2.6-4.7) Albumin 2.2 g/dL (3.4-5.0) Test 12/18/18 20:13 12/19/18 06:00 Glucose (Fingerstick) 187 mg/dL (70-99) White Blood Count 10.2 x10^3/uL (4.0-11.0) Red Blood Count 3.40 x10^6/uL (3.50-5.40) Hemoglobin 10.0 g/dL (12.0-15.5) Hematocrit 30.1 % (36.0-47.0) Mean Corpuscular Volume 89 fL (79-100) Mean Corpuscular Hemoglobin 29 pg (25-35) Mean Corpuscular Hemoglobin Concent 33 g/dL (31-37) Red Cell Distribution Width 17.3 % (11.5-14.5) Platelet Count 373 x10^3/uL (140-400) Neutrophils (%) (Auto) 72 % (31-73) Lymphocytes (%) (Auto) 15 % (24-48) Monocytes (%) (Auto) 10 % (0-9) Eosinophils (%) (Auto) 2 % (0-3) Basophils (%) (Auto) 1 % (0-3) Neutrophils # (Auto) 7.3 x10^3/uL (1.8-7.7) Lymphocytes # (Auto) 1.6 x10^3/uL (1.0-4.8) Monocytes # (Auto) 1.1 x10^3/uL (0.0-1.1) Eosinophils # (Auto) 0.2 x10^3/uL (0.0-0.7) Basophils # (Auto) 0.1 x10^3/uL (0.0-0.2) Sodium Level 141 mmol/L (136-145) Potassium Level 5.3 mmol/L (3.5-5.1) Chloride Level 101 mmol/L (98-107) Carbon Dioxide Level 29 mmol/L (21-32) Anion Gap 11 (6-14) Blood Urea Nitrogen 59 mg/dL (7-20) Creatinine 7.1 mg/dL (0.6-1.0) Estimated GFR (Cockcroft-Gault) 7.2 Glucose Level 106 mg/dL (70-99) Calcium Level 8.5 mg/dL (8.5-10.1) Phosphorus Level 7.8 mg/dL (2.6-4.7) Albumin 2.5 g/dL (3.4-5.0) Laboratory Tests Test 12/18/18 16:53 12/18/18 20:13 12/19/18 06:00 Glucose (Fingerstick) 159 mg/dL (70-99) 187 mg/dL (70-99) White Blood Count 10.2 x10^3/uL (4.0-11.0) Red Blood Count 3.40 x10^6/uL (3.50-5.40) Hemoglobin 10.0 g/dL (12.0-15.5) Hematocrit 30.1 % (36.0-47.0) Mean Corpuscular Volume 89 fL (79-100) Mean Corpuscular Hemoglobin 29 pg (25-35) Mean Corpuscular Hemoglobin Concent 33 g/dL (31-37) Red Cell Distribution Width 17.3 % (11.5-14.5) Platelet Count 373 x10^3/uL (140-400) Neutrophils (%) (Auto) 72 % (31-73) Lymphocytes (%) (Auto) 15 % (24-48) Monocytes (%) (Auto) 10 % (0-9) Eosinophils (%) (Auto) 2 % (0-3) Basophils (%) (Auto) 1 % (0-3) Neutrophils # (Auto) 7.3 x10^3/uL (1.8-7.7) Lymphocytes # (Auto) 1.6 x10^3/uL (1.0-4.8) Monocytes # (Auto) 1.1 x10^3/uL (0.0-1.1) Eosinophils # (Auto) 0.2 x10^3/uL (0.0-0.7) Basophils # (Auto) 0.1 x10^3/uL (0.0-0.2) Sodium Level 141 mmol/L (136-145) Potassium Level 5.3 mmol/L (3.5-5.1) Chloride Level 101 mmol/L (98-107) Carbon Dioxide Level 29 mmol/L (21-32) Anion Gap 11 (6-14) Blood Urea Nitrogen 59 mg/dL (7-20) Creatinine 7.1 mg/dL (0.6-1.0) Estimated GFR (Cockcroft-Gault) 7.2 Glucose Level 106 mg/dL (70-99) Calcium Level 8.5 mg/dL (8.5-10.1) Phosphorus Level 7.8 mg/dL (2.6-4.7) Albumin 2.5 g/dL (3.4-5.0) Microbiology 12/14/18 Blood Culture - Final, Complete NO GROWTH AFTER 5 DAYS Medications Current Medications Fentanyl Citrate (Fentanyl 2ml Vial) 50 mcg 1X ONCE IV Last administered on 12/14/18 02:52; Start 12/14/18 at 01:30; Stop 12/14/18 at 01:32; Status DC Ondansetron HCl (Zofran) 4 mg 1X ONCE IV Last administered on 12/14/18at 02:52; Start 12/14/18 at 01:30; Stop 12/14/18 at 01:32; Status DC Famotidine (Pepcid Vial) 20 mg 1X ONCE IVP Last administered on 12/14/18at 02:52; Start 12/14/18 at 01:30; Stop 12/14/18 at 01:32; Status DC Mupirocin (Bactroban) 1 herber 1X ONCE TP Last administered on 12/14/18at 02:52; Start 12/14/18 at 01:45; Stop 12/14/18 at 01:46; Status DC Mupirocin (Bactroban) 1 herber 1X ONCE TP Last administered on 12/14/18at 02:52; Start 12/14/18 at 02:30; Stop 12/14/18 at 02:31; Status DC Insulin Human Regular (HumuLIN R VIAL) 10 unit 1X ONCE IV ; Start 12/14/18 at 03:30; Stop 12/14/18 at 03:35; Status DC Ondansetron HCl (Zofran) 4 mg PRN Q8HRS PRN IV NAUSEA/VOMITING Last administered on 12/15/18at 00:08; Start 12/14/18 at 04:00; Stop 12/15/18 at 03:59; Status DC Fentanyl Citrate (Fentanyl 2ml Vial) 50 mcg PRN Q2HR PRN IV PAIN Last administered on 9/20/19at 09:00; Start 12/14/18 at 04:00; Stop 12/14/18 at 09:05; Status DC Insulin Human Lispro (HumaLOG) 0-5 UNITS TIDWMEALS SQ Last administered on 12/18/18at 12:03; Start 12/14/18 at 08:00 Dextrose (Dextrose 50%-Water Syringe) 12.5 gm PRN Q15MIN PRN IV SEE COMMENTS; Start 12/14/18 at 04:00 Dextrose 250 ml PRN Q15MIN PRN IV SEE COMMENTS; Start 12/14/18 at 04:00 Albuterol Sulfate (Ventolin Neb Soln) 2.5 mg PRN BID PRN INH SHORTNESS OF BREATH; Start 12/14/18 at 09:00 Alprazolam (Xanax) 0.5 mg PRN TID PRN PO ANXIETY / AGITATION; Start 12/14/18 at 09:00; Stop 12/15/18 at 09:03; Status DC Amlodipine Besylate (Norvasc) 10 mg DAILY PO Last administered on 12/17/18at 14:16; Start 12/14/18 at 09:00 Atorvastatin Calcium (Lipitor) 40 mg HS PO Last administered on 12/18/18at 20:03; Start 12/14/18 at 21:00 Carvedilol (Coreg) 6.25 mg BIDWMEALS PO Last administered on 12/18/18at 09:09; Start 12/14/18 at 09:00 Clonidine HCl (Catapres Tts-2) 1 patch WEEKLY TD Last administered on 12/14/18at 13:25; Start 12/14/18 at 09:00 Vitamin B Complex/ Vitamin C (Pinky-Shreya) 1 tab DAILY PO Last administered on 12/18/18at 09:09; Start 12/14/18 at 09:00 Acetaminophen/ Hydrocodone Bitart (Lortab 10/325) 1 tab PRN Q4HRS PRN PO MODERATE TO SEVERE PAIN Last administered on 12/15/18at 08:05; Start 12/14/18 at 09:00; Stop 12/15/18 at 09:03; Status DC Latanoprost (Xalatan) 1 drop HS OU ; Start 12/14/18 at 21:00 Levothyroxine Sodium (Synthroid) 50 mcg DAILY06 PO Last administered on 12/19/18 06:26; Start 12/14/18 at 09:00 Lisinopril (Prinivil) 20 mg DAILY PO Last administered on 12/17/18 14:16; Start 12/14/18 at 09:00 Prochlorperazine Maleate (Compazine) 5 mg PRN TID PRN PO NAUSEA 2ND CHOICE Last administered on 12/15/18 08:05; Start 12/14/18 at 09:00 Sertraline HCl (Zoloft) 50 mg DAILY PO Last administered on 12/18/18 09:09; Start 12/14/18 at 09:00 Acetaminophen (Tylenol) 650 mg PRN Q6HRS PRN PO MILD PAIN / TEMP; Start 12/14/18 at 09:00 Cephalexin HCl (Keflex) 500 mg TID PO Last administered on 12/16/18 14:07; Start 12/14/18 at 09:00; Stop 12/16/18 at 15:12; Status DC Amylase/Lipase/ Protease (Zenpep 5,000) 1 cap TIDWMEALS PO Last administered on 12/18/18 11:57; Start 12/14/18 at 09:00 Famotidine (Pepcid) 20 mg QHS PO ; Start 12/14/18 at 21:00; Status Cancel Pantoprazole Sodium (Protonix) 40 mg DAILYAC PO Last administered on 12/18/18 05:51; Start 12/14/18 at 09:00 Fentanyl Citrate (Fentanyl 2ml Vial) 75 mcg PRN Q2HR PRN IV PAIN Last administered on 12/14/18at 11:20; Start 12/14/18 at 09:15; Stop 12/15/18 at 09:03; Status DC Clopidogrel Bisulfate (Plavix) 75 mg DAILYWBKFT PO Last administered on 12/18/18 09:09; Start 12/14/18 at 10:00 Sodium Chloride 1,000 ml @ 1,000 mls/hr Q1H PRN IV hypotension; Start 12/14/18 at 09:38; Stop 12/14/18 at 15:37; Status DC Acetaminophen (Tylenol) 500 mg 1X PRN PRN PO MILD PAIN / TEMP; Start 12/14/18 at 09:45; Stop 12/15/18 at 09:44; Status DC Diphenhydramine HCl (Benadryl) 25 mg 1X PRN PRN IV ITCHING; Start 12/14/18 at 09:45; Stop 12/15/18 at 09:44; Status DC Diphenhydramine HCl (Benadryl) 25 mg 1X PRN PRN IV ITCHING; Start 12/14/18 at 09:45; Stop 12/15/18 at 09:44; Status DC Sodium Chloride 1,000 ml @ 400 mls/hr Q2H30M PRN IV PATENCY; Start 12/14/18 at 09:38; Stop 12/14/18 at 21:37; Status DC Info (PHARMACY MONITORING -- do not chart) 1 each PRN DAILY PRN MC SEE COMMENTS; Start 12/14/18 at 09:45 Alprazolam (Xanax) 0.25 mg PRN DAILY PRN PO ANXIETY / AGITATION Last administered on 12/18/18at 10:50; Start 12/16/18 at 09:00 Fentanyl Citrate (Fentanyl 2ml Vial) 75 mcg PRN Q4HRS PRN IV PAIN Last administered on 12/16/18 03:26; Start 12/15/18 at 09:15; Stop 12/16/18 at 10:26; Status DC Acetaminophen/ Hydrocodone Bitart (Lortab 10/325) 1 tab PRN Q6HRS PRN PO MODERATE TO SEVERE PAIN Last administered on 12/19/18 06:26; Start 12/15/18 at 09:15 Nicotine (Nicoderm Cq 21mg) 1 patch DAILY TD Last administered on 12/17/18at 14:16; Start 12/15/18 at 12:00 Fentanyl (Duragesic 12mcg/ Hr Patch) 1 patch Q3DAYS TD Last administered on 12/18/18 09:09; Start 12/15/18 at 12:15 Ondansetron HCl (Zofran Odt) 4 mg PRN Q6HRS PRN PO NAUSEA/VOMITING 1ST CHOICE Last administered on 12/18/18 20:03; Start 12/15/18 at 12:15 Fentanyl Citrate (Fentanyl 2ml Vial) 75 mcg PRN BID PRN IV SEVERE PAIN Last administered on 12/19/18at 02:09; Start 12/16/18 at 14:00 Cephalexin HCl (Keflex) 250 mg BID PO Last administered on 12/18/18at 20:03; Start 12/16/18 at 21:00 Sodium Chloride 1,000 ml @ 1,000 mls/hr Q1H PRN IV hypotension; Start 12/17/18 at 08:23; Stop 12/17/18 at 14:22; Status DC Acetaminophen (Tylenol) 500 mg 1X PRN PRN PO MILD PAIN / TEMP; Start 12/17/18 at 08:30; Stop 12/18/18 at 08:29; Status DC Diphenhydramine HCl (Benadryl) 25 mg 1X PRN PRN IV ITCHING; Start 12/17/18 at 08:30; Stop 12/18/18 at 08:29; Status DC Diphenhydramine HCl (Benadryl) 25 mg 1X PRN PRN IV ITCHING; Start 12/17/18 at 08:30; Stop 12/18/18 at 08:29; Status DC Sodium Chloride 1,000 ml @ 400 mls/hr Q2H30M PRN IV PATENCY; Start 12/17/18 at 08:23; Stop 12/17/18 at 20:22; Status DC Info (PHARMACY MONITORING -- do not chart) 1 each PRN DAILY PRN MC SEE COMMENTS; Start 12/17/18 at 08:30 Lactobacillus Rhamnosus (Culturelle) 1 cap BID PO Last administered on 12/18/18at 20:03; Start 12/17/18 at 21:00 Zolpidem Tartrate (Ambien) 5 mg PRN QHS PRN PO INSOMNIA, MAY REPEAT IN 1HR Last administered on 12/18/18at 20:03; Start 12/17/18 at 21:45 Darbepoetin Jarrett (ARANESP for DIALYSIS PTS) 60 mcg WEEKLYHS SQ ; Start 12/18/18 at 21:00 Sodium Chloride 1,000 ml @ 1,000 mls/hr Q1H PRN IV hypotension; Start 12/19/18 at 07:43; Stop 12/19/18 at 13:42 Acetaminophen (Tylenol) 500 mg 1X PRN PRN PO MILD PAIN / TEMP; Start 12/19/18 at 07:45; Stop 12/20/18 at 07:44 Diphenhydramine HCl (Benadryl) 25 mg 1X PRN PRN IV ITCHING; Start 12/19/18 at 07:45; Stop 12/20/18 at 07:44 Diphenhydramine HCl (Benadryl) 25 mg 1X PRN PRN IV ITCHING; Start 12/19/18 at 07:45; Stop 12/20/18 at 07:44 Sodium Chloride 1,000 ml @ 400 mls/hr Q2H30M PRN IV PATENCY; Start 12/19/18 at 07:43; Stop 12/19/18 at 19:42 Info (PHARMACY MONITORING -- do not chart) 1 each PRN DAILY PRN MC SEE COMMENTS; Start 12/19/18 at 07:45 Ondansetron HCl (Zofran) 4 mg 1X STAT IV Last administered on 12/19/18at 09:34; Start 12/19/18 at 09:25; Stop 12/19/18 at 09:29; Status DC Ondansetron HCl (Zofran) 4 mg 1X ONCE IV Last administered on 12/19/18at 10:18; Start 12/19/18 at 10:15; Stop 12/19/18 at 10:16; Status DC Ondansetron HCl (Zofran) 4 mg PRN Q6HRS PRN IV NAUSEA/VOMITING; Start 12/19/18 at 10:30; Stop 12/20/18 at 10:29 Fentanyl Citrate (Fentanyl 2ml Vial) 25 mcg PRN Q5MIN PRN IV MILD PAIN 1-3; Start 12/19/18 at 10:30; Stop 12/19/18 at 20:00 Fentanyl Citrate (Fentanyl 2ml Vial) 50 mcg PRN Q5MIN PRN IV MODERATE TO SEVERE PAIN; Start 12/19/18 at 10:30; Stop 12/19/18 at 20:00 Ringer's Solution 1,000 ml @ 30 mls/hr Q24H IV ; Start 12/19/18 at 10:18; Stop 12/19/18 at 22:17 Lidocaine HCl (Xylocaine-Mpf 1% 2ml Vial) 2 ml PRN 1X PRN ID PRIOR TO IV START; Start 12/19/18 at 10:30; Stop 12/19/18 at 20:00 Prochlorperazine Edisylate (Compazine) 5 mg PACU PRN PRN IV NAUSEA, MRX1; Start 12/19/18 at 10:30; Stop 12/19/18 at 20:00 Active Scripts Active Keflex (Cephalexin) 500 Mg Capsule 1 Cap PO TID Pinky-Shreya Tablet (Folic Acid/Vitamin B Comp W-C) 0.8 Mg Tablet 1 Tab PO DAILY Hydrocodone-Apap 10-325 (Hydrocodone Bit/Acetaminophen) 1 Tab Tablet 1 Tab PO PRN Q4HRS PRN [Darbepoetin Jarrett In Polysorbat] 60 MCG/0.3 ML Disp.syrin 60 Mcg SQ WEEKLYHS 30 Days Alprazolam 0.5 Mg Tablet 0.5 Mg PO PRN TID PRN MDD 1 Tylenol (Acetaminophen) 325 Mg Capsule 650 Mg PO Q6-8HRS PRN Zantac (Ranitidine Hcl) 300 Mg Tablet 1 Tab PO QHS Compazine (Prochlorperazine Maleate) 5 Mg Tablet 5 Mg PO PRN TID PRN 10 Days [Pantoprazole] 40 MG Tablet. 40 Mg PO DAILYAC 30 Days Reported Zoloft (Sertraline Hcl) 50 Mg Tablet 50 Mg PO DAILY Lisinopril 20 Mg Tablet 20 Mg PO DAILY Coreg (Carvedilol) 6.25 Mg Tablet 6.25 Mg PO BIDWMELORENA Frey Dr 6,000 Units Capsule (Lipase/Protease/Amylase) 1 Each Capsule. 1 Tab PO TID Proair Hfa (Albuterol Sulfate) 8.5 Gm Hfa.aer.ad 2 Puff INH BID PRN Levothyroxine Sodium 50 Mcg Tablet 1 Tab PO DAILY Clonidine Tts-2 (Clonidine) 1 Each Patch.tdwk 1 Patch TD WEEKLY Amlodipine Besylate 5 Mg Tablet 10 Mg PO DAILY Atorvastatin Calcium 40 Mg Tablet 40 Mg PO HS Latanoprost 2.5 Ml Drops 1 Drop EACHEYE HS Vitals/I & O Vital Sign - Last 24 Hours 12/18/18 12/18/18 12/18/18 12/18/18 11:57 14:05 15:00 17:42 Temp 97.9 97.9 Pulse 75 78 Resp 18 B/P (MAP) 164/58 (93) 147/32 Pulse Ox 96 O2 Delivery Room Air Room Air Room Air 12/18/18 12/18/18 12/18/1824/19 17:42 17:44 18:29 19:00 Temp 98.5 98.5 Pulse 78 77 Resp 18 B/P (MAP) 147/32 138/40 (72) Pulse Ox 99 O2 Delivery Room Air Room Air Room Air 12/18/18 12/18/18 12/19/18 12/19/18 19:54 20:00 00:00 00:30 Temp 98.4 98.4 Pulse 85 Resp 18 16 18 B/P (MAP) 137/56 (83) Pulse Ox 96 95 95 O2 Delivery Room Air Room Air Room Air Room Air 12/19/18 12/19/18 12/19/18 12/19/18 01:31 02:09 02:49 06:26 Resp 18 18 18 18 Pulse Ox 95 95 95 95 O2 Delivery Room Air Room Air Room Air Room Air 12/19/18 07:49 Resp 18 O2 Delivery Room Air Intake and Output 12/18/18 12/18/18 12/19/18 15:00 23:00 07:00 Intake Total 480 ml Output Total 1 ml Balance 479 ml LELA KOWALSKI MD Dec 19, 2018 11:46
[2018-12-19] MEDS ORDERED: ONDANSETRON PF 4 MG/2 ML VIAL. ONE (12:04)
[2018-12-19] MEDS ORDERED: PROPOFOL 20 ML IV ONE (12:04)
[2018-12-19] MEDS ORDERED: DEXAMETHASONE SOD PHOS 4 MG/ML VIAL ONE (12:04)
[2018-12-19] MEDS ORDERED: LIDOCAINE 2% PF 5 ML VIAL. ONE (12:04)
[2018-12-19] MEDS: IV NORMAL SALINE 1000ML BAG 1,000 ML IV SCH (12:10)
[2018-12-19] MEDS ORDERED: INSULIN LISPRO 100 UNIT/ML 3ML VIAL for OP,RR ONLY. SQ PRN (12:15)
[2018-12-19] MEDS ORDERED: fentaNYL PF VIAL 100 MCG/2 ML VIAL ONE (12:36)
[2018-12-19] MEDS ORDERED: SEVOFLURANE 31 TO 60 MINUTES. IH ONE (12:49)
--- NOTE | 2018-12-19 12:51 | PDOC ---
BRIEF OPERATIVE NOTE Date: Dec 19, 2018 Pre-Op Diagnosis PAD, poorly healing left fifth toe amputation Post-Op Diagnosis same Procedure Performed Left fifth toe open amputation debridement and fourth toe amputation Surgeon Dr. 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
[2018-12-19] MEDS ORDERED: PIP/TAZO PER PHARMACY MC PRN (13:00)
[2018-12-19] MEDS ORDERED: VANCOMYCIN 1.25 GM in IV NORMAL SALINE 250ML 250 ML IV ONE (13:15)
--- NOTE | 2018-12-19 13:43 | OP ---
DATE OF SURGERY: 12/19/2018 SURGEON: Chikis Villeda M.D. ANESTHESIA USED: General anesthesia. PREOPERATIVE DIAGNOSES: Recent left fifth toe open amputation with gangrene throughout her amputation site, which by appearance of the wound is tracking around her fourth metatarsal bone. POSTOPERATIVE DIAGNOSES: Left foot open fifth toe amputation wound with copious amounts of gangrene involving her fourth metatarsal bone. OPERATION PERFORMED: Left fourth toe open amputation and debridement of her previous fifth toe open amputation site. BLOOD LOSS: 5 mL. INDICATIONS: The patient is a 58-year-old female with a long history of severe peripheral arterial disease in her bilateral lower extremities. She has a fairly recent right [id number] amputation for nonhealing gangrenous wounds in her right foot. She has had gangrene in her left foot and required a left fifth toe amputation, which was then debrided to an open amputation. Despite treatment, this has not healed and then has developed more necrotic tissue throughout the wound bed. She has undergone an angiogram with angioplasty of vessels in her left leg, but she has very poor flow in the foot and digital vessels itself. She has adequate blood flow that she will have based on her last angiogram. I recommend a left fifth toe open amputation, debridement and likely fourth toe amputation. I explained to her that this may also not heal and if it does not with long-term wound care, then she will require left [id number]-hexy amputation. She is agreeable to proceed with surgery. DETAILS OF THE OPERATION: The patient was brought to the operating room and placed on table in supine position. She received general anesthesia monitored throughout the case by the anesthesiologist. Her left foot and ankle were prepped and draped in normal sterile fashion. I began by incising necrotic tissue out of the open fifth toe amputation wound. The necrotic tissue was completely around her fourth metatarsal bone and I did not feel that this was adequate to leave her toe. Therefore, I made an elliptical incision about the base of the left fourth toe, dissected down to the metatarsal bone and transected it proximally within the wound with a bone cutter. I brought the fourth and fifth metatarsal bones back within the wound with a rongeur. Tendons were removed from the wound. She did have fairly good bleeding throughout the wound bed, which was controlled with electrocautery. All necrotic tissue was removed. We irrigated with copious amounts of antibiotic solution. I packed the wound with saline -soaked gauze, ABD pad, Kerlix wrap and an Eran wrap. She tolerated the surgery well. We will plan a wound VAC placement tomorrow. CHIKIS VILLEDA MD DR: ANDREW/franny JOB#: [id number] / [id number]
[2018-12-19] MEDS: PIPERACILLIN/TAZOBACTAM 2.25 GM in IV NORMAL SALINE 50ML 50 ML IV SCH ×2 (14:00→22:49)
[2018-12-19] MEDS: VANCOMYCIN PER PHARMACY MC PRN (18:53)
--- NOTE | 2018-12-19 18:57 | NUR ---
Pharmacy Vancomycin Dosing Note S:Consulted to monitor and dose vancomycin started 12/19/18. O:OTTONIEL SMITH is a 58 year old F with Cellulitis NECROTIC FOOT WOUND S/P AMPUTATION . Height: 5 feet, 2 inches Weight: 53.159762 kg [place] Body Weight: 50.10 Adjusted Body Weight: 51.66 Dosing Weight: Other Antibiotics: ZOSYN 12/19 - LABS: Last BUN: 59 Last Creatinine: 7.1 Creatinine Clearance: HD MWF mL/min Last WBC: 10.2 Last Procalcitonin: Tmax (past 24 hours): 98 Microbiology: 12/19: 12/14 BCX NG I/O: Drug Levels: Last level: on at Last dose given 12/19/18 at 1500 Vancomycin Dosing: Loading Dose: x1 Dosing Weight: Target Trough: 10-20 A: Based on: WEIGHT, MWF HD SCHEDULE, P: 1. GIVE Vancomycin 1250 mg IV One Time 2. Follow up Random level on 12/21/18 at 0600 3. Pharmacy will continue to monitor, follow and adjust therapy as needed. BERTHA BRICE [facility] [place], 12/19/18 [id number]
--- NOTE | 2018-12-19 20:50 | NUR ---
Patient refuses blood sugar to be taken this PM. Provided education on importance of checking blood sugar. Patient continues to refuse. No insulins ordered to be administered at this time. Will pass along to day RN.
[2018-12-19] MEDS: LATANOPROST 0.005% OPHTH SOLUTION 2.5ML BOTTLE. OU SCH (21:00)
[2018-12-19] MEDS: ATORVASTATIN CALCIUM 40 MG TABLET. PO SCH (21:35)
[2018-12-19] MEDS: ZOLPIDEM 5 MG TABLET. PO PRN (21:35)
[2018-12-20] MEDS: HYDROcodone/APAP 10/325 1 TAB TABLET PO PRN ×4 (01:16→21:57)
[2018-12-20] MEDS: fentaNYL PF VIAL 100 MCG/2 ML VIAL IV PRN (02:01)
[2018-12-20 03:00] VITALS: BP 159/53
[2018-12-20] MEDS: LEVOTHYROXINE 50 MCG TABLET PO SCH (06:20)
[2018-12-20] MEDS: PIPERACILLIN/TAZOBACTAM 2.25 GM in IV NORMAL SALINE 50ML 50 ML IV SCH ×3 (06:22→21:58)
[2018-12-20 07:00] VITALS: BP 182/91
[2018-12-20] MEDS: INSULIN LISPRO 300 UNITS/3 ML VIAL. SQ SCH ×3 (08:00→17:37)
--- NOTE | 2018-12-20 09:50 | PDOC ---
PROGRESS NOTES Chief Complaint Chief Complaint A/P: Right stump pain - POD#13 Open left 5th toe amputation & Right BKA POD#1 Open amputation of left 4th toe; revision of amputation site of left 5th toe HTN urgency - resolved ESRD -on HD anemai of ESRD Hypothyroidism - on replacement therapy Left 5th digit amputation - Dyslipidemia on meds PAD - Diffuse moderate to advanced atherosclerotic plaque in the lower activity arteries with moderate stenosis in the mid SFA, mild to moderate stenosis in the popliteal artery. Nonvisualization of flow in the distal [employer]BER suggests occlusion, age indeterminate. Anxiety, depression sec to med illness mod to severe pcm History of Present Illness History of Present Illness PLAN Dtr wants her snu - pt not cooperative emesis this AM OFf IV meds, medically cleared to dc She complains of her usual pain asking again for IV pain meds SW, help with dc dispo/plans FULL CODE Wound care of that stump HD per renal palliative care and health and social care teacher awaiting for arrival of daughter to discuss plan of care following vasc surgery 39 min pt exam, chart review, > 50% of time spent with exam, chart review, pt care coordination Vitals Vitals Vital Signs Date Time Temp Pulse Resp B/P (MAP) Pulse Ox O2 Delivery O2 Flow Rate FiO2 12/20/18 08:04 20 98 Nasal Cannula 2.0 12/20/18 07:00 83 182/91 (121) 12/20/18 03:00 98.8 98.8 Physical Exam General: Alert, Oriented X3, Cooperative, mild distress Heart: Regular rate, Normal S1, Normal S2 Lungs: Clear Abdomen: Normal bowel sounds, No tenderness Extremities: No clubbing, No cyanosis, Normal pulses Skin: Other (bka stump, wound dressing, amputated toes) Labs LABS Laboratory Tests Test 12/19/18 12:08 12/19/18 13:31 Glucose (Fingerstick) 66 mg/dL (70-99) 124 mg/dL (70-99) Assessment and Plan Assessmemt and Plan Problems Medical Problems: (1) Anemia Status: Chronic (2) Diabetic peripheral neuropathy associated with type 2 diabetes mellitus Status: Chronic (3) ESRD on hemodialysis Status: Chronic (4) Fall Status: Acute (5) Hyperglycemia Status: Acute (6) Hyperkalemia Status: Acute (7) PAD (peripheral artery disease) Status: Chronic Comment Review of Relevant I have reviewed the following items pamela (where applicable) has been applied. Labs Laboratory Tests Test 12/18/18 11:31 12/18/18 16:53 12/18/18 20:13 12/19/18 06:00 Glucose (Fingerstick) 275 mg/dL (70-99) 159 mg/dL (70-99) 187 mg/dL (70-99) White Blood Count 10.2 x10^3/uL (4.0-11.0) Red Blood Count 3.40 x10^6/uL (3.50-5.40) Hemoglobin 10.0 g/dL (12.0-15.5) Hematocrit 30.1 % (36.0-47.0) Mean Corpuscular Volume 89 fL (79-100) Mean Corpuscular Hemoglobin 29 pg (25-35) Mean Corpuscular Hemoglobin Concent 33 g/dL (31-37) Red Cell Distribution Width 17.3 % (11.5-14.5) Platelet Count 373 x10^3/uL (140-400) Neutrophils (%) (Auto) 72 % (31-73) Lymphocytes (%) (Auto) 15 % (24-48) Monocytes (%) (Auto) 10 % (0-9) Eosinophils (%) (Auto) 2 % (0-3) Basophils (%) (Auto) 1 % (0-3) Neutrophils # (Auto) 7.3 x10^3/uL (1.8-7.7) Lymphocytes # (Auto) 1.6 x10^3/uL (1.0-4.8) Monocytes # (Auto) 1.1 x10^3/uL (0.0-1.1) Eosinophils # (Auto) 0.2 x10^3/uL (0.0-0.7) Basophils # (Auto) 0.1 x10^3/uL (0.0-0.2) Sodium Level 141 mmol/L (136-145) Potassium Level 5.3 mmol/L (3.5-5.1) Chloride Level 101 mmol/L (98-107) Carbon Dioxide Level 29 mmol/L (21-32) Anion Gap 11 (6-14) Blood Urea Nitrogen 59 mg/dL (7-20) Creatinine 7.1 mg/dL (0.6-1.0) Estimated GFR (Cockcroft-Gault) 7.2 Glucose Level 106 mg/dL (70-99) Calcium Level 8.5 mg/dL (8.5-10.1) Phosphorus Level 7.8 mg/dL (2.6-4.7) Albumin 2.5 g/dL (3.4-5.0) Test 12/19/18 12:08 12/19/18 13:31 Glucose (Fingerstick) 66 mg/dL (70-99) 124 mg/dL (70-99) Laboratory Tests Test 12/19/18 12:08 12/19/18 13:31 Glucose (Fingerstick) 66 mg/dL (70-99) 124 mg/dL (70-99) Microbiology 12/14/18 Blood Culture - Final, Complete NO GROWTH AFTER 5 DAYS Medications Current Medications Fentanyl Citrate (Fentanyl 2ml Vial) 50 mcg 1X ONCE IV Last administered on 12/14/18at 02:52; Start 12/14/18 at 01:30; Stop 12/14/18 at 01:32; Status DC Ondansetron HCl (Zofran) 4 mg 1X ONCE IV Last administered on 12/14/18at 02:52; Start 12/14/18 at 01:30; Stop 12/14/18 at 01:32; Status DC Famotidine (Pepcid Vial) 20 mg 1X ONCE IVP Last administered on 12/14/18at 02:52; Start 12/14/18 at 01:30; Stop 12/14/18 at 01:32; Status DC Mupirocin (Bactroban) 1 herber 1X ONCE TP Last administered on 12/14/18at 02:52; Start 12/14/18 at 01:45; Stop 12/14/18 at 01:46; Status DC Mupirocin (Bactroban) 1 herber 1X ONCE TP Last administered on 12/14/18at 02:52; Start 12/14/18 at 02:30; Stop 12/14/18 at 02:31; Status DC Insulin Human Regular (HumuLIN R VIAL) 10 unit 1X ONCE IV ; Start 12/14/18 at 03:30; Stop 12/14/18 at 03:35; Status DC Ondansetron HCl (Zofran) 4 mg PRN Q8HRS PRN IV NAUSEA/VOMITING Last administered on 12/15/18at 00:08; Start 12/14/18 at 04:00; Stop 12/15/18 at 03:59; Status DC Fentanyl Citrate (Fentanyl 2ml Vial) 50 mcg PRN Q2HR PRN IV PAIN Last administered on 12/14/18at 09:00; Start 12/14/18 at 04:00; Stop 12/14/18 at 09:05; Status DC Insulin Human Lispro (HumaLOG) 0-5 UNITS TIDWMEALS SQ Last administered on 12/18/18at 12:03; Start 12/14/18 at 08:00 Dextrose (Dextrose 50%-Water Syringe) 12.5 gm PRN Q15MIN PRN IV SEE COMMENTS; Start 12/14/18 at 04:00 Dextrose 250 ml PRN Q15MIN PRN IV SEE COMMENTS; Start 12/14/18 at 04:00 Albuterol Sulfate (Ventolin Neb Soln) 2.5 mg PRN BID PRN INH SHORTNESS OF BREATH; Start 12/14/18 at 09:00 Alprazolam (Xanax) 0.5 mg PRN TID PRN PO ANXIETY / AGITATION; Start 12/14/18 at 09:00; Stop 12/15/18 at 09:03; Status DC Amlodipine Besylate (Norvasc) 10 mg DAILY PO Last administered on 12/17/18at 14:16; Start 12/14/18 at 09:00 Atorvastatin Calcium (Lipitor) 40 mg HS PO Last administered on 12/19/18at 21:35; Start 12/14/18 at 21:00 Carvedilol (Coreg) 6.25 mg BIDWMEALS PO Last administered on 12/19/18at 18:53; Start 12/14/18 at 09:00 Clonidine HCl (Catapres Tts-2) 1 patch WEEKLY TD Last administered on 12/14/18at 13:25; Start 12/14/18 at 09:00 Vitamin B Complex/ Vitamin C (Pinky-Shreya) 1 tab DAILY PO Last administered on 12/18/18at 09:09; Start 12/14/18 at 09:00 Acetaminophen/ Hydrocodone Bitart (Lortab 10/325) 1 tab PRN Q4HRS PRN PO MODERATE TO SEVERE PAIN Last administered on 12/15/18at 08:05; Start 12/14/18 at 09:00; Stop 12/15/18 at 09:03; Status DC Latanoprost (Xalatan) 1 drop HS OU Last administered on 12/19/18at 21:00; Start 12/14/18 at 21:00 Levothyroxine Sodium (Synthroid) 50 mcg DAILY06 PO Last administered on 12/20/18at 06:20; Start 12/14/18 at 09:00 Lisinopril (Prinivil) 20 mg DAILY PO Last administered on 12/17/18at 14:16; Start 12/14/18 at 09:00 Prochlorperazine Maleate (Compazine) 5 mg PRN TID PRN PO NAUSEA 2ND CHOICE Last administered on 12/15/18at 08:05; Start 12/14/18 at 09:00 Sertraline HCl (Zoloft) 50 mg DAILY PO Last administered on 12/18/18at 09:09; Start 12/14/18 at 09:00 Acetaminophen (Tylenol) 650 mg PRN Q6HRS PRN PO MILD PAIN / TEMP; Start 12/14/18 at 09:00 Cephalexin HCl (Keflex) 500 mg TID PO Last administered on 12/16/18at 14:07; Start 12/14/18 at 09:00; Stop 12/16/18 at 15:12; Status DC Amylase/Lipase/ Protease (Zenpep 5,000) 1 cap TIDWMEALS PO Last administered on 12/19/18at 18:53; Start 12/14/18 at 09:00 Famotidine (Pepcid) 20 mg QHS PO ; Start 12/14/18 at 21:00; Status Cancel Pantoprazole Sodium (Protonix) 40 mg DAILYAC PO Last administered on 12/18/18at 05:51; Start 12/14/18 at 09:00 Fentanyl Citrate (Fentanyl 2ml Vial) 75 mcg PRN Q2HR PRN IV PAIN Last administered on 12/14/18at 11:20; Start 12/14/18 at 09:15; Stop 12/15/18 at 09:03; Status DC Clopidogrel Bisulfate (Plavix) 75 mg DAILYWBKFT PO Last administered on 12/18/18at 09:09; Start 12/14/18 at 10:00 Sodium Chloride 1,000 ml @ 1,000 mls/hr Q1H PRN IV hypotension; Start 12/14/18 at 09:38; Stop 12/14/18 at 15:37; Status DC Acetaminophen (Tylenol) 500 mg 1X PRN PRN PO MILD PAIN / TEMP; Start 12/14/18 at 09:45; Stop 12/15/18 at 09:44; Status DC Diphenhydramine HCl (Benadryl) 25 mg 1X PRN PRN IV ITCHING; Start 12/14/18 at 09:45; Stop 12/15/18 at 09:44; Status DC Diphenhydramine HCl (Benadryl) 25 mg 1X PRN PRN IV ITCHING; Start 12/14/18 at 09:45; Stop 12/15/18 at 09:44; Status DC Sodium Chloride 1,000 ml @ 400 mls/hr Q2H30M PRN IV PATENCY; Start 12/14/18 at 09:38; Stop 12/14/18 at 21:37; Status DC Info (PHARMACY MONITORING -- do not chart) 1 each PRN DAILY PRN MC SEE COMMENTS; Start 12/14/18 at 09:45; Status Cancel Alprazolam (Xanax) 0.25 mg PRN DAILY PRN PO ANXIETY / AGITATION Last administered on 12/18/18at 10:50; Start 12/16/18 at 09:00 Fentanyl Citrate (Fentanyl 2ml Vial) 75 mcg PRN Q4HRS PRN IV PAIN Last administered on 12/16/18at 03:26; Start 12/15/18 at 09:15; Stop 12/16/18 at 10:26; Status DC Acetaminophen/ Hydrocodone Bitart (Lortab 10/325) 1 tab PRN Q6HRS PRN PO MODERATE TO SEVERE PAIN Last administered on 12/20/18at 08:04; Start 12/15/18 at 09:15 Nicotine (Nicoderm Cq 21mg) 1 patch DAILY TD Last administered on 12/17/18at 14:16; Start 12/15/18 at 12:00 Fentanyl (Duragesic 12mcg/ Hr Patch) 1 patch Q3DAYS TD Last administered on 12/18/18at 09:09; Start 12/15/18 at 12:15 Ondansetron HCl (Zofran Odt) 4 mg PRN Q6HRS PRN PO NAUSEA/VOMITING 1ST CHOICE Last administered on 12/18/18at 20:03; Start 12/15/18 at 12:15 Fentanyl Citrate (Fentanyl 2ml Vial) 75 mcg PRN BID PRN IV SEVERE PAIN Last administered on 12/20/18at 02:01; Start 12/16/18 at 14:00 Cephalexin HCl (Keflex) 250 mg BID PO Last administered on 12/18/18at 20:03; Start 12/16/18 at 21:00; Stop 12/19/18 at 18:41; Status DC Sodium Chloride 1,000 ml @ 1,000 mls/hr Q1H PRN IV hypotension; Start 12/17/18 at 08:23; Stop 12/17/18 at 14:22; Status DC Acetaminophen (Tylenol) 500 mg 1X PRN PRN PO MILD PAIN / TEMP; Start 12/17/18 at 08:30; Stop 12/18/18 at 08:29; Status DC Diphenhydramine HCl (Benadryl) 25 mg 1X PRN PRN IV ITCHING; Start 12/17/18 at 08:30; Stop 12/18/18 at 08:29; Status DC Diphenhydramine HCl (Benadryl) 25 mg 1X PRN PRN IV ITCHING; Start 12/17/18 at 08:30; Stop 12/18/18 at 08:29; Status DC Sodium Chloride 1,000 ml @ 400 mls/hr Q2H30M PRN IV PATENCY; Start 12/17/18 at 08:23; Stop 12/17/18 at 20:22; Status DC Info (PHARMACY MONITORING -- do not chart) 1 each PRN DAILY PRN MC SEE COMMENTS; Start 12/17/18 at 08:30; Status Cancel Lactobacillus Rhamnosus (Culturelle) 1 cap BID PO Last administered on 12/19/18at 21:35; Start 12/17/18 at 21:00 Zolpidem Tartrate (Ambien) 5 mg PRN QHS PRN PO INSOMNIA, MAY REPEAT IN 1HR Last administered on 12/19/18at 21:35; Start 12/17/18 at 21:45 Darbepoetin Jarrett (ARANESP for DIALYSIS PTS) 60 mcg WEEKLYHS SQ ; Start 12/18/18 at 21:00 Sodium Chloride 1,000 ml @ 1,000 mls/hr Q1H PRN IV hypotension; Start 12/19/18 at 07:43; Stop 12/19/18 at 13:42; Status DC Acetaminophen (Tylenol) 500 mg 1X PRN PRN PO MILD PAIN / TEMP; Start 12/19/18 at 07:45; Stop 12/20/18 at 07:44; Status DC Diphenhydramine HCl (Benadryl) 25 mg 1X PRN PRN IV ITCHING; Start 12/19/18 at 07:45; Stop 12/20/18 at 07:44; Status DC Diphenhydramine HCl (Benadryl) 25 mg 1X PRN PRN IV ITCHING; Start 12/19/18 at 07:45; Stop 12/20/18 at 07:44; Status DC Sodium Chloride 1,000 ml @ 400 mls/hr Q2H30M PRN IV PATENCY; Start 12/19/18 at 07:43; Stop 12/19/18 at 19:42; Status DC Info (PHARMACY MONITORING -- do not chart) 1 each PRN DAILY PRN MC SEE COMMENTS; Start 12/19/18 at 07:45 Ondansetron HCl (Zofran) 4 mg 1X STAT IV Last administered on 12/19/18at 09:34; Start 12/19/18 at 09:25; Stop 12/19/18 at 09:29; Status DC Ondansetron HCl (Zofran) 4 mg 1X ONCE IV Last administered on 12/19/18at 10:18; Start 12/19/18 at 10:15; Stop 12/19/18 at 10:16; Status DC Ondansetron HCl (Zofran) 4 mg PRN Q6HRS PRN IV NAUSEA/VOMITING; Start 12/19/18 at 10:30; Stop 12/20/18 at 10:29 Fentanyl Citrate (Fentanyl 2ml Vial) 25 mcg PRN Q5MIN PRN IV MILD PAIN 1-3; Start 12/19/18 at 10:30; Stop 12/19/18 at 20:00; Status DC Fentanyl Citrate (Fentanyl 2ml Vial) 50 mcg PRN Q5MIN PRN IV MODERATE TO SEVERE PAIN Last administered on 12/19/18at 13:37; Start 12/19/18 at 10:30; Stop 12/19/18 at 20:00; Status DC Ringer's Solution 1,000 ml @ 30 mls/hr Q24H IV ; Start 12/19/18 at 10:18; Stop 12/19/18 at 12:23; Status DC Lidocaine HCl (Xylocaine-Mpf 1% 2ml Vial) 2 ml PRN 1X PRN ID PRIOR TO IV START; Start 12/19/18 at 10:30; Stop 12/19/18 at 20:00; Status DC Prochlorperazine Edisylate (Compazine) 5 mg PACU PRN PRN IV NAUSEA, MRX1 Last administered on 12/19/18at 12:57; Start 12/19/18 at 10:30; Stop 12/19/18 at 20:00; Status DC Cefazolin Sodium/ Dextrose 50 ml @ 100 mls/hr 1X ONCE IV Last administered on 12/19/18at 12:17; Start 12/19/18 at 12:00; Stop 12/19/18 at 12:29; Status DC Propofol 20 ml @ As Directed STK-MED ONCE IV ; Start 12/19/18 at 12:04; Stop 12/19/18 at 12:05; Status DC Dexamethasone Sodium Phosphate (Decadron) 4 mg STK-MED ONCE .ROUTE ; Start 12/19/18 at 12:04; Stop 12/19/18 at 12:05; Status DC Lidocaine HCl (Lidocaine Pf 2% Vial) 5 ml STK-MED ONCE .ROUTE ; Start 12/19/18 at 12:04; Stop 12/19/18 at 12:05; Status DC Ondansetron HCl (Zofran) 4 mg STK-MED ONCE .ROUTE ; Start 12/19/18 at 12:04; Stop 12/19/18 at 12:05; Status DC Insulin Human Lispro (HumaLOG VIAL for OP,RR ONLY) 0-10 units PRN Q1HR PRN SQ PER PROTOCOL; Start 12/19/18 at 12:15; Stop 12/20/18 at 12:14 Sodium Chloride 1,000 ml @ 30 mls/hr Q24H IV Last administered on 12/19/18at 12:10; Start 12/19/18 at 12:30 Fentanyl Citrate (Fentanyl 2ml Vial) 100 mcg STK-MED ONCE .ROUTE ; Start 12/19/18 at 12:36; Stop 12/19/18 at 12:36; Status DC Vancomycin HCl (Vanco Per Pharmacy) 1 each PRN DAILY PRN MC SEE COMMENTS Last administered on 12/19/18at 18:53; Start 12/19/18 at 13:00 Piperacillin Sod/ Tazobactam Sod (Zosyn Per Pharmacy) 1 each PRN DAILY PRN MC SEE COMMENTS; Start 12/19/18 at 13:00 Sevoflurane (Ultane) 30 ml STK-MED ONCE IH ; Start 12/19/18 at 12:49; Stop 12/19/18 at 12:49; Status DC Piperacillin Sod/ Tazobactam Sod 2.25 gm/Sodium Chloride 50 ml @ 100 mls/hr Q8HRS IV Last administered on 12/20/18at 06:22; Start 12/19/18 at 14:00 Vancomycin HCl 1.25 gm/Sodium Chloride 250 ml @ 167 mls/hr ONCE ONCE IV Last administered on 12/19/18at 14:51; Start 12/19/18 at 13:15; Stop 12/19/18 at 14:44; Status DC Vancomycin HCl (Vancomycin Random Level) 1 each 1X ONCE MC ; Start 12/21/18 at 06:00; Stop 12/21/18 at 06:01 Active Scripts Active Keflex (Cephalexin) 500 Mg Capsule 1 Cap PO TID Pinky-Shreya Tablet (Folic Acid/Vitamin B Comp W-C) 0.8 Mg Tablet 1 Tab PO DAILY Hydrocodone-Apap 10-325 (Hydrocodone Bit/Acetaminophen) 1 Tab Tablet 1 Tab PO PRN Q4HRS PRN [Darbepoetin Jarrett In Polysorbat] 60 MCG/0.3 ML Disp.syrin 60 Mcg SQ WEEKLYHS 30 Days Alprazolam 0.5 Mg Tablet 0.5 Mg PO PRN TID PRN MDD 1 Tylenol (Acetaminophen) 325 Mg Capsule 650 Mg PO Q6-8HRS PRN Zantac (Ranitidine Hcl) 300 Mg Tablet 1 Tab PO QHS Compazine (Prochlorperazine Maleate) 5 Mg Tablet 5 Mg PO PRN TID PRN 10 Days [Pantoprazole] 40 MG Tablet.dr 40 Mg PO DAILYAC 30 Days Reported Zoloft (Sertraline Hcl) 50 Mg Tablet 50 Mg PO DAILY Lisinopril 20 Mg Tablet 20 Mg PO DAILY Coreg (Carvedilol) 6.25 Mg Tablet 6.25 Mg PO [address] Dr 6,000 Units Capsule (Lipase/Protease/Amylase) 1 Each Capsule. 1 Tab PO TID Proair Hfa (Albuterol Sulfate) 8.5 Gm Hfa.aer.ad 2 Puff INH BID PRN Levothyroxine Sodium 50 Mcg Tablet 1 Tab PO DAILY Clonidine Tts-2 (Clonidine) 1 Each Patch.tdwk 1 Patch TD WEEKLY Amlodipine Besylate 5 Mg Tablet 10 Mg PO DAILY Atorvastatin Calcium 40 Mg Tablet 40 Mg PO HS Latanoprost 2.5 Ml Drops 1 Drop EACHEYE HS Vitals/I & O Vital Sign - Last 24 Hours 12/19/18 12/19/18 12/19/18 12/19/18 12:10 12:20 12:54 13:07 Temp 97.6 97.0 97.6 97.0 Pulse 90 85 89 Resp B/P (MAP) 210/86 166/72 155/53 Pulse Ox 100 99 97 O2 Delivery Room Air Room Air Simple Mask Mask O2 Flow Rate 10 10 12/19/18 12/19/18 12/19/18 12/19/18 13:07 13:22 13:37 13:37 Temp 97.6 97.6 Pulse 88 82 88 Resp B/P (MAP) 176/47 181/59 167/56 Pulse Ox 92 95 90 97 O2 Delivery Simple Mask Nasal Cannula Nasal Cannula Nasal Cannula O2 Flow Rate 10 2 2.0 2 12/19/18 12/19/18 12/19/18 12/19/18 13:39 13:52 14:07 15:00 Temp 97.8 98.0 97.8 98.0 Pulse 68 79 Resp B/P (MAP) 167/56 181/58 (99) Pulse Ox 99 99 100 O2 Delivery Nasal Cannula Nasal Cannula Nasal Cannula Room Air O2 Flow Rate 2 2 2.0 12/19/18 12/19/18 12/19/18 12/19/18 15:15 15:15 15:30 15:45 Temp 98.1 98.1 98.1 98.1 Pulse 84 83 83 Resp B/P (MAP) 160/45 (83) 178/71 (106) 165/59 (94) Pulse Ox 99 100 100 100 O2 Delivery Nasal Cannula Room Air Nasal Cannula Nasal Cannula O2 Flow Rate 2.0 2.0 2.0 12/19/18 12/19/18 12/19/18 12/19/18 15:45 16:15 16:45 17:45 Temp 98.1 98.3 98.1 98.3 Pulse 77 80 80 Resp 20 20 20 19 B/P (MAP) 166/52 (90) 162/58 (92) 161/54 (89) Pulse Ox 99 100 100 100 O2 Delivery Nasal Cannula Nasal Cannula Nasal Cannula Nasal Cannula O2 Flow Rate 2.0 2.0 2.0 2.0 12/19/18 12/19/18 12/19/18 12/19/18 18:52 18:53 19:14 20:00 Temp 98.1 98.1 Pulse 79 79 Resp 20 21 15 B/P (MAP) 181/58 167/56 (93) Pulse Ox 99 97 97 O2 Delivery Nasal Cannula Room Air Nasal Cannula O2 Flow Rate 2.0 2.0 2.0 12/19/18 12/19/18 12/20/18 12/20/18 20:00 23:00 01:16 02:01 Temp 98.2 98.2 Pulse 65 Resp 18 15 17 B/P (MAP) 158/59 (92) Pulse Ox 97 97 97 O2 Delivery Nasal Cannula Nasal Cannula Nasal Cannula Nasal Cannula O2 Flow Rate 2.0 2.0 2.0 2.0 12/20/18 12/20/18 12/20/18 12/20/18 02:31 02:31 03:00 07:00 Temp 98.8 98.8 Pulse 79 83 Resp 16 16 16 B/P (MAP) 159/53 (88) 182/91 (121) Pulse Ox 97 97 98 O2 Delivery Nasal Cannula Nasal Cannula Nasal Cannula O2 Flow Rate 2.0 2.0 2.0 12/20/18 08:04 Resp 20 Pulse Ox 98 O2 Delivery Nasal Cannula O2 Flow Rate 2.0 Intake and Output 12/19/18 12/19/18 12/20/18 15:00 23:00 07:00 Intake Total 250 ml 480 ml Output Total 5 ml Balance 245 ml 480 ml SANGEETHA MUELLER MD Dec 20, 2018 09:50
[2018-12-20] MEDS: PANTOPRAZOLE 40 MG TABLET.DR. PO SCH (10:13)
[2018-12-20] MEDS: LACTOBACILLUS RHAMNOSUS GG 1 CAPSULE. PO SCH ×2 (10:13→20:00)
[2018-12-20] MEDS: CARVEDILOL 6.25 MG TABLET. PO SCH ×2 (10:14→17:31)
[2018-12-20] MEDS: CLOPIDOGREL BISULFATE 75 MG TABLET PO SCH (10:14)
[2018-12-20] MEDS: amLODIPine BESYLATE 10 MG TABLET PO SCH (10:15)
[2018-12-20] MEDS: ALPRAZolam 0.5 MG TABLET PO PRN (10:16)
[2018-12-20] MEDS: LISINOPRIL 20 MG TABLET PO SCH (10:18)
[2018-12-20] MEDS: NICOTINE 21MG PATCH. TD SCH (10:19)
[2018-12-20] MEDS: FOLIC/VIT B COMP W-C (RENAL) TABLET. PO SCH (10:19)
[2018-12-20] MEDS: SERTRALINE 50 MG TABLET. PO SCH (10:19)
[2018-12-20 11:00] VITALS: BP 189/81
--- NOTE | 2018-12-20 11:09 | PDOC ---
Infectious Disease Note Vital Sign Vital Signs Vital Signs Date Time Temp Pulse Resp B/P (MAP) Pulse Ox O2 Delivery O2 Flow Rate FiO2 12/20/18 10:15 83 182/91 12/20/18 09:04 20 98 Nasal Cannula 2.0 12/20/18 03:00 98.8 98.8 Labs Lab Laboratory Tests Test 12/19/18 12:08 12/19/18 13:31 Glucose (Fingerstick) 66 mg/dL (70-99) 124 mg/dL (70-99) Micro Microbiology 12/14/18 Blood Culture - Final, Complete NO GROWTH AFTER 5 DAYS Objective Assessment pt seen, consult dictated Plan Plan of Care / ELYSSA YATES MD Dec 20, 2018 11:09
--- NOTE | 2018-12-20 12:08 | PDOC ---
Renal-Progress Notes Subjective Notes Notes CONTINUES TO REFUSE THINGS History of Present Illness Hx of present illness NO CHANGE Vitals Vitals Vital Signs Date Time Temp Pulse Resp B/P (MAP) Pulse Ox O2 Delivery O2 Flow Rate FiO2 12/20/18 11:00 83 18 189/81 (117) 100 Room Air 12/20/18 09:04 2.0 12/20/18 03:00 98.8 98.8 Weight Weight [ ] I.O. Intake and Output Intake and Output 12/20/18 07:00 Intake Total 730 ml Output Total 5 ml Balance 725 ml Intake Oral 480 ml IV Total 250 ml Output Urine Total 0 ml Estimated Blood Loss 5 ml # Voids 2 Labs Labs Laboratory Tests Test 12/19/18 13:31 Glucose (Fingerstick) 124 mg/dL (70-99) Micro Micro Microbiology 12/14/18 Blood Culture - Final, Complete NO GROWTH AFTER 5 DAYS Review of Systems Constitutional: yes: alert, oriented Ears/Nose/Throat: Yes: no symptom reported Eyes: Yes: no symptom reported Pulmonary: Yes no symptom reported Cardiovascular: Yes no symptom reported Gastrointestional: Yes: no symptom reported Genitourinary: Yes: no symptom reported Musculoskeletal: Yes: no symptom reported Skin: Yes no symptom reported Psychiatric/Neurological: Yes: no symptom reported Endocrine: Yes: no symptom reported Hematologic/Lymphatic: Yes: no symptom reported Physical Exam General Appearance: no apparent distress Respiratory: bilateral CTA Heart: S1S2 Abdomen: soft, bowel sounds present Extremities: pulses present Neurology: alert, oriented Assessment Assessment IMP ESRD ANEMIA HTN PAD STUMP PAIN S/P BKA RECENTLY NON COMPLIANCE PLAN HD TOMORROW WOUND CARE ARANESP ENC COMPLIANCE PALLIATIVE CARE BENY PAINTER MD Dec 20, 2018 12:08
--- NOTE | 2018-12-20 12:26 | CONS ---
DATE OF CONSULTATION: 12/20/2018 REQUESTING PHYSICIANS: Trevor De Guzman MD and Dr. Villeda. REASON FOR CONSULTATION: Open toe amputation for gangrene. HISTORY OF PRESENT ILLNESS: This is a 58-year-old -[place] Citizen female with multiple medical problems including gangrenous toes. The patient had recently undergone right below-knee amputation and now the left one had gangrenous toes. The patient underwent yesterday surgery with the left fourth toe open amputation and debridement of her previous fifth toe open amputation. The patient's only complaint she has pain. The patient has severe peripheral vascular disease and has been recommended below-knee amputation, but she did not want. She wanted to try to save. The patient has no nausea, vomiting, diarrhea. The patient denies any chest pain, shortness of breath. Only complaint she has is the pain in the leg. The patient is receiving vancomycin and Zosyn. PAST MEDICAL HISTORY: Positive for end-stage renal disease, on hemodialysis; congestive heart failure; hypertension; peripheral neuropathy; peripheral arterial disease; asthma; COPD; fibromyalgia; hypothyroidism; diabetes; hyperparathyroidism; right below-knee amputation and left multiple toe amputations including the one I mentioned in the HPI from yesterday. SOCIAL HISTORY: The patient does do drugs off and on and smoked off and on. No alcohol use. ALLERGIES: LISTED ALLERGIC TO MORPHINE. REVIEW OF SYSTEMS: As per HPI, all other systems reviewed are negative. PHYSICAL EXAMINATION: GENERAL: Alert, oriented female, not in distress. VITAL SIGNS: Stable, afebrile. HEENT: NAD. NECK: Supple, no JVP, no lymphadenopathy. LUNGS: Clear. HEART: S1, S2 regular. ABDOMEN: Benign. EXTREMITIES: Right [id number] amputation stump looks great. Left post-surgical dressing was not open. SKIN: Rest of the skin examination unremarkable. NEUROLOGIC: The patient is neurologically alert, awake and appropriate. No focal neurologic deficit. LABORATORY DATA: White count is 10.2. BUN and creatinine is 59 and 7.1. Blood cultures on admission were negative. IMPRESSION: 1. Left fourth toe open amputation and left fifth toe amp site I and D. 2. Severe peripheral arterial disease. 3. Diabetes. 4. Hypertension. 5. End-stage renal disease, on hemodialysis. RECOMMENDATIONS: I would continue vancomycin and Zosyn for the time being, supportive care and we will continue to follow. As we looked at it and decide the long-term plan once allowed for nurse to change the dressing. Does have a transport. Thank you very much, Dr. De Guzman and Dr. Villeda, for giving me the opportunity to participate in this patient's care. ELYSSA YATES MD DR: TERRY/franny JOB#: [id number] / [id number]
[2018-12-20] MEDS: IV NORMAL SALINE 1000ML BAG 1,000 ML IV SCH (12:30)
[2018-12-20] MEDS ORDERED: diphenhydrAMINE HCL 25 MG CAPSULE PO PRN (13:30)
[2018-12-20] MEDS ORDERED: MORPHINE SULFATE 2 MG/ML VIAL. IV PRN (13:30)
--- NOTE | 2018-12-20 13:36 | PDOC ---
PROGRESS NOTES Subjective Subjective "Dr. Villeda! You are wonderful!" Objective Objective Vascular Surgery - POD#1 Open amputation of left 4th toe; revision of amputation site of left 5th toe General: patient seen and examined at bedside with Dr. Villeda and patient's daughter present. Patient in better spirits overall but becomes very emotional when talking about application of wound vac to amputation area. LLE: Foot remains dressed with post-operative dressing. Dry and intact. No swelling to foot noted. RLE: BKA incision intact and healing quite well. No drainage and skin edges healthy and without areas of threatened tissue. Assessment/Plan: 1. History of PAD with single-vessel run off into right foot after angioplasty of the left anterior tibial artery on 12/07/2018. Ultrasound upon admission does indicate Left common and superficial femoral, popliteal, and anterior tibial arteries remain grossly patent. Posterior tibial artery and dorsalis pedis artery remain occluded. Patient has been restarted on antiplatelet therapy with plavix during this admission. Must continue this upon discharge. 2. Necrotic tissue left fifth toe and diseased metatarsal left fourth toe - POD#1 right 4th toe amputation and revision to previous 5th toe amp site. Wound vac therapy has been ordered. Awaiting wound care to place vac dressing. 3. Anxiety and heightened pain. Will increase pain medication options while hospitalized for wound vac dressing changes. 4. Patient will f/u with Dr. Villeda in 2-3 weeks for wound check and hopefully to remove sutures to right BKA incision. 5. Ok to discharge when medically stable. Vital Signs Date Time Temp Pulse Resp B/P (MAP) Pulse Ox O2 Delivery O2 Flow Rate FiO2 12/20/18 11:00 83 18 189/81 (117) 100 Room Air 12/20/18 09:04 2.0 12/20/18 03:00 98.8 98.8 Intake and Output 12/20/18 07:00 Intake Total 730 ml Output Total 5 ml Balance 725 ml Intake Oral 480 ml IV Total 250 ml Output Urine Total 0 ml Estimated Blood Loss 5 ml # Voids 2 Assessment Assessment Problems Medical Problems: (1) Anemia Status: Chronic (2) Diabetic peripheral neuropathy associated with type 2 diabetes mellitus Status: Chronic (3) ESRD on hemodialysis Status: Chronic (4) Fall Status: Acute (5) Hyperglycemia Status: Acute (6) Hyperkalemia Status: Acute (7) PAD (peripheral artery disease) Status: Chronic Comment Review of Relevant I have reviewed the following items pamela (where applicable) has been applied. Labs Laboratory Tests Test 12/18/18 16:53 12/18/18 20:13 12/19/18 06:00 12/19/18 12:08 Glucose (Fingerstick) 159 mg/dL (70-99) 187 mg/dL (70-99) 66 mg/dL (70-99) White Blood Count 10.2 x10^3/uL (4.0-11.0) Red Blood Count 3.40 x10^6/uL (3.50-5.40) Hemoglobin 10.0 g/dL (12.0-15.5) Hematocrit 30.1 % (36.0-47.0) Mean Corpuscular Volume 89 fL (79-100) Mean Corpuscular Hemoglobin 29 pg (25-35) Mean Corpuscular Hemoglobin Concent 33 g/dL (31-37) Red Cell Distribution Width 17.3 % (11.5-14.5) Platelet Count 373 x10^3/uL (140-400) Neutrophils (%) (Auto) 72 % (31-73) Lymphocytes (%) (Auto) 15 % (24-48) Monocytes (%) (Auto) 10 % (0-9) Eosinophils (%) (Auto) 2 % (0-3) Basophils (%) (Auto) 1 % (0-3) Neutrophils # (Auto) 7.3 x10^3/uL (1.8-7.7) Lymphocytes # (Auto) 1.6 x10^3/uL (1.0-4.8) Monocytes # (Auto) 1.1 x10^3/uL (0.0-1.1) Eosinophils # (Auto) 0.2 x10^3/uL (0.0-0.7) Basophils # (Auto) 0.1 x10^3/uL (0.0-0.2) Sodium Level 141 mmol/L (136-145) Potassium Level 5.3 mmol/L (3.5-5.1) Chloride Level 101 mmol/L (98-107) Carbon Dioxide Level 29 mmol/L (21-32) Anion Gap 11 (6-14) Blood Urea Nitrogen 59 mg/dL (7-20) Creatinine 7.1 mg/dL (0.6-1.0) Estimated GFR (Cockcroft-Gault) 7.2 Glucose Level 106 mg/dL (70-99) Calcium Level 8.5 mg/dL (8.5-10.1) Phosphorus Level 7.8 mg/dL (2.6-4.7) Albumin 2.5 g/dL (3.4-5.0) Test 12/19/18 13:31 12/20/18 12:05 Glucose (Fingerstick) 124 mg/dL (70-99) 250 mg/dL (70-99) Laboratory Tests Test 12/19/18 13:31 12/20/18 12:05 Glucose (Fingerstick) 124 mg/dL (70-99) 250 mg/dL (70-99) Microbiology 12/14/18 Blood Culture - Final, Complete NO GROWTH AFTER 5 DAYS Medications Current Medications Fentanyl Citrate (Fentanyl 2ml Vial) 50 mcg 1X ONCE IV Last administered on 12/14/18 02:52; Start 12/14/18 at 01:30; Stop 12/14/18 at 01:32; Status DC Ondansetron HCl (Zofran) 4 mg 1X ONCE IV Last administered on 12/14/18at 02:52; Start 12/14/18 at 01:30; Stop 12/14/18 at 01:32; Status DC Famotidine (Pepcid Vial) 20 mg 1X ONCE IVP Last administered on 12/14/18at 02:52; Start 12/14/18 at 01:30; Stop 12/14/18 at 01:32; Status DC Mupirocin (Bactroban) 1 herber 1X ONCE TP Last administered on 12/14/18at 02:52; Start 12/14/18 at 01:45; Stop 12/14/18 at 01:46; Status DC Mupirocin (Bactroban) 1 herber 1X ONCE TP Last administered on 12/14/18at 02:52; Start 12/14/18 at 02:30; Stop 12/14/18 at 02:31; Status DC Insulin Human Regular (HumuLIN R VIAL) 10 unit 1X ONCE IV ; Start 12/14/18 at 03:30; Stop 12/14/18 at 03:35; Status DC Ondansetron HCl (Zofran) 4 mg PRN Q8HRS PRN IV NAUSEA/VOMITING Last administered on 12/15/18at 00:08; Start 12/14/18 at 04:00; Stop 12/15/18 at 03:59; Status DC Fentanyl Citrate (Fentanyl 2ml Vial) 50 mcg PRN Q2HR PRN IV PAIN Last administered on 12/14/18at 09:00; Start 12/14/18 at 04:00; Stop 12/14/18 at 09:05; Status DC Insulin Human Lispro (HumaLOG) 0-5 UNITS TIDWMEALS SQ Last administered on 12/18/18at 12:03; Start 12/14/18 at 08:00 Dextrose (Dextrose 50%-Water Syringe) 12.5 gm PRN Q15MIN PRN IV SEE COMMENTS; Start 12/14/18 at 04:00 Dextrose 250 ml PRN Q15MIN PRN IV SEE COMMENTS; Start 12/14/18 at 04:00 Albuterol Sulfate (Ventolin Neb Soln) 2.5 mg PRN BID PRN INH SHORTNESS OF BREATH; Start 12/14/18 at 09:00 Alprazolam (Xanax) 0.5 mg PRN TID PRN PO ANXIETY / AGITATION; Start 12/14/18 at 09:00; Stop 12/15/18 at 09:03; Status DC Amlodipine Besylate (Norvasc) 10 mg DAILY PO Last administered on 12/20/18at 10 :15; Start 12/14/18 at 09:00 Atorvastatin Calcium (Lipitor) 40 mg HS PO Last administered on 12/19/18at 21:35; Start 12/14/18 at 21:00 Carvedilol (Coreg) 6.25 mg BIDWMEALS PO Last administered on 12/20/18at 10:14; Start 12/14/18 at 09:00 Clonidine HCl (Catapres Tts-2) 1 patch WEEKLY TD Last administered on 12/14/18at 13:25; Start 12/14/18 at 09:00 Vitamin B Complex/ Vitamin C (Pinky-Shreya) 1 tab DAILY PO Last administered on 12/18/18at 09:09; Start 12/14/18 at 09:00 Acetaminophen/ Hydrocodone Bitart (Lortab 10/325) 1 tab PRN Q4HRS PRN PO MODERATE TO SEVERE PAIN Last administered on 12/15/18 08:05; Start 12/14/18 at 09:00; Stop 12/15/18 at 09:03; Status DC Latanoprost (Xalatan) 1 drop HS OU Last administered on 12/19/18at 21:00; Start 12/14/18 at 21:00 Levothyroxine Sodium (Synthroid) 50 mcg DAILY06 PO Last administered on 12/20/18 06:20; Start 12/14/18 at 09:00 Lisinopril (Prinivil) 20 mg DAILY PO Last administered on 12/17/18 14:16; Start 12/14/18 at 09:00 Prochlorperazine Maleate (Compazine) 5 mg PRN TID PRN PO NAUSEA 2ND CHOICE Last administered on 12/15/18 08:05; Start 12/14/18 at 09:00 Sertraline HCl (Zoloft) 50 mg DAILY PO Last administered on 12/18/18 09:09; Start 12/14/18 at 09:00 Acetaminophen (Tylenol) 650 mg PRN Q6HRS PRN PO MILD PAIN / TEMP; Start 12/14/18 at 09:00 Cephalexin HCl (Keflex) 500 mg TID PO Last administered on 12/16/18 14:07; Start 12/14/18 at 09:00; Stop 12/16/18 at 15:12; Status DC Amylase/Lipase/ Protease (Zenpep 5,000) 1 cap TIDWMEALS PO Last administered on 12/20/18at 10:14; Start 12/14/18 at 09:00 Famotidine (Pepcid) 20 mg QHS PO ; Start 12/14/18 at 21:00; Status Cancel Pantoprazole Sodium (Protonix) 40 mg DAILYAC PO Last administered on 12/20/18 10:13; Start 12/14/18 at 09:00 Fentanyl Citrate (Fentanyl 2ml Vial) 75 mcg PRN Q2HR PRN IV PAIN Last administered on 12/14/18at 11:20; Start 12/14/18 at 09:15; Stop 12/15/18 at 09:03; Status DC Clopidogrel Bisulfate (Plavix) 75 mg DAILYWBKFT PO Last administered on 12/20/18at 10:14; Start 12/14/18 at 10:00 Sodium Chloride 1,000 ml @ 1,000 mls/hr Q1H PRN IV hypotension; Start 12/14/18 at 09:38; Stop 12/14/18 at 15:37; Status DC Acetaminophen (Tylenol) 500 mg 1X PRN PRN PO MILD PAIN / TEMP; Start 12/14/18 at 09:45; Stop 12/15/18 at 09:44; Status DC Diphenhydramine HCl (Benadryl) 25 mg 1X PRN PRN IV ITCHING; Start 12/14/18 at 09:45; Stop 12/15/18 at 09:44; Status DC Diphenhydramine HCl (Benadryl) 25 mg 1X PRN PRN IV ITCHING; Start 12/14/18 at 09:45; Stop 12/15/18 at 09:44; Status DC Sodium Chloride 1,000 ml @ 400 mls/hr Q2H30M PRN IV PATENCY; Start 12/14/18 at 09:38; Stop 12/14/18 at 21:37; Status DC Info (PHARMACY MONITORING -- do not chart) 1 each PRN DAILY PRN MC SEE COMMENTS; Start 12/14/18 at 09:45; Status Cancel Alprazolam (Xanax) 0.25 mg PRN DAILY PRN PO ANXIETY / AGITATION Last administered on 12/20/18at 10:16; Start 12/16/18 at 09:00 Fentanyl Citrate (Fentanyl 2ml Vial) 75 mcg PRN Q4HRS PRN IV PAIN Last administered on 12/16/18at 03:26; Start 12/15/18 at 09:15; Stop 12/16/18 at 10:26; Status DC Acetaminophen/ Hydrocodone Bitart (Lortab 10/325) 1 tab PRN Q6HRS PRN PO MODERATE TO SEVERE PAIN Last administered on 12/20/18at 08:04; Start 12/15/18 at 09:15 Nicotine (Nicoderm Cq 21mg) 1 patch DAILY TD Last administered on 12/17/18at 14:16; Start 12/15/18 at 12:00 Fentanyl (Duragesic 12mcg/ Hr Patch) 1 patch Q3DAYS TD Last administered on 12/18/18at 09:09; Start 12/15/18 at 12:15 Ondansetron HCl (Zofran Odt) 4 mg PRN Q6HRS PRN PO NAUSEA/VOMITING 1ST CHOICE Last administered on 12/18/18at 20:03; Start 12/15/18 at 12:15 Fentanyl Citrate (Fentanyl 2ml Vial) 75 mcg PRN BID PRN IV SEVERE PAIN Last administered on 12/20/18at 02:01; Start 12/16/18 at 14:00 Cephalexin HCl (Keflex) 250 mg BID PO Last administered on 12/18/18at 20:03; Start 12/16/18 at 21:00; Stop 12/19/18 at 18:41; Status DC Sodium Chloride 1,000 ml @ 1,000 mls/hr Q1H PRN IV hypotension; Start 12/17/18 at 08:23; Stop 12/17/18 at 14:22; Status DC Acetaminophen (Tylenol) 500 mg 1X PRN PRN PO MILD PAIN / TEMP; Start 12/17/18 at 08:30; Stop 12/18/18 at 08:29; Status DC Diphenhydramine HCl (Benadryl) 25 mg 1X PRN PRN IV ITCHING; Start 12/17/18 at 08:30; Stop 12/18/18 at 08:29; Status DC Diphenhydramine HCl (Benadryl) 25 mg 1X PRN PRN IV ITCHING; Start 12/17/18 at 08:30; Stop 12/18/18 at 08:29; Status DC Sodium Chloride 1,000 ml @ 400 mls/hr Q2H30M PRN IV PATENCY; Start 12/17/18 at 08:23; Stop 12/17/18 at 20:22; Status DC Info (PHARMACY MONITORING -- do not chart) 1 each PRN DAILY PRN MC SEE COMMENTS; Start 12/17/18 at 08:30; Status Cancel Lactobacillus Rhamnosus (Culturelle) 1 cap BID PO Last administered on 12/20/18at 10:13; Start 12/17/18 at 21:00 Zolpidem Tartrate (Ambien) 5 mg PRN QHS PRN PO INSOMNIA, MAY REPEAT IN 1HR Last administered on 12/19/18at 21:35; Start 12/17/18 at 21:45 Darbepoetin Jarrett (ARANESP for DIALYSIS PTS) 60 mcg WEEKLYHS SQ ; Start 12/18/18 at 21:00 Sodium Chloride 1,000 ml @ 1,000 mls/hr Q1H PRN IV hypotension; Start 12/19/18 at 07:43; Stop 12/19/18 at 13:42; Status DC Acetaminophen (Tylenol) 500 mg 1X PRN PRN PO MILD PAIN / TEMP; Start 12/19/18 at 07:45; Stop 12/20/18 at 07:44; Status DC Diphenhydramine HCl (Benadryl) 25 mg 1X PRN PRN IV ITCHING; Start 12/19/18 at 07:45; Stop 12/20/18 at 07:44; Status DC Diphenhydramine HCl (Benadryl) 25 mg 1X PRN PRN IV ITCHING; Start 12/19/18 at 07:45; Stop 12/20/18 at 07:44; Status DC Sodium Chloride 1,000 ml @ 400 mls/hr Q2H30M PRN IV PATENCY; Start 12/19/18 at 07:43; Stop 12/19/18 at 19:42; Status DC Info (PHARMACY MONITORING -- do not chart) 1 each PRN DAILY PRN MC SEE COMMENTS; Start 12/19/18 at 07:45 Ondansetron HCl (Zofran) 4 mg 1X STAT IV Last administered on 12/19/18at 09:34; Start 12/19/18 at 09:25; Stop 12/19/18 at 09:29; Status DC Ondansetron HCl (Zofran) 4 mg 1X ONCE IV Last administered on 12/19/18at 10:18; Start 12/19/18 at 10:15; Stop 12/19/18 at 10:16; Status DC Ondansetron HCl (Zofran) 4 mg PRN Q6HRS PRN IV NAUSEA/VOMITING; Start 12/19/18 at 10:30; Stop 12/20/18 at 10:29; Status DC Fentanyl Citrate (Fentanyl 2ml Vial) 25 mcg PRN Q5MIN PRN IV MILD PAIN 1-3; Start 12/19/18 at 10:30; Stop 12/19/18 at 20:00; Status DC Fentanyl Citrate (Fentanyl 2ml Vial) 50 mcg PRN Q5MIN PRN IV MODERATE TO SEVERE PAIN Last administered on 12/19/18at 13:37; Start 12/19/18 at 10:30; Stop 12/19/18 at 20:00; Status DC Ringer's Solution 1,000 ml @ 30 mls/hr Q24H IV ; Start 12/19/18 at 10:18; Stop 12/19/18 at 12:23; Status DC Lidocaine HCl (Xylocaine-Mpf 1% 2ml Vial) 2 ml PRN 1X PRN ID PRIOR TO IV START; Start 12/19/18 at 10:30; Stop 12/19/18 at 20:00; Status DC Prochlorperazine Edisylate (Compazine) 5 mg PACU PRN PRN IV NAUSEA, MRX1 Last administered on 12/19/18at 12:57; Start 12/19/18 at 10:30; Stop 12/19/18 at 2 0:00; Status DC Cefazolin Sodium/ Dextrose 50 ml @ 100 mls/hr 1X ONCE IV Last administered on 12/19/18at 12:17; Start 12/19/18 at 12:00; Stop 12/19/18 at 12:29; Status DC Propofol 20 ml @ As Directed STK-MED ONCE IV ; Start 12/19/18 at 12:04; Stop 12/19/18 at 12:05; Status DC Dexamethasone Sodium Phosphate (Decadron) 4 mg STK-MED ONCE .ROUTE ; Start 12/19/18 at 12:04; Stop 12/19/18 at 12:05; Status DC Lidocaine HCl (Lidocaine Pf 2% Vial) 5 ml STK-MED ONCE .ROUTE ; Start 12/19/18 at 12:04; Stop 12/19/18 at 12:05; Status DC Ondansetron HCl (Zofran) 4 mg STK-MED ONCE .ROUTE ; Start 12/19/18 at 12:04; Stop 12/19/18 at 12:05; Status DC Insulin Human Lispro (HumaLOG VIAL for OP,RR ONLY) 0-10 units PRN Q1HR PRN SQ PER PROTOCOL; Start 12/19/18 at 12:15; Stop 12/20/18 at 12:14; Status DC Sodium Chloride 1,000 ml @ 30 mls/hr Q24H IV Last administered on 12/19/18at 12:10; Start 12/19/18 at 12:30 Fentanyl Citrate (Fentanyl 2ml Vial) 100 mcg STK-MED ONCE .ROUTE ; Start 12/19/18 at 12:36; Stop 12/19/18 at 12:36; Status DC Vancomycin HCl (Vanco Per Pharmacy) 1 each PRN DAILY PRN MC SEE COMMENTS Last administered on 12/19/18at 18:53; Start 12/19/18 at 13:00 Piperacillin Sod/ Tazobactam Sod (Zosyn Per Pharmacy) 1 each PRN DAILY PRN MC SEE COMMENTS; Start 12/19/18 at 13:00 Sevoflurane (Ultane) 30 ml STK-MED ONCE IH ; Start 12/19/18 at 12:49; Stop 12/19/18 at 12:49; Status DC Piperacillin Sod/ Tazobactam Sod 2.25 gm/Sodium Chloride 50 ml @ 100 mls/hr Q8HRS IV Last administered on 12/20/18at 06:22; Start 12/19/18 at 14:00 Vancomycin HCl 1.25 gm/Sodium Chloride 250 ml @ 167 mls/hr ONCE ONCE IV Last administered on 12/19/18at 14:51; Start 12/19/18 at 13:15; Stop 12/19/18 at 14:44; Status DC Vancomycin HCl (Vancomycin Random Level) 1 each 1X ONCE MC ; Start 12/21/18 at 06:00; Stop 12/21/18 at 06:01 Active Scripts Active Keflex (Cephalexin) 500 Mg Capsule 1 Cap PO TID Pinky-Shreya Tablet (Folic Acid/Vitamin B Comp W-C) 0.8 Mg Tablet 1 Tab PO DAILY Hydrocodone-Apap 10-325 (Hydrocodone Bit/Acetaminophen) 1 Tab Tablet 1 Tab PO PRN Q4HRS PRN [Darbepoetin Jarrett In Polysorbat] 60 MCG/0.3 ML Disp.syrin 60 Mcg SQ WEEKLYHS 30 Days Alprazolam 0.5 Mg Tablet 0.5 Mg PO PRN TID PRN MDD 1 Tylenol (Acetaminophen) 325 Mg Capsule 650 Mg PO Q6-8HRS PRN Zantac (Ranitidine Hcl) 300 Mg Tablet 1 Tab PO QHS Compazine (Prochlorperazine Maleate) 5 Mg Tablet 5 Mg PO PRN TID PRN 10 Days [Pantoprazole] 40 MG Tablet.dr 40 Mg PO DAILYAC 30 Days Reported Zoloft (Sertraline Hcl) 50 Mg Tablet 50 Mg PO DAILY Lisinopril 20 Mg Tablet 20 Mg PO DAILY Coreg (Carvedilol) 6.25 Mg Tablet 6.25 Mg PO BIDWMELORENA Frey Dr 6,000 Units Capsule (Lipase/Protease/Amylase) 1 Each Capsule. 1 Tab PO TID Proair Hfa (Albuterol Sulfate) 8.5 Gm Hfa.aer.ad 2 Puff INH BID PRN Levothyroxine Sodium 50 Mcg Tablet 1 Tab PO DAILY Clonidine Tts-2 (Clonidine) 1 Each Patch.tdwk 1 Patch TD WEEKLY Amlodipine Besylate 5 Mg Tablet 10 Mg PO DAILY Atorvastatin Calcium 40 Mg Tablet 40 Mg PO HS Latanoprost 2.5 Ml Drops 1 Drop EACHEYE HS Vitals/I & O Vital Sign - Last 24 Hours 12/19/18 12/19/18 12/19/18 12/19/18 13:37 13:37 13:39 13:52 Temp 97.6 97.8 97.6 97.8 Pulse 88 68 Resp 20 20 20 B/P (MAP) 167/56 167/56 Pulse Ox 90 97 99 O2 Delivery Nasal Cannula Nasal Cannula Nasal Cannula Nasal Cannula O2 Flow Rate 2.0 2 2 2 12/19/18 12/19/18 12/19/18 12/19/18 14:07 15:00 15:15 15:15 Temp 98.0 98.1 98.0 98.1 Pulse 79 84 Resp 20 18 B/P (MAP) 181/58 (99) 160/45 (83) Pulse Ox 99 100 99 100 O2 Delivery Nasal Cannula Room Air Nasal Cannula Room Air O2 Flow Rate 2.0 2.0 12/19/18 12/19/18 12/19/18 12/19/18 15:30 15:45 15:45 16:15 Temp 98.1 98.1 98.1 98.1 Pulse 83 83 77 Resp 18 20 20 B/P (MAP) 178/71 (106) 165/59 (94) 166/52 (90) Pulse Ox 100 100 99 100 O2 Delivery Nasal Cannula Nasal Cannula Nasal Cannula Nasal Cannula O2 Flow Rate 2.0 2.0 2.0 2.0 12/19/18 12/19/18 12/19/18 12/19/18 16:45 17:45 18:52 18:53 Temp 98.3 98.3 Pulse 80 80 79 Resp 20 19 20 B/P (MAP) 162/58 (92) 161/54 (89) 181/58 Pulse Ox 100 100 99 O2 Delivery Nasal Cannula Nasal Cannula Nasal Cannula O2 Flow Rate 2.0 2.0 2.0 12/19/18 12/19/18 12/19/18 12/19/18 19:14 20:00 20:00 23:00 Temp 98.1 98.2 98.1 98.2 Pulse 79 65 Resp 21 15 18 B/P (MAP) 167/56 (93) 158/59 (92) Pulse Ox 97 97 97 O2 Delivery Room Air Nasal Cannula Nasal Cannula Nasal Cannula O2 Flow Rate 2.0 2.0 2.0 2.0 12/20/18 12/20/18 12/20/18 12/20/18 01:16 02:01 02:31 02:31 Resp 15 17 16 16 Pulse Ox 97 97 97 97 O2 Delivery Nasal Cannula Nasal Cannula Nasal Cannula Nasal Cannula O2 Flow Rate 2.0 2.0 2.0 2.0 12/20/18 12/20/18 12/20/18 12/20/18 03:00 07:00 08:00 08:04 Temp 98.8 98.8 Pulse 79 83 Resp 16 20 B/P (MAP) 159/53 (88) 182/91 (121) Pulse Ox 98 98 O2 Delivery Nasal Cannula Nasal Cannula Nasal Cannula O2 Flow Rate 2.0 2.0 2.0 12/20/18 12/20/18 12/20/18 12/20/18 09:04 10:14 10:15 11:00 Pulse 83 83 83 Resp 20 18 B/P (MAP) 182/91 182/91 189/81 (117) Pulse Ox 98 100 O2 Delivery Nasal Cannula Room Air O2 Flow Rate 2.0 Intake and Output 12/19/18 12/19/18 12/20/18 15:00 23:00 07:00 Intake Total 250 ml 480 ml Output Total 5 ml Balance 245 ml 480 ml KATHY MCLEAN APRN Dec 20, 2018 13:36
[2018-12-20] MEDS: MORPHINE SULFATE 2 MG/ML VIAL. IV PRN ×6 (13:45→23:59)
[2018-12-20 15:00] VITALS: BP 152/42
[2018-12-20] MEDS: VANCOMYCIN PER PHARMACY MC PRN (16:01)
--- NOTE | 2018-12-20 16:43 | NUR ---
Wound Care Wound care consult for left foot open amp site of 4th and 5th toes. Removed surgical dressing gently with saline and noted bleeding to wound bed in several places. Unable to stop bleeding with pressure and collagen, V-pad applied with light pressure dressing. Unable to place wound vac due to bleeding. Will follow up tomorrow for vac placement. Pt c/o pain and was tearful throughout procedure.
[2018-12-20 19:00] VITALS: BP 176/56
[2018-12-20] MEDS: ATORVASTATIN CALCIUM 40 MG TABLET. PO SCH (20:00)
[2018-12-20] MEDS: LATANOPROST 0.005% OPHTH SOLUTION 2.5ML BOTTLE. OU SCH (21:00)
[2018-12-20 23:00] VITALS: BP 165/55
[2018-12-20] MEDS: PROCHLORPERAZINE 5 MG TABLET. PO PRN (23:28)
[2018-12-21] MEDS: MORPHINE SULFATE 2 MG/ML VIAL. IV PRN ×10 (02:10→22:42)
[2018-12-21 03:00] VITALS: BP 172/59
[2018-12-21] MEDS: HYDROcodone/APAP 10/325 1 TAB TABLET PO PRN ×2 (04:06→12:36)
[2018-12-21] MEDS ORDERED: VANCOMYCIN RANDOM LEVEL. MC ONE (06:00)
[2018-12-21] MEDS: LEVOTHYROXINE 50 MCG TABLET PO SCH (06:08)
[2018-12-21] MEDS: PIPERACILLIN/TAZOBACTAM 2.25 GM in IV NORMAL SALINE 50ML 50 ML IV SCH ×3 (06:09→22:42)
[2018-12-21 07:00] VITALS: BP 198/70
--- NOTE | 2018-12-21 07:39 | PDOC ---
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 Nonvisualization of flow in the distal HORTICULTURE SUPERVISOR suggests occlusion, age indeterminate. Anxiety, depression sec to med illness mod to severe pcm History of Present Illness History of Present Illness PLAN Dtr wants her snu - pt not cooperative emesis this AM OFf IV meds, medically cleared to dc She complains of her usual pain asking again for IV pain meds SW, help with dc dispo/plans FULL CODE Wound care of that stump HD per renal palliative care and protective services social worker awaiting for arrival of daughter to discuss plan of care following vasc surgery 39 min pt exam, chart review, > 50% of time spent with exam, chart review, pt care coordination Vitals Vitals Vital Signs Date Time Temp Pulse Resp B/P (MAP) Pulse Ox O2 Delivery O2 Flow Rate FiO2 12/21/18 06:09 Room Air 12/21/18 03:00 98.0 76 17 172/59 (96) 99 98.0 12/20/18 09:04 2.0 Physical Exam General: Alert, Oriented X3, Cooperative, mild distress Heart: Regular rate, Normal S1, Normal S2 Lungs: Clear Abdomen: Normal bowel sounds, No tenderness Extremities: No clubbing, No cyanosis, Normal pulses Skin: Other (bka stump, wound dressing, amputated toes) Labs LABS Laboratory Tests Test 12/20/18 12:05 12/20/18 17:28 Glucose (Fingerstick) 250 mg/dL (70-99) 204 mg/dL (70-99) Assessment and Plan Assessmemt and Plan Problems Medical Problems: (1) Anemia Status: Chronic (2) Diabetic peripheral neuropathy associated with type 2 diabetes mellitus Status: Chronic (3) ESRD on hemodialysis Status: Chronic (4) Fall Status: Acute (5) Hyperglycemia Status: Acute (6) Hyperkalemia Status: Acute (7) PAD (peripheral artery disease) Status: Chronic Comment Review of Relevant I have reviewed the following items pamela (where applicable) has been applied. Labs Laboratory Tests Test 12/19/18 12:08 12/19/18 13:31 12/20/18 12:05 12/20/18 17:28 Glucose (Fingerstick) 66 mg/dL (70-99) 124 mg/dL (70-99) 250 mg/dL (70-99) 204 mg/dL (70-99) Laboratory Tests Test 12/20/18 12:05 12/20/18 17:28 Glucose (Fingerstick) 250 mg/dL (70-99) 204 mg/dL (70-99) Microbiology 12/14/18 Blood Culture - Final, Complete NO GROWTH AFTER 5 DAYS Medications Current Medications Fentanyl Citrate (Fentanyl 2ml Vial) 50 mcg 1X ONCE IV Last administered on 12/14/18at 02:52; Start 12/14/18 at 01:30; Stop 12/14/18 at 01:32; Status DC Ondansetron HCl (Zofran) 4 mg 1X ONCE IV Last administered on 12/14/18at 02:52; Start 12/14/18 at 01:30; Stop 12/14/18 at 01:32; Status DC Famotidine (Pepcid Vial) 20 mg 1X ONCE IVP Last administered on 12/14/18at 02:52; Start 12/14/18 at 01:30; Stop 12/14/18 at 01:32; Status DC Mupirocin (Bactroban) 1 herber 1X ONCE TP Last administered on 12/14/18at 02:52; Start 12/14/18 at 01:45; Stop 12/14/18 at 01:46; Status DC Mupirocin (Bactroban) 1 herber 1X ONCE TP Last administered on 12/14/18at 02:52; Start 12/14/18 at 02:30; Stop 12/14/18 at 02:31; Status DC Insulin Human Regular (HumuLIN R VIAL) 10 unit 1X ONCE IV ; Start 12/14/18 at 03:30; Stop 12/14/18 at 03:35; Status DC Ondansetron HCl (Zofran) 4 mg PRN Q8HRS PRN IV NAUSEA/VOMITING Last administered on 12/15/18at 00:08; Start 12/14/18 at 04:00; Stop 12/15/18 at 03:59; Status DC Fentanyl Citrate (Fentanyl 2ml Vial) 50 mcg PRN Q2HR PRN IV PAIN Last administered on 12/14/18at 09:00; Start 12/14/18 at 04:00; Stop 12/14/18 at 09:05; Status DC Insulin Human Lispro (HumaLOG) 0-5 UNITS TIDWMEALS SQ Last administered on 12/20/18at 17:37; Start 12/14/18 at 08:00 Dextrose (Dextrose 50%-Water Syringe) 12.5 gm PRN Q15MIN PRN IV SEE COMMENTS; Start 12/14/18 at 04:00 Dextrose 250 ml PRN Q15MIN PRN IV SEE COMMENTS; Start 12/14/18 at 04:00 Albuterol Sulfate (Ventolin Neb Soln) 2.5 mg PRN BID PRN INH SHORTNESS OF BREATH; Start 12/14/18 at 09:00 Alprazolam (Xanax) 0.5 mg PRN TID PRN PO ANXIETY / AGITATION; Start 12/14/18 at 09:00; Stop 12/15/18 at 09:03; Status DC Amlodipine Besylate (Norvasc) 10 mg DAILY PO Last administered on 12/20/18at 10:15; Start 12/14/18 at 09:00 Atorvastatin Calcium (Lipitor) 40 mg HS PO Last administered on 12/20/18at 20:0 0; Start 12/14/18 at 21:00 Carvedilol (Coreg) 6.25 mg BIDWMEALS PO Last administered on 12/20/18at 17:31; Start 12/14/18 at 09:00 Clonidine HCl (Catapres Tts-2) 1 patch WEEKLY TD Last administered on 12/14/18at 13:25; Start 12/14/18 at 09:00 Vitamin B Complex/ Vitamin C (Pinky-Shreya) 1 tab DAILY PO Last administered on 12/18/18at 09:09; Start 12/14/18 at 09:00 Acetaminophen/ Hydrocodone Bitart (Lortab 10/325) 1 tab PRN Q4HRS PRN PO MODERATE TO SEVERE PAIN Last administered on 12/15/18at 08:05; Start 12/14/18 at 09:00; Stop 12/15/18 at 09:03; Status DC Latanoprost (Xalatan) 1 drop HS OU Last administered on 12/20/18 21:00; Start 12/14/18 at 21:00 Levothyroxine Sodium (Synthroid) 50 mcg DAILY06 PO Last administered on 12/21/18 06:08; Start 12/14/18 at 09:00 Lisinopril (Prinivil) 20 mg DAILY PO Last administered on 12/17/18 14:16; Start 12/14/18 at 09:00 Prochlorperazine Maleate (Compazine) 5 mg PRN TID PRN PO NAUSEA 2ND CHOICE Last administered on 12/20/18 23:28; Start 12/14/18 at 09:00 Sertraline HCl (Zoloft) 50 mg DAILY PO Last administered on 12/18/18 09:09; Start 12/14/18 at 09:00 Acetaminophen (Tylenol) 650 mg PRN Q6HRS PRN PO MILD PAIN / TEMP; Start 12/14/18 at 09:00 Cephalexin HCl (Keflex) 500 mg TID PO Last administered on 12/16/18 14:07; St art 12/14/18 at 09:00; Stop 12/16/18 at 15:12; Status DC Amylase/Lipase/ Protease (Zenpep 5,000) 1 cap TIDWMEALS PO Last administered on 12/20/18at 15:43; Start 12/14/18 at 09:00 Famotidine (Pepcid) 20 mg QHS PO ; Start 12/14/18 at 21:00; Status Cancel Pantoprazole Sodium (Protonix) 40 mg DAILYAC PO Last administered on 12/20/18 10:13; Start 12/14/18 at 09:00 Fentanyl Citrate (Fentanyl 2ml Vial) 75 mcg PRN Q2HR PRN IV PAIN Last administered on 12/14/18at 11:20; Start 12/14/18 at 09:15; Stop 12/15/18 at 0 9:03; Status DC Clopidogrel Bisulfate (Plavix) 75 mg DAILYWBKFT PO Last administered on 12/20/18at 10:14; Start 12/14/18 at 10:00 Sodium Chloride 1,000 ml @ 1,000 mls/hr Q1H PRN IV hypotension; Start 12/14/18 at 09:38; Stop 12/14/18 at 15:37; Status DC Acetaminophen (Tylenol) 500 mg 1X PRN PRN PO MILD PAIN / TEMP; Start 12/14/18 at 09:45; Stop 12/15/18 at 09:44; Status DC Diphenhydramine HCl (Benadryl) 25 mg 1X PRN PRN IV ITCHING; Start 12/14/18 at 09:45; Stop 12/15/18 at 09:44; Status DC Diphenhydramine HCl (Benadryl) 25 mg 1X PRN PRN IV ITCHING; Start 12/14/18 at 09:45; Stop 12/15/18 at 09:44; Status DC Sodium Chloride 1,000 ml @ 400 mls/hr Q2H30M PRN IV PATENCY; Start 12/14/18 at 09:38; Stop 12/14/18 at 21:37; Status DC Info (PHARMACY MONITORING -- do not chart) 1 each PRN DAILY PRN MC SEE COMMENTS; Start 12/14/18 at 09:45; Status Cancel Alprazolam (Xanax) 0.25 mg PRN DAILY PRN PO ANXIETY / AGITATION Last administered on 12/20/18at 10:16; Start 12/16/18 at 09:00 Fentanyl Citrate (Fentanyl 2ml Vial) 75 mcg PRN Q4HRS PRN IV PAIN Last administered on 12/16/18at 03:26; Start 12/15/18 at 09:15; Stop 12/16/18 at 10:26; Status DC Acetaminophen/ Hydrocodone Bitart (Lortab 10/325) 1 tab PRN Q6HRS PRN PO MODERATE TO SEVERE PAIN Last administered on 12/21/18at 04:06; Start 12/15/18 at 09:15 Nicotine (Nicoderm Cq 21mg) 1 patch DAILY TD Last administered on 12/17/18at 14:16; Start 12/15/18 at 12:00 Fentanyl (Duragesic 12mcg/ Hr Patch) 1 patch Q3DAYS TD Last administered on 12/18/18at 09:09; Start 12/15/18 at 12:15 Ondansetron HCl (Zofran Odt) 4 mg PRN Q6HRS PRN PO NAUSEA/VOMITING 1ST CHOICE Last administered on 12/18/18at 20:03; Start 12/15/18 at 12:15 Fentanyl Citrate (Fentanyl 2ml Vial) 75 mcg PRN BID PRN IV SEVERE PAIN, 1st CHOICE Last administered on 12/20/18at 02:01; Start 12/16/18 at 14:00 Cephalexin HCl (Keflex) 250 mg BID PO Last administered on 12/18/18at 20:03; Start 12/16/18 at 21:00; Stop 12/19/18 at 18:41; Status DC Sodium Chloride 1,000 ml @ 1,000 mls/hr Q1H PRN IV hypotension; Start 12/17/18 at 08:23; Stop 12/17/18 at 14:22; Status DC Acetaminophen (Tylenol) 500 mg 1X PRN PRN PO MILD PAIN / TEMP; Start 12/17/18 at 08:30; Stop 12/18/18 at 08:29; Status DC Diphenhydramine HCl (Benadryl) 25 mg 1X PRN PRN IV ITCHING; Start 12/17/18 at 08:30; Stop 12/18/18 at 08:29; Status DC Diphenhydramine HCl (Benadryl) 25 mg 1X PRN PRN IV ITCHING; Start 12/17/18 at 08:30; Stop 12/18/18 at 08:29; Status DC Sodium Chloride 1,000 ml @ 400 mls/hr Q2H30M PRN IV PATENCY; Start 12/17/18 at 08:23; Stop 12/17/18 at 20:22; Status DC Info (PHARMACY MONITORING -- do not chart) 1 each PRN DAILY PRN MC SEE COMMENTS; Start 12/17/18 at 08:30; Status Cancel Lactobacillus Rhamnosus (Culturelle) 1 cap BID PO Last administered on 12/20/18at 20:00; Start 12/17/18 at 21:00 Zolpidem Tartrate (Ambien) 5 mg PRN QHS PRN PO INSOMNIA, MAY REPEAT IN 1HR Last administered on 12/19/18at 21:35; Start 12/17/18 at 21:45 Darbepoetin Jarrett (ARANESP for DIALYSIS PTS) 60 mcg WEEKLYHS SQ ; Start 12/18/18 at 21:00 Sodium Chloride 1,000 ml @ 1,000 mls/hr Q1H PRN IV hypotension; Start 12/19/18 at 07:43; Stop 12/19/18 at 13:42; Status DC Acetaminophen (Tylenol) 500 mg 1X PRN PRN PO MILD PAIN / TEMP; Start 12/19/18 at 07:45; Stop 12/20/18 at 07:44; Status DC Diphenhydramine HCl (Benadryl) 25 mg 1X PRN PRN IV ITCHING; Start 12/19/18 at 07:45; Stop 12/20/18 at 07:44; Status DC Diphenhydramine HCl (Benadryl) 25 mg 1X PRN PRN IV ITCHING; Start 12/19/18 at 07:45; Stop 12/20/18 at 07:44; Status DC Sodium Chloride 1,000 ml @ 400 mls/hr Q2H30M PRN IV PATENCY; Start 12/19/18 at 07:43; Stop 12/19/18 at 19:42; Status DC Info (PHARMACY MONITORING -- do not chart) 1 each PRN DAILY PRN MC SEE COMMENTS; Start 12/19/18 at 07:45 Ondansetron HCl (Zofran) 4 mg 1X STAT IV Last administered on 12/19/18at 09:34; Start 12/19/18 at 09:25; Stop 12/19/18 at 09:29; Status DC Ondansetron HCl (Zofran) 4 mg 1X ONCE IV Last administered on 12/19/18at 10:18; Start 12/19/18 at 10:15; Stop 12/19/18 at 10:16; Status DC Ondansetron HCl (Zofran) 4 mg PRN Q6HRS PRN IV NAUSEA/VOMITING; Start 12/19/18 at 10:30; Stop 12/20/18 at 10:29; Status DC Fentanyl Citrate (Fentanyl 2ml Vial) 25 mcg PRN Q5MIN PRN IV MILD PAIN 1-3; Start 12/19/18 at 10:30; Stop 12/19/18 at 20:00; Status DC Fentanyl Citrate (Fentanyl 2ml Vial) 50 mcg PRN Q5MIN PRN IV MODERATE TO SEVERE PAIN Last administered on 12/19/18at 13:37; Start 12/19/18 at 10:30; Stop 12/19/18 at 20:00; Status DC Ringer's Solution 1,000 ml @ 30 mls/hr Q24H IV ; Start 12/19/18 at 10:18; Stop 12/19/18 at 12:23; Status DC Lidocaine HCl (Xylocaine-Mpf 1% 2ml Vial) 2 ml PRN 1X PRN ID PRIOR TO IV START; Start 12/19/18 at 10:30; Stop 12/19/18 at 20:00; Status DC Prochlorperazine Edisylate (Compazine) 5 mg PACU PRN PRN IV NAUSEA, MRX1 Last administered on 12/19/18at 12:57; Start 12/19/18 at 10:30; Stop 12/19/18 at 20:00; Status DC Cefazolin Sodium/ Dextrose 50 ml @ 100 mls/hr 1X ONCE IV Last administered on 12/19/18at 12:17; Start 12/19/18 at 12:00; Stop 12/19/18 at 12:29; Status DC Propofol 20 ml @ As Directed STK-MED ONCE IV ; Start 12/19/18 at 12:04; Stop 12/19/18 at 12:05; Status DC Dexamethasone Sodium Phosphate (Decadron) 4 mg STK-MED ONCE .ROUTE ; Start 12/19/18 at 12:04; Stop 12/19/18 at 12:05; Status DC Lidocaine HCl (Lidocaine Pf 2% Vial) 5 ml STK-MED ONCE .ROUTE ; Start 12/19/18 at 12:04; Stop 12/19/18 at 12:05; Status DC Ondansetron HCl (Zofran) 4 mg STK-MED ONCE .ROUTE ; Start 12/19/18 at 12:04; Stop 12/19/18 at 12:05; Status DC Insulin Human Lispro (HumaLOG VIAL for OP,RR ONLY) 0-10 units PRN Q1HR PRN SQ PER PROTOCOL; Start 12/19/18 at 12:15; Stop 12/20/18 at 12:14; Status DC Sodium Chloride 1,000 ml @ 30 mls/hr Q24H IV Last administered on 12/19/18at 12:10; Start 12/19/18 at 12:30 Fentanyl Citrate (Fentanyl 2ml Vial) 100 mcg STK-MED ONCE .ROUTE ; Start 12/19/18 at 12:36; Stop 12/19/18 at 12:36; Status DC Vancomycin HCl (Vanco Per Pharmacy) 1 each PRN DAILY PRN MC SEE COMMENTS Last administered on 12/20/18at 16:01; Start 12/19/18 at 13:00 Piperacillin Sod/ Tazobactam Sod (Zosyn Per Pharmacy) 1 each PRN DAILY PRN MC SEE COMMENTS; Start 12/19/18 at 13:00 Sevoflurane (Ultane) 30 ml STK-MED ONCE IH ; Start 12/19/18 at 12:49; Stop 12/19/18 at 12:49; Status DC Piperacillin Sod/ Tazobactam Sod 2.25 gm/Sodium Chloride 50 ml @ 100 mls/hr Q8HRS IV Last administered on 12/21/18at 06:09; Start 12/19/18 at 14:00 Vancomycin HCl 1.25 gm/Sodium Chloride 250 ml @ 167 mls/hr ONCE ONCE IV Last administered on 12/19/18at 14:51; Start 12/19/18 at 13:15; Stop 12/19/18 at 14:44; Status DC Vancomycin HCl (Vancomycin Random Level) 1 each 1X ONCE MC ; Start 12/21/18 at 06:00; Stop 12/21/18 at 06:02; Status DC Morphine Sulfate (Morphine Sulfate) 2 mg PRN Q2HR PRN IV SEVERE PAIN 7-10, 2nd CHOICE Last administered on 12/21/18at 06:09; Start 12/20/18 at 13:30 Diphenhydramine HCl (Benadryl) 25 mg PRN Q6HRS PRN PO ITCHING; Start 12/20/18 at 13:30 Morphine Sulfate (Morphine Sulfate) 2 mg PRN Q2HR PRN IV PAIN; Start 12/20/18 at 13:30; Status UNV Active Scripts Active Keflex (Cephalexin) 500 Mg Capsule 1 Cap PO TID Pinky-Shreya Tablet (Folic Acid/Vitamin B Comp W-C) 0.8 Mg Tablet 1 Tab PO DAILY Hydrocodone-Apap 10-325 (Hydrocodone Bit/Acetaminophen) 1 Tab Tablet 1 Tab PO PRN Q4HRS PRN [Darbepoetin Jarrett In Polysorbat] 60 MCG/0.3 ML Disp.syrin 60 Mcg SQ WEEKLYHS 30 Days Alprazolam 0.5 Mg Tablet 0.5 Mg PO PRN TID PRN MDD 1 Tylenol (Acetaminophen) 325 Mg Capsule 650 Mg PO Q6-8HRS PRN Zantac (Ranitidine Hcl) 300 Mg Tablet 1 Tab PO QHS Compazine (Prochlorperazine Maleate) 5 Mg Tablet 5 Mg PO PRN TID PRN 10 Days [Pantoprazole] 40 MG Tablet. 40 Mg PO DAILYAC 30 Days Reported Zoloft (Sertraline Hcl) 50 Mg Tablet 50 Mg PO DAILY Lisinopril 20 Mg Tablet 20 Mg PO DAILY Coreg (Carvedilol) 6.25 Mg Tablet 6.25 Mg PO BIDWMEALS Creon 6,000 Units Capsule (Lipase/Protease/Amylase) 1 Each Capsule.dr 1 Tab PO TID Proair Hfa (Albuterol Sulfate) 8.5 Gm Hfa.aer.ad 2 Puff INH BID PRN Levothyroxine Sodium 50 Mcg Tablet 1 Tab PO DAILY Clonidine Tts-2 (Clonidine) 1 Each Patch.tdwk 1 Patch TD WEEKLY Amlodipine Besylate 5 Mg Tablet 10 Mg PO DAILY Atorvastatin Calcium 40 Mg Tablet 40 Mg PO HS Latanoprost 2.5 Ml Drops 1 Drop EACHEYE HS Vitals/I & O Vital Sign - Last 24 Hours 12/20/18 12/20/18 12/20/18 12/20/18 08:00 08:04 09:04 10:14 Pulse 83 Resp 20 20 B/P (MAP) 182/91 Pulse Ox 98 98 O2 Delivery Nasal Cannula Nasal Cannula Nasal Cannula O2 Flow Rate 2.0 2.0 2.0 12/20/18 12/20/18 12/20/18 12/20/18 10:15 11:00 13:45 14:15 Pulse 83 83 Resp 18 20 20 B/P (MAP) 182/91 189/81 (117) Pulse Ox 100 O2 Delivery Room Air Room Air Room Air 12/20/18 12/20/18 12/20/18 12/20/18 15:00 15:44 15:45 16:15 Temp 98.4 98.4 Pulse 87 Resp B/P (MAP) 152/42 (78) Pulse Ox 96 O2 Delivery Room Air Room Air Room Air Room Air 12/20/18 12/20/18 12/20/1812/20/19 16:44 17:31 17:55 18:25 Pulse 98 Resp 18 28 28 B/P (MAP) 163/83 O2 Delivery Room Air Room Air Room Air 12/20/18 12/20/18 12/20/18 12/20/18 19:00 20:00 20:00 20:30 Temp 98.5 98.5 Pulse 88 Resp 17 B/P (MAP) 176/56 (96) Pulse Ox 98 O2 Delivery Room Air Room Air Room Air Room Air 12/20/18 12/20/18 12/20/18 12/20/18 21:57 21:58 22:28 22:57 O2 Delivery Room Air Room Air Room Air Room Air 12/20/18 12/20/18 12/21/18 12/21/18 23:00 23:59 00:29 02:10 Temp 98.1 98.1 Pulse 74 Resp 17 B/P (MAP) 165/55 (91) Pulse Ox 96 O2 Delivery Room Air Room Air Room Air Room Air 12/21/18 12/21/18 12/21/18 12/21/18 02:40 03:00 04:06 04:06 Temp 98.0 98.0 Pulse 76 Resp 17 B/P (MAP) 172/59 (96) Pulse Ox 99 O2 Delivery Room Air Room Air Nasal Cannula Room Air 12/21/18 12/21/18 12/21/18 04:36 05:08 06:09 O2 Delivery Room Air Room Air Room Air Intake and Output 12/20/18 12/20/18 12/21/18 15:00 23:00 07:00 Intake Total 800 ml 160 ml Output Total 0 ml Balance 0 ml 800 ml 160 ml SANGEETHA MUELLER MD Dec 21, 2018 07:39
[2018-12-21] MEDS: PANTOPRAZOLE 40 MG TABLET.DR. PO SCH (07:44)
--- NOTE | 2018-12-21 07:56 | NUR ---
Night Nurse Kymberly informed RN unable to infuse patient 0600 antibiotics Zosyn and Vancomycin as REJ IV too positional and infusion pump beeping occluded, stated took 4 hours to infuse previous IV antibiotic with constant readjustment of positional IV. Page to Dr. De Guzman regards IV antibiotics.
[2018-12-21] MEDS: CARVEDILOL 6.25 MG TABLET. PO SCH ×2 (08:00→16:36)
[2018-12-21] MEDS: INSULIN LISPRO 300 UNITS/3 ML VIAL. SQ SCH ×3 (08:32→17:00)
[2018-12-21] MEDS: NICOTINE 21MG PATCH. TD SCH (09:00)
--- NOTE | 2018-12-21 09:05 | NUR ---
See nursing communication and orders. Dr. Mahoney returned call, to consult anesthesia for central line, will notify [facility] [employer].
--- NOTE | 2018-12-21 09:19 | PDOC ---
Infectious Disease Note Subjective Subjective pt is feeling ok, cont pain ROS ROS no n/v/d/sob Vital Sign Vital Signs Vital Signs Date Time Temp Pulse Resp B/P (MAP) Pulse Ox O2 Delivery O2 Flow Rate FiO2 12/21/18 07:45 20 Room Air 12/21/18 07:00 98.3 88 198/70 (112) 93 98.3 12/20/18 09:04 2.0 Physical Exam PHYSICAL EXAM GENERAL: Alert, oriented female, not in distress. VITAL SIGNS: Stable, afebrile. HEENT: NAD. NECK: Supple, no JVP, no lymphadenopathy. LUNGS: Clear. HEART: S1, S2 regular. ABDOMEN: Benign. EXTREMITIES: Right [id number] amputation stump looks great. Left post-surgical dressing was not open. SKIN: Rest of the skin examination unremarkable. NEUROLOGIC: The patient is neurologically alert, awake and appropriate. No focal neurologic deficit. Labs Lab Laboratory Tests Test 12/20/18 12:05 12/20/18 17:28 12/21/18 07:55 Glucose (Fingerstick) 250 mg/dL (70-99) 204 mg/dL (70-99) 174 mg/dL (70-99) Micro Microbiology 12/14/18 Blood Culture - Final, Complete NO GROWTH AFTER 5 DAYS Objective Assessment 1. Left fourth toe open amputation and left fifth toe amp site I and D. 2. Severe peripheral arterial disease. 3. Diabetes. 4. Hypertension. 5. End-stage renal disease, on hemodialysis. Plan Plan of Care cont antibiotics cont wound care supportive care ELYSSA YATES MD Dec 21, 2018 09:19
--- NOTE | 2018-12-21 09:23 | NUR ---
Dr. Schuster here to see patient, d/w him patient needing CL for IV antibiotics, he states dc CL order, he will order antibiotics to be given with dialysis. See orders.
[2018-12-21] MEDS: CLOPIDOGREL BISULFATE 75 MG TABLET PO SCH (09:38)
[2018-12-21] MEDS: LACTOBACILLUS RHAMNOSUS GG 1 CAPSULE. PO SCH ×2 (09:38→22:42)
[2018-12-21] MEDS: FOLIC/VIT B COMP W-C (RENAL) TABLET. PO SCH (09:43)
[2018-12-21] MEDS: PROCHLORPERAZINE 5 MG TABLET. PO PRN (09:43)
[2018-12-21] MEDS: SERTRALINE 50 MG TABLET. PO SCH (09:43)
[2018-12-21] MEDS: fentaNYL 12MCG/HR PATCH 1 PATCH PATCH.TD72 TD SCH (09:46)
[2018-12-21] MEDS: cloNIDine TTS-2 1 PATCH PATCH TD SCH (09:47)
--- NOTE | 2018-12-21 09:50 | NUR ---
Oral medications for blood pressure held per protocol before dialysis d/w Layne MCKENZIEcontrol area operator and cefipime to be given with dialysis.
[2018-12-21 11:00] VITALS: BP 158/60
[2018-12-21] MEDS ORDERED: IV NORMAL SALINE 1000ML BAG 1,000 ML IV PRN ×2 (11:00)
--- NOTE | 2018-12-21 11:21 | PDOC ---
PROGRESS NOTES Chief Complaint Chief Complaint s/p left 4th toe s/p 5th left toe revision s/p RT BKA, HTN urgency - resolved ESRD -on HD anemai of ESRD Hypothyroidism - on replacement therapy Left 5th digit amputation - Dyslipidemia on meds PAD - Diffuse moderate to advanced atherosclerotic plaque in the lower activity arteries with moderate stenosis in the mid SFA, mild to moderate stenosis in the popliteal artery. Nonvisualization of flow in the distal SENIOR SYSTEMS DEVELOPER suggests occlusion, age indeterminate. Anxiety, depression sec to med illness mod to severe pcm History of Present Illness History of Present Illness Asks me if i were "kicking her out" [facility] ID has her on IV vanc and zosyn Afebrile, non toxic appearing Dw case mx and SW and RN -slated for home (maybe with ), she left [facility] from [facility] PLAN: Keep, still on iV abx DNR Keep current MAR Vitals Vitals Vital Signs Date Time Temp Pulse Resp B/P (MAP) Pulse Ox O2 Delivery O2 Flow Rate FiO2 12/21/18 10:26 20 Room Air 12/21/18 08:00 88 198/70 12/21/18 07:00 98.3 93 98.3 12/20/18 09:04 2.0 Physical Exam Physical Exam GENERAL: Alert, oriented female, not in distress. VITAL SIGNS: Stable, afebrile. HEENT: NAD. NECK: Supple, no JVP, no lymphadenopathy. LUNGS: Clear. HEART: S1, S2 regular. ABDOMEN: Benign. EXTREMITIES: Right [id number] amputation stump looks great. Left post-surgical dressing was not open. SKIN: Rest of the skin examination unremarkable. NEUROLOGIC: The patient is neurologically alert, awake and appropriate. No focal neurologic deficit. General: Alert, Oriented X3, Cooperative, mild distress Heart: Regular rate, Normal S1, Normal S2 Lungs: Clear Abdomen: Normal bowel sounds, No tenderness Extremities: No clubbing, No cyanosis, Normal pulses Skin: Other (bka stump, wound dressing, amputated toes) Labs LABS Laboratory Tests Test 12/20/18 12:05 12/20/18 17:28 12/21/18 07:55 Glucose (Fingerstick) 250 mg/dL (70-99) 204 mg/dL (70-99) 174 mg/dL (70-99) Review of Systems Review of Systems pain all over- nothing new Assessment and Plan Assessmemt and Plan Problems Medical Problems: (1) Anemia Status: Chronic (2) Diabetic peripheral neuropathy associated with type 2 diabetes mellitus Status: Chronic (3) ESRD on hemodialysis Status: Chronic (4) Fall Status: Acute (5) Hyperglycemia Status: Acute (6) Hyperkalemia Status: Acute (7) PAD (peripheral artery disease) Status: Chronic Comment Review of Relevant I have reviewed the following items pamela (where applicable) has been applied. Labs Laboratory Tests Test 12/19/18 12:08 12/19/18 13:31 12/20/18 12:05 12/20/18 17:28 Glucose (Fingerstick) 66 mg/dL (70-99) 124 mg/dL (70-99) 250 mg/dL (70-99) 204 mg/dL (70-99) Test 12/21/18 07:55 Glucose (Fingerstick) 174 mg/dL (70-99) Laboratory Tests Test 12/20/18 12:05 12/20/18 17:28 12/21/18 07:55 Glucose (Fingerstick) 250 mg/dL (70-99) 204 mg/dL (70-99) 174 mg/dL (70-99) Microbiology 12/14/18 Blood Culture - Final, Complete NO GROWTH AFTER 5 DAYS Medications Current Medications Fentanyl Citrate (Fentanyl 2ml Vial) 50 mcg 1X ONCE IV Last administered on 12/14/18at 02:52; Start 12/14/18 at 01:30; Stop 12/14/18 at 01:32; Status DC Ondansetron HCl (Zofran) 4 mg 1X ONCE IV Last administered on 12/14/18at 02:52; Start 12/14/18 at 01:30; Stop 12/14/18 at 01:32; Status DC Famotidine (Pepcid Vial) 20 mg 1X ONCE IVP Last administered on 12/14/18at 02:52; Start 12/14/18 at 01:30; Stop 12/14/18 at 01:32; Status DC Mupirocin (Bactroban) 1 herber 1X ONCE TP Last administered on 12/14/18at 02:52; Start 12/14/18 at 01:45; Stop 12/14/18 at 01:46; Status DC Mupirocin (Bactroban) 1 herber 1X ONCE TP Last administered on 12/14/18at 02:52; Start 12/14/18 at 02:30; Stop 12/14/18 at 02:31; Status DC Insulin Human Regular (HumuLIN R VIAL) 10 unit 1X ONCE IV ; Start 12/14/18 at 03:30; Stop 12/14/18 at 03:35; Status DC Ondansetron HCl (Zofran) 4 mg PRN Q8HRS PRN IV NAUSEA/VOMITING Last administered on 12/15/18at 00:08; Start 12/14/18 at 04:00; Stop 12/15/18 at 03:59; Status DC Fentanyl Citrate (Fentanyl 2ml Vial) 50 mcg PRN Q2HR PRN IV PAIN Last administered on 12/14/18at 09:00; Start 12/14/18 at 04:00; Stop 12/14/18 at 09:05; Status DC Insulin Human Lispro (HumaLOG) 0-5 UNITS TIDWMEALS SQ Last administered on 12/21/18at 08:32; Start 12/14/18 at 08:00 Dextrose (Dextrose 50%-Water Syringe) 12.5 gm PRN Q15MIN PRN IV SEE COMMENTS; Start 12/14/18 at 04:00 Dextrose 250 ml PRN Q15MIN PRN IV SEE COMMENTS; Start 12/14/18 at 04:00 Albuterol Sulfate (Ventolin Neb Soln) 2.5 mg PRN BID PRN INH SHORTNESS OF BREATH; Start 12/14/18 at 09:00 Alprazolam (Xanax) 0.5 mg PRN TID PRN PO ANXIETY / AGITATION; Start 12/14/18 at 09:00; Stop 12/15/18 at 09:03; Status DC Amlodipine Besylate (Norvasc) 10 mg DAILY PO Last administered on 12/20/18at 10:15; Start 12/14/18 at 09:00 Atorvastatin Calcium (Lipitor) 40 mg HS PO Last administered on 12/20/18at 20:00; Start 12/14/18 at 21:00 Carvedilol (Coreg) 6.25 mg BIDWMEALS PO Last administered on 12/20/18at 17:31; Start 12/14/18 at 09:00 Clonidine HCl (Catapres Tts-2) 1 patch WEEKLY TD Last administered on 12/21/18 09:47; Start 12/14/18 at 09:00 Vitamin B Complex/ Vitamin C (Pinky-Shreya) 1 tab DAILY PO Last administered on 12/21/18 09:43; Start 12/14/18 at 09:00 Acetaminophen/ Hydrocodone Bitart (Lortab 10/325) 1 tab PRN Q4HRS PRN PO MODERATE TO SEVERE PAIN Last administered on 12/15/18 08:05; Start 12/14/18 at 09:00; Stop 12/15/18 at 09:03; Status DC Latanoprost (Xalatan) 1 drop HS OU Last administered on 12/20/18 21:00; Start 12/14/18 at 21:00 Levothyroxine Sodium (Synthroid) 50 mcg DAILY06 PO Last administered on 12/21/18 06:08; Start 12/14/18 at 09:00 Lisinopril (Prinivil) 20 mg DAILY PO Last administered on 12/17/18 14:16; Start 12/14/18 at 09:00 Prochlorperazine Maleate (Compazine) 5 mg PRN TID PRN PO NAUSEA 2ND CHOICE Last administered on 12/21/18 09:43; Start 12/14/18 at 09:00 Sertraline HCl (Zoloft) 50 mg DAILY PO Last administered on 12/21/18 09:43; Start 12/14/18 at 09:00 Acetaminophen (Tylenol) 650 mg PRN Q6HRS PRN PO MILD PAIN / TEMP; Start 12/14/18 at 09:00 Cephalexin HCl (Keflex) 500 mg TID PO Last administered on 12/16/18 14:07; Start 12/14/18 at 09:00; Stop 12/16/18 at 15:12; Status DC Amylase/Lipase/ Protease (Zenpep 5,000) 1 cap TIDWMEALS PO Last administered on 12/21/18 09:38; Start 12/14/18 at 09:00 Famotidine (Pepcid) 20 mg QHS PO ; Start 12/14/18 at 21:00; Status Cancel Pantoprazole Sodium (Protonix) 40 mg DAILYAC PO Last administered on 9/27/19at 07:44; Start 12/14/18 at 09:00 Fentanyl Citrate (Fentanyl 2ml Vial) 75 mcg PRN Q2HR PRN IV PAIN Last administered on 12/14/18at 11:20; Start 12/14/18 at 09:15; Stop 12/15/18 at 09:03; Status DC Clopidogrel Bisulfate (Plavix) 75 mg DAILYWBKFT PO Last administered on 12/21/18at 09:38; Start 12/14/18 at 10:00 Sodium Chloride 1,000 ml @ 1,000 mls/hr Q1H PRN IV hypotension; Start 12/14/18 at 09:38; Stop 12/14/18 at 15:37; Status DC Acetaminophen (Tylenol) 500 mg 1X PRN PRN PO MILD PAIN / TEMP; Start 12/14/18 at 09:45; Stop 12/15/18 at 09:44; Status DC Diphenhydramine HCl (Benadryl) 25 mg 1X PRN PRN IV ITCHING; Start 12/14/18 at 09:45; Stop 12/15/18 at 09:44; Status DC Diphenhydramine HCl (Benadryl) 25 mg 1X PRN PRN IV ITCHING; Start 12/14/18 at 09:45; Stop 12/15/18 at 09:44; Status DC Sodium Chloride 1,000 ml @ 400 mls/hr Q2H30M PRN IV PATENCY; Start 12/14/18 at 09:38; Stop 12/14/18 at 21:37; Status DC Info (PHARMACY MONITORING -- do not chart) 1 each PRN DAILY PRN MC SEE COMMENTS; Start 12/14/18 at 09:45; Status Cancel Alprazolam (Xanax) 0.25 mg PRN DAILY PRN PO ANXIETY / AGITATION Last administered on 12/20/18at 10:16; Start 12/16/18 at 09:00 Fentanyl Citrate (Fentanyl 2ml Vial) 75 mcg PRN Q4HRS PRN IV PAIN Last administered on 12/16/18at 03:26; Start 12/15/18 at 09:15; Stop 12/16/18 at 1 0:26; Status DC Acetaminophen/ Hydrocodone Bitart (Lortab 10/325) 1 tab PRN Q6HRS PRN PO MODERATE TO SEVERE PAIN Last administered on 12/21/18 04:06; Start 12/15/18 at 09:15 Nicotine (Nicoderm Cq 21mg) 1 patch DAILY TD Last administered on 12/17/18at 14 :16; Start 12/15/18 at 12:00 Fentanyl (Duragesic 12mcg/ Hr Patch) 1 patch Q3DAYS TD Last administered on 12/21/18at 09:46; Start 12/15/18 at 12:15 Ondansetron HCl (Zofran Odt) 4 mg PRN Q6HRS PRN PO NAUSEA/VOMITING 1ST CHOICE Last administered on 12/18/18 20:03; Start 12/15/18 at 12:15 Fentanyl Citrate (Fentanyl 2ml Vial) 75 mcg PRN BID PRN IV SEVERE PAIN, 1st CHOICE Last administered on 12/20/18at 02:01; Start 12/16/18 at 14:00 Cephalexin HCl (Keflex) 250 mg BID PO Last administered on 12/18/18 20:03; Start 12/16/18 at 21:00; Stop 12/19/18 at 18:41; Status DC Sodium Chloride 1,000 ml @ 1,000 mls/hr Q1H PRN IV hypotension; Start 12/17/18 at 08:23; Stop 12/17/18 at 14:22; Status DC Acetaminophen (Tylenol) 500 mg 1X PRN PRN PO MILD PAIN / TEMP; Start 12/17/18 at 08:30; Stop 12/18/18 at 08:29; Status DC Diphenhydramine HCl (Benadryl) 25 mg 1X PRN PRN IV ITCHING; Start 12/17/18 at 08:30; Stop 12/18/18 at 08:29; Status DC Diphenhydramine HCl (Benadryl) 25 mg 1X PRN PRN IV ITCHING; Start 12/17/18 at 08:30; Stop 12/18/18 at 08:29; Status DC Sodium Chloride 1,000 ml @ 400 mls/hr Q2H30M PRN IV PATENCY; Start 12/17/18 at 08:23; Stop 12/17/18 at 20:22; Status DC Info (PHARMACY MONITORING -- do not chart) 1 each PRN DAILY PRN MC SEE COMMENTS; Start 12/17/18 at 08:30; Status Cancel Lactobacillus Rhamnosus (Culturelle) 1 cap BID PO Last administered on 12/21/18at 09:38; Start 12/17/18 at 21:00 Zolpidem Tartrate (Ambien) 5 mg PRN QHS PRN PO INSOMNIA, MAY REPEAT IN 1HR Last administered on 12/19/18at 21:35; Start 12/17/18 at 21:45 Darbepoetin Jarrett (ARANESP for DIALYSIS PTS) 60 mcg WEEKLYHS SQ ; Start 12/18/18 at 21:00 Sodium Chloride 1,000 ml @ 1,000 mls/hr Q1H PRN IV hypotension; Start 12/19/18 at 07:43; Stop 12/19/18 at 13:42; Status DC Acetaminophen (Tylenol) 500 mg 1X PRN PRN PO MILD PAIN / TEMP; Start 12/19/18 at 07:45; Stop 12/20/18 at 07:44; Status DC Diphenhydramine HCl (Benadryl) 25 mg 1X PRN PRN IV ITCHING; Start 12/19/18 at 07:45; Stop 12/20/18 at 07:44; Status DC Diphenhydramine HCl (Benadryl) 25 mg 1X PRN PRN IV ITCHING; Start 12/19/18 at 07:45; Stop 12/20/18 at 07:44; Status DC Sodium Chloride 1,000 ml @ 400 mls/hr Q2H30M PRN IV PATENCY; Start 12/19/18 at 07:43; Stop 12/19/18 at 19:42; Status DC Info (PHARMACY MONITORING -- do not chart) 1 each PRN DAILY PRN MC SEE COMMENTS; Start 12/19/18 at 07:45 Ondansetron HCl (Zofran) 4 mg 1X STAT IV Last administered on 12/19/18at 09:34; Start 12/19/18 at 09:25; Stop 12/19/18 at 09:29; Status DC Ondansetron HCl (Zofran) 4 mg 1X ONCE IV Last administered on 12/19/18at 10:18; Start 12/19/18 at 10:15; Stop 12/19/18 at 10:16; Status DC Ondansetron HCl (Zofran) 4 mg PRN Q6HRS PRN IV NAUSEA/VOMITING; Start 12/19/18 at 10:30; Stop 12/20/18 at 10:29; Status DC Fentanyl Citrate (Fentanyl 2ml Vial) 25 mcg PRN Q5MIN PRN IV MILD PAIN 1-3; Start 12/19/18 at 10:30; Stop 12/19/18 at 20:00; Status DC Fentanyl Citrate (Fentanyl 2ml Vial) 50 mcg PRN Q5MIN PRN IV MODERATE TO SEVERE PAIN Last administered on 12/19/18at 13:37; Start 12/19/18 at 10:30; Stop 12/19/18 at 20:00; Status DC Ringer's Solution 1,000 ml @ 30 mls/hr Q24H IV ; Start 12/19/18 at 10:18; Stop 12/19/18 at 12:23; Status DC Lidocaine HCl (Xylocaine-Mpf 1% 2ml Vial) 2 ml PRN 1X PRN ID PRIOR TO IV START; Start 12/19/18 at 10:30; Stop 12/19/18 at 20:00; Status DC Prochlorperazine Edisylate (Compazine) 5 mg PACU PRN PRN IV NAUSEA, MRX1 Last administered on 12/19/18at 12:57; Start 12/19/18 at 10:30; Stop 12/19/18 at 20:00; Status DC Cefazolin Sodium/ Dextrose 50 ml @ 100 mls/hr 1X ONCE IV Last administered on 12/19/18at 12:17; Start 12/19/18 at 12:00; Stop 12/19/18 at 12:29; Status DC Propofol 20 ml @ As Directed STK-MED ONCE IV ; Start 12/19/18 at 12:04; Stop 12/19/18 at 12:05; Status DC Dexamethasone Sodium Phosphate (Decadron) 4 mg STK-MED ONCE .ROUTE ; Start 12/19/18 at 12:04; Stop 12/19/18 at 12:05; Status DC Lidocaine HCl (Lidocaine Pf 2% Vial) 5 ml STK-MED ONCE .ROUTE ; Start 12/19/18 at 12:04; Stop 12/19/18 at 12:05; Status DC Ondansetron HCl (Zofran) 4 mg STK-MED ONCE .ROUTE ; Start 12/19/18 at 12:04; Stop 12/19/18 at 12:05; Status DC Insulin Human Lispro (HumaLOG VIAL for OP,RR ONLY) 0-10 units PRN Q1HR PRN SQ PER PROTOCOL; Start 12/19/18 at 12:15; Stop 12/20/18 at 12:14; Status DC Sodium Chloride 1,000 ml @ 30 mls/hr Q24H IV Last administered on 12/19/18at 12:10; Start 12/19/18 at 12:30 Fentanyl Citrate (Fentanyl 2ml Vial) 100 mcg STK-MED ONCE .ROUTE ; Start 12/19/18 at 12:36; Stop 12/19/18 at 12:36; Status DC Vancomycin HCl (Vanco Per Pharmacy) 1 each PRN DAILY PRN MC SEE COMMENTS Last administered on 12/20/18at 16:01; Start 12/19/18 at 13:00 Piperacillin Sod/ Tazobactam Sod (Zosyn Per Pharmacy) 1 each PRN DAILY PRN MC SEE COMMENTS; Start 12/19/18 at 13:00 Sevoflurane (Ultane) 30 ml STK-MED ONCE IH ; Start 12/19/18 at 12:49; Stop 12/19/18 at 12:49; Status DC Piperacillin Sod/ Tazobactam Sod 2.25 gm/Sodium Chloride 50 ml @ 100 mls/hr Q8HRS IV Last administered on 12/21/18at 06:09; Start 12/19/18 at 14:00 Vancomycin HCl 1.25 gm/Sodium Chloride 250 ml @ 167 mls/hr ONCE ONCE IV Last administered on 12/19/18at 14:51; Start 12/19/18 at 13:15; Stop 12/19/18 at 14:44; Status DC Vancomycin HCl (Vancomycin Random Level) 1 each 1X ONCE MC ; Start 12/21/18 at 06:00; Stop 12/21/18 at 06:02; Status DC Morphine Sulfate (Morphine Sulfate) 2 mg PRN Q2HR PRN IV SEVERE PAIN 7-10, 2nd CHOICE Last administered on 12/21/18at 10:26; Start 12/20/18 at 13:30 Diphenhydramine HCl (Benadryl) 25 mg PRN Q6HRS PRN PO ITCHING; Start 12/20/18 at 13:30 Morphine Sulfate (Morphine Sulfate) 2 mg PRN Q2HR PRN IV PAIN; Start 12/20/18 at 13:30; Status UNV Cefepime HCl (Maxipime) 1 gm Q24H IVP ; Start 12/21/18 at 10:00 Active Scripts Active Keflex (Cephalexin) 500 Mg Capsule 1 Cap PO TID Pinky-Shreya Tablet (Folic Acid/Vitamin B Comp W-C) 0.8 Mg Tablet 1 Tab PO DAILY Hydrocodone-Apap 10-325 (Hydrocodone Bit/Acetaminophen) 1 Tab Tablet 1 Tab PO PRN Q4HRS PRN [Darbepoetin Jarrett In Polysorbat] 60 MCG/0.3 ML Disp.syrin 60 Mcg SQ WEEKLYHS 30 Days Alprazolam 0.5 Mg Tablet 0.5 Mg PO PRN TID PRN MDD 1 Tylenol (Acetaminophen) 325 Mg Capsule 650 Mg PO Q6-8HRS PRN Zantac (Ranitidine Hcl) 300 Mg Tablet 1 Tab PO QHS Compazine (Prochlorperazine Maleate) 5 Mg Tablet 5 Mg PO PRN TID PRN 10 Days [Pantoprazole] 40 MG Tablet.dr 40 Mg PO DAILYAC 30 Days Reported Zoloft (Sertraline Hcl) 50 Mg Tablet 50 Mg PO DAILY Lisinopril 20 Mg Tablet 20 Mg PO DAILY Coreg (Carvedilol) 6.25 Mg Tablet 6.25 Mg PO BIDWMEALS Creon 6,000 Units Capsule (Lipase/Protease/Amylase) 1 Each Capsule.dr 1 Tab PO TID Proair Hfa (Albuterol Sulfate) 8.5 Gm Hfa.aer.ad 2 Puff INH BID PRN Levothyroxine Sodium 50 Mcg Tablet 1 Tab PO DAILY Clonidine Tts-2 (Clonidine) 1 Each Patch.tdwk 1 Patch TD WEEKLY Amlodipine Besylate 5 Mg Tablet 10 Mg PO DAILY Atorvastatin Calcium 40 Mg Tablet 40 Mg PO HS Latanoprost 2.5 Ml Drops 1 Drop EACHEYE HS Vitals/I & O Vital Sign - Last 24 Hours 12/20/18 12/20/18 12/20/18 12/20/18 13:45 14:15 15:00 15:44 Temp 98.4 98.4 Pulse 87 Resp 20 20 19 26 B/P (MAP) 152/42 (78) Pulse Ox 96 O2 Delivery Room Air Room Air Room Air Room Air 12/20/18 12/20/18 12/20/18 12/20/18 15:45 16:15 16:44 17:31 Pulse 98 Resp 26 18 18 B/P (MAP) 163/83 O2 Delivery Room Air Room Air Room Air 12/20/18 12/20/18 12/20/18 12/20/18 17:55 18:25 19:00 20:00 Temp 98.5 98.5 Pulse 88 Resp 28 28 17 B/P (MAP) 176/56 (96) Pulse Ox 98 O2 Delivery Room Air Room Air Room Air Room Air 12/20/18 12/20/18 12/20/18 12/20/18 20:00 20:30 21:57 21:58 O2 Delivery Room Air Room Air Room Air Room Air 12/20/18 12/20/18 12/20/18 12/20/18 22:28 22:57 23:00 23:59 Temp 98.1 98.1 Pulse 74 Resp 17 B/P (MAP) 165/55 (91) Pulse Ox 96 O2 Delivery Room Air Room Air Room Air Room Air 12/21/18 12/21/18 12/21/18 12/21/18 00:29 02:10 02:40 03:00 Temp 98.0 98.0 Pulse 76 Resp 17 B/P (MAP) 172/59 (96) Pulse Ox 99 O2 Delivery Room Air Room Air Room Air Room Air 12/21/18 12/21/18 12/21/18 12/21/18 04:06 04:06 04:36 05:08 O2 Delivery Nasal Cannula Room Air Room Air Room Air 12/21/18 12/21/18 12/21/18 12/21/18 06:09 06:45 07:00 07:45 Temp 98.3 98.3 Pulse 88 Resp 20 18 20 B/P (MAP) 198/70 (112) Pulse Ox 93 O2 Delivery Room Air Room Air Room Air Room Air 12/21/18 12/21/18 12/21/18 12/21/18 08:00 08:15 09:46 10:26 Pulse 88 Resp 18 20 20 B/P (MAP) 198/70 O2 Delivery Room Air Room Air Room Air Intake and Output 12/20/18 12/20/18 12/21/18 15:00 23:00 07:00 Intake Total 800 ml 160 ml Output Total 0 ml Balance 0 ml 800 ml 160 ml PRABHAKAR MOSQUERA MD Dec 21, 2018 11:21
--- NOTE | 2018-12-21 11:40 | PDOC ---
Renal-Progress Notes Subjective Notes Notes NOTHING NEW History of Present Illness Hx of present illness NO CHANGE Vitals Vitals Vital Signs Date Time Temp Pulse Resp B/P (MAP) Pulse Ox O2 Delivery O2 Flow Rate FiO2 12/21/18 10:26 20 Room Air 12/21/18 08:00 88 198/70 12/21/18 07:00 98.3 93 98.3 12/20/18 09:04 2.0 Weight Weight [ ] I.O. Intake and Output Intake and Output 12/21/18 07:00 Intake Total 960 ml Output Total 0 ml Balance 960 ml Intake Oral 960 ml Output Urine Total 0 ml # Voids 2 # Bowel Movements 3 Labs Labs Laboratory Tests Test 12/20/18 12:05 12/20/18 17:28 12/21/18 07:55 Glucose (Fingerstick) 250 mg/dL (70-99) 204 mg/dL (70-99) 174 mg/dL (70-99) Micro Micro Microbiology 12/14/18 Blood Culture - Final, Complete NO GROWTH AFTER 5 DAYS Review of Systems Constitutional: yes: alert, oriented Ears/Nose/Throat: Yes: no symptom reported Eyes: Yes: no symptom reported Pulmonary: Yes no symptom reported Cardiovascular: Yes no symptom reported Gastrointestional: Yes: no symptom reported Genitourinary: Yes: no symptom reported Musculoskeletal: Yes: no symptom reported Skin: Yes no symptom reported Psychiatric/Neurological: Yes: no symptom reported Endocrine: Yes: no symptom reported Hematologic/Lymphatic: Yes: no symptom reported Physical Exam General Appearance: no apparent distress Respiratory: bilateral CTA Heart: S1S2 Abdomen: soft, bowel sounds present Extremities: pulses present Neurology: alert, oriented Assessment Assessment IMP ESRD ANEMIA HTN PAD STUMP PAIN S/P BKA RECENTLY NON COMPLIANCE PLAN HD TODAY UF TO DW WOUND CARE ARANESP ENC COMPLIANCE PALLIATIVE CARE BENY PAINTER MD Dec 21, 2018 11:40
[2018-12-21 12:39] LABS: BASO # 0.2 x10^3/uL (0.0-0.2); BASO % 1 % (0-3); EOS # 0.2 x10^3/uL (0.0-0.7); EOS % 1 % (0-3); HEMATOCRIT 24.9 % (36.0-47.0); HEMOGLOBIN 8.4 g/dL (12.0-15.5); LYMPH # 1.9 x10^3/uL (1.0-4.8); LYMPH % 14 % (24-48); MEAN CORPUSCULAR HEMOGLOBIN 29 pg (25-35); MEAN CORPUSCULAR HGB CONC 34 g/dL (31-37); MEAN CORPUSCULAR VOLUME 88 fL (79-100); MONO # 1.2 x10^3/uL (0.0-1.1); MONO % 9 % (0-9); NEUT # 9.9 x10^3/uL (1.8-7.7); NEUT % 75 % (31-73); PLATELET COUNT 365 x10^3/uL (140-400); RED BLOOD COUNT 2.85 x10^6/uL (3.50-5.40); RED CELL DISTRIBUTION WIDTH 17.1 % (11.5-14.5); WHITE BLOOD COUNT 13.2 x10^3/uL (4.0-11.0)
[2018-12-21 12:51] LABS: ALBUMIN 2.4 g/dL (3.4-5.0); ALBUMIN/GLOBULIN RATIO 0.5 (1.0-1.7); CALCIUM 8.6 mg/dL (8.5-10.1); CREATININE 5.3 mg/dL (0.6-1.0); GFR 10.1; POTASSIUM 4.8 mmol/L (3.5-5.1); TOTAL BILIRUBIN 0.4 mg/dL (0.2-1.0); TOTAL PROTEIN 6.8 g/dL (6.4-8.2)
[2018-12-21] MEDS: VANCOMYCIN PER PHARMACY MC PRN (14:28)
--- NOTE | 2018-12-21 14:29 | NUR ---
Pharmacy Vancomycin Dosing Note S: Consulted to monitor and dose vancomycin started 12/19/18. O: OTTONIEL SMITH is a 58 year old F with Cellulitis, NECROTIC FOOT WOUND S/P AMPUTATION . Other Antibiotics: ZOSYN 12/19 - LABS: Last BUN: 47 Last Creatinine: 5.3 Creatinine Clearance: HD MWF mL/min Last WBC: 13.2 Tmax (past 24 hours): 98 Microbiology: 12/19: 12/14 BCX NG Last Random level: 2.1 on 12/21/18 at 1220 Last dose given 12/19/18 at 1500 A: Based on: 12/21 TROUGH WAS DRAWN AFTER DIALYSIS. VANCO 500mg IV MO,WE,FR ORDERED. P: 1. Continue Vancomycin 500 mg IV AFTER DIALYSIS MO,WE,FR 2. Follow up Random level in 5-7 days 3. Pharmacy will continue to monitor, follow and adjust therapy as needed. ROSIBEL VANESSA [facility], 12/21/18 [id number]
[2018-12-21] MEDS: CEFEPIME HCL IV Push 1 GM VIAL. IVP SCH (14:59)
[2018-12-21 16:00] VITALS: BP 199/65
[2018-12-21] MEDS: VANCOMYCIN 500 MG in IV NORMAL SALINE 100ML 100 ML IV SCH (16:00)
[2018-12-21] MEDS: amLODIPine BESYLATE 10 MG TABLET PO SCH (16:36)
[2018-12-21] MEDS: LISINOPRIL 20 MG TABLET PO SCH (16:37)
--- NOTE | 2018-12-21 16:39 | NUR ---
[facility] following pt. SW phoned and faxed HH referral to various HH agencies. All declined except [facility]. [facility] , phone: [phone], fax: [phone], has agreed to provide HH services. Clinicals faxed to [facility], phone: [phone], fax: [phone] and they are able to do IV abx with HD. Orders will need to be faxed prior dc. Discussed with pt and pt's daughter via phone. Encouraged them to Set up appointment with a PCP in the community. Wound Care will need to apply for home wound vac. They are going to attempt to place wound vac today. Anticipate dc on Monday. Pt agreeable with plan. Discussed with RN and Physician.
--- NOTE | 2018-12-21 16:43 | NUR ---
Patient return from dialysis per bed at 1600. Medications given and wound care here to see patient. Layne MCKENZIE gave Zosyn in diaysis, but vanco ordered too late to be given and patient IV access LEJ too positional to give IV antibiotics. D/W Dr. Schuster this morning and was to order medications with dialysis. Paging Dr. Schuster. See emar.
[2018-12-21] MEDS ORDERED: DIALYSIS PATIENT. MC PRN ×2 (17:00)
[2018-12-21] MEDS: fentaNYL PF VIAL 100 MCG/2 ML VIAL IV PRN (17:00)
--- NOTE | 2018-12-21 17:07 | NUR ---
Wound Care Wound care consult for left foot open amp site of 4th and 5th toes. Removed dressing and applied wound vac with davila foam at 125 mmHg continuous pressure. Pt refused to have saline sprayed on wound prior to application as it causes wound to burn. Pt able to tolerate vac application and is agreeable to having a home vac when she leaves. Vac application will be placed today for Monday. WC will return Monday for vac dressing change.
[2018-12-21 19:00] VITALS: BP 168/60
[2018-12-21] MEDS: ATORVASTATIN CALCIUM 40 MG TABLET. PO SCH (22:42)
[2018-12-21] MEDS: LATANOPROST 0.005% OPHTH SOLUTION 2.5ML BOTTLE. OU SCH (22:44)
[2018-12-21] MEDS: ZOLPIDEM 5 MG TABLET. PO PRN (22:59)
[2018-12-21 23:00] VITALS: BP 155/52
[2018-12-22] MEDS: ZOLPIDEM 5 MG TABLET. PO PRN
[2018-12-22] MEDS: MORPHINE SULFATE 2 MG/ML VIAL. IV PRN ×10 (00:43→23:21)
[2018-12-22 03:00] VITALS: BP 139/61
[2018-12-22] MEDS: HYDROcodone/APAP 10/325 1 TAB TABLET PO PRN ×2 (04:55→20:48)
[2018-12-22] MEDS: LEVOTHYROXINE 50 MCG TABLET PO SCH (06:01)
[2018-12-22] MEDS: PIPERACILLIN/TAZOBACTAM 2.25 GM in IV NORMAL SALINE 50ML 50 ML IV SCH ×2 (06:01→13:56)
[2018-12-22 07:00] VITALS: BP 118/30
[2018-12-22] MEDS: PANTOPRAZOLE 40 MG TABLET.DR. PO SCH (07:30)
[2018-12-22] MEDS: INSULIN LISPRO 300 UNITS/3 ML VIAL. SQ SCH ×3 (08:00→17:00)
--- NOTE | 2018-12-22 11:11 | PDOC ---
PROGRESS NOTES Chief Complaint Chief Complaint impression s/p left 4th toe amputation s/p 5th left toe revision s/p RT BKA, HTN urgency - resolved ESRD -on HD anemai of ESRD Hypothyroidism - on replacement therapy Left 5th digit amputation - Dyslipidemia on meds PAD - Diffuse moderate to advanced atherosclerotic plaque in the lower activity arteries with moderate stenosis in the mid SFA, mild to moderate stenosis in the popliteal artery. Nonvisualization of flow in the distal [employer] suggests occlusion, age indeterminate. Anxiety, depression sec to med illness mod to severe pcm 27 min pt exam, chart review, > 50% of time spent with exam, chart review, pt care coordination History of Present Illness History of Present Illness Asks me if i were "kicking her out" Cleared by vasc sx to dc ID has her on IV vanc and zosyn Afebrile, non toxic appearing Dw case mx and SW and RN -slated for home (maybe with ), she left A[facility] from [facility] PLAN: Keep, still on iV abx DNR Keep current MAR Vitals Vitals Vital Signs Date Time Temp Pulse Resp B/P (MAP) Pulse Ox O2 Delivery O2 Flow Rate FiO2 12/22/18 08:59 Room Air 12/22/18 07:00 18 118/30 (59) 12/22/18 06:31 92 2.0 12/22/18 03:00 97.1 82 97.1 Physical Exam Physical Exam GENERAL: Alert, oriented female, not in distress. VITAL SIGNS: Stable, afebrile. HEENT: NAD. NECK: Supple, no JVP, no lymphadenopathy. LUNGS: Clear. HEART: S1, S2 regular. ABDOMEN: Benign. EXTREMITIES: Right [id number] amputation stump looks great. Left post-surgical dressing was not open. SKIN: Rest of the skin examination unremarkable. NEUROLOGIC: The patient is neurologically alert, awake and appropriate. No focal neurologic deficit. General: Alert, Oriented X3, Cooperative, mild distress Heart: Regular rate, Normal S1, Normal S2 Lungs: Clear Abdomen: Normal bowel sounds, Soft, No tenderness Extremities: No clubbing, No cyanosis, Normal pulses Skin: Other (bka stump, wound dressing, amputated toes) Labs LABS Laboratory Tests Test 12/21/18 12:09 12/21/18 12:20 12/21/18 17:30 12/21/18 21:15 Glucose (Fingerstick) 96 mg/dL (70-99) 132 mg/dL (70-99) 178 mg/dL (70-99) White Blood Count 13.2 x10^3/uL (4.0-11.0) Red Blood Count 2.85 x10^6/uL (3.50-5.40) Hemoglobin 8.4 g/dL (12.0-15.5) Hematocrit 24.9 % (36.0-47.0) Mean Corpuscular Volume 88 fL (79-100) Mean Corpuscular Hemoglobin 29 pg (25-35) Mean Corpuscular Hemoglobin Concent 34 g/dL (31-37) Red Cell Distribution Width 17.1 % (11.5-14.5) Platelet Count 365 x10^3/uL (140-400) Neutrophils (%) (Auto) 75 % (31-73) Lymphocytes (%) (Auto) 14 % (24-48) Monocytes (%) (Auto) 9 % (0-9) Eosinophils (%) (Auto) 1 % (0-3) Basophils (%) (Auto) 1 % (0-3) Neutrophils # (Auto) 9.9 x10^3/uL (1.8-7.7) Lymphocytes # (Auto) 1.9 x10^3/uL (1.0-4.8) Monocytes # (Auto) 1.2 x10^3/uL (0.0-1.1) Eosinophils # (Auto) 0.2 x10^3/uL (0.0-0.7) Basophils # (Auto) 0.2 x10^3/uL (0.0-0.2) Erythrocyte Sedimentation Rate 122 (0-25) Sodium Level 138 mmol/L (136-145) Potassium Level 4.8 mmol/L (3.5-5.1) Chloride Level 96 mmol/L (98-107) Carbon Dioxide Level 31 mmol/L (21-32) Anion Gap 11 (6-14) Blood Urea Nitrogen 47 mg/dL (7-20) Creatinine 5.3 mg/dL (0.6-1.0) Estimated GFR (Cockcroft-Gault) 10.1 BUN/Creatinine Ratio 9 (6-20) Glucose Level 109 mg/dL (70-99) Calcium Level 8.6 mg/dL (8.5-10.1) Total Bilirubin 0.4 mg/dL (0.2-1.0) Aspartate Amino Transf (AST/SGOT) 42 U/L (15-37) Alanine Aminotransferase (ALT/SGPT) 10 U/L (14-59) Alkaline Phosphatase 98 U/L (46-116) Total Protein 6.8 g/dL (6.4-8.2) Albumin 2.4 g/dL (3.4-5.0) Albumin/Globulin Ratio 0.5 (1.0-1.7) Random Vancomycin Level 2.1 mcg/mL Assessment and Plan Assessmemt and Plan Problems Medical Problems: (1) Anemia Status: Chronic (2) Diabetic peripheral neuropathy associated with type 2 diabetes mellitus Status: Chronic (3) ESRD on hemodialysis Status: Chronic (4) Fall Status: Acute (5) Hyperglycemia Status: Acute (6) Hyperkalemia Status: Acute (7) PAD (peripheral artery disease) Status: Chronic Comment Review of Relevant I have reviewed the following items pamela (where applicable) has been applied. Labs Laboratory Tests Test 12/20/18 12:05 12/20/18 17:28 12/21/18 07:55 12/21/18 12:09 Glucose (Fingerstick) 250 mg/dL (70-99) 204 mg/dL (70-99) 174 mg/dL (70-99) 96 mg/dL (70-99) Test 12/21/18 12:20 12/21/18 17:30 12/21/18 21:15 White Blood Count 13.2 x10^3/uL (4.0-11.0) Red Blood Count 2.85 x10^6/uL (3.50-5.40) Hemoglobin 8.4 g/dL (12.0-15.5) Hematocrit 24.9 % (36.0-47.0) Mean Corpuscular Volume 88 fL (79-100) Mean Corpuscular Hemoglobin 29 pg (25-35) Mean Corpuscular Hemoglobin Concent 34 g/dL (31-37) Red Cell Distribution Width 17.1 % (11.5-14.5) Platelet Count 365 x10^3/uL (140-400) Neutrophils (%) (Auto) 75 % (31-73) Lymphocytes (%) (Auto) 14 % (24-48) Monocytes (%) (Auto) 9 % (0-9) Eosinophils (%) (Auto) 1 % (0-3) Basophils (%) (Auto) 1 % (0-3) Neutrophils # (Auto) 9.9 x10^3/uL (1.8-7.7) Lymphocytes # (Auto) 1.9 x10^3/uL (1.0-4.8) Monocytes # (Auto) 1.2 x10^3/uL (0.0-1.1) Eosinophils # (Auto) 0.2 x10^3/uL (0.0-0.7) Basophils # (Auto) 0.2 x10^3/uL (0.0-0.2) Erythrocyte Sedimentation Rate 122 (0-25) Sodium Level 138 mmol/L (136-145) Potassium Level 4.8 mmol/L (3.5-5.1) Chloride Level 96 mmol/L (98-107) Carbon Dioxide Level 31 mmol/L (21-32) Anion Gap 11 (6-14) Blood Urea Nitrogen 47 mg/dL (7-20) Creatinine 5.3 mg/dL (0.6-1.0) Estimated GFR (Cockcroft-Gault) 10.1 BUN/Creatinine Ratio 9 (6-20) Glucose Level 109 mg/dL (70-99) Calcium Level 8.6 mg/dL (8.5-10.1) Total Bilirubin 0.4 mg/dL (0.2-1.0) Aspartate Amino Transf (AST/SGOT) 42 U/L (15-37) Alanine Aminotransferase (ALT/SGPT) 10 U/L (14-59) Alkaline Phosphatase 98 U/L (46-116) Total Protein 6.8 g/dL (6.4-8.2) Albumin 2.4 g/dL (3.4-5.0) Albumin/Globulin Ratio 0.5 (1.0-1.7) Random Vancomycin Level 2.1 mcg/mL Glucose (Fingerstick) 132 mg/dL (70-99) 178 mg/dL (70-99) Laboratory Tests Test 12/21/18 12:09 12/21/18 12:20 12/21/18 17:30 12/21/18 21:15 Glucose (Fingerstick) 96 mg/dL (70-99) 132 mg/dL (70-99) 178 mg/dL (70-99) White Blood Count 13.2 x10^3/uL (4.0-11.0) Red Blood Count 2.85 x10^6/uL (3.50-5.40) Hemoglobin 8.4 g/dL (12.0-15.5) Hematocrit 24.9 % (36.0-47.0) Mean Corpuscular Volume 88 fL (79-100) Mean Corpuscular Hemoglobin 29 pg (25-35) Mean Corpuscular Hemoglobin Concent 34 g/dL (31-37) Red Cell Distribution Width 17.1 % (11.5-14.5) Platelet Count 365 x10^3/uL (140-400) Neutrophils (%) (Auto) 75 % (31-73) Lymphocytes (%) (Auto) 14 % (24-48) Monocytes (%) (Auto) 9 % (0-9) Eosinophils (%) (Auto) 1 % (0-3) Basophils (%) (Auto) 1 % (0-3) Neutrophils # (Auto) 9.9 x10^3/uL (1.8-7.7) Lymphocytes # (Auto) 1.9 x10^3/uL (1.0-4.8) Monocytes # (Auto) 1.2 x10^3/uL (0.0-1.1) Eosinophils # (Auto) 0.2 x10^3/uL (0.0-0.7) Basophils # (Auto) 0.2 x10^3/uL (0.0-0.2) Erythrocyte Sedimentation Rate 122 (0-25) Sodium Level 138 mmol/L (136-145) Potassium Level 4.8 mmol/L (3.5-5.1) Chloride Level 96 mmol/L (98-107) Carbon Dioxide Level 31 mmol/L (21-32) Anion Gap 11 (6-14) Blood Urea Nitrogen 47 mg/dL (7-20) Creatinine 5.3 mg/dL (0.6-1.0) Estimated GFR (Cockcroft-Gault) 10.1 BUN/Creatinine Ratio 9 (6-20) Glucose Level 109 mg/dL (70-99) Calcium Level 8.6 mg/dL (8.5-10.1) Total Bilirubin 0.4 mg/dL (0.2-1.0) Aspartate Amino Transf (AST/SGOT) 42 U/L (15-37) Alanine Aminotransferase (ALT/SGPT) 10 U/L (14-59) Alkaline Phosphatase 98 U/L (46-116) Total Protein 6.8 g/dL (6.4-8.2) Albumin 2.4 g/dL (3.4-5.0) Albumin/Globulin Ratio 0.5 (1.0-1.7) Random Vancomycin Level 2.1 mcg/mL Microbiology 12/14/18 Blood Culture - Final, Complete NO GROWTH AFTER 5 DAYS Medications Current Medications Fentanyl Citrate (Fentanyl 2ml Vial) 50 mcg 1X ONCE IV Last administered on 12/14/18at 02:52; Start 12/14/18 at 01:30; Stop 12/14/18 at 01:32; Status DC Ondansetron HCl (Zofran) 4 mg 1X ONCE IV Last administered on 12/14/18at 02:52; Start 12/14/18 at 01:30; Stop 12/14/18 at 01:32; Status DC Famotidine (Pepcid Vial) 20 mg 1X ONCE IVP Last administered on 12/14/18at 02:52; Start 12/14/18 at 01:30; Stop 12/14/18 at 01:32; Status DC Mupirocin (Bactroban) 1 herber 1X ONCE TP Last administered on 12/14/18at 02:52; Start 12/14/18 at 01:45; Stop 12/14/18 at 01:46; Status DC Mupirocin (Bactroban) 1 herber 1X ONCE TP Last administered on 12/14/18at 02:52; Start 12/14/18 at 02:30; Stop 12/14/18 at 02:31; Status DC Insulin Human Regular (HumuLIN R VIAL) 10 unit 1X ONCE IV ; Start 12/14/18 at 03:30; Stop 12/14/18 at 03:35; Status DC Ondansetron HCl (Zofran) 4 mg PRN Q8HRS PRN IV NAUSEA/VOMITING Last administered on 12/15/18at 00:08; Start 12/14/18 at 04:00; Stop 12/15/18 at 03:59; Status DC Fentanyl Citrate (Fentanyl 2ml Vial) 50 mcg PRN Q2HR PRN IV PAIN Last administered on 12/14/18 09:00; Start 12/14/18 at 04:00; Stop 12/14/18 at 09:05; Status DC Insulin Human Lispro (HumaLOG) 0-5 UNITS TIDWMEALS SQ Last administered on 12/21/18at 08:32; Start 12/14/18 at 08:00 Dextrose (Dextrose 50%-Water Syringe) 12.5 gm PRN Q15MIN PRN IV SEE COMMENTS; Start 12/14/18 at 04:00 Dextrose 250 ml PRN Q15MIN PRN IV SEE COMMENTS; Start 12/14/18 at 04:00; Stop 12/21/18 at 11:24; Status DC Albuterol Sulfate (Ventolin Neb Soln) 2.5 mg PRN BID PRN INH SHORTNESS OF BREATH; Start 12/14/18 at 09:00 Alprazolam (Xanax) 0.5 mg PRN TID PRN PO ANXIETY / AGITATION; Start 12/14/18 at 09:00; Stop 12/15/18 at 09:03; Status DC Amlodipine Besylate (Norvasc) 10 mg DAILY PO Last administered on 12/21/18 16: 36; Start 12/14/18 at 09:00 Atorvastatin Calcium (Lipitor) 40 mg HS PO Last administered on 12/21/18at 22:42; Start 12/14/18 at 21:00 Carvedilol (Coreg) 6.25 mg BIDWMEALS PO Last administered on 12/21/18 16:36; Start 12/14/18 at 09:00 Clonidine HCl (Catapres Tts-2) 1 patch WEEKLY TD Last administered on 12/21/18 09:47; Start 12/14/18 at 09:00 Vitamin B Complex/ Vitamin C (Pinky-Shreya) 1 tab DAILY PO Last administered on 12/21/18 09:43; Start 12/14/18 at 09:00 Acetaminophen/ Hydrocodone Bitart (Lortab 10/325) 1 tab PRN Q4HRS PRN PO MODERATE TO SEVERE PAIN Last administered on 12/15/18at 08:05; Start 12/14/18 at 09:00; Stop 12/15/18 at 09:03; Status DC Latanoprost (Xalatan) 1 drop HS OU Last administered on 12/21/18 22:44; Start 12/14/18 at 21:00 Levothyroxine Sodium (Synthroid) 50 mcg DAILY06 PO Last administered on 12/22/18 06:01; Start 12/14/18 at 09:00 Lisinopril (Prinivil) 20 mg DAILY PO Last administered on 12/21/18 16:37; Start 12/14/18 at 09:00 Prochlorperazine Maleate (Compazine) 5 mg PRN TID PRN PO NAUSEA 2ND CHOICE Last administered on 12/21/18 09:43; Start 12/14/18 at 09:00 Sertraline HCl (Zoloft) 50 mg DAILY PO Last administered on 12/21/18 09:43; Start 12/14/18 at 09:00 Acetaminophen (Tylenol) 650 mg PRN Q6HRS PRN PO MILD PAIN / TEMP; Start 12/14/18 at 09:00 Cephalexin HCl (Keflex) 500 mg TID PO Last administered on 12/16/18 14:07; Start 12/14/18 at 09:00; Stop 12/16/18 at 15:12; Status DC Amylase/Lipase/ Protease (Zenpep 5,000) 1 cap TIDWMEALS PO Last administered on 12/21/18 16:35; Start 12/14/18 at 09:00 Famotidine (Pepcid) 20 mg QHS PO ; Start 12/14/18 at 21:00; Status Cancel Pantoprazole Sodium (Protonix) 40 mg DAILYAC PO Last administered on 12/21/18 07:44; Start 12/14/18 at 09:00 Fentanyl Citrate (Fentanyl 2ml Vial) 75 mcg PRN Q2HR PRN IV PAIN Last administered on 12/14/18 11:20; Start 12/14/18 at 09:15; Stop 12/15/18 at 09:03; Status DC Clopidogrel Bisulfate (Plavix) 75 mg DAILYWBKFT PO Last administered on 12/21/18 09:38; Start 12/14/18 at 10:00 Sodium Chloride 1,000 ml @ 1,000 mls/hr Q1H PRN IV hypotension; Start 12/14/18 at 09:38; Stop 12/14/18 at 15:37; Status DC Acetaminophen (Tylenol) 500 mg 1X PRN PRN PO MILD PAIN / TEMP; Start 12/14/18 at 09:45; Stop 12/15/18 at 09:44; Status DC Diphenhydramine HCl (Benadryl) 25 mg 1X PRN PRN IV ITCHING; Start 12/14/18 at 09:45; Stop 12/15/18 at 09:44; Status DC Diphenhydramine HCl (Benadryl) 25 mg 1X PRN PRN IV ITCHING; Start 12/14/18 at 09:45; Stop 12/15/18 at 09:44; Status DC Sodium Chloride 1,000 ml @ 400 mls/hr Q2H30M PRN IV PATENCY; Start 12/14/18 at 09:38; Stop 12/14/18 at 21:37; Status DC Info (PHARMACY MONITORING -- do not chart) 1 each PRN DAILY PRN MC SEE COMMENTS; Start 12/14/18 at 09:45; Status Cancel Alprazolam (Xanax) 0.25 mg PRN DAILY PRN PO ANXIETY / AGITATION Last administered on 12/20/18at 10:16; Start 12/16/18 at 09:00 Fentanyl Citrate (Fentanyl 2ml Vial) 75 mcg PRN Q4HRS PRN IV PAIN Last administered on 12/16/18at 03:26; Start 12/15/18 at 09:15; Stop 12/16/18 at 10:26; Status DC Acetaminophen/ Hydrocodone Bitart (Lortab 10/325) 1 tab PRN Q6HRS PRN PO MODERATE TO SEVERE PAIN Last administered on 12/22/18at 04:55; Start 12/15/18 at 09:15 Nicotine (Nicoderm Cq 21mg) 1 patch DAILY TD Last administered on 12/17/18at 14:16; Start 12/15/18 at 12:00 Fentanyl (Duragesic 12mcg/ Hr Patch) 1 patch Q3DAYS TD Last administered on 12/21/18at 09:46; Start 12/15/18 at 12:15 Ondansetron HCl (Zofran Odt) 4 mg PRN Q6HRS PRN PO NAUSEA/VOMITING 1ST CHOICE Last administered on 12/18/18at 20:03; Start 12/15/18 at 12:15 Fentanyl Citrate (Fentanyl 2ml Vial) 75 mcg PRN BID PRN IV SEVERE PAIN, 1st CHOICE Last administered on 12/21/18at 17:00; Start 12/16/18 at 14:00 Cephalexin HCl (Keflex) 250 mg BID PO Last administered on 12/18/18at 20:03; Start 12/16/18 at 21:00; Stop 12/19/18 at 18:41; Status DC Sodium Chloride 1,000 ml @ 1,000 mls/hr Q1H PRN IV hypotension; Start 12/17/18 at 08:23; Stop 12/17/18 at 14:22; Status DC Acetaminophen (Tylenol) 500 mg 1X PRN PRN PO MILD PAIN / TEMP; Start 12/17/18 at 08:30; Stop 12/18/18 at 08:29; Status DC Diphenhydramine HCl (Benadryl) 25 mg 1X PRN PRN IV ITCHING; Start 12/17/18 at 08:30; Stop 12/18/18 at 08:29; Status DC Diphenhydramine HCl (Benadryl) 25 mg 1X PRN PRN IV ITCHING; Start 12/17/18 at 08:30; Stop 12/18/18 at 08:29; Status DC Sodium Chloride 1,000 ml @ 400 mls/hr Q2H30M PRN IV PATENCY; Start 12/17/18 at 08:23; Stop 12/17/18 at 20:22; Status DC Info (PHARMACY MONITORING -- do not chart) 1 each PRN DAILY PRN MC SEE COMMENTS; Start 12/17/18 at 08:30; Status Cancel Lactobacillus Rhamnosus (Culturelle) 1 cap BID PO Last administered on 12/21/18at 22:42; Start 12/17/18 at 21:00 Zolpidem Tartrate (Ambien) 5 mg PRN QHS PRN PO INSOMNIA, MAY REPEAT IN 1HR Last administered on 12/22/18at 00:00; Start 12/17/18 at 21:45 Darbepoetin Jarrett (ARANESP for DIALYSIS PTS) 60 mcg WEEKLYHS SQ ; Start 12/18/18 at 21:00 Sodium Chloride 1,000 ml @ 1,000 mls/hr Q1H PRN IV hypotension; Start 12/19/18 at 07:43; Stop 12/19/18 at 13:42; Status DC Acetaminophen (Tylenol) 500 mg 1X PRN PRN PO MILD PAIN / TEMP; Start 12/19/18 at 07:45; Stop 12/20/18 at 07:44; Status DC Diphenhydramine HCl (Benadryl) 25 mg 1X PRN PRN IV ITCHING; Start 12/19/18 at 07:45; Stop 12/20/18 at 07:44; Status DC Diphenhydramine HCl (Benadryl) 25 mg 1X PRN PRN IV ITCHING; Start 12/19/18 at 07:45; Stop 12/20/18 at 07:44; Status DC Sodium Chloride 1,000 ml @ 400 mls/hr Q2H30M PRN IV PATENCY; Start 12/19/18 at 07:43; Stop 12/19/18 at 19:42; Status DC Info (PHARMACY MONITORING -- do not chart) 1 each PRN DAILY PRN MC CATY GOLDMAN NTS; Start 12/19/18 at 07:45 Ondansetron HCl (Zofran) 4 mg 1X STAT IV Last administered on 12/19/18at 09:34; Start 12/19/18 at 09:25; Stop 12/19/18 at 09:29; Status DC Ondansetron HCl (Zofran) 4 mg 1X ONCE IV Last administered on 12/19/18at 10:18; Start 12/19/18 at 10:15; Stop 12/19/18 at 10:16; Status DC Ondansetron HCl (Zofran) 4 mg PRN Q6HRS PRN IV NAUSEA/VOMITING; Start 12/19/18 at 10:30; Stop 12/20/18 at 10:29; Status DC Fentanyl Citrate (Fentanyl 2ml Vial) 25 mcg PRN Q5MIN PRN IV MILD PAIN 1-3; Start 12/19/18 at 10:30; Stop 12/19/18 at 20:00; Status DC Fentanyl Citrate (Fentanyl 2ml Vial) 50 mcg PRN Q5MIN PRN IV MODERATE TO SEVERE PAIN Last administered on 12/19/18at 13:37; Start 12/19/18 at 10:30; Stop 12/19/18 at 20:00; Status DC Ringer's Solution 1,000 ml @ 30 mls/hr Q24H IV ; Start 12/19/18 at 10:18; Stop 12/19/18 at 12:23; Status DC Lidocaine HCl (Xylocaine-Mpf 1% 2ml Vial) 2 ml PRN 1X PRN ID PRIOR TO IV START; Start 12/19/18 at 10:30; Stop 12/19/18 at 20:00; Status DC Prochlorperazine Edisylate (Compazine) 5 mg PACU PRN PRN IV NAUSEA, MRX1 Last administered on 12/19/18at 12:57; Start 12/19/18 at 10:30; Stop 12/19/18 at 20:00; Status DC Cefazolin Sodium/ Dextrose 50 ml @ 100 mls/hr 1X ONCE IV Last administered on 12/19/18at 12:17; Start 12/19/18 at 12:00; Stop 12/19/18 at 12:29; Status DC Propofol 20 ml @ As Directed STK-MED ONCE IV ; Start 12/19/18 at 12:04; Stop 12/19/18 at 12:05; Status DC Dexamethasone Sodium Phosphate (Decadron) 4 mg STK-MED ONCE .ROUTE ; Start 12/19/18 at 12:04; Stop 12/19/18 at 12:05; Status DC Lidocaine HCl (Lidocaine Pf 2% Vial) 5 ml STK-MED ONCE .ROUTE ; Start 12/19/18 at 12:04; Stop 12/19/18 at 12:05; Status DC Ondansetron HCl (Zofran) 4 mg STK-MED ONCE .ROUTE ; Start 12/19/18 at 12:04; Stop 12/19/18 at 12:05; Status DC Insulin Human Lispro (HumaLOG VIAL for OP,RR ONLY) 0-10 units PRN Q1HR PRN SQ PER PROTOCOL; Start 12/19/18 at 12:15; Stop 12/20/18 at 12:14; Status DC Sodium Chloride 1,000 ml @ 30 mls/hr Q24H IV Last administered on 12/19/18at 12:10; Start 12/19/18 at 12:30 Fentanyl Citrate (Fentanyl 2ml Vial) 100 mcg STK-MED ONCE .ROUTE ; Start 12/19/18 at 12:36; Stop 12/19/18 at 12:36; Status DC Vancomycin HCl (Vanco Per Pharmacy) 1 each PRN DAILY PRN MC SEE COMMENTS Last administered on 12/21/18at 14:28; Start 12/19/18 at 13:00 Piperacillin Sod/ Tazobactam Sod (Zosyn Per Pharmacy) 1 each PRN DAILY PRN MC SEE COMMENTS; Start 12/19/18 at 13:00 Sevoflurane (Ultane) 30 ml STK-MED ONCE IH ; Start 12/19/18 at 12:49; Stop 12/19/18 at 12:49; Status DC Piperacillin Sod/ Tazobactam Sod 2.25 gm/Sodium Chloride 50 ml @ 100 mls/hr Q8HRS IV Last administered on 12/22/18at 06:01; Start 12/19/18 at 14:00 Vancomycin HCl 1.25 gm/Sodium Chloride 250 ml @ 167 mls/hr ONCE ONCE IV Last administered on 12/19/18at 14:51; Start 12/19/18 at 13:15; Stop 12/19/18 at 14:44; Status DC Vancomycin HCl (Vancomycin Random Level) 1 each 1X ONCE MC ; Start 12/21/18 at 06:00; Stop 12/21/18 at 06:02; Status DC Morphine Sulfate (Morphine Sulfate) 2 mg PRN Q2HR PRN IV SEVERE PAIN 7-10, 2nd CHOICE Last administered on 12/22/18at 08:59; Start 12/20/18 at 13:30 Diphenhydramine HCl (Benadryl) 25 mg PRN Q6HRS PRN PO ITCHING Last administered on 12/21/18at 16:59; Start 12/20/18 at 13:30 Morphine Sulfate (Morphine Sulfate) 2 mg PRN Q2HR PRN IV PAIN; Start 12/20/18 at 13:30; Status UNV Cefepime HCl (Maxipime) 1 gm Q24H IVP Last administered on 12/21/18at 14:59; St art 12/21/18 at 10:00 Vancomycin HCl 500 mg/Sodium Chloride 100 ml @ 100 mls/hr QMWF IV ; Start 12/21/18 at 16:00 Sodium Chloride 1,000 ml @ 1,000 mls/hr Q1H PRN IV hypotension; Start 12/21/18 at 11:00; Stop 12/21/18 at 16:59; Status DC Sodium Chloride 1,000 ml @ 400 mls/hr Q2H30M PRN IV PATENCY; Start 12/21/18 at 11:00; Stop 12/21/18 at 22:59; Status DC Info (PHARMACY MONITORING -- do not chart) 1 each PRN DAILY PRN MC SEE COMMENTS; Start 12/21/18 at 17:00; Status UNV Info (PHARMACY MONITORING -- do not chart) 1 each PRN DAILY PRN MC SEE COMMENTS; Start 12/21/18 at 17:00; Status UNV Active Scripts Active Keflex (Cephalexin) 500 Mg Capsule 1 Cap PO TID Pinky-Shreya Tablet (Folic Acid/Vitamin B Comp W-C) 0.8 Mg Tablet 1 Tab PO DAILY Hydrocodone-Apap 10-325 (Hydrocodone Bit/Acetaminophen) 1 Tab Tablet 1 Tab PO PRN Q4HRS PRN [Darbepoetin Jarrett In Polysorbat] 60 MCG/0.3 ML Disp.syrin 60 Mcg SQ WEEKLYHS 30 Days Alprazolam 0.5 Mg Tablet 0.5 Mg PO PRN TID PRN MDD 1 Tylenol (Acetaminophen) 325 Mg Capsule 650 Mg PO Q6-8HRS PRN Zantac (Ranitidine Hcl) 300 Mg Tablet 1 Tab PO QHS Compazine (Prochlorperazine Maleate) 5 Mg Tablet 5 Mg PO PRN TID PRN 10 Days [Pantoprazole] 40 MG Tablet. 40 Mg PO DAILYAC 30 Days Reported Zoloft (Sertraline Hcl) 50 Mg Tablet 50 Mg PO DAILY Lisinopril 20 Mg Tablet 20 Mg PO DAILY Coreg (Carvedilol) 6.25 Mg Tablet 6.25 Mg PO BIDWMEALS Creon 6,000 Units Capsule (Lipase/Protease/Amylase) 1 Each Capsule. 1 Tab PO TID Proair Hfa (Albuterol Sulfate) 8.5 Gm Hfa.aer.ad 2 Puff INH BID PRN Levothyroxine Sodium 50 Mcg Tablet 1 Tab PO DAILY Clonidine Tts-2 (Clonidine) 1 Each Patch.tdwk 1 Patch TD WEEKLY Amlodipine Besylate 5 Mg Tablet 10 Mg PO DAILY Atorvastatin Calcium 40 Mg Tablet 40 Mg PO HS Latanoprost 2.5 Ml Drops 1 Drop EACHEYE HS Vitals/I & O Vital Sign - Last 24 Hours 12/21/18 12/21/18 12/21/18 12/21/18 12:35 12:36 13:05 13:36 Resp 18 18 18 O2 Delivery Room Air Room Air off unit 12/21/18 12/21/18 12/21/18 12/21/18 15:18 16:00 16:36 16:36 Temp 97.9 97.9 Pulse 93 93 93 Resp 20 16 B/P (MAP) 199/65 (109) 199/65 199/65 Pulse Ox 95 O2 Delivery Room Air Room Air 12/21/18 12/21/18 12/21/18 12/21/18 16:37 16:38 17:00 17:08 Pulse 93 Resp 18 18 18 B/P (MAP) 199/65 O2 Delivery Room Air Room Air Room Air 12/21/18 12/21/18 12/21/18 12/21/18 17:30 19:00 20:00 20:00 Temp 99.8 99.8 Pulse 89 Resp 18 18 B/P (MAP) 168/60 (96) Pulse Ox 97 95 O2 Delivery Room Air Room Air Room Air Room Air O2 Flow Rate 2.0 12/21/18 12/21/18 12/21/18 12/21/18 20:30 22:42 23:00 23:12 Temp 99.1 99.1 Pulse 84 Resp 18 B/P (MAP) 155/52 (86) Pulse Ox 95 95 96 95 O2 Delivery Room Air Room Air Room Air Room Air O2 Flow Rate 2.0 2.0 2.0 12/22/18 12/22/18 12/22/18 12/22/18 00:43 01:11 02:48 03:00 Temp 97.1 97.1 Pulse 82 Resp 18 B/P (MAP) 139/61 (87) Pulse Ox 95 95 95 92 O2 Delivery Room Air Room Air Room Air Room Air O2 Flow Rate 2.0 2.0 2.0 12/22/18 12/22/18 12/22/18 12/22/18 03:18 04:55 05:55 06:01 Pulse Ox 92 92 92 92 O2 Delivery Room Air Room Air Room Air Room Air O2 Flow Rate 2.0 2.0 2.0 2.0 12/22/18 12/22/18 12/22/18 06:31 07:00 08:59 Resp 18 B/P (MAP) 118/30 (59) Pulse Ox 92 O2 Delivery Room Air Room Air Room Air O2 Flow Rate 2.0 Intake and Output 12/21/18 12/21/18 12/22/18 15:00 23:00 07:00 Intake Total 0 ml 0 ml Output Total 0 ml Balance 0 ml 0 ml SANGEETHA MUELLER MD Dec 22, 2018 11:11
[2018-12-22] MEDS: CEFEPIME HCL IV Push 1 GM VIAL. IVP SCH (11:15)
[2018-12-22] MEDS: CLOPIDOGREL BISULFATE 75 MG TABLET PO SCH (11:20)
[2018-12-22] MEDS: CARVEDILOL 6.25 MG TABLET. PO SCH ×2 (11:20→17:00)
[2018-12-22] MEDS: amLODIPine BESYLATE 10 MG TABLET PO SCH (11:46)
[2018-12-22] MEDS: LACTOBACILLUS RHAMNOSUS GG 1 CAPSULE. PO SCH ×3 (11:46→20:52)
[2018-12-22] MEDS: SERTRALINE 50 MG TABLET. PO SCH (11:47)
[2018-12-22] MEDS: LISINOPRIL 20 MG TABLET PO SCH (11:47)
[2018-12-22] MEDS: FOLIC/VIT B COMP W-C (RENAL) TABLET. PO SCH (11:47)
[2018-12-22] MEDS: NICOTINE 21MG PATCH. TD SCH (11:47)
[2018-12-22] MEDS: VANCOMYCIN PER PHARMACY MC PRN (14:22)
[2018-12-22 15:00] VITALS: BP 122/25
[2018-12-22] MEDS ORDERED: VANCOMYCIN 1.25 GM in IV NORMAL SALINE 250ML 250 ML IV ONE (15:00)
--- NOTE | 2018-12-22 16:36 | PDOC ---
Infectious Disease Note Subjective Subjective Refusing medications except morphine, FSBS and VS per nursing Patient c/o ongoing pain and requesting Fentanyl instead. No fevers reported Vital Sign Vital Signs Vital Signs Date Time Temp Pulse Resp B/P (MAP) Pulse Ox O2 Delivery O2 Flow Rate FiO2 12/22/18 16:20 Room Air 12/22/18 15:00 97.5 81 16 122/25 (57) 90 97.5 12/22/18 06:31 2.0 Physical Exam PHYSICAL EXAM GENERAL: Propped up i bed, awake, tired appearance HEENT: Oral cavity pink, moist NECK: Supple LUNGS: Clear. HEART: S1, S2 ABDOMEN: Soft and nontender EXTREMITIES: Right [id number] amputation stump looks great, well-approx sutures. Left foot wound vac in place. SKIN: Warm to touch NEUROLOGIC: Awake, answers few questions PIV Labs Lab Laboratory Tests Test 12/21/18 17:30 12/21/18 21:15 Glucose (Fingerstick) 132 mg/dL (70-99) 178 mg/dL (70-99) Micro Microbiology 12/14/18 Blood Culture - Final, Complete NO GROWTH AFTER 5 DAYS Objective Assessment Left fourth toe open amputation and left fifth toe amp site I and D, 12/19. Severe peripheral arterial disease. Diabetes. Hypertension. End-stage renal disease, on hemodialysis. 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 Plan Plan of Care Continue vanc and Cefepime Wound care with vac as directed D/w nursing D/w pharmacy Patient seen and examined. Chart reviewed in detail. Case discussed with [employer]. Agree with above plan. GEOFFREY GUZMAN APRN Dec 22, 2018 16:36 JANETT FOSTER MD Dec 22, 2018 19:37
[2018-12-22 19:00] VITALS: BP 146/57
[2018-12-22] MEDS: ATORVASTATIN CALCIUM 40 MG TABLET. PO SCH ×2 (20:47→20:52)
[2018-12-22] MEDS: LATANOPROST 0.005% OPHTH SOLUTION 2.5ML BOTTLE. OU SCH (20:54)
[2018-12-22 23:00] VITALS: BP 148/60
[2018-12-23] MEDS: MORPHINE SULFATE 2 MG/ML VIAL. IV PRN ×10 (02:20→23:39)
[2018-12-23] MEDS: ALPRAZolam 0.5 MG TABLET PO PRN (02:41)
[2018-12-23 03:00] VITALS: BP 134/32
[2018-12-23] MEDS: HYDROcodone/APAP 10/325 1 TAB TABLET PO PRN ×4 (03:04→22:09)
[2018-12-23] MEDS: LEVOTHYROXINE 50 MCG TABLET PO SCH (03:04)
[2018-12-23 07:00] VITALS: BP 134/71
[2018-12-23] MEDS: PANTOPRAZOLE 40 MG TABLET.DR. PO SCH (07:30)
[2018-12-23] MEDS: CARVEDILOL 6.25 MG TABLET. PO SCH ×2 (08:00→17:00)
[2018-12-23] MEDS: CLOPIDOGREL BISULFATE 75 MG TABLET PO SCH (08:00)
[2018-12-23] MEDS: INSULIN LISPRO 300 UNITS/3 ML VIAL. SQ SCH ×3 (08:58→17:00)
[2018-12-23] MEDS: LISINOPRIL 20 MG TABLET PO SCH (09:00)
[2018-12-23] MEDS: NICOTINE 21MG PATCH. TD SCH (09:00)
[2018-12-23] MEDS: SERTRALINE 50 MG TABLET. PO SCH (09:00)
[2018-12-23] MEDS: FOLIC/VIT B COMP W-C (RENAL) TABLET. PO SCH (09:00)
[2018-12-23] MEDS: amLODIPine BESYLATE 10 MG TABLET PO SCH (09:00)
[2018-12-23] MEDS: LACTOBACILLUS RHAMNOSUS GG 1 CAPSULE. PO SCH ×2 (09:00→22:10)
--- NOTE | 2018-12-23 09:01 | PDOC ---
Infectious Disease Note Subjective Subjective c/o left foot pain + soft stool No F/C/ Vital Sign Vital Signs Vital Signs Date Time Temp Pulse Resp B/P (MAP) Pulse Ox O2 Delivery O2 Flow Rate FiO2 12/23/18 07:00 98.0 83 16 134/71 (92) 95 Room Air 98.0 12/23/18 03:00 2.0 Physical Exam PHYSICAL EXAM GENERAL: Propped up in bed, alert, conversing on the phone HEENT: Oral cavity pink, moist NECK: Supple LUNGS: Clear. HEART: S1, S2 ABDOMEN: Soft and nontender EXTREMITIES: Right [id number] amputation stump looks great, well-approx sutures. Left foot wound vac in place. SKIN: Warm to touch NEUROLOGIC: Alert, answers questions appropriately PIV Labs Lab Laboratory Tests Test 12/22/18 17:11 12/22/18 20:03 12/23/18 07:29 Glucose (Fingerstick) 134 mg/dL (70-99) 126 mg/dL (70-99) 241 mg/dL (70-99) Micro Microbiology 12/14/18 Blood Culture - Final, Complete NO GROWTH AFTER 5 DAYS Objective Assessment Left fourth toe open amputation and left fifth toe amp site I and D, 12/19. no cultures Severe peripheral arterial disease. Diabetes. Hypertension. End-stage renal disease, on hemodialysis. 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 Leukocytosis Plan Plan of Care Continue vanc and Cefepime Wound care with vac as directed CBC in am D/w nursing Patient seen and examined. Chart reviewed in detail. Case discussed with DISTRIBUTION SPECIALIST. Agree with above plan. GEOFFREY GUZMAN APRN Dec 23, 2018 09:01 JANETT FOSTER MD Dec 23, 2018 20:35
[2018-12-23] MEDS: VANCOMYCIN PER PHARMACY MC PRN (09:05)
[2018-12-23] MEDS: CEFEPIME HCL IV Push 1 GM VIAL. IVP SCH (10:00)
--- NOTE | 2018-12-23 10:47 | PDOC ---
PROGRESS NOTES Chief Complaint Chief Complaint impression s/p left 4th toe amputation s/p 5th left toe revision s/p RT BKA, HTN urgency - resolved ESRD -on HD anemai of ESRD Hypothyroidism - on replacement therapy Left 5th digit amputation - Dyslipidemia on meds PAD - Diffuse moderate to advanced atherosclerotic plaque in the lower activity arteries with moderate stenosis in the mid SFA, mild to moderate stenosis in the popliteal artery. Nonvisualization of flow in the distal FACILITY ADMINISTRATOR suggests occlusion, age indeterminate. Anxiety, depression sec to med illness mod to severe pcm History of Present Illness History of Present Illness NAsty to me today, asks for pain meds Still on iv abx per iD Cleared from vas sx to d Eddie Stanley and SW - she will go home with HH - once okayed by ID E[facility]LI[facility] ENTRY She was admitted after leaving AMA from [facility] THis admission, vasc sx fixed her 4th toe and revised the 5th toe amputation PLAN: DNR Hoepfully dc HH tmr monday once PO abx Okayed by vasc to dc - she has wound vac Vitals Vitals Vital Signs Date Time Temp Pulse Resp B/P (MAP) Pulse Ox O2 Delivery O2 Flow Rate FiO2 12/23/18 08:54 28 Room Air 12/23/18 07:00 98.0 83 134/71 (92) 95 98.0 12/23/18 03:00 2.0 Physical Exam Physical Exam GENERAL: Propped up in bed, alert, conversing on the phone HEENT: Oral cavity pink, moist NECK: Supple LUNGS: Clear. HEART: S1, S2 ABDOMEN: Soft and nontender EXTREMITIES: Right [id number] amputation stump looks great, well-approx joy tures. Left foot wound vac in place. SKIN: Warm to touch NEUROLOGIC: Alert, answers questions appropriately PIV General: Alert, Oriented X3, Cooperative, mild distress Heart: Regular rate, Normal S1, Normal S2 Lungs: Clear Abdomen: Normal bowel sounds, Soft, No tenderness Extremities: No clubbing, No cyanosis, Normal pulses Skin: Other (bka stump, wound dressing, amputated toes) Labs LABS Laboratory Tests Test 12/22/18 17:11 12/22/18 20:03 12/23/18 07:29 Glucose (Fingerstick) 134 mg/dL (70-99) 126 mg/dL (70-99) 241 mg/dL (70-99) Review of Systems Review of Systems pain everywhere! Assessment and Plan Assessmemt and Plan Problems Medical Problems: (1) Anemia Status: Chronic (2) Diabetic peripheral neuropathy associated with type 2 diabetes mellitus Status: Chronic (3) ESRD on hemodialysis Status: Chronic (4) Fall Status: Acute (5) Hyperglycemia Status: Acute (6) Hyperkalemia Status: Acute (7) PAD (peripheral artery disease) Status: Chronic Comment Review of Relevant I have reviewed the following items pamela (where applicable) has been applied. Labs Laboratory Tests Test 12/21/18 12:09 12/21/18 12:20 12/21/18 17:30 12/21/18 21:15 Glucose (Fingerstick) 96 mg/dL (70-99) 132 mg/dL (70-99) 178 mg/dL (70-99) White Blood Count 13.2 x10^3/uL (4.0-11.0) Red Blood Count 2.85 x10^6/uL (3.50-5.40) Hemoglobin 8.4 g/dL (12.0-15.5) Hematocrit 24.9 % (36.0-47.0) Mean Corpuscular Volume 88 fL (79-100) Mean Corpuscular Hemoglobin 29 pg (25-35) Mean Corpuscular Hemoglobin Concent 34 g/dL (31-37) Red Cell Distribution Width 17.1 % (11.5-14.5) Platelet Count 365 x10^3/uL (140-400) Neutrophils (%) (Auto) 75 % (31-73) Lymphocytes (%) (Auto) 14 % (24-48) Monocytes (%) (Auto) 9 % (0-9) Eosinophils (%) (Auto) 1 % (0-3) Basophils (%) (Auto) 1 % (0-3) Neutrophils # (Auto) 9.9 x10^3/uL (1.8-7.7) Lymphocytes # (Auto) 1.9 x10^3/uL (1.0-4.8) Monocytes # (Auto) 1.2 x10^3/uL (0.0-1.1) Eosinophils # (Auto) 0.2 x10^3/uL (0.0-0.7) Basophils # (Auto) 0.2 x10^3/uL (0.0-0.2) Erythrocyte Sedimentation Rate 122 (0-25) Sodium Level 138 mmol/L (136-145) Potassium Level 4.8 mmol/L (3.5-5.1) Chloride Level 96 mmol/L (98-107) Carbon Dioxide Level 31 mmol/L (21-32) Anion Gap 11 (6-14) Blood Urea Nitrogen 47 mg/dL (7-20) Creatinine 5.3 mg/dL (0.6-1.0) Estimated GFR (Cockcroft-Gault) 10.1 BUN/Creatinine Ratio 9 (6-20) Glucose Level 109 mg/dL (70-99) Calcium Level 8.6 mg/dL (8.5-10.1) Total Bilirubin 0.4 mg/dL (0.2-1.0) Aspartate Amino Transf (AST/SGOT) 42 U/L (15-37) Alanine Aminotransferase (ALT/SGPT) 10 U/L (14-59) Alkaline Phosphatase 98 U/L (46-116) Total Protein 6.8 g/dL (6.4-8.2) Albumin 2.4 g/dL (3.4-5.0) Albumin/Globulin Ratio 0.5 (1.0-1.7) Random Vancomycin Level 2.1 mcg/mL Test 12/22/18 17:11 12/22/18 20:03 12/23/18 07:29 Glucose (Fingerstick) 134 mg/dL (70-99) 126 mg/dL (70-99) 241 mg/dL (70-99) Laboratory Tests Test 12/22/18 17:11 12/22/18 20:03 12/23/18 07:29 Glucose (Fingerstick) 134 mg/dL (70-99) 126 mg/dL (70-99) 241 mg/dL (70-99) Microbiology 12/14/18 Blood Culture - Final, Complete NO GROWTH AFTER 5 DAYS Medications Current Medications Fentanyl Citrate (Fentanyl 2ml Vial) 50 mcg 1X ONCE IV Last administered on 12/14/18at 02:52; Start 12/14/18 at 01:30; Stop 12/14/18 at 01:32; Status DC Ondansetron HCl (Zofran) 4 mg 1X ONCE IV Last administered on 12/14/18at 02:52; Start 12/14/18 at 01:30; Stop 12/14/18 at 01:32; Status DC Famotidine (Pepcid Vial) 20 mg 1X ONCE IVP Last administered on 12/14/18at 02:52; Start 12/14/18 at 01:30; Stop 12/14/18 at 01:32; Status DC Mupirocin (Bactroban) 1 herber 1X ONCE TP Last administered on 12/14/18at 02:52; Start 12/14/18 at 01:45; Stop 12/14/18 at 01:46; Status DC Mupirocin (Bactroban) 1 herber 1X ONCE TP Last administered on 12/14/18at 02:52; Start 12/14/18 at 02:30; Stop 12/14/18 at 02:31; Status DC Insulin Human Regular (HumuLIN R VIAL) 10 unit 1X ONCE IV ; Start 12/14/18 at 03:30; Stop 12/14/18 at 03:35; Status DC Ondansetron HCl (Zofran) 4 mg PRN Q8HRS PRN IV NAUSEA/VOMITING Last admini stered on 12/15/18at 00:08; Start 12/14/18 at 04:00; Stop 12/15/18 at 03:59; Status DC Fentanyl Citrate (Fentanyl 2ml Vial) 50 mcg PRN Q2HR PRN IV PAIN Last administered on 12/14/18at 09:00; Start 12/14/18 at 04:00; Stop 12/14/18 at 09:05; Status DC Insulin Human Lispro (HumaLOG) 0-5 UNITS TIDWMEALS SQ Last administered on 12/23/18at 08:58; Start 12/14/18 at 08:00 Dextrose (Dextrose 50%-Water Syringe) 12.5 gm PRN Q15MIN PRN IV SEE COMMENTS; Start 12/14/18 at 04:00 Dextrose 250 ml PRN Q15MIN PRN IV SEE COMMENTS; Start 12/14/18 at 04:00; Stop 12/21/18 at 11:24; Status DC Albuterol Sulfate (Ventolin Neb Soln) 2.5 mg PRN BID PRN INH SHORTNESS OF BREATH; Start 12/14/18 at 09:00 Alprazolam (Xanax) 0.5 mg PRN TID PRN PO ANXIETY / AGITATION; Start 12/14/18 at 09:00; Stop 12/15/18 at 09:03; Status DC Amlodipine Besylate (Norvasc) 10 mg DAILY PO Last administered on 12/21/18 16:36; Start 12/14/18 at 09:00 Atorvastatin Calcium (Lipitor) 40 mg HS PO Last administered on 12/21/18 22:42; Start 12/14/18 at 21:00 Carvedilol (Coreg) 6.25 mg BIDWMEALS PO Last administered on 12/21/18 16:36; Start 12/14/18 at 09:00 Clonidine HCl (Catapres Tts-2) 1 patch WEEKLY TD Last administered on 12/21/18 09:47; Start 12/14/18 at 09:00 Vitamin B Complex/ Vitamin C (Pinky-Shreya) 1 tab DAILY PO Last administered on 12/21/18 09:43; Start 12/14/18 at 09:00 Acetaminophen/ Hydrocodone Bitart (Lortab 10/325) 1 tab PRN Q4HRS PRN PO MODERATE TO SEVERE PAIN Last administered on 12/15/18 08:05; Start 12/14/18 at 09:00; Stop 12/15/18 at 09:03; Status DC Latanoprost (Xalatan) 1 drop HS OU Last administered on 12/21/18 22:44; Start 12/14/18 at 21:00 Levothyroxine Sodium (Synthroid) 50 mcg DAILY06 PO Last administered on 12/23/18 03:04; Start 12/14/18 at 09:00 Lisinopril (Prinivil) 20 mg DAILY PO Last administered on 12/21/18 16:37; Start 12/14/18 at 09:00 Prochlorperazine Maleate (Compazine) 5 mg PRN TID PRN PO NAUSEA 2ND CHOICE Last administered on 12/21/18 09:43; Start 12/14/18 at 09:00 Sertraline HCl (Zoloft) 50 mg DAILY PO Last administered on 12/21/18 09:43; Start 12/14/18 at 09:00 Acetaminophen (Tylenol) 650 mg PRN Q6HRS PRN PO MILD PAIN / TEMP; Start 12/14/18 at 09:00 Cephalexin HCl (Keflex) 500 mg TID PO Last administered on 12/16/18at 14:07; Start 12/14/18 at 09:00; Stop 12/16/18 at 15:12; Status DC Amylase/Lipase/ Protease (Zenpep 5,000) 1 cap TIDWMEALS PO Last administered on 12/21/18at 16:35; Start 12/14/18 at 09:00 Famotidine (Pepcid) 20 mg QHS PO ; Start 12/14/18 at 21:00; Status Cancel Pantoprazole Sodium (Protonix) 40 mg DAILYAC PO Last administered on 12/21/18at 07:44; Start 12/14/18 at 09:00 Fentanyl Citrate (Fentanyl 2ml Vial) 75 mcg PRN Q2HR PRN IV PAIN Last administered on 12/14/18at 11:20; Start 12/14/18 at 09:15; Stop 12/15/18 at 09:03; Status DC Clopidogrel Bisulfate (Plavix) 75 mg DAILYWBKFT PO Last administered on 12/21/18at 09:38; Start 12/14/18 at 10:00 Sodium Chloride 1,000 ml @ 1,000 mls/hr Q1H PRN IV hypotension; Start 12/14/18 at 09:38; Stop 12/14/18 at 15:37; Status DC Acetaminophen (Tylenol) 500 mg 1X PRN PRN PO MILD PAIN / TEMP; Start 12/14/18 at 09:45; Stop 12/15/18 at 09:44; Status DC Diphenhydramine HCl (Benadryl) 25 mg 1X PRN PRN IV ITCHING; Start 12/14/18 at 09:45; Stop 12/15/18 at 09:44; Status DC Diphenhydramine HCl (Benadryl) 25 mg 1X PRN PRN IV ITCHING; Start 12/14/18 at 09:45; Stop 12/15/18 at 09:44; Status DC Sodium Chloride 1,000 ml @ 400 mls/hr Q2H30M PRN IV PATENCY; Start 12/14/18 at 09:38; Stop 12/14/18 at 21:37; Status DC Info (PHARMACY MONITORING -- do not chart) 1 each PRN DAILY PRN MC SEE COMMENTS; Start 12/14/18 at 09:45; Status Cancel Alprazolam (Xanax) 0.25 mg PRN DAILY PRN PO ANXIETY / AGITATION Last administered on 12/23/18 02:41; Start 12/16/18 at 09:00 Fentanyl Citrate (Fentanyl 2ml Vial) 75 mcg PRN Q4HRS PRN IV PAIN Last administered on 12/16/18 03:26; Start 12/15/18 at 09:15; Stop 12/16/18 at 10:26; Status DC Acetaminophen/ Hydrocodone Bitart (Lortab 10/325) 1 tab PRN Q6HRS PRN PO MODERATE TO SEVERE PAIN Last administered on 12/23/18 08:54; Start 12/15/18 at 09:15 Nicotine (Nicoderm Cq 21mg) 1 patch DAILY TD Last administered on 12/17/18 14:16; Start 12/15/18 at 12:00 Fentanyl (Duragesic 12mcg/ Hr Patch) 1 patch Q3DAYS TD Last administered on 12/21/18 09:46; Start 12/15/18 at 12:15 Ondansetron HCl (Zofran Odt) 4 mg PRN Q6HRS PRN PO NAUSEA/VOMITING 1ST CHOICE Last administered on 12/18/18 20:03; Start 12/15/18 at 12:15 Fentanyl Citrate (Fentanyl 2ml Vial) 75 mcg PRN BID PRN IV SEVERE PAIN, 1st CHOICE Last administered on 12/21/18 17:00; Start 12/16/18 at 14:00 Cephalexin HCl (Keflex) 250 mg BID PO Last administered on 12/18/18 20:03; Start 12/16/18 at 21:00; Stop 12/19/18 at 18:41; Status DC Sodium Chloride 1,000 ml @ 1,000 mls/hr Q1H PRN IV hypotension; Start 12/17/18 at 08:23; Stop 12/17/18 at 14:22; Status DC Acetaminophen (Tylenol) 500 mg 1X PRN PRN PO MILD PAIN / TEMP; Start 12/17/18 at 08:30; Stop 12/18/18 at 08:29; Status DC Diphenhydramine HCl (Benadryl) 25 mg 1X PRN PRN IV ITCHING; Start 12/17/18 at 08:30; Stop 12/18/18 at 08:29; Status DC Diphenhydramine HCl (Benadryl) 25 mg 1X PRN PRN IV ITCHING; Start 12/17/18 at 08:30; Stop 12/18/18 at 08:29; Status DC Sodium Chloride 1,000 ml @ 400 mls/hr Q2H30M PRN IV PATENCY; Start 12/17/18 at 08:23; Stop 12/17/18 at 20:22; Status DC Info (PHARMACY MONITORING -- do not chart) 1 each PRN DAILY PRN MC SEE COMMENTS; Start 12/17/18 at 08:30; Status Cancel Lactobacillus Rhamnosus (Culturelle) 1 cap BID PO Last administered on 12/21/18at 22:42; Start 12/17/18 at 21:00 Zolpidem Tartrate (Ambien) 5 mg PRN QHS PRN PO INSOMNIA, MAY REPEAT IN 1HR Last administered on 12/22/18at 00:00; Start 12/17/18 at 21:45 Darbepoetin Jarrett (ARANESP for DIALYSIS PTS) 60 mcg WEEKLYHS SQ ; Start 12/18/18 at 21:00 Sodium Chloride 1,000 ml @ 1,000 mls/hr Q1H PRN IV hypotension; Start 12/19/18 at 07:43; Stop 12/19/18 at 13:42; Status DC Acetaminophen (Tylenol) 500 mg 1X PRN PRN PO MILD PAIN / TEMP; Start 12/19/18 at 07:45; Stop 12/20/18 at 07:44; Status DC Diphenhydramine HCl (Benadryl) 25 mg 1X PRN PRN IV ITCHING; Start 12/19/18 at 07:45; Stop 12/20/18 at 07:44; Status DC Diphenhydramine HCl (Benadryl) 25 mg 1X PRN PRN IV ITCHING; Start 12/19/18 at 07:45; Stop 12/20/18 at 07:44; Status DC Sodium Chloride 1,000 ml @ 400 mls/hr Q2H30M PRN IV PATENCY; Start 12/19/18 at 07:43; Stop 12/19/18 at 19:42; Status DC Info (PHARMACY MONITORING -- do not chart) 1 each PRN DAILY PRN MC SEE COMMENTS; Start 12/19/18 at 07:45 Ondansetron HCl (Zofran) 4 mg 1X STAT IV Last administered on 12/19/18at 09:34; Start 12/19/18 at 09:25; Stop 12/19/18 at 09:29; Status DC Ondansetron HCl (Zofran) 4 mg 1X ONCE IV Last administered on 12/19/18at 10:18; Start 12/19/18 at 10:15; Stop 12/19/18 at 10:16; Status DC Ondansetron HCl (Zofran) 4 mg PRN Q6HRS PRN IV NAUSEA/VOMITING; Start 12/19/18 at 10:30; Stop 12/20/18 at 10:29; Status DC Fentanyl Citrate (Fentanyl 2ml Vial) 25 mcg PRN Q5MIN PRN IV MILD PAIN 1-3; Start 12/19/18 at 10:30; Stop 12/19/18 at 20:00; Status DC Fentanyl Citrate (Fentanyl 2ml Vial) 50 mcg PRN Q5MIN PRN IV MODERATE TO SEVERE PAIN Last administered on 12/19/18at 13:37; Start 12/19/18 at 10:30; Stop 12/19/18 at 20:00; Status DC Ringer's Solution 1,000 ml @ 30 mls/hr Q24H IV ; Start 12/19/18 at 10:18; Stop 12/19/18 at 12:23; Status DC Lidocaine HCl (Xylocaine-Mpf 1% 2ml Vial) 2 ml PRN 1X PRN ID PRIOR TO IV START; Start 12/19/18 at 10:30; Stop 12/19/18 at 20:00; Status DC Prochlorperazine Edisylate (Compazine) 5 mg PACU PRN PRN IV NAUSEA, MRX1 Last administered on 12/19/18at 12:57; Start 12/19/18 at 10:30; Stop 12/19/18 at 20:00; Status DC Cefazolin Sodium/ Dextrose 50 ml @ 100 mls/hr 1X ONCE IV Last administered on 12/19/18at 12:17; Start 12/19/18 at 12:00; Stop 12/19/18 at 12:29; Status DC Propofol 20 ml @ As Directed STK-MED ONCE IV ; Start 12/19/18 at 12:04; Stop 12/19/18 at 12:05; Status DC Dexamethasone Sodium Phosphate (Decadron) 4 mg STK-MED ONCE .ROUTE ; Start 12/19/18 at 12:04; Stop 12/19/18 at 12:05; Status DC Lidocaine HCl (Lidocaine Pf 2% Vial) 5 ml STK-MED ONCE .ROUTE ; Start 12/19/18 at 12:04; Stop 12/19/18 at 12:05; Status DC Ondansetron HCl (Zofran) 4 mg STK-MED ONCE .ROUTE ; Start 12/19/18 at 12:04; Stop 12/19/18 at 12:05; Status DC Insulin Human Lispro (HumaLOG VIAL for OP,RR ONLY) 0-10 units PRN Q1HR PRN SQ PER PROTOCOL; Start 12/19/18 at 12:15; Stop 12/20/18 at 12:14; Status DC Sodium Chloride 1,000 ml @ 30 mls/hr Q24H IV Last administered on 12/19/18at 12:10; Start 12/19/18 at 12:30; Stop 12/22/18 at 14:25; Status DC Fentanyl Citrate (Fentanyl 2ml Vial) 100 mcg STK-MED ONCE .ROUTE ; Start 12/19/18 at 12:36; Stop 12/19/18 at 12:36; Status DC Vancomycin HCl (Vanco Per Pharmacy) 1 each PRN DAILY PRN MC SEE COMMENTS Last administered on 12/23/18at 09:05; Start 12/19/18 at 13:00 Piperacillin Sod/ Tazobactam Sod (Zosyn Per Pharmacy) 1 each PRN DAILY PRN MC SEE COMMENTS; Start 12/19/18 at 13:00; Stop 12/22/18 at 14:16; Status DC Sevoflurane (Ultane) 30 ml STK-MED ONCE IH ; Start 12/19/18 at 12:49; Stop 12/19/18 at 12:49; Status DC Piperacillin Sod/ Tazobactam Sod 2.25 gm/Sodium Chloride 50 ml @ 100 mls/hr Q8HRS IV Last administered on 12/22/18at 13:56; Start 12/19/18 at 14:00; Stop 12/22/18 at 14:13; Status DC Vancomycin HCl 1.25 gm/Sodium Chloride 250 ml @ 167 mls/hr ONCE ONCE IV Last administered on 12/19/18at 14:51; Start 12/19/18 at 13:15; Stop 12/19/18 at 14:44; Status DC Vancomycin HCl (Vancomycin Random Level) 1 each 1X ONCE MC ; Start 12/21/18 at 06:00; Stop 12/21/18 at 06:02; Status DC Morphine Sulfate (Morphine Sulfate) 2 mg PRN Q2HR PRN IV SEVERE PAIN 7-10, 2nd CHOICE Last administered on 12/23/18at 08:51; Start 12/20/18 at 13:30 Diphenhydramine HCl (Benadryl) 25 mg PRN Q6HRS PRN PO ITCHING Last administered on 12/21/18at 16:59; Start 12/20/18 at 13:30 Morphine Sulfate (Morphine Sulfate) 2 mg PRN Q2HR PRN IV PAIN; Start 12/20/18 at 13:30; Status UNV Cefepime HCl (Maxipime) 1 gm Q24H IVP Last administered on 12/22/18at 11:15; Start 12/21/18 at 10:00 Vancomycin HCl 500 mg/Sodium Chloride 100 ml @ 100 mls/hr QMWF IV ; Start 12/21/18 at 16:00 Sodium Chloride 1,000 ml @ 1,000 mls/hr Q1H PRN IV hypotension; Start 12/21/18 at 11:00; Stop 12/21/18 at 16:59; Status DC Sodium Chloride 1,000 ml @ 400 mls/hr Q2H30M PRN IV PATENCY; Start 12/21/18 at 11:00; Stop 12/21/18 at 22:59; Status DC Info (PHARMACY MONITORING -- do not chart) 1 each PRN DAILY PRN MC SEE COMMENTS; Start 12/21/18 at 17:00; Status UNV Info (PHARMACY MONITORING -- do not chart) 1 each PRN DAILY PRN MC SEE COMMENTS; Start 12/21/18 at 17:00; Status UNV Vancomycin HCl 1.25 gm/Sodium Chloride 250 ml @ 166.667 mls/hr 1X ONCE IV Last administered on 12/22/18at 15:21; Start 12/22/18 at 15:00; Stop 12/22/18 at 16:29; Status DC Vancomycin HCl (Vancomycin Random Level) 1 each 1X ONCE MC ; Start 12/24/18 at 06:00; Stop 12/24/18 at 06:01 Active Scripts Active Keflex (Cephalexin) 500 Mg Capsule 1 Cap PO TID Pinky-Shreya Tablet (Folic Acid/Vitamin B Comp W-C) 0.8 Mg Tablet 1 Tab PO DAILY Hydrocodone-Apap 10-325 (Hydrocodone Bit/Acetaminophen) 1 Tab Tablet 1 Tab PO PRN Q4HRS PRN [Darbepoetin Jarrett In Polysorbat] 60 MCG/0.3 ML Disp.syrin 60 Mcg SQ WEEKLYHS 30 Days Alprazolam 0.5 Mg Tablet 0.5 Mg PO PRN TID PRN MDD 1 Tylenol (Acetaminophen) 325 Mg Capsule 650 Mg PO Q6-8HRS PRN Zantac (Ranitidine Hcl) 300 Mg Tablet 1 Tab PO QHS Compazine (Prochlorperazine Maleate) 5 Mg Tablet 5 Mg PO PRN TID PRN 10 Days [Pantoprazole] 40 MG Tablet. 40 Mg PO DAILYAC 30 Days Reported Zoloft (Sertraline Hcl) 50 Mg Tablet 50 Mg PO DAILY Lisinopril 20 Mg Tablet 20 Mg PO DAILY Coreg (Carvedilol) 6.25 Mg Tablet 6.25 Mg PO BIDWMEALS Shante Knowles 6,000 Units Capsule (Lipase/Protease/Amylase) 1 Each Capsule. 1 Tab PO TID Proair Hfa (Albuterol Sulfate) 8.5 Gm Hfa.aer.ad 2 Puff INH BID PRN Levothyroxine Sodium 50 Mcg Tablet 1 Tab PO DAILY Clonidine Tts-2 (Clonidine) 1 Each Patch.tdwk 1 Patch TD WEEKLY Amlodipine Besylate 5 Mg Tablet 10 Mg PO DAILY Atorvastatin Calcium 40 Mg Tablet 40 Mg PO HS Latanoprost 2.5 Ml Drops 1 Drop EACHEYE HS Vitals/I & O Vital Sign - Last 24 Hours 12/22/18 12/22/18 12/22/18 12/22/18 11:15 11:20 11:46 11:47 Pulse 82 82 82 B/P (MAP) 118/30 118/30 118/30 O2 Delivery Room Air 12/22/18 12/22/18 12/22/1819 12:00 13:55 14:29 15:00 Temp 97.5 97.5 Pulse 81 Resp 16 B/P (MAP) 122/25 (57) Pulse Ox 90 O2 Delivery Room Air Room Air Room Air Room Air 12/22/18 12/22/18 12/22/18 12/22/18 16:20 17:00 18:38 19:00 Temp 98.3 98.3 Pulse 81 Resp 18 B/P (MAP) 146/57 (86) Pulse Ox 93 O2 Delivery Room Air Room Air Room Air Room Air O2 Flow Rate 2.0 12/22/18 12/23/18 12/23/18 12/23/18 23:00 03:00 07:00 08:51 Temp 97.9 98.0 97.9 98.0 Pulse 76 78 83 Resp 18 18 16 28 B/P (MAP) 148/60 (89) 134/32 (66) 134/71 (92) Pulse Ox 93 99 95 O2 Delivery Room Air Room Air Room Air Room Air O2 Flow Rate 2.0 2.0 12/23/18 08:54 Resp 28 O2 Delivery Room Air Intake and Output 12/22/18 12/22/18 12/23/18 15:00 23:00 07:00 Intake Total 440 ml 0 ml Output Total 30 ml Balance 410 ml 0 ml PRABHAKAR MOSQUERA MD Dec 23, 2018 10:47
--- NOTE | 2018-12-23 15:14 | NUR ---
Staff reported finding pt on the floor when responding to call light. On assessment pt was sitting on the floor. No injuries noted at this time. Pt states that she was self-transferring, her heal slipped on the floor, she fell on her bottom. Skin intact. C/o pain 10/10, vitals 156/52 heart rate 86, respirations 28. Asked for an additional dose of morphine. Request denied. Pt helped to the bed by 2 staff. Room was cleaned up by this health underwriter. Pt states "that nurse last night put baby oil on my feet so I could fall". On assessment, skin of heal was dry, no sign of oil on the skin. Pt was not wearing non-slip socks, states she does not like wearing them. Provider, nursing super notified, family notified. Continue to monitor.
--- NOTE | 2018-12-23 17:27 | NUR ---
New episodes of diarrhea. Pt having uncontrolled episodes of explosive diarrhea. Has been incontinent of bowels the second part of this shift. Unable to make it to the [facility] on her own within a timely manner. Placed on isolation precautions. Education provided to pt. Reinforcement needed. Continue to monitor.
[2018-12-23 19:00] VITALS: BP 129/29
[2018-12-23] MEDS: LATANOPROST 0.005% OPHTH SOLUTION 2.5ML BOTTLE. OU SCH (21:00)
[2018-12-23] MEDS: ATORVASTATIN CALCIUM 40 MG TABLET. PO SCH (22:09)
[2018-12-23 23:00] VITALS: BP 157/32
[2018-12-23] MEDS: ZOLPIDEM 5 MG TABLET. PO PRN (23:48)
[2018-12-24] MEDS: MORPHINE SULFATE 2 MG/ML VIAL. IV PRN ×9 (02:13→22:09)
[2018-12-24 03:00] VITALS: BP 162/39
[2018-12-24] MEDS ORDERED: VANCOMYCIN RANDOM LEVEL. MC ONE (06:00)
[2018-12-24 07:00] VITALS: BP 152/29
[2018-12-24] MEDS: HYDROcodone/APAP 10/325 1 TAB TABLET PO PRN (07:14)
[2018-12-24] MEDS: LEVOTHYROXINE 50 MCG TABLET PO SCH (07:19)
[2018-12-24] MEDS: INSULIN LISPRO 300 UNITS/3 ML VIAL. SQ SCH ×3 (07:52→17:00)
[2018-12-24] MEDS: CARVEDILOL 6.25 MG TABLET. PO SCH ×2 (08:00→17:00)
--- NOTE | 2018-12-24 08:42 | PDOC ---
PROGRESS NOTES Chief Complaint Chief Complaint impression s/p left 4th toe amputation s/p 5th left toe revision s/p RT BKA, HTN urgency - resolved ESRD -on HD anemai of ESRD Hypothyroidism - on replacement therapy Left 5th digit amputation - Dyslipidemia on meds PAD - Diffuse moderate to advanced atherosclerotic plaque in the lower activity arteries with moderate stenosis in the mid SFA, mild to moderate stenosis in the popliteal artery. Nonvisualization of flow in the distal [employer] suggests occlusion, age indeterminate. Anxiety, depression/// sec to med illness mod to severe pcm 29 min pt exam, chart review, > 50% of time spent with exam, chart review, pt care coordination History of Present Illness History of Present Illness unpleasant affect, mood Still on iv abx per iD vanc q 12 hrs go home with HH - once okayed by ID was admitted after leaving AMA from [facility] THis admission, vasc sx fixed her 4th toe and revised the 5th toe amputation PLAN: DNR wound vac iv antibiotics Vitals Vitals Vital Signs Date Time Temp Pulse Resp B/P (MAP) Pulse Ox O2 Delivery O2 Flow Rate FiO2 12/24/18 07:00 97.6 82 17 152/29 (70) 94 Room Air 97.6 Physical Exam Physical Exam GENERAL: Propped up in bed, alert, conversing on the phone HEENT: Oral cavity pink, moist NECK: Supple LUNGS: Clear. HEART: S1, S2 ABDOMEN: Soft and nontender EXTREMITIES: Right [id number] amputation stump looks great, well-approx sutures. Left foot wound vac in place. SKIN: Warm to touch NEUROLOGIC: Alert, answers questions appropriately PIV General: Alert, Oriented X3, Cooperative, No acute distress Heart: Regular rate, Normal S1, Normal S2 Lungs: Clear Abdomen: Normal bowel sounds, Soft, No tenderness Extremities: No clubbing, No cyanosis, Normal pulses Skin: Other (bka stump, wound dressing, amputated toes wound vac) Labs LABS Laboratory Tests Test 12/23/18 12:13 12/23/18 20:42 12/24/18 07:11 Glucose (Fingerstick) 172 mg/dL (70-99) 185 mg/dL (70-99) 112 mg/dL (70-99) Assessment and Plan Assessmemt and Plan Problems Medical Problems: (1) Anemia Status: Chronic (2) Diabetic peripheral neuropathy associated with type 2 diabetes mellitus Status: Chronic (3) ESRD on hemodialysis Status: Chronic (4) Fall Status: Acute (5) Hyperglycemia Status: Acute (6) Hyperkalemia Status: Acute (7) PAD (peripheral artery disease) Status: Chronic Comment Review of Relevant I have reviewed the following items pamela (where applicable) has been applied. Labs Laboratory Tests Test 12/22/18 17:11 12/22/18 20:03 12/23/18 07:29 12/23/18 12:13 Glucose (Fingerstick) 134 mg/dL (70-99) 126 mg/dL (70-99) 241 mg/dL (70-99) 172 mg/dL (70-99) Test 12/23/18 20:42 12/24/18 07:11 Glucose (Fingerstick) 185 mg/dL (70-99) 112 mg/dL (70-99) Laboratory Tests Test 12/23/18 12:13 12/23/18 20:42 12/24/18 07:11 Glucose (Fingerstick) 172 mg/dL (70-99) 185 mg/dL (70-99) 112 mg/dL (70-99) Microbiology 12/14/18 Blood Culture - Final, Complete NO GROWTH AFTER 5 DAYS Medications Current Medications Fentanyl Citrate (Fentanyl 2ml Vial) 50 mcg 1X ONCE IV Last administered on 12/14/18at 02:52; Start 12/14/18 at 01:30; Stop 12/14/18 at 01:32; Status DC Ondansetron HCl (Zofran) 4 mg 1X ONCE IV Last administered on 12/14/18at 02:52; Start 12/14/18 at 01:30; Stop 12/14/18 at 01:32; Status DC Famotidine (Pepcid Vial) 20 mg 1X ONCE IVP Last administered on 12/14/18at 02:52; Start 12/14/18 at 01:30; Stop 12/14/18 at 01:32; Status DC Mupirocin (Bactroban) 1 herber 1X ONCE TP Last administered on 12/14/18at 02:52; Start 12/14/18 at 01:45; Stop 12/14/18 at 01:46; Status DC Mupirocin (Bactroban) 1 herber 1X ONCE TP Last administered on 12/14/18at 02:52; Start 12/14/18 at 02:30; Stop 12/14/18 at 02:31; Status DC Insulin Human Regular (HumuLIN R VIAL) 10 unit 1X ONCE IV ; Start 12/14/18 at 03:30; Stop 12/14/18 at 03:35; Status DC Ondansetron HCl (Zofran) 4 mg PRN Q8HRS PRN IV NAUSEA/VOMITING Last administered on 12/15/18at 00:08; Start 12/14/18 at 04:00; Stop 12/15/18 at 03:59; Status DC Fentanyl Citrate (Fentanyl 2ml Vial) 50 mcg PRN Q2HR PRN IV PAIN Last administered on 12/14/18at 09:00; Start 12/14/18 at 04:00; Stop 12/14/18 at 09:05; Status DC Insulin Human Lispro (HumaLOG) 0-5 UNITS TIDWMEALS SQ Last administered on 12/23/18at 08:58; Start 12/14/18 at 08:00 Dextrose (Dextrose 50%-Water Syringe) 12.5 gm PRN Q15MIN PRN IV SEE COMMENTS; Start 12/14/18 at 04:00 Dextrose 250 ml PRN Q15MIN PRN IV SEE COMMENTS; Start 12/14/18 at 04:00; Stop 12/21/18 at 11:24; Status DC Albuterol Sulfate (Ventolin Neb Soln) 2.5 mg PRN BID PRN INH SHORTNESS OF B REATH; Start 12/14/18 at 09:00 Alprazolam (Xanax) 0.5 mg PRN TID PRN PO ANXIETY / AGITATION; Start 12/14/18 at 09:00; Stop 12/15/18 at 09:03; Status DC Amlodipine Besylate (Norvasc) 10 mg DAILY PO Last administered on 12/21/18at 16:36; Start 12/14/18 at 09:00 Atorvastatin Calcium (Lipitor) 40 mg HS PO Last administered on 12/23/18at 22:09; Start 12/14/18 at 21:00 Carvedilol (Coreg) 6.25 mg BIDWMEALS PO Last administered on 12/21/18at 16:36; Start 12/14/18 at 09:00 Clonidine HCl (Catapres Tts-2) 1 patch WEEKLY TD Last administered on 12/21/18 09:47; Start 12/14/18 at 09:00 Vitamin B Complex/ Vitamin C (Pinky-Shreya) 1 tab DAILY PO Last administered on 12/21/18 09:43; Start 12/14/18 at 09:00 Acetaminophen/ Hydrocodone Bitart (Lortab 10/325) 1 tab PRN Q4HRS PRN PO MODERATE TO SEVERE PAIN Last administered on 12/15/18 08:05; Start 12/14/18 at 09:00; Stop 12/15/18 at 09:03; Status DC Latanoprost (Xalatan) 1 drop HS OU Last administered on 12/21/18 22:44; Start 12/14/18 at 21:00 Levothyroxine Sodium (Synthroid) 50 mcg DAILY06 PO Last administered on 12/24/18 07:19; Start 12/14/18 at 09:00 Lisinopril (Prinivil) 20 mg DAILY PO Last administered on 12/21/18 16:37; Start 12/14/18 at 09:00 Prochlorperazine Maleate (Compazine) 5 mg PRN TID PRN PO NAUSEA 2ND CHOICE Last administered on 12/21/18 09:43; Start 12/14/18 at 09:00 Sertraline HCl (Zoloft) 50 mg DAILY PO Last administered on 12/21/18 09:43; Start 12/14/18 at 09:00 Acetaminophen (Tylenol) 650 mg PRN Q6HRS PRN PO MILD PAIN / TEMP; Start 12/14/18 at 09:00 Cephalexin HCl (Keflex) 500 mg TID PO Last administered on 12/16/18 14:07; Start 12/14/18 at 09:00; Stop 12/16/18 at 15:12; Status DC Amylase/Lipase/ Protease (Zenpep 5,000) 1 cap TIDWMEALS PO Last administered on 12/21/18 16:35; Start 12/14/18 at 09:00 Famotidine (Pepcid) 20 mg QHS PO ; Start 12/14/18 at 21:00; Status Cancel Pantoprazole Sodium (Protonix) 40 mg DAILYAC PO Last administered on 12/21/18 07:44; Start 12/14/18 at 09:00 Fentanyl Citrate (Fentanyl 2ml Vial) 75 mcg PRN Q2HR PRN IV PAIN Last administered on 12/14/18at 11:20; Start 12/14/18 at 09:15; Stop 12/15/18 at 09:03; Status DC Clopidogrel Bisulfate (Plavix) 75 mg DAILYWBKFT PO Last administered on 12/21/18at 09:38; Start 12/14/18 at 10:00 Sodium Chloride 1,000 ml @ 1,000 mls/hr Q1H PRN IV hypotension; Start 12/14/18 at 09:38; Stop 12/14/18 at 15:37; Status DC Acetaminophen (Tylenol) 500 mg 1X PRN PRN PO MILD PAIN / TEMP; Start 12/14/18 at 09:45; Stop 12/15/18 at 09:44; Status DC Diphenhydramine HCl (Benadryl) 25 mg 1X PRN PRN IV ITCHING; Start 12/14/18 at 09:45; Stop 12/15/18 at 09:44; Status DC Diphenhydramine HCl (Benadryl) 25 mg 1X PRN PRN IV ITCHING; Start 12/14/18 at 09:45; Stop 12/15/18 at 09:44; Status DC Sodium Chloride 1,000 ml @ 400 mls/hr Q2H30M PRN IV PATENCY; Start 12/14/18 at 09:38; Stop 12/14/18 at 21:37; Status DC Info (PHARMACY MONITORING -- do not chart) 1 each PRN DAILY PRN MC SEE COMMENTS; Start 12/14/18 at 09:45; Status Cancel Alprazolam (Xanax) 0.25 mg PRN DAILY PRN PO ANXIETY / AGITATION Last adm inistered on 12/23/18at 02:41; Start 12/16/18 at 09:00 Fentanyl Citrate (Fentanyl 2ml Vial) 75 mcg PRN Q4HRS PRN IV PAIN Last ad ministered on 12/16/18at 03:26; Start 12/15/18 at 09:15; Stop 12/16/18 at 10:26; Status DC Acetaminophen/ Hydrocodone Bitart (Lortab 10/325) 1 tab PRN Q6HRS PRN PO MODERATE TO SEVERE PAIN Last administered on 12/24/18 07:14; Start 12/15/18 at 09:15 Nicotine (Nicoderm Cq 21mg) 1 patch DAILY TD Last administered on 12/17/18 14:16; Start 12/15/18 at 12:00 Fentanyl (Duragesic 12mcg/ Hr Patch) 1 patch Q3DAYS TD Last administered on 12/21/18 09:46; Start 12/15/18 at 12:15 Ondansetron HCl (Zofran Odt) 4 mg PRN Q6HRS PRN PO NAUSEA/VOMITING 1ST CHOICE Last administered on 12/18/18 20:03; Start 12/15/18 at 12:15 Fentanyl Citrate (Fentanyl 2ml Vial) 75 mcg PRN BID PRN IV SEVERE PAIN, 1st CHOICE Last administered on 12/21/18 17:00; Start 12/16/18 at 14:00 Cephalexin HCl (Keflex) 250 mg BID PO Last administered on 12/18/18 20:03; Start 12/16/18 at 21:00; Stop 12/19/18 at 18:41; Status DC Sodium Chloride 1,000 ml @ 1,000 mls/hr Q1H PRN IV hypotension; Start 12/17/18 at 08:23; Stop 12/17/18 at 14:22; Status DC Acetaminophen (Tylenol) 500 mg 1X PRN PRN PO MILD PAIN / TEMP; Start 12/17/18 at 08:30; Stop 12/18/18 at 08:29; Status DC Diphenhydramine HCl (Benadryl) 25 mg 1X PRN PRN IV ITCHING; Start 12/17/18 at 08:30; Stop 12/18/18 at 08:29; Status DC Diphenhydramine HCl (Benadryl) 25 mg 1X PRN PRN IV ITCHING; Start 12/17/18 at 08:30; Stop 12/18/18 at 08:29; Status DC Sodium Chloride 1,000 ml @ 400 mls/hr Q2H30M PRN IV PATENCY; Start 12/17/18 at 08:23; Stop 12/17/18 at 20:22; Status DC Info (PHARMACY MONITORING -- do not chart) 1 each PRN DAILY PRN MC SEE COMMENTS; Start 12/17/18 at 08:30; Status Cancel Lactobacillus Rhamnosus (Culturelle) 1 cap BID PO Last administered on 12/23/18at 22:10; Start 12/17/18 at 21:00 Zolpidem Tartrate (Ambien) 5 mg PRN QHS PRN PO INSOMNIA, MAY REPEAT IN 1HR Last administered on 12/23/18at 23:48; Start 12/17/18 at 21:45 Darbepoetin Jarrett (ARANESP for DIALYSIS PTS) 60 mcg WEEKLYHS SQ ; Start 12/18/18 at 21:00 Sodium Chloride 1,000 ml @ 1,000 mls/hr Q1H PRN IV hypotension; Start 12/19/18 at 07:43; Stop 12/19/18 at 13:42; Status DC Acetaminophen (Tylenol) 500 mg 1X PRN PRN PO MILD PAIN / TEMP; Start 12/19/18 at 07:45; Stop 12/20/18 at 07:44; Status DC Diphenhydramine HCl (Benadryl) 25 mg 1X PRN PRN IV ITCHING; Start 12/19/18 at 07:45; Stop 12/20/18 at 07:44; Status DC Diphenhydramine HCl (Benadryl) 25 mg 1X PRN PRN IV ITCHING; Start 12/19/18 at 07:45; Stop 12/20/18 at 07:44; Status DC Sodium Chloride 1,000 ml @ 400 mls/hr Q2H30M PRN IV PATENCY; Start 12/19/18 at 07:43; Stop 12/19/18 at 19:42; Status DC Info (PHARMACY MONITORING -- do not chart) 1 each PRN DAILY PRN MC SEE COMMENTS; Start 12/19/18 at 07:45 Ondansetron HCl (Zofran) 4 mg 1X STAT IV Last administered on 12/19/18at 09:34; Start 12/19/18 at 09:25; Stop 12/19/18 at 09:29; Status DC Ondansetron HCl (Zofran) 4 mg 1X ONCE IV Last administered on 12/19/18at 10:18; Start 12/19/18 at 10:15; Stop 12/19/18 at 10:16; Status DC Ondansetron HCl (Zofran) 4 mg PRN Q6HRS PRN IV NAUSEA/VOMITING; Start 12/19/18 at 10:30; Stop 12/20/18 at 10:29; Status DC Fentanyl Citrate (Fentanyl 2ml Vial) 25 mcg PRN Q5MIN PRN IV MILD PAIN 1-3; Start 12/19/18 at 10:30; Stop 12/19/18 at 20:00; Status DC Fentanyl Citrate (Fentanyl 2ml Vial) 50 mcg PRN Q5MIN PRN IV MODERATE TO SEVERE PAIN Last administered on 12/19/18at 13:37; Start 12/19/18 at 10:30; Stop 12/19/18 at 20:00; Status DC Ringer's Solution 1,000 ml @ 30 mls/hr Q24H IV ; Start 12/19/18 at 10:18; Stop 12/19/18 at 12:23; Status DC Lidocaine HCl (Xylocaine-Mpf 1% 2ml Vial) 2 ml PRN 1X PRN ID PRIOR TO IV START; Start 12/19/18 at 10:30; Stop 12/19/18 at 20:00; Status DC Prochlorperazine Edisylate (Compazine) 5 mg PACU PRN PRN IV NAUSEA, MRX1 Last administered on 12/19/18at 12:57; Start 12/19/18 at 10:30; Stop 12/19/18 at 20:00; Status DC Cefazolin Sodium/ Dextrose 50 ml @ 100 mls/hr 1X ONCE IV Last administered on 12/19/18at 12:17; Start 12/19/18 at 12:00; Stop 12/19/18 at 12:29; Status DC Propofol 20 ml @ As Directed STK-MED ONCE IV ; Start 12/19/18 at 12:04; Stop 12/19/18 at 12:05; Status DC Dexamethasone Sodium Phosphate (Decadron) 4 mg STK-MED ONCE .ROUTE ; Start 12/19/18 at 12:04; Stop 12/19/18 at 12:05; Status DC Lidocaine HCl (Lidocaine Pf 2% Vial) 5 ml STK-MED ONCE .ROUTE ; Start 12/19/18 at 12:04; Stop 12/19/18 at 12:05; Status DC Ondansetron HCl (Zofran) 4 mg STK-MED ONCE .ROUTE ; Start 12/19/18 at 12:04; Stop 12/19/18 at 12:05; Status DC Insulin Human Lispro (HumaLOG VIAL for OP,RR ONLY) 0-10 units PRN Q1HR PRN SQ PER PROTOCOL; Start 12/19/18 at 12:15; Stop 12/20/18 at 12:14; Status DC Sodium Chloride 1,000 ml @ 30 mls/hr Q24H IV Last administered on 12/19/18at 12:10; Start 12/19/18 at 12:30; Stop 12/22/18 at 14:25; Status DC Fentanyl Citrate (Fentanyl 2ml Vial) 100 mcg STK-MED ONCE .ROUTE ; Start 12/19/18 at 12:36; Stop 12/19/18 at 12:36; Status DC Vancomycin HCl (Vanco Per Pharmacy) 1 each PRN DAILY PRN MC SEE COMMENTS Last administered on 12/23/18at 09:05; Start 12/19/18 at 13:00 Piperacillin Sod/ Tazobactam Sod (Zosyn Per Pharmacy) 1 each PRN DAILY PRN MC SEE COMMENTS; Start 12/19/18 at 13:00; Stop 12/22/18 at 14:16; Status DC Sevoflurane (Ultane) 30 ml STK-MED ONCE IH ; Start 12/19/18 at 12:49; Stop 12/19/18 at 12:49; Status DC Piperacillin Sod/ Tazobactam Sod 2.25 gm/Sodium Chloride 50 ml @ 100 mls/hr Q8HRS IV Last administered on 12/22/18at 13:56; Start 12/19/18 at 14:00; Stop 12/22/18 at 14:13; Status DC Vancomycin HCl 1.25 gm/Sodium Chloride 250 ml @ 167 mls/hr ONCE ONCE IV Last administered on 12/19/18at 14:51; Start 12/19/18 at 13:15; Stop 12/19/18 at 14:44; Status DC Vancomycin HCl (Vancomycin Random Level) 1 each 1X ONCE MC ; Start 12/21/18 at 06:00; Stop 12/21/18 at 06:02; Status DC Morphine Sulfate (Morphine Sulfate) 2 mg PRN Q2HR PRN IV SEVERE PAIN 7-10, 2nd CHOICE Last administered on 12/24/18at 07:14; Start 12/20/18 at 13:30 Diphenhydramine HCl (Benadryl) 25 mg PRN Q6HRS PRN PO ITCHING Last administered on 12/21/18at 16:59; Start 12/20/18 at 13:30 Morphine Sulfate (Morphine Sulfate) 2 mg PRN Q2HR PRN IV PAIN; Start 12/20/18 at 13:30; Status UNV Cefepime HCl (Maxipime) 1 gm Q24H IVP Last administered on 12/22/18at 11:15; Start 12/21/18 at 10:00 Vancomycin HCl 500 mg/Sodium Chloride 100 ml @ 100 mls/hr QMWF IV ; Start 12/21/18 at 16:00 Sodium Chloride 1,000 ml @ 1,000 mls/hr Q1H PRN IV hypotension; Start 12/21/18 at 11:00; Stop 12/21/18 at 16:59; Status DC Sodium Chloride 1,000 ml @ 400 mls/hr Q2H30M PRN IV PATENCY; Start 12/21/18 at 11:00; Stop 12/21/18 at 22:59; Status DC Info (PHARMACY MONITORING -- do not chart) 1 each PRN DAILY PRN MC SEE COMMENTS; Start 12/21/18 at 17:00; Status UNV Info (PHARMACY MONITORING -- do not chart) 1 each PRN DAILY PRN MC SEE CO MMENTS; Start 12/21/18 at 17:00; Status UNV Vancomycin HCl 1.25 gm/Sodium Chloride 250 ml @ 166.667 mls/hr 1X ONCE IV Last administered on 12/22/18at 15:21; Start 12/22/18 at 15:00; Stop 12/22/18 at 16:29; Status DC Vancomycin HCl (Vancomycin Random Level) 1 each 1X ONCE MC ; Start 12/24/18 at 06:00; Stop 12/24/18 at 06:01; Status DC Active Scripts Active Keflex (Cephalexin) 500 Mg Capsule 1 Cap PO TID Pinky-Shreya Tablet (Folic Acid/Vitamin B Comp W-C) 0.8 Mg Tablet 1 Tab PO DAILY Hydrocodone-Apap 10-325 (Hydrocodone Bit/Acetaminophen) 1 Tab Tablet 1 Tab PO PRN Q4HRS PRN [Darbepoetin Jarrett In Polysorbat] 60 MCG/0.3 ML Disp.syrin 60 Mcg SQ WEEKLYHS 30 Days Alprazolam 0.5 Mg Tablet 0.5 Mg PO PRN TID PRN MDD 1 Tylenol (Acetaminophen) 325 Mg Capsule 650 Mg PO Q6-8HRS PRN Zantac (Ranitidine Hcl) 300 Mg Tablet 1 Tab PO QHS Compazine (Prochlorperazine Maleate) 5 Mg Tablet 5 Mg PO PRN TID PRN 10 Days [Pantoprazole] 40 MG Tablet. 40 Mg PO DAILYAC 30 Days Reported Zoloft (Sertraline Hcl) 50 Mg Tablet 50 Mg PO DAILY Lisinopril 20 Mg Tablet 20 Mg PO DAILY Coreg (Carvedilol) 6.25 Mg Tablet 6.25 Mg PO BIDWMEALS Creon 6,000 Units Capsule (Lipase/Protease/Amylase) 1 Each Capsule. 1 Tab PO TID Proair Hfa (Albuterol Sulfate) 8.5 Gm Hfa.aer.ad 2 Puff INH BID PRN Levothyroxine Sodium 50 Mcg Tablet 1 Tab PO DAILY Clonidine Tts-2 (Clonidine) 1 Each Patch.tdwk 1 Patch TD WEEKLY Amlodipine Besylate 5 Mg Tablet 10 Mg PO DAILY Atorvastatin Calcium 40 Mg Tablet 40 Mg PO HS Latanoprost 2.5 Ml Drops 1 Drop EACHEYE HS Vitals/I & O Vital Sign - Last 24 Hours 12/23/18 12/23/18 12/23/18 12/23/18 08:51 08:54 09:21 09:54 Resp 28 28 18 18 O2 Delivery Room Air Room Air Room Air Room Air 12/23/18 12/23/18 12/23/18 12/23/18 10:53 11:23 13:20 13:50 Resp 18 20 30 16 O2 Delivery Room Air Room Air Room Air Room Air 12/23/18 12/23/18 12/23/18 12/23/18 15:49 15:50 16:12 16:20 Resp 22 22 18 Pulse Ox 94 O2 Delivery Room Air Room Air Room Air 12/23/18 12/23/18 12/23/18 12/23/18 16:49 18:19 18:49 19:00 Temp 97.6 97.6 Pulse 83 Resp 20 22 22 16 B/P (MAP) 129/29 (62) Pulse Ox 96 O2 Delivery Room Air Room Air Room Air Room Air 12/23/18 12/24/18 12/24/18 23:00 03:00 07:00 Temp 97.8 96.9 97.6 97.8 96.9 97.6 Pulse 78 83 82 Resp 16 16 17 B/P (MAP) 157/32 (73) 162/39 (80) 152/29 (70) Pulse Ox 100 93 94 O2 Delivery Room Air Room Air Room Air Intake and Output 12/23/18 12/23/18 12/24/18 15:00 23:00 07:00 Intake Total 1000 ml 500 ml Balance 1000 ml 500 ml SANGEETHA MUELLER MD Dec 24, 2018 08:42
[2018-12-24] MEDS: fentaNYL 12MCG/HR PATCH 1 PATCH PATCH.TD72 TD SCH (09:00)
[2018-12-24] MEDS: NICOTINE 21MG PATCH. TD SCH (09:00)
[2018-12-24] MEDS: LISINOPRIL 20 MG TABLET PO SCH (09:00)
[2018-12-24] MEDS: amLODIPine BESYLATE 10 MG TABLET PO SCH (09:00)
[2018-12-24 11:00] VITALS: BP_SYST 138; BP_SYST 182; BP_DIAS 67; BP_DIAS 82
[2018-12-24] MEDS: PANTOPRAZOLE 40 MG TABLET.DR. PO SCH (11:19)
[2018-12-24] MEDS: CLOPIDOGREL BISULFATE 75 MG TABLET PO SCH (11:19)
[2018-12-24] MEDS: CEFEPIME HCL IV Push 1 GM VIAL. IVP SCH (11:20)
[2018-12-24] MEDS: LACTOBACILLUS RHAMNOSUS GG 1 CAPSULE. PO SCH ×2 (11:20→22:09)
[2018-12-24] MEDS: SERTRALINE 50 MG TABLET. PO SCH (11:20)
[2018-12-24] MEDS: FOLIC/VIT B COMP W-C (RENAL) TABLET. PO SCH (11:20)
[2018-12-24] MEDS: VANCOMYCIN PER PHARMACY MC PRN (11:25)
--- NOTE | 2018-12-24 11:30 | NUR ---
Pharmacy Vancomycin Dosing Note S:Consulted to monitor and dose vancomycin started 12/19/18. O:OTTONIEL SMITH is a 58 year old F with Cellulitis NECROTIC FOOT WOUND S/P AMPUTATION . Height: 5 feet, 2 inches Weight: 55.928936 kg Tererro Body Weight: 50.10 Adjusted Body Weight: 51.66 Dosing Weight: Other Antibiotics: CEFEPIME 12/21 ZOSYN 12/19 - 12/22 LABS: Last BUN: 47 Last Creatinine: 5.3 Creatinine Clearance: HD MWF mL/min Last WBC: 13.2 Last Procalcitonin: Tmax (past 24 hours): 98.3 Microbiology: 12/19: 12/14 BCX NG I/O: Drug Levels: Last Random level: 20.0 on 12/24/18 at 1005 Last dose given 12/22/18 at 1521 Vancomycin Dosing: Loading Dose: x1 Dosing Weight: Target Trough: 10-20 A: Based on: THERAPEUTIC PRE-HD LEVEL, HD SCHEDULE (MW), P: 1. CONTINUE REGIMEN OF Vancomycin 500 mg IV AFTER DIALYSIS MO,CHI,FR INCLUDING TODAY 2. Follow up Random level NEEDED 3. Pharmacy will continue to monitor, follow and adjust therapy as needed. BERTHA BRICE Ermelinda, 12/24/18 [id number]
--- NOTE | 2018-12-24 11:35 | PDOC ---
Infectious Disease Note Subjective Subjective No fevers reported + loose stools Vital Sign Vital Signs Vital Signs Date Time Temp Pulse Resp B/P (MAP) Pulse Ox O2 Delivery O2 Flow Rate FiO2 12/24/18 07:00 97.6 82 17 152/29 (70) 94 Room Air 97.6 Physical Exam PHYSICAL EXAM GENERAL: Lying down with blanket over her head. EXTREMITIES: Right [id number] amputation stump well-approx w/ sutures. No redness/drainage. Left foot wound vac in place.- no swelling or warmth SKIN: Warm to touch NEUROLOGIC: Not very conversant In HD nml conj/OC/Op- clear LUNG - CTA CV: S1/S2 Abd: soft NT Labs Lab Laboratory Tests Test 12/23/18 12:13 12/23/18 20:42 12/24/18 07:11 12/24/18 10:05 Glucose (Fingerstick) 172 mg/dL (70-99) 185 mg/dL (70-99) 112 mg/dL (70-99) Random Vancomycin Level 20.0 mcg/mL Micro Microbiology 12/14/18 Blood Culture - Final, Complete NO GROWTH AFTER 5 DAYS Objective Assessment Left fourth toe open amputation and left fifth toe amp site I and D, 12/19. no cultures Severe peripheral arterial disease. Diabetes. Hypertension. End-stage renal disease, on hemodialysis. 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 Leukocytosis Plan Plan of Care Continue vanc and Cefepime with HD. Cefepime 2 gm with HD on and 3 gm on Monday/Vanc 500 mg with HD for 4 weeks min Random trough 20 Wound care with vac as directed Attending Co-Sign Attending Co-Sign The patient was seen and interviewed as well as examined at the bedside. The chart was reviewed. The case was discussed. Agree with the plan of care. GEOFFREY GUZMAN APRN Dec 24, 2018 11:35 YADIEL RIVAS MD Dec 24, 2018 16:27
[2018-12-24] MEDS ORDERED: IV NORMAL SALINE 1000ML BAG 1,000 ML IV PRN ×2 (13:37)
[2018-12-24] MEDS ORDERED: diphenhydrAMINE 50 MG/ML VIAL IV PRN ×2 (13:45)
[2018-12-24] MEDS ORDERED: ACETAMINOPHEN 500 MG TABLET PO PRN (13:45)
[2018-12-24] MEDS ORDERED: DIALYSIS PATIENT. MC PRN (13:45)
--- NOTE | 2018-12-24 14:53 | PDOC ---
SUBJECTIVE ROS Stable OBJECTIVE Vital Signs Vital Signs Date Time Temp Pulse Resp B/P (MAP) Pulse Ox O2 Delivery O2 Flow Rate FiO2 12/24/18 08:00 Room Air 12/24/18 07:00 97.6 82 17 152/29 (70) 94 97.6 I & 0 Intake and Output 12/24/18 06:59 Intake Total 1500 ml Balance 1500 ml Intake Oral 1500 ml # Voids 3 # Bowel Movements 5 PHYSICAL EXAM Physical Exam GENERAL NAD lungs CTA CV RRR EXTREMITIES: Right yxici-eus-bzhy amputation stump Left foot wound vac in place. SKIN: No rash DIAGNOSIS/ASSESSMENT Assessment & Plan ESRD - On HD MWF Chronic non compliance HD today Tolerating well, 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, Eddie Daniels ACcess- Permacath, Failed AVF AVG placed in September 2018 at [facility] - Left upper arm brachial artery to brachial vein arterial to venous graft placement using PTFE graft. Use per vascular Chronic severe Non compliance with Dialysis as OP as well during hospitalizations- leaves AMA Left fourth toe open amputation and left fifth toe amp site I and D, 12/19. 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 Diabetes w peripheral neuropathy Anemia - On ARLIN COMMENT/RELEVANT DATA Meds Current Medications Medications (Trade) Dose Ordered Sig/Clarence Start Time Stop Time Status Last Admin Dose Admin Acetaminophen (Tylenol) 500 mg 1X PRN PRN 12/24/18 13:45 12/25/18 13:44 Acetaminophen/ Hydrocodone Bitart (Lortab 10/325) 1 tab PRN Q6HRS PRN 12/15/18 09:15 12/24/18 07:14 1 TAB Albuterol Sulfate (Ventolin Neb Soln) 2.5 mg PRN BID PRN 12/14/18 09:00 Alprazolam (Xanax) 0.25 mg PRN DAILY PRN 12/16/18 09:00 12/23/18 02:41 0.25 MG Amlodipine Besylate (Norvasc) 10 mg DAILY 12/14/18 09:00 12/21/18 16:36 10 MG Amylase/Lipase/ Protease (Zenpep 5,000) 1 cap TIDWMEALS 12/14/18 09:00 12/24/18 11:20 1 CAP Atorvastatin Calcium (Lipitor) 40 mg HS 12/14/18 21:00 12/23/18 22:09 40 MG Carvedilol (Coreg) 6.25 mg BIDWMEALS 12/14/18 09:00 12/21/18 16:36 6.25 MG Cefazolin Sodium/ Dextrose 50 ml @ 100 mls/hr 1X ONCE 12/19/18 12:00 12/19/18 12:29 DC 12/19/18 12:17 100 MLS/HR Cefepime HCl (Maxipime) 1 gm Q24H 12/21/18 10:00 12/24/18 11:20 1 GM Cephalexin HCl (Keflex) 250 mg BID 12/16/18 21:00 12/19/18 18:41 DC 12/18/18 20:03 250 MG Clonidine HCl (Catapres Tts-2) 1 patch WEEKLY 12/14/18 09:00 12/21/18 09:47 1 PATCH Clopidogrel Bisulfate (Plavix) 75 mg DAILYWBKFT 12/14/18 10:00 12/24/18 11:19 75 MG Darbepoetin Jarrett (ARANESP for DIALYSIS PTS) 60 mcg WEEKLYHS 12/18/18 21:00 Dexamethasone Sodium Phosphate (Decadron) 4 mg STK-MED ONCE 12/19/18 12:04 12/19/18 12:05 DC Dextrose 250 ml PRN Q15MIN PRN 12/14/18 04:00 12/21/18 11:24 DC Dextrose (Dextrose 50%-Water Syringe) 12.5 gm PRN Q15MIN PRN 12/14/18 04:00 Diphenhydramine HCl (Benadryl) 25 mg 1X PRN PRN 12/24/18 13:45 12/25/18 13:44 Famotidine (Pepcid Vial) 20 mg 1X ONCE 12/14/18 01:30 12/14/18 01:32 DC 12/14/18 02:52 20 MG Famotidine (Pepcid) 20 mg QHS 12/14/18 21:00 Cancel Fentanyl (Duragesic 12mcg/ Hr Patch) 1 patch Q3DAYS 12/15/18 12:15 12/21/18 09:46 1 PATCH Fentanyl Citrate (Fentanyl 2ml Vial) 100 mcg STK-MED ONCE 12/19/18 12:36 12/19/18 12:36 DC Info (PHARMACY MONITORING -- do not chart) 1 each PRN DAILY PRN 12/24/18 13:45 Insulin Human Lispro (HumaLOG VIAL for OP,RR ONLY) 0-10 units PRN Q1HR PRN 12/19/18 12:15 12/20/18 12:14 DC Insulin Human Lispro (HumaLOG) 0-5 UNITS TIDWMEALS 12/14/18 08:00 12/23/18 08:58 3 UNITS Insulin Human Regular (HumuLIN R VIAL) 10 unit 1X ONCE 12/14/18 03:30 12/14/18 03:35 DC Lactobacillus Rhamnosus (Culturelle) 1 cap BID 12/17/18 21:00 12/24/18 11:20 1 CAP Latanoprost (Xalatan) 1 drop HS 12/14/18 21:00 12/21/18 22:44 1 DROP Levothyroxine Sodium (Synthroid) 50 mcg DAILY06 12/14/18 09:00 12/24/18 07:19 50 MCG Lidocaine HCl (Lidocaine Pf 2% Vial) 5 ml STK-MED ONCE 12/19/18 12:04 12/19/18 12:05 DC Lidocaine HCl (Xylocaine-Mpf 1% 2ml Vial) 2 ml PRN 1X PRN 12/19/18 10:30 12/19/18 20:00 DC Lisinopril (Prinivil) 20 mg DAILY 12/14/18 09:00 12/21/18 16:37 20 MG Morphine Sulfate (Morphine Sulfate) 2 mg PRN Q2HR PRN 12/20/18 13:30 UNV Mupirocin (Bactroban) 1 herber 1X ONCE 12/14/18 02:30 12/14/18 02:31 DC 12/14/18 02:52 1 HERBER Nicotine (Nicoderm Cq 21mg) 1 patch DAILY 12/15/18 12:00 12/17/18 14:16 1 PATCH Ondansetron HCl (Zofran Odt) 4 mg PRN Q6HRS PRN 12/15/18 12:15 12/18/18 20:03 4 MG Ondansetron HCl (Zofran) 4 mg STK-MED ONCE 12/19/18 12:04 12/19/18 12:05 DC Pantoprazole Sodium (Protonix) 40 mg DAILYAC 12/14/18 09:00 12/24/18 11:19 40 MG Piperacillin Sod/ Tazobactam Sod (Zosyn Per Pharmacy) 1 each PRN DAILY PRN 12/19/18 13:00 12/22/18 14:16 DC Piperacillin Sod/ Tazobactam Sod 2.25 gm/Sodium Chloride 50 ml @ 100 mls/hr Q8HRS 12/19/18 14:00 12/22/18 14:13 DC 12/22/18 13:56 100 MLS/HR Prochlorperazine Edisylate (Compazine) 5 mg PACU PRN PRN 12/19/18 10:30 12/19/18 20:00 DC 12/19/18 12:57 5 MG Prochlorperazine Maleate (Compazine) 5 mg PRN TID PRN 12/14/18 09:00 12/21/18 09:43 5 MG Propofol 20 ml @ As Directed STK-MED ONCE 12/19/18 12:04 12/19/18 12:05 DC Ringer's Solution 1,000 ml @ 30 mls/hr Q24H 12/19/18 10:18 12/19/18 12:23 DC Sertraline HCl (Zoloft) 50 mg DAILY 12/14/18 09:00 12/24/18 11:20 50 MG Sevoflurane (Ultane) 30 ml STK-MED ONCE 12/19/18 12:49 12/19/18 12:49 DC Sodium Chloride 1,000 ml @ 400 mls/hr Q2H30M PRN 12/24/18 13:37 12/25/18 01:36 Vancomycin HCl (Vanco Per Pharmacy) 1 each PRN DAILY PRN 12/19/18 13:00 12/24/18 11:25 1 EACH Vancomycin HCl (Vancomycin Random Level) 1 each 1X ONCE 12/24/18 06:00 12/24/18 06:01 DC Vancomycin HCl 1.25 gm/Sodium Chloride 250 ml @ 166.667 mls/hr 1X ONCE 12/22/18 15:00 12/22/18 16:29 DC 12/22/18 15:21 166.667 MLS/HR Vancomycin HCl 500 mg/Sodium Chloride 100 ml @ 100 mls/hr QMWF 12/21/18 16:00 Vitamin B Complex/ Vitamin C (Pinky-Shreya) 1 tab DAILY 12/14/18 09:00 12/24/18 11:20 1 TAB Zolpidem Tartrate (Ambien) 5 mg PRN QHS PRN 12/17/18 21:45 12/23/18 23:48 5 MG Lab Laboratory Tests Test 12/23/18 20:42 12/24/18 07:11 12/24/18 10:05 12/24/18 12:27 Glucose (Fingerstick) 185 mg/dL (70-99) 112 mg/dL (70-99) 144 mg/dL (70-99) Random Vancomycin Level 20.0 mcg/mL Results All relevant outside records, renal labs, imaging studies, telemetry/EKG's were reviewed. DOMINIQUE TSE MD Dec 24, 2018 14:52
[2018-12-24 15:00] VITALS: BP 182/67
--- NOTE | 2018-12-24 15:07 | PATHOLOGY ---
[facility] Accession Number: [id number] . 01 Material submitted: . toe - LEFT FOURTH TOE. Modifiers: left, fourth . 01 Clinical history: . Gangrene . 02 Diagnosis: Left fourth toe, amputation: - Gangrenous necrosis of toe with ulceration and acute cellulitis. - Bone of proximal amputation margin, negative for acute osteomyelitis. (JPM:mm; 12/21/2018) [facility] 12/24/2018 1216 Local . 02 Comment: There is no evidence of acute osteomyelitis. (JPM/db; 12/24/2018) . 02 Electronically signed: . Alberto Rios MD, Pathologist NPI- [id number] . 01 Gross description: . The specimen is received in formalin, labeled "Jenifer Salazar, left fourth toe". Received is an amputated digit measuring 7.9 x 2.6 x 2.2 cm in greatest dimensions. The bone margin is blunt in appearance, consistent with transection. The bone and soft tissue margins are inked black. The nail is present display in a light baez to light brown appearance. The epidermal surface is dusky ovalles-brown in appearance displaying a necrotic-appearing lesion during 3.4 x 2.1 cm. The specimen is submitted representatively as follows: . A1 advertising sales representative sections of the lesion to include underlying soft tissue A2 cross-section through bone margin, following decalcification. (CAA; 12/20/2018) . After initial microscopic examination, a advertising sales representative section of the lesion with underlying bone is submitted in cassette A3, following decalcification. (CAA; 12/21/2018) QAC/QAC 12/21/2018 1301 Local . 02 Pathologist provided ICD-10: L97.521 . 02 CPT . 690065, [id number] Specimen Comment: A courtesy copy of this report has been sent to Specimen Comment: [phone], , . Specimen Comment: Report sent to ,DR MUELLER / DR ZAMBRANO Performed at: 01 [facility] [address] [facility] [address], [place] [id number] MD Jamie Pinzon MD Phone: [phone] Performed at: 02 [facility] [address] [place], [place] [id number] MD Alberto Rios MD Phone: [phone]
--- NOTE | 2018-12-24 15:58 | NUR ---
SANTIAGO following pt. Spoke with COPYRIGHT CLERK for ID this morning regarding Rx for IV abx. COPYRIGHT CLERK would like Dr. Brambila to see pt later today. Pt has been having diarrhea and is being tested for Cidff. Updated Chandrika BURK and Nicole at [facility].
--- NOTE | 2018-12-24 16:42 | NUR ---
Wound Care Wound care consult for left foot open amp site of 4th and 5th toes. Removed dressing and applied wound vac with davila foam at 125 mmHg continuous pressure. Pt able to tolerate vac application and is agreeable to having a home vac when she leaves. Vac application is still pending approval. WC will return for vac dressing change or if pt is being discharged.
[2018-12-24 19:00] VITALS: BP 141/79
[2018-12-24] MEDS: VANCOMYCIN 500 MG in IV NORMAL SALINE 100ML 100 ML IV SCH (19:44)
[2018-12-24] MEDS: ATORVASTATIN CALCIUM 40 MG TABLET. PO SCH (22:08)
[2018-12-24] MEDS: LATANOPROST 0.005% OPHTH SOLUTION 2.5ML BOTTLE. OU SCH (22:10)
[2018-12-24] MEDS: ZOLPIDEM 5 MG TABLET. PO PRN (22:16)
[2018-12-25] MEDS: MORPHINE SULFATE 2 MG/ML VIAL. IV PRN ×4 (00:22→08:36)
[2018-12-25] MEDS: ONDANSETRON ODT 4 MG TAB.RAPDIS. PO PRN ×2 (02:42→13:07)
[2018-12-25 03:00] VITALS: BP 159/60
[2018-12-25 04:13] LABS: BASO # 0.1 x10^3/uL (0.0-0.2); BASO % 1 % (0-3); EOS # 0.1 x10^3/uL (0.0-0.7); EOS % 1 % (0-3); HEMOGLOBIN 8.7 g/dL (12.0-15.5); LYMPH # 1.1 x10^3/uL (1.0-4.8); LYMPH % 11 % (24-48); MEAN CORPUSCULAR HEMOGLOBIN 29 pg (25-35); MEAN CORPUSCULAR HGB CONC 33 g/dL (31-37); MEAN CORPUSCULAR VOLUME 88 fL (79-100); MONO # 0.8 x10^3/uL (0.0-1.1); MONO % 8 % (0-9); NEUT # 8.3 x10^3/uL (1.8-7.7); NEUT % 80 % (31-73); PLATELET COUNT 311 x10^3/uL (140-400); RED BLOOD COUNT 2.96 x10^6/uL (3.50-5.40); RED CELL DISTRIBUTION WIDTH 17.5 % (11.5-14.5); WHITE BLOOD COUNT 10.4 x10^3/uL (4.0-11.0)
[2018-12-25 04:59] LABS: ALBUMIN 2.3 g/dL (3.4-5.0); ALBUMIN/GLOBULIN RATIO 0.5 (1.0-1.7); CALCIUM 9.6 mg/dL (8.5-10.1); CREATININE 3.7 mg/dL (0.6-1.0); GFR 15.3; POTASSIUM 4.9 mmol/L (3.5-5.1); TOTAL BILIRUBIN 0.4 mg/dL (0.2-1.0); TOTAL PROTEIN 7.2 g/dL (6.4-8.2)
[2018-12-25] MEDS: LEVOTHYROXINE 50 MCG TABLET PO SCH (05:44)
[2018-12-25 07:00] VITALS: BP 150/63
[2018-12-25] MEDS: INSULIN LISPRO 300 UNITS/3 ML VIAL. SQ SCH ×3 (08:00→17:00)
--- NOTE | 2018-12-25 08:17 | PDOC ---
PROGRESS NOTES Chief Complaint Chief Complaint A/P: Nausea and vomiting Diarrhea s/p left 4th toe amputation s/p RT BKA, HTN urgency - resolved ESRD - on HD Anemia of ESRD Hypothyroidism - on replacement therapy Left 5th digit amputation - s/p 5th left toe revision - Dyslipidemia on meds PAD - Diffuse moderate to advanced atherosclerotic plaque in the lower activity arteries with moderate stenosis in the mid SFA, mild to moderate stenosis in the popliteal artery. Nonvisualization of flow in the distal [employer] suggests occlusion, age indeterminate. Anxiety, depression - sec to med illness mod to severe pcm 29 min pt exam, chart review, > 50% of time spent with exam, chart review, pt care coordination History of Present Illness History of Present Illness Was admitted after leaving [facility] from [facility] This admission, vasc sx fixed her 4th toe and revised the 5th toe amputation Unpleasant affect, mood. She is c/o nausea and loose bowels, she vomits significantly in front of me. Still on iv abx per iD vanc q 12 hrs go home with HH - once okayed by ID PLAN: DNR F/u stool culture and c. diff Continue vanc and Cefepime with HD. Cefepime 2 gm with HD on and 3 gm on Monday/Vanc 500 mg with HD for 4 weeks min wound vac iv antibiotics Vitals Vitals Vital Signs Date Time Temp Pulse Resp B/P (MAP) Pulse Ox O2 Delivery O2 Flow Rate FiO2 12/25/18 06:15 98 Room Air 2.0 12/25/18 03:00 98.1 98 18 159/60 (93) 98.1 Physical Exam Physical Exam GENERAL: Lying down with blanket over her head. EXTREMITIES: Right [id number] amputation stump well-approx w/ sutures. No redness/drainage. Left foot wound vac in place.- no swelling or warmth SKIN: Warm to touch NEUROLOGIC: Not very conversant In HD nml conj/OC/Op- clear LUNG - CTA CV: S1/S2 Abd: soft NT General: Alert, Oriented X3, Cooperative, No acute distress Heart: Regular rate, Normal S1, Normal S2 Lungs: Clear Abdomen: Normal bowel sounds, Soft, No tenderness Extremities: No clubbing, No cyanosis, Normal pulses Skin: Other (bka stump, wound dressing, amputated toes wound vac) Labs LABS Laboratory Tests Test 12/24/18 10:05 12/24/18 12:27 12/24/18 17:21 12/24/18 21:11 Random Vancomycin Level 20.0 mcg/mL Glucose (Fingerstick) 144 mg/dL (70-99) 129 mg/dL (70-99) 150 mg/dL (70-99) Test 12/25/18 02:33 White Blood Count 10.4 x10^3/uL (4.0-11.0) Red Blood Count 2.96 x10^6/uL (3.50-5.40) Hemoglobin 8.7 g/dL (12.0-15.5) Hematocrit 26.0 % (36.0-47.0) Mean Corpuscular Volume 88 fL (79-100) Mean Corpuscular Hemoglobin 29 pg (25-35) Mean Corpuscular Hemoglobin Concent 33 g/dL (31-37) Red Cell Distribution Width 17.5 % (11.5-14.5) Platelet Count 311 x10^3/uL (140-400) Neutrophils (%) (Auto) 80 % (31-73) Lymphocytes (%) (Auto) 11 % (24-48) Monocytes (%) (Auto) 8 % (0-9) Eosinophils (%) (Auto) 1 % (0-3) Basophils (%) (Auto) 1 % (0-3) Neutrophils # (Auto) 8.3 x10^3/uL (1.8-7.7) Lymphocytes # (Auto) 1.1 x10^3/uL (1.0-4.8) Monocytes # (Auto) 0.8 x10^3/uL (0.0-1.1) Eosinophils # (Auto) 0.1 x10^3/uL (0.0-0.7) Basophils # (Auto) 0.1 x10^3/uL (0.0-0.2) Sodium Level 139 mmol/L (136-145) Potassium Level 4.9 mmol/L (3.5-5.1) Chloride Level 99 mmol/L (98-107) Carbon Dioxide Level 31 mmol/L (21-32) Anion Gap 9 (6-14) Blood Urea Nitrogen 26 mg/dL (7-20) Creatinine 3.7 mg/dL (0.6-1.0) Estimated GFR (Cockcroft-Gault) 15.3 BUN/Creatinine Ratio 7 (6-20) Glucose Level 144 mg/dL (70-99) Calcium Level 9.6 mg/dL (8.5-10.1) Total Bilirubin 0.4 mg/dL (0.2-1.0) Aspartate Amino Transf (AST/SGOT) 30 U/L (15-37) Alanine Aminotransferase (ALT/SGPT) 7 U/L (14-59) Alkaline Phosphatase 86 U/L (46-116) Total Protein 7.2 g/dL (6.4-8.2) Albumin 2.3 g/dL (3.4-5.0) Albumin/Globulin Ratio 0.5 (1.0-1.7) Assessment and Plan Assessmemt and Plan Problems Medical Problems: (1) Anemia Status: Chronic (2) Diabetic peripheral neuropathy associated with type 2 diabetes mellitus Status: Chronic (3) ESRD on hemodialysis Status: Chronic (4) Fall Status: Acute (5) Hyperglycemia Status: Acute (6) Hyperkalemia Status: Acute (7) PAD (peripheral artery disease) Status: Chronic Comment Review of Relevant I have reviewed the following items pamela (where applicable) has been applied. Labs Laboratory Tests Test 12/23/18 12:13 12/23/18 20:42 12/24/18 07:11 12/24/18 10:05 Glucose (Fingerstick) 172 mg/dL (70-99) 185 mg/dL (70-99) 112 mg/dL (70-99) Random Vancomycin Level 20.0 mcg/mL Test 12/24/18 12:27 12/24/18 17:21 12/24/18 21:11 12/25/18 02:33 Glucose (Fingerstick) 144 mg/dL (70-99) 129 mg/dL (70-99) 150 mg/dL (70-99) White Blood Count 10.4 x10^3/uL (4.0-11.0) Red Blood Count 2.96 x10^6/uL (3.50-5.40) Hemoglobin 8.7 g/dL (12.0-15.5) Hematocrit 26.0 % (36.0-47.0) Mean Corpuscular Volume 88 fL (79-100) Mean Corpuscular Hemoglobin 29 pg (25-35) Mean Corpuscular Hemoglobin Concent 33 g/dL (31-37) Red Cell Distribution Width 17.5 % (11.5-14.5) Platelet Count 311 x10^3/uL (140-400) Neutrophils (%) (Auto) 80 % (31-73) Lymphocytes (%) (Auto) 11 % (24-48) Monocytes (%) (Auto) 8 % (0-9) Eosinophils (%) (Auto) 1 % (0-3) Basophils (%) (Auto) 1 % (0-3) Neutrophils # (Auto) 8.3 x10^3/uL (1.8-7.7) Lymphocytes # (Auto) 1.1 x10^3/uL (1.0-4.8) Monocytes # (Auto) 0.8 x10^3/uL (0.0-1.1) Eosinophils # (Auto) 0.1 x10^3/uL (0.0-0.7) Basophils # (Auto) 0.1 x10^3/uL (0.0-0.2) Sodium Level 139 mmol/L (136-145) Potassium Level 4.9 mmol/L (3.5-5.1) Chloride Level 99 mmol/L (98-107) Carbon Dioxide Level 31 mmol/L (21-32) Anion Gap 9 (6-14) Blood Urea Nitrogen 26 mg/dL (7-20) Creatinine 3.7 mg/dL (0.6-1.0) Estimated GFR (Cockcroft-Gault) 15.3 BUN/Creatinine Ratio 7 (6-20) Glucose Level 144 mg/dL (70-99) Calcium Level 9.6 mg/dL (8.5-10.1) Total Bilirubin 0.4 mg/dL (0.2-1.0) Aspartate Amino Transf (AST/SGOT) 30 U/L (15-37) Alanine Aminotransferase (ALT/SGPT) 7 U/L (14-59) Alkaline Phosphatase 86 U/L (46-116) Total Protein 7.2 g/dL (6.4-8.2) Albumin 2.3 g/dL (3.4-5.0) Albumin/Globulin Ratio 0.5 (1.0-1.7) Laboratory Tests Test 12/24/18 10:05 12/24/18 12:27 12/24/18 17:21 12/24/18 21:11 Random Vancomycin Level 20.0 mcg/mL Glucose (Fingerstick) 144 mg/dL (70-99) 129 mg/dL (70-99) 150 mg/dL (70-99) Test 12/25/18 02:33 White Blood Count 10.4 x10^3/uL (4.0-11.0) Red Blood Count 2.96 x10^6/uL (3.50-5.40) Hemoglobin 8.7 g/dL (12.0-15.5) Hematocrit 26.0 % (36.0-47.0) Mean Corpuscular Volume 88 fL (79-100) Mean Corpuscular Hemoglobin 29 pg (25-35) Mean Corpuscular Hemoglobin Concent 33 g/dL (31-37) Red Cell Distribution Width 17.5 % (11.5-14.5) Platelet Count 311 x10^3/uL (140-400) Neutrophils (%) (Auto) 80 % (31-73) Lymphocytes (%) (Auto) 11 % (24-48) Monocytes (%) (Auto) 8 % (0-9) Eosinophils (%) (Auto) 1 % (0-3) Basophils (%) (Auto) 1 % (0-3) Neutrophils # (Auto) 8.3 x10^3/uL (1.8-7.7) Lymphocytes # (Auto) 1.1 x10^3/uL (1.0-4.8) Monocytes # (Auto) 0.8 x10^3/uL (0.0-1.1) Eosinophils # (Auto) 0.1 x10^3/uL (0.0-0.7) Basophils # (Auto) 0.1 x10^3/uL (0.0-0.2) Sodium Level 139 mmol/L (136-145) Potassium Level 4.9 mmol/L (3.5-5.1) Chloride Level 99 mmol/L (98-107) Carbon Dioxide Level 31 mmol/L (21-32) Anion Gap 9 (6-14) Blood Urea Nitrogen 26 mg/dL (7-20) Creatinine 3.7 mg/dL (0.6-1.0) Estimated GFR (Cockcroft-Gault) 15.3 BUN/Creatinine Ratio 7 (6-20) Glucose Level 144 mg/dL (70-99) Calcium Level 9.6 mg/dL (8.5-10.1) Total Bilirubin 0.4 mg/dL (0.2-1.0) Aspartate Amino Transf (AST/SGOT) 30 U/L (15-37) Alanine Aminotransferase (ALT/SGPT) 7 U/L (14-59) Alkaline Phosphatase 86 U/L (46-116) Total Protein 7.2 g/dL (6.4-8.2) Albumin 2.3 g/dL (3.4-5.0) Albumin/Globulin Ratio 0.5 (1.0-1.7) Microbiology 12/14/18 Blood Culture - Final, Complete NO GROWTH AFTER 5 DAYS Medications Current Medications Fentanyl Citrate (Fentanyl 2ml Vial) 50 mcg 1X ONCE IV Last administered on 12/14/18at 02:52; Start 12/14/18 at 01:30; Stop 12/14/18 at 01:32; Status DC Ondansetron HCl (Zofran) 4 mg 1X ONCE IV Last administered on 12/14/18at 02:52; Start 12/14/18 at 01:30; Stop 12/14/18 at 01:32; Status DC Famotidine (Pepcid Vial) 20 mg 1X ONCE IVP Last administered on 12/14/18at 02:52; Start 12/14/18 at 01:30; Stop 12/14/18 at 01:32; Status DC Mupirocin (Bactroban) 1 herber 1X ONCE TP Last administered on 12/14/18at 02:52; Start 12/14/18 at 01:45; Stop 12/14/18 at 01:46; Status DC Mupirocin (Bactroban) 1 herber 1X ONCE TP Last administered on 12/14/18at 02:52; Start 12/14/18 at 02:30; Stop 12/14/18 at 02:31; Status DC Insulin Human Regular (HumuLIN R VIAL) 10 unit 1X ONCE IV ; Start 12/14/18 at 03:30; Stop 12/14/18 at 03:35; Status DC Ondansetron HCl (Zofran) 4 mg PRN Q8HRS PRN IV NAUSEA/VOMITING Last administered on 12/15/18at 00:08; Start 12/14/18 at 04:00; Stop 12/15/18 at 03:59; Status DC Fentanyl Citrate (Fentanyl 2ml Vial) 50 mcg PRN Q2HR PRN IV PAIN Last administered on 12/14/18at 09:00; Start 12/14/18 at 04:00; Stop 12/14/18 at 09:05; Status DC Insulin Human Lispro (HumaLOG) 0-5 UNITS TIDWMEALS SQ Last administered on 12/23at 08:58; Start 12/14/18 at 08:00 Dextrose (Dextrose 50%-Water Syringe) 12.5 gm PRN Q15MIN PRN IV SEE COMMENTS; Start 12/14/18 at 04:00 Dextrose 250 ml PRN Q15MIN PRN IV SEE COMMENTS; Start 12/14/18 at 04:00; Stop 12/21/18 at 11:24; Status DC Albuterol Sulfate (Ventolin Neb Soln) 2.5 mg PRN BID PRN INH SHORTNESS OF BREATH; Start 12/14/18 at 09:00 Alprazolam (Xanax) 0.5 mg PRN TID PRN PO ANXIETY / AGITATION; Start 12/14/18 at 09:00; Stop 12/15/18 at 09:03; Status DC Amlodipine Besylate (Norvasc) 10 mg DAILY PO Last administered on 12/21/18 16:36; Start 12/14/18 at 09:00 Atorvastatin Calcium (Lipitor) 40 mg HS PO Last administered on 12/24/18at 22:08; Start 12/14/18 at 21:00 Carvedilol (Coreg) 6.25 mg BIDWMEALS PO Last administered on 12/21/18at 16:36; Start 12/14/18 at 09:00 Clonidine HCl (Catapres Tts-2) 1 patch WEEKLY TD Last administered on 12/21/18 09:47; Start 12/14/18 at 09:00 Vitamin B Complex/ Vitamin C (Pinky-Shreya) 1 tab DAILY PO Last administered on 12/24/18at 11:20; Start 12/14/18 at 09:00 Acetaminophen/ Hydrocodone Bitart (Lortab 10/325) 1 tab PRN Q4HRS PRN PO MODERATE TO SEVERE PAIN Last administered on 12/15/18at 08:05; Start 12/14/18 at 09:00; Stop 12/15/18 at 09:03; Status DC Latanoprost (Xalatan) 1 drop HS OU Last administered on 12/24/18 22:10; Start 12/14/18 at 21:00 Levothyroxine Sodium (Synthroid) 50 mcg DAILY06 PO Last administered on 12/25/18 05:44; Start 12/14/18 at 09:00 Lisinopril (Prinivil) 20 mg DAILY PO Last administered on 12/21/18 16:37; Start 12/14/18 at 09:00 Prochlorperazine Maleate (Compazine) 5 mg PRN TID PRN PO NAUSEA 2ND CHOICE Last administered on 12/21/18 09:43; Start 12/14/18 at 09:00 Sertraline HCl (Zoloft) 50 mg DAILY PO Last administered on 12/24/18 11:20; Start 12/14/18 at 09:00 Acetaminophen (Tylenol) 650 mg PRN Q6HRS PRN PO MILD PAIN / TEMP; Start 12/14/18 at 09:00 Cephalexin HCl (Keflex) 500 mg TID PO Last administered on 12/16/18 14:07; Start 12/14/18 at 09:00; Stop 12/16/18 at 15:12; Status DC Amylase/Lipase/ Protease (Zenpep 5,000) 1 cap TIDWMEALS PO Last administered on 12/24/18 11:20; Start 12/14/18 at 09:00 Famotidine (Pepcid) 20 mg QHS PO ; Start 12/14/18 at 21:00; Status Cancel Pantoprazole Sodium (Protonix) 40 mg DAILYAC PO Last administered on 12/24/18 11:19; Start 12/14/18 at 09:00 Fentanyl Citrate (Fentanyl 2ml Vial) 75 mcg PRN Q2HR PRN IV PAIN Last administered on 12/14/18 11:20; Start 12/14/18 at 09:15; Stop 12/15/18 at 09:03; Status DC Clopidogrel Bisulfate (Plavix) 75 mg DAILYWBKFT PO Last administered on 12/24/18 11:19; Start 12/14/18 at 10:00 Sodium Chloride 1,000 ml @ 1,000 mls/hr Q1H PRN IV hypotension; Start 12/14/18 at 09:38; Stop 12/14/18 at 15:37; Status DC Acetaminophen (Tylenol) 500 mg 1X PRN PRN PO MILD PAIN / TEMP; Start 12/14/18 at 09:45; Stop 12/15/18 at 09:44; Status DC Diphenhydramine HCl (Benadryl) 25 mg 1X PRN PRN IV ITCHING; Start 12/14/18 at 09:45; Stop 12/15/18 at 09:44; Status DC Diphenhydramine HCl (Benadryl) 25 mg 1X PRN PRN IV ITCHING; Start 12/14/18 at 09:45; Stop 12/15/18 at 09:44; Status DC Sodium Chloride 1,000 ml @ 400 mls/hr Q2H30M PRN IV PATENCY; Start 12/14/18 at 09:38; Stop 12/14/18 at 21:37; Status DC Info (PHARMACY MONITORING -- do not chart) 1 each PRN DAILY PRN MC SEE COMMENTS; Start 12/14/18 at 09:45; Status Cancel Alprazolam (Xanax) 0.25 mg PRN DAILY PRN PO ANXIETY / AGITATION Last administered on 12/23/18at 02:41; Start 12/16/18 at 09:00 Fentanyl Citrate (Fentanyl 2ml Vial) 75 mcg PRN Q4HRS PRN IV PAIN Last administered on 12/16/18at 03:26; Start 12/15/18 at 09:15; Stop 12/16/18 at 10:26; Status DC Acetaminophen/ Hydrocodone Bitart (Lortab 10/325) 1 tab PRN Q6HRS PRN PO MODERATE TO SEVERE PAIN Last administered on 12/24/18at 07:14; Start 12/15/18 at 09:15 Nicotine (Nicoderm Cq 21mg) 1 patch DAILY TD Last administered on 12/17/18at 14:16; Start 12/15/18 at 12:00 Fentanyl (Duragesic 12mcg/ Hr Patch) 1 patch Q3DAYS TD Last administered on 12/21/18at 09:46; Start 12/15/18 at 12:15 Ondansetron HCl (Zofran Odt) 4 mg PRN Q6HRS PRN PO NAUSEA/VOMITING 1ST CHOICE Last administered on 12/25/18at 02:42; Start 12/15/18 at 12:15 Fentanyl Citrate (Fentanyl 2ml Vial) 75 mcg PRN BID PRN IV SEVERE PAIN, 1st CHOICE Last administered on 12/21/18at 17:00; Start 12/16/18 at 14:00 Cephalexin HCl (Keflex) 250 mg BID PO Last administered on 12/18/18at 20:03; Start 12/16/18 at 21:00; Stop 12/19/18 at 18:41; Status DC Sodium Chloride 1,000 ml @ 1,000 mls/hr Q1H PRN IV hypotension; Start 12/17/18 at 08:23; Stop 12/17/18 at 14:22; Status DC Acetaminophen (Tylenol) 500 mg 1X PRN PRN PO MILD PAIN / TEMP; Start 12/17/18 at 08:30; Stop 12/18/18 at 08:29; Status DC Diphenhydramine HCl (Benadryl) 25 mg 1X PRN PRN IV ITCHING; Start 12/17/18 at 08:30; Stop 12/18/18 at 08:29; Status DC Diphenhydramine HCl (Benadryl) 25 mg 1X PRN PRN IV ITCHING; Start 12/17/18 at 08:30; Stop 12/18/18 at 08:29; Status DC Sodium Chloride 1,000 ml @ 400 mls/hr Q2H30M PRN IV PATENCY; Start 12/17/18 at 08:23; Stop 12/17/18 at 20:22; Status DC Info (PHARMACY MONITORING -- do not chart) 1 each PRN DAILY PRN MC SEE COMMENTS; Start 12/17/18 at 08:30; Status Cancel Lactobacillus Rhamnosus (Culturelle) 1 cap BID PO Last administered on 12/24/18at 22:09; Start 12/17/18 at 21:00 Zolpidem Tartrate (Ambien) 5 mg PRN QHS PRN PO INSOMNIA, MAY REPEAT IN 1HR Last administered on 12/24/18at 22:16; Start 12/17/18 at 21:45 Darbepoetin Jarrett (ARANESP for DIALYSIS PTS) 60 mcg WEEKLYHS SQ ; Start 12/18/18 at 21:00 Sodium Chloride 1,000 ml @ 1,000 mls/hr Q1H PRN IV hypotension; Start 12/19/18 at 07:43; Stop 12/19/18 at 13:42; Status DC Acetaminophen (Tylenol) 500 mg 1X PRN PRN PO MILD PAIN / TEMP; Start 12/19/18 at 07:45; Stop 12/20/18 at 07:44; Status DC Diphenhydramine HCl (Benadryl) 25 mg 1X PRN PRN IV ITCHING; Start 12/19/18 at 07:45; Stop 12/20/18 at 07:44; Status DC Diphenhydramine HCl (Benadryl) 25 mg 1X PRN PRN IV ITCHING; Start 12/19/18 at 07:45; Stop 12/20/18 at 07:44; Status DC Sodium Chloride 1,000 ml @ 400 mls/hr Q2H30M PRN IV PATENCY; Start 12/19/18 at 07:43; Stop 12/19/18 at 19:42; Status DC Info (PHARMACY MONITORING -- do not chart) 1 each PRN DAILY PRN MC SEE COMMENTS; Start 12/19/18 at 07:45; Stop 12/24/18 at 13:41; Status DC Ondansetron HCl (Zofran) 4 mg 1X STAT IV Last administered on 12/19/18at 09:34; Start 12/19/18 at 09:25; Stop 12/19/18 at 09:29; Status DC Ondansetron HCl (Zofran) 4 mg 1X ONCE IV Last administered on 12/19/18at 10:18; Start 12/19/18 at 10:15; Stop 12/19/18 at 10:16; Status DC Ondansetron HCl (Zofran) 4 mg PRN Q6HRS PRN IV NAUSEA/VOMITING; Start 12/19/18 at 10:30; Stop 12/20/18 at 10:29; Status DC Fentanyl Citrate (Fentanyl 2ml Vial) 25 mcg PRN Q5MIN PRN IV MILD PAIN 1-3; Start 12/19/18 at 10:30; Stop 12/19/18 at 20:00; Status DC Fentanyl Citrate (Fentanyl 2ml Vial) 50 mcg PRN Q5MIN PRN IV MODERATE TO SEVERE PAIN Last administered on 12/19/18at 13:37; Start 12/19/18 at 10:30; Stop 12/19/18 at 20:00; Status DC Ringer's Solution 1,000 ml @ 30 mls/hr Q24H IV ; Start 12/19/18 at 10:18; Stop 12/19/18 at 12:23; Status DC Lidocaine HCl (Xylocaine-Mpf 1% 2ml Vial) 2 ml PRN 1X PRN ID PRIOR TO IV START; Start 12/19/18 at 10:30; Stop 12/19/18 at 20:00; Status DC Prochlorperazine Edisylate (Compazine) 5 mg PACU PRN PRN IV NAUSEA, MRX1 Last administered on 12/19/18at 12:57; Start 12/19/18 at 10:30; Stop 12/19/18 at 20:00; Status DC Cefazolin Sodium/ Dextrose 50 ml @ 100 mls/hr 1X ONCE IV Last administered on 12/19/18at 12:17; Start 12/19/18 at 12:00; Stop 12/19/18 at 12:29; Status DC Propofol 20 ml @ As Directed STK-MED ONCE IV ; Start 12/19/18 at 12:04; Stop 12/19/18 at 12:05; Status DC Dexamethasone Sodium Phosphate (Decadron) 4 mg STK-MED ONCE .ROUTE ; Start 12/19/18 at 12:04; Stop 12/19/18 at 12:05; Status DC Lidocaine HCl (Lidocaine Pf 2% Vial) 5 ml STK-MED ONCE .ROUTE ; Start 12/19/18 at 12:04; Stop 12/19/18 at 12:05; Status DC Ondansetron HCl (Zofran) 4 mg STK-MED ONCE .ROUTE ; Start 12/19/18 at 12:04; Stop 12/19/18 at 12:05; Status DC Insulin Human Lispro (HumaLOG VIAL for OP,RR ONLY) 0-10 units PRN Q1HR PRN SQ PER PROTOCOL; Start 12/19/18 at 12:15; Stop 12/20/18 at 12:14; Status DC Sodium Chloride 1,000 ml @ 30 mls/hr Q24H IV Last administered on 12/19/18at 12:10; Start 12/19/18 at 12:30; Stop 12/22/18 at 14:25; Status DC Fentanyl Citrate (Fentanyl 2ml Vial) 100 mcg STK-MED ONCE .ROUTE ; Start 12/19/18 at 12:36; Stop 12/19/18 at 12:36; Status DC Vancomycin HCl (Vanco Per Pharmacy) 1 each PRN DAILY PRN MC SEE COMMENTS Last administered on 12/24/18at 11:25; Start 12/19/18 at 13:00 Piperacillin Sod/ Tazobactam Sod (Zosyn Per Pharmacy) 1 each PRN DAILY PRN MC SEE COMMENTS; Start 12/19/18 at 13:00; Stop 12/22/18 at 14:16; Status DC Sevoflurane (Ultane) 30 ml STK-MED ONCE IH ; Start 12/19/18 at 12:49; Stop 12/19/18 at 12:49; Status DC Piperacillin Sod/ Tazobactam Sod 2.25 gm/Sodium Chloride 50 ml @ 100 mls/hr Q8HRS IV Last administered on 12/22/18at 13:56; Start 12/19/18 at 14:00; Stop 12/22/18 at 14:13; Status DC Vancomycin HCl 1.25 gm/Sodium Chloride 250 ml @ 167 mls/hr ONCE ONCE IV Last administered on 12/19/18at 14:51; Start 12/19/18 at 13:15; Stop 12/19/18 at 14:44; Status DC Vancomycin HCl (Vancomycin Random Level) 1 each 1X ONCE MC ; Start 12/21/18 at 06:00; Stop 12/21/18 at 06:02; Status DC Morphine Sulfate (Morphine Sulfate) 2 mg PRN Q2HR PRN IV SEVERE PAIN 7-10, 2nd CHOICE Last administered on 12/25/18at 05:45; Start 12/20/18 at 13:30 Diphenhydramine HCl (Benadryl) 25 mg PRN Q6HRS PRN PO ITCHING Last administered on 12/21/18at 16:59; Start 12/20/18 at 13:30 Morphine Sulfate (Morphine Sulfate) 2 mg PRN Q2HR PRN IV PAIN; Start 12/20/18 at 13:30; Status UNV Cefepime HCl (Maxipime) 1 gm Q24H IVP Last administered on 12/24/18at 11:20; Start 12/21/18 at 10:00 Vancomycin HCl 500 mg/Sodium Chloride 100 ml @ 100 mls/hr QMWF IV Last administered on 12/24/18at 19:44; Start 12/21/18 at 16:00 Sodium Chloride 1,000 ml @ 1,000 mls/hr Q1H PRN IV hypotension; Start 12/21/18 at 11:00; Stop 12/21/18 at 16:59; Status DC Sodium Chloride 1,000 ml @ 400 mls/hr Q2H30M PRN IV PATENCY; Start 12/21/18 at 11:00; Stop 12/21/18 at 22:59; Status DC Info (PHARMACY MONITORING -- do not chart) 1 each PRN DAILY PRN MC SEE COMMENTS; Start 12/21/18 at 17:00; Status UNV Info (PHARMACY MONITORING -- do not chart) 1 each PRN DAILY PRN MC SEE COMMENTS; Start 12/21/18 at 17:00; Status UNV Vancomycin HCl 1.25 gm/Sodium Chloride 250 ml @ 166.667 mls/hr 1X ONCE IV Last administered on 12/22/18at 15:21; Start 12/22/18 at 15:00; Stop 12/22/18 at 16:29; Status DC Vancomycin HCl (Vancomycin Random Level) 1 each 1X ONCE MC ; Start 12/24/18 at 06:00; Stop 12/24/18 at 06:01; Status DC Sodium Chloride 1,000 ml @ 1,000 mls/hr Q1H PRN IV hypotension; Start 12/24/18 at 13:37; Stop 12/24/18 at 19:36; Status DC Acetaminophen (Tylenol) 500 mg 1X PRN PRN PO MILD PAIN / TEMP; Start 12/24/18 at 13:45; Stop 12/25/18 at 13:44 Diphenhydramine HCl (Benadryl) 25 mg 1X PRN PRN IV ITCHING; Start 12/24/18 at 13:45; Stop 12/25/18 at 13:44 Diphenhydramine HCl (Benadryl) 25 mg 1X PRN PRN IV ITCHING; Start 12/24/18 at 13:45; Stop 12/25/18 at 13:44 Sodium Chloride 1,000 ml @ 400 mls/hr Q2H30M PRN IV PATENCY; Start 12/24/18 at 13:37; Stop 12/25/18 at 01:36; Status DC Info (PHARMACY MONITORING -- do not chart) 1 each PRN DAILY PRN MC SEE COMMENTS; Start 12/24/18 at 13:45 Active Scripts Active Keflex (Cephalexin) 500 Mg Capsule 1 Cap PO TID Pinky-Shreya Tablet (Folic Acid/Vitamin B Comp W-C) 0.8 Mg Tablet 1 Tab PO DAILY Hydrocodone-Apap 10-325 (Hydrocodone Bit/Acetaminophen) 1 Tab Tablet 1 Tab PO PRN Q4HRS PRN [Darbepoetin Jarrett In Polysorbat] 60 MCG/0.3 ML Disp.syrin 60 Mcg SQ WEEKLYHS 30 Days Alprazolam 0.5 Mg Tablet 0.5 Mg PO PRN TID PRN MDD 1 Tylenol (Acetaminophen) 325 Mg Capsule 650 Mg PO Q6-8HRS PRN Zantac (Ranitidine Hcl) 300 Mg Tablet 1 Tab PO QHS Compazine (Prochlorperazine Maleate) 5 Mg Tablet 5 Mg PO PRN TID PRN 10 Days [Pantoprazole] 40 MG Tablet. 40 Mg PO DAILYAC 30 Days Reported Zoloft (Sertraline Hcl) 50 Mg Tablet 50 Mg PO DAILY Lisinopril 20 Mg Tablet 20 Mg PO DAILY Coreg (Carvedilol) 6.25 Mg Tablet 6.25 Mg PO BIDWMEALS Creon 6,000 Units Capsule (Lipase/Protease/Amylase) 1 Each Capsule. 1 Tab PO TID Proair Hfa (Albuterol Sulfate) 8.5 Gm Hfa.aer.ad 2 Puff INH BID PRN Levothyroxine Sodium 50 Mcg Tablet 1 Tab PO DAILY Clonidine Tts-2 (Clonidine) 1 Each Patch.tdwk 1 Patch TD WEEKLY Amlodipine Besylate 5 Mg Tablet 10 Mg PO DAILY Atorvastatin Calcium 40 Mg Tablet 40 Mg PO HS Latanoprost 2.5 Ml Drops 1 Drop EACHEYE HS Vitals/I & O Vital Sign - Last 24 Hours 12/24/18 12/24/18 12/24/18 12/24/18 11:00 15:00 19:00 19:44 Temp 97.8 97.7 98.9 97.8 97.7 98.9 Pulse 92 88 85 Resp 18 18 18 B/P (MAP) 138/82 (100) 182/67 (105) 141/79 (99) Pulse Ox 94 93 95 93 O2 Delivery Room Air Room Air Room Air Room Air O2 Flow Rate 2.0 12/24/18 12/24/18 12/24/18 12/24/18 20:00 20:14 22:09 22:39 Pulse Ox 93 93 93 O2 Delivery Room Air Room Air Room Air Room Air O2 Flow Rate 2.0 2.0 2.0 12/25/18 12/25/18 12/25/18 12/25/18 00:22 00:52 02:36 03:00 Temp 98.1 98.1 Pulse 98 Resp 18 B/P (MAP) 159/60 (93) Pulse Ox 93 93 93 98 O2 Delivery Room Air Room Air Room Air Room Air O2 Flow Rate 2.0 2.0 2.0 12/25/18 12/25/18 12/25/18 03:06 05:45 06:15 Pulse Ox 98 98 98 O2 Delivery Room Air Room Air Room Air O2 Flow Rate 2.0 2.0 2.0 FELI SHAH MD Dec 25, 2018 08:17
[2018-12-25] MEDS: CEFEPIME HCL IV Push 1 GM VIAL. IVP SCH (08:35)
[2018-12-25] MEDS: FOLIC/VIT B COMP W-C (RENAL) TABLET. PO SCH (08:36)
[2018-12-25] MEDS: PANTOPRAZOLE 40 MG TABLET.DR. PO SCH (08:37)
[2018-12-25] MEDS: LISINOPRIL 20 MG TABLET PO SCH (08:37)
[2018-12-25] MEDS: SERTRALINE 50 MG TABLET. PO SCH (08:37)
[2018-12-25] MEDS: CLOPIDOGREL BISULFATE 75 MG TABLET PO SCH (08:37)
[2018-12-25] MEDS: CARVEDILOL 6.25 MG TABLET. PO SCH ×2 (08:37→17:08)
[2018-12-25] MEDS: amLODIPine BESYLATE 10 MG TABLET PO SCH (08:37)
[2018-12-25] MEDS: LACTOBACILLUS RHAMNOSUS GG 1 CAPSULE. PO SCH ×2 (08:38→22:04)
[2018-12-25] MEDS: NICOTINE 21MG PATCH. TD SCH (09:00)
--- NOTE | 2018-12-25 10:22 | NUR ---
12/24/18 am meds were still on the eMAR when this nurse administered 12/25/18 am meds. Non-administered yesterday meds and gave today's meds as scheduled.
[2018-12-25 11:00] VITALS: BP 134/38
[2018-12-25] MEDS: HYDROcodone/APAP 10/325 1 TAB TABLET PO PRN ×2 (11:17→19:18)
[2018-12-25] MEDS: fentaNYL PF VIAL 100 MCG/2 ML VIAL IV PRN ×2 (13:08→17:08)
[2018-12-25] MEDS: VANCOMYCIN PER PHARMACY MC PRN (14:26)
[2018-12-25 15:00] VITALS: BP 121/30
[2018-12-25 19:00] VITALS: BP 120/35
[2018-12-25] MEDS: LATANOPROST 0.005% OPHTH SOLUTION 2.5ML BOTTLE. OU SCH (21:00)
[2018-12-25] MEDS: ATORVASTATIN CALCIUM 40 MG TABLET. PO SCH (22:04)
[2018-12-25] MEDS: DARBEPOETIN ALFA 60 MCG/0.3 ML DISP.SYRIN. SQ SCH (22:05)
[2018-12-26] MEDS: HYDROcodone/APAP 10/325 1 TAB TABLET PO PRN ×3 (01:33→15:09)
--- NOTE | 2018-12-26 01:41 | NUR ---
Patient is verbally abusive to staff, refused vitals and blood sugar. When given oral medications, after putting medications in her mouth threw the med cup across the room.
[2018-12-26] MEDS: fentaNYL PF VIAL 100 MCG/2 ML VIAL IV PRN ×2 (05:21→17:01)
[2018-12-26] MEDS: PANTOPRAZOLE 40 MG TABLET.DR. PO SCH ×2 (05:21→08:17)
[2018-12-26] MEDS: LEVOTHYROXINE 50 MCG TABLET PO SCH (05:21)
[2018-12-26 07:15] VITALS: BP 126/54
[2018-12-26] MEDS: INSULIN LISPRO 300 UNITS/3 ML VIAL. SQ SCH ×3 (07:53→17:00)
[2018-12-26] MEDS: NICOTINE 21MG PATCH. TD SCH (08:15)
[2018-12-26] MEDS: CLOPIDOGREL BISULFATE 75 MG TABLET PO SCH (08:16)
[2018-12-26] MEDS: LACTOBACILLUS RHAMNOSUS GG 1 CAPSULE. PO SCH (08:16)
[2018-12-26] MEDS: SERTRALINE 50 MG TABLET. PO SCH (08:16)
[2018-12-26] MEDS: FOLIC/VIT B COMP W-C (RENAL) TABLET. PO SCH (08:16)
[2018-12-26] MEDS: CARVEDILOL 6.25 MG TABLET. PO SCH ×2 (08:17→17:01)
[2018-12-26] MEDS: LISINOPRIL 20 MG TABLET PO SCH (08:17)
[2018-12-26] MEDS: amLODIPine BESYLATE 10 MG TABLET PO SCH (08:17)
[2018-12-26] MEDS: CEFEPIME HCL IV Push 1 GM VIAL. IVP SCH (08:20)
--- NOTE | 2018-12-26 09:33 | PDOC ---
PROGRESS NOTES Chief Complaint Chief Complaint A/P: Nausea and vomiting 12/25 Diarrhea s/p left 4th toe amputation s/p RT BKA, HTN urgency - resolved ESRD - on HD Anemia of ESRD Hypothyroidism - on replacement therapy Left 5th digit amputation - s/p 5th left toe revision - Gangrene of right FOOT 3 toes of foot s/p RT BKA 12/05/18 Dyslipidemia on meds PAD - Diffuse moderate to advanced atherosclerotic plaque in the lower activity arteries with moderate stenosis in the mid SFA, mild to moderate stenosis in the popliteal artery. 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 Anxiety, depression - sec to med illness mod to severe pcm Continue vanc and Cefepime with HD. Cefepime 2 gm with HD on and 3 gm on Monday/Vanc 500 mg with HD for 4 weeks min 36 min pt exam, chart review d/c planning , > 50% of time spent with exam, chart review, pt care coordination History of Present Illness History of Present Illness Was admitted after leaving [facility] from [facility] This admission, vasc sx fixed her 4th toe and revised the 5th toe amputation Unpleasant affect, mood. She is c/o nausea and loose bowels, she vomits significantly in front of me. Still on iv abx per iD vanc q 12 hrs go home with HH - once okayed by ID PLAN: DNR F/u stool culture and c. diff Continue vanc and Cefepime with HD. Cefepime 2 gm with HD on and 3 gm on Monday/Vanc 500 mg with HD for 4 weeks min wound vac iv antibiotics Vitals Vitals Vital Signs Date Time Temp Pulse Resp B/P (MAP) Pulse Ox O2 Delivery O2 Flow Rate FiO2 12/26/18 08:17 69 126/54 12/26/18 08:16 95 Room Air 2.0 12/26/18 07:15 97.3 18 97.3 Physical Exam Physical Exam GENERAL: Lying down with blanket over her head. EXTREMITIES: Right [id number] amputation stump well-approx w/ sutures. No redness/drainage. Left foot wound vac in place.- no swelling or warmth SKIN: Warm to touch NEUROLOGIC: Not very conversant In HD nml conj/OC/Op- clear LUNG - CTA CV: S1/S2 Abd: soft NT General: Alert, Oriented X3, No acute distress Heart: Regular rate, Normal S1, Normal S2 Lungs: Clear Abdomen: Normal bowel sounds, Soft, No tenderness Extremities: No clubbing, No cyanosis, Normal pulses Skin: Other (bka stump, wound dressing, amputated toes wound vac) Labs LABS Laboratory Tests Test 12/25/18 11:40 12/25/18 17:19 12/26/18 07:17 Glucose (Fingerstick) 102 mg/dL (70-99) 86 mg/dL (70-99) 107 mg/dL (70-99) Assessment and Plan Assessmemt and Plan Problems Medical Problems: (1) Anemia Status: Chronic (2) Diabetic peripheral neuropathy associated with type 2 diabetes mellitus Status: Chronic (3) ESRD on hemodialysis Status: Chronic (4) Fall Status: Acute (5) Hyperglycemia Status: Acute (6) Hyperkalemia Status: Acute (7) PAD (peripheral artery disease) Status: Chronic Comment Review of Relevant I have reviewed the following items pamela (where applicable) has been applied. Labs Laboratory Tests Test 12/24/18 10:05 12/24/18 12:27 12/24/18 17:21 12/24/18 21:11 Random Vancomycin Level 20.0 mcg/mL Glucose (Fingerstick) 144 mg/dL (70-99) 129 mg/dL (70-99) 150 mg/dL (70-99) Test 12/25/18 02:33 12/25/18 08:07 12/25/18 11:40 12/25/18 17:19 White Blood Count 10.4 x10^3/uL (4.0-11.0) Red Blood Count 2.96 x10^6/uL (3.50-5.40) Hemoglobin 8.7 g/dL (12.0-15.5) Hematocrit 26.0 % (36.0-47.0) Mean Corpuscular Volume 88 fL (79-100) Mean Corpuscular Hemoglobin 29 pg (25-35) Mean Corpuscular Hemoglobin Concent 33 g/dL (31-37) Red Cell Distribution Width 17.5 % (11.5-14.5) Platelet Count 311 x10^3/uL (140-400) Neutrophils (%) (Auto) 80 % (31-73) Lymphocytes (%) (Auto) 11 % (24-48) Monocytes (%) (Auto) 8 % (0-9) Eosinophils (%) (Auto) 1 % (0-3) Basophils (%) (Auto) 1 % (0-3) Neutrophils # (Auto) 8.3 x10^3/uL (1.8-7.7) Lymphocytes # (Auto) 1.1 x10^3/uL (1.0-4.8) Monocytes # (Auto) 0.8 x10^3/uL (0.0-1.1) Eosinophils # (Auto) 0.1 x10^3/uL (0.0-0.7) Basophils # (Auto) 0.1 x10^3/uL (0.0-0.2) Sodium Level 139 mmol/L (136-145) Potassium Level 4.9 mmol/L (3.5-5.1) Chloride Level 99 mmol/L (98-107) Carbon Dioxide Level 31 mmol/L (21-32) Anion Gap 9 (6-14) Blood Urea Nitrogen 26 mg/dL (7-20) Creatinine 3.7 mg/dL (0.6-1.0) Estimated GFR (Cockcroft-Gault) 15.3 BUN/Creatinine Ratio 7 (6-20) Glucose Level 144 mg/dL (70-99) Calcium Level 9.6 mg/dL (8.5-10.1) Total Bilirubin 0.4 mg/dL (0.2-1.0) Aspartate Amino Transf (AST/SGOT) 30 U/L (15-37) Alanine Aminotransferase (ALT/SGPT) 7 U/L (14-59) Alkaline Phosphatase 86 U/L (46-116) Total Protein 7.2 g/dL (6.4-8.2) Albumin 2.3 g/dL (3.4-5.0) Albumin/Globulin Ratio 0.5 (1.0-1.7) Glucose (Fingerstick) 115 mg/dL (70-99) 102 mg/dL (70-99) 86 mg/dL (70-99) Test 12/26/18 07:17 Glucose (Fingerstick) 107 mg/dL (70-99) Laboratory Tests Test 12/25/18 11:40 12/25/18 17:19 12/26/18 07:17 Glucose (Fingerstick) 102 mg/dL (70-99) 86 mg/dL (70-99) 107 mg/dL (70-99) Microbiology 12/14/18 Blood Culture - Final, Complete NO GROWTH AFTER 5 DAYS Medications Current Medications Fentanyl Citrate (Fentanyl 2ml Vial) 50 mcg 1X ONCE IV Last administered on 12/14/18 02:52; Start 12/14/18 at 01:30; Stop 12/14/18 at 01:32; Status DC Ondansetron HCl (Zofran) 4 mg 1X ONCE IV Last administered on 12/14/18at 02:52; Start 12/14/18 at 01:30; Stop 12/14/18 at 01:32; Status DC Famotidine (Pepcid Vial) 20 mg 1X ONCE IVP Last administered on 12/14/18at 02:52; Start 12/14/18 at 01:30; Stop 12/14/18 at 01:32; Status DC Mupirocin (Bactroban) 1 herber 1X ONCE TP Last administered on 12/14/18at 02:52; Start 12/14/18 at 01:45; Stop 12/14/18 at 01:46; Status DC Mupirocin (Bactroban) 1 herber 1X ONCE TP Last administered on 12/14/18at 02:52; Start 12/14/18 at 02:30; Stop 12/14/18 at 02:31; Status DC Insulin Human Regular (HumuLIN R VIAL) 10 unit 1X ONCE IV ; Start 12/14/18 at 03:30; Stop 12/14/18 at 03:35; Status DC Ondansetron HCl (Zofran) 4 mg PRN Q8HRS PRN IV NAUSEA/VOMITING Last administered on 12/15/18at 00:08; Start 12/14/18 at 04:00; Stop 12/15/18 at 03:59; Status DC Fentanyl Citrate (Fentanyl 2ml Vial) 50 mcg PRN Q2HR PRN IV PAIN Last administered on 12/14/18at 09:00; Start 12/14/18 at 04:00; Stop 12/14/18 at 09:05; Status DC Insulin Human Lispro (HumaLOG) 0-5 UNITS TIDWMEALS SQ Last administered on 12/23/18at 08:58; Start 12/14/18 at 08:00 Dextrose (Dextrose 50%-Water Syringe) 12.5 gm PRN Q15MIN PRN IV SEE COMMENTS; Start 12/14/18 at 04:00 Dextrose 250 ml PRN Q15MIN PRN IV SEE COMMENTS; Start 12/14/18 at 04:00; Stop 12/21/18 at 11:24; Status DC Albuterol Sulfate (Ventolin Neb Soln) 2.5 mg PRN BID PRN INH SHORTNESS OF BREATH; Start 12/14/18 at 09:00 Alprazolam (Xanax) 0.5 mg PRN TID PRN PO ANXIETY / AGITATION; Start 12/14/18 at 09:00; Stop 12/15/18 at 09:03; Status DC Amlodipine Besylate (Norvasc) 10 mg DAILY PO Last administered on 12/26/18 08:17; Start 12/14/18 at 09:00 Atorvastatin Calcium (Lipitor) 40 mg HS PO Last administered on 12/25/18 22:04; Start 12/14/18 at 21:00 Carvedilol (Coreg) 6.25 mg BIDWMEALS PO Last administered on 12/26/18 08:17; Start 12/14/18 at 09:00 Clonidine HCl (Catapres Tts-2) 1 patch WEEKLY TD Last administered on 12/21/18at 09:47; Start 12/14/18 at 09:00 Vitamin B Complex/ Vitamin C (Pinky-Shreya) 1 tab DAILY PO Last administered on 12/26/18 08:16; Start 12/14/18 at 09:00 Acetaminophen/ Hydrocodone Bitart (Lortab 10/325) 1 tab PRN Q4HRS PRN PO MODERATE TO SEVERE PAIN Last administered on 12/15/18 08:05; Start 12/14/18 at 09:00; Stop 12/15/18 at 09:03; Status DC Latanoprost (Xalatan) 1 drop HS OU Last administered on 12/24/18 22:10; Start 12/14/18 at 21:00 Levothyroxine Sodium (Synthroid) 50 mcg DAILY06 PO Last administered on 12/26/18 05:21; Start 12/14/18 at 09:00 Lisinopril (Prinivil) 20 mg DAILY PO Last administered on 12/26/18 08:17; Start 12/14/18 at 09:00 Prochlorperazine Maleate (Compazine) 5 mg PRN TID PRN PO NAUSEA 2ND CHOICE Last administered on 12/21/18 09:43; Start 12/14/18 at 09:00 Sertraline HCl (Zoloft) 50 mg DAILY PO Last administered on 12/26/18 08:16; Start 12/14/18 at 09:00 Acetaminophen (Tylenol) 650 mg PRN Q6HRS PRN PO MILD PAIN / TEMP; Start 9 at 09:00 Cephalexin HCl (Keflex) 500 mg TID PO Last administered on 12/16/18 14:07; Start 12/14/18 at 09:00; Stop 12/16/18 at 15:12; Status DC Amylase/Lipase/ Protease (Zenpep 5,000) 1 cap TIDWMEALS PO Last administered on 12/26/18 08:16; Start 12/14/18 at 09:00 Famotidine (Pepcid) 20 mg QHS PO ; Start 12/14/18 at 21:00; Status Cancel Pantoprazole Sodium (Protonix) 40 mg DAILYAC PO Last administered on 12/26/18 08:17; Start 12/14/18 at 09:00 Fentanyl Citrate (Fentanyl 2ml Vial) 75 mcg PRN Q2HR PRN IV PAIN Last administered on 12/14/18 11:20; Start 12/14/18 at 09:15; Stop 12/15/18 at 09:03; Status DC Clopidogrel Bisulfate (Plavix) 75 mg DAILYWBKFT PO Last administered on 12/26/18 08:16; Start 12/14/18 at 10:00 Sodium Chloride 1,000 ml @ 1,000 mls/hr Q1H PRN IV hypotension; Start 12/14/18 at 09:38; Stop 12/14/18 at 15:37; Status DC Acetaminophen (Tylenol) 500 mg 1X PRN PRN PO MILD PAIN / TEMP; Start 12/14/18 at 09:45; Stop 12/15/18 at 09:44; Status DC Diphenhydramine HCl (Benadryl) 25 mg 1X PRN PRN IV ITCHING; Start 12/14/18 at 09:45; Stop 12/15/18 at 09:44; Status DC Diphenhydramine HCl (Benadryl) 25 mg 1X PRN PRN IV ITCHING; Start 12/14/18 at 09:45; Stop 12/15/18 at 09:44; Status DC Sodium Chloride 1,000 ml @ 400 mls/hr Q2H30M PRN IV PATENCY; Start 12/14/18 at 09:38; Stop 12/14/18 at 21:37; Status DC Info (PHARMACY MONITORING -- do not chart) 1 each PRN DAILY PRN MC SEE COMMENTS; Start 12/14/18 at 09:45; Status Cancel Alprazolam (Xanax) 0.25 mg PRN DAILY PRN PO ANXIETY / AGITATION Last administered on 12/23/18 02:41; Start 12/16/18 at 09:00 Fentanyl Citrate (Fentanyl 2ml Vial) 75 mcg PRN Q4HRS PRN IV PAIN Last administered on 12/16/18 03:26; Start 12/15/18 at 09:15; Stop 12/16/18 at 10:26; Status DC Acetaminophen/ Hydrocodone Bitart (Lortab 10/325) 1 tab PRN Q6HRS PRN PO MODERATE TO SEVERE PAIN Last administered on 12/26/18 08:16; Start 12/15/18 at 09:15 Nicotine (Nicoderm Cq 21mg) 1 patch DAILY TD Last administered on 12/17/18 14:16; Start 12/15/18 at 12:00 Fentanyl (Duragesic 12mcg/ Hr Patch) 1 patch Q3DAYS TD Last administered on 12/21/18 09:46; Start 12/15/18 at 12:15 Ondansetron HCl (Zofran Odt) 4 mg PRN Q6HRS PRN PO NAUSEA/VOMITING 1ST CHOICE Last administered on 12/25/18 13:07; Start 12/15/18 at 12:15 Fentanyl Citrate (Fentanyl 2ml Vial) 75 mcg PRN BID PRN IV SEVERE PAIN, 1st CHOICE Last administered on 12/26/18 05:21; Start 12/16/18 at 14:00 Cephalexin HCl (Keflex) 250 mg BID PO Last administered on 12/18/18 20:03; Start 12/16/18 at 21:00; Stop 12/19/18 at 18:41; Status DC Sodium Chloride 1,000 ml @ 1,000 mls/hr Q1H PRN IV hypotension; Start 12/17/18 at 08:23; Stop 12/17/18 at 14:22; Status DC Acetaminophen (Tylenol) 500 mg 1X PRN PRN PO MILD PAIN / TEMP; Start 12/17/18 at 08:30; Stop 12/18/18 at 08:29; Status DC Diphenhydramine HCl (Benadryl) 25 mg 1X PRN PRN IV ITCHING; Start 12/17/18 at 08:30; Stop 12/18/18 at 08:29; Status DC Diphenhydramine HCl (Benadryl) 25 mg 1X PRN PRN IV ITCHING; Start 12/17/18 at 08:30; Stop 12/18/18 at 08:29; Status DC Sodium Chloride 1,000 ml @ 400 mls/hr Q2H30M PRN IV PATENCY; Start 12/17/18 at 08:23; Stop 12/17/18 at 20:22; Status DC Info (PHARMACY MONITORING -- do not chart) 1 each PRN DAILY PRN MC SEE COMMENTS; Start 12/17/18 at 08:30; Status Cancel Lactobacillus Rhamnosus (Culturelle) 1 cap BID PO Last administered on 12/26/18at 08:16; Start 12/17/18 at 21:00 Zolpidem Tartrate (Ambien) 5 mg PRN QHS PRN PO INSOMNIA, MAY REPEAT IN 1HR Last administered on 12/24/18at 22:16; Start 12/17/18 at 21:45 Darbepoetin Jarrett (ARANESP for DIALYSIS PTS) 60 mcg WEEKLYHS SQ Last administered on 12/25/18at 22:05; Start 12/18/18 at 21:00 Sodium Chloride 1,000 ml @ 1,000 mls/hr Q1H PRN IV hypotension; Start 12/19/18 at 07:43; Stop 12/19/18 at 13:42; Status DC Acetaminophen (Tylenol) 500 mg 1X PRN PRN PO MILD PAIN / TEMP; Start 12/19/18 at 07:45; Stop 12/20/18 at 07:44; Status DC Diphenhydramine HCl (Benadryl) 25 mg 1X PRN PRN IV ITCHING; Start 12/19/18 at 07:45; Stop 12/20/18 at 07:44; Status DC Diphenhydramine HCl (Benadryl) 25 mg 1X PRN PRN IV ITCHING; Start 12/19/18 at 07:45; Stop 12/20/18 at 07:44; Status DC Sodium Chloride 1,000 ml @ 400 mls/hr Q2H30M PRN IV PATENCY; Start 12/19/18 at 07:43; Stop 12/19/18 at 19:42; Status DC Info (PHARMACY MONITORING -- do not chart) 1 each PRN DAILY PRN MC SEE COMMENTS; Start 12/19/18 at 07:45; Stop 12/24/18 at 13:41; Status DC Ondansetron HCl (Zofran) 4 mg 1X STAT IV Last administered on 12/19/18at 09:34; Start 12/19/18 at 09:25; Stop 12/19/18 at 09:29; Status DC Ondansetron HCl (Zofran) 4 mg 1X ONCE IV Last administered on 12/19/18at 10:18; Start 12/19/18 at 10:15; Stop 12/19/18 at 10:16; Status DC Ondansetron HCl (Zofran) 4 mg PRN Q6HRS PRN IV NAUSEA/VOMITING; Start 12/19/18 at 10:30; Stop 12/20/18 at 10:29; Status DC Fentanyl Citrate (Fentanyl 2ml Vial) 25 mcg PRN Q5MIN PRN IV MILD PAIN 1-3; Start 12/19/18 at 10:30; Stop 12/19/18 at 20:00; Status DC Fentanyl Citrate (Fentanyl 2ml Vial) 50 mcg PRN Q5MIN PRN IV MODERATE TO SEVERE PAIN Last administered on 12/19/18at 13:37; Start 12/19/18 at 10:30; Stop 12/19/18 at 20:00; Status DC Ringer's Solution 1,000 ml @ 30 mls/hr Q24H IV ; Start 12/19/18 at 10:18; Stop 12/19/18 at 12:23; Status DC Lidocaine HCl (Xylocaine-Mpf 1% 2ml Vial) 2 ml PRN 1X PRN ID PRIOR TO IV START; Start 12/19/18 at 10:30; Stop 12/19/18 at 20:00; Status DC Prochlorperazine Edisylate (Compazine) 5 mg PACU PRN PRN IV NAUSEA, MRX1 Last administered on 12/19/18at 12:57; Start 12/19/18 at 10:30; Stop 12/19/18 at 20:00; Status DC Cefazolin Sodium/ Dextrose 50 ml @ 100 mls/hr 1X ONCE IV Last administered on 12/19/18at 12:17; Start 12/19/18 at 12:00; Stop 12/19/18 at 12:29; Status DC Propofol 20 ml @ As Directed STK-MED ONCE IV ; Start 12/19/18 at 12:04; Stop 12/19/18 at 12:05; Status DC Dexamethasone Sodium Phosphate (Decadron) 4 mg STK-MED ONCE .ROUTE ; Start 12/19/18 at 12:04; Stop 12/19/18 at 12:05; Status DC Lidocaine HCl (Lidocaine Pf 2% Vial) 5 ml STK-MED ONCE .ROUTE ; Start 12/19/18 at 12:04; Stop 12/19/18 at 12:05; Status DC Ondansetron HCl (Zofran) 4 mg STK-MED ONCE .ROUTE ; Start 12/19/18 at 12:04; Stop 12/19/18 at 12:05; Status DC Insulin Human Lispro (HumaLOG VIAL for OP,RR ONLY) 0-10 units PRN Q1HR PRN SQ PER PROTOCOL; Start 12/19/18 at 12:15; Stop 12/20/18 at 12:14; Status DC Sodium Chloride 1,000 ml @ 30 mls/hr Q24H IV Last administered on 12/19/18at 12:10; Start 12/19/18 at 12:30; Stop 12/22/18 at 14:25; Status DC Fentanyl Citrate (Fentanyl 2ml Vial) 100 mcg STK-MED ONCE .ROUTE ; Start 12/19/18 at 12:36; Stop 12/19/18 at 12:36; Status DC Vancomycin HCl (Vanco Per Pharmacy) 1 each PRN DAILY PRN MC SEE COMMENTS Last administered on 12/25/18at 14:26; Start 12/19/18 at 13:00 Piperacillin Sod/ Tazobactam Sod (Zosyn Per Pharmacy) 1 each PRN DAILY PRN MC SEE COMMENTS; Start 12/19/18 at 13:00; Stop 12/22/18 at 14:16; Status DC Sevoflurane (Ultane) 30 ml STK-MED ONCE IH ; Start 12/19/18 at 12:49; Stop 12/19/18 at 12:49; Status DC Piperacillin Sod/ Tazobactam Sod 2.25 gm/Sodium Chloride 50 ml @ 100 mls/hr Q8HRS IV Last administered on 12/22/18at 13:56; Start 12/19/18 at 14:00; Stop 12/22/18 at 14:13; Status DC Vancomycin HCl 1.25 gm/Sodium Chloride 250 ml @ 167 mls/hr ONCE ONCE IV Last administered on 12/19/18at 14:51; Start 12/19/18 at 13:15; Stop 12/19/18 at 14:44; Status DC Vancomycin HCl (Vancomycin Random Level) 1 each 1X ONCE MC ; Start 12/21/18 at 06:00; Stop 12/21/18 at 06:02; Status DC Morphine Sulfate (Morphine Sulfate) 2 mg PRN Q2HR PRN IV SEVERE PAIN 7-10, 2nd CHOICE Last administered on 12/25/18at 08:36; Start 12/20/18 at 13:30; Stop 12/25/18 at 12:20; Status DC Diphenhydramine HCl (Benadryl) 25 mg PRN Q6HRS PRN PO ITCHING Last administered on 12/21/18at 16:59; Start 12/20/18 at 13:30 Morphine Sulfate (Morphine Sulfate) 2 mg PRN Q2HR PRN IV PAIN; Start 12/20/18 at 13:30; Status UNV Cefepime HCl (Maxipime) 1 gm Q24H IVP Last administered on 12/26/18at 08:20; Start 12/21/18 at 10:00 Vancomycin HCl 500 mg/Sodium Chloride 100 ml @ 100 mls/hr QMWF IV Last administered on 12/24/18at 19:44; Start 12/21/18 at 16:00 Sodium Chloride 1,000 ml @ 1,000 mls/hr Q1H PRN IV hypotension; Start 12/21/18 at 11:00; Stop 12/21/18 at 16:59; Status DC Sodium Chloride 1,000 ml @ 400 mls/hr Q2H30M PRN IV PATENCY; Start 12/21/18 at 11:00; Stop 12/21/18 at 22:59; Status DC Info (PHARMACY MONITORING -- do not chart) 1 each PRN DAILY PRN MC SEE COMMENTS; Start 12/21/18 at 17:00; Status UNV Info (PHARMACY MONITORING -- do not chart) 1 each PRN DAILY PRN MC SEE COMMENTS; Start 12/21/18 at 17:00; Status UNV Vancomycin HCl 1.25 gm/Sodium Chloride 250 ml @ 166.667 mls/hr 1X ONCE IV Last administered on 12/22/18at 15:21; Start 12/22/18 at 15:00; Stop 12/22/18 at 16:29; Status DC Vancomycin HCl (Vancomycin Random Level) 1 each 1X ONCE MC ; Start 12/24/18 at 06:00; Stop 12/24/18 at 06:01; Status DC Sodium Chloride 1,000 ml @ 1,000 mls/hr Q1H PRN IV hypotension; Start 12/24/18 at 13:37; Stop 12/24/18 at 19:36; Status DC Acetaminophen (Tylenol) 500 mg 1X PRN PRN PO MILD PAIN / TEMP; Start 12/24/18 at 13:45; Stop 12/25/18 at 13:44; Status DC Diphenhydramine HCl (Benadryl) 25 mg 1X PRN PRN IV ITCHING; Start 12/24/18 at 13:45; Stop 12/25/18 at 13:44; Status DC Diphenhydramine HCl (Benadryl) 25 mg 1X PRN PRN IV ITCHING; Start 12/24/18 at 13:45; Stop 12/25/18 at 13:44; Status DC Sodium Chloride 1,000 ml @ 400 mls/hr Q2H30M PRN IV PATENCY; Start 12/24/18 at 13:37; Stop 12/25/18 at 01:36; Status DC Info (PHARMACY MONITORING -- do not chart) 1 each PRN DAILY PRN MC SEE COMMENTS; Start 12/24/18 at 13:45 Active Scripts Active Keflex (Cephalexin) 500 Mg Capsule 1 Cap PO TID Pinky-Shreya Tablet (Folic Acid/Vitamin B Comp W-C) 0.8 Mg Tablet 1 Tab PO DAILY Hydrocodone-Apap 10-325 (Hydrocodone Bit/Acetaminophen) 1 Tab Tablet 1 Tab PO PRN Q4HRS PRN [Darbepoetin Jarrett In Polysorbat] 60 MCG/0.3 ML Disp.syrin 60 Mcg SQ WEEKLYHS 30 Days Alprazolam 0.5 Mg Tablet 0.5 Mg PO PRN TID PRN MDD 1 Tylenol (Acetaminophen) 325 Mg Capsule 650 Mg PO Q6-8HRS PRN Zantac (Ranitidine Hcl) 300 Mg Tablet 1 Tab PO QHS Compazine (Prochlorperazine Maleate) 5 Mg Tablet 5 Mg PO PRN TID PRN 10 Days [Pantoprazole] 40 MG Tablet. 40 Mg PO DAILYAC 30 Days Reported Zoloft (Sertraline Hcl) 50 Mg Tablet 50 Mg PO DAILY Lisinopril 20 Mg Tablet 20 Mg PO DAILY Coreg (Carvedilol) 6.25 Mg Tablet 6.25 Mg PO BIDWMELORENA Frey Dr 6,000 Units Capsule (Lipase/Protease/Amylase) 1 Each Capsule. 1 Tab PO TID Proair Hfa (Albuterol Sulfate) 8.5 Gm Hfa.aer.ad 2 Puff INH BID PRN Levothyroxine Sodium 50 Mcg Tablet 1 Tab PO DAILY Clonidine Tts-2 (Clonidine) 1 Each Patch.tdwk 1 Patch TD WEEKLY Amlodipine Besylate 5 Mg Tablet 10 Mg PO DAILY Atorvastatin Calcium 40 Mg Tablet 40 Mg PO HS Latanoprost 2.5 Ml Drops 1 Drop EACHEYE HS Vitals/I & O Vital Sign - Last 24 Hours 12/25/18 12/25/18 12/25/18 12/25/18 11:00 11:17 12:17 13:08 Temp 97.4 97.4 Pulse 88 Resp 18 B/P (MAP) 134/38 (70) Pulse Ox 93 O2 Delivery Room Air Room Air Room Air Room Air 12/25/18 12/25/18 12/25/18 12/25/18 13:38 15:00 17:08 17:08 Pulse 86 91 Resp 18 B/P (MAP) 121/30 (60) 139/70 Pulse Ox 91 O2 Delivery Room Air Room Air Room Air 12/25/18 12/25/18 12/25/18 12/25/18 17:38 19:00 19:18 20:00 Temp 97.8 97.8 Pulse 72 Resp 18 16 B/P (MAP) 120/35 (63) Pulse Ox 91 91 O2 Delivery Room Air Room Air Room Air Room Air O2 Flow Rate 2.0 12/25/18 12/26/18 12/26/18 12/26/18 20:30 01:33 05:06 05:21 Resp 16 16 16 16 Pulse Ox 91 91 91 O2 Delivery Room Air Room Air Room Air Room Air 12/26/18 12/26/18 12/26/18 12/26/18 06:00 07:15 08:16 08:17 Temp 97.3 97.3 Pulse 69 69 Resp 16 18 B/P (MAP) 126/54 (78) 126/54 Pulse Ox 91 95 95 O2 Delivery Room Air Room Air Room Air O2 Flow Rate 2.0 12/26/18 12/26/18 08:17 08:17 Pulse 69 69 B/P (MAP) 126/54 126/54 Intake and Output 12/25/18 12/25/18 12/26/18 15:00 23:00 07:00 Intake Total 120 ml Output Total 0 ml Balance 120 ml SANGEETHA MUELLER MD Dec 26, 2018 09:33
--- NOTE | 2018-12-26 11:17 | PDOC ---
SUBJECTIVE ROS seen on HD, Stable , states she is being dced today OBJECTIVE Vital Signs Vital Signs Date Time Temp Pulse Resp B/P (MAP) Pulse Ox O2 Delivery O2 Flow Rate FiO2 12/26/18 08:17 69 126/54 12/26/18 08:16 95 Room Air 2.0 12/26/18 07:15 97.3 18 97.3 I & 0 Intake and Output 12/26/18 06:59 Intake Total 120 ml Output Total 0 ml Balance 120 ml Intake Oral 120 ml Output Urine Total 0 ml # Bowel Movements 1 PHYSICAL EXAM Physical Exam GENERAL NAD lungs CTA CV RRR EXTREMITIES: Right [id number] amputation stump Left foot wound vac in place. SKIN: No rash DIAGNOSIS/ASSESSMENT Assessment & Plan ESRD - On HD MWF Chronic non compliance seen on HD, Tolerating well, 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, Eddie Daniels ACcess- Permacath, Failed AVF AVG placed in September 2018 at [facility] - Left upper arm brachial artery to brachial vein arterial to venous graft placement using PTFE graft. Use per vascular Chronic severe Non compliance with Dialysis as OP as well during hospitalizations- leaves AMA Left fourth toe open amputation and left fifth toe amp site I and D, 12/19. 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 Diabetes w peripheral neuropathy Anemia - On ARLIN COMMENT/RELEVANT DATA Meds Current Medications Medications (Trade) Dose Ordered Sig/Clarence Start Time Stop Time Status Last Admin Dose Admin Acetaminophen (Tylenol) 500 mg 1X PRN PRN 12/24/18 13:45 12/25/18 13:44 DC Acetaminophen/ Hydrocodone Bitart (Lortab 10325) 1 tab PRN Q6HRS PRN 12/15/18 09:15 12/26/18 08:16 1 TAB Albuterol Sulfate (Ventolin Neb Soln) 2.5 mg PRN BID PRN 12/14/18 09:00 Alprazolam (Xanax) 0.25 mg PRN DAILY PRN 12/16/18 09:00 12/23/18 02:41 0.25 MG Amlodipine Besylate (Norvasc) 10 mg DAILY 12/14/18 09:00 12/26/18 08:17 10 MG Amylase/Lipase/ Protease (Zenpep 5,000) 1 cap TIDWMEALS 12/14/18 09:00 12/26/18 08:16 1 CAP Atorvastatin Calcium (Lipitor) 40 mg HS 12/14/18 21:00 12/25/18 22:04 40 MG Carvedilol (Coreg) 6.25 mg BIDWMEALS 12/14/18 09:00 12/26/18 08:17 6.25 MG Cefazolin Sodium/ Dextrose 50 ml @ 100 mls/hr 1X ONCE 12/19/18 12:00 12/19/18 12:29 DC 12/19/18 12:17 100 MLS/HR Cefepime HCl (Maxipime) 1 gm Q24H 12/21/18 10:00 12/26/18 08:20 1 GM Cephalexin HCl (Keflex) 250 mg BID 12/16/18 21:00 12/19/18 18:41 DC 12/18/18 20:03 250 MG Clonidine HCl (Catapres Tts-2) 1 patch WEEKLY 12/14/18 09:00 12/21/18 09:47 1 PATCH Clopidogrel Bisulfate (Plavix) 75 mg DAILYWBKFT 12/14/18 10:00 12/26/18 08:16 75 MG Darbepoetin Jarrett (ARANESP for DIALYSIS PTS) 60 mcg WEEKLYHS 12/18/18 21:00 12/25/18 22:05 60 MCG Dexamethasone Sodium Phosphate (Decadron) 4 mg STK-MED ONCE 12/19/18 12:04 12/19/18 12:05 DC Dextrose 250 ml PRN Q15MIN PRN 12/14/18 04:00 12/21/18 11:24 DC Dextrose (Dextrose 50%-Water Syringe) 12.5 gm PRN Q15MIN PRN 12/14/18 04:00 Diphenhydramine HCl (Benadryl) 25 mg 1X PRN PRN 12/24/18 13:45 12/25/18 13:44 DC Famotidine (Pepcid Vial) 20 mg 1X ONCE 12/14/18 01:30 12/14/18 01:32 DC 12/14/18 02:52 20 MG Famotidine (Pepcid) 20 mg QHS 12/14/18 21:00 Cancel Fentanyl (Duragesic 12mcg/ Hr Patch) 1 patch Q3DAYS 12/15/18 12:15 12/21/18 09:46 1 PATCH Fentanyl Citrate (Fentanyl 2ml Vial) 100 mcg STK-MED ONCE 12/19/18 12:36 12/19/18 12:36 DC Info (PHARMACY MONITORING -- do not chart) 1 each PRN DAILY PRN 12/24/18 13:45 Insulin Human Lispro (HumaLOG VIAL for OP,RR ONLY) 0-10 units PRN Q1HR PRN 12/19/18 12:15 12/20/18 12:14 DC Insulin Human Lispro (HumaLOG) 0-5 UNITS TIDWMEALS 12/14/18 08:00 12/23/18 08:58 3 UNITS Insulin Human Regular (HumuLIN R VIAL) 10 unit 1X ONCE 12/14/18 03:30 12/14/18 03:35 DC Lactobacillus Rhamnosus (Culturelle) 1 cap BID 12/17/18 21:00 12/26/18 08:16 1 CAP Latanoprost (Xalatan) 1 drop HS 12/14/18 21:00 12/24/18 22:10 1 DROP Levothyroxine Sodium (Synthroid) 50 mcg DAILY06 12/14/18 09:00 12/26/18 05:21 50 MCG Lidocaine HCl (Lidocaine Pf 2% Vial) 5 ml STK-MED ONCE 12/19/18 12:04 12/19/18 12:05 DC Lidocaine HCl (Xylocaine-Mpf 1% 2ml Vial) 2 ml PRN 1X PRN 12/19/18 10:30 12/19/18 20:00 DC Lisinopril (Prinivil) 20 mg DAILY 12/14/18 09:00 12/26/18 08:17 20 MG Morphine Sulfate (Morphine Sulfate) 2 mg PRN Q2HR PRN 12/20/18 13:30 UNV Mupirocin (Bactroban) 1 herber 1X ONCE 12/14/18 02:30 12/14/18 02:31 DC 12/14/18 02:52 1 HERBER Nicotine (Nicoderm Cq 21mg) 1 patch DAILY 12/15/18 12:00 12/17/18 14:16 1 PATCH Ondansetron HCl (Zofran Odt) 4 mg PRN Q6HRS PRN 12/15/18 12:15 12/25/18 13:07 4 MG Ondansetron HCl (Zofran) 4 mg STK-MED ONCE 12/19/18 12:04 12/19/18 12:05 DC Pantoprazole Sodium (Protonix) 40 mg DAILYAC 12/14/18 09:00 12/26/18 08:17 40 MG Piperacillin Sod/ Tazobactam Sod (Zosyn Per Pharmacy) 1 each PRN DAILY PRN 12/19/18 13:00 12/22/18 14:16 DC Piperacillin Sod/ Tazobactam Sod 2.25 gm/Sodium Chloride 50 ml @ 100 mls/hr Q8HRS 12/19/18 14:00 12/22/18 14:13 DC 12/22/18 13:56 100 MLS/HR Prochlorperazine Edisylate (Compazine) 5 mg PACU PRN PRN 12/19/18 10:30 12/19/18 20:00 DC 12/19/18 12:57 5 MG Prochlorperazine Maleate (Compazine) 5 mg PRN TID PRN 12/14/18 09:00 12/21/18 09:43 5 MG Propofol 20 ml @ As Directed STK-MED ONCE 12/19/18 12:04 12/19/18 12:05 DC Ringer's Solution 1,000 ml @ 30 mls/hr Q24H 12/19/18 10:18 12/19/18 12:23 DC Sertraline HCl (Zoloft) 50 mg DAILY 12/14/18 09:00 12/26/18 08:16 50 MG Sevoflurane (Ultane) 30 ml STK-MED ONCE 12/19/18 12:49 12/19/18 12:49 DC Sodium Chloride 1,000 ml @ 400 mls/hr Q2H30M PRN 12/24/18 13:37 12/25/18 01:36 DC Vancomycin HCl (Vanco Per Pharmacy) 1 each PRN DAILY PRN 12/19/18 13:00 12/25/18 14:26 1 EACH Vancomycin HCl (Vancomycin Random Level) 1 each 1X ONCE 12/24/18 06:00 12/24/18 06:01 DC Vancomycin HCl 1.25 gm/Sodium Chloride 250 ml @ 166.667 mls/hr 1X ONCE 12/22/18 15:00 12/22/18 16:29 DC 12/22/18 15:21 166.667 MLS/HR Vancomycin HCl 500 mg/Sodium Chloride 100 ml @ 100 mls/hr QMWF 12/21/18 16:00 12/24/18 19:44 100 MLS/HR Vitamin B Complex/ Vitamin C (Pinky-Shreya) 1 tab DAILY 12/14/18 09:00 12/26/18 08:16 1 TAB Zolpidem Tartrate (Ambien) 5 mg PRN QHS PRN 12/17/18 21:45 12/24/18 22:16 5 MG Lab Laboratory Tests Test 12/25/18 11:40 12/25/18 17:19 12/26/18 07:17 Glucose (Fingerstick) 102 mg/dL (70-99) 86 mg/dL (70-99) 107 mg/dL (70-99) Results All relevant outside records, renal labs, imaging studies, telemetry/EKG's were reviewed. DOMINIQUE TSE MD Dec 26, 2018 11:17
--- NOTE | 2018-12-26 12:40 | PDOC3 ---
Discharge Summary Date of Admission: Dec 14, 2018 Date of Discharge: Dec 26, 2018 Follow-Up: 1-2 days Admitting Diagnosis comment: discharge dx A/P: Nausea and vomiting 12/25 Diarrhea s/p left 4th toe amputation s/p RT BKA, HTN urgency - resolved ESRD - on HD Anemia of ESRD Hypothyroidism - on replacement therapy Left 5th digit amputation - s/p 5th left toe revision - Gangrene of right FOOT 3 toes of foot s/p RT BKA 12/05/18 Dyslipidemia on meds PAD - Diffuse moderate to advanced atherosclerotic plaque in the lower activity arteries with moderate stenosis in the mid SFA, mild to moderate stenosis in the popliteal artery. Nonvisualization of flow in the distal [employer] suggests occlusion, age indeterminate. Anxiety, depression - sec to med illness mod to severe pcm Continue vanc and Cefepime with HD. Cefepime 2 gm with HD on and 3 gm on Monday/Vanc 500 mg with HD for 4 weeks min 36 min pt exam, chart review d/c planning , > 50% of time spent with exam, chart review, pt care coordination History of Present Illness History of Present Illness Was admitted after leaving AMA from [facility] This admission, vasc sx fixed her 4th toe and revised the 5th toe amputation Unpleasant affect, mood. Still on iv abx per iD vanc q 12 hrs go home with HH - once okayed by ID PLAN: DNR F/u stool culture and c. diff Continue vanc and Cefepime with HD. Cefepime 2 gm with HD on and 3 gm on Monday/Vanc 500 mg with HD for 4 weeks min wound vac iv antibiotics Vitals Vitals Vital Signs Date Time Temp Pulse Resp B/P (MAP) Pulse Ox O2 Delivery O2 Flow Rate FiO2 12/26/18 08:17 69 126/54 12/26/18 08:16 95 Room Air 2.0 12/26/18 07:15 97.3 18 97.3 Physical Exam Physical Exam GENERAL: Lying down with blanket over her head. EXTREMITIES: Right [id number] amputation stump well-approx w/ sutures. No redness/drainage. Left foot wound vac in place.- no swelling or warmth SKIN: Warm to touch NEUROLOGIC: Not very conversant In HD nml conj/OC/Op- clear LUNG - CTA CV: S1/S2 Abd: soft NT General: Alert, Oriented X3, No acute distress Heart: Regular rate, Normal S1, Normal S2 Lungs: Clear Abdomen: Normal bowel sounds, Soft, No tenderness Extremities: No clubbing, No cyanosis, Normal pulses Skin: Other (bka stump, wound dressing, amputated toes wound vac) FINAL DIAGNOSIS Problems Medical Problems: (1) Anemia Status: Chronic (2) Diabetic peripheral neuropathy associated with type 2 diabetes mellitus Status: Chronic (3) ESRD on hemodialysis Status: Chronic (4) Fall Status: Acute (5) Hyperglycemia Status: Acute (6) Hyperkalemia Status: Acute (7) PAD (peripheral artery disease) Status: Chronic Brief Hospital Course Ms. Salazar is a 58 old [sex] who presented with [ gangrene of toes] CONDITION AT DISCHARGE: Improved Discharge Medications Current Medications Fentanyl Citrate (Fentanyl 2ml Vial) 50 mcg 1X ONCE IV Last administered on 12/14/18at 02:52; Start 12/14/18 at 01:30; Stop 12/14/18 at 01:32; Status DC Ondansetron HCl (Zofran) 4 mg 1X ONCE IV Last administered on 12/14/18at 02:52; Start 12/14/18 at 01:30; Stop 12/14/18 at 01:32; Status DC Famotidine (Pepcid Vial) 20 mg 1X ONCE IVP Last administered on 12/14/18at 02:52; Start 12/14/18 at 01:30; Stop 12/14/18 at 01:32; Status DC Mupirocin (Bactroban) 1 herber 1X ONCE TP Last administered on 12/14/18at 02:52; Start 12/14/18 at 01:45; Stop 12/14/18 at 01:46; Status DC Mupirocin (Bactroban) 1 herber 1X ONCE TP Last administered on 12/14/18at 02:52; Start 12/14/18 at 02:30; Stop 12/14/18 at 02:31; Status DC Insulin Human Regular (HumuLIN R VIAL) 10 unit 1X ONCE IV ; Start 12/14/18 at 03:30; Stop 12/14/18 at 03:35; Status DC Ondansetron HCl (Zofran) 4 mg PRN Q8HRS PRN IV NAUSEA/VOMITING Last administered on 12/15/18at 00:08; Start 12/14/18 at 04:00; Stop 12/15/18 at 03:59; Status DC Fentanyl Citrate (Fentanyl 2ml Vial) 50 mcg PRN Q2HR PRN IV PAIN Last administered on 12/14/18at 09:00; Start 12/14/18 at 04:00; Stop 12/14/18 at 09:05; Status DC Insulin Human Lispro (HumaLOG) 0-5 UNITS TIDWMEALS SQ Last administered on 12/23/18at 08:58; Start 12/14/18 at 08:00 Dextrose (Dextrose 50%-Water Syringe) 12.5 gm PRN Q15MIN PRN IV SEE COMMENTS; Start 12/14/18 at 04:00 Dextrose 250 ml PRN Q15MIN PRN IV SEE COMMENTS; Start 12/14/18 at 04:00; Stop 12/21/18 at 11:24; Status DC Albuterol Sulfate (Ventolin Neb Soln) 2.5 mg PRN BID PRN INH SHORTNESS OF BREATH; Start 12/14/18 at 09:00 Alprazolam (Xanax) 0.5 mg PRN TID PRN PO ANXIETY / AGITATION; Start 12/14/18 at 09:00; Stop 12/15/18 at 09:03; Status DC Amlodipine Besylate (Norvasc) 10 mg DAILY PO Last administered on 12/26/18at 08:17; Start 12/14/18 at 09:00 Atorvastatin Calcium (Lipitor) 40 mg HS PO Last administered on 12/25/18at 22:04; Start 12/14/18 at 21:00 Carvedilol (Coreg) 6.25 mg BIDWMEALS PO Last administered on 12/26/18 08:17; Start 12/14/18 at 09:00 Clonidine HCl (Catapres Tts-2) 1 patch WEEKLY TD Last administered on 12/21/18at 09:47; Start 12/14/18 at 09:00 Vitamin B Complex/ Vitamin C (Pinky-Shreya) 1 tab DAILY PO Last administered on 12/26/18at 08:16; Start 12/14/18 at 09:00 Acetaminophen/ Hydrocodone Bitart (Lortab 10/325) 1 tab PRN Q4HRS PRN PO MODERATE TO SEVERE PAIN Last administered on 12/15/18 08:05; Start 12/14/18 at 09:00; Stop 12/15/18 at 09:03; Status DC Latanoprost (Xalatan) 1 drop HS OU Last administered on 12/24/18 22:10; Start 12/14/18 at 21:00 Levothyroxine Sodium (Synthroid) 50 mcg DAILY06 PO Last administered on 12/26/18 05:21; Start 12/14/18 at 09:00 Lisinopril (Prinivil) 20 mg DAILY PO Last administered on 12/26/18 08:17; Start 12/14/18 at 09:00 Prochlorperazine Maleate (Compazine) 5 mg PRN TID PRN PO NAUSEA 2ND CHOICE Last administered on 12/21/18 09:43; Start 12/14/18 at 09:00 Sertraline HCl (Zoloft) 50 mg DAILY PO Last administered on 12/26/18 08:16; Start 12/14/18 at 09:00 Acetaminophen (Tylenol) 650 mg PRN Q6HRS PRN PO MILD PAIN / TEMP; Start 12/14/18 at 09:00 Cephalexin HCl (Keflex) 500 mg TID PO Last administered on 12/16/18 14:07; Start 12/14/18 at 09:00; Stop 12/16/18 at 15:12; Status DC Amylase/Lipase/ Protease (Zenpep 5,000) 1 cap TIDWMEALS PO Last administered on 12/26/18 08:16; Start 12/14/18 at 09:00 Famotidine (Pepcid) 20 mg QHS PO ; Start 12/14/18 at 21:00; Status Cancel Pantoprazole Sodium (Protonix) 40 mg DAILYAC PO Last administered on 12/26/18 08:17; Start 12/14/18 at 09:00 Fentanyl Citrate (Fentanyl 2ml Vial) 75 mcg PRN Q2HR PRN IV PAIN Last administered on 12/14/18 11:20; Start 12/14/18 at 09:15; Stop 12/15/18 at 09:03; Status DC Clopidogrel Bisulfate (Plavix) 75 mg DAILYWBKFT PO Last administered on 12/26/18 08:16; Start 12/14/18 at 10:00 Sodium Chloride 1,000 ml @ 1,000 mls/hr Q1H PRN IV hypotension; Start 12/14/18 at 09:38; Stop 12/14/18 at 15:37; Status DC Acetaminophen (Tylenol) 500 mg 1X PRN PRN PO MILD PAIN / TEMP; Start 12/14/18 at 09:45; Stop 12/15/18 at 09:44; Status DC Diphenhydramine HCl (Benadryl) 25 mg 1X PRN PRN IV ITCHING; Start 12/14/18 at 09:45; Stop 12/15/18 at 09:44; Status DC Diphenhydramine HCl (Benadryl) 25 mg 1X PRN PRN IV ITCHING; Start 12/14/18 at 09:45; Stop 12/15/18 at 09:44; Status DC Sodium Chloride 1,000 ml @ 400 mls/hr Q2H30M PRN IV PATENCY; Start 12/14/18 at 09:38; Stop 12/14/18 at 21:37; Status DC Info (PHARMACY MONITORING -- do not chart) 1 each PRN DAILY PRN MC SEE COMMENTS; Start 12/14/18 at 09:45; Status Cancel Alprazolam (Xanax) 0.25 mg PRN DAILY PRN PO ANXIETY / AGITATION Last administered on 12/23/18at 02:41; Start 12/16/18 at 09:00 Fentanyl Citrate (Fentanyl 2ml Vial) 75 mcg PRN Q4HRS PRN IV PAIN Last administered on 12/16/18at 03:26; Start 12/15/18 at 09:15; Stop 12/16/18 at 10:26; Status DC Acetaminophen/ Hydrocodone Bitart (Lortab 10/325) 1 tab PRN Q6HRS PRN PO MODERATE TO SEVERE PAIN Last administered on 12/26/18 08:16; Start 12/15/18 at 09:15 Nicotine (Nicoderm Cq 21mg) 1 patch DAILY TD Last administered on 12/17/18 14:16; Start 12/15/18 at 12:00 Fentanyl (Duragesic 12mcg/ Hr Patch) 1 patch Q3DAYS TD Last administered on 12/21/18at 09:46; Start 12/15/18 at 12:15 Ondansetron HCl (Zofran Odt) 4 mg PRN Q6HRS PRN PO NAUSEA/VOMITING 1ST CHOICE Last administered on 12/25/18at 13:07; Start 12/15/18 at 12:15 Fentanyl Citrate (Fentanyl 2ml Vial) 75 mcg PRN BID PRN IV SEVERE PAIN, 1st CHOICE Last administered on 12/26/18at 05:21; Start 12/16/18 at 14:00 Cephalexin HCl (Keflex) 250 mg BID PO Last administered on 12/18/18at 20:03; Start 12/16/18 at 21:00; Stop 12/19/18 at 18:41; Status DC Sodium Chloride 1,000 ml @ 1,000 mls/hr Q1H PRN IV hypotension; Start 12/17/18 at 08:23; Stop 12/17/18 at 14:22; Status DC Acetaminophen (Tylenol) 500 mg 1X PRN PRN PO MILD PAIN / TEMP; Start 12/17/18 at 08:30; Stop 12/18/18 at 08:29; Status DC Diphenhydramine HCl (Benadryl) 25 mg 1X PRN PRN IV ITCHING; Start 12/17/18 at 08:30; Stop 12/18/18 at 08:29; Status DC Diphenhydramine HCl (Benadryl) 25 mg 1X PRN PRN IV ITCHING; Start 12/17/18 at 08:30; Stop 12/18/18 at 08:29; Status DC Sodium Chloride 1,000 ml @ 400 mls/hr Q2H30M PRN IV PATENCY; Start 12/17/18 at 08:23; Stop 12/17/18 at 20:22; Status DC Info (PHARMACY MONITORING -- do not chart) 1 each PRN DAILY PRN MC SEE COMMENTS; Start 12/17/18 at 08:30; Status Cancel Lactobacillus Rhamnosus (Culturelle) 1 cap BID PO Last administered on 12/26/18at 08:16; Start 12/17/18 at 21:00 Zolpidem Tartrate (Ambien) 5 mg PRN QHS PRN PO INSOMNIA, MAY REPEAT IN 1HR Last administered on 12/24/18at 22:16; Start 12/17/18 at 21:45 Darbepoetin Jarrett (ARANESP for DIALYSIS PTS) 60 mcg WEEKLYHS SQ Last administered on 12/25/18at 22:05; Start 12/18/18 at 21:00 Sodium Chloride 1,000 ml @ 1,000 mls/hr Q1H PRN IV hypotension; Start 12/19/18 at 07:43; Stop 12/19/18 at 13:42; Status DC Acetaminophen (Tylenol) 500 mg 1X PRN PRN PO MILD PAIN / TEMP; Start 12/19/18 at 07:45; Stop 12/20/18 at 07:44; Status DC Diphenhydramine HCl (Benadryl) 25 mg 1X PRN PRN IV ITCHING; Start 12/19/18 at 07:45; Stop 12/20/18 at 07:44; Status DC Diphenhydramine HCl (Benadryl) 25 mg 1X PRN PRN IV ITCHING; Start 12/19/18 at 07:45; Stop 12/20/18 at 07:44; Status DC Sodium Chloride 1,000 ml @ 400 mls/hr Q2H30M PRN IV PATENCY; Start 12/19/18 at 07:43; Stop 12/19/18 at 19:42; Status DC Info (PHARMACY MONITORING -- do not chart) 1 each PRN DAILY PRN MC SEE COMMENTS; Start 12/19/18 at 07:45; Stop 12/24/18 at 13:41; Status DC Ondansetron HCl (Zofran) 4 mg 1X STAT IV Last administered on 12/19/18at 09:34; Start 12/19/18 at 09:25; Stop 12/19/18 at 09:29; Status DC Ondansetron HCl (Zofran) 4 mg 1X ONCE IV Last administered on 12/19/18at 10:18; Start 12/19/18 at 10:15; Stop 12/19/18 at 10:16; Status DC Ondansetron HCl (Zofran) 4 mg PRN Q6HRS PRN IV NAUSEA/VOMITING; Start 12/19/18 at 10:30; Stop 12/20/18 at 10:29; Status DC Fentanyl Citrate (Fentanyl 2ml Vial) 25 mcg PRN Q5MIN PRN IV MILD PAIN 1-3; Start 12/19/18 at 10:30; Stop 12/19/18 at 20:00; Status DC Fentanyl Citrate (Fentanyl 2ml Vial) 50 mcg PRN Q5MIN PRN IV MODERATE TO SEVERE PAIN Last administered on 12/19/18at 13:37; Start 12/19/18 at 10:30; Stop 12/19/18 at 20:00; Status DC Ringer's Solution 1,000 ml @ 30 mls/hr Q24H IV ; Start 12/19/18 at 10:18; Stop 12/19/18 at 12:23; Status DC Lidocaine HCl (Xylocaine-Mpf 1% 2ml Vial) 2 ml PRN 1X PRN ID PRIOR TO IV START; Start 12/19/18 at 10:30; Stop 12/19/18 at 20:00; Status DC Prochlorperazine Edisylate (Compazine) 5 mg PACU PRN PRN IV NAUSEA, MRX1 Last administered on 12/19/18at 12:57; Start 12/19/18 at 10:30; Stop 12/19/18 at 20:00; Status DC Cefazolin Sodium/ Dextrose 50 ml @ 100 mls/hr 1X ONCE IV Last administered on 12/19/18at 12:17; Start 12/19/18 at 12:00; Stop 12/19/18 at 12:29; Status DC Propofol 20 ml @ As Directed STK-MED ONCE IV ; Start 12/19/18 at 12:04; Stop 12/19/18 at 12:05; Status DC Dexamethasone Sodium Phosphate (Decadron) 4 mg STK-MED ONCE .ROUTE ; Start 12/19/18 at 12:04; Stop 12/19/18 at 12:05; Status DC Lidocaine HCl (Lidocaine Pf 2% Vial) 5 ml STK-MED ONCE .ROUTE ; Start 12/19/18 at 12:04; Stop 12/19/18 at 12:05; Status DC Ondansetron HCl (Zofran) 4 mg STK-MED ONCE .ROUTE ; Start 12/19/18 at 12:04; Stop 12/19/18 at 12:05; Status DC Insulin Human Lispro (HumaLOG VIAL for OP,RR ONLY) 0-10 units PRN Q1HR PRN SQ PER PROTOCOL; Start 12/19/18 at 12:15; Stop 12/20/18 at 12:14; Status DC Sodium Chloride 1,000 ml @ 30 mls/hr Q24H IV Last administered on 12/19/18at 12:10; Start 12/19/18 at 12:30; Stop 12/22/18 at 14:25; Status DC Fentanyl Citrate (Fentanyl 2ml Vial) 100 mcg STK-MED ONCE .ROUTE ; Start 12/19/18 at 12:36; Stop 12/19/18 at 12:36; Status DC Vancomycin HCl (Vanco Per Pharmacy) 1 each PRN DAILY PRN MC SEE COMMENTS Last administered on 12/25/18at 14:26; Start 12/19/18 at 13:00 Piperacillin Sod/ Tazobactam Sod (Zosyn Per Pharmacy) 1 each PRN DAILY PRN MC SEE COMMENTS; Start 12/19/18 at 13:00; Stop 12/22/18 at 14:16; Status DC Sevoflurane (Ultane) 30 ml STK-MED ONCE IH ; Start 12/19/18 at 12:49; Stop 12/19/18 at 12:49; Status DC Piperacillin Sod/ Tazobactam Sod 2.25 gm/Sodium Chloride 50 ml @ 100 mls/hr Q8HRS IV Last administered on 12/22/18at 13:56; Start 12/19/18 at 14:00; Stop 12/22/18 at 14:13; Status DC Vancomycin HCl 1.25 gm/Sodium Chloride 250 ml @ 167 mls/hr ONCE ONCE IV Last administered on 12/19/18at 14:51; Start 12/19/18 at 13:15; Stop 12/19/18 at 14:44; Status DC Vancomycin HCl (Vancomycin Random Level) 1 each 1X ONCE MC ; Start 12/21/18 at 06:00; Stop 12/21/18 at 06:02; Status DC Morphine Sulfate (Morphine Sulfate) 2 mg PRN Q2HR PRN IV SEVERE PAIN 7-10, 2nd CHOICE Last administered on 12/25/18at 08:36; Start 12/20/18 at 13:30; Stop 12/25/18 at 12:20; Status DC Diphenhydramine HCl (Benadryl) 25 mg PRN Q6HRS PRN PO ITCHING Last administered on 12/21/18at 16:59; Start 12/20/18 at 13:30 Morphine Sulfate (Morphine Sulfate) 2 mg PRN Q2HR PRN IV PAIN; Start 12/20/18 at 13:30; Status UNV Cefepime HCl (Maxipime) 1 gm Q24H IVP Last administered on 12/26/18at 08:20; Start 12/21/18 at 10:00 Vancomycin HCl 500 mg/Sodium Chloride 100 ml @ 100 mls/hr QMWF IV Last a dministered on 12/24/18at 19:44; Start 12/21/18 at 16:00 Sodium Chloride 1,000 ml @ 1,000 mls/hr Q1H PRN IV hypotension; Start 12/21/18 at 11:00; Stop 12/21/18 at 16:59; Status DC Sodium Chloride 1,000 ml @ 400 mls/hr Q2H30M PRN IV PATENCY; Start 12/21/18 at 11:00; Stop 12/21/18 at 22:59; Status DC Info (PHARMACY MONITORING -- do not chart) 1 each PRN DAILY PRN MC SEE COMMENTS; Start 12/21/18 at 17:00; Status UNV Info (PHARMACY MONITORING -- do not chart) 1 each PRN DAILY PRN MC SEE COMMENTS; Start 12/21/18 at 17:00; Status UNV Vancomycin HCl 1.25 gm/Sodium Chloride 250 ml @ 166.667 mls/hr 1X ONCE IV Last administered on 12/22/18at 15:21; Start 12/22/18 at 15:00; Stop 12/22/18 at 16:29; Status DC Vancomycin HCl (Vancomycin Random Level) 1 each 1X ONCE MC ; Start 12/24/18 at 06:00; Stop 12/24/18 at 06:01; Status DC Sodium Chloride 1,000 ml @ 1,000 mls/hr Q1H PRN IV hypotension; Start 12/24/18 at 13:37; Stop 12/24/18 at 19:36; Status DC Acetaminophen (Tylenol) 500 mg 1X PRN PRN PO MILD PAIN / TEMP; Start 12/24/18 at 13:45; Stop 12/25/18 at 13:44; Status DC Diphenhydramine HCl (Benadryl) 25 mg 1X PRN PRN IV ITCHING; Start 12/24/18 at 13:45; Stop 12/25/18 at 13:44; Status DC Diphenhydramine HCl (Benadryl) 25 mg 1X PRN PRN IV ITCHING; Start 12/24/18 at 13:45; Stop 12/25/18 at 13:44; Status DC Sodium Chloride 1,000 ml @ 400 mls/hr Q2H30M PRN IV PATENCY; Start 12/24/18 at 13:37; Stop 12/25/18 at 01:36; Status DC Info (PHARMACY MONITORING -- do not chart) 1 each PRN DAILY PRN MC SEE COMMENTS; Start 12/24/18 at 13:45 Active Scripts Active Keflex (Cephalexin) 500 Mg Capsule 1 Cap PO TID Pinky-Shreya Tablet (Folic Acid/Vitamin B Comp W-C) 0.8 Mg Tablet 1 Tab PO DAILY Hydrocodone-Apap 10-325 (Hydrocodone Bit/Acetaminophen) 1 Tab Tablet 1 Tab PO PRN Q4HRS PRN [Darbepoetin Jarrett In Polysorbat] 60 MCG/0.3 ML Disp.syrin 60 Mcg SQ WEEKLYHS 30 Days Alprazolam 0.5 Mg Tablet 0.5 Mg PO PRN TID PRN MDD 1 Tylenol (Acetaminophen) 325 Mg Capsule 650 Mg PO Q6-8HRS PRN Zantac (Ranitidine Hcl) 300 Mg Tablet 1 Tab PO QHS Compazine (Prochlorperazine Maleate) 5 Mg Tablet 5 Mg PO PRN TID PRN 10 Days [Pantoprazole] 40 MG Tablet. 40 Mg PO DAILYAC 30 Days Reported Zoloft (Sertraline Hcl) 50 Mg Tablet 50 Mg PO DAILY Lisinopril 20 Mg Tablet 20 Mg PO DAILY Coreg (Carvedilol) 6.25 Mg Tablet 6.25 Mg PO BIDWMEALS Vijayon 6,000 Units Capsule (Lipase/Protease/Amylase) 1 Each Capsule. 1 Tab PO TID Proair Hfa (Albuterol Sulfate) 8.5 Gm Hfa.aer.ad 2 Puff INH BID PRN Levothyroxine Sodium 50 Mcg Tablet 1 Tab PO DAILY Clonidine Tts-2 (Clonidine) 1 Each Patch.tdwk 1 Patch TD WEEKLY Amlodipine Besylate 5 Mg Tablet 10 Mg PO DAILY Atorvastatin Calcium 40 Mg Tablet 40 Mg PO HS Latanoprost 2.5 Ml Drops 1 Drop EACHEYE HS Vital Signs Vital Signs Date Time Temp Pulse Resp B/P (MAP) Pulse Ox O2 Delivery O2 Flow Rate FiO2 12/26/18 08:17 69 126/54 12/26/18 08:16 95 Room Air 2.0 12/26/18 07:15 97.3 18 97.3 Labs Laboratory Tests Test 12/24/18 17:21 12/24/18 21:11 12/25/18 02:33 12/25/18 08:07 Glucose (Fingerstick) 129 mg/dL (70-99) 150 mg/dL (70-99) 115 mg/dL (70-99) White Blood Count 10.4 x10^3/uL (4.0-11.0) Red Blood Count 2.96 x10^6/uL (3.50-5.40) Hemoglobin 8.7 g/dL (12.0-15.5) Hematocrit 26.0 % (36.0-47.0) Mean Corpuscular Volume 88 fL (79-100) Mean Corpuscular Hemoglobin 29 pg (25-35) Mean Corpuscular Hemoglobin Concent 33 g/dL (31-37) Red Cell Distribution Width 17.5 % (11.5-14.5) Platelet Count 311 x10^3/uL (140-400) Neutrophils (%) (Auto) 80 % (31-73) Lymphocytes (%) (Auto) 11 % (24-48) Monocytes (%) (Auto) 8 % (0-9) Eosinophils (%) (Auto) 1 % (0-3) Basophils (%) (Auto) 1 % (0-3) Neutrophils # (Auto) 8.3 x10^3/uL (1.8-7.7) Lymphocytes # (Auto) 1.1 x10^3/uL (1.0-4.8) Monocytes # (Auto) 0.8 x10^3/uL (0.0-1.1) Eosinophils # (Auto) 0.1 x10^3/uL (0.0-0.7) Basophils # (Auto) 0.1 x10^3/uL (0.0-0.2) Sodium Level 139 mmol/L (136-145) Potassium Level 4.9 mmol/L (3.5-5.1) Chloride Level 99 mmol/L (98-107) Carbon Dioxide Level 31 mmol/L (21-32) Anion Gap 9 (6-14) Blood Urea Nitrogen 26 mg/dL (7-20) Creatinine 3.7 mg/dL (0.6-1.0) Estimated GFR (Cockcroft-Gault) 15.3 BUN/Creatinine Ratio 7 (6-20) Glucose Level 144 mg/dL (70-99) Calcium Level 9.6 mg/dL (8.5-10.1) Total Bilirubin 0.4 mg/dL (0.2-1.0) Aspartate Amino Transf (AST/SGOT) 30 U/L (15-37) Alanine Aminotransferase (ALT/SGPT) 7 U/L (14-59) Alkaline Phosphatase 86 U/L (46-116) Total Protein 7.2 g/dL (6.4-8.2) Albumin 2.3 g/dL (3.4-5.0) Albumin/Globulin Ratio 0.5 (1.0-1.7) Test 12/25/18 11:40 12/25/18 17:19 12/26/18 07:17 Glucose (Fingerstick) 102 mg/dL (70-99) 86 mg/dL (70-99) 107 mg/dL (70-99) Laboratory Tests Test 12/25/18 17:19 12/26/18 07:17 Glucose (Fingerstick) 86 mg/dL (70-99) 107 mg/dL (70-99) Allergies Allergies Coded Allergies Type Severity Reaction Last Updated Verified No Known Drug Allergies 12/20/18 No Disposition/Orders: D/C to Home w/ HH Patient Instructions d/c planning 36 min SANGEETHA MUELLER MD Dec 26, 2018 12:40
[2018-12-26] MEDS ORDERED: ONDA4TAB12 PO (12:47)
[2018-12-26] MEDS ORDERED: VANC1PIG IV (12:47)
[2018-12-26] MEDS ORDERED: CLOP75TA PO (12:47)
[2018-12-26] MEDS ORDERED: CEFEPIME HCL IVP (12:47)
[2018-12-26] MEDS ORDERED: LACT1CAP19 PO (12:47)
[2018-12-26] MEDS ORDERED: INSU100I11 SQ (12:47)
--- NOTE | 2018-12-26 12:48 | SNU/HH DC ---
DISCHARGE WITH HOME HEALTH DISCHARGE INFORMATION: Final Diagnosis: Problems Medical Problems: (1) Anemia Status: Chronic (2) Diabetic peripheral neuropathy associated with type 2 diabetes mellitus Status: Chronic (3) ESRD on hemodialysis Status: Chronic (4) Fall Status: Acute (5) Hyperglycemia Status: Acute (6) Hyperkalemia Status: Acute (7) PAD (peripheral artery disease) Status: Chronic Condition on Discharge: Stable CODE STATUS: Code Status: Full HOME HEALTH: Face to Face: I certify this patient is under my care and that I, or a nurse practitioner or physician's administrative sales assistant working with me, had a face to face encounter that meets the physician face to face encounter requirements with this patient on []. Medical Complications: DM Usp For: Admin/Educate Injections RN For Eval/Treatment: Yes Physical Therapy For: Evalulation/Treatment Occupational Therapy For: Evaluation/Treatment Speech Language Pathology For: Evaluation/Treatment Home Health Aide For: Self-care BISCUITWARE BRUSHER For: Community Resources Pt Meets Homebound Status: Unsteady balance w/ amb, POST DISCHARGE ORDERS: Activity Instructions for Disc: Activity as tolerated Weight Bearing Status after Di: As tolerated DIET AFTER DISCHARGE: Renal Wound/Incision Care: Other, see below CHECKS AFTER DISCHARGE: Checks after discharge: Check blood sugar, ac/hs TREATMENT/EQUIPMENT ORDERS: Adaptive Equipment Issued: Walker Discharge Respiratory Equipmen: Oxygen CERTIFICATION STATEMENT: Certification Statement: Certification Statement: Based on the above finding, I certify that this patient is confined to the home and needs intermittent mcfp care, physical therapy and/or speech therapy, or continues to need occupational therapy.~ This patient is under my care, and I have initiated the establishment of the plan of care.~ This patient will be followed by myself or a community physician who will periodically review the plan of care. Home Meds Active Scripts Insulin Lispro (HUMALOG) 100 Unit/1 Ml Insuln.pen, 0 UNITS SQ TIDWMEALS for glucose for 28 Days, #3 EACH Prov:SANGEETHA MUELLER MD 12/26/18 Lactobacillus Rhamnosus Gg (CULTURELLE) 1 Each Cap.sprink, 1 CAP PO BID for supplement for 30 Days, #60 CAP Prov:SANGEETHA MUELLER MD 12/26/18 Ondansetron (ONDANSETRON ODT) 4 Mg Tab.rapdis, 4 MG PO PRN Q6HRS PRN for NAUSEA/VOMITING 1ST CHOICE for 28 Days, #30 TAB Prov:SANGEETHA MUELLER MD 12/26/18 Clopidogrel Bisulfate (CLOPIDOGREL) 75 Mg Tablet, 75 MG PO DAILYWBKFT for pvd for 30 Days, #30 TAB Prov:SANGEETHA MUELLER MD 12/26/18 Vancomycin/Water For Inj (Peg) (Vancomycin 1 Gram/200 ml Bag) 1 Gm/200 Ml Piggyback, 1 GM IV 3X/WEEK for infection for 28 Days, EACH Prov:SANGEETHA MUELLER MD 12/26/18 [CEFEPIME HCL IV Push] 1 GM VIAL No Conflict Check, 1 GM IVP Q24H for infection for 28 Days, #28 EACH Prov:SANGEETHA MUELLER MD 12/26/18 Folic Acid/Vitamin B Comp W-C (JOSE GUADALUPE-TORY TABLET) 0.8 Mg Tablet, 1 TAB PO DAILY for esrd, #30 TAB Prov:PRABHAKAR MOSQUERA MD 12/10/18 Acetaminophen (Tylenol) 325 Mg Capsule, 650 MG PO Q6-8HRS PRN for PAIN, #20 CAP Prov:KIMBERLY DONOHUE MD 11/14/18 Ranitidine Hcl (ZANTAC) 300 Mg Tablet, 1 TAB PO QHS for reflux, #90 TAB 3 Refills Prov:DANIELA ALMAZAN DO 08/29/18 Prochlorperazine Maleate (Compazine) 5 Mg Tablet, 5 MG PO PRN TID PRN for NAUSEA for 10 Days, #30 TAB Prov:FELI SHAH MD 08/26/18 [Pantoprazole] 40 MG TABLET.DR Cassidy Conflict Check, 40 MG PO DAILYAC for GERD for 30 Days, #30 2 Refills Prov:FELI SHAH MD 03/07/18 Reported Medications Sertraline Hcl (ZOLOFT) 50 Mg Tablet, 50 MG PO DAILY for ANTI-DEPRESSANT, TAB 0 Refills 05/27/18 Lisinopril (LISINOPRIL) 20 Mg Tablet, 20 MG PO DAILY for FOR HYPERTENSION, TAB 0 Refills 05/27/18 Carvedilol (COREG ) 6.25 Mg Tablet, 6.25 MG PO BIDWMEALS for CARDIAC, TAB 05/08/18 Lipase/Protease/Amylase (ELVIA [place] 6,000 UNITS CAPSULE) 1 Each Capsule.dr, 1 TAB PO TID for digestion 04/23/18 Albuterol Sulfate (Proair Hfa) 8.5 Gm Hfa.aer.ad, 2 PUFF INH BID PRN for SHORTNESS OF BREATH, INHALER 03/22/18 Levothyroxine Sodium (LEVOTHYROXINE SODIUM) 50 Mcg Tablet, 1 TAB PO DAILY for thyroid, #30 TAB 5 Refills 03/22/18 Clonidine (CLONIDINE TTS-2 ) 1 Each Patch.tdwk, 1 PATCH TD WEEKLY for blood pressure, PATCH 03/22/18 Amlodipine Besylate (AMLODIPINE BESYLATE) 5 Mg Tablet, 10 MG PO DAILY for blood pressure 12/05/17 Atorvastatin Calcium (ATORVASTATIN CALCIUM) 40 Mg Tablet, 40 MG PO HS for cholesterol 12/05/17 Latanoprost (LATANOPROST) 2.5 Ml Drops, 1 DROP EACHEYE HS 09/24/17 Discontinued Scripts Cephalexin (KEFLEX) 500 Mg Capsule, 1 CAP PO TID for prohylcatic, post bka, #21 CAP Prov:PRABHAKAR MOSQUERA MD 12/10/18 Hydrocodone Bit/Acetaminophen (HYDROCODONE-APAP 10-325 ) 1 Tab Tablet, 1 TAB PO PRN Q4HRS PRN for MODERATE TO SEVERE PAIN, #30 TAB Prov:PRABHAKAR MOSQUERA MD 12/10/18 [DARBEPOETIN AURELIO for DIALYSIS] 60 MCG/0.3 ML DISP.SYRIN No Conflict Check, 60 MCG SQ WEEKLYHS for esrd for 30 Days, DIS.SYR Prov:PRABHAKAR MOSQUERA MD 12/10/18 Alprazolam (ALPRAZOLAM) 0.5 Mg Tablet, 0.5 MG PO PRN TID PRN for ANXIETY / AGITATION MDD 1, #30 TAB Prov:PRABHAKAR MOSQUERA MD 12/10/18 SANGEETHA MUELLER MD Dec 26, 2018 12:48
[2018-12-26] MEDS ORDERED: fentaNYL PF VIAL 100 MCG/2 ML VIAL IV ONE (13:45)
--- NOTE | 2018-12-26 16:04 | NUR ---
SANTIAGO following pt. SANTIAGO phoned/ faxed orders to [facility] and confirmed plans. Pt already has transportation for her OP HD through her insurance ([facility]er had confirmed this by calling member services). Pt agreeable with plans and aware nurse will visit her tomorrow. Pt reported her daughter is able to take her home. Wound care to place home wound vac prior dc. Discussed with RN.
--- NOTE | 2018-12-26 16:17 | NUR ---
Wound Care Wound care consult for left foot open amp site of 4th and 5th toes. Removed dressing, cleansed with saline and reapplied wound vac with davila foam at 125 mmHg continuous pressure, bridged to lateral lower leg. Recommend to change vac on Monday and Tuesdays. Pt able to tolerate vac application with some complaints of burning sensation after turning vac back on. Pt home vac was applied at this time. Pt signed POD and faxed to [facility]. Pt will have HHRN to change dressings after discharge, pt refused follow up with [employer] due to transportation issues. Pt states she will require a bedside commode for home use in order to keep weight off of her foot as her Wheelchair won't fit in her bathroom. Discussed with her that HH will be able to assist her with obtaining this. Stressed to pt importance of keeping dressing clean, dry and intact and allowing HHRN to do dressing changes as ordered. Pt agreed so she won't get any more infections.
[2018-12-26] MEDS: VANCOMYCIN 500 MG in IV NORMAL SALINE 100ML 100 ML IV SCH (16:34)
[2018-12-26 17:01] VITALS: BP 126/54
--- NOTE | 2018-12-26 19:16 | NUR ---
Discharge Note: OTTONIEL SMITH [address] Discharge instructions and discharge home medications reviewed with Patient and a copy given. All questions have been answered and understanding verbalized. The following instructions and handouts were given: ESRD, Wound Vac Discontinued lines and drains: Peripheral IV intact. Patient discharged to Home w/services with Family Member via Wheelchair walked off unit by JANE and RN
== END 2018-12-26 19:17 | disposition home health service (06) | DRG 239 ==
LOC: ER 01:13 → 2 NORTH 03:30 → 6 SOUTH 18:41 → 5 SOUTH 12-16 21:17
PROVIDERS: ADMIT Family Medicine; ATTEND Family Medicine
PROC: 0Y6N0ZD Detachment at Left Foot, Partial 4th Ray, Open Approach (ICD-10-PCS; principal; 2018-12-14)
PROC: 0QBP0ZZ Excision of Left Metatarsal, Open Approach (ICD-10-PCS; 2018-12-14)
PROC: 5A1D70Z Performance of Urinary Filtration, Intermittent, Less than 6 Hours Per Day (ICD-10-PCS; 2018-12-14)
PROC: 5A1D70Z Performance of Urinary Filtration, Intermittent, Less than 6 Hours Per Day (ICD-10-PCS; 2018-12-17)
PROC: 5A1D70Z Performance of Urinary Filtration, Intermittent, Less than 6 Hours Per Day (ICD-10-PCS; 2018-12-19)
PROC: 5A1D70Z Performance of Urinary Filtration, Intermittent, Less than 6 Hours Per Day (ICD-10-PCS; 2018-12-21)
PROC: 5A1D70Z Performance of Urinary Filtration, Intermittent, Less than 6 Hours Per Day (ICD-10-PCS; 2018-12-24)
DX: I70.269 Atherosclerosis of native arteries of extremities with gangrene, unspecified extremity (principal); N18.6 End stage renal disease; E43 Unspecified severe protein-calorie malnutrition; T79.7XXA Traumatic subcutaneous emphysema, initial encounter; I13.2 Hypertensive heart and chronic kidney disease with heart failure and with stage 5 chronic kidney disease, or end stage renal disease; E11.52 Type 2 diabetes mellitus with diabetic peripheral angiopathy with gangrene; E87.5 Hyperkalemia; D63.1 Anemia in chronic kidney disease; D72.829 Elevated white blood cell count, unspecified; E03.9 Hypothyroidism, unspecified; E11.22 Type 2 diabetes mellitus with diabetic chronic kidney disease; E11.42 Type 2 diabetes mellitus with diabetic polyneuropathy; E11.65 Type 2 diabetes mellitus with hyperglycemia; E78.5 Hyperlipidemia, unspecified; F32.9 Major depressive disorder, single episode, unspecified; F41.9 Anxiety disorder, unspecified; G89.29 Other chronic pain; I16.0 Hypertensive urgency; E21.3 Hyperparathyroidism, unspecified; I50.9 Heart failure, unspecified; J44.9 Chronic obstructive pulmonary disease, unspecified; W18.39XA Other fall on same level, initial encounter; Z66 Do not resuscitate; Z82.49 Family history of ischemic heart disease and other diseases of the circulatory system; Z89.511 Acquired absence of right leg below knee; Z89.512 Acquired absence of left leg below knee; Z91.19 Patient's noncompliance with other medical treatment and regimen; Z90.710 Acquired absence of both cervix and uterus; Z99.2 Dependence on renal dialysis; Z87.891 Personal history of nicotine dependence; Z79.4 Long term (current) use of insulin; Y93.89 Activity, other specified; Y92.89 Other specified places as the place of occurrence of the external cause; Y99.8 Other external cause status
CPT/HCPCS: 36415; 73562; 73590; 73630; 80053; 80069; 80202; 82962; 83605; 83735; 85007; 85025; 85651; 86140; 87040; 88305; 88311; 93926; 94640; 96372; 96374; 96375; 99284; J0692; J0696; J0780; J0882; J1100; J1815; J2001; J2270; J2405; J2543; J2704; J3010; J3370; J3490; J7030; J7050; Q0162; Q0163; Q0164; 99285-25; 99291-25; A4461; G0378

== ENCOUNTER 2019-01-22 16:55 | Inpatient (IN) | payer OTHER ==
[~2019-01-22] VITALS: Ht 157.5 cm; Wt 49.9 kg
[~2019-01-22 16:55] MED LIST changes: +CEFEPIME HCL IVP; +CLOP75TA PO; +INSU100I11 SQ; +LACT1CAP19 PO; +ONDA4TAB12 PO; +VANC1PIG IV
[2019-01-22] MEDS ORDERED: HYDROmorphone 2 MG/ML VIAL IV STA (17:15)
--- NOTE | 2019-01-22 17:27 | PHYS DOC ---
Past Medical History Past Medical History: Diabetes-Type II, Hypertension, Renal Failure Additional Past Medical Histor: neuropathy, cataracts,CHRONIC PAIN,ESRD Past Surgical History: Hysterectomy, Other Additional Past Surgical Histo: PICC PLACEMENT, R BKA, SHUNT Alcohol Use: None Drug Use: None Adult General Chief Complaint Chief Complaint: LOWER EXT PAIN HPI HPI Patient is a 58 year old female who is well-known to me who presents to emergency Department for left foot pain that started this morning. The patient has a history diabetes, and end-stage renal disease and she missed her dialysis yesterday. The patient also states she's been having nausea and vomiting and shortness of breath since this morning. The patient has a right below the knee amputation. But she states on her left were her fourth and fifth toes recently amputated she's been having increased pain to her wound. She rates her pain as 10 out of 10 in severity and sharp. She had oxygen saturation of 79% on arrival to ED. She is usually not on oxygen. Review of Systems Review of Systems Constitutional: Denies fever or chills [] Eyes: Denies change in visual acuity, redness, or eye pain [] HENT: Denies nasal congestion or sore throat [] Respiratory: Reports shortness of breath. Cardiovascular: No additional information not addressed in HPI [] GI: Reports nausea, and vomiting. Denies abdominal pain, bloody stools or diarrhea [] : Denies dysuria or hematuria [] Musculoskeletal: Reports L foot pain, 3rd and fourth digits. Integument: Denies rash or skin lesions [] Neurologic: Denies headache, focal weakness or sensory changes [] Endocrine: Denies polyuria or polydipsia [] Complete systems were reviewed and found to be within normal limits, except as documented in this note. Current Medications Current Medications Current Medications Medications (Trade) Dose Ordered Sig/Clarence Start Time Stop Time Status Last Admin Dose Admin Azithromycin 250 ml @ 250 mls/hr 1X STAT 01/22/19 19:02 01/22/19 20:01 Ceftriaxone Sodium (Rocephin) 1 gm 1X STAT 01/22/19 19:02 01/22/19 19:07 DC Hydromorphone HCl (Dilaudid) 0.5 mg 1X STAT 01/22/19 18:33 01/22/19 18:36 DC 01/22/19 18:47 0.5 MG Ondansetron HCl (Zofran) 4 mg 1X ONCE 01/22/19 17:45 01/22/19 17:46 DC 01/22/19 17:49 4 MG Prochlorperazine Edisylate (Compazine) 10 mg 1X ONCE 01/22/19 18:15 01/22/19 18:16 DC 01/22/19 18:16 10 MG Vancomycin HCl 1.25 gm/Sodium Chloride 250 ml @ 166.667 mls/hr 1X ONCE 01/22/19 19:15 01/22/19 20:44 Vancomycin HCl 1.5 gm/Sodium Chloride 500 ml @ 250 mls/hr 1X ONCE 01/22/19 19:15 01/22/19 21:14 UNV Allergies Allergies Allergies Coded Allergies Type Severity Reaction Last Updated Verified No Known Drug Allergies 12/20/18 No Physical Exam Physical Exam Constitutional: Well developed, well nourished, no acute distress, non-toxic appearance. [] HENT: Normocephalic, atraumatic, bilateral external ears normal, oropharynx moist, no oral exudates, nose normal. [] Eyes: PERRLA, EOMI, conjunctiva normal, no discharge. [] Neck: Normal range of motion, no tenderness, supple, no stridor. [] Cardiovascular:Heart rate regular rhythm, no murmur [] Lungs & Thorax: Bilateral breath sounds clear to auscultation [] Abdomen: Bowel sounds normal, soft, no tenderness, no masses, no pulsatile masses. [] Skin: Warm, dry, no erythema, no rash. [] Back: No tenderness, no CVA tenderness. [] Extremities: No tenderness, no cyanosis, no clubbing, ROM intact, no edema. [] Neurologic: Alert and oriented X 3, normal motor function, normal sensory function, no focal deficits noted. [] Psychologic: Affect normal, judgement normal, mood normal. [] Current Patient Data Vital Signs Vital Signs Date Time Temp Pulse Resp B/P (MAP) Pulse Ox O2 Delivery O2 Flow Rate FiO2 01/22/19 18:47 18 96 Room Air 01/22/19 16:55 98.1 93 185/144 (158) 98.1 Lab Values Laboratory Tests Test 01/22/19 17:38 White Blood Count 10.9 x10^3/uL (4.0-11.0) Red Blood Count 3.64 x10^6/uL (3.50-5.40) Hemoglobin 11.3 g/dL (12.0-15.5) L Hematocrit 33.5 % (36.0-47.0) L Mean Corpuscular Volume 92 fL (79-100) Mean Corpuscular Hemoglobin 31 pg (25-35) Mean Corpuscular Hemoglobin Concent 34 g/dL (31-37) Red Cell Distribution Width 22.4 % (11.5-14.5) H Platelet Count 376 x10^3/uL (140-400) Neutrophils (%) (Auto) 83 % (31-73) H Lymphocytes (%) (Auto) 11 % (24-48) L Monocytes (%) (Auto) 5 % (0-9) Eosinophils (%) (Auto) 0 % (0-3) Basophils (%) (Auto) 1 % (0-3) Neutrophils # (Auto) 9.1 x10^3/uL (1.8-7.7) H Lymphocytes # (Auto) 1.2 x10^3/uL (1.0-4.8) Monocytes # (Auto) 0.5 x10^3/uL (0.0-1.1) Eosinophils # (Auto) 0.0 x10^3/uL (0.0-0.7) Basophils # (Auto) 0.1 x10^3/uL (0.0-0.2) Toxic Granulation Slight Platelet Estimate Adequate (ADEQUATE) Polychromasia Slight Anisocytosis Mod Sodium Level 140 mmol/L (136-145) Potassium Level 3.9 mmol/L (3.5-5.1) Chloride Level 100 mmol/L (98-107) Carbon Dioxide Level 29 mmol/L (21-32) Anion Gap 11 (6-14) Blood Urea Nitrogen 25 mg/dL (7-20) H Creatinine 4.6 mg/dL (0.6-1.0) H Estimated GFR (Cockcroft-Gault) 11.9 BUN/Creatinine Ratio 5 (6-20) L Glucose Level 133 mg/dL (70-99) H Lactic Acid Level 0.7 mmol/L (0.4-2.0) Calcium Level 9.2 mg/dL (8.5-10.1) Total Bilirubin 0.5 mg/dL (0.2-1.0) Aspartate Amino Transferase (AST) 26 U/L (15-37) Alanine Aminotransferase (ALT) 37 U/L (14-59) Alkaline Phosphatase 97 U/L (46-116) Troponin I Quantitative 0.051 ng/mL (0.000-0.055) Total Protein 7.3 g/dL (6.4-8.2) Albumin 3.0 g/dL (3.4-5.0) L Albumin/Globulin Ratio 0.7 (1.0-1.7) L Laboratory Tests 01/22/19 17:38 Laboratory Tests 01/22/19 17:38 EKG EKG EKG interpreted by Dr. Nielsen Sinus with rate of 94, leftward axis, mild ST depression in V6, with inverted T wave. Radiology/Procedures Radiology/Procedures L foot x-ray and Chest interpreted by Dr. Chavarria. L foot x-ray shows 4th and 5th digit amputations. Cannot rule out osteomyelitis. Chest shows fluids overload and pneumonia (bilateral lower lobes, right middle lobe). Course & Med Decision Making Course & Med Decision Making Pertinent Labs and Imaging studies reviewed. (See chart for details) Will get L foot x-ray, chest x-ray, labs, and give supportive care. Place on 5 L of 02 in room to get her to 93%. Labs are unremarkable for acute changes. Imaging shows pneumonia and fluid overload. Patient is on O2 in room. Will call Dr. Tomas for admission. Discussed with Dr. Tomas who agrees to admission (1922). Will consult ID and Nephrology. Dragon Disclaimer Dragon Disclaimer This electronic medical record was generated, in whole or in part, using a voice recognition dictation system. Departure Departure Impression: Primary Impression: Acute respiratory failure with hypoxia Additional Impressions: Noncompliance with renal dialysis Pneumonia Left foot pain Disposition: ADMITTED INPATIENT Admitting Physician: Vielka Tomas Condition: GUARDED Referrals: VIELKA TOMAS MD (PCP) Problem Qualifiers Additional Impressions: Pneumonia Pneumonia type: due to unspecified organism Laterality: bilateral Lung location: lower lobe of lung Qualified Codes: J18.1 - Lobar pneumonia, unspecified organism MARQUISE NARANJO APRN Jan 22, 2019 17:27
[2019-01-22] MEDS ORDERED: ONDANSETRON PF 4 MG/2 ML VIAL. IV ONE (17:45)
[2019-01-22 17:54] LABS: BASO # 0.1 x10^3/uL (0.0-0.2); BASO % 1 % (0-3); EOS % 0 % (0-3); HEMATOCRIT 33.5 % (36.0-47.0); HEMOGLOBIN 11.3 g/dL (12.0-15.5); LYMPH # 1.2 x10^3/uL (1.0-4.8); LYMPH % 11 % (24-48); MEAN CORPUSCULAR HEMOGLOBIN 31 pg (25-35); MEAN CORPUSCULAR HGB CONC 34 g/dL (31-37); MEAN CORPUSCULAR VOLUME 92 fL (79-100); MONO # 0.5 x10^3/uL (0.0-1.1); MONO % 5 % (0-9); NEUT # 9.1 x10^3/uL (1.8-7.7); NEUT % 83 % (31-73); PLATELET COUNT 376 x10^3/uL (140-400); RED BLOOD COUNT 3.64 x10^6/uL (3.50-5.40); RED CELL DISTRIBUTION WIDTH 22.4 % (11.5-14.5); WHITE BLOOD COUNT 10.9 x10^3/uL (4.0-11.0)
[2019-01-22 18:07] LABS: CALCIUM 9.2 mg/dL (8.5-10.1); CREATININE 4.6 mg/dL (0.6-1.0); GFR 11.9; POTASSIUM 3.9 mmol/L (3.5-5.1)
[2019-01-22 18:12] LABS: ALBUMIN/GLOBULIN RATIO 0.7 (1.0-1.7); TOTAL BILIRUBIN 0.5 mg/dL (0.2-1.0); TOTAL PROTEIN 7.3 g/dL (6.4-8.2)
[2019-01-22] MEDS ORDERED: PROCHLORPERAZINE 10 MG/2 ML VIAL. IV ONE (18:15)
[2019-01-22 18:22] LABS: ANISOCYTOSIS MOD; PLT ESTIMATE ADEQUATE (ADEQUATE)
[2019-01-22 18:23] LABS: POLYCHROMASIA SLIGHT; TOXIC GRANULATION SLIGHT
[2019-01-22] MEDS ORDERED: HYDROmorphone 2 MG/ML VIAL IVP STA (18:33)
[2019-01-22] MEDS ORDERED: cefTRIAXone IV Push 1 GM VIAL. IVP STA (19:02)
[2019-01-22] MEDS ORDERED: AZITHRMYCN 500MG IVPB FOR OMNI 250 ML IV STA (19:02)
[2019-01-22] MEDS ORDERED: VANCOMYCIN 1.5 GM in IV NORMAL SALINE 500ML BAG 500 ML IV ONE (19:15)
[2019-01-22] MEDS ORDERED: VANCOMYCIN 1.25 GM in IV NORMAL SALINE 250ML 250 ML IV ONE (19:15)
[2019-01-22 20:50] VITALS: BP 141/62
--- NOTE | 2019-01-22 20:55 | RAD ---
Exam: Chest one view INDICATION: Shortness of breath TECHNIQUE: Frontal view of the Comparisons: 11/26/2018 FINDINGS: Heart is enlarged. Pulmonary vessels are within normal limits. Airspace disease noted prominently in the right mid and lower lung. Trace left pleural effusion. IMPRESSION: Patchy airspace disease probably within the right mid and lower lung, favored represent pneumonia. Asymmetric edema is also possible. Follow-up imaging posttreatment to ensure resolution is recommended. Electronically signed by: Joshua Tellez MD (01/22/2019 8:52 PM) [facility]
[2019-01-22] MEDS ORDERED: NON FORMULARY ITEM (Ranitidine Hcl (Zantac) 1 TAB) PO SCH (21:00)
[2019-01-22] MEDS: LACTOBACILLUS RHAMNOSUS GG 1 CAPSULE. PO SCH (21:00)
[2019-01-22] MEDS ORDERED: ONDANSETRON ODT 4 MG TAB.RAPDIS. PO PRN (21:00)
[2019-01-22] MEDS ORDERED: PROCHLORPERAZINE 5 MG TABLET. PO PRN (21:00)
--- NOTE | 2019-01-22 21:16 | RAD ---
Exam: Left foot 3 views INDICATION: Foot pain TECHNIQUE: Frontal, lateral and oblique views of the left foot Comparisons: 12/14/2018 FINDINGS: Since the prior exam there is been interval amputation at the level of the proximal metatarsal fourth digit. Additionally there is also been reamputation of the fifth metatarsal the level of the proximal diaphysis. Mild overlying soft tissue swelling. No acute fractures are identified. Extensive vascular calcifications are noted. Joint spaces are well-maintained. IMPRESSION: Amputation deformities of the fourth and fifth digit as described above. Electronically signed by: Joshua Tellez MD (01/22/2019 9:13 PM) [facility]
[2019-01-22] MEDS: HYDROcodone/APAP 5/325MG 1 TAB TABLET PO PRN (21:44)
[2019-01-22 23:59] VITALS: BP 150/58
[2019-01-23 02:00] VITALS: BP 163/75
[2019-01-23] MEDS: HYDROcodone/APAP 5/325MG 1 TAB TABLET PO PRN ×3 (03:22→16:49)
--- NOTE | 2019-01-23 06:41 | NUR ---
Patient arrived to unit at around 2034 on 01/22/19 accompanied by ED nurse. Patient complains of 01/03 pain in her left foot. Patient states she missed dialysis on monday01/21/19. VS stable, Assessment complete. Wound care consulted for left foot wound. Patient states that she has trouble with transportation and would like to speak with someone about that. Also states that she would like to go to an assisted living facility, because she doesn't feel she has enough support at home (currently lives alone), patient states that she also cannot get into her bathroom due to small doorways and wheelchair doesn't fit. Patient currently requiring 5L NC to keep O2 Sat in mid to low 90's. Patient refused flu shot at this time, stated "Im not telling you if i got the flu shot because you have asked me this before". Bed in low locked position, call light in reach, will continue to monitor.
--- NOTE | 2019-01-23 06:46 | EKG ---
[facility] [address] [place] [address] Test Date: 2019-01-22 Test Time: 17:54:22 Pat Name: OTTONIEL SMITH Department: Room: Gender: F Slps: : 1960 Requested By: MARQUISE NARANJO Order Number: [id number] Reading MD: Measurements Intervals [place] Rate: 94 P: 10 MN: 138 QRS: 0 QRSD: 84 T: 147 QT: 366 QTc: 463 Interpretive Statements SINUS RHYTHM LEFTWARD AXIS LVH WITH REPOLARIZATION ABNORMALITY ABNORMAL ECG RI6.01 No previous ECG available for comparison
[2019-01-23 07:00] VITALS: BP 175/58
[2019-01-23] MEDS ORDERED: PANTOPRAZOLE 40 MG TABLET.DR. PO SCH (07:30)
[2019-01-23] MEDS ORDERED: VANCOMYCIN PER PHARMACY MC PRN (07:45)
[2019-01-23] MEDS ORDERED: PIP/TAZO PER PHARMACY MC PRN (07:45)
--- NOTE | 2019-01-23 07:57 | PDOC ---
Infectious Disease Note Subjective Subjective Known to service please see notes 12/20 and 12/24 C/o increasing foot pain started 01/22 - denies trauma No F/C/S/SOA/Rash/CP. Some N/V but missed HD 01/21 Has been using a wound vac at home and states she is getting IV abx but cannot remember what she is taking Admitted [facility] 01/14- 01/14 for Chest pain. In [facility] ER 01/19 for Chest and foot pain/vomiting ROS ROS o/w neg Vital Sign Vital Signs Vital Signs Date Time Temp Pulse Resp B/P (MAP) Pulse Ox O2 Delivery O2 Flow Rate FiO2 01/23/19 04:22 16 96 Nasal Cannula 4.5 01/23/19 02:00 97.7 76 163/75 (104) 97.7 Physical Exam PHYSICAL EXAM GENERAL: Propped up in bed, alert, NAD HEENT: nml conjunctiva, Oral cavity pink, moist NECK: Supple, no JVD LUNGS: Clear. HEART: S1, S2 ABDOMEN: Soft and nontender EXTREMITIES: Right bzoid-gnd-dnle amputation stump looks great, well-approx sutures. Left foot wound is clean but some tunneling posteriorly SKIN: Warm to touch NEUROLOGIC: Alert, answers questions appropriately PIV Labs Lab Laboratory Tests Test 01/22/19 17:38 01/23/19 05:59 White Blood Count 10.9 x10^3/uL (4.0-11.0) Red Blood Count 3.64 x10^6/uL (3.50-5.40) Hemoglobin 11.3 g/dL (12.0-15.5) Hematocrit 33.5 % (36.0-47.0) Mean Corpuscular Volume 92 fL (79-100) Mean Corpuscular Hemoglobin 31 pg (25-35) Mean Corpuscular Hemoglobin Concent 34 g/dL (31-37) Red Cell Distribution Width 22.4 % (11.5-14.5) Platelet Count 376 x10^3/uL (140-400) Neutrophils (%) (Auto) 83 % (31-73) Lymphocytes (%) (Auto) 11 % (24-48) Monocytes (%) (Auto) 5 % (0-9) Eosinophils (%) (Auto) 0 % (0-3) Basophils (%) (Auto) 1 % (0-3) Neutrophils # (Auto) 9.1 x10^3/uL (1.8-7.7) Lymphocytes # (Auto) 1.2 x10^3/uL (1.0-4.8) Monocytes # (Auto) 0.5 x10^3/uL (0.0-1.1) Eosinophils # (Auto) 0.0 x10^3/uL (0.0-0.7) Basophils # (Auto) 0.1 x10^3/uL (0.0-0.2) Toxic Granulation Slight Platelet Estimate Adequate (ADEQUATE) Polychromasia Slight Anisocytosis Mod Sodium Level 140 mmol/L (136-145) Potassium Level 3.9 mmol/L (3.5-5.1) Chloride Level 100 mmol/L (98-107) Carbon Dioxide Level 29 mmol/L (21-32) Anion Gap 11 (6-14) Blood Urea Nitrogen 25 mg/dL (7-20) Creatinine 4.6 mg/dL (0.6-1.0) Estimated GFR (Cockcroft-Gault) 11.9 BUN/Creatinine Ratio 5 (6-20) Glucose Level 133 mg/dL (70-99) Lactic Acid Level 0.7 mmol/L (0.4-2.0) Calcium Level 9.2 mg/dL (8.5-10.1) Total Bilirubin 0.5 mg/dL (0.2-1.0) Aspartate Amino Transf (AST/SGOT) 26 U/L (15-37) Alanine Aminotransferase (ALT/SGPT) 37 U/L (14-59) Alkaline Phosphatase 97 U/L (46-116) Troponin I Quantitative 0.051 ng/mL (0.000-0.055) Total Protein 7.3 g/dL (6.4-8.2) Albumin 3.0 g/dL (3.4-5.0) Albumin/Globulin Ratio 0.7 (1.0-1.7) Glucose (Fingerstick) 146 mg/dL (70-99) Micro IMPRESSION: Amputation deformities of the fourth and fifth digit as described above. IMPRESSION: Patchy airspace disease probably within the right mid and lower lung, favored represent pneumonia. Asymmetric edema is also possible. Follow-up imaging posttreatment to ensure resolution is recommended. Objective Assessment Left foot pain Patchy infiltrates but missed HD Left fourth toe open amputation and left fifth toe amp site I and D, 12/19. no cultures - wound vac at home Non adherence -has left AMA from several institutions and is refusing finger sticks and vitals Severe peripheral arterial disease. Diabetes. Hypertension. End-stage renal disease, on hemodialysis. 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 Plan Plan of Care [facility]ney and [facility] eval F/u labs and cults D/w nursing D/w YADIEL Cruz MD Jan 23, 2019 07:57
[2019-01-23] MEDS ORDERED: CLOPIDOGREL BISULFATE 75 MG TABLET PO SCH (08:00)
[2019-01-23] MEDS ORDERED: CARVEDILOL 6.25 MG TABLET. PO SCH (08:00)
[2019-01-23] MEDS ORDERED: INSULIN LISPRO 300 UNITS/3 ML VIAL. SQ SCH (08:00)
[2019-01-23] MEDS ORDERED: DEXTROSE 50% 25 GM / 50ML DISP.SYRIN. IV PRN (08:00)
[2019-01-23] MEDS: INSULIN LISPRO 300 UNITS/3 ML VIAL. SQ SCH ×2 (08:00→12:00)
--- NOTE | 2019-01-23 08:10 | PDOC ---
PROGRESS NOTES Subjective Subjective Patient c/o pain in left foot. Objective Objective Vital Signs Date Time Temp Pulse Resp B/P (MAP) Pulse Ox O2 Delivery O2 Flow Rate FiO2 01/23/19 07:00 20 175/58 (97) 98 Nasal Cannula 4.5 01/23/19 02:00 97.7 76 97.7 l Intake and Output 01/23/19 07:00 Intake Total 980 ml Output Total 25 ml Balance 955 ml Intake Oral 480 ml IV Total 500 ml Output Urine Total 25 ml Physical Exam Abdomen: Normal bowel sounds, Soft, No tenderness Heart: Regular rate Extremities: No edema, Other (well healed R BKA site. L foot dressing in place) General: Alert, Oriented X3, No acute distress Lungs: Other (BS decreased throughout otherwise CTA) Assessment Assessment Problems Medical Problems: (1) Acute respiratory failure with hypoxia Status: Acute (2) Left foot pain Status: Acute (3) Pneumonia Status: Acute Plan Plan of Care 1. Non-healing wound L foot, s/p amputation 4th and 5th toes with severe PAD. Apparently had wound vac at home and some [facility], patient does not provide many details of her care. Will consult [facility] to help with ongoing treatment. Will continue with po pain meds only, patient does have history of polysubstance abuse and drug-seeking behavior. 2. ESRD - patient denies recently missing dialysis. Continue with her regular treatments while hospitalized. 3. HTN - continue home medications. 4. DM2 - continue insulin if able. FSBG and SS ordered but patient is presently not allowing nursing to check FSBG. 5. CHF with systolic and diastolic dysfunction - appears stable presently. Patient recently had stress test at [facility] that was without evidence of ischemia. 6. hypothyroidism - has not always been compliant with taking Levothryoxine, continue to give daily while she is here. Comment Review of Relevant I have reviewed the following items pamela (where applicable) has been applied. Labs Laboratory Tests Test 01/22/19 17:38 01/23/19 05:59 White Blood Count 10.9 x10^3/uL (4.0-11.0) Red Blood Count 3.64 x10^6/uL (3.50-5.40) Hemoglobin 11.3 g/dL (12.0-15.5) Hematocrit 33.5 % (36.0-47.0) Mean Corpuscular Volume 92 fL (79-100) Mean Corpuscular Hemoglobin 31 pg (25-35) Mean Corpuscular Hemoglobin Concent 34 g/dL (31-37) Red Cell Distribution Width 22.4 % (11.5-14.5) Platelet Count 376 x10^3/uL (140-400) Neutrophils (%) (Auto) 83 % (31-73) Lymphocytes (%) (Auto) 11 % (24-48) Monocytes (%) (Auto) 5 % (0-9) Eosinophils (%) (Auto) 0 % (0-3) Basophils (%) (Auto) 1 % (0-3) Neutrophils # (Auto) 9.1 x10^3/uL (1.8-7.7) Lymphocytes # (Auto) 1.2 x10^3/uL (1.0-4.8) Monocytes # (Auto) 0.5 x10^3/uL (0.0-1.1) Eosinophils # (Auto) 0.0 x10^3/uL (0.0-0.7) Basophils # (Auto) 0.1 x10^3/uL (0.0-0.2) Toxic Granulation Slight Platelet Estimate Adequate (ADEQUATE) Polychromasia Slight Anisocytosis Mod Sodium Level 140 mmol/L (136-145) Potassium Level 3.9 mmol/L (3.5-5.1) Chloride Level 100 mmol/L (98-107) Carbon Dioxide Level 29 mmol/L (21-32) Anion Gap 11 (6-14) Blood Urea Nitrogen 25 mg/dL (7-20) Creatinine 4.6 mg/dL (0.6-1.0) Estimated GFR (Cockcroft-Gault) 11.9 BUN/Creatinine Ratio 5 (6-20) Glucose Level 133 mg/dL (70-99) Lactic Acid Level 0.7 mmol/L (0.4-2.0) Calcium Level 9.2 mg/dL (8.5-10.1) Total Bilirubin 0.5 mg/dL (0.2-1.0) Aspartate Amino Transf (AST/SGOT) 26 U/L (15-37) Alanine Aminotransferase (ALT/SGPT) 37 U/L (14-59) Alkaline Phosphatase 97 U/L (46-116) Troponin I Quantitative 0.051 ng/mL (0.000-0.055) Total Protein 7.3 g/dL (6.4-8.2) Albumin 3.0 g/dL (3.4-5.0) Albumin/Globulin Ratio 0.7 (1.0-1.7) Glucose (Fingerstick) 146 mg/dL (70-99) Laboratory Tests Test 01/22/19 17:38 01/23/19 05:59 White Blood Count 10.9 x10^3/uL (4.0-11.0) Red Blood Count 3.64 x10^6/uL (3.50-5.40) Hemoglobin 11.3 g/dL (12.0-15.5) Hematocrit 33.5 % (36.0-47.0) Mean Corpuscular Volume 92 fL (79-100) Mean Corpuscular Hemoglobin 31 pg (25-35) Mean Corpuscular Hemoglobin Concent 34 g/dL (31-37) Red Cell Distribution Width 22.4 % (11.5-14.5) Platelet Count 376 x10^3/uL (140-400) Neutrophils (%) (Auto) 83 % (31-73) Lymphocytes (%) (Auto) 11 % (24-48) Monocytes (%) (Auto) 5 % (0-9) Eosinophils (%) (Auto) 0 % (0-3) Basophils (%) (Auto) 1 % (0-3) Neutrophils # (Auto) 9.1 x10^3/uL (1.8-7.7) Lymphocytes # (Auto) 1.2 x10^3/uL (1.0-4.8) Monocytes # (Auto) 0.5 x10^3/uL (0.0-1.1) Eosinophils # (Auto) 0.0 x10^3/uL (0.0-0.7) Basophils # (Auto) 0.1 x10^3/uL (0.0-0.2) Toxic Granulation Slight Platelet Estimate Adequate (ADEQUATE) Polychromasia Slight Anisocytosis Mod Sodium Level 140 mmol/L (136-145) Potassium Level 3.9 mmol/L (3.5-5.1) Chloride Level 100 mmol/L (98-107) Carbon Dioxide Level 29 mmol/L (21-32) Anion Gap 11 (6-14) Blood Urea Nitrogen 25 mg/dL (7-20) Creatinine 4.6 mg/dL (0.6-1.0) Estimated GFR (Cockcroft-Gault) 11.9 BUN/Creatinine Ratio 5 (6-20) Glucose Level 133 mg/dL (70-99) Lactic Acid Level 0.7 mmol/L (0.4-2.0) Calcium Level 9.2 mg/dL (8.5-10.1) Total Bilirubin 0.5 mg/dL (0.2-1.0) Aspartate Amino Transf (AST/SGOT) 26 U/L (15-37) Alanine Aminotransferase (ALT/SGPT) 37 U/L (14-59) Alkaline Phosphatase 97 U/L (46-116) Troponin I Quantitative 0.051 ng/mL (0.000-0.055) Total Protein 7.3 g/dL (6.4-8.2) Albumin 3.0 g/dL (3.4-5.0) Albumin/Globulin Ratio 0.7 (1.0-1.7) Glucose (Fingerstick) 146 mg/dL (70-99) Medications Current Medications Ondansetron HCl (Zofran) 4 mg 1X ONCE IV Last administered on 01/22/19at 17:49; Start 01/22/19 at 17:45; Stop 01/22/19 at 17:46; Status DC Hydromorphone HCl (Dilaudid) 0.5 mg 1X STAT IV Last administered on 01/22/19at 17:50; Start 01/22/19 at 17:15; Stop 01/22/19 at 17:18; Status DC Prochlorperazine Edisylate (Compazine) 10 mg 1X ONCE IV Last administered on 01/22/19at 18:16; Start 01/22/19 at 18:15; Stop 01/22/19 at 18:16; Status DC Hydromorphone HCl (Dilaudid) 0.5 mg 1X STAT IVP Last administered on 01/22/19at 18:47; Start 01/22/19 at 18:33; Stop 01/22/19 at 18:36; Status DC Ceftriaxone Sodium (Rocephin) 1 gm 1X STAT IVP Last administered on 01/22/19at 19:28; Start 01/22/19 at 19:02; Stop 01/22/19 at 19:07; Status DC Azithromycin 250 ml @ 250 mls/hr 1X STAT IV Last administered on 01/22/19at 19:28; Start 01/22/19 at 19:02; Stop 01/22/19 at 20:01; Status DC Vancomycin HCl 1.5 gm/Sodium Chloride 500 ml @ 250 mls/hr 1X ONCE IV ; Start 01/22/19 at 19:15; Stop 01/22/19 at 21:14; Status UNV Vancomycin HCl 1.25 gm/Sodium Chloride 250 ml @ 166.667 mls/hr 1X ONCE IV Last administered on 01/22/19at 21:40; Start 01/22/19 at 19:15; Stop 01/22/19 at 20:44; Status DC Carvedilol (Coreg) 6.25 mg BIDWMEALS PO ; Start 01/23/19 at 08:00 Lactobacillus Rhamnosus (Culturelle) 1 cap BID PO ; Start 01/22/19 at 21:00 Ondansetron HCl (Zofran Odt) 4 mg PRN Q6HRS PRN PO NAUSEA/VOMITING 1ST CHOICE; Start 01/22/19 at 21:00 Prochlorperazine Maleate (Compazine) 5 mg PRN TID PRN PO NAUSEA 2ND CHOICE; Start 01/22/19 at 21:00 Amylase/Lipase/ Protease (Zenpep 5,000) 1 cap TIDWMEALS PO ; Start 01/23/19 at 08:00 Non-Formulary Medication (Ranitidine Hcl (Zantac)) 1 tab QHS PO ; Start at 21:00; Status UNV Pantoprazole Sodium (Protonix) 40 mg DAILYAC PO ; Start 01/23/19 at 07:30 Acetaminophen/ Hydrocodone Bitart (Lortab 5/325) 1 tab PRN Q6HRS PRN PO MODERATE PAIN 4-6 Last administered on 01/23/19at 03:22; Start 01/22/19 at 21: 15 Morphine Sulfate (Ms Contin) 30 mg BID PO ; Start 01/23/19 at 09:00 Insulin Human Lispro (HumaLOG) 0-7 UNITS TIDWMEALS SQ ; Start 01/23/19 at 08:00 Dextrose (Dextrose 50%-Water Syringe) 12.5 gm PRN Q15MIN PRN IV SEE COMMENTS; Start 01/23/19 at 08:00 Vancomycin HCl (Vanco Per Pharmacy) 1 each PRN DAILY PRN MC SEE COMMENTS; Start 01/23/19 at 07:45 Piperacillin Sod/ Tazobactam Sod (Zosyn Per Pharmacy) 1 each PRN DAILY PRN MC SEE COMMENTS; Start 01/23/19 at 07:45 Piperacillin Sod/ Tazobactam Sod 2.25 gm/Sodium Chloride 50 ml @ 100 mls/hr Q8HRS IV ; Start 01/23/19 at 08:30 Active Scripts Active Humalog (Insulin Lispro) 100 Unit/1 Ml Insuln.pen 0 Units SQ TIDWMEALS 28 Days Culturelle (Lactobacillus Rhamnosus Gg) 1 Each Cap.sprink 1 Cap PO BID 30 Days Ondansetron Odt (Ondansetron) 4 Mg Tab.rapdis 4 Mg PO PRN Q6HRS PRN 28 Days Clopidogrel (Clopidogrel Bisulfate) 75 Mg Tablet 75 Mg PO DAILYWBKFT 30 Days Vancomycin 1 Gram/200 ml Bag (Vancomycin/Water For Inj (Peg)) 1 Gm/200 Ml Piggyback 1 Gm IV 3X/WEEK 28 Days [Cefepime Hcl] 1 GM Vial 1 Gm IVP Q24H 28 Days Pinky-Shreya Tablet (Folic Acid/Vitamin B Comp W-C) 0.8 Mg Tablet 1 Tab PO DAILY Tylenol (Acetaminophen) 325 Mg Capsule 650 Mg PO Q6-8HRS PRN Zantac (Ranitidine Hcl) 300 Mg Tablet 1 Tab PO QHS Compazine (Prochlorperazine Maleate) 5 Mg Tablet 5 Mg PO PRN TID PRN 10 Days [Pantoprazole] 40 MG Tablet. 40 Mg PO DAILYAC 30 Days Reported Zoloft (Sertraline Hcl) 50 Mg Tablet 50 Mg PO DAILY Lisinopril 20 Mg Tablet 20 Mg PO DAILY Coreg (Carvedilol) 6.25 Mg Tablet 6.25 Mg PO BIDWMEALS Vijayon 6,000 Units Capsule (Lipase/Protease/Amylase) 1 Each Capsule. 1 Tab PO TID Proair Hfa (Albuterol Sulfate) 8.5 Gm Hfa.aer.ad 2 Puff INH BID PRN Levothyroxine Sodium 50 Mcg Tablet 1 Tab PO DAILY Clonidine Tts-2 (Clonidine) 1 Each Patch.tdwk 1 Patch TD WEEKLY Amlodipine Besylate 5 Mg Tablet 10 Mg PO DAILY Atorvastatin Calcium 40 Mg Tablet 40 Mg PO HS Latanoprost 2.5 Ml Drops 1 Drop EACHEYE HS Vitals/I & O Vital Sign - Last 24 Hours 01/22/19 01/22/19 01/22/19 01/22/19 16:55 18:00 18:47 19:00 Temp 98.1 98.1 Pulse 93 94 76 Resp 20 18 18 18 B/P (MAP) 185/144 (158) 205/86 (125) 160/66 (97) Pulse Ox 84 94 96 94 O2 Delivery Room Air Nasal Cannula Room Air Nasal Cannula O2 Flow Rate 5.0 5.0 01/22/19 01/22/19 01/22/19 01/22/19 20:00 20:35 20:50 21:44 Temp 97.7 97.7 Pulse 82 78 Resp 18 16 16 B/P (MAP) 185/80 (115) 141/62 (88) Pulse Ox 93 100 100 O2 Delivery Nasal Cannula Nasal Cannula Nasal Cannula Nasal Cannula O2 Flow Rate 5.0 5.0 4.5 5.0 01/22/19 01/22/19 01/23/19 01/23/19 22:44 23:59 02:00 03:22 Temp 97.7 97.7 Pulse 75 76 Resp 16 16 16 16 B/P (MAP) 150/58 (88) 163/75 (104) Pulse Ox 100 96 96 O2 Delivery Nasal Cannula Nasal Cannula Nasal Cannula Nasal Cannula O2 Flow Rate 5.0 4.5 4.5 4.5 01/23/19 01/23/19 04:22 07:00 Resp 16 20 B/P (MAP) 175/58 (97) Pulse Ox 96 98 O2 Delivery Nasal Cannula Nasal Cannula O2 Flow Rate 4.5 4.5 Intake and Output 01/22/19 01/22/19 01/23/19 15:00 23:00 07:00 Intake Total 250 ml 730 ml Output Total 25 ml Balance 250 ml 705 ml GRACIELA JUAREZ MD Jan 23, 2019 08:10
--- NOTE | 2019-01-23 08:40 | HP ---
ADMIT DATE: 01/22/2019 CHIEF COMPLAINT: Left foot pain. HISTORY OF PRESENT ILLNESS: The patient is a 58-year-old female with a complex medical history including peripheral artery disease, end-stage renal disease and noncompliance with medical care. She presented to the Emergency Room with the above complaint. She had amputation of her left fourth and fifth toes during an admission here at [facility] earlier this month. She had apparently been seen [facility] and may even have had a wound VAC at home, although details of this are unclear. She came to the Emergency Room via ambulance stating that she was having increasing pain in her left foot. Evaluation in the Emergency Room showed the patient to be hypoxic on room air, but this improved quickly with oxygen per nasal cannula. She was started on IV antibiotics and admitted for further care. PAST MEDICAL HISTORY: Peripheral artery disease; end-stage renal disease, on dialysis; congestive heart failure with systolic and diastolic dysfunction; diabetes mellitus type 2; hypertension; hyperlipidemia; hypothyroidism; peripheral neuropathy; chronic pancreatitis. PAST SURGICAL HISTORY: Right BKA, 12/13; left fourth and fifth toe amputation, 01/12; hysterectomy. ALLERGIES: The patient has no known drug allergies. HOME MEDICATIONS: This list is taken from the chart. The patient is very unclear about what medication she has actually been taking at home. Albuterol p.r.n., amlodipine 10 mg daily, atorvastatin 40 mg daily, carvedilol 6.25 mg b.i.d., clonidine TTS patch 1 weekly, clopidogrel 75 mg daily, renal vitamin daily, Humalog insulin t.i.d. a.c., Latanoprost eyedrops, levothyroxine 50 mcg daily, Creon capsules 6000 units t.i.d., lisinopril 20 mg daily, ranitidine 300 mg at bedtime, sertraline 50 mg daily, pantoprazole 40 mg daily. The patient was also discharged on vancomycin and cefepime from her last admission to be given at dialysis. It is unknown whether this has been continued. FAMILY HISTORY: Noncontributory. SOCIAL HISTORY: The patient is single. She is disabled. She does smoke cigarettes. She has a history of polysubstance abuse. REVIEW OF SYSTEMS: The patient has not had fever or chills. She has chronic intermittent chest pain, which has not worsened recently. She denies unusual cough or shortness of breath. She denies abdominal pain. She reported to the ER that she has had some vomiting, but she has not had any emesis since her admission last evening. She told the Emergency Room that she had missed a dialysis treatment recently, which is not unusual for her. She is vague when asked if she has been on any narcotic pain medicine at home. There was none listed on her last discharge from [facility] or from [facility]. PHYSICAL EXAMINATION: GENERAL: The patient is alert and oriented x 3, sitting up in bed, in no acute distress. HEENT: PERRL. EOMI. Sclerae clear. Oropharynx: Mucous membranes moist. NECK: Supple, without lymphadenopathy. CHEST: Breath sounds decreased throughout, but otherwise clear to auscultation. No cough during exam. CARDIOVASCULAR: Regular rhythm. ABDOMEN: Soft, nontender, normoactive bowel sounds are present. Bilateral lower extremities do not have significant edema. There is a well-healed right [id number] amputation site. The left foot has a dressing in place and this is not removed. ASSESSMENT AND PLAN: 1. Nonhealing wound, left foot, status post amputation fourth and fifth toes with severe peripheral artery disease. It appears the patient was discharged with a wound VAC at some time. She states that the [facility] removed this, but further details on this are unknown. We will consult Infectious Disease[facility] to help with her care while she is here. We will continue with oral pain medication only as she does have a strong history of polysubstance abuse and drug-seeking behavior. 2. End-stage renal disease. Continue dialysis as scheduled. 3. Hypertension. Continue home medications. 4. Diabetes mellitus type 2. Continue with fingersticks and sliding scale if possible. The patient has presently declined to allow nursing to perform a fingerstick, so we will not give insulin at this time. 5. Congestive heart failure with systolic and diastolic dysfunction. This does appear stable presently. She had increased fluid seen on her chest x-ray at admission, but this may also have been due to a missed dialysis treatment. She did have a stress test recently at [facility] that was without evidence of ischemia. 6. Hypothyroidism. She has not always been compliant with taking levothyroxine. We will continue to give this daily while she is here. GRACIELA JUAREZ MD DR: Eliz JOB#: [id number] / [id number] MOJGAN
[2019-01-23] MEDS ORDERED: IV NORMAL SALINE 1000ML BAG 1,000 ML IV PRN ×2 (08:55)
[2019-01-23] MEDS ORDERED: amLODIPine BESYLATE 10 MG TABLET PO SCH (09:00)
[2019-01-23] MEDS ORDERED: ACETAMINOPHEN 500 MG TABLET PO PRN (09:00)
[2019-01-23] MEDS ORDERED: DIALYSIS PATIENT. MC PRN (09:00)
[2019-01-23] MEDS ORDERED: FOLIC/VIT B COMP W-C (RENAL) TABLET. PO SCH (09:00)
[2019-01-23] MEDS ORDERED: SERTRALINE 50 MG TABLET. PO SCH (09:00)
[2019-01-23] MEDS ORDERED: diphenhydrAMINE 50 MG/ML VIAL IV PRN ×2 (09:00)
[2019-01-23] MEDS ORDERED: LISINOPRIL 20 MG TABLET PO SCH (09:00)
[2019-01-23] MEDS ORDERED: cloNIDine TTS-2 1 PATCH PATCH TD SCH (09:00)
[2019-01-23] MEDS ORDERED: MORPHINE ER 30 MG TABLET.ER PO SCH (09:00)
[2019-01-23] MEDS ORDERED: LEVOTHYROXINE 50 MCG TABLET PO SCH (09:00)
--- NOTE | 2019-01-23 09:23 | PDOC2 ---
CONSULT Date of Consult Date of Consult DATE: 01/23/19 TIME: 09:13 Reason for Consult Reason for Consult: ESRD Source Source: Chart review History of Present Illness Reason for Visit: The patient is a 58-year-old female with a complex medical history including peripheral artery disease, end-stage renal disease and noncompliance with medical care. She came to the Emergency Room via ambulance stating that she was having increasing pain in her left foot. She had amputation of her left fourth and fifth toes during an admission here at [facility] earlier this month. Evaluation in the Emergency Room showed the yonis ent to be hypoxic on room air, but this improved quickly with oxygen per nasal cannula. She was started on IV antibiotics and a dmitted for further care. Denies fever or chills. She has chronic intermittent chest pain. She denies increase in rtness of breath. She reported to the ER that she has had some vomiting, but she has not had any emesis since her admission last evening. She told the Emergency Room that she had missed a dialysis treatment recently, which is not unusual for her. Past Medical History Cardiovascular: CHF, HTN, Hyperlipidemia, Other Pulmonary: Asthma, COPD CENTRAL NERVOUS SYSTEM: Periperal neuropathy GI: No pertinent hx Heme/Onc: No pertinent hx Hepatobiliary: No pertinent hx Psych: Anxiety Rheumatologic: Fibromyalgia Infectious disease: No pertinent hx Renal/: Chronic renal failure Endocrine: Diabetes, Hypothyroidism, Hyperparathyroidism Past Surgical History Past Surgical History: Other Family History Family History Family History: High Cholestrol, Hypertension, Other Social History ALCOHOL: none Drugs: Cocaine, Marijuana Lives: with Family Current Problem List Problem List Problems Medical Problems: (1) Acute respiratory failure with hypoxia Status: Acute (2) Left foot pain Status: Acute (3) Pneumonia Status: Acute Current Medications Current Medications Current Medications Ondansetron HCl (Zofran) 4 mg 1X ONCE IV Last administered on 01/22/19at 17:49; Start 01/22/19 at 17:45; Stop 01/22/19 at 17:46; Status DC Hydromorphone HCl (Dilaudid) 0.5 mg 1X STAT IV Last administered on 01/22/19at 17:50; Start 01/22/19 at 17:15; Stop 01/22/19 at 17:18; Status DC Prochlorperazine Edisylate (Compazine) 10 mg 1X ONCE IV Last administered on 01/22/19at 18:16; Start 01/22/19 at 18:15; Stop 01/22/19 at 18:16; Status DC Hydromorphone HCl (Dilaudid) 0.5 mg 1X STAT IVP Last administered on 01/22/19at 18:47; Start 01/22/19 at 18:33; Stop 01/22/19 at 18:36; Status DC Ceftriaxone Sodium (Rocephin) 1 gm 1X STAT IVP Last administered on 01/22/19at 19:28; Start 01/22/19 at 19:02; Stop 01/22/19 at 19:07; Status DC Azithromycin 250 ml @ 250 mls/hr 1X STAT IV Last administered on 01/22/19at 19:28; Start 01/22/19 at 19:02; Stop 01/22/19 at 20:01; Status DC Vancomycin HCl 1.5 gm/Sodium Chloride 500 ml @ 250 mls/hr 1X ONCE IV ; Start 01/22/19 at 19:15; Stop 01/22/19 at 21:14; Status UNV Vancomycin HCl 1.25 gm/Sodium Chloride 250 ml @ 166.667 mls/hr 1X ONCE IV Last administered on 01/22/19at 21:40; Start 01/22/19 at 19:15; Stop 01/22/19 at 20:44; Status DC Carvedilol (Coreg) 6.25 mg BIDWMEALS PO Last administered on 01/23/19at 08:16; Start 01/23/19 at 08:00 Lactobacillus Rhamnosus (Culturelle) 1 cap BID PO ; Start 01/22/19 at 21:00 Ondansetron HCl (Zofran Odt) 4 mg PRN Q6HRS PRN PO NAUSEA/VOMITING 1ST CHOICE; Start 01/22/19 at 21:00 Prochlorperazine Maleate (Compazine) 5 mg PRN TID PRN PO NAUSEA 2ND CHOICE; Start 01/22/19 at 21:00 Amylase/Lipase/ Protease (Zenpep 5,000) 1 cap TIDWMEALS PO Last administered on 01/23/19at 08:15; Start 01/23/19 at 08:00 Non-Formulary Medication (Ranitidine Hcl (Zantac)) 1 tab QHS PO ; Start 01/22/19 at 21:00; Status UNV Pantoprazole Sodium (Protonix) 40 mg DAILYAC PO ; Start 01/23/19 at 07:30 Acetaminophen/ Hydrocodone Bitart (Lortab 5/325) 1 tab PRN Q6HRS PRN PO MODERATE PAIN 4-6 Last administered on 01/23/19at 03:22; Start 01/22/19 at 21:15 Morphine Sulfate (Ms Contin) 30 mg BID PO Last administered on 01/23/19at 08:16; Start 01/23/19 at 09:00 Insulin Human Lispro (HumaLOG) 0-7 UNITS TIDWMEALS SQ ; Start 01/23/19 at 08:00 Dextrose (Dextrose 50%-Water Syringe) 12.5 gm PRN Q15MIN PRN IV SEE COMMENTS; Start 01/23/19 at 08:00 Vancomycin HCl (Vanco Per Pharmacy) 1 each PRN DAILY PRN MC SEE COMMENTS; Start 01/23/19 at 07:45 Piperacillin Sod/ Tazobactam Sod (Zosyn Per Pharmacy) 1 each PRN DAILY PRN MC SEE COMMENTS; Start 01/23/19 at 07:45 Piperacillin Sod/ Tazobactam Sod 2.25 gm/Sodium Chloride 50 ml @ 100 mls/hr Q8HRS IV ; Start 01/23/19 at 08:30 Amlodipine Besylate (Norvasc) 10 mg DAILY PO ; Start 01/23/19 at 09:00 Atorvastatin Calcium (Lipitor) 40 mg HS PO ; Start 01/23/19 at 21:00 Clonidine HCl (Catapres Tts-2) 1 patch WEEKLY TD Last administered on 01/23/19at 08:17; Start 01/23/19 at 09:00 Clopidogrel Bisulfate (Plavix) 75 mg DAILYWBKFT PO ; Start 01/23/19 at 08:00 Vitamin B Complex/ Vitamin C (Pinky-Shreya) 1 tab DAILY PO ; Start 01/23/19 at 09:00 Insulin Human Lispro (HumaLOG) TIDWMEALS SQ ; Start 01/23/19 at 08:00; Status UNV Latanoprost (Xalatan) 1 drop HS OU ; Start 01/23/19 at 21:00 Levothyroxine Sodium (Synthroid) 50 mcg DAILY06 PO ; Start 01/23/19 at 09:00 Lisinopril (Prinivil) 20 mg DAILY PO ; Start 01/23/19 at 09:00 Sertraline HCl (Zoloft) 50 mg DAILY PO ; Start 01/23/19 at 09:00 Sodium Chloride 1,000 ml @ 1,000 mls/hr Q1H PRN IV hypotension; Start 01/23/19 at 08:55; Stop 01/23/19 at 14:54 Acetaminophen (Tylenol) 500 mg 1X PRN PRN PO MILD PAIN / TEMP; Start 01/23/19 at 09:00; Stop 01/24/19 at 08:59 Diphenhydramine HCl (Benadryl) 25 mg 1X PRN PRN IV ITCHING; Start 01/23/19 at 09:00; Stop 01/24/19 at 08:59 Diphenhydramine HCl (Benadryl) 25 mg 1X PRN PRN IV ITCHING; Start 01/23/19 at 09:00; Stop 01/24/19 at 08:59 Sodium Chloride 1,000 ml @ 400 mls/hr Q2H30M PRN IV PATENCY; Start 01/23/19 at 08:55; Stop 01/23/19 at 20:54 Info (PHARMACY MONITORING -- do not chart) 1 each PRN DAILY PRN MC SEE COMMENTS; Start 01/23/19 at 09:00 Active Scripts Active Humalog (Insulin Lispro) 100 Unit/1 Ml Insuln.pen 0 Units SQ TIDWMEALS 28 Days Culturelle (Lactobacillus Rhamnosus Gg) 1 Each Cap.sprink 1 Cap PO BID 30 Days Ondansetron Odt (Ondansetron) 4 Mg Tab.rapdis 4 Mg PO PRN Q6HRS PRN 28 Days Clopidogrel (Clopidogrel Bisulfate) 75 Mg Tablet 75 Mg PO DAILYWBKFT 30 Days Vancomycin 1 Gram/200 ml Bag (Vancomycin/Water For Inj (Peg)) 1 Gm/200 Ml Piggyback 1 Gm IV 3X/WEEK 28 Days [Cefepime Hcl] 1 GM Vial 1 Gm IVP Q24H 28 Days Pinky-Shreya Tablet (Folic Acid/Vitamin B Comp W-C) 0.8 Mg Tablet 1 Tab PO DAILY Tylenol (Acetaminophen) 325 Mg Capsule 650 Mg PO Q6-8HRS PRN Zantac (Ranitidine Hcl) 300 Mg Tablet 1 Tab PO QHS Compazine (Prochlorperazine Maleate) 5 Mg Tablet 5 Mg PO PRN TID PRN 10 Days [Pantoprazole] 40 MG Tablet. 40 Mg PO DAILYAC 30 Days Reported Zoloft (Sertraline Hcl) 50 Mg Tablet 50 Mg PO DAILY Lisinopril 20 Mg Tablet 20 Mg PO DAILY Coreg (Carvedilol) 6.25 Mg Tablet 6.25 Mg PO [address]IDWMELORENA Frey Dr 6,000 Units Capsule (Lipase/Protease/Amylase) 1 Each Capsule. 1 Tab PO TID Proair Hfa (Albuterol Sulfate) 8.5 Gm Hfa.aer.ad 2 Puff INH BID PRN Levothyroxine Sodium 50 Mcg Tablet 1 Tab PO DAILY Clonidine Tts-2 (Clonidine) 1 Each Patch.tdwk 1 Patch TD WEEKLY Amlodipine Besylate 5 Mg Tablet 10 Mg PO DAILY Atorvastatin Calcium 40 Mg Tablet 40 Mg PO HS Latanoprost 2.5 Ml Drops 1 Drop EACHEYE HS Allergies Allergies: Coded Allergies: No Known Drug Allergies (Unverified , 12/20/18) ROS Review of System Per HPI , rest negative Physical Exam Physical Exam GENERAL NAD lungs CTA CV RRR EXTREMITIES: Right [id number] amputation stump Left foot wound vac in place. SKIN: No rash Vital Signs Vital Signs Date Time Temp Pulse Resp B/P (MAP) Pulse Ox O2 Delivery O2 Flow Rate FiO2 01/23/19 08:16 20 98 Nasal Cannula 4.5 01/23/19 08:16 76 175/58 01/23/19 02:00 97.7 97.7 Assessment & Plan ESRD - On HD MWF Chronic non compliance seen on HD, Tolerating well, 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, Eddie Daniels ACcess- Permacath, Failed AVF AVG placed in September 2018 at [facility] - Left upper arm brachial artery to brachial vein arterial to venous graft placement using PTFE graft. Use per vascular Chronic severe Non compliance with Dialysis as OP as well during hospitalizations- leaves AMA Nonhealing wound, left foot- c/o pain Left fourth toe open amputation and left fifth toe amp site I and D, 12/19. 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 Labs Labs Laboratory Tests Test 01/22/19 17:38 01/23/19 05:59 White Blood Count 10.9 x10^3/uL (4.0-11.0) Red Blood Count 3.64 x10^6/uL (3.50-5.40) Hemoglobin 11.3 g/dL (12.0-15.5) Hematocrit 33.5 % (36.0-47.0) Mean Corpuscular Volume 92 fL (79-100) Mean Corpuscular Hemoglobin 31 pg (25-35) Mean Corpuscular Hemoglobin Concent 34 g/dL (31-37) Red Cell Distribution Width 22.4 % (11.5-14.5) Platelet Count 376 x10^3/uL (140-400) Neutrophils (%) (Auto) 83 % (31-73) Lymphocytes (%) (Auto) 11 % (24-48) Monocytes (%) (Auto) 5 % (0-9) Eosinophils (%) (Auto) 0 % (0-3) Basophils (%) (Auto) 1 % (0-3) Neutrophils # (Auto) 9.1 x10^3/uL (1.8-7.7) Lymphocytes # (Auto) 1.2 x10^3/uL (1.0-4.8) Monocytes # (Auto) 0.5 x10^3/uL (0.0-1.1) Eosinophils # (Auto) 0.0 x10^3/uL (0.0-0.7) Basophils # (Auto) 0.1 x10^3/uL (0.0-0.2) Toxic Granulation Slight Platelet Estimate Adequate (ADEQUATE) Polychromasia Slight Anisocytosis Mod Sodium Level 140 mmol/L (136-145) Potassium Level 3.9 mmol/L (3.5-5.1) Chloride Level 100 mmol/L (98-107) Carbon Dioxide Level 29 mmol/L (21-32) Anion Gap 11 (6-14) Blood Urea Nitrogen 25 mg/dL (7-20) Creatinine 4.6 mg/dL (0.6-1.0) Estimated GFR (Cockcroft-Gault) 11.9 BUN/Creatinine Ratio 5 (6-20) Glucose Level 133 mg/dL (70-99) Lactic Acid Level 0.7 mmol/L (0.4-2.0) Calcium Level 9.2 mg/dL (8.5-10.1) Total Bilirubin 0.5 mg/dL (0.2-1.0) Aspartate Amino Transf (AST/SGOT) 26 U/L (15-37) Alanine Aminotransferase (ALT/SGPT) 37 U/L (14-59) Alkaline Phosphatase 97 U/L (46-116) Troponin I Quantitative 0.051 ng/mL (0.000-0.055) Total Protein 7.3 g/dL (6.4-8.2) Albumin 3.0 g/dL (3.4-5.0) Albumin/Globulin Ratio 0.7 (1.0-1.7) Glucose (Fingerstick) 146 mg/dL (70-99) Laboratory Tests Test 01/22/19 17:38 01/23/19 05:59 White Blood Count 10.9 x10^3/uL (4.0-11.0) Red Blood Count 3.64 x10^6/uL (3.50-5.40) Hemoglobin 11.3 g/dL (12.0-15.5) Hematocrit 33.5 % (36.0-47.0) Mean Corpuscular Volume 92 fL (79-100) Mean Corpuscular Hemoglobin 31 pg (25-35) Mean Corpuscular Hemoglobin Concent 34 g/dL (31-37) Red Cell Distribution Width 22.4 % (11.5-14.5) Platelet Count 376 x10^3/uL (140-400) Neutrophils (%) (Auto) 83 % (31-73) Lymphocytes (%) (Auto) 11 % (24-48) Monocytes (%) (Auto) 5 % (0-9) Eosinophils (%) (Auto) 0 % (0-3) Basophils (%) (Auto) 1 % (0-3) Neutrophils # (Auto) 9.1 x10^3/uL (1.8-7.7) Lymphocytes # (Auto) 1.2 x10^3/uL (1.0-4.8) Monocytes # (Auto) 0.5 x10^3/uL (0.0-1.1) Eosinophils # (Auto) 0.0 x10^3/uL (0.0-0.7) Basophils # (Auto) 0.1 x10^3/uL (0.0-0.2) Toxic Granulation Slight Platelet Estimate Adequate (ADEQUATE) Polychromasia Slight Anisocytosis Mod Sodium Level 140 mmol/L (136-145) Potassium Level 3.9 mmol/L (3.5-5.1) Chloride Level 100 mmol/L (98-107) Carbon Dioxide Level 29 mmol/L (21-32) Anion Gap 11 (6-14) Blood Urea Nitrogen 25 mg/dL (7-20) Creatinine 4.6 mg/dL (0.6-1.0) Estimated GFR (Cockcroft-Gault) 11.9 BUN/Creatinine Ratio 5 (6-20) Glucose Level 133 mg/dL (70-99) Lactic Acid Level 0.7 mmol/L (0.4-2.0) Calcium Level 9.2 mg/dL (8.5-10.1) Total Bilirubin 0.5 mg/dL (0.2-1.0) Aspartate Amino Transf (AST/SGOT) 26 U/L (15-37) Alanine Aminotransferase (ALT/SGPT) 37 U/L (14-59) Alkaline Phosphatase 97 U/L (46-116) Troponin I Quantitative 0.051 ng/mL (0.000-0.055) Total Protein 7.3 g/dL (6.4-8.2) Albumin 3.0 g/dL (3.4-5.0) Albumin/Globulin Ratio 0.7 (1.0-1.7) Glucose (Fingerstick) 146 mg/dL (70-99) Review All relevant outside records, renal labs, imaging studies, telemetry/EKG's were reviewed. Images Images CxR-- Patchy airspace disease probably within the right mid and lower lung, favored represent pneumonia. Asymmetric edema is also possible. Follow-up imaging posttreatment to ensure resolution is recommended. DOMINIQUE TSE MD Jan 23, 2019 09:23
--- NOTE | 2019-01-23 10:11 | NUR ---
SS following for discharge planning. SS reviewed pt chart and met with pt in room. Pt reported that she is from home and will return to home at discharge. Pt was previously on services with [facility], ; fax [phone]. Pt also has dialysis set up at [facility], ; fax [phone], Monday, Monday, and Monday. SS contacted [facility] and was notified that her compliance rate was only 50% and she missed half of her dialysis appointments in the past thirty days. SS will continue to follow for discharge planning.
--- NOTE | 2019-01-23 10:27 | NUR ---
Pharmacy Vancomycin Dosing Note S:Consulted to monitor and dose vancomycin started 01/22/19. O:OTTONIEL SMITH is a 58 year old F with Pneumonia . Height: 5 feet, 2 inches Weight: 49.817881 kg [place] Body Weight: 50.10 Adjusted Body Weight: 49.98 Dosing Weight: Actual Other Antibiotics: ZOSYN LABS: Last BUN: Last Creatinine: 4.6 Creatinine Clearance: mL/min Last WBC: 10.9 Last Procalcitonin: Tmax (past 24 hours): Microbiology: I/O: Drug Levels: Last level: on at Last dose given 01/22/19 at 2140 Vancomycin Dosing: Loading Dose: 1250 mg x1 Dosing Weight: Actual Target Trough: 15-20 A: Based on: WEIGHT AND RENAL FUNCTION (DIALYSIS MWF) P: 1. Vancomycin IV 1.25 GM GIVEN 01/22/19 AT 21:40 2. Follow up Random level on 01/25/19 at 0600 3. Pharmacy will continue to monitor, follow and adjust therapy as needed. ALEXANDRO DELACRUZ [facility], 01/23/19 [id number]
--- NOTE | 2019-01-23 13:15 | PDOC2 ---
CONSULT Date of Consult Date of Consult DATE: 01/23/19 TIME: 13:12 Reason for Consult Reason for Consult: Left fourth and fifth toe amputation site with poor healing Referring Physician Referring Physician: Dr. Tomas Identification/Chief Complaint Chief Complaint Left foot pain Source Source: Chart review, Patient Past Medical History Past Medical History This is a 58 year old female with end-stage renal disease, peripheral arterial disease with peripheral neuropathy, congestive heart failure, diabetes, hypertension and hyperlipidemia who presented to the emergency room with worsening left foot pain. She was noted upon admission to have hypoxia this was treated and has resolved. She has had a recent right below-knee amputation due to necrotic non-healing wounds, with a well healed incision. In addition, she had a left fifth toe and subsequent left fourth toe amputation, currently this is open and being treated with wound VAC therapy. She has undergone an angiogram with angioplasty of her left leg, but continues to have very poor flow into the foot and digital vessels themselves. She is non-compliant in keeping her Wound Care visits and she arrived without the wound vac in place. Cardiovascular: CHF, HTN, Hyperlipidemia, Other Pulmonary: Asthma, COPD CENTRAL NERVOUS SYSTEM: Periperal neuropathy GI: No pertinent hx Heme/Onc: No pertinent hx Hepatobiliary: No pertinent hx Psych: Anxiety Rheumatologic: Fibromyalgia Infectious disease: No pertinent hx Renal/: Chronic renal failure Endocrine: Diabetes, Hypothyroidism, Hyperparathyroidism Past Surgical History Past Surgical History: Other (Right below knee amputation, left 4th and 5th toe amputation. Left upper arm arteriovenous graft.) Family History Family History: High Cholestrol, Hypertension, Other Social History ALCOHOL: none Drugs: Cocaine, Marijuana Lives: with Family Current Problem List Problem List Problems Medical Problems: (1) Acute respiratory failure with hypoxia Status: Acute (2) Left foot pain Status: Acute (3) Pneumonia Status: Acute Current Medications Current Medications Current Medications Ondansetron HCl (Zofran) 4 mg 1X ONCE IV Last administered on 01/22/19at 17:49; Start 01/22/19 at 17:45; Stop 01/22/19 at 17:46; Status DC Hydromorphone HCl (Dilaudid) 0.5 mg 1X STAT IV Last administered on 01/22/19at 17:50; Start 01/22/19 at 17:15; Stop 01/22/19 at 17:18; Status DC Prochlorperazine Edisylate (Compazine) 10 mg 1X ONCE IV Last administered on 01/22/19at 18:16; Start 01/22/19 at 18:15; Stop 01/22/19 at 18:16; Status DC Hydromorphone HCl (Dilaudid) 0.5 mg 1X STAT IVP Last administered on 01/22/19at 18:47; Start 01/22/19 at 18:33; Stop 01/22/19 at 18:36; Status DC Ceftriaxone Sodium (Rocephin) 1 gm 1X STAT IVP Last administered on 01/22/19at 19:28; Start 01/22/19 at 19:02; Stop 01/22/19 at 19:07; Status DC Azithromycin 250 ml @ 250 mls/hr 1X STAT IV Last administered on 01/22/19at 19:28; Start 01/22/19 at 19:02; Stop 01/22/19 at 20:01; Status DC Vancomycin HCl 1.5 gm/Sodium Chloride 500 ml @ 250 mls/hr 1X ONCE IV ; Start 01/22/19 at 19:15; Stop 01/22/19 at 21:14; Status UNV Vancomycin HCl 1.25 gm/Sodium Chloride 250 ml @ 166.667 mls/hr 1X ONCE IV Last administered on 01/22/19at 21:40; Start 01/22/19 at 19:15; Stop 01/22/19 at 20:44; Status DC Carvedilol (Coreg) 6.25 mg BIDWMEALS PO Last administered on 01/23/19at 08:16; Start 01/23/19 at 08:00 Lactobacillus Rhamnosus (Culturelle) 1 cap BID PO ; Start 01/22/19 at 21:00 Ondansetron HCl (Zofran Odt) 4 mg PRN Q6HRS PRN PO NAUSEA/VOMITING 1ST CHOICE; Start 01/22/19 at 21:00 Prochlorperazine Maleate (Compazine) 5 mg PRN TID PRN PO NAUSEA 2ND CHOICE; Start 01/22/19 at 21:00 Amylase/Lipase/ Protease (Zenpep 5,000) 1 cap TIDWMEALS PO Last administered on 01/23/19at 08:15; Start 01/23/19 at 08:00 Non-Formulary Medication (Ranitidine Hcl (Zantac)) 1 tab QHS PO ; Start 01/22/19 at 21:00; Status UNV Pantoprazole Sodium (Protonix) 40 mg DAILYAC PO ; Start 01/23/19 at 07:30 Acetaminophen/ Hydrocodone Bitart (Lortab 5/325) 1 tab PRN Q6HRS PRN PO MODERATE PAIN 4-6 Last administered on 01/23/19at 10:55; Start 01/22/19 at 21:15 Morphine Sulfate (Ms Contin) 30 mg BID PO Last administered on 01/23/19at 08:16; Start 01/23/19 at 09:00 Insulin Human Lispro (HumaLOG) 0-7 UNITS TIDWMEALS SQ ; Start 01/23/19 at 08:00 Dextrose (Dextrose 50%-Water Syringe) 12.5 gm PRN Q15MIN PRN IV SEE COMMENTS; Start 01/23/19 at 08:00 Vancomycin HCl (Vanco Per Pharmacy) 1 each PRN DAILY PRN MC SEE COMMENTS Last a dministered on 01/23/19at 10:24; Start 01/23/19 at 07:45 Piperacillin Sod/ Tazobactam Sod (Zosyn Per Pharmacy) 1 each PRN DAILY PRN MC SEE COMMENTS; Start 01/23/19 at 07:45 Piperacillin Sod/ Tazobactam Sod 2.25 gm/Sodium Chloride 50 ml @ 100 mls/hr Q8H RS IV ; Start 01/23/19 at 08:30 Amlodipine Besylate (Norvasc) 10 mg DAILY PO ; Start 01/23/19 at 09:00 Atorvastatin Calcium (Lipitor) 40 mg HS PO ; Start 01/23/19 at 21:00 Clonidine HCl (Catapres Tts-2) 1 patch WEEKLY TD Last administered on 01/23/19at 08:17; Start 01/23/19 at 09:00 Clopidogrel Bisulfate (Plavix) 75 mg DAILYWBKFT PO ; Start 01/23/19 at 08:00 Vitamin B Complex/ Vitamin C (Pinky-Shreya) 1 tab DAILY PO ; Start 01/23/19 at 09:00 Insulin Human Lispro (HumaLOG) TIDWMEALS SQ ; Start 01/23/19 at 08:00; Status UNV Latanoprost (Xalatan) 1 drop HS OU ; Start 01/23/19 at 21:00 Levothyroxine Sodium (Synthroid) 50 mcg DAILY06 PO ; Start 01/23/19 at 09:00 Lisinopril (Prinivil) 20 mg DAILY PO ; Start 01/23/19 at 09:00 Sertraline HCl (Zoloft) 50 mg DAILY PO ; Start 01/23/19 at 09:00 Sodium Chloride 1,000 ml @ 1,000 mls/hr Q1H PRN IV hypotension; Start 01/23/19 at 08:55; Stop 01/23/19 at 14:54 Acetaminophen (Tylenol) 500 mg 1X PRN PRN PO MILD PAIN / TEMP; Start 01/23/19 at 09:00; Stop 01/24/19 at 08:59 Diphenhydramine HCl (Benadryl) 25 mg 1X PRN PRN IV ITCHING; Start 01/23/19 at 09:00; Stop 01/24/19 at 08:59 Diphenhydramine HCl (Benadryl) 25 mg 1X PRN PRN IV ITCHING; Start 01/23/19 at 09:00; Stop 01/24/19 at 08:59 Sodium Chloride 1,000 ml @ 400 mls/hr Q2H30M PRN IV PATENCY; Start 01/23/19 at 08:55; Stop 01/23/19 at 20:54 Info (PHARMACY MONITORING -- do not chart) 1 each PRN DAILY PRN MC SEE COMMENTS; Start 01/23/19 at 09:00 Vancomycin HCl (Vancomycin Trough Level) 1 each 1X ONCE MC ; Start 01/25/19 at 06:00; Stop 01/25/19 at 06:01 Active Scripts Active Humalog (Insulin Lispro) 100 Unit/1 Ml Insuln.pen 0 Units SQ TIDWMEALS 28 Days Culturelle (Lactobacillus Rhamnosus Gg) 1 Each Cap.sprink 1 Cap PO BID 30 Days Ondansetron Odt (Ondansetron) 4 Mg Tab.rapdis 4 Mg PO PRN Q6HRS PRN 28 Days Clopidogrel (Clopidogrel Bisulfate) 75 Mg Tablet 75 Mg PO DAILYWBKFT 30 Days Vancomycin 1 Gram/200 ml Bag (Vancomycin/Water For Inj (Peg)) 1 Gm/200 Ml Piggyback 1 Gm IV 3X/WEEK 28 Days [Cefepime Hcl] 1 GM Vial 1 Gm IVP Q24H 28 Days Pinky-Shreya Tablet (Folic Acid/Vitamin B Comp W-C) 0.8 Mg Tablet 1 Tab PO DAILY Tylenol (Acetaminophen) 325 Mg Capsule 650 Mg PO Q6-8HRS PRN Zantac (Ranitidine Hcl) 300 Mg Tablet 1 Tab PO QHS Compazine (Prochlorperazine Maleate) 5 Mg Tablet 5 Mg PO PRN TID PRN 10 Days [Pantoprazole] 40 MG Tablet.dr 40 Mg PO DAILYAC 30 Days Reported Zoloft (Sertraline Hcl) 50 Mg Tablet 50 Mg PO DAILY Lisinopril 20 Mg Tablet 20 Mg PO DAILY Coreg (Carvedilol) 6.25 Mg Tablet 6.25 Mg PO BIDWMEALS Creon 6,000 Units Capsule (Lipase/Protease/Amylase) 1 Each Capsule.dr 1 Tab PO TID Proair Hfa (Albuterol Sulfate) 8.5 Gm Hfa.aer.ad 2 Puff INH BID PRN Levothyroxine Sodium 50 Mcg Tablet 1 Tab PO DAILY Clonidine Tts-2 (Clonidine) 1 Each Patch.tdwk 1 Patch TD WEEKLY Amlodipine Besylate 5 Mg Tablet 10 Mg PO DAILY Atorvastatin Calcium 40 Mg Tablet 40 Mg PO HS Latanoprost 2.5 Ml Drops 1 Drop EACHEYE HS Allergies Allergies: Coded Allergies: No Known Drug Allergies (Unverified , 12/20/18) ROS Review of System Constitutional: No fever, chills, fatigue or weight loss. Respiratory: No cough or sputum production. Cardiovascular: Chronic intermittent chest pain,none today. Gastrointestinal: No abdominal pain, nausea, constipation or diarrhea. Integumentary/breast: As per HPI Musculoskeletal: As per HPI Neurological: No gross deficits All other reviews systems negative except history of present illness. Physical Exam Physical Exam Gen.: Alert and oriented 3. Cardiac: Heart rate regular. Lungs: Nonlabored respirations. Abdomen: Soft, nontender, nondistended, no palpable masses. Extremities:Doppler signal left PT and DP. Skin: Well-healed right knee amputation incision. Left fourth and fifth toe open amputation wound bed with small amount of granulation tissue along with some fatty tissue. Periwound is intact, skin is scaly and dry. Neurological: Motor and sensation intact Vitals VITALS Vital Signs Date Time Temp Pulse Resp B/P (MAP) Pulse Ox O2 Delivery O2 Flow Rate FiO2 01/23/19 10:55 20 98 Nasal Cannula 4.5 01/23/19 08:16 76 175/58 01/23/19 02:00 97.7 97.7 Labs Labs Laboratory Tests Test 01/22/19 17:38 01/23/19 05:59 White Blood Count 10.9 x10^3/uL (4.0-11.0) Red Blood Count 3.64 x10^6/uL (3.50-5.40) Hemoglobin 11.3 g/dL (12.0-15.5) Hematocrit 33.5 % (36.0-47.0) Mean Corpuscular Volume 92 fL (79-100) Mean Corpuscular Hemoglobin 31 pg (25-35) Mean Corpuscular Hemoglobin Concent 34 g/dL (31-37) Red Cell Distribution Width 22.4 % (11.5-14.5) Platelet Count 376 x10^3/uL (140-400) Neutrophils (%) (Auto) 83 % (31-73) Lymphocytes (%) (Auto) 11 % (24-48) Monocytes (%) (Auto) 5 % (0-9) Eosinophils (%) (Auto) 0 % (0-3) Basophils (%) (Auto) 1 % (0-3) Neutrophils # (Auto) 9.1 x10^3/uL (1.8-7.7) Lymphocytes # (Auto) 1.2 x10^3/uL (1.0-4.8) Monocytes # (Auto) 0.5 x10^3/uL (0.0-1.1) Eosinophils # (Auto) 0.0 x10^3/uL (0.0-0.7) Basophils # (Auto) 0.1 x10^3/uL (0.0-0.2) Toxic Granulation Slight Platelet Estimate Adequate (ADEQUATE) Polychromasia Slight Anisocytosis Mod Sodium Level 140 mmol/L (136-145) Potassium Level 3.9 mmol/L (3.5-5.1) Chloride Level 100 mmol/L (98-107) Carbon Dioxide Level 29 mmol/L (21-32) Anion Gap 11 (6-14) Blood Urea Nitrogen 25 mg/dL (7-20) Creatinine 4.6 mg/dL (0.6-1.0) Estimated GFR (Cockcroft-Gault) 11.9 BUN/Creatinine Ratio 5 (6-20) Glucose Level 133 mg/dL (70-99) Lactic Acid Level 0.7 mmol/L (0.4-2.0) Calcium Level 9.2 mg/dL (8.5-10.1) Total Bilirubin 0.5 mg/dL (0.2-1.0) Aspartate Amino Transf (AST/SGOT) 26 U/L (15-37) Alanine Aminotransferase (ALT/SGPT) 37 U/L (14-59) Alkaline Phosphatase 97 U/L (46-116) Troponin I Quantitative 0.051 ng/mL (0.000-0.055) Total Protein 7.3 g/dL (6.4-8.2) Albumin 3.0 g/dL (3.4-5.0) Albumin/Globulin Ratio 0.7 (1.0-1.7) Glucose (Fingerstick) 146 mg/dL (70-99) Laboratory Tests Test 01/22/19 17:38 01/23/19 05:59 White Blood Count 10.9 x10^3/uL (4.0-11.0) Red Blood Count 3.64 x10^6/uL (3.50-5.40) Hemoglobin 11.3 g/dL (12.0-15.5) Hematocrit 33.5 % (36.0-47.0) Mean Corpuscular Volume 92 fL (79-100) Mean Corpuscular Hemoglobin 31 pg (25-35) Mean Corpuscular Hemoglobin Concent 34 g/dL (31-37) Red Cell Distribution Width 22.4 % (11.5-14.5) Platelet Count 376 x10^3/uL (140-400) Neutrophils (%) (Auto) 83 % (31-73) Lymphocytes (%) (Auto) 11 % (24-48) Monocytes (%) (Auto) 5 % (0-9) Eosinophils (%) (Auto) 0 % (0-3) Basophils (%) (Auto) 1 % (0-3) Neutrophils # (Auto) 9.1 x10^3/uL (1.8-7.7) Lymphocytes # (Auto) 1.2 x10^3/uL (1.0-4.8) Monocytes # (Auto) 0.5 x10^3/uL (0.0-1.1) Eosinophils # (Auto) 0.0 x10^3/uL (0.0-0.7) Basophils # (Auto) 0.1 x10^3/uL (0.0-0.2) Toxic Granulation Slight Platelet Estimate Adequate (ADEQUATE) Polychromasia Slight Anisocytosis Mod Sodium Level 140 mmol/L (136-145) Potassium Level 3.9 mmol/L (3.5-5.1) Chloride Level 100 mmol/L (98-107) Carbon Dioxide Level 29 mmol/L (21-32) Anion Gap 11 (6-14) Blood Urea Nitrogen 25 mg/dL (7-20) Creatinine 4.6 mg/dL (0.6-1.0) Estimated GFR (Cockcroft-Gault) 11.9 BUN/Creatinine Ratio 5 (6-20) Glucose Level 133 mg/dL (70-99) Lactic Acid Level 0.7 mmol/L (0.4-2.0) Calcium Level 9.2 mg/dL (8.5-10.1) Total Bilirubin 0.5 mg/dL (0.2-1.0) Aspartate Amino Transf (AST/SGOT) 26 U/L (15-37) Alanine Aminotransferase (ALT/SGPT) 37 U/L (14-59) Alkaline Phosphatase 97 U/L (46-116) Troponin I Quantitative 0.051 ng/mL (0.000-0.055) Total Protein 7.3 g/dL (6.4-8.2) Albumin 3.0 g/dL (3.4-5.0) Albumin/Globulin Ratio 0.7 (1.0-1.7) Glucose (Fingerstick) 146 mg/dL (70-99) Assessment/Plan Assessment/Plan 58-year-old female with peripheral arterial disease, recent right below-knee amputation that has healed nicely, and left fourth and fifth toe open amputations. Would recommend continued wound VAC therapy and give the wound more time to heal. Discussed with the patient she needs to be compliant with her therapy. We will consult wound care physician for possible bedside debridement. Recommend continued antibiotics per infectious disease. Recommend patient follow up with Dr. Villeda as scheduled in January. If patient continues to have intolerable pain and non-healing of her left foot amputation site she will need a left below-knee amputation. She is not a surgical candidate for revasculariz ation. Thank you for the opportunity to participate in the care of this patient. NALLELY FERNANDES APRN Jan 23, 2019 13:15
[2019-01-23 13:21] VITALS: BP 175/58
[2019-01-23] MEDS: LACTOBACILLUS RHAMNOSUS GG 1 CAPSULE. PO SCH (13:21)
[2019-01-23] MEDS: PIPERACILLIN/TAZOBACTAM 2.25 GM in IV NORMAL SALINE 50ML 50 ML IV SCH ×2 (13:23→14:30)
--- NOTE | 2019-01-23 14:04 | NUR ---
Wound Care: Wound care attempted to see patient today regarding wound care for left foot. Patient is well known to us in the wound clinic as well as multiple hospitalizations. Patient did not make her scheduled wound clinic appointment this Monday. Spoke with RN whom stated patient's pain medication was not due until 1600 today. Patient had returned from dialysis, entered patient's room and introduced ourselves. Informed patient that we were there to evaluate and treat wound, patient then stated she needed pain medication through her IV, told patient her RN stated her pain medication was not due until 1599 today. Patient then became angry and started yelling "Your feet and toes are not cut off, you don't know what it's like." I agreed with patient and then again asked if we could assess her wound, patient then stated "Are you going to give me pain medication through my IV?" I replied "no I will not" she then yelled at me and my coworker "Manasa y'all then." We will not see patient regarding wound care, we exited the room. Addendum: 01/23/19 at 1421 by CLARKE GOLDSTEIN RN This nurse was present for consultation, and agrees with account of events. Pt was hostile and unwilling to discuss treatment options without the promise of IV pain medication, which we were unable to oblige.
--- NOTE | 2019-01-23 14:12 | PDOC ---
Progress Note-Wound Care SUBJECTIVE Wound Care was consulted to provide care for Ms. Salazar's wound. When our nursing staff asked her for permission to evaluate her wound, Ms. Salazar asked: "Are you going to give me pain medicine in my IV?" Our nursing staff said no, they wanted to look at her wound. Ms. Salazar replied: "Then f you all then. " Our nurses said "OK" and exited the room. In light of this verbal assault, I have directed our wound care nursing staff to avoid any further interaction with the patient, and Wound Care will sign off. OBJECTIVE Vital Signs Vital Signs Date Time Temp Pulse Resp B/P (MAP) Pulse Ox O2 Delivery O2 Flow Rate FiO2 01/22/19 16:55 98.1 93 20 185/144 (158) 84 Room Air 98.1 01/22/19 18:00 5.0 Vital Signs Date Time Temp Pulse Resp B/P (MAP) Pulse Ox O2 Delivery O2 Flow Rate FiO2 01/23/19 13:21 76 175/58 01/23/19 10:55 20 98 Nasal Cannula 4.5 01/23/19 02:00 97.7 97.7 ALFREDO GREY MD Jan 23, 2019 14:12
--- NOTE | 2019-01-23 14:38 | NUR ---
PATIENT IS REFUSING TREATMENT FROM THE [facility] TEAM. USING [employer] LANGUAGES TO STAFF. PATIENT VOICED WISHING TO GO HOME IF DRS READY TO DISCHARGE PATIENT. CALLED DR. JUAREZ AND RECEIVED ORDERS.
[2019-01-23] MEDS ORDERED: VANC500F2 IV (15:19)
--- NOTE | 2019-01-23 15:28 | NUR ---
SS following up with discharge planning. Pt refusing wound care and refusing further treatment at this time. Pt became verbally abrasive with wound care staff and nursing staff. Pt stating that she only wants IV pain medications. Dr. Tomas notified. Discharge orders received for home healthcare. SS phoned and faxed discharge orders to [facility] and [facility]. Pt requesting ambulance transport to home. Pt will discharge to home via [facility] ambulance, , at 1700.
[2019-01-23] MEDS ORDERED: CEFE1VIA2 IJ (15:36)
[2019-01-23] MEDS ORDERED: CEFE2VIA2 IJ (15:36)
--- NOTE | 2019-01-23 17:05 | NUR ---
Patient discharged to home. Discharge instructions given and patient verbalized understanding. PIV and heart monitor removed. Patient escorted per EMT.
[2019-01-23] MEDS ORDERED: LATANOPROST 0.005% OPHTH SOLUTION 2.5ML BOTTLE. OU SCH (21:00)
[2019-01-23] MEDS ORDERED: ATORVASTATIN CALCIUM 40 MG TABLET. PO SCH (21:00)
--- NOTE | 2019-01-25 09:09 | DS ---
DATE OF DISCHARGE: 01/23/2019 CHIEF COMPLAINT: Left foot pain. HISTORY OF PRESENT ILLNESS: The patient is a 58-year-old female with a complex past medical history including peripheral artery disease, end-stage renal disease and noncompliance with medical care. She presented to the Emergency Room with the above complaint. She had undergone an amputation of her left fourth and fifth toes during an admission here at [facility] earlier this month. She had apparently been seen at the W[facility] Care Center and may even have had a wound VAC at home, although details of this are unclear. She came to the Emergency Room via ambulance stating that she was having increasing pain in her left foot. Evaluation in the Emergency Room showed the patient to be hypoxic on room air, but this improved quickly with oxygen per nasal cannula. She was started on IV antibiotics and admitted for further care. HOSPITAL COURSE: The patient was seen in consultation by Infectious Disease, Vascular Surgery, Nephrology and the Wound Care Center. Vascular Surgery felt that there was no acute infection in her left foot wound. They advised the patient to be compliant with a wound VAC or other treatments per the Wound Care Center. Infectious Disease felt that she could be continued on the IV antibiotics that she has been receiving at her dialysis treatments. The patient was noncooperative with her care. She demanded IV pain medication, but this was not given due to her history of narcotic abuse. Oral pain medication was offered and the patient did not seem to have acute increase in her pain that would warrant IV medication. The patient refused an exam or treatment from the Wound Care Center. At that point, there was no indication for continued inpatient care as her chronic medical conditions were all stable. She was discharged to home with home health. IV antibiotics can be continued at dialysis treatments. FINAL DIAGNOSES: 1. Nonhealing wound, left foot, status post amputation fourth and fifth toes. 2. Severe peripheral artery disease. 3. End-stage renal disease. 4. Hypertension. 5. Diabetes mellitus type 2. 6. Congestive heart failure with systolic and diastolic dysfunction. 7. Hypothyroidism. 8. History of narcotic abuse. DISCHARGE MEDICATIONS: Remain the same as at admission. The patient is advised to follow up for her usual dialysis treatments and follow up with Vascular Surgery as already scheduled. GRACIELA JUAREZ MD DR: HENRY/franny JOB#: [id number] / [id number] MOJGAN
== END 2019-01-23 17:10 | disposition home health service (06) | DRG 189 ==
LOC: ER 16:55 → 2 NORTH 19:21
PROVIDERS: ADMIT Family Medicine; ATTEND Family Medicine
PROC: 5A1D70Z Performance of Urinary Filtration, Intermittent, Less than 6 Hours Per Day (ICD-10-PCS; principal; 2019-01-23)
DX: J96.01 Acute respiratory failure with hypoxia (principal); N18.6 End stage renal disease; J18.1 Lobar pneumonia, unspecified organism; I13.2 Hypertensive heart and chronic kidney disease with heart failure and with stage 5 chronic kidney disease, or end stage renal disease; I50.42 Chronic combined systolic (congestive) and diastolic (congestive) heart failure; J44.0 Chronic obstructive pulmonary disease with (acute) lower respiratory infection; K86.1 Other chronic pancreatitis; E03.9 Hypothyroidism, unspecified; E11.22 Type 2 diabetes mellitus with diabetic chronic kidney disease; E11.42 Type 2 diabetes mellitus with diabetic polyneuropathy; E11.51 Type 2 diabetes mellitus with diabetic peripheral angiopathy without gangrene; F17.210 Nicotine dependence, cigarettes, uncomplicated; E78.5 Hyperlipidemia, unspecified; M79.7 Fibromyalgia; Z82.49 Family history of ischemic heart disease and other diseases of the circulatory system; Z89.511 Acquired absence of right leg below knee; Z90.710 Acquired absence of both cervix and uterus; Z91.15 Patient's noncompliance with renal dialysis; Z91.19 Patient's noncompliance with other medical treatment and regimen; Z99.2 Dependence on renal dialysis; E21.3 Hyperparathyroidism, unspecified; F41.9 Anxiety disorder, unspecified; G89.29 Other chronic pain
CPT/HCPCS: 36415; 71045; 73630; 80053; 82962; 83605; 84484; 85025; 87040; 93005; 96365; 96375; J0456; J0696; J0780; J1170; J1815; J2405; J2543; J3370; J7050; 99285-25; G0378; J7030

== ENCOUNTER 2019-01-27 23:07 | Inpatient (IN) | payer OTHER ==
[~2019-01-27] VITALS: Ht 157.5 cm; Wt 51.0 kg
[~2019-01-27 23:07] MED LIST changes: +CEFE1VIA2 IJ; +CEFE2VIA2 IJ; +VANC500F2 IV
[2019-01-27] MEDS ORDERED: methylPREDNISolone SOD SUCC PF 125 MG/2 ML VIAL. IV ONE (23:45)
[2019-01-27] MEDS ORDERED: IPRATRPIUM/ALBUTEROL 0.5/2.5MG 3 ML NEBU. NEB ONE (23:45)
[2019-01-27 23:50] LABS: BASO # 0.1 x10^3/uL (0.0-0.2); BASO % 1 % (0-3); EOS # 0.1 x10^3/uL (0.0-0.7); EOS % 1 % (0-3); HEMATOCRIT 36.2 % (36.0-47.0); HEMOGLOBIN 11.7 g/dL (12.0-15.5); LYMPH # 3.1 x10^3/uL (1.0-4.8); LYMPH % 23 % (24-48); MEAN CORPUSCULAR HEMOGLOBIN 31 pg (25-35); MEAN CORPUSCULAR HGB CONC 32 g/dL (31-37); MEAN CORPUSCULAR VOLUME 95 fL (79-100); MONO # 0.8 x10^3/uL (0.0-1.1); MONO % 6 % (0-9); NEUT # 9.2 x10^3/uL (1.8-7.7); NEUT % 69 % (31-73); PLATELET COUNT 387 x10^3/uL (140-400); RED BLOOD COUNT 3.81 x10^6/uL (3.50-5.40); RED CELL DISTRIBUTION WIDTH 22.1 % (11.5-14.5); WHITE BLOOD COUNT 13.3 x10^3/uL (4.0-11.0)
[2019-01-27 23:56] LABS: CALCIUM 9.4 mg/dL (8.5-10.1); CREATININE 6.6 mg/dL (0.6-1.0); GFR 7.9; POTASSIUM 4.9 mmol/L (3.5-5.1)
[2019-01-28] VITALS (20 sets, daily range): BP systolic 117–184; BP diastolic 51–95
[2019-01-28] MEDS ORDERED: NITROGLYCERIN PREMIX 250 ML IV ONE
[2019-01-28 00:04] LABS: ALBUMIN 3.3 g/dL (3.4-5.0); ALBUMIN/GLOBULIN RATIO 0.7 (1.0-1.7); TOTAL BILIRUBIN 0.4 mg/dL (0.2-1.0); TOTAL PROTEIN 8.2 g/dL (6.4-8.2)
[2019-01-28 00:07] LABS: ANISOCYTOSIS MOD; PLT ESTIMATE ADEQUATE (ADEQUATE)
[2019-01-28 00:08] LABS: HYPOCHROMIA SLIGHT; POLYCHROMASIA SLIGHT
--- NOTE | 2019-01-28 00:10 | RAD ---
AP chest HISTORY: Dyspnea AP view was taken of the chest. The heart is enlarged. There are diffuse bilateral infiltrates with mild interval worsening compared to the study of January 22. IMPRESSION: 1. Cardiomegaly. 2. Worsening bilateral infiltrates. Electronically signed by: Alex Carballo MD (01/28/2019 12:07 AM) [id number]
--- NOTE | 2019-01-28 00:10 | PHYS DOC ---
Past Medical History Past Medical History: Diabetes-Type II, Hypertension, Renal Failure Additional Past Medical Histor: neuropathy, cataracts,CHRONIC PAIN,ESRD Past Surgical History: Hysterectomy, Other Additional Past Surgical Histo: PICC PLACEMENT, R BKA, SHUNT Alcohol Use: None Drug Use: None Adult General Chief Complaint Chief Complaint: SHORTNESS OF BREATH HPI HPI 58 year old female with known history of hypertension, end-stage renal disease hemodialysis of the neck, peripheral last her disease with multiple amputations, tobacco use presents to the emergency department with complaints of shortness of breath. Patient is not forthcoming with information with regards to when her shortness of breath started she does not answer my questions on examination really out of spite. She is requesting pain medications for her back however blood pressures 220 over 100s, her oxygen saturations on 100% nonrebreather were 90%. She states she dialyzes Monday and states she's completed dialysis Monday however has significant history of non compliance. She denies any chest pain, nausea, vomiting. She complains of chronic back pain. Further reviews of systems is unobtainable secondary to patient's nonparticipation. Review of Systems Review of Systems Constitutional: Denies fever or chills [] Eyes: Denies change in visual acuity, redness, or eye pain [] HENT: Denies nasal congestion or sore throat [] Respiratory: Denies cough or shortness of breath [] Cardiovascular: No additional information not addressed in HPI [] GI: Denies abdominal pain, nausea, vomiting, bloody stools or diarrhea [] : Denies dysuria or hematuria [] Musculoskeletal: Denies back pain or joint pain [] Integument: Denies rash or skin lesions [] Neurologic: Denies headache, focal weakness or sensory changes [] Endocrine: Denies polyuria or polydipsia [] All other systems were reviewed and found to be within normal limits, except as documented in this note. Current Medications Current Medications Current Medications Medications (Trade) Dose Ordered Sig/Clarence Start Time Stop Time Status Last Admin Dose Admin Albuterol/ Ipratropium (Duoneb) 3 ml RTQID 01/28/19 08:00 01/29/19 07:59 UNV Methylprednisolone Sodium Succinate (SOLU-Medrol 125MG VIAL) 125 mg 1X ONCE 11/3/19 23:45 01/27/19 23:46 DC 01/27/19 23:45 125 MG Morphine Sulfate (Morphine Sulfate) 2 mg PRN Q6HRS PRN 01/28/19 00:15 01/29/19 00:14 UNV Nitroglycerin/ Dextrose 250 ml @ 0 mls/hr 1X ONCE 01/28/19 00:00 01/28/19 00:01 DC 01/28/19 00:15 1.5 MLS/HR Ondansetron HCl (Zofran) 4 mg PRN Q8HRS PRN 01/28/19 00:15 01/29/19 00:14 UNV Allergies Allergies Allergies Coded Allergies Type Severity Reaction Last Updated Verified No Known Drug Allergies 12/20/18 No Physical Exam Physical Exam Constitutional: Acute respiratory distress secondary to shortness of breath HENT: Normocephalic, atraumatic, bilateral external ears normal, oropharynx moist, no oral exudates, nose normal. [] Eyes: PERRLA, EOMI, conjunctiva normal, no discharge. [] Neck: Normal range of motion, no tenderness, supple, no stridor. [] Cardiovascular: Tachycardia Lungs & Thorax: Crackles throughout, minimal air movement Abdomen: Bowel sounds normal, soft, no tenderness, no masses, no pulsatile masses. [] Skin: Warm, dry, no erythema, no rash. [] Back: No tenderness, no CVA tenderness. [] Extremities: Right lower ext amputation, partial amputation to left foot [] Neurologic: Alert and oriented X 3, no focal deficits noted. [] Psychologic: agitated, nonparticipating [] Current Patient Data Vital Signs Vital Signs Date Time Temp Pulse Resp B/P (MAP) Pulse Ox O2 Delivery O2 Flow Rate FiO2 01/28/19 00:07 100 BiPAP/CPAP 01/27/19 23:21 98.0 126 36 195/90 (125) 15.0 98.0 Lab Values Laboratory Tests Test 01/27/19 23:30 01/27/19 23:37 O2 Saturation 79 % (92-99) L Arterial Blood pH 7.40 (7.35-7.45) Arterial Blood pCO2 at Patient Temp 49 mmHg (35-46) H Arterial Blood pO2 at Patient Temp 46 mmHg (75-108) *L Arterial Blood HCO3 30 mmol/L (21-28) H Arterial Blood Base Excess 4 mmol/L (-3-3) H FiO2 100 White Blood Count 13.3 x10^3/uL (4.0-11.0) H Red Blood Count 3.81 x10^6/uL (3.50-5.40) Hemoglobin 11.7 g/dL (12.0-15.5) L Hematocrit 36.2 % (36.0-47.0) Mean Corpuscular Volume 95 fL (79-100) Mean Corpuscular Hemoglobin 31 pg (25-35) Mean Corpuscular Hemoglobin Concent 32 g/dL (31-37) Red Cell Distribution Width 22.1 % (11.5-14.5) H Platelet Count 387 x10^3/uL (140-400) Neutrophils (%) (Auto) 69 % (31-73) Lymphocytes (%) (Auto) 23 % (24-48) L Monocytes (%) (Auto) 6 % (0-9) Eosinophils (%) (Auto) 1 % (0-3) Basophils (%) (Auto) 1 % (0-3) Neutrophils # (Auto) 9.2 x10^3/uL (1.8-7.7) H Lymphocytes # (Auto) 3.1 x10^3/uL (1.0-4.8) Monocytes # (Auto) 0.8 x10^3/uL (0.0-1.1) Eosinophils # (Auto) 0.1 x10^3/uL (0.0-0.7) Basophils # (Auto) 0.1 x10^3/uL (0.0-0.2) Platelet Estimate Adequate (ADEQUATE) Polychromasia Slight Hypochromasia Slight Anisocytosis Mod Sodium Level 141 mmol/L (136-145) Potassium Level 4.9 mmol/L (3.5-5.1) Chloride Level 102 mmol/L (98-107) Carbon Dioxide Level 30 mmol/L (21-32) Anion Gap 9 (6-14) Blood Urea Nitrogen 51 mg/dL (7-20) H Creatinine 6.6 mg/dL (0.6-1.0) H Estimated GFR (Cockcroft-Gault) 7.9 BUN/Creatinine Ratio 8 (6-20) Glucose Level 179 mg/dL (70-99) H Calcium Level 9.4 mg/dL (8.5-10.1) Total Bilirubin 0.4 mg/dL (0.2-1.0) Aspartate Amino Transferase (AST) 39 U/L (15-37) H Alanine Aminotransferase (ALT) 57 U/L (14-59) Alkaline Phosphatase 106 U/L (46-116) RY-Ecm-A-Type Natriuretic Peptide > 64348 pg/mL (0-124) H Total Protein 8.2 g/dL (6.4-8.2) Albumin 3.3 g/dL (3.4-5.0) L Albumin/Globulin Ratio 0.7 (1.0-1.7) L Laboratory Tests 01/27/19 23:37 Laboratory Tests 01/27/19 23:37 EKG EKG EKG reviewed sinus tachycardia, urgent secondary to heart rate 1:30, left axis deviation no evidence of acute ST elevation [place] appreciated interpretation time 2335[] Radiology/Procedures Radiology/Procedures [] Course & Med Decision Making Course & Med Decision Making Pertinent Labs and Imaging studies reviewed. (See chart for details) []58 year old female with known history of hypertension, end-stage renal disease hemodialysis of the neck, peripheral last her disease with multiple amputations, tobacco use presents to the emergency department with complaints of shortness of breath. Patient is not forthcoming with information with regards to when her shortness of breath started she does not answer my questions on examination really out of spite. She is requesting pain medications for her back however blood pressures 220 over 100s, her oxygen saturations on 100% nonrebreather were 90%. She states she dialyzes Monday and states she's completed dialysis Monday however has significant history of noncompliance. She denies any chest pain, nausea, vomiting. She complains of chronic back pain. Further reviews of systems is unobtainable secondary to patient's nonparticipation. Patient presented with acute respiratory failure, significant pulmonary edema appreciated on x-ray. Blood pressure significant elevated in the 200s. Patient was started on nitroglycerin drip for pulmonary edema and hypertensive urgency. She was placed upon BiPAP given hypoxia. She received DuoNeb as well as Solu- Medrol. Laboratory values reviewed potassium 4.9. White blood cell count is elevated 13.3 however no concern for infectious etiology at this time. Call placed to nephrology chief substation operator Dr. Mahoney he will see patient in consultation for hemodialysis tomorrow. At this time she is safe for observation overnight in the ICU on BiPAP with nitroglycerin gtt given her blood pressures and acute resp distress. She will admit to the ICU. Hospitalist aware of patient admission. Dragon Disclaimer Dragon Disclaimer This electronic medical record was generated, in whole or in part, using a voice recognition dictation system. Critical Care Time Critical care time was 40 minutes exclusive of procedures. Departure Departure Impression: Primary Impression: Acute respiratory failure with hypoxia Additional Impressions: Hypertensive urgency ESRD on hemodialysis Noncompliance with renal dialysis Disposition: ADMITTED INPATIENT Admitting Physician: HIMCoral Condition: IMPROVED Referrals: GRACIELA JUAREZ MD (PCP) Problem Qualifiers MALLORY HOLLAND MD Jan 28, 2019 00:09
[2019-01-28 00:14] LABS: BASE EXCESS ABG 4 mmol/L (-3-3); HCO3 ABG 30 mmol/L (21-28); PCO2 ABG 49 mmHg (35-46); SAT O2 ABG 79 % (92-99)
[2019-01-28 00:17] LABS: PO2 ABG 46 mmHg (75-108)
[2019-01-28 00:18] LABS: FIO2 ABG 100
[2019-01-28] MEDS ORDERED: ONDANSETRON PF 4 MG/2 ML VIAL. IV PRN (00:30)
--- NOTE | 2019-01-28 00:45 | NUR ---
CORRECT TIME/DATE Patient's PRN Fentanyl dose available every four hours as needed, patient upset with this nurse not administering PRN pain medications earlier than every four hours stating, "...10 minutes don't matter, I need it now" and "...bring me my pain pill with it". This nurse explained to patient that PRN medications can only be administered if the ordered amount of time has passed between administrations, no evidence of learning noted. Despite this nurse and patient discussing the possibility that the pain pill could further upset her stomach and also be regurgitated after administration d/t patient's prior nausea and emesis episode(x1), patient still requests PO pain med and PO nausea medication with IV pain meds. Patient in bed, call light within reach, and bed alarm on, will continue to monitor. Addendum: 01/29/19 at 0105 by DIOMEDES MOSELEY RN DOUBLE ENTRY CORRECT TIME/DATE= 01/28/2019 2899
--- NOTE | 2019-01-28 00:45 | NUR ---
Patient's PRN Fentanyl dose available every four hours as needed, patient upset with this nurse not administering PRN pain medications earlier than every four hours stating, "...10 minutes don't matter, I need it now" and "...bring me my pain pill with it". This nurse explained to patient that PRN medications can only be administered if the ordered amount of time has passed between administrations, no evidence of learning noted. Despite this nurse and patient discussing the possibility that the pain pill could further upset her stomach and also be regurgitated after administration d/t patient's prior nausea and emesis episode(x1), patient still requests PO pain med and PO nausea medication with IV pain meds. Patient in bed, call light within reach, and bed alarm on, will continue to monitor. Addendum: 01/29/19 at 0102 by DIOMEDES MOSELEY RN Incorrect time stamp at entry- CORRECT TIME STAMP 01/28/19 0045 Addendum: 01/29/19 at 0107 by DIOMEDES MOSELEY RN DOUBLE ENTRY CORRECT TIME STAMP 01/28/19 [id number]
--- NOTE | 2019-01-28 02:00 | NUR ---
pt admitted to room 105 from ED at this time, placed on Bipap at 100% without difficulty. pt alert and oriented x4, VSS on bipap and Nitro gtt. pt tearful and c/o severe pain to back, has known history of chronic back pain. Morphine given per PRN order. pt oriented to room, unit routines, call light, diet orders and pain medication orders; verbalizes understanding. call light in reach, will continue to closely monitor.
[2019-01-28] MEDS: MORPHINE SULFATE 2 MG/ML VIAL. IV PRN ×2 (02:20→07:39)
[2019-01-28] MEDS ORDERED: NITROGLYCERIN PREMIX 250 ML IV PRN (02:45)
[2019-01-28] MEDS: IPRATRPIUM/ALBUTEROL 0.5/2.5MG 3 ML NEBU. NEB SCH ×4 (07:02→20:26)
--- NOTE | 2019-01-28 07:54 | PDOC1 ---
History and Physical Date of Admission Date of Admission DATE: 01/28/19 TIME: 07:45 Identification/Chief Complaint Chief Complaint Shortness of breath Source Source: Patient History of Present Illness History of Present Illness Ms. Salazar, is a 57 year old F w/ PMHx ESRD on HD M/W/F who p/w shortness of breath. Patient is not forthcoming with information with regards to when her shortness of breath started she does not answer my questions on examination really out of spite. She is requesting pain medications for her back however blood pressures 220 over 100s, her oxygen saturations on 100% nonrebreather were 90%. She denies any chest pain, nausea, vomiting. She complains of chronic back pain. Further reviews of systems is unobtainable secondary to patient's nonparticipation. Patient presented with acute respiratory failure, significant pulmonary edema appreciated on x-ray. Blood pressure significant elevated in the 200s. Patient was started on nitroglycerin drip for pulmonary edema and hypertensive urgency. She was placed upon BiPAP given hypoxia. She received DuoNeb as well as Solu- Medrol. Admitted to ICU on BiPAP with nitroglycerin gtt given her blood pressures and acute resp distress. EKG reviewed sinus tachycardia, urgent secondary to heart rate 1:30, left axis deviation no evidence of acute ST elevation DC. WBC 13.3, BUN, Cr 6.6. She is asking for apple juice this morning [Reports she left shelter AMA and went back to her house at which time patient fell and hurt both the right foot and left BKA stump. She did not come in with a wound vac, unsure how long it has been off. She complains of pain to left foot and right BKA that is "out of control". She was also admitted 2 weeks ago, underwent emergent dialysis and transfusion of 1 u PRBC for a potassium 6.6, BUN 102 and Hb 6.8, left AMA from that hospital stay. She just left [facility] 3 months ago AMA, was planning a RLE angiogram. She returned to the hospital and is now s/p right BKA and left 5th toe amp site debridement. S/p angioplasty Left Anterior tib which is her only run off vessel to her left foot 12/07/18.] Past Medical History Cardiovascular: CHF, HTN, Hyperlipidemia, Other Pulmonary: Asthma, COPD CENTRAL NERVOUS SYSTEM: Periperal neuropathy GI: No pertinent hx Heme/Onc: No pertinent hx Hepatobiliary: No pertinent hx Psych: Anxiety Rheumatologic: Fibromyalgia Infectious disease: No pertinent hx Renal/: Chronic renal failure Endocrine: Diabetes, Hypothyroidism, Hyperparathyroidism Past Surgical History Past Surgical History: Other Family History Family History: High Cholestrol, Hypertension, Other Social History Smoke: <1 pack per day ALCOHOL: occassional Drugs: Cocaine, Marijuana Current Problem List Problem List Problems Medical Problems: (1) Acute respiratory failure with hypoxia Status: Acute (2) ESRD on hemodialysis Status: Chronic Current Medications Current Medications Current Medications Albuterol/ Ipratropium (Duoneb) 3 ml 1X ONCE NEB Last administered on 01/27/19at 23:45; Start 01/27/19 at 23:45; Stop 01/27/19 at 23:46; Status DC Methylprednisolone Sodium Succinate (SOLU-Medrol 125MG VIAL) 125 mg 1X ONCE IV Last administered on 01/27/19at 23:45; Start 01/27/19 at 23:45; Stop 01/27/19 at 23:46; Status DC Nitroglycerin/ Dextrose 250 ml @ 0 mls/hr 1X ONCE IV Last administered on 01/28/19at 00:15; Start 01/28/19 at 00:00; Stop 01/28/19 at 00:01; Status DC Ondansetron HCl (Zofran) 4 mg PRN Q8HRS PRN IV NAUSEA/VOMITING; Start 01/28/19 at 00:30; Stop 01/29/19 at 00:29 Morphine Sulfate (Morphine Sulfate) 2 mg PRN Q6HRS PRN IV PAIN Last ad ministered on 01/28/19at 07:39; Start 01/28/19 at 00:30; Stop 01/29/19 at 00:29 Albuterol/ Ipratropium (Duoneb) 3 ml RTQID NEB Last administered on 01/28/19at 07:02; Start 01/28/19 at 08:00; Stop 01/29/19 at 07:59 Nitroglycerin/ Dextrose 250 ml @ 1.5 mls/hr CONT PRN IV SEE I/O RECORD; Start 01/28/19 at 02:45 Active Scripts Active Humalog (Insulin Lispro) 100 Unit/1 Ml Insuln.pen 0 Units SQ TIDWMEALS 28 Days Culturelle (Lactobacillus Rhamnosus Gg) 1 Each Cap.sprink 1 Cap PO BID 30 Days Ondansetron Odt (Ondansetron) 4 Mg Tab.rapdis 4 Mg PO PRN Q6HRS PRN 28 Days Clopidogrel (Clopidogrel Bisulfate) 75 Mg Tablet 75 Mg PO DAILYWBKFT 30 Days [Cefepime Hcl] 1 GM Vial 1 Gm IVP Q24H 28 Days Pinky-Shreya Tablet (Folic Acid/Vitamin B Comp W-C) 0.8 Mg Tablet 1 Tab PO DAILY Tylenol (Acetaminophen) 325 Mg Capsule 650 Mg PO Q6-8HRS PRN Zantac (Ranitidine Hcl) 300 Mg Tablet 1 Tab PO QHS Compazine (Prochlorperazine Maleate) 5 Mg Tablet 5 Mg PO PRN TID PRN 10 Days [Pantoprazole] 40 MG Tablet.dr 40 Mg PO DAILYAC 30 Days Reported Maxipime (Cefepime Hcl) 2 Gm Vial 2 Gm IJ UD Maxipime (Cefepime Hcl) 1 Gm Vial 1 Gm IJ UD Vanco 500 mg/100 ml-0.9% NaCl (Vancomycin/0.9 % Sod Chloride) 500 Mg/100 Ml Froz.piggy 500 Mg IV MWF WITH DIALYSIS 14 Days Zoloft (Sertraline Hcl) 50 Mg Tablet 50 Mg PO DAILY Lisinopril 20 Mg Tablet 20 Mg PO DAILY Coreg (Carvedilol) 6.25 Mg Tablet 6.25 Mg PO BIDWMEALS Creon 6,000 Units Capsule (Lipase/Protease/Amylase) 1 Each Capsule. 1 Tab PO TID Proair Hfa (Albuterol Sulfate) 8.5 Gm Hfa.aer.ad 2 Puff INH BID PRN Levothyroxine Sodium 50 Mcg Tablet 1 Tab PO DAILY Clonidine Tts-2 (Clonidine) 1 Each Patch.tdwk 1 Patch TD WEEKLY Amlodipine Besylate 5 Mg Tablet 10 Mg PO DAILY Atorvastatin Calcium 40 Mg Tablet 40 Mg PO HS Latanoprost 2.5 Ml Drops 1 Drop EACHEYE HS Allergies Allergies: Coded Allergies: No Known Drug Allergies (Unverified , 12/20/18) ROS General: YES: Fatigue, Malaise; No: Chills, Night Sweats, Appetite, Other PSYCHOLOGICAL ROS: No: Anxiety, Behavioral Disorder, Concentration difficultie, Decreased libido, Depression, Disorientation, Hallucinations, Hostility, Irritablity, Memory difficulties, Mood Swings, Obsessive thoughts, Physical abuse, Sexual abuse, Sleep disturbances, Suicidal ideation, Other Eyes: No Blurry vision, No Decreased vision, No Double vision, No Dry eyes, No Excessive tearing, No Eye Pain, No Itchy Eyes, No Loss of vision, No Photophobia, No Scotomata, No Uses contacts, No Uses glasses, No Other HEENT: No: Heacaches, Visual Changes, Hearing change, Nasal congestion, Nasal discharge, Oral lesions, Sinus pain, Sore Throat, Epistaxis, Sneezing, Snoring, Tinnitus, Vertigo, Vocal changes, Other ALLERGY AND IMMUNOLOGY: No: Hives, Insect Bite Sensitivity, Itchy/Watery Eyes, Nasal Congestion, Post Nasal Drip, Seasonal Allergies, Other Hematological and Lymphatic: No: Bleeding Problems, Blood Clots, Blood Transfusions, Brusing, Night Sweats, Pallor, Swollen Lymph Nodes, Other ENDOCRINE: No: Breast Changes, Galactorrhea, Hair Pattern Changes, Hot Flashes, Malaise/lethargy, Mood Swings, Palpitations, Polydipsia/polyuria, Skin Changes, Temperature Intolerance, Unexpected Weight Changes, Other Breast: No New/Changing Breast Lumps, No Nipple changes, No Nipple discharge, No Other Respiratory: YES: Cough, Shortness of breath, SOB with excertion, Tachypnea; No: Hemoptysis, Orthopnea, Pleuritic Pain, Sputum Changes, Stridor, Wheezing, Other Cardiovascular: yes Chest Pain; No Palpitations, No Orthopnea, No Paroxysmal Noc. Dyspnea, No Edema, No Lt Headedness, No Other Gastrointestinal: Yes Nausea; No Vomiting, No Abdominal Pain, No Diarrhea, No Constipation, No Melena, No Hematochezia, No Other Genitourinary: No Dysuria, No Frequency, No Incontinence, No Hematuria, No Retention, No Discharge, No Urgency, No Pain, No Flank Pain, No Other, No , No , No , No , No , No , No Musculoskeletal: No Gait Disturbance, No Joint Pain, No Joint Stiffness, No Joint Swelling, No Muscle Pain, No Muscular Weakness, No Pain In:, No Swelling In:, No Other Neurological: No Behavorial Changes, No Bowel/Bladder ControlChng, No Confusion, No Dizziness, No Gait Disturbance, No Headaches, No Impaired Coord/balance, No Memory Loss, No Numbness/Tingling, No Seizures, No Speech Problems, No Tremors, No Visual Changes, No Weakness, No Other Skin: No Dry Skin, No Eczema, No Hair Changes, No Lumps, No Mole Changes, No Mottling, No Nail Changes, No Pruritus, No Rash, No Skin Lesion Changes, No Other, No Acne Physical Exam Physical Exam GENERAL: Lying down with blanket over her head. EXTREMITIES: Right [id number] amputation stump well-approx w/ sutures. No redness/drainage. Left foot wound vac in place.- no swelling or warmth SKIN: Warm to touch NEUROLOGIC: Not very conversant On BIPAP In HD nml conj/OC/Op- clear LUNG - CTA CV: S1/S2 Abd: soft NT Vitals Vitals Vital Signs Date Time Temp Pulse Resp B/P (MAP) Pulse Ox O2 Delivery O2 Flow Rate FiO2 01/28/19 07:39 22 80 BiPAP/CPAP 01/28/19 06:00 84 145/62 (89) 01/28/19 02:00 97.7 97.7 01/27/19 23:21 15.0 Labs Labs Laboratory Tests Test 01/27/19 23:30 01/27/19 23:37 O2 Saturation 79 % (92-99) Arterial Blood pH 7.40 (7.35-7.45) Arterial Blood pCO2 at Patient Temp 49 mmHg (35-46) Arterial Blood pO2 at Patient Temp 46 mmHg (75-108) Arterial Blood HCO3 30 mmol/L (21-28) Arterial Blood Base Excess 4 mmol/L (-3-3) FiO2 100 White Blood Count 13.3 x10^3/uL (4.0-11.0) Red Blood Count 3.81 x10^6/uL (3.50-5.40) Hemoglobin 11.7 g/dL (12.0-15.5) Hematocrit 36.2 % (36.0-47.0) Mean Corpuscular Volume 95 fL (79-100) Mean Corpuscular Hemoglobin 31 pg (25-35) Mean Corpuscular Hemoglobin Concent 32 g/dL (31-37) Red Cell Distribution Width 22.1 % (11.5-14.5) Platelet Count 387 x10^3/uL (140-400) Neutrophils (%) (Auto) 69 % (31-73) Lymphocytes (%) (Auto) 23 % (24-48) Monocytes (%) (Auto) 6 % (0-9) Eosinophils (%) (Auto) 1 % (0-3) Basophils (%) (Auto) 1 % (0-3) Neutrophils # (Auto) 9.2 x10^3/uL (1.8-7.7) Lymphocytes # (Auto) 3.1 x10^3/uL (1.0-4.8) Monocytes # (Auto) 0.8 x10^3/uL (0.0-1.1) Eosinophils # (Auto) 0.1 x10^3/uL (0.0-0.7) Basophils # (Auto) 0.1 x10^3/uL (0.0-0.2) Platelet Estimate Adequate (ADEQUATE) Polychromasia Slight Hypochromasia Slight Anisocytosis Mod Sodium Level 141 mmol/L (136-145) Potassium Level 4.9 mmol/L (3.5-5.1) Chloride Level 102 mmol/L (98-107) Carbon Dioxide Level 30 mmol/L (21-32) Anion Gap 9 (6-14) Blood Urea Nitrogen 51 mg/dL (7-20) Creatinine 6.6 mg/dL (0.6-1.0) Estimated GFR (Cockcroft-Gault) 7.9 BUN/Creatinine Ratio 8 (6-20) Glucose Level 179 mg/dL (70-99) Calcium Level 9.4 mg/dL (8.5-10.1) Total Bilirubin 0.4 mg/dL (0.2-1.0) Aspartate Amino Transf (AST/SGOT) 39 U/L (15-37) Alanine Aminotransferase (ALT/SGPT) 57 U/L (14-59) Alkaline Phosphatase 106 U/L (46-116) OD-Rnz-P-Type Natriuretic Peptide > 95062 pg/mL (0-124) Total Protein 8.2 g/dL (6.4-8.2) Albumin 3.3 g/dL (3.4-5.0) Albumin/Globulin Ratio 0.7 (1.0-1.7) Laboratory Tests Test 01/27/19 23:30 01/27/19 23:37 O2 Saturation 79 % (92-99) Arterial Blood pH 7.40 (7.35-7.45) Arterial Blood pCO2 at Patient Temp 49 mmHg (35-46) Arterial Blood pO2 at Patient Temp 46 mmHg (75-108) Arterial Blood HCO3 30 mmol/L (21-28) Arterial Blood Base Excess 4 mmol/L (-3-3) FiO2 100 White Blood Count 13.3 x10^3/uL (4.0-11.0) Red Blood Count 3.81 x10^6/uL (3.50-5.40) Hemoglobin 11.7 g/dL (12.0-15.5) Hematocrit 36.2 % (36.0-47.0) Mean Corpuscular Volume 95 fL (79-100) Mean Corpuscular Hemoglobin 31 pg (25-35) Mean Corpuscular Hemoglobin Concent 32 g/dL (31-37) Red Cell Distribution Width 22.1 % (11.5-14.5) Platelet Count 387 x10^3/uL (140-400) Neutrophils (%) (Auto) 69 % (31-73) Lymphocytes (%) (Auto) 23 % (24-48) Monocytes (%) (Auto) 6 % (0-9) Eosinophils (%) (Auto) 1 % (0-3) Basophils (%) (Auto) 1 % (0-3) Neutrophils # (Auto) 9.2 x10^3/uL (1.8-7.7) Lymphocytes # (Auto) 3.1 x10^3/uL (1.0-4.8) Monocytes # (Auto) 0.8 x10^3/uL (0.0-1.1) Eosinophils # (Auto) 0.1 x10^3/uL (0.0-0.7) Basophils # (Auto) 0.1 x10^3/uL (0.0-0.2) Platelet Estimate Adequate (ADEQUATE) Polychromasia Slight Hypochromasia Slight Anisocytosis Mod Sodium Level 141 mmol/L (136-145) Potassium Level 4.9 mmol/L (3.5-5.1) Chloride Level 102 mmol/L (98-107) Carbon Dioxide Level 30 mmol/L (21-32) Anion Gap 9 (6-14) Blood Urea Nitrogen 51 mg/dL (7-20) Creatinine 6.6 mg/dL (0.6-1.0) Estimated GFR (Cockcroft-Gault) 7.9 BUN/Creatinine Ratio 8 (6-20) Glucose Level 179 mg/dL (70-99) Calcium Level 9.4 mg/dL (8.5-10.1) Total Bilirubin 0.4 mg/dL (0.2-1.0) Aspartate Amino Transf (AST/SGOT) 39 U/L (15-37) Alanine Aminotransferase (ALT/SGPT) 57 U/L (14-59) Alkaline Phosphatase 106 U/L (46-116) JY-Qxc-W-Type Natriuretic Peptide > 40045 pg/mL (0-124) Total Protein 8.2 g/dL (6.4-8.2) Albumin 3.3 g/dL (3.4-5.0) Albumin/Globulin Ratio 0.7 (1.0-1.7) VTE Prophylaxis Ordered VTE Prophylaxis Devices: No VTE Pharmacological Prophylaxi: Yes Assessment/Plan Assessment/Plan A/P: Acute hypoxic respiratory failure - on BIPAP, likely combination of pulmonary edema from uncontrolled hypertension and compliance difficulties with dialysis and renal diet as well as smoking and ETOH cessation HTN Emergency - coreg and amlodipine Right stump pain - sees vascular surgery ESRD - need dialysis regularly outpatient. Consulted nephrology. BUN normalized she should be dialyzed today Acute Anemia - of chronic renal disease, will f/u outpatient CBC at dialysis, symptomatic. 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 Nonvisualization of flow in the distal [employer] suggests occlusion, age indeterminate. FEN- Renal diet PPX - heparin FULL CODE Dispo - inpatient for now. I think palliative care should be involved at some point. She is not making sound decisions. I will attempt to contact her daughter. 36 minutes Critical care time FELI SHAH MD Jan 28, 2019 07:54
[2019-01-28] MEDS ORDERED: IV NORMAL SALINE 1000ML BAG 1,000 ML IV PRN ×2 (08:37)
[2019-01-28] MEDS ORDERED: ALBUTEROL SULFATE 2.5 MG/3 ML NEBU. INH PRN (08:45)
[2019-01-28] MEDS ORDERED: ONDANSETRON ODT 4 MG TAB.RAPDIS. PO PRN (08:45)
[2019-01-28] MEDS ORDERED: PROCHLORPERAZINE 5 MG TABLET. PO PRN (08:45)
[2019-01-28] MEDS ORDERED: DIALYSIS PATIENT. MC PRN ×2 (08:45)
--- NOTE | 2019-01-28 08:56 | EKG ---
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
[2019-01-28] MEDS ORDERED: cloNIDine TTS-2 1 PATCH PATCH TD SCH (09:00)
[2019-01-28] MEDS ORDERED: DEXTROSE 50% 25 GM / 50ML DISP.SYRIN. IV PRN (09:00)
[2019-01-28] MEDS: amLODIPine BESYLATE 10 MG TABLET PO SCH (09:00)
[2019-01-28] MEDS: LISINOPRIL 20 MG TABLET PO SCH (09:00)
[2019-01-28] MEDS: INSULIN LISPRO 300 UNITS/3 ML VIAL. SQ SCH ×3 (09:30→17:39)
--- NOTE | 2019-01-28 09:58 | PDOC2 ---
CONSULT Date of Consult Date of Consult DATE: 01/28/19 TIME: 09:47 Reason for Consult Reason for Consult: ESRD on dialysis, respiratory distress Referring Physician Referring Physician: chiqui Identification/Chief Complaint Chief Complaint Shortness of breath Source Source: Chart review History of Present Illness Reason for Visit: Mrs. Salazar is a 58-year-old -[place] female who is reportedly not very compliant with her care overall. She is known to have a history of illicit drug use, pain medication abuse and hospital hopping. She gets discharged from [facility] and often she was up at this facility, and vice versa. She is noted to be not very forthcoming with information regarding her presenting symptoms per history of present illness by Dr. Hoyos. She apparently complained of significant amount of pain and was given morphine to the point where I'm unable to awaken her for a full history of present illness. It is however noted that she presented to the ER with complaints of back pain and was noted to have blood pressures of 220s over 100s. She required a nonrebreather to maintain her oxygen saturations. Her chest x-ray apparently did show pulmonary edema. Hence early dialysis was ordered for the patient. Patient has been seen on dialysis. She remains on BiPAP currently. ABGs at presentation was 7.40/49/46/30 on 100% FiO2 with an oxygen saturation of 79% It is reported that patient left AMA from her [place] [facility]. Reportedly she did go to dialysis on Monday per her regular day. Past Medical History Cardiovascular: CHF, HTN, Hyperlipidemia, Other Pulmonary: Asthma, COPD CENTRAL NERVOUS SYSTEM: Periperal neuropathy GI: No pertinent hx Heme/Onc: No pertinent hx Hepatobiliary: No pertinent hx Psych: Anxiety Musculoskeletal: Other (lower extremity amputation) Rheumatologic: Fibromyalgia Infectious disease: No pertinent hx Renal/: Chronic renal failure Endocrine: Diabetes, Hypothyroidism, Hyperparathyroidism Past Surgical History Past Surgical History: Other Family History Family History: High Cholestrol, Hypertension, Other (daughter is on dialysis also) Social History <1 pack per day ALCOHOL: occassional Drugs: Cocaine, Marijuana Lives: with Family Current Problem List Problem List Problems Medical Problems: (1) Acute respiratory failure with hypoxia Status: Acute (2) ESRD on hemodialysis Status: Chronic Current Medications Current Medications Current Medications Albuterol/ Ipratropium (Duoneb) 3 ml 1X ONCE NEB Last administered on 01/27/19at 23:45; Start 01/27/19 at 23:45; Stop 01/27/19 at 23:46; Status DC Methylprednisolone Sodium Succinate (SOLU-Medrol 125MG VIAL) 125 mg 1X ONCE IV Last administered on 01/27/19at 23:45; Start 01/27/19 at 23:45; Stop 01/27/19 at 23:46; Status DC Nitroglycerin/ Dextrose 250 ml @ 0 mls/hr 1X ONCE IV Last administered on 01/28/19at 00:15; Start 01/28/19 at 00:00; Stop 01/28/19 at 00:01; Status DC Ondansetron HCl (Zofran) 4 mg PRN Q8HRS PRN IV NAUSEA/VOMITING; Start 01/28/19 at 00:30; Stop 01/29/19 at 00:29 Morphine Sulfate (Morphine Sulfate) 2 mg PRN Q6HRS PRN IV PAIN Last administered on 01/28/19at 07:39; Start 01/28/19 at 00:30; Stop 01/28/19 at 08:41; Status DC Albuterol/ Ipratropium (Duoneb) 3 ml RTQID NEB Last administered on 01/28/19at 07:02; Start 01/28/19 at 08:00; Stop 01/29/19 at 07:59 Nitroglycerin/ Dextrose 250 ml @ 1.5 mls/hr CONT PRN IV SEE I/O RECORD; Start 01/28/19 at 02:45 Sodium Chloride 1,000 ml @ 1,000 mls/hr Q1H PRN IV hypotension; Start 01/28/19 at 08:37; Stop 01/28/19 at 14:36 Sodium Chloride 1,000 ml @ 400 mls/hr Q2H30M PRN IV PATENCY; Start 01/28/19 at 08:37; Stop 01/28/19 at 20:36 Info (PHARMACY MONITORING -- do not chart) 1 each PRN DAILY PRN MC SEE COMMENTS; Start 01/28/19 at 08:45; Status UNV Info (PHARMACY MONITORING -- do not chart) 1 each PRN DAILY PRN MC SEE COMMENTS; Start 01/28/19 at 08:45 Fentanyl Citrate (Fentanyl 2ml Vial) 25 mcg PRN Q4HRS PRN IVP PAIN; Start 01/28/19 at 08:45 Albuterol Sulfate (Ventolin Neb Soln) 2.5 mg PRN BID PRN INH SHORTNESS OF BREATH; Start 01/28/19 at 08:45 Amlodipine Besylate (Norvasc) 10 mg DAILY PO ; Start 01/28/19 at 09:00 Atorvastatin Calcium (Lipitor) 40 mg HS PO ; Start 01/28/19 at 21:00 Carvedilol (Coreg) 6.25 mg BIDWMEALS PO ; Start 01/28/19 at 09:00 Clonidine HCl (Catapres Tts-2) 1 patch WEEKLY TD ; Start 01/28/19 at 09:00 Clopidogrel Bisulfate (Plavix) 75 mg DAILYWBKFT PO ; Start 01/28/19 at 09:00 Vitamin B Complex/ Vitamin C (Pinky-Srheya) 1 tab DAILY PO ; Start 01/28/19 at 09:00 Insulin Human Lispro (HumaLOG) TIDWMEALS SQ ; Start 01/28/19 at 12:00; Status UNV Lactobacillus Rhamnosus (Culturelle) 1 cap BID PO ; Start 01/28/19 at 09:00 Latanoprost (Xalatan) 1 drop HS OU ; Start 01/28/19 at 21:00 Levothyroxine Sodium (Synthroid) 50 mcg DAILY PO ; Start 01/28/19 at 09:00 Lisinopril (Prinivil) 20 mg DAILY PO ; Start 01/28/19 at 09:00 Ondansetron HCl (Zofran Odt) 4 mg PRN Q6HRS PRN PO NAUSEA/VOMITING 1ST CHOICE; Start 01/28/19 at 08:45 Prochlorperazine Maleate (Compazine) 5 mg PRN TID PRN PO NAUSEA; Start 01/28/19 at 08:45 Sertraline HCl (Zoloft) 50 mg DAILY PO ; Start 01/28/19 at 09:00 Acetaminophen (Tylenol) 650 mg PRN Q6HRS PRN PO MILD PAIN / TEMP; Start 01/28/19 at 09:00 Amylase/Lipase/ Protease (Zenpep 5,000) 1 cap TIDWMEALS PO ; Start 01/28/19 at 12:00 Pantoprazole Sodium (Protonix) 40 mg DAILYAC PO ; Start 01/28/19 at 09:00 Insulin Human Lispro (HumaLOG) 0-7 UNITS TIDWMEALS SQ ; Start 01/28/19 at 09:30 Dextrose (Dextrose 50%-Water Syringe) 12.5 gm PRN Q15MIN PRN IV SEE COMMENTS; Start 01/28/19 at 09:00 Active Scripts Active Humalog (Insulin Lispro) 100 Unit/1 Ml Insuln.pen 0 Units SQ TIDWMEALS 28 Days Culturelle (Lactobacillus Rhamnosus Gg) 1 Each Cap.sprink 1 Cap PO BID 30 Days Ondansetron Odt (Ondansetron) 4 Mg Tab.rapdis 4 Mg PO PRN Q6HRS PRN 28 Days Clopidogrel (Clopidogrel Bisulfate) 75 Mg Tablet 75 Mg PO DAILYWBKFT 30 Days [Cefepime Hcl] 1 GM Vial 1 Gm IVP Q24H 28 Days Pinky-Shreya Tablet (Folic Acid/Vitamin B Comp W-C) 0.8 Mg Tablet 1 Tab PO DAILY Tylenol (Acetaminophen) 325 Mg Capsule 650 Mg PO Q6-8HRS PRN Zantac (Ranitidine Hcl) 300 Mg Tablet 1 Tab PO QHS Compazine (Prochlorperazine Maleate) 5 Mg Tablet 5 Mg PO PRN TID PRN 10 Days [Pantoprazole] 40 MG Tablet. 40 Mg PO DAILYAC 30 Days Reported Maxipime (Cefepime Hcl) 2 Gm Vial 2 Gm IJ UD Maxipime (Cefepime Hcl) 1 Gm Vial 1 Gm IJ UD Vanco 500 mg/100 ml-0.9% NaCl (Vancomycin/0.9 % Sod Chloride) 500 Mg/100 Ml Froz.piggy 500 Mg IV MWF WITH DIALYSIS 14 Days Zoloft (Sertraline Hcl) 50 Mg Tablet 50 Mg PO DAILY Lisinopril 20 Mg Tablet 20 Mg PO DAILY Coreg (Carvedilol) 6.25 Mg Tablet 6.25 Mg PO BIDWMEALS Shante Knowles 6,000 Units Capsule (Lipase/Protease/Amylase) 1 Each Capsule. 1 Tab PO TID Proair Hfa (Albuterol Sulfate) 8.5 Gm Hfa.aer.ad 2 Puff INH BID PRN Levothyroxine Sodium 50 Mcg Tablet 1 Tab PO DAILY Clonidine Tts-2 (Clonidine) 1 Each Patch.tdwk 1 Patch TD WEEKLY Amlodipine Besylate 5 Mg Tablet 10 Mg PO DAILY Atorvastatin Calcium 40 Mg Tablet 40 Mg PO HS Latanoprost 2.5 Ml Drops 1 Drop EACHEYE HS Allergies Allergies: Coded Allergies: No Known Drug Allergies (Unverified , 12/20/18) ROS Review of System I'm unable to obtain review of systems from the patient due to sedated state him recently administered opioid medications. She remains on BiPAP. Physical Exam Physical Exam General Appearance: not Awake, somewhat sedated, barely arousable. Oriented x ? When awake In moderate respiratory Distress Eyes: Sclera is anicteric Conjunctiva Normal, pupils are sluggishly reactive EN: No EN Drainage Mucous Memb. Dry while on BiPAP Neck: no JVD + JVP Supple palpable Thyromegaly CVS: S1 S2 + Murmur No Gallop No Rub no Edema Resp: Few basal bilateral Rales occasional expiratory Rhonchi minimal Acc. Muscle use GI: BAS +ve NO Bruit Non Tender Non Distended : no CVA tenderness; no Suprapubic Tenderness SKIN: No visible Rashes Breast Exam deferred Mu.Sk: Adequate passive ROM minimal Muscle Atrophy Heme: Unable to palpate Obvious LAD no palpable Splenomegaly NEURO: No elicitable asterixis is noted Psych: Unable to currently assess due to sedated state Vital Signs Vital Signs Date Time Temp Pulse Resp B/P (MAP) Pulse Ox O2 Delivery O2 Flow Rate FiO2 01/28/19 09:00 60 BiPAP/CPAP 01/28/19 07:39 22 01/28/19 06:00 84 145/62 (89) 01/28/19 02:00 97.7 97.7 01/27/19 23:21 15.0 Assessment & Plan ESRD patient was seen on dialysis. Vital signs on dialysis 171/61 with a heart rate of 91. She is afebrile. Remains on BiPAP currently Respiratory distress: Presumably associated with fluid overloaded state. Ultrafilter approximately 4-5 L as tolerated. Weights suggest that patient is approximately 8 kg over her dry weight. Defer to pulmonary to evaluate further. Fluid overloadhypervolemia: Ultrafilter as best tolerated. Will need extra ultr afiltration tomorrow again. Anemia: Currently hemoglobin 11.7. No further Epogen will be ordered for now. Pertinence of emergency: Patient was initially started on nitroglycerin drip. Once she is able to take by mouth and then oral medications will be restarted and IV would be weaned. Pulmonary edema: No recent echocardiogram available in our system. May need cardiology evaluation also for same Discussed Plan of Care with dialysis nurse at bedside as well as ICU nurse. Labs Labs Laboratory Tests Test 01/27/19 23:30 01/27/19 23:37 O2 Saturation 79 % (92-99) Arterial Blood pH 7.40 (7.35-7.45) Arterial Blood pCO2 at Patient Temp 49 mmHg (35-46) Arterial Blood pO2 at Patient Temp 46 mmHg (75-108) Arterial Blood HCO3 30 mmol/L (21-28) Arterial Blood Base Excess 4 mmol/L (-3-3) FiO2 100 White Blood Count 13.3 x10^3/uL (4.0-11.0) Red Blood Count 3.81 x10^6/uL (3.50-5.40) Hemoglobin 11.7 g/dL (12.0-15.5) Hematocrit 36.2 % (36.0-47.0) Mean Corpuscular Volume 95 fL (79-100) Mean Corpuscular Hemoglobin 31 pg (25-35) Mean Corpuscular Hemoglobin Concent 32 g/dL (31-37) Red Cell Distribution Width 22.1 % (11.5-14.5) Platelet Count 387 x10^3/uL (140-400) Neutrophils (%) (Auto) 69 % (31-73) Lymphocytes (%) (Auto) 23 % (24-48) Monocytes (%) (Auto) 6 % (0-9) Eosinophils (%) (Auto) 1 % (0-3) Basophils (%) (Auto) 1 % (0-3) Neutrophils # (Auto) 9.2 x10^3/uL (1.8-7.7) Lymphocytes # (Auto) 3.1 x10^3/uL (1.0-4.8) Monocytes # (Auto) 0.8 x10^3/uL (0.0-1.1) Eosinophils # (Auto) 0.1 x10^3/uL (0.0-0.7) Basophils # (Auto) 0.1 x10^3/uL (0.0-0.2) Platelet Estimate Adequate (ADEQUATE) Polychromasia Slight Hypochromasia Slight Anisocytosis Mod Sodium Level 141 mmol/L (136-145) Potassium Level 4.9 mmol/L (3.5-5.1) Chloride Level 102 mmol/L (98-107) Carbon Dioxide Level 30 mmol/L (21-32) Anion Gap 9 (6-14) Blood Urea Nitrogen 51 mg/dL (7-20) Creatinine 6.6 mg/dL (0.6-1.0) Estimated GFR (Cockcroft-Gault) 7.9 BUN/Creatinine Ratio 8 (6-20) Glucose Level 179 mg/dL (70-99) Calcium Level 9.4 mg/dL (8.5-10.1) Total Bilirubin 0.4 mg/dL (0.2-1.0) Aspartate Amino Transf (AST/SGOT) 39 U/L (15-37) Alanine Aminotransferase (ALT/SGPT) 57 U/L (14-59) Alkaline Phosphatase 106 U/L (46-116) UK-Wzz-Q-Type Natriuretic Peptide > 60401 pg/mL (0-124) Total Protein 8.2 g/dL (6.4-8.2) Albumin 3.3 g/dL (3.4-5.0) Albumin/Globulin Ratio 0.7 (1.0-1.7) Laboratory Tests Test 01/27/19 23:30 01/27/19 23:37 O2 Saturation 79 % (92-99) Arterial Blood pH 7.40 (7.35-7.45) Arterial Blood pCO2 at Patient Temp 49 mmHg (35-46) Arterial Blood pO2 at Patient Temp 46 mmHg (75-108) Arterial Blood HCO3 30 mmol/L (21-28) Arterial Blood Base Excess 4 mmol/L (-3-3) FiO2 100 White Blood Count 13.3 x10^3/uL (4.0-11.0) Red Blood Count 3.81 x10^6/uL (3.50-5.40) Hemoglobin 11.7 g/dL (12.0-15.5) Hematocrit 36.2 % (36.0-47.0) Mean Corpuscular Volume 95 fL (79-100) Mean Corpuscular Hemoglobin 31 pg (25-35) Mean Corpuscular Hemoglobin Concent 32 g/dL (31-37) Red Cell Distribution Width 22.1 % (11.5-14.5) Platelet Count 387 x10^3/uL (140-400) Neutrophils (%) (Auto) 69 % (31-73) Lymphocytes (%) (Auto) 23 % (24-48) Monocytes (%) (Auto) 6 % (0-9) Eosinophils (%) (Auto) 1 % (0-3) Basophils (%) (Auto) 1 % (0-3) Neutrophils # (Auto) 9.2 x10^3/uL (1.8-7.7) Lymphocytes # (Auto) 3.1 x10^3/uL (1.0-4.8) Monocytes # (Auto) 0.8 x10^3/uL (0.0-1.1) Eosinophils # (Auto) 0.1 x10^3/uL (0.0-0.7) Basophils # (Auto) 0.1 x10^3/uL (0.0-0.2) Platelet Estimate Adequate (ADEQUATE) Polychromasia Slight Hypochromasia Slight Anisocytosis Mod Sodium Level 141 mmol/L (136-145) Potassium Level 4.9 mmol/L (3.5-5.1) Chloride Level 102 mmol/L (98-107) Carbon Dioxide Level 30 mmol/L (21-32) Anion Gap 9 (6-14) Blood Urea Nitrogen 51 mg/dL (7-20) Creatinine 6.6 mg/dL (0.6-1.0) Estimated GFR (Cockcroft-Gault) 7.9 BUN/Creatinine Ratio 8 (6-20) Glucose Level 179 mg/dL (70-99) Calcium Level 9.4 mg/dL (8.5-10.1) Total Bilirubin 0.4 mg/dL (0.2-1.0) Aspartate Amino Transf (AST/SGOT) 39 U/L (15-37) Alanine Aminotransferase (ALT/SGPT) 57 U/L (14-59) Alkaline Phosphatase 106 U/L (46-116) TT-Kuw-Z-Type Natriuretic Peptide > 78373 pg/mL (0-124) Total Protein 8.2 g/dL (6.4-8.2) Albumin 3.3 g/dL (3.4-5.0) Albumin/Globulin Ratio 0.7 (1.0-1.7) Review All relevant outside records, renal labs, imaging studies, telemetry/EKG's were reviewed. Images Images HISTORY: Dyspnea AP view was taken of the chest. The heart is enlarged. There are diffuse bilateral infiltrates with mild interval worsening compared to the study of January 22. IMPRESSION: 1. Cardiomegaly. 2. Worsening bilateral infiltrates. PAOLA YATES MD Jan 28, 2019 09:58
--- NOTE | 2019-01-28 10:58 | NUR ---
SS following for discharge planning. SS reviewed pt chart. [facility], ; fax [phone]. At discharge pt was refusing care and was requesting IV pain medications. Pt has outpatient dialysis in the community with [facility], ; fax [phone]. [facility] reported that pt had dialysis on Monday but has a 50% compliance rate with dialysis and half the time does not show. Pt is from home and is currently on the BIPAP. SS will continue to follow for discharge planning. Pt is a high risk readmission risk due to lack of compliance with services.
[2019-01-28] MEDS ORDERED: INSULIN LISPRO 300 UNITS/3 ML VIAL. SQ SCH (12:00)
--- NOTE | 2019-01-28 12:12 | PDOC ---
PULMONARY PROGRESS NOTES Vitals Vital Signs Date Time Temp Pulse Resp B/P (MAP) Pulse Ox O2 Delivery O2 Flow Rate FiO2 01/28/19 11:12 97 BiPAP/CPAP 01/28/19 11:00 100 22 123/57 (79) 01/28/19 08:00 97.6 97.6 01/27/19 23:21 15.0 General: Alert, No acute distress Lungs: Clear Cardiovascular: S1, S2 Abdomen: Soft Extremities: No Edema, Other Labs Laboratory Tests Test 01/27/19 23:30 01/27/19 23:37 O2 Saturation 79 % (92-99) Arterial Blood pH 7.40 (7.35-7.45) Arterial Blood pCO2 at Patient Temp 49 mmHg (35-46) Arterial Blood pO2 at Patient Temp 46 mmHg (75-108) Arterial Blood HCO3 30 mmol/L (21-28) Arterial Blood Base Excess 4 mmol/L (-3-3) FiO2 100 White Blood Count 13.3 x10^3/uL (4.0-11.0) Red Blood Count 3.81 x10^6/uL (3.50-5.40) Hemoglobin 11.7 g/dL (12.0-15.5) Hematocrit 36.2 % (36.0-47.0) Mean Corpuscular Volume 95 fL (79-100) Mean Corpuscular Hemoglobin 31 pg (25-35) Mean Corpuscular Hemoglobin Concent 32 g/dL (31-37) Red Cell Distribution Width 22.1 % (11.5-14.5) Platelet Count 387 x10^3/uL (140-400) Neutrophils (%) (Auto) 69 % (31-73) Lymphocytes (%) (Auto) 23 % (24-48) Monocytes (%) (Auto) 6 % (0-9) Eosinophils (%) (Auto) 1 % (0-3) Basophils (%) (Auto) 1 % (0-3) Neutrophils # (Auto) 9.2 x10^3/uL (1.8-7.7) Lymphocytes # (Auto) 3.1 x10^3/uL (1.0-4.8) Monocytes # (Auto) 0.8 x10^3/uL (0.0-1.1) Eosinophils # (Auto) 0.1 x10^3/uL (0.0-0.7) Basophils # (Auto) 0.1 x10^3/uL (0.0-0.2) Platelet Estimate Adequate (ADEQUATE) Polychromasia Slight Hypochromasia Slight Anisocytosis Mod Sodium Level 141 mmol/L (136-145) Potassium Level 4.9 mmol/L (3.5-5.1) Chloride Level 102 mmol/L (98-107) Carbon Dioxide Level 30 mmol/L (21-32) Anion Gap 9 (6-14) Blood Urea Nitrogen 51 mg/dL (7-20) Creatinine 6.6 mg/dL (0.6-1.0) Estimated GFR (Cockcroft-Gault) 7.9 BUN/Creatinine Ratio 8 (6-20) Glucose Level 179 mg/dL (70-99) Calcium Level 9.4 mg/dL (8.5-10.1) Total Bilirubin 0.4 mg/dL (0.2-1.0) Aspartate Amino Transf (AST/SGOT) 39 U/L (15-37) Alanine Aminotransferase (ALT/SGPT) 57 U/L (14-59) Alkaline Phosphatase 106 U/L (46-116) YR-Rki-D-Type Natriuretic Peptide > 20117 pg/mL (0-124) Total Protein 8.2 g/dL (6.4-8.2) Albumin 3.3 g/dL (3.4-5.0) Albumin/Globulin Ratio 0.7 (1.0-1.7) Laboratory Tests Test 01/27/19 23:30 01/27/19 23:37 O2 Saturation 79 % (92-99) Arterial Blood pH 7.40 (7.35-7.45) Arterial Blood pCO2 at Patient Temp 49 mmHg (35-46) Arterial Blood pO2 at Patient Temp 46 mmHg (75-108) Arterial Blood HCO3 30 mmol/L (21-28) Arterial Blood Base Excess 4 mmol/L (-3-3) FiO2 100 White Blood Count 13.3 x10^3/uL (4.0-11.0) Red Blood Count 3.81 x10^6/uL (3.50-5.40) Hemoglobin 11.7 g/dL (12.0-15.5) Hematocrit 36.2 % (36.0-47.0) Mean Corpuscular Volume 95 fL (79-100) Mean Corpuscular Hemoglobin 31 pg (25-35) Mean Corpuscular Hemoglobin Concent 32 g/dL (31-37) Red Cell Distribution Width 22.1 % (11.5-14.5) Platelet Count 387 x10^3/uL (140-400) Neutrophils (%) (Auto) 69 % (31-73) Lymphocytes (%) (Auto) 23 % (24-48) Monocytes (%) (Auto) 6 % (0-9) Eosinophils (%) (Auto) 1 % (0-3) Basophils (%) (Auto) 1 % (0-3) Neutrophils # (Auto) 9.2 x10^3/uL (1.8-7.7) Lymphocytes # (Auto) 3.1 x10^3/uL (1.0-4.8) Monocytes # (Auto) 0.8 x10^3/uL (0.0-1.1) Eosinophils # (Auto) 0.1 x10^3/uL (0.0-0.7) Basophils # (Auto) 0.1 x10^3/uL (0.0-0.2) Platelet Estimate Adequate (ADEQUATE) Polychromasia Slight Hypochromasia Slight Anisocytosis Mod Sodium Level 141 mmol/L (136-145) Potassium Level 4.9 mmol/L (3.5-5.1) Chloride Level 102 mmol/L (98-107) Carbon Dioxide Level 30 mmol/L (21-32) Anion Gap 9 (6-14) Blood Urea Nitrogen 51 mg/dL (7-20) Creatinine 6.6 mg/dL (0.6-1.0) Estimated GFR (Cockcroft-Gault) 7.9 BUN/Creatinine Ratio 8 (6-20) Glucose Level 179 mg/dL (70-99) Calcium Level 9.4 mg/dL (8.5-10.1) Total Bilirubin 0.4 mg/dL (0.2-1.0) Aspartate Amino Transf (AST/SGOT) 39 U/L (15-37) Alanine Aminotransferase (ALT/SGPT) 57 U/L (14-59) Alkaline Phosphatase 106 U/L (46-116) KB-Nuw-L-Type Natriuretic Peptide > 77908 pg/mL (0-124) Total Protein 8.2 g/dL (6.4-8.2) Albumin 3.3 g/dL (3.4-5.0) Albumin/Globulin Ratio 0.7 (1.0-1.7) Medications Active Scripts Medications Dose Route/Sig Max Daily Dose Days Date Category Maxipime (Cefepime Hcl) 2 Gm Vial 2 Gm IJ UD 01/23/19 Reported Maxipime (Cefepime Hcl) 1 Gm Vial 1 Gm IJ UD 01/23/19 Reported Vanco 500 mg/100 ml-0.9% NaCl (Vancomycin/0.9 % Sod Chloride) 500 Mg/100 Ml Froz.piggy 500 Mg IV MWF WITH DIALYSIS 14 01/23/19 Reported Humalog (Insulin Lispro) 100 Unit/1 Ml Insuln.pen 0 Units SQ TIDWMEALS 28 12/26/18 Rx Culturelle (Lactobacillus Rhamnosus Gg) 1 Each Cap.sprink 1 Cap PO BID 30 12/26/18 Rx Ondansetron Odt (Ondansetron) 4 Mg Tab.rapdis 4 Mg PO PRN Q6HRS PRN 28 12/26/18 Rx Clopidogrel (Clopidogrel Bisulfate) 75 Mg Tablet 75 Mg PO DAILYWBKFT 30 12/26/18 Rx [Cefepime Hcl] 1 GM Vial 1 Gm IVP Q24H 28 12/26/18 Rx Pinky-Shreya Tablet (Folic Acid/Vitamin B Comp W-C) 0.8 Mg Tablet 1 Tab PO DAILY 12/10/18 Rx Tylenol (Acetaminophen) 325 Mg Capsule 650 Mg PO Q6-8HRS PRN 11/14/18 Rx Zantac (Ranitidine Hcl) 300 Mg Tablet 1 Tab PO QHS 08/29/18 Rx Compazine (Prochlorperazine Maleate) 5 Mg Tablet 5 Mg PO PRN TID PRN 10 08/26/18 Rx Zoloft (Sertraline Hcl) 50 Mg Tablet 50 Mg PO DAILY 05/27/18 Reported Lisinopril 20 Mg Tablet 20 Mg PO DAILY 05/27/18 Reported Coreg (Carvedilol) 6.25 Mg Tablet 6.25 Mg PO BIDWMEALS 05/08/18 Reported Shante Knowles 6,000 Units Capsule (Lipase/Protease/Amylase) 1 Each Capsule.dr 1 Tab PO TID 04/23/18 Reported Proair Hfa (Albuterol Sulfate) 8.5 Gm Hfa.aer.ad 2 Puff INH BID PRN 03/22/18 Reported Levothyroxine Sodium 50 Mcg Tablet 1 Tab PO DAILY 03/22/18 Reported Clonidine Tts-2 (Clonidine) 1 Each Patch.tdwk 1 Patch TD WEEKLY 03/22/18 Reported [Pantoprazole] 40 MG Tablet.dr 40 Mg PO DAILYAC 30 03/07/18 Rx Amlodipine Besylate 5 Mg Tablet 10 Mg PO DAILY 12/05/17 Reported Atorvastatin Calcium 40 Mg Tablet 40 Mg PO HS 12/05/17 Reported Latanoprost 2.5 Ml Drops 1 Drop EACHEYE HS 09/24/17 Reported Impression . NOTE DICTATED A/C RESP FAILURE/ACUTE CHRONIC CHF THANKS WILL FOLLOW DIFFICULT CASE SEC TO PT NON COMPLIANCE RADHA FAGAN MD Jan 28, 2019 12:12
--- NOTE | 2019-01-28 12:23 | CONS ---
DATE OF CONSULTATION: 01/28/2019 ATTENDING PHYSICIAN: Jeffrey Wilhelm MD REASON FOR CONSULTATION: The patient seen in pulmonary consultation at the request of Dr. Wilhelm for acute respiratory failure requiring noninvasive ventilation with BiPAP. HISTORY OF PRESENT ILLNESS: The patient is a 77-year-old with a complex past medical history of end-stage renal disease on hemodialysis, peripheral vascular disease with previous right below knee amputations and previous left toe amputation, presented with some shortness of breath. She was evaluated in the Emergency Room, found to have a chest x-ray compatible with acute CHF. She was transferred to the Intensive Care Unit, placed on BiPAP. Her labs were reviewed. Chest x-ray was likewise reviewed. Arterial blood gas revealed a pH of 7.40, PaCO2 of 49, PaO2 of 46. The x-ray revealed bilateral pulmonary infiltrates compatible with CHF. I was asked to see him in consultation. The patient is currently off of BiPAP. She is in no respiratory distress. She is reluctant to answer most of my questions. She is asking for pain medication. PAST MEDICAL HISTORY: Otherwise obtained by reviewing the current documentation, type 2 diabetes, hypertension, renal failure on hemodialysis, neuropathy, cataract, chronic pain, hysterectomy, previous PICC line emplacement. REVIEW OF SYSTEMS: CONSTITUTIONAL: Denies fever or chills. EYES: No change in visual acuity. HENT: No nasal congestion or sore throat. PULMONARY: As indicated above. She normally does not wear oxygen at home. CARDIOVASCULAR: No chest pain. No pressure. GASTROINTESTINAL: No nausea, vomiting, or diarrhea. GENITOURINARY: No dysuria or frequency. MUSCULOSKELETAL: She has pain all over. No localized muscle aches or joint pain. ALLERGIES: No known drug allergies. CURRENT MEDICATIONS: List was reviewed. SOCIAL HISTORY: She denies any tobacco or alcohol. PHYSICAL EXAMINATION: VITAL SIGNS: Stable. O2 saturation currently on 2 liters was greater than 92%. HEENT: Eyes; the sclerae were nonicteric. NECK: Jugular venous distention was not elevated. No lymphadenopathy. CHEST: Full expansion. LUNGS: Crackles throughout both lung berumen. CARDIOVASCULAR: Regular rate and rhythm with S1, S2. No S3. ABDOMEN: Soft, nontender, nondistended. EXTREMITIES: No clubbing, cyanosis or edema. Previous right below knee amputation, previous left toe surgery. ABDOMEN: Soft. LABORATORY DATA: Reviewed. Chest x-ray as indicated above. IMPRESSION: 1. Acute on chronic respiratory failure secondary to acute on chronic pulmonary edema. 2. Uncontrolled hypertension. 3. End-stage renal dialysis. The patient is noncompliant. 4. Right stump pain. 5. Acute blood loss anemia. 6. Anasarca. 7. Hypothyroidism. 8. Left fifth digit amputation. 9. Dyslipidemia. 10. Peripheral arterial disease. PLAN: 1. We will continue support with noninvasive ventilation. 2. Negative fluid balance. 3. Repeat chest x-ray in the a.m. 4. Follow Nephrology input. I do appreciate the privilege in sharing in the patient's care. RADHA FAGAN MD DR: RADHA/franny JOB#: [id number] / [id number]
[2019-01-28] MEDS: ACETAMINOPHEN 325 MG TABLET. PO PRN (12:37)
[2019-01-28] MEDS: LACTOBACILLUS RHAMNOSUS GG 1 CAPSULE. PO SCH ×2 (12:37→21:00)
[2019-01-28] MEDS: CLOPIDOGREL BISULFATE 75 MG TABLET PO SCH (12:38)
[2019-01-28] MEDS: CARVEDILOL 6.25 MG TABLET. PO SCH ×2 (12:38→17:36)
[2019-01-28] MEDS: FOLIC/VIT B COMP W-C (RENAL) TABLET. PO SCH (12:38)
[2019-01-28] MEDS: SERTRALINE 50 MG TABLET. PO SCH (12:39)
[2019-01-28] MEDS: PANTOPRAZOLE 40 MG TABLET.DR. PO SCH (12:39)
[2019-01-28] MEDS: LEVOTHYROXINE 50 MCG TABLET PO SCH (12:40)
[2019-01-28] MEDS: HYDROcodone/APAP 5/325MG 1 TAB TABLET PO PRN ×2 (12:40→17:35)
[2019-01-28] MEDS: fentaNYL PF VIAL 100 MCG/2 ML VIAL IVP PRN ×2 (15:00→20:00)
--- NOTE | 2019-01-28 16:09 | NUR ---
Wound Care Wound care consult for left foot DFU. Cleansed wound and applied Veraflo with cleanse foam set at 6ml NS for 5 min soak every 4 hours. Wound bed is dry slough and there are 2 small deflated blisters on 3rd toe and at base of 3rd toe just above open amp site, these areas were included with Veraflo vac dressing. No other wounds noted at this time. If patient discharged prior to vac dressing change on Monday then RN can remove vac and apply Xeroform and ABD with Kerlix to be changed every 2 days until her follow up with [facility].
--- NOTE | 2019-01-28 18:44 | NUR ---
Around lunchtime patient became very agitated, vulgar. Began cursing at nurse and kicking people out of room. Patient did not want PO pain medications, IV only. RN paged security-- who circled the unit and patient was aware of their presence. RN explained to patient that Dr. Wilhelm ordered Hydrocodone to be alternated with Fentanyl IVP-- will not order only IVP pain medications. RN spoke with patient's daughter and explained situation-- she was understanding. Patient has since apologized, mentation greatly improved. Currently sleeping. Order received from Dr. Wilhelm, Dr. Falcon [place] [facility] [place]
--- NOTE | 2019-01-28 20:10 | NUR ---
Patient transferred from ICU and report rcvd. from MAGALY Diop. Patient arrived to unit at approximately 1950 rating pain at 10/10 and requesting pain medication. Patient afebrile, on 2L NC with elevated BP and HR at this time. Patient agitated and anxious upon arrival to unit, patient encouraged to deep breath and relax, and pain meds administered. Patient orientated to room, call light within reach, and bed alarm on, will continue to monitor.
[2019-01-28] MEDS ORDERED: INSULIN LISPRO 300 UNITS/3 ML VIAL. SQ ONE (20:45)
[2019-01-28] MEDS ORDERED: LATANOPROST 0.005% OPHTH SOLUTION 2.5ML BOTTLE. OU SCH (21:00)
[2019-01-28] MEDS ORDERED: ATORVASTATIN CALCIUM 40 MG TABLET. PO SCH (21:00)
--- NOTE | 2019-01-28 23:45 | NUR ---
Patient's PRN Fentanyl dose available every four hours as needed, patient upset with this nurse not administering PRN pain medications earlier than every four hours stating, "...10 minutes don't matter, I need it now" and "...bring me my pain pill with it". This nurse explained to patient that PRN medications can only be administered if the ordered amount of time has passed between administrations, no evidence of learning noted. Despite this nurse and patient discussing the possibility that the pain pill could further upset her stomach and also be regurgitated after administration d/t patient's prior nausea and emesis episode(x1), patient still requests PO pain med and PO nausea medication with IV pain meds. Patient in bed, call light within reach, and bed alarm on, will continue to monitor.
[2019-01-29] MEDS: fentaNYL PF VIAL 100 MCG/2 ML VIAL IVP PRN ×4 (00:03→12:57)
[2019-01-29] MEDS: HYDROcodone/APAP 5/325MG 1 TAB TABLET PO PRN ×3 (00:15→15:22)
[2019-01-29 03:00] VITALS: BP 150/63
[2019-01-29 06:42] LABS: BASO # 0.1 x10^3/uL (0.0-0.2); BASO % 1 % (0-3); EOS % 0 % (0-3); HEMATOCRIT 28.2 % (36.0-47.0); HEMOGLOBIN 9.5 g/dL (12.0-15.5); LYMPH # 1.5 x10^3/uL (1.0-4.8); LYMPH % 10 % (24-48); MEAN CORPUSCULAR HEMOGLOBIN 31 pg (25-35); MEAN CORPUSCULAR HGB CONC 34 g/dL (31-37); MEAN CORPUSCULAR VOLUME 93 fL (79-100); MONO # 1.1 x10^3/uL (0.0-1.1); MONO % 8 % (0-9); NEUT # 11.5 x10^3/uL (1.8-7.7); NEUT % 81 % (31-73); PLATELET COUNT 283 x10^3/uL (140-400); RED BLOOD COUNT 3.03 x10^6/uL (3.50-5.40); RED CELL DISTRIBUTION WIDTH 21.3 % (11.5-14.5); WHITE BLOOD COUNT 14.2 x10^3/uL (4.0-11.0)
[2019-01-29 07:00] VITALS: BP 206/97
[2019-01-29 07:08] LABS: ALBUMIN 2.8 g/dL (3.4-5.0); ALBUMIN/GLOBULIN RATIO 0.7 (1.0-1.7); CREATININE 5.3 mg/dL (0.6-1.0); GFR 10.1; POTASSIUM 4.7 mmol/L (3.5-5.1); TOTAL BILIRUBIN 0.4 mg/dL (0.2-1.0); TOTAL PROTEIN 6.9 g/dL (6.4-8.2)
[2019-01-29] MEDS: IPRATRPIUM/ALBUTEROL 0.5/2.5MG 3 ML NEBU. NEB SCH (07:26)
[2019-01-29] MEDS: CLOPIDOGREL BISULFATE 75 MG TABLET PO SCH (08:10)
[2019-01-29] MEDS: LEVOTHYROXINE 50 MCG TABLET PO SCH (08:10)
[2019-01-29] MEDS: LACTOBACILLUS RHAMNOSUS GG 1 CAPSULE. PO SCH (08:11)
[2019-01-29] MEDS: PANTOPRAZOLE 40 MG TABLET.DR. PO SCH (08:11)
[2019-01-29] MEDS: amLODIPine BESYLATE 10 MG TABLET PO SCH (08:12)
[2019-01-29] MEDS: CARVEDILOL 6.25 MG TABLET. PO SCH (08:12)
[2019-01-29] MEDS: LISINOPRIL 20 MG TABLET PO SCH (08:12)
[2019-01-29] MEDS: FOLIC/VIT B COMP W-C (RENAL) TABLET. PO SCH (08:12)
[2019-01-29] MEDS: SERTRALINE 50 MG TABLET. PO SCH (08:13)
[2019-01-29] MEDS: INSULIN LISPRO 300 UNITS/3 ML VIAL. SQ SCH ×2 (08:25→12:00)
[2019-01-29] MEDS ORDERED: IV NORMAL SALINE 1000ML BAG 1,000 ML IV PRN ×2 (08:41)
[2019-01-29] MEDS ORDERED: DIALYSIS PATIENT. MC PRN ×2 (08:45)
[2019-01-29] MEDS ORDERED: ALBUMIN HUMAN 25% 200 ML IV PRN (08:45)
[2019-01-29] MEDS: hydrALAZINE 25 MG TABLET PO SCH ×2 (09:00→14:00)
[2019-01-29] MEDS ORDERED: CARVEDILOL 6.25 MG TABLET. PO SCH (09:00)
[2019-01-29] MEDS: ACETAMINOPHEN 325 MG TABLET. PO PRN (10:19)
--- NOTE | 2019-01-29 10:21 | PDOC ---
Dialysis Progress Note Dialysis Note Dialysis Note Seen on Hemodialysis, tolerating treatment Okay for now Vitals on Hemodialysis General Appearance: Awake: Alert Oriented x 1-2 Neck: No JVD or JVP Chest: CTA Loy Heart: S1 S2 Abdomen - Soft NTND Extremities - No Edema ESRD: Dialysis as below F 180 NR 3.0 Hrs 3 K 2.5 Ca 140 Na 35 HC03 Qb 350 + Qd 500+ Heparin 0 Units Uf 2-3 Kgs or to dry weight as tolerated May give 25-50 gms of 25% Albumin if needed to maintain Hemodynamic stability Treatment plan reviewed and discussed with securities sales associate Vitals Vital Signs Vital Signs Date Time Temp Pulse Resp B/P (MAP) Pulse Ox O2 Delivery O2 Flow Rate FiO2 01/29/19 08:39 Room Air 01/29/19 08:12 99 206/97 01/29/19 07:28 90 3.0 01/29/19 07:16 18 01/29/19 07:00 98.0 98.0 Labs Last Labs Laboratory Tests Test 01/27/19 23:30 01/27/19 23:37 01/28/19 12:34 01/28/19 17:37 O2 Saturation 79 % (92-99) Arterial Blood pH 7.40 (7.35-7.45) Arterial Blood pCO2 at Patient Temp 49 mmHg (35-46) Arterial Blood pO2 at Patient Temp 46 mmHg (75-108) Arterial Blood HCO3 30 mmol/L (21-28) Arterial Blood Base Excess 4 mmol/L (-3-3) FiO2 100 White Blood Count 13.3 x10^3/uL (4.0-11.0) Red Blood Count 3.81 x10^6/uL (3.50-5.40) Hemoglobin 11.7 g/dL (12.0-15.5) Hematocrit 36.2 % (36.0-47.0) Mean Corpuscular Volume 95 fL (79-100) Mean Corpuscular Hemoglobin 31 pg (25-35) Mean Corpuscular Hemoglobin Concent 32 g/dL (31-37) Red Cell Distribution Width 22.1 % (11.5-14.5) Platelet Count 387 x10^3/uL (140-400) Neutrophils (%) (Auto) 69 % (31-73) Lymphocytes (%) (Auto) 23 % (24-48) Monocytes (%) (Auto) 6 % (0-9) Eosinophils (%) (Auto) 1 % (0-3) Basophils (%) (Auto) 1 % (0-3) Neutrophils # (Auto) 9.2 x10^3/uL (1.8-7.7) Lymphocytes # (Auto) 3.1 x10^3/uL (1.0-4.8) Monocytes # (Auto) 0.8 x10^3/uL (0.0-1.1) Eosinophils # (Auto) 0.1 x10^3/uL (0.0-0.7) Basophils # (Auto) 0.1 x10^3/uL (0.0-0.2) Platelet Estimate Adequate (ADEQUATE) Polychromasia Slight Hypochromasia Slight Anisocytosis Mod Sodium Level 141 mmol/L (136-145) Potassium Level 4.9 mmol/L (3.5-5.1) Chloride Level 102 mmol/L (98-107) Carbon Dioxide Level 30 mmol/L (21-32) Anion Gap 9 (6-14) Blood Urea Nitrogen 51 mg/dL (7-20) Creatinine 6.6 mg/dL (0.6-1.0) Estimated GFR (Cockcroft-Gault) 7.9 BUN/Creatinine Ratio 8 (6-20) Glucose Level 179 mg/dL (70-99) Calcium Level 9.4 mg/dL (8.5-10.1) Total Bilirubin 0.4 mg/dL (0.2-1.0) Aspartate Amino Transf (AST/SGOT) 39 U/L (15-37) Alanine Aminotransferase (ALT/SGPT) 57 U/L (14-59) Alkaline Phosphatase 106 U/L (46-116) UJ-Dgk-H-Type Natriuretic Peptide > 47189 pg/mL (0-124) Total Protein 8.2 g/dL (6.4-8.2) Albumin 3.3 g/dL (3.4-5.0) Albumin/Globulin Ratio 0.7 (1.0-1.7) Glucose (Fingerstick) 195 mg/dL (70-99) 336 mg/dL (70-99) Test 01/28/19 20:07 01/29/19 05:35 01/29/19 07:41 Glucose (Fingerstick) 349 mg/dL (70-99) 184 mg/dL (70-99) White Blood Count 14.2 x10^3/uL (4.0-11.0) Red Blood Count 3.03 x10^6/uL (3.50-5.40) Hemoglobin 9.5 g/dL (12.0-15.5) Hematocrit 28.2 % (36.0-47.0) Mean Corpuscular Volume 93 fL (79-100) Mean Corpuscular Hemoglobin 31 pg (25-35) Mean Corpuscular Hemoglobin Concent 34 g/dL (31-37) Red Cell Distribution Width 21.3 % (11.5-14.5) Platelet Count 283 x10^3/uL (140-400) Neutrophils (%) (Auto) 81 % (31-73) Lymphocytes (%) (Auto) 10 % (24-48) Monocytes (%) (Auto) 8 % (0-9) Eosinophils (%) (Auto) 0 % (0-3) Basophils (%) (Auto) 1 % (0-3) Neutrophils # (Auto) 11.5 x10^3/uL (1.8-7.7) Lymphocytes # (Auto) 1.5 x10^3/uL (1.0-4.8) Monocytes # (Auto) 1.1 x10^3/uL (0.0-1.1) Eosinophils # (Auto) 0.0 x10^3/uL (0.0-0.7) Basophils # (Auto) 0.1 x10^3/uL (0.0-0.2) Sodium Level 143 mmol/L (136-145) Potassium Level 4.7 mmol/L (3.5-5.1) Chloride Level 98 mmol/L (98-107) Carbon Dioxide Level 35 mmol/L (21-32) Anion Gap 10 (6-14) Blood Urea Nitrogen 55 mg/dL (7-20) Creatinine 5.3 mg/dL (0.6-1.0) Estimated GFR (Cockcroft-Gault) 10.1 BUN/Creatinine Ratio 10 (6-20) Glucose Level 210 mg/dL (70-99) Calcium Level 9.0 mg/dL (8.5-10.1) Total Bilirubin 0.4 mg/dL (0.2-1.0) Aspartate Amino Transf (AST/SGOT) 24 U/L (15-37) Alanine Aminotransferase (ALT/SGPT) 39 U/L (14-59) Alkaline Phosphatase 83 U/L (46-116) Total Protein 6.9 g/dL (6.4-8.2) Albumin 2.8 g/dL (3.4-5.0) Albumin/Globulin Ratio 0.7 (1.0-1.7) Laboratory Tests Test 01/28/19 12:34 01/28/19 17:37 01/28/19 20:07 01/29/19 05:35 Glucose (Fingerstick) 195 mg/dL (70-99) 336 mg/dL (70-99) 349 mg/dL (70-99) White Blood Count 14.2 x10^3/uL (4.0-11.0) Red Blood Count 3.03 x10^6/uL (3.50-5.40) Hemoglobin 9.5 g/dL (12.0-15.5) Hematocrit 28.2 % (36.0-47.0) Mean Corpuscular Volume 93 fL (79-100) Mean Corpuscular Hemoglobin 31 pg (25-35) Mean Corpuscular Hemoglobin Concent 34 g/dL (31-37) Red Cell Distribution Width 21.3 % (11.5-14.5) Platelet Count 283 x10^3/uL (140-400) Neutrophils (%) (Auto) 81 % (31-73) Lymphocytes (%) (Auto) 10 % (24-48) Monocytes (%) (Auto) 8 % (0-9) Eosinophils (%) (Auto) 0 % (0-3) Basophils (%) (Auto) 1 % (0-3) Neutrophils # (Auto) 11.5 x10^3/uL (1.8-7.7) Lymphocytes # (Auto) 1.5 x10^3/uL (1.0-4.8) Monocytes # (Auto) 1.1 x10^3/uL (0.0-1.1) Eosinophils # (Auto) 0.0 x10^3/uL (0.0-0.7) Basophils # (Auto) 0.1 x10^3/uL (0.0-0.2) Sodium Level 143 mmol/L (136-145) Potassium Level 4.7 mmol/L (3.5-5.1) Chloride Level 98 mmol/L (98-107) Carbon Dioxide Level 35 mmol/L (21-32) Anion Gap 10 (6-14) Blood Urea Nitrogen 55 mg/dL (7-20) Creatinine 5.3 mg/dL (0.6-1.0) Estimated GFR (Cockcroft-Gault) 10.1 BUN/Creatinine Ratio 10 (6-20) Glucose Level 210 mg/dL (70-99) Calcium Level 9.0 mg/dL (8.5-10.1) Total Bilirubin 0.4 mg/dL (0.2-1.0) Aspartate Amino Transf (AST/SGOT) 24 U/L (15-37) Alanine Aminotransferase (ALT/SGPT) 39 U/L (14-59) Alkaline Phosphatase 83 U/L (46-116) Total Protein 6.9 g/dL (6.4-8.2) Albumin 2.8 g/dL (3.4-5.0) Albumin/Globulin Ratio 0.7 (1.0-1.7) Test 01/29/19 07:41 Glucose (Fingerstick) 184 mg/dL (70-99) Assessment Assessment Problems Medical Problems: (1) Acute respiratory failure with hypoxia Status: Acute (2) ESRD on hemodialysis Status: Chronic (3) Hypertensive emergency Status: Acute (4) Pain of amputation stump of right lower extremity Status: Acute Plan Plan of Care Problems Medical Problems: (1) Acute respiratory failure with hypoxia Status: Acute (2) ESRD on hemodialysis Status: Chronic (3) Hypertensive emergency Status: Acute (4) Pain of amputation stump of right lower extremity Status: Acute PAOLA YATES MD Jan 29, 2019 10:21
[2019-01-29] MEDS ORDERED: diphenhydrAMINE 50 MG/ML VIAL IVP ONE (10:30)
[2019-01-29] MEDS ORDERED: CARV6.2511 PO (11:13)
[2019-01-29] MEDS ORDERED: HYDR-2868 PO (11:13)
[2019-01-29] MEDS ORDERED: HYDR-2761 PO (11:13)
--- NOTE | 2019-01-29 11:26 | PDOC3 ---
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 - s local wound care Dyslipidemia on meds PAD Final Diagnosis Problems Medical Problems: (1) Acute respiratory failure with hypoxia Status: Acute (2) ESRD on hemodialysis Status: Chronic (3) Hypertensive emergency Status: Acute (4) Pain of amputation stump of right lower extremity Status: Acute Brief Hospital Course Allergies Allergies Coded Allergies Type Severity Reaction Last Updated Verified No Known Drug Allergies 12/20/18 No Vital Signs Vital Signs Date Time Temp Pulse Resp B/P (MAP) Pulse Ox O2 Delivery O2 Flow Rate FiO2 01/29/19 08:39 Room Air 01/29/19 08:12 99 206/97 01/29/19 07:28 90 3.0 01/29/19 07:16 18 01/29/19 07:00 98.0 98.0 Lab Results Laboratory Tests Test 01/27/19 23:30 01/27/19 23:37 01/28/19 12:34 01/28/19 17:37 O2 Saturation 79 % (92-99) Arterial Blood pH 7.40 (7.35-7.45) Arterial Blood pCO2 at Patient Temp 49 mmHg (35-46) Arterial Blood pO2 at Patient Temp 46 mmHg (75-108) Arterial Blood HCO3 30 mmol/L (21-28) Arterial Blood Base Excess 4 mmol/L (-3-3) FiO2 100 White Blood Count 13.3 x10^3/uL (4.0-11.0) Red Blood Count 3.81 x10^6/uL (3.50-5.40) Hemoglobin 11.7 g/dL (12.0-15.5) Hematocrit 36.2 % (36.0-47.0) Mean Corpuscular Volume 95 fL (79-100) Mean Corpuscular Hemoglobin 31 pg (25-35) Mean Corpuscular Hemoglobin Concent 32 g/dL (31-37) Red Cell Distribution Width 22.1 % (11.5-14.5) Platelet Count 387 x10^3/uL (140-400) Neutrophils (%) (Auto) 69 % (31-73) Lymphocytes (%) (Auto) 23 % (24-48) Monocytes (%) (Auto) 6 % (0-9) Eosinophils (%) (Auto) 1 % (0-3) Basophils (%) (Auto) 1 % (0-3) Neutrophils # (Auto) 9.2 x10^3/uL (1.8-7.7) Lymphocytes # (Auto) 3.1 x10^3/uL (1.0-4.8) Monocytes # (Auto) 0.8 x10^3/uL (0.0-1.1) Eosinophils # (Auto) 0.1 x10^3/uL (0.0-0.7) Basophils # (Auto) 0.1 x10^3/uL (0.0-0.2) Platelet Estimate Adequate (ADEQUATE) Polychromasia Slight Hypochromasia Slight Anisocytosis Mod Sodium Level 141 mmol/L (136-145) Potassium Level 4.9 mmol/L (3.5-5.1) Chloride Level 102 mmol/L (98-107) Carbon Dioxide Level 30 mmol/L (21-32) Anion Gap 9 (6-14) Blood Urea Nitrogen 51 mg/dL (7-20) Creatinine 6.6 mg/dL (0.6-1.0) Estimated GFR (Cockcroft-Gault) 7.9 BUN/Creatinine Ratio 8 (6-20) Glucose Level 179 mg/dL (70-99) Calcium Level 9.4 mg/dL (8.5-10.1) Total Bilirubin 0.4 mg/dL (0.2-1.0) Aspartate Amino Transf (AST/SGOT) 39 U/L (15-37) Alanine Aminotransferase (ALT/SGPT) 57 U/L (14-59) Alkaline Phosphatase 106 U/L (46-116) ZW-Nfg-I-Type Natriuretic Peptide > 98897 pg/mL (0-124) Total Protein 8.2 g/dL (6.4-8.2) Albumin 3.3 g/dL (3.4-5.0) Albumin/Globulin Ratio 0.7 (1.0-1.7) Glucose (Fingerstick) 195 mg/dL (70-99) 336 mg/dL (70-99) Test 01/28/19 20:07 01/29/19 05:35 01/29/19 07:41 Glucose (Fingerstick) 349 mg/dL (70-99) 184 mg/dL (70-99) White Blood Count 14.2 x10^3/uL (4.0-11.0) Red Blood Count 3.03 x10^6/uL (3.50-5.40) Hemoglobin 9.5 g/dL (12.0-15.5) Hematocrit 28.2 % (36.0-47.0) Mean Corpuscular Volume 93 fL (79-100) Mean Corpuscular Hemoglobin 31 pg (25-35) Mean Corpuscular Hemoglobin Concent 34 g/dL (31-37) Red Cell Distribution Width 21.3 % (11.5-14.5) Platelet Count 283 x10^3/uL (140-400) Neutrophils (%) (Auto) 81 % (31-73) Lymphocytes (%) (Auto) 10 % (24-48) Monocytes (%) (Auto) 8 % (0-9) Eosinophils (%) (Auto) 0 % (0-3) Basophils (%) (Auto) 1 % (0-3) Neutrophils # (Auto) 11.5 x10^3/uL (1.8-7.7) Lymphocytes # (Auto) 1.5 x10^3/uL (1.0-4.8) Monocytes # (Auto) 1.1 x10^3/uL (0.0-1.1) Eosinophils # (Auto) 0.0 x10^3/uL (0.0-0.7) Basophils # (Auto) 0.1 x10^3/uL (0.0-0.2) Sodium Level 143 mmol/L (136-145) Potassium Level 4.7 mmol/L (3.5-5.1) Chloride Level 98 mmol/L (98-107) Carbon Dioxide Level 35 mmol/L (21-32) Anion Gap 10 (6-14) Blood Urea Nitrogen 55 mg/dL (7-20) Creatinine 5.3 mg/dL (0.6-1.0) Estimated GFR (Cockcroft-Gault) 10.1 BUN/Creatinine Ratio 10 (6-20) Glucose Level 210 mg/dL (70-99) Calcium Level 9.0 mg/dL (8.5-10.1) Total Bilirubin 0.4 mg/dL (0.2-1.0) Aspartate Amino Transf (AST/SGOT) 24 U/L (15-37) Alanine Aminotransferase (ALT/SGPT) 39 U/L (14-59) Alkaline Phosphatase 83 U/L (46-116) Total Protein 6.9 g/dL (6.4-8.2) Albumin 2.8 g/dL (3.4-5.0) Albumin/Globulin Ratio 0.7 (1.0-1.7) Laboratory Tests Test 01/28/19 12:34 01/28/19 17:37 01/28/19 20:07 01/29/19 05:35 Glucose (Fingerstick) 195 mg/dL (70-99) 336 mg/dL (70-99) 349 mg/dL (70-99) White Blood Count 14.2 x10^3/uL (4.0-11.0) Red Blood Count 3.03 x10^6/uL (3.50-5.40) Hemoglobin 9.5 g/dL (12.0-15.5) Hematocrit 28.2 % (36.0-47.0) Mean Corpuscular Volume 93 fL (79-100) Mean Corpuscular Hemoglobin 31 pg (25-35) Mean Corpuscular Hemoglobin Concent 34 g/dL (31-37) Red Cell Distribution Width 21.3 % (11.5-14.5) Platelet Count 283 x10^3/uL (140-400) Neutrophils (%) (Auto) 81 % (31-73) Lymphocytes (%) (Auto) 10 % (24-48) Monocytes (%) (Auto) 8 % (0-9) Eosinophils (%) (Auto) 0 % (0-3) Basophils (%) (Auto) 1 % (0-3) Neutrophils # (Auto) 11.5 x10^3/uL (1.8-7.7) Lymphocytes # (Auto) 1.5 x10^3/uL (1.0-4.8) Monocytes # (Auto) 1.1 x10^3/uL (0.0-1.1) Eosinophils # (Auto) 0.0 x10^3/uL (0.0-0.7) Basophils # (Auto) 0.1 x10^3/uL (0.0-0.2) Sodium Level 143 mmol/L (136-145) Potassium Level 4.7 mmol/L (3.5-5.1) Chloride Level 98 mmol/L (98-107) Carbon Dioxide Level 35 mmol/L (21-32) Anion Gap 10 (6-14) Blood Urea Nitrogen 55 mg/dL (7-20) Creatinine 5.3 mg/dL (0.6-1.0) Estimated GFR (Cockcroft-Gault) 10.1 BUN/Creatinine Ratio 10 (6-20) Glucose Level 210 mg/dL (70-99) Calcium Level 9.0 mg/dL (8.5-10.1) Total Bilirubin 0.4 mg/dL (0.2-1.0) Aspartate Amino Transf (AST/SGOT) 24 U/L (15-37) Alanine Aminotransferase (ALT/SGPT) 39 U/L (14-59) Alkaline Phosphatase 83 U/L (46-116) Total Protein 6.9 g/dL (6.4-8.2) Albumin 2.8 g/dL (3.4-5.0) Albumin/Globulin Ratio 0.7 (1.0-1.7) Test 01/29/19 07:41 Glucose (Fingerstick) 184 mg/dL (70-99) Brief Hospital Course Ms. Smith is a 58 old AA female, katya zepeda, lives IV narcs, admitted this time for respi fialure needing NIPPV> THis SOA this time was from fluid overload and accel HTN, SHe is HD. SHe may not like to take her meds depending on her mood. SHe has been fired by many different home health agencies bec of non compliance and uncooperativity,.NOw she likes to go home, We will send home independent cont local wound care, HIgh change readmission, PCP now is actually Dr Tomas MEdically speaking, BP high, I had to up Coreg to 12,5 (tachy side) BID and start hydralazine 25 TID. I write rx, ANd of course, her pain med Dw palliative - she has seen pt 4x, DNR< not ready for hospice dw PAt and RN COnsults: renal, pulmo Proc; HD fluid off Discharge Information Condition at Discharge: Improved, Stable Disposition/Orders: D/C to Home Scheduled Amlodipine Besylate (Amlodipine Besylate) 5 Mg Tablet, 10 MG PO DAILY for blood pressure, (Reported) Entered as Reported by: JENNIE SMITH on 12/05/17809 Last Action: Continued on 01/28/19840 by FELI SHAH MD Atorvastatin Calcium (Atorvastatin Calcium) 40 Mg Tablet, 40 MG PO HS for cholesterol, (Reported) Entered as Reported by: JENNIE SMITH on 12/05/17809 Last Action: Continued on 01/28/19840 by FELI SHAH MD Carvedilol (Carvedilol ) 6.25 Mg Tablet, 12.5 MG PO BIDWMEALS for htn, #60 Prescribed by: PRABHAKAR MOSQUERA on 01/29/19 1113 Clonidine (Clonidine Tts-2 ) 1 Each Patch.tdwk, 1 PATCH TD WEEKLY for blood pressure, (Reported) Entered as Reported by: VIKI LAI on 03/22/18 1727 Last Action: Continued on 01/28/19840 by FELI SHAH MD Clopidogrel Bisulfate (Clopidogrel) 75 Mg Tablet, 75 MG PO DAILYWBKFT for pvd for 30 Days, #30 Prescribed by: SANGEETHA MUELLER MD on 12/26/18 1247 Last Action: Continued on 01/28/19840 by FELI SHAH MD Folic Acid/Vitamin B Comp W-C (Pinky-Shreya Tablet) 0.8 Mg Tablet, 1 TAB PO DAILY for esrd, #30 Prescribed by: PRABHAKAR MOSQUERA on 12/10/18 1041 Last Action: Continued on 01/28/19840 by FELI SHAH MD Hydralazine Hcl (Hydralazine Hcl) 25 Mg Tablet, 25 MG PO TID for htn, #10 Prescribed by: PRABHAKAR MOSQUERA on 01/29/19 1113 Insulin Lispro (Humalog) 100 Unit/1 Ml Insuln.pen, 0 UNITS SQ TIDWMEALS for glucose for 28 Days, #3 Prescribed by: SANGEETHA MUELLER MD on 12/26/18 124 Last Action: Continued on 01/28/19840 by FELI SHAH MD Lactobacillus Rhamnosus Gg (Culturelle) 1 Each Cap.sprink, 1 CAP PO BID for supplement for 30 Days, #60 Prescribed by: SANGEETHA MUELLER MD on 12/26/181246 Last Action: Continued on 01/28/19840 by FELI SHAH MD Latanoprost (Latanoprost) 2.5 Ml Drops, 1 DROP EACHEYE HS, (Reported) Entered as Reported by: ATTILA HAMMOND on 09/24/17 1649 Last Action: Continued on 01/28/19840 by FELI SHAH MD Levothyroxine Sodium (Levothyroxine Sodium) 50 Mcg Tablet, 1 TAB PO DAILY for thyroid, #30 Ref 5 (Reported) Entered as Reported by: VIKI LAI on 03/22/18 1727 Last Action: Continued on 01/28/19840 by FELI SHAH MD Lipase/Protease/Amylase (Creon 6,000 Units Capsule) 1 Each Capsule., 1 TAB PO TID for digestion, (Reported) Entered as Reported by: CAROL CHAN on 04/23/18 1236 Last Action: Converted on 01/28/19840 by FELI SHAH MD Lisinopril (Lisinopril) 20 Mg Tablet, 20 MG PO DAILY for FOR HYPERTENSION, Ref 0 (Reported) Entered as Reported by: LAUREN REAVES on 05/27/18748 Last Action: Continued on 01/28/19840 by FELI SHAH MD Ranitidine Hcl (Zantac) 300 Mg Tablet, 1 TAB PO QHS for reflux, #90 Ref 3 Prescribed by: DANIELA ALMAZAN D.O. on 08/29/182155 Sertraline Hcl (Zoloft) 50 Mg Tablet, 50 MG PO DAILY for ANTI-DEPRESSANT, Ref 0 (Reported) Entered as Reported by: LAUREN REAVES on 05/27/18748 Last Action: Continued on 01/28/19840 by FELI SHAH MD [Pantoprazole] 40 MG TABLET., 40 MG PO DAILYAC for GERD for 30 Days, #30 Ref 2 Prescribed by: FELI SHAH MD on 03/07/18 1359 Last Action: Converted on 01/28/19840 by FELI SHAH MD Scheduled PRN Acetaminophen (Tylenol) 325 Mg Capsule, 650 MG PO Q6-8HRS PRN for PAIN, #20 Prescribed by: KIMBERLY DONOHUE MD on 11/14/18 2112 Last Action: Converted on 01/28/19840 by FELI SHAH MD Albuterol Sulfate (Proair Hfa) 8.5 Gm Hfa.aer.ad, 2 PUFF INH BID PRN for SHORTNESS OF BREATH, (Reported) Entered as Reported by: VIKI LAI on 03/22/18 1727 Last Action: Continued on 01/28/19840 by FELI SHAH MD Hydrocodone Bit/Acetaminophen (Hydrocodone-Apap 5-325 ) 1 Tab Tablet, 1 TAB PO PRN Q6HRS PRN for MODERATE PAIN, #30 Prescribed by: PRABHAKAR MOSQUERA on 01/29/19 1113 Ondansetron (Ondansetron Odt) 4 Mg Tab.rapdis, 4 MG PO PRN Q6HRS PRN for NAUSEA/VOMITING 1ST CHOICE for 28 Days, #30 Prescribed by: SANGEETHA MUELLER MD on 12/26/18 1247 Last Action: Continued on 01/28/19840 by FELI SHAH MD Prochlorperazine Maleate (Compazine) 5 Mg Tablet, 5 MG PO PRN TID PRN for NAUSEA for 10 Days, #30 Prescribed by: FELI SHAH MD on 08/26/18 1158 Last Action: Continued on 01/28/19840 by FELI SHAH MD Discontinued Medications Carvedilol (Coreg ) 6.25 Mg Tablet, 6.25 MG PO BIDWMEALS for CARDIAC, (Reported) Entered as Reported by: VAL MONTANA on 05/08/18 1437 Last Action: Continued on 01/28/19840 by FELI SHAH MD Cefepime Hcl (Maxipime) 1 Gm Vial, 1 GM IJ UD for foot wound, (Reported) Entered as Reported by: Moody Gaffney on 01/23/191535 Last Action: Reviewed on 01/29/19847 by PRABHAKAR MOSQUERA Cefepime Hcl (Maxipime) 2 Gm Vial, 2 GM IJ UD for foot wound, (Reported) Entered as Reported by: Moody Gaffney on 01/23/191535 Last Action: Reviewed on 01/29/19847 by PRABHAKAR MOSQUERA Vancomycin/0.9 % Sod Chloride (Vanco 500 mg/100 ml-0.9% NaCl) 500 Mg/100 Ml Froz.piggy, 500 MG IV MWF with dialysis for foot wound for 14 Days, (Reported) Entered as Reported by: Moody Gaffney on 01/23/19 1519 [Cefepime Hcl] 1 GM VIAL, 1 GM IVP Q24H for infection for 28 Days, #28 Prescribed by: SANGEETHA MUELLER MD on 12/26/18 1247 PRABHAKAR MOSQUERA MD Jan 29, 2019 11:26
--- NOTE | 2019-01-29 11:41 | PDOC ---
PULMONARY PROGRESS NOTES Subjective REFUSES BIPAP AT TIMES NOR MORE SOA Vitals Vital Signs Date Time Temp Pulse Resp B/P (MAP) Pulse Ox O2 Delivery O2 Flow Rate FiO2 01/29/19 08:39 Room Air 01/29/19 08:12 99 206/97 01/29/19 07:28 90 3.0 01/29/19 07:16 18 01/29/19 07:00 98.0 98.0 General: Alert, No acute distress Lungs: Clear Cardiovascular: S1, S2 Abdomen: Soft Neuro Exam: Alert Extremities: No Edema, Other Skin: Warm Labs Laboratory Tests Test 01/27/19 23:30 01/27/19 23:37 01/28/19 12:34 01/28/19 17:37 O2 Saturation 79 % (92-99) Arterial Blood pH 7.40 (7.35-7.45) Arterial Blood pCO2 at Patient Temp 49 mmHg (35-46) Arterial Blood pO2 at Patient Temp 46 mmHg (75-108) Arterial Blood HCO3 30 mmol/L (21-28) Arterial Blood Base Excess 4 mmol/L (-3-3) FiO2 100 White Blood Count 13.3 x10^3/uL (4.0-11.0) Red Blood Count 3.81 x10^6/uL (3.50-5.40) Hemoglobin 11.7 g/dL (12.0-15.5) Hematocrit 36.2 % (36.0-47.0) Mean Corpuscular Volume 95 fL (79-100) Mean Corpuscular Hemoglobin 31 pg (25-35) Mean Corpuscular Hemoglobin Concent 32 g/dL (31-37) Red Cell Distribution Width 22.1 % (11.5-14.5) Platelet Count 387 x10^3/uL (140-400) Neutrophils (%) (Auto) 69 % (31-73) Lymphocytes (%) (Auto) 23 % (24-48) Monocytes (%) (Auto) 6 % (0-9) Eosinophils (%) (Auto) 1 % (0-3) Basophils (%) (Auto) 1 % (0-3) Neutrophils # (Auto) 9.2 x10^3/uL (1.8-7.7) Lymphocytes # (Auto) 3.1 x10^3/uL (1.0-4.8) Monocytes # (Auto) 0.8 x10^3/uL (0.0-1.1) Eosinophils # (Auto) 0.1 x10^3/uL (0.0-0.7) Basophils # (Auto) 0.1 x10^3/uL (0.0-0.2) Platelet Estimate Adequate (ADEQUATE) Polychromasia Slight Hypochromasia Slight Anisocytosis Mod Sodium Level 141 mmol/L (136-145) Potassium Level 4.9 mmol/L (3.5-5.1) Chloride Level 102 mmol/L (98-107) Carbon Dioxide Level 30 mmol/L (21-32) Anion Gap 9 (6-14) Blood Urea Nitrogen 51 mg/dL (7-20) Creatinine 6.6 mg/dL (0.6-1.0) Estimated GFR (Cockcroft-Gault) 7.9 BUN/Creatinine Ratio 8 (6-20) Glucose Level 179 mg/dL (70-99) Calcium Level 9.4 mg/dL (8.5-10.1) Total Bilirubin 0.4 mg/dL (0.2-1.0) Aspartate Amino Transf (AST/SGOT) 39 U/L (15-37) Alanine Aminotransferase (ALT/SGPT) 57 U/L (14-59) Alkaline Phosphatase 106 U/L (46-116) CW-Pbe-A-Type Natriuretic Peptide > 56793 pg/mL (0-124) Total Protein 8.2 g/dL (6.4-8.2) Albumin 3.3 g/dL (3.4-5.0) Albumin/Globulin Ratio 0.7 (1.0-1.7) Glucose (Fingerstick) 195 mg/dL (70-99) 336 mg/dL (70-99) Test 01/28/19 20:07 01/29/19 05:35 01/29/19 07:41 Glucose (Fingerstick) 349 mg/dL (70-99) 184 mg/dL (70-99) White Blood Count 14.2 x10^3/uL (4.0-11.0) Red Blood Count 3.03 x10^6/uL (3.50-5.40) Hemoglobin 9.5 g/dL (12.0-15.5) Hematocrit 28.2 % (36.0-47.0) Mean Corpuscular Volume 93 fL (79-100) Mean Corpuscular Hemoglobin 31 pg (25-35) Mean Corpuscular Hemoglobin Concent 34 g/dL (31-37) Red Cell Distribution Width 21.3 % (11.5-14.5) Platelet Count 283 x10^3/uL (140-400) Neutrophils (%) (Auto) 81 % (31-73) Lymphocytes (%) (Auto) 10 % (24-48) Monocytes (%) (Auto) 8 % (0-9) Eosinophils (%) (Auto) 0 % (0-3) Basophils (%) (Auto) 1 % (0-3) Neutrophils # (Auto) 11.5 x10^3/uL (1.8-7.7) Lymphocytes # (Auto) 1.5 x10^3/uL (1.0-4.8) Monocytes # (Auto) 1.1 x10^3/uL (0.0-1.1) Eosinophils # (Auto) 0.0 x10^3/uL (0.0-0.7) Basophils # (Auto) 0.1 x10^3/uL (0.0-0.2) Sodium Level 143 mmol/L (136-145) Potassium Level 4.7 mmol/L (3.5-5.1) Chloride Level 98 mmol/L (98-107) Carbon Dioxide Level 35 mmol/L (21-32) Anion Gap 10 (6-14) Blood Urea Nitrogen 55 mg/dL (7-20) Creatinine 5.3 mg/dL (0.6-1.0) Estimated GFR (Cockcroft-Gault) 10.1 BUN/Creatinine Ratio 10 (6-20) Glucose Level 210 mg/dL (70-99) Calcium Level 9.0 mg/dL (8.5-10.1) Total Bilirubin 0.4 mg/dL (0.2-1.0) Aspartate Amino Transf (AST/SGOT) 24 U/L (15-37) Alanine Aminotransferase (ALT/SGPT) 39 U/L (14-59) Alkaline Phosphatase 83 U/L (46-116) Total Protein 6.9 g/dL (6.4-8.2) Albumin 2.8 g/dL (3.4-5.0) Albumin/Globulin Ratio 0.7 (1.0-1.7) Laboratory Tests Test 01/28/19 12:34 01/28/19 17:37 01/28/19 20:07 01/29/19 05:35 Glucose (Fingerstick) 195 mg/dL (70-99) 336 mg/dL (70-99) 349 mg/dL (70-99) White Blood Count 14.2 x10^3/uL (4.0-11.0) Red Blood Count 3.03 x10^6/uL (3.50-5.40) Hemoglobin 9.5 g/dL (12.0-15.5) Hematocrit 28.2 % (36.0-47.0) Mean Corpuscular Volume 93 fL (79-100) Mean Corpuscular Hemoglobin 31 pg (25-35) Mean Corpuscular Hemoglobin Concent 34 g/dL (31-37) Red Cell Distribution Width 21.3 % (11.5-14.5) Platelet Count 283 x10^3/uL (140-400) Neutrophils (%) (Auto) 81 % (31-73) Lymphocytes (%) (Auto) 10 % (24-48) Monocytes (%) (Auto) 8 % (0-9) Eosinophils (%) (Auto) 0 % (0-3) Basophils (%) (Auto) 1 % (0-3) Neutrophils # (Auto) 11.5 x10^3/uL (1.8-7.7) Lymphocytes # (Auto) 1.5 x10^3/uL (1.0-4.8) Monocytes # (Auto) 1.1 x10^3/uL (0.0-1.1) Eosinophils # (Auto) 0.0 x10^3/uL (0.0-0.7) Basophils # (Auto) 0.1 x10^3/uL (0.0-0.2) Sodium Level 143 mmol/L (136-145) Potassium Level 4.7 mmol/L (3.5-5.1) Chloride Level 98 mmol/L (98-107) Carbon Dioxide Level 35 mmol/L (21-32) Anion Gap 10 (6-14) Blood Urea Nitrogen 55 mg/dL (7-20) Creatinine 5.3 mg/dL (0.6-1.0) Estimated GFR (Cockcroft-Gault) 10.1 BUN/Creatinine Ratio 10 (6-20) Glucose Level 210 mg/dL (70-99) Calcium Level 9.0 mg/dL (8.5-10.1) Total Bilirubin 0.4 mg/dL (0.2-1.0) Aspartate Amino Transf (AST/SGOT) 24 U/L (15-37) Alanine Aminotransferase (ALT/SGPT) 39 U/L (14-59) Alkaline Phosphatase 83 U/L (46-116) Total Protein 6.9 g/dL (6.4-8.2) Albumin 2.8 g/dL (3.4-5.0) Albumin/Globulin Ratio 0.7 (1.0-1.7) Test 01/29/19 07:41 Glucose (Fingerstick) 184 mg/dL (70-99) Medications Active Scripts Medications Dose Route/Sig Max Daily Dose Days Date Category Maxipime (Cefepime Hcl) 2 Gm Vial 2 Gm IJ UD 01/23/19 Reported Maxipime (Cefepime Hcl) 1 Gm Vial 1 Gm IJ UD 01/23/19 Reported Vanco 500 mg/100 ml-0.9% NaCl (Vancomycin/0.9 % Sod Chloride) 500 Mg/100 Ml Froz.piggy 500 Mg IV MWF WITH DIALYSIS 14 01/23/19 Reported Humalog (Insulin Lispro) 100 Unit/1 Ml Insuln.pen 0 Units SQ TIDWMEALS 28 12/26/18 Rx Culturelle (Lactobacillus Rhamnosus Gg) 1 Each Cap.sprink 1 Cap PO BID 30 12/26/18 Rx Ondansetron Odt (Ondansetron) 4 Mg Tab.rapdis 4 Mg PO PRN Q6HRS PRN 12/26/18 Rx Clopidogrel (Clopidogrel Bisulfate) 75 Mg Tablet 75 Mg PO DAILYWBKFT 30 12/26/18 Rx [Cefepime Hcl] 1 GM Vial 1 Gm IVP Q24H 28 12/26/18 Rx Pinky-Shryea Tablet (Folic Acid/Vitamin B Comp W-C) 0.8 Mg Tablet 1 Tab PO DAILY 12/10/18 Rx Tylenol (Acetaminophen) 325 Mg Capsule 650 Mg PO Q6-8HRS PRN 11/14/18 Rx Zantac (Ranitidine Hcl) 300 Mg Tablet 1 Tab PO QHS 6/5/19 Rx Compazine (Prochlorperazine Maleate) 5 Mg Tablet 5 Mg PO PRN TID PRN 10 08/26/18 Rx Zoloft (Sertraline Hcl) 50 Mg Tablet 50 Mg PO DAILY 05/27/18 Reported Lisinopril 20 Mg Tablet 20 Mg PO DAILY 05/27/18 Reported Coreg (Carvedilol) 6.25 Mg Tablet 6.25 Mg PO BIDWMEALS 05/08/18 Reported Shante Knowles 6,000 Units Capsule (Lipase/Protease/Amylase) 1 Each Capsule.dr 1 Tab PO TID 04/23/18 Reported Proair Hfa (Albuterol Sulfate) 8.5 Gm Hfa.aer.ad 2 Puff INH BID PRN 03/22/18 Reported Levothyroxine Sodium 50 Mcg Tablet 1 Tab PO DAILY 03/22/18 Reported Clonidine Tts-2 (Clonidine) 1 Each Patch.tdwk 1 Patch TD WEEKLY 03/22/18 Reported [Pantoprazole] 40 MG Tablet.dr 40 Mg PO DAILYAC 30 03/07/18 Rx Amlodipine Besylate 5 Mg Tablet 10 Mg PO DAILY 12/05/17 Reported Atorvastatin Calcium 40 Mg Tablet 40 Mg PO HS 12/05/17 Reported Latanoprost 2.5 Ml Drops 1 Drop EACHEYE HS 09/24/17 Reported Impression . IMPRESSION: 1. Acute on chronic respiratory failure secondary to acute on chronic pulmonary edema. 2. Uncontrolled hypertension. 3. End-stage renal dialysis. The patient is noncompliant. 4. Right stump pain. 5. Acute blood loss anemia. 6. Anasarca. 7. Hypothyroidism. 8. Left fifth digit amputation. 9. Dyslipidemia. 10. Peripheral arterial disease. Plan . PRN BIPAP WILL CONTINUE THE SAME 1. We will continue support with noninvasive ventilation. 2. Negative fluid balance. 3. Repeat chest x-ray in the a.m. 4. Follow Nephrology input. RADHA FAGAN MD Jan 29, 2019 11:41
[2019-01-29] MEDS ORDERED: IPRATRPIUM/ALBUTEROL 0.5/2.5MG 3 ML NEBU. NEB SCH (12:00)
[2019-01-29 15:00] VITALS: BP 133/46
--- NOTE | 2019-01-29 16:14 | NUR ---
SW following. Discussed with RN, pt refusing care and wanting to leave. Pt left around 1600. No SW needs. Pt likely to readmit.
[2019-01-30] MEDS ORDERED: ONDA4TAB12 PO (21:53)
== END 2019-01-29 15:55 | disposition home or self-care (01) | DRG 291 ==
LOC: ER 23:07 → 1 WEST ICU 01-28 00:48 → 4 NORTH 01-28 19:47
PROVIDERS: ADMIT Internal Medicine; ATTEND Internal Medicine
PROC: 5A1D70Z Performance of Urinary Filtration, Intermittent, Less than 6 Hours Per Day (ICD-10-PCS; 2019-01-28)
PROC: 5A09357 Assistance with Respiratory Ventilation, Less than 24 Consecutive Hours, Continuous Positive Airway Pressure (ICD-10-PCS; 2019-01-28)
PROC: 5A1D70Z Performance of Urinary Filtration, Intermittent, Less than 6 Hours Per Day (ICD-10-PCS; principal; 2019-01-29)
DX: I13.2 Hypertensive heart and chronic kidney disease with heart failure and with stage 5 chronic kidney disease, or end stage renal disease (principal); J96.21 Acute and chronic respiratory failure with hypoxia; N18.6 End stage renal disease; I50.33 Acute on chronic diastolic (congestive) heart failure; I16.1 Hypertensive emergency; D62 Acute posthemorrhagic anemia; E03.9 Hypothyroidism, unspecified; E11.22 Type 2 diabetes mellitus with diabetic chronic kidney disease; E11.51 Type 2 diabetes mellitus with diabetic peripheral angiopathy without gangrene; E78.5 Hyperlipidemia, unspecified; F17.210 Nicotine dependence, cigarettes, uncomplicated; G89.29 Other chronic pain; E21.3 Hyperparathyroidism, unspecified; F41.9 Anxiety disorder, unspecified; I70.209 Unspecified atherosclerosis of native arteries of extremities, unspecified extremity; J44.9 Chronic obstructive pulmonary disease, unspecified; Z66 Do not resuscitate; Z82.49 Family history of ischemic heart disease and other diseases of the circulatory system; Z89.511 Acquired absence of right leg below knee; Z89.512 Acquired absence of left leg below knee; Z91.15 Patient's noncompliance with renal dialysis; Z91.19 Patient's noncompliance with other medical treatment and regimen; Z99.2 Dependence on renal dialysis; Z90.710 Acquired absence of both cervix and uterus
CPT/HCPCS: 36415; 36600; 71045; 80053; 82805; 82962; 83880; 85025; 93005; 94640; 94660; 94760; 96361; 96365; J1200; J1815; J2270; J2405; J2930; J3010; J3490; J7042; J7620; Q0162; Q0164; 99291-25; G0378

== ENCOUNTER 2019-01-30 20:19 | Emergency (ER) | payer OTHER ==
[~2019-01-30] VITALS: Ht 157.5 cm; Wt 52.2 kg
[~2019-01-30 20:19] MED LIST changes: +CARV6.2511 PO; +HYDR-2868 PO
[2019-01-30 21:05] VITALS: BP 184/79
[2019-01-30] MEDS ORDERED: fentaNYL PF VIAL 100 MCG/2 ML VIAL IM ONE (21:30)
[2019-01-30] MEDS ORDERED: ONDANSETRON ODT 4 MG TAB.RAPDIS. PO ONE (21:30)
[2019-01-30] MEDS ORDERED: ONDA4TAB12 PO (21:53)
--- NOTE | 2019-01-30 21:53 | PHYS DOC ---
Past Medical History Past Medical History: Diabetes-Type II, Hypertension, Renal Failure Additional Past Medical Histor: neuropathy, cataracts,CHRONIC PAIN,ESRD Past Surgical History: Hysterectomy, Other Additional Past Surgical Histo: PICC PLACEMENT, R BKA, SHUNT, toe amputation Smoking: Quit Greater Than 1 Year Alcohol Use: None Drug Use: None Adult General Chief Complaint Chief Complaint: MECHANICAL FALL HPI HPI 58-year-old female presents via EMS with report of mechanical fall from her wheelchair upon getting up to use the restroom. Patient reports she fell onto her buttocks with bruise and swelling on left side. Denies head trauma or loss of consciousness. Patient does report some nausea. Reports she attended dialysis today and frequently doesn't "feel well" after dialysis. Patient recently admitted to [facility] and discharged with pain medication (Dingess 5/325mg). Patient reports she has not taken her pain medication as her daughter has it in her car. Review of Systems Review of Systems Constitutional: Denies fever or chills Eyes: Denies redness or eye pain HENT: Denies nasal congestion or sore throat Respiratory: Denies cough or shortness of breath Cardiovascular: Denies chest pain or palpitations GI: Denies abdominal pain; reports nausea and vomiting : Denies dysuria or hematuria Musculoskeletal: Reports left sacral pain; denies joint pain Integument: Denies rash; reports contusion Neurologic: Denies headache, focal weakness or sensory changes Complete systems were reviewed and found to be within normal limits, except as documented in this note. Current Medications Current Medications Current Medications Medications (Trade) Dose Ordered Sig/Clarence Start Time Stop Time Status Last Admin Dose Admin Acetaminophen/ Hydrocodone Bitart (Lortab 5/325) 1 tab 1X ONCE 01/30/19 22:15 01/30/19 22:16 DC 01/30/19 22:13 1 TAB Fentanyl Citrate (Fentanyl 2ml Vial) 50 mcg 1X ONCE 01/30/19 21:30 01/30/19 21:31 DC 01/30/19 21:29 50 MCG Ondansetron HCl (Zofran Odt) 4 mg 1X ONCE 01/30/19 21:30 01/30/19 21:31 DC 01/30/19 21:29 4 MG Ondansetron HCl (Zofran) 4 mg 1X ONCE 01/30/19 22:15 01/30/19 22:16 DC 01/30/19 22:13 4 MG Allergies Allergies Allergies Coded Allergies Type Severity Reaction Last Updated Verified No Known Drug Allergies 12/20/18 No Physical Exam Physical Exam Constitutional: Well developed, well nourished, anxious and appears uncomfortable HENT: Normocephalic, atraumatic, oropharynx moist Eyes: PERRL, EOMI, conjunctiva normal, no discharge Neck: Normal range of motion, no midline tenderness, supple Cardiovascular: Heart rate normal, regular rhythm Lungs & Thorax: Bilateral breath sounds clear to auscultation, no wheezing Abdomen: Soft, no tenderness; pelvis stable and nontender Skin: Warm, dry, no erythema, small contusion noted to left sacrum Back: No midline tenderness, left sacral tenderness on palpation, no CVA tenderness Extremities: No tenderness, ROM intact, no edema Neurologic: Alert and oriented X 3, normal motor function, normal sensory function, no focal deficits noted Psychologic: Affect anxious, judgement normal Current Patient Data Vital Signs Vital Signs Date Time Temp Pulse Resp B/P (MAP) Pulse Ox O2 Delivery O2 Flow Rate FiO2 01/30/19 22:13 Room Air 01/30/19 21:29 16 95 01/30/19 21:05 104 01/30/19 20:25 98.3 253/115 (161) 98.3 EKG EKG [] Radiology/Procedures Radiology/Procedures PROCEDURE: SACRUM & COCCYX 3V Examination: SACRUM COCCYX 3V History: Pain, fall Comparison/Correlation: None Findings: Total of 3 images of the sacrum were obtained in the frontal and lateral projections. Osteopenia is notable. Vascular calcifications are present. No fracture or bony destruction. Sacroiliac joints are symmetric and unremarkable for the patient's age. Impression: No fracture. Consider further evaluation of occult process is a concern. Vascular calcifications are advanced for age. Osteopenia. Electronically signed by: Ildefonso Alberto MD (01/30/2019 10:03 PM) [facility] Course & Med Decision Making Course & Med Decision Making Pertinent Imaging studies reviewed. (See chart for details) Patient presents with report of mechanical trip and fall on her wheelchair with contusion to left sacrum. Patient also reports some nausea which she reports she experiences after dialysis. Nausea and pain addressed. Ice applied. X-ray obtained without acute fracture or dislocation. Patient stable for discharge with outpatient follow-up with PCP. Discussed findings and plan with patient, who acknowledge understanding and agreement. Dragon Disclaimer Dragon Disclaimer This electronic medical record was generated, in whole or in part, using a voice recognition dictation system. Departure Departure Impression: Primary Impression: Fall Additional Impressions: Sacral contusion Nausea & vomiting Disposition: 01 HOME, SELF-CARE Condition: STABLE Referrals: GRACIELA JUAREZ MD (PCP) Patient Instructions: Contusion, [id number], Fall Prevention and Home Safety, [id number], Nausea and Vomiting, [id number] Scripts Ondansetron (ONDANSETRON ODT) 4 Mg Tab.rapdis 1 TAB PO PRN Q6-8HRS PRN for NAUSEA, #16 TAB Prov: MARQUISE ZAMBRANO DO 01/30/19 Problem Qualifiers Primary Impression: Fall Encounter type: initial encounter Qualified Codes: W19.XXXA - Unspecified fall, initial encounter Additional Impressions: Sacral contusion Encounter type: initial encounter Qualified Codes: S30.0XXA - Contusion of lower back and pelvis, initial encounter Nausea & vomiting Vomiting type: unspecified Vomiting Intractability: non-intractable Qualified Codes: R11.2 - Nausea with vomiting, unspecified MARQUISE ZAMBRANO DO Jan 30, 2019 21:53
--- NOTE | 2019-01-30 22:06 | RAD ---
Examination: SACRUM COCCYX 3V History: Pain, fall Comparison/Correlation: None Findings: Total of 3 images of the sacrum were obtained in the frontal and lateral projections. Osteopenia is notable. Vascular calcifications are present. No fracture or bony destruction. Sacroiliac joints are symmetric and unremarkable for the patient's age. Impression: No fracture. Consider further evaluation of occult process is a concern. Vascular calcifications are advanced for age. Osteopenia. Electronically signed by: Ildefonso Alberto MD (01/30/2019 10:03 PM) [facility]
[2019-01-30] MEDS ORDERED: ONDANSETRON PF 4 MG/2 ML VIAL. IM ONE (22:15)
[2019-01-30] MEDS ORDERED: HYDROcodone/APAP 5/325MG 1 TAB TABLET PO ONE (22:15)
== END 2019-01-30 23:11 | disposition home or self-care (01) ==
LOC: ER 20:19
DX: S30.0XXA Contusion of lower back and pelvis, initial encounter (principal); R11.2 Nausea with vomiting, unspecified; E11.40 Type 2 diabetes mellitus with diabetic neuropathy, unspecified; I12.0 Hypertensive chronic kidney disease with stage 5 chronic kidney disease or end stage renal disease; E11.22 Type 2 diabetes mellitus with diabetic chronic kidney disease; N18.6 End stage renal disease; Z99.2 Dependence on renal dialysis; G89.29 Other chronic pain; Z87.891 Personal history of nicotine dependence; Z90.710 Acquired absence of both cervix and uterus; W05.0XXA Fall from non-moving wheelchair, initial encounter; Y93.89 Activity, other specified; Y92.89 Other specified places as the place of occurrence of the external cause; Y99.8 Other external cause status
CPT/HCPCS: 72220; 96372; 99284; J2405; J3010; Q0162

== ENCOUNTER 2019-03-21 16:14 | Inpatient (IN) | payer OTHER ==
[~2019-03-21] VITALS: Ht 160 cm; Wt 46.3 kg
[~2019-03-21 16:14] MED LIST changes: +GUAI5SYR PO
[2019-03-21] MEDS ORDERED: fentaNYL PF VIAL 100 MCG/2 ML VIAL IVP ONE (17:30)
--- NOTE | 2019-03-21 17:41 | PHYS DOC ---
Past Medical History Past Medical History: Diabetes-Type II, Hypertension, Renal Failure Additional Past Medical Histor: neuropathy, cataracts,CHRONIC PAIN,ESRD (THUY MCKENZIE GLASS INSERTER) Past Surgical History: Hysterectomy, Other Additional Past Surgical Histo: PICC PLACEMENT, BILATERAL BKA, SHUNT, toe amputation (THUY MCKENZIE GLASS INSERTER) Alcohol Use: None Drug Use: None (THUY MCKENZIE GLASS INSERTER) Adult General Chief Complaint Chief Complaint: LOWER EXT PAIN HPI HPI Patient is a 58 year old female who presents with sharp mid chest pain and left below knee stump pain and shortness of breath. Patient states it's been going on for a week. Patient has not had dialysis in one week. She states she just hurts all over. She states her grandson wouldn't stay with her and help her out of the house. She rates her pain a 10 out of 10. (THUY MCKENZIE APRN) Review of Systems Review of Systems Respiratory: Denies cough. +shortness of breath [] Cardiovascular: Sharp mid chest pain GI: Generalized abdominal pain and tightness, denies nausea, vomiting, bloody stools or diarrhea [] All other systems were reviewed and found to be within normal limits, except as documented in this note. (THUY MCKENZIE APRN) Current Medications Current Medications Current Medications Medications (Trade) Dose Ordered Sig/Clarence Start Time Stop Time Status Last Admin Dose Admin Fentanyl Citrate (Fentanyl 2ml Vial) 50 mcg 1X ONCE 03/21/19 17:30 03/21/19 17:31 DC 03/21/19 17:54 50 MCG (KIMBERLY DONOHUE MD) Allergies Allergies Allergies Coded Allergies Type Severity Reaction Last Updated Verified No Known Drug Allergies 02/27/19 No (KIMBERLY DONOHUE MD) Physical Exam Physical Exam Constitutional: Well developed, well nourished, no acute distress, non-toxic appearance. [] HENT: Normocephalic, atraumatic, bilateral external ears normal, oropharynx moist, no oral exudates, nose normal. [] Eyes: PERRLA, EOMI, conjunctiva normal, no discharge. [] Neck: Normal range of motion, no tenderness, supple, no stridor. [] Cardiovascular:Heart rate regular rhythm, no murmur [] Lungs & Thorax: Bilateral breath sounds diminished to auscultation [] Abdomen: Bowel sounds normal, rounded and tight, generalized tenderness, no masses, no pulsatile masses. [] Skin: Mile to Left BKA. Warm, dry, no erythema, no rash. [] Back: No tenderness, no CVA tenderness. [] Extremities: No tenderness, no cyanosis, no clubbing, ROM intact, no edema. [] Neurologic: Alert and oriented X 3, normal motor function, normal sensory function, no focal deficits noted. [] Psychologic: Affect normal, judgement normal, mood normal. [] (THUY MCKENZIE APRN) Current Patient Data Vital Signs Vital Signs Date Time Temp Pulse Resp B/P (MAP) Pulse Ox O2 Delivery O2 Flow Rate FiO2 03/21/19 18:30 83 197/88 (124) 100 Nasal Cannula 2.0 03/21/19 16:20 98.2 20 98.2 (KIMBERLY DONOHUE MD) Lab Values Laboratory Tests Test 03/21/19 17:15 White Blood Count 8.3 x10^3/uL (4.0-11.0) Red Blood Count 3.75 x10^6/uL (3.50-5.40) Hemoglobin 10.8 g/dL (12.0-15.5) L Hematocrit 33.5 % (36.0-47.0) L Mean Corpuscular Volume 89 fL (79-100) Mean Corpuscular Hemoglobin 29 pg (25-35) Mean Corpuscular Hemoglobin Concent 32 g/dL (31-37) Red Cell Distribution Width 20.9 % (11.5-14.5) H Platelet Count 408 x10^3/uL (140-400) H Neutrophils (%) (Auto) 75 % (31-73) H Lymphocytes (%) (Auto) 16 % (24-48) L Monocytes (%) (Auto) 8 % (0-9) Eosinophils (%) (Auto) 0 % (0-3) Basophils (%) (Auto) 1 % (0-3) Neutrophils # (Auto) 6.2 x10^3/uL (1.8-7.7) Lymphocytes # (Auto) 1.3 x10^3/uL (1.0-4.8) Monocytes # (Auto) 0.7 x10^3/uL (0.0-1.1) Eosinophils # (Auto) 0.0 x10^3/uL (0.0-0.7) Basophils # (Auto) 0.1 x10^3/uL (0.0-0.2) Platelet Estimate Increased (ADEQUATE) Polychromasia Hypochromasia Slight Poikilocytosis Slight Anisocytosis Mod Microcytosis Slight Target Cells Few Oliver Cells Occ Schistocytes Occ Prothrombin Time 13.4 SEC (11.7-14.0) Prothrombin Time INR 1.1 (0.8-1.1) Sodium Level 138 mmol/L (136-145) Potassium Level 7.2 mmol/L (3.5-5.1) *H Chloride Level 98 mmol/L (98-107) Carbon Dioxide Level 26 mmol/L (21-32) Anion Gap 14 (6-14) Blood Urea Nitrogen 55 mg/dL (7-20) H Creatinine 7.3 mg/dL (0.6-1.0) H Estimated GFR (Cockcroft-Gault) 7.0 BUN/Creatinine Ratio 8 (6-20) Glucose Level 102 mg/dL (70-99) H Calcium Level 9.1 mg/dL (8.5-10.1) Magnesium Level 2.7 mg/dL (1.8-2.4) H Total Bilirubin 0.4 mg/dL (0.2-1.0) Aspartate Amino Transferase (AST) 55 U/L (15-37) H Alanine Aminotransferase (ALT) 26 U/L (14-59) Alkaline Phosphatase 125 U/L (46-116) H Troponin I Quantitative 0.053 ng/mL (0.000-0.055) Total Protein 7.5 g/dL (6.4-8.2) Albumin 3.4 g/dL (3.4-5.0) Albumin/Globulin Ratio 0.8 (1.0-1.7) L Laboratory Tests 03/21/19 17:15 Laboratory Tests 03/21/19 17:15 (KIMBERLY DONOHUE MD) Lab Values Laboratory Tests Test 03/21/19 17:15 White Blood Count 8.3 x10^3/uL (4.0-11.0) Red Blood Count 3.75 x10^6/uL (3.50-5.40) Hemoglobin 10.8 g/dL (12.0-15.5) L Hematocrit 33.5 % (36.0-47.0) L Mean Corpuscular Volume 89 fL (79-100) Mean Corpuscular Hemoglobin 29 pg (25-35) Mean Corpuscular Hemoglobin Concent 32 g/dL (31-37) Red Cell Distribution Width 20.9 % (11.5-14.5) H Platelet Count 408 x10^3/uL (140-400) H Neutrophils (%) (Auto) 75 % (31-73) H Lymphocytes (%) (Auto) 16 % (24-48) L Monocytes (%) (Auto) 8 % (0-9) Eosinophils (%) (Auto) 0 % (0-3) Basophils (%) (Auto) 1 % (0-3) Neutrophils # (Auto) 6.2 x10^3/uL (1.8-7.7) Lymphocytes # (Auto) 1.3 x10^3/uL (1.0-4.8) Monocytes # (Auto) 0.7 x10^3/uL (0.0-1.1) Eosinophils # (Auto) 0.0 x10^3/uL (0.0-0.7) Basophils # (Auto) 0.1 x10^3/uL (0.0-0.2) Platelet Estimate Increased (ADEQUATE) Polychromasia Hypochromasia Slight Poikilocytosis Slight Anisocytosis Mod Microcytosis Slight Target Cells Few Juanjo Cells Occ Schistocytes Occ Prothrombin Time 13.4 SEC (11.7-14.0) Prothrombin Time INR 1.1 (0.8-1.1) Sodium Level 138 mmol/L (136-145) Potassium Level 7.2 mmol/L (3.5-5.1) *H Chloride Level 98 mmol/L (98-107) Carbon Dioxide Level 26 mmol/L (21-32) Anion Gap 14 (6-14) Blood Urea Nitrogen 55 mg/dL (7-20) H Creatinine 7.3 mg/dL (0.6-1.0) H Estimated GFR (Cockcroft-Gault) 7.0 BUN/Creatinine Ratio 8 (6-20) Glucose Level 102 mg/dL (70-99) H Calcium Level 9.1 mg/dL (8.5-10.1) Magnesium Level 2.7 mg/dL (1.8-2.4) H Total Bilirubin 0.4 mg/dL (0.2-1.0) Aspartate Amino Transferase (AST) 55 U/L (15-37) H Alanine Aminotransferase (ALT) 26 U/L (14-59) Alkaline Phosphatase 125 U/L (46-116) H Troponin I Quantitative 0.053 ng/mL (0.000-0.055) Total Protein 7.5 g/dL (6.4-8.2) Albumin 3.4 g/dL (3.4-5.0) Albumin/Globulin Ratio 0.8 (1.0-1.7) L Laboratory Tests 03/21/19 17:15 Laboratory Tests 03/21/19 17:15 (THUY MCKENZIE APRN) EKG EKG Sinus Rhythm and no STEMI Interpretation Time: [address] Yoder (THUY MCKENZIE APRN) Radiology/Procedures Radiology/Procedures [] (THUY MCKENZIE APRN) Impressions: [facility] [address] [place] [address] IMAGING REPORT Signed PATIENT: OTTONIEL SMITH ACCOUNT: [id number] : 1960 LOCATION: ER AGE: 58 SEX: F EXAM STATUS: REG ER ORD. PHYSICIAN: THUY MCKENZIE APRN REASON: abd pain PROCEDURE: CT ABDOMEN PELVIS WO CONTRAST Examination: CT ABDOMEN PELVIS WO CONTRAST History: Abdominal pain Comparison/Correlation: None Findings: Axial images of the abdomen and pelvis were obtained without contrast. Sagittal and coronal reformatted images were provided. Moderate right pleural effusion is present. Bibasilar patchy linear atelectasis is present with cardiomegaly is present. Extensive coronary arterial calcification is partially seen. Mild anasarca noted. Extensive calcific involvement of the arterial vasculature of the abdomen and pelvis is noted diffusely. Hepatomegaly is present. Spleen, pancreas and adrenal glands are unremarkable. Right kidney is unremarkable other than vascular calcification. Left renal lower pole low-attenuation lesion which probably represents a cyst is present. It is of borderline density. Additional punctate smaller lesion also is present more inferiorly involving the left kidney compatible with a cyst. Large quantity of stool in colon noted. No bowel obstruction or extraluminal gas. No suspicious findings about the cecum but evaluation is limited due to minimal mesenteric fat and the presence of ascites. Appendix is not identified. Urinary bladder is unremarkable. Small amount of ascites subjacent to the liver. Small amount of pelvic free fluid noted. Anasarca noted. L2-3 disc space narrowing is notable with severe endplate sclerosis. Vertebral body heights are adequate. Impression: Right pleural effusion with adjacent atelectatic consolidation. Scattered extensive linear atelectasis at the lung bases also seen. Anasarca. Small amount of ascites and pelvic free fluid. Severe L1-2-3 disc space narrowing with endplate sclerosis. Slight levo convexity of the spine at this site. Hepatomegaly. PQRS Compliance Statement: One or more of the following individualized dose reduction techniques were utilized for this examination: 1. Automated exposure control 2. Adjustment of the mA and/or kV according to patient size 3. Use of iterative reconstruction technique Electronically signed by: Ildefonso Dixon MD (03/21/2019 7:13 PM) [facility] DICTATED and SIGNED BY: ILDEFONSO DXION MD DATE: 03/21/191912 (THUY MCKENZIE APRN) Course & Med Decision Making Course & Med Decision Making Patient states she does not make any urine. Alert and oriented and speaks in full clear sentences. States she lives on her own and her grandson as well as to help her but he will not. Abdomen is rounded and tight and generalized t enderness. No extremity edema or redenss. Patient has staple intact in her left BKA that she states was done [address] Villeda. There is no drainage or redness from this. No tenderness with palpation. Skin is pink warm and dry. Lungs are diminished throughout. No respiratory distress. When walking into the room patient was laying flat in satting at 81%. She is sat up in bed and placed on 2 L of oxygen and she is now 100%. Chest x-ray is read by Dr. Yoder and she has obvious of a fluid overload. Does seem is 7.2. Has started the hyperkalemia protocol and have given D50, insulin, calcium gluconate, Kayexalate. I have talked to Dr. Hoyos about this patient for admission and consulted with Dr Yoder on this patient. I have also spoken to Dr. Aleman with Nephrology about the need for dialysis. (THUY MCKENZIE APRN) Course & Med Decision Making I was not involved in the care of this patient after 1800 on 03/21/2019. (KIMBERLY DONOHUE MD) Dragon Disclaimer Dragon Disclaimer This electronic medical record was generated, in whole or in part, using a voice recognition dictation system. (THUY MCKENZIE APRN) Departure Departure Impression: Primary Impression: Hyperkalemia Additional Impression: Pulmonary edema Disposition: ADMITTED INPATIENT Admitting Physician: SOFI (THUY MCKENZIE APRN) Condition: STABLE Referrals: GRACIELA JUAREZ MD (PCP) Problem Qualifiers Additional Impression: Pulmonary edema Chronicity: chronic Qualified Codes: J81.1 - Chronic pulmonary edema THUY MCKENZIE APRN Mar 21, 2019 17:41 KIMBERLY DONOHUE MD Mar 31, 2019 06:20
[2019-03-21 17:47] LABS: BASO # 0.1 x10^3/uL (0.0-0.2); BASO % 1 % (0-3); EOS % 0 % (0-3); HEMATOCRIT 33.5 % (36.0-47.0); HEMOGLOBIN 10.8 g/dL (12.0-15.5); LYMPH # 1.3 x10^3/uL (1.0-4.8); LYMPH % 16 % (24-48); MEAN CORPUSCULAR HEMOGLOBIN 29 pg (25-35); MEAN CORPUSCULAR HGB CONC 32 g/dL (31-37); MEAN CORPUSCULAR VOLUME 89 fL (79-100); MONO # 0.7 x10^3/uL (0.0-1.1); MONO % 8 % (0-9); NEUT # 6.2 x10^3/uL (1.8-7.7); NEUT % 75 % (31-73); PLATELET COUNT 408 x10^3/uL (140-400); RED BLOOD COUNT 3.75 x10^6/uL (3.50-5.40); RED CELL DISTRIBUTION WIDTH 20.9 % (11.5-14.5); WHITE BLOOD COUNT 8.3 x10^3/uL (4.0-11.0)
[2019-03-21 17:56] LABS: PROTHROMBIN TIME PATIENT 13.4 SEC (11.7-14.0)
[2019-03-21 18:03] LABS: ALBUMIN 3.4 g/dL (3.4-5.0); ALBUMIN/GLOBULIN RATIO 0.8 (1.0-1.7); CALCIUM 9.1 mg/dL (8.5-10.1); CREATININE 7.3 mg/dL (0.6-1.0); MAGNESIUM 2.7 mg/dL (1.8-2.4); TOTAL BILIRUBIN 0.4 mg/dL (0.2-1.0); TOTAL PROTEIN 7.5 g/dL (6.4-8.2)
[2019-03-21 18:06] LABS: POTASSIUM 7.2 mmol/L (3.5-5.1)
[2019-03-21 18:45] LABS: ANISOCYTOSIS MOD; HYPOCHROMIA SLIGHT; MICROCYTOSIS SLIGHT; TARGET CELLS FEW
[2019-03-21 18:46] LABS: BURR CELLS OCC; SCHISTOCYTES OCC
[2019-03-21 18:47] LABS: PLT ESTIMATE INCREASED (ADEQUATE); POIKILOCYTOSIS SLIGHT
[2019-03-21] MEDS ORDERED: SODIUM BICARB ADULT 8.4% 50 MEQ/50 ML DISP.SYRIN. IV ONE (19:00)
[2019-03-21] MEDS ORDERED: CALCIUM GLUCONATE 1,000 MG/10 ML VIAL. IVP ONE (19:00)
[2019-03-21] MEDS ORDERED: INSULIN REGULAR 100 UNIT/ML 3ML VIAL. IV ONE (19:00)
[2019-03-21] MEDS ORDERED: DEXTROSE 50% 25 GM / 50ML DISP.SYRIN. IV ONE (19:00)
[2019-03-21] MEDS ORDERED: ONDANSETRON PF 4 MG/2 ML VIAL. IV PRN (19:15)
--- NOTE | 2019-03-21 19:16 | RAD ---
Examination: CT ABDOMEN PELVIS WO CONTRAST History: Abdominal pain Comparison/Correlation: None Findings: Axial images of the abdomen and pelvis were obtained without contrast. Sagittal and coronal reformatted images were provided. Moderate right pleural effusion is present. Bibasilar patchy linear atelectasis is present with cardiomegaly is present. Extensive coronary arterial calcification is partially seen. Mild anasarca noted. Extensive calcific involvement of the arterial vasculature of the abdomen and pelvis is noted diffusely. Hepatomegaly is present. Spleen, pancreas and adrenal glands are unremarkable. Right kidney is unremarkable other than vascular calcification. Left renal lower pole low-attenuation lesion which probably represents a cyst is present. It is of borderline density. Additional punctate smaller lesion also is present more inferiorly involving the left kidney compatible with a cyst. Large quantity of stool in colon noted. No bowel obstruction or extraluminal gas. No suspicious findings about the cecum but evaluation is limited due to minimal mesenteric fat and the presence of ascites. Appendix is not identified. Urinary bladder is unremarkable. Small amount of ascites subjacent to the liver. Small amount of pelvic free fluid noted. Anasarca noted. L2-3 disc space narrowing is notable with severe endplate sclerosis. Vertebral body heights are adequate. Impression: Right pleural effusion with adjacent atelectatic consolidation. Scattered extensive linear atelectasis at the lung bases also seen. Anasarca. Small amount of ascites and pelvic free fluid. Severe L1-2-3 disc space narrowing with endplate sclerosis. Slight levo convexity of the spine at this site. Hepatomegaly. PQRS Compliance Statement: One or more of the following individualized dose reduction techniques were utilized for this examination: 1. Automated exposure control 2. Adjustment of the mA and/or kV according to patient size 3. Use of iterative reconstruction technique Electronically signed by: Ildefonso Alberto MD (03/21/2019 7:13 PM) [facility]
[2019-03-21] MEDS: fentaNYL PF VIAL 100 MCG/2 ML VIAL IV PRN (19:37)
--- NOTE | 2019-03-21 19:39 | RAD ---
Examination: PORTABLE CHEST 1V History: Chest pain Comparison/Correlation: February 11, 2019 portable chest x-ray exam Findings: Portable upright frontal view chest was obtained. Heart size is within normal limits. No pneumothorax. Pulmonary vasculature is congested. Evaluation of the left lung base is limited with the patient's left hand overlying it. Small pleural effusions suggested. Impression: Possible left lower lung field infiltrate. Repeat exam recommended when able as the patient's hand obscures evaluation. Suture congestion. Electronically signed by: Ildefonso Alberto MD (03/21/2019 7:35 PM) [facility]
[2019-03-21] MEDS ORDERED: PROCHLORPERAZINE 5 MG TABLET. PO PRN (20:15)
[2019-03-21] MEDS ORDERED: ALBUTEROL SULFATE 2.5 MG/3 ML NEBU. INH PRN (20:15)
[2019-03-21] MEDS ORDERED: guaiFENesin DM 200MG/20MG 10 ML SYRUP PO PRN (20:15)
[2019-03-21] MEDS ORDERED: ONDANSETRON ODT 4 MG TAB.RAPDIS. PO PRN (20:15)
[2019-03-21] MEDS ORDERED: ACETAMINOPHEN 325 MG TABLET. PO PRN (20:30)
[2019-03-21] MEDS ORDERED: IV NORMAL SALINE 1000ML BAG 1,000 ML IV PRN ×2 (20:48)
[2019-03-21] MEDS: HYDROcodone/APAP 5/325MG 1 TAB TABLET PO PRN (20:53)
[2019-03-21] MEDS: LATANOPROST 0.005% OPHTH SOLUTION 2.5ML BOTTLE. OU SCH (21:00)
[2019-03-21] MEDS ORDERED: ALBUMIN HUMAN 25% 200 ML IV PRN (21:00)
[2019-03-21] MEDS ORDERED: DIALYSIS PATIENT. MC PRN ×2 (21:00)
[2019-03-21] MEDS ORDERED: diphenhydrAMINE 50 MG/ML VIAL ONE (21:11)
[2019-03-21] MEDS ORDERED: diphenhydrAMINE 50 MG/ML VIAL IVP ONE (21:45)
[2019-03-21 23:00] VITALS: BP 180/70
[2019-03-22] MEDS: CARVEDILOL 12.5 MG TABLET. PO SCH ×3 (00:15→18:10)
[2019-03-22] MEDS: hydrALAZINE 25 MG TABLET PO SCH ×4 (00:15→21:06)
[2019-03-22] MEDS: LACTOBACILLUS RHAMNOSUS GG 1 CAPSULE. PO SCH ×3 (00:15→21:06)
[2019-03-22] MEDS: fentaNYL PF VIAL 100 MCG/2 ML VIAL IV PRN ×6 (00:16→18:11)
[2019-03-22] MEDS: ATORVASTATIN CALCIUM 40 MG TABLET. PO SCH ×2 (00:16→21:06)
--- NOTE | 2019-03-22 02:46 | NUR ---
The patient, OTTONIEL SMITH, 58 y/o, F admitted by FELI SHAH MD, was given written information regarding hospital policies, unit procedures. Patient agitated about not being able to receive pain medications and frequently placing light. Patient refused medications and educated patient on reasons for being here and medications help and then patient took medications. Valuables were checked and verified.
[2019-03-22 03:00] VITALS: BP 155/53
[2019-03-22] MEDS: LEVOTHYROXINE 50 MCG TABLET PO SCH (05:28)
[2019-03-22 06:14] LABS: CALCIUM 8.5 mg/dL (8.5-10.1); CREATININE 4.9 mg/dL (0.6-1.0); GFR 11.1; POTASSIUM 4.8 mmol/L (3.5-5.1)
--- NOTE | 2019-03-22 06:23 | EKG ---
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
[2019-03-22 07:00] VITALS: BP 197/81
[2019-03-22] MEDS: PANTOPRAZOLE 40 MG TABLET.DR. PO SCH (07:30)
[2019-03-22] MEDS: HYDROcodone/APAP 5/325MG 1 TAB TABLET PO PRN ×2 (07:55→19:23)
[2019-03-22] MEDS: CLOPIDOGREL BISULFATE 75 MG TABLET PO SCH (07:56)
[2019-03-22] MEDS: SERTRALINE 50 MG TABLET. PO SCH (07:57)
[2019-03-22] MEDS: FOLIC/VIT B COMP W-C (RENAL) TABLET. PO SCH (07:57)
[2019-03-22] MEDS: amLODIPine BESYLATE 10 MG TABLET PO SCH (07:57)
--- NOTE | 2019-03-22 09:41 | PDOC2 ---
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 Reports that she has been having this nonproductive cough in the last few days. Her chest pain which is sharp started after her cough and this is reproducible with palpation. With her cough her lower abdomen started hurting and more complains to her butt citing her hemorrhoids is acting up and really painful with cough. No nausea or vomiting. No palpitations. She has been asking for fentanyl. She recently had a LBKA due to nonhealing wound and infection and tolerated the procedure well. Complains that she has not been able to get around depnnedent on WC and wanting an electric scooter. She has missed her HD due citing transport issues and was not very forthcoming with me in regards to compliance with her meds. PAST MEDICAL HISTORY Cardiovascular: CHF, HTN, Hyperlipidemia, Other (PAD) Pulmonary: Asthma GI: GERD Heme/Onc: Anemia NOS Psych: Bipolar ENT: Allergic Rhinitis, Other (glaucoma) Renal/: Chronic renal failure Endocrine: Diabetes (2), Hypothyroidism PAST SURGICAL HISTORY Past Surgical History: Hysterectomy, Other (bilateral BKA; LUE dilaysis fistula) FAMILY HISTORY Family History: Hypertension SOCIAL HISTORY Smoke: Quit ALCOHOL: none Drugs: None Lives: Alone CURRENT MEDICATIONS CURRENT MEDICATIONS Current Medications Medications (Trade) Dose Ordered Sig/Clarnece Route PRN Reason Start Time Stop Time Status Last Admin Dose Admin Fentanyl Citrate (Fentanyl 2ml Vial) 50 mcg 1X ONCE IVP 03/21/19 17:30 03/21/19 17:31 DC 03/21/19 17:54 Calcium Gluconate (Calcium Gluconate) 1,000 mg 1X ONCE IVP 03/21/19 19:00 03/21/19 19:04 DC 03/21/19 19:39 Sodium Bicarbonate (Sodium Bicarb Adult 8.4% Syr) 50 meq 1X ONCE IV 03/21/19 19:00 03/21/19 19:04 DC 03/21/19 19:39 Dextrose (Dextrose 50%-Water Syringe) 25 gm 1X ONCE IV 03/21/19 19:00 03/21/19 19:04 DC 03/21/19 19:39 Insulin Human Regular (HumuLIN R VIAL) 10 unit 1X ONCE IV 03/21/19 19:00 03/21/19 19:04 DC 03/21/19 19:42 Fentanyl Citrate (Fentanyl 2ml Vial) 50 mcg PRN Q1HR PRN IV PAIN 03/21/19 19:15 03/22/19 19:14 03/22/19 08:53 Amlodipine Besylate (Norvasc) 10 mg DAILY PO 03/22/19 09:00 03/22/19 07:57 Atorvastatin Calcium (Lipitor) 40 mg HS PO 03/21/19 21:00 03/22/19 00:16 Carvedilol (Coreg) 12.5 mg BIDWMEALS PO 03/21/19 21:00 03/22/19 07:56 Clopidogrel Bisulfate (Plavix) 75 mg DAILYWBKFT PO 03/22/19 08:00 03/22/19 07:56 Vitamin B Complex/ Vitamin C (Pinky-Shreya) 1 tab DAILY PO 03/22/19 09:00 03/22/19 07:57 Hydralazine HCl (Apresoline) 25 mg TID PO 03/21/19 21:00 03/22/19 07:56 Acetaminophen/ Hydrocodone Bitart (Lortab 5/325) 1 tab PRN Q6HRS PRN PO MODERATE PAIN 03/21/19 20:15 03/22/19 07:55 Lactobacillus Rhamnosus (Culturelle) 1 cap BID PO 03/21/19 21:00 03/22/19 00:15 Levothyroxine Sodium (Synthroid) 50 mcg DAILY06 PO 03/22/19 06:00 03/22/19 05:28 Sertraline HCl (Zoloft) 50 mg DAILY PO 03/22/19 09:00 03/22/19 07:57 Diphenhydramine HCl (Benadryl) 25 mg 1X ONCE IVP 03/21/19 21:45 03/21/19 21:46 DC 03/21/19 21:41 ALLERGIES ALLERGIES: Coded Allergies: No Known Drug Allergies (Unverified , 02/27/19) ROS Review of System limited uncooperative with further details PHYSICAL EXAM General: Alert, Oriented X3, Cooperative, No acute distress HEENT: Atraumatic, Mucous membr. moist/pink Abdomen: Soft, Other (Lower abd tenderness with palpation) Extremities: No cyanosis, Other (bilateral BKA) Skin: No breakdown Neuro: Normal speech, Sensation intact Psych/Mental Status: Mental status NL, Other (anxious) MUSCULOSKELETAL: Osteoarthritic changes both hands VITALS/I&O VITALS/I&O: Vital Signs Date Time Temp Pulse Resp B/P (MAP) Pulse Ox O2 Delivery O2 Flow Rate FiO2 03/22/19 08:53 18 93 Nasal Cannula 2.0 03/22/19 07:57 77 197/81 03/22/19 07:00 98.0 98.0 I & O 03/21/19 03/21/19 03/22/19 15:00 23:00 07:00 Intake Total 0 ml 240 ml Balance 0 ml 240 ml LABS Lab: Laboratory Tests Test 03/21/19 17:15 03/22/19 00:15 03/22/19 05:54 White Blood Count 8.3 x10^3/uL (4.0-11.0) Red Blood Count 3.75 x10^6/uL (3.50-5.40) Hemoglobin 10.8 g/dL (12.0-15.5) L Hematocrit 33.5 % (36.0-47.0) L Mean Corpuscular Volume 89 fL (79-100) Mean Corpuscular Hemoglobin 29 pg (25-35) Mean Corpuscular Hemoglobin Concent 32 g/dL (31-37) Red Cell Distribution Width 20.9 % (11.5-14.5) H Platelet Count 408 x10^3/uL (140-400) H Neutrophils (%) (Auto) 75 % (31-73) H Lymphocytes (%) (Auto) 16 % (24-48) L Monocytes (%) (Auto) 8 % (0-9) Eosinophils (%) (Auto) 0 % (0-3) Basophils (%) (Auto) 1 % (0-3) Neutrophils # (Auto) 6.2 x10^3/uL (1.8-7.7) Lymphocytes # (Auto) 1.3 x10^3/uL (1.0-4.8) Monocytes # (Auto) 0.7 x10^3/uL (0.0-1.1) Eosinophils # (Auto) 0.0 x10^3/uL (0.0-0.7) Basophils # (Auto) 0.1 x10^3/uL (0.0-0.2) Platelet Estimate Increased (ADEQUATE) Polychromasia Hypochromasia Slight Poikilocytosis Slight Anisocytosis Mod Microcytosis Slight Target Cells Few Juanjo Cells Occ Schistocytes Occ Prothrombin Time 13.4 SEC (11.7-14.0) Prothrombin Time INR 1.1 (0.8-1.1) Sodium Level 138 mmol/L (136-145) 139 mmol/L (136-145) Potassium Level 7.2 mmol/L (3.5-5.1) *H 4.0 mmol/L (3.5-5.1) # 4.8 mmol/L (3.5-5.1) Chloride Level 98 mmol/L (98-107) 99 mmol/L (98-107) Carbon Dioxide Level 26 mmol/L (21-32) 33 mmol/L (21-32) H Anion Gap 14 (6-14) 7 (6-14) Blood Urea Nitrogen 55 mg/dL (7-20) H 31 mg/dL (7-20) #H Creatinine 7.3 mg/dL (0.6-1.0) H 4.9 mg/dL (0.6-1.0) H Estimated GFR (Cockcroft-Gault) 7.0 11.1 BUN/Creatinine Ratio 8 (6-20) Glucose Level 102 mg/dL (70-99) H 66 mg/dL (70-99) L Calcium Level 9.1 mg/dL (8.5-10.1) 8.5 mg/dL (8.5-10.1) Magnesium Level 2.7 mg/dL (1.8-2.4) H Total Bilirubin 0.4 mg/dL (0.2-1.0) Aspartate Amino Transferase (AST) 55 U/L (15-37) H Alanine Aminotransferase (ALT) 26 U/L (14-59) Alkaline Phosphatase 125 U/L (46-116) H Troponin I Quantitative 0.053 ng/mL (0.000-0.055) 0.055 ng/mL (0.000-0.055) 0.060 ng/mL (0.000-0.055) Total Protein 7.5 g/dL (6.4-8.2) Albumin 3.4 g/dL (3.4-5.0) Albumin/Globulin Ratio 0.8 (1.0-1.7) L Laboratory Tests 03/21/19 17:15 Laboratory Tests 03/21/19 17:15 03/22/19 00:15 03/22/19 05:54 ECHOCARDIOGRAM ECHOCARDIOGRAM <Conclusion> The left ventricular systolic function is normal. The Ejection Fraction is 60-65%. There is normal LV segmental wall motion. Evidence for grade III diastolic dysfunction. There is moderate concentric left ventricular hypertrophy. Doppler and Color Flow revealed trace tricuspid valve regurgitation. There is no evidence of significant pericardial effusion. DATE: 03/05/18 1632 STRESS TEST STRESS TEST Conclusion 1. Regadenoson cardioisotope stress test did not show any evidence of ischemia or infarct. 2. Normal left ventricular systolic function with ejection fraction calculated at 51%. 3. Low risk for cardiac events. DATE: 03/26/18 1227 ASSESSMENT/PLAN ASSESSMENT/PLAN 1. Atypical chest pain: MSK reproducible 2. Mildly elevated trop: at 0.06. No significant EKG changes, demand mediated w ith renal insufficiency and uncontrolled HTN 3. Acute on chronic diastolic CHF: SOA better 4. Accelerated HTN: labile 5. Anasarca 6. Gluteal pain: complains of hemorrhoids acting up worse with cough. defer to PCP 7. Noncompliance: missed dialysis, no transport. Suspect missed meds as well. 8. Hx of severe LE PAD: S/P bilateral BKA. more recent to left leg, incision intact with stables. 9. ESRD with hyperkalemia: better after HD 10. Debility Recommendations 1. TTE, TSH, lipids 2. Continue with current BP regimen, will adjust per trend. Hydralazine IV PRN 3. Fluid off loading per HD 4. Supportive care. Continue with secondary preventio measures and on plavix. 5. Discussed compliance but not wanting to here it currently. SS possibly qualify for motor scooter. Lives alone 6. Good tolerance with recent surgery however with her significant risk factors we would consider for outpt stress test. RILEY WHITE MD 03/22/19 1152: CARDIAC CONSULT ASSESSMENT/PLAN ASSESSMENT/PLAN Patient seen and examined. Agree with NUCLEAR OFFICER's assessment and plan. Chest pain with atypical features and most probably musculoskeletal. Slight troponin elevation probably demand ischemia. Blood pressure better controlled since admission. Continue hemodialysis per nephrology team for mild acute on chronic diastolic heart failure Thank you for your consultation ALLISON NASCIMENTO APRN Mar 22, 2019 09:41 RILEY WHITE MD Mar 22, 2019 11:52
[2019-03-22 10:01] LABS: CHOLESTEROL/HDL RATIO 3.3
--- NOTE | 2019-03-22 10:03 | NUR ---
Patient belligerent and demands a different nurse from the beginning of the shift at 0650. Initially refused her meds, then agreed to take some except [place] her Protonix, Zenpep and Culturelle. States she only want her Fentanyl.
[2019-03-22 10:07] VITALS: BP 149/49
[2019-03-22] MEDS ORDERED: HYDROCORTISONE 2.5% RECTAL CREAM 30GM TUBE. RC PRN (10:30)
--- NOTE | 2019-03-22 11:13 | PDOC1 ---
History and Physical Date of Admission: Date of Admission DATE: 03/22/19 TIME: 11:10 Chief Complaint: Problems: (1) Acute respiratory failure with hypoxia (2) Peripheral neuropathy (3) ESRD on dialysis (4) Malnutrition (5) DM type 2 (diabetes mellitus, type 2) (6) Acute anemia (7) PAD (peripheral artery disease) (8) Hypothyroidism (9) Amputated toe of left foot (10) Diabetic peripheral neuropathy associated with type 2 diabetes mellitus (11) Gangrene of toe of left foot (12) Anemia (13) Leukocytosis (14) Hypertensive emergency (15) Pain of amputation stump of right lower extremity (16) CKD (chronic kidney disease) (17) COPD (chronic obstructive pulmonary disease) (18) Viral sinusitis Chief Complain: I missed dialysis History of Present Illness: HPI: Patient is a 58 year old female who presents with sharp mid chest pain and left below knee stump pain and shortness of breath. Patient states it's been going on for a week. Patient has not had dialysis in one week. She states she just hurts all over. She states her grandson wouldn't stay with her and help her out of the house. She rates her pain a 10 out of 10. I discussed the case with ER physician remained the patient for dialysis that I want to go ahead and get [facility] Discussed with RN Chart reviewed Past Medical/Surgical History: PMH/PSH: Past Medical History: Severe noncompliance organic aggressive behavior Diabetes-Type II, Hypertension, Renal Failure Additional Past Medical Histor: neuropathy, cataracts,CHRONIC PAIN,ESRD Past Surgical History: Hysterectomy, Other Additional Past Surgical Histo: PICC PLACEMENT, BILATERAL BKA, SHUNT, toe amputation Alcohol Use: None Drug Use: None Allergies: Allergies: Coded Allergies: No Known Drug Allergies (Unverified , 02/27/19) Family History: Family History: End-stage renal disease Social History: Social Hisoty: I thought she was living in a group home but I think she might be home not sure She does not drink smoke or take drugs [facility] Current Medications: Current Medications Current Medications Fentanyl Citrate (Fentanyl 2ml Vial) 50 mcg 1X ONCE IVP Last administered on 03/21/19at 17:54; Start 03/21/19 at 17:30; Stop 03/21/19 at 17:31; Status DC Calcium Gluconate (Calcium Gluconate) 1,000 mg 1X ONCE IVP Last administered on 03/21/19 19:39; Start 03/21/19 at 19:00; Stop 03/21/19 at 19:04; Status DC Sodium Bicarbonate (Sodium Bicarb Adult 8.4% Syr) 50 meq 1X ONCE IV Last administered on 03/21/19 19:39; Start 03/21/19 at 19:00; Stop 03/21/19 at 19:04; Status DC Dextrose (Dextrose 50%-Water Syringe) 25 gm 1X ONCE IV Last administered on 03/21/19 19:39; Start 03/21/19 at 19:00; Stop 03/21/19 at 19:04; Status DC Insulin Human Regular (HumuLIN R VIAL) 10 unit 1X ONCE IV Last administered on 03/21/19 19:42; Start 03/21/19 at 19:00; Stop 03/21/19 at 19:04; Status DC Ondansetron HCl (Zofran) 4 mg PRN Q8HRS PRN IV NAUSEA/VOMITING; Start 03/21/19 at 19:15; Stop 03/22/19 at 19:14 Fentanyl Citrate (Fentanyl 2ml Vial) 50 mcg PRN Q1HR PRN IV PAIN Last administered on 03/22/19 08:53; Start 03/21/19 at 19:15; Stop 03/22/19 at 19:14 Albuterol Sulfate (Ventolin Neb Soln) 2.5 mg PRN BID PRN INH SHORTNESS OF BREATH; Start 03/21/19 at 20:15 Amlodipine Besylate (Norvasc) 10 mg DAILY PO Last administered on 03/22/19 07:57; Start 03/22/19 at 09:00 Atorvastatin Calcium (Lipitor) 40 mg HS PO Last administered on 03/22/19 00:16; Start 03/21/19 at 21:00 Carvedilol (Coreg) 12.5 mg BIDWMEALS PO Last administered on 03/22/19 07:56; Start 03/21/19 at 21:00 Clonidine HCl (Catapres Tts-2) 1 patch WEEKLY TD ; Start 03/28/19 at 09:00 Clopidogrel Bisulfate (Plavix) 75 mg DAILYWBKFT PO Last administered on 12/27/19at 07:56; Start 03/22/19 at 08:00 Vitamin B Complex/ Vitamin C (Pinky-Shreya) 1 tab DAILY PO Last administered on 03/22/19at 07:57; Start 03/22/19 at 09:00 Guaifenesin (Robitussin Dm) 10 ml PRN Q6HRS PRN PO COUGH; Start 03/21/19 at 20:15 Hydralazine HCl (Apresoline) 25 mg TID PO Last administered on 03/22/19at 07:56; Start 03/21/19 at 21:00 Acetaminophen/ Hydrocodone Bitart (Lortab 5/325) 1 tab PRN Q6HRS PRN PO MODERATE PAIN Last administered on 03/22/19at 07:55; Start 03/21/19 at 20:15 Lactobacillus Rhamnosus (Culturelle) 1 cap BID PO Last administered on 03/22/19at 00:15; Start 03/21/19 at 21:00 Latanoprost (Xalatan) 1 drop HS OU ; Start 03/21/19 at 21:00 Levothyroxine Sodium (Synthroid) 50 mcg DAILY06 PO Last administered on 03/22/19at 05:28; Start 03/22/19 at 06:00 Ondansetron HCl (Zofran Odt) 4 mg PRN Q6HRS PRN PO NAUSEA; Start 03/21/19 at 20:15 Prochlorperazine Maleate (Compazine) 5 mg PRN TID PRN PO NAUSEA; Start 03/21/19 at 20:15 Sertraline HCl (Zoloft) 50 mg DAILY PO Last administered on 03/22/19at 07:57; Start 03/22/19 at 09:00 Acetaminophen (Tylenol) 650 mg PRN Q6HRS PRN PO MILD PAIN / TEMP; Start 03/21/19 at 20:30 Amylase/Lipase/ Protease (Zenpep 5,000) 1 cap TIDWMEALS PO ; Start 03/21/19 at 21:00 Pantoprazole Sodium (Protonix) 40 mg DAILYAC PO ; Start 03/22/19 at 07:30 Sodium Chloride 1,000 ml @ 1,000 mls/hr Q1H PRN IV hypotension; Start 03/21/19 at 20:48; Stop 03/22/19 at 02:47; Status DC Albumin Human 200 ml @ 200 mls/hr 1X PRN PRN IV Hypotension; Start 03/21/19 at 21:00; Stop 03/22/19 at 02:59; Status DC Sodium Chloride 1,000 ml @ 400 mls/hr Q2H30M PRN IV PATENCY; Start 03/21/19 at 20:48; Stop 03/22/19 at 08:47; Status DC Info (PHARMACY MONITORING -- do not chart) 1 each PRN DAILY PRN MC SEE COMMENTS; Start 03/21/19 at 21:00; Status UNV Info (PHARMACY MONITORING -- do not chart) 1 each PRN DAILY PRN MC SEE COMMENTS; Start 03/21/19 at 21:00 Diphenhydramine HCl (Benadryl) 50 mg STK-MED ONCE .ROUTE ; Start 03/21/19 at 21:11; Stop 03/21/19 at 21:12; Status DC Diphenhydramine HCl (Benadryl) 25 mg 1X ONCE IVP Last administered on 03/21/19at 21:41; Start 03/21/19 at 21:45; Stop 03/21/19 at 21:46; Status DC Hydrocortisone (Proctosol-Hc) 1 herber PRN BID PRN RC INFLAMMATION; Start 03/22/19 at 10:30 Active Scripts Active Guaifenesin Dm Syrup (Guaifenesin/Dextromethorphan) 5 Ml Syrup 10 Ml PO PRN Q6HRS PRN 10 Days Ondansetron Odt (Ondansetron) 4 Mg Tab.rapdis 1 Tab PO PRN Q6-8HRS PRN Hydrocodone-Apap 5-325 (Hydrocodone Bit/Acetaminophen) 1 Tab Tablet 1 Tab PO PRN Q6HRS PRN Carvedilol (Carvedilol) 6.25 Mg Tablet 12.5 Mg PO BIDWMEALS Hydralazine Hcl 25 Mg Tablet 25 Mg PO TID Humalog (Insulin Lispro) 100 Unit/1 Ml Insuln.pen 0 Units SQ TIDWMEALS 28 Days Culturelle (Lactobacillus Rhamnosus Gg) 1 Each Cap.sprink 1 Cap PO BID 30 Days Ondansetron Odt (Ondansetron) 4 Mg Tab.rapdis 4 Mg PO PRN Q6HRS PRN 28 Days Clopidogrel (Clopidogrel Bisulfate) 75 Mg Tablet 75 Mg PO DAILYWBKFT 30 Days Pinky-Shreya Tablet (Folic Acid/Vitamin B Comp W-C) 0.8 Mg Tablet 1 Tab PO DAILY Tylenol (Acetaminophen) 325 Mg Capsule 650 Mg PO Q6-8HRS PRN Zantac (Ranitidine Hcl) 300 Mg Tablet 1 Tab PO QHS Compazine (Prochlorperazine Maleate) 5 Mg Tablet 5 Mg PO PRN TID PRN 10 Days [Pantoprazole] 40 MG Tablet.dr 40 Mg PO DAILYAC 30 Days Reported Zoloft (Sertraline Hcl) 50 Mg Tablet 50 Mg PO DAILY Lisinopril 20 Mg Tablet 20 Mg PO DAILY Creon Dr 6,000 Units Capsule (Lipase/Protease/Amylase) 1 Each Capsule.dr 1 Tab PO TID Proair Hfa (Albuterol Sulfate) 8.5 Gm Hfa.aer.ad 2 Puff INH BID PRN Levothyroxine Sodium 50 Mcg Tablet 1 Tab PO DAILY Clonidine Tts-2 (Clonidine) 1 Each Patch.tdwk 1 Patch TD WEEKLY Amlodipine Besylate 5 Mg Tablet 10 Mg PO DAILY Atorvastatin Calcium 40 Mg Tablet 40 Mg PO HS Latanoprost 2.5 Ml Drops 1 Drop EACHEYE HS ROS: Review of Systems Review of System REVIEW OF SYSTEMS: GENERAL: Denies weakness SKIN: No bruising, hair changes or rashes. EYES: No blurred, double or loss of vision. NOSE AND THROAT: No history of nosebleeds, hoarseness or sore throat. HEART: No history of palpitations, chest pain or shortness of breath on exertion. LUNGS: Denies cough, hemoptysis, wheezing or shortness of breath. GASTROINTESTINAL: Denies changes in appetite, nausea, vomiting, diarrhea or constipation. GENITOURINARY: No history of frequency, urgency, hesitancy or nocturia. NEUROLOGIC: Denies history of numbness, tingling, tremor or weakness. PSYCHIATRIC: No history of panic, anxiety or depression. ENDOCRINE: No history of heat or cold intolerance, polyuria or polydipsia. EXTREMITIES: Denies muscle weakness, joint pain, pain on walking or stiffness. Physical Exam: Vital Signs: Vital Signs Date Time Temp Pulse Resp B/P (MAP) Pulse Ox O2 Delivery O2 Flow Rate FiO2 12/19 10:07 97.8 75 20 149/49 (82) 93 Nasal Cannula 2.0 97.8 Physcial Exam: GEN: A little anxious complaining of pain given her nurse and hard time HEENT: Normal cephalic, atraumatic, external auditory canals are patent EYES: Extraocular muscles are intact, pupil are equally round and reactive to light and accommodation MUSCULOSKELETAL: Well developed , well nourished, good range of motion ENDOCRINE: Ny thyromegaly was palpated LYMPHATICS: No cervical chain or axillary nodes were noted HEMATOPOIETIC: No bruising NECK: Supple, no JVD, no thyromegaly was noted LUNGS: Clear to auscultation in all lung berumen without rhonchi or wheezing HEART: RRR, S!, S2 present. Peripheral pulses intact, no obvious murmurs noted ABDOMEN: Soft, nontender. Positive bowel sounds, no organomegaly, normal bowel sounds EXTREMITIES: Bilateral BKA's NEUROLOGIC: Normal speech and tone. A&O x 3,no obvious focal deficits PSYCHIATRIC: Depressed and angry SKIN: No ulcerations or rashes, good skin turgor, no jaundice VASCULAR: Good capillary refill, neurovascular bundle appears to be intact Labs: Labs: Laboratory Tests Test 03/21/19 17:15 03/22/19 00:15 03/22/19 05:54 White Blood Count 8.3 x10^3/uL (4.0-11.0) Red Blood Count 3.75 x10^6/uL (3.50-5.40) Hemoglobin 10.8 g/dL (12.0-15.5) Hematocrit 33.5 % (36.0-47.0) Mean Corpuscular Volume 89 fL (79-100) Mean Corpuscular Hemoglobin 29 pg (25-35) Mean Corpuscular Hemoglobin Concent 32 g/dL (31-37) Red Cell Distribution Width 20.9 % (11.5-14.5) Platelet Count 408 x10^3/uL (140-400) Neutrophils (%) (Auto) 75 % (31-73) Lymphocytes (%) (Auto) 16 % (24-48) Monocytes (%) (Auto) 8 % (0-9) Eosinophils (%) (Auto) 0 % (0-3) Basophils (%) (Auto) 1 % (0-3) Neutrophils # (Auto) 6.2 x10^3/uL (1.8-7.7) Lymphocytes # (Auto) 1.3 x10^3/uL (1.0-4.8) Monocytes # (Auto) 0.7 x10^3/uL (0.0-1.1) Eosinophils # (Auto) 0.0 x10^3/uL (0.0-0.7) Basophils # (Auto) 0.1 x10^3/uL (0.0-0.2) Platelet Estimate Increased (ADEQUATE) Polychromasia Hypochromasia Slight Poikilocytosis Slight Anisocytosis Mod Microcytosis Slight Target Cells Few Juanjo Cells Occ Schistocytes Occ Prothrombin Time 13.4 SEC (11.7-14.0) Prothromb Time International Ratio 1.1 (0.8-1.1) Sodium Level 138 mmol/L (136-145) 139 mmol/L (136-145) Potassium Level 7.2 mmol/L (3.5-5.1) 4.0 mmol/L (3.5-5.1) 4.8 mmol/L (3.5-5.1) Chloride Level 98 mmol/L (98-107) 99 mmol/L (98-107) Carbon Dioxide Level 26 mmol/L (21-32) 33 mmol/L (21-32) Anion Gap 14 (6-14) 7 (6-14) Blood Urea Nitrogen 55 mg/dL (7-20) 31 mg/dL (7-20) Creatinine 7.3 mg/dL (0.6-1.0) 4.9 mg/dL (0.6-1.0) Estimated GFR (Cockcroft-Gault) 7.0 11.1 BUN/Creatinine Ratio 8 (6-20) Glucose Level 102 mg/dL (70-99) 66 mg/dL (70-99) Calcium Level 9.1 mg/dL (8.5-10.1) 8.5 mg/dL (8.5-10.1) Magnesium Level 2.7 mg/dL (1.8-2.4) Total Bilirubin 0.4 mg/dL (0.2-1.0) Aspartate Amino Transf (AST/SGOT) 55 U/L (15-37) Alanine Aminotransferase (ALT/SGPT) 26 U/L (14-59) Alkaline Phosphatase 125 U/L (46-116) Troponin I Quantitative 0.053 ng/mL (0.000-0.055) 0.055 ng/mL (0.000-0.055) 0.060 ng/mL (0.000-0.055) Total Protein 7.5 g/dL (6.4-8.2) Albumin 3.4 g/dL (3.4-5.0) Albumin/Globulin Ratio 0.8 (1.0-1.7) Triglycerides Level 73 mg/dL (0-150) Cholesterol Level 137 mg/dL (0-200) LDL Cholesterol, Calculated 80 mg/dL (0-100) VLDL Cholesterol, Calculated 15 mg/dL (0-40) Non-HDL Cholesterol Calculated 95 mg/dL (0-129) HDL Cholesterol 42 mg/dL (40-60) Cholesterol/HDL Ratio 3.3 Thyroid Stimulating Hormone (TSH) 2.745 uIU/mL (0.358-3.74) Laboratory Tests Test 03/21/19 17:15 03/22/19 00:15 03/22/19 05:54 White Blood Count 8.3 x10^3/uL (4.0-11.0) Red Blood Count 3.75 x10^6/uL (3.50-5.40) Hemoglobin 10.8 g/dL (12.0-15.5) Hematocrit 33.5 % (36.0-47.0) Mean Corpuscular Volume 89 fL (79-100) Mean Corpuscular Hemoglobin 29 pg (25-35) Mean Corpuscular Hemoglobin Concent 32 g/dL (31-37) Red Cell Distribution Width 20.9 % (11.5-14.5) Platelet Count 408 x10^3/uL (140-400) Neutrophils (%) (Auto) 75 % (31-73) Lymphocytes (%) (Auto) 16 % (24-48) Monocytes (%) (Auto) 8 % (0-9) Eosinophils (%) (Auto) 0 % (0-3) Basophils (%) (Auto) 1 % (0-3) Neutrophils # (Auto) 6.2 x10^3/uL (1.8-7.7) Lymphocytes # (Auto) 1.3 x10^3/uL (1.0-4.8) Monocytes # (Auto) 0.7 x10^3/uL (0.0-1.1) Eosinophils # (Auto) 0.0 x10^3/uL (0.0-0.7) Basophils # (Auto) 0.1 x10^3/uL (0.0-0.2) Platelet Estimate Increased (ADEQUATE) Polychromasia Hypochromasia Slight Poikilocytosis Slight Anisocytosis Mod Microcytosis Slight Target Cells Few Juanjo Cells Occ Schistocytes Occ Prothrombin Time 13.4 SEC (11.7-14.0) Prothromb Time International Ratio 1.1 (0.8-1.1) Sodium Level 138 mmol/L (136-145) 139 mmol/L (136-145) Potassium Level 7.2 mmol/L (3.5-5.1) 4.0 mmol/L (3.5-5.1) 4.8 mmol/L (3.5-5.1) Chloride Level 98 mmol/L (98-107) 99 mmol/L (98-107) Carbon Dioxide Level 26 mmol/L (21-32) 33 mmol/L (21-32) Anion Gap 14 (6-14) 7 (6-14) Blood Urea Nitrogen 55 mg/dL (7-20) 31 mg/dL (7-20) Creatinine 7.3 mg/dL (0.6-1.0) 4.9 mg/dL (0.6-1.0) Estimated GFR (Cockcroft-Gault) 7.0 11.1 BUN/Creatinine Ratio 8 (6-20) Glucose Level 102 mg/dL (70-99) 66 mg/dL (70-99) Calcium Level 9.1 mg/dL (8.5-10.1) 8.5 mg/dL (8.5-10.1) Magnesium Level 2.7 mg/dL (1.8-2.4) Total Bilirubin 0.4 mg/dL (0.2-1.0) Aspartate Amino Transf (AST/SGOT) 55 U/L (15-37) Alanine Aminotransferase (ALT/SGPT) 26 U/L (14-59) Alkaline Phosphatase 125 U/L (46-116) Troponin I Quantitative 0.053 ng/mL (0.000-0.055) 0.055 ng/mL (0.000-0.055) 0.060 ng/mL (0.000-0.055) Total Protein 7.5 g/dL (6.4-8.2) Albumin 3.4 g/dL (3.4-5.0) Albumin/Globulin Ratio 0.8 (1.0-1.7) Triglycerides Level 73 mg/dL (0-150) Cholesterol Level 137 mg/dL (0-200) LDL Cholesterol, Calculated 80 mg/dL (0-100) VLDL Cholesterol, Calculated 15 mg/dL (0-40) Non-HDL Cholesterol Calculated 95 mg/dL (0-129) HDL Cholesterol 42 mg/dL (40-60) Cholesterol/HDL Ratio 3.3 Thyroid Stimulating Hormone (TSH) 2.745 uIU/mL (0.358-3.74) Assessment/Plan Assessment/Plan Severe noncompliance with dialysis Plan Discharge back to [facility] after dialysis today Follow-up PCP as needed Resume previous dialysis scheduling Resume home medicines PT OT Labs Long-term prognosis guarded ANGELINA GOMEZ III DO Mar 22, 2019 11:13
--- NOTE | 2019-03-22 13:02 | PDOC2 ---
CONSULT Date of Consult Date of Consult DATE: 03/22/19 TIME: 12:58 History of Present Illness Reason for Visit: Patient is a 58 year old female who presents with sharp mid chest pain and left below knee stump pain and shortness of breath. Patient states it's been going on for a week. Patient has not had dialysis in one week. She states she just hurts all over. She states her grandson wouldn't stay with her and help her out of the house. She rates her pain a 10 out of 10. Past Medical History Cardiovascular: CHF, HTN, Hyperlipidemia, Other (PAD) Pulmonary: Asthma CENTRAL NERVOUS SYSTEM: Periperal neuropathy GI: GERD Heme/Onc: Anemia NOS Hepatobiliary: No pertinent hx Psych: Bipolar Musculoskeletal: Other Rheumatologic: Fibromyalgia Infectious disease: No pertinent hx ENT: Allergic Rhinitis, Other (glaucoma) Renal/: Chronic renal failure Endocrine: Diabetes (2), Hypothyroidism Past Surgical History Past Surgical History: Hysterectomy, Other (bilateral BKA; LUE dilaysis fistula) Family History Family History: Hypertension Social History Quit ALCOHOL: none Drugs: None Lives: Alone Current Problem List Problem List Problems Medical Problems: (1) Hyperkalemia Status: Acute Current Medications Current Medications Current Medications Fentanyl Citrate (Fentanyl 2ml Vial) 50 mcg 1X ONCE IVP Last administered on 03/21/19at 17:54; Start 03/21/19 at 17:30; Stop 03/21/19 at 17:31; Status DC Calcium Gluconate (Calcium Gluconate) 1,000 mg 1X ONCE IVP Last administered on 03/21/19at 19:39; Start 03/21/19 at 19:00; Stop 03/21/19 at 19:04; Status DC Sodium Bicarbonate (Sodium Bicarb Adult 8.4% Syr) 50 meq 1X ONCE IV Last administered on 03/21/19at 19:39; Start 03/21/19 at 19:00; Stop 03/21/19 at 19:04; Status DC Dextrose (Dextrose 50%-Water Syringe) 25 gm 1X ONCE IV Last administered on 03/21/19at 19:39; Start 03/21/19 at 19:00; Stop 03/21/19 at 19:04; Status DC Insulin Human Regular (HumuLIN R VIAL) 10 unit 1X ONCE IV Last administered on 03/21/19at 19:42; Start 03/21/19 at 19:00; Stop 03/21/19 at 19:04; Status DC Ondansetron HCl (Zofran) 4 mg PRN Q8HRS PRN IV NAUSEA/VOMITING; Start 03/21/19 at 19:15; Stop 03/22/19 at 19:14 Fentanyl Citrate (Fentanyl 2ml Vial) 50 mcg PRN Q1HR PRN IV PAIN Last admini stered on 03/22/19 08:53; Start 03/21/19 at 19:15; Stop 03/22/19 at 19:14 Albuterol Sulfate (Ventolin Neb Soln) 2.5 mg PRN BID PRN INH SHORTNESS OF BREATH; Start 03/21/19 at 20:15 Amlodipine Besylate (Norvasc) 10 mg DAILY PO Last administered on 03/22/19 07:57; Start 03/22/19 at 09:00 Atorvastatin Calcium (Lipitor) 40 mg HS PO Last administered on 03/22/19 00:16; Start 03/21/19 at 21:00 Carvedilol (Coreg) 12.5 mg BIDWMEALS PO Last administered on 03/22/19 07:56; Start 03/21/19 at 21:00 Clonidine HCl (Catapres Tts-2) 1 patch WEEKLY TD ; Start 03/28/19 at 09:00 Clopidogrel Bisulfate (Plavix) 75 mg DAILYWBKFT PO Last administered on 03/22/19 07:56; Start 03/22/19 at 08:00 Vitamin B Complex/ Vitamin C (Pinky-Shreya) 1 tab DAILY PO Last administered on 03/22/19 07:57; Start 03/22/19 at 09:00 Guaifenesin (Robitussin Dm) 10 ml PRN Q6HRS PRN PO COUGH; Start 03/21/19 at 20:15 Hydralazine HCl (Apresoline) 25 mg TID PO Last administered on 03/22/19 07:56; Start 03/21/19 at 21:00 Acetaminophen/ Hydrocodone Bitart (Lortab 5/325) 1 tab PRN Q6HRS PRN PO MODERATE PAIN Last administered on 03/22/19 07:55; Start 03/21/19 at 20:15 Lactobacillus Rhamnosus (Culturelle) 1 cap BID PO Last administered on 12/27/19at 00:15; Start 03/21/19 at 21:00 Latanoprost (Xalatan) 1 drop HS OU ; Start 03/21/19 at 21:00 Levothyroxine Sodium (Synthroid) 50 mcg DAILY06 PO Last administered on 03/22/19at 05:28; Start 03/22/19 at 06:00 Ondansetron HCl (Zofran Odt) 4 mg PRN Q6HRS PRN PO NAUSEA; Start 03/21/19 at 20:15 Prochlorperazine Maleate (Compazine) 5 mg PRN TID PRN PO NAUSEA; Start 03/21/19 at 20:15 Sertraline HCl (Zoloft) 50 mg DAILY PO Last administered on 03/22/19at 07:57; Start 03/22/19 at 09:00 Acetaminophen (Tylenol) 650 mg PRN Q6HRS PRN PO MILD PAIN / TEMP; Start 03/21/19 at 20:30 Amylase/Lipase/ Protease (Zenpep 5,000) 1 cap TIDWMEALS PO ; Start 03/21/19 at 21:00 Pantoprazole Sodium (Protonix) 40 mg DAILYAC PO ; Start 03/22/19 at 07:30 Sodium Chloride 1,000 ml @ 1,000 mls/hr Q1H PRN IV hypotension; Start 03/21/19 at 20:48; Stop 03/22/19 at 02:47; Status DC Albumin Human 200 ml @ 200 mls/hr 1X PRN PRN IV Hypotension; Start 03/21/19 at 21:00; Stop 03/22/19 at 02:59; Status DC Sodium Chloride 1,000 ml @ 400 mls/hr Q2H30M PRN IV PATENCY; Start 03/21/19 at 20:48; Stop 03/22/19 at 08:47; Status DC Info (PHARMACY MONITORING -- do not chart) 1 each PRN DAILY PRN MC SEE COMMENTS; Start 03/21/19 at 21:00; Status UNV Info (PHARMACY MONITORING -- do not chart) 1 each PRN DAILY PRN MC SEE COMM ENTS; Start 03/21/19 at 21:00 Diphenhydramine HCl (Benadryl) 50 mg STK-MED ONCE .ROUTE ; Start 03/21/19 at 21:11; Stop 03/21/19 at 21:12; Status DC Diphenhydramine HCl (Benadryl) 25 mg 1X ONCE IVP Last administered on 03/21/19at 21:41; Start 03/21/19 at 21:45; Stop 03/21/19 at 21:46; Status DC Hydrocortisone (Proctosol-Hc) 1 herber PRN BID PRN RC INFLAMMATION; Start 9 at 10:30 Active Scripts Active Guaifenesin Dm Syrup (Guaifenesin/Dextromethorphan) 5 Ml Syrup 10 Ml PO PRN Q6HRS PRN 10 Days Ondansetron Odt (Ondansetron) 4 Mg Tab.rapdis 1 Tab PO PRN Q6-8HRS PRN Hydrocodone-Apap 5-325 (Hydrocodone Bit/Acetaminophen) 1 Tab Tablet 1 Tab PO PRN Q6HRS PRN Carvedilol (Carvedilol) 6.25 Mg Tablet 12.5 Mg PO BIDWMEALS Hydralazine Hcl 25 Mg Tablet 25 Mg PO TID Humalog (Insulin Lispro) 100 Unit/1 Ml Insuln.pen 0 Units SQ TIDWMEALS 28 Days Culturelle (Lactobacillus Rhamnosus Gg) 1 Each Cap.sprink 1 Cap PO BID 30 Days Ondansetron Odt (Ondansetron) 4 Mg Tab.rapdis 4 Mg PO PRN Q6HRS PRN 28 Days Clopidogrel (Clopidogrel Bisulfate) 75 Mg Tablet 75 Mg PO DAILYWBKFT 30 Days Pinky-Shreya Tablet (Folic Acid/Vitamin B Comp W-C) 0.8 Mg Tablet 1 Tab PO DAILY Tylenol (Acetaminophen) 325 Mg Capsule 650 Mg PO Q6-8HRS PRN Zantac (Ranitidine Hcl) 300 Mg Tablet 1 Tab PO QHS Compazine (Prochlorperazine Maleate) 5 Mg Tablet 5 Mg PO PRN TID PRN 10 Days [Pantoprazole] 40 MG Tablet.dr 40 Mg PO DAILYAC 30 Days Reported Zoloft (Sertraline Hcl) 50 Mg Tablet 50 Mg PO DAILY Lisinopril 20 Mg Tablet 20 Mg PO DAILY Creon Dr 6,000 Units Capsule (Lipase/Protease/Amylase) 1 Each Capsule.dr 1 Tab PO TID Proair Hfa (Albuterol Sulfate) 8.5 Gm Hfa.aer.ad 2 Puff INH BID PRN Levothyroxine Sodium 50 Mcg Tablet 1 Tab PO DAILY Clonidine Tts-2 (Clonidine) 1 Each Patch.tdwk 1 Patch TD WEEKLY Amlodipine Besylate 5 Mg Tablet 10 Mg PO DAILY Atorvastatin Calcium 40 Mg Tablet 40 Mg PO HS Latanoprost 2.5 Ml Drops 1 Drop EACHEYE HS Allergies Allergies: Coded Allergies: No Known Drug Allergies (Unverified , 02/27/19) ROS Review of System Per HPI Physical Exam Physical Exam General: NAD HEENT: PERRLA, OM moist Neck Supple Lungs: dec BS , Non labored Heart: S1S2, RRR, n Abdomen: Normal bowel sounds, Soft, No tenderness, No Calvillo Extremities: No clubbing, No cyanosis, No edema, 4th and 5th digit amputated, RT BKA) Skin: No breakdown Neuro- Grossly Normal Vital Signs Vital Signs Date Time Temp Pulse Resp B/P (MAP) Pulse Ox O2 Delivery O2 Flow Rate FiO2 03/22/19 10:07 97.8 75 20 149/49 (82) 93 Nasal Cannula 2.0 97.8 Assessment & Plan ESRD - On HD MWF Dialyzed emergently last night at presentation to the ER with hyperkalemia and Vol overload Missed 1 week of HD0 chronic Non compliance ACcess- AV access lt arm HyperKalemia- at presentation - Non complaince with HD and diet- Missed 1 week of HD Emergent HD last night , Normal K this am AVG placed in September 2018 at [facility] - Left upper arm brachial artery to brachial vein arterial to venous graft placement using PTFE graft. Chronic severe Non compliance with Dialysis as OP as well during hospi talizations- leaves AMA Severe peripheral arterial disease Diabetes w peripheral neuropathy Anemia - ARLIN per Protocol for Hgb <10 Congestive heart failure with systolic and diastolic dysfunction - had a stress test recently at [facility] that was without evidence of ischemia. DC planning per primary Labs Labs Laboratory Tests Test 03/21/19 17:15 03/22/19 00:15 03/22/19 05:54 White Blood Count 8.3 x10^3/uL (4.0-11.0) Red Blood Count 3.75 x10^6/uL (3.50-5.40) Hemoglobin 10.8 g/dL (12.0-15.5) Hematocrit 33.5 % (36.0-47.0) Mean Corpuscular Volume 89 fL (79-100) Mean Corpuscular Hemoglobin 29 pg (25-35) Mean Corpuscular Hemoglobin Concent 32 g/dL (31-37) Red Cell Distribution Width 20.9 % (11.5-14.5) Platelet Count 408 x10^3/uL (140-400) Neutrophils (%) (Auto) 75 % (31-73) Lymphocytes (%) (Auto) 16 % (24-48) Monocytes (%) (Auto) 8 % (0-9) Eosinophils (%) (Auto) 0 % (0-3) Basophils (%) (Auto) 1 % (0-3) Neutrophils # (Auto) 6.2 x10^3/uL (1.8-7.7) Lymphocytes # (Auto) 1.3 x10^3/uL (1.0-4.8) Monocytes # (Auto) 0.7 x10^3/uL (0.0-1.1) Eosinophils # (Auto) 0.0 x10^3/uL (0.0-0.7) Basophils # (Auto) 0.1 x10^3/uL (0.0-0.2) Platelet Estimate Increased (ADEQUATE) Polychromasia Hypochromasia Slight Poikilocytosis Slight Anisocytosis Mod Microcytosis Slight Target Cells Few Juanjo Cells Occ Schistocytes Occ Prothrombin Time 13.4 SEC (11.7-14.0) Prothromb Time International Ratio 1.1 (0.8-1.1) Sodium Level 138 mmol/L (136-145) 139 mmol/L (136-145) Potassium Level 7.2 mmol/L (3.5-5.1) 4.0 mmol/L (3.5-5.1) 4.8 mmol/L (3.5-5.1) Chloride Level 98 mmol/L (98-107) 99 mmol/L (98-107) Carbon Dioxide Level 26 mmol/L (21-32) 33 mmol/L (21-32) Anion Gap 14 (6-14) 7 (6-14) Blood Urea Nitrogen 55 mg/dL (7-20) 31 mg/dL (7-20) Creatinine 7.3 mg/dL (0.6-1.0) 4.9 mg/dL (0.6-1.0) Estimated GFR (Cockcroft-Gault) 7.0 11.1 BUN/Creatinine Ratio 8 (6-20) Glucose Level 102 mg/dL (70-99) 66 mg/dL (70-99) Calcium Level 9.1 mg/dL (8.5-10.1) 8.5 mg/dL (8.5-10.1) Magnesium Level 2.7 mg/dL (1.8-2.4) Total Bilirubin 0.4 mg/dL (0.2-1.0) Aspartate Amino Transf (AST/SGOT) 55 U/L (15-37) Alanine Aminotransferase (ALT/SGPT) 26 U/L (14-59) Alkaline Phosphatase 125 U/L (46-116) Troponin I Quantitative 0.053 ng/mL (0.000-0.055) 0.055 ng/mL (0.000-0.055) 0.060 ng/mL (0.000-0.055) Total Protein 7.5 g/dL (6.4-8.2) Albumin 3.4 g/dL (3.4-5.0) Albumin/Globulin Ratio 0.8 (1.0-1.7) Triglycerides Level 73 mg/dL (0-150) Cholesterol Level 137 mg/dL (0-200) LDL Cholesterol, Calculated 80 mg/dL (0-100) VLDL Cholesterol, Calculated 15 mg/dL (0-40) Non-HDL Cholesterol Calculated 95 mg/dL (0-129) HDL Cholesterol 42 mg/dL (40-60) Cholesterol/HDL Ratio 3.3 Thyroid Stimulating Hormone (TSH) 2.745 uIU/mL (0.358-3.74) Laboratory Tests Test 03/21/19 17:15 03/22/19 00:15 03/22/19 05:54 White Blood Count 8.3 x10^3/uL (4.0-11.0) Red Blood Count 3.75 x10^6/uL (3.50-5.40) Hemoglobin 10.8 g/dL (12.0-15.5) Hematocrit 33.5 % (36.0-47.0) Mean Corpuscular Volume 89 fL (79-100) Mean Corpuscular Hemoglobin 29 pg (25-35) Mean Corpuscular Hemoglobin Concent 32 g/dL (31-37) Red Cell Distribution Width 20.9 % (11.5-14.5) Platelet Count 408 x10^3/uL (140-400) Neutrophils (%) (Auto) 75 % (31-73) Lymphocytes (%) (Auto) 16 % (24-48) Monocytes (%) (Auto) 8 % (0-9) Eosinophils (%) (Auto) 0 % (0-3) Basophils (%) (Auto) 1 % (0-3) Neutrophils # (Auto) 6.2 x10^3/uL (1.8-7.7) Lymphocytes # (Auto) 1.3 x10^3/uL (1.0-4.8) Monocytes # (Auto) 0.7 x10^3/uL (0.0-1.1) Eosinophils # (Auto) 0.0 x10^3/uL (0.0-0.7) Basophils # (Auto) 0.1 x10^3/uL (0.0-0.2) Platelet Estimate Increased (ADEQUATE) Polychromasia Hypochromasia Slight Poikilocytosis Slight Anisocytosis Mod Microcytosis Slight Target Cells Few Juanjo Cells Occ Schistocytes Occ Prothrombin Time 13.4 SEC (11.7-14.0) Prothromb Time International Ratio 1.1 (0.8-1.1) Sodium Level 138 mmol/L (136-145) 139 mmol/L (136-145) Potassium Level 7.2 mmol/L (3.5-5.1) 4.0 mmol/L (3.5-5.1) 4.8 mmol/L (3.5-5.1) Chloride Level 98 mmol/L (98-107) 99 mmol/L (98-107) Carbon Dioxide Level 26 mmol/L (21-32) 33 mmol/L (21-32) Anion Gap 14 (6-14) 7 (6-14) Blood Urea Nitrogen 55 mg/dL (7-20) 31 mg/dL (7-20) Creatinine 7.3 mg/dL (0.6-1.0) 4.9 mg/dL (0.6-1.0) Estimated GFR (Cockcroft-Gault) 7.0 11.1 BUN/Creatinine Ratio 8 (6-20) Glucose Level 102 mg/dL (70-99) 66 mg/dL (70-99) Calcium Level 9.1 mg/dL (8.5-10.1) 8.5 mg/dL (8.5-10.1) Magnesium Level 2.7 mg/dL (1.8-2.4) Total Bilirubin 0.4 mg/dL (0.2-1.0) Aspartate Amino Transf (AST/SGOT) 55 U/L (15-37) Alanine Aminotransferase (ALT/SGPT) 26 U/L (14-59) Alkaline Phosphatase 125 U/L (46-116) Troponin I Quantitative 0.053 ng/mL (0.000-0.055) 0.055 ng/mL (0.000-0.055) 0.060 ng/mL (0.000-0.055) Total Protein 7.5 g/dL (6.4-8.2) Albumin 3.4 g/dL (3.4-5.0) Albumin/Globulin Ratio 0.8 (1.0-1.7) Triglycerides Level 73 mg/dL (0-150) Cholesterol Level 137 mg/dL (0-200) LDL Cholesterol, Calculated 80 mg/dL (0-100) VLDL Cholesterol, Calculated 15 mg/dL (0-40) Non-HDL Cholesterol Calculated 95 mg/dL (0-129) HDL Cholesterol 42 mg/dL (40-60) Cholesterol/HDL Ratio 3.3 Thyroid Stimulating Hormone (TSH) 2.745 uIU/mL (0.358-3.74) Review All relevant outside records, renal labs, imaging studies, telemetry/EKG's were reviewed. DOMINIQUE TSE MD Mar 22, 2019 13:02
[2019-03-22] MEDS ORDERED: IV NORMAL SALINE 1000ML BAG 1,000 ML IV PRN ×2 (13:46)
[2019-03-22] MEDS ORDERED: ALBUMIN HUMAN 25% 200 ML IV PRN (14:00)
[2019-03-22] MEDS ORDERED: diphenhydrAMINE 50 MG/ML VIAL IV PRN ×2 (14:00)
[2019-03-22] MEDS ORDERED: DIALYSIS PATIENT. MC PRN ×2 (14:00)
[2019-03-22 19:14] VITALS: BP 150/67
[2019-03-22] MEDS: LATANOPROST 0.005% OPHTH SOLUTION 2.5ML BOTTLE. OU SCH (21:06)
[2019-03-22] MEDS: ALPRAZolam 0.25 MG TABLET PO PRN (21:44)
[2019-03-22] MEDS: ZOLPIDEM 5 MG TABLET. PO PRN (21:44)
[2019-03-22 22:56] VITALS: BP 164/72
[2019-03-23 03:29] VITALS: BP 174/70
[2019-03-23] MEDS: HYDROcodone/APAP 5/325MG 1 TAB TABLET PO PRN ×4 (03:42→23:00)
[2019-03-23] MEDS: LEVOTHYROXINE 50 MCG TABLET PO SCH (06:25)
[2019-03-23 07:00] VITALS: BP 147/62
[2019-03-23] MEDS: CARVEDILOL 12.5 MG TABLET. PO SCH ×2 (07:44→16:48)
[2019-03-23] MEDS: ALPRAZolam 0.25 MG TABLET PO PRN (07:44)
[2019-03-23] MEDS: hydrALAZINE 25 MG TABLET PO SCH ×3 (07:44→21:33)
[2019-03-23] MEDS: amLODIPine BESYLATE 10 MG TABLET PO SCH (07:45)
[2019-03-23] MEDS: PANTOPRAZOLE 40 MG TABLET.DR. PO SCH (07:45)
[2019-03-23] MEDS: FOLIC/VIT B COMP W-C (RENAL) TABLET. PO SCH (07:45)
[2019-03-23] MEDS: SERTRALINE 50 MG TABLET. PO SCH (07:45)
[2019-03-23] MEDS: CLOPIDOGREL BISULFATE 75 MG TABLET PO SCH (07:45)
[2019-03-23] MEDS: LACTOBACILLUS RHAMNOSUS GG 1 CAPSULE. PO SCH ×2 (09:00→21:33)
[2019-03-23 11:00] VITALS: BP 120/53
[2019-03-23] MEDS ORDERED: fentaNYL PF VIAL 100 MCG/2 ML VIAL IVP PRN (11:30)
--- NOTE | 2019-03-23 11:57 | PDOC ---
PROGRESS NOTES Chief Complaint Chief Complaint 1. Atypical chest pain: MSK reproducible 2. Mildly elevated trop: at 0.06. No significant EKG changes, demand mediated with renal insufficiency and uncontrolled HTN 3. Acute on chronic diastolic CHF: SOA better 4. Accelerated HTN: labile 5. Anasarca 6. Gluteal pain: complains of hemorrhoids acting up worse with cough. defer to PCP 7. Noncompliance: missed dialysis, no transport. Suspect missed meds as well. 8. Hx of severe LE PAD: S/P bilateral BKA. more recent to left leg, incision intact with stables. 9. ESRD with hyperkalemia: better after HD 10. Debility History of Present Illness History of Present Illness Asleep, well known to me, i did not awaken MSK CP -cleared from acrds BUt i am keeping bec she needs SNU, came form home,and SW not here weekend If we dc weekend, she will just be back again SHe is bilateral BKA, depressed sec to med illness and has anti depressant on file PLAN; SW, PT OT I ordered today monday (Was not ordered) COnt local wound care Add her home ambien and xanax OK to t.o to non tele floor dw MAGALY davalos Vitals Vitals Vital Signs Date Time Temp Pulse Resp B/P (MAP) Pulse Ox O2 Delivery O2 Flow Rate FiO2 03/23/19 10:20 98 Nasal Cannula 2.0 03/23/19 07:45 69 147/62 03/23/19 07:00 98.7 16 98.7 Physical Exam General: Alert, Oriented X3, Cooperative, No acute distress Lungs: Clear, Wheezing, Other Abdomen: Soft, Other (Lower abd tenderness with palpation) Extremities: No cyanosis, Other (bilateral BKA) Skin: No breakdown Labs LABS Laboratory Tests Test 03/22/19 15:30 Troponin I Quantitative 0.030 ng/mL (0.000-0.055) Review of Systems Review of Systems asleep i did not awaken Assessment and Plan Assessmemt and Plan Problems Medical Problems: (1) Hyperkalemia Status: Acute Comment Review of Relevant I have reviewed the following items pamela (where applicable) has been applied. Labs Laboratory Tests Test 03/21/19 17:15 03/22/19 00:15 03/22/19 05:54 03/22/19 15:30 White Blood Count 8.3 x10^3/uL (4.0-11.0) Red Blood Count 3.75 x10^6/uL (3.50-5.40) Hemoglobin 10.8 g/dL (12.0-15.5) Hematocrit 33.5 % (36.0-47.0) Mean Corpuscular Volume 89 fL (79-100) Mean Corpuscular Hemoglobin 29 pg (25-35) Mean Corpuscular Hemoglobin Concent 32 g/dL (31-37) Red Cell Distribution Width 20.9 % (11.5-14.5) Platelet Count 408 x10^3/uL (140-400) Neutrophils (%) (Auto) 75 % (31-73) Lymphocytes (%) (Auto) 16 % (24-48) Monocytes (%) (Auto) 8 % (0-9) Eosinophils (%) (Auto) 0 % (0-3) Basophils (%) (Auto) 1 % (0-3) Neutrophils # (Auto) 6.2 x10^3/uL (1.8-7.7) Lymphocytes # (Auto) 1.3 x10^3/uL (1.0-4.8) Monocytes # (Auto) 0.7 x10^3/uL (0.0-1.1) Eosinophils # (Auto) 0.0 x10^3/uL (0.0-0.7) Basophils # (Auto) 0.1 x10^3/uL (0.0-0.2) Platelet Estimate Increased (ADEQUATE) Polychromasia Hypochromasia Slight Poikilocytosis Slight Anisocytosis Mod Microcytosis Slight Target Cells Few Juanjo Cells Occ Schistocytes Occ Prothrombin Time 13.4 SEC (11.7-14.0) Prothromb Time International Ratio 1.1 (0.8-1.1) Sodium Level 138 mmol/L (136-145) 139 mmol/L (136-145) Potassium Level 7.2 mmol/L (3.5-5.1) 4.0 mmol/L (3.5-5.1) 4.8 mmol/L (3.5-5.1) Chloride Level 98 mmol/L (98-107) 99 mmol/L (98-107) Carbon Dioxide Level 26 mmol/L (21-32) 33 mmol/L (21-32) Anion Gap 14 (6-14) 7 (6-14) Blood Urea Nitrogen 55 mg/dL (7-20) 31 mg/dL (7-20) Creatinine 7.3 mg/dL (0.6-1.0) 4.9 mg/dL (0.6-1.0) Estimated GFR (Cockcroft-Gault) 7.0 11.1 BUN/Creatinine Ratio 8 (6-20) Glucose Level 102 mg/dL (70-99) 66 mg/dL (70-99) Calcium Level 9.1 mg/dL (8.5-10.1) 8.5 mg/dL (8.5-10.1) Magnesium Level 2.7 mg/dL (1.8-2.4) Total Bilirubin 0.4 mg/dL (0.2-1.0) Aspartate Amino Transf (AST/SGOT) 55 U/L (15-37) Alanine Aminotransferase (ALT/SGPT) 26 U/L (14-59) Alkaline Phosphatase 125 U/L (46-116) Troponin I Quantitative 0.053 ng/mL (0.000-0.055) 0.055 ng/mL (0.000-0.055) 0.060 ng/mL (0.000-0.055) 0.030 ng/mL (0.000-0.055) Total Protein 7.5 g/dL (6.4-8.2) Albumin 3.4 g/dL (3.4-5.0) Albumin/Globulin Ratio 0.8 (1.0-1.7) Triglycerides Level 73 mg/dL (0-150) Cholesterol Level 137 mg/dL (0-200) LDL Cholesterol, Calculated 80 mg/dL (0-100) VLDL Cholesterol, Calculated 15 mg/dL (0-40) Non-HDL Cholesterol Calculated 95 mg/dL (0-129) HDL Cholesterol 42 mg/dL (40-60) Cholesterol/HDL Ratio 3.3 Thyroid Stimulating Hormone (TSH) 2.745 uIU/mL (0.358-3.74) Laboratory Tests Test 03/22/19 15:30 Troponin I Quantitative 0.030 ng/mL (0.000-0.055) Medications Current Medications Fentanyl Citrate (Fentanyl 2ml Vial) 50 mcg 1X ONCE IVP Last administered on 03/21/19 17:54; Start 03/21/19 at 17:30; Stop 03/21/19 at 17:31; Status DC Calcium Gluconate (Calcium Gluconate) 1,000 mg 1X ONCE IVP Last administered on 03/21/19 19:39; Start 03/21/19 at 19:00; Stop 03/21/19 at 19:04; Status DC Sodium Bicarbonate (Sodium Bicarb Adult 8.4% Syr) 50 meq 1X ONCE IV Last administered on 03/21/19 19:39; Start 03/21/19 at 19:00; Stop 03/21/19 at 1 9:04; Status DC Dextrose (Dextrose 50%-Water Syringe) 25 gm 1X ONCE IV Last administered on 03/21/19 19:39; Start 03/21/19 at 19:00; Stop 03/21/19 at 19:04; Status DC Insulin Human Regular (HumuLIN R VIAL) 10 unit 1X ONCE IV Last administered on 03/21/19at 19:42; Start 03/21/19 at 19:00; Stop 03/21/19 at 19:04; Status DC Ondansetron HCl (Zofran) 4 mg PRN Q8HRS PRN IV NAUSEA/VOMITING; Start 03/21/19 at 19:15; Stop 03/22/19 at 19:14; Status DC Fentanyl Citrate (Fentanyl 2ml Vial) 50 mcg PRN Q1HR PRN IV PAIN Last administered on 03/22/19at 18:11; Start 03/21/19 at 19:15; Stop 03/22/19 at 19:14; Status DC Albuterol Sulfate (Ventolin Neb Soln) 2.5 mg PRN BID PRN INH SHORTNESS OF BREATH; Start 03/21/19 at 20:15 Amlodipine Besylate (Norvasc) 10 mg DAILY PO Last administered on 03/23/19at 07:45; Start 03/22/19 at 09:00 Atorvastatin Calcium (Lipitor) 40 mg HS PO Last administered on 03/22/19at 21:06; Start 03/21/19 at 21:00 Carvedilol (Coreg) 12.5 mg BIDWMEALS PO Last administered on 03/23/19at 07:44; Start 03/21/19 at 21:00 Clonidine HCl (Catapres Tts-2) 1 patch WEEKLY TD ; Start 03/28/19 at 09:00 Clopidogrel Bisulfate (Plavix) 75 mg DAILYWBKFT PO Last administered on 03/23/19 07:45; Start 03/22/19 at 08:00 Vitamin B Complex/ Vitamin C (Pinky-Shreya) 1 tab DAILY PO Last administered on 03/23/19 07:45; Start 03/22/19 at 09:00 Guaifenesin (Robitussin Dm) 10 ml PRN Q6HRS PRN PO COUGH; Start 03/21/19 at 20:15 Hydralazine HCl (Apresoline) 25 mg TID PO Last administered on 03/23/19 07:44 ; Start 03/21/19 at 21:00 Acetaminophen/ Hydrocodone Bitart (Lortab 5/325) 1 tab PRN Q6HRS PRN PO MODERATE PAIN Last administered on 03/23/19 09:21; Start 03/21/19 at 20:15 Lactobacillus Rhamnosus (Culturelle) 1 cap BID PO Last administered on 21:06; Start 03/21/19 at 21:00 Latanoprost (Xalatan) 1 drop HS OU Last administered on 03/22/19 21:06; Start 03/21/19 at 21:00 Levothyroxine Sodium (Synthroid) 50 mcg DAILY06 PO Last administered on 03/23/19 06:25; Start 03/22/19 at 06:00 Ondansetron HCl (Zofran Odt) 4 mg PRN Q6HRS PRN PO NAUSEA; Start 03/21/19 at 20:15 Prochlorperazine Maleate (Compazine) 5 mg PRN TID PRN PO NAUSEA; Start 03/21/19 at 20:15 Sertraline HCl (Zoloft) 50 mg DAILY PO Last administered on 03/23/19 07:45; Start 03/22/19 at 09:00 Acetaminophen (Tylenol) 650 mg PRN Q6HRS PRN PO MILD PAIN / TEMP; Start 03/21/19 at 20:30 Amylase/Lipase/ Protease (Zenpep 5,000) 1 cap TIDWMEALS PO Last administered on 12/28/19at 07:45; Start 03/21/19 at 21:00 Pantoprazole Sodium (Protonix) 40 mg DAILYAC PO Last administered on 03/23/19at 07:45; Start 03/22/19 at 07:30 Sodium Chloride 1,000 ml @ 1,000 mls/hr Q1H PRN IV hypotension; Start 03/21/19 at 20:48; Stop 03/22/19 at 02:47; Status DC Albumin Human 200 ml @ 200 mls/hr 1X PRN PRN IV Hypotension; Start 03/21/19 at 21:00; Stop 03/22/19 at 02:59; Status DC Sodium Chloride 1,000 ml @ 400 mls/hr Q2H30M PRN IV PATENCY; Start 03/21/19 at 20:48; Stop 03/22/19 at 08:47; Status DC Info (PHARMACY MONITORING -- do not chart) 1 each PRN DAILY PRN MC SEE COMMENTS; Start 03/21/19 at 21:00; Status UNV Info (PHARMACY MONITORING -- do not chart) 1 each PRN DAILY PRN MC SEE COMMENTS; Start 03/21/19 at 21:00 Diphenhydramine HCl (Benadryl) 50 mg STK-MED ONCE .ROUTE ; Start 03/21/19 at 21:11; Stop 03/21/19 at 21:12; Status DC Diphenhydramine HCl (Benadryl) 25 mg 1X ONCE IVP Last administered on at 21:41; Start 03/21/19 at 21:45; Stop 03/21/19 at 21:46; Status DC Hydrocortisone (Proctosol-Hc) 1 herber PRN BID PRN RC INFLAMMATION; Start 03/22/19 at 10:30 Sodium Chloride 1,000 ml @ 1,000 mls/hr Q1H PRN IV hypotension; Start 03/22/19 at 13:46; Stop 03/22/19 at 19:45; Status DC Albumin Human 200 ml @ 200 mls/hr 1X PRN PRN IV Hypotension; Start 03/22/19 at 14:00; Stop 03/22/19 at 19:59; Status DC Diphenhydramine HCl (Benadryl) 25 mg 1X PRN PRN IV ITCHING; Start 03/22/19 at 14:00; Stop 03/22/19 at 23:00; Status DC Diphenhydramine HCl (Benadryl) 25 mg 1X PRN PRN IV ITCHING; Start 03/22/19 at 14:00; Stop 03/22/19 at 23:00; Status DC Sodium Chloride 1,000 ml @ 400 mls/hr Q2H30M PRN IV PATENCY; Start 03/22/19 at 13:46; Stop 03/23/19 at 01:45; Status DC Info (PHARMACY MONITORING -- do not chart) 1 each PRN DAILY PRN MC SEE COMMENTS; Start 03/22/19 at 14:00; Status UNV Info (PHARMACY MONITORING -- do not chart) 1 each PRN DAILY PRN MC SEE COMMENTS; Start 03/22/19 at 14:00; Status UNV Alprazolam (Xanax) 0.25 mg PRN Q8HRS PRN PO ANXIETY / AGITATION Last administered on 03/23/19at 07:44; Start 03/22/19 at 21:30 Zolpidem Tartrate (Ambien) 5 mg PRN QHS PRN PO INSOMNIA Last administered on 03/22/19at 21:44; Start 03/22/19 at 21:30 Fentanyl Citrate (Fentanyl 2ml Vial) 25 mcg PRN Q2HR PRN IVP MODERATE TO SEVERE PAIN; Start 03/23/19 at 11:30 Active Scripts Active Guaifenesin Dm Syrup (Guaifenesin/Dextromethorphan) 5 Ml Syrup 10 Ml PO PRN Q6HRS PRN 10 Days Ondansetron Odt (Ondansetron) 4 Mg Tab.rapdis 1 Tab PO PRN Q6-8HRS PRN Hydrocodone-Apap 5-325 (Hydrocodone Bit/Acetaminophen) 1 Tab Tablet 1 Tab PO PRN Q6HRS PRN Carvedilol (Carvedilol) 6.25 Mg Tablet 12.5 Mg PO BIDWMEALS Hydralazine Hcl 25 Mg Tablet 25 Mg PO TID Humalog (Insulin Lispro) 100 Unit/1 Ml Insuln.pen 0 Units SQ TIDWMEALS 28 Days Culturelle (Lactobacillus Rhamnosus Gg) 1 Each Cap.sprink 1 Cap PO BID 30 Days Ondansetron Odt (Ondansetron) 4 Mg Tab.rapdis 4 Mg PO PRN Q6HRS PRN 28 Days Clopidogrel (Clopidogrel Bisulfate) 75 Mg Tablet 75 Mg PO DAILYWBKFT 30 Days Pinky-Shreya Tablet (Folic Acid/Vitamin B Comp W-C) 0.8 Mg Tablet 1 Tab PO DAILY Tylenol (Acetaminophen) 325 Mg Capsule 650 Mg PO Q6-8HRS PRN Zantac (Ranitidine Hcl) 300 Mg Tablet 1 Tab PO QHS Compazine (Prochlorperazine Maleate) 5 Mg Tablet 5 Mg PO PRN TID PRN 10 Days [Pantoprazole] 40 MG Tablet.dr 40 Mg PO DAILYAC 30 Days Reported Zoloft (Sertraline Hcl) 50 Mg Tablet 50 Mg PO DAILY Lisinopril 20 Mg Tablet 20 Mg PO DAILY Creon Dr 6,000 Units Capsule (Lipase/Protease/Amylase) 1 Each Capsule.dr 1 Tab PO TID Proair Hfa (Albuterol Sulfate) 8.5 Gm Hfa.aer.ad 2 Puff INH BID PRN Levothyroxine Sodium 50 Mcg Tablet 1 Tab PO DAILY Clonidine Tts-2 (Clonidine) 1 Each Patch.tdwk 1 Patch TD WEEKLY Amlodipine Besylate 5 Mg Tablet 10 Mg PO DAILY Atorvastatin Calcium 40 Mg Tablet 40 Mg PO HS Latanoprost 2.5 Ml Drops 1 Drop EACHEYE HS Vitals/I & O Vital Sign - Last 24 Hours 03/22/19 03/22/19 03/22/19 03/22/19 12:51 13:21 18:10 18:10 Pulse 73 73 Resp 18 18 B/P (MAP) 149/49 149/59 Pulse Ox 93 93 O2 Delivery Nasal Cannula Nasal Cannula O2 Flow Rate 2.0 2.0 03/22/19 03/22/19 03/22/19 03/22/19 18:11 19:14 19:23 19:29 Temp 98.0 98.0 Pulse 68 Resp 18 16 18 B/P (MAP) 150/67 (94) Pulse Ox 93 99 O2 Delivery Nasal Cannula Nasal Cannula Room Air Nasal Cannula O2 Flow Rate 2.0 2.0 2.0 03/22/19 03/22/19 03/22/19 03/23/19 20:30 21:06 22:56 03:29 Temp 98.1 98.1 Pulse 68 68 69 Resp 16 16 16 B/P (MAP) 150/67 164/72 (102) 174/70 (104) Pulse Ox 98 96 O2 Delivery Nasal Cannula Nasal Cannula Room Air O2 Flow Rate 2.0 2.0 2.0 03/23/19 03/23/19 03/23/19 03/23/19 03:42 04:45 07:00 07:44 Temp 98.7 98.7 Pulse 66 69 Resp 18 18 16 B/P (MAP) 147/62 (90) 147/62 Pulse Ox 98 O2 Delivery Nasal Cannula Nasal Cannula Nasal Cannula O2 Flow Rate 2.0 2.0 2.0 03/23/19 03/23/19 03/23/19 03/23/19 07:44 07:45 07:50 09:21 Pulse 69 69 B/P (MAP) 147/62 147/62 Pulse Ox 98 O2 Delivery Nasal Cannula Nasal Cannula O2 Flow Rate 2.0 2.0 03/23/19 10:20 Pulse Ox 98 O2 Delivery Nasal Cannula O2 Flow Rate 2.0 Intake and Output 03/22/19 03/22/19 03/23/19 15:00 23:00 07:00 Intake Total 880 ml Balance 880 ml PRABHAKAR MOSQUERA MD Mar 23, 2019 11:57
--- NOTE | 2019-03-23 14:30 | NUR ---
PATIENT TELE OFF. PATIENT AND PATIENTS BELONGINGS WITH PATIENT. PATIENT TRANSFERRED BY BED TO ROOM 567 BY THIS RN. MAGALY ELIZABETH NOTIFIED OF PATIENT IN ROOM. PATIENTS CALL [facility] PHONE IN REACH. PATIENT ON 2L OF OXYGEN. PATIENT STABLE AT TIME OF TRANSFER.
[2019-03-23 15:00] VITALS: BP 118/40
--- NOTE | 2019-03-23 15:05 | PDOC ---
Renal-Progress Notes Subjective Notes Notes LESS SOB History of Present Illness Hx of present illness IMPROVED Vitals Vitals Vital Signs Date Time Temp Pulse Resp B/P (MAP) Pulse Ox O2 Delivery O2 Flow Rate FiO2 03/23/19 12:26 61 120/53 03/23/19 11:00 97.3 16 Nasal Cannula 2.0 97.3 03/23/19 10:20 98 Weight Weight [ ] I.O. Intake and Output Intake and Output 03/23/19 07:00 Intake Total 880 ml Balance 880 ml Intake Oral 880 ml # Voids 1 # Bowel Movements 4 Labs Labs Laboratory Tests Test 03/22/19 15:30 Troponin I Quantitative 0.030 ng/mL (0.000-0.055) Review of Systems Constitutional: yes: alert, oriented Ears/Nose/Throat: Yes: no symptom reported Eyes: Yes: no symptom reported Pulmonary: Yes no symptom reported, Yes dyspnea Cardiovascular: Yes no symptom reported Gastrointestional: Yes: no symptom reported Genitourinary: Yes: no symptom reported Musculoskeletal: Yes: no symptom reported Skin: Yes no symptom reported Psychiatric/Neurological: Yes: no symptom reported Endocrine: Yes: no symptom reported Physical Exam General Appearance: no apparent distress Skin: warm Respiratory: decreased breath sounds Heart: S1S2 Abdomen: soft Genitourinary: bladder flat Extremities: pulses present Neurology: alert Musculoskeletal: Other Assessment Assessment IMP [id number] ESRD NON COMPLIANCE HYPERKALEMIA-BETTER ANEMIA PLAN HD MWF ENC COMPLIANCE ARLIN WHEN HGB LESS THAN 10 WILL FOLLOW BENY PAINTER MD Mar 23, 2019 15:05
--- NOTE | 2019-03-23 15:15 | NUR ---
Patient found smoking in room per [employer], patient was confronted and stated she was smoking, cigarettes and patriot missile air defense artillery were confiscated and placed in a bag and in the medicine room. Patient was educated on why it is importance to not smoke in a hospital especially when patient was on oxygen. Patient stated she understood and did not complain.
[2019-03-23 19:00] VITALS: BP 144/41
[2019-03-23] MEDS: LATANOPROST 0.005% OPHTH SOLUTION 2.5ML BOTTLE. OU SCH (21:32)
[2019-03-23] MEDS: ATORVASTATIN CALCIUM 40 MG TABLET. PO SCH (21:33)
[2019-03-23 23:00] VITALS: BP 144/52
[2019-03-24 03:00] VITALS: BP 124/75
[2019-03-24] MEDS: LEVOTHYROXINE 50 MCG TABLET PO SCH (05:41)
[2019-03-24] MEDS: HYDROcodone/APAP 5/325MG 1 TAB TABLET PO PRN ×3 (05:41→18:12)
[2019-03-24 07:00] VITALS: BP 155/48
[2019-03-24] MEDS: FOLIC/VIT B COMP W-C (RENAL) TABLET. PO SCH (08:37)
[2019-03-24] MEDS: PANTOPRAZOLE 40 MG TABLET.DR. PO SCH (08:38)
[2019-03-24] MEDS: CLOPIDOGREL BISULFATE 75 MG TABLET PO SCH (08:38)
[2019-03-24] MEDS: LACTOBACILLUS RHAMNOSUS GG 1 CAPSULE. PO SCH ×2 (08:38→20:32)
[2019-03-24] MEDS: hydrALAZINE 25 MG TABLET PO SCH ×3 (08:38→20:32)
[2019-03-24] MEDS: CARVEDILOL 12.5 MG TABLET. PO SCH ×2 (08:39→18:11)
[2019-03-24] MEDS: SERTRALINE 50 MG TABLET. PO SCH (08:39)
[2019-03-24] MEDS: amLODIPine BESYLATE 10 MG TABLET PO SCH (08:41)
--- NOTE | 2019-03-24 08:49 | PDOC ---
PROGRESS NOTES Chief Complaint Chief Complaint Atypical chest pain - costochondritis Mildly elevated trop: at 0.06. No significant EKG changes, demand mediated with renal insufficiency and uncontrolled HTN Acute on chronic diastolic CHF: SOA better Accelerated HTN: labile Anasarca Gluteal pain: complains of hemorrhoids acting up worse with cough. defer to PCP Noncompliance: missed dialysis, no transport. Suspect missed meds as well. Hx of severe LE PAD: S/P bilateral BKA. more recent to left leg, incision intact with stables. ESRD with hyperkalemia: better after HD Debility History of Present Illness History of Present Illness She is bilateral BKA, depressed sec to med illness. 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 She is tearful, feels her staple line has pain in L BKA and is asking for fentanyl. States her mother told her she needs dialysis today. PLAN; SW, PT OT Cont local wound care dw RN Vitals Vitals Vital Signs Date Time Temp Pulse Resp B/P (MAP) Pulse Ox O2 Delivery O2 Flow Rate FiO2 03/24/19 08:41 68 155/48 03/24/19 07:00 98.0 17 93 Room Air 98.0 03/24/19 05:41 2.0 Physical Exam General: Alert, Oriented X3, Cooperative, No acute distress Lungs: Clear, Wheezing, Other Abdomen: Soft, Other (Lower abd tenderness with palpation) Extremities: No cyanosis, Other (bilateral BKA) Skin: No breakdown Assessment and Plan Assessmemt and Plan Problems Medical Problems: (1) Hyperkalemia Status: Acute Comment Review of Relevant I have reviewed the following items pamela (where applicable) has been applied. Labs Laboratory Tests Test 03/22/19 15:30 Troponin I Quantitative 0.030 ng/mL (0.000-0.055) Medications Current Medications Fentanyl Citrate (Fentanyl 2ml Vial) 50 mcg 1X ONCE IVP Last administered on 03/21/19at 17:54; Start 03/21/19 at 17:30; Stop 03/21/19 at 17:31; Status DC Calcium Gluconate (Calcium Gluconate) 1,000 mg 1X ONCE IVP Last administered on 03/21/19at 19:39; Start 03/21/19 at 19:00; Stop 03/21/19 at 19:04; Status DC Sodium Bicarbonate (Sodium Bicarb Adult 8.4% Syr) 50 meq 1X ONCE IV Last administered on 03/21/19 19:39; Start 03/21/19 at 19:00; Stop 03/21/19 at 19:04; Status DC Dextrose (Dextrose 50%-Water Syringe) 25 gm 1X ONCE IV Last administered on 03/21/19 19:39; Start 03/21/19 at 19:00; Stop 03/21/19 at 19:04; Status DC Insulin Human Regular (HumuLIN R VIAL) 10 unit 1X ONCE IV Last administered on 03/21/19 19:42; Start 03/21/19 at 19:00; Stop 03/21/19 at 19:04; Status DC Ondansetron HCl (Zofran) 4 mg PRN Q8HRS PRN IV NAUSEA/VOMITING; Start 03/21/19 at 19:15; Stop 03/22/19 at 19:14; Status DC Fentanyl Citrate (Fentanyl 2ml Vial) 50 mcg PRN Q1HR PRN IV PAIN Last administered on 03/22/19 18:11; Start 03/21/19 at 19:15; Stop 03/22/19 at 19:14; Status DC Albuterol Sulfate (Ventolin Neb Soln) 2.5 mg PRN BID PRN INH SHORTNESS OF BREATH; Start 03/21/19 at 20:15 Amlodipine Besylate (Norvasc) 10 mg DAILY PO Last administered on 03/24/19 08:41; Start 03/22/19 at 09:00 Atorvastatin Calcium (Lipitor) 40 mg HS PO Last administered on 03/23/19at 21:33; Start 03/21/19 at 21:00 Carvedilol (Coreg) 12.5 mg BIDWMEALS PO Last administered on 03/24/19 08:39; Start 03/21/19 at 21:00 Clonidine HCl (Catapres Tts-2) 1 patch WEEKLY TD ; Start 03/28/19 at 09:00 Clopidogrel Bisulfate (Plavix) 75 mg DAILYWBKFT PO Last administered on 03/24/19 08:38; Start 03/22/19 at 08:00 Vitamin B Complex/ Vitamin C (Pinky-Shreya) 1 tab DAILY PO Last administered on 03/24/19 08:37; Start 03/22/19 at 09:00 Guaifenesin (Robitussin Dm) 10 ml PRN Q6HRS PRN PO COUGH; Start 03/21/19 at 20:15 Hydralazine HCl (Apresoline) 25 mg TID PO Last administered on 03/24/19 08:38; Start 03/21/19 at 21:00 Acetaminophen/ Hydrocodone Bitart (Lortab 5/325) 1 tab PRN Q6HRS PRN PO MODERATE PAIN Last administered on 03/24/19 05:41; Start 03/21/19 at 20:15 Lactobacillus Rhamnosus (Culturelle) 1 cap BID PO Last administered on 03/24/19 08:38; Start 03/21/19 at 21:00 Latanoprost (Xalatan) 1 drop HS OU Last administered on 03/23/19 21:32; Start 03/21/19 at 21:00 Levothyroxine Sodium (Synthroid) 50 mcg DAILY06 PO Last administered on 03/24/19 05:41; Start 03/22/19 at 06:00 Ondansetron HCl (Zofran Odt) 4 mg PRN Q6HRS PRN PO NAUSEA; Start 03/21/19 at 20:15 Prochlorperazine Maleate (Compazine) 5 mg PRN TID PRN PO NAUSEA 2ND CHOICE; Start 03/21/19 at 20:15 Sertraline HCl (Zoloft) 50 mg DAILY PO Last administered on 03/24/19 08:39; Start 03/22/19 at 09:00 Acetaminophen (Tylenol) 650 mg PRN Q6HRS PRN PO MILD PAIN / TEMP; Start 03/21/19 at 20:30 Amylase/Lipase/ Protease (Zenpep 5,000) 1 cap TIDWMEALS PO Last administered on 03/24/19 08:37; Start 03/21/19 at 21:00 Pantoprazole Sodium (Protonix) 40 mg DAILYAC PO Last administered on 03/24/19 08:38; Start 03/22/19 at 07:30 Sodium Chloride 1,000 ml @ 1,000 mls/hr Q1H PRN IV hypotension; Start 03/21/19 at 20:48; Stop 03/22/19 at 02:47; Status DC Albumin Human 200 ml @ 200 mls/hr 1X PRN PRN IV Hypotension; Start 03/21/19 at 21:00; Stop 03/22/19 at 02:59; Status DC Sodium Chloride 1,000 ml @ 400 mls/hr Q2H30M PRN IV PATENCY; Start 03/21/19 at 20:48; Stop 03/22/19 at 08:47; Status DC Info (PHARMACY MONITORING -- do not chart) 1 each PRN DAILY PRN MC SEE COMMENTS; Start 03/21/19 at 21:00; Status UNV Info (PHARMACY MONITORING -- do not chart) 1 each PRN DAILY PRN MC SEE COMMENTS; Start 03/21/19 at 21:00 Diphenhydramine HCl (Benadryl) 50 mg STK-MED ONCE .ROUTE ; Start 03/21/19 at 21:11; Stop 03/21/19 at 21:12; Status DC Diphenhydramine HCl (Benadryl) 25 mg 1X ONCE IVP Last administered on 03/21/19at 21:41; Start 03/21/19 at 21:45; Stop 03/21/19 at 21:46; Status DC Hydrocortisone (Proctosol-Hc) 1 herber PRN BID PRN RC INFLAMMATION; Start 03/22/19 at 10:30 Sodium Chloride 1,000 ml @ 1,000 mls/hr Q1H PRN IV hypotension; Start 03/22/19 at 13:46; Stop 03/22/19 at 19:45; Status DC Albumin Human 200 ml @ 200 mls/hr 1X PRN PRN IV Hypotension; Start 03/22/19 at 14:00; Stop 03/22/19 at 19:59; Status DC Diphenhydramine HCl (Benadryl) 25 mg 1X PRN PRN IV ITCHING; Start 03/22/19 at 14:00; Stop 03/22/19 at 23:00; Status DC Diphenhydramine HCl (Benadryl) 25 mg 1X PRN PRN IV ITCHING; Start 03/22/19 at 14:00; Stop 03/22/19 at 23:00; Status DC Sodium Chloride 1,000 ml @ 400 mls/hr Q2H30M PRN IV PATENCY; Start 03/22/19 at 13:46; Stop 03/23/19 at 01:45; Status DC Info (PHARMACY MONITORING -- do not chart) 1 each PRN DAILY PRN MC SEE COMMENTS; Start 03/22/19 at 14:00; Status UNV Info (PHARMACY MONITORING -- do not chart) 1 each PRN DAILY PRN MC SEE COMMENTS; Start 03/22/19 at 14:00; Status UNV Alprazolam (Xanax) 0.25 mg PRN Q8HRS PRN PO ANXIETY / AGITATION Last administered on 03/23/19at 07:44; Start 03/22/19 at 21:30 Zolpidem Tartrate (Ambien) 5 mg PRN QHS PRN PO INSOMNIA Last administered on 03/22/19at 21:44; Start 03/22/19 at 21:30 Fentanyl Citrate (Fentanyl 2ml Vial) 25 mcg PRN Q2HR PRN IVP MODERATE TO SEVERE PAIN; Start 03/23/19 at 11:30 Active Scripts Active Guaifenesin Dm Syrup (Guaifenesin/Dextromethorphan) 5 Ml Syrup 10 Ml PO PRN Q6HRS PRN 10 Days Ondansetron Odt (Ondansetron) 4 Mg Tab.rapdis 1 Tab PO PRN Q6-8HRS PRN Hydrocodone-Apap 5-325 (Hydrocodone Bit/Acetaminophen) 1 Tab Tablet 1 Tab PO PRN Q6HRS PRN Carvedilol (Carvedilol) 6.25 Mg Tablet 12.5 Mg PO BIDWMEALS Hydralazine Hcl 25 Mg Tablet 25 Mg PO TID Humalog (Insulin Lispro) 100 Unit/1 Ml Insuln.pen 0 Units SQ TIDWMEALS 28 Days Culturelle (Lactobacillus Rhamnosus Gg) 1 Each Cap.sprink 1 Cap PO BID 30 Days Ondansetron Odt (Ondansetron) 4 Mg Tab.rapdis 4 Mg PO PRN Q6HRS PRN 28 Days Clopidogrel (Clopidogrel Bisulfate) 75 Mg Tablet 75 Mg PO DAILYWBKFT 30 Days Pinky-Shreya Tablet (Folic Acid/Vitamin B Comp W-C) 0.8 Mg Tablet 1 Tab PO DAILY Tylenol (Acetaminophen) 325 Mg Capsule 650 Mg PO Q6-8HRS PRN Zantac (Ranitidine Hcl) 300 Mg Tablet 1 Tab PO QHS Compazine (Prochlorperazine Maleate) 5 Mg Tablet 5 Mg PO PRN TID PRN 10 Days [Pantoprazole] 40 MG Tablet. 40 Mg PO DAILYAC 30 Days Reported Zoloft (Sertraline Hcl) 50 Mg Tablet 50 Mg PO DAILY Lisinopril 20 Mg Tablet 20 Mg PO DAILY Shante Knowles 6,000 Units Capsule (Lipase/Protease/Amylase) 1 Each Capsule. 1 Tab PO TID Proair Hfa (Albuterol Sulfate) 8.5 Gm Hfa.aer.ad 2 Puff INH BID PRN Levothyroxine Sodium 50 Mcg Tablet 1 Tab PO DAILY Clonidine Tts-2 (Clonidine) 1 Each Patch.tdwk 1 Patch TD WEEKLY Amlodipine Besylate 5 Mg Tablet 10 Mg PO DAILY Atorvastatin Calcium 40 Mg Tablet 40 Mg PO HS Latanoprost 2.5 Ml Drops 1 Drop EACHEYE HS Vitals/I & O Vital Sign - Last 24 Hours 03/23/19 03/23/19 03/23/19 03/23/19 09:21 10:20 11:00 12:26 Temp 97.3 97.3 Pulse 61 61 Resp 16 B/P (MAP) 120/53 (75) 120/53 Pulse Ox 98 98 O2 Delivery Nasal Cannula Nasal Cannula Nasal Cannula O2 Flow Rate 2.0 2.0 2.0 03/23/19 03/23/19 03/23/19 03/23/19 15:00 16:10 16:48 17:32 Temp 97.7 97.7 Pulse 72 68 Resp 16 B/P (MAP) 118/40 (66) 122/36 Pulse Ox 93 O2 Delivery Room Air Nasal Cannula Nasal Cannula O2 Flow Rate 2.0 2.0 03/23/19 03/23/19 03/23/19 03/23/19 19:00 20:00 21:33 23:00 Temp 96.4 96.4 Pulse 64 64 Resp 18 B/P (MAP) 144/41 (75) 144/41 Pulse Ox 91 91 O2 Delivery Room Air Nasal Cannula Nasal Cannula O2 Flow Rate 2.0 2.0 03/23/19 03/24/19 03/24/19 03/24/19 23:00 03:00 05:41 07:00 Temp 98.2 96.5 98.0 98.2 96.5 98.0 Pulse 65 70 68 Resp 18 18 17 B/P (MAP) 144/52 (82) 124/75 (91) 155/48 (83) Pulse Ox 92 96 96 93 O2 Delivery Room Air Room Air Nasal Cannula Room Air O2 Flow Rate 2.0 03/24/19 03/24/19 03/24/19 08:38 08:39 08:41 Pulse 68 68 68 B/P (MAP) 155/48 155/48 155/48 Intake and Output 03/23/19 03/23/19 03/24/19 15:00 23:00 07:00 Intake Total 360 ml 120 ml Balance 360 ml 120 ml FELI SHAH MD Mar 24, 2019 08:49
[2019-03-24 11:00] VITALS: BP 159/52
[2019-03-24 15:00] VITALS: BP 148/54
[2019-03-24] MEDS: ALPRAZolam 0.25 MG TABLET PO PRN (15:31)
[2019-03-24] MEDS: fentaNYL PF VIAL 100 MCG/2 ML VIAL IVP PRN (15:34)
--- NOTE | 2019-03-24 16:16 | PDOC ---
Renal-Progress Notes Subjective Notes Notes NO NEW COMPLAINTS History of Present Illness Hx of present illness NO CHANGES Vitals Vitals Vital Signs Date Time Temp Pulse Resp B/P (MAP) Pulse Ox O2 Delivery O2 Flow Rate FiO2 03/24/19 15:34 20 Room Air 94.0 03/24/19 15:32 68 148/54 03/24/19 15:00 97.9 94 97.9 Weight Weight [ ] I.O. Intake and Output Intake and Output 03/24/19 07:00 Intake Total 480 ml Balance 480 ml Intake Oral 480 ml # Voids 1 # Bowel Movements 4 Review of Systems Constitutional: yes: alert, oriented Ears/Nose/Throat: Yes: no symptom reported Eyes: Yes: no symptom reported Pulmonary: Yes no symptom reported, Yes dyspnea Cardiovascular: Yes no symptom reported Gastrointestional: Yes: no symptom reported Genitourinary: Yes: no symptom reported Musculoskeletal: Yes: no symptom reported Skin: Yes no symptom reported Psychiatric/Neurological: Yes: no symptom reported Endocrine: Yes: no symptom reported Physical Exam General Appearance: no apparent distress Skin: warm Respiratory: decreased breath sounds Heart: S1S2 Abdomen: soft Genitourinary: bladder flat Extremities: pulses present Neurology: alert Musculoskeletal: Other Assessment Assessment IMP [id number] ESRD NON COMPLIANCE HYPERKALEMIA-BETTER ANEMIA PLAN HD TOMORROW ENC COMPLIANCE ARLIN WHEN HGB LESS THAN 10 WILL FOLLOW BENY PAINTER MD Mar 24, 2019 16:16
--- NOTE | 2019-03-24 17:13 | CARD ---
MR#: [id number] Date of Study: 03/24/2019 Ordering Physician: ALLISON NASCIMENTO, Referring Physician: ALLISON NASCIMENTO, Tech: Margo Hansen MARIA VICTORIA APPROVED REPORT EXAM: Two-dimensional and M-mode echocardiogram with Doppler and color Doppler. Other Information Quality : GoodHR: 60bpm Rhythm : NSR INDICATION Congestive Heart Failure 2D DIMENSIONS RVDd2.3 (2.9-3.5cm)Left Atrium(2D)3.9 (1.6-4.0cm) IVSd2.1 (0.7-1.1cm)Aortic Root(2D)2.8 (2.0-3.7cm) LVDd4.8 (3.9-5.9cm)LVOT Diameter2.0 (1.8-2.4cm) PWd1.7 (0.7-1.1cm)LVDs3.5 (2.5-4.0cm) FS (%) 27.0 %SV57.0 ml LVEF(%)54.0 (>50%) M-Mode DIMENSIONS Left Atrium(MM)3.84 (2.5-4.0cm)Aortic Root3.09 (2.2-3.7cm) Aortic Valve AoV Peak Saleem.175.4cm/sAoV VTI29.0cm AO Peak GR.12.3mmHgLVOT VTI 18.17cm AO Mean GR.6mmHgAVA (VTI)2.00cm2 Mitral Valve MV E Ueqfsipq523.6cm/sMV E Peak Gr.6mmHg MV DECEL [id number] A Nzopdyex18.0cm/s MV E Mean Gr.2mmHgE/A Ratio1.5 MV A [id number] Tricuspid Valve TR P. Ysynimzk144ov/sRAP [id number] TR Peak Gr.41duFcIHHX30xtFl LEFT VENTRICLE The left ventricle is normal size. There is moderate concentric left ventricular hypertrophy. The lef t ventricular systolic function is normal and the ejection fraction is within normal range. The Eject ion Fraction is 50-55%. There is normal LV segmental wall motion. Transmitral Doppler flow pattern is Grade III-reversible restrictive diastolic dysfunction. RIGHT VENTRICLE The right ventricle is normal size. There is normal right ventricular wall thickness. The right ventr icular systolic function is normal. ATRIA The left atrium size is normal. The right atrium size is normal. The interatrial septum is intact wit h no evidence for an atrial septal defect or patent foramen ovale as noted on 2-D or Doppler imaging. AORTIC VALVE The aortic valve is mildly calcified. The aortic valve is trileaflet. Doppler and Color Flow revealed no significant aortic regurgitation. There is no significant aortic valvular stenosis. There is no a ortic valvular vegetation. MITRAL VALVE The mitral valve is thickened but opens well. There is no evidence of mitral valve prolapse. There is no mitral valve stenosis. Doppler and Color-flow revealed trace to mild mitral regurgitation. TRICUSPID VALVE The tricuspid valve is normal in structure and function. Doppler and Color Flow revealed trace to mil d tricuspid regurgitation. The PA pressure was estimated at 25 mmHg. There is no tricuspid valve prol apse or vegetation. There is no tricuspid valve stenosis. PULMONIC VALVE The pulmonary valve is normal in structure and function. Doppler and Color Flow revealed no pulmonic valvular regurgitation. There is no pulmonic valvular stenosis. GREAT VESSELS The aortic root is normal in size. The ascending aorta is normal in size. The IVC is normal in size a nd collapses >50% with inspiration. PERICARDIAL EFFUSION There is a trace circumferential pericardial effusion with no hemodynamic significance. Critical Notification Critical Value: No <Conclusion> The left ventricle is normal size. The left ventricular systolic function is normal and the ejection fraction is within normal range. The Ejection Fraction is 50-55%. There is moderate concentric left ventricular hypertrophy. Doppler and Color Flow revealed no significant aortic regurgitation. There is no significant aortic valvular stenosis. Doppler and Color-flow revealed trace to mild mitral regurgitation. Doppler and Color Flow revealed trace to mild tricuspid regurgitation. The PA pressure was estimated at 25 mmHg. Signed by : Gary Rivas MD Electronically Approved : 03/24/2019 17:12:47
[2019-03-24 19:00] VITALS: BP 117/37
[2019-03-24] MEDS: ATORVASTATIN CALCIUM 40 MG TABLET. PO SCH (20:33)
[2019-03-24] MEDS: LATANOPROST 0.005% OPHTH SOLUTION 2.5ML BOTTLE. OU SCH (20:34)
[2019-03-24 22:50] VITALS: BP 151/51
[2019-03-25 03:00] VITALS: BP 144/61
[2019-03-25] MEDS: fentaNYL PF VIAL 100 MCG/2 ML VIAL IVP PRN ×2 (03:36→15:39)
[2019-03-25] MEDS: LEVOTHYROXINE 50 MCG TABLET PO SCH (05:19)
[2019-03-25] MEDS: HYDROcodone/APAP 5/325MG 1 TAB TABLET PO PRN ×3 (05:19→18:06)
[2019-03-25] MEDS: FOLIC/VIT B COMP W-C (RENAL) TABLET. PO SCH (09:00)
[2019-03-25] MEDS: LACTOBACILLUS RHAMNOSUS GG 1 CAPSULE. PO SCH ×2 (09:00→22:47)
[2019-03-25] MEDS: SERTRALINE 50 MG TABLET. PO SCH (09:00)
--- NOTE | 2019-03-25 10:00 | NUR ---
SW following. Discussed with RN. SW met with pt, to discuss placement. Pt stating she is agreeable however then refused to work with therapy. Pt told SW "I need my cigarettes because I'm going to go outside to smoke". Pt requested wheelchair from therapy and then refused to get in it. Pt asked SW to leave. RN notified.
--- NOTE | 2019-03-25 10:59 | PDOC ---
[facility] PROGRESS NOTE Chief Complaint Chief Complaint ESRD Acute on chronic diastolic CHF Accelerated HTN Anasarca Severe LE PAD: S/P bilateral BKA. more recent to left leg, incision intact with stables History of Present Illness History of Present Illness 03/25/19 Pt seen and examined DW pt regarding their care DW RN and physical therapists Reviewed pt's chart Vitals/I&O Vitals/I&O: Vital Signs Date Time Temp Pulse Resp B/P (MAP) Pulse Ox O2 Delivery O2 Flow Rate FiO2 03/25/19 08:00 Nasal Cannula 2.0 03/25/19 06:33 18 03/25/19 03:00 98.0 62 144/61 (88) 95 98.0 I & O 03/24/19 03/24/19 03/25/19 15:00 23:00 07:00 Intake Total 600 ml 300 ml 240 ml Output Total 0 ml Balance 600 ml 300 ml 240 ml Physical Exam General: Alert, Oriented X3, Cooperative, No acute distress Heart: Regular rate, Normal S1, Normal S2 Lungs: Clear, Wheezing, Other Abdomen: Soft, Other (Lower abd tenderness with palpation) Extremities: No clubbing, No cyanosis, Other (bilateral BKA) Skin: No breakdown, No significant lesion Review of Systems Review of Systems: No c/o of double vision No SOB Assessment and Plan Assessmemt and Plan Problems Medical Problems: (1) Hyperkalemia Status: Acute Assessment ESRD Acute on chronic diastolic CHF Accelerated HTN Anasarca Severe LE PAD: S/P bilateral BKA. more recent to left leg, incision intact with stables Plan HD today Wound care PRN narcotics Labs DVT Prophylaxis PT/OT Home meds Full code Appreciate subspecialist input Probable d/c to SNU Comment Review of Relevant I have reviewed the following items pamela (where applicable) has been applied. Medications: Current Medications Medications (Trade) Dose Ordered Sig/Clarence Route PRN Reason Start Time Stop Time Status Last Admin Dose Admin Fentanyl Citrate (Fentanyl 2ml Vial) 25 mcg PRN Q12HR PRN IVP MODERATE TO SEVERE PAIN 03/24/19 14:15 03/25/19 03:36 ANGELINA GOMEZ III DO Mar 25, 2019 10:59
[2019-03-25] MEDS: PANTOPRAZOLE 40 MG TABLET.DR. PO SCH (11:24)
[2019-03-25] MEDS: hydrALAZINE 25 MG TABLET PO SCH ×3 (11:24→22:53)
[2019-03-25] MEDS: CARVEDILOL 12.5 MG TABLET. PO SCH ×2 (11:25→16:49)
[2019-03-25] MEDS: amLODIPine BESYLATE 10 MG TABLET PO SCH (11:25)
[2019-03-25] MEDS: CLOPIDOGREL BISULFATE 75 MG TABLET PO SCH (11:25)
--- NOTE | 2019-03-25 11:54 | SNU/HH DC ---
DISCHARGE ORDERS DISCHARGE INFORMATION: FINAL DIAGNOSIS Problems Medical Problems: (1) Hyperkalemia Status: Acute CONDITION ON DISCHARGE: Stable CODE STATUS: Code Status: Full HALF-WAY: SNF STAY <30 DAYS: Yes HOSPICE: HOSPICE: No HOSPICE EVAL & TREAT: No LTAC: ADMIT TO LTAC: No POST DISCHARGE ORDERS: ACTIVITY ORDERS: Activity as tolerated WEIGHT BEARING STATUS: As tolerated BATHING ORDERS: Shower-keep dressing dry, No Tub Bath until see DIET AFTER DISCHARGE: Renal WOUND/INCISION CARE: Keep wound/cast CDI CHECKS AFTER DISCHARGE: CHECKS AFTER DISCHARGE: Check blood press - daily, Check your Temp as needed TREATMENT/EQUIPMENT ORDERS: ADAPTIVE EQUIPMENT NEEDED: Wheelchair RESPIRATORY EQUIPMENT NEEDED: Oxygen Physical Therapy For: Evalulation/Treatment Occupational Therapy For: Evaluation/Treatment Speech Language Pathology For: Evaluation/Treatment DISCHARGE MEDICATIONS: Home Meds Active Scripts Guaifenesin/Dextromethorphan (GUAIFENESIN DM SYRUP) 5 Ml Syrup, 10 ML PO PRN Q6HRS PRN for COUGH for 10 Days, #120 MISC Prov:SANGEETHA MUELLER MD 02/12/19 Ondansetron (ONDANSETRON ODT) 4 Mg Tab.rapdis, 1 TAB PO PRN Q6-8HRS PRN for NAUSEA, #16 TAB Prov:MARQUISE ZAMBRANO DO 01/30/19 Hydrocodone Bit/Acetaminophen (HYDROCODONE-APAP 5-325 ) 1 Tab Tablet, 1 TAB PO PRN Q6HRS PRN for MODERATE PAIN, #30 TAB Prov:PRABHAKAR MOSQUERA MD 01/29/19 Carvedilol (CARVEDILOL ) 6.25 Mg Tablet, 12.5 MG PO BIDWMEALS for htn, #60 TAB Prov:PRABHAKAR MOSQUERA MD 01/29/19 Hydralazine Hcl (HYDRALAZINE HCL) 25 Mg Tablet, 25 MG PO TID for htn, #10 TAB Prov:PRABHAKAR MOSQUERA MD 01/29/19 Insulin Lispro (HUMALOG) 100 Unit/1 Ml Insuln.pen, 0 UNITS SQ TIDWMEALS for glucose for 28 Days, #3 EACH Prov:SANGEETHA MUELLER MD 12/26/18 Lactobacillus Rhamnosus Gg (CULTURELLE) 1 Each Cap.sprink, 1 CAP PO BID for supplement for 30 Days, #60 CAP Prov:SANGEETHA MUELLER MD 12/26/18 Ondansetron (ONDANSETRON ODT) 4 Mg Tab.rapdis, 4 MG PO PRN Q6HRS PRN for NAUSEA/VOMITING 1ST CHOICE for 28 Days, #30 TAB Prov:SANGEETHA MUELLER MD 12/26/18 Clopidogrel Bisulfate (CLOPIDOGREL) 75 Mg Tablet, 75 MG PO DAILYWBKFT for pvd for 30 Days, #30 TAB Prov:SANGEETHA MUELLER MD 12/26/18 Folic Acid/Vitamin B Comp W-C (JOSE GUADALUPE-TORY TABLET) 0.8 Mg Tablet, 1 TAB PO DAILY for esrd, #30 TAB Prov:PRABHAKAR MOSQUERA MD 12/10/18 Acetaminophen (Tylenol) 325 Mg Capsule, 650 MG PO Q6-8HRS PRN for PAIN, #20 CAP Prov:KIMBERLY DONOHUE MD 11/14/18 Ranitidine Hcl (ZANTAC) 300 Mg Tablet, 1 TAB PO QHS for reflux, #90 TAB 3 Refills Prov:DANIELA ALMAZAN DO 08/29/18 Prochlorperazine Maleate (Compazine) 5 Mg Tablet, 5 MG PO PRN TID PRN for NAUSEA for 10 Days, #30 TAB Prov:FELI SHAH MD 08/26/18 [Pantoprazole] 40 MG TABLET. No Conflict Check, 40 MG PO DAILYAC for GERD for 30 Days, #30 2 Refills Prov:FELI SHAH MD 03/07/18 Reported Medications Sertraline Hcl (ZOLOFT) 50 Mg Tablet, 50 MG PO DAILY for ANTI-DEPRESSANT, TAB 0 Refills 05/27/18 Lisinopril (LISINOPRIL) 20 Mg Tablet, 20 MG PO DAILY for FOR HYPERTENSION, TAB 0 Refills 05/27/18 Lipase/Protease/Amylase (ELVIA [place] 6,000 UNITS CAPSULE) 1 Each Capsule., 1 TAB PO TID for digestion 04/23/18 Albuterol Sulfate (Proair Hfa) 8.5 Gm Hfa.aer.ad, 2 PUFF INH BID PRN for SHORTNESS OF BREATH, INHALER 03/22/18 Levothyroxine Sodium (LEVOTHYROXINE SODIUM) 50 Mcg Tablet, 1 TAB PO DAILY for thyroid, #30 TAB 5 Refills 03/22/18 Clonidine (CLONIDINE TTS-2 ) 1 Each Patch.tdwk, 1 PATCH TD WEEKLY for blood pressure, PATCH 03/22/18 Amlodipine Besylate (AMLODIPINE BESYLATE) 5 Mg Tablet, 10 MG PO DAILY for blood pressure 12/05/17 Atorvastatin Calcium (ATORVASTATIN CALCIUM) 40 Mg Tablet, 40 MG PO HS for cholesterol 12/05/17 Latanoprost (LATANOPROST) 2.5 Ml Drops, 1 DROP EACHEYE HS 09/24/17 ANGELINA GOMEZ III DO Mar 25, 2019 11:54
[2019-03-25] MEDS ORDERED: IV NORMAL SALINE 1000ML BAG 1,000 ML IV PRN ×2 (11:56)
[2019-03-25] MEDS ORDERED: 0.9 % SODIUM CHLORIDE 10 ML DISP.SYRIN. IV PRN ×2 (12:00)
[2019-03-25] MEDS ORDERED: ALBUMIN HUMAN 25% 200 ML IV PRN (12:00)
[2019-03-25] MEDS ORDERED: DIALYSIS PATIENT. MC PRN ×2 (12:00)
--- NOTE | 2019-03-25 16:01 | PDOC ---
Renal-Progress Notes Subjective Notes Notes NO NEW COMPLAINTS History of Present Illness Hx of present illness STABLE Vitals Vitals Vital Signs Date Time Temp Pulse Resp B/P (MAP) Pulse Ox O2 Delivery O2 Flow Rate FiO2 03/25/19 15:39 95 Nasal Cannula 2.0 03/25/19 11:25 65 167/45 03/25/19 06:33 18 03/25/19 03:00 98.0 98.0 Weight Weight [ ] I.O. Intake and Output Intake and Output 03/25/19 07:00 Intake Total 1140 ml Output Total 0 ml Balance 1140 ml Intake Oral 1140 ml Output Urine Total 0 ml # Bowel Movements 2 Review of Systems Constitutional: yes: alert, oriented Ears/Nose/Throat: Yes: no symptom reported Eyes: Yes: no symptom reported Pulmonary: Yes no symptom reported, Yes dyspnea Cardiovascular: Yes no symptom reported Gastrointestional: Yes: no symptom reported Genitourinary: Yes: no symptom reported Musculoskeletal: Yes: no symptom reported Skin: Yes no symptom reported Psychiatric/Neurological: Yes: no symptom reported Endocrine: Yes: no symptom reported Physical Exam General Appearance: no apparent distress Skin: warm Respiratory: decreased breath sounds Heart: S1S2 Abdomen: soft Genitourinary: bladder flat Extremities: pulses present Neurology: alert Musculoskeletal: Other Assessment Assessment IMP [id number] ESRD NON COMPLIANCE HYPERKALEMIA-BETTER ANEMIA PLAN HD TODAY UF TO DW ENC COMPLIANCE ARLIN WHEN HGB LESS THAN 10 WILL FOLLOW BENY PAINTER MD Mar 25, 2019 16:01
--- NOTE | 2019-03-25 16:03 | NUR ---
patient was to discharge to SNF this shift, patient refused to work with PT and OT at beginning of shift and refusing to go to SNF. Patient was then educated that she would have to return home then. Family called and voiced concerns of her returning home by herself. Family did arrive to hospital and spoke with them in regards that she has to be willing to work with PT and OT while she is here at the hospital so we can send a referral over to SNF, and if she unwilling to work with them and refusing to go we can not force the patient. Patient did agree to work with PT and OT, case manger was notified.
[2019-03-25 19:00] VITALS: BP 105/46
[2019-03-25] MEDS ORDERED: fentaNYL 50MCG/HR PATCH 1 PATCH PATCH.TD72 TD SCH (21:00)
[2019-03-25] MEDS: ATORVASTATIN CALCIUM 40 MG TABLET. PO SCH (22:47)
[2019-03-25] MEDS: LATANOPROST 0.005% OPHTH SOLUTION 2.5ML BOTTLE. OU SCH (22:47)
[2019-03-25 23:20] VITALS: BP 137/44
[2019-03-26] MEDS: HYDROcodone/APAP 5/325MG 1 TAB TABLET PO PRN ×5 (00:25→23:53)
[2019-03-26 03:00] VITALS: BP 122/67
[2019-03-26] MEDS: LEVOTHYROXINE 50 MCG TABLET PO SCH (06:16)
[2019-03-26 07:00] VITALS: BP 189/49
[2019-03-26] MEDS: hydrALAZINE 25 MG TABLET PO SCH ×3 (08:53→21:31)
[2019-03-26] MEDS: CLOPIDOGREL BISULFATE 75 MG TABLET PO SCH (08:53)
[2019-03-26] MEDS: PANTOPRAZOLE 40 MG TABLET.DR. PO SCH (08:53)
[2019-03-26] MEDS: SERTRALINE 50 MG TABLET. PO SCH (08:53)
[2019-03-26] MEDS: CARVEDILOL 12.5 MG TABLET. PO SCH ×2 (08:54→17:23)
[2019-03-26] MEDS: LACTOBACILLUS RHAMNOSUS GG 1 CAPSULE. PO SCH ×2 (08:54→21:31)
[2019-03-26] MEDS: amLODIPine BESYLATE 10 MG TABLET PO SCH (08:55)
[2019-03-26] MEDS: FOLIC/VIT B COMP W-C (RENAL) TABLET. PO SCH (08:55)
[2019-03-26 11:00] VITALS: BP 129/42
[2019-03-26] MEDS: diphenhydrAMINE 50 MG/ML VIAL IVP PRN ×2 (13:14→20:29)
--- NOTE | 2019-03-26 13:53 | PDOC ---
[facility] PROGRESS NOTE Chief Complaint Chief Complaint ESRD Acute on chronic diastolic CHF Accelerated HTN Anasarca Severe LE PAD: S/P bilateral BKA. more recent to left leg, incision intact with stables History of Present Illness History of Present Illness 03/25/19 Pt seen and examined DW pt regarding their care DW RN and physical therapists Reviewed pt's chart 03/26/19 Pt seen and examined Vitals/I&O Vitals/I&O: Vital Signs Date Time Temp Pulse Resp B/P (MAP) Pulse Ox O2 Delivery O2 Flow Rate FiO2 03/26/19 12:22 97 Room Air 2.0 03/26/19 11:00 97.1 63 16 129/42 (71) 97.1 I & O 03/25/19 03/25/19 03/26/19 15:00 23:00 07:00 Intake Total 350 ml 210 ml Balance 350 ml 210 ml Physical Exam General: Alert, Oriented X3, Cooperative, No acute distress Heart: Regular rate, Normal S1, Normal S2 Lungs: Clear, Wheezing, Other Abdomen: Soft, Other (Lower abd tenderness with palpation) Extremities: No clubbing, No cyanosis, Other (bilateral BKA) Skin: No breakdown, No significant lesion Assessment and Plan Assessmemt and Plan Problems Medical Problems: (1) Hyperkalemia Status: Acute ESRD Acute on chronic diastolic CHF Accelerated HTN Anasarca Severe LE PAD: S/P bilateral BKA. more recent to left leg, incision intact with stables Plan HD Labs IV antibx Home meds Wound Long-term prognosis guarded Discharge disposition pending I would like to send her to [facility] or long-term care if case management can arrange ? This is a very difficult case the patient keeps changing her mind about what she wants to do. Appreciate case management help Comment Review of Relevant I have reviewed the following items pamela (where applicable) has been applied. Medications: Current Medications Medications (Trade) Dose Ordered Sig/Clarence Route PRN Reason Start Time Stop Time Status Last Admin Dose Admin Fentanyl (Duragesic 50mcg/ Hr Patch) 1 patch Q72H TD 03/25/19 21:00 03/25/19 22:46 Diphenhydramine HCl (Benadryl) 25 mg PRN Q6HRS PRN IVP ITCHING 03/26/19 13:15 03/26/19 13:14 ANGELINA GOMEZ III DO Mar 26, 2019 13:53
--- NOTE | 2019-03-26 16:05 | PDOC ---
Renal-Progress Notes Subjective Notes Notes NO NEW COMPLAINTS History of Present Illness Hx of present illness STABLE Vitals Vitals Vital Signs Date Time Temp Pulse Resp B/P (MAP) Pulse Ox O2 Delivery O2 Flow Rate FiO2 03/26/19 12:22 97 Room Air 2.0 03/26/19 11:00 97.1 63 16 129/42 (71) 97.1 Weight Weight [ ] I.O. Intake and Output Intake and Output 03/26/19 07:00 Intake Total 560 ml Balance 560 ml Intake Oral 560 ml # Bowel Movements 1 Review of Systems Constitutional: yes: alert, oriented Ears/Nose/Throat: Yes: no symptom reported Eyes: Yes: no symptom reported Pulmonary: Yes no symptom reported, Yes dyspnea Cardiovascular: Yes no symptom reported Gastrointestional: Yes: no symptom reported Genitourinary: Yes: no symptom reported Musculoskeletal: Yes: no symptom reported Skin: Yes no symptom reported Psychiatric/Neurological: Yes: no symptom reported Endocrine: Yes: no symptom reported Physical Exam General Appearance: no apparent distress Skin: warm Respiratory: decreased breath sounds Heart: S1S2 Abdomen: soft Genitourinary: bladder flat Extremities: pulses present Neurology: alert Musculoskeletal: Other Assessment Assessment IMP [id number] ESRD NON COMPLIANCE HYPERKALEMIA-BETTER ANEMIA HTN-IMPROVED PLAN HD TOMORROW ENC COMPLIANCE ARLIN WHEN HGB LESS THAN 10 WILL FOLLOW BENY PAINTER MD Mar 26, 2019 16:05
[2019-03-26 19:00] VITALS: BP 81/36
[2019-03-26] MEDS: LATANOPROST 0.005% OPHTH SOLUTION 2.5ML BOTTLE. OU SCH (21:31)
[2019-03-26] MEDS: ATORVASTATIN CALCIUM 40 MG TABLET. PO SCH (21:31)
[2019-03-26 23:00] VITALS: BP 144/35
[2019-03-27] MEDS: ALPRAZolam 0.25 MG TABLET PO PRN ×2 (00:08→16:09)
[2019-03-27 03:00] VITALS: BP 109/48
[2019-03-27] MEDS: diphenhydrAMINE 50 MG/ML VIAL IVP PRN ×3 (03:49→20:36)
[2019-03-27] MEDS: LEVOTHYROXINE 50 MCG TABLET PO SCH (05:57)
[2019-03-27] MEDS: HYDROcodone/APAP 5/325MG 1 TAB TABLET PO PRN ×3 (05:59→20:36)
[2019-03-27] MEDS ORDERED: IV NORMAL SALINE 1000ML BAG 1,000 ML IV PRN ×2 (07:20)
[2019-03-27] MEDS ORDERED: diphenhydrAMINE 50 MG/ML VIAL IV PRN ×2 (07:30)
[2019-03-27] MEDS ORDERED: ALBUMIN HUMAN 25% 200 ML IV PRN (07:30)
[2019-03-27] MEDS: PANTOPRAZOLE 40 MG TABLET.DR. PO SCH (07:30)
[2019-03-27] MEDS ORDERED: DIALYSIS PATIENT. MC PRN ×2 (07:30)
[2019-03-27] MEDS: CARVEDILOL 12.5 MG TABLET. PO SCH ×2 (08:00→17:00)
[2019-03-27] MEDS: CLOPIDOGREL BISULFATE 75 MG TABLET PO SCH (08:00)
[2019-03-27] MEDS: amLODIPine BESYLATE 10 MG TABLET PO SCH (08:11)
[2019-03-27] MEDS: FOLIC/VIT B COMP W-C (RENAL) TABLET. PO SCH (08:11)
[2019-03-27] MEDS: hydrALAZINE 25 MG TABLET PO SCH ×3 (08:11→21:00)
[2019-03-27] MEDS: LACTOBACILLUS RHAMNOSUS GG 1 CAPSULE. PO SCH ×2 (08:11→20:35)
[2019-03-27] MEDS: SERTRALINE 50 MG TABLET. PO SCH (08:12)
--- NOTE | 2019-03-27 10:23 | PDOC ---
PROGRESS NOTES Chief Complaint Chief Complaint impression ESRD Acute on chronic diastolic CHF Accelerated HTN Anasarca noncompliance hx Severe LE PAD: S/P bilateral BKA. more recent to left leg, incision intact with tiffany EXTENSIVE GANGRENE OF LEFT FOOT s/p BKA POD # 27 (02/27/19) 03/27/19 reports pain slow to resolve History of Present Illness History of Present Illness 03/25/19 Pt seen and examined DW pt regarding their care DW RN and physical therapists Reviewed pt's chart 03/26/19 Pt seen and examined Vitals Vitals Vital Signs Date Time Temp Pulse Resp B/P (MAP) Pulse Ox O2 Delivery O2 Flow Rate FiO2 03/27/19 06:59 16 Room Air 03/27/19 03:00 97.9 68 109/48 (68) 95 97.9 03/26/19 20:00 2.0 Physical Exam General: Alert, Oriented X3, Cooperative, No acute distress Heart: Regular rate, Normal S1, Normal S2 Lungs: Clear, Wheezing, Other Abdomen: Soft, Other (Lower abd tenderness with palpation) Extremities: No clubbing, No cyanosis, Other (bilateral BKA) Skin: No breakdown, No significant lesion Assessment and Plan Assessmemt and Plan Problems Medical Problems: (1) Hyperkalemia Status: Acute Comment Review of Relevant I have reviewed the following items pamela (where applicable) has been applied. Medications Current Medications Fentanyl Citrate (Fentanyl 2ml Vial) 50 mcg 1X ONCE IVP Last administered on 03/21/19at 17:54; Start 03/21/19 at 17:30; Stop 03/21/19 at 17:31; Status DC Calcium Gluconate (Calcium Gluconate) 1,000 mg 1X ONCE IVP Last administered on 03/21/19at 19:39; Start 03/21/19 at 19:00; Stop 03/21/19 at 19:04; Status DC Sodium Bicarbonate (Sodium Bicarb Adult 8.4% Syr) 50 meq 1X ONCE IV Last administered on 03/21/19 19:39; Start 03/21/19 at 19:00; Stop 03/21/19 at 19:04; Status DC Dextrose (Dextrose 50%-Water Syringe) 25 gm 1X ONCE IV Last administered on 03/21/19at 19:39; Start 03/21/19 at 19:00; Stop 03/21/19 at 19:04; Status DC Insulin Human Regular (HumuLIN R VIAL) 10 unit 1X ONCE IV Last administered on 03/21/19at 19:42; Start 03/21/19 at 19:00; Stop 03/21/19 at 19:04; Status DC Ondansetron HCl (Zofran) 4 mg PRN Q8HRS PRN IV NAUSEA/VOMITING; Start 03/21/19 at 19:15; Stop 03/22/19 at 19:14; Status DC Fentanyl Citrate (Fentanyl 2ml Vial) 50 mcg PRN Q1HR PRN IV PAIN Last administered on 03/22/19 18:11; Start 03/21/19 at 19:15; Stop 03/22/19 at 19:14; Status DC Albuterol Sulfate (Ventolin Neb Soln) 2.5 mg PRN BID PRN INH SHORTNESS OF BREATH; Start 03/21/19 at 20:15 Amlodipine Besylate (Norvasc) 10 mg DAILY PO Last administered on 03/26/19 08:55; Start 03/22/19 at 09:00 Atorvastatin Calcium (Lipitor) 40 mg HS PO Last administered on 03/25/19 22:47; Start 03/21/19 at 21:00 Carvedilol (Coreg) 12.5 mg BIDWMEALS PO Last administered on 03/26/19 17:23; Start 03/21/19 at 21:00 Clonidine HCl (Catapres Tts-2) 1 patch WEEKLY TD ; Start 03/28/19 at 09:00 Clopidogrel Bisulfate (Plavix) 75 mg DAILYWBKFT PO Last administered on 03/26/19at 08:53; Start 03/22/19 at 08:00 Vitamin B Complex/ Vitamin C (Pinky-Shreya) 1 tab DAILY PO Last administered on 03/24/19 08:37; Start 03/22/19 at 09:00 Guaifenesin (Robitussin Dm) 10 ml PRN Q6HRS PRN PO COUGH; Start 03/21/19 at 20:15 Hydralazine HCl (Apresoline) 25 mg TID PO Last administered on 03/26/19 08:53; Start 03/21/19 at 21:00 Acetaminophen/ Hydrocodone Bitart (Lortab 5/325) 1 tab PRN Q6HRS PRN PO MODERATE PAIN, SEVERE PAIN Last administered on 03/27/19 05:59; Start 03/21/19 at 20:15 Lactobacillus Rhamnosus (Culturelle) 1 cap BID PO Last administered on 03/26/19at 21:31; Start 03/21/19 at 21:00 Latanoprost (Xalatan) 1 drop HS OU Last administered on 03/26/19at 21:31; Start 03/21/19 at 21:00 Levothyroxine Sodium (Synthroid) 50 mcg DAILY06 PO Last administered on 03/27/19at 05:57; Start 03/22/19 at 06:00 Ondansetron HCl (Zofran Odt) 4 mg PRN Q6HRS PRN PO NAUSEA; Start 03/21/19 at 20:15 Prochlorperazine Maleate (Compazine) 5 mg PRN TID PRN PO NAUSEA 2ND CHOICE; Start 03/21/19 at 20:15 Sertraline HCl (Zoloft) 50 mg DAILY PO Last administered on 03/26/19at 08:53; Start 03/22/19 at 09:00 Acetaminophen (Tylenol) 650 mg PRN Q6HRS PRN PO MILD PAIN / TEMP; Start 03/21/19 at 20:30 Amylase/Lipase/ Protease (Zenpep 5,000) 1 cap TIDWMEALS PO Last administered on 03/26/19at 17:24; Start 03/21/19 at 21:00 Pantoprazole Sodium (Protonix) 40 mg DAILYAC PO Last administered on 03/26/19at 08:53; Start 03/22/19 at 07:30 Sodium Chloride 1,000 ml @ 1,000 mls/hr Q1H PRN IV hypotension; Start 03/21/19 at 20:48; Stop 03/22/19 at 02:47; Status DC Albumin Human 200 ml @ 200 mls/hr 1X PRN PRN IV Hypotension; Start 03/21/19 at 21:00; Stop 03/22/19 at 02:59; Status DC Sodium Chloride 1,000 ml @ 400 mls/hr Q2H30M PRN IV PATENCY; Start 03/21/19 at 20:48; Stop 03/22/19 at 08:47; Status DC Info (PHARMACY MONITORING -- do not chart) 1 each PRN DAILY PRN MC SEE COMMENTS; Start 03/21/19 at 21:00; Status UNV Info (PHARMACY MONITORING -- do not chart) 1 each PRN DAILY PRN MC SEE COMMENTS; Start 03/21/19 at 21:00; Status Cancel Diphenhydramine HCl (Benadryl) 50 mg STK-MED ONCE .ROUTE ; Start 03/21/19 at 21:11; Stop 03/21/19 at 21:12; Status DC Diphenhydramine HCl (Benadryl) 25 mg 1X ONCE IVP Last administered on 03/21/19at 21:41; Start 03/21/19 at 21:45; Stop 03/21/19 at 21:46; Status DC Hydrocortisone (Proctosol-Hc) 1 herber PRN BID PRN RC INFLAMMATION; Start 03/22/19 at 10:30 Sodium Chloride 1,000 ml @ 1,000 mls/hr Q1H PRN IV hypotension; Start 03/22/19 at 13:46; Stop 03/22/19 at 19:45; Status DC Albumin Human 200 ml @ 200 mls/hr 1X PRN PRN IV Hypotension; Start 03/22/19 at 14:00; Stop 03/22/19 at 19:59; Status DC Diphenhydramine HCl (Benadryl) 25 mg 1X PRN PRN IV ITCHING; Start 03/22/19 at 14:00; Stop 03/22/19 at 23:00; Status DC Diphenhydramine HCl (Benadryl) 25 mg 1X PRN PRN IV ITCHING; Start 03/22/19 at 14:00; Stop 03/22/19 at 23:00; Status DC Sodium Chloride 1,000 ml @ 400 mls/hr Q2H30M PRN IV PATENCY; Start 03/22/19 at 13:46; Stop 03/23/19 at 01:45; Status DC Info (PHARMACY MONITORING -- do not chart) 1 each PRN DAILY PRN MC SEE COMMENTS; Start 03/22/19 at 14:00; Status UNV Info (PHARMACY MONITORING -- do not chart) 1 each PRN DAILY PRN MC SEE COMMENTS; Start 03/22/19 at 14:00; Status UNV Alprazolam (Xanax) 0.25 mg PRN Q8HRS PRN PO ANXIETY / AGITATION Last administered on 03/27/19at 00:08; Start 03/22/19 at 21:30 Zolpidem Tartrate (Ambien) 5 mg PRN QHS PRN PO INSOMNIA Last administered on 03/22/19at 21:44; Start 03/22/19 at 21:30 Fentanyl Citrate (Fentanyl 2ml Vial) 25 mcg PRN Q2HR PRN IVP MODERATE TO SEVERE PAIN; Start 03/23/19 at 11:30; Stop 03/24/19 at 14:04; Status DC Fentanyl Citrate (Fentanyl 2ml Vial) 25 mcg PRN Q12HR PRN IVP MODERATE TO SEVERE PAIN Last administered on 03/25/19at 15:39; Start 03/24/19 at 14:15; St op 03/25/19 at 15:49; Status DC Sodium Chloride 1,000 ml @ 1,000 mls/hr Q1H PRN IV hypotension; Start 03/25/19 at 11:56; Stop 03/25/19 at 17:55; Status DC Albumin Human 200 ml @ 200 mls/hr 1X PRN PRN IV Hypotension; Start 03/25/19 at 12:00; Stop 03/25/19 at 17:59; Status DC Sodium Chloride (Normal Saline Flush) 10 ml 1X PRN PRN IV AP catheter pack; Start 03/25/19 at 12:00; Stop 03/26/19 at 11:59; Status DC Sodium Chloride (Normal Saline Flush) 10 ml 1X PRN PRN IV [employer]ATING [employer] catheter pack; Start 03/25/19 at 12:00; Stop 03/26/19 at 11:59; Status DC Sodium Chloride 1,000 ml @ 400 mls/hr Q2H30M PRN IV PATENCY; Start 03/25/19 at 11:56; Stop 03/25/19 at 23:55; Status DC Info (PHARMACY MONITORING -- do not chart) 1 each PRN DAILY PRN MC SEE COMMENTS; Start 03/25/19 at 12:00; Status UNV Info (PHARMACY MONITORING -- do not chart) 1 each PRN DAILY PRN MC SEE COMMENTS; Start 03/25/19 at 12:00 Fentanyl (Duragesic 50mcg/ Hr Patch) 1 patch Q72H TD Last administered on 12/30/19at 22:46; Start 03/25/19 at 21:00 Diphenhydramine HCl (Benadryl) 25 mg PRN Q6HRS PRN IVP ITCHING Last administered on 03/27/19at 03:49; Start 03/26/19 at 13:15 Sodium Chloride 1,000 ml @ 1,000 mls/hr Q1H PRN IV hypotension; Start 03/27/19 at 07:20; Stop 03/27/19 at 13:19 Albumin Human 200 ml @ 200 mls/hr 1X PRN PRN IV Hypotension; Start 03/27/19 at 07:30; Stop 03/27/19 at 13:29 Diphenhydramine HCl (Benadryl) 25 mg 1X PRN PRN IV ITCHING Last administered on 03/27/19at 08:26; Start 03/27/19 at 07:30; Stop 03/28/19 at 07:29 Diphenhydramine HCl (Benadryl) 25 mg 1X PRN PRN IV ITCHING; Start 03/27/19 at 07:30; Stop 03/28/19 at 07:29 Sodium Chloride 1,000 ml @ 400 mls/hr Q2H30M PRN IV PATENCY; Start 03/27/19 at 07:20; Stop 03/27/19 at 19:19 Info (PHARMACY MONITORING -- do not chart) 1 each PRN DAILY PRN MC SEE COMMENTS; Start 03/27/19 at 07:30; Status UNV Info (PHARMACY MONITORING -- do not chart) 1 each PRN DAILY PRN MC SEE COMMENTS; Start 03/27/19 at 07:30 Active Scripts Active Guaifenesin Dm Syrup (Guaifenesin/Dextromethorphan) 5 Ml Syrup 10 Ml PO PRN Q6HRS PRN 10 Days Ondansetron Odt (Ondansetron) 4 Mg Tab.rapdis 1 Tab PO PRN Q6-8HRS PRN Hydrocodone-Apap 5-325 (Hydrocodone Bit/Acetaminophen) 1 Tab Tablet 1 Tab PO PRN Q6HRS PRN Carvedilol (Carvedilol) 6.25 Mg Tablet 12.5 Mg PO BIDWMEALS Hydralazine Hcl 25 Mg Tablet 25 Mg PO TID Humalog (Insulin Lispro) 100 Unit/1 Ml Insuln.pen 0 Units SQ TIDWMEALS 28 Days Culturelle (Lactobacillus Rhamnosus Gg) 1 Each Cap.sprink 1 Cap PO BID 30 Days Ondansetron Odt (Ondansetron) 4 Mg Tab.rapdis 4 Mg PO PRN Q6HRS PRN 28 Days Clopidogrel (Clopidogrel Bisulfate) 75 Mg Tablet 75 Mg PO DAILYWBKFT 30 Days Pinky-Shreya Tablet (Folic Acid/Vitamin B Comp W-C) 0.8 Mg Tablet 1 Tab PO DAILY Tylenol (Acetaminophen) 325 Mg Capsule 650 Mg PO Q6-8HRS PRN Zantac (Ranitidine Hcl) 300 Mg Tablet 1 Tab PO QHS Compazine (Prochlorperazine Maleate) 5 Mg Tablet 5 Mg PO PRN TID PRN 10 Days [Pantoprazole] 40 MG Tablet.dr 40 Mg PO DAILYAC 30 Days Reported Zoloft (Sertraline Hcl) 50 Mg Tablet 50 Mg PO DAILY Lisinopril 20 Mg Tablet 20 Mg PO DAILY Creon Dr 6,000 Units Capsule (Lipase/Protease/Amylase) 1 Each Capsule.dr 1 Tab PO TID Proair Hfa (Albuterol Sulfate) 8.5 Gm Hfa.aer.ad 2 Puff INH BID PRN Levothyroxine Sodium 50 Mcg Tablet 1 Tab PO DAILY Clonidine Tts-2 (Clonidine) 1 Each Patch.tdwk 1 Patch TD WEEKLY Amlodipine Besylate 5 Mg Tablet 10 Mg PO DAILY Atorvastatin Calcium 40 Mg Tablet 40 Mg PO HS Latanoprost 2.5 Ml Drops 1 Drop EACHEYE HS Vitals/I & O Vital Sign - Last 24 Hours 03/26/19 03/26/19 03/26/19 03/26/19 11:00 12:22 17:23 18:45 Temp 97.1 97.1 Pulse 63 63 Resp 16 B/P (MAP) 129/42 (71) 129/42 Pulse Ox 97 97 O2 Delivery Room Air Room Air Room Air O2 Flow Rate 2.0 03/26/19 03/26/19 03/26/19 03/26/19 19:00 20:00 21:31 23:00 Temp 97.5 97.5 97.5 97.5 Pulse 66 66 64 Resp 17 17 B/P (MAP) 81/36 (51) 81/36 144/35 (71) Pulse Ox 97 95 O2 Delivery Room Air Nasal Cannula Room Air O2 Flow Rate 2.0 03/26/19 03/27/19 03/27/19 03/27/19 23:53 01:00 03:00 05:59 Temp 97.9 97.9 Pulse 68 Resp 17 B/P (MAP) 109/48 (68) Pulse Ox 95 O2 Delivery Room Air Room Air Room Air Room Air 03/27/19 06:59 Resp 16 O2 Delivery Room Air Intake and Output 03/26/19 03/26/19 03/27/19 15:00 23:00 07:00 Intake Total 480 ml 510 ml 0 ml Balance 480 ml 510 ml 0 ml SANGEETHA MUELLER MD Mar 27, 2019 10:23
[2019-03-27 11:00] VITALS: BP 159/31
[2019-03-27 15:00] VITALS: BP 160/40
--- NOTE | 2019-03-27 15:07 | PDOC ---
Renal-Progress Notes Subjective Notes Notes NO NEW COMPLAINTS History of Present Illness Hx of present illness STABLE Vitals Vitals Vital Signs Date Time Temp Pulse Resp B/P (MAP) Pulse Ox O2 Delivery O2 Flow Rate FiO2 03/27/19 12:54 58 122/31 03/27/19 12:41 20 Room Air 03/27/19 11:00 97.0 97 97.0 03/26/19 20:00 2.0 Weight Weight [ ] I.O. Intake and Output Intake and Output 03/27/19 07:00 Intake Total 990 ml Balance 990 ml Intake Oral 990 ml # Voids 4 Review of Systems Constitutional: yes: alert, oriented Ears/Nose/Throat: Yes: no symptom reported Eyes: Yes: no symptom reported Pulmonary: Yes no symptom reported, Yes dyspnea Cardiovascular: Yes no symptom reported Gastrointestional: Yes: no symptom reported Genitourinary: Yes: no symptom reported Musculoskeletal: Yes: no symptom reported Skin: Yes no symptom reported Psychiatric/Neurological: Yes: no symptom reported Endocrine: Yes: no symptom reported Physical Exam General Appearance: no apparent distress Skin: warm Respiratory: decreased breath sounds Heart: S1S2 Abdomen: soft Genitourinary: bladder flat Extremities: pulses present Neurology: alert Musculoskeletal: Other Assessment Assessment IMP [id number] ESRD NON COMPLIANCE HYPERKALEMIA-BETTER ANEMIA HTN-IMPROVED PLAN HD TODAY UF TO DW ENC COMPLIANCE ARLIN WHEN HGB LESS THAN 10 WILL FOLLOW BENY PAINTER MD Mar 27, 2019 15:07
[2019-03-27] MEDS: LATANOPROST 0.005% OPHTH SOLUTION 2.5ML BOTTLE. OU SCH (20:34)
[2019-03-27] MEDS: ATORVASTATIN CALCIUM 40 MG TABLET. PO SCH (20:34)
[2019-03-27] MEDS: ZOLPIDEM 5 MG TABLET. PO PRN (23:08)
[2019-03-28] MEDS: diphenhydrAMINE 50 MG/ML VIAL IVP PRN ×3 (02:33→16:36)
[2019-03-28] MEDS: HYDROcodone/APAP 5/325MG 1 TAB TABLET PO PRN ×3 (02:33→16:36)
[2019-03-28 03:00] VITALS: BP 192/54
[2019-03-28 03:48] VITALS: BP 161/56
[2019-03-28] MEDS: LEVOTHYROXINE 50 MCG TABLET PO SCH ×3 (06:08→08:48)
[2019-03-28 07:00] VITALS: BP 79/56
[2019-03-28] MEDS: CARVEDILOL 12.5 MG TABLET. PO SCH ×2 (08:00→17:00)
[2019-03-28] MEDS: ALPRAZolam 0.25 MG TABLET PO PRN ×2 (08:47→18:39)
[2019-03-28] MEDS: LACTOBACILLUS RHAMNOSUS GG 1 CAPSULE. PO SCH (08:48)
[2019-03-28] MEDS: CLOPIDOGREL BISULFATE 75 MG TABLET PO SCH (08:48)
[2019-03-28] MEDS: PANTOPRAZOLE 40 MG TABLET.DR. PO SCH (08:49)
[2019-03-28] MEDS: SERTRALINE 50 MG TABLET. PO SCH (08:49)
[2019-03-28] MEDS: FOLIC/VIT B COMP W-C (RENAL) TABLET. PO SCH (08:49)
[2019-03-28] MEDS: amLODIPine BESYLATE 10 MG TABLET PO SCH (08:54)
[2019-03-28] MEDS: hydrALAZINE 25 MG TABLET PO SCH ×2 (08:54→13:33)
[2019-03-28] MEDS ORDERED: cloNIDine TTS-2 1 PATCH PATCH TD SCH (09:00)
--- NOTE | 2019-03-28 09:23 | PDOC ---
PROGRESS NOTES Chief Complaint Chief Complaint impression ESRD Acute on chronic diastolic CHF Accelerated HTN Anasarca noncompliance hx Severe LE PAD: S/P bilateral BKA. more recent to left leg, incision intact with tiffany EXTENSIVE GANGRENE OF LEFT FOOT s/p BKA POD # 27 (02/27/19) 03/28/19 reports pain slow to resolve, ANGRY AT STAFF History of Present Illness History of Present Illness 03/25/19 Pt seen and examined DW pt regarding their care DW RN and physical therapists Reviewed pt's chart 03/26/19 Pt seen and examined Vitals Vitals Vital Signs Date Time Temp Pulse Resp B/P (MAP) Pulse Ox O2 Delivery O2 Flow Rate FiO2 03/28/19 08:00 62 79/56 03/28/19 07:00 97.5 18 90 Room Air 97.5 Physical Exam General: Alert, Oriented X3, Cooperative, No acute distress Heart: Regular rate, Normal S1, Normal S2 Lungs: Clear, Wheezing, Other Abdomen: Soft, Other (Lower abd tenderness with palpation) Extremities: No clubbing, No cyanosis, Other (bilateral BKA) Skin: No breakdown, No significant lesion Assessment and Plan Assessmemt and Plan Problems Medical Problems: (1) Hyperkalemia Status: Acute Comment Review of Relevant I have reviewed the following items pamela (where applicable) has been applied. Medications Current Medications Fentanyl Citrate (Fentanyl 2ml Vial) 50 mcg 1X ONCE IVP Last administered on 03/21/19at 17:54; Start 03/21/19 at 17:30; Stop 03/21/19 at 17:31; Status DC Calcium Gluconate (Calcium Gluconate) 1,000 mg 1X ONCE IVP Last administered on 03/21/19at 19:39; Start 03/21/19 at 19:00; Stop 03/21/19 at 19:04; Status DC Sodium Bicarbonate (Sodium Bicarb Adult 8.4% Syr) 50 meq 1X ONCE IV Last administered on 03/21/19at 19:39; Start 03/21/19 at 19:00; Stop 03/21/19 at 19:04; Status DC Dextrose (Dextrose 50%-Water Syringe) 25 gm 1X ONCE IV Last administered on at 19:39; Start 03/21/19 at 19:00; Stop 03/21/19 at 19:04; Status DC Insulin Human Regular (HumuLIN R VIAL) 10 unit 1X ONCE IV Last administered on 03/21/19at 19:42; Start 03/21/19 at 19:00; Stop 03/21/19 at 19:04; Status DC Ondansetron HCl (Zofran) 4 mg PRN Q8HRS PRN IV NAUSEA/VOMITING; Start 03/21/19 at 19:15; Stop 03/22/19 at 19:14; Status DC Fentanyl Citrate (Fentanyl 2ml Vial) 50 mcg PRN Q1HR PRN IV PAIN Last administered on 03/22/19at 18:11; Start 03/21/19 at 19:15; Stop 03/22/19 at 19:14; Status DC Albuterol Sulfate (Ventolin Neb Soln) 2.5 mg PRN BID PRN INH SHORTNESS OF BREATH; Start 03/21/19 at 20:15 Amlodipine Besylate (Norvasc) 10 mg DAILY PO Last administered on 03/26/19at 08:55; Start 03/22/19 at 09:00 Atorvastatin Calcium (Lipitor) 40 mg HS PO Last administered on 03/27/19at 20:34; Start 03/21/19 at 21:00 Carvedilol (Coreg) 12.5 mg BIDWMEALS PO Last administered on 03/26/19 17:23; Start 03/21/19 at 21:00 Clonidine HCl (Catapres Tts-2) 1 patch WEEKLY TD ; Start 03/28/19 at 09:00 Clopidogrel Bisulfate (Plavix) 75 mg DAILYWBKFT PO Last administered on 03/28/19 08:48; Start 03/22/19 at 08:00 Vitamin B Complex/ Vitamin C (Pinky-Shreya) 1 tab DAILY PO Last administered on 03/28/19 08:49; Start 03/22/19 at 09:00 Guaifenesin (Robitussin Dm) 10 ml PRN Q6HRS PRN PO COUGH; Start 03/21/19 at 20:15 Hydralazine HCl (Apresoline) 25 mg TID PO Last administered on 03/26/19at 08:53; Start 03/21/19 at 21:00 Acetaminophen/ Hydrocodone Bitart (Lortab 5/325) 1 tab PRN Q6HRS PRN PO MOD ERATE PAIN, SEVERE PAIN Last administered on 03/28/19 02:33; Start 03/21/19 at 20:15 Lactobacillus Rhamnosus (Culturelle) 1 cap BID PO Last administered on 03/28/19 08:48; Start 03/21/19 at 21:00 Latanoprost (Xalatan) 1 drop HS OU Last administered on 03/27/19 20:34; Start 03/21/19 at 21:00 Levothyroxine Sodium (Synthroid) 50 mcg DAILY06 PO Last administered on 03/27/19 05:57; Start 03/22/19 at 06:00 Ondansetron HCl (Zofran Odt) 4 mg PRN Q6HRS PRN PO NAUSEA; Start 03/21/19 at 20:15 Prochlorperazine Maleate (Compazine) 5 mg PRN TID PRN PO NAUSEA 2ND CHOICE; Start 03/21/19 at 20:15 Sertraline HCl (Zoloft) 50 mg DAILY PO Last administered on 03/28/19 08:49; Start 03/22/19 at 09:00 Acetaminophen (Tylenol) 650 mg PRN Q6HRS PRN PO MILD PAIN / TEMP; Start 03/21/19 at 20:30 Amylase/Lipase/ Protease (Zenpep 5,000) 1 cap TIDWMEALS PO Last administered on 03/28/19 08:48; Start 03/21/19 at 21:00 Pantoprazole Sodium (Protonix) 40 mg DAILYAC PO Last administered on 03/28/19 08:49; Start 03/22/19 at 07:30 Sodium Chloride 1,000 ml @ 1,000 mls/hr Q1H PRN IV hypotension; Start 03/21/19 at 20:48; Stop 03/22/19 at 02:47; Status DC Albumin Human 200 ml @ 200 mls/hr 1X PRN PRN IV Hypotension; Start 03/21/19 at 21:00; Stop 03/22/19 at 02:59; Status DC Sodium Chloride 1,000 ml @ 400 mls/hr Q2H30M PRN IV PATENCY; Start 03/21/19 at 20:48; Stop 03/22/19 at 08:47; Status DC Info (PHARMACY MONITORING -- do not chart) 1 each PRN DAILY PRN MC SEE COMMENTS; Start 03/21/19 at 21:00; Status UNV Info (PHARMACY MONITORING -- do not chart) 1 each PRN DAILY PRN MC SEE COMMENTS; Start 03/21/19 at 21:00; Status Cancel Diphenhydramine HCl (Benadryl) 50 mg STK-MED ONCE .ROUTE ; Start 03/21/19 at 21:11; Stop 03/21/19 at 21:12; Status DC Diphenhydramine HCl (Benadryl) 25 mg 1X ONCE IVP Last administered on 03/21/19at 21:41; Start 03/21/19 at 21:45; Stop 03/21/19 at 21:46; Status DC Hydrocortisone (Proctosol-Hc) 1 herber PRN BID PRN RC INFLAMMATION; Start 03/22/19 at 10:30 Sodium Chloride 1,000 ml @ 1,000 mls/hr Q1H PRN IV hypotension; Start 03/22/19 at 13:46; Stop 03/22/19 at 19:45; Status DC Albumin Human 200 ml @ 200 mls/hr 1X PRN PRN IV Hypotension; Start 03/22/19 at 14:00; Stop 03/22/19 at 19:59; Status DC Diphenhydramine HCl (Benadryl) 25 mg 1X PRN PRN IV ITCHING; Start 03/22/19 at 14:00; Stop 03/22/19 at 23:00; Status DC Diphenhydramine HCl (Benadryl) 25 mg 1X PRN PRN IV ITCHING; Start 03/22/19 at 14:00; Stop 03/22/19 at 23:00; Status DC Sodium Chloride 1,000 ml @ 400 mls/hr Q2H30M PRN IV PATENCY; Start 03/22/19 at 13:46; Stop 03/23/19 at 01:45; Status DC Info (PHARMACY MONITORING -- do not chart) 1 each PRN DAILY PRN MC SEE COMMENTS; Start 03/22/19 at 14:00; Status UNV Info (PHARMACY MONITORING -- do not chart) 1 each PRN DAILY PRN MC SEE COMMENTS; Start 03/22/19 at 14:00; Status UNV Alprazolam (Xanax) 0.25 mg PRN Q8HRS PRN PO ANXIETY / AGITATION Last admi nistered on 03/28/19at 08:47; Start 03/22/19 at 21:30 Zolpidem Tartrate (Ambien) 5 mg PRN QHS PRN PO INSOMNIA Last administered on 03/27/19at 23:08; Start 03/22/19 at 21:30 Fentanyl Citrate (Fentanyl 2ml Vial) 25 mcg PRN Q2HR PRN IVP MODERATE TO SEVERE PAIN; Start 03/23/19 at 11:30; Stop 03/24/19 at 14:04; Status DC Fentanyl Citrate (Fentanyl 2ml Vial) 25 mcg PRN Q12HR PRN IVP MODERATE TO SEVERE PAIN Last administered on 03/25/19at 15:39; Start 03/24/19 at 14:15; Stop 03/25/19 at 15:49; Status DC Sodium Chloride 1,000 ml @ 1,000 mls/hr Q1H PRN IV hypotension; Start 03/25/19 at 11:56; Stop 03/25/19 at 17:55; Status DC Albumin Human 200 ml @ 200 mls/hr 1X PRN PRN IV Hypotension; Start 03/25/19 at 12:00; Stop 03/25/19 at 17:59; Status DC Sodium Chloride (Normal Saline Flush) 10 ml 1X PRN PRN IV AP catheter pack; Start 03/25/19 at 12:00; Stop 03/26/19 at 11:59; Status DC Sodium Chloride (Normal Saline Flush) 10 ml 1X PRN PRN IV TABLE TENDER SLUDGE catheter pack; Start 03/25/19 at 12:00; Stop 03/26/19 at 11:59; Status DC Sodium Chloride 1,000 ml @ 400 mls/hr Q2H30M PRN IV PATENCY; Start 03/25/19 at 11:56; Stop 03/25/19 at 23:55; Status DC Info (PHARMACY MONITORING -- do not chart) 1 each PRN DAILY PRN MC SEE COMMENTS; Start 03/25/19 at 12:00; Status UNV Info (PHARMACY MONITORING -- do not chart) 1 each PRN DAILY PRN MC SEE COMMENTS; Start 03/25/19 at 12:00 Fentanyl (Duragesic 50mcg/ Hr Patch) 1 patch Q72H TD Last administered on 03/25/19at 22:46; Start 03/25/19 at 21:00 Diphenhydramine HCl (Benadryl) 25 mg PRN Q6HRS PRN IVP ITCHING Last administered on 03/28/19at 02:33; Start 03/26/19 at 13:15 Sodium Chloride 1,000 ml @ 1,000 mls/hr Q1H PRN IV hypotension; Start 03/27/19 at 07:20; Stop 03/27/19 at 13:19; Status DC Albumin Human 200 ml @ 200 mls/hr 1X PRN PRN IV Hypotension; Start 03/27/19 at 07:30; Stop 03/27/19 at 13:29; Status DC Diphenhydramine HCl (Benadryl) 25 mg 1X PRN PRN IV ITCHING Last administered on 03/27/19at 08:26; Start 03/27/19 at 07:30; Stop 03/28/19 at 07:29; Status DC Diphenhydramine HCl (Benadryl) 25 mg 1X PRN PRN IV ITCHING; Start 03/27/19 at 07:30; Stop 03/28/19 at 07:29; Status DC Sodium Chloride 1,000 ml @ 400 mls/hr Q2H30M PRN IV PATENCY; Start 03/27/19 at 07:20; Stop 03/27/19 at 19:19; Status DC Info (PHARMACY MONITORING -- do not chart) 1 each PRN DAILY PRN MC SEE COMMENTS; Start 03/27/19 at 07:30; Status UNV Info (PHARMACY MONITORING -- do not chart) 1 each PRN DAILY PRN MC SEE COMMENTS; Start 03/27/19 at 07:30 Active Scripts Active Guaifenesin Dm Syrup (Guaifenesin/Dextromethorphan) 5 Ml Syrup 10 Ml PO PRN Q6HRS PRN 10 Days Ondansetron Odt (Ondansetron) 4 Mg Tab.rapdis 1 Tab PO PRN Q6-8HRS PRN Hydrocodone-Apap 5-325 (Hydrocodone Bit/Acetaminophen) 1 Tab Tablet 1 Tab PO PRN Q6HRS PRN Carvedilol (Carvedilol) 6.25 Mg Tablet 12.5 Mg PO BIDWMEALS Hydralazine Hcl 25 Mg Tablet 25 Mg PO TID Humalog (Insulin Lispro) 100 Unit/1 Ml Insuln.pen 0 Units SQ TIDWMEALS 28 Days Culturelle (Lactobacillus Rhamnosus Gg) 1 Each Cap.sprink 1 Cap PO BID 30 Days Ondansetron Odt (Ondansetron) 4 Mg Tab.rapdis 4 Mg PO PRN Q6HRS PRN 28 Days Clopidogrel (Clopidogrel Bisulfate) 75 Mg Tablet 75 Mg PO DAILYWBKFT 30 Days Pinky-Shreya Tablet (Folic Acid/Vitamin B Comp W-C) 0.8 Mg Tablet 1 Tab PO DAILY Tylenol (Acetaminophen) 325 Mg Capsule 650 Mg PO Q6-8HRS PRN Zantac (Ranitidine Hcl) 300 Mg Tablet 1 Tab PO QHS Compazine (Prochlorperazine Maleate) 5 Mg Tablet 5 Mg PO PRN TID PRN 10 Days [Pantoprazole] 40 MG Tablet.dr 40 Mg PO DAILYAC 30 Days Reported Zoloft (Sertraline Hcl) 50 Mg Tablet 50 Mg PO DAILY Lisinopril 20 Mg Tablet 20 Mg PO DAILY Creon Dr 6,000 Units Capsule (Lipase/Protease/Amylase) 1 Each Capsule.dr 1 Tab PO TID Proair Hfa (Albuterol Sulfate) 8.5 Gm Hfa.aer.ad 2 Puff INH BID PRN Levothyroxine Sodium 50 Mcg Tablet 1 Tab PO DAILY Clonidine Tts-2 (Clonidine) 1 Each Patch.tdwk 1 Patch TD WEEKLY Amlodipine Besylate 5 Mg Tablet 10 Mg PO DAILY Atorvastatin Calcium 40 Mg Tablet 40 Mg PO HS Latanoprost 2.5 Ml Drops 1 Drop EACHEYE HS Vitals/I & O Vital Sign - Last 24 Hours 03/27/19 03/27/19 03/27/19 03/27/19 11:00 12:41 12:54 13:41 Temp 97.0 97.0 Pulse 67 58 Resp 14 20 16 B/P (MAP) 159/31 (73) 122/31 Pulse Ox 97 O2 Delivery Room Air Room Air Room Air 03/27/19 03/27/19 03/27/19 03/28/19 15:00 17:00 20:00 03:00 Temp 98.1 98.1 Pulse 69 60 82 Resp 14 B/P (MAP) 160/40 (80) 153/33 192/54 (100) Pulse Ox 94 O2 Delivery Room Air Room Air Room Air 03/28/19 03/28/19 03/28/19 03:48 07:00 08:00 Temp 97.5 97.5 Pulse 78 80 62 Resp 18 B/P (MAP) 161/56 (91) 79/56 (64) 79/56 Pulse Ox 90 O2 Delivery Room Air Intake and Output 03/27/19 03/27/19 03/28/19 15:00 23:00 07:00 Intake Total 120 ml 120 ml 0 ml Balance 120 ml 120 ml 0 ml SANGEETHA MUELLER MD Mar 28, 2019 09:23
[2019-03-28 11:00] VITALS: BP 174/58
--- NOTE | 2019-03-28 11:01 | NUR ---
SANTIAGO left a VM to E[facility] at . Spoke with Paulino at rehab hospital and pt is currently on 'do not admit list' but Paulino said she could come and talk with pt and review referral. SANTIAGO will continue to follow.
--- NOTE | 2019-03-28 12:58 | PDOC ---
Renal-Progress Notes Subjective Notes Notes NO NEW COMPLAINTS History of Present Illness Hx of present illness STABLE Vitals Vitals Vital Signs Date Time Temp Pulse Resp B/P (MAP) Pulse Ox O2 Delivery O2 Flow Rate FiO2 03/28/19 11:33 14 Room Air 03/28/19 11:00 97.4 78 174/58 (96) 94 97.4 Weight Weight [ ] I.O. Intake and Output Intake and Output 03/28/19 07:00 Intake Total 240 ml Balance 240 ml Intake Oral 240 ml # Voids 1 # Bowel Movements 3 Review of Systems Constitutional: yes: alert, oriented Ears/Nose/Throat: Yes: no symptom reported Eyes: Yes: no symptom reported Pulmonary: Yes no symptom reported, Yes dyspnea Cardiovascular: Yes no symptom reported Gastrointestional: Yes: no symptom reported Genitourinary: Yes: no symptom reported Musculoskeletal: Yes: no symptom reported Skin: Yes no symptom reported Psychiatric/Neurological: Yes: no symptom reported Endocrine: Yes: no symptom reported Physical Exam General Appearance: no apparent distress Skin: warm Respiratory: decreased breath sounds Heart: S1S2 Abdomen: soft Genitourinary: bladder flat Extremities: pulses present Neurology: alert Musculoskeletal: Other Assessment Assessment IMP [id number] ESRD NON COMPLIANCE HYPERKALEMIA-BETTER ANEMIA HTN-IMPROVED PLAN HD TOMORROW ENC COMPLIANCE ARLIN WHEN HGB LESS THAN 10 WILL FOLLOW BENY PAINTER MD Mar 28, 2019 12:58
[2019-03-28 13:33] VITALS: BP 99/43
[2019-03-28 14:51] LABS: BASO # 0.1 x10^3/uL (0.0-0.2); BASO % 1 % (0-3); EOS # 0.1 x10^3/uL (0.0-0.7); EOS % 1 % (0-3); HEMATOCRIT 32.6 % (36.0-47.0); HEMOGLOBIN 10.6 g/dL (12.0-15.5); LYMPH # 1.8 x10^3/uL (1.0-4.8); LYMPH % 23 % (24-48); MEAN CORPUSCULAR HEMOGLOBIN 28 pg (25-35); MEAN CORPUSCULAR HGB CONC 32 g/dL (31-37); MEAN CORPUSCULAR VOLUME 87 fL (79-100); MONO # 0.9 x10^3/uL (0.0-1.1); MONO % 11 % (0-9); NEUT % 63 % (31-73); PLATELET COUNT 356 x10^3/uL (140-400); RED BLOOD COUNT 3.75 x10^6/uL (3.50-5.40); RED CELL DISTRIBUTION WIDTH 20.8 % (11.5-14.5)
[2019-03-28 15:23] LABS: ALBUMIN 2.8 g/dL (3.4-5.0); ALBUMIN/GLOBULIN RATIO 0.8 (1.0-1.7); CALCIUM 8.9 mg/dL (8.5-10.1); CREATININE 4.4 mg/dL (0.6-1.0); GFR 12.6; POTASSIUM 4.3 mmol/L (3.5-5.1); TOTAL BILIRUBIN 0.4 mg/dL (0.2-1.0); TOTAL PROTEIN 6.2 g/dL (6.4-8.2)
--- NOTE | 2019-03-28 16:19 | NUR ---
[facility] denied to take pt and OP rehab was considering to [facility]. Pt then became uncooperative with therapy and is discharging home today. SANTIAGO arranged transport via [facility] at 1700.
--- NOTE | 2019-03-28 19:12 | NUR ---
Discharge Note: OTTONIEL SMITH Discharge instructions and discharge home medications reviewed with Patient and a copy given. All questions have been answered and understanding verbalized. The following instructions and handouts were given: follow-up instructions, medication list, discharge instructions. Discontinued lines and drains: peripheral IV discontinued without complications and with catheter tip intact. Patient discharged to home at 1910 with self care via EMS.
== END 2019-03-28 19:10 | disposition home or self-care (01) | DRG 291 ==
LOC: ER 16:14 → 2 NORTH 18:37 → EEVIPCON 18:37 → 5 SOUTH 03-23 15:02
PROVIDERS: ADMIT Internal Medicine; ATTEND Internal Medicine
PROC: 5A1D70Z Performance of Urinary Filtration, Intermittent, Less than 6 Hours Per Day (ICD-10-PCS; principal; 2019-03-21)
PROC: 5A1D70Z Performance of Urinary Filtration, Intermittent, Less than 6 Hours Per Day (ICD-10-PCS; 2019-03-22)
PROC: 5A1D70Z Performance of Urinary Filtration, Intermittent, Less than 6 Hours Per Day (ICD-10-PCS; 2019-03-25)
PROC: 5A1D70Z Performance of Urinary Filtration, Intermittent, Less than 6 Hours Per Day (ICD-10-PCS; 2019-03-27)
DX: I13.2 Hypertensive heart and chronic kidney disease with heart failure and with stage 5 chronic kidney disease, or end stage renal disease (principal); I50.33 Acute on chronic diastolic (congestive) heart failure; N18.6 End stage renal disease; J98.11 Atelectasis; K21.9 Gastro-esophageal reflux disease without esophagitis; J30.9 Allergic rhinitis, unspecified; H40.9 Unspecified glaucoma; E11.36 Type 2 diabetes mellitus with diabetic cataract; G89.29 Other chronic pain; H26.9 Unspecified cataract; E11.22 Type 2 diabetes mellitus with diabetic chronic kidney disease; E11.42 Type 2 diabetes mellitus with diabetic polyneuropathy; E78.5 Hyperlipidemia, unspecified; E11.51 Type 2 diabetes mellitus with diabetic peripheral angiopathy without gangrene; F31.9 Bipolar disorder, unspecified; E03.9 Hypothyroidism, unspecified; M79.7 Fibromyalgia; K64.9 Unspecified hemorrhoids; E87.5 Hyperkalemia; D64.9 Anemia, unspecified; M94.0 Chondrocostal junction syndrome [Tietze]; Z90.710 Acquired absence of both cervix and uterus; Z89.511 Acquired absence of right leg below knee; Z89.512 Acquired absence of left leg below knee; Z89.421 Acquired absence of other right toe(s); Z91.19 Patient's noncompliance with other medical treatment and regimen; Z91.15 Patient's noncompliance with renal dialysis; Z99.2 Dependence on renal dialysis; Z82.49 Family history of ischemic heart disease and other diseases of the circulatory system
CPT/HCPCS: 36415; 71045; 74176; 80048; 80053; 80061; 83735; 84132; 84443; 84484; 85025; 85610; 93005; 93306; 96374; 96375; J0610; J1200; J1815; J3010; J7042; 97110; 97530; 99285-25; G0378

== ENCOUNTER 2019-03-29 20:46 | Emergency (ER) | payer MEDICAID, OTHER ==
[~2019-03-29] VITALS: Ht 157.5 cm; Wt 49.9 kg
--- NOTE | 2019-03-29 23:14 | PHYS DOC ---
Past Medical History Past Medical History: Diabetes-Type II, Hypertension, Renal Failure Additional Past Medical Histor: neuropathy, cataracts,CHRONIC PAIN,ESRD (THUY MCKENZIE APRN) Past Surgical History: Hysterectomy, Other Additional Past Surgical Histo: PICC PLACEMENT, BILATERAL BKA, SHUNT, toe amputation (THUY MCKENZIE APRN) Alcohol Use: None Drug Use: None (THUY MCKENZIE APRN) Adult General Chief Complaint Chief Complaint: LOWER EXT PAIN HPI HPI Patient is a 58 year old female who presents with states she has pain in her bilateral BKA. Patient states she also has abdominal pain in her hernia. She also states that she has chest pain that feels sharp like needles. She denies any shortness of air. She rates her pain a 10 out of 10. She states she had dialysis today. Patient has history diabetes, hypertension, renal failure, amputation. Patient states she does not make urine. (THUY MCKENZIE APRN) Review of Systems Review of Systems Respiratory: Denies cough or shortness of breath [] Cardiovascular: Mid chest pain GI: abdominal pain, denies nausea, vomiting, bloody stools or diarrhea [] Musculoskeletal: BKA chronic pain. Denies back pain or joint pain [] All other systems were reviewed and found to be within normal limits, except as documented in this note. (THUY MCKENZIE APRN) Current Medications Current Medications Current Medications Medications (Trade) Dose Ordered Sig/Clarence Start Time Stop Time Status Last Admin Dose Admin Clonidine HCl (Catapres) 0.2 mg 1X ONCE 03/30/19 02:15 03/30/19 02:16 DC 03/30/19 02:09 0.2 MG Fentanyl Citrate (Fentanyl 2ml Vial) 50 mcg 1X ONCE 03/30/19 00:45 03/30/19 00:46 DC 03/30/19 00:43 50 MCG Hydralazine HCl (Apresoline Inj) 20 mg STK-MED ONCE 03/30/19 03:33 03/30/19 03:33 DC Metoclopramide HCl (Reglan Vial) 10 mg 1X ONCE 03/30/19 03:00 03/30/19 03:01 DC 03/30/19 02:59 10 MG Morphine Sulfate (Morphine Sulfate) 5 mg 1X ONCE 03/30/19 03:00 03/30/19 03:01 DC 03/30/19 03:00 5 MG Ondansetron HCl (Zofran Odt) 4 mg 1X ONCE 03/30/19 00:45 03/30/19 00:46 DC 03/30/19 00:38 4 MG Ondansetron HCl (Zofran) 4 mg 1X ONCE 03/30/19 02:00 03/30/19 02:01 DC 03/30/19 01:54 4 MG (MERY AMAYA DO) Allergies Allergies Allergies Coded Allergies Type Severity Reaction Last Updated Verified No Known Drug Allergies 02/27/19 No (MERY AMAYA DO) Physical Exam Physical Exam Constitutional: Well developed, well nourished, no acute distress, non-toxic appearance. [] HENT: Normocephalic, atraumatic, bilateral external ears normal, oropharynx moist, no oral exudates, nose normal. [] Eyes: PERRLA, EOMI, conjunctiva normal, no discharge. [] Neck: Normal range of motion, no tenderness, supple, no stridor. [] Cardiovascular:Heart rate regular rhythm, no murmur [] Lungs & Thorax: Bilateral upper breath sounds clear and lower diminished to auscultation [] Abdomen: Bowel sounds normal, soft, umbilical tenderness, no masses, no pulsatile masses. [] Skin: Warm, dry, no erythema, no rash. [] Back: No tenderness, no CVA tenderness. [] Extremities: No tenderness, no cyanosis, no clubbing, ROM intact, no edema. [] Neurologic: Alert and oriented X 3, normal motor function, normal sensory function, no focal deficits noted. [] Psychologic: Affect normal, judgement normal, mood normal. [] (JONAH,THUY Garcia APRN) Current Patient Data Vital Signs Vital Signs Date Time Temp Pulse Resp B/P (MAP) Pulse Ox O2 Delivery O2 Flow Rate FiO2 03/30/19 03:35 90 214/94 03/30/19 03:00 16 Room Air 03/29/19 20:53 97.4 97 97.4 (MERY AMAYA DO) Lab Values Laboratory Tests Test 03/30/19 01:14 White Blood Count 7.8 x10^3/uL (4.0-11.0) Red Blood Count 3.85 x10^6/uL (3.50-5.40) Hemoglobin 10.8 g/dL (12.0-15.5) L Hematocrit 33.1 % (36.0-47.0) L Mean Corpuscular Volume 86 fL (79-100) Mean Corpuscular Hemoglobin 28 pg (25-35) Mean Corpuscular Hemoglobin Concent 33 g/dL (31-37) Red Cell Distribution Width 20.2 % (11.5-14.5) H Platelet Count 358 x10^3/uL (140-400) Neutrophils (%) (Auto) 65 % (31-73) Lymphocytes (%) (Auto) 23 % (24-48) L Monocytes (%) (Auto) 10 % (0-9) H Eosinophils (%) (Auto) 1 % (0-3) Basophils (%) (Auto) 2 % (0-3) Neutrophils # (Auto) 5.0 x10^3/uL (1.8-7.7) Lymphocytes # (Auto) 1.8 x10^3/uL (1.0-4.8) Monocytes # (Auto) 0.8 x10^3/uL (0.0-1.1) Eosinophils # (Auto) 0.0 x10^3/uL (0.0-0.7) Basophils # (Auto) 0.1 x10^3/uL (0.0-0.2) Platelet Estimate Adequate (ADEQUATE) Hypochromasia Slight Anisocytosis Mod Target Cells Occ Prothrombin Time 13.3 SEC (11.7-14.0) Prothrombin Time INR 1.0 (0.8-1.1) Sodium Level 143 mmol/L (136-145) Potassium Level 3.6 mmol/L (3.5-5.1) Chloride Level 101 mmol/L (98-107) Carbon Dioxide Level 32 mmol/L (21-32) Anion Gap 10 (6-14) Blood Urea Nitrogen 16 mg/dL (7-20) Creatinine 3.3 mg/dL (0.6-1.0) H Estimated GFR (Cockcroft-Gault) 17.5 BUN/Creatinine Ratio 5 (6-20) L Glucose Level 104 mg/dL (70-99) H Calcium Level 9.2 mg/dL (8.5-10.1) Total Bilirubin 0.3 mg/dL (0.2-1.0) Aspartate Amino Transferase (AST) 34 U/L (15-37) Alanine Aminotransferase (ALT) 18 U/L (14-59) Alkaline Phosphatase 93 U/L (46-116) Troponin I Quantitative 0.066 ng/mL (0.000-0.055) Total Protein 7.2 g/dL (6.4-8.2) Albumin 3.0 g/dL (3.4-5.0) L Albumin/Globulin Ratio 0.7 (1.0-1.7) L Lipase 135 U/L (73-393) Laboratory Tests 03/30/19 01:14 Laboratory Tests 03/30/19 01:14 (MERY AMAYA DO) Lab Values Laboratory Tests Test 03/30/19 01:14 White Blood Count 7.8 x10^3/uL (4.0-11.0) Red Blood Count 3.85 x10^6/uL (3.50-5.40) Hemoglobin 10.8 g/dL (12.0-15.5) L Hematocrit 33.1 % (36.0-47.0) L Mean Corpuscular Volume 86 fL (79-100) Mean Corpuscular Hemoglobin 28 pg (25-35) Mean Corpuscular Hemoglobin Concent 33 g/dL (31-37) Red Cell Distribution Width 20.2 % (11.5-14.5) H Platelet Count 358 x10^3/uL (140-400) Neutrophils (%) (Auto) 65 % (31-73) Lymphocytes (%) (Auto) 23 % (24-48) L Monocytes (%) (Auto) 10 % (0-9) H Eosinophils (%) (Auto) 1 % (0-3) Basophils (%) (Auto) 2 % (0-3) Neutrophils # (Auto) 5.0 x10^3/uL (1.8-7.7) Lymphocytes # (Auto) 1.8 x10^3/uL (1.0-4.8) Monocytes # (Auto) 0.8 x10^3/uL (0.0-1.1) Eosinophils # (Auto) 0.0 x10^3/uL (0.0-0.7) Basophils # (Auto) 0.1 x10^3/uL (0.0-0.2) Platelet Estimate Pending Prothrombin Time 13.3 SEC (11.7-14.0) Prothrombin Time INR 1.0 (0.8-1.1) Sodium Level 143 mmol/L (136-145) Potassium Level 3.6 mmol/L (3.5-5.1) Chloride Level 101 mmol/L (98-107) Carbon Dioxide Level 32 mmol/L (21-32) Anion Gap 10 (6-14) Blood Urea Nitrogen 16 mg/dL (7-20) Creatinine 3.3 mg/dL (0.6-1.0) H Estimated GFR (Cockcroft-Gault) 17.5 BUN/Creatinine Ratio 5 (6-20) L Glucose Level 104 mg/dL (70-99) H Calcium Level 9.2 mg/dL (8.5-10.1) Total Bilirubin Pending Aspartate Amino Transferase (AST) Pending Alanine Aminotransferase (ALT) Pending Alkaline Phosphatase Pending Total Protein Pending Albumin Pending Albumin/Globulin Ratio Pending Lipase Pending Laboratory Tests 03/30/19 01:14 Laboratory Tests 03/30/19 01:14 (THUY MCKENZIE APRN) EKG EKG Sinus Rhythm and no STEMI[] Interpretation Time: [address] Amaya (THUY MCKENZIE APRN) Radiology/Procedures Radiology/Procedures [] (THUY MCKENZIE APRN) Impressions: [facility] [address] [place] [address] IMAGING REPORT Signed PATIENT: OTTONIEL SMITH ACCOUNT: [id number] : 1960 LOCATION: ER AGE: 58 SEX: F EXAM STATUS: REG ER ORD. PHYSICIAN: THUY MCKENZIE APRN REASON: abdominal pain PROCEDURE: CT ABDOMEN PELVIS WO CONTRAST Study: CT abdomen and pelvis without contrast Indication: Abdominal pain. Comparison: 03/21/2019 Technique: Helical CT imaging performed of the abdomen and pelvis without the use of intravenous contrast. Sagittal and coronal reformats were obtained. One or more of the following individualized dose reduction techniques were utilized for this examination: 1. Automated exposure control 2. Adjustment of the mA and/or kV according to patient size 3. Use of iterative reconstruction technique. Findings: The study is degraded by motion artifact. The study is also limited without intravenous contrast. A small right pleural effusion has decreased in size. Persistent though less pronounced volume loss from the prior. Ill-defined infiltrate seen at the right lower lobe is difficult to characterize due to motion, image 18 series 2. Cardiomegaly. No newly seen abnormality of the liver. Redemonstrated branching densities along the vasculature to the left hepatic lobe. Status post cholecystectomy. The pancreas is not well evaluated. No obvious surrounding inflammatory changes. Splenic granulomas. The adrenal glands are not well evaluated. Family visualized low-attenuation foci within the left kidney such as on images 31 and 34, series 2, are unchanged. Extensive vascular calcifications at the renal hilum. No change in the configuration of the collecting system. Circumferential wall thickening of the urinary bladder is more conspicuous from the prior however this apparent progression could be related to partial collapse. The uterus appears to be absent. Limited evaluation of the bowel without oral contrast. Circumferential low attenuation at the rectosigmoid junction is unchanged. The caliber of the colon is within normal limits. Less pronounced well-formed stool within the colon from the prior. Limited evaluation for any wall thickening or surrounding inflammatory changes. The small bowel is not well evaluated however there are no findings that would suggest obstruction. Incomplete evaluation of the stomach without gross abnormality. Marked diffuse vascular calcifications. No aortic aneurysmal dilatation. Anasarca evidenced by diffuse body wall edema. Similar volume of abdominopelvic ascites. Limited evaluation for any enlarged lymph nodes throughout the abdomen or pelvis. No adenopathy at the inguinal region. Unchanged chronic ossific fragments at the right greater trochanter. Scattered degenerative changes. Redemonstrated marked vertebral body sclerosis surrounding the L2-L3 disc space where there is severe displaced collapse and endplate erosive changes that are no different from the prior. As before, levocurvature centered at this level. Small umbilical hernia is unchanged, as is diastases of the abdominal wall at this location. Impression: 1. The study is degraded by motion artifact. Significantly limited evaluation of the intra-abdominal and pelvic structures as well due to the absence of intravenous and oral contrast. 2. More conspicuous on this study is ill-defined opacification at the basilar right lower lobe is difficult to fully characterize due to motion artifact. This is not the typical density of atelectasis and could represent an infectious infiltrate or the sequela of aspiration in the appropriate clinical setting. Interval decrease in size of a small right pleural effusion as well as slightly less pronounced basilar volume loss. 3. Redemonstrated cardiomegaly, anasarca and abdominopelvic ascites. 4. Vasculopath with marked calcific atherosclerotic burden. 5. 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 Electronically signed by: THADDEUS RODRÍGUEZ MD (03/30/2019 12:27 AM) [place] [id number] DICTATED and SIGNED BY: THADDEUS RODRÍGUEZ MD DATE: 03/30/19 0027 [facility] [address] [place], [place] [id number] IMAGING REPORT Signed PATIENT: OTTONIEL SMITH ACCOUNT: [id number] : 1960 LOCATION: ER AGE: 58 SEX: F EXAM STATUS: REG ER ORD. PHYSICIAN: THUY MCKENZIE APRN REASON: chest pain ER#5 PROCEDURE: PORTABLE CHEST 1V PORTABLE CHEST 1V Clinical History: Chest pain Technique: AP view of the chest was obtained at 03/29/2019 10:51 PM. Comparison: March 21, 2019. Findings: The heart is top normal limits in size. The pulmonary vessels appear somewhat cephalized and full and there is patchy opacities and reticular opacities throughout the lungs. Impression: Bilateral infiltrates could be CHF or atypical pneumonia and appears moderately improved. Electronically signed by: Hugo Perez III, MD (03/29/2019 11:49 PM) [facility] DICTATED and SIGNED BY: HUGO PEREZ III, MD DATE: 03/29/19 2349 [facility] [address] [place] [address] IMAGING REPORT Signed PATIENT: OTTONIEL SMITH ACCOUNT: [id number] : 1960 LOCATION: ER AGE: 58 SEX: F EXAM STATUS: REG ER ORD. PHYSICIAN: THUY MCKENZIE APRN REASON: abdominal pain PROCEDURE: CT ABDOMEN PELVIS WO CONTRAST Study: CT abdomen and pelvis without contrast Indication: Abdominal pain. Comparison: 03/21/2019 Technique: Helical CT imaging performed of the abdomen and pelvis without the use of intravenous contrast. Sagittal and coronal reformats were obtained. One or more of the following individualized dose reduction techniques were utilized for this examination: 1. Automated exposure control 2. Adjustment of the mA and/or kV according to patient size 3. Use of iterative reconstruction technique. Findings: The study is degraded by motion artifact. The study is also limited without intravenous contrast. A small right pleural effusion has decreased in size. Persistent though less pronounced volume loss from the prior. Ill-defined infiltrate seen at the right lower lobe is difficult to characterize due to motion, image 18 series 2. Cardiomegaly. No newly seen abnormality of the liver. Redemonstrated branching densities along the vasculature to the left hepatic lobe. Status post cholecystectomy. The pancreas is not well evaluated. No obvious surrounding inflammatory changes. Splenic granulomas. The adrenal glands are not well evaluated. Family visualized low-attenuation foci within the left kidney such as on images 31 and 34, series 2, are unchanged. Extensive vascular calcifications at the renal hilum. No change in the configuration of the collecting system. Circumferential wall thickening of the urinary bladder is more conspicuous from the prior however this apparent progression could be related to partial collapse. The uterus appears to be absent. Limited evaluation of the bowel without oral contrast. Circumferential low attenuation at the rectosigmoid junction is unchanged. The caliber of the colon is within normal limits. Less pronounced well-formed stool within the colon from the prior. Limited evaluation for any wall thickening or surrounding inflammatory changes. The small bowel is not well evaluated however there are no findings that would suggest obstruction. Incomplete evaluation of the stomach without gross abnormality. Marked diffuse vascular calcifications. No aortic aneurysmal dilatation. Anasarca evidenced by diffuse body wall edema. Similar volume of abdominopelvic ascites. Limited evaluation for any enlarged lymph nodes throughout the abdomen or pelvis. No adenopathy at the inguinal region. Unchanged chronic ossific fragments at the right greater trochanter. Scattered degenerative changes. Redemonstrated marked vertebral body sclerosis surrounding the L2-L3 disc space where there is severe displaced collapse and endplate erosive changes that are no different from the prior. As before, levocurvature centered at this level. Small umbilical hernia is unchanged, as is diastases of the abdominal wall at this location. Impression: 1. The study is degraded by motion artifact. Significantly limited evaluation of the intra-abdominal and pelvic structures as well due to the absence of intravenous and oral contrast. 2. More conspicuous on this study is ill-defined opacification at the basilar right lower lobe is difficult to fully characterize due to motion artifact. This is not the typical density of atelectasis and could represent an infectious infiltrate or the sequela of aspiration in the appropriate clinical setting. Interval decrease in size of a small right pleural effusion as well as slightly less pronounced basilar volume loss. 3. Redemonstrated cardiomegaly, anasarca and abdominopelvic ascites. 4. Vasculopath with marked calcific atherosclerotic burden. 5. 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 Electronically signed by: THADDEUS RODRÍGUEZ MD (03/30/2019 12:27 AM) [facility] DICTATED and SIGNED BY: THADDEUS RODRÍGUEZ MD DATE: 03/30/19 0027 (THUY MCKENZIE APRN) Course & Med Decision Making Course & Med Decision Making Alert and oriented. Abdomen is soft but tender to mid umbilical abdomen. No hernia felt or seen. There is no redness or cellulitis to her bka bilaterally and she denies any injury. Lungs are clear to auscultation in upper lobes and diminished in lower lobes. Skin pink warm and dry. Vital signs are within normal limits. Patient denies nausea, vomiting, diarrhea, fever, cough, shortness of air, new numbness or tingling, weakness, visual changes. Patient is vomiting. IV zofran ordered. 0138: I have reported this patient off to Dr Amaya at this time. (THUY MCKENZIE APRN) Dragon Disclaimer Dragon Disclaimer This electronic medical record was generated, in whole or in part, using a voice recognition dictation system. (THUY MCKENZIE APRN) The HEART Score for CP Pts HEART Score for Chest Pain: HEART Score for Chest Pain Response (Comments) Value History Slighlty/Non-Suspicious 0 ECG Normal 0 Age >45 - < 65 1 Risk Factors 1 or 2 Risk Factors 1 Troponin < Normal Limit 0 Total 2 Risk Factors: Risk Factors: DM, Current or recent (<one month) smoker, HTN, HLP, family history of CAD, obesity. Risk Scores: Score 0 - 3: 2.5% MACE over next 6 weeks - Discharge Home Score 4 - 6: 20.3% MACE over next 6 weeks - Admit for Clinical Observation Score 7 - 10: 72.7% MACE over next 6 weeks - Early Invasive Strategies (THUY MCKENZIE APRN) Departure Departure Impression: Primary Impression: Chronic pain disorder Additional Impression: HTN (hypertension) Disposition: HOME, SELF-CARE Condition: IMPROVED Referrals: GRACIELA JUAREZ MD (PCP) FOLLOW UP WITH YOUR DOCTOR ON MONDAY Patient Instructions: Chronic Pain Problem Qualifiers THUY MCKENZIE APRN Mar 29, 2019 23:14 MERY AMAYA DO Mar 30, 2019 04:04
[2019-03-29] MEDS ORDERED: fentaNYL PF VIAL 100 MCG/2 ML VIAL IV ONE (23:30)
--- NOTE | 2019-03-29 23:52 | RAD ---
PORTABLE CHEST 1V Clinical History: Chest pain Technique: AP view of the chest was obtained at 03/29/2019 10:51 PM. Comparison: March 21, 2019. Findings: The heart is top normal limits in size. The pulmonary vessels appear somewhat cephalized and full and there is patchy opacities and reticular opacities throughout the lungs. Impression: Bilateral infiltrates could be CHF or atypical pneumonia and appears moderately improved. Electronically signed by: Pj Holliday III, MD (03/29/2019 11:49 PM) [facility]
--- NOTE | 2019-03-30 00:29 | RAD ---
Study: CT abdomen and pelvis without contrast Indication: Abdominal pain. Comparison: 03/21/2019 Technique: Helical CT imaging performed of the abdomen and pelvis without the use of intravenous contrast. Sagittal and coronal reformats were obtained. One or more of the following individualized dose reduction techniques were utilized for this examination: 1. Automated exposure control 2. Adjustment of the mA and/or kV according to patient size 3. Use of iterative reconstruction technique. Findings: The study is degraded by motion artifact. The study is also limited without intravenous contrast. A small right pleural effusion has decreased in size. Persistent though less pronounced volume loss from the prior. Ill-defined infiltrate seen at the right lower lobe is difficult to characterize due to motion, image 18 series 2. Cardiomegaly. No newly seen abnormality of the liver. Redemonstrated branching densities along the vasculature to the left hepatic lobe. Status post cholecystectomy. The pancreas is not well evaluated. No obvious surrounding inflammatory changes. Splenic granulomas. The adrenal glands are not well evaluated. Family visualized low-attenuation foci within the left kidney such as on images 31 and 34, series 2, are unchanged. Extensive vascular calcifications at the renal hilum. No change in the configuration of the collecting system. Circumferential wall thickening of the urinary bladder is more conspicuous from the prior however this apparent progression could be related to partial collapse. The uterus appears to be absent. Limited evaluation of the bowel without oral contrast. Circumferential low attenuation at the rectosigmoid junction is unchanged. The caliber of the colon is within normal limits. Less pronounced well-formed stool within the colon from the prior. Limited evaluation for any wall thickening or surrounding inflammatory changes. The small bowel is not well evaluated however there are no findings that would suggest obstruction. Incomplete evaluation of the stomach without gross abnormality. Marked diffuse vascular calcifications. No aortic aneurysmal dilatation. Anasarca evidenced by diffuse body wall edema. Similar volume of abdominopelvic ascites. Limited evaluation for any enlarged lymph nodes throughout the abdomen or pelvis. No adenopathy at the inguinal region. Unchanged chronic ossific fragments at the right greater trochanter. Scattered degenerative changes. Redemonstrated marked vertebral body sclerosis surrounding the L2-L3 disc space where there is severe displaced collapse and endplate erosive changes that are no different from the prior. As before, levocurvature centered at this level. Small umbilical hernia is unchanged, as is diastases of the abdominal wall at this location. Impression: 1. The study is degraded by motion artifact. Significantly limited evaluation of the intra-abdominal and pelvic structures as well due to the absence of intravenous and oral contrast. 2. More conspicuous on this study is ill-defined opacification at the basilar right lower lobe is difficult to fully characterize due to motion artifact. This is not the typical density of atelectasis and could represent an infectious infiltrate or the sequela of aspiration in the appropriate clinical setting. Interval decrease in size of a small right pleural effusion as well as slightly less pronounced basilar volume loss. 3. Redemonstrated cardiomegaly, anasarca and abdominopelvic ascites. 4. Vasculopath with marked calcific atherosclerotic burden. 5. 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 Electronically signed by: THADDEUS RODRÍGUEZ MD (03/30/2019 12:27 AM) [facility]
[2019-03-30] MEDS: ONDANSETRON ODT 4 MG TAB.RAPDIS. PO ONE (00:38)
[2019-03-30] MEDS: fentaNYL PF VIAL 100 MCG/2 ML VIAL IM ONE (00:43)
[2019-03-30 01:24] LABS: BASO # 0.1 x10^3/uL (0.0-0.2); BASO % 2 % (0-3); EOS % 1 % (0-3); HEMATOCRIT 33.1 % (36.0-47.0); HEMOGLOBIN 10.8 g/dL (12.0-15.5); LYMPH # 1.8 x10^3/uL (1.0-4.8); LYMPH % 23 % (24-48); MEAN CORPUSCULAR HEMOGLOBIN 28 pg (25-35); MEAN CORPUSCULAR HGB CONC 33 g/dL (31-37); MEAN CORPUSCULAR VOLUME 86 fL (79-100); MONO # 0.8 x10^3/uL (0.0-1.1); MONO % 10 % (0-9); NEUT % 65 % (31-73); PLATELET COUNT 358 x10^3/uL (140-400); RED BLOOD COUNT 3.85 x10^6/uL (3.50-5.40); RED CELL DISTRIBUTION WIDTH 20.2 % (11.5-14.5); WHITE BLOOD COUNT 7.8 x10^3/uL (4.0-11.0)
[2019-03-30 01:33] LABS: CALCIUM 9.2 mg/dL (8.5-10.1); CREATININE 3.3 mg/dL (0.6-1.0); GFR 17.5; POTASSIUM 3.6 mmol/L (3.5-5.1); PROTHROMBIN TIME PATIENT 13.3 SEC (11.7-14.0)
[2019-03-30 01:40] LABS: ALBUMIN/GLOBULIN RATIO 0.7 (1.0-1.7); TOTAL BILIRUBIN 0.3 mg/dL (0.2-1.0); TOTAL PROTEIN 7.2 g/dL (6.4-8.2)
[2019-03-30 01:52] LABS: ANISOCYTOSIS MOD; HYPOCHROMIA SLIGHT; PLT ESTIMATE ADEQUATE (ADEQUATE); TARGET CELLS OCC
[2019-03-30] MEDS: ONDANSETRON PF 4 MG/2 ML VIAL. IV ONE (01:54)
[2019-03-30] MEDS: cloNIDine HCL 0.1 MG TABLET PO ONE (02:09)
[2019-03-30] MEDS: METOCLOPRAMIDE HCL 10 MG/2 ML VIAL. IVP ONE (02:59)
[2019-03-30] MEDS: MORPHINE SULFATE 10 MG/ML VIAL. IV ONE (03:00)
[2019-03-30] MEDS ORDERED: hydrALAZINE 20 MG/ML VIAL. ONE (03:33)
[2019-03-30] MEDS: hydrALAZINE 20 MG/ML VIAL. IVP ONE (03:35)
[2019-03-30 04:30] VITALS: BP 184/79
--- NOTE | 2019-03-30 13:58 | EKG ---
[facility] [address] [place] [address] Test Date: 2019-03-29 Test Time: 23:09:39 Pat Name: OTTONIEL SMITH Department: Room: Gender: F [employer] Worker: : 1960 Requested By: THUY MCKENZIE Order Number: [id number] Reading MD: Measurements Intervals [place] Rate: 89 P: 90 VT: 158 QRS: -11 QRSD: 88 T: 140 QT: 378 QTc: 467 Interpretive Statements SINUS RHYTHM LEFT ATRIAL ABNORMALITY LEFTWARD AXIS T ABNORMALITY IN LATERAL LEADS ABNORMAL ECG RI6.01 No previous ECG available for comparison
== END 2019-03-30 04:50 | disposition home or self-care (01) ==
LOC: ER 20:46
DX: G89.29 Other chronic pain (principal); R10.33 Periumbilical pain; I12.0 Hypertensive chronic kidney disease with stage 5 chronic kidney disease or end stage renal disease; E11.22 Type 2 diabetes mellitus with diabetic chronic kidney disease; N18.6 End stage renal disease; E11.40 Type 2 diabetes mellitus with diabetic neuropathy, unspecified; Z89.512 Acquired absence of left leg below knee; Z89.511 Acquired absence of right leg below knee; Z90.710 Acquired absence of both cervix and uterus
CPT/HCPCS: 36415; 71045; 74176; 80053; 83690; 84484; 85025; 85610; 93005; 96372; 96374; 96375; 99285; J0360; J2270; J2405; J2765; J3010; Q0162

== ENCOUNTER 2019-04-12 17:02 | Emergency (ER) | payer MEDICAID ==
[2019-04-12] MEDS ORDERED: ONDANSETRON PF 4 MG/2 ML VIAL. IVP ONE (17:45)
[2019-04-12] MEDS ORDERED: MORPHINE SULFATE 10 MG/ML VIAL. IV ONE ×2 (17:45→18:30)
[2019-04-12 17:53] LABS: CALCIUM 8.8 mg/dL (8.5-10.1); CREATININE 5.8 mg/dL (0.6-1.0); GFR 9.1; POTASSIUM 4.8 mmol/L (3.5-5.1)
[2019-04-12 17:57] LABS: BASO # 0.1 x10^3/uL (0.0-0.2); BASO % 1 % (0-3); EOS % 0 % (0-3); HEMATOCRIT 25.5 % (36.0-47.0); HEMOGLOBIN 8.5 g/dL (12.0-15.5); LYMPH # 1.4 x10^3/uL (1.0-4.8); LYMPH % 13 % (24-48); MEAN CORPUSCULAR HEMOGLOBIN 29 pg (25-35); MEAN CORPUSCULAR HGB CONC 33 g/dL (31-37); MEAN CORPUSCULAR VOLUME 85 fL (79-100); MONO # 0.8 x10^3/uL (0.0-1.1); MONO % 7 % (0-9); NEUT # 8.5 x10^3/uL (1.8-7.7); NEUT % 79 % (31-73); PLATELET COUNT 361 x10^3/uL (140-400); RED BLOOD COUNT 2.98 x10^6/uL (3.50-5.40); RED CELL DISTRIBUTION WIDTH 21.1 % (11.5-14.5); WHITE BLOOD COUNT 10.8 x10^3/uL (4.0-11.0)
[2019-04-12 17:59] LABS: ALBUMIN 2.8 g/dL (3.4-5.0); ALBUMIN/GLOBULIN RATIO 0.8 (1.0-1.7); TOTAL BILIRUBIN 0.4 mg/dL (0.2-1.0); TOTAL PROTEIN 6.4 g/dL (6.4-8.2)
[2019-04-12 18:46] LABS: % LYMPHS 17 % (24-48); % MONOS 11 % (0-10); % SEGS 72 % (35-66); PLT ESTIMATE ADEQUATE (ADEQUATE)
[2019-04-12 18:47] LABS: ANISOCYTOSIS MOD; MICROCYTOSIS SLIGHT; OVALOCYTES FEW; POIKILOCYTOSIS MOD; STOMATOCYTES OCC; TEAR DROP CELLS OCC
[2019-04-12 18:48] LABS: SCHISTOCYTES OCC
[2019-04-12 18:49] LABS: HYPOCHROMIA SLIGHT
[2019-04-12 19:49] VITALS: BP 144/88
--- NOTE | 2019-04-12 20:30 | RAD ---
Study: LUMBAR SPINE 2-3V Indication: Fall with back pain. Comparison: CT abdomen/pelvis 03/29/2019 Findings: Evaluation for acute osseous injury is hindered due to overlying bowel gas as well as osteopenia. No definite fracture is identified. 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 Obscured sacrum by bowel gas. Extensive vascular calcifications. Impression: No acute fracture is identified taking into consideration overlying bowel gas and osteopenia. 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 Electronically signed by: THADDEUS RODRÍGUEZ MD (04/12/2019 8:27 PM) [facility]
[2019-04-12] MEDS ORDERED: MORPHINE SULFATE 4 MG/ML VIAL. IV ONE (21:00)
--- NOTE | 2019-04-12 21:57 | PHYS DOC ---
Past Medical History Past Medical History: Diabetes-Type II, Hypertension, Renal Failure Additional Past Medical Histor: neuropathy, cataracts,CHRONIC PAIN,ESRD Past Surgical History: Hysterectomy, Other Additional Past Surgical Histo: PICC PLACEMENT, BILATERAL BKA, SHUNT, toe amputation Alcohol Use: None Drug Use: None Adult General Chief Complaint Chief Complaint: MECHANICAL FALL HPI HPI Patient is a 58 year old female with hx of , HTN, DM, bilateral below the knee amputations, ESRD on dialysis M,W,F last diayslisyed Monday who presents with 10 out of 10 low back pain status post falling. Patient reports she was transferring herself from her bed and slid to the ground. Denies any loss of consciousness. Denies hitting her head on the ground Review of Systems Review of Systems Constitutional: Denies fever or chills [] Eyes: Denies change in visual acuity, redness, or eye pain [] HENT: Denies nasal congestion or sore throat [] Respiratory: Denies cough or shortness of breath [] Cardiovascular: No additional information not addressed in HPI [] GI: Denies abdominal pain, nausea, vomiting, bloody stools or diarrhea [] : Denies dysuria or hematuria [] Musculoskeletal: Reports low back pain Integument: Denies rash or skin lesions [] Neurologic: Denies headache, focal weakness or sensory changes [] All other systems were reviewed and found to be within normal limits, except as documented in this note. Current Medications Current Medications Current Medications Medications (Trade) Dose Ordered Sig/Clarence Start Time Stop Time Status Last Admin Dose Admin Morphine Sulfate (Morphine Sulfate) 4 mg 1X ONCE 04/12/19 21:00 04/12/19 21:01 DC 04/12/19 20:55 4 MG Ondansetron HCl (Zofran) 4 mg 1X ONCE 04/12/19 17:45 04/12/19 17:46 DC 04/12/19 17:50 4 MG Allergies Allergies Allergies Coded Allergies Type Severity Reaction Last Updated Verified No Known Drug Allergies 02/27/19 No Physical Exam Physical Exam Constitutional: Well developed, well nourished, no acute distress, non-toxic appearance. [] HENT: Normocephalic, atraumatic, bilateral external ears normal, oropharynx moist, no oral exudates, nose normal. [] Eyes: PERRLA, EOMI, conjunctiva normal, no discharge. [] Neck: Normal range of motion, no tenderness, supple, no stridor. [] Cardiovascular:Heart rate regular rhythm, no murmur [] Lungs & Thorax: Bilateral breath sounds clear to auscultation [] Abdomen: Bowel sounds normal, soft, no tenderness, no masses, no pulsatile masses. [] Skin: Warm, dry, no erythema, no rash. [] Back: No tenderness, no CVA tenderness. [] Extremities: No tenderness, no cyanosis, no clubbing, ROM intact, no edema. Bilateral below the knee amputations noted Neurologic: Alert and oriented X 3, normal motor function, normal sensory function, no focal deficits noted. [] Psychologic: Affect normal, judgement normal, mood normal. [] Current Patient Data Vital Signs Vital Signs Date Time Temp Pulse Resp B/P (MAP) Pulse Ox O2 Delivery O2 Flow Rate FiO2 04/12/19 20:55 Room Air 04/12/19 19:10 20 100 04/12/19 17:05 97.2 94 169/72 (104) 97.2 Lab Values Laboratory Tests Test 04/12/19 17:34 White Blood Count 10.8 x10^3/uL (4.0-11.0) Red Blood Count 2.98 x10^6/uL (3.50-5.40) L Hemoglobin 8.5 g/dL (12.0-15.5) L Hematocrit 25.5 % (36.0-47.0) L Mean Corpuscular Volume 85 fL (79-100) Mean Corpuscular Hemoglobin 29 pg (25-35) Mean Corpuscular Hemoglobin Concent 33 g/dL (31-37) Red Cell Distribution Width 21.1 % (11.5-14.5) H Platelet Count 361 x10^3/uL (140-400) Neutrophils (%) (Auto) 79 % (31-73) H Lymphocytes (%) (Auto) 13 % (24-48) L Monocytes (%) (Auto) 7 % (0-9) Eosinophils (%) (Auto) 0 % (0-3) Basophils (%) (Auto) 1 % (0-3) Neutrophils # (Auto) 8.5 x10^3/uL (1.8-7.7) H Lymphocytes # (Auto) 1.4 x10^3/uL (1.0-4.8) Monocytes # (Auto) 0.8 x10^3/uL (0.0-1.1) Eosinophils # (Auto) 0.0 x10^3/uL (0.0-0.7) Basophils # (Auto) 0.1 x10^3/uL (0.0-0.2) Segmented Neutrophils % 72 % (35-66) H Lymphocytes % 17 % (24-48) L Monocytes % 11 % (0-10) H Platelet Estimate Adequate (ADEQUATE) Large Platelets Present Hypochromasia Slight Poikilocytosis Mod Anisocytosis Mod Microcytosis Slight Macrocytosis Slight Tear Drop Cells Occ Ovalocytes Few Stomatocytes Occ Schistocytes Occ Sodium Level 139 mmol/L (136-145) Potassium Level 4.8 mmol/L (3.5-5.1) Chloride Level 102 mmol/L (98-107) Carbon Dioxide Level 26 mmol/L (21-32) Anion Gap 11 (6-14) Blood Urea Nitrogen 42 mg/dL (7-20) H Creatinine 5.8 mg/dL (0.6-1.0) H Estimated GFR (Cockcroft-Gault) 9.1 BUN/Creatinine Ratio 7 (6-20) Glucose Level 97 mg/dL (70-99) Calcium Level 8.8 mg/dL (8.5-10.1) Total Bilirubin 0.4 mg/dL (0.2-1.0) Aspartate Amino Transferase (AST) 26 U/L (15-37) Alanine Aminotransferase (ALT) 28 U/L (14-59) Alkaline Phosphatase 61 U/L (46-116) Total Protein 6.4 g/dL (6.4-8.2) Albumin 2.8 g/dL (3.4-5.0) L Albumin/Globulin Ratio 0.8 (1.0-1.7) L Laboratory Tests 04/12/19 17:34 Laboratory Tests 04/12/19 17:34 EKG EKG [] Radiology/Procedures Radiology/Procedures [] Course & Med Decision Making Course & Med Decision Making Pertinent Labs and Imaging studies reviewed. (See chart for details) This is a 58-year-old female patient well known to this ED presenting today complaining of low back pain status post falling, patient was transferring herself from the bed and slid to the ground. Lumbar spine x-rays are negative for any acute findings, her lab work is negative for any acute findings. She was discharged back to home. Melisa Disclaimer Melisa Disclaimer This electronic medical record was generated, in whole or in part, using a voice recognition dictation system. Departure Departure Impression: Primary Impression: ESRD (end stage renal disease) on dialysis Additional Impressions: Fall Low back pain Disposition: HOME, SELF-CARE Condition: IMPROVED Referrals: GRACIELA JUAREZ MD (PCP) follow up in 1-2 weeks Patient Instructions: Fall Prevention and Home Safety Additional Instructions: Please follow up with your doctor in 1-2 weeks Problem Qualifiers Additional Impressions: Fall Encounter type: initial encounter Qualified Codes: W19.XXXA - Unspecified fall, initial encounter Low back pain Chronicity: acute Back pain laterality: bilateral Sciatica presence: wit hout sciatica Qualified Codes: M54.5 - Low back pain JOAN CHACON PANEL MACHINE OPERATOR Apr 12, 2019 21:57
== END 2019-04-12 22:11 | disposition home or self-care (01) ==
LOC: ER 17:02
DX: E11.22 Type 2 diabetes mellitus with diabetic chronic kidney disease (principal); I12.0 Hypertensive chronic kidney disease with stage 5 chronic kidney disease or end stage renal disease; N18.6 End stage renal disease; M54.5 Low back pain; G89.11 Acute pain due to trauma; Z99.2 Dependence on renal dialysis; G89.29 Other chronic pain; E11.40 Type 2 diabetes mellitus with diabetic neuropathy, unspecified; Z90.710 Acquired absence of both cervix and uterus; W18.39XA Other fall on same level, initial encounter; Y93.89 Activity, other specified; Y92.89 Other specified places as the place of occurrence of the external cause; Y99.8 Other external cause status
CPT/HCPCS: 36415; 72100; 80053; 85007; 85025; 96374; 96375; 96376; 99285; J2270; J2405

== ENCOUNTER 2019-04-17 22:47 | Emergency (ER) | payer MEDICAID ==
[~2019-04-17] VITALS: Ht 152.4 cm; Wt 49.0 kg
--- NOTE | 2019-04-17 23:10 | PHYS DOC ---
Past Medical History Past Medical History: Diabetes-Type II, Hypertension, Renal Failure Additional Past Medical Histor: neuropathy, cataracts,CHRONIC PAIN,ESRD Past Surgical History: Hysterectomy, Other Additional Past Surgical Histo: PICC PLACEMENT, BILATERAL BKA, SHUNT, toe amputation Alcohol Use: None Drug Use: None Adult General Chief Complaint Chief Complaint: LOWER EXT PAIN [facility] HPI 58-year-old female known history of hypertension, diabetes, chronic pain, end- stage renal disease hemodialysis dependent, noncompliance, presents to the emergency department with complaints of bilateral lower extremity pain. Patient states she was given [place] today around 11 with dialysis however subsequently has had continued pain. She has no pain medications at home. Patient is afebrile, saturations 98% on room air, blood pressure 146/71. Patient denies chest pain, SOB, nausea/vomiting, abdominal pain. Patient complains of bi lateral leg pain. Nothing makes her pain worse, nothing makes her pain better. Review of Systems Review of Systems Constitutional: Denies fever or chills [] Respiratory: Denies cough or shortness of breath [] Cardiovascular: No additional information not addressed in HPI [] GI: Denies abdominal pain, nausea, vomiting, bloody stools or diarrhea [] : Denies dysuria or hematuria [] Integument: Denies rash or skin lesions, surgical scars to bilateral lower BKA [] Neurologic: Denies headache, focal weakness or sensory changes [] All other systems were reviewed and found to be within normal limits, except as documented in this note. Current Medications Current Medications Current Medications Medications (Trade) Dose Ordered Sig/Clarence Start Time Stop Time Status Last Admin Dose Admin Acetaminophen/ Hydrocodone Bitart (Lortab 7.5/325) 1 tab 1X ONCE 04/17/19 23:15 04/17/19 23:16 DC 04/17/19 23:15 1 TAB Morphine Sulfate (Morphine Sulfate) 5 mg 1X ONCE 04/17/19 23:15 04/17/19 23:16 DC 04/17/19 23:15 5 MG Allergies Allergies Allergies Coded Allergies Type Severity Reaction Last Updated Verified No Known Drug Allergies 02/27/19 No Physical Exam Physical Exam Constitutional: Well developed, well nourished, no acute distress, non-toxic appearance. [] HENT: Normocephalic, atraumatic, bilateral external ears normal, oropharynx moist, no oral exudates, nose normal. [] Eyes: PERRLA, EOMI, conjunctiva normal, no discharge. [] Cardiovascular:Heart rate regular rhythm, no murmur [] Lungs & Thorax: Bilateral breath sounds clear to auscultation [] Abdomen: Bowel sounds normal, soft, no tenderness, no masses, no pulsatile masses. [] Skin: Warm, dry, no erythema, no rash. [] Extremities: Bilateral BKA, no edema, incision without drainage [] Neurologic: Alert and oriented X 3, no focal deficits noted. [] Psychologic: Affect normal, judgement normal, mood normal. [] Current Patient Data Vital Signs Vital Signs Date Time Temp Pulse Resp B/P (MAP) Pulse Ox O2 Delivery O2 Flow Rate FiO2 04/17/19 23:15 22 98 Room Air 04/17/19 22:47 98.1 89 143/71 (95) 98.1 EKG EKG [] Radiology/Procedures Radiology/Procedures [] Course & Med Decision Making Course & Med Decision Making Pertinent Labs and Imaging studies reviewed. (See chart for details) []58-year-old female known history of hypertension, diabetes, chronic pain, end-stage renal disease hemodialysis dependent, noncompliance, presents to the emergency department with complaints of bilateral lower extremity pain. Patient states she was given [place] today around 11 with dialysis however subsequently has had continued pain. She has no pain medications at home. Patient is afebrile, saturations 98% on room air, blood pressure 146/71. Patient denies c hest pain, SOB, nausea/vomiting, abdominal pain. Patient complains of bilateral leg pain. Nothing makes her pain worse, nothing makes her pain better. Patient with complaints of bilateral leg pain Morphine 5mg IM, [place] 5mg po Discussed with patient to establish care with her PCP for further pain control as an outpatient No labs obtained given no other complaints aside from pain Plan dc home Dragon Disclaimer Dragon Disclaimer This electronic medical record was generated, in whole or in part, using a voice recognition dictation system. Departure Departure Impression: Primary Impression: Phantom limb pain Disposition: HOME, SELF-CARE Condition: IMPROVED Referrals: GRACIELA JUAREZ MD (PCP) Patient Instructions: Phantom Limb Pain Additional Instructions: Recommend follow up with PCP 3 - 5 days, if continued pain issues may need further pain management Return to the ER with worsening symptoms, fever, altered mental status Tylenol/Motrin as needed for pain MALLORY HOLLAND MD Apr 17, 2019 23:10
[2019-04-17] MEDS ORDERED: MORPHINE SULFATE 10 MG/ML VIAL. IM ONE (23:15)
[2019-04-17] MEDS ORDERED: HYDROcodone/APAP 7.5/325MG 1 TAB TABLET PO ONE (23:15)
[2019-04-18 00:29] VITALS: BP 152/68
[2019-04-20] MEDS ORDERED: HYDR-2761 PO (12:29)
[2019-04-20] MEDS ORDERED: AMOX1TAB10 PO (12:29)
[2019-04-20] MEDS ORDERED: DOXY100T PO (12:29)
== END 2019-04-18 00:55 | disposition home or self-care (01) ==
LOC: ER 22:47
DX: G54.6 Phantom limb syndrome with pain (principal); I12.0 Hypertensive chronic kidney disease with stage 5 chronic kidney disease or end stage renal disease; E11.22 Type 2 diabetes mellitus with diabetic chronic kidney disease; N18.6 End stage renal disease; Z99.2 Dependence on renal dialysis; Z91.15 Patient's noncompliance with renal dialysis; E11.40 Type 2 diabetes mellitus with diabetic neuropathy, unspecified; G89.29 Other chronic pain; Z90.710 Acquired absence of both cervix and uterus; Z89.512 Acquired absence of left leg below knee; Z89.511 Acquired absence of right leg below knee
CPT/HCPCS: 96372; 99284; J2270

== ENCOUNTER 2019-04-24 05:36 | Observation (INO) | payer MEDICAID ==
[~2019-04-24] VITALS: Ht 134.6 cm; Wt 54.9 kg
--- NOTE | 2019-04-24 06:44 | PHYS DOC ---
Past Medical History Past Medical History: Anemia, Anxiety, Hypertension, Hypothyroid, Renal Disease Additional Past Medical Histor: neuropathy, cataracts,CHRONIC PAIN,ESRD Past Surgical History: Other Additional Past Surgical Histo: bilateral bka, shunt, hysterectomy Alcohol Use: None Drug Use: None Adult General Chief Complaint Chief Complaint: OTHER COMPLAINTS HPI HPI Patient is a 58-year-old female presents to the emergency department for evaluation via EMS. Her main complaint is diffuse body pain all over after having numerous falls over the past 24 hours. She has a history of bilateral BKA's, and states that she fell out of her wheelchair, while transferring, and hit her head and is having low back pain as well. She also complains of pain in her leg stumps bilaterally which appear atraumatic. She has recently been hospitalized at this facility, due to dialysis-related issues, and underwent a fistulogram with thrombectomy late last week. She states her last dialysis was Monday. She did not go to dialysis on Monday citing transportation issues. She states she is due for dialysis today but her transportation is supposed to come at 8:00 in the morning. She has a history of noncompliance with dialysis. She has been hospitalized at this facility and seen in this emergency department numerous times recently. Recent relevant notes have been reviewed. Review of Systems Review of Systems Constitutional: Denies fever or chills [] Eyes: Denies change in visual acuity, redness, or eye pain [] HENT: Denies nasal congestion or sore throat [] Respiratory: Denies cough or shortness of breath [] Cardiovascular: The patient denies any shortness of breath, chest pain, palpitations, or orthopnea [] GI: Denies abdominal pain, nausea, vomiting, bloody stools or diarrhea [] : Denies dysuria or hematuria [] Musculoskeletal: Reports lower back pain, bilateral lower extremity pain.[] Integument: Denies rash or skin lesions [] Neurologic: Denies focal weakness or sensory changes [] Endocrine: Denies polyuria or polydipsia [] All other systems were reviewed and found to be within normal limits, except as documented in this note. Current Medications Current Medications Current Medications Medications (Trade) Dose Ordered Sig/Clarence Start Time Stop Time Status Last Admin Dose Admin Acetaminophen (Tylenol) 1,000 mg 1X ONCE 04/24/19 06:45 04/24/19 06:46 DC Allergies Allergies Allergies Coded Allergies Type Severity Reaction Last Updated Verified No Known Drug Allergies 02/27/19 No Physical Exam Physical Exam PHYSICAL EXAM: CONSTITUTIONAL: Well developed, well nourished HEAD: normocephalic, atraumatic EENT: PERRL, EOMI. Conjunctivae normal color, sclerae non-icteric; moist mucous membranes. NECK: Supple, non-tender; no meningismus.There is full, painless range of motion of the cervical spine, without any focal bony midline tenderness to palpation. LUNGS: Lungs CTA, breathing even and unlabored. Normal air movement. HEART: Regular rate and rhythm, no murmur CHEST: No deformity; non-tender ABDOMEN: The abdomen is soft, and non-tender, no masses or bruits. EXTREM: Normal ROM; no deformity,. Normal pulses palpable in all extremities. There is no pedal edema. There are bilateral BKA's. There is no bony deformity or tenderness to palpation or abnormality or evidence of trauma to the lower extremities. The upper extremities are atraumatic. There is a fistula in the left upper extremity, with a palpable pulse, but no definite thrill. SKIN: No rash; no diaphoresis NEURO: Alert; normal speech and cognition; CN's grossly intact; strength grossly intact without focal deficit. BACK: No CVA TTP. There is diffuse tenderness to palpation to the thoracic and lumbar spine, there is mild soft tissue swelling to the lumbar spinal area. Current Patient Data Vital Signs Vital Signs Date Time Temp Pulse Resp B/P (MAP) Pulse Ox O2 Delivery O2 Flow Rate FiO2 04/24/19 08:13 86 20 187/86 (119) 100 Room Air 04/24/19 05:36 98.5 98.5 Lab Values Laboratory Tests Test 04/24/19 06:54 White Blood Count 7.6 x10^3/uL (4.0-11.0) Red Blood Count 2.99 x10^6/uL (3.50-5.40) L Hemoglobin 8.3 g/dL (12.0-15.5) L Hematocrit 25.3 % (36.0-47.0) L Mean Corpuscular Volume 85 fL (79-100) Mean Corpuscular Hemoglobin 28 pg (25-35) Mean Corpuscular Hemoglobin Concent 33 g/dL (31-37) Red Cell Distribution Width 21.3 % (11.5-14.5) H Platelet Count 275 x10^3/uL (140-400) Neutrophils (%) (Auto) 72 % (31-73) Lymphocytes (%) (Auto) 17 % (24-48) L Monocytes (%) (Auto) 9 % (0-9) Eosinophils (%) (Auto) 0 % (0-3) Basophils (%) (Auto) 2 % (0-3) Neutrophils # (Auto) 5.5 x10^3/uL (1.8-7.7) Lymphocytes # (Auto) 1.3 x10^3/uL (1.0-4.8) Monocytes # (Auto) 0.7 x10^3/uL (0.0-1.1) Eosinophils # (Auto) 0.0 x10^3/uL (0.0-0.7) Basophils # (Auto) 0.1 x10^3/uL (0.0-0.2) Platelet Estimate Adequate (ADEQUATE) Anisocytosis Slight Sodium Level 139 mmol/L (136-145) Potassium Level 5.6 mmol/L (3.5-5.1) H Chloride Level 99 mmol/L (98-107) Carbon Dioxide Level 30 mmol/L (21-32) Anion Gap 10 (6-14) Blood Urea Nitrogen 46 mg/dL (7-20) H Creatinine 6.5 mg/dL (0.6-1.0) H Estimated GFR (Cockcroft-Gault) 8.0 BUN/Creatinine Ratio 7 (6-20) Glucose Level 157 mg/dL (70-99) H Calcium Level 8.8 mg/dL (8.5-10.1) Total Bilirubin 0.4 mg/dL (0.2-1.0) Aspartate Amino Transferase (AST) 22 U/L (15-37) Alanine Aminotransferase (ALT) 16 U/L (14-59) Alkaline Phosphatase 88 U/L (46-116) Total Protein 7.1 g/dL (6.4-8.2) Albumin 3.0 g/dL (3.4-5.0) L Albumin/Globulin Ratio 0.7 (1.0-1.7) L Laboratory Tests 04/24/19 06:54 Laboratory Tests 04/24/19 06:54 EKG EKG [] Normal sinus rhythm at a rate of 82 beats for minute, borderline left axis deviation, normal intervals, left ventricular hypertrophy, mildly peaked T waves, lateral T wave inversion, without acute ischemic changes, or significant change compared to patient's prior surgery. Radiology/Procedures Radiology/Procedures PROCEDURE: CT LUMBAR SPINE WO CONTRAST CT LUMBAR SPINE WO CONTRAST Date: 04/24/2019 6:29 AM Indication: Fall, pain Comparison: CT abdomen pelvis 03/29/2019. Technique: Helical CT images of the lumbar spine were obtained without contrast. Coronal and sagittal reformatted images were also performed. One or more of the following dose reduction techniques were utilized: Automated exposure control (AEC), Adjustment of mA and/or kV according to patient size, Use of iterative reconstruction technique such as ASiR, CT scan done according to ALARA and image gently/image wisely. Findings: Left convex curvature centered at L2-3. No acute fracture. Vertebral body heights are maintained without compression deformity. No aggressive lytic or blastic osseous lesion. Multilevel degenerative disc space height loss, worst and severe at L2-3 with endplate irregularity and sclerosis. Multilevel spinal canal stenosis secondary to multilevel disc bulging and facet arthrosis, worst and [id number] at L2-3. Multilevel mild and moderate neuroforaminal narrowing. Multilevel mild and moderate facet arthrosis. Small right and trace left pleural effusions. Diffuse atherosclerotic vascular calcifications. IMPRESSION: 1. No acute osseous abnormality of the lumbar spine. 2. Focal severe degenerative disc disease at L2-3, similar to prior's. 3. Small right and trace left pleural effusions. [] PROCEDURE: THORACIC SPINE 3V EXAM: Thoracic spine, 3 views. HISTORY: Fall. COMPARISON: None. FINDINGS: 3 views of the thoracic spine are obtained. No fracture is seen. There is degenerative endplate remodeling at the mid lower cervical levels. There is diffuse central predominant pulmonary infiltrate and cardiomegaly. IMPRESSION: 1. No acute osseous finding. 2. Degenerative change primarily involving the mid and lower cervical spine. 3. Diffuse central predominant pulmonary infiltrate. Correlate with a dedicated chest radiograph. PROCEDURE: CT HEAD WO CONTRAST CT HEAD WO CONTRAST Date: 04/24/2019 7:56 AM Clinical Indication: Pain after falling Comparison: 10/26/2018. Technique: 5 mm axial tomographic images were obtained of the head without contrast. These were viewed on brain and bone windows. One or more of the following dose reduction techniques were utilized: Automated exposure control (AEC), Adjustment of mA and/or kV according to patient size, Use of iterative reconstruction technique such as ASiR, CT scan done according to ALARA and image gently/image wisely Findings: Mild nonspecific periventricular hypoattenuation is most consistent with chronic small vessel ischemic disease. No intra- or extra-axial mass or fluid collection. No acute hemorrhage. The ventricles are normal in size, shape, and morphology. The ovalles-white matter junction is normal. The subarachnoid cisterns are patent. Chronic right lamina papyracea fracture. The visualized paranasal sinuses are normal. The visualized portions of the orbits and globes are normal. The mastoid air cells are clear. The custom furrier topogram shows no lytic lesion or fracture. Impression: No acute intracranial process. Course & Med Decision Making Course & Med Decision Making Pertinent Labs and Imaging studies reviewed. (See chart for details) []10:00 AM: The patient's condition remains stable. I spoke with the hospitalist, who accepted the patient to the hospital for further evaluation and treatment. I spoke with nephrology as well. The patient continues to have difficulty to care for herself, including getting her dialysis appointments. Dragon Disclaimer Dragon Disclaimer This electronic medical record was generated, in whole or in part, using a voice recognition dictation system. Departure Departure Impression: Primary Impression: ESRD (end stage renal disease) on dialysis Additional Impressions: Missed dialysis Hyperkalemia Disposition: ADMITTED INPATIENT Condition: STABLE Referrals: NO PCP (PCP) Problem Qualifiers ADALBERTO RUFF MD Apr 24, 2019 06:44
[2019-04-24] MEDS ORDERED: ACETAMINOPHEN 500 MG TABLET PO ONE (06:45)
[2019-04-24 07:05] LABS: BASO # 0.1 x10^3/uL (0.0-0.2); BASO % 2 % (0-3); EOS % 0 % (0-3); HEMATOCRIT 25.3 % (36.0-47.0); HEMOGLOBIN 8.3 g/dL (12.0-15.5); LYMPH # 1.3 x10^3/uL (1.0-4.8); LYMPH % 17 % (24-48); MEAN CORPUSCULAR HEMOGLOBIN 28 pg (25-35); MEAN CORPUSCULAR HGB CONC 33 g/dL (31-37); MEAN CORPUSCULAR VOLUME 85 fL (79-100); MONO # 0.7 x10^3/uL (0.0-1.1); MONO % 9 % (0-9); NEUT # 5.5 x10^3/uL (1.8-7.7); NEUT % 72 % (31-73); PLATELET COUNT 275 x10^3/uL (140-400); RED BLOOD COUNT 2.99 x10^6/uL (3.50-5.40); RED CELL DISTRIBUTION WIDTH 21.3 % (11.5-14.5); WHITE BLOOD COUNT 7.6 x10^3/uL (4.0-11.0)
[2019-04-24 07:17] LABS: CALCIUM 8.8 mg/dL (8.5-10.1); CREATININE 6.5 mg/dL (0.6-1.0); POTASSIUM 5.6 mmol/L (3.5-5.1)
[2019-04-24 07:23] LABS: ALBUMIN/GLOBULIN RATIO 0.7 (1.0-1.7); TOTAL BILIRUBIN 0.4 mg/dL (0.2-1.0); TOTAL PROTEIN 7.1 g/dL (6.4-8.2)
--- NOTE | 2019-04-24 07:44 | RAD ---
CT LUMBAR SPINE WO CONTRAST Date: 04/24/2019 6:29 AM Indication: Fall, pain Comparison: CT abdomen pelvis 03/29/2019. Technique: Helical CT images of the lumbar spine were obtained without contrast. Coronal and sagittal reformatted images were also performed. One or more of the following dose reduction techniques were utilized: Automated exposure control (AEC), Adjustment of mA and/or kV according to patient size, Use of iterative reconstruction technique such as ASiR, CT scan done according to ALARA and image gently/image wisely. Findings: Left convex curvature centered at L2-3. No acute fracture. Vertebral body heights are maintained without compression deformity. No aggressive lytic or blastic osseous lesion. Multilevel degenerative disc space height loss, worst and severe at L2-3 with endplate irregularity and sclerosis. Multilevel spinal canal stenosis secondary to multilevel disc bulging and facet arthrosis, worst and [id number] at L2-3. Multilevel mild and moderate neuroforaminal narrowing. Multilevel mild and moderate facet arthrosis. Small right and trace left pleural effusions. Diffuse atherosclerotic vascular calcifications. IMPRESSION: 1. No acute osseous abnormality of the lumbar spine. 2. Focal severe degenerative disc disease at L2-3, similar to prior's. 3. Small right and trace left pleural effusions. Electronically signed by: Jeffrey Vides MD (04/24/2019 7:41 AM) [id number]
--- NOTE | 2019-04-24 08:22 | RAD ---
EXAM: Thoracic spine, 3 views. HISTORY: Fall. COMPARISON: None. FINDINGS: 3 views of the thoracic spine are obtained. No fracture is seen. There is degenerative endplate remodeling at the mid lower cervical levels. There is diffuse central predominant pulmonary infiltrate and cardiomegaly. IMPRESSION: 1. No acute osseous finding. 2. Degenerative change primarily involving the mid and lower cervical spine. 3. Diffuse central predominant pulmonary infiltrate. Correlate with a dedicated chest radiograph. Electronically signed by: Ronna Jacob MD (04/24/2019 8:19 AM) [facility]
[2019-04-24 08:27] LABS: ANISOCYTOSIS SLIGHT; PLT ESTIMATE ADEQUATE (ADEQUATE)
--- NOTE | 2019-04-24 08:57 | RAD ---
CT HEAD WO CONTRAST Date: 04/24/2019 7:56 AM Clinical Indication: Pain after falling Comparison: 10/26/2018. Technique: 5 mm axial tomographic images were obtained of the head without contrast. These were viewed on brain and bone windows. One or more of the following dose reduction techniques were utilized: Automated exposure control (AEC), Adjustment of mA and/or kV according to patient size, Use of iterative reconstruction technique such as ASiR, CT scan done according to ALARA and image gently/image wisely Findings: Mild nonspecific periventricular hypoattenuation is most consistent with chronic small vessel ischemic disease. No intra- or extra-axial mass or fluid collection. No acute hemorrhage. The ventricles are normal in size, shape, and morphology. The ovalles-white matter junction is normal. The subarachnoid cisterns are patent. Chronic right lamina papyracea fracture. The visualized paranasal sinuses are normal. The visualized portions of the orbits and globes are normal. The mastoid air cells are clear. The program director scouting topogram shows no lytic lesion or fracture. Impression: No acute intracranial process. Electronically signed by: Jeffrey Vides MD (04/24/2019 8:55 AM) [facility]
--- NOTE | 2019-04-24 11:07 | PDOC ---
Renal-Progress Notes Subjective Notes Notes WEAKNESS AND PAIN, NEEDS PAIN MEDS History of Present Illness Hx of present illness STABLE Vitals Vitals Vital Signs Date Time Temp Pulse Resp B/P (MAP) Pulse Ox O2 Delivery O2 Flow Rate FiO2 04/24/19 08:45 86 20 158/88 (111) 100 Room Air 04/24/19 05:36 98.5 98.5 Weight Weight [ ] Labs Labs Laboratory Tests Test 04/24/19 06:54 White Blood Count 7.6 x10^3/uL (4.0-11.0) Red Blood Count 2.99 x10^6/uL (3.50-5.40) Hemoglobin 8.3 g/dL (12.0-15.5) Hematocrit 25.3 % (36.0-47.0) Mean Corpuscular Volume 85 fL (79-100) Mean Corpuscular Hemoglobin 28 pg (25-35) Mean Corpuscular Hemoglobin Concent 33 g/dL (31-37) Red Cell Distribution Width 21.3 % (11.5-14.5) Platelet Count 275 x10^3/uL (140-400) Neutrophils (%) (Auto) 72 % (31-73) Lymphocytes (%) (Auto) 17 % (24-48) Monocytes (%) (Auto) 9 % (0-9) Eosinophils (%) (Auto) 0 % (0-3) Basophils (%) (Auto) 2 % (0-3) Neutrophils # (Auto) 5.5 x10^3/uL (1.8-7.7) Lymphocytes # (Auto) 1.3 x10^3/uL (1.0-4.8) Monocytes # (Auto) 0.7 x10^3/uL (0.0-1.1) Eosinophils # (Auto) 0.0 x10^3/uL (0.0-0.7) Basophils # (Auto) 0.1 x10^3/uL (0.0-0.2) Platelet Estimate Adequate (ADEQUATE) Anisocytosis Slight Sodium Level 139 mmol/L (136-145) Potassium Level 5.6 mmol/L (3.5-5.1) Chloride Level 99 mmol/L (98-107) Carbon Dioxide Level 30 mmol/L (21-32) Anion Gap 10 (6-14) Blood Urea Nitrogen 46 mg/dL (7-20) Creatinine 6.5 mg/dL (0.6-1.0) Estimated GFR (Cockcroft-Gault) 8.0 BUN/Creatinine Ratio 7 (6-20) Glucose Level 157 mg/dL (70-99) Calcium Level 8.8 mg/dL (8.5-10.1) Total Bilirubin 0.4 mg/dL (0.2-1.0) Aspartate Amino Transf (AST/SGOT) 22 U/L (15-37) Alanine Aminotransferase (ALT/SGPT) 16 U/L (14-59) Alkaline Phosphatase 88 U/L (46-116) Total Protein 7.1 g/dL (6.4-8.2) Albumin 3.0 g/dL (3.4-5.0) Albumin/Globulin Ratio 0.7 (1.0-1.7) Review of Systems Constitutional: yes: weakness, alert, oriented Ears/Nose/Throat: Yes: no symptom reported Eyes: Yes: no symptom reported Pulmonary: Yes no symptom reported Cardiovascular: Yes no symptom reported Gastrointestional: Yes: constipation Genitourinary: Yes: no symptom reported Musculoskeletal: Yes: muscle stiffness Skin: Yes no symptom reported Psychiatric/Neurological: Yes: no symptom reported Endocrine: Yes: no symptom reported Hematologic/Lymphatic: Yes: no symptom reported Physical Exam General Appearance: no apparent distress Respiratory: bilateral CTA Heart: S1S2 Abdomen: soft, bowel sounds present Genitourinary: bladder flat Extremities: pulses present Neurology: alert, oriented Musculoskeletal: Other Assessment Assessment IMP HYPERKALEMIA ADDICTION TO PAIN MEDS CHF-DIASTOLIC NON COMPLIANCE HTN - MALIGNANT ANEMIA ESRD S/P RECENT AVG THROMBECTOMY-PATENT PAD WITH BILATERAL BKA PLAN HD TODAY UF TO [facility] COREA ENC COMPLIANCE BENY PAINTER MD Apr 24, 2019 11:07
[2019-04-24 12:00] VITALS: BP 197/90
--- NOTE | 2019-04-24 12:15 | NUR ---
Patient refusing to answer any admission questions, states just wants pain medicine. Advised patient no IV pain meds and gave her hydrocodone. Patient also refusing a full head to toe assessment so completed what I could.
--- NOTE | 2019-04-24 12:34 | EKG ---
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
--- NOTE | 2019-04-24 13:13 | PDOC1 ---
History and Physical Date of Admission Date of Admission DATE: 04/24/19 TIME: 13:13 Identification/Chief Complaint Chief Complaint seen in er , 58-year-old female presents to the emergency department for evaluation via EMS. Her main complaint is diffuse body pain all over after having numerous falls over the past 24 hours. She has a history of bilateral BKA's, and states that she fell out of her wheelchair, while transferring, and hit her head and is having low back pain as well. She also complains of pain in her leg stumps bilaterally which appear atraumatic. She has recently been hospitalized at this facility, due to dialysis-related issues, and underwent a fistulogram with thrombectomy late last week. She states her last dialysis was Monday. She did not go to dialysis on Monday citing transportation issues. She states she is due for dialysis Past Medical History Past Medical History Past Medical History Past Medical History: Anemia, Anxiety, Hypertension, Hypothyroid, Renal Disease Additional Past Medical Histor: neuropathy, cataracts,CHRONIC PAIN,ESRD Past Surgical History: Other Additional Past Surgical Histo: bilateral bka, shunt, hysterectomy Alcohol Use: None Drug Use: None fhx obesity Cardiovascular: CHF, HTN, Hyperlipidemia, Other Pulmonary: Asthma CENTRAL NERVOUS SYSTEM: Periperal neuropathy GI: GERD Heme/Onc: Anemia NOS Hepatobiliary: No pertinent hx Psych: Bipolar Musculoskeletal: Other Rheumatologic: Fibromyalgia Infectious disease: No pertinent hx Renal/: Chronic renal failure Endocrine: Diabetes, Hypothyroidism, Hyperparathyroidism Past Surgical History Past Surgical History: Hysterectomy, Other Family History Family History: Hypertension Social History Smoke: No ALCOHOL: none Drugs: None Current Problem List Problem List Problems Medical Problems: (1) ESRD (end stage renal disease) on dialysis Status: Chronic (2) Hyperkalemia Status: Acute (3) Missed dialysis Status: Acute Current Medications Current Medications Current Medications Acetaminophen (Tylenol) 1,000 mg 1X ONCE PO ; Start 04/24/19 at 06:45; Stop 04/24/19 at 06:46; Status DC Darbepoetin Jarrett (ARANESP for DIALYSIS PTS) 60 mcg WEEKLYHS SQ ; Start 04/24/19 at 21:00 Active Scripts Active Doxycycline Hyclate 100 Mg Tablet 100 Mg PO DAILY 7 Days Amox Tr-K Clv 500-125 Mg Tab (Amoxicillin/Potassium Clav) 1 Each Tablet 1 Tab PO DAILY 7 Days Hydrocodone-Apap 5-325 (Hydrocodone Bit/Acetaminophen) 1 Tab Tablet 1 Tab PO PRN Q6HRS PRN 6 Days Guaifenesin Dm Syrup (Guaifenesin/Dextromethorphan) 5 Ml Syrup 10 Ml PO PRN Q6HRS PRN 10 Days Ondansetron Odt (Ondansetron) 4 Mg Tab.rapdis 1 Tab PO PRN Q6-8HRS PRN Carvedilol (Carvedilol) 6.25 Mg Tablet 12.5 Mg PO BIDWMEALS Hydralazine Hcl 25 Mg Tablet 25 Mg PO TID Humalog (Insulin Lispro) 100 Unit/1 Ml Insuln.pen 0 Units SQ TIDWMEALS 28 Days Culturelle (Lactobacillus Rhamnosus Gg) 1 Each Cap.sprink 1 Cap PO BID 30 Days Ondansetron Odt (Ondansetron) 4 Mg Tab.rapdis 4 Mg PO PRN Q6HRS PRN 28 Days Clopidogrel (Clopidogrel Bisulfate) 75 Mg Tablet 75 Mg PO DAILYWBKFT 30 Days Pinky-Shreya Tablet (Folic Acid/Vitamin B Comp W-C) 0.8 Mg Tablet 1 Tab PO DAILY Tylenol (Acetaminophen) 325 Mg Capsule 650 Mg PO Q6-8HRS PRN Zantac (Ranitidine Hcl) 300 Mg Tablet 1 Tab PO QHS Compazine (Prochlorperazine Maleate) 5 Mg Tablet 5 Mg PO PRN TID PRN 10 Days [Pantoprazole] 40 MG Tablet. 40 Mg PO DAILYAC 30 Days Reported Zoloft (Sertraline Hcl) 50 Mg Tablet 50 Mg PO DAILY Lisinopril 20 Mg Tablet 20 Mg PO DAILY Shante Knowles 6,000 Units Capsule (Lipase/Protease/Amylase) 1 Each Capsule. 1 Tab PO TID Proair Hfa (Albuterol Sulfate) 8.5 Gm Hfa.aer.ad 2 Puff INH BID PRN Levothyroxine Sodium 50 Mcg Tablet 1 Tab PO DAILY Clonidine Tts-2 (Clonidine) 1 Each Patch.tdwk 1 Patch TD WEEKLY Amlodipine Besylate 5 Mg Tablet 10 Mg PO DAILY Atorvastatin Calcium 40 Mg Tablet 40 Mg PO HS Latanoprost 2.5 Ml Drops 1 Drop EACHEYE HS Allergies Allergies: Coded Allergies: No Known Drug Allergies (Unverified , 12/4/19) ROS Review of System Review of Systems Review of Systems Constitutional: Denies fever or chills [] Eyes: Denies change in visual acuity, redness, or eye pain [] HENT: Denies nasal congestion or sore throat [] Respiratory: Denies cough or shortness of breath [] Cardiovascular: The patient denies any shortness of breath, chest pain, palpitations, or orthopnea [] GI: Denies abdominal pain, nausea, vomiting, bloody stools or diarrhea [] : Denies dysuria or hematuria [] Musculoskeletal: Reports lower back pain, bilateral lower extremity pain.[] Integument: Denies rash or skin lesions [] Neurologic: Denies focal weakness or sensory changes [] Endocrine: Denies polyuria or polydipsia [] 14 pt systems were reviewed and found to be within normal limits, except as documented Physical Exam Physical Exam CONSTITUTIONAL: Well developed, well nourished HEAD: normocephalic, atraumatic EENT: PERRL, EOMI. Conjunctivae normal color, sclerae non-icteric; moist mucous membranes. NECK: Supple, non-tender; no meningismus.There is full, painless range of motion of the cervical spine, without any focal bony midline tenderness to palpation. LUNGS: Lungs CTA, breathing even and unlabored. Normal air movement. HEART: Regular rate and rhythm, no murmur CHEST: No deformity; non-tender ABDOMEN: The abdomen is soft, and non-tender, no masses or bruits. EXTREM: Normal ROM; no deformity,. Normal pulses palpable in all extremities. There is no pedal edema. There are bilateral BKA's. There is no bony deformity or tenderness to palpation or abnormality or evidence of trauma to the lower extremities. The upper extremities are atraumatic. There is a fistula in the left upper extremity, with a palpable pulse, but no definite thrill. SKIN: No rash; no diaphoresis NEURO: Alert; normal speech and cognition; CN's grossly intact; strength grossly intact without focal deficit. BACK: No CVA TTP. There is diffuse tenderness to palpation to the thoracic and lumbar spine, there is mild soft tissue swelling to the lumbar spinal area. Vitals Vitals Vital Signs Date Time Temp Pulse Resp B/P (MAP) Pulse Ox O2 Delivery O2 Flow Rate FiO2 04/24/19 11:40 88 20 184/75 (111) 100 Room Air 1/29/20 05:36 98.5 98.5 Labs Labs Laboratory Tests Test 04/24/19 06:54 White Blood Count 7.6 x10^3/uL (4.0-11.0) Red Blood Count 2.99 x10^6/uL (3.50-5.40) Hemoglobin 8.3 g/dL (12.0-15.5) Hematocrit 25.3 % (36.0-47.0) Mean Corpuscular Volume 85 fL (79-100) Mean Corpuscular Hemoglobin 28 pg (25-35) Mean Corpuscular Hemoglobin Concent 33 g/dL (31-37) Red Cell Distribution Width 21.3 % (11.5-14.5) Platelet Count 275 x10^3/uL (140-400) Neutrophils (%) (Auto) 72 % (31-73) Lymphocytes (%) (Auto) 17 % (24-48) Monocytes (%) (Auto) 9 % (0-9) Eosinophils (%) (Auto) 0 % (0-3) Basophils (%) (Auto) 2 % (0-3) Neutrophils # (Auto) 5.5 x10^3/uL (1.8-7.7) Lymphocytes # (Auto) 1.3 x10^3/uL (1.0-4.8) Monocytes # (Auto) 0.7 x10^3/uL (0.0-1.1) Eosinophils # (Auto) 0.0 x10^3/uL (0.0-0.7) Basophils # (Auto) 0.1 x10^3/uL (0.0-0.2) Platelet Estimate Adequate (ADEQUATE) Anisocytosis Slight Sodium Level 139 mmol/L (136-145) Potassium Level 5.6 mmol/L (3.5-5.1) Chloride Level 99 mmol/L (98-107) Carbon Dioxide Level 30 mmol/L (21-32) Anion Gap 10 (6-14) Blood Urea Nitrogen 46 mg/dL (7-20) Creatinine 6.5 mg/dL (0.6-1.0) Estimated GFR (Cockcroft-Gault) 8.0 BUN/Creatinine Ratio 7 (6-20) Glucose Level 157 mg/dL (70-99) Calcium Level 8.8 mg/dL (8.5-10.1) Total Bilirubin 0.4 mg/dL (0.2-1.0) Aspartate Amino Transf (AST/SGOT) 22 U/L (15-37) Alanine Aminotransferase (ALT/SGPT) 16 U/L (14-59) Alkaline Phosphatase 88 U/L (46-116) Total Protein 7.1 g/dL (6.4-8.2) Albumin 3.0 g/dL (3.4-5.0) Albumin/Globulin Ratio 0.7 (1.0-1.7) Laboratory Tests Test 04/24/19 06:54 White Blood Count 7.6 x10^3/uL (4.0-11.0) Red Blood Count 2.99 x10^6/uL (3.50-5.40) Hemoglobin 8.3 g/dL (12.0-15.5) Hematocrit 25.3 % (36.0-47.0) Mean Corpuscular Volume 85 fL (79-100) Mean Corpuscular Hemoglobin 28 pg (25-35) Mean Corpuscular Hemoglobin Concent 33 g/dL (31-37) Red Cell Distribution Width 21.3 % (11.5-14.5) Platelet Count 275 x10^3/uL (140-400) Neutrophils (%) (Auto) 72 % (31-73) Lymphocytes (%) (Auto) 17 % (24-48) Monocytes (%) (Auto) 9 % (0-9) Eosinophils (%) (Auto) 0 % (0-3) Basophils (%) (Auto) 2 % (0-3) Neutrophils # (Auto) 5.5 x10^3/uL (1.8-7.7) Lymphocytes # (Auto) 1.3 x10^3/uL (1.0-4.8) Monocytes # (Auto) 0.7 x10^3/uL (0.0-1.1) Eosinophils # (Auto) 0.0 x10^3/uL (0.0-0.7) Basophils # (Auto) 0.1 x10^3/uL (0.0-0.2) Platelet Estimate Adequate (ADEQUATE) Anisocytosis Slight Sodium Level 139 mmol/L (136-145) Potassium Level 5.6 mmol/L (3.5-5.1) Chloride Level 99 mmol/L (98-107) Carbon Dioxide Level 30 mmol/L (21-32) Anion Gap 10 (6-14) Blood Urea Nitrogen 46 mg/dL (7-20) Creatinine 6.5 mg/dL (0.6-1.0) Estimated GFR (Cockcroft-Gault) 8.0 BUN/Creatinine Ratio 7 (6-20) Glucose Level 157 mg/dL (70-99) Calcium Level 8.8 mg/dL (8.5-10.1) Total Bilirubin 0.4 mg/dL (0.2-1.0) Aspartate Amino Transf (AST/SGOT) 22 U/L (15-37) Alanine Aminotransferase (ALT/SGPT) 16 U/L (14-59) Alkaline Phosphatase 88 U/L (46-116) Total Protein 7.1 g/dL (6.4-8.2) Albumin 3.0 g/dL (3.4-5.0) Albumin/Globulin Ratio 0.7 (1.0-1.7) VTE Prophylaxis Ordered VTE Prophylaxis Devices: Contraindicated VTE Pharmacological Prophylaxi: Yes Assessment/Plan Assessment/Plan impression ESRD WITH MISSED DIALYSIS AVG placed in September 2018 at [facility] - Left upper arm brachial artery to brachial vein arterial to venous graft placement using PTFE graft. Chronic severe Non compliance with Dialysis as OP as well during hospitalizations- leaves AMA Severe peripheral arterial disease Diabetes w peripheral neuropathy Congestive heart failure with systolic and diastolic dysfunction PLAN ADMIT NEPHROLOGY CONSULT SANGEETHA MUELLER MD Apr 24, 2019 13:13
[2019-04-24] MEDS ORDERED: guaiFENesin DM 200MG/20MG 10 ML SYRUP PO PRN (13:15)
[2019-04-24] MEDS ORDERED: ONDANSETRON ODT 4 MG TAB.RAPDIS. PO PRN ×2 (13:15)
[2019-04-24] MEDS ORDERED: ALBUTEROL SULFATE 2.5 MG/3 ML NEBU. INH PRN (13:15)
[2019-04-24] MEDS ORDERED: PROCHLORPERAZINE 5 MG TABLET. PO PRN (13:15)
[2019-04-24] MEDS: FOLIC/VIT B COMP W-C (RENAL) TABLET. PO SCH (13:36)
[2019-04-24] MEDS: amLODIPine BESYLATE 5 MG TABLET PO SCH (13:36)
[2019-04-24] MEDS: LEVOTHYROXINE 50 MCG TABLET PO SCH (13:36)
[2019-04-24] MEDS: SERTRALINE 50 MG TABLET. PO SCH (13:36)
[2019-04-24] MEDS: CLOPIDOGREL BISULFATE 75 MG TABLET PO SCH (13:37)
[2019-04-24] MEDS: LISINOPRIL 20 MG TABLET PO SCH (13:37)
[2019-04-24] MEDS: HYDROcodone/APAP 5/325MG 1 TAB TABLET PO PRN ×2 (13:38→22:43)
[2019-04-24] MEDS: hydrALAZINE 25 MG TABLET PO SCH (13:38)
[2019-04-24 15:00] VITALS: BP 159/61
[2019-04-24] MEDS: CARVEDILOL 6.25 MG TABLET. PO SCH (16:44)
[2019-04-24] MEDS: INSULIN LISPRO 300 UNITS/3 ML VIAL. SQ SCH (16:46)
--- NOTE | 2019-04-24 18:00 | NUR ---
Patient has been constantly messing her brief. I told her to let us know next time. Twenty minutes later she did it again. An hour later had another accident. I again asked her to please hit her call light so we could get her on the commode she did not respond verbally. She instead while her brief was full and we were cleaning her she passed gas and laughed. She has been consistently doing this from [id number]. Patient is alert and oriented x4 and continent in bowel and bladder. Patient has been rude and disrespectful. She is absolutely refusing to use the bedpan, commode and insist on defecating in her brief. Addendum: 04/24/19 at 180 by TWAN RODRIGUES RN RN patient is not continent of bladder. please note change. Addendum: 04/24/19 at 1810 by TWAN RODRIGUES RN RN Patient is not continent of bladder please note error on last note.
[2019-04-24] MEDS ORDERED: IV NORMAL SALINE 1000ML BAG 1,000 ML IV PRN (20:37)
[2019-04-24] MEDS ORDERED: DIALYSIS PATIENT. MC PRN (20:45)
[2019-04-24] MEDS ORDERED: LABETALOL 20 MG/4 ML DISP.SYRIN. IVP PRN (20:45)
[2019-04-24] MEDS ORDERED: DARBEPOETIN ALFA 60 MCG/0.3 ML DISP.SYRIN. SQ SCH (21:00)
[2019-04-24] MEDS ORDERED: ATORVASTATIN CALCIUM 40 MG TABLET. PO SCH (21:00)
[2019-04-24] MEDS ORDERED: LATANOPROST 0.005% OPHTH SOLUTION 2.5ML BOTTLE. OU SCH (21:00)
[2019-04-24] MEDS: LACTOBACILLUS RHAMNOSUS GG 1 CAPSULE. PO SCH (22:43)
[2019-04-24 23:18] VITALS: BP 171/74
[2019-04-25] MEDS: hydrALAZINE 25 MG TABLET PO SCH ×3 (00:01→14:20)
[2019-04-25 03:17] VITALS: BP 121/46
[2019-04-25] MEDS: LEVOTHYROXINE 50 MCG TABLET PO SCH (06:53)
[2019-04-25] MEDS: HYDROcodone/APAP 5/325MG 1 TAB TABLET PO PRN ×2 (06:53→14:19)
[2019-04-25 07:00] VITALS: BP 158/41
[2019-04-25] MEDS: INSULIN LISPRO 300 UNITS/3 ML VIAL. SQ SCH ×2 (08:00→12:00)
[2019-04-25] MEDS: CLOPIDOGREL BISULFATE 75 MG TABLET PO SCH (08:00)
[2019-04-25] MEDS: CARVEDILOL 6.25 MG TABLET. PO SCH (08:00)
[2019-04-25] MEDS: LISINOPRIL 20 MG TABLET PO SCH (09:00)
[2019-04-25] MEDS: amLODIPine BESYLATE 5 MG TABLET PO SCH (09:00)
[2019-04-25] MEDS: LACTOBACILLUS RHAMNOSUS GG 1 CAPSULE. PO SCH (09:00)
[2019-04-25] MEDS: FOLIC/VIT B COMP W-C (RENAL) TABLET. PO SCH (09:00)
[2019-04-25] MEDS: SERTRALINE 50 MG TABLET. PO SCH (09:00)
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
[2019-04-25 11:00] VITALS: BP 168/51
--- NOTE | 2019-04-25 11:57 | NUR ---
[facility] following. Discussed with RN, pt from home, has been refusing everything here, including answering admission questions, and head to toe assessment. Pt just requesting IV pain meds. Currently no IV abx, no IV pain meds, No PT/OT orders (doesn't normally participate). Nephrology consult. Pt is well known to this SWer, refuses to participate in therapy, then agrees to, then says no. Pt is not allowed back to [facility] per prior admission the last couple months. Pt declines hospice and declines beater head care. Very difficult for [facility] to find any home health agencies to take pt. [facility] will continue to follow. Addendum: 04/25/19 at 1403 by LIN HENDERSON Pt discharging home with self care today at 1430. [facility] transportation will transport pt home, pt's sister will meet at pt's home. RN notified.
--- NOTE | 2019-04-25 11:58 | NUR ---
landscape horticulture instructor and certified nursing assistant attempted to administer medication and patient told them that she was not going to take those medications. Patient also refused blood glucose checks this morning and for lunch. Continues refusing nursing assessment.
--- NOTE | 2019-04-25 12:01 | NUR ---
Dietary reports to nursing staff that patient was calling the kitchen and cursing at staff for not bringing her what foods she wanted. Renal diet is ordered as patient is actively on dialysis. Dietary following diet restrictions for patient.
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
--- NOTE | 2019-04-25 12:17 | DISCH ---
DISCHARGE INSTRUCTIONS Condition on Discharge Condition on Discharge: Guarded Activity After Discharge Activity Instructions for Disc: Activity as tolerated Bathing Instructions: Shower-keep dressing dry, No Tub Bath until see Lifting Instructions after Dis: No heavy lifting Exercise Instruction after Dis: Progress as tolerated Driving Instructions after Dis: Do not drive Weight Bearing Status after Di: No restrictions Diet after Discharge Diet after Discharge: Renal Dialysis Diet Texture: Regular Liquid Texture: Thin Liquid Swallowing Supervision: None needed Wound Incision Care Wound/Incision Care: No wound care needed Wound Care Equipment: Wound vac Checks after Discharge Checks after discharge: Check blood press - daily, Check blood sugar, ac/hs, Check your Temp as needed Contacting the [facility] after DC Call your doctor for: PENDING Treatment/Equipment after DC Adaptive Equipment Issued: None Discharge Respiratory Equipmen: SANGEETHA Olivares MD Apr 25, 2019 12:17
[2019-04-25 14:20] VITALS: BP 168/51
--- NOTE | 2019-04-25 17:14 | NUR ---
Discharge Note: OTTONIEL SMITH S4 DIPAK Discharge instructions and discharge home medications reviewed with Patient and a copy given. All questions have been answered and understanding verbalized. The following instructions and handouts were given: Diet, activity, medication list and follow up instructions provided to patient. Patient verbalized understanding. Discontinued lines and drains: Peripheral IV discontinued and catheter intact. Patient discharged to Home or Self Care with Self via Wheelchair
[2019-05-01] MEDS ORDERED: cloNIDine TTS-2 1 PATCH PATCH TD SCH (09:00)
== END 2019-04-25 13:08 | disposition home or self-care (01) ==
LOC: ER 05:36 → INTOOBSV 10:09 → 4 NORTH 10:09
PROVIDERS: ADMIT Internal Medicine; ATTEND Internal Medicine
DX: I13.2 Hypertensive heart and chronic kidney disease with heart failure and with stage 5 chronic kidney disease, or end stage renal disease (principal); I50.9 Heart failure, unspecified; N18.6 End stage renal disease; F41.9 Anxiety disorder, unspecified; E87.5 Hyperkalemia; E11.22 Type 2 diabetes mellitus with diabetic chronic kidney disease; E03.9 Hypothyroidism, unspecified; D64.9 Anemia, unspecified; K21.9 Gastro-esophageal reflux disease without esophagitis; E21.3 Hyperparathyroidism, unspecified; J45.909 Unspecified asthma, uncomplicated; Z99.2 Dependence on renal dialysis; Z98.890 Other specified postprocedural states; Z90.710 Acquired absence of both cervix and uterus
CPT/HCPCS: 36415; 70450; 72072; 72131; 80053; 85025; 87493; 93005; 94640; 94760; 96372; 99285; G0378; J0882; J7613; Q0162; G0379; J1815

== ENCOUNTER 2019-05-03 | Emergency (ER) | payer MEDICAID ==
[~2019-05-03] VITALS: Ht 134.6 cm; Wt 54.5 kg
--- NOTE | 2019-05-03 00:11 | PHYS DOC ---
Past Medical History Past Medical History: Anemia, Anxiety, Hypertension, Hypothyroid, Renal Disease Additional Past Medical Histor: neuropathy, cataracts,CHRONIC PAIN,ESRD Past Surgical History: Other Additional Past Surgical Histo: bilateral bka, shunt, hysterectomy Smoking Status: Never Smoker Alcohol Use: None Drug Use: None Adult General Chief Complaint Chief Complaint: PAIN CONTROL HPI HPI 58 female with underlying history of end stage renal disease hemodialysis dependent, hypertension, noncompliance presents to the emergency department with complaints of generalized pain. Patient is well-known to this facility, she presents with similar complaints. She states she missed dialysis on Monday secondary to transportation. She denies any chest pain or shortness of breath on examination. Patient has no nausea, headache or visual change. Patient has been hurting "all day." Review of Systems Review of Systems Constitutional: Denies fever or chills [] Respiratory: Denies cough or shortness of breath [] Cardiovascular: No additional information not addressed in HPI [] GI: Denies abdominal pain, nausea, vomiting, bloody stools or diarrhea [] Musculoskeletal: phantom pain Integument: Denies rash or skin lesions [] Neurologic: Denies headache, focal weakness or sensory changes [] All other systems were reviewed and found to be within normal limits, except as documented in this note. Current Medications Current Medications Current Medications Medications (Trade) Dose Ordered Sig/[facility] Start Time Stop Time Status Last Admin Dose Admin Acetaminophen (Tylenol) 1,000 mg 1X ONCE 05/03/19 00:30 05/03/19 00:31 DC 05/03/19 00:31 1,000 MG Allergies Allergies Allergies Coded Allergies Type Severity Reaction Last Updated Verified No Known Drug Allergies 02/27/19 No Physical Exam Physical Exam Constitutional: Well developed, well nourished, no acute distress, non-toxic appearance. [] HENT: Normocephalic, atraumatic, bilateral external ears normal, oropharynx moist, no oral exudates, nose normal. [] Eyes: PERRLA, EOMI, conjunctiva normal, no discharge. [] Cardiovascular:Heart rate regular rhythm, no murmur [] Lungs & Thorax: Bilateral breath sounds clear to auscultation [] Abdomen: Bowel sounds normal, soft, no tenderness, no masses, no pulsatile mass es. [] Skin: Warm, dry, no erythema, no rash. [] Back: No tenderness, no CVA tenderness. [] Extremities: No tenderness, no edema. [] Neurologic: Alert and oriented X 3, no focal deficits noted. [] Psychologic: Affect normal, judgement normal, mood normal. [] Current Patient Data Vital Signs Vital Signs Date Time Temp Pulse Resp B/P (MAP) Pulse Ox O2 Delivery O2 Flow Rate FiO2 05/03/19 00:15 98.6 93 24 172/86 (114) 95 Room Air 98.6 Lab Values Laboratory Tests Test 05/03/19 00:25 Sodium Level 143 mmol/L (136-145) Potassium Level 4.0 mmol/L (3.5-5.1) Chloride Level 102 mmol/L (98-107) Carbon Dioxide Level 31 mmol/L (21-32) Anion Gap 10 (6-14) Blood Urea Nitrogen 44 mg/dL (7-20) H Creatinine 5.6 mg/dL (0.6-1.0) H Estimated GFR (Cockcroft-Gault) 9.5 BUN/Creatinine Ratio 8 (6-20) Glucose Level 214 mg/dL (70-99) H Calcium Level 8.9 mg/dL (8.5-10.1) Total Bilirubin 0.4 mg/dL (0.2-1.0) Aspartate Amino Transferase (AST) 31 U/L (15-37) Alanine Aminotransferase (ALT) 44 U/L (14-59) Alkaline Phosphatase 153 U/L (46-116) H Total Protein 6.8 g/dL (6.4-8.2) Albumin 2.9 g/dL (3.4-5.0) L Albumin/Globulin Ratio 0.7 (1.0-1.7) L Laboratory Tests 05/03/19 00:25 EKG EKG [] Radiology/Procedures Radiology/Procedures [] Course & Med Decision Making Course & Med Decision Making Pertinent Labs and Imaging studies reviewed. (See chart for details) []58 female with underlying history of end stage renal disease hemodialysis dependent, hypertension, noncompliance presents to the emergency department with complaints of generalized pain. Patient is well-known to this facility, she presents with similar complaints. She states she missed dialysis on Monday secondary to transportation. She denies any chest pain or shortness of breath on examination. Patient has no nausea, headache or visual change. Patient has been hurting "all day." Tylenol 1gm po x 1 Labs reviewed, potassium 4.6 Recommend dc home and follow up as outpatient with primary care physician Patient does not need to be admitted at this time Discussed discharge plan with patient Melisa Disclaimer Melisa Disclaimer This electronic medical record was generated, in whole or in part, using a voice recognition dictation system. Departure Departure Impression: Primary Impression: Chronic pain Disposition: 01 HOME, SELF-CARE Condition: STABLE Referrals: NO PCP (PCP) Patient Instructions: Chronic Pain, Chronic Pain Management-Brief Additional Instructions: Recommend follow up with PCP 3 - 5 days Return to the ER with worsening symptoms, intractable pain, fever, altered mental status Tylenol/Motrin as needed for pain Potassium 4.6, no need for admit at this time Problem Qualifiers Primary Impression: Chronic pain Chronic pain type: chronic pain syndrome Qualified Codes: G89.4 - Chronic pain syndrome MALLORY HOLLAND MD May 03, 2019 00:11
[2019-05-03] MEDS ORDERED: ACETAMINOPHEN 500 MG TABLET PO ONE (00:30)
[2019-05-03 00:39] LABS: CALCIUM 8.9 mg/dL (8.5-10.1); CREATININE 5.6 mg/dL (0.6-1.0); GFR 9.5
[2019-05-03 00:45] LABS: ALBUMIN 2.9 g/dL (3.4-5.0); ALBUMIN/GLOBULIN RATIO 0.7 (1.0-1.7); TOTAL BILIRUBIN 0.4 mg/dL (0.2-1.0); TOTAL PROTEIN 6.8 g/dL (6.4-8.2)
[2019-05-03 01:52] VITALS: BP 169/73
== END 2019-05-03 02:27 | disposition home or self-care (01) ==
LOC: ER
DX: G89.4 Chronic pain syndrome (principal); I12.0 Hypertensive chronic kidney disease with stage 5 chronic kidney disease or end stage renal disease; N18.6 End stage renal disease; Z99.2 Dependence on renal dialysis; E03.9 Hypothyroidism, unspecified; E11.40 Type 2 diabetes mellitus with diabetic neuropathy, unspecified; Z90.710 Acquired absence of both cervix and uterus
CPT/HCPCS: 36415; 80053; 99284

== ENCOUNTER 2019-06-10 16:52 | Emergency (ER) | payer MEDICAID ==
[~2019-06-10] VITALS: Ht 162.6 cm; Wt 68.0 kg
[2019-06-10 17:51] VITALS: BP 201/80
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
[2019-06-10] MEDS ORDERED: ACETAMINOPHEN 500 MG TABLET PO ONE (18:30)
== END 2019-06-10 19:20 | disposition home or self-care (01) ==
LOC: ER 16:52
DX: G89.29 Other chronic pain (principal); M54.9 Dorsalgia, unspecified; E03.9 Hypothyroidism, unspecified; I12.0 Hypertensive chronic kidney disease with stage 5 chronic kidney disease or end stage renal disease; N18.6 End stage renal disease; Z86.2 Personal history of diseases of the blood and blood-forming organs and certain disorders involving the immune mechanism
CPT/HCPCS: 99284

== ENCOUNTER 2019-08-05 01:03 | Emergency (ER) | payer MEDICAID ==
[~2019-08-05] VITALS: Ht 127 cm; Wt 63.6 kg
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
--- NOTE | 2019-08-05 01:58 | RAD ---
History: Pain status post fall Two-view thoracic spine Limited 2 view AP lateral views The vertebral bodies are aligned. There is mild kyphosis of the upper thoracic spine. There is no loss of vertebral stature. Intervertebral disc heights are preserved. There is cardiomegaly and bilateral pulmonary infiltrates. IMPRESSION: No evidence of an acute fracture or malalignment. End impression Two-view lumbar sacral spine HISTORY: Pain Limited 2 view AP lateral views There is mild to moderate degenerative levoconvex scoliosis. There is marked chronic discogenic disease at L2-L3 seen on multiple previous studies. There is no loss of vertebral body stature. IMPRESSION: Marked chronic discogenic disease at L2-L3. No acute findings. Electronically signed by: Pj Holliday III, MD (08/05/2019 1:55 AM) [id number]
--- NOTE | 2019-08-05 01:58 | RAD ---
Sacrum coccyx 3 views History: Pain status post fall AP views of the sacrum and coccyx was obtained as well as a lateral view. The visualized osseous structures appear normal. This is a difficult area to evaluate. There is some obscuration of bony detail of the sacrum due to overlying bowel gas. Impression: No acute bony abnormality noted. Electronically signed by: Pj Holliday III, MD (08/05/2019 1:56 AM) [email or web address]
[2019-08-05] MEDS ORDERED: traMADol 50 MG TABLET PO ONE (02:30)
[2019-08-05 02:37] VITALS: BP 174/76
== END 2019-08-05 03:28 | disposition home or self-care (01) ==
LOC: ER 01:03
DX: S30.0XXA Contusion of lower back and pelvis, initial encounter (principal); F41.9 Anxiety disorder, unspecified; E03.9 Hypothyroidism, unspecified; I10 Essential (primary) hypertension; G89.29 Other chronic pain; G62.9 Polyneuropathy, unspecified; F17.200 Nicotine dependence, unspecified, uncomplicated; N18.6 End stage renal disease; Z90.710 Acquired absence of both cervix and uterus; Z98.890 Other specified postprocedural states; W05.0XXA Fall from non-moving wheelchair, initial encounter; Y93.89 Activity, other specified; Y92.89 Other specified places as the place of occurrence of the external cause; Y99.8 Other external cause status
CPT/HCPCS: 72072; 72100; 72220; 99284

== ENCOUNTER 2019-08-17 21:20 | Inpatient (IN) | payer MEDICAID ==
[~2019-08-17] VITALS: Ht 157.5 cm; Wt 54.2 kg
--- NOTE | 2019-08-17 22:11 | PHYS DOC ---
Past Medical History Past Medical History: A-Fib, Anemia, Anxiety, Arthritis, Asthma, Bronchitis, CHF, COPD, Depression, Diabetes-Type II, GERD, High Cholesterol, Hypertension, Hypothyroid, Renal Disease Additional Past Medical Histor: neuropathy, cataracts,CHRONIC PAIN,ESRD,PNEUMONIA,SLEEP APNEA Past Surgical History: Appendectomy, Cholecystectomy, Hysterectomy, Other Additional Past Surgical Histo: bilateral bka, shunt, hysterectomy Smoking Status: Current Every Day Smoker Alcohol Use: None Drug Use: None General Adult EDM: Chief Complaint: ABDOMINAL PAIN HPI: HPI: Patient is a 59 year old female who presents with complaint of right lower quadrant abdominal pain that started yesterday at about 1:00. Patient indicates that she has had nausea and vomiting since pain has started. She rates pain at an 8 to a 9 out of 10. She states that pain is worsened with movement with palpation of the area. She does indicate that she has decreased appetite and when she tried to eat yesterday she threw up. [] Review of Systems: Review of Systems: Constitutional: Denies fever or chills. [] Respiratory: Denies cough or shortness of breath. [] Cardiovascular: Denies chest pain or edema. [] GI: Complains of abdominal pain with nausea and vomiting. Denies diarrhea. [] Neurologic: Denies headache, focal weakness or sensory changes. [] A full 10 point review of systems has been reviewed and is otherwise negative. Heart Score: Risk Factors: Risk Factors: DM, Current or recent (<one month) smoker, HTN, HLP, family history of CAD, obesity. Risk Scores: Score 0 - 3: 2.5% MACE over next 6 weeks - Discharge Home Score 4 - 6: 20.3% MACE over next 6 weeks - Admit for Clinical Observation Score 7 - 10: 72.7% MACE over next 6 weeks - Early Invasive Strategies Allergies: Allergies: Allergies Coded Allergies Type Severity Reaction Last Updated Verified No Known Drug Allergies 02/27/19 No Physical Exam: PE: Constitutional: Well developed, well nourished, no acute distress, non-toxic appearance. [] HENT: Normocephalic, atraumatic, bilateral external ears normal, oropharynx moist, no oral exudates, nose normal. [] Eyes: PERRLA, EOMI, conjunctiva normal, no discharge. [] Neck: Normal range of motion, no tenderness, supple, no stridor. [] Cardiovascular: Regular rate and rhythm [] Lungs & Thorax: Bilateral breath sounds clear to auscultation [] Abdomen: Bowel sounds normal, soft, with moderate right lower quadrant tenderness. [] Skin: Warm, dry, no erythema, no rash. [] Extremities: No tenderness, no cyanosis, no clubbing, ROM intact, no edema. [] Neurologic: Alert and oriented X 3, no focal deficits noted. [] Current Patient Data: Labs: Laboratory Tests Test 08/17/19 21:29 Glucose (Fingerstick) 96 mg/dL (70-99) Vital Signs: Vital Signs Date Time Temp Pulse Resp B/P (MAP) Pulse Ox O2 Delivery O2 Flow Rate FiO2 08/17/19 21:23 98.1 71 28 185/82 (116) 93 Room Air 98.1 EKG: EKG: [] Radiology/Procedures: Radiology/Procedures: [] Impression: PROCEDURE: CT ABDOMEN PELVIS WO CONTRAST EXAM: CT ABDOMEN/PELVIS WITHOUT CONTRAST. HISTORY: Abdominal pain. TECHNIQUE: Computed tomography of the abdomen and pelvis was performed without intravenous contrast. One or more of the following individualized dose reduction techniques were utilized for this examination: 1. Automated exposure control. 2. Adjustment of the mA and/or kV according to patient size. 3. Use of iterative reconstruction technique. COMPARISON: 03/29/2019. FINDINGS: Lung windows through the visualized portions of the bases reveal mild atelectasis. Bone windows reveal moderate right and trace left pleural effusions. There is atelectasis and mild pulmonary edema in both bases. The heart is moderately enlarged. There are atherosclerotic calcifications of the coronary arteries. The gallbladder is surgically absent. There are calcified granulomas in the spleen. The liver, pancreas and adrenal glands are unremarkable. Benign-appearing bilateral renal cysts measure up to 1.9 cm. The appendix is not inflamed. There is a small amount of ascites. There is no small bowel obstruction. There are diffuse dense atherosclerotic calcifications of all the visualized vasculature. Body wall edema indicates anasarca. Stool throughout the colon is consistent with constipation. IMPRESSION: 1. Correlate for mild constipation. No acute intra-abdominal process. 2. Anasarca. Small ascites. Moderate right and small left pleural effusions. Mild pulmonary edema. 3. Moderate cardiomegaly. Electronically signed by: Gilbert Olmedo MD (08/18/2019 2:42 AM) [facility] Course & Med Decision Making: Course & Med Decision Making Pertinent Labs and Imaging studies reviewed. (See chart for details) [] Melisa Disclaimer: Melias Disclaimer: This electronic medical record was generated, in whole or in part, using a voice recognition dictation system. Departure Departure Impression: Primary Impression: ESRD on dialysis Additional Impressions: Hyperkalemia Abdominal pain Qualified Codes: R10.84 - Generalized abdominal pain Disposition: ADMITTED INPATIENT Admitting Physician: SOFI Condition: IMPROVED Referrals: NO PCP (PCP) GIULIANO FAIRCHILD Jr. DO August 17, 2019 22:11
[2019-08-17] MEDS: fentaNYL PF VIAL 100 MCG/2 ML VIAL IV PRN (22:15)
[2019-08-17] MEDS ORDERED: ONDANSETRON PF 4 MG/2 ML VIAL. IVP ONE (22:30)
[2019-08-17] MEDS ORDERED: IV NORMAL SALINE 1000ML BAG 1,000 ML IV SCH (22:30)
[2019-08-17 22:37] LABS: BASO # 0.1 x10^3/uL (0.0-0.2); BASO % 1 % (0-3); EOS % 0 % (0-3); HEMATOCRIT 34.1 % (36.0-47.0); HEMOGLOBIN 11.5 g/dL (12.0-15.5); LYMPH # 1.1 x10^3/uL (1.0-4.8); LYMPH % 18 % (24-48); MEAN CORPUSCULAR HEMOGLOBIN 30 pg (25-35); MEAN CORPUSCULAR HGB CONC 34 g/dL (31-37); MEAN CORPUSCULAR VOLUME 89 fL (79-100); MONO # 0.6 x10^3/uL (0.0-1.1); MONO % 9 % (0-9); NEUT # 4.6 x10^3/uL (1.8-7.7); NEUT % 72 % (31-73); PLATELET COUNT 225 x10^3/uL (140-400); RED BLOOD COUNT 3.82 x10^6/uL (3.50-5.40); RED CELL DISTRIBUTION WIDTH 19.9 % (11.5-14.5); WHITE BLOOD COUNT 6.3 x10^3/uL (4.0-11.0)
[2019-08-18 00:38] LABS: CALCIUM 9.3 mg/dL (8.5-10.1); CREATININE 6.2 mg/dL (0.6-1.0); GFR 8.4; POTASSIUM 5.3 mmol/L (3.5-5.1)
[2019-08-18 00:44] LABS: ALBUMIN 3.3 g/dL (3.4-5.0); TOTAL BILIRUBIN 0.5 mg/dL (0.2-1.0); TOTAL PROTEIN 6.7 g/dL (6.4-8.2)
[2019-08-18] MEDS: fentaNYL PF VIAL 100 MCG/2 ML VIAL IV PRN (01:58)
--- NOTE | 2019-08-18 02:45 | RAD ---
EXAM: CT ABDOMEN/PELVIS WITHOUT CONTRAST. HISTORY: Abdominal pain. TECHNIQUE: Computed tomography of the abdomen and pelvis was performed without intravenous contrast. One or more of the following individualized dose reduction techniques were utilized for this examination: 1. Automated exposure control. 2. Adjustment of the mA and/or kV according to patient size. 3. Use of iterative reconstruction technique. COMPARISON: 03/29/2019. FINDINGS: Lung windows through the visualized portions of the bases reveal mild atelectasis. Bone windows reveal moderate right and trace left pleural effusions. There is atelectasis and mild pulmonary edema in both bases. The heart is moderately enlarged. There are atherosclerotic calcifications of the coronary arteries. The gallbladder is surgically absent. There are calcified granulomas in the spleen. The liver, pancreas and adrenal glands are unremarkable. Benign-appearing bilateral renal cysts measure up to 1.9 cm. The appendix is not inflamed. There is a small amount of ascites. There is no small bowel obstruction. There are diffuse dense atherosclerotic calcifications of all the visualized vasculature. Body wall edema indicates anasarca. Stool throughout the colon is consistent with constipation. IMPRESSION: 1. Correlate for mild constipation. No acute intra-abdominal process. 2. Anasarca. Small ascites. Moderate right and small left pleural effusions. Mild pulmonary edema. 3. Moderate cardiomegaly. Electronically signed by: Gilbert Olmedo MD (08/18/2019 2:42 AM) [facility]
[2019-08-18] MEDS ORDERED: SODIUM POLYSTYRENE SULFON/SORB 15 GM/60 ML ORAL.SUSP PO ONE ×2 (03:00→12:15)
[2019-08-18] MEDS ORDERED: ONDANSETRON PF 4 MG/2 ML VIAL. IV PRN (03:00)
[2019-08-18] MEDS ORDERED: DEXTROSE 50% 25 GM / 50ML DISP.SYRIN. IV ONE ×4 (03:00→11:15)
[2019-08-18] MEDS ORDERED: INSULIN REGULAR 100 UNIT/ML 3ML VIAL. IV ONE (03:00)
[2019-08-18 05:30] VITALS: BP 128/68
[2019-08-18] MEDS: MORPHINE SULFATE 2 MG/ML VIAL. IV PRN ×4 (05:57→21:11)
[2019-08-18 07:00] VITALS: BP 153/88
[2019-08-18 10:50] VITALS: BP 150/82
[2019-08-18] MEDS ORDERED: DEXTROSE 50% 25 GM / 50ML DISP.SYRIN. IV PRN (11:15)
[2019-08-18] MEDS ORDERED: IV DEXTROSE 10% 500 ML IV ONE (11:15)
--- NOTE | 2019-08-18 11:47 | PDOC1 ---
History and Physical Date of Admission Date of Admission 08/18/2019 Source Source: Chart review History of Present Illness History of Present Illness Patient's history is limited by hypoglycemic event encephalopathy secondary to the hypoglycemia. Patient came to the emergency department for abdominal pain discomfort patient is an end-stage renal disease on hemodialysis who has a history of noncompliance and has multiple admission For missed dialysis in the past. She has had 5 admissions to our institution so far this year last one was on June and was due to missed dialysis as stated before. Today she comes with abdominal discomfort which also seems to be a chronic nature her dialysis schedule is Monday. We were asked to admit the patient for further evaluation and treatment Electrolytes are within normal range except for a glycemia of 44 this morning rest of her laboratory data seems pretty much at baseline Past Medical History Cardiovascular: CHF, HTN, Hyperlipidemia, Other Pulmonary: Asthma CENTRAL NERVOUS SYSTEM: Periperal neuropathy GI: GERD Heme/Onc: Anemia NOS Hepatobiliary: No pertinent hx Psych: Bipolar Rheumatologic: Fibromyalgia Infectious disease: No pertinent hx Renal/: Chronic renal failure Endocrine: Diabetes, Hypothyroidism, Hyperparathyroidism Past Surgical History Past Surgical History: Hysterectomy, Other Family History Family History: Hypertension, Other (Reviewed and found noncontributory to the present) Social History ALCOHOL: none Drugs: None Current Problem List Problem List Problems Medical Problems: (1) Abdominal pain Status: Acute (2) ESRD on dialysis Status: Chronic (3) Hyperkalemia Status: Acute Current Medications Current Medications Current Medications Medications (Trade) Dose Ordered Sig/Clarence Start Time Stop Time Status Last Admin Dose Admin Dextrose (Dextrose 50%-Water Syringe) 25 gm STK-MED ONCE 08/18/19 11:15 08/18/19 11:15 DC Fentanyl Citrate (Fentanyl 2ml Vial) 50 mcg PRN Q15MIN PRN 08/17/19 22:15 08/18/19 22:14 08/18/19 01:58 50 MCG Insulin Human Regular (HumuLIN R VIAL) 10 unit 1X ONCE 08/18/19 03:00 08/18/19 03:01 DC 08/18/19 03:06 10 UNIT Morphine Sulfate (Morphine Sulfate) 2 mg PRN Q2HR PRN 08/18/19 03:00 08/19/19 02:59 08/18/19 11:22 2 MG Ondansetron HCl (Zofran) 4 mg PRN Q8HRS PRN 08/18/19 03:00 08/19/19 02:59 08/18/19 06:07 4 MG Sodium Polystyrene Sulfonate (Kayexalate) 15 gm 1X ONCE 08/18/19 03:00 08/18/19 03:01 DC Sodium Chloride 1,000 ml @ 1,000 mls/hr Q1H 08/17/19 22:30 08/17/19 23:29 DC 08/17/19 22:15 1,000 MLS/HR Allergies Allergies Allergies Coded Allergies Type Severity Reaction Last Updated Verified No Known Drug Allergies 02/27/19 No ROS Review of System CONSTITUTIONAL: No fever or chills EYES: No recent changes SKIN: No rash or itching CARDIOVASCULAR: No chest pain, syncope, palpitations, or edema RESPIRATORY: No SOB or cough GASTROINTESTINAL: No nausea, vomiting or abdominal pain NEUROLOGICAL: No headaches or weakness ENDOCRINE: No cold or heat intolerance GENITOURINARY: No urgency or frequency of urination MUSCULOSKELETAL: No back pain or joint pain LYMPHATICS: No enlarged lymph nodes PSYCHIATRIC: No anxiety or depression Physical Exam Physical Exam GEN.: No apparent distress. Obtunded. HEENT: Head is normocephalic, atraumatic NECK: Supple. LUNGS: Clear to auscultation. HEART: RRR, S1, S2 present. Peripheral pulses intact ABDOMEN: Soft, nontender. Positive bowel sounds. EXTREMITIES: Without any cyanosis. NEUROLOGIC: No focal neurological deficits evident cranial nerves II to XII intact moves all extremities PSYCHIATRIC: Unable to assess SKIN: No ulcerations Vitals Vitals Vital Signs Date Time Temp Pulse Resp B/P (MAP) Pulse Ox O2 Delivery O2 Flow Rate FiO2 08/18/19 11:22 95 Nasal Cannula 4.0 08/18/19 10:50 97.9 68 18 150/82 (104) 97.9 Labs Labs Laboratory Tests Test 08/17/19 21:29 08/17/19 21:45 08/18/19 00:05 08/18/19 07:05 Glucose (Fingerstick) 96 mg/dL (70-99) 44 mg/dL (70-99) White Blood Count 6.3 x10^3/uL (4.0-11.0) Red Blood Count 3.82 x10^6/uL (3.50-5.40) Hemoglobin 11.5 g/dL (12.0-15.5) Hematocrit 34.1 % (36.0-47.0) Mean Corpuscular Volume 89 fL (79-100) Mean Corpuscular Hemoglobin 30 pg (25-35) Mean Corpuscular Hemoglobin Concent 34 g/dL (31-37) Red Cell Distribution Width 19.9 % (11.5-14.5) Platelet Count 225 x10^3/uL (140-400) Neutrophils (%) (Auto) 72 % (31-73) Lymphocytes (%) (Auto) 18 % (24-48) Monocytes (%) (Auto) 9 % (0-9) Eosinophils (%) (Auto) 0 % (0-3) Basophils (%) (Auto) 1 % (0-3) Neutrophils # (Auto) 4.6 x10^3/uL (1.8-7.7) Lymphocytes # (Auto) 1.1 x10^3/uL (1.0-4.8) Monocytes # (Auto) 0.6 x10^3/uL (0.0-1.1) Eosinophils # (Auto) 0.0 x10^3/uL (0.0-0.7) Basophils # (Auto) 0.1 x10^3/uL (0.0-0.2) Sodium Level 138 mmol/L (136-145) Potassium Level 5.3 mmol/L (3.5-5.1) Chloride Level 100 mmol/L (98-107) Carbon Dioxide Level 26 mmol/L (21-32) Anion Gap 12 (6-14) Blood Urea Nitrogen 53 mg/dL (7-20) Creatinine 6.2 mg/dL (0.6-1.0) Estimated GFR (Cockcroft-Gault) 8.4 BUN/Creatinine Ratio 9 (6-20) Glucose Level 96 mg/dL (70-99) Calcium Level 9.3 mg/dL (8.5-10.1) Total Bilirubin 0.5 mg/dL (0.2-1.0) Aspartate Amino Transf (AST/SGOT) 30 U/L (15-37) Alanine Aminotransferase (ALT/SGPT) 63 U/L (14-59) Alkaline Phosphatase 124 U/L (46-116) Total Protein 6.7 g/dL (6.4-8.2) Albumin 3.3 g/dL (3.4-5.0) Albumin/Globulin Ratio 1.0 (1.0-1.7) Lipase 125 U/L (73-393) Test 08/18/19 07:30 08/18/19 11:04 Glucose (Fingerstick) 68 mg/dL (70-99) 55 mg/dL (70-99) Laboratory Tests Test 08/17/19 21:29 08/17/19 21:45 08/18/19 00:05 08/18/19 07:05 Glucose (Fingerstick) 96 mg/dL (70-99) 44 mg/dL (70-99) White Blood Count 6.3 x10^3/uL (4.0-11.0) Red Blood Count 3.82 x10^6/uL (3.50-5.40) Hemoglobin 11.5 g/dL (12.0-15.5) Hematocrit 34.1 % (36.0-47.0) Mean Corpuscular Volume 89 fL (79-100) Mean Corpuscular Hemoglobin 30 pg (25-35) Mean Corpuscular Hemoglobin Concent 34 g/dL (31-37) Red Cell Distribution Width 19.9 % (11.5-14.5) Platelet Count 225 x10^3/uL (140-400) Neutrophils (%) (Auto) 72 % (31-73) Lymphocytes (%) (Auto) 18 % (24-48) Monocytes (%) (Auto) 9 % (0-9) Eosinophils (%) (Auto) 0 % (0-3) Basophils (%) (Auto) 1 % (0-3) Neutrophils # (Auto) 4.6 x10^3/uL (1.8-7.7) Lymphocytes # (Auto) 1.1 x10^3/uL (1.0-4.8) Monocytes # (Auto) 0.6 x10^3/uL (0.0-1.1) Eosinophils # (Auto) 0.0 x10^3/uL (0.0-0.7) Basophils # (Auto) 0.1 x10^3/uL (0.0-0.2) Sodium Level 138 mmol/L (136-145) Potassium Level 5.3 mmol/L (3.5-5.1) Chloride Level 100 mmol/L (98-107) Carbon Dioxide Level 26 mmol/L (21-32) Anion Gap 12 (6-14) Blood Urea Nitrogen 53 mg/dL (7-20) Creatinine 6.2 mg/dL (0.6-1.0) Estimated GFR (Cockcroft-Gault) 8.4 BUN/Creatinine Ratio 9 (6-20) Glucose Level 96 mg/dL (70-99) Calcium Level 9.3 mg/dL (8.5-10.1) Total Bilirubin 0.5 mg/dL (0.2-1.0) Aspartate Amino Transf (AST/SGOT) 30 U/L (15-37) Alanine Aminotransferase (ALT/SGPT) 63 U/L (14-59) Alkaline Phosphatase 124 U/L (46-116) Total Protein 6.7 g/dL (6.4-8.2) Albumin 3.3 g/dL (3.4-5.0) Albumin/Globulin Ratio 1.0 (1.0-1.7) Lipase 125 U/L (73-393) Test 08/18/19 07:30 08/18/19 11:04 Glucose (Fingerstick) 68 mg/dL (70-99) 55 mg/dL (70-99) VTE Prophylaxis Ordered VTE Prophylaxis Devices: Yes VTE Pharmacological Prophylaxi: Yes Assessment/Plan Assessment/Plan Acute encephalopathy secondary to metabolic etiology with hypoglycemia Abdominal discomfort which seems to have resolved End-stage renal disease on hemodialysis Normocytic anemia of chronic disease History of diabetes mellitus type 2 History of essential hypertension History of hypothyroidism History of depression Chronic pain syndrome History of bilateral BKA Plan We will administer glucose D10 until her glycemia stabilizes Consult nephrology for dialysis We will reassess in the a.m. Further recommendations will be based on the clinical course DVT prophylaxis with heparin JASPAL RAMOS MD August 18, 2019 11:47
[2019-08-18] MEDS ORDERED: guaiFENesin DM 200MG/20MG 10 ML SYRUP PO PRN (12:00)
[2019-08-18] MEDS ORDERED: ONDANSETRON ODT 4 MG TAB.RAPDIS. PO PRN (12:00)
[2019-08-18] MEDS: INSULIN LISPRO 300 UNITS/3 ML VIAL. SQ SCH ×2 (12:00→16:14)
[2019-08-18] MEDS ORDERED: ACETAMINOPHEN 325 MG TABLET. PO PRN (12:00)
[2019-08-18] MEDS ORDERED: PROCHLORPERAZINE 5 MG TABLET. PO PRN (12:00)
--- NOTE | 2019-08-18 12:55 | PDOC2 ---
CONSULT Date of Consult Date of Consult DATE: 08/18/19 TIME: 12:50 Reason for Consult Reason for Consult: ESRD on hemodialysis Referring Physician Referring Physician: Dr. Sorenson Identification/Chief Complaint Chief Complaint Abdominal pain Source Source: Chart review, Unable to obtain due to (lack of patient cooperation, altered mental status) History of Present Illness Reason for Visit: Mrs. Salazar is a 59-year-old -[place] female followed by Dr. Lockett for ESRD needs. She presented to the ER with altered mental status and hypoglycemia . She also complained of abdominal pain demanded pain medications which she is received. She is currently sleepy and somnolent and unable to awaken her. She remains on a D10 drip at this time. She is known to have a history of noncompliance with outpatient dialysis. I am unable to glean when her last dialysis treatment was or how many she has missed in the recent past. No nausea vomiting has been reported Past Medical History Cardiovascular: CHF, HTN, Hyperlipidemia, Other Pulmonary: Asthma CENTRAL NERVOUS SYSTEM: Periperal neuropathy GI: GERD Heme/Onc: Anemia NOS Hepatobiliary: No pertinent hx Psych: Bipolar Musculoskeletal: Other Rheumatologic: Fibromyalgia Infectious disease: No pertinent hx Renal/: Chronic renal failure Endocrine: Diabetes, Hypothyroidism, Hyperparathyroidism Past Surgical History Past Surgical History: Hysterectomy, Other Family History Family History: Hypertension, Other (Reviewed and found noncontributory to the present) Social History ALCOHOL: none Drugs: None Lives: Alone Current Problem List Problem List Problems Medical Problems: (1) Abdominal pain Status: Acute (2) ESRD on dialysis Status: Chronic (3) Hyperkalemia Status: Acute Current Medications Current Medications Current Medications Fentanyl Citrate (Fentanyl 2ml Vial) 50 mcg PRN Q15MIN PRN IV PAIN GREATER THAN 3/10 Last administered on 08/18/19at 01:58; Start 08/17/19 at 22:15; Stop 08/18/19 at 22:14 Sodium Chloride 1,000 ml @ 1,000 mls/hr Q1H IV Last administered on 08/17/19at 22:15; Start 08/17/19 at 22:30; Stop 08/17/19 at 23:29; Status DC Ondansetron HCl (Zofran) 4 mg 1X ONCE IVP Last administered on 08/17/19at 22:15; Start 08/17/19 at 22:30; Stop 08/17/19 at 22:31; Status DC Sodium Polystyrene Sulfonate (Kayexalate) 15 gm 1X ONCE PO ; Start 08/18/19 at 03:00; Stop 08/18/19 at 03:01; Status DC Insulin Human Regular (HumuLIN R VIAL) 10 unit 1X ONCE IV Last administered on 08/18/19at 03:06; Start 08/18/19 at 03:00; Stop 08/18/19 at 03:01; Status DC Dextrose (Dextrose 50%-Water Syringe) 25 gm 1X ONCE IV Last administered on 08/18/19at 03:03; Start 08/18/19 at 03:00; Stop 08/18/19 at 03:01; Status DC Ondansetron HCl (Zofran) 4 mg PRN Q8HRS PRN IV NAUSEA/VOMITING 1ST CHOICE Last administered on 08/18/19at 06:07; Start 08/18/19 at 03:00; Stop 08/19/19 at 02:59 Morphine Sulfate (Morphine Sulfate) 2 mg PRN Q2HR PRN IV SEVERE PAIN 7-10 Last administered on 08/18/19at 11:22; Start 08/18/19 at 03:00; Stop 08/19/19 at 02:59 Dextrose (Dextrose 50%-Water Syringe) 25 gm STK-MED ONCE IV ; Start 08/18/19 at 07:07; Stop 08/18/19 at 07:07; Status DC Dextrose 500 ml @ 0 mls/hr 1X ONCE IV Last administered on 08/18/19at 11:15; Start 08/18/19 at 11:15; Stop 08/18/19 at 11:16; Status DC Dextrose (Dextrose 50%-Water Syringe) 12.5 gm PRN Q15MIN PRN IV SEE COMMENTS; Start 08/18/19 at 11:15 Dextrose (Dextrose 50%-Water Syringe) 25 gm STK-MED ONCE IV ; Start 08/18/19 at 11:15; Stop 08/18/19 at 11:15; Status DC Albuterol Sulfate (Ventolin Neb Soln) 2.5 mg RTBID PRN INH SHORTNESS OF BREATH; Start 08/18/19 at 20:00 Amlodipine Besylate (Norvasc) 10 mg DAILY PO ; Start 08/19/19 at 09:00 Atorvastatin Calcium (Lipitor) 40 mg HS PO ; Start 08/18/19 at 21:00 Carvedilol (Coreg) 12.5 mg BIDWMEALS PO ; Start 08/18/19 at 17:00 Clonidine HCl (Catapres Tts-2) 1 patch WEEKLY TD ; Start 08/25/19 at 09:00 Clopidogrel Bisulfate (Plavix) 75 mg DAILYWBKFT PO ; Start 08/19/19 at 08:00 Vitamin B Complex/ Vitamin C (Pinky-Shreya) 1 tab DAILY PO ; Start 08/19/19 at 09:00 Guaifenesin (Robitussin Dm) 10 ml PRN Q6HRS PRN PO COUGH; Start 08/18/19 at 12:00 Hydralazine HCl (Apresoline) 25 mg TID PO ; Start 08/18/19 at 14:00 Insulin Human Lispro (HumaLOG) TIDWMEALS SQ ; Start 08/18/19 at 12:00 Lactobacillus Rhamnosus (Culturelle) 1 cap BID PO ; Start 08/18/19 at 21:00 Latanoprost (Xalatan) 1 drop HS OU ; Start 08/18/19 at 21:00 Levothyroxine Sodium (Synthroid) 50 mcg DAILY07 PO ; Start 08/19/19 at 07:00 Lisinopril (Prinivil) 20 mg DAILY PO ; Start 08/19/19 at 09:00 Ondansetron HCl (Zofran Odt) 4 mg PRN Q6HRS PRN PO NAUSEA/VOMITING 1ST CHOICE; Start 08/18/19 at 12:00 Prochlorperazine Maleate (Compazine) 5 mg PRN TID PRN PO NAUSEA- 2ND CHOICE; Start 08/18/19 at 12:00 Sertraline HCl (Zoloft) 50 mg DAILY PO ; Start 08/19/19 at 09:00 Acetaminophen (Tylenol) 650 mg PRN Q6HRS PRN PO MILD PAIN / TEMP > 100.3'F; Start 08/18/19 at 12:00 Amylase/Lipase/ Protease (Zenpep 5,000) 1 cap TIDWMEALS PO ; Start 08/18/19 at 12:00 Famotidine (Pepcid) 20 mg Q48H PO ; Start 08/18/19 at 21:00 Pantoprazole Sodium (Protonix) 40 mg DAILYAC PO ; Start 08/19/19 at 07:30 Heparin Sodium (Porcine) (Heparin Sodium) 5,000 unit Q12HR SQ ; Start 08/18/19 at 21:00 Sodium Polystyrene Sulfonate (Kayexalate) 30 gm 1X ONCE PO ; Start 08/18/19 at 12:15; Stop 08/18/19 at 12:16; Status DC Active Scripts Active Guaifenesin Dm Syrup (Guaifenesin/Dextromethorphan) 5 Ml Syrup 10 Ml PO PRN Q6HRS PRN 10 Days Carvedilol (Carvedilol) 6.25 Mg Tablet 12.5 Mg PO BIDWMEALS Hydralazine Hcl 25 Mg Tablet 25 Mg PO TID Humalog (Insulin Lispro) 100 Unit/1 Ml Insuln.pen 0 Units SQ TIDWMEALS 28 Days Culturelle (Lactobacillus Rhamnosus Gg) 1 Each Cap.sprink 1 Cap PO BID 30 Days Ondansetron Odt (Ondansetron) 4 Mg Tab.rapdis 4 Mg PO PRN Q6HRS PRN 28 Days Clopidogrel (Clopidogrel Bisulfate) 75 Mg Tablet 75 Mg PO DAILYWBKFT 30 Days Pinky-Shreya Tablet (Folic Acid/Vitamin B Comp W-C) 0.8 Mg Tablet 1 Tab PO DAILY Tylenol (Acetaminophen) 325 Mg Capsule 650 Mg PO Q6-8HRS PRN Zantac (Ranitidine Hcl) 300 Mg Tablet 1 Tab PO QHS Compazine (Prochlorperazine Maleate) 5 Mg Tablet 5 Mg PO PRN TID PRN 10 Days [Pantoprazole] 40 MG Tablet.dr 40 Mg PO DAILYAC 30 Days Reported Zoloft (Sertraline Hcl) 50 Mg Tablet 50 Mg PO DAILY Lisinopril 20 Mg Tablet 20 Mg PO DAILY Creon Dr 6,000 Units Capsule (Lipase/Protease/Amylase) 1 Each Capsule.dr 1 Tab PO TID Proair Hfa (Albuterol Sulfate) 8.5 Gm Hfa.aer.ad 2 Puff INH BID PRN Levothyroxine Sodium 50 Mcg Tablet 1 Tab PO DAILY Clonidine Tts-2 (Clonidine) 1 Each Patch.tdwk 1 Patch TD WEEKLY Amlodipine Besylate 5 Mg Tablet 10 Mg PO DAILY Atorvastatin Calcium 40 Mg Tablet 40 Mg PO HS Latanoprost 2.5 Ml Drops 1 Drop EACHEYE HS Allergies Allergies: Coded Allergies: No Known Drug Allergies (Unverified , 02/27/19) ROS Review of System Unable to obtain from the patient due to altered mental status, lack of cooperation Physical Exam Physical Exam General Appearance: Patient remains somnolent and minimally verbal. Much of this is voluntary is difficult to ascertain Eyes: [place] sclera, normal conjunctiva EN: No EN Drainage Mucous Memb. Appear moist Neck: no JVD + JVP Supple no Thyromegaly CVS: S1 S2 + Murmur No Gallop No Rub no Edema Resp: no Rales no Rhonchi no Acc. Muscle use GI: BAS +ve NO Bruit Non Tender Non Distended : no CVA tenderness; no Suprapubic Tenderness SKIN: No visible rashes Breast Exam deferred Mu.Sk: Bilateral lower extremity amputations minimal muscle Atrophy Heme: Unable to palpate Obvious LAD no Splenomegaly NEURO: Unable to assess due to altered mental status, drowsiness, recent administration of pain medications Psych: Known history of depression and aggression Vital Signs Vital Signs Date Time Temp Pulse Resp B/P (MAP) Pulse Ox O2 Delivery O2 Flow Rate FiO2 08/18/19 11:22 95 Nasal Cannula 4.0 08/18/19 10:50 97.9 68 18 150/82 (104) 97.9 Assessment & Plan ESRD: Current FLuid and E-lyte status does not necessitate emergent need for Dialysis. Will re-evaluate for Dialysis in am and continue on Monday schedule. Marginal hyperkalemia: Kayexalate will be ordered even findings of constipation on CT of the abdomen Anemia: No Epogen is ordered for hemoglobin of 11.5. Transfuse with next HD as needed. HTN: Current BP meds reviewed. See orders for changes. Bone & Mineral: Follow phosphorus levels while patient is inpatient and monitor binder regimen as needed. Discussed Plan of Care and prognosis etc. at length with family. Labs Labs Laboratory Tests Test 08/17/19 21:29 08/17/19 21:45 08/18/19 00:05 08/18/19 07:05 Glucose (Fingerstick) 96 mg/dL (70-99) 44 mg/dL (70-99) White Blood Count 6.3 x10^3/uL (4.0-11.0) Red Blood Count 3.82 x10^6/uL (3.50-5.40) Hemoglobin 11.5 g/dL (12.0-15.5) Hematocrit 34.1 % (36.0-47.0) Mean Corpuscular Volume 89 fL (79-100) Mean Corpuscular Hemoglobin 30 pg (25-35) Mean Corpuscular Hemoglobin Concent 34 g/dL (31-37) Red Cell Distribution Width 19.9 % (11.5-14.5) Platelet Count 225 x10^3/uL (140-400) Neutrophils (%) (Auto) 72 % (31-73) Lymphocytes (%) (Auto) 18 % (24-48) Monocytes (%) (Auto) 9 % (0-9) Eosinophils (%) (Auto) 0 % (0-3) Basophils (%) (Auto) 1 % (0-3) Neutrophils # (Auto) 4.6 x10^3/uL (1.8-7.7) Lymphocytes # (Auto) 1.1 x10^3/uL (1.0-4.8) Monocytes # (Auto) 0.6 x10^3/uL (0.0-1.1) Eosinophils # (Auto) 0.0 x10^3/uL (0.0-0.7) Basophils # (Auto) 0.1 x10^3/uL (0.0-0.2) Sodium Level 138 mmol/L (136-145) Potassium Level 5.3 mmol/L (3.5-5.1) Chloride Level 100 mmol/L (98-107) Carbon Dioxide Level 26 mmol/L (21-32) Anion Gap 12 (6-14) Blood Urea Nitrogen 53 mg/dL (7-20) Creatinine 6.2 mg/dL (0.6-1.0) Estimated GFR (Cockcroft-Gault) 8.4 BUN/Creatinine Ratio 9 (6-20) Glucose Level 96 mg/dL (70-99) Calcium Level 9.3 mg/dL (8.5-10.1) Total Bilirubin 0.5 mg/dL (0.2-1.0) Aspartate Amino Transf (AST/SGOT) 30 U/L (15-37) Alanine Aminotransferase (ALT/SGPT) 63 U/L (14-59) Alkaline Phosphatase 124 U/L (46-116) Total Protein 6.7 g/dL (6.4-8.2) Albumin 3.3 g/dL (3.4-5.0) Albumin/Globulin Ratio 1.0 (1.0-1.7) Lipase 125 U/L (73-393) Test 08/18/19 07:30 08/18/19 11:04 Glucose (Fingerstick) 68 mg/dL (70-99) 55 mg/dL (70-99) Laboratory Tests Test 08/17/19 21:29 08/17/19 21:45 08/18/19 00:05 08/18/19 07:05 Glucose (Fingerstick) 96 mg/dL (70-99) 44 mg/dL (70-99) White Blood Count 6.3 x10^3/uL (4.0-11.0) Red Blood Count 3.82 x10^6/uL (3.50-5.40) Hemoglobin 11.5 g/dL (12.0-15.5) Hematocrit 34.1 % (36.0-47.0) Mean Corpuscular Volume 89 fL (79-100) Mean Corpuscular Hemoglobin 30 pg (25-35) Mean Corpuscular Hemoglobin Concent 34 g/dL (31-37) Red Cell Distribution Width 19.9 % (11.5-14.5) Platelet Count 225 x10^3/uL (140-400) Neutrophils (%) (Auto) 72 % (31-73) Lymphocytes (%) (Auto) 18 % (24-48) Monocytes (%) (Auto) 9 % (0-9) Eosinophils (%) (Auto) 0 % (0-3) Basophils (%) (Auto) 1 % (0-3) Neutrophils # (Auto) 4.6 x10^3/uL (1.8-7.7) Lymphocytes # (Auto) 1.1 x10^3/uL (1.0-4.8) Monocytes # (Auto) 0.6 x10^3/uL (0.0-1.1) Eosinophils # (Auto) 0.0 x10^3/uL (0.0-0.7) Basophils # (Auto) 0.1 x10^3/uL (0.0-0.2) Sodium Level 138 mmol/L (136-145) Potassium Level 5.3 mmol/L (3.5-5.1) Chloride Level 100 mmol/L (98-107) Carbon Dioxide Level 26 mmol/L (21-32) Anion Gap 12 (6-14) Blood Urea Nitrogen 53 mg/dL (7-20) Creatinine 6.2 mg/dL (0.6-1.0) Estimated GFR (Cockcroft-Gault) 8.4 BUN/Creatinine Ratio 9 (6-20) Glucose Level 96 mg/dL (70-99) Calcium Level 9.3 mg/dL (8.5-10.1) Total Bilirubin 0.5 mg/dL (0.2-1.0) Aspartate Amino Transf (AST/SGOT) 30 U/L (15-37) Alanine Aminotransferase (ALT/SGPT) 63 U/L (14-59) Alkaline Phosphatase 124 U/L (46-116) Total Protein 6.7 g/dL (6.4-8.2) Albumin 3.3 g/dL (3.4-5.0) Albumin/Globulin Ratio 1.0 (1.0-1.7) Lipase 125 U/L (73-393) Test 08/18/19 07:30 08/18/19 11:04 Glucose (Fingerstick) 68 mg/dL (70-99) 55 mg/dL (70-99) Review All relevant outside records, renal labs, imaging studies, telemetry/EKG's were reviewed. Images Images IMPRESSION: 1. Correlate for mild constipation. No acute intra-abdominal process. 2. Anasarca. Small ascites. Moderate right and small left pleural effusions. Mild pulmonary edema. 3. Moderate cardiomegaly. PAOLA YATES MD August 18, 2019 12:55
[2019-08-18] MEDS ORDERED: MAGNESIUM SULFATE 2GM 50 ML IV PRN (13:00)
[2019-08-18] MEDS: hydrALAZINE 25 MG TABLET PO SCH ×2 (14:00→21:12)
[2019-08-18 15:01] VITALS: BP 158/84
[2019-08-18] MEDS: CARVEDILOL 6.25 MG TABLET. PO SCH (17:00)
[2019-08-18 19:00] VITALS: BP 171/74
[2019-08-18] MEDS ORDERED: ALBUTEROL SULFATE 2.5 MG/3 ML NEBU. INH PRN (20:00)
[2019-08-18] MEDS ORDERED: LATANOPROST 0.005% OPHTH SOLUTION 2.5ML BOTTLE. OU SCH (21:00)
[2019-08-18] MEDS: HEPARIN for SUB-Q USE 5,000 UNIT/ML VIAL. SQ SCH (21:00)
[2019-08-18] MEDS ORDERED: ATORVASTATIN CALCIUM 40 MG TABLET. PO SCH (21:00)
[2019-08-18] MEDS ORDERED: FAMOTIDINE 20 MG TABLET. PO SCH (21:00)
[2019-08-18] MEDS: LACTOBACILLUS RHAMNOSUS GG 1 CAPSULE. PO SCH (21:11)
[2019-08-18 23:00] VITALS: BP 163/73
[2019-08-19] MEDS: MORPHINE SULFATE 2 MG/ML VIAL. IV PRN (00:28)
[2019-08-19 03:00] VITALS: BP 160/74
[2019-08-19 04:00] LABS: BASO # 0.1 x10^3/uL (0.0-0.2); BASO % 1 % (0-3); EOS # 0.1 x10^3/uL (0.0-0.7); EOS % 1 % (0-3); HEMATOCRIT 33.7 % (36.0-47.0); HEMOGLOBIN 11.3 g/dL (12.0-15.5); LYMPH # 1.4 x10^3/uL (1.0-4.8); LYMPH % 26 % (24-48); MEAN CORPUSCULAR HEMOGLOBIN 30 pg (25-35); MEAN CORPUSCULAR HGB CONC 34 g/dL (31-37); MEAN CORPUSCULAR VOLUME 90 fL (79-100); MONO # 0.6 x10^3/uL (0.0-1.1); MONO % 12 % (0-9); NEUT # 3.2 x10^3/uL (1.8-7.7); NEUT % 60 % (31-73); PLATELET COUNT 184 x10^3/uL (140-400); RED BLOOD COUNT 3.73 x10^6/uL (3.50-5.40); RED CELL DISTRIBUTION WIDTH 19.9 % (11.5-14.5); WHITE BLOOD COUNT 5.3 x10^3/uL (4.0-11.0)
[2019-08-19 05:52] LABS: ALBUMIN 3.2 g/dL (3.4-5.0); CALCIUM 8.9 mg/dL (8.5-10.1); CREATININE 7.2 mg/dL (0.6-1.0); GFR 7.1; MAGNESIUM 2.4 mg/dL (1.8-2.4); PHOSPHORUS 6.5 mg/dL (2.6-4.7); POTASSIUM 5.7 mmol/L (3.5-5.1); TOTAL BILIRUBIN 0.4 mg/dL (0.2-1.0); TOTAL PROTEIN 6.3 g/dL (6.4-8.2)
[2019-08-19] MEDS ORDERED: LEVOTHYROXINE 50 MCG TABLET PO SCH (07:00)
[2019-08-19] MEDS ORDERED: IV NORMAL SALINE 1000ML BAG 1,000 ML IV PRN ×2 (07:18)
[2019-08-19] MEDS ORDERED: PANTOPRAZOLE 40 MG TABLET.DR. PO SCH (07:30)
[2019-08-19] MEDS ORDERED: DIALYSIS PATIENT. MC PRN (07:30)
[2019-08-19] MEDS ORDERED: ACETAMINOPHEN 500 MG TABLET PO PRN (07:30)
[2019-08-19] MEDS ORDERED: diphenhydrAMINE 50 MG/ML VIAL IV PRN ×2 (07:30)
[2019-08-19 07:53] VITALS: BP 129/69
[2019-08-19] MEDS ORDERED: CLOPIDOGREL BISULFATE 75 MG TABLET PO SCH (08:00)
[2019-08-19] MEDS: INSULIN LISPRO 300 UNITS/3 ML VIAL. SQ SCH ×2 (08:00→12:00)
[2019-08-19] MEDS: CARVEDILOL 6.25 MG TABLET. PO SCH ×2 (08:00→17:00)
[2019-08-19] MEDS ORDERED: traMADol 50 MG TABLET PO PRN (08:30)
--- NOTE | 2019-08-19 08:33 | PDOC ---
PROGRESS NOTES Chief Complaint Chief Complaint A/P: Acute encephalopathy secondary to metabolic etiology with hypoglycemia Abdominal discomfort which seems to have resolved Hyperkalemia - K 5.7, will give kayexelate ESRD - MWF [facility] patient. Fistula functioning again now. She is very intermittently compliant. Acute on chronic diastolic CHF - with elevated BNP and CXR findings concerning, will diurese Accelerated HTN: labile, will restart meds Anasarca Noncompliance: missed dialysis, no transport. Suspect missed meds as well. Hx of severe LE PAD - S/P bilateral BKA. more recent to left leg, incision intact Debility HX NONCOMPLIANCE Anxiety Chronic back pain Chronic anemia Elevated liver function tests Depression sec to med illness History of diabetes mellitus type 2 History of hypothyroidism Chronic pain syndrome History of bilateral BKA FEN - Renal diet PPX - heparin FULL CODE Dispo - inpatient for hyperkalemia. To med/surg after dialysis History of Present Illness History of Present Illness Ms. Salazar, is a 57 year old F w/ PMHx ESRD on HD M/W/F, hypertension, diabetes mellitus, bilateral below knee amputation, chronic pain and neuropathy who presents via EMS because of confusion due to glucose of 44 and missed dialysis. She has been to ED 3 times since she was discharged home with home health, and she and her daughter and mother are concerned about inability to take care of herself. She actively asks to go home and have some pain medication prescription while I am examining her today. She complains of chronic back pain. Further reviews of systems is unobtainable secondary to patient's nonparticipation. she is tolerating dialysis well. D/w nephrology low K bath and 2-3kg UF. K 5.7 feeling improved, no GI pain. She is asking for pain medications for her chronic back pain. No S OB or CP. Glucose has been elevated since the low glucose of 44 approximately 24 hours ago. Vitals Vitals Vital Signs Date Time Temp Pulse Resp B/P (MAP) Pulse Ox O2 Delivery O2 Flow Rate FiO2 08/19/19 07:53 97.6 68 16 129/69 (89) 94 Room Air 97.6 08/19/19 00:28 2.0 Physical Exam General: Alert, Oriented X3, Cooperative Heart: Regular rate, Normal S1, Normal S2 Lungs: Clear Abdomen: Normal bowel sounds, Soft Extremities: No clubbing, No cyanosis Skin: No rashes, No breakdown Labs LABS Laboratory Tests Test 08/18/19 11:04 08/18/19 16:10 08/18/19 21:07 08/19/19 03:05 Glucose (Fingerstick) 55 mg/dL (70-99) 133 mg/dL (70-99) 115 mg/dL (70-99) White Blood Count 5.3 x10^3/uL (4.0-11.0) Red Blood Count 3.73 x10^6/uL (3.50-5.40) Hemoglobin 11.3 g/dL (12.0-15.5) Hematocrit 33.7 % (36.0-47.0) Mean Corpuscular Volume 90 fL (79-100) Mean Corpuscular Hemoglobin 30 pg (25-35) Mean Corpuscular Hemoglobin Concent 34 g/dL (31-37) Red Cell Distribution Width 19.9 % (11.5-14.5) Platelet Count 184 x10^3/uL (140-400) Neutrophils (%) (Auto) 60 % (31-73) Lymphocytes (%) (Auto) 26 % (24-48) Monocytes (%) (Auto) 12 % (0-9) Eosinophils (%) (Auto) 1 % (0-3) Basophils (%) (Auto) 1 % (0-3) Neutrophils # (Auto) 3.2 x10^3/uL (1.8-7.7) Lymphocytes # (Auto) 1.4 x10^3/uL (1.0-4.8) Monocytes # (Auto) 0.6 x10^3/uL (0.0-1.1) Eosinophils # (Auto) 0.1 x10^3/uL (0.0-0.7) Basophils # (Auto) 0.1 x10^3/uL (0.0-0.2) Sodium Level 136 mmol/L (136-145) Potassium Level 5.7 mmol/L (3.5-5.1) Chloride Level 100 mmol/L (98-107) Carbon Dioxide Level 25 mmol/L (21-32) Anion Gap 11 (6-14) Blood Urea Nitrogen 59 mg/dL (7-20) Creatinine 7.2 mg/dL (0.6-1.0) Estimated GFR (Cockcroft-Gault) 7.1 BUN/Creatinine Ratio 8 (6-20) Glucose Level 96 mg/dL (70-99) Calcium Level 8.9 mg/dL (8.5-10.1) Phosphorus Level 6.5 mg/dL (2.6-4.7) Magnesium Level 2.4 mg/dL (1.8-2.4) Total Bilirubin 0.4 mg/dL (0.2-1.0) Aspartate Amino Transf (AST/SGOT) 45 U/L (15-37) Alanine Aminotransferase (ALT/SGPT) 73 U/L (14-59) Alkaline Phosphatase 157 U/L (46-116) Total Protein 6.3 g/dL (6.4-8.2) Albumin 3.2 g/dL (3.4-5.0) Albumin/Globulin Ratio 1.0 (1.0-1.7) Test 08/19/19 07:52 Glucose (Fingerstick) 94 mg/dL (70-99) Assessment and Plan Assessmemt and Plan Problems Medical Problems: (1) Abdominal pain Status: Acute (2) ESRD on dialysis Status: Chronic (3) Hyperkalemia Status: Acute Comment Review of Relevant I have reviewed the following items pamela (where applicable) has been applied. Labs Laboratory Tests Test 08/17/19 21:29 08/17/19 21:45 08/18/19 00:05 08/18/19 07:05 Glucose (Fingerstick) 96 mg/dL (70-99) 44 mg/dL (70-99) White Blood Count 6.3 x10^3/uL (4.0-11.0) Red Blood Count 3.82 x10^6/uL (3.50-5.40) Hemoglobin 11.5 g/dL (12.0-15.5) Hematocrit 34.1 % (36.0-47.0) Mean Corpuscular Volume 89 fL (79-100) Mean Corpuscular Hemoglobin 30 pg (25-35) Mean Corpuscular Hemoglobin Concent 34 g/dL (31-37) Red Cell Distribution Width 19.9 % (11.5-14.5) Platelet Count 225 x10^3/uL (140-400) Neutrophils (%) (Auto) 72 % (31-73) Lymphocytes (%) (Auto) 18 % (24-48) Monocytes (%) (Auto) 9 % (0-9) Eosinophils (%) (Auto) 0 % (0-3) Basophils (%) (Auto) 1 % (0-3) Neutrophils # (Auto) 4.6 x10^3/uL (1.8-7.7) Lymphocytes # (Auto) 1.1 x10^3/uL (1.0-4.8) Monocytes # (Auto) 0.6 x10^3/uL (0.0-1.1) Eosinophils # (Auto) 0.0 x10^3/uL (0.0-0.7) Basophils # (Auto) 0.1 x10^3/uL (0.0-0.2) Sodium Level 138 mmol/L (136-145) Potassium Level 5.3 mmol/L (3.5-5.1) Chloride Level 100 mmol/L (98-107) Carbon Dioxide Level 26 mmol/L (21-32) Anion Gap 12 (6-14) Blood Urea Nitrogen 53 mg/dL (7-20) Creatinine 6.2 mg/dL (0.6-1.0) Estimated GFR (Cockcroft-Gault) 8.4 BUN/Creatinine Ratio 9 (6-20) Glucose Level 96 mg/dL (70-99) Calcium Level 9.3 mg/dL (8.5-10.1) Total Bilirubin 0.5 mg/dL (0.2-1.0) Aspartate Amino Transf (AST/SGOT) 30 U/L (15-37) Alanine Aminotransferase (ALT/SGPT) 63 U/L (14-59) Alkaline Phosphatase 124 U/L (46-116) Total Protein 6.7 g/dL (6.4-8.2) Albumin 3.3 g/dL (3.4-5.0) Albumin/Globulin Ratio 1.0 (1.0-1.7) Lipase 125 U/L (73-393) Test 08/18/19 07:30 08/18/19 11:04 08/18/19 16:10 08/18/19 21:07 Glucose (Fingerstick) 68 mg/dL (70-99) 55 mg/dL (70-99) 133 mg/dL (70-99) 115 mg/dL (70-99) Test 08/19/19 03:05 08/19/19 07:52 White Blood Count 5.3 x10^3/uL (4.0-11.0) Red Blood Count 3.73 x10^6/uL (3.50-5.40) Hemoglobin 11.3 g/dL (12.0-15.5) Hematocrit 33.7 % (36.0-47.0) Mean Corpuscular Volume 90 fL (79-100) Mean Corpuscular Hemoglobin 30 pg (25-35) Mean Corpuscular Hemoglobin Concent 34 g/dL (31-37) Red Cell Distribution Width 19.9 % (11.5-14.5) Platelet Count 184 x10^3/uL (140-400) Neutrophils (%) (Auto) 60 % (31-73) Lymphocytes (%) (Auto) 26 % (24-48) Monocytes (%) (Auto) 12 % (0-9) Eosinophils (%) (Auto) 1 % (0-3) Basophils (%) (Auto) 1 % (0-3) Neutrophils # (Auto) 3.2 x10^3/uL (1.8-7.7) Lymphocytes # (Auto) 1.4 x10^3/uL (1.0-4.8) Monocytes # (Auto) 0.6 x10^3/uL (0.0-1.1) Eosinophils # (Auto) 0.1 x10^3/uL (0.0-0.7) Basophils # (Auto) 0.1 x10^3/uL (0.0-0.2) Sodium Level 136 mmol/L (136-145) Potassium Level 5.7 mmol/L (3.5-5.1) Chloride Level 100 mmol/L (98-107) Carbon Dioxide Level 25 mmol/L (21-32) Anion Gap 11 (6-14) Blood Urea Nitrogen 59 mg/dL (7-20) Creatinine 7.2 mg/dL (0.6-1.0) Estimated GFR (Cockcroft-Gault) 7.1 BUN/Creatinine Ratio 8 (6-20) Glucose Level 96 mg/dL (70-99) Calcium Level 8.9 mg/dL (8.5-10.1) Phosphorus Level 6.5 mg/dL (2.6-4.7) Magnesium Level 2.4 mg/dL (1.8-2.4) Total Bilirubin 0.4 mg/dL (0.2-1.0) Aspartate Amino Transf (AST/SGOT) 45 U/L (15-37) Alanine Aminotransferase (ALT/SGPT) 73 U/L (14-59) Alkaline Phosphatase 157 U/L (46-116) Total Protein 6.3 g/dL (6.4-8.2) Albumin 3.2 g/dL (3.4-5.0) Albumin/Globulin Ratio 1.0 (1.0-1.7) Glucose (Fingerstick) 94 mg/dL (70-99) Laboratory Tests Test 08/18/19 11:04 08/18/19 16:10 08/18/19 21:07 08/19/19 03:05 Glucose (Fingerstick) 55 mg/dL (70-99) 133 mg/dL (70-99) 115 mg/dL (70-99) White Blood Count 5.3 x10^3/uL (4.0-11.0) Red Blood Count 3.73 x10^6/uL (3.50-5.40) Hemoglobin 11.3 g/dL (12.0-15.5) Hematocrit 33.7 % (36.0-47.0) Mean Corpuscular Volume 90 fL (79-100) Mean Corpuscular Hemoglobin 30 pg (25-35) Mean Corpuscular Hemoglobin Concent 34 g/dL (31-37) Red Cell Distribution Width 19.9 % (11.5-14.5) Platelet Count 184 x10^3/uL (140-400) Neutrophils (%) (Auto) 60 % (31-73) Lymphocytes (%) (Auto) 26 % (24-48) Monocytes (%) (Auto) 12 % (0-9) Eosinophils (%) (Auto) 1 % (0-3) Basophils (%) (Auto) 1 % (0-3) Neutrophils # (Auto) 3.2 x10^3/uL (1.8-7.7) Lymphocytes # (Auto) 1.4 x10^3/uL (1.0-4.8) Monocytes # (Auto) 0.6 x10^3/uL (0.0-1.1) Eosinophils # (Auto) 0.1 x10^3/uL (0.0-0.7) Basophils # (Auto) 0.1 x10^3/uL (0.0-0.2) Sodium Level 136 mmol/L (136-145) Potassium Level 5.7 mmol/L (3.5-5.1) Chloride Level 100 mmol/L (98-107) Carbon Dioxide Level 25 mmol/L (21-32) Anion Gap 11 (6-14) Blood Urea Nitrogen 59 mg/dL (7-20) Creatinine 7.2 mg/dL (0.6-1.0) Estimated GFR (Cockcroft-Gault) 7.1 BUN/Creatinine Ratio 8 (6-20) Glucose Level 96 mg/dL (70-99) Calcium Level 8.9 mg/dL (8.5-10.1) Phosphorus Level 6.5 mg/dL (2.6-4.7) Magnesium Level 2.4 mg/dL (1.8-2.4) Total Bilirubin 0.4 mg/dL (0.2-1.0) Aspartate Amino Transf (AST/SGOT) 45 U/L (15-37) Alanine Aminotransferase (ALT/SGPT) 73 U/L (14-59) Alkaline Phosphatase 157 U/L (46-116) Total Protein 6.3 g/dL (6.4-8.2) Albumin 3.2 g/dL (3.4-5.0) Albumin/Globulin Ratio 1.0 (1.0-1.7) Test 08/19/19 07:52 Glucose (Fingerstick) 94 mg/dL (70-99) Medications Current Medications Fentanyl Citrate (Fentanyl 2ml Vial) 50 mcg PRN Q15MIN PRN IV PAIN GREATER THAN 3/10 Last administered on 08/18/19at 01:58; Start 08/17/19 at 22:15; Stop 08/18/19 at 22:14; Status DC Sodium Chloride 1,000 ml @ 1,000 mls/hr Q1H IV Last administered on 08/17/19at 22:15; Start 08/17/19 at 22:30; Stop 08/17/19 at 23:29; Status DC Ondansetron HCl (Zofran) 4 mg 1X ONCE IVP Last administered on 08/17/19at 22:15; Start 08/17/19 at 22:30; Stop 08/17/19 at 22:31; Status DC Sodium Polystyrene Sulfonate (Kayexalate) 15 gm 1X ONCE PO ; Start 08/18/19 at 03:00; Stop 08/18/19 at 03:01; Status DC Insulin Human Regular (HumuLIN R VIAL) 10 unit 1X ONCE IV Last administered on 08/18/19at 03:06; Start 08/18/19 at 03:00; Stop 08/18/19 at 03:01; Status DC Dextrose (Dextrose 50%-Water Syringe) 25 gm 1X ONCE IV Last administered on 08/18/19at 03:03; Start 08/18/19 at 03:00; Stop 08/18/19 at 03:01; Status DC Ondansetron HCl (Zofran) 4 mg PRN Q8HRS PRN IV NAUSEA/VOMITING 1ST CHOICE Last administered on 08/18/19at 06:07; Start 08/18/19 at 03:00; Stop 08/19/19 at 02:59; Status DC Morphine Sulfate (Morphine Sulfate) 2 mg PRN Q2HR PRN IV SEVERE PAIN 7-10 Last administered on 08/19/19at 00:28; Start 08/18/19 at 03:00; Stop 08/19/19 at 02:59; Status DC Dextrose (Dextrose 50%-Water Syringe) 25 gm STK-MED ONCE IV ; Start 08/18/19 at 07:07; Stop 08/18/19 at 07:07; Status DC Dextrose 500 ml @ 0 mls/hr 1X ONCE IV Last administered on 08/18/19at 11:15; Start 08/18/19 at 11:15; Stop 08/18/19 at 11:16; Status DC Dextrose (Dextrose 50%-Water Syringe) 12.5 gm PRN Q15MIN PRN IV SEE COMMENTS; Start 08/18/19 at 11:15 Dextrose (Dextrose 50%-Water Syringe) 25 gm STK-MED ONCE IV ; Start 08/18/19 at 11:15; Stop 08/18/19 at 11:15; Status DC Albuterol Sulfate (Ventolin Neb Soln) 2.5 mg RTBID PRN INH SHORTNESS OF BREATH; Start 08/18/19 at 20:00 Amlodipine Besylate (Norvasc) 10 mg DAILY PO ; Start 08/19/19 at 09:00 Atorvastatin Calcium (Lipitor) 40 mg HS PO Last administered on 08/18/19at 21:11; Start 08/18/19 at 21:00 Carvedilol (Coreg) 12.5 mg BIDWMEALS PO ; Start 08/18/19 at 17:00 Clonidine HCl (Catapres Tts-2) 1 patch WEEKLY TD ; Start 08/25/19 at 09:00 Clopidogrel Bisulfate (Plavix) 75 mg DAILYWBKFT PO ; Start 08/19/19 at 08:00 Vitamin B Complex/ Vitamin C (Pinky-Shreya) 1 tab DAILY PO ; Start 08/19/19 at 09:00 Guaifenesin (Robitussin Dm) 10 ml PRN Q6HRS PRN PO COUGH; Start 08/18/19 at 12:00 Hydralazine HCl (Apresoline) 25 mg TID PO Last administered on 08/18/19at 21:12; Start 08/18/19 at 14:00 Insulin Human Lispro (HumaLOG) TIDWMEALS SQ ; Start 08/18/19 at 12:00 Lactobacillus Rhamnosus (Culturelle) 1 cap BID PO Last administered on 08/18/19at 21:11; Start 08/18/19 at 21:00 Latanoprost (Xalatan) 1 drop HS OU ; Start 08/18/19 at 21:00 Levothyroxine Sodium (Synthroid) 50 mcg DAILY07 PO ; Start 08/19/19 at 07:00 Lisinopril (Prinivil) 20 mg DAILY PO ; Start 08/19/19 at 09:00 Ondansetron HCl (Zofran Odt) 4 mg PRN Q6HRS PRN PO NAUSEA/VOMITING 1ST CHOICE; Start 08/18/19 at 12:00 Prochlorperazine Maleate (Compazine) 5 mg PRN TID PRN PO NAUSEA- 2ND CHOICE; Start 08/18/19 at 12:00 Sertraline HCl (Zoloft) 50 mg DAILY PO ; Start 08/19/19 at 09:00 Acetaminophen (Tylenol) 650 mg PRN Q6HRS PRN PO MILD PAIN / TEMP > 100.3'F; Start 08/18/19 at 12:00 Amylase/Lipase/ Protease (Zenpep 5,000) 1 cap TIDWMEALS PO ; Start 08/18/19 at 12:00 Famotidine (Pepcid) 20 mg Q48H PO Last administered on 08/18/19at 21:11; Start 08/18/19 at 21:00 Pantoprazole Sodium (Protonix) 40 mg DAILYAC PO ; Start 08/19/19 at 07:30 Heparin Sodium (Porcine) (Heparin Sodium) 5,000 unit Q12HR SQ ; Start 08/18/19 at 21:00 Sodium Polystyrene Sulfonate (Kayexalate) 30 gm 1X ONCE PO ; Start 08/18/19 at 12:15; Stop 08/18/19 at 12:16; Status DC Magnesium Sulfate 50 ml @ 25 mls/hr PRN DAILY PRN IV for Mag < 1.7 on am labs; Start 08/18/19 at 13:00 Sodium Chloride 1,000 ml @ 1,000 mls/hr Q1H PRN IV hypotension; Start 08/19/19 at 07:18; Stop 08/19/19 at 13:17 Acetaminophen (Tylenol) 500 mg 1X PRN PRN PO MILD PAIN / TEMP > 100.3'F; Start 08/19/19 at 07:30; Stop 08/20/19 at 07:29 Diphenhydramine HCl (Benadryl) 25 mg 1X PRN PRN IV ITCHING; Start 08/19/19 at 07:30; Stop 08/20/19 at 07:29 Diphenhydramine HCl (Benadryl) 25 mg 1X PRN PRN IV ITCHING; Start 08/19/19 at 07:30; Stop 08/20/19 at 07:29 Sodium Chloride 1,000 ml @ 400 mls/hr Q2H30M PRN IV PATENCY; Start 08/19/19 at 07:18; Stop 08/19/19 at 19:17 Info (PHARMACY MONITORING -- do not chart) 1 each PRN DAILY PRN MC SEE COMMENTS; Start 08/19/19 at 07:30 Tramadol HCl (Ultram) 50 mg PRN Q6HRS PRN PO PAIN; Start 08/19/19 at 08:30 Dextrose (Dextrose 50%-Water Syringe) 50 gm STK-MED ONCE IV ; Start 08/18/19 at 09:00; Stop 08/19/19 at 08:25; Status DC Active Scripts Active Guaifenesin Dm Syrup (Guaifenesin/Dextromethorphan) 5 Ml Syrup 10 Ml PO PRN Q6HRS PRN 10 Days Carvedilol (Carvedilol) 6.25 Mg Tablet 12.5 Mg PO BIDWMEALS Hydralazine Hcl 25 Mg Tablet 25 Mg PO TID Humalog (Insulin Lispro) 100 Unit/1 Ml Insuln.pen 0 Units SQ TIDWMEALS 28 Days Culturelle (Lactobacillus Rhamnosus Gg) 1 Each Cap.sprink 1 Cap PO BID 30 Days Ondansetron Odt (Ondansetron) 4 Mg Tab.rapdis 4 Mg PO PRN Q6HRS PRN 28 Days Clopidogrel (Clopidogrel Bisulfate) 75 Mg Tablet 75 Mg PO DAILYWBKFT 30 Days Pinky-Shreya Tablet (Folic Acid/Vitamin B Comp W-C) 0.8 Mg Tablet 1 Tab PO DAILY Tylenol (Acetaminophen) 325 Mg Capsule 650 Mg PO Q6-8HRS PRN Zantac (Ranitidine Hcl) 300 Mg Tablet 1 Tab PO QHS Compazine (Prochlorperazine Maleate) 5 Mg Tablet 5 Mg PO PRN TID PRN 10 Days [Pantoprazole] 40 MG Tablet. 40 Mg PO DAILYAC 30 Days Reported Zoloft (Sertraline Hcl) 50 Mg Tablet 50 Mg PO DAILY Lisinopril 20 Mg Tablet 20 Mg PO DAILY Creon 6,000 Units Capsule (Lipase/Protease/Amylase) 1 Each Capsule. 1 Tab PO TID Proair Hfa (Albuterol Sulfate) 8.5 Gm Hfa.aer.ad 2 Puff INH BID PRN Levothyroxine Sodium 50 Mcg Tablet 1 Tab PO DAILY Clonidine Tts-2 (Clonidine) 1 Each Patch.tdwk 1 Patch TD WEEKLY Amlodipine Besylate 5 Mg Tablet 10 Mg PO DAILY Atorvastatin Calcium 40 Mg Tablet 40 Mg PO HS Latanoprost 2.5 Ml Drops 1 Drop EACHEYE HS Vitals/I & O Vital Sign - Last 24 Hours 08/18/19 08/18/19 08/18/19 08/18/19 10:50 11:22 14:00 15:01 Temp 97.9 97.8 97.9 97.8 Pulse 68 72 72 Resp 18 18 B/P (MAP) 150/82 (104) 158/84 158/84 (108) Pulse Ox 95 95 98 O2 Delivery Room Air Nasal Cannula Nasal Cannula O2 Flow Rate 4.0 2.0 08/18/19 08/18/19 08/18/19 08/18/19 17:00 18:28 19:00 20:00 Temp 97.8 97.8 Pulse 72 67 Resp 22 B/P (MAP) 158/84 171/74 (106) Pulse Ox 98 93 O2 Delivery Nasal Cannula Nasal Cannula O2 Flow Rate 2.0 2.0 08/18/19 08/18/19 08/18/19 08/18/19 21:11 21:12 21:41 23:00 Temp 97.6 97.6 Pulse 72 69 Resp 18 B/P (MAP) 158/84 163/73 (103) Pulse Ox 98 98 93 O2 Delivery Nasal Cannula Nasal Cannula O2 Flow Rate 2.0 2.0 08/19/19 08/19/19 08/19/19 00:28 03:00 07:53 Temp 97.6 97.6 97.6 97.6 Pulse 67 68 Resp 18 16 B/P (MAP) 160/74 (102) 129/69 (89) Pulse Ox 93 92 94 O2 Delivery Nasal Cannula Room Air O2 Flow Rate 2.0 Intake and Output 08/18/19 08/18/19 08/19/19 15:00 23:00 07:00 Intake Total 120 ml 120 ml Output Total 0 ml Balance 120 ml 120 ml FELI SHAH MD August 19, 2019 08:33
--- NOTE | 2019-08-19 08:56 | NUR ---
Pt requested pain medication. YouCalled Dr. Hoyos for order, he ordered Tramadol. Brought med to pt, she states tramadol does not work for her and she will not take any of her medication until she gets pain medication that she wants. Told her the physician d/c morphine and Tramadol is all she has available at this time. Pt refused medications and stated she wanted to leave, encouraged her to stay for dialysis today, she stated she would do dialysis but would be leaving afterward. Non-administered medication, will continue to monitor pt.
[2019-08-19] MEDS ORDERED: LISINOPRIL 20 MG TABLET PO SCH (09:00)
[2019-08-19] MEDS ORDERED: FOLIC/VIT B COMP W-C (RENAL) TABLET. PO SCH (09:00)
[2019-08-19] MEDS: LACTOBACILLUS RHAMNOSUS GG 1 CAPSULE. PO SCH (09:00)
[2019-08-19] MEDS: hydrALAZINE 25 MG TABLET PO SCH ×2 (09:00→14:00)
[2019-08-19] MEDS: HEPARIN for SUB-Q USE 5,000 UNIT/ML VIAL. SQ SCH (09:00)
[2019-08-19] MEDS ORDERED: SERTRALINE 50 MG TABLET. PO SCH (09:00)
[2019-08-19] MEDS ORDERED: amLODIPine BESYLATE 5 MG TABLET PO SCH (09:00)
[2019-08-19 11:44] VITALS: BP 194/64
--- NOTE | 2019-08-19 13:17 | PDOC ---
Dialysis Progress Note Dialysis Note Dialysis Note Seen on Hemodialysis, tolerating treatment Well so far Vitals on Hemodialysis: 183/83 74 afeb General Appearance: Awake: Alert Oriented x ? 1-2 Neck: No JVD or JVP Chest: CTA Loy Heart: S1 S2 Abdomen - Soft NTND Extremities - No Edema ESRD: Dialysis as below F 180 NR 3.0 Hrs 2 K 2.5 Ca 140 Na 35 HC03 Qb 350 + Qd 500+ Heparin 0 Units Uf 2-3 Kgs or to dry weight as tolerated May give 25-50 gms of 25% Albumin if needed to maintain Hemodynamic stability Treatment plan reviewed and discussed with nanotechnology technician Vitals Vital Signs Vital Signs Date Time Temp Pulse Resp B/P (MAP) Pulse Ox O2 Delivery O2 Flow Rate FiO2 08/19/19 11:44 97.3 70 16 194/64 (107) 92 Room Air 97.3 08/19/19 00:28 2.0 Labs Last Labs Laboratory Tests Test 08/17/19 21:29 08/17/19 21:45 08/18/19 00:05 08/18/19 07:05 Glucose (Fingerstick) 96 mg/dL (70-99) 44 mg/dL (70-99) White Blood Count 6.3 x10^3/uL (4.0-11.0) Red Blood Count 3.82 x10^6/uL (3.50-5.40) Hemoglobin 11.5 g/dL (12.0-15.5) Hematocrit 34.1 % (36.0-47.0) Mean Corpuscular Volume 89 fL (79-100) Mean Corpuscular Hemoglobin 30 pg (25-35) Mean Corpuscular Hemoglobin Concent 34 g/dL (31-37) Red Cell Distribution Width 19.9 % (11.5-14.5) Platelet Count 225 x10^3/uL (140-400) Neutrophils (%) (Auto) 72 % (31-73) Lymphocytes (%) (Auto) 18 % (24-48) Monocytes (%) (Auto) 9 % (0-9) Eosinophils (%) (Auto) 0 % (0-3) Basophils (%) (Auto) 1 % (0-3) Neutrophils # (Auto) 4.6 x10^3/uL (1.8-7.7) Lymphocytes # (Auto) 1.1 x10^3/uL (1.0-4.8) Monocytes # (Auto) 0.6 x10^3/uL (0.0-1.1) Eosinophils # (Auto) 0.0 x10^3/uL (0.0-0.7) Basophils # (Auto) 0.1 x10^3/uL (0.0-0.2) Sodium Level 138 mmol/L (136-145) Potassium Level 5.3 mmol/L (3.5-5.1) Chloride Level 100 mmol/L (98-107) Carbon Dioxide Level 26 mmol/L (21-32) Anion Gap 12 (6-14) Blood Urea Nitrogen 53 mg/dL (7-20) Creatinine 6.2 mg/dL (0.6-1.0) Estimated GFR (Cockcroft-Gault) 8.4 BUN/Creatinine Ratio 9 (6-20) Glucose Level 96 mg/dL (70-99) Calcium Level 9.3 mg/dL (8.5-10.1) Total Bilirubin 0.5 mg/dL (0.2-1.0) Aspartate Amino Transf (AST/SGOT) 30 U/L (15-37) Alanine Aminotransferase (ALT/SGPT) 63 U/L (14-59) Alkaline Phosphatase 124 U/L (46-116) Total Protein 6.7 g/dL (6.4-8.2) Albumin 3.3 g/dL (3.4-5.0) Albumin/Globulin Ratio 1.0 (1.0-1.7) Lipase 125 U/L (73-393) Test 08/18/19 07:30 08/18/19 11:04 08/18/19 16:10 08/18/19 21:07 Glucose (Fingerstick) 68 mg/dL (70-99) 55 mg/dL (70-99) 133 mg/dL (70-99) 115 mg/dL (70-99) Test 08/19/19 03:05 08/19/19 07:52 White Blood Count 5.3 x10^3/uL (4.0-11.0) Red Blood Count 3.73 x10^6/uL (3.50-5.40) Hemoglobin 11.3 g/dL (12.0-15.5) Hematocrit 33.7 % (36.0-47.0) Mean Corpuscular Volume 90 fL (79-100) Mean Corpuscular Hemoglobin 30 pg (25-35) Mean Corpuscular Hemoglobin Concent 34 g/dL (31-37) Red Cell Distribution Width 19.9 % (11.5-14.5) Platelet Count 184 x10^3/uL (140-400) Neutrophils (%) (Auto) 60 % (31-73) Lymphocytes (%) (Auto) 26 % (24-48) Monocytes (%) (Auto) 12 % (0-9) Eosinophils (%) (Auto) 1 % (0-3) Basophils (%) (Auto) 1 % (0-3) Neutrophils # (Auto) 3.2 x10^3/uL (1.8-7.7) Lymphocytes # (Auto) 1.4 x10^3/uL (1.0-4.8) Monocytes # (Auto) 0.6 x10^3/uL (0.0-1.1) Eosinophils # (Auto) 0.1 x10^3/uL (0.0-0.7) Basophils # (Auto) 0.1 x10^3/uL (0.0-0.2) Sodium Level 136 mmol/L (136-145) Potassium Level 5.7 mmol/L (3.5-5.1) Chloride Level 100 mmol/L (98-107) Carbon Dioxide Level 25 mmol/L (21-32) Anion Gap 11 (6-14) Blood Urea Nitrogen 59 mg/dL (7-20) Creatinine 7.2 mg/dL (0.6-1.0) Estimated GFR (Cockcroft-Gault) 7.1 BUN/Creatinine Ratio 8 (6-20) Glucose Level 96 mg/dL (70-99) Calcium Level 8.9 mg/dL (8.5-10.1) Phosphorus Level 6.5 mg/dL (2.6-4.7) Magnesium Level 2.4 mg/dL (1.8-2.4) Total Bilirubin 0.4 mg/dL (0.2-1.0) Aspartate Amino Transf (AST/SGOT) 45 U/L (15-37) Alanine Aminotransferase (ALT/SGPT) 73 U/L (14-59) Alkaline Phosphatase 157 U/L (46-116) Total Protein 6.3 g/dL (6.4-8.2) Albumin 3.2 g/dL (3.4-5.0) Albumin/Globulin Ratio 1.0 (1.0-1.7) Glucose (Fingerstick) 94 mg/dL (70-99) Laboratory Tests Test 08/18/19 16:10 08/18/19 21:07 08/19/19 03:05 08/19/19 07:52 Glucose (Fingerstick) 133 mg/dL (70-99) 115 mg/dL (70-99) 94 mg/dL (70-99) White Blood Count 5.3 x10^3/uL (4.0-11.0) Red Blood Count 3.73 x10^6/uL (3.50-5.40) Hemoglobin 11.3 g/dL (12.0-15.5) Hematocrit 33.7 % (36.0-47.0) Mean Corpuscular Volume 90 fL (79-100) Mean Corpuscular Hemoglobin 30 pg (25-35) Mean Corpuscular Hemoglobin Concent 34 g/dL (31-37) Red Cell Distribution Width 19.9 % (11.5-14.5) Platelet Count 184 x10^3/uL (140-400) Neutrophils (%) (Auto) 60 % (31-73) Lymphocytes (%) (Auto) 26 % (24-48) Monocytes (%) (Auto) 12 % (0-9) Eosinophils (%) (Auto) 1 % (0-3) Basophils (%) (Auto) 1 % (0-3) Neutrophils # (Auto) 3.2 x10^3/uL (1.8-7.7) Lymphocytes # (Auto) 1.4 x10^3/uL (1.0-4.8) Monocytes # (Auto) 0.6 x10^3/uL (0.0-1.1) Eosinophils # (Auto) 0.1 x10^3/uL (0.0-0.7) Basophils # (Auto) 0.1 x10^3/uL (0.0-0.2) Sodium Level 136 mmol/L (136-145) Potassium Level 5.7 mmol/L (3.5-5.1) Chloride Level 100 mmol/L (98-107) Carbon Dioxide Level 25 mmol/L (21-32) Anion Gap 11 (6-14) Blood Urea Nitrogen 59 mg/dL (7-20) Creatinine 7.2 mg/dL (0.6-1.0) Estimated GFR (Cockcroft-Gault) 7.1 BUN/Creatinine Ratio 8 (6-20) Glucose Level 96 mg/dL (70-99) Calcium Level 8.9 mg/dL (8.5-10.1) Phosphorus Level 6.5 mg/dL (2.6-4.7) Magnesium Level 2.4 mg/dL (1.8-2.4) Total Bilirubin 0.4 mg/dL (0.2-1.0) Aspartate Amino Transf (AST/SGOT) 45 U/L (15-37) Alanine Aminotransferase (ALT/SGPT) 73 U/L (14-59) Alkaline Phosphatase 157 U/L (46-116) Total Protein 6.3 g/dL (6.4-8.2) Albumin 3.2 g/dL (3.4-5.0) Albumin/Globulin Ratio 1.0 (1.0-1.7) Assessment Assessment Problems Medical Problems: (1) Abdominal pain Status: Acute (2) ESRD on dialysis Status: Chronic (3) Hyperkalemia Status: Acute Plan Plan of Care Problems Medical Problems: (1) Abdominal pain Status: Acute (2) ESRD on dialysis Status: Chronic (3) Hyperkalemia Status: Acute PAOLA YATES MD August 19, 2019 13:17
[2019-08-19] MEDS ORDERED: HYDR-2761 PO (15:22)
--- NOTE | 2019-08-19 15:25 | SNU/HH DC ---
DISCHARGE WITH HOME HEALTH DISCHARGE INFORMATION: Discharge Date: August 19, 2019 Final Diagnosis: Problems Medical Problems: (1) Abdominal pain Status: Acute (2) ESRD on dialysis Status: Chronic (3) Hyperkalemia Status: Acute Condition on Discharge: Stable CODE STATUS: Code Status: Full HOME HEALTH: Face to Face: I certify this patient is under my care and that I, or a nurse practitioner or physician's retail store assistant working with me, had a face to face encounter that meets the physician face to face encounter requirements with this patient on 08/19/2019. Medical Complications: DJD, DM, HTN Assisted For: Admin/Educate Injections, Diabetic Care, Medication Geraldine angeles RN For Eval/Treatment: Yes Physical Therapy For: Evalulation/Treatment Occupational Therapy For: Evaluation/Treatment Pt Meets Homebound Status: Poor coordination w/ amb., Extreme weakness w/ amb., Frequent falls w/ injury POST DISCHARGE ORDERS: Activity Instructions for Disc: Activity as tolerated Weight Bearing Status after Di: No restrictions Bathing Instructions: Shower-keep dressing dry, No Tub Bath until see DIET AFTER DISCHARGE: Renal Wound/Incision Care: No wound care needed CHECKS AFTER DISCHARGE: Checks after discharge: Check blood press - daily, Check blood sugar, ac/hs, Check your Temp as needed TREATMENT/EQUIPMENT ORDERS: Adaptive Equipment Issued: None Discharge Respiratory Equipmen: Oxygen CERTIFICATION STATEMENT: Certification Statement: Certification Statement: Based on the above finding, I certify that this patient is confined to the home and needs intermittent usp care, physical therapy and/or speech therapy, or continues to need occupational therapy.~ This patient is under my care, and I have initiated the establishment of the plan of care.~ This patient will be followed by myself or a community physician who will periodically review the plan of care. Home Meds Active Scripts Hydrocodone Bit/Acetaminophen (HYDROCODONE-APAP 5-325 ) 1 Tab Tablet, 1 TAB PO PRN Q6HRS PRN for PAIN for 4 Days, #12 TAB 0 Refills Prov:FELI SHAH MD 08/19/19 Guaifenesin/Dextromethorphan (GUAIFENESIN DM SYRUP) 5 Ml Syrup, 10 ML PO PRN Q6HRS PRN for COUGH for 10 Days, #120 MISC Prov:SANGEETHA MUELLER MD 02/12/19 Carvedilol (CARVEDILOL ) 6.25 Mg Tablet, 12.5 MG PO BIDWMEALS for htn, #60 TAB Prov:PRABHAKAR MOSQUERA MD 01/29/19 Hydralazine Hcl (HYDRALAZINE HCL) 25 Mg Tablet, 25 MG PO TID for htn, #10 TAB Prov:PRABHAKAR MOSQUERA MD 01/29/19 Insulin Lispro (HUMALOG) 100 Unit/1 Ml Insuln.pen, 0 UNITS SQ TIDWMEALS for glucose for 28 Days, #3 EACH Prov:SANGEETHA MUELLER MD 12/26/18 Lactobacillus Rhamnosus Gg (CULTURELLE) 1 Each Cap.sprink, 1 CAP PO BID for supplement for 30 Days, #60 CAP Prov:SANGEETHA MUELLER MD 12/26/18 Ondansetron (ONDANSETRON ODT) 4 Mg Tab.rapdis, 4 MG PO PRN Q6HRS PRN for NAUSEA/VOMITING 1ST CHOICE for 28 Days, #30 TAB Prov:SANGEETHA MUELLER MD 12/26/18 Clopidogrel Bisulfate (CLOPIDOGREL) 75 Mg Tablet, 75 MG PO DAILYWBKFT for pvd for 30 Days, #30 TAB Prov:SANGEETHA MUELLER MD 12/26/18 Folic Acid/Vitamin B Comp W-C (JOSE GUADALUPE-TORY TABLET) 0.8 Mg Tablet, 1 TAB PO DAILY for esrd, #30 TAB Prov:PRABHAKAR MOSQUERA MD 12/10/18 Acetaminophen (Tylenol) 325 Mg Capsule, 650 MG PO Q6-8HRS PRN for PAIN, #20 CAP Prov:KIMBERLY DONOHUE MD 11/14/18 Ranitidine Hcl (ZANTAC) 300 Mg Tablet, 1 TAB PO QHS for reflux, #90 TAB 3 Refills Prov:DANIELA ALMAZAN DO 08/29/18 Prochlorperazine Maleate (Compazine) 5 Mg Tablet, 5 MG PO PRN TID PRN for NAUSEA for 10 Days, #30 TAB Prov:FELI SHAH MD 08/26/18 [Pantoprazole] 40 MG TABLET.DR Cassidy Conflict Check, 40 MG PO DAILYAC for GERD for 30 Days, #30 2 Refills Prov:FELI SHAH MD 03/07/18 Reported Medications Sertraline Hcl (ZOLOFT) 50 Mg Tablet, 50 MG PO DAILY for ANTI-DEPRESSANT, TAB 0 Refills 05/27/18 Lisinopril (LISINOPRIL) 20 Mg Tablet, 20 MG PO DAILY for FOR HYPERTENSION, TAB 0 Refills 05/27/18 Lipase/Protease/Amylase (CLIFFORDON 6,000 UNITS CAPSULE) 1 Each Capsule.dr, 1 TAB PO TID for digestion 04/23/18 Albuterol Sulfate (Proair Hfa) 8.5 Gm Hfa.aer.ad, 2 PUFF INH BID PRN for SHORTNESS OF BREATH, INHALER 03/22/18 Levothyroxine Sodium (LEVOTHYROXINE SODIUM) 50 Mcg Tablet, 1 TAB PO DAILY for thyroid, #30 TAB 5 Refills 03/22/18 Clonidine (CLONIDINE TTS-2 ) 1 Each Patch.tdwk, 1 PATCH TD WEEKLY for blood pressure, PATCH 03/22/18 Amlodipine Besylate (AMLODIPINE BESYLATE) 5 Mg Tablet, 10 MG PO DAILY for blood pressure 12/05/17 Atorvastatin Calcium (ATORVASTATIN CALCIUM) 40 Mg Tablet, 40 MG PO HS for cholesterol 12/05/17 Latanoprost (LATANOPROST) 2.5 Ml Drops, 1 DROP EACHEYE HS 09/24/17 FELI SHAH MD August 19, 2019 15:24
--- NOTE | 2019-08-19 15:29 | PDOC3 ---
Discharge Summary Visit Information Date of Admission: August 18, 2019 Date of Discharge: August 19, 2019 Admitting Diagnosis: Acute abdominal pain Final Diagnosis Problems Medical Problems: (1) Abdominal pain Status: Acute (2) ESRD on dialysis Status: Chronic (3) Hyperkalemia Status: Acute Brief Hospital Course Allergies Allergies Coded Allergies Type Severity Reaction Last Updated Verified No Known Drug Allergies 02/27/19 No Vital Signs Vital Signs Date Time Temp Pulse Resp B/P (MAP) Pulse Ox O2 Delivery O2 Flow Rate FiO2 08/19/19 11:44 97.3 70 16 194/64 (107) 92 Room Air 97.3 08/19/19 08:00 2.0 Lab Results Laboratory Tests Test 08/17/19 21:29 08/17/19 21:45 08/18/19 00:05 08/18/19 07:05 Glucose (Fingerstick) 96 mg/dL (70-99) 44 mg/dL (70-99) White Blood Count 6.3 x10^3/uL (4.0-11.0) Red Blood Count 3.82 x10^6/uL (3.50-5.40) Hemoglobin 11.5 g/dL (12.0-15.5) Hematocrit 34.1 % (36.0-47.0) Mean Corpuscular Volume 89 fL (79-100) Mean Corpuscular Hemoglobin 30 pg (25-35) Mean Corpuscular Hemoglobin Concent 34 g/dL (31-37) Red Cell Distribution Width 19.9 % (11.5-14.5) Platelet Count 225 x10^3/uL (140-400) Neutrophils (%) (Auto) 72 % (31-73) Lymphocytes (%) (Auto) 18 % (24-48) Monocytes (%) (Auto) 9 % (0-9) Eosinophils (%) (Auto) 0 % (0-3) Basophils (%) (Auto) 1 % (0-3) Neutrophils # (Auto) 4.6 x10^3/uL (1.8-7.7) Lymphocytes # (Auto) 1.1 x10^3/uL (1.0-4.8) Monocytes # (Auto) 0.6 x10^3/uL (0.0-1.1) Eosinophils # (Auto) 0.0 x10^3/uL (0.0-0.7) Basophils # (Auto) 0.1 x10^3/uL (0.0-0.2) Sodium Level 138 mmol/L (136-145) Potassium Level 5.3 mmol/L (3.5-5.1) Chloride Level 100 mmol/L (98-107) Carbon Dioxide Level 26 mmol/L (21-32) Anion Gap 12 (6-14) Blood Urea Nitrogen 53 mg/dL (7-20) Creatinine 6.2 mg/dL (0.6-1.0) Estimated GFR (Cockcroft-Gault) 8.4 BUN/Creatinine Ratio 9 (6-20) Glucose Level 96 mg/dL (70-99) Calcium Level 9.3 mg/dL (8.5-10.1) Total Bilirubin 0.5 mg/dL (0.2-1.0) Aspartate Amino Transf (AST/SGOT) 30 U/L (15-37) Alanine Aminotransferase (ALT/SGPT) 63 U/L (14-59) Alkaline Phosphatase 124 U/L (46-116) Total Protein 6.7 g/dL (6.4-8.2) Albumin 3.3 g/dL (3.4-5.0) Albumin/Globulin Ratio 1.0 (1.0-1.7) Lipase 125 U/L (73-393) Test 08/18/19 07:30 08/18/19 11:04 08/18/19 16:10 08/18/19 21:07 Glucose (Fingerstick) 68 mg/dL (70-99) 55 mg/dL (70-99) 133 mg/dL (70-99) 115 mg/dL (70-99) Test 08/19/19 03:05 08/19/19 07:52 White Blood Count 5.3 x10^3/uL (4.0-11.0) Red Blood Count 3.73 x10^6/uL (3.50-5.40) Hemoglobin 11.3 g/dL (12.0-15.5) Hematocrit 33.7 % (36.0-47.0) Mean Corpuscular Volume 90 fL (79-100) Mean Corpuscular Hemoglobin 30 pg (25-35) Mean Corpuscular Hemoglobin Concent 34 g/dL (31-37) Red Cell Distribution Width 19.9 % (11.5-14.5) Platelet Count 184 x10^3/uL (140-400) Neutrophils (%) (Auto) 60 % (31-73) Lymphocytes (%) (Auto) 26 % (24-48) Monocytes (%) (Auto) 12 % (0-9) Eosinophils (%) (Auto) 1 % (0-3) Basophils (%) (Auto) 1 % (0-3) Neutrophils # (Auto) 3.2 x10^3/uL (1.8-7.7) Lymphocytes # (Auto) 1.4 x10^3/uL (1.0-4.8) Monocytes # (Auto) 0.6 x10^3/uL (0.0-1.1) Eosinophils # (Auto) 0.1 x10^3/uL (0.0-0.7) Basophils # (Auto) 0.1 x10^3/uL (0.0-0.2) Sodium Level 136 mmol/L (136-145) Potassium Level 5.7 mmol/L (3.5-5.1) Chloride Level 100 mmol/L (98-107) Carbon Dioxide Level 25 mmol/L (21-32) Anion Gap 11 (6-14) Blood Urea Nitrogen 59 mg/dL (7-20) Creatinine 7.2 mg/dL (0.6-1.0) Estimated GFR (Cockcroft-Gault) 7.1 BUN/Creatinine Ratio 8 (6-20) Glucose Level 96 mg/dL (70-99) Calcium Level 8.9 mg/dL (8.5-10.1) Phosphorus Level 6.5 mg/dL (2.6-4.7) Magnesium Level 2.4 mg/dL (1.8-2.4) Total Bilirubin 0.4 mg/dL (0.2-1.0) Aspartate Amino Transf (AST/SGOT) 45 U/L (15-37) Alanine Aminotransferase (ALT/SGPT) 73 U/L (14-59) Alkaline Phosphatase 157 U/L (46-116) Total Protein 6.3 g/dL (6.4-8.2) Albumin 3.2 g/dL (3.4-5.0) Albumin/Globulin Ratio 1.0 (1.0-1.7) Glucose (Fingerstick) 94 mg/dL (70-99) Laboratory Tests Test 08/18/19 16:10 08/18/19 21:07 08/19/19 03:05 08/19/19 07:52 Glucose (Fingerstick) 133 mg/dL (70-99) 115 mg/dL (70-99) 94 mg/dL (70-99) White Blood Count 5.3 x10^3/uL (4.0-11.0) Red Blood Count 3.73 x10^6/uL (3.50-5.40) Hemoglobin 11.3 g/dL (12.0-15.5) Hematocrit 33.7 % (36.0-47.0) Mean Corpuscular Volume 90 fL (79-100) Mean Corpuscular Hemoglobin 30 pg (25-35) Mean Corpuscular Hemoglobin Concent 34 g/dL (31-37) Red Cell Distribution Width 19.9 % (11.5-14.5) Platelet Count 184 x10^3/uL (140-400) Neutrophils (%) (Auto) 60 % (31-73) Lymphocytes (%) (Auto) 26 % (24-48) Monocytes (%) (Auto) 12 % (0-9) Eosinophils (%) (Auto) 1 % (0-3) Basophils (%) (Auto) 1 % (0-3) Neutrophils # (Auto) 3.2 x10^3/uL (1.8-7.7) Lymphocytes # (Auto) 1.4 x10^3/uL (1.0-4.8) Monocytes # (Auto) 0.6 x10^3/uL (0.0-1.1) Eosinophils # (Auto) 0.1 x10^3/uL (0.0-0.7) Basophils # (Auto) 0.1 x10^3/uL (0.0-0.2) Sodium Level 136 mmol/L (136-145) Potassium Level 5.7 mmol/L (3.5-5.1) Chloride Level 100 mmol/L (98-107) Carbon Dioxide Level 25 mmol/L (21-32) Anion Gap 11 (6-14) Blood Urea Nitrogen 59 mg/dL (7-20) Creatinine 7.2 mg/dL (0.6-1.0) Estimated GFR (Cockcroft-Gault) 7.1 BUN/Creatinine Ratio 8 (6-20) Glucose Level 96 mg/dL (70-99) Calcium Level 8.9 mg/dL (8.5-10.1) Phosphorus Level 6.5 mg/dL (2.6-4.7) Magnesium Level 2.4 mg/dL (1.8-2.4) Total Bilirubin 0.4 mg/dL (0.2-1.0) Aspartate Amino Transf (AST/SGOT) 45 U/L (15-37) Alanine Aminotransferase (ALT/SGPT) 73 U/L (14-59) Alkaline Phosphatase 157 U/L (46-116) Total Protein 6.3 g/dL (6.4-8.2) Albumin 3.2 g/dL (3.4-5.0) Albumin/Globulin Ratio 1.0 (1.0-1.7) Brief Hospital Course Ms. Smith, is a 57 year old F w/ PMHx ESRD on HD M/W/F, hypertension, diabetes mellitus, bilateral below knee amputation, chronic pain and neuropathy who presents via EMS because of confusion due to glucose of 44 and missed dialysis as well as abdominal pain. She has been to ED 3 times since she was discharged home with home health, and she and her daughter and mother are concerned about inability to take care of herself. She actively asks to go home and have some pain medication prescription while I am examining her today. She complains of chronic back pain. Further reviews of systems is unobtainable secondary to patient's nonparticipation. she is tolerating dialysis well. D/w nephrology low K bath and 2-3kg UF. K 5.7 feeling improved, no GI pain. She is asking for pain medications for her chronic back pain. No S OB or CP. Glucose has been elevated since the low glucose of 44 approximately 24 hours ago. Discharged home into home health care. Problem list: Acute encephalopathy secondary to metabolic etiology with hypoglycemia Abdominal discomfort which seems to have resolved Hyperkalemia - K 5.7, will give kayexelate ESRD - MWF [facility] patient. Fistula functioning again now. She is very intermittently compliant. Acute on chronic diastolic CHF - with elevated BNP and CXR findings concerning, will diurese Accelerated HTN: labile, will restart meds Anasarca Noncompliance: missed dialysis, no transport. Suspect missed meds as well. Hx of severe LE PAD - S/P bilateral BKA. more recent to left leg, incision intact Debility HX NONCOMPLIANCE Anxiety Chronic back pain Chronic anemia Elevated liver function tests Depression sec to med illness History of diabetes mellitus type 2 History of hypothyroidism Chronic pain syndrome History of bilateral BKA Greater than 30 minutes spent on d/c home with home health. Discharge Information Condition at Discharge: Improved Follow Up: Weeks Disposition/Orders: D/C to Home Scheduled Amlodipine Besylate (Amlodipine Besylate) 5 Mg Tablet, 10 MG PO DAILY for blood pressure, (Reported) Entered as Reported by: JENNIE SMITH on 12/05/17809 Last Action: Continued on 08/18/19 114 by JASPAL RAMOS MD Atorvastatin Calcium (Atorvastatin Calcium) 40 Mg Tablet, 40 MG PO HS for cholesterol, (Reported) Entered as Reported by: JENNIE SMITH on 12/05/17809 Last Action: Continued on 08/18/19 114 by JASPAL RAMOS MD Carvedilol (Carvedilol ) 6.25 Mg Tablet, 12.5 MG PO BIDWMEALS for htn, #60 Prescribed by: PRABHAKAR MOSQUERA on 01/29/19 1113 Last Action: Continued on 08/18/19 114 by JASPAL RAMOS MD Clonidine (Clonidine Tts-2 ) 1 Each Patch.tdwk, 1 PATCH TD WEEKLY for blood pressure, (Reported) Entered as Reported by: VIKI PANG on 03/22/18 1727 Last Action: Continued on 08/18/19 114 by JASPAL RAMOS MD Clopidogrel Bisulfate (Clopidogrel) 75 Mg Tablet, 75 MG PO DAILYWBKFT for pvd for 30 Days, #30 Prescribed by: SANGEETHA MUELLER MD on 12/26/18 1247 Last Action: Continued on 08/18/19 114 by JASPAL RAMOS MD Folic Acid/Vitamin B Comp W-C (Pinky-Shreya Tablet) 0.8 Mg Tablet, 1 TAB PO DAILY for esrd, #30 Prescribed by: PRABHAKAR MOSQUERA on 12/10/18 1041 Last Action: Continued on 08/18/19 1149 by JASPAL RAMOS MD Hydralazine Hcl (Hydralazine Hcl) 25 Mg Tablet, 25 MG PO TID for htn, #10 Prescribed by: PRABHAKAR MOSQEURA on 01/29/19 1113 Last Action: Continued on 08/18/191148 by JASPAL RAMOS MD Insulin Lispro (Humalog) 100 Unit/1 Ml Insuln.pen, 0 UNITS SQ TIDWMEALS for glucose for 28 Days, #3 Prescribed by: SANGEETHA MUELLER MD on 12/26/181246 Last Action: Continued on 08/18/191148 by JASPAL RAMOS MD Lactobacillus Rhamnosus Gg (Culturelle) 1 Each Cap.sprink, 1 CAP PO BID for joy pplement for 30 Days, #60 Prescribed by: SANGEETHA MUELLER MD on 12/26/181246 Last Action: Continued on 08/18/191148 by JASPAL RAMOS MD Latanoprost (Latanoprost) 2.5 Ml Drops, 1 DROP EACHEYE HS, (Reported) Entered as Reported by: ATTILA HAMMOND on 09/24/17 1649 Last Action: Continued on 08/18/191148 by JASPAL RAMOS MD Levothyroxine Sodium (Levothyroxine Sodium) 50 Mcg Tablet, 1 TAB PO DAILY for thyroid, #30 Ref 5 (Reported) Entered as Reported by: VIKI PANG on 03/22/18 1727 Last Action: Continued on 08/18/19 114 by JASPAL RAMOS MD Lipase/Protease/Amylase (Creon Dr 6,000 Units Capsule) 1 Each Capsule.dr, 1 TAB PO TID for digestion, (Reported) Entered as Reported by: CAROL CHAN on 04/23/18 1236 Last Action: Converted on 08/18/19 114 by JASPAL RAMOS MD Lisinopril (Lisinopril) 20 Mg Tablet, 20 MG PO DAILY for FOR HYPERTENSION, Ref 0 (Reported) Entered as Reported by: LAUREN REAVES on 05/27/18 0749 Last Action: Continued on 08/18/191148 by JASPAL RAMOS MD Ranitidine Hcl (Zantac) 300 Mg Tablet, 1 TAB PO QHS for reflux, #90 Ref 3 Prescribed by: DANIELA ALMAZAN D.O. on 08/29/186 Last Action: Converted on 08/18/19 114 by JASPAL RAMOS MD Sertraline Hcl (Zoloft) 50 Mg Tablet, 50 MG PO DAILY for ANTI-DEPRESSANT, Ref 0 (Reported) Entered as Reported by: LAUREN REAVES on 05/27/18 0787 Last Action: Continued on 08/18/19 114 by JASPAL RAMOS MD [Pantoprazole] 40 MG TABLET.DR, 40 MG PO DAILYAC for GERD for 30 Days, #30 Ref 2 Prescribed by: FELI SHAH MD on 03/07/18 1359 Last Action: Converted on 08/18/19 114 by JASPAL RAMOS MD Scheduled PRN Acetaminophen (Tylenol) 325 Mg Capsule, 650 MG PO Q6-8HRS PRN for PAIN, #20 Prescribed by: KIMBERLY DONOHUE MD on 11/14/18 2112 Last Action: Converted on 08/18/191148 by JASPAL RAMOS MD Albuterol Sulfate (Proair Hfa) 8.5 Gm Hfa.aer.ad, 2 PUFF INH BID PRN for SHORTNESS OF BREATH, (Reported) Entered as Reported by: VIKI PANG on 03/22/18 1727 Last Action: Continued on 08/18/191148 by JASPAL RAMOS MD Guaifenesin/Dextromethorphan (Guaifenesin Dm Syrup) 5 Ml Syrup, 10 ML PO PRN Q6HRS PRN for COUGH for 10 Days, #120 Prescribed by: SANGEETHA MUELLER MD on 02/12/19 1404 Last Action: Continued on 08/18/19 114 by JASPAL RAMOS MD Hydrocodone Bit/Acetaminophen (Hydrocodone-Apap 5-325 ) 1 Tab Tablet, 1 TAB PO PRN Q6HRS PRN for PAIN for 4 Days, #12 Ref 0 Prescribed by: FELI SHAH MD on 08/19/19 1523 Ondansetron (Ondansetron Odt) 4 Mg Tab.rapdis, 4 MG PO PRN Q6HRS PRN for NAUSEA/VOMITING 1ST CHOICE for 28 Days, #30 Prescribed by: SANGEETHA MUELLER MD on 12/26/18 1247 Last Action: Continued on 08/18/19 1149 by JASPAL RAMOS MD Prochlorperazine Maleate (Compazine) 5 Mg Tablet, 5 MG PO PRN TID PRN for NAUSEA for 10 Days, #30 Prescribed by: FELI SHAH MD on 08/26/18 1158 Last Action: Continued on 08/18/19 1149 by MD ALYSSA BREWSTER,FELI Moncada MD August 19, 2019 15:29
[2019-08-19 17:00] VITALS: BP 194/64
--- NOTE | 2019-08-19 17:12 | NUR ---
D/C info/Home Health: Per pt she has home health, but unsure of name of company. Spoke with pt's daughter, she stated it was through [facility]. While in the room with pt trying to gather info, she received a call from MAGALY Ace w/ [facility] . Called and spoke with Malka [phone], she stated the pt has been on their service with RN, PT, and OT services. Per Malka, pt was just seen at [facility] 08/15/2019 for abd pain, they prescribed her Reglan 5 mg QID and sent pt back home. Spoke with pt's daughter, Kimberli, she verified she will be home this evening when pt arrives home. Spoke with xavi Zambrano control supervisor, she will set up for pt to go home EMS. SW will need to send resumption of care order to [facility]. Addendum: 08/19/19 at 1808 by CARLENE THAO RN RN Pt is now refusing to go home after everything (transport, HH, etc) has been set up. Pt's daughter is now saying is not able/willing to go to pt's house to let her in, pt states she does not have keys in her purse at bedside. Notified Dr. Talley.
--- NOTE | 2019-08-19 18:21 | NUR ---
Pt refused medication. Encouraged pt to take medication as her blood pressure is high, her response was "I don't care, I can have a damn stroke". Pt refused medication. Non-administered medication.
--- NOTE | 2019-08-19 18:23 | NUR ---
D/C update: went to pt's room to admin meds, she stated that her daughter will now be at her house to let her in. Let pt know that transportation has been cancelled and HH was notified that the pt will not be d/c until tomorrow. Pt was upset. Let her know there was no way to verify that she has a way to get into her house. Will plan to complete d/c tomorrow.
--- NOTE | 2019-08-19 19:23 | NUR ---
D/C: Pt called the nurses' station stating her daughter was on the way to get her. Discharged pt.
--- NOTE | 2019-08-19 19:26 | NUR ---
Discharge Note: OTTONIEL SMITH [facility] Discharge instructions and discharge home medications reviewed with Patient and a copy given. All questions have been answered and understanding verbalized. The following instructions and handouts were given: patient visit report, medication information, education. Discontinued lines and drains: peripheral IV, tip intact. Patient discharged to home with home health via private vehicle. Patient left unit awake, in stable condition, with all personal belongings.
[2019-08-25] MEDS ORDERED: cloNIDine TTS-2 1 PATCH PATCH TD SCH (09:00)
== END 2019-08-19 19:20 | disposition home health service (06) | DRG 637 ==
LOC: ER 21:20 → 6 SOUTH 08-18 03:21
PROVIDERS: ADMIT Internal Medicine; ATTEND Internal Medicine
PROC: 5A1D70Z Performance of Urinary Filtration, Intermittent, Less than 6 Hours Per Day (ICD-10-PCS; principal; 2019-08-19)
DX: E11.649 Type 2 diabetes mellitus with hypoglycemia without coma (principal); G93.41 Metabolic encephalopathy; I50.33 Acute on chronic diastolic (congestive) heart failure; I13.2 Hypertensive heart and chronic kidney disease with heart failure and with stage 5 chronic kidney disease, or end stage renal disease; E87.5 Hyperkalemia; N18.6 End stage renal disease; F41.9 Anxiety disorder, unspecified; E78.00 Pure hypercholesterolemia, unspecified; E03.9 Hypothyroidism, unspecified; M79.7 Fibromyalgia; K21.9 Gastro-esophageal reflux disease without esophagitis; M19.90 Unspecified osteoarthritis, unspecified site; G47.30 Sleep apnea, unspecified; F31.9 Bipolar disorder, unspecified; E11.42 Type 2 diabetes mellitus with diabetic polyneuropathy; E11.22 Type 2 diabetes mellitus with diabetic chronic kidney disease; D63.8 Anemia in other chronic diseases classified elsewhere; E78.5 Hyperlipidemia, unspecified; G89.4 Chronic pain syndrome; J44.9 Chronic obstructive pulmonary disease, unspecified; I48.91 Unspecified atrial fibrillation; Z99.2 Dependence on renal dialysis; Z91.19 Patient's noncompliance with other medical treatment and regimen; Z91.15 Patient's noncompliance with renal dialysis; Z90.710 Acquired absence of both cervix and uterus; Z90.49 Acquired absence of other specified parts of digestive tract; Z89.512 Acquired absence of left leg below knee; Z89.511 Acquired absence of right leg below knee; Z87.891 Personal history of nicotine dependence; Z82.49 Family history of ischemic heart disease and other diseases of the circulatory system
CPT/HCPCS: 36415; 74176; 80053; 82962; 83690; 83735; 84100; 85025; 96361; 96374; 96375; 96376; 99285; J1815; J2270; J2405; J3010; J3490; J7030; J7042; G0378

== ENCOUNTER 2019-08-28 21:35 | Emergency (ER) | payer MEDICAID ==
[~2019-08-28] VITALS: Ht 157.5 cm; Wt 54.5 kg
[2019-08-28 22:06] LABS: BASO # 0.1 x10^3/uL (0.0-0.2); BASO % 2 % (0-3); EOS % 0 % (0-3); HEMATOCRIT 31.8 % (36.0-47.0); HEMOGLOBIN 10.9 g/dL (12.0-15.5); LYMPH # 1.2 x10^3/uL (1.0-4.8); LYMPH % 24 % (24-48); MEAN CORPUSCULAR HEMOGLOBIN 31 pg (25-35); MEAN CORPUSCULAR HGB CONC 35 g/dL (31-37); MEAN CORPUSCULAR VOLUME 91 fL (79-100); MONO # 0.5 x10^3/uL (0.0-1.1); MONO % 9 % (0-9); NEUT # 3.2 x10^3/uL (1.8-7.7); NEUT % 65 % (31-73); PLATELET COUNT 204 x10^3/uL (140-400); RED BLOOD COUNT 3.49 x10^6/uL (3.50-5.40); RED CELL DISTRIBUTION WIDTH 20.4 % (11.5-14.5)
[2019-08-28 22:11] LABS: CALCIUM 8.7 mg/dL (8.5-10.1); CREATININE 3.5 mg/dL (0.6-1.0); GFR 16.3; POTASSIUM 4.2 mmol/L (3.5-5.1)
[2019-08-28 22:17] LABS: ALBUMIN 3.3 g/dL (3.4-5.0); ALBUMIN/GLOBULIN RATIO 0.9 (1.0-1.7); TOTAL BILIRUBIN 0.5 mg/dL (0.2-1.0); TOTAL PROTEIN 6.8 g/dL (6.4-8.2)
[2019-08-28 22:26] LABS: PLT ESTIMATE ADEQUATE (ADEQUATE)
[2019-08-28 22:27] LABS: ANISOCYTOSIS MOD
--- NOTE | 2019-08-28 22:46 | PHYS DOC ---
Past Medical History Past Medical History: A-Fib, Anemia, Anxiety, Arthritis, Asthma, Bronchitis, CHF, COPD, Depression, Diabetes-Type II, GERD, High Cholesterol, Hypertension, Hypothyroid, Renal Disease Additional Past Medical Histor: neuropathy, cataracts,CHRONIC PAIN,ESRD,PNEUMONIA,SLEEP APNEA Past Surgical History: Appendectomy, Cholecystectomy, Hysterectomy, Other Additional Past Surgical Histo: bilateral bka, shunt, hysterectomy Smoking Status: Current Every Day Smoker Alcohol Use: None Drug Use: None General Adult EDM: Chief Complaint: FLANK PAIN HPI: HPI: Patient is a 59 year old female who presents with complaint of bilateral flank pain after having dialysis earlier today. Patient denies any chest pain or shortness of breath. Patient rates pain at a 20 out of 10. She denies any vomiting or diarrhea. [] Review of Systems: Review of Systems: Constitutional: Denies fever or chills. [] Respiratory: Denies cough or shortness of breath. [] Cardiovascular: Denies chest pain or edema. [] GI: Denies abdominal pain, nausea, vomiting or diarrhea. [] Musculoskeletal: Complains of bilateral flank pain. [] Integument: Denies rash. [] Neurologic: Denies headache, focal weakness or sensory changes. [] Heart Score: Risk Factors: Risk Factors: DM, Current or recent (<one month) smoker, HTN, HLP, family history of CAD, obesity. Risk Scores: Score 0 - 3: 2.5% MACE over next 6 weeks - Discharge Home Score 4 - 6: 20.3% MACE over next 6 weeks - Admit for Clinical Observation Score 7 - 10: 72.7% MACE over next 6 weeks - Early Invasive Strategies Current Medications: Current Medications Medications (Trade) Dose Ordered Sig/[facility] Start Time Stop Time Status Last Admin Dose Admin Acetaminophen (Tylenol) 1,000 mg 1X ONCE 08/28/19 23:00 08/28/19 23:01 Allergies: Allergies: Allergies Coded Allergies Type Severity Reaction Last Updated Verified No Known Drug Allergies 02/27/19 No Physical Exam: PE: Constitutional: Well developed, well nourished, no acute distress, report of patient level of pain is far out of proportion to physical findings. [] HENT: Normocephalic, atraumatic, bilateral external ears normal, oropharynx moist, no oral exudates, nose normal. [] Eyes: PERRLA, EOMI, conjunctiva normal, no discharge. [] Neck: Normal range of motion, no tenderness, supple, no stridor. [] Cardiovascular: Regular rate and rhythm [] Lungs & Thorax: Bilateral breath sounds clear to auscultation [] Abdomen: Bowel sounds normal, soft, no tenderness. [] Skin: Warm, dry, no erythema, no rash. [] Extremities: Patient has bilateral BKA's. [] Neurologic: Alert and oriented X 3, no focal deficits noted. [] Current Patient Data: Labs: Laboratory Tests Test 08/28/19 21:50 White Blood Count 5.0 x10^3/uL (4.0-11.0) Red Blood Count 3.49 x10^6/uL (3.50-5.40) L Hemoglobin 10.9 g/dL (12.0-15.5) L Hematocrit 31.8 % (36.0-47.0) L Mean Corpuscular Volume 91 fL (79-100) Mean Corpuscular Hemoglobin 31 pg (25-35) Mean Corpuscular Hemoglobin Concent 35 g/dL (31-37) Red Cell Distribution Width 20.4 % (11.5-14.5) H Platelet Count 204 x10^3/uL (140-400) Neutrophils (%) (Auto) 65 % (31-73) Lymphocytes (%) (Auto) 24 % (24-48) Monocytes (%) (Auto) 9 % (0-9) Eosinophils (%) (Auto) 0 % (0-3) Basophils (%) (Auto) 2 % (0-3) Neutrophils # (Auto) 3.2 x10^3/uL (1.8-7.7) Lymphocytes # (Auto) 1.2 x10^3/uL (1.0-4.8) Monocytes # (Auto) 0.5 x10^3/uL (0.0-1.1) Eosinophils # (Auto) 0.0 x10^3/uL (0.0-0.7) Basophils # (Auto) 0.1 x10^3/uL (0.0-0.2) Platelet Estimate Adequate (ADEQUATE) Anisocytosis Mod Sodium Level 140 mmol/L (136-145) Potassium Level 4.2 mmol/L (3.5-5.1) Chloride Level 101 mmol/L (98-107) Carbon Dioxide Level 28 mmol/L (21-32) Anion Gap 11 (6-14) Blood Urea Nitrogen 23 mg/dL (7-20) H Creatinine 3.5 mg/dL (0.6-1.0) H Estimated GFR (Cockcroft-Gault) 16.3 BUN/Creatinine Ratio 7 (6-20) Glucose Level 177 mg/dL (70-99) H Calcium Level 8.7 mg/dL (8.5-10.1) Total Bilirubin 0.5 mg/dL (0.2-1.0) Aspartate Amino Transferase (AST) 90 U/L (15-37) H Alanine Aminotransferase (ALT) 121 U/L (14-59) H Alkaline Phosphatase 161 U/L (46-116) H Total Protein 6.8 g/dL (6.4-8.2) Albumin 3.3 g/dL (3.4-5.0) L Albumin/Globulin Ratio 0.9 (1.0-1.7) L Laboratory Tests 08/28/19 21:50 Laboratory Tests 08/28/19 21:50 Vital Signs: Vital Signs Date Time Temp Pulse Resp B/P (MAP) Pulse Ox O2 Delivery O2 Flow Rate FiO2 08/28/19 21:35 98.0 75 22 174/79 (110) 95 Room Air 98.0 EKG: EKG: [] Radiology/Procedures: Radiology/Procedures: [] Course & Med Decision Making: Course & Med Decision Making Pertinent Labs and Imaging studies reviewed. (See chart for details) [] Dragon Disclaimer: Melisa Disclaimer: This electronic medical record was generated, in whole or in part, using a voice recognition dictation system. Departure Departure Impression: Primary Impression: Musculoskeletal pain Additional Impression: Drug-seeking behavior Disposition: HOME, SELF-CARE Condition: STABLE Referrals: NO PCP (PCP) Patient Instructions: Musculoskeletal Pain GIULIANO FAIRCHILD Jr. DO Aug 28, 2019 22:46
[2019-08-28 22:49] VITALS: BP 140/87
[2019-08-28] MEDS ORDERED: ACETAMINOPHEN 500 MG TABLET PO ONE (23:00)
== END 2019-08-28 23:16 | disposition home or self-care (01) ==
LOC: ER 21:35
DX: M79.18 Myalgia, other site (principal); R10.9 Unspecified abdominal pain; Z76.5 Malingerer [conscious simulation]; I13.2 Hypertensive heart and chronic kidney disease with heart failure and with stage 5 chronic kidney disease, or end stage renal disease; E11.22 Type 2 diabetes mellitus with diabetic chronic kidney disease; N18.6 End stage renal disease; I50.9 Heart failure, unspecified; Z99.2 Dependence on renal dialysis; I48.91 Unspecified atrial fibrillation; K21.9 Gastro-esophageal reflux disease without esophagitis; E78.00 Pure hypercholesterolemia, unspecified; E03.9 Hypothyroidism, unspecified; J44.9 Chronic obstructive pulmonary disease, unspecified; F17.200 Nicotine dependence, unspecified, uncomplicated; E11.40 Type 2 diabetes mellitus with diabetic neuropathy, unspecified; G89.29 Other chronic pain; Z90.89 Acquired absence of other organs; Z90.49 Acquired absence of other specified parts of digestive tract; Z90.710 Acquired absence of both cervix and uterus
CPT/HCPCS: 36415; 80053; 85025; 99283

== ENCOUNTER 2019-09-22 20:30 | Inpatient (IN) | payer MEDICAID ==
[~2019-09-22] VITALS: Ht 121.9 cm; Wt 46.4 kg
[2019-09-22] MEDS ORDERED: MORPHINE SULFATE 2 MG/ML VIAL. IV PRN (21:45)
--- NOTE | 2019-09-22 22:01 | RAD ---
INDICATION: Reason: finger necrosis middle finger / Spl. Instructions: / History: COMPARISON: None. IMPRESSION: Right hand: 3 views obtained. Severe calcific atherosclerosis. There is degenerative changes of the wrist and hand. Soft tissue defect is seen in the third digit overlying the distal phalanx with air in the soft tissues. Could be secondary to an ulcer within the region. Soft tissue infection could have this appearance. This also extends towards the level of the cortex of the distal phalanx and therefore the patient would be at high risk for osteomyelitis. Evaluation for osteomyelitis is needed bone scan or MRI can assess. Electronically signed by: Angel Judge MD (09/22/2019 9:58 PM) [id number]
--- NOTE | 2019-09-22 23:10 | PHYS DOC ---
Past Medical History Past Medical History: A-Fib, Anemia, Anxiety, Arthritis, Asthma, Bronchitis, CHF, COPD, Depression, Diabetes-Type II, GERD, High Cholesterol, Hypertension, Hypothyroid, Renal Disease Additional Past Medical Histor: neuropathy, cataracts,CHRONIC PAIN,ESRD,PNEUMONIA,SLEEP APNEA Past Surgical History: Appendectomy, Cholecystectomy, Hysterectomy, Other Additional Past Surgical Histo: bilateral bka, shunt, hysterectomy Smoking Status: Current Every Day Smoker Alcohol Use: None Drug Use: None General Adult EDM: Chief Complaint: FINGER INJURY HPI: HPI: Patient is a 59 year old presents with the chief complaint pain in right distal middle finger. States painful for the last several days. On exam finger tip is necrotic. Review of Systems: Review of Systems: Constitutional: Denies fever or chills. [] Eyes: Denies change in visual acuity. [] HENT: Denies nasal congestion or sore throat. [] Respiratory: Denies cough or shortness of breath. [] Cardiovascular: Denies chest pain or edema. [] GI: Denies abdominal pain, nausea, vomiting, bloody stools or diarrhea. [] : Denies dysuria. [] Musculoskeletal: Denies back pain positive finger pain Integument: Denies rash. [] Neurologic: Denies headache, focal weakness or sensory changes. [] Endocrine: Denies polyuria or polydipsia. [] Lymphatic: Denies swollen glands. [] Psychiatric: Denies depression or anxiety. [] Heart Score: Risk Factors: Risk Factors: DM, Current or recent (<one month) smoker, HTN, HLP, family history of CAD, obesity. Risk Scores: Score 0 - 3: 2.5% MACE over next 6 weeks - Discharge Home Score 4 - 6: 20.3% MACE over next 6 weeks - Admit for Clinical Observation Score 7 - 10: 72.7% MACE over next 6 weeks - Early Invasive Strategies Current Medications: Current Medications Medications (Trade) Dose Ordered Sig/[facility] Start Time Stop Time Status Last Admin Dose Admin Morphine Sulfate (Morphine Sulfate) 2 mg PRN Q2HR PRN 09/22/19 21:45 09/23/19 21:44 Allergies: Allergies: Allergies Coded Allergies Type Severity Reaction Last Updated Verified No Known Drug Allergies 02/27/19 No Physical Exam: PE: Constitutional: Well developed, well nourished, no acute distress, non-toxic appearance. [] HENT: Normocephalic, atraumatic, bilateral external ears normal, oropharynx moist, no oral exudates, nose normal. [] Eyes: PERRLA, EOMI, conjunctiva normal, no discharge. [] Neck: Normal range of motion, no tenderness, supple, no stridor. [] Cardiovascular:Heart rate regular rhythm, no murmur [] Lungs & Thorax: Bilateral breath sounds clear to auscultation [] Abdomen: Bowel sounds normal, soft, no tenderness, no masses, no pulsatile ma sses. [] Skin: Warm, dry, no erythema, no rash. [3rd distal finger necrotic] Back: No tenderness, no CVA tenderness. [] Extremities: No tenderness, no cyanosis, no clubbing, ROM intact, no edema. [] Neurologic: Alert and oriented X 3, normal motor function, normal sensory function, no focal deficits noted. [] Psychologic: Affect normal, judgement normal, mood normal. [] Current Patient Data: Vital Signs: Vital Signs Date Time Temp Pulse Resp B/P (MAP) Pulse Ox O2 Delivery O2 Flow Rate FiO2 09/22/19 20:30 98.0 73 16 139/83 (101) 94 Room Air 98.0 EKG: EKG: [] Radiology/Procedures: Radiology/Procedures: [] Course & Med Decision Making: Course & Med Decision Making Pertinent Labs and Imaging studies reviewed. (See chart for details) []Patient admitted to hospitalist. Treated with vancomycin. Labs pending at admission. Melisa Disclaimer: Melisa Disclaimer: This electronic medical record was generated, in whole or in part, using a voice recognition dictation system. Departure Departure Impression: Primary Impression: Osteomyelitis Additional Impression: Osteomyelitis of finger Disposition: ADMITTED INPATIENT Admitting Physician: SOFI Condition: STABLE Referrals: NO PCP (PCP) Justicifation of Admission Dx: Justifications for Admission: Justification of Admission Dx: Yes Comments: Osteomyelitis with the need for surgery and iv antibiotics CAROLANN VICENTE DO Sep 22, 2019 23:10
[2019-09-22] MEDS ORDERED: VANCOMYCIN 1.25 GM in IV NORMAL SALINE 250ML 250 ML IV ONE (23:15)
[2019-09-22 23:20] LABS: BASO # 0.1 x10^3/uL (0.0-0.2); BASO % 1 % (0-3); EOS % 1 % (0-3); HEMATOCRIT 26.5 % (36.0-47.0); LYMPH # 0.9 x10^3/uL (1.0-4.8); LYMPH % 13 % (24-48); MEAN CORPUSCULAR HEMOGLOBIN 31 pg (25-35); MEAN CORPUSCULAR HGB CONC 34 g/dL (31-37); MEAN CORPUSCULAR VOLUME 92 fL (79-100); MONO # 0.6 x10^3/uL (0.0-1.1); MONO % 8 % (0-9); NEUT # 5.7 x10^3/uL (1.8-7.7); NEUT % 78 % (31-73); PLATELET COUNT 232 x10^3/uL (140-400); RED BLOOD COUNT 2.89 x10^6/uL (3.50-5.40); RED CELL DISTRIBUTION WIDTH 18.6 % (11.5-14.5); WHITE BLOOD COUNT 7.4 x10^3/uL (4.0-11.0)
[2019-09-22 23:40] LABS: ALBUMIN 3.1 g/dL (3.4-5.0); CALCIUM 8.1 mg/dL (8.5-10.1); GFR 6.3; TOTAL BILIRUBIN 0.5 mg/dL (0.2-1.0); TOTAL PROTEIN 6.3 g/dL (6.4-8.2)
[2019-09-22 23:43] LABS: POTASSIUM 7.4 mmol/L (3.5-5.1)
[2019-09-23 00:15] LABS: ALBUMIN/GLOBULIN RATIO 0.8 (1.0-1.7); CALCIUM 8.2 mg/dL (8.5-10.1); CREATININE 8.1 mg/dL (0.6-1.0); GFR 6.2; TOTAL BILIRUBIN 0.5 mg/dL (0.2-1.0); TOTAL PROTEIN 6.7 g/dL (6.4-8.2)
[2019-09-23] MEDS ORDERED: ONDANSETRON PF 4 MG/2 ML VIAL. IVP ONE (00:15)
[2019-09-23 00:16] LABS: POTASSIUM 7.3 mmol/L (3.5-5.1)
[2019-09-23] MEDS ORDERED: CALCIUM GLUCONATE 1,000 MG/10 ML VIAL. IVP ONE (00:30)
[2019-09-23] MEDS: SODIUM POLYSTYRENE SULFON/SORB 15 GM/60 ML ORAL.SUSP. PO ONE ×2 (00:30→01:02)
[2019-09-23] MEDS ORDERED: DEXTROSE 50% 25 GM / 50ML DISP.SYRIN. IV ONE (00:30)
[2019-09-23] MEDS ORDERED: INSULIN REGULAR 100 UNIT/ML 3ML VIAL. IV ONE (00:30)
[2019-09-23 03:30] VITALS: BP 127/63
--- NOTE | 2019-09-23 04:05 | NUR ---
pt not given kayexalate in ER due to N/V She was given Morphine in ER and arrived to floor very drowsy and refusing to take anything by mouth at this time
[2019-09-23] MEDS ORDERED: BUPR300T92 PO (04:20)
[2019-09-23 07:00] VITALS: BP 144/60
[2019-09-23] MEDS ORDERED: IV NORMAL SALINE 1000ML BAG 1,000 ML IV PRN ×2 (09:38)
[2019-09-23] MEDS ORDERED: DIALYSIS PATIENT. MC PRN ×2 (09:45)
--- NOTE | 2019-09-23 11:34 | PDOC1 ---
History and Physical Date of Admission Date of Admission DATE: 09/23/19 TIME: 11:34 Identification/Chief Complaint Chief Complaint Necrotic finger Source Source: Patient History of Present Illness History of Present Illness Ms. Salazar, is a 57 year old F w/ PMHx ESRD on HD M/W/F, hypertension, diabetes mellitus, bilateral below knee amputation, chronic pain and neuropathy who presents via EMS because of confusion and pain in right distal middle finger. States painful for the last several days. On exam finger tip is necrotic, with inflammatory changes on XR. Past Medical History Cardiovascular: CHF, HTN, Hyperlipidemia, Other Pulmonary: Asthma CENTRAL NERVOUS SYSTEM: Periperal neuropathy GI: GERD Heme/Onc: Anemia NOS Hepatobiliary: No pertinent hx Psych: Bipolar Musculoskeletal: Other Rheumatologic: Fibromyalgia Infectious disease: No pertinent hx Renal/: Chronic renal failure Endocrine: Diabetes, Hypothyroidism, Hyperparathyroidism Past Surgical History Past Surgical History: Hysterectomy, Other Family History Family History: Hypertension, Other Social History Smoke: <1 pack per day ALCOHOL: none Drugs: None Current Problem List Problem List Problems Medical Problems: (1) Osteomyelitis Status: Acute (2) Osteomyelitis of finger Status: Acute Current Medications Current Medications Current Medications Morphine Sulfate (Morphine Sulfate) 2 mg PRN Q2HR PRN IV PAIN Last administered on 09/23/19at 00:02; Start 09/22/19 at 21:45; Stop 09/23/19 at 21:44 Vancomycin HCl 1.25 gm/Sodium Chloride 250 ml @ 166.667 mls/hr 1X ONCE IV Last administered on 09/23/19at 00:02; Start 09/22/19 at 23:15; Stop 09/23/19 at 00:44; Status DC Ondansetron HCl (Zofran) 4 mg 1X ONCE IVP Last administered on 09/23/19at 00:57; Start 09/23/19 at 00:15; Stop 09/23/19 at 00:16; Status DC Calcium Gluconate (Calcium Gluconate) 1,000 mg 1X ONCE IVP Last administered on 09/23/19at 01:00; Start 09/23/19 at 00:30; Stop 09/23/19 at 00:31; Status DC Dextrose (Dextrose 50%-Water Syringe) 25 gm 1X ONCE IV Last administered on 09/23/19at 00:59; Start 09/23/19 at 00:30; Stop 09/23/19 at 00:31; Status DC Insulin Human Regular (HumuLIN R VIAL) 10 unit 1X ONCE IV Last administered on 09/23/19at 00:59; Start 09/23/19 at 00:30; Stop 09/23/19 at 00:31; Status DC Sodium Polystyrene Sulfonate (Kayexalate) 30 gm 1X ONCE PO ; Start 09/23/19 at 00:30; Stop 09/23/19 at 00:31; Status DC Sodium Chloride 1,000 ml @ 1,000 mls/hr Q1H PRN IV hypotension; Start 09/23/19 at 09:38; Stop 09/23/19 at 15:37 Sodium Chloride 1,000 ml @ 400 mls/hr Q2H30M PRN IV PATENCY; Start 09/23/19 at 09:38; Stop 09/23/19 at 21:37 Info (PHARMACY MONITORING -- do not chart) 1 each PRN DAILY PRN MC SEE RAMÓN TS; Start 09/23/19 at 09:45; Status UNV Info (PHARMACY MONITORING -- do not chart) 1 each PRN DAILY PRN MC SEE COMMENTS; Start 09/23/19 at 09:45 Active Scripts Active Hydrocodone-Apap 5-325 (Hydrocodone Bit/Acetaminophen) 1 Tab Tablet 1 Tab PO PRN Q6HRS PRN 4 Days Guaifenesin Dm Syrup (Guaifenesin/Dextromethorphan) 5 Ml Syrup 10 Ml PO PRN Q6H RS PRN 10 Days Carvedilol (Carvedilol) 6.25 Mg Tablet 12.5 Mg PO BIDWMEALS Hydralazine Hcl 25 Mg Tablet 25 Mg PO TID Humalog (Insulin Lispro) 100 Unit/1 Ml Insuln.pen 0 Units SQ TIDWMEALS 28 Days Culturelle (Lactobacillus Rhamnosus Gg) 1 Each Cap.sprink 1 Cap PO BID 30 Days Ondansetron Odt (Ondansetron) 4 Mg Tab.rapdis 4 Mg PO PRN Q6HRS PRN 28 Days Clopidogrel (Clopidogrel Bisulfate) 75 Mg Tablet 75 Mg PO DAILYWBKFT 30 Days Pinky-Shreya Tablet (Folic Acid/Vitamin B Comp W-C) 0.8 Mg Tablet 1 Tab PO DAILY Tylenol (Acetaminophen) 325 Mg Capsule 650 Mg PO Q6-8HRS PRN Zantac (Ranitidine Hcl) 300 Mg Tablet 1 Tab PO QHS Compazine (Prochlorperazine Maleate) 5 Mg Tablet 5 Mg PO PRN TID PRN 10 Days [Pantoprazole] 40 MG Tablet.dr 40 Mg PO DAILYAC 30 Days Reported Bupropion Xl (Bupropion Hcl) 300 Mg Tab.er.24h 1 Tab PO DAILYWBKFT Zoloft (Sertraline Hcl) 50 Mg Tablet 50 Mg PO DAILY Lisinopril 20 Mg Tablet 20 Mg PO DAILY Creon 6,000 Units Capsule (Lipase/Protease/Amylase) 1 Each Capsule.dr 1 Tab PO TID Proair Hfa (Albuterol Sulfate) 8.5 Gm Hfa.aer.ad 2 Puff INH BID PRN Levothyroxine Sodium 50 Mcg Tablet 1 Tab PO DAILY Clonidine Tts-2 (Clonidine) 1 Each Patch.tdwk 1 Patch TD WEEKLY Amlodipine Besylate 5 Mg Tablet 10 Mg PO DAILY Atorvastatin Calcium 40 Mg Tablet 40 Mg PO HS Latanoprost 2.5 Ml Drops 1 Drop EACHEYE HS Allergies Allergies: Coded Allergies: No Known Drug Allergies (Unverified , 02/27/19) ROS Review of System Unable to obtain due to confusionio Physical Exam General: Alert, moderate distress HEENT: Atraumatic, PERRLA, EOMI, Mucous membr. moist/pink Lungs: Clear to auscultation, Normal air movement Heart: S1S2, RRR, no thrills, no rubs Abdomen: Normal bowel sounds, Soft, No tenderness, No hepatosplenomegaly, No masses Rectal Exam: not examined Extremities: No tenderness/swelling Skin: Other (BIlateral BKA, right middle finger necrotic, dry) Neuro: Reflexes 2+ Psych/Mental Status: Other (confused) Vitals Vitals Vital Signs Date Time Temp Pulse Resp B/P (MAP) Pulse Ox O2 Delivery O2 Flow Rate FiO2 09/23/19 08:00 Room Air 09/23/19 07:00 98.4 78 16 144/60 (88) 92 98.4 Labs Labs Laboratory Tests Test 09/22/19 23:09 09/22/19 23:50 White Blood Count 7.4 x10^3/uL (4.0-11.0) Red Blood Count 2.89 x10^6/uL (3.50-5.40) Hemoglobin 9.0 g/dL (12.0-15.5) Hematocrit 26.5 % (36.0-47.0) Mean Corpuscular Volume 92 fL (79-100) Mean Corpuscular Hemoglobin 31 pg (25-35) Mean Corpuscular Hemoglobin Concent 34 g/dL (31-37) Red Cell Distribution Width 18.6 % (11.5-14.5) Platelet Count 232 x10^3/uL (140-400) Neutrophils (%) (Auto) 78 % (31-73) Lymphocytes (%) (Auto) 13 % (24-48) Monocytes (%) (Auto) 8 % (0-9) Eosinophils (%) (Auto) 1 % (0-3) Basophils (%) (Auto) 1 % (0-3) Neutrophils # (Auto) 5.7 x10^3/uL (1.8-7.7) Lymphocytes # (Auto) 0.9 x10^3/uL (1.0-4.8) Monocytes # (Auto) 0.6 x10^3/uL (0.0-1.1) Eosinophils # (Auto) 0.0 x10^3/uL (0.0-0.7) Basophils # (Auto) 0.1 x10^3/uL (0.0-0.2) Sodium Level 137 mmol/L (136-145) 137 mmol/L (136-145) Potassium Level 7.4 mmol/L (3.5-5.1) 7.3 mmol/L (3.5-5.1) Chloride Level 101 mmol/L (98-107) 101 mmol/L (98-107) Carbon Dioxide Level 20 mmol/L (21-32) 23 mmol/L (21-32) Anion Gap 16 (6-14) 13 (6-14) Blood Urea Nitrogen 92 mg/dL (7-20) 92 mg/dL (7-20) Creatinine 8.0 mg/dL (0.6-1.0) 8.1 mg/dL (0.6-1.0) Estimated GFR (Cockcroft-Gault) 6.3 6.2 BUN/Creatinine Ratio 12 (6-20) 11 (6-20) Glucose Level 113 mg/dL (70-99) 111 mg/dL (70-99) Calcium Level 8.1 mg/dL (8.5-10.1) 8.2 mg/dL (8.5-10.1) Total Bilirubin 0.5 mg/dL (0.2-1.0) 0.5 mg/dL (0.2-1.0) Aspartate Amino Transf (AST/SGOT) 84 U/L (15-37) 76 U/L (15-37) Alanine Aminotransferase (ALT/SGPT) 38 U/L (14-59) 30 U/L (14-59) Alkaline Phosphatase 125 U/L (46-116) 119 U/L (46-116) Total Protein 6.3 g/dL (6.4-8.2) 6.7 g/dL (6.4-8.2) Albumin 3.1 g/dL (3.4-5.0) 3.0 g/dL (3.4-5.0) Albumin/Globulin Ratio 1.0 (1.0-1.7) 0.8 (1.0-1.7) Laboratory Tests Test 09/22/19 23:09 09/22/19 23:50 White Blood Count 7.4 x10^3/uL (4.0-11.0) Red Blood Count 2.89 x10^6/uL (3.50-5.40) Hemoglobin 9.0 g/dL (12.0-15.5) Hematocrit 26.5 % (36.0-47.0) Mean Corpuscular Volume 92 fL (79-100) Mean Corpuscular Hemoglobin 31 pg (25-35) Mean Corpuscular Hemoglobin Concent 34 g/dL (31-37) Red Cell Distribution Width 18.6 % (11.5-14.5) Platelet Count 232 x10^3/uL (140-400) Neutrophils (%) (Auto) 78 % (31-73) Lymphocytes (%) (Auto) 13 % (24-48) Monocytes (%) (Auto) 8 % (0-9) Eosinophils (%) (Auto) 1 % (0-3) Basophils (%) (Auto) 1 % (0-3) Neutrophils # (Auto) 5.7 x10^3/uL (1.8-7.7) Lymphocytes # (Auto) 0.9 x10^3/uL (1.0-4.8) Monocytes # (Auto) 0.6 x10^3/uL (0.0-1.1) Eosinophils # (Auto) 0.0 x10^3/uL (0.0-0.7) Basophils # (Auto) 0.1 x10^3/uL (0.0-0.2) Sodium Level 137 mmol/L (136-145) 137 mmol/L (136-145) Potassium Level 7.4 mmol/L (3.5-5.1) 7.3 mmol/L (3.5-5.1) Chloride Level 101 mmol/L (98-107) 101 mmol/L (98-107) Carbon Dioxide Level 20 mmol/L (21-32) 23 mmol/L (21-32) Anion Gap 16 (6-14) 13 (6-14) Blood Urea Nitrogen 92 mg/dL (7-20) 92 mg/dL (7-20) Creatinine 8.0 mg/dL (0.6-1.0) 8.1 mg/dL (0.6-1.0) Estimated GFR (Cockcroft-Gault) 6.3 6.2 BUN/Creatinine Ratio 12 (6-20) 11 (6-20) Glucose Level 113 mg/dL (70-99) 111 mg/dL (70-99) Calcium Level 8.1 mg/dL (8.5-10.1) 8.2 mg/dL (8.5-10.1) Total Bilirubin 0.5 mg/dL (0.2-1.0) 0.5 mg/dL (0.2-1.0) Aspartate Amino Transf (AST/SGOT) 84 U/L (15-37) 76 U/L (15-37) Alanine Aminotransferase (ALT/SGPT) 38 U/L (14-59) 30 U/L (14-59) Alkaline Phosphatase 125 U/L (46-116) 119 U/L (46-116) Total Protein 6.3 g/dL (6.4-8.2) 6.7 g/dL (6.4-8.2) Albumin 3.1 g/dL (3.4-5.0) 3.0 g/dL (3.4-5.0) Albumin/Globulin Ratio 1.0 (1.0-1.7) 0.8 (1.0-1.7) Images Images Right Hand XR: Right hand: 3 views obtained. Severe calcific atherosclerosis. There is degenerative changes of the wrist and hand. Soft tissue defect is seen in the third digit overlying the distal phalanx with air in the soft tissues.Could be secondary to an ulcer within the region. Soft tissue infection could have this appearance. This also extends towards the level of the cortex of the distal phalanx and therefore the patient would be at high risk for osteomyelitis. Evaluation for osteomyelitis is needed bone scan or MRI can assess. VTE Prophylaxis Ordered VTE Prophylaxis Devices: No VTE Pharmacological Prophylaxi: Yes Assessment/Plan Assessment/Plan A/P: Acute encephalopathy secondary to metabolic etiology with hypoglycemia Right middle finger pain - dry gangrene, likely will auto-amputate, no sign of active infection. Will consult vascular surgery. Hyperkalemia - K 7.4, will give kayexelate ESRD - MWF [facility] patient. Fistula functioning again now. She is very intermittently compliant. Acute on chronic diastolic CHF - with elevated BNP and CXR findings concerning, will diurese with UF Accelerated HTN: labile, will restart meds Anasarca Noncompliance: missed dialysis, no transport. Suspect missed meds as well. Hx of severe LE PAD - S/P bilateral BKA. more recent to left leg, incision intact Debility HX NONCOMPLIANCE Anxiety Chronic back pain Chronic anemia Elevated liver function tests Depression sec to med illness History of diabetes mellitus type 2 History of hypothyroidism Chronic pain syndrome History of bilateral BKA FEN - Renal ADA diet PPX - heparin FULL CODE Dispo - inpatient for above Justicifation of Admission Dx: Justifications for Admission: Justification of Admission Dx: Yes FELI SHAH MD Sep 23, 2019 11:34
--- NOTE | 2019-09-23 11:36 | NUR ---
SW following for discharge planning. SW referred for frequent hospitalizations. Reviewed chart and spoke with RN. Pt has outpatient dialysis set up at [facility], ; fax [phone], Monday, Monday, and Monday. SW attempted to meet with pt to discuss discharge planning. Pt refused to answer SW questions. SW will continue following but pt will likely discharge home when stable.
--- NOTE | 2019-09-23 12:06 | EKG ---
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
[2019-09-23] MEDS ORDERED: ALBUTEROL SULFATE 2.5 MG/3 ML NEBU. INH PRN (12:45)
[2019-09-23] MEDS ORDERED: guaiFENesin DM 200MG/20MG 10 ML SYRUP PO PRN (12:45)
[2019-09-23] MEDS ORDERED: PROCHLORPERAZINE 5 MG TABLET. PO PRN (12:45)
[2019-09-23] MEDS ORDERED: ONDANSETRON ODT 4 MG TAB.RAPDIS. PO PRN (12:45)
[2019-09-23] MEDS: CLOPIDOGREL BISULFATE 75 MG TABLET PO SCH ×2 (13:00→15:25)
[2019-09-23] MEDS: amLODIPine BESYLATE 10 MG TABLET PO SCH ×2 (13:00→15:25)
[2019-09-23] MEDS: FOLIC/VIT B COMP W-C (RENAL) TABLET. PO SCH ×2 (13:00→15:25)
[2019-09-23] MEDS: cloNIDine TTS-2 1 PATCH PATCH TD SCH ×3 (13:00→21:00)
[2019-09-23] MEDS: LISINOPRIL 20 MG TABLET PO SCH ×2 (13:00→15:25)
[2019-09-23] MEDS: SERTRALINE 50 MG TABLET. PO SCH ×2 (13:00→15:25)
[2019-09-23] MEDS: hydrALAZINE 25 MG TABLET PO SCH ×3 (14:00→20:38)
--- NOTE | 2019-09-23 14:22 | PDOC2 ---
CONSULT Date of Consult Date of Consult DATE: 09/23/19 TIME: 14:08 Reason for Consult Reason for Consult: ESRD Source Source: Chart review, Patient History of Present Illness Reason for Visit: Patient is a 59 year old AAF, ESRD , severe Non compliance - multiple ER visits and Hospitalizations at [facility] - presents with the chief complaint pain in right distal middle finger. States painful for the last several days.In ER Rt middle finger tip was found to be necrotic. Denies F/C.No N/V/D. No CP or SOB Past Medical History Cardiovascular: CHF, HTN, Hyperlipidemia, Other Pulmonary: Asthma CENTRAL NERVOUS SYSTEM: Periperal neuropathy GI: GERD Heme/Onc: Anemia NOS Hepatobiliary: No pertinent hx Psych: Bipolar Musculoskeletal: Other Rheumatologic: Fibromyalgia Infectious disease: No pertinent hx Renal/: Chronic renal failure Endocrine: Diabetes, Hypothyroidism, Hyperparathyroidism Past Surgical History Past Surgical History: Hysterectomy, Other Family History Family History: Hypertension, Other Social History ALCOHOL: none Drugs: None Lives: Alone Current Problem List Problem List Problems Medical Problems: (1) Osteomyelitis Status: Acute (2) Osteomyelitis of finger Status: Acute Current Medications Current Medications Current Medications Morphine Sulfate (Morphine Sulfate) 2 mg PRN Q2HR PRN IV PAIN Last administered on 09/23/19at 00:02; Start 09/22/19 at 21:45; Stop 09/23/19 at 21:44 Vancomycin HCl 1.25 gm/Sodium Chloride 250 ml @ 166.667 mls/hr 1X ONCE IV Last administered on 09/23/19at 00:02; Start 09/22/19 at 23:15; Stop 09/23/19 at 00:44; Status DC Ondansetron HCl (Zofran) 4 mg 1X ONCE IVP Last administered on 09/23/19at 00:57; Start 09/23/19 at 00:15; Stop 09/23/19 at 00:16; Status DC Calcium Gluconate (Calcium Gluconate) 1,000 mg 1X ONCE IVP Last administered on 09/23/19at 01:00; Start 09/23/19 at 00:30; Stop 09/23/19 at 00:31; Status DC Dextrose (Dextrose 50%-Water Syringe) 25 gm 1X ONCE IV Last administered on 09/23/19at 00:59; Start 09/23/19 at 00:30; Stop 09/23/19 at 00:31; Status DC Insulin Human Regular (HumuLIN R VIAL) 10 unit 1X ONCE IV Last administered on 09/23/19at 00:59; Start 09/23/19 at 00:30; Stop 09/23/19 at 00:31; Status DC Sodium Polystyrene Sulfonate (Kayexalate) 30 gm 1X ONCE PO ; Start 09/23/19 at 00:30; Stop 09/23/19 at 00:31; Status DC Sodium Chloride 1,000 ml @ 1,000 mls/hr Q1H PRN IV hypotension; Start 09/23/19 at 09:38; Stop 09/23/19 at 15:37 Sodium Chloride 1,000 ml @ 400 mls/hr Q2H30M PRN IV PATENCY; Start 09/23/19 at 09:38; Stop 09/23/19 at 21:37 Info (PHARMACY MONITORING -- do not chart) 1 each PRN DAILY PRN MC SEE COMMENTS; Start 09/23/19 at 09:45; Status UNV Info (PHARMACY MONITORING -- do not chart) 1 each PRN DAILY PRN MC SEE COMMENTS; Start 09/23/19 at 09:45 Albuterol Sulfate (Ventolin Neb Soln) 2.5 mg PRN BID PRN INH SHORTNESS OF BREATH; Start 09/23/19 at 12:45 Amlodipine Besylate (Norvasc) 10 mg DAILY PO ; Start 09/23/19 at 13:00 Atorvastatin Calcium (Lipitor) 40 mg HS PO ; Start 09/23/19 at 21:00 Carvedilol (Coreg) 12.5 mg BIDWMEALS PO ; Start 09/23/19 at 17:00 Clonidine HCl (Catapres Tts-2) 1 patch WEEKLY TD ; Start 09/23/19 at 13:00 Clopidogrel Bisulfate (Plavix) 75 mg DAILYWBKFT PO ; Start 09/23/19 at 13:00 Vitamin B Complex/ Vitamin C (Pinky-Shreya) 1 tab DAILY PO ; Start 09/23/19 at 13:00 Guaifenesin (Robitussin Dm) 10 ml PRN Q6HRS PRN PO COUGH; Start 09/23/19 at 12:45 Hydralazine HCl (Apresoline) 25 mg TID PO ; Start 09/23/19 at 14:00 Acetaminophen/ Hydrocodone Bitart (Lortab 5/325) 1 tab PRN Q6HRS PRN PO MODERTE PAIN; Start 09/23/19 at 12:45 Lactobacillus Rhamnosus (Culturelle) 1 cap BID PO ; Start 09/23/19 at 21:00 Latanoprost (Xalatan) 1 drop HS OU ; Start 09/23/19 at 21:00 Levothyroxine Sodium (Synthroid) 50 mcg DAILY06 PO ; Start 09/24/19 at 06:00 Lisinopril (Prinivil) 20 mg DAILY PO ; Start 09/23/19 at 13:00 Ondansetron HCl (Zofran Odt) 4 mg PRN Q6HRS PRN PO NAUSEA/VOMITING 1ST CHOICE; Start 09/23/19 at 12:45 Prochlorperazine Maleate (Compazine) 5 mg PRN TID PRN PO NAUSEA (2nd Choice); Start 09/23/19 at 12:45 Sertraline HCl (Zoloft) 50 mg DAILY PO ; Start 09/23/19 at 13:00 Bupropion HCl (Wellbutrin Xl) 300 mg DAILYWBKFT PO ; Start 09/24/19 at 08:00 Amylase/Lipase/ Protease (Zenpep 5,000) 1 cap TIDWMEALS PO ; Start 09/23/19 at 17:00 Famotidine (Pepcid) 40 mg QHS PO ; Start 09/23/19 at 21:00 Pantoprazole Sodium (Protonix) 40 mg DAILYAC PO ; Start 09/23/19 at 16:30 Active Scripts Active Hydrocodone-Apap 5-325 (Hydrocodone Bit/Acetaminophen) 1 Tab Tablet 1 Tab PO PRN Q6HRS PRN 4 Days Guaifenesin Dm Syrup (Guaifenesin/Dextromethorphan) 5 Ml Syrup 10 Ml PO PRN Q6HRS PRN 10 Days Carvedilol (Carvedilol) 6.25 Mg Tablet 12.5 Mg PO BIDWMEALS Hydralazine Hcl 25 Mg Tablet 25 Mg PO TID Humalog (Insulin Lispro) 100 Unit/1 Ml Insuln.pen 0 Units SQ TIDWMEALS 28 Days Culturelle (Lactobacillus Rhamnosus Gg) 1 Each Cap.sprink 1 Cap PO BID 30 Days Ondansetron Odt (Ondansetron) 4 Mg Tab.rapdis 4 Mg PO PRN Q6HRS PRN 28 Days Clopidogrel (Clopidogrel Bisulfate) 75 Mg Tablet 75 Mg PO DAILYWBKFT 30 Days Pinky-Shreya Tablet (Folic Acid/Vitamin B Comp W-C) 0.8 Mg Tablet 1 Tab PO DAILY Tylenol (Acetaminophen) 325 Mg Capsule 650 Mg PO Q6-8HRS PRN Zantac (Ranitidine Hcl) 300 Mg Tablet 1 Tab PO QHS Compazine (Prochlorperazine Maleate) 5 Mg Tablet 5 Mg PO PRN TID PRN 10 Days [Pantoprazole] 40 MG Tablet.dr 40 Mg PO DAILYAC 30 Days Reported Bupropion Xl (Bupropion Hcl) 300 Mg Tab.er.24h 1 Tab PO DAILYWBKFT Zoloft (Sertraline Hcl) 50 Mg Tablet 50 Mg PO DAILY Lisinopril 20 Mg Tablet 20 Mg PO DAILY Creon 6,000 Units Capsule (Lipase/Protease/Amylase) 1 Each Capsule.dr 1 Tab PO TID Proair Hfa (Albuterol Sulfate) 8.5 Gm Hfa.aer.ad 2 Puff INH BID PRN Levothyroxine Sodium 50 Mcg Tablet 1 Tab PO DAILY Clonidine Tts-2 (Clonidine) 1 Each Patch.tdwk 1 Patch TD WEEKLY Amlodipine Besylate 5 Mg Tablet 10 Mg PO DAILY Atorvastatin Calcium 40 Mg Tablet 40 Mg PO HS Latanoprost 2.5 Ml Drops 1 Drop EACHEYE HS Allergies Allergies: Coded Allergies: No Known Drug Allergies (Unverified , 02/27/19) ROS Review of System Per HPI Physical Exam Physical Exam General: NAD HEENT: PERRLA, OM moist Neck Supple Lungs: dec BS , Non labored Heart: S1S2, RRR, n Abdomen: Normal bowel sounds, Soft, No tenderness, No Calvillo Extremities: Bila BKA , Necrotic tip Rt middle finger , AVF + Skin: No rash Neuro- Grossly Normal Vital Signs Vital Signs Date Time Temp Pulse Resp B/P (MAP) Pulse Ox O2 Delivery O2 Flow Rate FiO2 09/23/19 08:00 Room Air 09/23/19 07:00 98.4 78 16 144/60 (77) 92 98.4 Assessment & Plan ESRD - On HD MWF Seen on HD, tolerating well, continue as ordered, Dw n ACcess- AV access Lt HyperKalemia- K 7.4 at presentation - Chronic Non compliance with HD and diet Dialysis Today Rt Necrotic Middle finger - per vascular AVG placed in September 2018 at [facility] - Left upper arm brachial artery to brachial vein arterial to venous graft placement using PTFE graft. 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 Labs Labs Laboratory Tests Test 09/22/19 23:09 09/22/19 23:50 White Blood Count 7.4 x10^3/uL (4.0-11.0) Red Blood Count 2.89 x10^6/uL (3.50-5.40) Hemoglobin 9.0 g/dL (12.0-15.5) Hematocrit 26.5 % (36.0-47.0) Mean Corpuscular Volume 92 fL (79-100) Mean Corpuscular Hemoglobin 31 pg (25-35) Mean Corpuscular Hemoglobin Concent 34 g/dL (31-37) Red Cell Distribution Width 18.6 % (11.5-14.5) Platelet Count 232 x10^3/uL (140-400) Neutrophils (%) (Auto) 78 % (31-73) Lymphocytes (%) (Auto) 13 % (24-48) Monocytes (%) (Auto) 8 % (0-9) Eosinophils (%) (Auto) 1 % (0-3) Basophils (%) (Auto) 1 % (0-3) Neutrophils # (Auto) 5.7 x10^3/uL (1.8-7.7) Lymphocytes # (Auto) 0.9 x10^3/uL (1.0-4.8) Monocytes # (Auto) 0.6 x10^3/uL (0.0-1.1) Eosinophils # (Auto) 0.0 x10^3/uL (0.0-0.7) Basophils # (Auto) 0.1 x10^3/uL (0.0-0.2) Sodium Level 137 mmol/L (136-145) 137 mmol/L (136-145) Potassium Level 7.4 mmol/L (3.5-5.1) 7.3 mmol/L (3.5-5.1) Chloride Level 101 mmol/L (98-107) 101 mmol/L (98-107) Carbon Dioxide Level 20 mmol/L (21-32) 23 mmol/L (21-32) Anion Gap 16 (6-14) 13 (6-14) Blood Urea Nitrogen 92 mg/dL (7-20) 92 mg/dL (7-20) Creatinine 8.0 mg/dL (0.6-1.0) 8.1 mg/dL (0.6-1.0) Estimated GFR (Cockcroft-Gault) 6.3 6.2 BUN/Creatinine Ratio 12 (6-20) 11 (6-20) Glucose Level 113 mg/dL (70-99) 111 mg/dL (70-99) Calcium Level 8.1 mg/dL (8.5-10.1) 8.2 mg/dL (8.5-10.1) Total Bilirubin 0.5 mg/dL (0.2-1.0) 0.5 mg/dL (0.2-1.0) Aspartate Amino Transf (AST/SGOT) 84 U/L (15-37) 76 U/L (15-37) Alanine Aminotransferase (ALT/SGPT) 38 U/L (14-59) 30 U/L (14-59) Alkaline Phosphatase 125 U/L (46-116) 119 U/L (46-116) Total Protein 6.3 g/dL (6.4-8.2) 6.7 g/dL (6.4-8.2) Albumin 3.1 g/dL (3.4-5.0) 3.0 g/dL (3.4-5.0) Albumin/Globulin Ratio 1.0 (1.0-1.7) 0.8 (1.0-1.7) Laboratory Tests Test 09/22/19 23:09 09/22/19 23:50 White Blood Count 7.4 x10^3/uL (4.0-11.0) Red Blood Count 2.89 x10^6/uL (3.50-5.40) Hemoglobin 9.0 g/dL (12.0-15.5) Hematocrit 26.5 % (36.0-47.0) Mean Corpuscular Volume 92 fL (79-100) Mean Corpuscular Hemoglobin 31 pg (25-35) Mean Corpuscular Hemoglobin Concent 34 g/dL (31-37) Red Cell Distribution Width 18.6 % (11.5-14.5) Platelet Count 232 x10^3/uL (140-400) Neutrophils (%) (Auto) 78 % (31-73) Lymphocytes (%) (Auto) 13 % (24-48) Monocytes (%) (Auto) 8 % (0-9) Eosinophils (%) (Auto) 1 % (0-3) Basophils (%) (Auto) 1 % (0-3) Neutrophils # (Auto) 5.7 x10^3/uL (1.8-7.7) Lymphocytes # (Auto) 0.9 x10^3/uL (1.0-4.8) Monocytes # (Auto) 0.6 x10^3/uL (0.0-1.1) Eosinophils # (Auto) 0.0 x10^3/uL (0.0-0.7) Basophils # (Auto) 0.1 x10^3/uL (0.0-0.2) Sodium Level 137 mmol/L (136-145) 137 mmol/L (136-145) Potassium Level 7.4 mmol/L (3.5-5.1) 7.3 mmol/L (3.5-5.1) Chloride Level 101 mmol/L (98-107) 101 mmol/L (98-107) Carbon Dioxide Level 20 mmol/L (21-32) 23 mmol/L (21-32) Anion Gap 16 (6-14) 13 (6-14) Blood Urea Nitrogen 92 mg/dL (7-20) 92 mg/dL (7-20) Creatinine 8.0 mg/dL (0.6-1.0) 8.1 mg/dL (0.6-1.0) Estimated GFR (Cockcroft-Gault) 6.3 6.2 BUN/Creatinine Ratio 12 (6-20) 11 (6-20) Glucose Level 113 mg/dL (70-99) 111 mg/dL (70-99) Calcium Level 8.1 mg/dL (8.5-10.1) 8.2 mg/dL (8.5-10.1) Total Bilirubin 0.5 mg/dL (0.2-1.0) 0.5 mg/dL (0.2-1.0) Aspartate Amino Transf (AST/SGOT) 84 U/L (15-37) 76 U/L (15-37) Alanine Aminotransferase (ALT/SGPT) 38 U/L (14-59) 30 U/L (14-59) Alkaline Phosphatase 125 U/L (46-116) 119 U/L (46-116) Total Protein 6.3 g/dL (6.4-8.2) 6.7 g/dL (6.4-8.2) Albumin 3.1 g/dL (3.4-5.0) 3.0 g/dL (3.4-5.0) Albumin/Globulin Ratio 1.0 (1.0-1.7) 0.8 (1.0-1.7) Review All relevant outside records, renal labs, imaging studies, telemetry/EKG's were reviewed. Images Images : Reason: finger necrosis middle finger / Spl. Instructions: / History: COMPARISON: None. IMPRESSION: Right hand: 3 views obtained. Severe calcific atherosclerosis. There is degenerative changes of the wrist and hand. Soft tissue defect is seen in the third digit overlying the distal phalanx with air in the soft tissues. Could be secondary to an ulcer within the region. Soft tissue infection could have this appearance. This also extends towards the level of the cortex of the distal phalanx and therefore the patient would be at high risk for osteomyelitis. Evaluation for osteomyelitis is needed bone scan or MRI can assess. DOMINIQUE TSE MD Sep 23, 2019 14:22
[2019-09-23 15:00] VITALS: BP 143/84
[2019-09-23] MEDS: CARVEDILOL 6.25 MG TABLET. PO SCH (15:26)
[2019-09-23] MEDS: PANTOPRAZOLE 40 MG TABLET.DR. PO SCH (16:30)
--- NOTE | 2019-09-23 16:49 | NUR ---
Wound/Ostomy Care Wound Type/Assessment: Wound care consult for right 3rd ischemic finger. Pt states that she does not remember causing an injury to her finger. Treatment Recommendations/Plan: Measurement taken, pt refused to have wound cleansed by wound care team. Right 3rd finger appears blackened with dry eschar, no discharge noted. Pt refused skin assessment. Per MAGALY Daviscardiac/vascular sonographer has been consult for possible surgical intervention, will differ wound care recommendations to vascular surgery at this time. Education provided: PU prevention, pt refused teaching. Offloading surface/device: purple wedge for turning if pt allows it Recommended Referrals/Tests: vascular Discharge Recommendations for dressings: n/a at this time
[2019-09-23] MEDS ORDERED: GLUCAGON,HUMAN RECOMBINANT 1 MG/ML VIAL. IM ONE ×2 (17:00→17:45)
[2019-09-23] MEDS: ATORVASTATIN CALCIUM 40 MG TABLET. PO SCH (20:38)
[2019-09-23] MEDS: HYDROcodone/APAP 5/325MG 1 TAB TABLET PO PRN (20:39)
[2019-09-23] MEDS: LACTOBACILLUS RHAMNOSUS GG 1 CAPSULE. PO SCH (20:39)
[2019-09-23] MEDS: LATANOPROST 0.005% OPHTH SOLUTION 2.5ML BOTTLE. OU SCH (20:39)
[2019-09-23 20:42] VITALS: BP 173/60
[2019-09-24] VITALS (7 sets, daily range): BP systolic 85–242; BP diastolic 50–90
[2019-09-24] MEDS: HYDROcodone/APAP 5/325MG 1 TAB TABLET PO PRN ×2 (02:44→08:32)
[2019-09-24] MEDS: LEVOTHYROXINE 50 MCG TABLET PO SCH (06:00)
[2019-09-24 06:20] LABS: CREATININE 5.4 mg/dL (0.6-1.0); GFR 9.9; POTASSIUM 4.9 mmol/L (3.5-5.1)
[2019-09-24] MEDS ORDERED: GLUCAGON,HUMAN RECOMBINANT 1 MG/ML VIAL. IM ONE (06:30)
[2019-09-24] MEDS ORDERED: DEXTROSE ORAL GEL 15 GM TUBE. PO PRN (06:45)
[2019-09-24] MEDS: PANTOPRAZOLE 40 MG TABLET.DR. PO SCH (07:30)
[2019-09-24] MEDS: GLUCAGON,HUMAN RECOMBINANT 1 MG/ML VIAL. IM PRN ×2 (07:35→11:25)
[2019-09-24] MEDS: buPROPion XL 150 MG TAB.ER.24H. PO SCH (08:00)
[2019-09-24] MEDS: CARVEDILOL 6.25 MG TABLET. PO SCH ×3 (08:00→19:02)
[2019-09-24] MEDS: CLOPIDOGREL BISULFATE 75 MG TABLET PO SCH (08:00)
[2019-09-24] MEDS: LACTOBACILLUS RHAMNOSUS GG 1 CAPSULE. PO SCH ×2 (08:01→22:19)
[2019-09-24] MEDS: amLODIPine BESYLATE 10 MG TABLET PO SCH ×2 (08:01→19:03)
[2019-09-24] MEDS: hydrALAZINE 25 MG TABLET PO SCH ×3 (08:01→22:19)
[2019-09-24] MEDS: LISINOPRIL 20 MG TABLET PO SCH ×2 (08:01→19:02)
[2019-09-24] MEDS: FAMOTIDINE 20 MG TABLET. PO SCH (08:01)
[2019-09-24] MEDS: FOLIC/VIT B COMP W-C (RENAL) TABLET. PO SCH (08:02)
[2019-09-24] MEDS: SERTRALINE 50 MG TABLET. PO SCH (08:02)
[2019-09-24] MEDS ORDERED: PIP/TAZO PER PHARMACY MC PRN (09:00)
--- NOTE | 2019-09-24 09:22 | PDOC ---
Provider Note Provider Note Vascular Consult dictated patient seen and examined with Dr. Villeda Right 3rd finger gangrene and pain. Mild swelling, no purulent drainage. Biphasic Doppler Radial and ulnar arteries ESRD with left arm access, no signs of ischemia left hand Recommend Arterial US, angiogram Consult ID, start Vanco and Zosyn Plan for amputation tomorrow with Dr. Villeda Discussed with RN and supervisor in charge to coordinate. Stat surgical COVID testing. Justicifation of Admission Dx: Justifications for Admission: Justification of Admission Dx: Yes NALLELY FERNANDES [employer] Sep 24, 2019 09:22
[2019-09-24] MEDS: PIPERACILLIN/TAZOBACTAM 2.25 GM in IV NORMAL SALINE 50ML 50 ML IV SCH ×2 (10:00→18:36)
[2019-09-24 10:14] LABS: PROTHROMBIN TIME PATIENT 14.8 SEC (11.7-14.0)
--- NOTE | 2019-09-24 10:18 | CONS ---
DATE OF CONSULTATION: 09/24/2019 CHIEF COMPLAINT: Right third finger pain and gangrene. HISTORY OF PRESENT ILLNESS: The patient is a 59-year-old female with a long history of end-stage renal disease, on chronic hemodialysis, hypertension, diabetes mellitus and bilateral [id number] amputations, who presents with significant pain in her right third finger and gangrene. She feels that this has been present probably for a few weeks, but she is not a very good historian. She states the pain is constant. She has noticed no drainage. She reports no pain in the other fingers of her right hand. She reports no pain in her left hand. She does have a left upper arm vzvobpuv-ea-xgqqew shunt in place, which she uses for hemodialysis. She has not had any right arm access procedures in the past. She has had tunneled hemodialysis catheters, but currently does not have one in place. REVIEW OF SYSTEMS: A 10-point review of systems was performed, which is otherwise negative besides what is mentioned in the history of present illness. PAST MEDICAL HISTORY: Includes: 1. Congestive heart failure. 2. Hypertension. 3. Hyperlipidemia. 4. Asthma. 5. Peripheral neuropathy. 6. Acid reflux. 7. Bipolar disorder. 8. Fibromyalgia. 9. Diabetes mellitus. 10. Hypothyroidism. PAST SURGICAL HISTORY: Includes: 1. Hysterectomy. 2. Bilateral below-knee amputations: 3. Peripheral angiograms with interventions of her lower extremity arteries. 4. Left upper arm qivqebqd-[id number] graft placement. FAMILY HISTORY: Includes hypertension. SOCIAL HISTORY: She smokes on a daily basis, reports no alcohol use. PHYSICAL EXAMINATION: GENERAL: The patient is awake and alert, currently in no apparent distress. VITAL SIGNS: She is afebrile, her blood pressure is 152/64, pulse is 72, she is 98% on room air. NECK: Supple. ABDOMEN: Soft, nondistended and nontender. EXTREMITIES: Her left upper extremity has an upper arm kmrkvnao-ip-fiysfl graft in place with a good pulse; there is no forearm swelling; her hand is pink and warm with no tissue breakdown in her left hand and no pain. Her right upper extremity is warm; no scars on her right arm from previous access procedures; no swelling in the arm; her right hand is warm, the third finger has dry gangrene of the distal third of the finger and some mild swelling of the finger itself; there is no purulent drainage; there is mild erythema; I cannot palpate a radial or ulnar pulse at her wrist; she does have dopplerable flow at her radial and ulnar location. Her bilateral lower extremities have below-knee amputations; the incisions are well healed with no tissue breakdown. NEUROLOGIC: She is awake and alert, oriented x 3, but is a fairly poor historian. There are no gross neurologic deficits. ASSESSMENT AND PLAN: A 59-year-old female with end-stage renal disease, on chronic hemodialysis. She has developed gangrene of her right third finger associated with pain and cellulitis. She has not had any dialysis access procedures in her right arm in the past. On examination, she does not have a palpable pulse, but she does have dopplerable flow at her wrist. We will order an arterial duplex scan of her right arm and likely will need an angiogram of her right arm today, which we have ordered with Interventional Radiology. She will be scheduled for a right third finger amputation tomorrow in Surgery. We will start her on IV antibiotics and consult Infectious Disease. She is on daily Plavix. NATE JENSEN MD DR: ANDREW/franny JOB#: [id number] / [id number]
[2019-09-24] MEDS: oxyCODONE/APAP 10/325 1 TAB TABLET PO PRN (10:29)
[2019-09-24] MEDS ORDERED: IV RINGERS,LACTATED 1000ML 1,000 ML IV SCH ×2 (10:54→17:51)
[2019-09-24] MEDS ORDERED: HYDROmorphone 2 MG/ML VIAL IV PRN ×2 (11:00→18:00)
[2019-09-24] MEDS ORDERED: fentaNYL PF VIAL 100 MCG/2 ML VIAL IV PRN ×4 (11:00→18:00)
[2019-09-24] MEDS ORDERED: MORPHINE SULFATE 2 MG/ML VIAL. IV PRN ×2 (11:00→18:00)
[2019-09-24] MEDS ORDERED: LIDOCAINE 1% PF 2 ML VIAL. ID PRN ×2 (11:00→18:00)
[2019-09-24] MEDS ORDERED: ONDANSETRON PF 4 MG/2 ML VIAL. IV PRN ×2 (11:00→18:00)
[2019-09-24] MEDS ORDERED: PROCHLORPERAZINE 10 MG/2 ML VIAL. IV PRN ×2 (11:00→18:00)
--- NOTE | 2019-09-24 11:07 | RAD ---
Examination: UPPER EXT ARTERIAL RIGHT History: Reason: right 3rd finger necrosis / Spl. Instructions: / History: Comparison/Correlation: None Findings: Right upper extremity duplex arterial ultrasound examination was performed. The systolic velocities provided below are in centimeter per second. Triphasic waveforms are identified. Mild atheromatous involvement of the right upper extremity arterial vasculature noted. Right upper extremity Proximal subclavian artery 85 Distal subclavian artery 62 Axillary artery 61 Proximal brachial artery 107 Mid brachial artery 116 Distal brachial artery 116 Proximal radial artery 107 Distal radial artery 71 Proximal ulnar artery 82 Distal ulnar artery 71 Impression: There is no hemodynamic stenosis identified. Electronically signed by: Ildefonso Alberto MD (09/24/2019 11:04 AM) [id number]
--- NOTE | 2019-09-24 11:35 | PDOC ---
SUBJECTIVE ROS Stable OBJECTIVE Vital Signs Vital Signs Date Time Temp Pulse Resp B/P (MAP) Pulse Ox O2 Delivery O2 Flow Rate FiO2 09/24/19 11:19 97.7 79 22 139/50 (79) 96 Room Air 97.7 I & 0 Intake and Output 09/24/19 07:00 Intake Total 300 ml Balance 300 ml Intake Oral 300 ml PHYSICAL EXAM Physical Exam General: NAD HEENT: PERRLA, OM moist Neck Supple Lungs: dec BS , Non labored Heart: S1S2, RRR, n Abdomen: Normal bowel sounds, Soft, No tenderness, No Calvillo Extremities: Bila BKA , Necrotic tip Rt middle finger , AVF + Skin: No rash Neuro- Grossly Normal DIAGNOSIS/ASSESSMENT Assessment & Plan ESRD - On HD MWF Currently No indication for HD today ACcess- AV access Lt HyperKalemia- K 7.4 at presentation - Chronic Non compliance with HD and diet Normal today , HD yesterday Right 3rd finger gangrene and pain Arterial US, angiogram per vascular ,Plan for amputation tomorrow with Dr. Villeda AVG placed in September 2018 at [facility] - Left upper arm brachial artery to brachial vein arterial to venous graft placement using PTFE graft. 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 COMMENT/RELEVANT DATA Meds Current Medications Medications (Trade) Dose Ordered Sig/Clarence Start Time Stop Time Status Last Admin Dose Admin Acetaminophen/ Hydrocodone Bitart (Lortab 5/325) 1 tab PRN Q6HRS PRN 09/23/19 12:45 09/24/19 10:14 DC 09/24/19 08:32 1 TAB Albuterol Sulfate (Ventolin Neb Soln) 2.5 mg PRN BID PRN 09/23/19 12:45 Amlodipine Besylate (Norvasc) 10 mg DAILY 09/23/19 13:00 Amylase/Lipase/ Protease (Zenpep 5,000) 1 cap TIDWMEALS 09/23/19 17:00 Atorvastatin Calcium (Lipitor) 40 mg HS 09/23/19 21:00 09/23/19 20:38 40 MG Bupropion HCl (Wellbutrin Xl) 300 mg DAILYWBKFT 09/24/19 08:00 Calcium Gluconate (Calcium Gluconate) 1,000 mg 1X ONCE 09/23/19 00:30 09/23/19 00:31 DC 09/23/19 01:00 1,000 MG Carvedilol (Coreg) 12.5 mg BIDWMEALS 09/23/19 17:00 Clonidine HCl (Catapres Tts-2) 1 patch WEEKLY 09/23/19 13:00 09/23/19 21:00 1 PATCH Clopidogrel Bisulfate (Plavix) 75 mg DAILYWBKFT 09/23/19 13:00 Dextrose (Dextrose 50%-Water Syringe) 12.5 gm PRN Q15MIN PRN 09/23/19 17:45 Famotidine (Pepcid) 40 mg QODAY 09/24/19 09:00 Fentanyl Citrate (Fentanyl 2ml Vial) 50 mcg PRN Q5MIN PRN 09/24/19 11:00 09/25/19 10:59 UNV Glucagon (Glucagen) 1 mg PRN Q15MIN PRN 09/24/19 06:45 09/24/19 11:25 1 MG Glucose (Insta-Glucose) 15 gm PRN Q15MIN PRN 09/24/19 06:45 Guaifenesin (Robitussin Dm) 10 ml PRN Q6HRS PRN 09/23/19 12:45 Hydralazine HCl (Apresoline) 25 mg TID 09/23/19 14:00 09/23/19 20:38 25 MG Hydromorphone HCl (Dilaudid) 0.5 mg PRN Q10MIN PRN 09/24/19 11:00 09/25/19 10:59 UNV Info (PHARMACY MONITORING -- do not chart) 1 each PRN DAILY PRN 09/23/19 09:45 Insulin Human Regular (HumuLIN R VIAL) 10 unit 1X ONCE 09/23/19 00:30 09/23/19 00:31 DC 09/23/19 00:59 10 UNIT Lactobacillus Rhamnosus (Culturelle) 1 cap BID 09/23/19 21:00 09/23/19 20:39 1 CAP Latanoprost (Xalatan) 1 drop HS 09/23/19 21:00 09/23/19 20:39 1 DROP Levothyroxine Sodium (Synthroid) 50 mcg DAILY06 09/24/19 06:00 Lidocaine HCl (Xylocaine-Mpf 1% 2ml Vial) 2 ml PRN 1X PRN 09/24/19 11:00 09/25/19 10:59 UNV Lisinopril (Prinivil) 20 mg DAILY 09/23/19 13:00 Morphine Sulfate (Morphine Sulfate) 1 mg PRN Q10MIN PRN 09/24/19 11:00 09/25/19 10:59 UNV Ondansetron HCl (Zofran Odt) 4 mg PRN Q6HRS PRN 09/23/19 12:45 Ondansetron HCl (Zofran) 4 mg PRN Q6HRS PRN 09/24/19 11:00 09/25/19 10:59 UNV Oxycodone/ Acetaminophen (Percocet 10/325) 1 tab PRN Q4HRS PRN 09/24/19 10:15 09/24/19 10:29 1 TAB Pantoprazole Sodium (Protonix) 40 mg DAILYAC 09/23/19 16:30 Piperacillin Sod/ Tazobactam Sod (Zosyn Per Pharmacy) 1 each PRN DAILY PRN 09/24/19 09:00 Piperacillin Sod/ Tazobactam Sod 2.25 gm/Sodium Chloride 50 ml @ 100 mls/hr Q8HRS 09/24/19 10:00 Prochlorperazine Edisylate (Compazine) 5 mg PACU PRN PRN 09/24/19 11:00 09/25/19 10:59 UNV Prochlorperazine Maleate (Compazine) 5 mg PRN TID PRN 09/23/19 12:45 Ringer's Solution 1,000 ml @ 30 mls/hr Q24H 09/24/19 10:54 09/24/19 22:53 Sertraline HCl (Zoloft) 50 mg DAILY 09/23/19 13:00 Sodium Polystyrene Sulfonate (Kayexalate) 30 gm 1X ONCE 09/23/19 00:30 09/23/19 00:31 DC Sodium Chloride 1,000 ml @ 400 mls/hr Q2H30M PRN 09/23/19 09:38 09/23/19 21:38 DC Vancomycin HCl (Vanco Per Pharmacy) 1 each PRN DAILY PRN 09/24/19 09:00 Vancomycin HCl 1.25 gm/Sodium Chloride 250 ml @ 166.667 mls/hr 1X ONCE 09/22/19 23:15 09/23/19 00:44 DC 09/23/19 00:02 166.667 MLS/HR Vitamin B Complex/ Vitamin C (Pinky-Shreya) 1 tab DAILY 09/23/19 13:00 Lab Laboratory Tests Test 09/23/19 16:53 09/23/19 17:25 09/23/19 18:34 09/24/19 04:50 Glucose (Fingerstick) 19 mg/dL (70-99) 56 mg/dL (70-99) 70 mg/dL (70-99) Prothrombin Time 14.8 SEC (11.7-14.0) Prothromb Time International Ratio 1.2 (0.8-1.1) Activated Partial Thromboplast Time 33 SEC (24-38) Sodium Level 138 mmol/L (136-145) Potassium Level 4.9 mmol/L (3.5-5.1) Chloride Level 99 mmol/L (98-107) Carbon Dioxide Level 26 mmol/L (21-32) Anion Gap 13 (6-14) Blood Urea Nitrogen 57 mg/dL (7-20) Creatinine 5.4 mg/dL (0.6-1.0) Estimated GFR (Cockcroft-Gault) 9.9 Glucose Level 33 mg/dL (70-99) Calcium Level 9.0 mg/dL (8.5-10.1) Test 09/24/19 06:26 09/24/19 07:23 09/24/19 07:58 09/24/19 11:16 Glucose (Fingerstick) 31 mg/dL (70-99) 52 mg/dL (70-99) 65 mg/dL (70-99) 34 mg/dL (70-99) Results All relevant outside records, renal labs, imaging studies, telemetry/EKG's were reviewed. Justicifation of Admission Dx: Justifications for Admission: Justification of Admission Dx: Yes DOMINIQUE TSE MD Sep 24, 2019 11:35
--- NOTE | 2019-09-24 11:40 | NUR ---
SW following. Reviewed chart and spoke with RN. Coordinated care with Dr. Talley. Pt to have surgery for a finger amputation on 09/25/2019. SW to continue following.
--- NOTE | 2019-09-24 11:54 | PDOC ---
[facility] PROGRESS NOTE Chief Complaint Chief Complaint A/P: Acute encephalopathy secondary to metabolic etiology with hypoglycemia Right middle finger pain - dry gangrene, likely will auto-amputate, no sign of active infection. Hyperkalemia - K 7.4 ESRD - MWF [facility] patient. Fistula functioning again now. She is very intermittently compliant. Acute on chronic diastolic CHF - with elevated BNP and CXR findings concerning Accelerated HTN: labile Anasarca Noncompliance: missed dialysis, no transport. Suspect missed meds as well. Hx of severe LE PAD - S/P bilateral BKA. more recent to left leg, incision intact Debility HX NONCOMPLIANCE Anxiety Chronic back pain Chronic anemia Elevated liver function tests Depression sec to med illness History of diabetes mellitus type 2 History of hypothyroidism Chronic pain syndrome History of bilateral BKA History of Present Illness History of Present Illness 09/24/2019 Patient seen and examined She complains of finger pain Discussed with nurse Chart reviewed We are having a difficult time getting IV access Vitals/I&O Vitals/I&O: Vital Signs Date Time Temp Pulse Resp B/P (MAP) Pulse Ox O2 Delivery O2 Flow Rate FiO2 09/24/19 11:19 97.7 79 22 139/50 (79) 96 Room Air 97.7 I & O 09/23/19 09/23/19 09/24/19 15:00 23:00 07:00 Intake Total 300 ml 0 ml Balance 300 ml 0 ml Physical Exam General: Alert, moderate distress Lungs: Clear Abdomen: Normal bowel sounds, Soft, No tenderness, No hepatosplenomegaly, No masses Extremities: Other (The right third finger is gangrenous from the DIP on out) Skin: Other (BIlateral BKA, right middle finger necrotic, dry) Labs Labs: Laboratory Tests Test 09/23/19 16:53 09/23/19 17:25 09/23/19 18:34 09/24/19 04:50 Glucose (Fingerstick) 19 mg/dL (70-99) 56 mg/dL (70-99) 70 mg/dL (70-99) Prothrombin Time 14.8 SEC (11.7-14.0) Prothromb Time International Ratio 1.2 (0.8-1.1) Activated Partial Thromboplast Time 33 SEC (24-38) Sodium Level 138 mmol/L (136-145) Potassium Level 4.9 mmol/L (3.5-5.1) Chloride Level 99 mmol/L (98-107) Carbon Dioxide Level 26 mmol/L (21-32) Anion Gap 13 (6-14) Blood Urea Nitrogen 57 mg/dL (7-20) Creatinine 5.4 mg/dL (0.6-1.0) Estimated GFR (Cockcroft-Gault) 9.9 Glucose Level 33 mg/dL (70-99) Calcium Level 9.0 mg/dL (8.5-10.1) Test 09/24/19 06:26 09/24/19 07:23 09/24/19 07:58 09/24/19 11:16 Glucose (Fingerstick) 31 mg/dL (70-99) 52 mg/dL (70-99) 65 mg/dL (70-99) 34 mg/dL (70-99) Test 09/24/19 11:47 Glucose (Fingerstick) 54 mg/dL (70-99) Assessment and Plan Assessmemt and Plan Problems Medical Problems: (1) Osteomyelitis Status: Acute (2) Osteomyelitis of finger Status: Acute A/P: Acute encephalopathy secondary to metabolic etiology with hypoglycemia Right middle finger pain - dry gangrene, likely will auto-amputate, no sign of active infection. Will consult vascular surgery. Hyperkalemia - K 7.4, will give kayexelate ESRD - MWF [facility] patient. Fistula functioning again now. She is very intermittently compliant. Acute on chronic diastolic CHF - with elevated BNP and CXR findings concerning, will diurese with UF Accelerated HTN: labile, will restart meds Anasarca Noncompliance: missed dialysis, no transport. Suspect missed meds as well. Hx of severe LE PAD - S/P bilateral BKA. more recent to left leg, incision intact Debility HX NONCOMPLIANCE Anxiety Chronic back pain Chronic anemia Elevated liver function tests Depression sec to med illness History of diabetes mellitus type 2 History of hypothyroidism Chronic pain syndrome History of bilateral BKA Comment Review of Relevant I have reviewed the following items pamela (where applicable) has been applied. Medications: Current Medications Medications (Trade) Dose Ordered Sig/Clarence Route PRN Reason Start Time Stop Time Status Last Admin Dose Admin Atorvastatin Calcium (Lipitor) 40 mg HS PO 09/23/19 21:00 6/29/20 20:38 Clonidine HCl (Catapres Tts-2) 1 patch WEEKLY TD 09/23/19 13:00 09/23/19 21:00 Hydralazine HCl (Apresoline) 25 mg TID PO 09/23/19 14:00 09/23/19 20:38 Acetaminophen/ Hydrocodone Bitart (Lortab 5/325) 1 tab PRN Q6HRS PRN PO MODERTE PAIN 09/23/19 12:45 09/24/19 10:14 DC 09/24/19 08:32 Lactobacillus Rhamnosus (Culturelle) 1 cap BID PO 09/23/19 21:00 09/23/19 20:39 Latanoprost (Xalatan) 1 drop HS OU 09/23/19 21:00 09/23/19 20:39 Glucagon (Glucagen) 1 mg 1X ONCE IM 09/23/19 17:00 09/23/19 17:01 DC 09/23/19 17:06 Glucagon (Glucagen) 1 mg 1X ONCE IM 09/23/19 17:45 09/23/19 17:46 DC 09/23/19 17:42 Glucagon (Glucagen) 1 mg 1X ONCE IM 09/24/19 06:30 09/24/19 06:31 DC 09/24/19 06:37 Glucagon (Glucagen) 1 mg PRN Q15MIN PRN IM LOW BLOOD SUGAR 09/24/19 06:45 09/24/19 11:25 Oxycodone/ Acetaminophen (Percocet 10/325) 1 tab PRN Q4HRS PRN PO PAIN 09/24/19 10:15 09/24/19 10:29 Justicifation of Admission Dx: Justifications for Admission: Justification of Admission Dx: Yes ANGELINA GOMEZ III DO Sep 24, 2019 11:54
--- NOTE | 2019-09-24 12:03 | NUR ---
BLOOD SUGAR RECHECKED AT 53. NOTIFIED DR. TSE. ATTEMPTED TO GIVE PATIENT THE PO GLUCOSE GEL BUT PATIENT REFUSED TO TAKE IT, STATING "I WILL JUST BEFORE TAKING THAT SHIT, IT IS FUCKING NASTY." "IT'S JUST ONE LESS BITCH YOU HAVE TO WORRY ABOUT." REENFORCED THE IMPORTANCE OF KEEPING UP BLOOD SUGAR BUT PATIENT REFUSED THE TEACHING. WILL CONTINUE TO MONITOR.
[2019-09-24] MEDS: VANCOMYCIN PER PHARMACY MC PRN ×2 (12:24→12:30)
[2019-09-24] MEDS ORDERED: IODIXANOL 320 MG/ML 100 ML VIAL. ONE (13:50)
[2019-09-24] MEDS ORDERED: LIDOCAINE WITH 8.4% SOD BICARB 3 ML DISP.SYRIN. ONE (13:50)
[2019-09-24] MEDS ORDERED: LIDOCAINE 2% PF 5 ML VIAL. ONE (15:15)
[2019-09-24] MEDS ORDERED: PROPOFOL 10 MG/ML (20ML) VIAL. IV ONE (15:15)
[2019-09-24] MEDS ORDERED: DEXTROSE 50% 25 GM / 50ML DISP.SYRIN. IV ONE (15:19)
[2019-09-24] MEDS: DEXTROSE 50% 25 GM / 50ML DISP.SYRIN. IV PRN (15:22)
[2019-09-24] MEDS: IV DEXTROSE 10% 1,000 ML IV SCH (15:53)
[2019-09-24] MEDS ORDERED: IODIXANOL 320 MG/ML 100 ML VIAL. IART ONE (16:15)
[2019-09-24] MEDS ORDERED: LIDOCAINE WITH 8.4% SOD BICARB 3 ML DISP.SYRIN. IJ ONE (16:15)
[2019-09-24] MEDS ORDERED: HEPARIN for IV BOLUS 10,000 UNIT/10 ML VIAL. ONE (16:21)
[2019-09-24] MEDS ORDERED: NITROGLYCERIN 200 MCG/2 ML SYRINGE FOR CATH/VASC LAB. IART ONE (16:45)
[2019-09-24] MEDS: fentaNYL PF VIAL 100 MCG/2 ML VIAL IV PRN ×2 (17:25→18:05)
--- NOTE | 2019-09-24 17:31 | RAD ---
Procedure: Ultrasound and fluoroscopic guided non-tunneled triple-lumen Central Venous Catheter Placement. The procedure, risk and complications to include bleeding, infection, pneumothorax and arrhythmia, were discussed at length with the patient and they understood and wished to proceed. All questions were answered. Consent form signed. The left neck was prepped and draped using maximal sterile technique and a 1% Xylocaine was used for local anesthesia. Ultrasound-guided access: Initial ultrasound of the right neck was performed which demonstrated chronic occlusion of the right IJ with no prominent EJ seen on that side. The only right neck vessels noted were very tortuous and crosses to the contralateral side and would not be easily amenable to and placement. This was discussed with Dr. Villeda with vascular surgery with the idea of a right subclavian vein access versus a left IJ access. She stated that she would prefer a left IJ access given patient's concurrent right arm symptoms and concern for consultations if a subclavian thrombus developed. The left neck was scanned by ultrasound in the jugular vein is patent and compressible, although stenosis is noted at its base. An ultrasound image was saved and sent to PACS. Under ultrasound guidance, a single wall puncture was made into the vein followed by wire placement. Initial attempt to pass a wire centrally proved very difficult with significant resistance met. Contrast was then injected which demonstrated severe stenosis/tortuosity along the lower aspect of the left IJ just proximal to the brachiocephalic vein. A Nitrex wire was able to be manipulated past the stenosis/tortuosity and into the SVC. Of note, some difficulty was experienced at the region of the brachiocephalic confluence, although wire did eventually pass. Micropuncture sheath was advanced over the microwire. Given these difficulties, a Glidewire was advanced through the micropuncture sheath past the heart into the IVC. A Wayne catheter was then advanced over the wire. Glidewire was removed and replaced with an Amplatz wire. The tract was dilated. Under fluoroscopic guidance a triple-lumen central venous catheter was advanced with the tip at the superior cavoatrial junction. The catheter lumens were tested to flush and aspirate easily. Lumens were flushed with heparinized normal saline. Fluoroscopic Spot Image of the Chest: The central venous catheter is in a satisfactory location. Negative for pneumothorax. Fluoroscopy time: 4.2 minutes DAP: 9.0 Gycm2 Complication: none Contrast: 5 cc Visipaque Sedation: none The patient tolerated the procedure well and there were no immediate complications. Arteriogram procedure was performed on the same procedural table after anesthesia began sedation. Conclusion: Successful left internal jugular non-tunneled triple-lumen central venous catheter placement.
[2019-09-24] MEDS ORDERED: fentaNYL PF VIAL 100 MCG/2 ML VIAL ONE (17:41)
--- NOTE | 2019-09-24 18:03 | RAD ---
Procedure: 13512 ANGIO EXTREMITY RIGHT Date: 09/24/2019 3:36 PM Clinical Indication: RIGHT third finger necrosis and nonhealing wound, severe peripheral arterial disease, history of bilateral below-knee amputations related to peripheral arterial disease Sedation: Sedation was performed by the anesthesia team. Fluoroscopy time: 10.6 minutes Dose area product: 27.4 Gycm2 Contrast: 86 mL Visipaque Consent: The procedure was explained in its entirety to the patient by a member of the treatment team, including a discussion of the risks, benefits and commonly accepted alternatives to the procedure, as well as the expected consequences of no therapy whatsoever. Discussion of the risks included, but was not limited to, those that are most frequent and those that are rare but possibly severe or life-threatening, as well as the possibility of unforeseen complications. Sterility: All elements of maximal sterile barrier technique including the use of a cap, mask, sterile gown, sterile gloves, large sterile sheet, appropriate hand hygiene, and 2% chlorhexidine for cutaneous antisepsis (or acceptable alternative antiseptic per current guidelines) were followed for this procedure. Technique and Findings: Following informed consent, the patient was prepped and draped in the usual sterile fashion. Ultrasound evaluation of the right groin demonstrated patent right common femoral artery. The right common femoral artery was accessed with a micropuncture needle under ultrasound guidance. Ultrasound image was saved and sent to PACS. A 0.018 inch wire was then advanced through the micropuncture needle. Small dermatotomy was made. The micropuncture sheath was then advanced over the wire. The puncture sheath inner dilator and microwire were then removed and replaced with a 0.035 inch Bentson wire. Micropuncture sheath was then removed and replaced with a 5 Icelandic, 10 cm vascular sheath. An H1 catheter was then advanced over the Bentson wire into the aortic arch. The H1 catheter was then removed over the wire and replaced with an Omni flush catheter. Oblique thoracic arteriogram was then performed. This demonstrated patency of the aortic arch branch vessels. The right brachiocephalic artery is patent without stenosis. The visualized right and left common carotid arteries are patent. The right subclavian artery is patent without stenosis. The left subclavian artery is patent without stenosis. The Omni Flush catheter was then removed over the wire and replaced with the H1 catheter. Bentson wire was removed and replaced with a Glidewire advantage. This catheter and wire combination were used to select the right brachiocephalic artery. A right brachiocephalic arteriogram was then performed demonstrating patency of the visualized right common carotid artery as well as the right subclavian artery and partially visualized right axillary artery. The H1 catheter was then advanced over the Glidewire drainage into the right subclavian artery. Upper arm arteriogram was then performed demonstrating patency of the right axillary artery as well as proximal and mid right brachial artery without stenosis. The H1 catheter was then advanced over the wire into the mid right brachial artery. Brachial arteriogram was then performed demonstrating dense atherosclerosis and an area of mild, nonflow limiting stenosis in the distal right brachial artery. The H1 catheter was then advanced over the wire into the distal right brachial artery. Forearm arteriograms were then performed. This demonstrated chronic occlusion of the ulnar artery with no flow seen. Several collaterals from the interosseous artery are noted minimally filling short segments of the ulnar artery, but it is predominantly not demonstrating flow. The right radial artery is diminutive with areas of tandem high-grade stenoses versus short segment occlusions in the forearm. The right radial artery occludes at the wrist with reconstitution at the level of the first carpometacarpal joint via collateral circulation. This collateral circulation is fed predominantly by more proximal radial artery branches. The reconstituted right radial artery feeds very small deep and superficial palmar arches. The interosseous artery is patent without stenosis seen. It provides small collateral circulation in the ulnar distribution of the hand/wrist. The majority of the flow in the hand is going towards the third digit with supply from both the radial artery branches as well as the interosseous artery branches. Radial and ulnar-sided proper palmar third digital arteries are seen with hyperemia in the proximal third digit. At this point, 200 mg of nitroglycerin was given in hopes that this would demonstrate some improvement in the arterial supply, but the same tandem radial artery short segment high-grade stenoses versus occlusions were seen as well as the radial occlusion in the right wrist with similar distal reconstitution. Dr. Villeda with vascular surgery was called at this point and shown the images of the forearm. She agreed that no intervention would be indicated at this point given the findings. The H1 catheter was then removed over the wire. A right common femoral arteriogram was performed through the access sheath. This demonstrated appropriate vessel-sizing access site for closure device. An Angio-Seal closure device was then used and stasis was achieved with a combination of this closure device and manual compression. The patient tolerated the procedure well and was transferred to the floor in stable condition. No immediate complications were identified. Impression: 1. Right upper extremity arteriograms demonstrate patency of the right brachiocephalic artery, right subclavian artery, right axillary artery, and right brachial artery. There is mild stenosis in the distal right brachial artery which is not flow limiting. Otherwise no inflow stenosis seen. 2. Severe peripheral arterial disease in the forearm and hand. The right ulnar artery is chronically occluded. The right radial artery is diminutive with areas of tandem high-grade stenoses versus short segment occlusions in the forearm. The right radial artery occludes at the wrist with reconstitution at the level of the first carpometacarpal joint via collateral circulation. The reconstituted right radial artery feeds very small deep and superficial palmar arches. The interosseous artery is patent without stenosis seen. It provides small collateral circulation in the ulnar distribution of the hand/wrist. 3. The majority of the flow in the hand is going towards the third digit with supply from both the radial artery branches as well as the interosseous artery branches. Radial and ulnar-sided proper palmar third digital arteries are seen with hyperemia in the proximal third digit.
[2019-09-24] MEDS: MORPHINE SULFATE 2 MG/ML VIAL. IV PRN ×2 (18:57→22:20)
[2019-09-24] MEDS: LATANOPROST 0.005% OPHTH SOLUTION 2.5ML BOTTLE. OU SCH (21:00)
[2019-09-24] MEDS: ATORVASTATIN CALCIUM 40 MG TABLET. PO SCH (22:19)
--- NOTE | 2019-09-24 22:21 | CONS ---
DATE OF CONSULTATION: REFERRING PHYSICIAN: Dr. Villeda. REASON FOR CONSULTATION: Right third finger necrosis with swelling. HISTORY OF PRESENT ILLNESS: A 59-year-old female with end-stage renal disease, on hemodialysis; hypertension; diabetes mellitus; bilateral below-knee amputation; chronic pain; neuropathy, presented to the ER with confusion and pain in the right distal middle finger, which started several days prior to admission. The patient is not a good historian, history obtained from chart and medical staff. The patient's temperature was 98 degrees, oxygen saturation 94% on room air. White count was 7.4, hemoglobin 9.0, hematocrit 26.5, platelets 232. Sodium 137, potassium 7.4, chloride 101, bicarbonate 20, BUN 92, creatinine 8.0, calcium 8.1, alkaline phosphatase 125, total protein 6.3. PCR negative. X-ray of the finger showed severe calcific atherosclerosis and degenerative changes of the wrist and hand, soft tissue defect is seen in the third digit overlying the distal phalanx with air in the soft tissue, could be secondary to an ulcer within the region. Soft tissue infection could have this appearance. This also extends towards the level of the cortex of the distal phalanx, and therefore, the patient would be at high risk for osteomyelitis. The patient continues to have pain. She undergoes dialysis through the left upper extremity AV shunt. She denies any recent procedure on the right arm. PAST MEDICAL HISTORY: End-stage renal disease, on hemodialysis; hypertension; hyperlipidemia; peripheral neuropathy; chronic pain; bipolar disorder; fibromyalgia; diabetes; hypothyroidism; congestive heart failure; asthma. PAST SURGICAL HISTORY: Bilateral below-knee amputation, left upper arm AV graft placement, hysterectomy, angiogram. FAMILY HISTORY: As per HPI. SOCIAL HISTORY: Smoker. No alcohol. Daughter is involved with her care. CURRENT MEDICATIONS: Vancomycin, Zosyn, morphine, fentanyl, Zofran, Dilaudid, lidocaine, famotidine, ____, Glucagon p.r.n., levothyroxine, latanoprost, lactobacillus, Lipitor, carvedilol, pantoprazole, hydralazine, sertraline, lisinopril, vitamin B complex, clopidogrel, clonidine, amlodipine, prochlorperazine, guaifenesin, albuterol sulfate. ALLERGIES: No known drug allergies. REVIEW OF SYSTEMS: Negative, though limited except for above in HPI. PHYSICAL EXAMINATION: VITAL SIGNS: Temperature 97.7, pulse 77, respiratory rate 15, blood pressure 132/65, oxygen saturation 96% on room air. GENERAL: Alert, awake female in moderate distress because of pain in her finger. Alert, awake and comfortable. HEENT: Normocephalic, atraumatic, anicteric, no thrush. Oral mucosa moist. NECK: Supple. LUNGS: Decreased breath sounds at the bases, nonlabored. HEART: S1, S2. RRR. ABDOMEN: Soft, nontender. Bowel sounds present. GENITOURINARY: No Calvillo. EXTREMITIES: Bilateral BKA stump healthy, necrotic tip right third finger. No generalized rash. NEUROLOGIC: Grossly nonfocal. LABORATORY DATA: WBC 7.4, hemoglobin 9.0, hematocrit 26.5, platelets 232, neutrophils 78. Sodium 138, potassium 4.9, chloride 99, bicarbonate 26, BUN 57, creatinine 5.4, glucose 33, calcium 9.0. COVID PCR negative. Micro, none. IMAGING: Ultrasound of extremity showed no hemodynamic stenosis. Right upper extremity arteriograms demonstrated patency of the right brachiocephalic artery, right subclavian artery, right axillary artery and right brachial artery with mild stenosis in the distal right brachial artery, which is not flow limiting, otherwise no inflow stenosis seen. There is mild stenosis in the distal right brachial artery, which is not flow limiting. Otherwise, no inflow stenosis seen, severe peripheral arterial disease in the forearm and the hand. The right ulnar artery is chronically occluded. The right radial artery is diminutive with areas of tandem high-grade stenosis versus short segment occlusions in the forearm. The right radial artery occludes at the wrist with reconstitution at the level of the first carpometacarpal joint via collateral circulation. The reconstituted right radial artery feeds very small deep and superficial palmar arteries. The interosseous artery is patent without stenosis seen. There is small collateral circulation in the ulnar distribution of the hand/wrist. The majority of the flow in the hand is going towards the third digit with supply of both the radial artery branches as well as interosseous artery branches. Radial and ulnar-sided proper palmar third digital arteries are seen with hyperemia in the proximal third digit. IMPRESSION: 1. Gangrene of the distal right third finger with mild superimposed cellulitis. 2. Right third finger pain from above. 3. End-stage renal disease, on hemodialysis through left upper extremity graft. 4. Peripheral arterial disease. 5. Diabetes mellitus. 6. Peripheral neuropathy. 7. Chronic pain. 8. Fibromyalgia. 9. Hypothyroidism. 10. Hyperparathyroidism. 11. History of congestive heart failure. RECOMMENDATIONS: 1. Continue empiric IV vancomycin and Zosyn. 2. Renal dosing. 3. The patient is scheduled for right third finger amputation tomorrow. 4. Follow up labs and cultures. 5. Continue supportive care. 6. Continue wound care as directed. Thank you Dr. Villeda for consulting Infectious Disease to participate in this patient's care. If you have any questions, do not hesitate to contact me. MERY OROPEZA MD DR: JOSUE/franny JOB#: [id number] / [id number]
[2019-09-25] MEDS: oxyCODONE/APAP 10/325 1 TAB TABLET PO PRN ×3 (00:20→20:05)
[2019-09-25] MEDS: MORPHINE SULFATE 2 MG/ML VIAL. IV PRN ×9 (00:21→22:50)
[2019-09-25 00:59] VITALS: BP 176/62
[2019-09-25 03:17] VITALS: BP 154/51
[2019-09-25] MEDS: PIPERACILLIN/TAZOBACTAM 2.25 GM in IV NORMAL SALINE 50ML 50 ML IV SCH ×3 (05:05→22:49)
[2019-09-25] MEDS: LEVOTHYROXINE 50 MCG TABLET PO SCH (05:06)
[2019-09-25 05:28] LABS: BASO # 0.1 x10^3/uL (0.0-0.2); BASO % 1 % (0-3); EOS % 0 % (0-3); HEMATOCRIT 26.1 % (36.0-47.0); HEMOGLOBIN 8.9 g/dL (12.0-15.5); LYMPH # 1.3 x10^3/uL (1.0-4.8); LYMPH % 17 % (24-48); MEAN CORPUSCULAR HEMOGLOBIN 31 pg (25-35); MEAN CORPUSCULAR HGB CONC 34 g/dL (31-37); MEAN CORPUSCULAR VOLUME 91 fL (79-100); MONO # 0.7 x10^3/uL (0.0-1.1); MONO % 10 % (0-9); NEUT # 5.4 x10^3/uL (1.8-7.7); NEUT % 72 % (31-73); PLATELET COUNT 262 x10^3/uL (140-400); RED BLOOD COUNT 2.87 x10^6/uL (3.50-5.40); RED CELL DISTRIBUTION WIDTH 17.9 % (11.5-14.5); WHITE BLOOD COUNT 7.5 x10^3/uL (4.0-11.0)
[2019-09-25] MEDS ORDERED: VANCOMYCIN RANDOM LEVEL. MC ONE (06:00)
[2019-09-25 06:28] LABS: ALBUMIN 2.7 g/dL (3.4-5.0); CALCIUM 8.2 mg/dL (8.5-10.1); CREATININE 6.5 mg/dL (0.6-1.0); POTASSIUM 5.6 mmol/L (3.5-5.1)
[2019-09-25 06:29] LABS: PHOSPHORUS 9.4 mg/dL (2.6-4.7)
[2019-09-25 07:00] VITALS: BP 158/80
[2019-09-25] MEDS ORDERED: MORPHINE SULFATE 2 MG/ML VIAL. IV PRN ×2 (07:00)
[2019-09-25] MEDS ORDERED: LIDOCAINE 1% PF 2 ML VIAL. ID PRN ×2 (07:00)
[2019-09-25] MEDS ORDERED: HYDROmorphone 2 MG/ML VIAL IV PRN ×2 (07:00)
[2019-09-25] MEDS ORDERED: fentaNYL PF VIAL 100 MCG/2 ML VIAL IV PRN ×3 (07:00)
[2019-09-25] MEDS ORDERED: ONDANSETRON PF 4 MG/2 ML VIAL. IV PRN ×2 (07:00)
[2019-09-25] MEDS ORDERED: IV RINGERS,LACTATED 1000ML 1,000 ML IV SCH ×2 (07:00)
[2019-09-25] MEDS ORDERED: PROCHLORPERAZINE 10 MG/2 ML VIAL. IV PRN ×2 (07:00)
[2019-09-25] MEDS: PANTOPRAZOLE 40 MG TABLET.DR. PO SCH (07:30)
[2019-09-25] MEDS ORDERED: IV NORMAL SALINE 1000ML BAG 1,000 ML IV PRN ×2 (07:42)
[2019-09-25] MEDS: IV DEXTROSE 10% 1,000 ML IV SCH ×2 (07:45→22:52)
[2019-09-25] MEDS ORDERED: ALBUMIN HUMAN 25% 200 ML IV PRN (07:45)
[2019-09-25] MEDS ORDERED: DIALYSIS PATIENT. MC PRN ×2 (07:45)
[2019-09-25] MEDS: CARVEDILOL 6.25 MG TABLET. PO SCH ×2 (07:50→17:44)
[2019-09-25] MEDS: CLOPIDOGREL BISULFATE 75 MG TABLET PO SCH (07:50)
[2019-09-25] MEDS: buPROPion XL 150 MG TAB.ER.24H. PO SCH (07:51)
--- NOTE | 2019-09-25 08:20 | PDOC ---
Provider Note Provider Note late entry foe exam done on september 23 id consult dictated on 09/23 Justicifation of Admission Dx: Justifications for Admission: Justification of Admission Dx: Yes SHANDA YATES MD Sep 25, 2019 08:20
[2019-09-25] MEDS: amLODIPine BESYLATE 10 MG TABLET PO SCH (09:00)
[2019-09-25] MEDS: LISINOPRIL 20 MG TABLET PO SCH (09:00)
[2019-09-25] MEDS: SERTRALINE 50 MG TABLET. PO SCH (09:00)
[2019-09-25] MEDS: hydrALAZINE 25 MG TABLET PO SCH ×3 (09:00→20:36)
[2019-09-25] MEDS: FOLIC/VIT B COMP W-C (RENAL) TABLET. PO SCH (09:00)
[2019-09-25] MEDS: LACTOBACILLUS RHAMNOSUS GG 1 CAPSULE. PO SCH ×2 (09:00→20:36)
--- NOTE | 2019-09-25 09:10 | CONS ---
DATE OF CONSULTATION: 09/24/2019 REFERRING PHYSICIAN: Dr. Villeda. REASON FOR CONSULTATION: Right third finger necrosis with swelling. HISTORY OF PRESENT ILLNESS: A 59-year-old female with end-stage renal disease, on hemodialysis; hypertension; diabetes mellitus; bilateral below-knee amputation; chronic pain; neuropathy, presented to the ER with confusion and pain in the right distal middle finger, which started several days prior to admission. The patient is not a good historian, history obtained from chart and medical staff. The patient's temperature was 98 degrees, oxygen saturation 94% on room air. White count was 7.4, hemoglobin 9.0, hematocrit 26.5, platelets 232. Sodium 137, potassium 7.4, chloride 101, bicarbonate 20, BUN 92, creatinine 8.0, calcium 8.1, alkaline phosphatase 125, total protein 6.3. PCR negative. X-ray of the finger showed severe calcific atherosclerosis and degenerative changes of the wrist and hand, soft tissue defect is seen in the third digit overlying the distal phalanx with air in the soft tissue, could be secondary to an ulcer within the region. Soft tissue infection could have this appearance. This also extends towards the level of the cortex of the distal phalanx, and therefore, the patient would be at high risk for osteomyelitis. The patient continues to have pain. She undergoes dialysis through the left upper extremity AV shunt. She denies any recent procedure on the right arm. PAST MEDICAL HISTORY: End-stage renal disease, on hemodialysis; hypertension; hyperlipidemia; peripheral neuropathy; chronic pain; bipolar disorder; fibromyalgia; diabetes; hypothyroidism; congestive heart failure; asthma. PAST SURGICAL HISTORY: Bilateral below-knee amputation, left upper arm AV graft placement, hysterectomy, angiogram. FAMILY HISTORY: As per HPI. SOCIAL HISTORY: Smoker. No alcohol. Daughter is involved with her care. CURRENT MEDICATIONS: Vancomycin, Zosyn, morphine, fentanyl, Zofran, Dilaudid, lidocaine, famotidine, ____, Glucagon p.r.n., levothyroxine, latanoprost, lactobacillus, Lipitor, carvedilol, pantoprazole, hydralazine, sertraline, lisinopril, vitamin B complex, clopidogrel, clonidine, amlodipine, prochlorperazine, guaifenesin, albuterol sulfate. ALLERGIES: No known drug allergies. REVIEW OF SYSTEMS: Negative, though limited except for above in HPI. PHYSICAL EXAMINATION: VITAL SIGNS: Temperature 97.7, pulse 77, respiratory rate 15, blood pressure 132/65, oxygen saturation 96% on room air. GENERAL: Alert, awake female in moderate distress because of pain in her finger. Alert, awake and comfortable. HEENT: Normocephalic, atraumatic, anicteric, no thrush. Oral mucosa moist. NECK: Supple. LUNGS: Decreased breath sounds at the bases, nonlabored. HEART: S1, S2. RRR. ABDOMEN: Soft, nontender. Bowel sounds present. GENITOURINARY: No Calvillo. EXTREMITIES: Bilateral BKA stump healthy, necrotic tip right third finger. No generalized rash. NEUROLOGIC: Grossly nonfocal. LABORATORY DATA: WBC 7.4, hemoglobin 9.0, hematocrit 26.5, platelets 232, neutrophils 78. Sodium 138, potassium 4.9, chloride 99, bicarbonate 26, BUN 57, creatinine 5.4, glucose 33, calcium 9.0. COVID PCR negative. Micro, none. IMAGING: Ultrasound of extremity showed no hemodynamic stenosis. Right upper extremity arteriograms demonstrated patency of the right brachiocephalic artery, right subclavian artery, right axillary artery and right brachial artery with mild stenosis in the distal right brachial artery, which is not flow limiting, otherwise no inflow stenosis seen. There is mild stenosis in the distal right brachial artery, which is not flow limiting. Otherwise, no inflow stenosis seen, severe peripheral arterial disease in the forearm and the hand. The right ulnar artery is chronically occluded. The right radial artery is diminutive with areas of tandem high-grade stenosis versus short segment occlusions in the forearm. The right radial artery occludes at the wrist with reconstitution at the level of the first carpometacarpal joint via collateral circulation. The reconstituted right radial artery feeds very small deep and superficial palmar arteries. The interosseous artery is patent without stenosis seen. There is small collateral circulation in the ulnar distribution of the hand/wrist. The majority of the flow in the hand is going towards the third digit with supply of both the radial artery branches as well as interosseous artery branches. Radial and ulnar-sided proper palmar third digital arteries are seen with hyperemia in the proximal third digit. IMPRESSION: 1. Gangrene of the distal right third finger with mild superimposed cellulitis. 2. Right third finger pain from above. 3. End-stage renal disease, on hemodialysis through left upper extremity graft. 4. Peripheral arterial disease. 5. Diabetes mellitus. 6. Peripheral neuropathy. 7. Chronic pain. 8. Fibromyalgia. 9. Hypothyroidism. 10. Hyperparathyroidism. 11. History of congestive heart failure. RECOMMENDATIONS: 1. Continue empiric IV vancomycin and Zosyn. Renal dosing. 2. Continue local wound care 3. The patient is scheduled for right third finger amputation tomorrow. 4. Follow up labs and cultures. 5. Continue supportive care. Thank you Dr. Villeda for consulting Infectious Disease to participate in this patient's care. If you have any questions, do not hesitate to contact me. SHANDA YATES MD DR: JEREMI/franny JOB#: [id number] / [id number] MOJGAN
[2019-09-25] MEDS: VANCOMYCIN PER PHARMACY MC PRN (09:40)
--- NOTE | 2019-09-25 09:42 | NUR ---
Pharmacy Vancomycin Dosing Note S:Consulted to monitor and dose vancomycin started 09/24/19. O:OTTONIEL SMITH is a 59 year old F with Cellulitis VS OSTEO; WILL TREAT OSTEO FOR NOW . Height: 4 feet, 0 inches Weight: 47.1 kg Kell Body Weight: 17.90 Adjusted Body Weight: 29.58 Dosing Weight: Actual Other Antibiotics: ZOSYN 09/22 - LABS: Last BUN: 57 Last Creatinine: 5.4 Creatinine Clearance: HD MWF mL/min Last WBC: 7.4 Last Procalcitonin: - Tmax (past 24 hours): 98.4 Microbiology: 09/23 PENDING I/O: Drug Levels: Last Random level: 13.1 on 09/25/19 at 0600 Last dose given 09/23/19 at 0001 Vancomycin Dosing: Loading Dose: x1 Dosing Weight: Actual Target Trough: 15-20 A: Based on: LEVEL P: 1. Begin Vancomycin 500 mg IV MWF AFTER DIALYSIS 2. Follow up Random level on NEEDED 3. Pharmacy will continue to monitor, follow and adjust therapy as needed. ALEXANDRO DELACRUZ RPH, 09/25/19 0920
--- NOTE | 2019-09-25 10:04 | PDOC ---
Infectious Disease Note Subjective: Subjective Patient complains of pain in the right third finger Denies fever, chills, nausea, vomiting, diarrhea, abdominal pain Vital Signs: Vital Signs Vital Signs Date Time Temp Pulse Resp B/P (MAP) Pulse Ox O2 Delivery O2 Flow Rate FiO2 09/25/19 09:32 91 Room Air 09/25/19 07:00 68 20 158/80 (106) 09/25/19 03:17 98.1 98.1 Physical Exam: PHYSICAL EXAM GENERAL: Alert, awake female sitting in bed talking on phone finger. Alert, awake and comfortable. HEENT: Normocephalic, atraumatic, anicteric, no thrush. Oral mucosa moist. NECK: Supple. LUNGS: Decreased breath sounds at the bases, nonlabored. HEART: S1, S2. RRR. ABDOMEN: Soft, nontender. Bowel sounds present. GENITOURINARY: No Calvillo. EXTREMITIES: Bilateral BKA stump healthy, necrotic tip right third finger. No generalized rash. NEUROLOGIC: Grossly nonfocal. Medications: Inpatient Meds: Current Medications Medications (Trade) Dose Ordered Sig/Clarence Start Time Stop Time Status Last Admin Dose Admin Acetaminophen/ Hydrocodone Bitart (Lortab 5/325) 1 tab PRN Q6HRS PRN 09/23/19 12:45 09/24/19 10:14 DC 09/24/19 08:32 1 TAB Albumin Human 200 ml @ 200 mls/hr 1X PRN PRN 09/25/19 07:45 09/25/19 13:44 Albuterol Sulfate (Ventolin Neb Soln) 2.5 mg PRN BID PRN 09/23/19 12:45 Amlodipine Besylate (Norvasc) 10 mg DAILY 09/23/19 13:00 09/24/19 19:03 10 MG Amylase/Lipase/ Protease (Zenpep 5,000) 1 cap TIDWMEALS 09/23/19 17:00 Atorvastatin Calcium (Lipitor) 40 mg HS 09/23/19 21:00 09/24/19 22:19 40 MG Bupropion HCl (Wellbutrin Xl) 300 mg DAILYWBKFT 09/24/19 08:00 Calcium Gluconate (Calcium Gluconate) 1,000 mg 1X ONCE 09/23/19 00:30 09/23/19 00:31 DC 09/23/19 01:00 1,000 MG Carvedilol (Coreg) 12.5 mg BIDWMEALS 09/23/19 17:00 09/24/19 19:02 12.5 MG Cefazolin Sodium 1 gm/Sodium Chloride 500 ml @ 500 mls/hr 1X ONCE 09/25/19 09:00 09/25/19 09:59 DC Clonidine HCl (Catapres Tts-2) 1 patch WEEKLY 09/23/19 13:00 09/23/19 21:00 1 PATCH Clopidogrel Bisulfate (Plavix) 75 mg DAILYWBKFT 09/23/19 13:00 Dextrose (Dextrose 50%-Water Syringe) 25 gm STK-MED ONCE 09/24/19 15:19 09/24/19 15:19 DC Famotidine (Pepcid) 40 mg QODAY 09/24/19 09:00 Fentanyl Citrate (Fentanyl 2ml Vial) 50 mcg PRN Q5MIN PRN 09/24/19 18:00 09/25/19 17:59 Glucagon (Glucagen) 1 mg PRN Q15MIN PRN 09/24/19 06:45 09/24/19 11:25 1 MG Glucose (Insta-Glucose) 15 gm PRN Q15MIN PRN 09/24/19 06:45 Guaifenesin (Robitussin Dm) 10 ml PRN Q6HRS PRN 09/23/19 12:45 Heparin Sodium (Porcine) (Heparin Sodium) 2,000 unit 1X ONCE 09/25/19 09:30 09/25/19 09:31 DC Heparin Sodium/ Sodium Chloride 500 ml @ As Directed STK-MED ONCE 09/24/19 16:49 09/24/19 16:49 DC Heparin Sodium/ Sodium Chloride (HEPARIN for ARTERIAL LINE FLUSH) 1,000 unit 1X ONCE 09/24/19 16:15 09/24/19 16:16 DC 09/24/19 17:07 1,000 UNIT Hydralazine HCl (Apresoline) 25 mg TID 09/23/19 14:00 09/24/19 22:19 25 MG Hydromorphone HCl (Dilaudid) 0.5 mg PRN Q10MIN PRN 09/24/19 18:00 09/25/19 17:59 Info (PHARMACY MONITORING -- do not chart) 1 each PRN DAILY PRN 09/25/19 07:45 UNV Insulin Human Regular (HumuLIN R VIAL) 10 unit 1X ONCE 09/23/19 00:30 09/23/19 00:31 DC 09/23/19 00:59 10 UNIT Iodixanol (Visipaque 320) 100 ml 1X ONCE 09/24/19 16:15 09/24/19 16:16 DC 09/24/19 17:05 86 ML Lactobacillus Rhamnosus (Culturelle) 1 cap BID 09/23/19 21:00 09/24/19 22:19 1 CAP Latanoprost (Xalatan) 1 drop HS 09/23/19 21:00 09/23/19 20:39 1 DROP Levothyroxine Sodium (Synthroid) 50 mcg DAILY06 09/24/19 06:00 09/25/19 05:06 50 MCG Lidocaine HCl (Buffered Lidocaine 1%) 3 ml 1X ONCE 09/24/19 16:15 09/24/19 16:16 DC 09/24/19 16:15 5 ML Lidocaine HCl (Lidocaine Pf 2% Vial) 5 ml STK-MED ONCE 09/24/19 15:15 09/24/19 15:16 DC Lidocaine HCl (Xylocaine-Mpf 1% 2ml Vial) 2 ml PRN 1X PRN 09/24/19 18:00 09/25/19 17:59 Lisinopril (Prinivil) 20 mg DAILY 09/23/19 13:00 09/24/19 19:02 20 MG Morphine Sulfate (Morphine Sulfate) 2 mg PRN Q2HR PRN 09/24/19 18:45 09/25/19 07:45 2 MG Nitroglycerin (Nitroglycerin) 200 mcg 1X ONCE 09/24/19 16:45 09/24/19 16:46 DC 09/24/19 17:08 200 MCG Ondansetron HCl (Zofran Odt) 4 mg PRN Q6HRS PRN 09/23/19 12:45 Ondansetron HCl (Zofran) 4 mg PRN Q6HRS PRN 09/24/19 18:00 09/25/19 17:59 Oxycodone/ Acetaminophen (Percocet 10/325) 1 tab PRN Q4HRS PRN 09/24/19 10:15 09/25/19 05:06 1 TAB Pantoprazole Sodium (Protonix) 40 mg DAILYAC 09/23/19 16:30 Piperacillin Sod/ Tazobactam Sod (Zosyn Per Pharmacy) 1 each PRN DAILY PRN 09/24/19 09:00 Piperacillin Sod/ Tazobactam Sod 2.25 gm/Sodium Chloride 50 ml @ 100 mls/hr Q8HRS 09/24/19 10:00 09/25/19 05:05 100 MLS/HR Prochlorperazine Edisylate (Compazine) 5 mg PACU PRN PRN 09/24/19 18:00 09/25/19 17:59 Prochlorperazine Maleate (Compazine) 5 mg PRN TID PRN 09/23/19 12:45 Propofol (Diprivan) 200 mg STK-MED ONCE 09/24/19 15:15 09/24/19 15:16 DC Ringer's Solution 1,000 ml @ 30 mls/hr Q24H 09/24/19 17:51 09/25/19 05:50 DC Sertraline HCl (Zoloft) 50 mg DAILY 09/23/19 13:00 Sodium Polystyrene Sulfonate (Kayexalate) 30 gm 1X ONCE 09/23/19 00:30 09/23/19 00:31 DC Sodium Chloride 1,000 ml @ 400 mls/hr Q2H30M PRN 09/25/19 07:42 09/25/19 19:41 Vancomycin HCl (Vanco Per Pharmacy) 1 each PRN DAILY PRN 09/24/19 09:00 09/25/19 09:40 1 EACH Vancomycin HCl (Vancomycin Random Level) 1 each 1X ONCE 09/25/19 06:00 09/25/19 06:01 DC Vancomycin HCl 1.25 gm/Sodium Chloride 250 ml @ 166.667 mls/hr 1X ONCE 09/22/19 23:15 09/23/19 00:44 DC 09/23/19 00:02 166.667 MLS/HR Vancomycin HCl 500 mg/Sodium Chloride 100 ml @ 100 mls/hr QMWF 09/25/19 16:00 Vitamin B Complex/ Vitamin C (Pinky-Shreya) 1 tab DAILY 09/23/19 13:00 Labs: Lab Laboratory Tests Test 09/24/19 11:16 09/24/19 11:47 09/24/19 15:18 09/24/19 15:20 Glucose (Fingerstick) 34 mg/dL (70-99) 54 mg/dL (70-99) 23 mg/dL (70-99) Glucose Level 30 mg/dL (70-99) Test 09/24/19 15:48 09/24/19 16:56 09/24/19 17:40 09/24/19 20:38 Glucose (Fingerstick) 127 mg/dL (70-99) 119 mg/dL (70-99) 102 mg/dL (70-99) 142 mg/dL (70-99) Test 09/25/19 02:50 09/25/19 05:15 09/25/19 07:15 Glucose (Fingerstick) 259 mg/dL (70-99) 177 mg/dL (70-99) White Blood Count 7.5 x10^3/uL (4.0-11.0) Red Blood Count 2.87 x10^6/uL (3.50-5.40) Hemoglobin 8.9 g/dL (12.0-15.5) Hematocrit 26.1 % (36.0-47.0) Mean Corpuscular Volume 91 fL (79-100) Mean Corpuscular Hemoglobin 31 pg (25-35) Mean Corpuscular Hemoglobin Concent 34 g/dL (31-37) Red Cell Distribution Width 17.9 % (11.5-14.5) Platelet Count 262 x10^3/uL (140-400) Neutrophils (%) (Auto) 72 % (31-73) Lymphocytes (%) (Auto) 17 % (24-48) Monocytes (%) (Auto) 10 % (0-9) Eosinophils (%) (Auto) 0 % (0-3) Basophils (%) (Auto) 1 % (0-3) Neutrophils # (Auto) 5.4 x10^3/uL (1.8-7.7) Lymphocytes # (Auto) 1.3 x10^3/uL (1.0-4.8) Monocytes # (Auto) 0.7 x10^3/uL (0.0-1.1) Eosinophils # (Auto) 0.0 x10^3/uL (0.0-0.7) Basophils # (Auto) 0.1 x10^3/uL (0.0-0.2) Sodium Level 134 mmol/L (136-145) Potassium Level 5.6 mmol/L (3.5-5.1) Chloride Level 95 mmol/L (98-107) Carbon Dioxide Level 28 mmol/L (21-32) Anion Gap 11 (6-14) Blood Urea Nitrogen 76 mg/dL (7-20) Creatinine 6.5 mg/dL (0.6-1.0) Estimated GFR (Cockcroft-Gault) 8.0 Glucose Level 229 mg/dL (70-99) Calcium Level 8.2 mg/dL (8.5-10.1) Phosphorus Level 9.4 mg/dL (2.6-4.7) Albumin 2.7 g/dL (3.4-5.0) Random Vancomycin Level 13.1 mcg/mL Objective: Assessment: 1. Gangrene of the distal right third finger with mild superimposed cellulitis. 2. Right third finger pain from above. 3. End-stage renal disease, on hemodialysis through left upper extremity graft. 4. Peripheral arterial disease. 5. Diabetes mellitus. 6. Peripheral neuropathy. 7. Chronic pain. 8. Fibromyalgia. 9. Hypothyroidism. 10. Hyperparathyroidism. 11. History of congestive heart failure. Plan: Plan of Care Continue empiric IV vancomycin and Zosyn. Vascular plans noted follow up labs and cultures. Continue wound care as directed. SHANDA YATES MD Sep 25, 2019 10:04
--- NOTE | 2019-09-25 10:45 | PDOC ---
SUBJECTIVE ROS No complaints on HD, had to stop HD after an hr sec to Malfunction AV access- Clots OBJECTIVE Vital Signs Vital Signs Date Time Temp Pulse Resp B/P (MAP) Pulse Ox O2 Delivery O2 Flow Rate FiO2 09/25/19 09:32 91 Room Air 09/25/19 07:00 68 20 158/80 (106) 09/25/19 03:17 98.1 98.1 I & 0 Intake and Output 09/25/19 07:00 Intake Total 400 ml Output Total 1 ml Balance 399 ml Intake Oral 400 ml Output Urine Total 1 ml # Voids 1 PHYSICAL EXAM Physical Exam General: NAD HEENT: PERRLA, OM moist Neck Supple Lungs: dec BS , Non labored Heart: S1S2, RRR, n Abdomen: Normal bowel sounds, Soft, No tenderness, No Calvillo Extremities: Bila BKA , Necrotic tip Rt middle finger , AVF + Skin: No rash Neuro- Grossly Normal DIAGNOSIS/ASSESSMENT Assessment & Plan ESRD - On HD MWF Seen on HD, tolerating well, after an hr had to stopm 2/2 AV access issues Dw Vascular- recommend Declotting , will schedule for Hd again tomorrow ACcess- AV access Lt HyperKalemia- K 7.4 at presentation - Chronic Non compliance with HD and diet K Mildly high today, recommend kayexalate if persists, recieved an hr of HD Right 3rd finger gangrene and pain Arterial US, angiogram per vascular ,Plan for amputation today with Dr. Villeda AVG placed in September 2018 at [facility] - Left upper arm brachial artery to brachial vein arterial to venous graft placement using PTFE graft. 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 COMMENT/RELEVANT DATA Meds Current Medications Medications (Trade) Dose Ordered Sig/Clarence Start Time Stop Time Status Last Admin Dose Admin Acetaminophen/ Hydrocodone Bitart (Lortab 5/325) 1 tab PRN Q6HRS PRN 09/23/19 12:45 09/24/19 10:14 DC 09/24/19 08:32 1 TAB Albumin Human 200 ml @ 200 mls/hr 1X PRN PRN 09/25/19 07:45 09/25/19 13:44 Albuterol Sulfate (Ventolin Neb Soln) 2.5 mg PRN BID PRN 09/23/19 12:45 Amlodipine Besylate (Norvasc) 10 mg DAILY 09/23/19 13:00 09/24/19 19:03 10 MG Amylase/Lipase/ Protease (Zenpep 5,000) 1 cap TIDWMEALS 09/23/19 17:00 Atorvastatin Calcium (Lipitor) 40 mg HS 09/23/19 21:00 09/24/19 22:19 40 MG Bupropion HCl (Wellbutrin Xl) 300 mg DAILYWBKFT 09/24/19 08:00 Calcium Gluconate (Calcium Gluconate) 1,000 mg 1X ONCE 09/23/19 00:30 09/23/19 00:31 DC 09/23/19 01:00 1,000 MG Carvedilol (Coreg) 12.5 mg BIDWMEALS 09/23/19 17:00 09/24/19 19:02 12.5 MG Cefazolin Sodium 1 gm/Sodium Chloride 500 ml @ 500 mls/hr 1X ONCE 09/25/19 09:00 09/25/19 09:59 DC Clonidine HCl (Catapres Tts-2) 1 patch WEEKLY 09/23/19 13:00 09/23/19 21:00 1 PATCH Clopidogrel Bisulfate (Plavix) 75 mg DAILYWBKFT 09/23/19 13:00 Dextrose (Dextrose 50%-Water Syringe) 25 gm STK-MED ONCE 09/24/19 15:19 09/24/19 15:19 DC Famotidine (Pepcid) 40 mg QODAY 09/24/19 09:00 Fentanyl Citrate (Fentanyl 2ml Vial) 50 mcg PRN Q5MIN PRN 09/24/19 18:00 09/25/19 17:59 Glucagon (Glucagen) 1 mg PRN Q15MIN PRN 09/24/19 06:45 09/24/19 11:25 1 MG Glucose (Insta-Glucose) 15 gm PRN Q15MIN PRN 09/24/19 06:45 Guaifenesin (Robitussin Dm) 10 ml PRN Q6HRS PRN 09/23/19 12:45 Heparin Sodium (Porcine) (Heparin Sodium) 2,000 unit 1X ONCE 09/25/19 09:30 09/25/19 09:31 DC Heparin Sodium/ Sodium Chloride 500 ml @ As Directed STK-MED ONCE 09/24/19 16:49 09/24/19 16:49 DC Heparin Sodium/ Sodium Chloride (HEPARIN for ARTERIAL LINE FLUSH) 1,000 unit 1X ONCE 09/24/19 16:15 09/24/19 16:16 DC 09/24/19 17:07 1,000 UNIT Hydralazine HCl (Apresoline) 25 mg TID 09/23/19 14:00 09/24/19 22:19 25 MG Hydromorphone HCl (Dilaudid) 0.5 mg PRN Q10MIN PRN 09/24/19 18:00 09/25/19 17:59 Info (PHARMACY MONITORING -- do not chart) 1 each PRN DAILY PRN 09/25/19 07:45 UNV Insulin Human Regular (HumuLIN R VIAL) 10 unit 1X ONCE 09/23/19 00:30 09/23/19 00:31 DC 09/23/19 00:59 10 UNIT Iodixanol (Visipaque 320) 100 ml 1X ONCE 09/24/19 16:15 09/24/19 16:16 DC 09/24/19 17:05 86 ML Lactobacillus Rhamnosus (Culturelle) 1 cap BID 09/23/19 21:00 09/24/19 22:19 1 CAP Latanoprost (Xalatan) 1 drop HS 09/23/19 21:00 09/23/19 20:39 1 DROP Levothyroxine Sodium (Synthroid) 50 mcg DAILY06 09/24/19 06:00 09/25/19 05:06 50 MCG Lidocaine HCl (Buffered Lidocaine 1%) 3 ml 1X ONCE 09/24/19 16:15 09/24/19 16:16 DC 09/24/19 16:15 5 ML Lidocaine HCl (Lidocaine Pf 2% Vial) 5 ml STK-MED ONCE 09/24/19 15:15 09/24/19 15:16 DC Lidocaine HCl (Xylocaine-Mpf 1% 2ml Vial) 2 ml PRN 1X PRN 09/24/19 18:00 09/25/19 17:59 Lisinopril (Prinivil) 20 mg DAILY 09/23/19 13:00 09/24/19 19:02 20 MG Morphine Sulfate (Morphine Sulfate) 2 mg PRN Q2HR PRN 09/24/19 18:45 09/25/19 07:45 2 MG Nitroglycerin (Nitroglycerin) 200 mcg 1X ONCE 09/24/19 16:45 09/24/19 16:46 DC 09/24/19 17:08 200 MCG Ondansetron HCl (Zofran Odt) 4 mg PRN Q6HRS PRN 09/23/19 12:45 Ondansetron HCl (Zofran) 4 mg PRN Q6HRS PRN 09/24/19 18:00 09/25/19 17:59 Oxycodone/ Acetaminophen (Percocet 10/325) 1 tab PRN Q4HRS PRN 09/24/19 10:15 09/25/19 05:06 1 TAB Pantoprazole Sodium (Protonix) 40 mg DAILYAC 09/23/19 16:30 Piperacillin Sod/ Tazobactam Sod (Zosyn Per Pharmacy) 1 each PRN DAILY PRN 09/24/19 09:00 Piperacillin Sod/ Tazobactam Sod 2.25 gm/Sodium Chloride 50 ml @ 100 mls/hr Q8HRS 09/24/19 10:00 09/25/19 05:05 100 MLS/HR Prochlorperazine Edisylate (Compazine) 5 mg PACU PRN PRN 09/24/19 18:00 09/25/19 17:59 Prochlorperazine Maleate (Compazine) 5 mg PRN TID PRN 09/23/19 12:45 Propofol (Diprivan) 200 mg STK-MED ONCE 09/24/19 15:15 09/24/19 15:16 DC Ringer's Solution 1,000 ml @ 30 mls/hr Q24H 09/24/19 17:51 09/25/19 05:50 DC Sertraline HCl (Zoloft) 50 mg DAILY 09/23/19 13:00 Sodium Polystyrene Sulfonate (Kayexalate) 30 gm 1X ONCE 09/23/19 00:30 09/23/19 00:31 DC Sodium Chloride 1,000 ml @ 400 mls/hr Q2H30M PRN 09/25/19 07:42 09/25/19 19:41 Vancomycin HCl (Vanco Per Pharmacy) 1 each PRN DAILY PRN 09/24/19 09:00 09/25/19 09:40 1 EACH Vancomycin HCl (Vancomycin Random Level) 1 each 1X ONCE 09/25/19 06:00 09/25/19 06:01 DC 09/25/19 06:00 1 EACH Vancomycin HCl 1.25 gm/Sodium Chloride 250 ml @ 166.667 mls/hr 1X ONCE 09/22/19 23:15 09/23/19 00:44 DC 09/23/19 00:02 166.667 MLS/HR Vancomycin HCl 500 mg/Sodium Chloride 100 ml @ 100 mls/hr QMWF 09/25/19 16:00 Vitamin B Complex/ Vitamin C (Pinky-Shreya) 1 tab DAILY 09/23/19 13:00 Lab Laboratory Tests Test 09/24/19 11:16 09/24/19 11:47 09/24/19 15:18 09/24/19 15:20 Glucose (Fingerstick) 34 mg/dL (70-99) 54 mg/dL (70-99) 23 mg/dL (70-99) Glucose Level 30 mg/dL (70-99) Test 09/24/19 15:48 09/24/19 16:56 09/24/19 17:40 09/24/19 20:38 Glucose (Fingerstick) 127 mg/dL (70-99) 119 mg/dL (70-99) 102 mg/dL (70-99) 142 mg/dL (70-99) Test 09/25/19 02:50 09/25/19 05:15 09/25/19 07:15 Glucose (Fingerstick) 259 mg/dL (70-99) 177 mg/dL (70-99) White Blood Count 7.5 x10^3/uL (4.0-11.0) Red Blood Count 2.87 x10^6/uL (3.50-5.40) Hemoglobin 8.9 g/dL (12.0-15.5) Hematocrit 26.1 % (36.0-47.0) Mean Corpuscular Volume 91 fL (79-100) Mean Corpuscular Hemoglobin 31 pg (25-35) Mean Corpuscular Hemoglobin Concent 34 g/dL (31-37) Red Cell Distribution Width 17.9 % (11.5-14.5) Platelet Count 262 x10^3/uL (140-400) Neutrophils (%) (Auto) 72 % (31-73) Lymphocytes (%) (Auto) 17 % (24-48) Monocytes (%) (Auto) 10 % (0-9) Eosinophils (%) (Auto) 0 % (0-3) Basophils (%) (Auto) 1 % (0-3) Neutrophils # (Auto) 5.4 x10^3/uL (1.8-7.7) Lymphocytes # (Auto) 1.3 x10^3/uL (1.0-4.8) Monocytes # (Auto) 0.7 x10^3/uL (0.0-1.1) Eosinophils # (Auto) 0.0 x10^3/uL (0.0-0.7) Basophils # (Auto) 0.1 x10^3/uL (0.0-0.2) Sodium Level 134 mmol/L (136-145) Potassium Level 5.6 mmol/L (3.5-5.1) Chloride Level 95 mmol/L (98-107) Carbon Dioxide Level 28 mmol/L (21-32) Anion Gap 11 (6-14) Blood Urea Nitrogen 76 mg/dL (7-20) Creatinine 6.5 mg/dL (0.6-1.0) Estimated GFR (Cockcroft-Gault) 8.0 Glucose Level 229 mg/dL (70-99) Calcium Level 8.2 mg/dL (8.5-10.1) Phosphorus Level 9.4 mg/dL (2.6-4.7) Albumin 2.7 g/dL (3.4-5.0) Random Vancomycin Level 13.1 mcg/mL Results All relevant outside records, renal labs, imaging studies, telemetry/EKG's were reviewed. Justicifation of Admission Dx: Justifications for Admission: Justification of Admission Dx: Yes DOMINIQUE TSE MD Sep 25, 2019 10:45
[2019-09-25 11:00] VITALS: BP 88/66
--- NOTE | 2019-09-25 12:15 | PDOC ---
[employer] PROGRESS NOTE Chief Complaint Chief Complaint Acute encephalopathy secondary to metabolic etiology with hypoglycemia Right middle finger pain - dry gangrene, likely will auto-amputate, no sign of active infection. Hyperkalemia - K 7.4 ESRD - MWF [facility] patient. Fistula functioning again now. She is very intermittently compliant. Acute on chronic diastolic CHF - with elevated BNP and CXR findings concerning Accelerated HTN: labile Anasarca Noncompliance: missed dialysis, no transport. Suspect missed meds as well. Hx of severe LE PAD - S/P bilateral BKA. more recent to left leg, incision intact Debility HX NONCOMPLIANCE Anxiety Chronic back pain Chronic anemia Elevated liver function tests Depression sec to med illness History of diabetes mellitus type 2 History of hypothyroidism Chronic pain syndrome History of bilateral BKA History of Present Illness History of Present Illness 09/25/2019 Patient seen and examined She is currently on dialysis Surgery is scheduled for this afternoon I believe Discussed with RN Chart reviewed 09/24/2019 Patient seen and examined She complains of finger pain Discussed with nurse Chart reviewed We are having a difficult time getting IV access Vitals/I&O Vitals/I&O: Vital Signs Date Time Temp Pulse Resp B/P (MAP) Pulse Ox O2 Delivery O2 Flow Rate FiO2 09/25/19 11:00 67 18 88/66 (73) 94 Room Air 09/25/19 03:17 98.1 98.1 I & O 09/24/19 09/24/19 09/25/19 15:00 23:00 07:00 Intake Total 0 ml 400 ml Output Total 1 ml Balance 0 ml 399 ml Physical Exam Physical Exam: GENERAL: Alert, awake female sitting in bed talking on phone finger. Alert, awake and comfortable. HEENT: Normocephalic, atraumatic, anicteric, no thrush. Oral mucosa moist. NECK: Supple. LUNGS: Decreased breath sounds at the bases, nonlabored. HEART: S1, S2. RRR. ABDOMEN: Soft, nontender. Bowel sounds present. GENITOURINARY: No Calvillo. EXTREMITIES: Bilateral BKA stump healthy, necrotic tip right third finger. No generalized rash. NEUROLOGIC: Grossly nonfocal. General: Alert, moderate distress Lungs: Clear Abdomen: Normal bowel sounds, Soft, No tenderness, No hepatosplenomegaly, No masses Extremities: Other (The right third finger is gangrenous from the DIP on out) Skin: Other (BIlateral BKA, right middle finger necrotic, dry) Labs Labs: Laboratory Tests Test 09/24/19 15:18 09/24/19 15:20 09/24/19 15:48 09/24/19 16:56 Glucose (Fingerstick) 23 mg/dL (70-99) 127 mg/dL (70-99) 119 mg/dL (70-99) Glucose Level 30 mg/dL (70-99) Test 09/24/19 17:40 09/24/19 20:38 09/25/19 02:50 09/25/19 05:15 Glucose (Fingerstick) 102 mg/dL (70-99) 142 mg/dL (70-99) 259 mg/dL (70-99) White Blood Count 7.5 x10^3/uL (4.0-11.0) Red Blood Count 2.87 x10^6/uL (3.50-5.40) Hemoglobin 8.9 g/dL (12.0-15.5) Hematocrit 26.1 % (36.0-47.0) Mean Corpuscular Volume 91 fL (79-100) Mean Corpuscular Hemoglobin 31 pg (25-35) Mean Corpuscular Hemoglobin Concent 34 g/dL (31-37) Red Cell Distribution Width 17.9 % (11.5-14.5) Platelet Count 262 x10^3/uL (140-400) Neutrophils (%) (Auto) 72 % (31-73) Lymphocytes (%) (Auto) 17 % (24-48) Monocytes (%) (Auto) 10 % (0-9) Eosinophils (%) (Auto) 0 % (0-3) Basophils (%) (Auto) 1 % (0-3) Neutrophils # (Auto) 5.4 x10^3/uL (1.8-7.7) Lymphocytes # (Auto) 1.3 x10^3/uL (1.0-4.8) Monocytes # (Auto) 0.7 x10^3/uL (0.0-1.1) Eosinophils # (Auto) 0.0 x10^3/uL (0.0-0.7) Basophils # (Auto) 0.1 x10^3/uL (0.0-0.2) Sodium Level 134 mmol/L (136-145) Potassium Level 5.6 mmol/L (3.5-5.1) Chloride Level 95 mmol/L (98-107) Carbon Dioxide Level 28 mmol/L (21-32) Anion Gap 11 (6-14) Blood Urea Nitrogen 76 mg/dL (7-20) Creatinine 6.5 mg/dL (0.6-1.0) Estimated GFR (Cockcroft-Gault) 8.0 Glucose Level 229 mg/dL (70-99) Calcium Level 8.2 mg/dL (8.5-10.1) Phosphorus Level 9.4 mg/dL (2.6-4.7) Albumin 2.7 g/dL (3.4-5.0) Random Vancomycin Level 13.1 mcg/mL Test 09/25/19 07:15 09/25/19 11:41 Glucose (Fingerstick) 177 mg/dL (70-99) 118 mg/dL (70-99) Assessment and Plan Assessmemt and Plan Problems Medical Problems: (1) Osteomyelitis Status: Acute (2) Osteomyelitis of finger Status: Acute Acute encephalopathy secondary to metabolic etiology with hypoglycemia Right middle finger pain - dry gangrene, likely will auto-amputate, no sign of active infection. Hyperkalemia - K 7.4 ESRD - MWF [facility]. Fistula functioning again now. She is very intermittently compliant. Acute on chronic diastolic CHF - with elevated BNP and CXR findings concerning Accelerated HTN: labile Anasarca Noncompliance: missed dialysis, no transport. Suspect missed meds as well. Hx of severe LE PAD - S/P bilateral BKA. more recent to left leg, incision intact Debility HX NONCOMPLIANCE Anxiety Chronic back pain Chronic anemia Elevated liver function tests Depression sec to med illness History of diabetes mellitus type 2 History of hypothyroidism Chronic pain syndrome History of bilateral BKA Plan She is going to the OR for partial finger amputation today Continue dialysis Monday Home meds DVT prophylaxis Full code PRN pain meds Postoperatively she will need aggressive wound care Long-term prognosis guarded Appreciate subspecialist input Comment Review of Relevant I have reviewed the following items pamela (where applicable) has been applied. Medications: Current Medications Medications (Trade) Dose Ordered Sig/Clarence Route PRN Reason Start Time Stop Time Status Last Admin Dose Admin Fentanyl Citrate (Fentanyl 2ml Vial) 50 mcg PRN Q5MIN PRN IV MODERATE TO SEVERE PAIN 09/25/19 07:00 09/26/19 06:59 09/24/19 18:05 Vancomycin HCl (Vancomycin Random Level) 1 each 1X ONCE MC 09/25/19 06:00 09/25/19 06:01 DC 09/25/19 06:00 Heparin Sodium/ Sodium Chloride (HEPARIN for ARTERIAL LINE FLUSH) 1,000 unit 1X ONCE IART 09/24/19 16:15 09/24/19 16:16 DC 09/24/19 17:06 Heparin Sodium/ Sodium Chloride (HEPARIN for ARTERIAL LINE FLUSH) 1,000 unit 1X ONCE IART 09/24/19 16:15 09/24/19 16:16 DC 09/24/19 17:07 Lidocaine HCl (Buffered Lidocaine 1%) 3 ml 1X ONCE IJ 09/24/19 16:15 09/24/19 16:16 DC 09/24/19 16:15 Iodixanol (Visipaque 320) 100 ml 1X ONCE IART 09/24/19 16:15 09/24/19 16:16 DC 09/24/19 17:05 Nitroglycerin (Nitroglycerin) 200 mcg 1X ONCE IART 09/24/19 16:45 09/24/19 16:46 DC 09/24/19 17:08 Morphine Sulfate (Morphine Sulfate) 2 mg PRN Q2HR PRN IV PAIN 09/24/19 18:45 09/25/19 10:42 Justicifation of Admission Dx: Justifications for Admission: Justification of Admission Dx: Yes ANGELINA GOMEZ III DO Sep 25, 2019 12:15
--- NOTE | 2019-09-25 13:25 | NUR ---
SW following. Spoke with RN and reviewed chart. Pt to have surgery today, 09/25/2019 for finger amputation. Pt refusing PT/OT evaluation. Pt noncompliant and plans for discharge home with resumption of Medicaid HCBS and out-patient dialysis. Pt on room air. Pt COVID negative. Pt on IV Vancomycin. SW to continue following.
[2019-09-25] MEDS ORDERED: LIDOCAINE 1% Multi-Dose 20 ML VIAL. INJ ONE (14:05)
--- NOTE | 2019-09-25 14:22 | PDOC ---
BRIEF OPERATIVE NOTE Date: Sep 25, 2019 Pre-Op Diagnosis Right 3rd finger necrosis, arterial insufficiency Post-Op Diagnosis same Procedure Performed Right 3rd finger amputation, closed Surgeon Dr. Villeda Venereal Disease Control Head Nallely Fernandes NP Anesthesia Type: MAC, Local Blood Loss 2cc Specimens Obtained right 3rd finger cultures right 3rd finger Findings some bleeding Complications none Operative Note see dictated note NALLELY FERNANDES [employer]ORCYCLE [employer]DER Sep 25, 2019 14:22
--- NOTE | 2019-09-25 14:54 | OP ---
DATE OF SURGERY: 09/25/2019 SURGEON: Chikis Villeda MD MANAGER HEART FAILURE: Jaz Sanchez, nurse practitioner. PREOPERATIVE DIAGNOSIS: Right third finger gangrene. POSTOPERATIVE DIAGNOSIS: Right third finger gangrene. OPERATION PERFORMED: Partial amputation of the right third finger done in a closed fashion at the level of the middle phalange. ANESTHESIA USED: Monitored sedation. INDICATIONS: The patient is a 59-year-old female with a long history of peripheral arterial disease. She has developed gangrene of her right third distal finger over the past several weeks. This is associated with cellulitis and significant pain in her finger. The gangrene is dry throughout the distal finger and comes back to the area of the distal phalange. She was evaluated with an angiogram of her right arm, which showed significant peripheral arterial disease within her right radial artery and occluded ulnar artery. She does have collateral flow to her palmar arch and digits. I feel her gangrene is secondary to arterial insufficiency. There is no good distal target for bypass revascularization since her radial artery is occluded throughout the wrist and palmar arch and her ulnar artery is chronically occluded. With her collateral flow, I think it is amenable to primary amputation of her finger and I will see if it bleeds. I recommend starting with a more distal finger amputation below the area of gangrene, if this does not heal because of low circulation, we could try amputating it at the base in a more open fashion. Informed consent was obtained from the patient including the risks of bleeding, infection, need for further debridement or amputation more proximal in her finger in the future. DETAILS OF THE OPERATION: The patient was brought to the operating room and placed on table in supine position. She received monitored sedation throughout the case. Her right hand and wrist were prepped and draped in normal sterile fashion. I performed a digital block at the base of her right third finger using 1% lidocaine. The skin below the area of gangrene was healthy. She has been on antibiotics and the cellulitis has significantly improved. We made a fishmouth type incision in the right finger at the level of the middle phalange dissected down to the subcutaneous tissue, tendons and muscle down to the bone, which was transected with a bone cutter and the distal finger removed. We did take cultures from the amputation site and the area of gangrene sent for culture. Within the wound bed, there are no gross necrotic tissue seen and there was fairly good bleeding throughout the wound bed. We brought the bone back within the wound with a rongeur. Tendons were removed. There is no necrotic tissue seen. We irrigated with copious amounts of antibiotic solution. We gained hemostasis with electrocautery. We closed the amputation incision with running 3-0 nylon suture and I closed without tension. Her proximal finger was healthy with no erythema or tissue breakdown. We were able to preserve the proximal interphalangeal joint of her finger. We then washed her hand with antibiotic solution. We placed Xeroform over the incision covered it with 4 x 4 gauze and wrapped it with a Kerlix wrap. She tolerated the surgery with no immediate complications. Blood loss was approximately 2 mL, very minimal and Jaz Sanchez was scrubbed throughout the entire length of the case for the finger amputation and closure. CHIKIS VILLEDA MD DR: ANDREW/franny JOB#: [id number] / [id number]
[2019-09-25] MEDS ORDERED: LIDOCAINE 1% Multi-Dose 20 ML VIAL. ONE (15:05)
[2019-09-25] MEDS ORDERED: VANCOMYCIN 500 MG in IV NORMAL SALINE 100ML 100 ML IV SCH (16:00)
[2019-09-25 19:30] VITALS: BP 169/121
[2019-09-25] MEDS: ATORVASTATIN CALCIUM 40 MG TABLET. PO SCH (20:36)
[2019-09-25] MEDS: LATANOPROST 0.005% OPHTH SOLUTION 2.5ML BOTTLE. OU SCH (20:36)
[2019-09-25 23:00] VITALS: BP 163/64
[2019-09-26] MEDS: oxyCODONE/APAP 10/325 1 TAB TABLET PO PRN ×2 (01:07→23:00)
[2019-09-26] MEDS: MORPHINE SULFATE 2 MG/ML VIAL. IV PRN ×3 (01:07→07:34)
[2019-09-26 02:36] VITALS: BP 103/73
[2019-09-26 04:53] LABS: CALCIUM 8.1 mg/dL (8.5-10.1); CREATININE 7.2 mg/dL (0.6-1.0); GFR 7.1
[2019-09-26 04:54] LABS: POTASSIUM 6.2 mmol/L (3.5-5.1)
[2019-09-26] MEDS: PIPERACILLIN/TAZOBACTAM 2.25 GM in IV NORMAL SALINE 50ML 50 ML IV SCH ×3 (05:50→19:32)
[2019-09-26] MEDS: LEVOTHYROXINE 50 MCG TABLET PO SCH (05:51)
[2019-09-26] MEDS ORDERED: SODIUM POLYSTYRENE SULFON/SORB 15 GM/60 ML ORAL.SUSP. PO ONE (06:00)
[2019-09-26] MEDS ORDERED: fentaNYL PF VIAL 100 MCG/2 ML VIAL IVP PRN (06:45)
[2019-09-26] MEDS ORDERED: HYDROmorphone 2 MG/ML VIAL IVP PRN (06:45)
[2019-09-26] MEDS ORDERED: PROCHLORPERAZINE 10 MG/2 ML VIAL. IVP PRN (06:45)
[2019-09-26] MEDS ORDERED: MORPHINE SULFATE 2 MG/ML VIAL. IVP PRN (06:45)
[2019-09-26] MEDS ORDERED: IV RINGERS,LACTATED 1000ML 1,000 ML IV SCH ×2 (07:00)
[2019-09-26] MEDS: PANTOPRAZOLE 40 MG TABLET.DR. PO SCH (07:30)
[2019-09-26 07:40] VITALS: BP 170/113
[2019-09-26] MEDS: buPROPion XL 150 MG TAB.ER.24H. PO SCH (08:00)
[2019-09-26] MEDS: CLOPIDOGREL BISULFATE 75 MG TABLET PO SCH (08:00)
[2019-09-26] MEDS: CARVEDILOL 6.25 MG TABLET. PO SCH ×2 (08:00→17:00)
[2019-09-26] MEDS ORDERED: IV NORMAL SALINE 1000ML BAG 1,000 ML IV PRN ×2 (08:56)
[2019-09-26] MEDS: FOLIC/VIT B COMP W-C (RENAL) TABLET. PO SCH (09:00)
[2019-09-26] MEDS: amLODIPine BESYLATE 10 MG TABLET PO SCH (09:00)
[2019-09-26] MEDS: LACTOBACILLUS RHAMNOSUS GG 1 CAPSULE. PO SCH ×2 (09:00→22:59)
[2019-09-26] MEDS: FAMOTIDINE 20 MG TABLET. PO SCH (09:00)
[2019-09-26] MEDS: SERTRALINE 50 MG TABLET. PO SCH (09:00)
[2019-09-26] MEDS: LISINOPRIL 20 MG TABLET PO SCH (09:00)
[2019-09-26] MEDS ORDERED: ALBUMIN HUMAN 25% 200 ML IV PRN (09:00)
[2019-09-26] MEDS ORDERED: DIALYSIS PATIENT. MC PRN ×2 (09:00)
[2019-09-26] MEDS: hydrALAZINE 25 MG TABLET PO SCH ×3 (09:00→23:00)
--- NOTE | 2019-09-26 10:26 | PDOC ---
SURGICAL PROGRESS NOTE Subjective Patient was seen and examined at the bedside and overall is doing well. She has some mild incisional pain from her amputation site. Vital Signs Vital Signs Date Time Temp Pulse Resp B/P (MAP) Pulse Ox O2 Delivery O2 Flow Rate FiO2 09/26/19 07:40 98.1 73 20 170/113 (132) 90 Room Air 98.1 09/26/19 07:34 10.0 I&O Intake and Output 09/26/19 07:00 Intake Total 1040 ml Output Total 3 ml Balance 1037 ml Intake Oral 740 ml IV Total 300 ml Output Urine Total 1 ml Estimated Blood Loss 2 ml # Voids 1 # Bowel Movements 1 General: Alert Lungs: Clear to auscultation, Normal air movement Heart: Regular rate, Normal S1, Normal S2 Abdomen: Soft, No tenderness Extremities: Other Skin: Other (Right upper extremity finger amputation site is clean, dry, and intact.) Neuro: Normal speech, Strength at 5/5 X4 ext, Normal tone, Sensation intact, Cranial nerves 3-12 NL Psych/Mental Status: Mental status NL Labs Laboratory Tests Test 09/24/19 11:16 09/24/19 11:47 09/24/19 15:18 09/24/19 15:20 Glucose (Fingerstick) 34 mg/dL (70-99) 54 mg/dL (70-99) 23 mg/dL (70-99) Glucose Level 30 mg/dL (70-99) Test 09/24/19 15:48 09/24/19 16:56 09/24/19 17:40 09/24/19 20:38 Glucose (Fingerstick) 127 mg/dL (70-99) 119 mg/dL (70-99) 102 mg/dL (70-99) 142 mg/dL (70-99) Test 09/25/19 02:50 09/25/19 05:15 09/25/19 07:15 09/25/19 11:41 Glucose (Fingerstick) 259 mg/dL (70-99) 177 mg/dL (70-99) 118 mg/dL (70-99) White Blood Count 7.5 x10^3/uL (4.0-11.0) Red Blood Count 2.87 x10^6/uL (3.50-5.40) Hemoglobin 8.9 g/dL (12.0-15.5) Hematocrit 26.1 % (36.0-47.0) Mean Corpuscular Volume 91 fL (79-100) Mean Corpuscular Hemoglobin 31 pg (25-35) Mean Corpuscular Hemoglobin Concent 34 g/dL (31-37) Red Cell Distribution Width 17.9 % (11.5-14.5) Platelet Count 262 x10^3/uL (140-400) Neutrophils (%) (Auto) 72 % (31-73) Lymphocytes (%) (Auto) 17 % (24-48) Monocytes (%) (Auto) 10 % (0-9) Eosinophils (%) (Auto) 0 % (0-3) Basophils (%) (Auto) 1 % (0-3) Neutrophils # (Auto) 5.4 x10^3/uL (1.8-7.7) Lymphocytes # (Auto) 1.3 x10^3/uL (1.0-4.8) Monocytes # (Auto) 0.7 x10^3/uL (0.0-1.1) Eosinophils # (Auto) 0.0 x10^3/uL (0.0-0.7) Basophils # (Auto) 0.1 x10^3/uL (0.0-0.2) Sodium Level 134 mmol/L (136-145) Potassium Level 5.6 mmol/L (3.5-5.1) Chloride Level 95 mmol/L (98-107) Carbon Dioxide Level 28 mmol/L (21-32) Anion Gap 11 (6-14) Blood Urea Nitrogen 76 mg/dL (7-20) Creatinine 6.5 mg/dL (0.6-1.0) Estimated GFR (Cockcroft-Gault) 8.0 Glucose Level 229 mg/dL (70-99) Calcium Level 8.2 mg/dL (8.5-10.1) Phosphorus Level 9.4 mg/dL (2.6-4.7) Albumin 2.7 g/dL (3.4-5.0) Random Vancomycin Level 13.1 mcg/mL Test 09/25/19 14:28 09/25/19 17:13 09/25/19 23:09 09/26/19 04:40 Glucose (Fingerstick) 83 mg/dL (70-99) 64 mg/dL (70-99) 142 mg/dL (70-99) Sodium Level 132 mmol/L (136-145) Potassium Level 6.2 mmol/L (3.5-5.1) Chloride Level 95 mmol/L (98-107) Carbon Dioxide Level 26 mmol/L (21-32) Anion Gap 11 (6-14) Blood Urea Nitrogen 86 mg/dL (7-20) Creatinine 7.2 mg/dL (0.6-1.0) Estimated GFR (Cockcroft-Gault) 7.1 Glucose Level 172 mg/dL (70-99) Calcium Level 8.1 mg/dL (8.5-10.1) Test 09/26/19 06:58 Glucose (Fingerstick) 133 mg/dL (70-99) Laboratory Tests Test 09/25/19 11:41 09/25/19 14:28 09/25/19 17:13 09/25/19 23:09 Glucose (Fingerstick) 118 mg/dL (70-99) 83 mg/dL (70-99) 64 mg/dL (70-99) 142 mg/dL (70-99) Test 09/26/19 04:40 09/26/19 06:58 Sodium Level 132 mmol/L (136-145) Potassium Level 6.2 mmol/L (3.5-5.1) Chloride Level 95 mmol/L (98-107) Carbon Dioxide Level 26 mmol/L (21-32) Anion Gap 11 (6-14) Blood Urea Nitrogen 86 mg/dL (7-20) Creatinine 7.2 mg/dL (0.6-1.0) Estimated GFR (Cockcroft-Gault) 7.1 Glucose Level 172 mg/dL (70-99) Calcium Level 8.1 mg/dL (8.5-10.1) Glucose (Fingerstick) 133 mg/dL (70-99) Problem List Problems Medical Problems: (1) Osteomyelitis Status: Acute (2) Osteomyelitis of finger Status: Acute Assessment/Plan Right upper extremity third finger amputation--patient is doing well and the amputation site appears clean with healthy flaps. Dry dressings were replaced. Patient can be discharged when medically stable. She will follow-up in the office in 2 weeks for suture removal. All questions were answered to her satisfaction. Eliazar Sullivan DO FACS Justicifation of Admission Dx: Justifications for Admission: Justification of Admission Dx: Yes ELIAZAR SULLIVAN DO Sep 26, 2019 10:26
--- NOTE | 2019-09-26 10:45 | PDOC ---
SUBJECTIVE ROS Stable OBJECTIVE Vital Signs Vital Signs Date Time Temp Pulse Resp B/P (MAP) Pulse Ox O2 Delivery O2 Flow Rate FiO2 09/26/19 07:40 98.1 73 20 170/113 (132) 90 Room Air 98.1 09/26/19 07:34 10.0 I & 0 Intake and Output 09/26/19 07:00 Intake Total 1040 ml Output Total 3 ml Balance 1037 ml Intake Oral 740 ml IV Total 300 ml Output Urine Total 1 ml Estimated Blood Loss 2 ml # Voids 1 # Bowel Movements 1 PHYSICAL EXAM Physical Exam General: NAD HEENT: PERRLA, OM moist Neck Supple Lungs: dec BS , Non labored Heart: S1S2, RRR, n Abdomen: Normal bowel sounds, Soft, No tenderness, No Calvillo Extremities: Bila BKA , s/p amputation Rt middle finger , AVF + Skin: No rash Neuro- Grossly Normal DIAGNOSIS/ASSESSMENT Assessment & Plan ESRD - On HD MWF Didnt complete HD yesterday 2/2 malfunctioning AV access Dialysis today if Access declotted by IR ACcess- AV access , ordered Fistulogram, scheduled for today HyperKalemia- K 7.4 at presentation - Chronic Non compliance with HD and diet K mildly high today - if Access not declotted- recommend Kayexalate and Temporizing measures 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 follow-up with vascular in 2 weeks for suture removal AVG placed in September 2018 at [facility] - Left upper arm brachial artery to brachial vein arterial to venous graft placement using PTFE graft. Chronic severe Non compliance with Dialysis as OP as well during hospitalizations- leaves AMA Severe peripheral arterial disease - Bilateral BKA Diabetes w peripheral neuropathy Anemia - ARLNI per Protocol for Hgb <10 Congestive heart failure with systolic and diastolic dysfunction COMMENT/RELEVANT DATA Meds Current Medications Medications (Trade) Dose Ordered Sig/Clarence Start Time Stop Time Status Last Admin Dose Admin Acetaminophen/ Hydrocodone Bitart (Lortab 5/325) 1 tab PRN Q6HRS PRN 09/23/19 12:45 09/24/19 10:14 DC 09/24/19 08:32 1 TAB Albumin Human 200 ml @ 200 mls/hr 1X PRN PRN 09/26/19 09:00 09/26/19 14:59 Albuterol Sulfate (Ventolin Neb Soln) 2.5 mg PRN BID PRN 09/23/19 12:45 Amlodipine Besylate (Norvasc) 10 mg DAILY 09/23/19 13:00 09/24/19 19:03 10 MG Amylase/Lipase/ Protease (Zenpep 5,000) 1 cap TIDWMEALS 09/23/19 17:00 09/25/19 17:44 1 CAP Atorvastatin Calcium (Lipitor) 40 mg HS 09/23/19 21:00 09/25/19 20:36 40 MG Bupropion HCl (Wellbutrin Xl) 300 mg DAILYWBKFT 09/24/19 08:00 Calcium Gluconate (Calcium Gluconate) 1,000 mg 1X ONCE 09/23/19 00:30 09/23/19 00:31 DC 09/23/19 01:00 1,000 MG Carvedilol (Coreg) 12.5 mg BIDWMEALS 09/23/19 17:00 09/25/19 17:44 12.5 MG Cefazolin Sodium 1 gm/Sodium Chloride 500 ml @ 500 mls/hr 1X ONCE 09/25/19 09:00 09/25/19 09:59 DC 09/25/19 15:07 Clonidine HCl (Catapres Tts-2) 1 patch WEEKLY 09/23/19 13:00 09/23/19 21:00 1 PATCH Clopidogrel Bisulfate (Plavix) 75 mg DAILYWBKFT 09/23/19 13:00 Dextrose (Dextrose 50%-Water Syringe) 25 gm STK-MED ONCE 09/24/19 15:19 09/24/19 15:19 DC Famotidine (Pepcid) 40 mg QODAY 09/24/19 09:00 Fentanyl Citrate (Fentanyl 2ml Vial) 50 mcg PRN Q5MIN PRN 09/26/19 06:45 09/27/19 06:44 Glucagon (Glucagen) 1 mg PRN Q15MIN PRN 09/24/19 06:45 09/24/19 11:25 1 MG Glucose (Insta-Glucose) 15 gm PRN Q15MIN PRN 09/24/19 06:45 Guaifenesin (Robitussin Dm) 10 ml PRN Q6HRS PRN 09/23/19 12:45 Heparin Sodium (Porcine) (Heparin Sodium) 10,000 unit STK-MED ONCE 09/25/19 09:24 09/25/19 14:20 DC Heparin Sodium/ Sodium Chloride 500 ml @ As Directed STK-MED ONCE 09/24/19 16:49 09/24/19 16:49 DC Heparin Sodium/ Sodium Chloride (HEPARIN for ARTERIAL LINE FLUSH) 1,000 unit 1X ONCE 09/24/19 16:15 09/24/19 16:16 DC 09/24/19 17:07 1,000 UNIT Hydralazine HCl (Apresoline) 25 mg TID 09/23/19 14:00 09/25/19 20:36 25 MG Hydromorphone HCl (Dilaudid) 0.5 mg PRN Q10MIN PRN 09/26/19 06:45 09/27/19 06:44 Info (PHARMACY MONITORING -- do not chart) 1 each PRN DAILY PRN 09/26/19 09:00 Insulin Human Regular (HumuLIN R VIAL) 10 unit 1X ONCE 09/23/19 00:30 09/23/19 00:31 DC 09/23/19 00:59 10 UNIT Iodixanol (Visipaque 320) 100 ml 1X ONCE 09/24/19 16:15 09/24/19 16:16 DC 09/24/19 17:05 86 ML Lactobacillus Rhamnosus (Culturelle) 1 cap BID 09/23/19 21:00 09/25/19 20:36 1 CAP Latanoprost (Xalatan) 1 drop HS 09/23/19 21:00 09/25/19 20:36 1 DROP Levothyroxine Sodium (Synthroid) 50 mcg DAILY06 09/24/19 06:00 09/26/19 05:51 50 MCG Lidocaine HCl (Buffered Lidocaine 1%) 3 ml 1X ONCE 09/24/19 16:15 09/24/19 16:16 DC 09/24/19 16:15 5 ML Lidocaine HCl (Lidocaine 1% 20ml Vial) 20 ml STK-MED ONCE 09/25/19 14:05 09/25/19 15:06 DC 09/25/19 14:05 7 ML Lidocaine HCl (Lidocaine Pf 2% Vial) 5 ml STK-MED ONCE 09/24/19 15:15 09/24/19 15:16 DC Lidocaine HCl (Xylocaine-Mpf 1% 2ml Vial) 2 ml PRN 1X PRN 09/24/19 18:00 09/25/19 17:59 DC Lisinopril (Prinivil) 20 mg DAILY 09/23/19 13:00 09/24/19 19:02 20 MG Morphine Sulfate (Morphine Sulfate) 1 mg PRN Q10MIN PRN 09/26/19 06:45 09/27/19 06:44 Nitroglycerin (Nitroglycerin) 200 mcg 1X ONCE 09/24/19 16:45 09/24/19 16:46 DC 09/24/19 17:08 200 MCG Ondansetron HCl (Zofran Odt) 4 mg PRN Q6HRS PRN 09/23/19 12:45 Ondansetron HCl (Zofran) 4 mg PRN Q6HRS PRN 09/24/19 18:00 09/25/19 17:59 DC Oxycodone/ Acetaminophen (Percocet 10/325) 1 tab PRN Q4HRS PRN 09/24/19 10:15 09/26/19 01:07 1 TAB Pantoprazole Sodium (Protonix) 40 mg DAILYAC 09/23/19 16:30 Piperacillin Sod/ Tazobactam Sod (Zosyn Per Pharmacy) 1 each PRN DAILY PRN 09/24/19 09:00 Piperacillin Sod/ Tazobactam Sod 2.25 gm/Sodium Chloride 50 ml @ 100 mls/hr Q8HRS 09/24/19 10:00 09/26/19 05:50 100 MLS/HR Prochlorperazine Edisylate (Compazine) 5 mg PACU PRN PRN 09/26/19 06:45 09/27/19 06:44 Prochlorperazine Maleate (Compazine) 5 mg PRN TID PRN 09/23/19 12:45 Propofol (Diprivan) 200 mg STK-MED ONCE 09/24/19 15:15 09/24/19 15:16 DC Ringer's Solution 1,000 ml @ 30 mls/hr Q24H 09/26/19 07:00 09/27/19 06:59 Sertraline HCl (Zoloft) 50 mg DAILY 09/23/19 13:00 Sodium Polystyrene Sulfonate (Kayexalate) 15 gm 1X ONCE 09/26/19 06:00 09/26/19 06:01 DC 09/26/19 06:10 15 GM Sodium Chloride 1,000 ml @ 400 mls/hr Q2H30M PRN 09/26/19 08:56 09/26/19 20:55 Vancomycin HCl (Vanco Per Pharmacy) 1 each PRN DAILY PRN 09/24/19 09:00 09/25/19 09:40 1 EACH Vancomycin HCl (Vancomycin Random Level) 1 each 1X ONCE 09/25/19 06:00 09/25/19 06:01 DC 09/25/19 06:00 1 EACH Vancomycin HCl 1.25 gm/Sodium Chloride 250 ml @ 166.667 mls/hr 1X ONCE 09/22/19 23:15 09/23/19 00:44 DC 09/23/19 00:02 166.667 MLS/HR Vancomycin HCl 500 mg/Sodium Chloride 100 ml @ 100 mls/hr QMWF 09/25/19 16:00 09/25/19 15:39 100 MLS/HR Vitamin B Complex/ Vitamin C (Pinky-Shreya) 1 tab DAILY 09/23/19 13:00 Lab Laboratory Tests Test 09/25/19 11:41 09/25/19 14:28 09/25/19 17:13 09/25/19 23:09 Glucose (Fingerstick) 118 mg/dL (70-99) 83 mg/dL (70-99) 64 mg/dL (70-99) 142 mg/dL (70-99) Test 09/26/19 04:40 09/26/19 06:58 Sodium Level 132 mmol/L (136-145) Potassium Level 6.2 mmol/L (3.5-5.1) Chloride Level 95 mmol/L (98-107) Carbon Dioxide Level 26 mmol/L (21-32) Anion Gap 11 (6-14) Blood Urea Nitrogen 86 mg/dL (-20) Creatinine 7.2 mg/dL (0.6-1.0) Estimated GFR (Cockcroft-Gault) 7.1 Glucose Level 172 mg/dL (70-99) Calcium Level 8.1 mg/dL (8.5-10.1) Glucose (Fingerstick) 133 mg/dL (70-99) Results All relevant outside records, renal labs, imaging studies, telemetry/EKG's were reviewed. Justicifation of Admission Dx: Justifications for Admission: Justification of Admission Dx: Yes DOMINIQUE TSE MD Sep 26, 2019 10:45
--- NOTE | 2019-09-26 11:22 | NUR ---
SS following up with discharge planning. SS reviewed pt chart and discussed with pt RN. Pt currently on room air. Pt has outpatient dialysis at [facility],[phone]; fax [phone], Monday, and Monday. Pt COVID19 negative and on IV Zosyn. Pt had middle finger amputated. Pt has HCBS services at home. Discharge plan is to home with HCBS services when medically stable for discharge. SS will continue to follow for discharge planning.
--- NOTE | 2019-09-26 11:26 | PDOC ---
[employer] PROGRESS NOTE Chief Complaint Chief Complaint Acute encephalopathy secondary to metabolic etiology with hypoglycemia Right middle finger pain - dry gangrene, likely will auto-amputate, no sign of active infection. Hyperkalemia - K 7.4 ESRD - MWF [facility] patient. Fistula functioning again now. She is very intermittently compliant. Acute on chronic diastolic CHF - with elevated BNP and CXR findings concerning Accelerated HTN: labile Anasarca Noncompliance: missed dialysis, no transport. Suspect missed meds as well. Hx of severe LE PAD - S/P bilateral BKA. more recent to left leg, incision intact Debility HX NONCOMPLIANCE Anxiety Chronic back pain Chronic anemia Elevated liver function tests Depression sec to med illness History of diabetes mellitus type 2 History of hypothyroidism Chronic pain syndrome History of bilateral BKA History of Present Illness History of Present Illness 09/25/2021 Patient seen and examined She is resting with no apparent distress She did have her finger amputated yesterday Discussed with RN Chart reviewed 09/25/2019 Patient seen and examined She is currently on dialysis Surgery is scheduled for this afternoon I believe Discussed with RN Chart reviewed 09/24/2019 Patient seen and examined She complains of finger pain Discussed with nurse Chart reviewed We are having a difficult time getting IV access Vitals/I&O Vitals/I&O: Vital Signs Date Time Temp Pulse Resp B/P (MAP) Pulse Ox O2 Delivery O2 Flow Rate FiO2 09/26/19 07:40 98.1 73 20 170/113 (132) 90 Room Air 98.1 09/26/19 07:34 10.0 I & O 09/25/19 09/25/19 09/26/19 15:00 23:00 07:00 Intake Total 300 ml 740 ml 0 ml Output Total 3 ml 0 ml Balance 297 ml 740 ml 0 ml Physical Exam Physical Exam: GENERAL: Resting in no apparent distress HEENT: Normocephalic, atraumatic, anicteric, no thrush. Oral mucosa moist. NECK: Supple. LUNGS: Decreased breath sounds at the bases, nonlabored. HEART: S1, S2. RRR. ABDOMEN: Soft, nontender. Bowel sounds present. GENITOURINARY: No Calvillo. EXTREMITIES: Bilateral BKA stump healthy, right hand with clean dry intact. No generalized rash. NEUROLOGIC: Grossly nonfocal. Heart: Regular rate, Normal S1, Normal S2 Lungs: Clear Abdomen: Soft, No tenderness Extremities: Other (Right hand with clean dry intact dressing) Skin: Other (Right upper extremity finger amputation site is clean, dry, and intact.) Labs Labs: Laboratory Tests Test 09/25/19 11:41 09/25/19 14:28 09/25/19 17:13 09/25/19 23:09 Glucose (Fingerstick) 118 mg/dL (70-99) 83 mg/dL (70-99) 64 mg/dL (70-99) 142 mg/dL (70-99) Test 09/26/19 04:40 09/26/19 06:58 09/26/19 11:21 Sodium Level 132 mmol/L (136-145) Potassium Level 6.2 mmol/L (3.5-5.1) Chloride Level 95 mmol/L (98-107) Carbon Dioxide Level 26 mmol/L (21-32) Anion Gap 11 (6-14) Blood Urea Nitrogen 86 mg/dL (-20) Creatinine 7.2 mg/dL (0.6-1.0) Estimated GFR (Cockcroft-Gault) 7.1 Glucose Level 172 mg/dL (70-99) Calcium Level 8.1 mg/dL (8.5-10.1) Glucose (Fingerstick) 133 mg/dL (70-99) 141 mg/dL (70-99) Assessment and Plan Assessmemt and Plan Problems Medical Problems: (1) Osteomyelitis Status: Acute (2) Osteomyelitis of finger Status: Acut Postop day 1 right third finger amputation Acute encephalopathy secondary to metabolic etiology with hypoglycemia Right middle finger pain - dry gangrene Hyperkalemia - K 7.4 (resolving) ESRD - [facility]WF [facility]. Fistula functioning again now. She is very intermittently compliant. Acute on chronic diastolic CHF - with elevated BNP and CXR findings concerning Accelerated HTN: labile Anasarca Noncompliance: missed dialysis, no transport. Suspect missed meds as well. Hx of severe LE PAD - S/P bilateral BKA. more recent to left leg, incision intact Debility HX NONCOMPLIANCE Anxiety Chronic back pain Chronic anemia Elevated liver function tests Depression sec to med illness History of diabetes mellitus type 2 History of hypothyroidism Chronic pain syndrome History of bilateral BKA Plan Wound care Continue dialysis Monday Home meds DVT prophylaxis Full code PRN pain meds Postoperatively she will need aggressive wound care Long-term prognosis guarded Appreciate subspecialist input Comment Review of Relevant I have reviewed the following items pamela (where applicable) has been applied. Medications: Current Medications Medications (Trade) Dose Ordered Sig/Clarence Route PRN Reason Start Time Stop Time Status Last Admin Dose Admin Vancomycin HCl 500 mg/Sodium Chloride 100 ml @ 100 mls/hr QMWF IV 09/25/19 16:00 09/25/19 15:39 Lidocaine HCl (Lidocaine 1% 20ml Vial) 20 ml STK-MED ONCE INJ 09/25/19 14:05 09/25/19 15:06 DC 09/25/19 14:05 Sodium Polystyrene Sulfonate (Kayexalate) 15 gm 1X ONCE PO 09/26/19 06:00 09/26/19 06:01 DC 09/26/19 06:10 Justicifation of Admission Dx: Justifications for Admission: Justification of Admission Dx: Yes ANGELINA GOMEZ III DO Sep 26, 2019 11:26
--- NOTE | 2019-09-26 11:27 | PDOC ---
Infectious Disease Note Subjective Subjective Not answering questions No fevers last 24 hrs ROS ROS as mentioned above Vital Sign Vital Signs Vital Signs Date Time Temp Pulse Resp B/P (MAP) Pulse Ox O2 Delivery O2 Flow Rate FiO2 09/26/19 07:40 98.1 73 20 170/113 (132) 90 Room Air 98.1 09/26/19 07:34 10.0 Physical Exam PHYSICAL EXAM GENERAL: Propped up in bed, awake, tired appearance HEENT: Oral cavity pink NECK: Supple. LUNGS: Decreased breath sounds at the bases, nonlabored. HEART: S1, S2. reguar ABDOMEN: Obese, soft, nontender, bowel sounds present. GENITOURINARY: No Calvillo. EXTREMITIES: Bilateral BKA stump healthy, Right hand bandaged. SKIN: No signs of rash. warm to touch. NEUROLOGIC: Awake, not answering questions [facility] Non-tunneled triple-lumen CVC (09/23) Labs Lab Laboratory Tests Test 09/25/19 11:41 09/25/19 14:28 09/25/19 17:13 09/25/19 23:09 Glucose (Fingerstick) 118 mg/dL (70-99) 83 mg/dL (70-99) 64 mg/dL (70-99) 142 mg/dL (70-99) Test 09/26/19 04:40 09/26/19 06:58 Sodium Level 132 mmol/L (136-145) Potassium Level 6.2 mmol/L (3.5-5.1) Chloride Level 95 mmol/L (98-107) Carbon Dioxide Level 26 mmol/L (21-32) Anion Gap 11 (6-14) Blood Urea Nitrogen 86 mg/dL (-20) Creatinine 7.2 mg/dL (0.6-1.0) Estimated GFR (Cockcroft-Gault) 7.1 Glucose Level 172 mg/dL (70-99) Calcium Level 8.1 mg/dL (8.5-10.1) Glucose (Fingerstick) 133 mg/dL (70-99) Objective Assessment Gangrene of the distal right third finger with mild superimposed cellulitis. s/p partial amputation, closed on 09/[address] Villeda Right third finger pain from above. End-stage renal disease, on hemodialysis through left upper extremity graft. Peripheral arterial disease. Diabetes mellitus. Peripheral neuropathy. Chronic pain. Fibromyalgia. Hypothyroidism. Hyperparathyroidism. History of congestive heart failure. Plan Plan of Care vancomycin and Zosyn. Probiotics f/u cultures Wound care as directed. Alert and getting ready for HD. Has some finger pain D/w nursing Attending Co-Sign Attending Co-Sign The patient was seen and interviewed as well as examined at the bedside. The chart was reviewed. The case was discussed. Agree with the plan of care. GEOFFREY GUZMAN APRN Sep 26, 2019 11:27 YADIEL RIVAS MD Sep 26, 2019 17:10
[2019-09-26 11:38] VITALS: BP 131/71
[2019-09-26] MEDS ORDERED: LIDOCAINE 2% PF 5 ML VIAL. ONE (12:10)
[2019-09-26] MEDS ORDERED: PROPOFOL 10 MG/ML (20ML) VIAL. IV ONE ×2 (12:10)
[2019-09-26] MEDS: VANCOMYCIN PER PHARMACY MC PRN (12:38)
[2019-09-26] MEDS ORDERED: LIDOCAINE 1%/EPI 1:100,000 20 ML VIAL. ONE (12:55)
[2019-09-26] MEDS ORDERED: LIDOCAINE 1%/EPI 1:100,000 20 ML VIAL. INJ ONE (14:00)
--- NOTE | 2019-09-26 14:08 | PDOC ---
BRIEF OPERATIVE NOTE Pre-Op Diagnosis CRF and thrombosed AV graft, hyperkalemia Post-Op Diagnosis same Procedure Performed Tunnelled HD catheter placement Surgeon Brandon Anesthesia Type: MAC Findings Exchange of left IJ central line for tunnelled left IJ HD catheter with excellent manual flows and suitable for use. Complications No immediate ANDREA ARENAS MD Sep 26, 2019 14:08
--- NOTE | 2019-09-26 14:38 | RAD ---
Procedure: Tunneled hemodialysis catheter placement Clinical Indication: Adult female requiring hemodialysis, hyperkalemia. Sedation: Mac anesthesia was a insulating machine operator by the anesthesia department. Antibiotics: Patient is on systemic IV antibiotic therapy. Fluoro Time: 0.1 minutes, images: 1 Contrast: None Sterility: All elements of maximal sterile barrier technique including the use of a cap, mask, sterile gown, sterile gloves, large sterile sheet, appropriate hand hygiene, and 2% chlorhexidine for cutaneous antisepsis (or acceptable alternative antiseptic per current guidelines) were followed for this procedure. Consent: The procedure was explained in its entirety to the patient or the patients designated insurance service representative by a member of the treatment team, including a discussion of the risks, benefits and commonly accepted alternatives to the procedure, as well as the expected consequences of no therapy whatsoever. Discussion of the risks included, but was not limited to, those that are most frequent and those that are rare but possibly severe or life-threatening, as well as the possibility of unforeseen complications. Technique and Findings: Following informed consent, the patient was prepped and draped in the usual sterile fashion. The skin over the right anterior chest wall was copiously anesthetized with 1% Lidocaine plus Epinephrine and a small dermatotomy was made. A 28 CM palindrome tunneled hemodialysis catheter was then tunneled subcutaneously towards the existing left IJ central line. The central line was then cut and removed over wire and a large caliber peel-away sheath was placed following serial dilation. The new hemodialysis catheter was then deployed through the peel-away sheath under fluoroscopic guidance such that the distal tip resided in the mid right atrium. Manual flow rates were assessed and found to be excellent. The catheter was then flushed, packed with Heparin, capped, and sutured to the skin. The neck dermatotomy was closed with Dermabond. Complications: No immediate Impression: 1. Tunneled hemodialysis catheter placement as described. This catheter demonstrates excellent manual flow rates and is suitable for use immediately.
--- NOTE | 2019-09-26 18:16 | NUR ---
Per Dr. Aleman the tunneled dialysis cath is NOT to be used for fluids or medications. For use in dialysis only.
[2019-09-26 20:30] VITALS: BP 127/52
[2019-09-26] MEDS: LATANOPROST 0.005% OPHTH SOLUTION 2.5ML BOTTLE. OU SCH (22:59)
[2019-09-26] MEDS: ATORVASTATIN CALCIUM 40 MG TABLET. PO SCH (23:00)
[2019-09-26] MEDS: HALOPERIDOL LACTATE 5 MG/ML VIAL. IM PRN (23:00)
[2019-09-26 23:54] VITALS: BP 174/51
[2019-09-27] MEDS: IV DEXTROSE 10% 1,000 ML IV SCH ×2 (01:21→19:45)
--- NOTE | 2019-09-27 02:07 | NUR ---
At approx 2200, pt was found sitting on floor in room and attempting to pull out HD catheter. Pt very angry and confused, repeatedly yelling out for "Jun." Pt placed back in bed, new dressings applied to HD cath and right finger. No apparent injury. Pt verbally and physically aggressive towards staff. Dr Talley notified and order received for Haldol. Pt reeducated on use of call light and fall precautions. Pt currently sleeping in bed, mitt to left hand, rails up x3, bed alarm in place, call light in reach. Will continue with plan of care.
[2019-09-27] MEDS: PIPERACILLIN/TAZOBACTAM 2.25 GM in IV NORMAL SALINE 50ML 50 ML IV SCH ×2 (06:00→13:43)
[2019-09-27 07:21] VITALS: BP 105/87
[2019-09-27] MEDS: CARVEDILOL 6.25 MG TABLET. PO SCH ×2 (08:00→18:39)
[2019-09-27] MEDS: hydrALAZINE 25 MG TABLET PO SCH ×4 (09:00→22:50)
[2019-09-27] MEDS: amLODIPine BESYLATE 10 MG TABLET PO SCH (09:00)
[2019-09-27] MEDS: LACTOBACILLUS RHAMNOSUS GG 1 CAPSULE. PO SCH ×2 (09:00→20:54)
[2019-09-27] MEDS: LISINOPRIL 20 MG TABLET PO SCH (09:00)
[2019-09-27 09:08] LABS: CALCIUM 8.3 mg/dL (8.5-10.1); GFR 10.8; POTASSIUM 4.5 mmol/L (3.5-5.1)
[2019-09-27] MEDS ORDERED: IV NORMAL SALINE 1000ML BAG 1,000 ML IV PRN ×2 (09:28)
[2019-09-27] MEDS ORDERED: ALBUMIN HUMAN 25% 200 ML IV PRN (09:30)
[2019-09-27] MEDS ORDERED: DIALYSIS PATIENT. MC PRN (09:30)
[2019-09-27] MEDS ORDERED: diphenhydrAMINE 50 MG/ML VIAL IV PRN ×2 (09:30)
[2019-09-27] MEDS: oxyCODONE/APAP 10/325 1 TAB TABLET PO PRN ×4 (10:32→22:49)
--- NOTE | 2019-09-27 11:41 | PDOC ---
[employer] PROGRESS NOTE Chief Complaint Chief Complaint Postop day 2 finger amputation Acute encephalopathy secondary to metabolic etiology with hypoglycemia Right middle finger pain - dry gangrene , no sign of active infection. Hyperkalemia - K 7.4 ESRD - MWF [facility]. Fistula functioning again now. She is very intermittently compliant. Acute on chronic diastolic CHF - with elevated BNP and CXR findings concerning Accelerated HTN: labile Anasarca Noncompliance: missed dialysis, no transport. Suspect missed meds as well. Hx of severe LE PAD - S/P bilateral BKA. more recent to left leg, incision intact Debility HX NONCOMPLIANCE Anxiety Chronic back pain Chronic anemia Elevated liver function tests Depression sec to med illness History of diabetes mellitus type 2 History of hypothyroidism Chronic pain syndrome History of bilateral BKA History of Present Illness History of Present Illness 09/27/2019 Patient seen and examined She is currently getting dialysis Complains of pain Chart reviewed Discussed with RN 09/25/2021 Patient seen and examined She is resting with no apparent distress She did have her finger amputated yesterday Discussed with RN Chart reviewed 09/25/2019 Patient seen and examined She is currently on dialysis Surgery is scheduled for this afternoon I believe Discussed with RN Chart reviewed 09/24/2019 Patient seen and examined She complains of finger pain Discussed with nurse Chart reviewed We are having a difficult time getting IV access Vitals/I&O Vitals/I&O: Vital Signs Date Time Temp Pulse Resp B/P (MAP) Pulse Ox O2 Delivery O2 Flow Rate FiO2 09/27/19 10:32 18 Room Air 09/27/19 08:00 6.0 09/27/19 07:21 98.1 72 105/87 (93) 96 98.1 I & O 09/26/19 09/26/19 09/27/19 15:00 23:00 07:00 Intake Total 0 ml 200 ml Output Total 0 ml 0 ml Balance 0 ml 0 ml 200 ml Physical Exam Physical Exam: GENERAL: Propped up in bed, awake, tired appearance HEENT: Oral cavity pink NECK: Supple. LUNGS: Decreased breath sounds at the bases, nonlabored. HEART: S1, S2. reguar ABDOMEN: Obese, soft, nontender, bowel sounds present. GENITOURINARY: No Calvillo. EXTREMITIES: Bilateral BKA stump healthy, Right hand bandaged. SKIN: No signs of rash. warm to touch. NEUROLOGIC: Awake, not answering questions [facility] Non-tunneled triple-lumen CVC (09/23) Heart: Regular rate, Normal S1, Normal S2 Lungs: Clear Abdomen: Soft, No tenderness Extremities: Other (Right hand with clean dry intact dressing) Skin: Other (Right upper extremity finger amputation site is clean, dry, and intact.) Labs Labs: Laboratory Tests Test 09/26/19 12:16 09/26/19 14:51 09/26/19 22:21 09/27/19 07:55 Potassium Level 6.0 mmol/L (3.5-5.1) Glucose (Fingerstick) 111 mg/dL (70-99) 80 mg/dL (70-99) 64 mg/dL (70-99) Test 09/27/19 08:20 Sodium Level 137 mmol/L (136-145) Potassium Level 4.5 mmol/L (3.5-5.1) Chloride Level 99 mmol/L (98-107) Carbon Dioxide Level 29 mmol/L (21-32) Anion Gap 9 (6-14) Blood Urea Nitrogen 41 mg/dL (7-20) Creatinine 5.0 mg/dL (0.6-1.0) Estimated GFR (Cockcroft-Gault) 10.8 Glucose Level 70 mg/dL (70-99) Calcium Level 8.3 mg/dL (8.5-10.1) Assessment and Plan Assessmemt and Plan Problems Medical Problems: (1) Osteomyelitis Status: Acute (2) Osteomyelitis of finger Status: Acute Postop day 2 right third finger amputation Acute encephalopathy secondary to metabolic etiology with hypoglycemia Right middle finger pain - dry gangrene Hyperkalemia - K 7.4 (resolving) ESRD - MWF [facility]. Fistula functioning again now. She is very intermittently compliant. Acute on chronic diastolic CHF - with elevated BNP and CXR findings concerning Accelerated HTN: labile Anasarca Noncompliance: missed dialysis, no transport. Suspect missed meds as well. Hx of severe LE PAD - S/P bilateral BKA. more recent to left leg, incision intact Debility HX NONCOMPLIANCE Anxiety Chronic back pain Chronic anemia Elevated liver function tests Depression sec to med illness History of diabetes mellitus type 2 History of hypothyroidism Chronic pain syndrome History of bilateral BKA Plan Wound care Continue dialysis Monday Home meds DVT prophylaxis Full code PRN pain meds Postoperatively she will need aggressive wound care Long-term prognosis guarded Appreciate subspecialist input Comment Review of Relevant I have reviewed the following items pamela (where applicable) has been applied. Medications: Current Medications Medications (Trade) Dose Ordered Sig/Clarence Route PRN Reason Start Time Stop Time Status Last Admin Dose Admin Lidocaine/ Epinephrine (LIDOCAINE 1%-EPI 1:100,000 Multi-Dose) 20 ml 1X ONCE INJ 09/26/19 14:00 09/26/19 14:01 DC 09/26/19 14:00 Haloperidol Lactate (Haldol Inj) 5 mg PRN Q8HRS PRN IM AGITATION 09/26/19 22:45 09/26/19 23:00 Justicifation of Admission Dx: Justifications for Admission: Justification of Admission Dx: Yes ANGELINA GOMEZ III DO Sep 27, 2019 11:41
--- NOTE | 2019-09-27 12:17 | PDOC ---
SUBJECTIVE ROS seen on HD, no complaints OBJECTIVE Vital Signs Vital Signs Date Time Temp Pulse Resp B/P (MAP) Pulse Ox O2 Delivery O2 Flow Rate FiO2 09/27/19 10:32 18 Room Air 09/27/19 08:00 6.0 09/27/19 07:21 98.1 72 105/87 (93) 96 98.1 I & 0 Intake and Output 09/27/19 06:59 Intake Total 200 ml Output Total 0 ml Balance 200 ml Intake Oral 200 ml Output Urine Total 0 ml # Bowel Movements 1 PHYSICAL EXAM Physical Exam General: NAD HEENT: PERRLA, OM moist Neck Supple Lungs: dec BS , Non labored Heart: S1S2, RRR, n Abdomen: Normal bowel sounds, Soft, No tenderness, No Calvillo Extremities: Bila BKA , s/p amputation Rt middle finger , AVF + Skin: No rash Neuro- Grossly Normal DIAGNOSIS/ASSESSMENT Assessment & Plan ESRD - On HD MWF Dialyzed yesterday 2/2 Hyperkalemia Seen on HD today , tolerating well, continue as ordered, Eddie Daniels ACcess- AV access Fistulogram ordered 09/24- cancelled yesterday due to Na of 6 Plan by IR to Declot as OP if dced home, Tunneled HDC placed 09/25 HyperKalemia- K 7.4 at presentation - Chronic Non compliance with HD and diet 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 follow-up with vascular in 2 weeks for suture removal AVG placed in September 2018 at [facility] - Left upper arm brachial artery to brachial vein arterial to venous graft placement using PTFE graft. 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 Can be dced from renal standpoin- defer to others If Dced we will arrange for OP Declot of AV access- Discussed with WINDING RACK OPERATOR at the OP Unit COMMENT/RELEVANT DATA Meds Current Medications Medications (Trade) Dose Ordered Sig/Clarence Start Time Stop Time Status Last Admin Dose Admin Acetaminophen/ Hydrocodone Bitart (Lortab 5/325) 1 tab PRN Q6HRS PRN 09/23/19 12:45 09/24/19 10:14 DC 09/24/19 08:32 1 TAB Albumin Human 200 ml @ 200 mls/hr 1X PRN PRN 09/27/19 09:30 09/27/19 15:29 Albuterol Sulfate (Ventolin Neb Soln) 2.5 mg PRN BID PRN 09/23/19 12:45 Amlodipine Besylate (Norvasc) 10 mg DAILY 09/23/19 13:00 09/24/19 19:03 10 MG Amylase/Lipase/ Protease (Zenpep 5,000) 1 cap TIDWMEALS 09/23/19 17:00 09/25/19 17:44 1 CAP Atorvastatin Calcium (Lipitor) 40 mg HS 09/23/19 21:00 09/26/19 23:00 40 MG Bupropion HCl (Wellbutrin Xl) 300 mg DAILYWBKFT 09/24/19 08:00 Calcium Gluconate (Calcium Gluconate) 1,000 mg 1X ONCE 09/23/19 00:30 09/23/19 00:31 DC 09/23/19 01:00 1,000 MG Carvedilol (Coreg) 12.5 mg BIDWMEALS 09/23/19 17:00 09/25/19 17:44 12.5 MG Cefazolin Sodium 1 gm/Sodium Chloride 500 ml @ 500 mls/hr 1X ONCE 09/25/19 09:00 09/25/19 09:59 DC 09/25/19 15:07 Clonidine HCl (Catapres Tts-2) 1 patch WEEKLY 09/23/19 13:00 09/23/19 21:00 1 PATCH Clopidogrel Bisulfate (Plavix) 75 mg DAILYWBKFT 09/23/19 13:00 Dextrose (Dextrose 50%-Water Syringe) 25 gm STK-MED ONCE 09/24/19 15:19 09/24/19 15:19 DC Diphenhydramine HCl (Benadryl) 25 mg 1X PRN PRN 09/27/19 09:30 09/28/19 09:29 Famotidine (Pepcid) 40 mg QODAY 09/24/19 09:00 Fentanyl Citrate (Fentanyl 2ml Vial) 50 mcg PRN Q5MIN PRN 09/26/19 06:45 09/26/19 15:00 DC Glucagon (Glucagen) 1 mg PRN Q15MIN PRN 09/24/19 06:45 09/24/19 11:25 1 MG Glucose (Insta-Glucose) 15 gm PRN Q15MIN PRN 09/24/19 06:45 Guaifenesin (Robitussin Dm) 10 ml PRN Q6HRS PRN 09/23/19 12:45 Haloperidol Lactate (Haldol Inj) 5 mg PRN Q8HRS PRN 09/26/19 22:45 09/26/19 23:00 5 MG Heparin Sodium (Porcine) (Heparin Sodium) 10,000 unit STK-MED ONCE 09/25/19 09:24 09/25/19 14:20 DC Heparin Sodium/ Sodium Chloride 500 ml @ As Directed STK-MED ONCE 09/24/19 16:49 09/24/19 16:49 DC Heparin Sodium/ Sodium Chloride (HEPARIN for ARTERIAL LINE FLUSH) 1,000 unit 1X ONCE 09/24/19 16:15 09/24/19 16:16 DC 09/24/19 17:07 1,000 UNIT Hydralazine HCl (Apresoline) 25 mg TID 09/23/19 14:00 09/26/19 23:00 25 MG Hydromorphone HCl (Dilaudid) 0.5 mg PRN Q10MIN PRN 09/26/19 06:45 09/27/19 06:44 DC Info (PHARMACY MONITORING -- do not chart) 1 each PRN DAILY PRN 09/27/19 09:30 Insulin Human Regular (HumuLIN R VIAL) 10 unit 1X ONCE 09/23/19 00:30 09/23/19 00:31 DC 09/23/19 00:59 10 UNIT Iodixanol (Visipaque 320) 100 ml 1X ONCE 09/24/19 16:15 09/24/19 16:16 DC 09/24/19 17:05 86 ML Lactobacillus Rhamnosus (Culturelle) 1 cap BID 09/23/19 21:00 09/26/19 22:59 1 CAP Latanoprost (Xalatan) 1 drop HS 09/23/19 21:00 09/26/19 22:59 1 DROP Levothyroxine Sodium (Synthroid) 50 mcg DAILY06 09/24/19 06:00 09/26/19 05:51 50 MCG Lidocaine HCl (Buffered Lidocaine 1%) 3 ml 1X ONCE 09/24/19 16:15 09/24/19 16:16 DC 09/24/19 16:15 5 ML Lidocaine HCl (Lidocaine 1% 20ml Vial) 20 ml STK-MED ONCE 09/25/19 14:05 09/25/19 15:06 DC 09/25/19 14:05 7 ML Lidocaine HCl (Lidocaine Pf 2% Vial) 5 ml STK-MED ONCE 09/26/19 12:10 09/26/19 12:11 DC Lidocaine HCl (Xylocaine-Mpf 1% 2ml Vial) 2 ml PRN 1X PRN 09/24/19 18:00 09/25/19 17:59 DC Lidocaine/ Epinephrine (LIDOCAINE 1%-EPI 1:100,000 Multi-Dose) 20 ml 1X ONCE 09/26/19 14:00 09/26/19 14:01 DC 09/26/19 14:00 8 ML Lisinopril (Prinivil) 20 mg DAILY 09/23/19 13:00 09/24/19 19:02 20 MG Morphine Sulfate (Morphine Sulfate) 2 mg PRN Q2HR PRN 09/26/19 20:45 Nitroglycerin (Nitroglycerin) 200 mcg 1X ONCE 09/24/19 16:45 09/24/19 16:46 DC 09/24/19 17:08 200 MCG Ondansetron HCl (Zofran Odt) 4 mg PRN Q6HRS PRN 09/23/19 12:45 Ondansetron HCl (Zofran) 4 mg PRN Q6HRS PRN 09/24/19 18:00 09/25/19 17:59 DC Oxycodone/ Acetaminophen (Percocet 10/325) 1 tab PRN Q4HRS PRN 09/24/19 10:15 09/27/19 10:32 1 TAB Pantoprazole Sodium (Protonix) 40 mg DAILYAC 09/23/19 16:30 Piperacillin Sod/ Tazobactam Sod (Zosyn Per Pharmacy) 1 each PRN DAILY PRN 09/24/19 09:00 Piperacillin Sod/ Tazobactam Sod 2.25 gm/Sodium Chloride 50 ml @ 100 mls/hr Q8HRS 09/24/19 10:00 09/26/19 19:32 100 MLS/HR Prochlorperazine Edisylate (Compazine) 5 mg PACU PRN PRN 09/26/19 06:45 09/26/19 15:00 DC Prochlorperazine Maleate (Compazine) 5 mg PRN TID PRN 09/23/19 12:45 Propofol (Diprivan) 200 mg STK-MED ONCE 09/26/19 12:10 09/26/19 12:11 DC Ringer's Solution 1,000 ml @ 30 mls/hr Q24H 09/26/19 07:00 09/27/19 06:59 DC Sertraline HCl (Zoloft) 50 mg DAILY 09/23/19 13:00 Sodium Polystyrene Sulfonate (Kayexalate) 15 gm 1X ONCE 09/26/19 06:00 09/26/19 06:01 DC 09/26/19 06:10 15 GM Sodium Chloride 1,000 ml @ 400 mls/hr Q2H30M PRN 09/27/19 09:28 09/27/19 21:27 Vancomycin HCl (Vanco Per Pharmacy) 1 each PRN DAILY PRN 09/24/19 09:00 09/26/19 12:38 1 EACH Vancomycin HCl (Vancomycin Random Level) 1 each 1X ONCE 09/25/19 06:00 09/25/19 06:01 DC 09/25/19 06:00 1 EACH Vancomycin HCl 1.25 gm/Sodium Chloride 250 ml @ 166.667 mls/hr 1X ONCE 09/22/19 23:15 09/23/19 00:44 DC 09/23/19 00:02 166.667 MLS/HR Vancomycin HCl 500 mg/Sodium Chloride 100 ml @ 100 mls/hr QMWF 09/25/19 16:00 09/25/19 15:39 100 MLS/HR Vitamin B Complex/ Vitamin C (Pinky-Shreya) 1 tab DAILY 09/23/19 13:00 Lab Laboratory Tests Test 09/26/19 12:16 09/26/19 14:51 09/26/19 22:21 09/27/19 07:55 Potassium Level 6.0 mmol/L (3.5-5.1) Glucose (Fingerstick) 111 mg/dL (70-99) 80 mg/dL (70-99) 64 mg/dL (70-99) Test 7/3/20 08:20 Sodium Level 137 mmol/L (136-145) Potassium Level 4.5 mmol/L (3.5-5.1) Chloride Level 99 mmol/L (98-107) Carbon Dioxide Level 29 mmol/L (21-32) Anion Gap 9 (6-14) Blood Urea Nitrogen 41 mg/dL (7-20) Creatinine 5.0 mg/dL (0.6-1.0) Estimated GFR (Cockcroft-Gault) 10.8 Glucose Level 70 mg/dL (70-99) Calcium Level 8.3 mg/dL (8.5-10.1) Results All relevant outside records, renal labs, imaging studies, telemetry/EKG's were reviewed. Justicifation of Admission Dx: Justifications for Admission: Justification of Admission Dx: Yes DOMINIQUE TSE MD Sep 27, 2019 12:16
[2019-09-27] MEDS: VANCOMYCIN PER PHARMACY MC PRN (12:54)
[2019-09-27] MEDS: FOLIC/VIT B COMP W-C (RENAL) TABLET. PO SCH (13:19)
[2019-09-27] MEDS: buPROPion XL 150 MG TAB.ER.24H. PO SCH (13:19)
[2019-09-27] MEDS: PANTOPRAZOLE 40 MG TABLET.DR. PO SCH (13:19)
[2019-09-27] MEDS: CLOPIDOGREL BISULFATE 75 MG TABLET PO SCH (13:19)
[2019-09-27] MEDS: LEVOTHYROXINE 50 MCG TABLET PO SCH (13:19)
[2019-09-27] MEDS: SERTRALINE 50 MG TABLET. PO SCH (13:20)
--- NOTE | 2019-09-27 13:21 | PDOC ---
Infectious Disease Note Subjective Subjective Combative and confused last night, found on the floor. Better today so far c/o some post-surgical pain No fevers/chills/N/V/D s/p HD catheter placement yesterday. The LIJ was removed. Currently no IV access. Attempt for to place a PIV was unsuccessful per nursing ROS ROS as mentioned above Vital Sign Vital Signs Vital Signs Date Time Temp Pulse Resp B/P (MAP) Pulse Ox O2 Delivery O2 Flow Rate FiO2 09/27/19 10:32 18 Room Air 09/27/19 08:00 6.0 09/27/19 07:21 98.1 72 105/87 (93) 96 98.1 Physical Exam PHYSICAL EXAM GENERAL: Propped up in bed, alert, coop HEENT: Oral cavity pink. No lesions seen NECK: Supple. LUNGS: Decreased breath sounds at the bases, nonlabored. HEART: S1, S2. regular ABDOMEN: Obese, soft, nontender, bowel sounds present. GENITOURINARY: No Calvillo. EXTREMITIES: Bilateral BKA stump healthy, Right 2nd amputation well- approx/sutures, clean SKIN: No signs of rash. warm to touch. NEUROLOGIC: Alert, answering questions appropriately LIJ Non-tunneled triple-lumen CVC (09/23) out Left-sided tunnelled HDC (09/25) without signs of complications Labs Lab Laboratory Tests Test 09/26/19 14:51 09/26/19 22:21 09/27/19 07:55 09/27/19 08:20 Glucose (Fingerstick) 111 mg/dL (70-99) 80 mg/dL (70-99) 64 mg/dL (70-99) Sodium Level 137 mmol/L (136-145) Potassium Level 4.5 mmol/L (3.5-5.1) Chloride Level 99 mmol/L (98-107) Carbon Dioxide Level 29 mmol/L (21-32) Anion Gap 9 (6-14) Blood Urea Nitrogen 41 mg/dL (7-20) Creatinine 5.0 mg/dL (0.6-1.0) Estimated GFR (Cockcroft-Gault) 10.8 Glucose Level 70 mg/dL (70-99) Calcium Level 8.3 mg/dL (8.5-10.1) Test 09/27/19 12:38 Glucose (Fingerstick) 79 mg/dL (70-99) Micro ANAEROBIC-AEROBIC CULTURE Preliminary Preliminary No Growth on 09/27/19 at 1059 Objective Assessment Gangrene of the distal right third finger with mild superimposed cellulitis. s/p partial amputation, closed on 09/[address] Villeda. Cultures neg to date. Right third finger pain from above. End-stage renal disease, on hemodialysis. nonfunctioning left upper extremity graft. s/p HD catheter placement, 09/25 Peripheral arterial disease. Diabetes mellitus. Peripheral neuropathy. Chronic pain. Fibromyalgia. Hypothyroidism. Hyperparathyroidism. History of congestive heart failure. Plan Plan of Care vancomycin and Zosyn. Probiotics f/u cultures Wound care as directed. D/w nursing Finger wound clean and no sign of infection Will D/c Abx Attending Co-Sign Attending Co-Sign The patient was seen and interviewed as well as examined at the bedside. The chart was reviewed. The case was discussed. Agree with the plan of care. GEOFFREY GUZMAN APRN Sep 27, 2019 13:21 YADIEL RIVAS MD Sep 27, 2019 15:39
[2019-09-27 15:02] VITALS: BP 138/39
--- NOTE | 2019-09-27 16:22 | NUR ---
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 RECEIVED ORDERS TO D/C TELE AND TRANSFER TO MED/SURG.
[2019-09-27 19:00] VITALS: BP 107/57
[2019-09-27] MEDS: HALOPERIDOL LACTATE 5 MG/ML VIAL. IM PRN (20:06)
[2019-09-27] MEDS: ATORVASTATIN CALCIUM 40 MG TABLET. PO SCH ×2 (21:00→22:49)
[2019-09-27] MEDS: LATANOPROST 0.005% OPHTH SOLUTION 2.5ML BOTTLE. OU SCH (22:51)
[2019-09-27 23:00] VITALS: BP 145/91
[2019-09-28 03:00] VITALS: BP 157/49
[2019-09-28] MEDS: oxyCODONE/APAP 10/325 1 TAB TABLET PO PRN ×4 (04:34→23:03)
[2019-09-28] MEDS: LEVOTHYROXINE 50 MCG TABLET PO SCH (06:23)
--- NOTE | 2019-09-28 06:59 | PDOC ---
Provider Note Provider Note Vascular Surgery right 3rd finger incision intact with sutures, no erythema, no drainage left arm AV graft thrombosed, cath in place s/p right 3rd finger amputation which is healing well thrombosed left arm AV graft - needs IR for percutaneous declot here at [facility] or access center if discharges Justicifation of Admission Dx: Justifications for Admission: Justification of Admission Dx: Yes NATE JENSEN MD Sep 28, 2019 06:59
[2019-09-28 07:00] VITALS: BP 145/71
[2019-09-28] MEDS: PANTOPRAZOLE 40 MG TABLET.DR. PO SCH (07:41)
[2019-09-28] MEDS: CLOPIDOGREL BISULFATE 75 MG TABLET PO SCH (07:41)
[2019-09-28] MEDS: SERTRALINE 50 MG TABLET. PO SCH (07:41)
[2019-09-28] MEDS: buPROPion XL 150 MG TAB.ER.24H. PO SCH (07:41)
[2019-09-28] MEDS: LACTOBACILLUS RHAMNOSUS GG 1 CAPSULE. PO SCH ×2 (07:41→20:15)
[2019-09-28] MEDS: FOLIC/VIT B COMP W-C (RENAL) TABLET. PO SCH (07:41)
[2019-09-28] MEDS: FAMOTIDINE 20 MG TABLET. PO SCH (07:41)
[2019-09-28] MEDS: LISINOPRIL 20 MG TABLET PO SCH (07:49)
[2019-09-28] MEDS: hydrALAZINE 25 MG TABLET PO SCH ×3 (07:50→20:14)
[2019-09-28] MEDS: amLODIPine BESYLATE 10 MG TABLET PO SCH (07:50)
[2019-09-28] MEDS: CARVEDILOL 6.25 MG TABLET. PO SCH ×2 (07:51→17:11)
--- NOTE | 2019-09-28 09:00 | NUR ---
Patient stated she only wanted apple juice for blood sugar of 52. RN gave patient apple juice, attempted to re check blood sugar. Patient refused. Patient allowed to have blood sugar checked, result 77. Will continue to monitor.
[2019-09-28] MEDS ORDERED: OXYC1TAB22 PO (10:23)
--- NOTE | 2019-09-28 10:28 | SNU/HH DC ---
DISCHARGE WITH HOME HEALTH DISCHARGE INFORMATION: Discharge Date: Sep 28, 2019 Final Diagnosis: osteomyelitis, finger, s/p amputation of dry gangrene , no sign of active infection. Acute encephalopathy secondary to metabolic etiology with hypoglycemia Hyperkalemia - K 7.4 ESRD - M[facility] patient. Fistula functioning again now. She is very intermittently compliant. Acute on chronic diastolic CHF - with elevated BNP and CXR findings concerning Accelerated HTN: labile Anasarca Noncompliance: missed dialysis, no transport. Suspect missed meds as well. Hx of severe LE PAD - S/P bilateral BKA. more recent to left leg, incision intact Debility Anxiety Chronic back pain Chronic anemia Elevated liver function tests Depression sec to med illness History of diabetes mellitus type 2 History of hypothyroidism Chronic pain syndrome History of bilateral BKA Problems Medical Problems: (1) Osteomyelitis Status: Acute (2) Osteomyelitis of finger Status: Acute Condition on Discharge: Stable CODE STATUS: Code Status: Full HOME HEALTH: Face to Face: I certify this patient is under my care and that I, or a nurse practitioner or physician's program support assistant working with me, had a face to face encounter that meets the physician face to face encounter requirements with this patient on 09/27 Medical Complications: Other RN For Eval/Treatment: Yes Pt Meets Homebound Status: Poor coordination w/ amb., Unsteady balance w/ amb,, Extreme weakness w/ amb. POST DISCHARGE ORDERS: Activity Instructions for Disc: Activity as tolerated Weight Bearing Status after Di: No restrictions Bathing Instructions: Shower-keep dressing dry, No Tub Bath until see DIET AFTER DISCHARGE: Renal Wound/Incision Care: No wound care needed CHECKS AFTER DISCHARGE: Checks after discharge: Check blood press - daily, Check blood sugar, ac/hs, Check your Temp as needed TREATMENT/EQUIPMENT ORDERS: Adaptive Equipment Issued: None Discharge Respiratory Equipmen: Oxygen CERTIFICATION STATEMENT: Certification Statement: Certification Statement: Based on the above finding, I certify that this patient is confined to the home and needs intermittent senior care care, physical therapy and/or speech therapy, or continues to need occupational therapy.~ This patient is under my care, and I have initiated the establishment of the plan of care.~ This patient will be followed by myself or a community physician who will periodically review the plan of care. Home Meds Active Scripts Oxycodone/Apap 10-325 (PERCOCET 10-325 MG TABLET ) 1 Each Tablet, 1 TAB PO PRN Q4HRS PRN for PAIN , #25 TAB Prov:HARDEEP MUÑOZ MD 09/28/19 Hydrocodone Bit/Acetaminophen (HYDROCODONE-APAP 5-325 ) 1 Tab Tablet, 1 TAB PO PRN Q6HRS PRN for PAIN for 4 Days, #12 TAB 0 Refills Prov:FELI SHAH MD 08/19/19 Guaifenesin/Dextromethorphan (GUAIFENESIN DM SYRUP) 5 Ml Syrup, 10 ML PO PRN Q6HRS PRN for COUGH for 10 Days, #120 MISC Prov:SANGEETHA MUELLER MD 02/12/19 Carvedilol (CARVEDILOL ) 6.25 Mg Tablet, 12.5 MG PO BIDWMEALS for htn, #60 TAB Prov:PRABHAKAR MOSQUERA MD 01/29/19 Hydralazine Hcl (HYDRALAZINE HCL) 25 Mg Tablet, 25 MG PO TID for htn, #10 TAB Prov:PRABHAKAR MOSQUERA MD 01/29/19 Insulin Lispro (HUMALOG) 100 Unit/1 Ml Insuln.pen, 0 UNITS SQ TIDWMEALS for glucose for 28 Days, #3 EACH Prov:SANGEETHA MUELLER MD 12/26/18 Lactobacillus Rhamnosus Gg (CULTURELLE) 1 Each Cap.sprink, 1 CAP PO BID for supplement for 30 Days, #60 CAP Prov:SANGEETHA MUELLER MD 12/26/18 Ondansetron (ONDANSETRON ODT) 4 Mg Tab.rapdis, 4 MG PO PRN Q6HRS PRN for NAUSEA/VOMITING 1ST CHOICE for 28 Days, #30 TAB Prov:SANGEETHA MUELLER MD 12/26/18 Clopidogrel Bisulfate (CLOPIDOGREL) 75 Mg Tablet, 75 MG PO DAILYWBKFT for pvd for 30 Days, #30 TAB Prov:SANGEETHA MUELLER MD 12/26/18 Folic Acid/Vitamin B Comp W-C (JOSE GUADALUPE-TORY TABLET) 0.8 Mg Tablet, 1 TAB PO DAILY for esrd, #30 TAB Prov:PRABHAKAR MOSQUERA MD 12/10/18 Acetaminophen (Tylenol) 325 Mg Capsule, 650 MG PO Q6-8HRS PRN for PAIN, #20 CAP Prov:KIMBERLY DONOHUE MD 11/14/18 Ranitidine Hcl (ZANTAC) 300 Mg Tablet, 1 TAB PO QHS for reflux, #90 TAB 3 Refills Prov:DANIELA ALMAZAN DO 08/29/18 Prochlorperazine Maleate (Compazine) 5 Mg Tablet, 5 MG PO PRN TID PRN for NAUSEA for 10 Days, #30 TAB Prov:FELI SHAH MD 08/26/18 [Pantoprazole] 40 MG TABLET. No Conflict Check, 40 MG PO DAILYAC for GERD for 30 Days, #30 2 Refills Prov:FELI SHAH MD 03/07/18 Reported Medications Bupropion Hcl (BUPROPION XL) 300 Mg Tab.er.24h, 1 TAB PO DAILYWBKFT for antidepressant, #30 TAB 2 Refills 09/23/19 Sertraline Hcl (ZOLOFT) 50 Mg Tablet, 50 MG PO DAILY for ANTI-DEPRESSANT, TAB 0 Refills 05/27/18 Lisinopril (LISINOPRIL) 20 Mg Tablet, 20 MG PO DAILY for FOR HYPERTENSION, TAB 0 Refills 05/27/18 Lipase/Protease/Amylase (ELVIA [place] 6,000 UNITS CAPSULE) 1 Each Capsule.dr, 1 TAB PO TID for digestion 04/23/18 Albuterol Sulfate (Proair Hfa) 8.5 Gm Hfa.aer.ad, 2 PUFF INH BID PRN for SHORTNESS OF BREATH, INHALER 03/22/18 Levothyroxine Sodium (LEVOTHYROXINE SODIUM) 50 Mcg Tablet, 1 TAB PO DAILY for thyroid, #30 TAB 5 Refills 03/22/18 Clonidine (CLONIDINE TTS-2 ) 1 Each Patch.tdwk, 1 PATCH TD WEEKLY for blood pressure, PATCH 03/22/18 Amlodipine Besylate (AMLODIPINE BESYLATE) 5 Mg Tablet, 10 MG PO DAILY for blood pressure 12/05/17 Atorvastatin Calcium (ATORVASTATIN CALCIUM) 40 Mg Tablet, 40 MG PO HS for cholesterol 12/05/17 Latanoprost (LATANOPROST) 2.5 Ml Drops, 1 DROP EACHEYE HS 09/24/17 HARDEEP MUÑOZ MD Sep 28, 2019 10:27
--- NOTE | 2019-09-28 10:30 | PDOC3 ---
Discharge Summary Visit Information Date of Admission: Sep 23, 2019 Date of Discharge: Sep 28, 2019 Final Diagnosis osteomyelitis, finger, s/p amputation of dry gangrene , no sign of active infection. Acute encephalopathy secondary to metabolic etiology with hypoglycemia Hyperkalemia - K 7.4 ESRD - MWF [facility] patient. Fistula functioning again now. She is very intermittently compliant. Acute on chronic diastolic CHF - with elevated BNP and CXR findings concerning Accelerated HTN: labile Anasarca Noncompliance: missed dialysis, no transport. Suspect missed meds as well. Hx of severe LE PAD - S/P bilateral BKA. more recent to left leg, incision intact Debility Anxiety Chronic back pain Chronic anemia Elevated liver function tests Depression sec to med illness History of diabetes mellitus type 2 History of hypothyroidism Chronic pain syndrome History of bilateral BKA Problems Medical Problems: (1) Osteomyelitis Status: Acute (2) Osteomyelitis of finger Status: Acute Brief Hospital Course Allergies Allergies Coded Allergies Type Severity Reaction Last Updated Verified No Known Drug Allergies 02/27/19 No Vital Signs Vital Signs Date Time Temp Pulse Resp B/P (MAP) Pulse Ox O2 Delivery O2 Flow Rate FiO2 09/28/19 09:41 Room Air 09/28/19 08:00 2.0 09/28/19 07:51 74 145/41 09/28/19 07:00 98.2 16 99 98.2 Lab Results Laboratory Tests Test 09/26/19 11:21 09/26/19 12:16 09/26/19 14:51 09/26/19 22:21 Glucose (Fingerstick) 141 mg/dL (70-99) 111 mg/dL (70-99) 80 mg/dL (70-99) Potassium Level 6.0 mmol/L (3.5-5.1) Test 09/27/19 07:55 09/27/19 08:20 09/27/19 12:38 09/27/19 16:54 Glucose (Fingerstick) 64 mg/dL (70-99) 79 mg/dL (70-99) 142 mg/dL (70-99) Sodium Level 137 mmol/L (136-145) Potassium Level 4.5 mmol/L (3.5-5.1) Chloride Level 99 mmol/L (98-107) Carbon Dioxide Level 29 mmol/L (21-32) Anion Gap 9 (6-14) Blood Urea Nitrogen 41 mg/dL (-20) Creatinine 5.0 mg/dL (0.6-1.0) Estimated GFR (Cockcroft-Gault) 10.8 Glucose Level 70 mg/dL (70-99) Calcium Level 8.3 mg/dL (8.5-10.1) Test 09/28/19 07:49 09/28/19 08:43 Glucose (Fingerstick) 52 mg/dL (70-99) 77 mg/dL (70-99) Laboratory Tests Test 09/27/19 12:38 09/27/19 16:54 09/28/19 07:49 09/28/19 08:43 Glucose (Fingerstick) 79 mg/dL (70-99) 142 mg/dL (70-99) 52 mg/dL (70-99) 77 mg/dL (70-99) Brief Hospital Course Ms. Smith is a 59-year-old female with end-stage renal disease, on hemodialysis; hypertension; diabetes mellitus; bilateral below-knee amputation; chronic pain; neuropathy, presented to the ER with confusion and pain in the right distal middle finger, which started several days prior to admission. X-ray of the finger showed severe calcific atherosclerosis and degenerative changes of the wrist and hand, osteomyelitis. taken to the or 09/24, pain, weakness, mult problems above Discharge Information Condition at Discharge: Improved Follow Up: Weeks Disposition/Orders: D/C to Home w/ HH Scheduled Amlodipine Besylate (Amlodipine Besylate) 5 Mg Tablet, 10 MG PO DAILY for blood pressure, (Reported) Entered as Reported by: JENNIE SMITH on 12/05/17809 Last Action: Continued on 09/23/191232 by FELI SHAH MD Atorvastatin Calcium (Atorvastatin Calcium) 40 Mg Tablet, 40 MG PO HS for cholesterol, (Reported) Entered as Reported by: JENNIE SMITH on 12/05/17809 Last Action: Continued on 09/23/191232 by FELI SHAH MD Bupropion Hcl (Bupropion Xl) 300 Mg Tab.er.24h, 1 TAB PO DAILYWBKFT for antidepressant, #30 Ref 2 (Reported) Entered as Reported by: Marilyn Garibay on 09/23/19 0420 Last Action: Converted on 09/23/191232 by FELI SHAH MD Carvedilol (Carvedilol ) 6.25 Mg Tablet, 12.5 MG PO BIDWMEALS for htn, #60 Prescribed by: PRABHAKAR MOSQUERA on 01/29/19 1113 Last Action: Continued on 09/23/19 123 by FELI SHAH MD Clonidine (Clonidine Tts-2 ) 1 Each Patch.tdwk, 1 PATCH TD WEEKLY for blood p ressure, (Reported) Entered as Reported by: VIKI PANG on 03/22/18 1727 Last Action: Continued on 09/23/19 123 by FELI SHAH MD Clopidogrel Bisulfate (Clopidogrel) 75 Mg Tablet, 75 MG PO DAILYWBKFT for pvd for 30 Days, #30 Prescribed by: SANGEETHA MUELLER MD on 12/26/187 Last Action: Continued on 09/23/191232 by FELI SHAH MD Folic Acid/Vitamin B Comp W-C (Pinky-Shreya Tablet) 0.8 Mg Tablet, 1 TAB PO DAILY for esrd, #30 Prescribed by: PRABHAKAR MOSQUERA on 12/10/18 1041 Last Action: Continued on 09/23/191232 by FELI SHAH MD Hydralazine Hcl (Hydralazine Hcl) 25 Mg Tablet, 25 MG PO TID for htn, #10 Prescribed by: PRABHAKAR MOSQUERA on 01/29/19 1113 Last Action: Continued on 09/23/191232 by FELI SHAH MD Insulin Lispro (Humalog) 100 Unit/1 Ml Insuln.pen, 0 UNITS SQ TIDWMEALS for glucose for 28 Days, #3 Prescribed by: SANGEETHA MUELLER MD on 12/26/18 124 Lactobacillus Rhamnosus Gg (Culturelle) 1 Each Cap.sprink, 1 CAP PO BID for supplement for 30 Days, #60 Prescribed by: SANGEETHA MUELLER MD on 12/26/181246 Last Action: Continued on 09/23/19 123 by FELI SHAH MD Latanoprost (Latanoprost) 2.5 Ml Drops, 1 DROP EACHEYE HS, (Reported) Entered as Reported by: ATTILA HAMMOND on 09/24/17 1649 Last Action: Continued on 09/23/19 1233 by FELI SHAH MD Levothyroxine Sodium (Levothyroxine Sodium) 50 Mcg Tablet, 1 TAB PO DAILY for thyroid, #30 Ref 5 (Reported) Entered as Reported by: VIKI APNG on 03/22/18 1727 Last Action: Continued on 09/23/19 1233 by FELI SHAH MD Lipase/Protease/Amylase (Creon Dr 6,000 Units Capsule) 1 Each Capsule.dr, 1 TAB PO TID for digestion, (Reported) Entered as Reported by: CAROL CHAN on 04/23/18 1236 Last Action: Converted on 09/23/19 1233 by FELI SHAH MD Lisinopril (Lisinopril) 20 Mg Tablet, 20 MG PO DAILY for FOR HYPERTENSION, Ref 0 (Reported) Entered as Reported by: LAUREN REAVES on 05/27/18 0749 Last Action: Continued on 09/23/19 1233 by FELI SHAH MD Ranitidine Hcl (Zantac) 300 Mg Tablet, 1 TAB PO QHS for reflux, #90 Ref 3 Prescribed by: DANIELA ALMAZAN D.O. on 08/29/18 2156 Last Action: Converted on 09/23/19 1233 by FELI SHAH MD Sertraline Hcl (Zoloft) 50 Mg Tablet, 50 MG PO DAILY for ANTI-DEPRESSANT, Ref 0 (Reported) Entered as Reported by: LAUREN REAVES on 05/27/18 0749 Last Action: Continued on 09/23/19 1233 by FELI SHAH MD [Pantoprazole] 40 MG TABLET., 40 MG PO DAILYAC for GERD for 30 Days, #30 Ref 2 Prescribed by: FELI SHAH MD on 03/07/18 1359 Last Action: Converted on 09/23/19 1233 by FELI SHAH MD Scheduled PRN Acetaminophen (Tylenol) 325 Mg Capsule, 650 MG PO Q6-8HRS PRN for PAIN, #20 Prescribed by: KIMBERLY DONOHUE MD on 11/14/18 2112 Albuterol Sulfate (Proair Hfa) 8.5 Gm Hfa.aer.ad, 2 PUFF INH BID PRN for SHORTNESS OF BREATH, (Reported) Entered as Reported by: VIKI PANG on 03/22/18 1727 Last Action: Continued on 09/23/19 1233 by FELI SHAH MD Guaifenesin/Dextromethorphan (Guaifenesin Dm Syrup) 5 Ml Syrup, 10 ML PO PRN Q6HRS PRN for COUGH for 10 Days, #120 Prescribed by: SANGEETHA MUELLER MD on 02/12/19 1404 Last Action: Continued on 09/23/19 1233 by FELI SHAH MD Ondansetron (Ondansetron Odt) 4 Mg Tab.rapdis, 4 MG PO PRN Q6HRS PRN for NAUSEA/VOMITING 1ST CHOICE for 28 Days, #30 Prescribed by: SANGEETHA MUELLER MD on 12/26/18 1247 Last Action: Continued on 09/23/19 1233 by FELI SHAH MD Oxycodone/Apap 10-325 (Percocet 10-325 Mg Tablet ) 1 Each Tablet, 1 TAB PO PRN Q4HRS PRN for PAIN , #25 Prescribed by: HARDEEP MUÑOZ on 09/28/19 1025 Prochlorperazine Maleate (Compazine) 5 Mg Tablet, 5 MG PO PRN TID PRN for NAUSEA for 10 Days, #30 Prescribed by: FELI SHAH MD on 08/26/18 1158 Last Action: Continued on 09/23/19 1233 by FELI SHAH MD Discontinued Medications Hydrocodone Bit/Acetaminophen (Hydrocodone-Apap 5-325 ) 1 Tab Tablet, 1 TAB PO PRN Q6HRS PRN for PAIN for 4 Days, #12 Ref 0 Prescribed by: FELI SHAH MD on 08/19/19 1523 Last Action: Continued on 09/23/19 1233 by FELI SHAH MD Patient Instructions Patient Instructions > 30 min face to face and exam 2 visits, plan reviewed, pain meds discussed x2 Justicifation of Admission Dx: Justifications for Admission: Justification of Admission Dx: Yes HARDEEP MUÑOZ MD Sep 28, 2019 10:30
[2019-09-28 11:00] VITALS: BP 115/38
--- NOTE | 2019-09-28 11:49 | PDOC ---
SUBJECTIVE ROS no complaints OBJECTIVE Vital Signs Vital Signs Date Time Temp Pulse Resp B/P (MAP) Pulse Ox O2 Delivery O2 Flow Rate FiO2 09/28/19 09:41 Room Air 09/28/19 08:00 2.0 09/28/19 07:51 74 145/41 09/28/19 07:00 98.2 16 99 98.2 I & 0 Intake and Output 09/28/19 07:00 Output Total 0 ml Balance 0 ml Output Urine Total 0 ml # Voids 1 # Bowel Movements 7 PHYSICAL EXAM Physical Exam General: NAD HEENT: PERRLA, OM moist Neck Supple Lungs: dec BS , Non labored Heart: S1S2, RRR, n Abdomen: Normal bowel sounds, Soft, No tenderness, No Calvillo Extremities: Bila BKA , s/p amputation Rt middle finger , AVF + Skin: No rash Neuro- Grossly Normal DIAGNOSIS/ASSESSMENT Assessment & Plan ESRD - On HD MWF No indication for HD today ACcess- AV access Fistulogram ordered 09/24- cancelled yesterday due to Na of 6 Declot as OP , Tunneled HDC placed 09/25 HyperKalemia- K 7.4 at presentation - Chronic Non compliance with HD and diet 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 follow-up with vascular in 2 weeks for suture removal AVG placed in September 2018 at [facility] - Left upper arm brachial artery to brachial vein arterial to venous graft placement using PTFE graft. 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 Can be dced from renal standpoin Declot of AV access- Discussed with AVIONICS MANAGER at the OP Unit COMMENT/RELEVANT DATA Meds Current Medications Medications (Trade) Dose Ordered Sig/Clarence Start Time Stop Time Status Last Admin Dose Admin Acetaminophen/ Hydrocodone Bitart (Lortab 5/325) 1 tab PRN Q6HRS PRN 09/23/19 12:45 09/24/19 10:14 DC 09/24/19 08:32 1 TAB Albumin Human 200 ml @ 200 mls/hr 1X PRN PRN 09/27/19 09:30 09/27/19 15:29 DC Albuterol Sulfate (Ventolin Neb Soln) 2.5 mg PRN BID PRN 09/23/19 12:45 Amlodipine Besylate (Norvasc) 10 mg DAILY 09/23/19 13:00 09/28/19 07:50 10 MG Amylase/Lipase/ Protease (Zenpep 5,000) 1 cap TIDWMEALS 09/23/19 17:00 09/28/19 07:41 1 CAP Atorvastatin Calcium (Lipitor) 40 mg HS 09/23/19 21:00 09/27/19 22:49 40 MG Bupropion HCl (Wellbutrin Xl) 300 mg DAILYWBKFT 09/24/19 08:00 09/28/19 07:41 300 MG Calcium Gluconate (Calcium Gluconate) 1,000 mg 1X ONCE 09/23/19 00:30 09/23/19 00:31 DC 09/23/19 01:00 1,000 MG Carvedilol (Coreg) 12.5 mg BIDWMEALS 09/23/19 17:00 09/28/19 07:51 12.5 MG Cefazolin Sodium 1 gm/Sodium Chloride 500 ml @ 500 mls/hr 1X ONCE 09/25/19 09:00 09/25/19 09:59 DC 09/25/19 15:07 Clonidine HCl (Catapres Tts-2) 1 patch WEEKLY 09/23/19 13:00 09/23/19 21:00 1 PATCH Clopidogrel Bisulfate (Plavix) 75 mg DAILYWBKFT 09/23/19 13:00 09/28/19 07:41 75 MG Dextrose (Dextrose 50%-Water Syringe) 25 gm STK-MED ONCE 09/24/19 15:19 09/24/19 15:19 DC Diphenhydramine HCl (Benadryl) 25 mg 1X PRN PRN 09/27/19 09:30 09/28/19 09:29 DC Famotidine (Pepcid) 40 mg QODAY 09/24/19 09:00 09/28/19 07:41 40 MG Fentanyl Citrate (Fentanyl 2ml Vial) 50 mcg PRN Q5MIN PRN 09/26/19 06:45 09/26/19 15:00 DC Glucagon (Glucagen) 1 mg PRN Q15MIN PRN 09/24/19 06:45 09/24/19 11:25 1 MG Glucose (Insta-Glucose) 15 gm PRN Q15MIN PRN 09/24/19 06:45 Guaifenesin (Robitussin Dm) 10 ml PRN Q6HRS PRN 09/23/19 12:45 Haloperidol Lactate (Haldol Inj) 5 mg PRN Q8HRS PRN 09/26/19 22:45 09/27/19 20:06 5 MG Heparin Sodium (Porcine) (Heparin Sodium) 10,000 unit STK-MED ONCE 09/25/19 09:24 09/25/19 14:20 DC Heparin Sodium/ Sodium Chloride 500 ml @ As Directed STK-MED ONCE 09/24/19 16:49 09/24/19 16:49 DC Heparin Sodium/ Sodium Chloride (HEPARIN for ARTERIAL LINE FLUSH) 1,000 unit 1X ONCE 09/24/19 16:15 09/24/19 16:16 DC 09/24/19 17:07 1,000 UNIT Hydralazine HCl (Apresoline) 25 mg TID 09/23/19 14:00 09/28/19 07:50 25 MG Hydromorphone HCl (Dilaudid) 0.5 mg PRN Q10MIN PRN 09/26/19 06:45 09/27/19 06:44 DC Info (PHARMACY MONITORING -- do not chart) 1 each PRN DAILY PRN 09/27/19 09:30 Insulin Human Regular (HumuLIN R VIAL) 10 unit 1X ONCE 09/23/19 00:30 09/23/19 00:31 DC 09/23/19 00:59 10 UNIT Iodixanol (Visipaque 320) 100 ml 1X ONCE 09/24/19 16:15 09/24/19 16:16 DC 09/24/19 17:05 86 ML Lactobacillus Rhamnosus (Culturelle) 1 cap BID 09/23/19 21:00 09/28/19 07:41 1 CAP Latanoprost (Xalatan) 1 drop HS 09/23/19 21:00 09/27/19 22:51 1 DROP Levothyroxine Sodium (Synthroid) 50 mcg DAILY06 09/24/19 06:00 09/28/19 06:23 50 MCG Lidocaine HCl (Buffered Lidocaine 1%) 3 ml 1X ONCE 09/24/19 16:15 09/24/19 16:16 DC 09/24/19 16:15 5 ML Lidocaine HCl (Lidocaine 1% 20ml Vial) 20 ml STK-MED ONCE 09/25/19 14:05 09/25/19 15:06 DC 09/25/19 14:05 7 ML Lidocaine HCl (Lidocaine Pf 2% Vial) 5 ml STK-MED ONCE 09/26/19 12:10 09/26/19 12:11 DC Lidocaine HCl (Xylocaine-Mpf 1% 2ml Vial) 2 ml PRN 1X PRN 09/24/19 18:00 09/25/19 17:59 DC Lidocaine/ Epinephrine (LIDOCAINE 1%-EPI 1:100,000 Multi-Dose) 20 ml 1X ONCE 09/26/19 14:00 09/26/19 14:01 DC 09/26/19 14:00 8 ML Lisinopril (Prinivil) 20 mg DAILY 09/23/19 13:00 09/28/19 07:49 20 MG Morphine Sulfate (Morphine Sulfate) 2 mg PRN Q2HR PRN 09/26/19 20:45 Nitroglycerin (Nitroglycerin) 200 mcg 1X ONCE 09/24/19 16:45 09/24/19 16:46 DC 09/24/19 17:08 200 MCG Ondansetron HCl (Zofran Odt) 4 mg PRN Q6HRS PRN 09/23/19 12:45 Ondansetron HCl (Zofran) 4 mg PRN Q6HRS PRN 09/24/19 18:00 09/25/19 17:59 DC Oxycodone/ Acetaminophen (Percocet 10/325) 1 tab PRN Q4HRS PRN 09/24/19 10:15 09/28/19 08:41 1 TAB Pantoprazole Sodium (Protonix) 40 mg DAILYAC 09/23/19 16:30 09/28/19 07:41 40 MG Piperacillin Sod/ Tazobactam Sod (Zosyn Per Pharmacy) 1 each PRN DAILY PRN 09/24/19 09:00 Piperacillin Sod/ Tazobactam Sod 2.25 gm/Sodium Chloride 50 ml @ 100 mls/hr Q8HRS 09/24/19 10:00 09/27/19 15:40 DC 09/26/19 19:32 100 MLS/HR Prochlorperazine Edisylate (Compazine) 5 mg PACU PRN PRN 09/26/19 06:45 09/26/19 15:00 DC Prochlorperazine Maleate (Compazine) 5 mg PRN TID PRN 09/23/19 12:45 Propofol (Diprivan) 200 mg STK-MED ONCE 09/26/19 12:10 09/26/19 12:11 DC Ringer's Solution 1,000 ml @ 30 mls/hr Q24H 09/26/19 07:00 09/27/19 06:59 DC Sertraline HCl (Zoloft) 50 mg DAILY 09/23/19 13:00 09/28/19 07:41 50 MG Sodium Polystyrene Sulfonate (Kayexalate) 15 gm 1X ONCE 09/26/19 06:00 09/26/19 06:01 DC 09/26/19 06:10 15 GM Sodium Chloride 1,000 ml @ 400 mls/hr Q2H30M PRN 09/27/19 09:28 09/27/19 21:27 DC Vancomycin HCl (Vanco Per Pharmacy) 1 each PRN DAILY PRN 09/24/19 09:00 09/27/19 15:40 DC 09/27/19 12:54 1 EACH Vancomycin HCl (Vancomycin Random Level) 1 each 1X ONCE 09/25/19 06:00 09/25/19 06:01 DC 09/25/19 06:00 1 EACH Vancomycin HCl 1.25 gm/Sodium Chloride 250 ml @ 166.667 mls/hr 1X ONCE 09/22/19 23:15 09/23/19 00:44 DC 09/23/19 00:02 166.667 MLS/HR Vancomycin HCl 500 mg/Sodium Chloride 100 ml @ 100 mls/hr QMWF 09/25/19 16:00 09/27/19 15:40 DC 09/25/19 15:39 100 MLS/HR Vitamin B Complex/ Vitamin C (Pinky-Shreya) 1 tab DAILY 09/23/19 13:00 09/28/19 07:41 1 TAB Lab Laboratory Tests Test 09/27/19 12:38 09/27/19 16:54 09/28/19 07:49 09/28/19 08:43 Glucose (Fingerstick) 79 mg/dL (70-99) 142 mg/dL (70-99) 52 mg/dL (70-99) 77 mg/dL (70-99) Test 09/28/19 11:06 Glucose (Fingerstick) 119 mg/dL (70-99) Results All relevant outside records, renal labs, imaging studies, telemetry/EKG's were reviewed. Justicifation of Admission Dx: Justifications for Admission: Justification of Admission Dx: Yes DOMINIQUE TSE MD Sep 28, 2019 11:48
--- NOTE | 2019-09-28 12:20 | NUR ---
Received orders to be discharged. Patient is a resident at [facility]. Staff Caprice Hutton (RN) tsering # [phone] and Blade (MELVIN) # [phone] are oncall. VM left. Awaiting call back.
[2019-09-28] MEDS: IV DEXTROSE 10% 1,000 ML IV SCH (13:08)
[2019-09-28 15:00] VITALS: BP 119/53
--- NOTE | 2019-09-28 16:35 | NUR ---
Patient does not want to discharge. Patient states that she will be compliant with treatment now and wants to "start now". Nursing Quality Control Tech [employer] notified and notified.
[2019-09-28 19:00] VITALS: BP 134/72
[2019-09-28] MEDS: HALOPERIDOL LACTATE 5 MG/ML VIAL. IM PRN (20:15)
[2019-09-28] MEDS: ATORVASTATIN CALCIUM 40 MG TABLET. PO SCH (20:15)
[2019-09-28] MEDS: LATANOPROST 0.005% OPHTH SOLUTION 2.5ML BOTTLE. OU SCH (20:16)
[2019-09-28 22:49] VITALS: BP_SYST 127; BP_DIAS 28; BP_DIAS 58
[2019-09-28] MEDS: MORPHINE SULFATE 2 MG/ML VIAL. IM PRN (23:50)
[2019-09-29 03:01] VITALS: BP 97/59
[2019-09-29] MEDS: PANTOPRAZOLE 40 MG TABLET.DR. PO SCH (05:52)
[2019-09-29] MEDS: LEVOTHYROXINE 50 MCG TABLET PO SCH (05:52)
[2019-09-29] MEDS: oxyCODONE/APAP 10/325 1 TAB TABLET PO PRN ×3 (05:53→19:33)
[2019-09-29 07:00] VITALS: BP 96/60
[2019-09-29] MEDS: IV DEXTROSE 10% 1,000 ML IV SCH (07:17)
[2019-09-29] MEDS ORDERED: IV NORMAL SALINE 1000ML BAG 1,000 ML IV ONE (07:45)
[2019-09-29] MEDS ORDERED: MORPHINE SULFATE 4 MG/ML VIAL. IV PRN (07:45)
[2019-09-29] MEDS ORDERED: ONDANSETRON PF 4 MG/2 ML VIAL. IVP PRN (07:45)
[2019-09-29] MEDS: HALOPERIDOL LACTATE 5 MG/ML VIAL. IM PRN ×2 (07:51→23:33)
[2019-09-29] MEDS: MORPHINE SULFATE 2 MG/ML VIAL. IM PRN ×3 (07:52→22:24)
[2019-09-29] MEDS: CLOPIDOGREL BISULFATE 75 MG TABLET PO SCH (07:58)
[2019-09-29] MEDS: SERTRALINE 50 MG TABLET. PO SCH (07:58)
[2019-09-29] MEDS: buPROPion XL 150 MG TAB.ER.24H. PO SCH (07:58)
[2019-09-29] MEDS: LACTOBACILLUS RHAMNOSUS GG 1 CAPSULE. PO SCH ×2 (07:58→19:32)
[2019-09-29] MEDS: FOLIC/VIT B COMP W-C (RENAL) TABLET. PO SCH (07:58)
[2019-09-29] MEDS: CARVEDILOL 6.25 MG TABLET. PO SCH ×2 (08:00→17:00)
[2019-09-29] MEDS: LISINOPRIL 20 MG TABLET PO SCH (09:00)
[2019-09-29] MEDS: hydrALAZINE 25 MG TABLET PO SCH ×3 (09:00→21:01)
[2019-09-29] MEDS: amLODIPine BESYLATE 10 MG TABLET PO SCH (09:00)
--- NOTE | 2019-09-29 09:53 | NUR ---
Blood pressure of 96/60. BP medication held. patient refusing retake of medication. Patient states she will take a nap now.
--- NOTE | 2019-09-29 09:56 | NUR ---
Patient refusing blood sugar re check
--- NOTE | 2019-09-29 10:23 | NUR ---
Called [facility] ( [phone] ) no answer, was left .
[2019-09-29 11:00] VITALS: BP 139/45
--- NOTE | 2019-09-29 11:07 | PDOC ---
PROGRESS NOTES Chief Complaint Chief Complaint LATE ENTRY, pt seen 09/27 tried to DC, she refused, daughter feels she is not cared for at her housing situation with [employer] RN could not get ahold of and RN for DC plan, for report Postop day 2 finger amputation Acute encephalopathy secondary to metabolic etiology with hypoglycemia Right middle finger pain - dry gangrene , no sign of active infection. Hyperkalemia - K 7.4 ESRD - MWF [facility] patient. Fistula functioning again now. She is very intermittently compliant. Acute on chronic diastolic CHF - with elevated BNP and CXR findings concerning Accelerated HTN: labile Anasarca Noncompliance: missed dialysis, no transport. Suspect missed meds as well. Hx of severe LE PAD - S/P bilateral BKA. more recent to left leg, incision intact Debility HX NONCOMPLIANCE Anxiety Chronic back pain Chronic anemia Elevated liver function tests Depression sec to med illness History of diabetes mellitus type 2 History of hypothyroidism Chronic pain syndrome History of bilateral BKA History of Present Illness History of Present Illness 09/27/2019 Patient seen and examined She is currently getting dialysis Complains of pain Chart reviewed Discussed with RN 09/25/2021 Patient seen and examined She is resting with no apparent distress She did have her finger amputated yesterday Discussed with RN Chart reviewed 09/25/2019 Patient seen and examined She is currently on dialysis Surgery is scheduled for this afternoon I believe Discussed with RN Chart reviewed 09/24/2019 Patient seen and examined She complains of finger pain Discussed with nurse Chart reviewed We are having a difficult time getting IV access Vitals Vitals Vital Signs Date Time Temp Pulse Resp B/P (MAP) Pulse Ox O2 Delivery O2 Flow Rate FiO2 09/29/19 08:22 Room Air 09/29/19 07:00 98.2 67 20 96/60 (72) 96 98.2 09/29/19 06:53 2.0 Physical Exam Physical Exam GENERAL: Propped up in bed, alert, coop HEENT: Oral cavity pink. No lesions seen NECK: Supple. LUNGS: Decreased breath sounds at the bases, nonlabored. HEART: S1, S2. regular ABDOMEN: Obese, soft, nontender, bowel sounds present. GENITOURINARY: No Calvillo. EXTREMITIES: Bilateral BKA stump healthy, Right 2nd amputation well-approx/sutures, clean SKIN: No signs of rash. warm to touch. NEUROLOGIC: Alert, answering questions appropriately [facility] Non-tunneled triple-lumen CVC (09/23) out Left-sided tunnelled HDC (09/25) without signs of complications Heart: Regular rate, Normal S1, Normal S2 Lungs: Clear Abdomen: Soft, No tenderness Extremities: Other (Right hand with clean dry intact dressing) Skin: Other (Right upper extremity finger amputation site is clean, dry, and intact.) Labs LABS Laboratory Tests Test 09/28/19 11:06 09/28/19 16:55 09/28/19 20:03 09/29/19 07:41 Glucose (Fingerstick) 119 mg/dL (70-99) 127 mg/dL (70-99) 100 mg/dL (70-99) 46 mg/dL (70-99) Test 09/29/19 08:25 Glucose (Fingerstick) 68 mg/dL (70-99) Assessment and Plan Assessmemt and Plan Problems Medical Problems: (1) Osteomyelitis Status: Acute (2) Osteomyelitis of finger Status: Acute Comment Review of Relevant I have reviewed the following items pamela (where applicable) has been applied. Labs Laboratory Tests Test 09/27/19 12:38 09/27/19 16:54 09/28/19 07:49 09/28/19 08:43 Glucose (Fingerstick) 79 mg/dL (70-99) 142 mg/dL (70-99) 52 mg/dL (70-99) 77 mg/dL (70-99) Test 09/28/19 11:06 09/28/19 16:55 09/28/19 20:03 09/29/19 07:41 Glucose (Fingerstick) 119 mg/dL (70-99) 127 mg/dL (70-99) 100 mg/dL (70-99) 46 mg/dL (70-99) Test 09/29/19 08:25 Glucose (Fingerstick) 68 mg/dL (70-99) Laboratory Tests Test 09/28/19 11:06 09/28/19 16:55 09/28/19 20:03 09/29/19 07:41 Glucose (Fingerstick) 119 mg/dL (70-99) 127 mg/dL (70-99) 100 mg/dL (70-99) 46 mg/dL (70-99) Test 09/29/19 08:25 Glucose (Fingerstick) 68 mg/dL (70-99) Microbiology 09/25/19 Gram Stain - Final, Resulted 09/25/19 Aerobic and Anaerobic Culture - Preliminary, Resulted Medications Current Medications Morphine Sulfate (Morphine Sulfate) 2 mg PRN Q2HR PRN IV PAIN Last administered on 09/23/19at 00:02; Start 09/22/19 at 21:45; Stop 09/23/19 at 21:44; Status DC Vancomycin HCl 1.25 gm/Sodium Chloride 250 ml @ 166.667 mls/hr 1X ONCE IV Last administered on 09/23/19at 00:02; Start 09/22/19 at 23:15; Stop 09/23/19 at 00:44; Status DC Ondansetron HCl (Zofran) 4 mg 1X ONCE IVP Last administered on 09/23/19at 00:57; Start 09/23/19 at 00:15; Stop 09/23/19 at 00:16; Status DC Calcium Gluconate (Calcium Gluconate) 1,000 mg 1X ONCE IVP Last administered on 09/23/19at 01:00; Start 09/23/19 at 00:30; Stop 09/23/19 at 00:31; Status DC Dextrose (Dextrose 50%-Water Syringe) 25 gm 1X ONCE IV Last administered on 09/23/19at 00:59; Start 09/23/19 at 00:30; Stop 09/23/19 at 00:31; Status DC Insulin Human Regular (HumuLIN R VIAL) 10 unit 1X ONCE IV Last administered on 09/23/19at 00:59; Start 09/23/19 at 00:30; Stop 09/23/19 at 00:31; Status DC Sodium Polystyrene Sulfonate (Kayexalate) 30 gm 1X ONCE PO ; Start 09/23/19 at 00:30; Stop 09/23/19 at 00:31; Status DC Sodium Chloride 1,000 ml @ 1,000 mls/hr Q1H PRN IV hypotension; Start 09/23/19 at 09:38; Stop 09/23/19 at 15:37; Status DC Sodium Chloride 1,000 ml @ 400 mls/hr Q2H30M PRN IV PATENCY; Start 09/23/19 at 09:38; Stop 09/23/19 at 21:38; Status DC Info (PHARMACY MONITORING -- do not chart) 1 each PRN DAILY PRN MC SEE COMMENTS; Start 09/23/19 at 09:45; Status UNV Info (PHARMACY MONITORING -- do not chart) 1 each PRN DAILY PRN MC SEE COMMENTS; Start 09/23/19 at 09:45; Status Cancel Albuterol Sulfate (Ventolin Neb Soln) 2.5 mg PRN BID PRN INH SHORTNESS OF BREATH; Start 09/23/19 at 12:45 Amlodipine Besylate (Norvasc) 10 mg DAILY PO Last administered on 09/28/19 07:50; Start 09/23/19 at 13:00 Atorvastatin Calcium (Lipitor) 40 mg HS PO Last administered on 09/28/19 20:15; Start 09/23/19 at 21:00 Carvedilol (Coreg) 12.5 mg BIDWMEALS PO Last administered on 09/28/19 17:11; Start 09/23/19 at 17:00 Clonidine HCl (Catapres Tts-2) 1 patch WEEKLY TD Last administered on 09/23/19at 21:00; Start 09/23/19 at 13:00 Clopidogrel Bisulfate (Plavix) 75 mg DAILYWBKFT PO Last administered on 09/29/19 07:58; Start 09/23/19 at 13:00 Vitamin B Complex/ Vitamin C (Pinky-Shreya) 1 tab DAILY PO Last administered on 09/29/19at 07:58; Start 09/23/19 at 13:00 Guaifenesin (Robitussin Dm) 10 ml PRN Q6HRS PRN PO COUGH; Start 09/23/19 at 12:45 Hydralazine HCl (Apresoline) 25 mg TID PO Last administered on 09/28/19at 20:14; Start 09/23/19 at 14:00 Acetaminophen/ Hydrocodone Bitart (Lortab 5/325) 1 tab PRN Q6HRS PRN PO MODERTE PAIN Last administered on 09/24/19 08:32; Start 09/23/19 at 12:45; Stop 09/24/19 at 10:14; Status DC Lactobacillus Rhamnosus (Culturelle) 1 cap BID PO Last administered on 09/29/19 07:58; Start 09/23/19 at 21:00 Latanoprost (Xalatan) 1 drop HS OU Last administered on 09/28/19 20:16; Start 09/23/19 at 21:00 Levothyroxine Sodium (Synthroid) 50 mcg DAILY06 PO Last administered on 09/29/19 05:52; Start 09/24/19 at 06:00 Lisinopril (Prinivil) 20 mg DAILY PO Last administered on 09/28/19 07:49; Start 09/23/19 at 13:00 Ondansetron HCl (Zofran Odt) 4 mg PRN Q6HRS PRN PO NAUSEA/VOMITING 1ST CHOICE; Start 09/23/19 at 12:45 Prochlorperazine Maleate (Compazine) 5 mg PRN TID PRN PO NAUSEA (2nd Choice); Start 09/23/19 at 12:45 Sertraline HCl (Zoloft) 50 mg DAILY PO Last administered on 09/29/19at 07:58; Start 09/23/19 at 13:00 Bupropion HCl (Wellbutrin Xl) 300 mg DAILYWBKFT PO Last administered on 09/29/19at 07:58; Start 09/24/19 at 08:00 Amylase/Lipase/ Protease (Zenpep 5,000) 1 cap TIDWMEALS PO Last administered on 09/29/19 07:58; Start 09/23/19 at 17:00 Famotidine (Pepcid) 40 mg QODAY PO Last administered on 09/28/19at 07:41; Start 09/24/19 at 09:00 Pantoprazole Sodium (Protonix) 40 mg DAILYAC PO Last administered on 09/29/19 05:52; Start 09/23/19 at 16:30 Glucagon (Glucagen) 1 mg 1X ONCE IM Last administered on 09/23/19at 17:06; Start 09/23/19 at 17:00; Stop 09/23/19 at 17:01; Status DC Dextrose (Dextrose 50%-Water Syringe) 12.5 gm PRN Q15MIN PRN IV SEE COMMENTS Last administered on 09/24/19at 15:22; Start 09/23/19 at 17:45 Glucagon (Glucagen) 1 mg 1X ONCE IM Last administered on 09/23/19at 17:42; Start 09/23/19 at 17:45; Stop 09/23/19 at 17:46; Status DC Glucagon (Glucagen) 1 mg 1X ONCE IM Last administered on 09/24/19at 06:37; Start 09/24/19 at 06:30; Stop 09/24/19 at 06:31; Status DC Glucagon (Glucagen) 1 mg PRN Q15MIN PRN IM LOW BLOOD SUGAR Last administered on 09/24/19at 11:25; Start 09/24/19 at 06:45 Glucose (Insta-Glucose) 15 gm PRN Q15MIN PRN PO LOW BLOOD SUGAR; Start 09/24/19 at 06:45 Vancomycin HCl (Vanco Per Pharmacy) 1 each PRN DAILY PRN MC SEE COMMENTS Last administered on 09/27/19at 12:54; Start 09/24/19 at 09:00; Stop 09/27/19 at 15:40; Status DC Piperacillin Sod/ Tazobactam Sod (Zosyn Per Pharmacy) 1 each PRN DAILY PRN MC SEE COMMENTS; Start 09/24/19 at 09:00 Piperacillin Sod/ Tazobactam Sod 2.25 gm/Sodium Chloride 50 ml @ 100 mls/hr Q8HRS IV Last administered on 09/26/19at 19:32; Start 09/24/19 at 10:00; Stop 09/27/19 at 15:40; Status DC Ondansetron HCl (Zofran) 4 mg PRN Q6HRS PRN IV NAUSEA/VOMITING; Start 09/25/19 at 07:00; Stop 09/26/19 at 06:59; Status DC Fentanyl Citrate (Fentanyl 2ml Vial) 25 mcg PRN Q5MIN PRN IV MILD PAIN 1-3; Start 09/25/19 at 07:00; Stop 09/26/19 at 06:59; Status DC Fentanyl Citrate (Fentanyl 2ml Vial) 50 mcg PRN Q5MIN PRN IV MODERATE TO SEVERE PAIN Last administered on 09/24/19at 18:05; Start 09/25/19 at 07:00; Stop 09/26/19 at 06:59; Status DC Morphine Sulfate (Morphine Sulfate) 1 mg PRN Q10MIN PRN IV SEVERE PAIN 7-10; Start 09/25/19 at 07:00; Stop 09/26/19 at 06:59; Status DC Ringer's Solution 1,000 ml @ 30 mls/hr Q24H IV ; Start 09/25/19 at 07:00; Stop 09/25/19 at 18:59; Status DC Lidocaine HCl (Xylocaine-Mpf 1% 2ml Vial) 2 ml PRN 1X PRN ID PRIOR TO IV START; Start 09/25/19 at 07:00; Stop 09/26/19 at 06:59; Status DC Hydromorphone HCl (Dilaudid) 0.5 mg PRN Q10MIN PRN IV SEV PAIN, Second choice; Start 09/25/19 at 07:00; Stop 09/26/19 at 06:59; Status DC Prochlorperazine Edisylate (Compazine) 5 mg PACU PRN PRN IV NAUSEA, MRX1; Start 09/25/19 at 07:00; Stop 09/26/19 at 06:59; Status DC Oxycodone/ Acetaminophen (Percocet 10/325) 1 tab PRN Q4HRS PRN PO PAIN Last administered on 09/29/19at 05:53; Start 09/24/19 at 10:15 Ondansetron HCl (Zofran) 4 mg PRN Q6HRS PRN IV NAUSEA/VOMITING; Start 09/25/19 at 07:00; Stop 09/26/19 at 06:59; Status DC Fentanyl Citrate (Fentanyl 2ml Vial) 25 mcg PRN Q5MIN PRN IV MILD PAIN 1-3; Start 09/25/19 at 07:00; Stop 09/26/19 at 06:59; Status DC Fentanyl Citrate (Fentanyl 2ml Vial) 50 mcg PRN Q5MIN PRN IV MODERATE TO SEVERE PAIN; Start 09/25/19 at 07:00; Stop 09/26/19 at 06:59; Status DC Morphine Sulfate (Morphine Sulfate) 1 mg PRN Q10MIN PRN IV SEVERE PAIN 7-10; Start 09/25/19 at 07:00; Stop 09/26/19 at 06:59; Status DC Ringer's Solution 1,000 ml @ 30 mls/hr Q24H IV ; Start 09/25/19 at 07:00; Stop 09/25/19 at 18:59; Status DC Lidocaine HCl (Xylocaine-Mpf 1% 2ml Vial) 2 ml PRN 1X PRN ID PRIOR TO IV START; Start 09/25/19 at 07:00; Stop 09/26/19 at 06:59; Status UNV Hydromorphone HCl (Dilaudid) 0.5 mg PRN Q10MIN PRN IV SEV PAIN, Second choice; Start 09/25/19 at 07:00; Stop 09/26/19 at 06:59; Status UNV Prochlorperazine Edisylate (Compazine) 5 mg PACU PRN PRN IV NAUSEA, MRX1; Start 09/25/19 at 07:00; Stop 09/26/19 at 06:59; Status UNV Ondansetron HCl (Zofran) 4 mg PRN Q6HRS PRN IV NAUSEA/VOMITING; Start 09/24/19 at 11:00; Stop 09/25/19 at 10:59; Status UNV Fentanyl Citrate (Fentanyl 2ml Vial) 25 mcg PRN Q5MIN PRN IV MILD PAIN 1-3; Start 09/24/19 at 11:00; Stop 09/25/19 at 10:59; Status UNV Fentanyl Citrate (Fentanyl 2ml Vial) 50 mcg PRN Q5MIN PRN IV MODERATE TO SEVERE PAIN; Start 09/24/19 at 11:00; Stop 09/25/19 at 10:59; Status UNV Morphine Sulfate (Morphine Sulfate) 1 mg PRN Q10MIN PRN IV SEVERE PAIN 7-10; Start 09/24/19 at 11:00; Stop 09/25/19 at 10:59; Status UNV Ringer's Solution 1,000 ml @ 30 mls/hr Q24H IV ; Start 09/24/19 at 10:54; Stop 09/24/19 at 22:53; Status DC Lidocaine HCl (Xylocaine-Mpf 1% 2ml Vial) 2 ml PRN 1X PRN ID PRIOR TO IV START; Start 09/24/19 at 11:00; Stop 09/25/19 at 10:59; Status UNV Hydromorphone HCl (Dilaudid) 0.5 mg PRN Q10MIN PRN IV SEV PAIN, Second choice; Start 09/24/19 at 11:00; Stop 09/25/19 at 10:59; Status UNV Prochlorperazine Edisylate (Compazine) 5 mg PACU PRN PRN IV NAUSEA, MRX1; Start 09/24/19 at 11:00; Stop 09/25/19 at 10:59; Status UNV Dextrose 1,000 ml @ 50 mls/hr Q20H IV Last administered on 09/25/19at 22:52; Start 09/24/19 at 11:45 Vancomycin HCl (Vancomycin Random Level) 1 each 1X ONCE MC Last administered on 09/25/19at 06:00; Start 09/25/19 at 06:00; Stop 09/25/19 at 06:01; Status DC Lidocaine HCl (Buffered Lidocaine 1%) 3 ml STK-MED ONCE .ROUTE ; Start 09/24/19 at 13:50; Stop 09/24/19 at 13:51; Status DC Iodixanol (Visipaque 320) 100 ml STK-MED ONCE .ROUTE ; Start 09/24/19 at 13:50; Stop 09/24/19 at 13:51; Status DC Heparin Sodium/ Sodium Chloride 1,000 ml @ As Directed STK-MED ONCE .ROUTE ; Start 09/24/19 at 13:51; Stop 09/24/19 at 13:51; Status DC Propofol (Diprivan) 200 mg STK-MED ONCE IV ; Start 09/24/19 at 15:15; Stop 09/24/19 at 15:16; Status DC Lidocaine HCl (Lidocaine Pf 2% Vial) 5 ml STK-MED ONCE .ROUTE ; Start 09/24/19 at 15:15; Stop 09/24/19 at 15:16; Status DC Dextrose (Dextrose 50%-Water Syringe) 25 gm STK-MED ONCE IV ; Start 09/24/19 at 15:19; Stop 09/24/19 at 15:19; Status DC Heparin Sodium/ Sodium Chloride (HEPARIN for ARTERIAL LINE FLUSH) 1,000 unit 1X ONCE IART Last administered on 09/24/19at 17:06; Start 09/24/19 at 16:15; Stop 09/24/19 at 16:16; Status DC Heparin Sodium/ Sodium Chloride (HEPARIN for ARTERIAL LINE FLUSH) 1,000 unit 1X ONCE IART Last administered on 09/24/19at 17:07; Start 09/24/19 at 16:15; Stop 09/24/19 at 16:16; Status DC Lidocaine HCl (Buffered Lidocaine 1%) 3 ml 1X ONCE IJ Last administered on 09/24/19at 16:15; Start 09/24/19 at 16:15; Stop 09/24/19 at 16:16; Status DC Iodixanol (Visipaque 320) 100 ml 1X ONCE IART Last administered on 09/24/19at 17:05; Start 09/24/19 at 16:15; Stop 09/24/19 at 16:16; Status DC Heparin Sodium (Porcine) (Heparin Sodium) 10,000 unit STK-MED ONCE .ROUTE ; Start 09/24/19 at 16:21; Stop 09/24/19 at 16:21; Status DC Heparin Sodium/ Sodium Chloride 500 ml @ As Directed STK-MED ONCE .ROUTE ; Start 09/24/19 at 16:21; Stop 09/24/19 at 16:22; Status DC Nitroglycerin (Nitroglycerin) 200 mcg 1X ONCE IART Last administered on 09/24/19at 17:08; Start 09/24/19 at 16:45; Stop 09/24/19 at 16:46; Status DC Heparin Sodium/ Sodium Chloride 500 ml @ As Directed STK-MED ONCE .ROUTE ; Start 09/24/19 at 16:49; Stop 09/24/19 at 16:49; Status DC Fentanyl Citrate (Fentanyl 2ml Vial) 100 mcg STK-MED ONCE .ROUTE ; Start 09/24/19 at 17:41; Stop 09/24/19 at 17:41; Status DC Ondansetron HCl (Zofran) 4 mg PRN Q6HRS PRN IV NAUSEA/VOMITING; Start 09/24/19 at 18:00; Stop 09/25/19 at 17:59; Status DC Fentanyl Citrate (Fentanyl 2ml Vial) 25 mcg PRN Q5MIN PRN IV MILD PAIN 1-3; Start 09/24/19 at 18:00; Stop 09/25/19 at 17:59; Status DC Fentanyl Citrate (Fentanyl 2ml Vial) 50 mcg PRN Q5MIN PRN IV MODERATE TO SEVERE PAIN; Start 09/24/19 at 18:00; Stop 09/25/19 at 17:59; Status DC Morphine Sulfate (Morphine Sulfate) 1 mg PRN Q10MIN PRN IV SEVERE PAIN 7-10; Start 09/24/19 at 18:00; Stop 09/25/19 at 17:59; Status DC Ringer's Solution 1,000 ml @ 30 mls/hr Q24H IV ; Start 09/24/19 at 17:51; Stop 09/25/19 at 05:50; Status DC Lidocaine HCl (Xylocaine-Mpf 1% 2ml Vial) 2 ml PRN 1X PRN ID PRIOR TO IV START; Start 09/24/19 at 18:00; Stop 09/25/19 at 17:59; Status DC Hydromorphone HCl (Dilaudid) 0.5 mg PRN Q10MIN PRN IV SEV PAIN, Second choice; Start 09/24/19 at 18:00; Stop 09/25/19 at 17:59; Status DC Prochlorperazine Edisylate (Compazine) 5 mg PACU PRN PRN IV NAUSEA, MRX1; Start 09/24/19 at 18:00; Stop 09/25/19 at 17:59; Status DC Morphine Sulfate (Morphine Sulfate) 2 mg PRN Q2HR PRN IV PAIN Last administered on 09/26/19at 07:34; Start 09/24/19 at 18:45 Sodium Chloride 1,000 ml @ 1,000 mls/hr Q1H PRN IV hypotension Last administered on 09/25/19at 13:21; Start 09/25/19 at 07:42; Stop 09/25/19 at 13:41; Status DC Albumin Human 200 ml @ 200 mls/hr 1X PRN PRN IV Hypotension; Start 09/25/19 at 07:45; Stop 09/25/19 at 13:44; Status DC Sodium Chloride 1,000 ml @ 400 mls/hr Q2H30M PRN IV PATENCY; Start 09/25/19 at 07:42; Stop 09/25/19 at 19:41; Status DC Info (PHARMACY MONITORING -- do not chart) 1 each PRN DAILY PRN MC SEE COMMENTS; Start 09/25/19 at 07:45 Info (PHARMACY MONITORING -- do not chart) 1 each PRN DAILY PRN MC SEE COMMENTS; Start 09/25/19 at 07:45; Status UNV Cefazolin Sodium 1 gm/Sodium Chloride 500 ml @ 500 mls/hr 1X ONCE IRR Last a dministered on 09/25/19at 15:07; Start 09/25/19 at 09:00; Stop 09/25/19 at 09:59; Status DC Heparin Sodium (Porcine) (Heparin Sodium) 2,000 unit 1X ONCE INT CAT ; Start 09/25/19 at 09:30; Stop 09/25/19 at 09:31; Status DC Vancomycin HCl 500 mg/Sodium Chloride 100 ml @ 100 mls/hr QMWF IV Last administered on 09/25/19at 15:39; Start 09/25/19 at 16:00; Stop 09/27/19 at 15:40; Status DC Heparin Sodium (Porcine) (Heparin Sodium) 10,000 unit STK-MED ONCE .ROUTE ; Start 09/25/19 at 09:24; Stop 09/25/19 at 14:20; Status DC Ringer's Solution 1,000 ml @ 30 mls/hr Q24H IV ; Start 09/26/19 at 07:00; Stop 09/26/19 at 18:59; Status Cancel Lidocaine HCl (Lidocaine 1% 20ml Vial) 20 ml STK-MED ONCE .ROUTE ; Start 09/25/19 at 15:05; Stop 09/25/19 at 15:05; Status DC Lidocaine HCl (Lidocaine 1% 20ml Vial) 20 ml STK-MED ONCE INJ Last administered on 09/25/19at 14:05; Start 09/25/19 at 14:05; Stop 09/25/19 at 15:06; Status DC Sodium Polystyrene Sulfonate (Kayexalate) 15 gm 1X ONCE PO Last administered on 09/26/19at 06:10; Start 09/26/19 at 06:00; Stop 09/26/19 at 06:01; Status DC Fentanyl Citrate (Fentanyl 2ml Vial) 50 mcg PRN Q5MIN PRN IVP MODERATE TO SEVERE PAIN; Start 09/26/19 at 06:45; Stop 09/26/19 at 15:00; Status DC Morphine Sulfate (Morphine Sulfate) 1 mg PRN Q10MIN PRN IVP SEVERE PAIN 7-10; Start 09/26/19 at 06:45; Stop 09/26/19 at 15:00; Status DC Ringer's Solution 1,000 ml @ 30 mls/hr Q24H IV ; Start 09/26/19 at 07:00; Stop 09/27/19 at 06:59; Status DC Hydromorphone HCl (Dilaudid) 0.5 mg PRN Q10MIN PRN IVP SEV PAIN, Second choice; Start 09/26/19 at 06:45; Stop 09/27/19 at 06:44; Status DC Prochlorperazine Edisylate (Compazine) 5 mg PACU PRN PRN IVP NAUSEA, MRX1; Start 09/26/19 at 06:45; Stop 09/26/19 at 15:00; Status DC Sodium Chloride 1,000 ml @ 1,000 mls/hr Q1H PRN IV hypotension; Start 09/26/19 at 08:56; Stop 09/26/19 at 14:55; Status DC Albumin Human 200 ml @ 200 mls/hr 1X PRN PRN IV Hypotension; Start 09/26/19 at 09:00; Stop 09/26/19 at 14:59; Status DC Sodium Chloride 1,000 ml @ 400 mls/hr Q2H30M PRN IV PATENCY; Start 09/26/19 at 08:56; Stop 09/26/19 at 20:55; Status DC Info (PHARMACY MONITORING -- do not chart) 1 each PRN DAILY PRN MC SEE COMMENTS; Start 09/26/19 at 09:00; Status UNV Info (PHARMACY MONITORING -- do not chart) 1 each PRN DAILY PRN MC SEE COMMENTS; Start 09/26/19 at 09:00; Status Cancel Propofol (Diprivan) 200 mg STK-MED ONCE IV ; Start 09/26/19 at 12:10; Stop 09/26/19 at 12:11; Status DC Lidocaine HCl (Lidocaine Pf 2% Vial) 5 ml STK-MED ONCE .ROUTE ; Start 09/26/19 at 12:10; Stop 09/26/19 at 12:11; Status DC Propofol (Diprivan) 200 mg STK-MED ONCE IV ; Start 09/26/19 at 12:10; Stop 09/26/19 at 12:11; Status DC Lidocaine/ Epinephrine (LIDOCAINE 1%-EPI 1:100,000 Multi-Dose) 20 ml STK-MED ONCE .ROUTE ; Start 09/26/19 at 12:55; Stop 09/26/19 at 12:56; Status DC Lidocaine/ Epinephrine (LIDOCAINE 1%-EPI 1:100,000 Multi-Dose) 20 ml 1X ONCE INJ Last administered on 7/2/20at 14:00; Start 09/26/19 at 14:00; Stop 09/26/19 at 14:01; Status DC Morphine Sulfate (Morphine Sulfate) 2 mg PRN Q2HR PRN IM PAIN Last administered on 09/29/19at 07:52; Start 09/26/19 at 20:45 Haloperidol Lactate (Haldol Inj) 5 mg PRN Q8HRS PRN IM AGITATION Last administered on 09/29/19at 07:51; Start 09/26/19 at 22:45 Sodium Chloride 1,000 ml @ 1,000 mls/hr Q1H PRN IV hypotension; Start 09/27/19 at 09:28; Stop 09/27/19 at 15:27; Status DC Albumin Human 200 ml @ 200 mls/hr 1X PRN PRN IV Hypotension; Start 09/27/19 at 09:30; Stop 09/27/19 at 15:29; Status DC Diphenhydramine HCl (Benadryl) 25 mg 1X PRN PRN IV ITCHING; Start 09/27/19 at 09:30; Stop 09/28/19 at 09:29; Status DC Diphenhydramine HCl (Benadryl) 25 mg 1X PRN PRN IV ITCHING; Start 09/27/19 at 09:30; Stop 09/28/19 at 09:29; Status DC Sodium Chloride 1,000 ml @ 400 mls/hr Q2H30M PRN IV PATENCY; Start 09/27/19 at 09:28; Stop 09/27/19 at 21:27; Status DC Info (PHARMACY MONITORING -- do not chart) 1 each PRN DAILY PRN MC SEE COMMENTS; Start 09/27/19 at 09:30 Sodium Chloride 1,000 ml @ 125 mls/hr 1X ONCE IV ; Start 09/29/19 at 07:45; Stop 09/29/19 at 07:46; Status DC Ondansetron HCl (Zofran) 4 mg PRN Q8HRS PRN IVP NAUSEA/VOMITING; Start 09/29/19 at 07:45; Stop 09/29/19 at 07:46; Status DC Morphine Sulfate (Morphine Sulfate) 4 mg PRN Q2HR PRN IV PAIN; Start 09/29/19 at 07:45; Stop 09/29/19 at 07:46; Status DC Active Scripts Active Percocet 10-325 Mg Tablet (Oxycodone/Acetaminophen) 1 Each Tablet 1 Tab PO PRN Q4HRS PRN Guaifenesin Dm Syrup (Guaifenesin/Dextromethorphan) 5 Ml Syrup 10 Ml PO PRN Q6HRS PRN 10 Days Carvedilol (Carvedilol) 6.25 Mg Tablet 12.5 Mg PO BIDWMEALS Hydralazine Hcl 25 Mg Tablet 25 Mg PO TID Humalog (Insulin Lispro) 100 Unit/1 Ml Insuln.pen 0 Units SQ TIDWMEALS 28 Days Culturelle (Lactobacillus Rhamnosus Gg) 1 Each Cap.sprink 1 Cap PO BID 30 Days Ondansetron Odt (Ondansetron) 4 Mg Tab.rapdis 4 Mg PO PRN Q6HRS PRN 28 Days Clopidogrel (Clopidogrel Bisulfate) 75 Mg Tablet 75 Mg PO DAILYWBKFT 30 Days Pinky-Shreya Tablet (Folic Acid/Vitamin B Comp W-C) 0.8 Mg Tablet 1 Tab PO DAILY Tylenol (Acetaminophen) 325 Mg Capsule 650 Mg PO Q6-8HRS PRN Zantac (Ranitidine Hcl) 300 Mg Tablet 1 Tab PO QHS Compazine (Prochlorperazine Maleate) 5 Mg Tablet 5 Mg PO PRN TID PRN 10 Days [Pantoprazole] 40 MG Tablet. 40 Mg PO DAILYAC 30 Days Reported Bupropion Xl (Bupropion Hcl) 300 Mg Tab.er.24h 1 Tab PO DAILYWBKFT Zoloft (Sertraline Hcl) 50 Mg Tablet 50 Mg PO DAILY Lisinopril 20 Mg Tablet 20 Mg PO DAILY Shante Knowles 6,000 Units Capsule (Lipase/Protease/Amylase) 1 Each Capsule.dr 1 Tab PO TID Proair Hfa (Albuterol Sulfate) 8.5 Gm Hfa.aer.ad 2 Puff INH BID PRN Levothyroxine Sodium 50 Mcg Tablet 1 Tab PO DAILY Clonidine Tts-2 (Clonidine) 1 Each Patch.tdwk 1 Patch TD WEEKLY Amlodipine Besylate 5 Mg Tablet 10 Mg PO DAILY Atorvastatin Calcium 40 Mg Tablet 40 Mg PO HS Latanoprost 2.5 Ml Drops 1 Drop EACHEYE HS Vitals/I & O Vital Sign - Last 24 Hours 7/4/20 09/28/19 09/28/19 09/28/19 14:11 15:00 17:11 18:10 Temp 98.3 98.3 Pulse 61 60 60 Resp 16 B/P (MAP) 119/53 119/53 (75) 119/53 Pulse Ox 96 O2 Delivery Room Air Room Air 09/28/19 09/28/19 09/28/19 09/28/19 19:00 20:00 20:14 22:49 Temp 98.2 98.2 98.2 98.2 Pulse 60 60 61 Resp 21 20 B/P (MAP) 134/72 (92) 119/53 127/58 (81) Pulse Ox 94 96 O2 Delivery Room Air Nasal Cannula Room Air O2 Flow Rate 2.0 09/28/19 09/28/19 09/29/19 09/29/19 23:03 23:50 00:03 00:20 Resp 20 20 20 20 Pulse Ox 96 96 96 96 O2 Delivery Room Air Nasal Cannula Nasal Cannula Nasal Cannula O2 Flow Rate 2.0 2.0 2.0 2.0 09/29/19 09/29/19 09/29/19 09/29/19 03:01 05:53 06:53 07:00 Temp 98.5 98.2 98.5 98.2 Pulse 70 67 Resp 21 20 18 20 B/P (MAP) 97/59 (72) 96/60 (72) Pulse Ox 94 94 94 96 O2 Delivery Room Air Room Air Nasal Cannula Room Air O2 Flow Rate 2.0 09/29/19 09/29/19 09/29/19 07:52 08:00 08:22 O2 Delivery Room Air Nasal Cannula Room Air Intake and Output0 09/28/19 09/28/19 09/29/19 15:00 23:00 07:00 Intake Total 160 ml Output Total 2 ml Balance -2 ml 160 ml Justicifation of Admission Dx: Justifications for Admission: Justification of Admission Dx: Yes HARDEEP MUÑOZ MD Sep 29, 2019 11:07
--- NOTE | 2019-09-29 11:08 | PDOC ---
PROGRESS NOTES Chief Complaint Chief Complaint will try to DC again today Postop day 2 finger amputation Acute encephalopathy secondary to metabolic etiology with hypoglycemia Right middle finger pain - dry gangrene , no sign of active infection. Hyperkalemia - K 7.4 ESRD - MWF [facility] patient. Fistula functioning again now. She is very intermittently compliant. Acute on chronic diastolic CHF - with elevated BNP and CXR findings concerning Accelerated HTN: labile Anasarca Noncompliance: missed dialysis, no transport. Suspect missed meds as well. Hx of severe LE PAD - S/P bilateral BKA. more recent to left leg, incision intact Debility HX NONCOMPLIANCE Anxiety Chronic back pain Chronic anemia Elevated liver function tests Depression sec to med illness History of diabetes mellitus type 2 History of hypothyroidism Chronic pain syndrome History of bilateral BKA History of Present Illness History of Present Illness 09/28, will try to DC, coordinate care, some pain, her standard odd behavior 09/25/2019 Patient seen and examined She is currently on dialysis Surgery is scheduled for this afternoon I believe Discussed with RN Chart reviewed 09/24/2019 Patient seen and examined She complains of finger pain Discussed with nurse Chart reviewed We are having a difficult time getting IV access Vitals Vitals Vital Signs Date Time Temp Pulse Resp B/P (MAP) Pulse Ox O2 Delivery O2 Flow Rate FiO2 09/29/19 08:22 Room Air 09/29/19 07:00 98.2 67 20 96/60 (72) 96 98.2 09/29/19 06:53 2.0 Physical Exam Physical Exam GENERAL: Propped up in bed, alert, coop HEENT: Oral cavity pink. No lesions seen NECK: Supple. LUNGS: Decreased breath sounds at the bases, nonlabored. HEART: S1, S2. regular ABDOMEN: Obese, soft, nontender, bowel sounds present. GENITOURINARY: No Calvillo. EXTREMITIES: Bilateral BKA stump healthy, Right 2nd amputation well- approx/sutures, clean SKIN: No signs of rash. warm to touch. NEUROLOGIC: Alert, answering questions appropriately [facility] Non-tunneled triple-lumen CVC (09/23) out Left-sided tunnelled HDC (09/25) without signs of complications Heart: Regular rate, Normal S1, Normal S2 Lungs: Clear Abdomen: Soft, No tenderness Extremities: Other (Right hand with clean dry intact dressing) Skin: Other (Right upper extremity finger amputation site is clean, dry, and intact.) Labs LABS Laboratory Tests Test 09/28/19 16:55 09/28/19 20:03 09/29/19 07:41 09/29/19 08:25 Glucose (Fingerstick) 127 mg/dL (70-99) 100 mg/dL (70-99) 46 mg/dL (70-99) 68 mg/dL (70-99) Assessment and Plan Assessmemt and Plan Problems Medical Problems: (1) Osteomyelitis Status: Acute (2) Osteomyelitis of finger Status: Acute Comment Review of Relevant I have reviewed the following items pamela (where applicable) has been applied. Labs Laboratory Tests Test 09/27/19 12:38 09/27/19 16:54 09/28/19 07:49 09/28/19 08:43 Glucose (Fingerstick) 79 mg/dL (70-99) 142 mg/dL (70-99) 52 mg/dL (70-99) 77 mg/dL (70-99) Test 09/28/19 11:06 09/28/19 16:55 09/28/19 20:03 09/29/19 07:41 Glucose (Fingerstick) 119 mg/dL (70-99) 127 mg/dL (70-99) 100 mg/dL (70-99) 46 mg/dL (70-99) Test 09/29/19 08:25 Glucose (Fingerstick) 68 mg/dL (70-99) Laboratory Tests Test 09/28/19 16:55 09/28/19 20:03 09/29/19 07:41 09/29/19 08:25 Glucose (Fingerstick) 127 mg/dL (70-99) 100 mg/dL (70-99) 46 mg/dL (70-99) 68 mg/dL (70-99) Microbiology 09/25/19 Gram Stain - Final, Resulted 09/25/19 Aerobic and Anaerobic Culture - Preliminary, Resulted Medications Current Medications Morphine Sulfate (Morphine Sulfate) 2 mg PRN Q2HR PRN IV PAIN Last administered on 09/23/19at 00:02; Start 09/22/19 at 21:45; Stop 09/23/19 at 21:44; Status DC Vancomycin HCl 1.25 gm/Sodium Chloride 250 ml @ 166.667 mls/hr 1X ONCE IV Last administered on 09/23/19at 00:02; Start 09/22/19 at 23:15; Stop 09/23/19 at 00:44; Status DC Ondansetron HCl (Zofran) 4 mg 1X ONCE IVP Last administered on 09/23/19at 00:57; Start 09/23/19 at 00:15; Stop 09/23/19 at 00:16; Status DC Calcium Gluconate (Calcium Gluconate) 1,000 mg 1X ONCE IVP Last administered on 09/23/19at 01:00; Start 09/23/19 at 00:30; Stop 09/23/19 at 00:31; Status DC Dextrose (Dextrose 50%-Water Syringe) 25 gm 1X ONCE IV Last administered on 09/23/19at 00:59; Start 09/23/19 at 00:30; Stop 09/23/19 at 00:31; Status DC Insulin Human Regular (HumuLIN R VIAL) 10 unit 1X ONCE IV Last administered on 09/23/19at 00:59; Start 09/23/19 at 00:30; Stop 09/23/19 at 00:31; Status DC Sodium Polystyrene Sulfonate (Kayexalate) 30 gm 1X ONCE PO ; Start 09/23/19 at 00:30; Stop 09/23/19 at 00:31; Status DC Sodium Chloride 1,000 ml @ 1,000 mls/hr Q1H PRN IV hypotension; Start 09/23/19 at 09:38; Stop 09/23/19 at 15:37; Status DC Sodium Chloride 1,000 ml @ 400 mls/hr Q2H30M PRN IV PATENCY; Start 09/23/19 at 09:38; Stop 09/23/19 at 21:38; Status DC Info (PHARMACY MONITORING -- do not chart) 1 each PRN DAILY PRN MC SEE COMMENTS; Start 09/23/19 at 09:45; Status UNV Info (PHARMACY MONITORING -- do not chart) 1 each PRN DAILY PRN MC SEE COMMENTS; Start 09/23/19 at 09:45; Status Cancel Albuterol Sulfate (Ventolin Neb Soln) 2.5 mg PRN BID PRN INH SHORTNESS OF BREATH; Start 09/23/19 at 12:45 Amlodipine Besylate (Norvasc) 10 mg DAILY PO Last administered on 09/28/19at 07:50; Start 09/23/19 at 13:00 Atorvastatin Calcium (Lipitor) 40 mg HS PO Last administered on 09/28/19 20:15; Start 09/23/19 at 21:00 Carvedilol (Coreg) 12.5 mg BIDWMEALS PO Last administered on 09/28/19 17:11; Start 09/23/19 at 17:00 Clonidine HCl (Catapres Tts-2) 1 patch WEEKLY TD Last administered on 09/23/19 21:00; Start 09/23/19 at 13:00 Clopidogrel Bisulfate (Plavix) 75 mg DAILYWBKFT PO Last administered on 09/29/19 07:58; Start 09/23/19 at 13:00 Vitamin B Complex/ Vitamin C (Pinky-Shreya) 1 tab DAILY PO Last administered on 09/29/19 07:58; Start 09/23/19 at 13:00 Guaifenesin (Robitussin Dm) 10 ml PRN Q6HRS PRN PO COUGH; Start 09/23/19 at 12:45 Hydralazine HCl (Apresoline) 25 mg TID PO Last administered on 09/28/19 20:14; Start 09/23/19 at 14:00 Acetaminophen/ Hydrocodone Bitart (Lortab 5/325) 1 tab PRN Q6HRS PRN PO MODERTE PAIN Last administered on 09/24/19 08:32; Start 09/23/19 at 12:45; Stop 09/24/19 at 10:14; Status DC Lactobacillus Rhamnosus (Culturelle) 1 cap BID PO Last administered on 09/29/19 07:58; Start 09/23/19 at 21:00 Latanoprost (Xalatan) 1 drop HS OU Last administered on 09/28/19 20:16; Start 09/23/19 at 21:00 Levothyroxine Sodium (Synthroid) 50 mcg DAILY06 PO Last administered on 09/29/19 05:52; Start 09/24/19 at 06:00 Lisinopril (Prinivil) 20 mg DAILY PO Last administered on 09/28/19 07:49; Start 09/23/19 at 13:00 Ondansetron HCl (Zofran Odt) 4 mg PRN Q6HRS PRN PO NAUSEA/VOMITING 1ST CHOICE; Start 09/23/19 at 12:45 Prochlorperazine Maleate (Compazine) 5 mg PRN TID PRN PO NAUSEA (2nd Choice); Start 09/23/19 at 12:45 Sertraline HCl (Zoloft) 50 mg DAILY PO Last administered on 09/29/19at 07:58; Start 09/23/19 at 13:00 Bupropion HCl (Wellbutrin Xl) 300 mg DAILYWBKFT PO Last administered on 09/29/19at 07:58; Start 09/24/19 at 08:00 Amylase/Lipase/ Protease (Zenpep 5,000) 1 cap TIDWMEALS PO Last administered on 09/29/19at 07:58; Start 09/23/19 at 17:00 Famotidine (Pepcid) 40 mg QODAY PO Last administered on 09/28/19at 07:41; Start 09/24/19 at 09:00 Pantoprazole Sodium (Protonix) 40 mg DAILYAC PO Last administered on 09/29/19at 05:52; Start 09/23/19 at 16:30 Glucagon (Glucagen) 1 mg 1X ONCE IM Last administered on 09/23/19at 17:06; Start 09/23/19 at 17:00; Stop 09/23/19 at 17:01; Status DC Dextrose (Dextrose 50%-Water Syringe) 12.5 gm PRN Q15MIN PRN IV SEE COMMENTS Last administered on 09/24/19at 15:22; Start 09/23/19 at 17:45 Glucagon (Glucagen) 1 mg 1X ONCE IM Last administered on 09/23/19at 17:42; Start 09/23/19 at 17:45; Stop 09/23/19 at 17:46; Status DC Glucagon (Glucagen) 1 mg 1X ONCE IM Last administered on 09/24/19at 06:37; Start 09/24/19 at 06:30; Stop 09/24/19 at 06:31; Status DC Glucagon (Glucagen) 1 mg PRN Q15MIN PRN IM LOW BLOOD SUGAR Last administered on 09/24/19at 11:25; Start 09/24/19 at 06:45 Glucose (Insta-Glucose) 15 gm PRN Q15MIN PRN PO LOW BLOOD SUGAR; Start 09/24/19 at 06:45 Vancomycin HCl (Vanco Per Pharmacy) 1 each PRN DAILY PRN MC SEE COMMENTS Last administered on 09/27/19at 12:54; Start 09/24/19 at 09:00; Stop 09/27/19 at 15:40; Status DC Piperacillin Sod/ Tazobactam Sod (Zosyn Per Pharmacy) 1 each PRN DAILY PRN MC SEE COMMENTS; Start 09/24/19 at 09:00 Piperacillin Sod/ Tazobactam Sod 2.25 gm/Sodium Chloride 50 ml @ 100 mls/hr Q8HRS IV Last administered on 09/26/19at 19:32; Start 09/24/19 at 10:00; Stop 09/27/19 at 15:40; Status DC Ondansetron HCl (Zofran) 4 mg PRN Q6HRS PRN IV NAUSEA/VOMITING; Start 09/25/19 at 07:00; Stop 09/26/19 at 06:59; Status DC Fentanyl Citrate (Fentanyl 2ml Vial) 25 mcg PRN Q5MIN PRN IV MILD PAIN 1-3; Start 09/25/19 at 07:00; Stop 09/26/19 at 06:59; Status DC Fentanyl Citrate (Fentanyl 2ml Vial) 50 mcg PRN Q5MIN PRN IV MODERATE TO SEVERE PAIN Last administered on 09/24/19at 18:05; Start 09/25/19 at 07:00; Stop 09/26/19 at 06:59; Status DC Morphine Sulfate (Morphine Sulfate) 1 mg PRN Q10MIN PRN IV SEVERE PAIN 7-10; Start 09/25/19 at 07:00; Stop 09/26/19 at 06:59; Status DC Ringer's Solution 1,000 ml @ 30 mls/hr Q24H IV ; Start 09/25/19 at 07:00; Stop 09/25/19 at 18:59; Status DC Lidocaine HCl (Xylocaine-Mpf 1% 2ml Vial) 2 ml PRN 1X PRN ID PRIOR TO IV START; Start 09/25/19 at 07:00; Stop 09/26/19 at 06:59; Status DC Hydromorphone HCl (Dilaudid) 0.5 mg PRN Q10MIN PRN IV SEV PAIN, Second choice; Start 09/25/19 at 07:00; Stop 09/26/19 at 06:59; Status DC Prochlorperazine Edisylate (Compazine) 5 mg PACU PRN PRN IV NAUSEA, MRX1; Start 09/25/19 at 07:00; Stop 09/26/19 at 06:59; Status DC Oxycodone/ Acetaminophen (Percocet 10/325) 1 tab PRN Q4HRS PRN PO PAIN Last administered on 09/29/19at 05:53; Start 09/24/19 at 10:15 Ondansetron HCl (Zofran) 4 mg PRN Q6HRS PRN IV NAUSEA/VOMITING; Start 09/25/19 at 07:00; Stop 09/26/19 at 06:59; Status DC Fentanyl Citrate (Fentanyl 2ml Vial) 25 mcg PRN Q5MIN PRN IV MILD PAIN 1-3; Start 09/25/19 at 07:00; Stop 09/26/19 at 06:59; Status DC Fentanyl Citrate (Fentanyl 2ml Vial) 50 mcg PRN Q5MIN PRN IV MODERATE TO SEVERE PAIN; Start 09/25/19 at 07:00; Stop 09/26/19 at 06:59; Status DC Morphine Sulfate (Morphine Sulfate) 1 mg PRN Q10MIN PRN IV SEVERE PAIN 7-10; Start 09/25/19 at 07:00; Stop 09/26/19 at 06:59; Status DC Ringer's Solution 1,000 ml @ 30 mls/hr Q24H IV ; Start 09/25/19 at 07:00; Stop 09/25/19 at 18:59; Status DC Lidocaine HCl (Xylocaine-Mpf 1% 2ml Vial) 2 ml PRN 1X PRN ID PRIOR TO IV START; Start 09/25/19 at 07:00; Stop 09/26/19 at 06:59; Status UNV Hydromorphone HCl (Dilaudid) 0.5 mg PRN Q10MIN PRN IV SEV PAIN, Second choice; Start 09/25/19 at 07:00; Stop 09/26/19 at 06:59; Status UNV Prochlorperazine Edisylate (Compazine) 5 mg PACU PRN PRN IV NAUSEA, MRX1; Start 09/25/19 at 07:00; Stop 09/26/19 at 06:59; Status UNV Ondansetron HCl (Zofran) 4 mg PRN Q6HRS PRN IV NAUSEA/VOMITING; Start 09/24/19 at 11:00; Stop 09/25/19 at 10:59; Status UNV Fentanyl Citrate (Fentanyl 2ml Vial) 25 mcg PRN Q5MIN PRN IV MILD PAIN 1-3; Start 09/24/19 at 11:00; Stop 09/25/19 at 10:59; Status UNV Fentanyl Citrate (Fentanyl 2ml Vial) 50 mcg PRN Q5MIN PRN IV MODERATE TO SEVERE PAIN; Start 09/24/19 at 11:00; Stop 09/25/19 at 10:59; Status UNV Morphine Sulfate (Morphine Sulfate) 1 mg PRN Q10MIN PRN IV SEVERE PAIN 7-10; Start 09/24/19 at 11:00; Stop 09/25/19 at 10:59; Status UNV Ringer's Solution 1,000 ml @ 30 mls/hr Q24H IV ; Start 09/24/19 at 10:54; Stop 09/24/19 at 22:53; Status DC Lidocaine HCl (Xylocaine-Mpf 1% 2ml Vial) 2 ml PRN 1X PRN ID PRIOR TO IV START; Start 09/24/19 at 11:00; Stop 09/25/19 at 10:59; Status UNV Hydromorphone HCl (Dilaudid) 0.5 mg PRN Q10MIN PRN IV SEV PAIN, Second choice; Start 09/24/19 at 11:00; Stop 09/25/19 at 10:59; Status UNV Prochlorperazine Edisylate (Compazine) 5 mg PACU PRN PRN IV NAUSEA, MRX1; Start 09/24/19 at 11:00; Stop 09/25/19 at 10:59; Status UNV Dextrose 1,000 ml @ 50 mls/hr Q20H IV Last administered on 09/25/19at 22:52; Start 09/24/19 at 11:45 Vancomycin HCl (Vancomycin Random Level) 1 each 1X ONCE MC Last administered on 09/25/19at 06:00; Start 09/25/19 at 06:00; Stop 09/25/19 at 06:01; Status DC Lidocaine HCl (Buffered Lidocaine 1%) 3 ml STK-MED ONCE .ROUTE ; Start 09/24/19 at 13:50; Stop 09/24/19 at 13:51; Status DC Iodixanol (Visipaque 320) 100 ml STK-MED ONCE .ROUTE ; Start 09/24/19 at 13:50; Stop 09/24/19 at 13:51; Status DC Heparin Sodium/ Sodium Chloride 1,000 ml @ As Directed STK-MED ONCE .ROUTE ; Start 09/24/19 at 13:51; Stop 09/24/19 at 13:51; Status DC Propofol (Diprivan) 200 mg STK-MED ONCE IV ; Start 09/24/19 at 15:15; Stop 09/24/19 at 15:16; Status DC Lidocaine HCl (Lidocaine Pf 2% Vial) 5 ml STK-MED ONCE .ROUTE ; Start 09/24/19 at 15:15; Stop 09/24/19 at 15:16; Status DC Dextrose (Dextrose 50%-Water Syringe) 25 gm STK-MED ONCE IV ; Start 09/24/19 at 15:19; Stop 09/24/19 at 15:19; Status DC Heparin Sodium/ Sodium Chloride (HEPARIN for ARTERIAL LINE FLUSH) 1,000 unit 1X ONCE IART Last administered on 09/24/19at 17:06; Start 09/24/19 at 16:15; Stop 09/24/19 at 16:16; Status DC Heparin Sodium/ Sodium Chloride (HEPARIN for ARTERIAL LINE FLUSH) 1,000 unit 1X ONCE IART Last administered on 09/24/19at 17:07; Start 09/24/19 at 16:15; Stop 09/24/19 at 16:16; Status DC Lidocaine HCl (Buffered Lidocaine 1%) 3 ml 1X ONCE IJ Last administered on 09/24/19at 16:15; Start 09/24/19 at 16:15; Stop 09/24/19 at 16:16; Status DC Iodixanol (Visipaque 320) 100 ml 1X ONCE IART Last administered on 09/24/19at 17:05; Start 09/24/19 at 16:15; Stop 09/24/19 at 16:16; Status DC Heparin Sodium (Porcine) (Heparin Sodium) 10,000 unit STK-MED ONCE .ROUTE ; Start 09/24/19 at 16:21; Stop 09/24/19 at 16:21; Status DC Heparin Sodium/ Sodium Chloride 500 ml @ As Directed STK-MED ONCE .ROUTE ; Start 09/24/19 at 16:21; Stop 09/24/19 at 16:22; Status DC Nitroglycerin (Nitroglycerin) 200 mcg 1X ONCE IART Last administered on 09/24/19at 17:08; Start 09/24/19 at 16:45; Stop 09/24/19 at 16:46; Status DC Heparin Sodium/ Sodium Chloride 500 ml @ As Directed STK-MED ONCE .ROUTE ; Start 09/24/19 at 16:49; Stop 09/24/19 at 16:49; Status DC Fentanyl Citrate (Fentanyl 2ml Vial) 100 mcg STK-MED ONCE .ROUTE ; Start 09/24/19 at 17:41; Stop 09/24/19 at 17:41; Status DC Ondansetron HCl (Zofran) 4 mg PRN Q6HRS PRN IV NAUSEA/VOMITING; Start 09/24/19 at 18:00; Stop 09/25/19 at 17:59; Status DC Fentanyl Citrate (Fentanyl 2ml Vial) 25 mcg PRN Q5MIN PRN IV MILD PAIN 1-3; Start 09/24/19 at 18:00; Stop 09/25/19 at 17:59; Status DC Fentanyl Citrate (Fentanyl 2ml Vial) 50 mcg PRN Q5MIN PRN IV MODERATE TO SEVERE PAIN; Start 09/24/19 at 18:00; Stop 09/25/19 at 17:59; Status DC Morphine Sulfate (Morphine Sulfate) 1 mg PRN Q10MIN PRN IV SEVERE PAIN 7-10; Start 09/24/19 at 18:00; Stop 09/25/19 at 17:59; Status DC Ringer's Solution 1,000 ml @ 30 mls/hr Q24H IV ; Start 09/24/19 at 17:51; Stop 09/25/19 at 05:50; Status DC Lidocaine HCl (Xylocaine-Mpf 1% 2ml Vial) 2 ml PRN 1X PRN ID PRIOR TO IV START; Start 09/24/19 at 18:00; Stop 09/25/19 at 17:59; Status DC Hydromorphone HCl (Dilaudid) 0.5 mg PRN Q10MIN PRN IV SEV PAIN, Second choice; Start 09/24/19 at 18:00; Stop 09/25/19 at 17:59; Status DC Prochlorperazine Edisylate (Compazine) 5 mg PACU PRN PRN IV NAUSEA, MRX1; Start 09/24/19 at 18:00; Stop 09/25/19 at 17:59; Status DC Morphine Sulfate (Morphine Sulfate) 2 mg PRN Q2HR PRN IV PAIN Last administered on 09/26/19at 07:34; Start 09/24/19 at 18:45 Sodium Chloride 1,000 ml @ 1,000 mls/hr Q1H PRN IV hypotension Last administered on 09/25/19at 13:21; Start 09/25/19 at 07:42; Stop 09/25/19 at 13:41; Status DC Albumin Human 200 ml @ 200 mls/hr 1X PRN PRN IV Hypotension; Start 09/25/19 at 07:45; Stop 09/25/19 at 13:44; Status DC Sodium Chloride 1,000 ml @ 400 mls/hr Q2H30M PRN IV PATENCY; Start 09/25/19 at 07:42; Stop 09/25/19 at 19:41; Status DC Info (PHARMACY MONITORING -- do not chart) 1 each PRN DAILY PRN MC SEE COMMENTS; Start 09/25/19 at 07:45 Info (PHARMACY MONITORING -- do not chart) 1 each PRN DAILY PRN MC SEE COMMENTS; Start 09/25/19 at 07:45; Status UNV Cefazolin Sodium 1 gm/Sodium Chloride 500 ml @ 500 mls/hr 1X ONCE IRR Last administered on 09/25/19at 15:07; Start 09/25/19 at 09:00; Stop 09/25/19 at 09:59; Status DC Heparin Sodium (Porcine) (Heparin Sodium) 2,000 unit 1X ONCE INT CAT ; Start 09/25/19 at 09:30; Stop 09/25/19 at 09:31; Status DC Vancomycin HCl 500 mg/Sodium Chloride 100 ml @ 100 mls/hr QMWF IV Last administered on 09/25/19at 15:39; Start 09/25/19 at 16:00; Stop 09/27/19 at 15:40; Status DC Heparin Sodium (Porcine) (Heparin Sodium) 10,000 unit STK-MED ONCE .ROUTE ; Start 09/25/19 at 09:24; Stop 09/25/19 at 14:20; Status DC Ringer's Solution 1,000 ml @ 30 mls/hr Q24H IV ; Start 09/26/19 at 07:00; Stop 09/26/19 at 18:59; Status Cancel Lidocaine HCl (Lidocaine 1% 20ml Vial) 20 ml STK-MED ONCE .ROUTE ; Start 09/25/19 at 15:05; Stop 09/25/19 at 15:05; Status DC Lidocaine HCl (Lidocaine 1% 20ml Vial) 20 ml STK-MED ONCE INJ Last administered on 09/25/19at 14:05; Start 09/25/19 at 14:05; Stop 09/25/19 at 15:06; Status DC Sodium Polystyrene Sulfonate (Kayexalate) 15 gm 1X ONCE PO Last administered on 09/26/19at 06:10; Start 09/26/19 at 06:00; Stop 09/26/19 at 06:01; Status DC Fentanyl Citrate (Fentanyl 2ml Vial) 50 mcg PRN Q5MIN PRN IVP MODERATE TO SEVERE PAIN; Start 09/26/19 at 06:45; Stop 09/26/19 at 15:00; Status DC Morphine Sulfate (Morphine Sulfate) 1 mg PRN Q10MIN PRN IVP SEVERE PAIN 7-10; Start 09/26/19 at 06:45; Stop 09/26/19 at 15:00; Status DC Ringer's Solution 1,000 ml @ 30 mls/hr Q24H IV ; Start 09/26/19 at 07:00; Stop 09/27/19 at 06:59; Status DC Hydromorphone HCl (Dilaudid) 0.5 mg PRN Q10MIN PRN IVP SEV PAIN, Second choice; Start 09/26/19 at 06:45; Stop 09/27/19 at 06:44; Status DC Prochlorperazine Edisylate (Compazine) 5 mg PACU PRN PRN IVP NAUSEA, MRX1; Start 09/26/19 at 06:45; Stop 09/26/19 at 15:00; Status DC Sodium Chloride 1,000 ml @ 1,000 mls/hr Q1H PRN IV hypotension; Start 09/26/19 at 08:56; Stop 09/26/19 at 14:55; Status DC Albumin Human 200 ml @ 200 mls/hr 1X PRN PRN IV Hypotension; Start 09/26/19 at 09:00; Stop 09/26/19 at 14:59; Status DC Sodium Chloride 1,000 ml @ 400 mls/hr Q2H30M PRN IV PATENCY; Start 09/26/19 at 08:56; Stop 09/26/19 at 20:55; Status DC Info (PHARMACY MONITORING -- do not chart) 1 each PRN DAILY PRN MC SEE COMMENTS; Start 09/26/19 at 09:00; Status UNV Info (PHARMACY MONITORING -- do not chart) 1 each PRN DAILY PRN MC SEE COMMENT S; Start 09/26/19 at 09:00; Status Cancel Propofol (Diprivan) 200 mg STK-MED ONCE IV ; Start 09/26/19 at 12:10; Stop 09/26/19 at 12:11; Status DC Lidocaine HCl (Lidocaine Pf 2% Vial) 5 ml STK-MED ONCE .ROUTE ; Start 09/26/19 at 12:10; Stop 09/26/19 at 12:11; Status DC Propofol (Diprivan) 200 mg STK-MED ONCE IV ; Start 09/26/19 at 12:10; Stop 09/26/19 at 12:11; Status DC Lidocaine/ Epinephrine (LIDOCAINE 1%-EPI 1:100,000 Multi-Dose) 20 ml STK-MED ONCE .ROUTE ; Start 09/26/19 at 12:55; Stop 09/26/19 at 12:56; Status DC Lidocaine/ Epinephrine (LIDOCAINE 1%-EPI 1:100,000 Multi-Dose) 20 ml 1X ONCE INJ Last administered on 09/26/19at 14:00; Start 09/26/19 at 14:00; Stop 09/26/19 at 14:01; Status DC Morphine Sulfate (Morphine Sulfate) 2 mg PRN Q2HR PRN IM PAIN Last administered on 09/29/19at 07:52; Start 09/26/19 at 20:45 Haloperidol Lactate (Haldol Inj) 5 mg PRN Q8HRS PRN IM AGITATION Last admin istered on 09/29/19at 07:51; Start 09/26/19 at 22:45 Sodium Chloride 1,000 ml @ 1,000 mls/hr Q1H PRN IV hypotension; Start 09/27/19 at 09:28; Stop 09/27/19 at 15:27; Status DC Albumin Human 200 ml @ 200 mls/hr 1X PRN PRN IV Hypotension; Start 09/27/19 at 09:30; Stop 09/27/19 at 15:29; Status DC Diphenhydramine HCl (Benadryl) 25 mg 1X PRN PRN IV ITCHING; Start 09/27/19 at 09:30; Stop 09/28/19 at 09:29; Status DC Diphenhydramine HCl (Benadryl) 25 mg 1X PRN PRN IV ITCHING; Start 09/27/19 at 09:30; Stop 09/28/19 at 09:29; Status DC Sodium Chloride 1,000 ml @ 400 mls/hr Q2H30M PRN IV PATENCY; Start 09/27/19 at 09:28; Stop 09/27/19 at 21:27; Status DC Info (PHARMACY MONITORING -- do not chart) 1 each PRN DAILY PRN MC SEE COMMENTS; Start 09/27/19 at 09:30 Sodium Chloride 1,000 ml @ 125 mls/hr 1X ONCE IV ; Start 09/29/19 at 07:45; Stop 09/29/19 at 07:46; Status DC Ondansetron HCl (Zofran) 4 mg PRN Q8HRS PRN IVP NAUSEA/VOMITING; Start 09/29/19 at 07:45; Stop 09/29/19 at 07:46; Status DC Morphine Sulfate (Morphine Sulfate) 4 mg PRN Q2HR PRN IV PAIN; Start 09/29/19 at 07:45; Stop 09/29/19 at 07:46; Status DC Active Scripts Active Percocet 10-325 Mg Tablet (Oxycodone/Acetaminophen) 1 Each Tablet 1 Tab PO PRN Q4HRS PRN Guaifenesin Dm Syrup (Guaifenesin/Dextromethorphan) 5 Ml Syrup 10 Ml PO PRN Q6HRS PRN 10 Days Carvedilol (Carvedilol) 6.25 Mg Tablet 12.5 Mg PO BIDWMEALS Hydralazine Hcl 25 Mg Tablet 25 Mg PO TID Humalog (Insulin Lispro) 100 Unit/1 Ml Insuln.pen 0 Units SQ TIDWMEALS 28 Days Culturelle (Lactobacillus Rhamnosus Gg) 1 Each Cap.sprink 1 Cap PO BID 30 Days Ondansetron Odt (Ondansetron) 4 Mg Tab.rapdis 4 Mg PO PRN Q6HRS PRN 28 Days Clopidogrel (Clopidogrel Bisulfate) 75 Mg Tablet 75 Mg PO DAILYWBKFT 30 Days Pinky-Shreya Tablet (Folic Acid/Vitamin B Comp W-C) 0.8 Mg Tablet 1 Tab PO DAILY Tylenol (Acetaminophen) 325 Mg Capsule 650 Mg PO Q6-8HRS PRN Zantac (Ranitidine Hcl) 300 Mg Tablet 1 Tab PO QHS Compazine (Prochlorperazine Maleate) 5 Mg Tablet 5 Mg PO PRN TID PRN 10 Days [Pantoprazole] 40 MG Tablet.dr 40 Mg PO DAILYAC 30 Days Reported Bupropion Xl (Bupropion Hcl) 300 Mg Tab.er.24h 1 Tab PO DAILYWBKFT Zoloft (Sertraline Hcl) 50 Mg Tablet 50 Mg PO DAILY Lisinopril 20 Mg Tablet 20 Mg PO DAILY Creon 6,000 Units Capsule (Lipase/Protease/Amylase) 1 Each Capsule.dr 1 Tab PO TID Proair Hfa (Albuterol Sulfate) 8.5 Gm Hfa.aer.ad 2 Puff INH BID PRN Levothyroxine Sodium 50 Mcg Tablet 1 Tab PO DAILY Clonidine Tts-2 (Clonidine) 1 Each Patch.tdwk 1 Patch TD WEEKLY Amlodipine Besylate 5 Mg Tablet 10 Mg PO DAILY Atorvastatin Calcium 40 Mg Tablet 40 Mg PO HS Latanoprost 2.5 Ml Drops 1 Drop EACHEYE HS Vitals/I & O Vital Sign - Last 24 Hours 09/28/19 09/28/19 09/28/19 09/28/19 14:11 15:00 17:11 18:10 Temp 98.3 98.3 Pulse 61 60 60 Resp 16 B/P (MAP) 119/53 119/53 (75) 119/53 Pulse Ox 96 O2 Delivery Room Air Room Air 09/28/19 09/28/19 09/28/19 09/28/19 19:00 20:00 20:14 22:49 Temp 98.2 98.2 98.2 98.2 Pulse 60 60 61 Resp 21 20 B/P (MAP) 134/72 (92) 119/53 127/58 (81) Pulse Ox 94 96 O2 Delivery Room Air Nasal Cannula Room Air O2 Flow Rate 2.0 09/28/19 09/28/19 09/29/19 09/29/19 23:03 23:50 00:03 00:20 Resp 20 20 20 20 Pulse Ox 96 96 96 96 O2 Delivery Room Air Nasal Cannula Nasal Cannula Nasal Cannula O2 Flow Rate 2.0 2.0 2.0 2.0 09/29/19 09/29/19 09/29/19 09/29/19 03:01 05:53 06:53 07:00 Temp 98.5 98.2 98.5 98.2 Pulse 70 67 Resp 21 20 18 20 B/P (MAP) 97/59 (72) 96/60 (72) Pulse Ox 94 94 94 96 O2 Delivery Room Air Room Air Nasal Cannula Room Air O2 Flow Rate 2.0 09/29/19 09/29/19 09/29/19 07:52 08:00 08:22 O2 Delivery Room Air Nasal Cannula Room Air Intake and Output 09/28/19 09/28/19 09/29/19 15:00 23:00 07:00 Intake Total 160 ml Output Total 2 ml Balance -2 ml 160 ml Justicifation of Admission Dx: Justifications for Admission: Justification of Admission Dx: Yes HARDEEP MUÑOZ MD Sep 29, 2019 11:08
--- NOTE | 2019-09-29 12:39 | PDOC ---
SUBJECTIVE ROS no complaints OBJECTIVE Vital Signs Vital Signs Date Time Temp Pulse Resp B/P (MAP) Pulse Ox O2 Delivery O2 Flow Rate FiO2 09/29/19 11:00 98.4 71 18 139/45 (76) 97 Room Air 98.4 09/29/19 06:53 2.0 I & 0 Intake and Output 09/29/19 07:00 Intake Total 160 ml Output Total 2 ml Balance 158 ml Intake Oral 160 ml Stool Total 2 ml # Voids 1 # Bowel Movements 5 PHYSICAL EXAM Physical Exam General: NAD HEENT: PERRLA, OM moist Neck Supple Lungs: dec BS , Non labored Heart: S1S2, RRR, n Abdomen: Normal bowel sounds, Soft, No tenderness, No Calvillo Extremities: Bila BKA , s/p amputation Rt middle finger , AVF + Skin: No rash Neuro- Grossly Normal DIAGNOSIS/ASSESSMENT Assessment & Plan ESRD - On HD MWF No indication for HD today ACcess- AV access Fistulogram ordered 09/24- cancelled yesterday due to Na of 6 Declot as OP , Tunneled HDC placed 09/25 HyperKalemia- K 7.4 at presentation - Chronic Non compliance with HD and diet 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 follow-up with vascular in 2 weeks for suture removal AVG placed in September 2018 at [facility] - Left upper arm brachial artery to brachial vein arterial to venous graft placement using PTFE graft. 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 Can be dced from renal standpoin Declot of AV access- Discussed with HOURLY MANAGER at the OP Unit DC per Primary COMMENT/RELEVANT DATA Meds Current Medications Medications (Trade) Dose Ordered Sig/Clarence Start Time Stop Time Status Last Admin Dose Admin Acetaminophen/ Hydrocodone Bitart (Lortab 5/325) 1 tab PRN Q6HRS PRN 09/23/19 12:45 09/24/19 10:14 DC 09/24/19 08:32 1 TAB Albumin Human 200 ml @ 200 mls/hr 1X PRN PRN 09/27/19 09:30 09/27/19 15:29 DC Albuterol Sulfate (Ventolin Neb Soln) 2.5 mg PRN BID PRN 09/23/19 12:45 Amlodipine Besylate (Norvasc) 10 mg DAILY 09/23/19 13:00 09/28/19 07:50 10 MG Amylase/Lipase/ Protease (Zenpep 5,000) 1 cap TIDWMEALS 09/23/19 17:00 09/29/19 07:58 1 CAP Atorvastatin Calcium (Lipitor) 40 mg HS 09/23/19 21:00 09/28/19 20:15 40 MG Bupropion HCl (Wellbutrin Xl) 300 mg DAILYWBKFT 09/24/19 08:00 09/29/19 07:58 300 MG Calcium Gluconate (Calcium Gluconate) 1,000 mg 1X ONCE 09/23/19 00:30 09/23/19 00:31 DC 09/23/19 01:00 1,000 MG Carvedilol (Coreg) 12.5 mg BIDWMEALS 09/23/19 17:00 09/28/19 17:11 12.5 MG Cefazolin Sodium 1 gm/Sodium Chloride 500 ml @ 500 mls/hr 1X ONCE 09/25/19 09:00 09/25/19 09:59 DC 09/25/19 15:07 Clonidine HCl (Catapres Tts-2) 1 patch WEEKLY 09/23/19 13:00 09/23/19 21:00 1 PATCH Clopidogrel Bisulfate (Plavix) 75 mg DAILYWBKFT 09/23/19 13:00 09/29/19 07:58 75 MG Dextrose (Dextrose 50%-Water Syringe) 25 gm STK-MED ONCE 09/24/19 15:19 09/24/19 15:19 DC Diphenhydramine HCl (Benadryl) 25 mg 1X PRN PRN 09/27/19 09:30 09/28/19 09:29 DC Famotidine (Pepcid) 40 mg QODAY 09/24/19 09:00 09/28/19 07:41 40 MG Fentanyl Citrate (Fentanyl 2ml Vial) 50 mcg PRN Q5MIN PRN 09/26/19 06:45 09/26/19 15:00 DC Glucagon (Glucagen) 1 mg PRN Q15MIN PRN 09/24/19 06:45 09/24/19 11:25 1 MG Glucose (Insta-Glucose) 15 gm PRN Q15MIN PRN 09/24/19 06:45 Guaifenesin (Robitussin Dm) 10 ml PRN Q6HRS PRN 09/23/19 12:45 Haloperidol Lactate (Haldol Inj) 5 mg PRN Q8HRS PRN 09/26/19 22:45 09/29/19 07:51 5 MG Heparin Sodium (Porcine) (Heparin Sodium) 10,000 unit STK-MED ONCE 09/25/19 09:24 09/25/19 14:20 DC Heparin Sodium/ Sodium Chloride 500 ml @ As Directed STK-MED ONCE 09/24/19 16:49 09/24/19 16:49 DC Heparin Sodium/ Sodium Chloride (HEPARIN for ARTERIAL LINE FLUSH) 1,000 unit 1X ONCE 09/24/19 16:15 09/24/19 16:16 DC 09/24/19 17:07 1,000 UNIT Hydralazine HCl (Apresoline) 25 mg TID 09/23/19 14:00 09/28/19 20:14 25 MG Hydromorphone HCl (Dilaudid) 0.5 mg PRN Q10MIN PRN 09/26/19 06:45 09/27/19 06:44 DC Info (PHARMACY MONITORING -- do not chart) 1 each PRN DAILY PRN 09/27/19 09:30 Insulin Human Regular (HumuLIN R VIAL) 10 unit 1X ONCE 09/23/19 00:30 09/23/19 00:31 DC 09/23/19 00:59 10 UNIT Iodixanol (Visipaque 320) 100 ml 1X ONCE 09/24/19 16:15 09/24/19 16:16 DC 09/24/19 17:05 86 ML Lactobacillus Rhamnosus (Culturelle) 1 cap BID 09/23/19 21:00 09/29/19 07:58 1 CAP Latanoprost (Xalatan) 1 drop HS 09/23/19 21:00 09/28/19 20:16 1 DROP Levothyroxine Sodium (Synthroid) 50 mcg DAILY06 09/24/19 06:00 09/29/19 05:52 50 MCG Lidocaine HCl (Buffered Lidocaine 1%) 3 ml 1X ONCE 09/24/19 16:15 09/24/19 16:16 DC 09/24/19 16:15 5 ML Lidocaine HCl (Lidocaine 1% 20ml Vial) 20 ml STK-MED ONCE 09/25/19 14:05 09/25/19 15:06 DC 09/25/19 14:05 7 ML Lidocaine HCl (Lidocaine Pf 2% Vial) 5 ml STK-MED ONCE 09/26/19 12:10 09/26/19 12:11 DC Lidocaine HCl (Xylocaine-Mpf 1% 2ml Vial) 2 ml PRN 1X PRN 09/24/19 18:00 09/25/19 17:59 DC Lidocaine/ Epinephrine (LIDOCAINE 1%-EPI 1:100,000 Multi-Dose) 20 ml 1X ONCE 09/26/19 14:00 09/26/19 14:01 DC 09/26/19 14:00 8 ML Lisinopril (Prinivil) 20 mg DAILY 09/23/19 13:00 09/28/19 07:49 20 MG Morphine Sulfate (Morphine Sulfate) 4 mg PRN Q2HR PRN 09/29/19 07:45 09/29/19 07:46 DC Nitroglycerin (Nitroglycerin) 200 mcg 1X ONCE 09/24/19 16:45 09/24/19 16:46 DC 09/24/19 17:08 200 MCG Ondansetron HCl (Zofran Odt) 4 mg PRN Q6HRS PRN 09/23/19 12:45 Ondansetron HCl (Zofran) 4 mg PRN Q8HRS PRN 09/29/19 07:45 09/29/19 07:46 DC Oxycodone/ Acetaminophen (Percocet 10/325) 1 tab PRN Q4HRS PRN 09/24/19 10:15 09/29/19 05:53 1 TAB Pantoprazole Sodium (Protonix) 40 mg DAILYAC 09/23/19 16:30 09/29/19 05:52 40 MG Piperacillin Sod/ Tazobactam Sod (Zosyn Per Pharmacy) 1 each PRN DAILY PRN 09/24/19 09:00 Piperacillin Sod/ Tazobactam Sod 2.25 gm/Sodium Chloride 50 ml @ 100 mls/hr Q8HRS 09/24/19 10:00 09/27/19 15:40 DC 09/26/19 19:32 100 MLS/HR Prochlorperazine Edisylate (Compazine) 5 mg PACU PRN PRN 09/26/19 06:45 09/26/19 15:00 DC Prochlorperazine Maleate (Compazine) 5 mg PRN TID PRN 09/23/19 12:45 Propofol (Diprivan) 200 mg STK-MED ONCE 09/26/19 12:10 09/26/19 12:11 DC Ringer's Solution 1,000 ml @ 30 mls/hr Q24H 09/26/19 07:00 09/27/19 06:59 DC Sertraline HCl (Zoloft) 50 mg DAILY 09/23/19 13:00 09/29/19 07:58 50 MG Sodium Polystyrene Sulfonate (Kayexalate) 15 gm 1X ONCE 09/26/19 06:00 09/26/19 06:01 DC 09/26/19 06:10 15 GM Sodium Chloride 1,000 ml @ 125 mls/hr 1X ONCE 09/29/19 07:45 09/29/19 07:46 DC Vancomycin HCl (Vanco Per Pharmacy) 1 each PRN DAILY PRN 09/24/19 09:00 09/27/19 15:40 DC 09/27/19 12:54 1 EACH Vancomycin HCl (Vancomycin Random Level) 1 each 1X ONCE 09/25/19 06:00 09/25/19 06:01 DC 09/25/19 06:00 1 EACH Vancomycin HCl 1.25 gm/Sodium Chloride 250 ml @ 166.667 mls/hr 1X ONCE 09/22/19 23:15 09/23/19 00:44 DC 09/23/19 00:02 166.667 MLS/HR Vancomycin HCl 500 mg/Sodium Chloride 100 ml @ 100 mls/hr QMWF 09/25/19 16:00 09/27/19 15:40 DC 09/25/19 15:39 100 MLS/HR Vitamin B Complex/ Vitamin C (Pinky-Shreya) 1 tab DAILY 09/23/19 13:00 09/29/19 07:58 1 TAB Lab Laboratory Tests Test 09/28/19 16:55 09/28/19 20:03 09/29/19 07:41 09/29/19 08:25 Glucose (Fingerstick) 127 mg/dL (70-99) 100 mg/dL (70-99) 46 mg/dL (70-99) 68 mg/dL (70-99) Test 09/29/19 11:57 Glucose (Fingerstick) 80 mg/dL (70-99) Results All relevant outside records, renal labs, imaging studies, telemetry/EKG's were reviewed. Justicifation of Admission Dx: Justifications for Admission: Justification of Admission Dx: Yes DOMINIQUE TSE MD Sep 29, 2019 12:39
--- NOTE | 2019-09-29 13:17 | NUR ---
Attempted to previous placement 3 times, phone was not picked up. Attempted to call oncall RN, left . Awaiting call back.
[2019-09-29 15:00] VITALS: BP 130/42
--- NOTE | 2019-09-29 18:26 | NUR ---
Patient refused tunnelled catheter dressing change.
[2019-09-29 19:00] VITALS: BP 128/42
[2019-09-29] MEDS: ATORVASTATIN CALCIUM 40 MG TABLET. PO SCH (19:32)
[2019-09-29] MEDS: LATANOPROST 0.005% OPHTH SOLUTION 2.5ML BOTTLE. OU SCH (21:01)
[2019-09-29 22:53] VITALS: BP 142/44
[2019-09-30 03:00] VITALS: BP 151/61
[2019-09-30] MEDS: MORPHINE SULFATE 2 MG/ML VIAL. IM PRN (05:17)
[2019-09-30] MEDS: LEVOTHYROXINE 50 MCG TABLET PO SCH (06:00)
[2019-09-30] MEDS: PANTOPRAZOLE 40 MG TABLET.DR. PO SCH (06:32)
[2019-09-30 07:00] VITALS: BP 179/48
[2019-09-30] MEDS: IV DEXTROSE 10% 1,000 ML IV SCH (07:13)
[2019-09-30] MEDS: buPROPion XL 150 MG TAB.ER.24H. PO SCH (08:04)
[2019-09-30] MEDS: SERTRALINE 50 MG TABLET. PO SCH (08:05)
[2019-09-30] MEDS: LACTOBACILLUS RHAMNOSUS GG 1 CAPSULE. PO SCH (08:05)
[2019-09-30] MEDS: cloNIDine TTS-2 1 PATCH PATCH TD SCH (08:05)
[2019-09-30] MEDS: LISINOPRIL 20 MG TABLET PO SCH (08:05)
[2019-09-30] MEDS: FOLIC/VIT B COMP W-C (RENAL) TABLET. PO SCH (08:06)
[2019-09-30] MEDS: FAMOTIDINE 20 MG TABLET. PO SCH (08:06)
[2019-09-30] MEDS: hydrALAZINE 25 MG TABLET PO SCH ×2 (08:06→14:00)
[2019-09-30] MEDS: CLOPIDOGREL BISULFATE 75 MG TABLET PO SCH (08:06)
[2019-09-30] MEDS: CARVEDILOL 6.25 MG TABLET. PO SCH ×2 (08:06→16:31)
[2019-09-30] MEDS: amLODIPine BESYLATE 10 MG TABLET PO SCH (08:07)
--- NOTE | 2019-09-30 08:08 | PDOC ---
PROGRESS NOTES Chief Complaint Chief Complaint A/P: Postop - Partial amputation of the right third finger done in a closed fashion at the level of the middle phalange on 09/25/2019 Acute encephalopathy secondary to metabolic etiology with hypoglycemia Right middle finger pain - dry gangrene, active infection evident from hyperemia on arteriogram Hyperkalemia - K 7.4 ESRD - MWF [facility] patient. Fistula functioning again now. She is very intermittently compliant. Acute on chronic diastolic CHF - with elevated BNP and CXR findings concerning Accelerated HTN: labile Anasarca Noncompliance: missed dialysis, no transport. Suspect missed meds as well. Hx of severe LE PAD - S/P bilateral BKA. more recent to left leg, incision intact Debility HX NONCOMPLIANCE Anxiety Chronic back pain Chronic anemia Elevated liver function tests Depression sec to med illness History of diabetes mellitus type 2 History of hypothyroidism Chronic pain syndrome History of bilateral BKA History of Present Illness History of Present Illness Ms. Salazar, is a 57 year old F w/ PMHx ESRD on HD M/W/F, hypertension, diabetes mellitus, bilateral below knee amputation, chronic pain and neuropathy who presents via EMS because of confusion and pain in right distal middle finger. K 7.4, BUN 92, and glucose 19. Admitted for further care with ID, vascular surgery, IR consulted. 09/23: [facility]J CVC placed with IR. 09/24: Right 3rd finger partial amputation with closure 09/25: Exchange CVC [facility]J with tunneled HD catheter due to thrombosed AV graft. 09/26: Hypoglycemia 09/27: Unable to d/c due to lack of staff at her boarding facility 09/28: will try to DC, coordinate care, some pain, her standard odd behavior Seen on dialysis. Afebrile. She is having some pain in her middle finger, asking for more pain medications. She is asking to discharge to [facility] and care because her things are there. To IR:s/p Successful pharmacologic and mechanical thrombolysis, left upper extremity with AV graft and Balloon angioplasty of outflow vein stenosis on 09/29 Had Permacath placed last week. Per Nephrology, once Declot done -permcath needs to be removed. Vitals Vitals Vital Signs Date Time Temp Pulse Resp B/P (MAP) Pulse Ox O2 Delivery O2 Flow Rate FiO2 09/30/19 05:47 20 99 Nasal Cannula 2.0 09/30/19 03:00 98.6 72 151/61 (91) 98.6 Physical Exam Physical Exam GENERAL: Propped up in bed, alert, coop HEENT: Oral cavity pink. No lesions seen NECK: Supple. LUNGS: Decreased breath sounds at the bases, nonlabored. HEART: S1, S2. regular ABDOMEN: Obese, soft, nontender, bowel sounds present. GENITOURINARY: No Calvillo. EXTREMITIES: Bilateral BKA stump healthy, Right 2nd amputation well- approx/sutures, clean SKIN: No signs of rash. warm to touch. NEUROLOGIC: Alert, answering questions appropriately LIJ Non-tunneled triple-lumen CVC (09/23) out Left-sided tunnelled HDC (09/25) without signs of complications Heart: Regular rate, Normal S1, Normal S2 Lungs: Clear Abdomen: Soft, No tenderness Extremities: Other (Right hand with clean dry intact dressing) Skin: Other (Right upper extremity finger amputation site is clean, dry, and in tact.) Labs LABS Laboratory Tests Test 09/29/19 08:25 09/29/19 11:57 09/29/19 20:16 Glucose (Fingerstick) 68 mg/dL (70-99) 80 mg/dL (70-99) 104 mg/dL (70-99) Assessment and Plan Assessmemt and Plan Problems Medical Problems: (1) Osteomyelitis Status: Acute (2) Osteomyelitis of finger Status: Acute Comment Review of Relevant I have reviewed the following items pamela (where applicable) has been applied. Labs Laboratory Tests Test 09/28/19 08:43 09/28/19 11:06 09/28/19 16:55 09/28/19 20:03 Glucose (Fingerstick) 77 mg/dL (70-99) 119 mg/dL (70-99) 127 mg/dL (70-99) 100 mg/dL (70-99) Test 09/29/19 07:41 09/29/19 08:25 09/29/19 11:57 09/29/19 20:16 Glucose (Fingerstick) 46 mg/dL (70-99) 68 mg/dL (70-99) 80 mg/dL (70-99) 104 mg/dL (70-99) Laboratory Tests Test 09/29/19 08:25 09/29/19 11:57 09/29/19 20:16 Glucose (Fingerstick) 68 mg/dL (70-99) 80 mg/dL (70-99) 104 mg/dL (70-99) Microbiology 09/25/19 Gram Stain - Final, Resulted 09/25/19 Aerobic and Anaerobic Culture - Preliminary, Resulted Medications Current Medications Morphine Sulfate (Morphine Sulfate) 2 mg PRN Q2HR PRN IV PAIN Last administered on 09/23/19at 00:02; Start 09/22/19 at 21:45; Stop 09/23/19 at 21:44; Status DC Vancomycin HCl 1.25 gm/Sodium Chloride 250 ml @ 166.667 mls/hr 1X ONCE IV Last administered on 09/23/19at 00:02; Start 09/22/19 at 23:15; Stop 09/23/19 at 00:44; Status DC Ondansetron HCl (Zofran) 4 mg 1X ONCE IVP Last administered on 09/23/19at 00:57; Start 09/23/19 at 00:15; Stop 09/23/19 at 00:16; Status DC Calcium Gluconate (Calcium Gluconate) 1,000 mg 1X ONCE IVP Last administered on 09/23/19at 01:00; Start 09/23/19 at 00:30; Stop 09/23/19 at 00:31; Status DC Dextrose (Dextrose 50%-Water Syringe) 25 gm 1X ONCE IV Last administered on 09/23/19at 00:59; Start 09/23/19 at 00:30; Stop 09/23/19 at 00:31; Status DC Insulin Human Regular (HumuLIN R VIAL) 10 unit 1X ONCE IV Last administered on 09/23/19at 00:59; Start 09/23/19 at 00:30; Stop 09/23/19 at 00:31; Status DC Sodium Polystyrene Sulfonate (Kayexalate) 30 gm 1X ONCE PO ; Start 09/23/19 at 00:30; Stop 09/23/19 at 00:31; Status DC Sodium Chloride 1,000 ml @ 1,000 mls/hr Q1H PRN IV hypotension; Start 09/23/19 at 09:38; Stop 09/23/19 at 15:37; Status DC Sodium Chloride 1,000 ml @ 400 mls/hr Q2H30M PRN IV PATENCY; Start 09/23/19 at 09:38; Stop 09/23/19 at 21:38; Status DC Info (PHARMACY MONITORING -- do not chart) 1 each PRN DAILY PRN MC SEE COMMENTS; Start 09/23/19 at 09:45; Status UNV Info (PHARMACY MONITORING -- do not chart) 1 each PRN DAILY PRN MC SEE COMMENTS; Start 09/23/19 at 09:45; Status Cancel Albuterol Sulfate (Ventolin Neb Soln) 2.5 mg PRN BID PRN INH SHORTNESS OF BREATH; Start 09/23/19 at 12:45 Amlodipine Besylate (Norvasc) 10 mg DAILY PO Last administered on 09/28/19 07:50; Start 09/23/19 at 13:00 Atorvastatin Calcium (Lipitor) 40 mg HS PO Last administered on 09/29/19 19:32; Start 09/23/19 at 21:00 Carvedilol (Coreg) 12.5 mg BIDWMEALS PO Last administered on 09/28/19at 17:11; Start 09/23/19 at 17:00 Clonidine HCl (Catapres Tts-2) 1 patch WEEKLY TD Last administered on 09/23/19at 21:00; Start 09/23/19 at 13:00 Clopidogrel Bisulfate (Plavix) 75 mg DAILYWBKFT PO Last administered on 09/29/19at 07:58; Start 09/23/19 at 13:00 Vitamin B Complex/ Vitamin C (Pinky-Shreya) 1 tab DAILY PO Last administered on 09/29/19at 07:58; Start 09/23/19 at 13:00 Guaifenesin (Robitussin Dm) 10 ml PRN Q6HRS PRN PO COUGH; Start 09/23/19 at 12:45 Hydralazine HCl (Apresoline) 25 mg TID PO Last administered on 09/29/19at 21:01; Start 09/23/19 at 14:00 Acetaminophen/ Hydrocodone Bitart (Lortab 5/325) 1 tab PRN Q6HRS PRN PO MODERTE PAIN Last administered on 09/24/19at 08:32; Start 09/23/19 at 12:45; Stop 09/24/19 at 10:14; Status DC Lactobacillus Rhamnosus (Culturelle) 1 cap BID PO Last administered on 09/29/19 19:32; Start 09/23/19 at 21:00 Latanoprost (Xalatan) 1 drop HS OU Last administered on 09/29/19 21:01; Start 09/23/19 at 21:00 Levothyroxine Sodium (Synthroid) 50 mcg DAILY06 PO Last administered on 09/29/19 05:52; Start 09/24/19 at 06:00 Lisinopril (Prinivil) 20 mg DAILY PO Last administered on 09/28/19 07:49; Start 09/23/19 at 13:00 Ondansetron HCl (Zofran Odt) 4 mg PRN Q6HRS PRN PO NAUSEA/VOMITING 1ST CHOICE; Start 09/23/19 at 12:45 Prochlorperazine Maleate (Compazine) 5 mg PRN TID PRN PO NAUSEA (2nd Choice); Start 09/23/19 at 12:45 Sertraline HCl (Zoloft) 50 mg DAILY PO Last administered on 09/29/19 07:58; Start 09/23/19 at 13:00 Bupropion HCl (Wellbutrin Xl) 300 mg DAILYWBKFT PO Last administered on 09/29/19 07:58; Start 09/24/19 at 08:00 Amylase/Lipase/ Protease (Zenpep 5,000) 1 cap TIDWMEALS PO Last administered on 09/29/19 07:58; Start 09/23/19 at 17:00 Famotidine (Pepcid) 40 mg QODAY PO Last administered on 09/28/19 07:41; Start 09/24/19 at 09:00 Pantoprazole Sodium (Protonix) 40 mg DAILYAC PO Last administered on 09/29/19 05:52; Start 09/23/19 at 16:30 Glucagon (Glucagen) 1 mg 1X ONCE IM Last administered on 09/23/19at 17:06; Start 09/23/19 at 17:00; Stop 09/23/19 at 17:01; Status DC Dextrose (Dextrose 50%-Water Syringe) 12.5 gm PRN Q15MIN PRN IV SEE COMMENTS Last administered on 09/24/19at 15:22; Start 09/23/19 at 17:45 Glucagon (Glucagen) 1 mg 1X ONCE IM Last administered on 09/23/19at 17:42; Start 09/23/19 at 17:45; Stop 09/23/19 at 17:46; Status DC Glucagon (Glucagen) 1 mg 1X ONCE IM Last administered on 09/24/19at 06:37; Start 09/24/19 at 06:30; Stop 09/24/19 at 06:31; Status DC Glucagon (Glucagen) 1 mg PRN Q15MIN PRN IM LOW BLOOD SUGAR Last administered on 09/24/19at 11:25; Start 09/24/19 at 06:45 Glucose (Insta-Glucose) 15 gm PRN Q15MIN PRN PO LOW BLOOD SUGAR; Start 09/24/19 at 06:45 Vancomycin HCl (Vanco Per Pharmacy) 1 each PRN DAILY PRN MC SEE COMMENTS Last administered on 09/27/19at 12:54; Start 09/24/19 at 09:00; Stop 09/27/19 at 15:40; Status DC Piperacillin Sod/ Tazobactam Sod (Zosyn Per Pharmacy) 1 each PRN DAILY PRN MC SEE COMMENTS; Start 09/24/19 at 09:00 Piperacillin Sod/ Tazobactam Sod 2.25 gm/Sodium Chloride 50 ml @ 100 mls/hr Q8HRS IV Last administered on 09/26/19at 19:32; Start 09/24/19 at 10:00; Stop 09/27/19 at 15:40; Status DC Ondansetron HCl (Zofran) 4 mg PRN Q6HRS PRN IV NAUSEA/VOMITING; Start 09/25/19 at 07:00; Stop 09/26/19 at 06:59; Status DC Fentanyl Citrate (Fentanyl 2ml Vial) 25 mcg PRN Q5MIN PRN IV MILD PAIN 1-3; Start 09/25/19 at 07:00; Stop 09/26/19 at 06:59; Status DC Fentanyl Citrate (Fentanyl 2ml Vial) 50 mcg PRN Q5MIN PRN IV MODERATE TO SEVERE PAIN Last administered on 09/24/19at 18:05; Start 09/25/19 at 07:00; Stop 09/26/19 at 06:59; Status DC Morphine Sulfate (Morphine Sulfate) 1 mg PRN Q10MIN PRN IV SEVERE PAIN 7-10; Start 09/25/19 at 07:00; Stop 09/26/19 at 06:59; Status DC Ringer's Solution 1,000 ml @ 30 mls/hr Q24H IV ; Start 09/25/19 at 07:00; Stop 09/25/19 at 18:59; Status DC Lidocaine HCl (Xylocaine-Mpf 1% 2ml Vial) 2 ml PRN 1X PRN ID PRIOR TO IV START; Start 09/25/19 at 07:00; Stop 09/26/19 at 06:59; Status DC Hydromorphone HCl (Dilaudid) 0.5 mg PRN Q10MIN PRN IV SEV PAIN, Second choice; Start 09/25/19 at 07:00; Stop 09/26/19 at 06:59; Status DC Prochlorperazine Edisylate (Compazine) 5 mg PACU PRN PRN IV NAUSEA, MRX1; Start 09/25/19 at 07:00; Stop 09/26/19 at 06:59; Status DC Oxycodone/ Acetaminophen (Percocet 10/325) 1 tab PRN Q4HRS PRN PO PAIN Last administered on 09/29/19at 19:33; Start 09/24/19 at 10:15 Ondansetron HCl (Zofran) 4 mg PRN Q6HRS PRN IV NAUSEA/VOMITING; Start 09/25/19 at 07:00; Stop 09/26/19 at 06:59; Status DC Fentanyl Citrate (Fentanyl 2ml Vial) 25 mcg PRN Q5MIN PRN IV MILD PAIN 1-3; Start 09/25/19 at 07:00; Stop 09/26/19 at 06:59; Status DC Fentanyl Citrate (Fentanyl 2ml Vial) 50 mcg PRN Q5MIN PRN IV MODERATE TO SEVERE PAIN; Start 09/25/19 at 07:00; Stop 09/26/19 at 06:59; Status DC Morphine Sulfate (Morphine Sulfate) 1 mg PRN Q10MIN PRN IV SEVERE PAIN 7-10; Start 09/25/19 at 07:00; Stop 09/26/19 at 06:59; Status DC Ringer's Solution 1,000 ml @ 30 mls/hr Q24H IV ; Start 09/25/19 at 07:00; Stop 09/25/19 at 18:59; Status DC Lidocaine HCl (Xylocaine-Mpf 1% 2ml Vial) 2 ml PRN 1X PRN ID PRIOR TO IV START; Start 09/25/19 at 07:00; Stop 09/26/19 at 06:59; Status UNV Hydromorphone HCl (Dilaudid) 0.5 mg PRN Q10MIN PRN IV SEV PAIN, Second choice; Start 09/25/19 at 07:00; Stop 09/26/19 at 06:59; Status UNV Prochlorperazine Edisylate (Compazine) 5 mg PACU PRN PRN IV NAUSEA, MRX1; Start 09/25/19 at 07:00; Stop 09/26/19 at 06:59; Status UNV Ondansetron HCl (Zofran) 4 mg PRN Q6HRS PRN IV NAUSEA/VOMITING; Start 09/24/19 at 11:00; Stop 09/25/19 at 10:59; Status UNV Fentanyl Citrate (Fentanyl 2ml Vial) 25 mcg PRN Q5MIN PRN IV MILD PAIN 1-3; Start 09/24/19 at 11:00; Stop 09/25/19 at 10:59; Status UNV Fentanyl Citrate (Fentanyl 2ml Vial) 50 mcg PRN Q5MIN PRN IV MODERATE TO SEVERE PAIN; Start 09/24/19 at 11:00; Stop 09/25/19 at 10:59; Status UNV Morphine Sulfate (Morphine Sulfate) 1 mg PRN Q10MIN PRN IV SEVERE PAIN 7-10; Start 09/24/19 at 11:00; Stop 09/25/19 at 10:59; Status UNV Ringer's Solution 1,000 ml @ 30 mls/hr Q24H IV ; Start 09/24/19 at 10:54; Stop 09/24/19 at 22:53; Status DC Lidocaine HCl (Xylocaine-Mpf 1% 2ml Vial) 2 ml PRN 1X PRN ID PRIOR TO IV START; Start 09/24/19 at 11:00; Stop 09/25/19 at 10:59; Status UNV Hydromorphone HCl (Dilaudid) 0.5 mg PRN Q10MIN PRN IV SEV PAIN, Second choice; Start 09/24/19 at 11:00; Stop 09/25/19 at 10:59; Status UNV Prochlorperazine Edisylate (Compazine) 5 mg PACU PRN PRN IV NAUSEA, MRX1; Start 09/24/19 at 11:00; Stop 09/25/19 at 10:59; Status UNV Dextrose 1,000 ml @ 50 mls/hr Q20H IV Last administered on 09/25/19at 22:52; Start 09/24/19 at 11:45 Vancomycin HCl (Vancomycin Random Level) 1 each 1X ONCE MC Last administered on 09/25/19at 06:00; Start 09/25/19 at 06:00; Stop 09/25/19 at 06:01; Status DC Lidocaine HCl (Buffered Lidocaine 1%) 3 ml STK-MED ONCE .ROUTE ; Start 09/24/19 at 13:50; Stop 09/24/19 at 13:51; Status DC Iodixanol (Visipaque 320) 100 ml STK-MED ONCE .ROUTE ; Start 09/24/19 at 13:50; Stop 09/24/19 at 13:51; Status DC Heparin Sodium/ Sodium Chloride 1,000 ml @ As Directed STK-MED ONCE .ROUTE ; Start 09/24/19 at 13:51; Stop 09/24/19 at 13:51; Status DC Propofol (Diprivan) 200 mg STK-MED ONCE IV ; Start 09/24/19 at 15:15; Stop 09/24/19 at 15:16; Status DC Lidocaine HCl (Lidocaine Pf 2% Vial) 5 ml STK-MED ONCE .ROUTE ; Start 09/24/19 at 15:15; Stop 09/24/19 at 15:16; Status DC Dextrose (Dextrose 50%-Water Syringe) 25 gm STK-MED ONCE IV ; Start 09/24/19 at 15:19; Stop 09/24/19 at 15:19; Status DC Heparin Sodium/ Sodium Chloride (HEPARIN for ARTERIAL LINE FLUSH) 1,000 unit 1X ONCE IART Last administered on 09/24/19at 17:06; Start 09/24/19 at 16:15; Stop 09/24/19 at 16:16; Status DC Heparin Sodium/ Sodium Chloride (HEPARIN for ARTERIAL LINE FLUSH) 1,000 unit 1X ONCE IART Last administered on 09/24/19at 17:07; Start 09/24/19 at 16:15; Stop 09/24/19 at 16:16; Status DC Lidocaine HCl (Buffered Lidocaine 1%) 3 ml 1X ONCE IJ Last administered on 09/24/19at 16:15; Start 09/24/19 at 16:15; Stop 09/24/19 at 16:16; Status DC Iodixanol (Visipaque 320) 100 ml 1X ONCE IART Last administered on 09/24/19at 17:05; Start 09/24/19 at 16:15; Stop 09/24/19 at 16:16; Status DC Heparin Sodium (Porcine) (Heparin Sodium) 10,000 unit STK-MED ONCE .ROUTE ; Start 09/24/19 at 16:21; Stop 09/24/19 at 16:21; Status DC Heparin Sodium/ Sodium Chloride 500 ml @ As Directed STK-MED ONCE .ROUTE ; Start 09/24/19 at 16:21; Stop 09/24/19 at 16:22; Status DC Nitroglycerin (Nitroglycerin) 200 mcg 1X ONCE IART Last administered on 09/24/19at 17:08; Start 09/24/19 at 16:45; Stop 09/24/19 at 16:46; Status DC Heparin Sodium/ Sodium Chloride 500 ml @ As Directed STK-MED ONCE .ROUTE ; Start 09/24/19 at 16:49; Stop 09/24/19 at 16:49; Status DC Fentanyl Citrate (Fentanyl 2ml Vial) 100 mcg STK-MED ONCE .ROUTE ; Start 09/24/19 at 17:41; Stop 09/24/19 at 17:41; Status DC Ondansetron HCl (Zofran) 4 mg PRN Q6HRS PRN IV NAUSEA/VOMITING; Start 09/24/19 at 18:00; Stop 09/25/19 at 17:59; Status DC Fentanyl Citrate (Fentanyl 2ml Vial) 25 mcg PRN Q5MIN PRN IV MILD PAIN 1-3; Start 09/24/19 at 18:00; Stop 09/25/19 at 17:59; Status DC Fentanyl Citrate (Fentanyl 2ml Vial) 50 mcg PRN Q5MIN PRN IV MODERATE TO SEVERE PAIN; Start 09/24/19 at 18:00; Stop 09/25/19 at 17:59; Status DC Morphine Sulfate (Morphine Sulfate) 1 mg PRN Q10MIN PRN IV SEVERE PAIN 7-10; Start 09/24/19 at 18:00; Stop 09/25/19 at 17:59; Status DC Ringer's Solution 1,000 ml @ 30 mls/hr Q24H IV ; Start 09/24/19 at 17:51; Stop 09/25/19 at 05:50; Status DC Lidocaine HCl (Xylocaine-Mpf 1% 2ml Vial) 2 ml PRN 1X PRN ID PRIOR TO IV START; Start 09/24/19 at 18:00; Stop 09/25/19 at 17:59; Status DC Hydromorphone HCl (Dilaudid) 0.5 mg PRN Q10MIN PRN IV SEV PAIN, Second choice; Start 09/24/19 at 18:00; Stop 09/25/19 at 17:59; Status DC Prochlorperazine Edisylate (Compazine) 5 mg PACU PRN PRN IV NAUSEA, MRX1; Start 09/24/19 at 18:00; Stop 09/25/19 at 17:59; Status DC Morphine Sulfate (Morphine Sulfate) 2 mg PRN Q2HR PRN IV PAIN Last administered on 09/26/19at 07:34; Start 09/24/19 at 18:45 Sodium Chloride 1,000 ml @ 1,000 mls/hr Q1H PRN IV hypotension Last administered on 09/25/19at 13:21; Start 09/25/19 at 07:42; Stop 09/25/19 at 13:41; Status DC Albumin Human 200 ml @ 200 mls/hr 1X PRN PRN IV Hypotension; Start 09/25/19 at 07:45; Stop 09/25/19 at 13:44; Status DC Sodium Chloride 1,000 ml @ 400 mls/hr Q2H30M PRN IV PATENCY; Start 09/25/19 at 07:42; Stop 09/25/19 at 19:41; Status DC Info (PHARMACY MONITORING -- do not chart) 1 each PRN DAILY PRN MC SEE COMMENTS; Start 09/25/19 at 07:45; Stop 09/29/19 at 13:16; Status DC Info (PHARMACY MONITORING -- do not chart) 1 each PRN DAILY PRN MC SEE COMMENTS; Start 09/25/19 at 07:45; Status UNV Cefazolin Sodium 1 gm/Sodium Chloride 500 ml @ 500 mls/hr 1X ONCE IRR Last administered on 09/25/19at 15:07; Start 09/25/19 at 09:00; Stop 09/25/19 at 09:59; Status DC Heparin Sodium (Porcine) (Heparin Sodium) 2,000 unit 1X ONCE INT CAT ; Start 09/25/19 at 09:30; Stop 09/25/19 at 09:31; Status DC Vancomycin HCl 500 mg/Sodium Chloride 100 ml @ 100 mls/hr QMWF IV Last administered on 09/25/19at 15:39; Start 09/25/19 at 16:00; Stop 09/27/19 at 15:40; Status DC Heparin Sodium (Porcine) (Heparin Sodium) 10,000 unit STK-MED ONCE .ROUTE ; Start 09/25/19 at 09:24; Stop 09/25/19 at 14:20; Status DC Ringer's Solution 1,000 ml @ 30 mls/hr Q24H IV ; Start 09/26/19 at 07:00; Stop 09/26/19 at 18:59; Status Cancel Lidocaine HCl (Lidocaine 1% 20ml Vial) 20 ml STK-MED ONCE .ROUTE ; Start 09/25/19 at 15:05; Stop 09/25/19 at 15:05; Status DC Lidocaine HCl (Lidocaine 1% 20ml Vial) 20 ml STK-MED ONCE INJ Last administered on 09/25/19at 14:05; Start 09/25/19 at 14:05; Stop 09/25/19 at 15:06; Status DC Sodium Polystyrene Sulfonate (Kayexalate) 15 gm 1X ONCE PO Last administered on 09/26/19at 06:10; Start 09/26/19 at 06:00; Stop 09/26/19 at 06:01; Status DC Fentanyl Citrate (Fentanyl 2ml Vial) 50 mcg PRN Q5MIN PRN IVP MODERATE TO SEVERE PAIN; Start 09/26/19 at 06:45; Stop 09/26/19 at 15:00; Status DC Morphine Sulfate (Morphine Sulfate) 1 mg PRN Q10MIN PRN IVP SEVERE PAIN 7-10; Start 09/26/19 at 06:45; Stop 09/26/19 at 15:00; Status DC Ringer's Solution 1,000 ml @ 30 mls/hr Q24H IV ; Start 09/26/19 at 07:00; Stop 09/27/19 at 06:59; Status DC Hydromorphone HCl (Dilaudid) 0.5 mg PRN Q10MIN PRN IVP SEV PAIN, Second choice; Start 09/26/19 at 06:45; Stop 09/27/19 at 06:44; Status DC Prochlorperazine Edisylate (Compazine) 5 mg PACU PRN PRN IVP NAUSEA, MRX1; Start 09/26/19 at 06:45; Stop 09/26/19 at 15:00; Status DC Sodium Chloride 1,000 ml @ 1,000 mls/hr Q1H PRN IV hypotension; Start 09/26/19 at 08:56; Stop 09/26/19 at 14:55; Status DC Albumin Human 200 ml @ 200 mls/hr 1X PRN PRN IV Hypotension; Start 09/26/19 at 09:00; Stop 09/26/19 at 14:59; Status DC Sodium Chloride 1,000 ml @ 400 mls/hr Q2H30M PRN IV PATENCY; Start 09/26/19 at 08:56; Stop 09/26/19 at 20:55; Status DC Info (PHARMACY MONITORING -- do not chart) 1 each PRN DAILY PRN MC SEE COMMENTS; Start 09/26/19 at 09:00; Status UNV Info (PHARMACY MONITORING -- do not chart) 1 each PRN DAILY PRN MC SEE COMMENTS; Start 09/26/19 at 09:00; Status Cancel Propofol (Diprivan) 200 mg STK-MED ONCE IV ; Start 09/26/19 at 12:10; Stop 09/26/19 at 12:11; Status DC Lidocaine HCl (Lidocaine Pf 2% Vial) 5 ml STK-MED ONCE .ROUTE ; Start 09/26/19 at 12:10; Stop 09/26/19 at 12:11; Status DC Propofol (Diprivan) 200 mg STK-MED ONCE IV ; Start 09/26/19 at 12:10; Stop 09/26/19 at 12:11; Status DC Lidocaine/ Epinephrine (LIDOCAINE 1%-EPI 1:100,000 Multi-Dose) 20 ml STK-MED ONCE .ROUTE ; Start 09/26/19 at 12:55; Stop 09/26/19 at 12:56; Status DC Lidocaine/ Epinephrine (LIDOCAINE 1%-EPI 1:100,000 Multi-Dose) 20 ml 1X ONCE INJ Last administered on 09/26/19at 14:00; Start 09/26/19 at 14:00; Stop 09/26/19 at 14:01; Status DC Morphine Sulfate (Morphine Sulfate) 2 mg PRN Q2HR PRN IM PAIN Last administered on 09/30/19at 05:17; Start 09/26/19 at 20:45 Haloperidol Lactate (Haldol Inj) 5 mg PRN Q8HRS PRN IM AGITATION Last administered on 09/29/19at 23:33; Start 09/26/19 at 22:45 Sodium Chloride 1,000 ml @ 1,000 mls/hr Q1H PRN IV hypotension; Start 09/27/19 at 09:28; Stop 09/27/19 at 15:27; Status DC Albumin Human 200 ml @ 200 mls/hr 1X PRN PRN IV Hypotension; Start 09/27/19 at 09:30; Stop 09/27/19 at 15:29; Status DC Diphenhydramine HCl (Benadryl) 25 mg 1X PRN PRN IV ITCHING; Start 09/27/19 at 09:30; Stop 09/28/19 at 09:29; Status DC Diphenhydramine HCl (Benadryl) 25 mg 1X PRN PRN IV ITCHING; Start 09/27/19 at 09:30; Stop 09/28/19 at 09:29; Status DC Sodium Chloride 1,000 ml @ 400 mls/hr Q2H30M PRN IV PATENCY; Start 09/27/19 at 09:28; Stop 09/27/19 at 21:27; Status DC Info (PHARMACY MONITORING -- do not chart) 1 each PRN DAILY PRN MC SEE COMMENTS; Start 09/27/19 at 09:30 Sodium Chloride 1,000 ml @ 125 mls/hr 1X ONCE IV ; Start 09/29/19 at 07:45; Stop 09/29/19 at 07:46; Status DC Ondansetron HCl (Zofran) 4 mg PRN Q8HRS PRN IVP NAUSEA/VOMITING; Start 09/29/19 at 07:45; Stop 09/29/19 at 07:46; Status DC Morphine Sulfate (Morphine Sulfate) 4 mg PRN Q2HR PRN IV PAIN; Start 09/29/19 at 07:45; Stop 09/29/19 at 07:46; Status DC Active Scripts Active Percocet 10-325 Mg Tablet (Oxycodone/Acetaminophen) 1 Each Tablet 1 Tab PO PRN Q4HRS PRN Guaifenesin Dm Syrup (Guaifenesin/Dextromethorphan) 5 Ml Syrup 10 Ml PO PRN Q6HRS PRN 10 Days Carvedilol (Carvedilol) 6.25 Mg Tablet 12.5 Mg PO BIDWMEALS Hydralazine Hcl 25 Mg Tablet 25 Mg PO TID Humalog (Insulin Lispro) 100 Unit/1 Ml Insuln.pen 0 Units SQ TIDWMEALS 28 Days Culturelle (Lactobacillus Rhamnosus Gg) 1 Each Cap.sprink 1 Cap PO BID 30 Days Ondansetron Odt (Ondansetron) 4 Mg Tab.rapdis 4 Mg PO PRN Q6HRS PRN 28 Days Clopidogrel (Clopidogrel Bisulfate) 75 Mg Tablet 75 Mg PO DAILYWBKFT 30 Days Pinky-Shreya Tablet (Folic Acid/Vitamin B Comp W-C) 0.8 Mg Tablet 1 Tab PO DAILY Tylenol (Acetaminophen) 325 Mg Capsule 650 Mg PO Q6-8HRS PRN Zantac (Ranitidine Hcl) 300 Mg Tablet 1 Tab PO QHS Compazine (Prochlorperazine Maleate) 5 Mg Tablet 5 Mg PO PRN TID PRN 10 Days [Pantoprazole] 40 MG Tablet. 40 Mg PO DAILYAC 30 Days Reported Bupropion Xl (Bupropion Hcl) 300 Mg Tab.er.24h 1 Tab PO DAILYWBKFT Zoloft (Sertraline Hcl) 50 Mg Tablet 50 Mg PO DAILY Lisinopril 20 Mg Tablet 20 Mg PO DAILY Creon Dr 6,000 Units Capsule (Lipase/Protease/Amylase) 1 Each Capsule.dr 1 Tab PO TID Proair Hfa (Albuterol Sulfate) 8.5 Gm Hfa.aer.ad 2 Puff INH BID PRN Levothyroxine Sodium 50 Mcg Tablet 1 Tab PO DAILY Clonidine Tts-2 (Clonidine) 1 Each Patch.tdwk 1 Patch TD WEEKLY Amlodipine Besylate 5 Mg Tablet 10 Mg PO DAILY Atorvastatin Calcium 40 Mg Tablet 40 Mg PO HS Latanoprost 2.5 Ml Drops 1 Drop EACHEYE HS Vitals/I & O Vital Sign - Last 24 Hours 09/29/19 09/29/19 09/29/19 09/29/19 08:22 11:00 14:36 14:37 Temp 98.4 98.4 Pulse 71 71 Resp 18 B/P (MAP) 139/45 (76) 139/45 Pulse Ox 97 O2 Delivery Room Air Room Air Room Air 09/29/19 09/29/19 09/29/19 09/29/19 15:00 15:37 15:58 16:28 Temp 98.7 98.7 Pulse 65 Resp 18 B/P (MAP) 130/42 (71) Pulse Ox 98 O2 Delivery Nasal Cannula Room Air Room Air Room Air O2 Flow Rate 2.0 09/29/19 09/29/19 09/29/19 09/29/19 19:00 19:33 20:00 20:33 Temp 97.4 97.4 Pulse 67 Resp 18 20 20 B/P (MAP) 128/42 (70) Pulse Ox 97 98 98 O2 Delivery Room Air Room Air Nasal Cannula Nasal Cannula O2 Flow Rate 2.0 2.0 09/29/19 09/29/19 09/29/19 09/29/19 21:01 22:24 22:53 22:54 Temp 97.7 97.7 Pulse 67 72 Resp 20 18 20 B/P (MAP) 128/42 142/44 (76) Pulse Ox 98 98 98 O2 Delivery Nasal Cannula Room Air Nasal Cannula O2 Flow Rate 2.0 2.0 09/30/19 09/30/19 09/30/19 03:00 05:17 05:47 Temp 98.6 98.6 Pulse 72 Resp 20 20 20 B/P (MAP) 151/61 (91) Pulse Ox 99 99 99 O2 Delivery Room Air Nasal Cannula Nasal Cannula O2 Flow Rate 2.0 2.0 Intake and Output 09/29/19 09/29/19 09/30/19 15:00 23:00 07:00 Intake Total 500 ml 0 ml Balance 500 ml 0 ml Justicifation of Admission Dx: Justifications for Admission: Justification of Admission Dx: Yes FELI SHAH MD Sep 30, 2019 08:08
[2019-09-30] MEDS: oxyCODONE/APAP 10/325 1 TAB TABLET PO PRN (08:14)
[2019-09-30 08:18] LABS: CALCIUM 8.1 mg/dL (8.5-10.1); CREATININE 5.7 mg/dL (0.6-1.0); GFR 9.3; POTASSIUM 4.6 mmol/L (3.5-5.1)
--- NOTE | 2019-09-30 11:01 | NUR ---
SW following. Discussed with RN, pt from home, discharging today home with [facility] caregivers, after dialysis. SW will continue to follow for any discharge planning needs.
[2019-09-30] MEDS ORDERED: LIDOCAINE 1% PF 2 ML VIAL. ID PRN (11:45)
[2019-09-30] MEDS ORDERED: IV NORMAL SALINE 1000ML BAG 1,000 ML IV PRN ×2 (12:00)
[2019-09-30] MEDS ORDERED: DIALYSIS PATIENT. MC PRN ×2 (12:00)
[2019-09-30] MEDS ORDERED: IV RINGERS,LACTATED 1000ML 1,000 ML IV SCH (12:00)
[2019-09-30] MEDS ORDERED: ALBUMIN HUMAN 25% 200 ML IV PRN (12:00)
[2019-09-30] MEDS ORDERED: fentaNYL PF VIAL 100 MCG/2 ML VIAL ONE (13:12)
[2019-09-30] MEDS ORDERED: MIDAZOLAM HCL/PF 2 MG/2 ML VIAL. ONE (13:12)
[2019-09-30] MEDS ORDERED: KETAMINE HCL IN NACL, ISO-OSM 50 MG/5 ML SYRINGE ONE (13:12)
[2019-09-30] MEDS ORDERED: PROPOFOL 50 ML IV ONE (13:12)
[2019-09-30] MEDS ORDERED: IODIXANOL 320 MG/ML 100 ML VIAL. ONE (13:19)
[2019-09-30] MEDS ORDERED: IODIXANOL 320 MG/ML 50ML VIAL. ONE (13:19)
[2019-09-30] MEDS ORDERED: LIDOCAINE WITH 8.4% SOD BICARB 3 ML DISP.SYRIN. ONE (13:19)
[2019-09-30] MEDS ORDERED: ALTEPLASE 2 MG VIAL IV ONE (13:30)
[2019-09-30] MEDS ORDERED: IODIXANOL 320 MG/ML 100 ML VIAL. IART ONE (13:45)
[2019-09-30] MEDS ORDERED: LIDOCAINE WITH 8.4% SOD BICARB 3 ML DISP.SYRIN. IJ ONE (13:45)
[2019-09-30] MEDS ORDERED: HEPARIN for IV BOLUS 10,000 UNIT/10 ML VIAL. ONE (13:48)
[2019-09-30] MEDS ORDERED: DEXTROSE 50% 25 GM / 50ML DISP.SYRIN. IV ONE ×2 (13:56→14:00)
[2019-09-30] MEDS ORDERED: CONTRAST GIVEN. MC PRN (14:15)
[2019-09-30] MEDS ORDERED: ALBUMIN HUMAN 5% 500 ML IV ONE (14:15)
--- NOTE | 2019-09-30 14:26 | NUR ---
This RN checked patient's blood sugar prior to start of declot/shuntogram and was 47. Anesthesia in room preparing to sedate patient and gave 1 amp D50, started patient on fluids and albumin. Patient currently resting comfortably with anesthesia during Interventional Radiology case. Addendum: 09/30/19 at 1512 by JAVIER BONILLA RN Anesthesia gave 1/2 an amp of D50 for patient's low blood sugar.
[2019-09-30] MEDS ORDERED: HEPARIN for IV BOLUS 10,000 UNIT/10 ML VIAL. IV ONE (14:30)
--- NOTE | 2019-09-30 14:56 | PDOC ---
PROGRESS NOTES Subjective Subjective My finger hurts. 59 year old female with a long history of end-stage renal disease, on chronic hemodialysis, hypertension, diabetes mellitus and bilateral [id number] amputations, who presented with significant pain in her right third finger and gangrene. This had been present probably for a few weeks. On September 25, 2019 Dr. Villeda performed a right third finger partial closed amputation. Pt also has a recent history of a left upper arm AV shunt which is currently clotted. She is dialyzing through a temporary dialysis catheter and is headed to dialysis next. She anticipates discharge later today. Objective Objective Vital Signs Date Time Temp Pulse Resp B/P (MAP) Pulse Ox O2 Delivery O2 Flow Rate FiO2 09/30/19 11:00 09/30/19 10:27 16 Room Air 09/30/19 08:07 78 09/30/19 07:00 98.2 97 98.2 09/30/19 05:47 2.0 Intake and Output 09/30/19 07:00 Intake Total 500 ml Balance 500 ml Intake Oral 500 ml # Voids 1 # Bowel Movements 1 Physical Exam Physical Exam Her VS are stable. She is awake and alert, answeing questions appropriately. NAD. Her right 3rd finger tip looks great. Sutures are intact, incision is approximated, without redness, edema or drainage. No skin edge necrosis. Her left upper arm AV Shunt has no thrill or bruit. General: Alert, Cooperative, No acute distress Neuro: Normal speech Skin: No breakdown Assessment Assessment Problems Medical Problems: (1) Osteomyelitis Status: Acute (2) Osteomyelitis of finger Status: Acute Plan Plan of Care 59 year old diabetic female with ESRD, dependent on HD and with a history of severe PVD and tobacco abuse. She is post op day #5 from right 3rd finger tip amputation. The surgical site is healing well. She is anticipating return to her care facility later today. Dr. Villeda saw her in I.R. today as well. Plan: Will try to get her left upper arm AV Shunt declotted today prior to discharge.Otherwise we risk having to place new arm access and she has no good options for that. Continue ASA, Plavix and atorvostatin daily. May discharge from a vascular surgery standpoint once left upper arm graft has been opened by I.R. Comment Review of Relevant I have reviewed the following items pamela (where applicable) has been applied. Labs Laboratory Tests Test 09/28/19 16:55 09/28/19 20:03 09/29/19 07:41 09/29/19 08:25 Glucose (Fingerstick) 127 mg/dL (70-99) 100 mg/dL (70-99) 46 mg/dL (70-99) 68 mg/dL (70-99) Test 09/29/19 11:57 09/29/19 20:16 09/30/19 07:50 09/30/19 13:54 Glucose (Fingerstick) 80 mg/dL (70-99) 104 mg/dL (70-99) 47 mg/dL (70-99) Sodium Level 135 mmol/L (136-145) Potassium Level 4.6 mmol/L (3.5-5.1) Chloride Level 96 mmol/L (98-107) Carbon Dioxide Level 28 mmol/L (21-32) Anion Gap 11 (6-14) Blood Urea Nitrogen 33 mg/dL (7-20) Creatinine 5.7 mg/dL (0.6-1.0) Estimated GFR (Cockcroft-Gault) 9.3 Glucose Level 62 mg/dL (70-99) Calcium Level 8.1 mg/dL (8.5-10.1) Laboratory Tests Test 09/29/19 20:16 09/30/19 07:50 09/30/19 13:54 Glucose (Fingerstick) 104 mg/dL (70-99) 47 mg/dL (70-99) Sodium Level 135 mmol/L (136-145) Potassium Level 4.6 mmol/L (3.5-5.1) Chloride Level 96 mmol/L (98-107) Carbon Dioxide Level 28 mmol/L (21-32) Anion Gap 11 (6-14) Blood Urea Nitrogen 33 mg/dL (7-20) Creatinine 5.7 mg/dL (0.6-1.0) Estimated GFR (Cockcroft-Gault) 9.3 Glucose Level 62 mg/dL (70-99) Calcium Level 8.1 mg/dL (8.5-10.1) Microbiology 09/25/19 Gram Stain - Final, Resulted 09/25/19 Aerobic and Anaerobic Culture - Preliminary, Resulted Medications Current Medications Morphine Sulfate (Morphine Sulfate) 2 mg PRN Q2HR PRN IV PAIN Last administered on 09/23/19at 00:02; Start 09/22/19 at 21:45; Stop 09/23/19 at 21:44; Status DC Vancomycin HCl 1.25 gm/Sodium Chloride 250 ml @ 166.667 mls/hr 1X ONCE IV Last administered on 09/23/19at 00:02; Start 09/22/19 at 23:15; Stop 09/23/19 at 00:44; Status DC Ondansetron HCl (Zofran) 4 mg 1X ONCE IVP Last administered on 09/23/19at 00:57; Start 09/23/19 at 00:15; Stop 09/23/19 at 00:16; Status DC Calcium Gluconate (Calcium Gluconate) 1,000 mg 1X ONCE IVP Last administered on 09/23/19at 01:00; Start 09/23/19 at 00:30; Stop 09/23/19 at 00:31; Status DC Dextrose (Dextrose 50%-Water Syringe) 25 gm 1X ONCE IV Last administered on 09/23/19at 00:59; Start 09/23/19 at 00:30; Stop 09/23/19 at 00:31; Status DC Insulin Human Regular (HumuLIN R VIAL) 10 unit 1X ONCE IV Last administered on 09/23/19at 00:59; Start 09/23/19 at 00:30; Stop 09/23/19 at 00:31; Status DC Sodium Polystyrene Sulfonate (Kayexalate) 30 gm 1X ONCE PO ; Start 09/23/19 at 00:30; Stop 09/23/19 at 00:31; Status DC Sodium Chloride 1,000 ml @ 1,000 mls/hr Q1H PRN IV hypotension; Start 09/23/19 at 09:38; Stop 09/23/19 at 15:37; Status DC Sodium Chloride 1,000 ml @ 400 mls/hr Q2H30M PRN IV PATENCY; Start 09/23/19 at 09:38; Stop 09/23/19 at 21:38; Status DC Info (PHARMACY MONITORING -- do not chart) 1 each PRN DAILY PRN MC SEE COMMENTS; Start 09/23/19 at 09:45; Status UNV Info (PHARMACY MONITORING -- do not chart) 1 each PRN DAILY PRN MC SEE COMMENTS; Start 09/23/19 at 09:45; Status Cancel Albuterol Sulfate (Ventolin Neb Soln) 2.5 mg PRN BID PRN INH SHORTNESS OF BREATH; Start 09/23/19 at 12:45 Amlodipine Besylate (Norvasc) 10 mg DAILY PO Last administered on 09/30/19 08:07; Start 09/23/19 at 13:00 Atorvastatin Calcium (Lipitor) 40 mg HS PO Last administered on 09/29/19 19:32; Start 09/23/19 at 21:00 Carvedilol (Coreg) 12.5 mg BIDWMEALS PO Last administered on 09/30/19 08:06; Start 09/23/19 at 17:00 Clonidine HCl (Catapres Tts-2) 1 patch WEEKLY TD Last administered on 09/30/19 08:05; Start 09/23/19 at 13:00 Clopidogrel Bisulfate (Plavix) 75 mg DAILYWBKFT PO Last administered on 09/30/19 08:06; Start 09/23/19 at 13:00 Vitamin B Complex/ Vitamin C (Pinky-Shreya) 1 tab DAILY PO Last administered on 09/30/19 08:06; Start 09/23/19 at 13:00 Guaifenesin (Robitussin Dm) 10 ml PRN Q6HRS PRN PO COUGH; Start 09/23/19 at 12:45 Hydralazine HCl (Apresoline) 25 mg TID PO Last administered on 09/30/19 08:06; Start 09/23/19 at 14:00 Acetaminophen/ Hydrocodone Bitart (Lortab 5/325) 1 tab PRN Q6HRS PRN PO MODERTE PAIN Last administered on 09/24/19 08:32; Start 09/23/19 at 12:45; Stop 09/24/19 at 10:14; Status DC Lactobacillus Rhamnosus (Culturelle) 1 cap BID PO Last administered on 09/30/19 08:05; Start 09/23/19 at 21:00 Latanoprost (Xalatan) 1 drop HS OU Last administered on 09/29/19 21:01; Start 09/23/19 at 21:00 Levothyroxine Sodium (Synthroid) 50 mcg DAILY06 PO Last administered on 09/29/19 05:52; Start 09/24/19 at 06:00 Lisinopril (Prinivil) 20 mg DAILY PO Last administered on 09/30/19at 08:05; Start 09/23/19 at 13:00 Ondansetron HCl (Zofran Odt) 4 mg PRN Q6HRS PRN PO NAUSEA/VOMITING 1ST CHOICE; Start 09/23/19 at 12:45 Prochlorperazine Maleate (Compazine) 5 mg PRN TID PRN PO NAUSEA (2nd Choice); Start 09/23/19 at 12:45 Sertraline HCl (Zoloft) 50 mg DAILY PO Last administered on 09/30/19at 08:05; Start 09/23/19 at 13:00 Bupropion HCl (Wellbutrin Xl) 300 mg DAILYWBKFT PO Last administered on 09/30/19at 08:04; Start 09/24/19 at 08:00 Amylase/Lipase/ Protease (Zenpep 5,000) 1 cap TIDWMEALS PO Last administered on 09/30/19at 08:05; Start 09/23/19 at 17:00 Famotidine (Pepcid) 40 mg QODAY PO Last administered on 09/30/19at 08:06; Start 09/24/19 at 09:00 Pantoprazole Sodium (Protonix) 40 mg DAILYAC PO Last administered on 09/29/19at 05:52; Start 09/23/19 at 16:30 Glucagon (Glucagen) 1 mg 1X ONCE IM Last administered on 09/23/19at 17:06; Start 09/23/19 at 17:00; Stop 09/23/19 at 17:01; Status DC Dextrose (Dextrose 50%-Water Syringe) 12.5 gm PRN Q15MIN PRN IV SEE COMMENTS Last administered on 09/24/19at 15:22; Start 09/23/19 at 17:45 Glucagon (Glucagen) 1 mg 1X ONCE IM Last administered on 09/23/19at 17:42; Start 09/23/19 at 17:45; Stop 09/23/19 at 17:46; Status DC Glucagon (Glucagen) 1 mg 1X ONCE IM Last administered on 09/24/19at 06:37; Start 09/24/19 at 06:30; Stop 09/24/19 at 06:31; Status DC Glucagon (Glucagen) 1 mg PRN Q15MIN PRN IM LOW BLOOD SUGAR Last administered on 09/24/19at 11:25; Start 09/24/19 at 06:45 Glucose (Insta-Glucose) 15 gm PRN Q15MIN PRN PO LOW BLOOD SUGAR; Start 09/24/19 at 06:45 Vancomycin HCl (Vanco Per Pharmacy) 1 each PRN DAILY PRN MC SEE COMMENTS Last administered on 09/27/19at 12:54; Start 09/24/19 at 09:00; Stop 09/27/19 at 15:40; Status DC Piperacillin Sod/ Tazobactam Sod (Zosyn Per Pharmacy) 1 each PRN DAILY PRN MC SEE COMMENTS; Start 09/24/19 at 09:00; Stop 09/30/19 at 11:49; Status DC Piperacillin Sod/ Tazobactam Sod 2.25 gm/Sodium Chloride 50 ml @ 100 mls/hr Q8HRS IV Last administered on 09/26/19at 19:32; Start 09/24/19 at 10:00; Stop 09/27/19 at 15:40; Status DC Ondansetron HCl (Zofran) 4 mg PRN Q6HRS PRN IV NAUSEA/VOMITING; Start 09/25/19 at 07:00; Stop 09/26/19 at 06:59; Status DC Fentanyl Citrate (Fentanyl 2ml Vial) 25 mcg PRN Q5MIN PRN IV MILD PAIN 1-3; Start 09/25/19 at 07:00; Stop 09/26/19 at 06:59; Status DC Fentanyl Citrate (Fentanyl 2ml Vial) 50 mcg PRN Q5MIN PRN IV MODERATE TO SEVERE PAIN Last administered on 09/24/19at 18:05; Start 09/25/19 at 07:00; Stop 09/26/19 at 06:59; Status DC Morphine Sulfate (Morphine Sulfate) 1 mg PRN Q10MIN PRN IV SEVERE PAIN 7-10; Start 09/25/19 at 07:00; Stop 09/26/19 at 06:59; Status DC Ringer's Solution 1,000 ml @ 30 mls/hr Q24H IV ; Start 09/25/19 at 07:00; Stop 09/25/19 at 18:59; Status DC Lidocaine HCl (Xylocaine-Mpf 1% 2ml Vial) 2 ml PRN 1X PRN ID PRIOR TO IV START; Start 09/25/19 at 07:00; Stop 09/26/19 at 06:59; Status DC Hydromorphone HCl (Dilaudid) 0.5 mg PRN Q10MIN PRN IV SEV PAIN, Second choice; Start 09/25/19 at 07:00; Stop 09/26/19 at 06:59; Status DC Prochlorperazine Edisylate (Compazine) 5 mg PACU PRN PRN IV NAUSEA, MRX1; Start 09/25/19 at 07:00; Stop 09/26/19 at 06:59; Status DC Oxycodone/ Acetaminophen (Percocet 10/325) 1 tab PRN Q4HRS PRN PO PAIN Last administered on 09/30/19at 08:14; Start 09/24/19 at 10:15 Ondansetron HCl (Zofran) 4 mg PRN Q6HRS PRN IV NAUSEA/VOMITING; Start 09/25/19 at 07:00; Stop 09/26/19 at 06:59; Status DC Fentanyl Citrate (Fentanyl 2ml Vial) 25 mcg PRN Q5MIN PRN IV MILD PAIN 1-3; Start 09/25/19 at 07:00; Stop 09/26/19 at 06:59; Status DC Fentanyl Citrate (Fentanyl 2ml Vial) 50 mcg PRN Q5MIN PRN IV MODERATE TO SEVERE PAIN; Start 09/25/19 at 07:00; Stop 09/26/19 at 06:59; Status DC Morphine Sulfate (Morphine Sulfate) 1 mg PRN Q10MIN PRN IV SEVERE PAIN 7-10; Start 09/25/19 at 07:00; Stop 09/26/19 at 06:59; Status DC Ringer's Solution 1,000 ml @ 30 mls/hr Q24H IV ; Start 09/25/19 at 07:00; Stop 09/25/19 at 18:59; Status DC Lidocaine HCl (Xylocaine-Mpf 1% 2ml Vial) 2 ml PRN 1X PRN ID PRIOR TO IV START; Start 09/25/19 at 07:00; Stop 09/26/19 at 06:59; Status UNV Hydromorphone HCl (Dilaudid) 0.5 mg PRN Q10MIN PRN IV SEV PAIN, Second choice; Start 09/25/19 at 07:00; Stop 09/26/19 at 06:59; Status UNV Prochlorperazine Edisylate (Compazine) 5 mg PACU PRN PRN IV NAUSEA, MRX1; Start 09/25/19 at 07:00; Stop 09/26/19 at 06:59; Status UNV Ondansetron HCl (Zofran) 4 mg PRN Q6HRS PRN IV NAUSEA/VOMITING; Start 09/24/19 at 11:00; Stop 09/25/19 at 10:59; Status UNV Fentanyl Citrate (Fentanyl 2ml Vial) 25 mcg PRN Q5MIN PRN IV MILD PAIN 1-3; Start 09/24/19 at 11:00; Stop 09/25/19 at 10:59; Status UNV Fentanyl Citrate (Fentanyl 2ml Vial) 50 mcg PRN Q5MIN PRN IV MODERATE TO SEVERE PAIN; Start 09/24/19 at 11:00; Stop 09/25/19 at 10:59; Status UNV Morphine Sulfate (Morphine Sulfate) 1 mg PRN Q10MIN PRN IV SEVERE PAIN 7-10; Start 09/24/19 at 11:00; Stop 09/25/19 at 10:59; Status UNV Ringer's Solution 1,000 ml @ 30 mls/hr Q24H IV ; Start 09/24/19 at 10:54; Stop 09/24/19 at 22:53; Status DC Lidocaine HCl (Xylocaine-Mpf 1% 2ml Vial) 2 ml PRN 1X PRN ID PRIOR TO IV START; Start 09/24/19 at 11:00; Stop 09/25/19 at 10:59; Status UNV Hydromorphone HCl (Dilaudid) 0.5 mg PRN Q10MIN PRN IV SEV PAIN, Second choice; Start 09/24/19 at 11:00; Stop 09/25/19 at 10:59; Status UNV Prochlorperazine Edisylate (Compazine) 5 mg PACU PRN PRN IV NAUSEA, MRX1; Start 09/24/19 at 11:00; Stop 09/25/19 at 10:59; Status UNV Dextrose 1,000 ml @ 50 mls/hr Q20H IV Last administered on 09/25/19at 22:52; Start 09/24/19 at 11:45 Vancomycin HCl (Vancomycin Random Level) 1 each 1X ONCE MC Last administered on 09/25/19at 06:00; Start 09/25/19 at 06:00; Stop 09/25/19 at 06:01; Status DC Lidocaine HCl (Buffered Lidocaine 1%) 3 ml STK-MED ONCE .ROUTE ; Start 09/24/19 at 13:50; Stop 09/24/19 at 13:51; Status DC Iodixanol (Visipaque 320) 100 ml STK-MED ONCE .ROUTE ; Start 09/24/19 at 13:50; Stop 09/24/19 at 13:51; Status DC Heparin Sodium/ Sodium Chloride 1,000 ml @ As Directed STK-MED ONCE .ROUTE ; Start 09/24/19 at 13:51; Stop 09/24/19 at 13:51; Status DC Propofol (Diprivan) 200 mg STK-MED ONCE IV ; Start 09/24/19 at 15:15; Stop 09/24/19 at 15:16; Status DC Lidocaine HCl (Lidocaine Pf 2% Vial) 5 ml STK-MED ONCE .ROUTE ; Start 09/24/19 at 15:15; Stop 09/24/19 at 15:16; Status DC Dextrose (Dextrose 50%-Water Syringe) 25 gm STK-MED ONCE IV ; Start 09/24/19 at 15:19; Stop 09/24/19 at 15:19; Status DC Heparin Sodium/ Sodium Chloride (HEPARIN for ARTERIAL LINE FLUSH) 1,000 unit 1X ONCE IART Last administered on 09/24/19at 17:06; Start 09/24/19 at 16:15; Stop 09/24/19 at 16:16; Status DC Heparin Sodium/ Sodium Chloride (HEPARIN for ARTERIAL LINE FLUSH) 1,000 unit 1X ONCE IART Last administered on 09/24/19at 17:07; Start 09/24/19 at 16:15; Stop 09/24/19 at 16:16; Status DC Lidocaine HCl (Buffered Lidocaine 1%) 3 ml 1X ONCE IJ Last administered on 09/24/19at 16:15; Start 09/24/19 at 16:15; Stop 09/24/19 at 16:16; Status DC Iodixanol (Visipaque 320) 100 ml 1X ONCE IART Last administered on 09/24/19at 17:05; Start 09/24/19 at 16:15; Stop 09/24/19 at 16:16; Status DC Heparin Sodium (Porcine) (Heparin Sodium) 10,000 unit STK-MED ONCE .ROUTE ; Start 09/24/19 at 16:21; Stop 09/24/19 at 16:21; Status DC Heparin Sodium/ Sodium Chloride 500 ml @ As Directed STK-MED ONCE .ROUTE ; Start 09/24/19 at 16:21; Stop 09/24/19 at 16:22; Status DC Nitroglycerin (Nitroglycerin) 200 mcg 1X ONCE IART Last administered on 09/24/19at 17:08; Start 09/24/19 at 16:45; Stop 09/24/19 at 16:46; Status DC Heparin Sodium/ Sodium Chloride 500 ml @ As Directed STK-MED ONCE .ROUTE ; Start 09/24/19 at 16:49; Stop 09/24/19 at 16:49; Status DC Fentanyl Citrate (Fentanyl 2ml Vial) 100 mcg STK-MED ONCE .ROUTE ; Start 09/24/19 at 17:41; Stop 09/24/19 at 17:41; Status DC Ondansetron HCl (Zofran) 4 mg PRN Q6HRS PRN IV NAUSEA/VOMITING; Start 09/24/19 at 18:00; Stop 09/25/19 at 17:59; Status DC Fentanyl Citrate (Fentanyl 2ml Vial) 25 mcg PRN Q5MIN PRN IV MILD PAIN 1-3; Start 09/24/19 at 18:00; Stop 09/25/19 at 17:59; Status DC Fentanyl Citrate (Fentanyl 2ml Vial) 50 mcg PRN Q5MIN PRN IV MODERATE TO SEVERE PAIN; Start 09/24/19 at 18:00; Stop 09/25/19 at 17:59; Status DC Morphine Sulfate (Morphine Sulfate) 1 mg PRN Q10MIN PRN IV SEVERE PAIN 7-10; Start 09/24/19 at 18:00; Stop 09/25/19 at 17:59; Status DC Ringer's Solution 1,000 ml @ 30 mls/hr Q24H IV ; Start 09/24/19 at 17:51; Stop 09/25/19 at 05:50; Status DC Lidocaine HCl (Xylocaine-Mpf 1% 2ml Vial) 2 ml PRN 1X PRN ID PRIOR TO IV START; Start 09/24/19 at 18:00; Stop 09/25/19 at 17:59; Status DC Hydromorphone HCl (Dilaudid) 0.5 mg PRN Q10MIN PRN IV SEV PAIN, Second choice; Start 09/24/19 at 18:00; Stop 09/25/19 at 17:59; Status DC Prochlorperazine Edisylate (Compazine) 5 mg PACU PRN PRN IV NAUSEA, MRX1; Start 09/24/19 at 18:00; Stop 09/25/19 at 17:59; Status DC Morphine Sulfate (Morphine Sulfate) 2 mg PRN Q2HR PRN IV PAIN Last administered on 09/26/19at 07:34; Start 09/24/19 at 18:45 Sodium Chloride 1,000 ml @ 1,000 mls/hr Q1H PRN IV hypotension Last administered on 09/25/19at 13:21; Start 09/25/19 at 07:42; Stop 09/25/19 at 13:41; Status DC Albumin Human 200 ml @ 200 mls/hr 1X PRN PRN IV Hypotension; Start 09/25/19 at 07:45; Stop 09/25/19 at 13:44; Status DC Sodium Chloride 1,000 ml @ 400 mls/hr Q2H30M PRN IV PATENCY; Start 09/25/19 at 07:42; Stop 09/25/19 at 19:41; Status DC Info (PHARMACY MONITORING -- do not chart) 1 each PRN DAILY PRN MC SEE COMMENTS; Start 09/25/19 at 07:45; Stop 09/29/19 at 13:16; Status DC Info (PHARMACY MONITORING -- do not chart) 1 each PRN DAILY PRN MC SEE COMMENTS; Start 09/25/19 at 07:45; Status UNV Cefazolin Sodium 1 gm/Sodium Chloride 500 ml @ 500 mls/hr 1X ONCE IRR Last administered on 09/25/19at 15:07; Start 09/25/19 at 09:00; Stop 09/25/19 at 09:59; Status DC Heparin Sodium (Porcine) (Heparin Sodium) 2,000 unit 1X ONCE INT CAT ; Start 09/25/19 at 09:30; Stop 09/25/19 at 09:31; Status DC Vancomycin HCl 500 mg/Sodium Chloride 100 ml @ 100 mls/hr QMWF IV Last administered on 09/25/19at 15:39; Start 09/25/19 at 16:00; Stop 09/27/19 at 15:40; Status DC Heparin Sodium (Porcine) (Heparin Sodium) 10,000 unit STK-MED ONCE .ROUTE ; Start 09/25/19 at 09:24; Stop 09/25/19 at 14:20; Status DC Ringer's Solution 1,000 ml @ 30 mls/hr Q24H IV ; Start 09/26/19 at 07:00; Stop 09/26/19 at 18:59; Status Cancel Lidocaine HCl (Lidocaine 1% 20ml Vial) 20 ml STK-MED ONCE .ROUTE ; Start 09/25/19 at 15:05; Stop 09/25/19 at 15:05; Status DC Lidocaine HCl (Lidocaine 1% 20ml Vial) 20 ml STK-MED ONCE INJ Last administered on 09/25/19at 14:05; Start 09/25/19 at 14:05; Stop 09/25/19 at 15:06; Status DC Sodium Polystyrene Sulfonate (Kayexalate) 15 gm 1X ONCE PO Last administered on 09/26/19at 06:10; Start 09/26/19 at 06:00; Stop 09/26/19 at 06:01; Status DC Fentanyl Citrate (Fentanyl 2ml Vial) 50 mcg PRN Q5MIN PRN IVP MODERATE TO SEVERE PAIN; Start 09/26/19 at 06:45; Stop 09/26/19 at 15:00; Status DC Morphine Sulfate (Morphine Sulfate) 1 mg PRN Q10MIN PRN IVP SEVERE PAIN 7-10; Start 09/26/19 at 06:45; Stop 09/26/19 at 15:00; Status DC Ringer's Solution 1,000 ml @ 30 mls/hr Q24H IV ; Start 09/26/19 at 07:00; Stop 09/27/19 at 06:59; Status DC Hydromorphone HCl (Dilaudid) 0.5 mg PRN Q10MIN PRN IVP SEV PAIN, Second choice; Start 09/26/19 at 06:45; Stop 09/27/19 at 06:44; Status DC Prochlorperazine Edisylate (Compazine) 5 mg PACU PRN PRN IVP NAUSEA, MRX1; Start 09/26/19 at 06:45; Stop 09/26/19 at 15:00; Status DC Sodium Chloride 1,000 ml @ 1,000 mls/hr Q1H PRN IV hypotension; Start 09/26/19 at 08:56; Stop 09/26/19 at 14:55; Status DC Albumin Human 200 ml @ 200 mls/hr 1X PRN PRN IV Hypotension; Start 09/26/19 at 09:00; Stop 09/26/19 at 14:59; Status DC Sodium Chloride 1,000 ml @ 400 mls/hr Q2H30M PRN IV PATENCY; Start 09/26/19 at 08:56; Stop 09/26/19 at 20:55; Status DC Info (PHARMACY MONITORING -- do not chart) 1 each PRN DAILY PRN MC SEE COMMENTS; Start 09/26/19 at 09:00; Status UNV Info (PHARMACY MONITORING -- do not chart) 1 each PRN DAILY PRN MC SEE COMMENTS; Start 09/26/19 at 09:00; Status Cancel Propofol (Diprivan) 200 mg STK-MED ONCE IV ; Start 09/26/19 at 12:10; Stop 09/26/19 at 12:11; Status DC Lidocaine HCl (Lidocaine Pf 2% Vial) 5 ml STK-MED ONCE .ROUTE ; Start 09/26/19 at 12:10; Stop 09/26/19 at 12:11; Status DC Propofol (Diprivan) 200 mg STK-MED ONCE IV ; Start 09/26/19 at 12:10; Stop 09/26/19 at 12:11; Status DC Lidocaine/ Epinephrine (LIDOCAINE 1%-EPI 1:100,000 Multi-Dose) 20 ml STK-MED ONCE .ROUTE ; Start 09/26/19 at 12:55; Stop 09/26/19 at 12:56; Status DC Lidocaine/ Epinephrine (LIDOCAINE 1%-EPI 1:100,000 Multi-Dose) 20 ml 1X ONCE INJ Last administered on 09/26/19at 14:00; Start 09/26/19 at 14:00; Stop 09/26/19 at 14:01; Status DC Morphine Sulfate (Morphine Sulfate) 2 mg PRN Q2HR PRN IM PAIN Last administered on 09/30/19at 05:17; Start 09/26/19 at 20:45 Haloperidol Lactate (Haldol Inj) 5 mg PRN Q8HRS PRN IM AGITATION Last administered on 09/29/19at 23:33; Start 09/26/19 at 22:45 Sodium Chloride 1,000 ml @ 1,000 mls/hr Q1H PRN IV hypotension; Start 09/27/19 at 09:28; Stop 09/27/19 at 15:27; Status DC Albumin Human 200 ml @ 200 mls/hr 1X PRN PRN IV Hypotension; Start 09/27/19 at 09:30; Stop 09/27/19 at 15:29; Status DC Diphenhydramine HCl (Benadryl) 25 mg 1X PRN PRN IV ITCHING; Start 09/27/19 at 09:30; Stop 09/28/19 at 09:29; Status DC Diphenhydramine HCl (Benadryl) 25 mg 1X PRN PRN IV ITCHING; Start 09/27/19 at 09:30; Stop 09/28/19 at 09:29; Status DC Sodium Chloride 1,000 ml @ 400 mls/hr Q2H30M PRN IV PATENCY; Start 09/27/19 at 09:28; Stop 09/27/19 at 21:27; Status DC Info (PHARMACY MONITORING -- do not chart) 1 each PRN DAILY PRN MC SEE COMMENTS; Start 09/27/19 at 09:30 Sodium Chloride 1,000 ml @ 125 mls/hr 1X ONCE IV ; Start 09/29/19 at 07:45; Stop 09/29/19 at 07:46; Status DC Ondansetron HCl (Zofran) 4 mg PRN Q8HRS PRN IVP NAUSEA/VOMITING; Start 09/29/19 at 07:45; Stop 09/29/19 at 07:46; Status DC Morphine Sulfate (Morphine Sulfate) 4 mg PRN Q2HR PRN IV PAIN; Start 09/29/19 at 07:45; Stop 09/29/19 at 07:46; Status DC Ringer's Solution 1,000 ml @ 30 mls/hr Q24H IV ; Start 09/30/19 at 12:00; Stop 09/30/19 at 21:00 Lidocaine HCl (Xylocaine-Mpf 1% 2ml Vial) 2 ml PRN 1X PRN ID PRIOR TO IV START; Start 09/30/19 at 11:45; Stop 09/30/19 at 21:00 Sodium Chloride 1,000 ml @ 1,000 mls/hr Q1H PRN IV hypotension; Start 09/30/19 at 12:00; Stop 09/30/19 at 19:00 Albumin Human 200 ml @ 200 mls/hr 1X PRN PRN IV Hypotension; Start 09/30/19 at 12:00; Stop 09/30/19 at 17:59 Sodium Chloride 1,000 ml @ 400 mls/hr Q2H30M PRN IV PATENCY; Start 09/30/19 at 12:00; Stop 09/30/19 at 19:00 Info (PHARMACY MONITORING -- do not chart) 1 each PRN DAILY PRN MC SEE COMMENTS; Start 09/30/19 at 12:00; Status UNV Info (PHARMACY MONITORING -- do not chart) 1 each PRN DAILY PRN MC SEE COMMENTS; Start 09/30/19 at 12:00; Status UNV Propofol 50 ml @ As Directed STK-MED ONCE IV ; Start 09/30/19 at 13:12; Stop 09/30/19 at 13:18; Status DC Midazolam HCl (Versed) 2 mg STK-MED ONCE .ROUTE ; Start 09/30/19 at 13:12; Stop 09/30/19 at 13:18; Status DC Fentanyl Citrate (Fentanyl 2ml Vial) 100 mcg STK-MED ONCE .ROUTE ; Start 09/30/19 at 13:12; Stop 09/30/19 at 13:18; Status DC Ketamine HCl (Ketamine) 50 mg STK-MED ONCE .ROUTE ; Start 09/30/19 at 13:12; Stop 09/30/19 at 13:18; Status DC Alteplase, Recombinant (Cathflo) 8 mg 1X ONCE IV Last administered on 09/30/19at 14:05; Start 09/30/19 at 13:30; Stop 09/30/19 at 13:31; Status DC Lidocaine HCl (Buffered Lidocaine 1%) 3 ml STK-MED ONCE .ROUTE ; Start 09/30/19 at 13:19; Stop 09/30/19 at 13:19; Status DC Iodixanol (Visipaque 320) 100 ml STK-MED ONCE .ROUTE ; Start 09/30/19 at 13:19; Stop 09/30/19 at 13:19; Status DC Heparin Sodium/ Sodium Chloride 500 ml @ As Directed STK-MED ONCE .ROUTE ; Start 09/30/19 at 13:19; Stop 09/30/19 at 13:19; Status DC Iodixanol (Visipaque 320) 50 ml STK-MED ONCE .ROUTE ; Start 09/30/19 at 13:19; Stop 09/30/19 at 13:20; Status DC Heparin Sodium/ Sodium Chloride (HEPARIN for ARTERIAL LINE FLUSH) 1,000 unit 1X ONCE IART Last administered on 09/30/19at 13:45; Start 09/30/19 at 13:45; Stop 09/30/19 at 13:59; Status DC Lidocaine HCl (Buffered Lidocaine 1%) 3 ml 1X ONCE IJ ; Start 09/30/19 at 13:45; Stop 09/30/19 at 13:59; Status DC Iodixanol (Visipaque 320) 100 ml 1X ONCE IART ; Start 09/30/19 at 13:45; Stop 09/30/19 at 13:59; Status DC Heparin Sodium (Porcine) (Heparin Sodium) 10,000 unit STK-MED ONCE .ROUTE ; Start 09/30/19 at 13:48; Stop 09/30/19 at 13:49; Status DC Dextrose (Dextrose 50%-Water Syringe) 25 gm STK-MED ONCE IV ; Start 09/30/19 at 13:56; Stop 09/30/19 at 13:56; Status DC Info (CONTRAST GIVEN -- Rx MONITORING) 1 each PRN DAILY PRN MC SEE COMMENTS; Start 09/30/19 at 14:15; Stop 10/02/19 at 14:14 Albumin Human 500 ml @ 500 mls/hr 1X ONCE IV ; Start 09/30/19 at 14:15; Stop 09/30/19 at 15:14 Heparin Sodium (Porcine) (Heparin Sodium) 4,000 unit 1X ONCE IV ; Start 09/30/19 at 14:30; Stop 09/30/19 at 14:31; Status DC Active Scripts Active Percocet 10-325 Mg Tablet (Oxycodone/Acetaminophen) 1 Each Tablet 1 Tab PO PRN Q4HRS PRN Guaifenesin Dm Syrup (Guaifenesin/Dextromethorphan) 5 Ml Syrup 10 Ml PO PRN Q6HRS PRN 10 Days Carvedilol (Carvedilol) 6.25 Mg Tablet 12.5 Mg PO BIDWMEALS Hydralazine Hcl 25 Mg Tablet 25 Mg PO TID Humalog (Insulin Lispro) 100 Unit/1 Ml Insuln.pen 0 Units SQ TIDWMEALS 28 Days Culturelle (Lactobacillus Rhamnosus Gg) 1 Each Cap.sprink 1 Cap PO BID 30 Days Ondansetron Odt (Ondansetron) 4 Mg Tab.rapdis 4 Mg PO PRN Q6HRS PRN 28 Days Clopidogrel (Clopidogrel Bisulfate) 75 Mg Tablet 75 Mg PO DAILYWBKFT 30 Days Pinky-Shreya Tablet (Folic Acid/Vitamin B Comp W-C) 0.8 Mg Tablet 1 Tab PO DAILY Tylenol (Acetaminophen) 325 Mg Capsule 650 Mg PO Q6-8HRS PRN Zantac (Ranitidine Hcl) 300 Mg Tablet 1 Tab PO QHS Compazine (Prochlorperazine Maleate) 5 Mg Tablet 5 Mg PO PRN TID PRN 10 Days [Pantoprazole] 40 MG Tablet.dr 40 Mg PO DAILYAC 30 Days Reported Bupropion Xl (Bupropion Hcl) 300 Mg Tab.er.24h 1 Tab PO DAILYWBKFT Zoloft (Sertraline Hcl) 50 Mg Tablet 50 Mg PO DAILY Lisinopril 20 Mg Tablet 20 Mg PO DAILY Creon Dr 6,000 Units Capsule (Lipase/Protease/Amylase) 1 Each Capsule.dr 1 Tab PO TID Proair Hfa (Albuterol Sulfate) 8.5 Gm Hfa.aer.ad 2 Puff INH BID PRN Levothyroxine Sodium 50 Mcg Tablet 1 Tab PO DAILY Clonidine Tts-2 (Clonidine) 1 Each Patch.tdwk 1 Patch TD WEEKLY Amlodipine Besylate 5 Mg Tablet 10 Mg PO DAILY Atorvastatin Calcium 40 Mg Tablet 40 Mg PO HS Latanoprost 2.5 Ml Drops 1 Drop EACHEYE HS Vitals/I & O Vital Sign - Last 24 Hours 09/29/19 09/29/19 09/29/19 09/29/19 15:00 15:37 15:58 16:28 Temp 98.7 98.7 Pulse 65 Resp 18 B/P (MAP) 130/42 (71) Pulse Ox 98 O2 Delivery Nasal Cannula Room Air Room Air Room Air O2 Flow Rate 2.0 09/29/19 09/29/19 09/29/19 09/29/19 19:00 19:33 20:00 20:33 Temp 97.4 97.4 Pulse 67 Resp 18 20 20 B/P (MAP) 128/42 (70) Pulse Ox 97 98 98 O2 Delivery Room Air Room Air Nasal Cannula Nasal Cannula O2 Flow Rate 2.0 2.0 09/29/19 09/29/19 09/29/19 09/29/19 21:01 22:24 22:53 22:54 Temp 97.7 97.7 Pulse 67 72 Resp 20 18 20 B/P (MAP) 128/42 142/44 (76) Pulse Ox 98 98 98 O2 Delivery Nasal Cannula Room Air Nasal Cannula O2 Flow Rate 2.0 2.0 09/30/19 09/30/19 09/30/19 09/30/19 03:00 05:17 05:47 07:00 Temp 98.6 98.2 98.6 98.2 Pulse 72 78 Resp 20 20 20 18 B/P (MAP) 151/61 (91) 179/48 (91) Pulse Ox 99 99 99 97 O2 Delivery Room Air Nasal Cannula Nasal Cannula Room Air O2 Flow Rate 2.0 2.0 09/30/19 09/30/19 09/30/19 09/30/19 08:00 08:05 08:06 08:06 Pulse 78 78 78 B/P (MAP) 179/48 179/48 179/48 O2 Delivery Room Air 09/30/19 09/30/19 09/30/19 09/30/19 08:07 08:14 10:27 11:00 Pulse 78 Resp 16 16 B/P (MAP) 179/48 O2 Delivery Room Air Room Air Intake and Output 09/29/19 09/29/19 09/30/19 15:00 23:00 07:00 Intake Total 500 ml 0 ml Balance 500 ml 0 ml Justicifation of Admission Dx: Justifications for Admission: Justification of Admission Dx: Yes SELIN NICHOLS RETURNED ITEM CLERK Sep 30, 2019 14:56
--- NOTE | 2019-09-30 15:14 | NUR ---
Wound care Pt off unit at time of [facility] arrival. Will FU tomorrow
[2019-09-30] MEDS: DEXTROSE 50% 25 GM / 50ML DISP.SYRIN. IV PRN (15:45)
[2019-09-30 15:55] VITALS: BP 102/70
--- NOTE | 2019-09-30 16:12 | RAD ---
09/30/2019 Procedure: 1. Left upper extremity AV fistulogram 2. Pharmacologic and mechanical thrombolysis, left upper extremity AV graft 3.Angioplasty of outflow vein stenosis. Clinical Indication: ESRD, Clotted Graft The procedure was explained in its entirety to the patient or the patients designated shipping services sales representative by a member of the treatment team, including a discussion of the risks, benefits and commonly accepted alternatives to the procedure, as well as the expected consequences of no therapy whatsoever. Discussion of the risks included, but was not limited to, those that are most frequent and those that are rare but possibly severe or life-threatening, as well as the possibility of unforeseen complications. All elements of maximal sterile barrier technique including the use of a cap, mask, sterile gown, sterile gloves, large sterile sheet, appropriate hand hygiene, and 2% chlorhexidine for cutaneous antisepsis (or acceptable alternative antiseptic per current guidelines) were followed for this procedure. 1% lidocaine was administered for local anesthesia. Ultrasound evaluation demonstrates the graft to be completely thrombosed. Direct ultrasound guidance, micropuncture technique was used to access the graft directed towards the venous outflow. Reference ultrasound images were saved the medical record. Subsequently, access was also obtained directed towards arterial inflow, an identical fashion. 6 mg of TPA was instilled throughout the graft. After a 20 minute intubation, 6 Kiswahili sheaths were placed. Balloon maceration was performed throughout the graft redemonstrating persistent mild narrowing of the venous anastomotic stent graft, and a moderate venous stenosis just beyond the stent graft. These were treated with balloon angioplasty using a combination of 6 mm and 7 mm balloons. The arterial plug was pulled. Flow was reestablished, and the graft was essentially free of thrombus . Sedation provided via the anesthesia department. Total fluoroscopy time: 8.1 minutes Dose area product: 18 Gycm2 Impression: 1. Successful pharmacologic and mechanical thrombolysis, left upper extremity AV graft 2. Balloon angioplasty of outflow vein stenosis as described
[2019-09-30] MEDS ORDERED: HEPARIN PF 500 UNIT/5 ML DISP.SYRIN. IVP ONE (17:00)
--- NOTE | 2019-09-30 17:35 | NUR ---
Discharge instructions and belongings reviewed with patient verbalized understanding. Report called to [facility] @[phone]. Patient escorted out via transportation Express.
--- NOTE | 2019-09-30 21:53 | PDOC ---
SUBJECTIVE ROS no complaints OBJECTIVE Vital Signs Vital Signs Date Time Temp Pulse Resp B/P (MAP) Pulse Ox O2 Delivery O2 Flow Rate FiO2 09/30/19 15:55 98.0 64 16 102/70 95 Room Air 98.0 Nasal Cannula 09/30/19 15:40 3 I & 0 Intake and Output 09/30/19 07:00 Intake Total 500 ml Balance 500 ml Intake Oral 500 ml # Voids 1 # Bowel Movements 1 PHYSICAL EXAM Physical Exam General: NAD HEENT: PERRLA, OM moist Neck Supple Lungs: dec BS , Non labored Heart: S1S2, RRR, n Abdomen: Normal bowel sounds, Soft, No tenderness, No Calvillo Extremities: Bila BKA , s/p amputation Rt middle finger , AVF + Skin: No rash Neuro- Grossly Normal DIAGNOSIS/ASSESSMENT Assessment & Plan ESRD - On HD MWF Seen on HD, tolerating well, continue as ordered, Dw Emile Had Permacath placed last week Once Declot done -permcath needs to be removed ACcess- AV access clotted s/p Successful pharmacologic and mechanical thrombolysis, left upper extremity AV graft and Balloon angioplasty of outflow vein stenosis on 09/29 HyperKalemia- K 7.4 at presentation - Chronic Non compliance with HD and diet 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 follow-up with vascular in 2 weeks for suture removal AVG placed in September 2018 at [facility] - Left upper arm brachial artery to brachial vein arterial to venous graft placement using PTFE graft. 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 Can be dced from renal standpoin Declot of AV access- Discussed with PRINTING [employer]OP SUPERVISOR at the OP Unit DC per Primary COMMENT/RELEVANT DATA Meds Current Medications Medications (Trade) Dose Ordered Sig/Clarence Start Time Stop Time Status Last Admin Dose Admin Acetaminophen/ Hydrocodone Bitart (Lortab 5/325) 1 tab PRN Q6HRS PRN 09/23/19 12:45 09/24/19 10:14 DC 09/24/19 08:32 1 TAB Albumin Human 500 ml @ 500 mls/hr 1X ONCE 09/30/19 14:15 09/30/19 15:14 DC 09/30/19 14:15 500 MLS/HR Albuterol Sulfate (Ventolin Neb Soln) 2.5 mg PRN BID PRN 09/23/19 12:45 09/30/19 17:48 DC Alteplase, Recombinant (Cathflo) 8 mg 1X ONCE 09/30/19 13:30 09/30/19 13:31 DC 09/30/19 14:05 6 MG Amlodipine Besylate (Norvasc) 10 mg DAILY 09/23/19 13:00 09/30/19 17:48 DC 09/30/19 08:07 10 MG Amylase/Lipase/ Protease (Zenpep 5,000) 1 cap TIDWMEALS 09/23/19 17:00 09/30/19 17:48 DC 09/30/19 08:05 1 CAP Atorvastatin Calcium (Lipitor) 40 mg HS 09/23/19 21:00 09/30/19 17:48 DC 09/29/19 19:32 40 MG Bupropion HCl (Wellbutrin Xl) 300 mg DAILYWBKFT 09/24/19 08:00 09/30/19 17:48 DC 09/30/19 08:04 300 MG Calcium Gluconate (Calcium Gluconate) 1,000 mg 1X ONCE 09/23/19 00:30 09/23/19 00:31 DC 09/23/19 01:00 1,000 MG Carvedilol (Coreg) 12.5 mg BIDWMEALS 09/23/19 17:00 09/30/19 17:48 DC 09/30/19 08:06 12.5 MG Cefazolin Sodium 1 gm/Sodium Chloride 500 ml @ 500 mls/hr 1X ONCE 09/25/19 09:00 09/25/19 09:59 DC 09/25/19 15:07 Clonidine HCl (Catapres Tts-2) 1 patch WEEKLY 09/23/19 13:00 09/30/19 17:48 DC 09/30/19 08:05 1 PATCH Clopidogrel Bisulfate (Plavix) 75 mg DAILYWBKFT 09/23/19 13:00 09/30/19 17:48 DC 09/30/19 08:06 75 MG Dextrose (Dextrose 50%-Water Syringe) 25 gm 1X ONCE 09/30/19 14:00 09/30/19 15:04 DC 09/30/19 14:00 12.5 GM Diphenhydramine HCl (Benadryl) 25 mg 1X PRN PRN 09/27/19 09:30 09/28/19 09:29 DC Famotidine (Pepcid) 40 mg QODAY 09/24/19 09:00 09/30/19 17:48 DC 09/30/19 08:06 40 MG Fentanyl Citrate (Fentanyl 2ml Vial) 100 mcg STK-MED ONCE 09/30/19 13:12 09/30/19 13:18 DC Glucagon (Glucagen) 1 mg PRN Q15MIN PRN 09/24/19 06:45 09/30/19 17:48 DC 09/24/19 11:25 1 MG Glucose (Insta-Glucose) 15 gm PRN Q15MIN PRN 09/24/19 06:45 09/30/19 17:48 DC Guaifenesin (Robitussin Dm) 10 ml PRN Q6HRS PRN 09/23/19 12:45 09/30/19 17:48 DC Haloperidol Lactate (Haldol Inj) 5 mg PRN Q8HRS PRN 09/26/19 22:45 09/30/19 17:48 DC 09/29/19 23:33 5 MG Heparin Sodium (Porcine) (Hep Lock Adult) 500 unit 1X ONCE 09/30/19 17:00 09/30/19 17:01 DC Heparin Sodium (Porcine) (Heparin Sodium) 4,000 unit 1X ONCE 09/30/19 14:30 09/30/19 14:31 DC 09/30/19 14:30 4,000 UNIT Heparin Sodium/ Sodium Chloride 500 ml @ As Directed STK-MED ONCE 09/30/19 14:46 09/30/19 14:47 DC Heparin Sodium/ Sodium Chloride (HEPARIN for ARTERIAL LINE FLUSH) 1,000 unit 1X ONCE 09/30/19 13:45 09/30/19 13:59 DC 09/30/19 13:45 1,000 UNIT Hydralazine HCl (Apresoline) 25 mg TID 09/23/19 14:00 09/30/19 17:48 DC 09/30/19 08:06 25 MG Hydromorphone HCl (Dilaudid) 0.5 mg PRN Q10MIN PRN 09/26/19 06:45 09/27/19 06:44 DC Info (CONTRAST GIVEN -- Rx MONITORING) 1 each PRN DAILY PRN 09/30/19 14:15 09/30/19 17:48 DC Info (PHARMACY MONITORING -- do not chart) 1 each PRN DAILY PRN 09/30/19 12:00 UNV Insulin Human Regular (HumuLIN R VIAL) 10 unit 1X ONCE 09/23/19 00:30 09/23/19 00:31 DC 09/23/19 00:59 10 UNIT Iodixanol (Visipaque 320) 100 ml 1X ONCE 09/30/19 13:45 09/30/19 13:59 DC 09/30/19 13:45 39 ML Ketamine HCl (Ketamine) 50 mg STK-MED ONCE 09/30/19 13:12 09/30/19 13:18 DC Lactobacillus Rhamnosus (Culturelle) 1 cap BID 09/23/19 21:00 09/30/19 17:48 DC 09/30/19 08:05 1 CAP Latanoprost (Xalatan) 1 drop HS 09/23/19 21:00 09/30/19 17:48 DC 09/29/19 21:01 1 DROP Levothyroxine Sodium (Synthroid) 50 mcg DAILY06 09/24/19 06:00 09/30/19 17:48 DC 09/29/19 05:52 50 MCG Lidocaine HCl (Buffered Lidocaine 1%) 3 ml 1X ONCE 09/30/19 13:45 09/30/19 13:59 DC 09/30/19 13:45 1 ML Lidocaine HCl (Lidocaine 1% 20ml Vial) 20 ml STK-MED ONCE 09/25/19 14:05 09/25/19 15:06 DC 09/25/19 14:05 7 ML Lidocaine HCl (Lidocaine Pf 2% Vial) 5 ml STK-MED ONCE 09/26/19 12:10 09/26/19 12:11 DC Lidocaine HCl (Xylocaine-Mpf 1% 2ml Vial) 2 ml PRN 1X PRN 09/30/19 11:45 09/30/19 17:48 DC Lidocaine/ Epinephrine (LIDOCAINE 1%-EPI 1:100,000 Multi-Dose) 20 ml 1X ONCE 09/26/19 14:00 09/26/19 14:01 DC 09/26/19 14:00 8 ML Lisinopril (Prinivil) 20 mg DAILY 09/23/19 13:00 09/30/19 17:48 DC 09/30/19 08:05 20 MG Midazolam HCl (Versed) 2 mg STK-MED ONCE 09/30/19 13:12 09/30/19 13:18 DC Morphine Sulfate (Morphine Sulfate) 4 mg PRN Q2HR PRN 09/29/19 07:45 09/29/19 07:46 DC Nitroglycerin (Nitroglycerin) 200 mcg 1X ONCE 09/24/19 16:45 09/24/19 16:46 DC 09/24/19 17:08 200 MCG Ondansetron HCl (Zofran Odt) 4 mg PRN Q6HRS PRN 09/23/19 12:45 09/30/19 17:48 DC Ondansetron HCl (Zofran) 4 mg PRN Q8HRS PRN 09/29/19 07:45 09/29/19 07:46 DC Oxycodone/ Acetaminophen (Percocet 10/325) 1 tab PRN Q4HRS PRN 09/24/19 10:15 09/30/19 17:48 DC 09/30/19 08:14 1 TAB Pantoprazole Sodium (Protonix) 40 mg DAILYAC 09/23/19 16:30 09/30/19 17:48 DC 09/29/19 05:52 40 MG Piperacillin Sod/ Tazobactam Sod (Zosyn Per Pharmacy) 1 each PRN DAILY PRN 09/24/19 09:00 09/30/19 11:49 DC Piperacillin Sod/ Tazobactam Sod 2.25 gm/Sodium Chloride 50 ml @ 100 mls/hr Q8HRS 09/24/19 10:00 09/27/19 15:40 DC 09/26/19 19:32 100 MLS/HR Prochlorperazine Edisylate (Compazine) 5 mg PACU PRN PRN 09/26/19 06:45 09/26/19 15:00 DC Prochlorperazine Maleate (Compazine) 5 mg PRN TID PRN 09/23/19 12:45 09/30/19 17:48 DC Propofol 50 ml @ As Directed STK-MED ONCE 09/30/19 13:12 09/30/19 13:18 DC Propofol (Diprivan) 200 mg STK-MED ONCE 09/26/19 12:10 09/26/19 12:11 DC Ringer's Solution 1,000 ml @ 30 mls/hr Q24H 09/30/19 12:00 09/30/19 17:48 DC Sertraline HCl (Zoloft) 50 mg DAILY 09/23/19 13:00 09/30/19 17:48 DC 09/30/19 08:05 50 MG Sodium Polystyrene Sulfonate (Kayexalate) 15 gm 1X ONCE 09/26/19 06:00 09/26/19 06:01 DC 09/26/19 06:10 15 GM Sodium Chloride 1,000 ml @ 400 mls/hr Q2H30M PRN 09/30/19 12:00 09/30/19 17:48 DC Vancomycin HCl (Vanco Per Pharmacy) 1 each PRN DAILY PRN 09/24/19 09:00 09/27/19 15:40 DC 09/27/19 12:54 1 EACH Vancomycin HCl (Vancomycin Random Level) 1 each 1X ONCE 09/25/19 06:00 09/25/19 06:01 DC 09/25/19 06:00 1 EACH Vancomycin HCl 1.25 gm/Sodium Chloride 250 ml @ 166.667 mls/hr 1X ONCE 09/22/19 23:15 09/23/19 00:44 DC 09/23/19 00:02 166.667 MLS/HR Vancomycin HCl 500 mg/Sodium Chloride 100 ml @ 100 mls/hr QMWF 09/25/19 16:00 09/27/19 15:40 DC 09/25/19 15:39 100 MLS/HR Vitamin B Complex/ Vitamin C (Pinky-Shreya) 1 tab DAILY 09/23/19 13:00 09/30/19 17:48 DC 09/30/19 08:06 1 TAB Lab Laboratory Tests Test 09/30/19 07:50 09/30/19 13:54 09/30/19 15:46 09/30/19 16:01 Sodium Level 135 mmol/L (136-145) Potassium Level 4.6 mmol/L (3.5-5.1) Chloride Level 96 mmol/L (98-107) Carbon Dioxide Level 28 mmol/L (21-32) Anion Gap 11 (6-14) Blood Urea Nitrogen 33 mg/dL (7-20) Creatinine 5.7 mg/dL (0.6-1.0) Estimated GFR (Cockcroft-Gault) 9.3 Glucose Level 62 mg/dL (70-99) Calcium Level 8.1 mg/dL (8.5-10.1) Glucose (Fingerstick) 47 mg/dL (70-99) 59 mg/dL (70-99) 98 mg/dL (70-99) Results All relevant outside records, renal labs, imaging studies, telemetry/EKG's were reviewed. Justicifation of Admission Dx: Justifications for Admission: Justification of Admission Dx: Yes DOMINIQUE TSE MD Sep 30, 2019 21:53
--- NOTE | 2019-10-01 14:55 | PDOC3 ---
Discharge Summary Visit Information Date of Admission: Sep 23, 2019 Date of Discharge: Sep 30, 2019 Admitting Diagnosis: Cellulitis and abscess of gangrenous 3rd finger Final Diagnosis Problems Medical Problems: (1) Osteomyelitis Status: Acute (2) Osteomyelitis of finger Status: Acute Brief Hospital Course Allergies Allergies Coded Allergies Type Severity Reaction Last Updated Verified No Known Drug Allergies 02/27/19 No Vital Signs Vital Signs Date Time Temp Pulse Resp B/P (MAP) Pulse Ox O2 Delivery O2 Flow Rate FiO2 09/30/19 15:55 98.0 64 16 102/70 95 Room Air 98.0 Nasal Cannula 09/30/19 15:40 3 Lab Results Laboratory Tests Test 09/29/19 20:16 09/30/19 07:50 09/30/19 13:54 09/30/19 15:46 Glucose (Fingerstick) 104 mg/dL (70-99) 47 mg/dL (70-99) 59 mg/dL (70-99) Sodium Level 135 mmol/L (136-145) Potassium Level 4.6 mmol/L (3.5-5.1) Chloride Level 96 mmol/L (98-107) Carbon Dioxide Level 28 mmol/L (21-32) Anion Gap 11 (6-14) Blood Urea Nitrogen 33 mg/dL (7-20) Creatinine 5.7 mg/dL (0.6-1.0) Estimated GFR (Cockcroft-Gault) 9.3 Glucose Level 62 mg/dL (70-99) Calcium Level 8.1 mg/dL (8.5-10.1) Test 09/30/19 16:01 Glucose (Fingerstick) 98 mg/dL (70-99) Laboratory Tests Test 09/30/19 15:46 09/30/19 16:01 Glucose (Fingerstick) 59 mg/dL (70-99) 98 mg/dL (70-99) Brief Hospital Course Ms. Smith, is a 57 year old F w/ PMHx ESRD on HD M/W/F, hypertension, diabetes mellitus, bilateral below knee amputation, chronic pain and neuropathy who presents via EMS because of confusion and pain in right distal middle finger. K 7.4, BUN 92, and glucose 19. Admitted for further care with ID, vascular surgery, IR consulted. 09/23: LIJ CVC placed with IR. 09/24: Right 3rd finger partial amputation with closure 09/25: Exchange CVC LIJ with tunneled HD catheter due to thrombosed AV graft. 09/26: Hypoglycemia 09/27: Unable to d/c due to lack of staff at her [facility] facility 09/28: will try to DC, coordinate care, some pain, her standard odd behavior Seen on dialysis. Afebrile. She is having some pain in her middle finger, asking for more pain medications. She is asking to discharge to [facility] and care because her things are there. To IR:s/p Successful pharmacologic and mechanical thrombolysis, left upper extremity with AV graft and Balloon angioplasty of outflow vein stenosis on 09/29 Had Permacath placed last week. Per Nephrology, once Declot done -permcath needs to be removed. Consults: Vascular surgery, ID, nephrology Problem list: Postop - Partial amputation of the right third finger done in a closed fashion a t the level of the middle phalange on 09/25/2019 Acute encephalopathy secondary to metabolic etiology with hypoglycemia Right middle finger pain - dry gangrene, active infection evident from hyperemia on arteriogram Hyperkalemia - K 7.4 ESRD - MWF [facility] patient. Fistula functioning again now. She is very intermittently compliant. Acute on chronic diastolic CHF - with elevated BNP and CXR findings concerning Accelerated HTN: labile Anasarca Noncompliance: missed dialysis, no transport. Suspect missed meds as well. Hx of severe LE PAD - S/P bilateral BKA. more recent to left leg, incision intact Debility HX NONCOMPLIANCE Anxiety Chronic back pain Chronic anemia Elevated liver function tests Depression sec to med illness History of diabetes mellitus type 2 History of hypothyroidism Chronic pain syndrome History of bilateral BKA Greater than 30 minutes spent on d/c home with home health Discharge Information Condition at Discharge: Improved Follow Up: Weeks (1) Disposition/Orders: D/C to Home w/ HH Scheduled Amlodipine Besylate (Amlodipine Besylate) 5 Mg Tablet, 10 MG PO DAILY for blood pressure, (Reported) Entered as Reported by: JENNIE SMITH on 12/05/17809 Last Action: Continued on 09/23/19 1233 by FELI SHAH MD Atorvastatin Calcium (Atorvastatin Calcium) 40 Mg Tablet, 40 MG PO HS for cholesterol, (Reported) Entered as Reported by: JENNIE SMITH on 9/11/18 0810 Last Action: Continued on 09/23/19 1233 by FELI SHAH MD Bupropion Hcl (Bupropion Xl) 300 Mg Tab.er.24h, 1 TAB PO DAILYWBKFT for antidepressant, #30 Ref 2 (Reported) Entered as Reported by: Marilyn Garibay on 09/23/19 0420 Last Action: Converted on 09/23/19 1233 by FELI SHAH MD Carvedilol (Carvedilol ) 6.25 Mg Tablet, 12.5 MG PO BIDWMEALS for htn, #60 Prescribed by: PRABHAKAR MOSQUERA on 01/29/19 1113 Last Action: Continued on 09/23/19 123 by FELI SHAH MD Clonidine (Clonidine Tts-2 ) 1 Each Patch.tdwk, 1 PATCH TD WEEKLY for blood pressure, (Reported) Entered as Reported by: VIKI PANG on 03/22/18 1727 Last Action: Continued on 09/23/191232 by FELI SHAH MD Clopidogrel Bisulfate (Clopidogrel) 75 Mg Tablet, 75 MG PO DAILYWBKFT for pvd for 30 Days, #30 Prescribed by: SANGEETHA MUELLER MD on 12/26/18 1247 Last Action: Continued on 09/23/191232 by FELI SHAH MD Folic Acid/Vitamin B Comp W-C (Pinky-Shreya Tablet) 0.8 Mg Tablet, 1 TAB PO DAILY for esrd, #30 Prescribed by: PRABHAKAR MOSQUERA on 12/10/18 1041 Last Action: Continued on 09/23/19 123 by FELI SHAH MD Hydralazine Hcl (Hydralazine Hcl) 25 Mg Tablet, 25 MG PO TID for htn, #10 Prescribed by: PRABHAKAR MOSQUERA on 01/29/19 1113 Last Action: Continued on 09/23/191232 by FELI SHAH MD Insulin Lispro (Humalog) 100 Unit/1 Ml Insuln.pen, 0 UNITS SQ TIDWMEALS for glucose for 28 Days, #3 Prescribed by: SANGEETHA MUELLER MD on 12/26/18 1247 Lactobacillus Rhamnosus Gg (Culturelle) 1 Each Cap.sprink, 1 CAP PO BID for supplement for 30 Days, #60 Prescribed by: SANGEETHA MUELLER MD on 12/26/18 1247 Last Action: Continued on 09/23/19 1233 by FELI SHAH MD Latanoprost (Latanoprost) 2.5 Ml Drops, 1 DROP EACHEYE HS, (Reported) Entered as Reported by: ATTILA HAMMOND on 09/24/17 1649 Last Action: Continued on 09/23/19 1233 by FELI SHAH MD Levothyroxine Sodium (Levothyroxine Sodium) 50 Mcg Tablet, 1 TAB PO DAILY for thyroid, #30 Ref 5 (Reported) Entered as Reported by: VIKI PANG on 03/22/18 1727 Last Action: Continued on 09/23/19 1233 by FELI SHAH MD Lipase/Protease/Amylase (Creon Dr 6,000 Units Capsule) 1 Each Capsule., 1 TAB PO TID for digestion, (Reported) Entered as Reported by: CAROL CHAN on 04/23/18 1236 Last Action: Converted on 09/23/19 1233 by FELI SHAH MD Lisinopril (Lisinopril) 20 Mg Tablet, 20 MG PO DAILY for FOR HYPERTENSION, Ref 0 (Reported) Entered as Reported by: LAUREN REAVES on 05/27/18 0749 Last Action: Continued on 09/23/19 1233 by FELI SHAH MD Ranitidine Hcl (Zantac) 300 Mg Tablet, 1 TAB PO QHS for reflux, #90 Ref 3 Prescribed by: DANIELA ALMAZAN D.O. on 08/29/186 Last Action: Converted on 09/23/19 1233 by FELI SHAH MD Sertraline Hcl (Zoloft) 50 Mg Tablet, 50 MG PO DAILY for ANTI-DEPRESSANT, Ref 0 (Reported) Entered as Reported by: LAUREN REAVES on 05/27/18 0749 Last Action: Continued on 09/23/19 1233 by FELI SHAH MD [Pantoprazole] 40 MG TABLET.DR, 40 MG PO DAILYAC for GERD for 30 Days, #30 Ref 2 Prescribed by: FELI SHAH MD on 03/07/18 1359 Last Action: Converted on 09/23/19 1233 by FELI SHAH MD Scheduled PRN Acetaminophen (Tylenol) 325 Mg Capsule, 650 MG PO Q6-8HRS PRN for PAIN, #20 Prescribed by: KIMBERLY DONOHUE MD on 11/14/18 2112 Albuterol Sulfate (Proair Hfa) 8.5 Gm Hfa.aer.ad, 2 PUFF INH BID PRN for SHORTNESS OF BREATH, (Reported) Entered as Reported by: VIKI PANG on 03/22/18 1727 Last Action: Continued on 09/23/19 1233 by FELI SHAH MD Guaifenesin/Dextromethorphan (Guaifenesin Dm Syrup) 5 Ml Syrup, 10 ML PO PRN Q6HRS PRN for COUGH for 10 Days, #120 Prescribed by: SANGEETHA MUELLER MD on 02/12/19 1404 Last Action: Continued on 09/23/19 1233 by FELI SHAH MD Ondansetron (Ondansetron Odt) 4 Mg Tab.rapdis, 4 MG PO PRN Q6HRS PRN for NAUSEA/VOMITING 1ST CHOICE for 28 Days, #30 Prescribed by: SANGEETHA MUELLER MD on 12/26/18 1247 Last Action: Continued on 09/23/19 1233 by FELI SHAH MD Oxycodone/Apap 10-325 (Percocet 10-325 Mg Tablet ) 1 Each Tablet, 1 TAB PO PRN Q4HRS PRN for PAIN , #25 Prescribed by: HARDEEP MUÑOZ on 09/28/19 1025 Prochlorperazine Maleate (Compazine) 5 Mg Tablet, 5 MG PO PRN TID PRN for NAUSEA for 10 Days, #30 Prescribed by: FELI SHAH MD on 08/26/18 1158 Last Action: Continued on 09/23/19 1233 by FELI SHAH MD Discontinued Medications Hydrocodone Bit/Acetaminophen (Hydrocodone-Apap 5-325 ) 1 Tab Tablet, 1 TAB PO PRN Q6HRS PRN for PAIN for 4 Days, #12 Ref 0 Prescribed by: FELI SHAH MD on 08/19/19 1523 Last Action: Continued on 09/23/19 1233 by FELI SHAH MD Justicifation of Admission Dx: Justifications for Admission: Justification of Admission Dx: Yes FELI SHAH MD Oct 01, 2019 14:55
--- NOTE | 2019-10-01 18:06 | PATHOLOGY ---
[facility] Accession Number: [id number] . 01 Material submitted: . finger - RIGHT THIRD FINGER. Modifiers: right, third . 01 Clinical history: . Right third finger necrosis . 02 Diagnosis: Right third finger amputation: - Gangrenous necrosis of distal finger with acute cellulitis and focal acute osteomyelitis. - Proximal amputation margin viable. (JPM/db; 10/01/2019) LBQ 10/01/2019 1546 Local . 02 Electronically signed: . Alberto Rios MD, Pathologist NPI- [id number] . 01 Gross description: . The specimen is received in formalin, labeled "Jenifer Salazar, right third finger" and consists of a partially mummified digit measuring 3.7 x 1.6 x 1.2 cm. The remainder of the epidermal surface is analy davila-brown. The bone margin is jagged in appearance. Gross photographs are taken. ([facility]; 09/26/2019) . Sectioning reveals the mummification grossly extends to the underlying bone which is maroon-red to brown. A full-thickness longitudinal asset protection representative section is submitted in A1 following decalcification. (SDY; 09/30/2019) JFQ/JFQ 09/30/2019 1423 Local . 02 Pathologist provided ICD-10: I96, L03.011, M86.141 . 02 CPT . 338921, 115487 Specimen Comment: A courtesy copy of this report has been sent to [phone], [phone] Specimen Comment: [id number] Specimen Comment: Report sent to / DR SHAH Performed at: [address], [place], [place] [id number] MD Jamie Pinzon MD Phone: [phone] Performed at: 02 [facility] [address] [place], [place] [id number] MD Alberto Rios MD Phone: [phone]
== END 2019-09-30 17:47 | disposition home health service (06) | DRG 252 ==
LOC: ER 20:30 → 4 NORTH 23:03 → OBSVTOIN 09-23 00:52 → 6 SOUTH 09-23 03:14 → 4 NORTH 09-27 18:50
PROVIDERS: ADMIT Internal Medicine; ATTEND Internal Medicine
PROC: 02HV33Z Insertion of Infusion Device into Superior Vena Cava, Percutaneous Approach (ICD-10-PCS; 2019-09-24)
PROC: B518YZA Fluoroscopy of Superior Vena Cava using Other Contrast, Guidance (ICD-10-PCS; 2019-09-24)
PROC: B548ZZA Ultrasonography of Superior Vena Cava, Guidance (ICD-10-PCS; 2019-09-24)
PROC: B310YZZ Fluoroscopy of Thoracic Aorta using Other Contrast (ICD-10-PCS; 2019-09-24)
PROC: B311YZZ Fluoroscopy of Right Brachiocephalic-Subclavian Artery using Other Contrast (ICD-10-PCS; 2019-09-24)
PROC: B41FYZZ Fluoroscopy of Right Lower Extremity Arteries using Other Contrast (ICD-10-PCS; 2019-09-24)
PROC: 0X6Q0Z3 Detachment at Right Middle Finger, Low, Open Approach (ICD-10-PCS; 2019-09-25)
PROC: 0JH63XZ Insertion of Tunneled Vascular Access Device into Chest Subcutaneous Tissue and Fascia, Percutaneous Approach (ICD-10-PCS; 2019-09-26)
PROC: 05PYX3Z Removal of Infusion Device from Upper Vein, External Approach (ICD-10-PCS; 2019-09-26)
PROC: 02H633Z Insertion of Infusion Device into Right Atrium, Percutaneous Approach (ICD-10-PCS; 2019-09-26)
PROC: B518ZZA Fluoroscopy of Superior Vena Cava, Guidance (ICD-10-PCS; 2019-09-26)
PROC: 05WY3JZ Revision of Synthetic Substitute in Upper Vein, Percutaneous Approach (ICD-10-PCS; principal; 2019-09-30)
PROC: B51W1ZZ Fluoroscopy of Dialysis Shunt/Fistula using Low Osmolar Contrast (ICD-10-PCS; 2019-09-30)
DX: T82.868A Thrombosis due to vascular prosthetic devices, implants and grafts, initial encounter (principal); G93.41 Metabolic encephalopathy; I50.33 Acute on chronic diastolic (congestive) heart failure; N18.6 End stage renal disease; I13.2 Hypertensive heart and chronic kidney disease with heart failure and with stage 5 chronic kidney disease, or end stage renal disease; M86.141 Other acute osteomyelitis, right hand; E11.52 Type 2 diabetes mellitus with diabetic peripheral angiopathy with gangrene; L03.011 Cellulitis of right finger; G47.30 Sleep apnea, unspecified; K21.9 Gastro-esophageal reflux disease without esophagitis; M19.90 Unspecified osteoarthritis, unspecified site; E11.69 Type 2 diabetes mellitus with other specified complication; E11.22 Type 2 diabetes mellitus with diabetic chronic kidney disease; E78.5 Hyperlipidemia, unspecified; F31.9 Bipolar disorder, unspecified; E21.3 Hyperparathyroidism, unspecified; E11.42 Type 2 diabetes mellitus with diabetic polyneuropathy; E03.9 Hypothyroidism, unspecified; M79.7 Fibromyalgia; F17.210 Nicotine dependence, cigarettes, uncomplicated; G89.4 Chronic pain syndrome; D64.9 Anemia, unspecified; E11.649 Type 2 diabetes mellitus with hypoglycemia without coma; F41.9 Anxiety disorder, unspecified; E78.00 Pure hypercholesterolemia, unspecified; E87.5 Hyperkalemia; Z20.828 Contact with and (suspected) exposure to other viral communicable diseases; I48.91 Unspecified atrial fibrillation; J44.9 Chronic obstructive pulmonary disease, unspecified; Y83.2 Surgical operation with anastomosis, bypass or graft as the cause of abnormal reaction of the patient, or of later complication, without mention of misadventure at the time of the procedure; Z99.2 Dependence on renal dialysis; Z79.02 Long term (current) use of antithrombotics/antiplatelets; Y92.89 Other specified places as the place of occurrence of the external cause; Z87.01 Personal history of pneumonia (recurrent); Z90.49 Acquired absence of other specified parts of digestive tract; Z90.710 Acquired absence of both cervix and uterus; Z89.511 Acquired absence of right leg below knee; Z89.512 Acquired absence of left leg below knee; Z82.49 Family history of ischemic heart disease and other diseases of the circulatory system; Z91.19 Patient's noncompliance with other medical treatment and regimen
CPT/HCPCS: 36217; 36415; 36556; 36581; 36901; 36905; 73140; 75605; 75710; 76937; 77001; 80048; 80053; 80069; 80202; 82947; 82962; 84132; 85025; 85610; 85730; 87071; 87075; 88305; 88311; 93005; 93931; 96361; 96374; 96375; 99285; C1713; C1725; C1750; C1757; C1760; C1769; C1892; C1894; G0269; G0378; G0379; J0610; J1610; J1630; J1644; J1815; J2250; J2270; J2405; J2543; J2704; J2997; J3010; J3370; J3490; J7030; J7050; P9045; Q9967; A4461; U0003-CS

== ENCOUNTER 2019-10-14 22:13 | Emergency (ER) | payer MEDICAID ==
[~2019-10-14] VITALS: Ht 111.8 cm; Wt 75.0 kg
[~2019-10-14 22:13] MED LIST changes: +BUPR300T92 PO; +OXYC1TAB22 PO
--- NOTE | 2019-10-14 23:44 | PHYS DOC ---
Past Medical History Past Medical History: A-Fib, Anemia, Anxiety, Arthritis, Asthma, Bronchitis, CHF, COPD, Depression, Diabetes-Type II, GERD, High Cholesterol, Hypertension, Hypothyroid, Renal Disease Additional Past Medical Histor: neuropathy, cataracts,CHRONIC PAIN,ESRD,PNEUMONIA,SLEEP APNEA Past Surgical History: Appendectomy, Cholecystectomy, Hysterectomy, Other Additional Past Surgical Histo: bilateral bka, shunt, hysterectomy; RIGHT HAND MIDDLE FINGER AMPUTATION Smoking Status: Current Every Day Smoker Alcohol Use: None Drug Use: None General Adult EDM: Chief Complaint: PAIN CONTROL HPI: HPI: Patient is a 59 year old female who presents with complaints of needing narcotic pain medicine and suture removal from surgery done to her right middle finger approximately 1 month ago. Patient states that she comes here to get Dilaudid or fentanyl or hydrocodone or oxycodone or Percocet or Vicodin or [place] or what ever it is that she can get while she is here. Patient states that she has pain all the time and can only be relieved with narcotic pain medicines. Patient states her pain is a 20/10. Patient denies fever chills or vision changes, patient denies any nasal congestion cough or shortness of breath. Patient complains of pain all over to include back pains, pains at amputation sites, pains in her joints. Patient denies any swelling of her glands. Patient denies any recent depression or anxieties. Patient denies HI SI. Review of Systems: Review of Systems: Constitutional: Denies fever or chills. Eyes: Denies change in visual acuity. HENT: Denies nasal congestion or sore throat. Respiratory: Denies cough or shortness of breath. Cardiovascular: Denies chest pain or edema. GI: Denies abdominal pain, nausea, vomiting, bloody stools or diarrhea. : Denies dysuria. Musculoskeletal: Patient complains of pain all over all her joints and all of her muscles. Integument: Denies rash. Neurologic: Denies headache, focal weakness or sensory changes. Endocrine: Denies polyuria or polydipsia. Lymphatic: Denies swollen glands. Psychiatric: Denies depression or anxiety. Patient denies HI/SI. Heart Score: Risk Factors: Risk Factors: DM, Current or recent (<one month) smoker, HTN, HLP, family history of CAD, obesity. Risk Scores: Score 0 - 3: 2.5% MACE over next 6 weeks - Discharge Home Score 4 - 6: 20.3% MACE over next 6 weeks - Admit for Clinical Observation Score 7 - 10: 72.7% MACE over next 6 weeks - Early Invasive Strategies Allergies: Allergies: Allergies Coded Allergies Type Severity Reaction Last Updated Verified No Known Drug Allergies 02/27/19 No Physical Exam: PE: Constitutional: Well developed, well nourished, no acute distress, non-toxic appearance. Patient reports of pain are far out of proportion to physical findings. HENT: Normocephalic, atraumatic, bilateral external ears normal, oropharynx moist, no oral exudates, nose normal. Eyes: PERRLA, EOMI, conjunctiva normal, no discharge. 5 mm. Neck: Normal range of motion, no tenderness, supple, no stridor. Cardiovascular:Heart rate regular rhythm, no murmur heart sounds S1-S2, no abnormalities noted per auscultation. Lungs & Thorax: Bilateral breath sounds clear to auscultation all lung berumen. Abdomen: Bowel sounds normal all 4 quadrants, soft, no tenderness, no masses, no pulsatile masses. Skin: Warm, dry, no erythema, no rash. Back: No tenderness, no CVA tenderness. Extremities: No tenderness, no cyanosis, no clubbing, ROM intact, no edema. Patient has bilateral BKA. Patient's right middle finger amputated at MIP joint with 7 sutures well-healed without infectious process noted. Neurologic: Alert and oriented X 3, normal motor function, normal sensory function, no focal deficits noted. Psychologic: Affect normal, judgement normal, mood normal. Current Patient Data: Vital Signs: Vital Signs Date Time Temp Pulse Resp B/P (MAP) Pulse Ox O2 Delivery O2 Flow Rate FiO2 10/14/19 23:07 98.3 91 17 222/92 (135) 97 Room Air 98.3 EKG: EKG: [] Radiology/Procedures: Radiology/Procedures: [] Course & Med Decision Making: Course & Med Decision Making Pertinent Labs and Imaging studies reviewed. (See chart for details) 59-year-old patient arrived to the emergency department, complaining of pain all over requesting narcotic pain medicines. Patient also requests to have her sutures removed from a surgery in her right middle finger that was amputated over a month ago per patient statement. Patient had 7 sutures which were removed by nursing staff. Patient surgical site was well-healed and without infectious process. Nursing staff dressed affected finger. Discussed with patient that she would need to follow-up with pain management and she would not be getting narcotic pain medicine today in the emergency department. Patient was offered 1 g of Tylenol which she accepted. Discharge instructions were reviewed with the patient, patient was angry that she was not receiving prescriptions for narcotic pain medicines again reviewed with patient she was not receiving narcotics from this emergency department today. Patient was discharged home had no further questions or concerns. Dragon Disclaimer: Dragon Disclaimer: This electronic medical record was generated, in whole or in part, using a voice recognition dictation system. Departure Departure Impression: Primary Impression: Visit for suture removal Additional Impressions: Chronic pain Qualified Codes: G89.4 - Chronic pain syndrome Drug-seeking behavior Disposition: 01 HOME, SELF-CARE Condition: GOOD Referrals: NO PCP (PCP) Patient Instructions: Suture Removal Additional Instructions: Please follow-up with your primary care physician for pain control. Return the emergency department further concerns. Justicifation of Admission Dx: Justifications for Admission: Justification of Admission Dx: N/A MARQUISE NOBLE APRN Oct 14, 2019 23:44
[2019-10-15] MEDS ORDERED: ACETAMINOPHEN 500 MG TABLET PO ONE
[2019-10-15 00:07] VITALS: BP 181/79
== END 2019-10-15 00:15 | disposition home or self-care (01) ==
LOC: ER 22:13
DX: S68.112D Complete traumatic metacarpophalangeal amputation of right middle finger, subsequent encounter (principal); G89.4 Chronic pain syndrome; Z76.5 Malingerer [conscious simulation]; I48.91 Unspecified atrial fibrillation; J45.909 Unspecified asthma, uncomplicated; J44.9 Chronic obstructive pulmonary disease, unspecified; I13.2 Hypertensive heart and chronic kidney disease with heart failure and with stage 5 chronic kidney disease, or end stage renal disease; E11.22 Type 2 diabetes mellitus with diabetic chronic kidney disease; N18.6 End stage renal disease; I50.9 Heart failure, unspecified; Z99.2 Dependence on renal dialysis; K21.9 Gastro-esophageal reflux disease without esophagitis; E03.9 Hypothyroidism, unspecified; E78.00 Pure hypercholesterolemia, unspecified; E11.40 Type 2 diabetes mellitus with diabetic neuropathy, unspecified; F17.200 Nicotine dependence, unspecified, uncomplicated; X58.XXXD Exposure to other specified factors, subsequent encounter
CPT/HCPCS: 99283

== ENCOUNTER 2019-10-22 21:17 | Emergency (ER) | payer MEDICAID ==
[~2019-10-22] VITALS: Ht 121.9 cm; Wt 68.0 kg
--- NOTE | 2019-10-22 21:37 | PHYS DOC ---
Past Medical History Past Medical History: A-Fib, Anemia, Anxiety, Arthritis, Asthma, Bronchitis, CHF, COPD, Depression, Diabetes-Type II, GERD, High Cholesterol, Hypertension, Hypothyroid, Renal Disease Additional Past Medical Histor: neuropathy, cataracts,CHRONIC PAIN,ESRD,PNEUMONIA,SLEEP APNEA Past Surgical History: Appendectomy, Cholecystectomy, Hysterectomy, Other Additional Past Surgical Histo: bilateral bka, shunt, hysterectomy; RIGHT HAND MIDDLE FINGER AMPUTATION Smoking Status: Current Every Day Smoker Alcohol Use: None Drug Use: None General Adult EDM: Chief Complaint: PAIN CONTROL HPI: HPI: Patient is a 59-year-old female with multiple medical problems who just recently had a dialysis catheter placed in her left upper chest. She states she is having some pain around that area. She denies any fever chills or sweats. She denies any shortness of breath or pleuritic type complaints. She denies hemoptysis. [] Review of Systems: Review of Systems: Constitutional: Denies fever or chills. [] Eyes: Denies change in visual acuity. [] HENT: Denies nasal congestion or sore throat. [] Respiratory: Per HPI [] Cardiovascular: Denies chest pain or edema. [] GI: Denies abdominal pain, nausea, vomiting, bloody stools or diarrhea. [] : Denies dysuria. [] Musculoskeletal: Reports chronic pain [] Integument: Denies rash. [] Neurologic: Denies headache, focal weakness or sensory changes. [] Endocrine: Denies polyuria or polydipsia. [] Lymphatic: Denies swollen glands. [] Psychiatric: Reports anxiety [] Heart Score: Risk Factors: Risk Factors: DM, Current or recent (<one month) smoker, HTN, HLP, family history of CAD, obesity. Risk Scores: Score 0 - 3: 2.5% MACE over next 6 weeks - Discharge Home Score 4 - 6: 20.3% MACE over next 6 weeks - Admit for Clinical Observation Score 7 - 10: 72.7% MACE over next 6 weeks - Early Invasive Strategies Current Medications: Current Medications Medications (Trade) Dose Ordered Sig/Clarence Start Time Stop Time Status Last Admin Dose Admin Oxycodone/ Acetaminophen (Percocet 5/325) 2 tab 1X ONCE 10/22/19 21:45 10/22/19 21:46 UNV Allergies: Allergies: Allergies Coded Allergies Type Severity Reaction Last Updated Verified No Known Drug Allergies 02/27/19 No Physical Exam: PE: Constitutional: Frail, appears much older than her stated age. [] HENT: Normocephalic, atraumatic, bilateral external ears normal, oropharynx moist, no oral exudates, nose normal. [] Eyes: PERRLA, EOMI, conjunctiva normal, no discharge. [] Neck: Normal range of motion, no tenderness, supple, no stridor. [] Cardiovascular:Heart rate regular rhythm, no murmur [] Lungs & Thorax: Bilateral breath sounds clear to auscultation, she has a dialysis catheter in the left upper chest there is no surrounding swelling or tenderness [] Abdomen: Bowel sounds normal, soft, no tenderness, no masses, no pulsatile masses. [] Skin: Warm, dry, no erythema, no rash. [] Back: No tenderness, no CVA tenderness. [] Extremities: No tenderness, no cyanosis, no clubbing, ROM intact, no edema. [] Neurologic: Alert and oriented X 3, normal motor function, normal sensory function, no focal deficits noted. [] Psychologic: Anxious [] EKG: EKG: [] Radiology/Procedures: Radiology/Procedures: []REASON: pain around dialysis port PROCEDURE: CHEST AP ONLY EXAM: AP View of the chest DATE: 10/22/2019 9:31 PM INDICATION: Pain around dialysis port COMPARISON: 06/25/2019, 04/03/2019 FINDINGS/ IMPRESSION: 1. Cardiomegaly with parahilar and lung base airspace opacities and bilateral pleural effusions may represent pulmonary edema. Multifocal consolidative process may also have this appearance. 2. No pneumothorax. 3. Left IJ vascular catheter tip projects over the distal SVC. 4. Likely dialysis graft in the left upper extremity. Course & Med Decision Making: Course & Med Decision Making Pertinent Labs and Imaging studies reviewed. (See chart for details) [] Dragon Disclaimer: Melisa Disclaimer: This electronic medical record was generated, in whole or in part, using a voice recognition dictation system. Departure Departure Impression: Primary Impression: Chest wall pain Disposition: HOME, SELF-CARE Condition: STABLE Referrals: NO PCP (PCP) Patient Instructions: Chest Wall Pain Additional Instructions: Keep your dialysis appointment as scheduled tomorrow Justicifation of Admission Dx: Justifications for Admission: Justification of Admission Dx: No DANIELA ALMAZAN DO Oct 22, 2019 21:37
[2019-10-22] MEDS ORDERED: oxyCODONE/APAP 5/325 1 TAB TABLET PO ONE (21:45)
--- NOTE | 2019-10-22 22:43 | RAD ---
EXAM: AP View of the chest DATE: 10/22/2019 9:31 PM INDICATION: Pain around dialysis port COMPARISON: 06/25/2019, 04/03/2019 FINDINGS/ IMPRESSION: 1. Cardiomegaly with parahilar and lung base airspace opacities and bilateral pleural effusions may represent pulmonary edema. Multifocal consolidative process may also have this appearance. 2. No pneumothorax. 3. Left IJ vascular catheter tip projects over the distal SVC. 4. Likely dialysis graft in the left upper extremity. Electronically signed by: Neymar Harp MD (10/22/2019 10:40 PM) PAWAN
[2019-10-22 23:01] VITALS: BP 223/84
== END 2019-10-22 23:43 | disposition home or self-care (01) ==
LOC: ER 21:17
DX: R07.89 Other chest pain (principal); F41.9 Anxiety disorder, unspecified; M19.90 Unspecified osteoarthritis, unspecified site; J44.9 Chronic obstructive pulmonary disease, unspecified; E11.40 Type 2 diabetes mellitus with diabetic neuropathy, unspecified; E78.00 Pure hypercholesterolemia, unspecified; I11.0 Hypertensive heart disease with heart failure; I50.9 Heart failure, unspecified; E03.9 Hypothyroidism, unspecified; F32.9 Major depressive disorder, single episode, unspecified; G89.29 Other chronic pain; F17.200 Nicotine dependence, unspecified, uncomplicated; Z90.89 Acquired absence of other organs; Z90.710 Acquired absence of both cervix and uterus; Z90.49 Acquired absence of other specified parts of digestive tract
CPT/HCPCS: 71045; 99285

== ENCOUNTER 2019-11-17 17:55 | Inpatient (IN) | payer MEDICAID ==
[~2019-11-17] VITALS: Ht 152.4 cm; Wt 52.2 kg
[2019-11-17] MEDS ORDERED: oxyCODONE/APAP 10/325 1 TAB TABLET PO ONE (18:45)
--- NOTE | 2019-11-17 20:13 | RAD ---
AP portable chest 11/17/2019. Reason for exam: Chest pain. Comparison is made with a study of 10/22/2019. A dialysis catheter present on the prior study has been removed. Bilateral infiltrates persist. The left side appears similar. The left hemidiaphragm is slightly less distinct. There is increased infiltrate in the upper right lung. There may be some fluid on the right, similar to the prior exam. The heart remains enlarged. IMPRESSION: Similar findings to the prior study. There probably has been some worsening of right upper lobe infiltrate. Electronically signed by: Gary Moya Jr., MD (11/17/2019 8:10 PM) [facility]
[2019-11-17 20:18] LABS: BASO # 0.1 x10^3/uL (0.0-0.2); BASO % 1 % (0-3); EOS % 0 % (0-3); HEMATOCRIT 30.1 % (36.0-47.0); HEMOGLOBIN 9.9 g/dL (12.0-15.5); LYMPH # 1.2 x10^3/uL (1.0-4.8); LYMPH % 15 % (24-48); MEAN CORPUSCULAR HEMOGLOBIN 32 pg (25-35); MEAN CORPUSCULAR HGB CONC 33 g/dL (31-37); MEAN CORPUSCULAR VOLUME 98 fL (79-100); MONO # 0.8 x10^3/uL (0.0-1.1); MONO % 10 % (0-9); NEUT # 5.8 x10^3/uL (1.8-7.7); NEUT % 74 % (31-73); PLATELET COUNT 269 x10^3/uL (140-400); RED BLOOD COUNT 3.08 x10^6/uL (3.50-5.40); RED CELL DISTRIBUTION WIDTH 18.6 % (11.5-14.5); WHITE BLOOD COUNT 7.8 x10^3/uL (4.0-11.0)
[2019-11-17 20:25] LABS: PROTHROMBIN TIME PATIENT 14.8 SEC (11.7-14.0)
[2019-11-17 20:28] LABS: D-DIMER 3.17 ug/mlFEU (0.00-0.50)
[2019-11-17 20:29] LABS: CALCIUM 9.1 mg/dL (8.5-10.1); CREATININE 4.9 mg/dL (0.6-1.0); POTASSIUM 5.6 mmol/L (3.5-5.1)
[2019-11-17 20:35] LABS: ALBUMIN 3.4 g/dL (3.4-5.0); ALBUMIN/GLOBULIN RATIO 0.8 (1.0-1.7); MAGNESIUM 2.5 mg/dL (1.8-2.4); TOTAL BILIRUBIN 0.5 mg/dL (0.2-1.0); TOTAL PROTEIN 7.6 g/dL (6.4-8.2)
[2019-11-17 20:43] LABS: CREATINE KINASE 98 U/L (26-192)
--- NOTE | 2019-11-17 20:43 | PHYS DOC ---
Past Medical History Past Medical History: A-Fib, Anemia, Anxiety, Arthritis, Asthma, Bronchitis, CHF, COPD, Depression, Diabetes-Type II, GERD, High Cholesterol, Hypertension, Hypothyroid, Renal Disease Additional Past Medical Histor: neuropathy, cataracts,CHRONIC PAIN,ESRD,PNEUMONIA,SLEEP APNEA Past Surgical History: Appendectomy, Cholecystectomy, Hysterectomy, Other Additional Past Surgical Histo: bilateral bka, shunt, hysterectomy; RIGHT HAND MIDDLE FINGER AMPUTATION Smoking Status: Current Every Day Smoker Alcohol Use: None Drug Use: None General Adult EDM: Chief Complaint: LOWER EXT PAIN HPI: HPI: Patient is a 59 year old AA female who presents to the emergency department with complaints of chest pain, and shortness of breath with exertion for the last 5 days. She denies any known exposure to COVID-19. She denies any fever, cough, sore throat, rash, nausea, vomiting, diarrhea, or abdominal pain. She also complains of bilateral lower leg stump pain. Patient states she is out of her home medication for pain. She currently rates the pain a 10 out of 10 on the pain scale, she denies any alleviating or exacerbating factors. Review of Systems: Review of Systems: Constitutional: Denies fever or chills. [] HENT: Denies nasal congestion or sore throat. [] Respiratory: Denies cough; see HPI Cardiovascular: Denies palpitations or edema; reports substernal chest pain GI: Denies abdominal pain, nausea, vomiting, or diarrhea. [] : Patient no longer produces urine. Musculoskeletal: See HPI Integument: Denies rash. [] Neurologic: Denies headache Psychiatric: Denies depression or anxiety. [] Heart Score: Risk Factors: Risk Factors: DM, Current or recent (<one month) smoker, HTN, HLP, family history of CAD, obesity. Risk Scores: Score 0 - 3: 2.5% MACE over next 6 weeks - Discharge Home Score 4 - 6: 20.3% MACE over next 6 weeks - Admit for Clinical Observation Score 7 - 10: 72.7% MACE over next 6 weeks - Early Invasive Strategies Current Medications: Current Medications Medications (Trade) Dose Ordered Sig/Clarence Start Time Stop Time Status Last Admin Dose Admin Oxycodone/ Acetaminophen (Percocet 10/325) 1 tab 1X ONCE 11/17/19 18:45 11/17/19 18:48 DC 11/17/19 19:26 1 TAB Allergies: Allergies: Allergies Coded Allergies Type Severity Reaction Last Updated Verified No Known Drug Allergies 02/27/19 No Physical Exam: PE: Constitutional: Well developed, no acute distress, appears older than stated age, frail appearance. [] HENT: Normocephalic, atraumatic, bilateral external ears normal, nose normal. [] Eyes: PERRLA, EOMI, conjunctiva normal, no discharge. [] Neck: Normal range of motion, no stridor. [] Cardiovascular:Heart rate regular rhythm, no murmur [] Lungs & Thorax: Bilateral breath sounds coarse and diminished in bases bilaterally, no retractions, regular rate Abdomen: Bowel sounds normal, soft, no tenderness, no masses, no pulsatile masses. [] Skin: Warm, dry, no erythema, no rash. [] Back: No tenderness, no CVA tenderness. [] Extremities: NICOLAS: AV fistula present, +bruit, +thrill BLE: Bilateral BKA's, no erythema, no warmth, no drainage, nontender, no cyanosis, ROM intact Neurologic: Alert and oriented X 3, no focal deficits noted. [] Psychologic: Affect normal, judgement normal, mood normal. [] Current Patient Data: Labs: Laboratory Tests Test 11/17/19 20:07 White Blood Count 7.8 x10^3/uL (4.0-11.0) Red Blood Count 3.08 x10^6/uL (3.50-5.40) L Hemoglobin 9.9 g/dL (12.0-15.5) L Hematocrit 30.1 % (36.0-47.0) L Mean Corpuscular Volume 98 fL (79-100) Mean Corpuscular Hemoglobin 32 pg (25-35) Mean Corpuscular Hemoglobin Concent 33 g/dL (31-37) Red Cell Distribution Width 18.6 % (11.5-14.5) H Platelet Count 269 x10^3/uL (140-400) Neutrophils (%) (Auto) 74 % (31-73) H Lymphocytes (%) (Auto) 15 % (24-48) L Monocytes (%) (Auto) 10 % (0-9) H Eosinophils (%) (Auto) 0 % (0-3) Basophils (%) (Auto) 1 % (0-3) Neutrophils # (Auto) 5.8 x10^3/uL (1.8-7.7) Lymphocytes # (Auto) 1.2 x10^3/uL (1.0-4.8) Monocytes # (Auto) 0.8 x10^3/uL (0.0-1.1) Eosinophils # (Auto) 0.0 x10^3/uL (0.0-0.7) Basophils # (Auto) 0.1 x10^3/uL (0.0-0.2) Prothrombin Time 14.8 SEC (11.7-14.0) H Prothrombin Time INR 1.2 (0.8-1.1) H Activated Partial Thromboplast Time 27 SEC (24-38) D-Dimer (Kanika) 3.17 ug/mlFEU (0.00-0.50) H Sodium Level 138 mmol/L (136-145) Potassium Level 5.6 mmol/L (3.5-5.1) H Chloride Level 101 mmol/L (98-107) Carbon Dioxide Level 30 mmol/L (21-32) Anion Gap 7 (6-14) Blood Urea Nitrogen 47 mg/dL (7-20) H Creatinine 4.9 mg/dL (0.6-1.0) H Estimated GFR (Cockcroft-Gault) 11.0 BUN/Creatinine Ratio 10 (6-20) Glucose Level 203 mg/dL (70-99) H Calcium Level 9.1 mg/dL (8.5-10.1) Magnesium Level 2.5 mg/dL (1.8-2.4) H Total Bilirubin 0.5 mg/dL (0.2-1.0) Aspartate Amino Transferase (AST) 83 U/L (15-37) H Alanine Aminotransferase (ALT) 94 U/L (14-59) H Alkaline Phosphatase 157 U/L (46-116) H Total Protein 7.6 g/dL (6.4-8.2) Albumin 3.4 g/dL (3.4-5.0) Albumin/Globulin Ratio 0.8 (1.0-1.7) L Lipase 125 U/L (73-393) Laboratory Tests 11/17/19 20:07 Laboratory Tests 11/17/19 20:07 Vital Signs: Vital Signs Date Time Temp Pulse Resp B/P (MAP) Pulse Ox O2 Delivery O2 Flow Rate FiO2 11/17/19 18:58 90 18 198/86 (123) 97 Nasal Cannula 3.0 11/17/19 17:55 98.2 98.2 EKG: EK-sinus rhythm rate of 91, left axis deviation with left anterior fascicular block, LVH with repolarization abnormality, no STEMI, read by Dr. Bhatt [] Radiology/Procedures: Radiology/Procedures: PROCEDURE: CHEST AP ONLY AP portable chest 11/17/2019. Reason for exam: Chest pain. Comparison is made with a study of 10/22/2019. A dialysis catheter present on the prior study has been removed. Bilateral infiltrates persist. The left side appears similar. The left hemidiaphragm is slightly less distinct. There is increased infiltrate in the upper right lung. There may be some fluid on the right, similar to the prior exam. The heart remains enlarged. IMPRESSION: Similar findings to the prior study. There probably has been some worsening of right upper lobe infiltrate. [] Course & Med Decision Making: Course & Med Decision Making Pertinent Labs and Imaging studies reviewed. (See chart for details) 2111-spoke with Dr. Elena who is the admitting physician, and care was assumed following discussion of patient. Advised the patient is complaining of chest pain and shortness of breath with elevated d-dimer and elevated troponin. Unable to obtain IV access for chest CT or VQ scan. I will order a cardiology consult. Will admit patient as observation status for chest pain, shortness of breath, hypertension, elevated d-dimer, elevated troponin, chronic renal failure. Patient's vital signs stable. Patient remains afebrile, respirations even and unlabored. Patient will be admitted to the CVC floor. Serial troponins with EKGs have been ordered. Patient has multiple risk factors for anticoagulation. She is not tachycardic or hypoxic with monitoring, there is low suspicion for need for anticoagulation at this time, will hold off on anticoagulation until further evaluation can be completed of elevated d-dimer to rule out PE. Patient's case and plan of care also discussed with Dr. Bhatt [] Melisa Disclaimer: Melisa Disclaimer: This electronic medical record was generated, in whole or in part, using a voice recognition dictation system. Departure Departure Impression: Primary Impression: Chest pain Qualified Codes: R07.9 - Chest pain, unspecified Additional Impressions: Shortness of breath Elevated d-dimer Elevated troponin CKD (chronic kidney disease) Qualified Codes: N18.6 - End stage renal disease; Z99.2 - Dependence on re nal dialysis Hypertension Qualified Codes: I10 - Essential (primary) hypertension Disposition: 09 ADMITTED INPATIENT Admitting Physician: FARAH (Farela) Condition: STABLE Referrals: NO PCP (PCP) Justicifation of Admission Dx: Justifications for Admission: Justification of Admission Dx: Yes Chronic Renal Failure: Hypertension MEGA SANTOS SANDBLASTER SUPERVISOR Nov 17, 2019 20:43
[2019-11-17] MEDS ORDERED: cloNIDine HCL 0.1 MG TABLET PO PRN (22:15)
[2019-11-17] MEDS ORDERED: ALBUTEROL SULFATE 2.5 MG/3 ML NEBU. NEB PRN (22:15)
[2019-11-17] MEDS ORDERED: ONDANSETRON PF 4 MG/2 ML VIAL. IV PRN (22:15)
[2019-11-17] MEDS ORDERED: guaiFENesin ORAL 200 MG/10 ML LIQUID. PO PRN (22:15)
[2019-11-17] MEDS ORDERED: MAG HYDROX/ALUMINUM HYD/SIMETH 30 ML ORAL.SUSP PO PRN (22:15)
[2019-11-17] MEDS ORDERED: ZOLPIDEM 5 MG TABLET. PO PRN (22:15)
[2019-11-17] MEDS ORDERED: diphenhydrAMINE 50 MG/ML VIAL IVP PRN (22:15)
[2019-11-17] MEDS ORDERED: ACETAMINOPHEN 325 MG TABLET. PO PRN (22:15)
[2019-11-17] MEDS: IV NORMAL SALINE 1000ML BAG 1,000 ML IV SCH (22:30)
[2019-11-17] MEDS ORDERED: CARVEDILOL 12.5 MG TABLET. PO ONE (22:30)
--- NOTE | 2019-11-17 22:30 | NUR ---
Admit from ED via gurney to [facility] room 246. Transferred from [place] to bed with 2 person lift. Angry and irritable on arrival. Will not talk to staff. Wants "morphine shot". Also wants "meatloaf". Will not allow staff to assess patient. Would not take BP pill in ED. Orientated to call light and room. Reviewed POC to include tele monitor and lab draws. Reinforcement needed. Resting in bed with call light at hand.
[2019-11-17] MEDS: MORPHINE IR 15 MG TABLET PO PRN (23:14)
[2019-11-17] MEDS ORDERED: DEXTROSE 50% 25 GM / 50ML DISP.SYRIN. IV PRN (23:15)
[2019-11-17 23:30] VITALS: BP 190/68
--- NOTE | 2019-11-17 23:46 | NUR ---
Wanting "Morphine shot" Rates pain 20/10. Describes as generalized aching. Paged Dr Elena for orders for pain meds. Patient has no IV access and will not allow attempt to place SL. History of hard IV start. Dr Elena returns call with orders for Morphine IR 15mg PO Q6hrs prn pain. Esplained to patient no "Morphine shot" but Morphine PO. Patient willing to take BP med now that she can have pain pill. Continues to rest in bed with call light at hand.
--- NOTE | 2019-11-18 01:34 | NUR ---
Anxious. Keeps taking tele monitor off. Calls out for help. C/O SOA. O2 Sat 98% with 4L NC. Lungs with wheezing and some fine crackles on right side. Skin warm and dry. Called for RT for PRN Breathing Treatment. Patient is due for Dialysis today as she does HD on Monday, Monday and Monday. Resting in bed at 90 degree angle, rocking. Call light at hand.
--- NOTE | 2019-11-18 02:38 | NUR ---
Continues to take tele monitor off after it has been placed back on her.
[2019-11-18 02:50] VITALS: BP 188/76
[2019-11-18] MEDS: MORPHINE IR 15 MG TABLET PO PRN ×2 (04:21→12:16)
--- NOTE | 2019-11-18 05:27 | NUR ---
c/o itching. IV Benadryl order changed to Benadryl PO as patient does not have IV access.
[2019-11-18] MEDS: diphenhydrAMINE HCL 25 MG CAPSULE PO PRN ×2 (05:38→20:41)
[2019-11-18 07:00] VITALS: BP 173/65
[2019-11-18] MEDS: IV NORMAL SALINE 1000ML BAG 1,000 ML IV SCH ×2 (07:35→18:30)
--- NOTE | 2019-11-18 07:46 | EKG ---
[facility] [address] [place] [address] Test Date: 2019-11-17 Test Time: 18:58:16 Pat Name: OTTONIEL SMITH Department: Room: Gender: F Air Intelligence Officer: : 1960 Requested By: MEGA SANTOS Order Number: [id number] Reading MD: Measurements Intervals [place] Rate: 91 P: 62 [place]: 168 QRS: -30 QRSD: 94 T: 126 QT: 370 QTc: 457 Interpretive Statements SINUS RHYTHM ABNORMAL LEFT AXIS DEVIATION LEFT ANTERIOR FASCICULAR BLOCK LVH WITH REPOLARIZATION ABNORMALITY ABNORMAL ECG RI6.02 No previous ECG available for comparison
[2019-11-18] MEDS: INSULIN LISPRO 300 UNITS/3 ML VIAL. SQ SCH ×3 (08:00→17:00)
[2019-11-18] MEDS ORDERED: IV NORMAL SALINE 1000ML BAG 1,000 ML IV PRN ×2 (08:33)
[2019-11-18] MEDS ORDERED: ACETAMINOPHEN 500 MG TABLET PO PRN (08:45)
[2019-11-18] MEDS ORDERED: diphenhydrAMINE 50 MG/ML VIAL IV PRN ×2 (08:45)
[2019-11-18] MEDS ORDERED: 0.9 % SODIUM CHLORIDE 10 ML DISP.SYRIN. IV PRN ×2 (08:45)
[2019-11-18] MEDS ORDERED: ALBUMIN HUMAN 25% 200 ML IV PRN (08:45)
[2019-11-18] MEDS ORDERED: DIALYSIS PATIENT. MC PRN (08:45)
[2019-11-18] MEDS ORDERED: ALBUTEROL SULFATE 2.5 MG/3 ML NEBU. INH PRN (10:00)
[2019-11-18] MEDS ORDERED: guaiFENesin DM 200MG/20MG 10 ML SYRUP PO PRN (10:00)
[2019-11-18] MEDS ORDERED: oxyCODONE/APAP 10/325 1 TAB TABLET PO PRN (10:00)
[2019-11-18] MEDS ORDERED: ONDANSETRON ODT 4 MG TAB.RAPDIS. PO PRN (10:00)
[2019-11-18] MEDS ORDERED: PROCHLORPERAZINE 5 MG TABLET. PO PRN (10:00)
[2019-11-18] MEDS ORDERED: ACETAMINOPHEN 650 MG PO PRN (10:00)
--- NOTE | 2019-11-18 10:19 | PDOC2 ---
MORAIMA BERRY APRN 11/18/19 1019: CARDIAC CONSULT DATE OF CONSULT Date of Consult DATE: 11/18/19 TIME: 10:16 REASON FOR CONSULT Reason for Consult: Elevated troponin REFERRING PHYSICIAN Referring Physician: Stefanie Winchester APRN SOURCE Source: Chart review, Patient HISTORY OF PRESENT ILLNESS HISTORY OF PRESENT ILLNESS This is a 59 yo female who presented secondary to chest pain and shortness of breath. Trop noted to be mildly elevated, which prompted this consult. Patient with ESRD on HD. History of noncompliance with meds and treatment. Is outpatient HD on MWF. Missed her last HD run. Has been more short of breath the last couple of days. Having intermittent stabbing pain in her central chest. Worse with deep breathing. No dizziness, diaphoresis, palpitations, or nausea/vomiting. Does reports that she ran our of meds at home. PAST MEDICAL HISTORY Cardiovascular: CHF, HTN, Hyperlipidemia Pulmonary: Asthma, COPD CENTRAL NERVOUS SYSTEM: Periperal neuropathy GI: GERD Heme/Onc: Anemia NOS Psych: Bipolar, Depression Musculoskeletal: Osteoarthritis Rheumatologic: Fibromyalgia Renal/: Chronic renal failure (ESRD on HD) Endocrine: Diabetes, Hypothyroidism PAST SURGICAL HISTORY Past Surgical History: Hysterectomy, Other (bilateral BKA ) FAMILY HISTORY Family History: Heart Disease, High Cholestrol, Hypertension SOCIAL HISTORY ALCOHOL: none Drugs: None Lives: Alone CURRENT MEDICATIONS CURRENT MEDICATIONS Current Medications Medications (Trade) Dose Ordered Sig/Clarence Route PRN Reason Start Time Stop Time Status Last Admin Dose Admin Oxycodone/ Acetaminophen (Percocet 10/325) 1 tab 1X ONCE PO 11/17/19 18:45 11/17/19 18:48 DC 11/17/19 19:26 Carvedilol (Coreg) 12.5 mg 1X ONCE PO 11/17/19 22:30 11/17/19 22:31 DC 11/17/19 23:14 Albuterol Sulfate (Ventolin Neb Soln) 2.5 mg PRN Q4HRS PRN NEB SHORTNESS OF BREATH 11/17/19 22:15 11/18/19 01:40 Morphine Sulfate (Morphine Ir) 15 mg PRN Q6HRS PRN PO PAIN 11/17/19 23:15 11/18/19 04:21 Diphenhydramine HCl (Benadryl) 25 mg PRN Q6HRS PRN PO ITCHING 11/18/19 05:30 8/24/20 05:38 ALLERGIES ALLERGIES: Coded Allergies: No Known Drug Allergies (Unverified , 02/27/19) ROS Review of System 14 point ROS conducted with pertinent positives noted above in HPI PHYSICAL EXAM General: Alert, Oriented X3, Cooperative, No acute distress HEENT: Atraumatic Lungs: Other (diminished bases) Heart: Regular rate Abdomen: Soft, No tenderness Extremities: No edema, Other ( Bilateral BKA ) Skin: No significant lesion Neuro: Sensation intact Psych/Mental Status: Mental status NL MUSCULOSKELETAL: Osteoarthritic changes both hands VITALS/I&O VITALS/I&O: Vital Signs Date Time Temp Pulse Resp B/P (MAP) Pulse Ox O2 Delivery O2 Flow Rate FiO2 11/18/19 07:00 98.0 67 18 173/65 (101) Nasal Cannula 4.0 98.0 11/18/19 05:21 98 I & O 11/17/19 11/17/19 11/18/19 15:00 23:00 07:00 Intake Total 580 ml Balance 580 ml LABS Lab: Laboratory Tests Test 11/17/19 20:07 11/18/19 00:15 11/18/19 08:16 White Blood Count 7.8 x10^3/uL (4.0-11.0) Red Blood Count 3.08 x10^6/uL (3.50-5.40) L Hemoglobin 9.9 g/dL (12.0-15.5) L Hematocrit 30.1 % (36.0-47.0) L Mean Corpuscular Volume 98 fL (79-100) Mean Corpuscular Hemoglobin 32 pg (25-35) Mean Corpuscular Hemoglobin Concent 33 g/dL (31-37) Red Cell Distribution Width 18.6 % (11.5-14.5) H Platelet Count 269 x10^3/uL (140-400) Neutrophils (%) (Auto) 74 % (31-73) H Lymphocytes (%) (Auto) 15 % (24-48) L Monocytes (%) (Auto) 10 % (0-9) H Eosinophils (%) (Auto) 0 % (0-3) Basophils (%) (Auto) 1 % (0-3) Neutrophils # (Auto) 5.8 x10^3/uL (1.8-7.7) Lymphocytes # (Auto) 1.2 x10^3/uL (1.0-4.8) Monocytes # (Auto) 0.8 x10^3/uL (0.0-1.1) Eosinophils # (Auto) 0.0 x10^3/uL (0.0-0.7) Basophils # (Auto) 0.1 x10^3/uL (0.0-0.2) Prothrombin Time 14.8 SEC (11.7-14.0) H Prothrombin Time INR 1.2 (0.8-1.1) H Activated Partial Thromboplast Time 27 SEC (24-38) D-Dimer (Kanika) 3.17 ug/mlFEU (0.00-0.50) H Sodium Level 138 mmol/L (136-145) Potassium Level 5.6 mmol/L (3.5-5.1) H Chloride Level 101 mmol/L (98-107) Carbon Dioxide Level 30 mmol/L (21-32) Anion Gap 7 (6-14) Blood Urea Nitrogen 47 mg/dL (7-20) H Creatinine 4.9 mg/dL (0.6-1.0) H Estimated GFR (Cockcroft-Gault) 11.0 BUN/Creatinine Ratio 10 (6-20) Glucose Level 203 mg/dL (70-99) H Calcium Level 9.1 mg/dL (8.5-10.1) Magnesium Level 2.5 mg/dL (1.8-2.4) H Total Bilirubin 0.5 mg/dL (0.2-1.0) Aspartate Amino Transferase (AST) 83 U/L (15-37) H Alanine Aminotransferase (ALT) 94 U/L (14-59) H Alkaline Phosphatase 157 U/L (46-116) H Creatine Kinase 98 U/L (26-192) Creatine Kinase MB (Mass) 3.7 ng/mL (0.0-3.6) H Creatine Kinase MB Relative Index 3.8 % (0-4) Troponin I Quantitative 0.129 ng/mL (0.000-0.055) 0.133 ng/mL (0.000-0.055) QD-Anz-Q-Type Natriuretic Peptide > 43312 pg/mL (0-124) H Total Protein 7.6 g/dL (6.4-8.2) Albumin 3.4 g/dL (3.4-5.0) Albumin/Globulin Ratio 0.8 (1.0-1.7) L Lipase 125 U/L (73-393) Triglycerides Level 55 mg/dL (0-150) Cholesterol Level 126 mg/dL (0-200) LDL Cholesterol, Calculated 51 mg/dL (0-100) VLDL Cholesterol, Calculated 11 mg/dL (0-40) Non-HDL Cholesterol Calculated 62 mg/dL (0-129) HDL Cholesterol 64 mg/dL (40-60) H Cholesterol/HDL Ratio 2.0 Glucose (Fingerstick) 105 mg/dL (70-99) H Laboratory Tests 11/17/19 20:07 Laboratory Tests 11/17/19 20:07 ECHOCARDIOGRAM ECHOCARDIOGRAM <Conclusion> The left ventricle is normal size. The left ventricular systolic function is normal and the ejection fraction is within normal range. The Ejection Fraction is 50-55%. There is moderate concentric left ventricular hypertrophy. Doppler and Color Flow revealed no significant aortic regurgitation. There is no significant aortic valvular stenosis. Doppler and Color-flow revealed trace to mild mitral regurgitation. Doppler and Color Flow revealed trace to mild tricuspid regurgitation. The PA pressure was estimated at 25 mmHg. DATE: 03/24/19 1334 STRESS TEST STRESS TEST Conclusion 1. Regadenoson cardioisotope stress test did not show any evidence of ischemia or infarct. 2. Normal left ventricular systolic function with ejection fraction calculated at 51%. 3. Low risk for cardiac events. DATE: 03/26/18 1227 ASSESSMENT/PLAN ASSESSMENT/PLAN 1. Dyspnea with acute on chronic diastolic CHF in setting of missed HD 2. Chest pain, atypical. 3. Mild troponin elevation; highest 0.133. Most probably type II, demand ischemia 4. ESRD on HD 5. Hypertensive urgency; remains labile 6. Hyperlipidemia; statin 7. Diabetes, II; as per IM 8. Hypothyroidism; levothyroxine 9. PAD s/p bilateral BKA 10. Noncompliance Recommendations Trend troponin Lipids ASA Resume home antiHTN therapy and titrate as warranted Echo to assess LV systolic function Fluid offloading via HD Consider outpatient ischemic evaluation Supportive care Encouraged compliance with medications, treatment recommendations RILEY WHITE MD 11/18/192021: CARDIAC CONSULT ASSESSMENT/PLAN ASSESSMENT/PLAN Patient seen and examined. Agree with SLATE WORKER's assessment and plan. Slight trop elevation prob demand ischemia Doubt ACS. Check 2D echo to rule out WMA and consider outpatient ischemic evaluation Continue fluid removal with HD per nephrology team for acute on chr diast HF Resume home antihypertensives and titrate for better control Thank you for your consultation MORAIMA BERRY APRN Nov 18, 2019 10:19 RILEY WHITE MD Nov 18, 2019 20:22
[2019-11-18 10:27] LABS: ALBUMIN 2.8 g/dL (3.4-5.0); ALBUMIN/GLOBULIN RATIO 0.9 (1.0-1.7); CALCIUM 8.5 mg/dL (8.5-10.1); CREATININE 4.1 mg/dL (0.6-1.0); GFR 13.6; POTASSIUM 5.1 mmol/L (3.5-5.1); TOTAL BILIRUBIN 0.4 mg/dL (0.2-1.0); TOTAL PROTEIN 5.9 g/dL (6.4-8.2)
[2019-11-18] MEDS ORDERED: cloNIDine TTS-2 1 PATCH PATCH TD SCH (11:00)
[2019-11-18] MEDS ORDERED: NON FORMULARY ITEM (Insulin Lispro (Humalog) 0 UNITS) SQ SCH (12:00)
--- NOTE | 2019-11-18 13:07 | PDOC2 ---
CONSULT Date of Consult Date of Consult DATE: 11/18/19 TIME: 13:03 Reason for Consult Reason for Consult: ESRD Referring Physician Referring Physician: RICHARD Identification/Chief Complaint Chief Complaint CHEST PAIN Source Source: Chart review, Patient History of Present Illness Reason for Visit: THIS IS A 59 YR OLD WELL KNOW ESRD PT WITH NON COMPLIANCE WITH MEDS AND TX AND RECOMMENDATIONS. SHE IS ADMITTED WITH CHEST PAIN. NOTED TO BE CHF. HAS OP HD ON MWF. MISSED HER LAST OP HD TX. ESRD IS DUE TO DM II AND HTN. LABS ARE C/W HER ESRD. Past Medical History Cardiovascular: CHF, HTN, Hyperlipidemia Pulmonary: Asthma, COPD CENTRAL NERVOUS SYSTEM: Periperal neuropathy GI: GERD Heme/Onc: Anemia NOS Hepatobiliary: No pertinent hx Psych: Bipolar, Depression Musculoskeletal: Osteoarthritis Rheumatologic: Fibromyalgia Infectious disease: No pertinent hx Renal/: Chronic renal failure (ESRD on HD) Endocrine: Diabetes, Hypothyroidism, Hyperparathyroidism Past Surgical History Past Surgical History AVF Past Surgical History: Hysterectomy, Other (bilateral BKA ) Family History Family History: Heart Disease, High Cholestrol, Hypertension Social History ALCOHOL: none Drugs: None Lives: Alone Current Problem List Problem List Problems Medical Problems: (1) CKD (chronic kidney disease) Status: Chronic (2) Elevated d-dimer Status: Acute (3) Hypertension Status: Acute (4) Shortness of breath Status: Acute Current Medications Current Medications Current Medications Oxycodone/ Acetaminophen (Percocet 10/325) 1 tab 1X ONCE PO Last administered on 11/17/19at 19:26; Start 11/17/19 at 18:45; Stop 11/17/19 at 18:48; Status DC Carvedilol (Coreg) 12.5 mg 1X ONCE PO Last administered on 11/17/19at 23:14; Start 11/17/19 at 22:30; Stop 11/17/19 at 22:31; Status DC Sodium Chloride 1,000 ml @ 100 mls/hr Q10H IV ; Start 11/17/19 at 22:30 Ondansetron HCl (Zofran) 4 mg PRN Q4HRS PRN IV NAUSEA/VOMITING; Start 11/17/19 at 22:15 Zolpidem Tartrate (Ambien) 5 mg PRN QHS PRN PO INSOMNIA; Start 11/17/19 at 22:15 Acetaminophen (Tylenol) 650 mg PRN Q4HRS PRN PO TEMP OVER 100.4F OR MILD PAIN; Start 11/17/19 at 22:15 Al Hydroxide/Mg Hydroxide (Mylanta Plus Xs) 30 ml PRN DAILY PRN PO HEARTBURN / GAS; Start 11/17/19 at 22:15 Clonidine HCl (Catapres) 0.1 mg PRN Q6HRS PRN PO SBP>160 OR DBP>90; Start 11/17/19 at 22:15 Diphenhydramine HCl (Benadryl) 25 mg PRN Q4HRS PRN IVP ITCHING; Start 11/17/19 at 22:15 Albuterol Sulfate (Ventolin Neb Soln) 2.5 mg PRN Q4HRS PRN NEB SHORTNESS OF BREATH Last administered on 11/18/19at 01:40; Start 11/17/19 at 22:15 Guaifenesin (Robitussin) 200 mg PRN Q4HRS PRN PO COUGH; Start 11/17/19 at 22:15; Status Cancel Morphine Sulfate (Morphine Ir) 15 mg PRN Q6HRS PRN PO PAIN Last administered on 11/18/19at 12:16; Start 11/17/19 at 23:15 Insulin Human Lispro (HumaLOG) 0-7 UNITS TIDWMEALS SQ ; Start 11/18/19 at 08:00 Dextrose (Dextrose 50%-Water Syringe) 12.5 gm PRN Q15MIN PRN IV SEE COMMENTS; Start 11/17/19 at 23:15 Diphenhydramine HCl (Benadryl) 25 mg PRN Q6HRS PRN PO ITCHING Last administered on 11/18/19at 05:38; Start 11/18/19 at 05:30 Sodium Chloride 1,000 ml @ 1,000 mls/hr Q1H PRN IV hypotension; Start 11/18/19 at 08:33; Stop 11/18/19 at 14:32 Albumin Human 200 ml @ 200 mls/hr 1X PRN PRN IV Hypotension; Start 11/18/19 at 08:45; Stop 11/18/19 at 14:44 Acetaminophen (Tylenol) 500 mg 1X PRN PRN PO MILD PAIN / TEMP > 100.3'F; Start 11/18/19 at 08:45; Stop 8/25/20 at 08:44 Diphenhydramine HCl (Benadryl) 25 mg 1X PRN PRN IV ITCHING; Start 11/18/19 at 08:45; Stop 11/19/19 at 08:44 Diphenhydramine HCl (Benadryl) 25 mg 1X PRN PRN IV ITCHING; Start 11/18/19 at 08:45; Stop 11/19/19 at 08:44 Sodium Chloride (Normal Saline Flush) 10 ml 1X PRN PRN IV AP catheter pack; Start 11/18/19 at 08:45; Stop 11/19/19 at 08:44 Sodium Chloride (Normal Saline Flush) 10 ml 1X PRN PRN IV DOOR CLOSER catheter pack; Start 11/18/19 at 08:45; Stop 11/19/19 at 08:44 Sodium Chloride 1,000 ml @ 400 mls/hr Q2H30M PRN IV PATENCY; Start 11/18/19 at 08:33; Stop 11/18/19 at 20:32 Info (PHARMACY MONITORING -- do not chart) 1 each PRN DAILY PRN MC SEE COMMENTS; Start 11/18/19 at 08:45 Albuterol Sulfate (Ventolin Neb Soln) 2.5 mg PRN BID PRN INH SHORTNESS OF BREATH; Start 11/18/19 at 10:00; Status Cancel Amlodipine Besylate (Norvasc) 10 mg DAILY PO ; Start 11/18/19 at 10:00 Atorvastatin Calcium (Lipitor) 40 mg HS PO ; Start 11/18/19 at 21:00 Carvedilol (Coreg) 12.5 mg BIDWMEALS PO ; Start 11/18/19 at 17:00 Clonidine HCl (Catapres Tts-2) 1 patch WEEKLY TD ; Start 11/18/19 at 11:00 Clopidogrel Bisulfate (Plavix) 75 mg DAILYWBKFT PO ; Start 11/18/19 at 11:00 Vitamin B Complex/ Vitamin C (Pinky-Shreya) 1 tab DAILY PO ; Start 11/18/19 at 11:00 Guaifenesin (Robitussin Dm) 10 ml PRN Q6HRS PRN PO COUGH; Start 11/18/19 at 10:00 Hydralazine HCl (Apresoline) 25 mg TID PO ; Start 11/18/19 at 14:00 Lactobacillus Rhamnosus (Culturelle) 1 cap BID PO ; Start 11/18/19 at 21:00 Latanoprost (Xalatan) 1 drop HS OU ; Start 11/18/19 at 21:00 Levothyroxine Sodium (Synthroid) 50 mcg DAILY07 PO ; Start 11/19/19 at 07:00 Lisinopril (Prinivil) 20 mg DAILY PO ; Start 11/19/19 at 09:00 Ondansetron HCl (Zofran Odt) 4 mg PRN Q6HRS PRN PO NAUSEA/VOMITING 1ST CHOICE; Start 11/18/19 at 10:00 Oxycodone/ Acetaminophen (Percocet 10/325) 1 tab PRN Q4HRS PRN PO MODERATE- SEVERE PAIN; Start 11/18/19 at 10:00 Prochlorperazine Maleate (Compazine) 5 mg PRN TID PRN PO NAUSEA- 2ND CHOICE; Start 11/18/19 at 10:00 Sertraline HCl (Zoloft) 50 mg DAILY PO ; Start 11/19/19 at 09:00 Non-Formulary Medication (Acetaminophen (Tylenol)) 650 mg Q6-8HRS PRN PO PAIN; Start 11/18/19 at 10:00; Status UNV Bupropion HCl (Wellbutrin Xl) 300 mg DAILY PO ; Start 11/19/19 at 09:00 Non-Formulary Medication (Insulin Lispro (Humalog)) TIDWMEALS SQ ; Start 11/18/19 at 12:00; Status UNV Amylase/Lipase/ Protease (Zenpep 5,000) 1 cap TIDWMEALS PO ; Start 11/18/19 at 12:00 Non-Formulary Medication (Ranitidine Hcl (Zantac)) 1 tab QHS PO ; Start 11/18/19 at 21:00; Stop 11/18/19 at 10:01; Status DC Pantoprazole Sodium (Protonix) 40 mg DAILYAC PO ; Start 11/19/19 at 07:30 Active Scripts Active Percocet 10-325 Mg Tablet (Oxycodone/Acetaminophen) 1 Each Tablet 1 Tab PO PRN Q4HRS PRN Guaifenesin Dm Syrup (Guaifenesin/Dextromethorphan) 5 Ml Syrup 10 Ml PO PRN Q6HRS PRN 10 Days Carvedilol (Carvedilol) 6.25 Mg Tablet 12.5 Mg PO BIDWMEALS Hydralazine Hcl 25 Mg Tablet 25 Mg PO TID Humalog (Insulin Lispro) 100 Unit/1 Ml Insuln.pen 0 Units SQ TIDWMEALS 28 Days Culturelle (Lactobacillus Rhamnosus Gg) 1 Each Cap.sprink 1 Cap PO BID 30 Days Ondansetron Odt (Ondansetron) 4 Mg Tab.rapdis 4 Mg PO PRN Q6HRS PRN 28 Days Clopidogrel (Clopidogrel Bisulfate) 75 Mg Tablet 75 Mg PO DAILYWBKFT 30 Days Pinky-Shreya Tablet (Folic Acid/Vitamin B Comp W-C) 0.8 Mg Tablet 1 Tab PO DAILY Tylenol (Acetaminophen) 325 Mg Capsule 650 Mg PO Q6-8HRS PRN Zantac (Ranitidine Hcl) 300 Mg Tablet 1 Tab PO QHS Compazine (Prochlorperazine Maleate) 5 Mg Tablet 5 Mg PO PRN TID PRN 10 Days [Pantoprazole] 40 MG Tablet. 40 Mg PO DAILYAC 30 Days Reported Bupropion Xl (Bupropion Hcl) 300 Mg Tab.er.24h 1 Tab PO DAILYWBKFT Zoloft (Sertraline Hcl) 50 Mg Tablet 50 Mg PO DAILY Lisinopril 20 Mg Tablet 20 Mg PO DAILY Creon 6,000 Units Capsule (Lipase/Protease/Amylase) 1 Each Capsule.dr 1 Tab PO TID Proair Hfa (Albuterol Sulfate) 8.5 Gm Hfa.aer.ad 2 Puff INH BID PRN Levothyroxine Sodium 50 Mcg Tablet 1 Tab PO DAILY Clonidine Tts-2 (Clonidine) 1 Each Patch.tdwk 1 Patch TD WEEKLY Amlodipine Besylate 5 Mg Tablet 10 Mg PO DAILY Atorvastatin Calcium 40 Mg Tablet 40 Mg PO HS Latanoprost 2.5 Ml Drops 1 Drop EACHEYE HS Allergies Allergies: Coded Allergies: No Known Drug Allergies (Unverified , 02/27/19) ROS General: YES: Fatigue, Malaise PSYCHOLOGICAL ROS: YES: Depression Eyes: Yes Decreased vision ALLERGY AND IMMUNOLOGY: YES: Seasonal Allergies Respiratory: YES: Cough, Orthopnea, Shortness of breath Cardiovascular: yes Chest Pain Genitourinary: YES Other (ANURIA) Musculoskeletal: Yes Muscular Weakness Neurological: Yes Weakness Physical Exam General: Alert, Oriented X3, Cooperative, No acute distress HEENT: Atraumatic, PERRLA Lungs: Other (DECREASED AT BASES) Vitals VITALS Vital Signs Date Time Temp Pulse Resp B/P (MAP) Pulse Ox O2 Delivery O2 Flow Rate FiO2 11/18/19 12:16 98 Nasal Cannula 4.0 11/18/19 07:00 98.0 67 18 173/65 (101) 98.0 Labs Labs Laboratory Tests Test 11/17/19 20:07 11/18/19 00:15 11/18/19 08:16 11/18/19 09:45 White Blood Count 7.8 x10^3/uL (4.0-11.0) Red Blood Count 3.08 x10^6/uL (3.50-5.40) Hemoglobin 9.9 g/dL (12.0-15.5) Hematocrit 30.1 % (36.0-47.0) Mean Corpuscular Volume 98 fL (79-100) Mean Corpuscular Hemoglobin 32 pg (25-35) Mean Corpuscular Hemoglobin Concent 33 g/dL (31-37) Red Cell Distribution Width 18.6 % (11.5-14.5) Platelet Count 269 x10^3/uL (140-400) Neutrophils (%) (Auto) 74 % (31-73) Lymphocytes (%) (Auto) 15 % (24-48) Monocytes (%) (Auto) 10 % (0-9) Eosinophils (%) (Auto) 0 % (0-3) Basophils (%) (Auto) 1 % (0-3) Neutrophils # (Auto) 5.8 x10^3/uL (1.8-7.7) Lymphocytes # (Auto) 1.2 x10^3/uL (1.0-4.8) Monocytes # (Auto) 0.8 x10^3/uL (0.0-1.1) Eosinophils # (Auto) 0.0 x10^3/uL (0.0-0.7) Basophils # (Auto) 0.1 x10^3/uL (0.0-0.2) Prothrombin Time 14.8 SEC (11.7-14.0) Prothromb Time International Ratio 1.2 (0.8-1.1) Activated Partial Thromboplast Time 27 SEC (24-38) D-Dimer (Kanika) 3.17 ug/mlFEU (0.00-0.50) Sodium Level 138 mmol/L (136-145) 139 mmol/L (136-145) Potassium Level 5.6 mmol/L (3.5-5.1) 5.1 mmol/L (3.5-5.1) Chloride Level 101 mmol/L (98-107) 101 mmol/L (98-107) Carbon Dioxide Level 30 mmol/L (21-32) 31 mmol/L (21-32) Anion Gap 7 (6-14) 7 (6-14) Blood Urea Nitrogen 47 mg/dL (7-20) 43 mg/dL (7-20) Creatinine 4.9 mg/dL (0.6-1.0) 4.1 mg/dL (0.6-1.0) Estimated GFR (Cockcroft-Gault) 11.0 13.6 BUN/Creatinine Ratio 10 (6-20) 10 (6-20) Glucose Level 203 mg/dL (70-99) 134 mg/dL (70-99) Calcium Level 9.1 mg/dL (8.5-10.1) 8.5 mg/dL (8.5-10.1) Magnesium Level 2.5 mg/dL (1.8-2.4) Total Bilirubin 0.5 mg/dL (0.2-1.0) 0.4 mg/dL (0.2-1.0) Aspartate Amino Transf (AST/SGOT) 83 U/L (15-37) 121 U/L (15-37) Alanine Aminotransferase (ALT/SGPT) 94 U/L (14-59) 121 U/L (14-59) Alkaline Phosphatase 157 U/L (46-116) 140 U/L (46-116) Creatine Kinase 98 U/L (26-192) Creatine Kinase MB (Mass) 3.7 ng/mL (0.0-3.6) Creatine Kinase MB Relative Index 3.8 % (0-4) Troponin I Quantitative 0.129 ng/mL (0.000-0.055) 0.133 ng/mL (0.000-0.055) 0.127 ng/mL (0.000-0.055) FX-Uht-V-Type Natriuretic Peptide > 99335 pg/mL (0-124) Total Protein 7.6 g/dL (6.4-8.2) 5.9 g/dL (6.4-8.2) Albumin 3.4 g/dL (3.4-5.0) 2.8 g/dL (3.4-5.0) Albumin/Globulin Ratio 0.8 (1.0-1.7) 0.9 (1.0-1.7) Lipase 125 U/L (73-393) Triglycerides Level 55 mg/dL (0-150) Cholesterol Level 126 mg/dL (0-200) LDL Cholesterol, Calculated 51 mg/dL (0-100) VLDL Cholesterol, Calculated 11 mg/dL (0-40) Non-HDL Cholesterol Calculated 62 mg/dL (0-129) HDL Cholesterol 64 mg/dL (40-60) Cholesterol/HDL Ratio 2.0 Glucose (Fingerstick) 105 mg/dL (70-99) Hepatitis B Surface Antigen Nonreactive (Nonreactive) Hepatitis B Surface Antibody Nonreactive Laboratory Tests Test 11/17/19 20:07 11/18/19 00:15 11/18/19 08:16 11/18/19 09:45 White Blood Count 7.8 x10^3/uL (4.0-11.0) Red Blood Count 3.08 x10^6/uL (3.50-5.40) Hemoglobin 9.9 g/dL (12.0-15.5) Hematocrit 30.1 % (36.0-47.0) Mean Corpuscular Volume 98 fL (79-100) Mean Corpuscular Hemoglobin 32 pg (25-35) Mean Corpuscular Hemoglobin Concent 33 g/dL (31-37) Red Cell Distribution Width 18.6 % (11.5-14.5) Platelet Count 269 x10^3/uL (140-400) Neutrophils (%) (Auto) 74 % (31-73) Lymphocytes (%) (Auto) 15 % (24-48) Monocytes (%) (Auto) 10 % (0-9) Eosinophils (%) (Auto) 0 % (0-3) Basophils (%) (Auto) 1 % (0-3) Neutrophils # (Auto) 5.8 x10^3/uL (1.8-7.7) Lymphocytes # (Auto) 1.2 x10^3/uL (1.0-4.8) Monocytes # (Auto) 0.8 x10^3/uL (0.0-1.1) Eosinophils # (Auto) 0.0 x10^3/uL (0.0-0.7) Basophils # (Auto) 0.1 x10^3/uL (0.0-0.2) Prothrombin Time 14.8 SEC (11.7-14.0) Prothromb Time International Ratio 1.2 (0.8-1.1) Activated Partial Thromboplast Time 27 SEC (24-38) D-Dimer (Kanika) 3.17 ug/mlFEU (0.00-0.50) Sodium Level 138 mmol/L (136-145) 139 mmol/L (136-145) Potassium Level 5.6 mmol/L (3.5-5.1) 5.1 mmol/L (3.5-5.1) Chloride Level 101 mmol/L (98-107) 101 mmol/L (98-107) Carbon Dioxide Level 30 mmol/L (21-32) 31 mmol/L (21-32) Anion Gap 7 (6-14) 7 (6-14) Blood Urea Nitrogen 47 mg/dL (7-20) 43 mg/dL (7-20) Creatinine 4.9 mg/dL (0.6-1.0) 4.1 mg/dL (0.6-1.0) Estimated GFR (Cockcroft-Gault) 11.0 13.6 BUN/Creatinine Ratio 10 (6-20) 10 (6-20) Glucose Level 203 mg/dL (70-99) 134 mg/dL (70-99) Calcium Level 9.1 mg/dL (8.5-10.1) 8.5 mg/dL (8.5-10.1) Magnesium Level 2.5 mg/dL (1.8-2.4) Total Bilirubin 0.5 mg/dL (0.2-1.0) 0.4 mg/dL (0.2-1.0) Aspartate Amino Transf (AST/SGOT) 83 U/L (15-37) 121 U/L (15-37) Alanine Aminotransferase (ALT/SGPT) 94 U/L (14-59) 121 U/L (14-59) Alkaline Phosphatase 157 U/L (46-116) 140 U/L (46-116) Creatine Kinase 98 U/L (26-192) Creatine Kinase MB (Mass) 3.7 ng/mL (0.0-3.6) Creatine Kinase MB Relative Index 3.8 % (0-4) Troponin I Quantitative 0.129 ng/mL (0.000-0.055) 0.133 ng/mL (0.000-0.055) 0.127 ng/mL (0.000-0.055) IA-Qsl-Q-Type Natriuretic Peptide > 79132 pg/mL (0-124) Total Protein 7.6 g/dL (6.4-8.2) 5.9 g/dL (6.4-8.2) Albumin 3.4 g/dL (3.4-5.0) 2.8 g/dL (3.4-5.0) Albumin/Globulin Ratio 0.8 (1.0-1.7) 0.9 (1.0-1.7) Lipase 125 U/L (73-393) Triglycerides Level 55 mg/dL (0-150) Cholesterol Level 126 mg/dL (0-200) LDL Cholesterol, Calculated 51 mg/dL (0-100) VLDL Cholesterol, Calculated 11 mg/dL (0-40) Non-HDL Cholesterol Calculated 62 mg/dL (0-129) HDL Cholesterol 64 mg/dL (40-60) Cholesterol/HDL Ratio 2.0 Glucose (Fingerstick) 105 mg/dL (70-99) Hepatitis B Surface Antigen Nonreactive (Nonreactive) Hepatitis B Surface Antibody Nonreactive Assessment/Plan Assessment/Plan IMP CHEST PAIN ACUTE ON CHRONIC DIASTOLIC CHF POORLY CONTROLLED HTN ANEMIA OF ESRD NON COMPLIANCE ESRD DM II PLAN CARDIOLOGY EVAL ALRIN WHEN NEEDED HD TODAY UF TO DW WILL FOLLOW ENC COMPLIANCE BENY PAINTER MD Nov 18, 2019 13:07
[2019-11-18] MEDS: hydrALAZINE 25 MG TABLET PO SCH ×2 (14:01→20:42)
[2019-11-18] MEDS: CLOPIDOGREL BISULFATE 75 MG TABLET PO SCH (14:01)
[2019-11-18] MEDS: FOLIC/VIT B COMP W-C (RENAL) TABLET. PO SCH (14:01)
[2019-11-18] MEDS: amLODIPine BESYLATE 10 MG TABLET PO SCH (14:03)
[2019-11-18 14:48] VITALS: BP 173/66
--- NOTE | 2019-11-18 15:16 | NUR ---
SS following for discharge planning. SS reviewed pt chart and discussed with pt RN. Pt is from home and is currently requiring oxygen. Pt has HCBS services at home for caregiving. Pt has outpatient dialysis at [facility], ; fax [phone], Monday, Monday, and Monday. PT/OT ordered. SS will continue to follow for discharge planning.
--- NOTE | 2019-11-18 15:28 | PDOC1 ---
History and Physical Date of Admission Date of Admission 07/23/2019 Identification/Chief Complaint Chief Complaint Shortness of breath Source Source: Chart review, Patient History of Present Illness History of Present Illness Patient is a 59 year old female well known to our service with multiple medical comorbidities. who has visited our institution on more than 10 ocassions this year alone, she has a long standing history of non adherence to tredatment plan she has had multiple instances where she misses dialysis and has had amputations this year due to gangrene and osteomyelitis. The night of her evaluation in the ER she gave a history of several days of feeling short of breath, she denies dietary transgressions and says she has been taking her medications. She denies COVId 19 suspected symptoms. NO fever or chills, she was found to have a mildly elevated troponin, she denies chest pain, report of an elevated bnp was given as well which is not uncommon in patients with commorbidities like mrs Salazar. She is in no apparent distress being evaluated while being in dialysis, she is in no acute distress, there does not seem to be increased work of breathing, no chest pain palpitatiions nausea vomiting or diarrhera reported. Er history : Past Medical History Past Medical History Past Medical History: A-Fib, Anemia, Anxiety, Arthritis, Asthma, Bronchitis, CHF, COPD, Depression, Diabetes-Type II, GERD, High Cholesterol, Hypertension, Hypothyroid, Renal Disease Additional Past Medical Histor: neuropathy, cataracts,CHRONIC PAIN,ESRD,PNEUMONIA,SLEEP APNEA Past Surgical History: Appendectomy, Cholecystectomy, Hysterectomy, Other Additional Past Surgical Histo: bilateral bka, shunt, hysterectomy; RIGHT HAND MIDDLE FINGER AMPUTATION Smoking Status: Current Every Day Smoker Alcohol Use: None Drug Use: None General Adult General Adult EDM: Chief Complaint: LOWER EXT PAIN HPI: HPI: Patient is a 59 year old AA female who presents to the emergency department with complaints of chest pain, and shortness of breath with exertion for the last 5 days. She denies any known exposure to COVID-19. She denies any fever, cough, sore throat, rash, nausea, vomiting, diarrhea, or abdominal pain. She also complains of bilateral lower leg stump pain. Patient states she is out of her home medication for pain. She currently rates the pain a 10 out of 10 on the pain scale, she denies any alleviating or exacerbating factors. Past Medical History Cardiovascular: CHF, HTN, Hyperlipidemia Pulmonary: Asthma, COPD CENTRAL NERVOUS SYSTEM: Periperal neuropathy GI: GERD Heme/Onc: Anemia NOS Hepatobiliary: No pertinent hx Psych: Bipolar, Depression Rheumatologic: Fibromyalgia Infectious disease: No pertinent hx Renal/: Chronic renal failure (ESRD on HD) Endocrine: Diabetes, Hypothyroidism, Hyperparathyroidism Past Surgical History Past Surgical History: Hysterectomy, Other (bilateral BKA ) Family History Family History: Heart Disease, High Cholestrol, Hypertension Social History Smoke: No ALCOHOL: none Drugs: None Current Problem List Problem List Problems Medical Problems: (1) CKD (chronic kidney disease) Status: Chronic (2) Elevated d-dimer Status: Acute (3) Hypertension Status: Acute (4) Shortness of breath Status: Acute Current Medications Current Medications Current Medications Medications (Trade) Dose Ordered Sig/Clarence Start Time Stop Time Status Last Admin Dose Admin Acetaminophen (Tylenol) 500 mg 1X PRN PRN 11/18/19 08:45 11/19/19 08:44 Al Hydroxide/Mg Hydroxide (Mylanta Plus Xs) 30 ml PRN DAILY PRN 11/17/19 22:15 Albumin Human 200 ml @ 200 mls/hr 1X PRN PRN 11/18/19 08:45 11/18/19 14:44 DC Albuterol Sulfate (Ventolin Neb Soln) 2.5 mg PRN BID PRN 11/18/19 10:00 Cancel Amlodipine Besylate (Norvasc) 10 mg DAILY 11/18/19 10:00 11/18/19 14:03 10 MG Amylase/Lipase/ Protease (Zenpep 5,000) 1 cap TIDWMEALS 11/18/19 12:00 11/18/19 14:03 1 CAP Atorvastatin Calcium (Lipitor) 40 mg HS 11/18/19 21:00 Bupropion HCl (Wellbutrin Xl) 300 mg DAILY 11/19/19 09:00 Carvedilol (Coreg) 12.5 mg BIDWMEALS 11/18/19 17:00 Clonidine HCl (Catapres Tts-2) 1 patch WEEKLY 11/18/19 11:00 11/18/19 14:04 1 PATCH Clonidine HCl (Catapres) 0.1 mg PRN Q6HRS PRN 11/17/19 22:15 Clopidogrel Bisulfate (Plavix) 75 mg DAILYWBKFT 11/18/19 11:00 11/18/19 14:01 75 MG Darbepoetin Jarrett (ARANESP for DIALYSIS PTS) 60 mcg WEEKLYHS 11/18/19 21:00 Dextrose (Dextrose 50%-Water Syringe) 12.5 gm PRN Q15MIN PRN 11/17/19 23:15 Diphenhydramine HCl (Benadryl) 25 mg 1X PRN PRN 11/18/19 08:45 11/19/19 08:44 Guaifenesin (Robitussin Dm) 10 ml PRN Q6HRS PRN 11/18/19 10:00 Guaifenesin (Robitussin) 200 mg PRN Q4HRS PRN 11/17/19 22:15 Cancel Hydralazine HCl (Apresoline) 25 mg TID 11/18/19 14:00 11/18/19 14:01 25 MG Info (PHARMACY MONITORING -- do not chart) 1 each PRN DAILY PRN 11/18/19 08:45 Insulin Human Lispro (HumaLOG) 0-7 UNITS TIDWMEALS 11/18/19 08:00 Lactobacillus Rhamnosus (Culturelle) 1 cap BID 11/18/19 21:00 Latanoprost (Xalatan) 1 drop HS 11/18/19 21:00 Levothyroxine Sodium (Synthroid) 50 mcg DAILY07 11/19/19 07:00 Lisinopril (Prinivil) 20 mg DAILY 11/19/19 09:00 Morphine Sulfate (Morphine Ir) 15 mg PRN Q6HRS PRN 11/17/19 23:15 11/18/19 12:16 15 MG Non-Formulary Medication (Acetaminophen (Tylenol)) 650 mg Q6-8HRS PRN 11/18/19 10:00 UNV Non-Formulary Medication (Insulin Lispro (Humalog)) TIDWMEALS 11/18/19 12:00 UNV Non-Formulary Medication (Ranitidine Hcl (Zantac)) 1 tab QHS 11/18/19 21:00 11/18/19 10:01 DC Ondansetron HCl (Zofran Odt) 4 mg PRN Q6HRS PRN 11/18/19 10:00 Ondansetron HCl (Zofran) 4 mg PRN Q4HRS PRN 11/17/19 22:15 Oxycodone/ Acetaminophen (Percocet 10/325) 1 tab PRN Q4HRS PRN 11/18/19 10:00 Pantoprazole Sodium (Protonix) 40 mg DAILYAC 11/19/19 07:30 Prochlorperazine Maleate (Compazine) 5 mg PRN TID PRN 11/18/19 10:00 Sertraline HCl (Zoloft) 50 mg DAILY 11/19/19 09:00 Sodium Chloride 1,000 ml @ 400 mls/hr Q2H30M PRN 11/18/19 08:33 11/18/19 20:32 Sodium Chloride (Normal Saline Flush) 10 ml 1X PRN PRN 11/18/19 08:45 11/19/19 08:44 Vitamin B Complex/ Vitamin C (Pinky-Shreya) 1 tab DAILY 11/18/19 11:00 11/18/19 14:01 1 TAB Zolpidem Tartrate (Ambien) 5 mg PRN QHS PRN 11/17/19 22:15 Allergies Allergies Allergies Coded Allergies Type Severity Reaction Last Updated Verified No Known Drug Allergies 02/27/19 No ROS Review of System CONSTITUTIONAL: No fever or chills EYES: No recent changes SKIN: No rash or itching CARDIOVASCULAR: No chest pain, syncope, palpitations, or edema RESPIRATORY: No SOB or cough GASTROINTESTINAL: No nausea, vomiting or abdominal pain NEUROLOGICAL: No headaches or weakness ENDOCRINE: No cold or heat intolerance GENITOURINARY: No urgency or frequency of urination MUSCULOSKELETAL: No back pain or joint pain LYMPHATICS: No enlarged lymph nodes PSYCHIATRIC: No anxiety or depression Physical Exam Physical Exam Physical Exam GENERAL: Propped up in bed, somnolent HEENT: Oral cavity pink. No lesions seen NECK: Supple. LUNGS: Decreased breath sounds at the bases, nonlabored. HEART: S1, S2. regular ABDOMEN: Obese, soft, nontender, bowel sounds present. GENITOURINARY: No Calvillo. EXTREMITIES: Bilateral BKA stump healthy, Right 2nd amputation well- approx/sutures, clean SKIN: No signs of rash. warm to touch. (Right upper extremity finger amputation site is clean, dry, and intact.) NEUROLOGIC: Alert, answering questions appropriately Vitals Vitals Vital Signs Date Time Temp Pulse Resp B/P (MAP) Pulse Ox O2 Delivery O2 Flow Rate FiO2 11/18/19 14:48 97.5 79 20 173/66 (101) Nasal Cannula 4.0 97.5 11/18/19 13:16 98 Labs Labs Laboratory Tests Test 11/17/19 20:07 11/18/19 00:15 11/18/19 08:16 11/18/19 09:45 White Blood Count 7.8 x10^3/uL (4.0-11.0) Red Blood Count 3.08 x10^6/uL (3.50-5.40) Hemoglobin 9.9 g/dL (12.0-15.5) Hematocrit 30.1 % (36.0-47.0) Mean Corpuscular Volume 98 fL (79-100) Mean Corpuscular Hemoglobin 32 pg (25-35) Mean Corpuscular Hemoglobin Concent 33 g/dL (31-37) Red Cell Distribution Width 18.6 % (11.5-14.5) Platelet Count 269 x10^3/uL (140-400) Neutrophils (%) (Auto) 74 % (31-73) Lymphocytes (%) (Auto) 15 % (24-48) Monocytes (%) (Auto) 10 % (0-9) Eosinophils (%) (Auto) 0 % (0-3) Basophils (%) (Auto) 1 % (0-3) Neutrophils # (Auto) 5.8 x10^3/uL (1.8-7.7) Lymphocytes # (Auto) 1.2 x10^3/uL (1.0-4.8) Monocytes # (Auto) 0.8 x10^3/uL (0.0-1.1) Eosinophils # (Auto) 0.0 x10^3/uL (0.0-0.7) Basophils # (Auto) 0.1 x10^3/uL (0.0-0.2) Prothrombin Time 14.8 SEC (11.7-14.0) Prothromb Time International Ratio 1.2 (0.8-1.1) Activated Partial Thromboplast Time 27 SEC (24-38) D-Dimer (Kanika) 3.17 ug/mlFEU (0.00-0.50) Sodium Level 138 mmol/L (136-145) 139 mmol/L (136-145) Potassium Level 5.6 mmol/L (3.5-5.1) 5.1 mmol/L (3.5-5.1) Chloride Level 101 mmol/L (98-107) 101 mmol/L (98-107) Carbon Dioxide Level 30 mmol/L (21-32) 31 mmol/L (21-32) Anion Gap 7 (6-14) 7 (6-14) Blood Urea Nitrogen 47 mg/dL (7-20) 43 mg/dL (7-20) Creatinine 4.9 mg/dL (0.6-1.0) 4.1 mg/dL (0.6-1.0) Estimated GFR (Cockcroft-Gault) 11.0 13.6 BUN/Creatinine Ratio 10 (6-20) 10 (6-20) Glucose Level 203 mg/dL (70-99) 134 mg/dL (70-99) Calcium Level 9.1 mg/dL (8.5-10.1) 8.5 mg/dL (8.5-10.1) Magnesium Level 2.5 mg/dL (1.8-2.4) Total Bilirubin 0.5 mg/dL (0.2-1.0) 0.4 mg/dL (0.2-1.0) Aspartate Amino Transf (AST/SGOT) 83 U/L (15-37) 121 U/L (15-37) Alanine Aminotransferase (ALT/SGPT) 94 U/L (14-59) 121 U/L (14-59) Alkaline Phosphatase 157 U/L (46-116) 140 U/L (46-116) Creatine Kinase 98 U/L (26-192) Creatine Kinase MB (Mass) 3.7 ng/mL (0.0-3.6) Creatine Kinase MB Relative Index 3.8 % (0-4) Troponin I Quantitative 0.129 ng/mL (0.000-0.055) 0.133 ng/mL (0.000-0.055) 0.127 ng/mL (0.000-0.055) YB-Lbk-I-Type Natriuretic Peptide > 90810 pg/mL (0-124) Total Protein 7.6 g/dL (6.4-8.2) 5.9 g/dL (6.4-8.2) Albumin 3.4 g/dL (3.4-5.0) 2.8 g/dL (3.4-5.0) Albumin/Globulin Ratio 0.8 (1.0-1.7) 0.9 (1.0-1.7) Lipase 125 U/L (73-393) Triglycerides Level 55 mg/dL (0-150) Cholesterol Level 126 mg/dL (0-200) LDL Cholesterol, Calculated 51 mg/dL (0-100) VLDL Cholesterol, Calculated 11 mg/dL (0-40) Non-HDL Cholesterol Calculated 62 mg/dL (0-129) HDL Cholesterol 64 mg/dL (40-60) Cholesterol/HDL Ratio 2.0 Glucose (Fingerstick) 105 mg/dL (70-99) Hepatitis B Surface Antigen Nonreactive (Nonreactive) Hepatitis B Surface Antibody Nonreactive Test 11/18/19 13:47 Glucose (Fingerstick) 63 mg/dL (70-99) Laboratory Tests Test 11/17/19 20:07 11/18/19 00:15 11/18/19 08:16 11/18/19 09:45 White Blood Count 7.8 x10^3/uL (4.0-11.0) Red Blood Count 3.08 x10^6/uL (3.50-5.40) Hemoglobin 9.9 g/dL (12.0-15.5) Hematocrit 30.1 % (36.0-47.0) Mean Corpuscular Volume 98 fL (79-100) Mean Corpuscular Hemoglobin 32 pg (25-35) Mean Corpuscular Hemoglobin Concent 33 g/dL (31-37) Red Cell Distribution Width 18.6 % (11.5-14.5) Platelet Count 269 x10^3/uL (140-400) Neutrophils (%) (Auto) 74 % (31-73) Lymphocytes (%) (Auto) 15 % (24-48) Monocytes (%) (Auto) 10 % (0-9) Eosinophils (%) (Auto) 0 % (0-3) Basophils (%) (Auto) 1 % (0-3) Neutrophils # (Auto) 5.8 x10^3/uL (1.8-7.7) Lymphocytes # (Auto) 1.2 x10^3/uL (1.0-4.8) Monocytes # (Auto) 0.8 x10^3/uL (0.0-1.1) Eosinophils # (Auto) 0.0 x10^3/uL (0.0-0.7) Basophils # (Auto) 0.1 x10^3/uL (0.0-0.2) Prothrombin Time 14.8 SEC (11.7-14.0) Prothromb Time International Ratio 1.2 (0.8-1.1) Activated Partial Thromboplast Time 27 SEC (24-38) D-Dimer (Kanika) 3.17 ug/mlFEU (0.00-0.50) Sodium Level 138 mmol/L (136-145) 139 mmol/L (136-145) Potassium Level 5.6 mmol/L (3.5-5.1) 5.1 mmol/L (3.5-5.1) Chloride Level 101 mmol/L (98-107) 101 mmol/L (98-107) Carbon Dioxide Level 30 mmol/L (21-32) 31 mmol/L (21-32) Anion Gap 7 (6-14) 7 (6-14) Blood Urea Nitrogen 47 mg/dL (7-20) 43 mg/dL (7-20) Creatinine 4.9 mg/dL (0.6-1.0) 4.1 mg/dL (0.6-1.0) Estimated GFR (Cockcroft-Gault) 11.0 13.6 BUN/Creatinine Ratio 10 (6-20) 10 (6-20) Glucose Level 203 mg/dL (70-99) 134 mg/dL (70-99) Calcium Level 9.1 mg/dL (8.5-10.1) 8.5 mg/dL (8.5-10.1) Magnesium Level 2.5 mg/dL (1.8-2.4) Total Bilirubin 0.5 mg/dL (0.2-1.0) 0.4 mg/dL (0.2-1.0) Aspartate Amino Transf (AST/SGOT) 83 U/L (15-37) 121 U/L (15-37) Alanine Aminotransferase (ALT/SGPT) 94 U/L (14-59) 121 U/L (14-59) Alkaline Phosphatase 157 U/L (46-116) 140 U/L (46-116) Creatine Kinase 98 U/L (26-192) Creatine Kinase MB (Mass) 3.7 ng/mL (0.0-3.6) Creatine Kinase MB Relative Index 3.8 % (0-4) Troponin I Quantitative 0.129 ng/mL (0.000-0.055) 0.133 ng/mL (0.000-0.055) 0.127 ng/mL (0.000-0.055) DU-Dqo-J-Type Natriuretic Peptide > 85902 pg/mL (0-124) Total Protein 7.6 g/dL (6.4-8.2) 5.9 g/dL (6.4-8.2) Albumin 3.4 g/dL (3.4-5.0) 2.8 g/dL (3.4-5.0) Albumin/Globulin Ratio 0.8 (1.0-1.7) 0.9 (1.0-1.7) Lipase 125 U/L (73-393) Triglycerides Level 55 mg/dL (0-150) Cholesterol Level 126 mg/dL (0-200) LDL Cholesterol, Calculated 51 mg/dL (0-100) VLDL Cholesterol, Calculated 11 mg/dL (0-40) Non-HDL Cholesterol Calculated 62 mg/dL (0-129) HDL Cholesterol 64 mg/dL (40-60) Cholesterol/HDL Ratio 2.0 Glucose (Fingerstick) 105 mg/dL (70-99) Hepatitis B Surface Antigen Nonreactive (Nonreactive) Hepatitis B Surface Antibody Nonreactive Test 11/18/19 13:47 Glucose (Fingerstick) 63 mg/dL (70-99) VTE Prophylaxis Ordered VTE Prophylaxis Devices: No VTE Pharmacological Prophylaxi: Yes Assessment/Plan Assessment/Plan Elevated troponin of no clinical significance and asymptomatic Elevated BNP chronic, difficult to assess correlation clincally, patient not in overt failure History of Partial amputation of the right third finger done in a closed fashion at the level of the middle phalange on 09/25/2019 Right middle finger pain - dry gangrene ESRD - [facility]. Fistula functioning again now. She is very intermittently compliant. Acute on chronic diastolic CHF - with elevated BNP Accelerated HTN: labile Anasarca Noncompliance: missed dialysis, no transport. Suspect missed meds as well. Hx of severe LE PAD - S/P bilateral BKA. more recent to left leg, incision intact Debility HX NONCOMPLIANCE Anxiety Chronic back pain Chronic anemia Elevated liver function tests Depression sec to med illness History of diabetes mellitus type 2 History of hypothyroidism Chronic pain syndrome History of bilateral BKA Plan: consult cardiology for recommendations resume home medications further recommendations based on clincal course. JASPAL RAMOS MD Nov 18, 2019 15:28
[2019-11-18] MEDS ORDERED: MORPHINE SULFATE 20 MG/ML CONC SOLUTION. SL PRN (15:45)
[2019-11-18] MEDS: CARVEDILOL 6.25 MG TABLET. PO SCH (17:26)
[2019-11-18] MEDS ORDERED: POLYVINYL ALCOHOL 1.4% OPHTH SOLUTION 15ML BOTTLE. OU PRN (19:45)
[2019-11-18 19:50] VITALS: BP 163/46
[2019-11-18] MEDS: LACTOBACILLUS RHAMNOSUS GG 1 CAPSULE. PO SCH (20:42)
[2019-11-18] MEDS ORDERED: LATANOPROST 0.005% OPHTH SOLUTION 2.5ML BOTTLE. OU SCH (21:00)
[2019-11-18] MEDS ORDERED: ATORVASTATIN CALCIUM 40 MG TABLET. PO SCH (21:00)
[2019-11-18] MEDS ORDERED: DARBEPOETIN ALFA 60 MCG/0.3 ML DISP.SYRIN. SQ SCH (21:00)
[2019-11-18] MEDS ORDERED: NON FORMULARY ITEM (Ranitidine Hcl (Zantac) 1 TAB) PO SCH (21:00)
[2019-11-18 23:15] VITALS: BP 140/33
[2019-11-19 03:45] VITALS: BP 165/43
[2019-11-19 07:00] VITALS: BP 147/37
[2019-11-19] MEDS ORDERED: LEVOTHYROXINE 50 MCG TABLET PO SCH (07:00)
[2019-11-19] MEDS ORDERED: PANTOPRAZOLE 40 MG TABLET.DR. PO SCH (07:30)
[2019-11-19] MEDS: INSULIN LISPRO 300 UNITS/3 ML VIAL. SQ SCH ×2 (08:00→12:52)
[2019-11-19] MEDS ORDERED: LISINOPRIL 20 MG TABLET PO SCH (09:00)
[2019-11-19] MEDS ORDERED: SERTRALINE 50 MG TABLET. PO SCH (09:00)
[2019-11-19] MEDS ORDERED: buPROPion XL 150 MG TAB.ER.24H. PO SCH (09:00)
[2019-11-19] MEDS: diphenhydrAMINE HCL 25 MG CAPSULE PO PRN (09:35)
[2019-11-19] MEDS: LACTOBACILLUS RHAMNOSUS GG 1 CAPSULE. PO SCH (09:38)
[2019-11-19] MEDS: CARVEDILOL 6.25 MG TABLET. PO SCH (09:40)
[2019-11-19] MEDS: amLODIPine BESYLATE 10 MG TABLET PO SCH (09:41)
[2019-11-19] MEDS: hydrALAZINE 25 MG TABLET PO SCH ×2 (09:41→12:47)
[2019-11-19] MEDS: CLOPIDOGREL BISULFATE 75 MG TABLET PO SCH (09:41)
[2019-11-19] MEDS: FOLIC/VIT B COMP W-C (RENAL) TABLET. PO SCH (09:42)
[2019-11-19 11:00] VITALS: BP 153/45
--- NOTE | 2019-11-19 11:31 | NUR ---
SS following up with discharge planning. SS reviewed pt chart and discussed with pt RN. Pt is currently requiring oxygen. Pt has home oxygen at home. Discharge orders received for home with self care. SS spoke with Angelica at [facility] and [facility] Medicaid shoe caser, Manuela. SS discussed with LTC placement with pt and pt refusing to go to LTC facility. Pt reported that she will return to [place]. Pt reported that she will not smoke with her oxygen. Angelica and Manuela notified. Pt will discharge today between 1300 and 1400 with [facility] transportation. SS phoned and faxed updated clinical to [facility], ; fax [phone]. Pt's RN notified.
[2019-11-19 12:47] VITALS: BP 147/37
[2019-11-19] MEDS: MORPHINE IR 15 MG TABLET PO PRN (12:55)
--- NOTE | 2019-11-19 13:31 | PDOC ---
Renal-Progress Notes Subjective Notes Notes NO NEW COMPLAINTS History of Present Illness Hx of present illness STABLE Vitals Vitals Vital Signs Date Time Temp Pulse Resp B/P (MAP) Pulse Ox O2 Delivery O2 Flow Rate FiO2 11/19/19 12:55 18 Nasal Cannula 3.0 11/19/19 12:47 72 147/37 11/19/19 11:00 97.8 96 97.8 Weight Weight [ ] I.O. Intake and Output Intake and Output 11/19/19 07:00 Intake Total 1160 ml Balance 1160 ml Intake Oral 1160 ml Labs Labs Laboratory Tests Test 11/18/19 13:47 11/18/19 15:35 11/18/19 16:31 11/19/19 07:23 Glucose (Fingerstick) 63 mg/dL (70-99) 176 mg/dL (70-99) 124 mg/dL (70-99) Troponin I Quantitative 0.130 ng/mL (0.000-0.055) Test 11/19/19 11:41 Glucose (Fingerstick) 172 mg/dL (70-99) Review of Systems Constitutional: yes: alert, oriented Ears/Nose/Throat: Yes: no symptom reported Eyes: Yes: no symptom reported Pulmonary: Yes dyspnea Cardiovascular: Yes no symptom reported Gastrointestional: Yes: no symptom reported Genitourinary: Yes: no symptom reported Musculoskeletal: Yes: no symptom reported Skin: Yes no symptom reported Psychiatric/Neurological: Yes: no symptom reported Physical Exam General Appearance: no apparent distress Skin: warm Respiratory: decreased breath sounds Heart: S1S2 Abdomen: soft, bowel sounds present Genitourinary: bladder flat Extremities: pulses present Neurology: alert Musculoskeletal: Osteoarthritis Assessment Assessment IMP CHEST PAIN ACUTE ON CHRONIC DIASTOLIC CHF POORLY CONTROLLED HTN-VOLUME DEPENDENT ANEMIA OF ESRD NON COMPLIANCE ESRD DM II PLAN CARDIOLOGY EVAL ARLIN WHEN NEEDED HD TOMORROW WILL FOLLOW ENC COMPLIANCE BENY PAINTER MD Nov 19, 2019 13:31
--- NOTE | 2019-11-19 13:45 | NUR ---
Discharge instructions given to patient regarding following up with her primary care physician. Education given regarding CP, SOB and compliance with medication and dialysis. Pt verbalizes understanding.
--- NOTE | 2019-11-19 13:56 | PDOC ---
ALLISON NASCIMENTO TUBE HANDLER 11/19/19 1356: CARDIO Progress Notes Date and Time Date of Service 11/19/2019 Time of Evaluation 1330 Subjective Subjective: No Chest Pain, No shortness of breath, No Palpitations Vitals Vitals Vital Signs Date Time Temp Pulse Resp B/P (MAP) Pulse Ox O2 Delivery O2 Flow Rate FiO2 11/19/19 12:55 18 Nasal Cannula 3.0 11/19/19 12:47 72 147/37 11/19/19 11:00 97.8 96 97.8 Weight Weight [ ] Input and Output Intake and Output Intake and Output 11/19/19 07:00 Intake Total 1160 ml Balance 1160 ml Intake Oral 1160 ml Laboratory Labs Laboratory Tests Test 11/18/19 15:35 11/18/19 16:31 11/19/19 07:23 11/19/19 11:41 Troponin I Quantitative 0.130 ng/mL (0.000-0.055) Glucose (Fingerstick) 176 mg/dL (70-99) 124 mg/dL (70-99) 172 mg/dL (70-99) Review of Systems Constitutional: yes: alert, oriented Ears/Nose/Throat: Yes: no symptom reported Eyes: Yes: no symptom reported Pulmonary: Yes dyspnea Cardiovascular: Yes no symptom reported Gastrointestional: Yes: no symptom reported Genitourinary: Yes: no symptom reported Musculoskeletal: Yes: no symptom reported Skin: Yes no symptom reported Psychiatric/Neurological: Yes: no symptom reported Physical Exam HEENT: Neck Supple W Full Motion Chest: Symmetric LUNGS: Clear to Auscultation Heart: S1S2, RRR (SR) Abdomen: Soft N/T Extremities: Other (bilateral BKA) Neurology: alert, oriented, follow commands Assessment Assessment 1. Acute on chronic diastolic CHF in setting of missed HD. Now compensated 2. Atypical CP: possibly from high BP 3. Mild troponin elevation; highest 0.133. Most probably type II, demand ischemia 4. ESRD on HD 5. Hypertensive urgency; better controlled 6. Hyperlipidemia; statin 7. Diabetes, II; as per IM 8. Hypothyroidism; levothyroxine per PCP 9. PAD s/p bilateral BKA 10. Noncompliance Recommendations 1. Discussed compliance. Will consider for outpt MPI 2. Secondary prevention measures. ASA/statin, continue BP regimen 3. Fluid off loading per HD 3. Has a broken WC. Consult SS. TTE pending Justicifation of Admission Dx: Justifications for Admission: Justification of Admission Dx: Yes Chronic Renal Failure: Hypertension RILEY WHITE MD 11/19/19 1422: CARDIO Progress Notes Assessment Assessment Patient seen and examined. Agree with VISUAL AID EXPERT's assessment and plan. Slight trop elevation prob demand ischemia Doubt ACS. Check 2D echo to rule out WMA. We will consider outpatient ischemic evaluation Continue fluid removal with HD per nephrology team for acute on chr diast HF BP better controlled ALLISON NASCIMENTO APRN Nov 19, 2019 13:56 RILEY WHITE MD Nov 19, 2019 14:22
--- NOTE | 2019-11-19 15:06 | PDOC3 ---
Discharge Summary Visit Information Date of Admission: Nov 18, 2019 Date of Discharge: Nov 19, 2019 Admitting Diagnosis Comment: Assessment/Plan Elevated troponin of no clinical significance and asymptomatic Elevated BNP chronic, difficult to assess correlation clincally, patient not in overt failure History of Partial amputation of the right third finger done in a closed fashion at the level of the middle phalange on 09/25/2019 Right middle finger pain - dry gangrene ESRD - [facility] patient. Fistula functioning again now. She is very intermittently compliant. Acute on chronic diastolic CHF - with elevated BNP Accelerated HTN: labile Anasarca Noncompliance: missed dialysis, no transport. Suspect missed meds as well. Hx of severe LE PAD - S/P bilateral BKA. more recent to left leg, incision intact Debility HX NONCOMPLIANCE Anxiety Chronic back pain Chronic anemia Elevated liver function tests Depression sec to med illness History of diabetes mellitus type 2 History of hypothyroidism Chronic pain syndrome History of bilateral BKA Final Diagnosis Problems Medical Problems: (1) CKD (chronic kidney disease) Status: Chronic (2) Elevated d-dimer Status: Acute (3) Hypertension Status: Acute (4) Shortness of breath Status: Acute Assessment/Plan Elevated troponin of no clinical significance and asymptomatic Elevated BNP chronic, difficult to assess correlation clincally, patient not in overt failure History of Partial amputation of the right third finger done in a closed fashion at the level of the middle phalange on 09/25/2019 Right middle finger pain - dry gangrene ESRD - [facility]WF [facility] patient. Fistula functioning again now. She is very intermittently compliant. Acute on chronic diastolic CHF - with elevated BNP Accelerated HTN: labile Anasarca Noncompliance: missed dialysis, no transport. Suspect missed meds as well. Hx of severe LE PAD - S/P bilateral BKA. more recent to left leg, incision intact Debility HX NONCOMPLIANCE Anxiety Chronic back pain Chronic anemia Elevated liver function tests Depression sec to med illness History of diabetes mellitus type 2 History of hypothyroidism Chronic pain syndrome History of bilateral BKA Brief Hospital Course Allergies Allergies Coded Allergies Type Severity Reaction Last Updated Verified No Known Drug Allergies 02/27/19 No Vital Signs Vital Signs Date Time Temp Pulse Resp B/P (MAP) Pulse Ox O2 Delivery O2 Flow Rate FiO2 11/19/19 12:55 18 Nasal Cannula 3.0 11/19/19 12:47 72 147/37 11/19/19 11:00 97.8 96 97.8 Lab Results Laboratory Tests Test 11/17/19 20:07 11/18/19 00:15 11/18/19 08:16 11/18/19 09:45 White Blood Count 7.8 x10^3/uL (4.0-11.0) Red Blood Count 3.08 x10^6/uL (3.50-5.40) Hemoglobin 9.9 g/dL (12.0-15.5) Hematocrit 30.1 % (36.0-47.0) Mean Corpuscular Volume 98 fL (79-100) Mean Corpuscular Hemoglobin 32 pg (25-35) Mean Corpuscular Hemoglobin Concent 33 g/dL (31-37) Red Cell Distribution Width 18.6 % (11.5-14.5) Platelet Count 269 x10^3/uL (140-400) Neutrophils (%) (Auto) 74 % (31-73) Lymphocytes (%) (Auto) 15 % (24-48) Monocytes (%) (Auto) 10 % (0-9) Eosinophils (%) (Auto) 0 % (0-3) Basophils (%) (Auto) 1 % (0-3) Neutrophils # (Auto) 5.8 x10^3/uL (1.8-7.7) Lymphocytes # (Auto) 1.2 x10^3/uL (1.0-4.8) Monocytes # (Auto) 0.8 x10^3/uL (0.0-1.1) Eosinophils # (Auto) 0.0 x10^3/uL (0.0-0.7) Basophils # (Auto) 0.1 x10^3/uL (0.0-0.2) Prothrombin Time 14.8 SEC (11.7-14.0) Prothromb Time International Ratio 1.2 (0.8-1.1) Activated Partial Thromboplast Time 27 SEC (24-38) D-Dimer (Kanika) 3.17 ug/mlFEU (0.00-0.50) Sodium Level 138 mmol/L (136-145) 139 mmol/L (136-145) Potassium Level 5.6 mmol/L (3.5-5.1) 5.1 mmol/L (3.5-5.1) Chloride Level 101 mmol/L (98-107) 101 mmol/L (98-107) Carbon Dioxide Level 30 mmol/L (21-32) 31 mmol/L (21-32) Anion Gap 7 (6-14) 7 (6-14) Blood Urea Nitrogen 47 mg/dL (7-20) 43 mg/dL (7-20) Creatinine 4.9 mg/dL (0.6-1.0) 4.1 mg/dL (0.6-1.0) Estimated GFR (Cockcroft-Gault) 11.0 13.6 BUN/Creatinine Ratio 10 (6-20) 10 (6-20) Glucose Level 203 mg/dL (70-99) 134 mg/dL (70-99) Calcium Level 9.1 mg/dL (8.5-10.1) 8.5 mg/dL (8.5-10.1) Magnesium Level 2.5 mg/dL (1.8-2.4) Total Bilirubin 0.5 mg/dL (0.2-1.0) 0.4 mg/dL (0.2-1.0) Aspartate Amino Transf (AST/SGOT) 83 U/L (15-37) 121 U/L (15-37) Alanine Aminotransferase (ALT/SGPT) 94 U/L (14-59) 121 U/L (14-59) Alkaline Phosphatase 157 U/L (46-116) 140 U/L (46-116) Creatine Kinase 98 U/L (26-192) Creatine Kinase MB (Mass) 3.7 ng/mL (0.0-3.6) Creatine Kinase MB Relative Index 3.8 % (0-4) Troponin I Quantitative 0.129 ng/mL (0.000-0.055) 0.133 ng/mL (0.000-0.055) 0.127 ng/mL (0.000-0.055) AV-Kyr-K-Type Natriuretic Peptide > 76520 pg/mL (0-124) Total Protein 7.6 g/dL (6.4-8.2) 5.9 g/dL (6.4-8.2) Albumin 3.4 g/dL (3.4-5.0) 2.8 g/dL (3.4-5.0) Albumin/Globulin Ratio 0.8 (1.0-1.7) 0.9 (1.0-1.7) Lipase 125 U/L (73-393) Triglycerides Level 55 mg/dL (0-150) Cholesterol Level 126 mg/dL (0-200) LDL Cholesterol, Calculated 51 mg/dL (0-100) VLDL Cholesterol, Calculated 11 mg/dL (0-40) Non-HDL Cholesterol Calculated 62 mg/dL (0-129) HDL Cholesterol 64 mg/dL (40-60) Cholesterol/HDL Ratio 2.0 Glucose (Fingerstick) 105 mg/dL (70-99) Hepatitis B Surface Antigen Nonreactive (Nonreactive) Hepatitis B Surface Antibody Nonreactive Test 11/18/19 13:47 11/18/19 15:35 11/18/19 16:31 11/19/19 07:23 Glucose (Fingerstick) 63 mg/dL (70-99) 176 mg/dL (70-99) 124 mg/dL (70-99) Troponin I Quantitative 0.130 ng/mL (0.000-0.055) Test 11/19/19 11:41 Glucose (Fingerstick) 172 mg/dL (70-99) Laboratory Tests Test 11/18/19 15:35 11/18/19 16:31 11/19/19 07:23 11/19/19 11:41 Troponin I Quantitative 0.130 ng/mL (0.000-0.055) Glucose (Fingerstick) 176 mg/dL (70-99) 124 mg/dL (70-99) 172 mg/dL (70-99) Brief Hospital Course History of Present Illness History of Present Illness Patient is a 59 year old female well known to our service with multiple medical comorbidities. who has visited our institution on more than 10 ocassions this year alone, she has a long standing history of non adherence to tredatment plan she has had multiple instances where she misses dialysis and has had amputations this year due to gangrene and osteomyelitis. The night of her evaluation in the ER she gave a history of several days of feeling short of breath, she denies dietary transgressions and says she has been taking her medications. She denies COVId 19 suspected symptoms. NO fever or chills, she was found to have a mildly elevated troponin, she denies chest pain, report of an elevated bnp was given as well which is not uncommon in patients with commorbidities like mrs Smith. She is in no apparent distress being evaluated while being in dialysis, she is in no acute distress, there does not seem to be increased work of breathing, no chest pain palpitatiions nausea vomiting or diarrhera reported. She did not have any acute events during her brief hsopital stay she certainly is a high risk for readmission, discussed the improtnace of observing a 2 Gr Na redstricted diet fluid restriction as well, she does not seem to be quite cognescent of her idre situation despite her bilateral amputation, reassurance has been provided, patient will be discharged home in hemodynmiaclly stable condition. She hopefully will follow up in the outpatient setting with her dialysis center, volume overload as consequence of her missed dialysis days. No other concerns. Assessment Assessment Physical Exam GENERAL: Propped up in bed, somnolent HEENT: Oral cavity pink. No lesions seen NECK: Supple. LUNGS: Decreased breath sounds at the bases, nonlabored. HEART: S1, S2. regular ABDOMEN: Obese, soft, nontender, bowel sounds present. GENITOURINARY: No Calvillo. EXTREMITIES: Bilateral BKA stump healthy, Right 2nd amputation well- approx/sutures, clean SKIN: No signs of rash. warm to touch. (Right upper extremity finger amputation site is clean, dry, and intact.) NEUROLOGIC: Alert, answering questions appropriately Discharge Information Condition at Discharge: Improved Follow Up: Weeks Disposition/Orders: D/C to Home Scheduled Amlodipine Besylate (Amlodipine Besylate) 5 Mg Tablet, 10 MG PO DAILY for blood pressure, (Reported) Entered as Reported by: JENNIE SMITH on 12/05/17809 Last Action: Continued on 11/18/19952 by MICA SUMMERS RN Atorvastatin Calcium (Atorvastatin Calcium) 40 Mg Tablet, 40 MG PO HS for cholesterol, (Reported) Entered as Reported by: JENNIE SMITH on 12/05/17809 Last Action: Continued on 11/18/19952 by MICA SUMMERS RN Bupropion Hcl (Bupropion Xl) 300 Mg Tab.er.24h, 1 TAB PO DAILYWBKFT for antidepressant, #30 Ref 2 (Reported) Entered as Reported by: Marilyn Garibay on 09/23/19419 Last Action: Converted on 11/18/19952 by MICA SUMMERS RN Carvedilol (Carvedilol ) 6.25 Mg Tablet, 12.5 MG PO BIDWMEALS for htn, #60 Prescribed by: PRABHAKAR MOSQUERA on 01/29/191112 Last Action: Continued on 11/18/19952 by MICA SUMMERS RN Clonidine (Clonidine Tts-2 ) 1 Each Patch.tdwk, 1 PATCH TD WEEKLY for blood pressure, (Reported) Entered as Reported by: VIKI PANG on 03/22/18 172 Last Action: Continued on 11/18/19952 by MICA SUMMERS RN Clopidogrel Bisulfate (Clopidogrel) 75 Mg Tablet, 75 MG PO DAILYWBKFT for pvd for 30 Days, #30 Prescribed by: SANGEETHA MUELLER MD on 12/26/181246 Last Action: Continued on 11/18/19952 by MICA SUMMERS RN Folic Acid/Vitamin B Comp W-C (Pinky-Shreya Tablet) 0.8 Mg Tablet, 1 TAB PO DAILY for esrd, #30 Prescribed by: PRABHAKAR MOSQUERA on 12/10/18 1041 Last Action: Continued on 11/18/19952 by MICA SUMMERS RN Hydralazine Hcl (Hydralazine Hcl) 25 Mg Tablet, 25 MG PO TID for htn, #10 Prescribed by: PRABHAKAR MOSQUERA on 01/29/191112 Last Action: Continued on 11/18/19952 by MICA SUMMERS RN Insulin Lispro (Humalog) 100 Unit/1 Ml Insuln.pen, 0 UNITS SQ TIDWMEALS for glucose for 28 Days, #3 Prescribed by: SANGEETHA MUELLER MD on 12/26/181246 Last Action: Converted on 11/18/19952 by MICA SUMMERS RN Lactobacillus Rhamnosus Gg (Culturelle) 1 Each Cap.sprink, 1 CAP PO BID for supplement for 30 Days, #60 Prescribed by: SANGEETHA MUELLER MD on 12/26/181246 Last Action: Continued on 11/18/19952 by MICA SUMMERS RN Latanoprost (Latanoprost) 2.5 Ml Drops, 1 DROP EACHEYE HS, (Reported) Entered as Reported by: ATTILA HAMMOND on 09/24/17 1649 Last Action: Continued on 11/18/19952 by MICA SUMMERS RN Levothyroxine Sodium (Levothyroxine Sodium) 50 Mcg Tablet, 1 TAB PO DAILY for thyroid, #30 Ref 5 (Reported) Entered as Reported by: VIKI PANG on 03/22/18 1727 Last Action: Continued on 11/18/19952 by MICA SUMMERS RN Lipase/Protease/Amylase (Creon Dr 6,000 Units Capsule) 1 Each Capsule.dr, 1 TAB PO TID for digestion, (Reported) Entered as Reported by: CAROL CHAN on 04/23/18 1236 Last Action: Converted on 11/18/19952 by MICA SUMMERS RN Lisinopril (Lisinopril) 20 Mg Tablet, 20 MG PO DAILY for FOR HYPERTENSION, Ref 0 (Reported) Entered as Reported by: LAUREN REAVES on 05/27/1849 Last Action: Continued on 11/18/19952 by MICA SUMMERS RN Ranitidine Hcl (Zantac) 300 Mg Tablet, 1 TAB PO QHS for reflux, #90 Ref 3 Prescribed by: DANIELA ALMAZAN D.O. on 08/29/182155 Last Action: Converted on 11/18/19952 by MICA SUMMERS RN Sertraline Hcl (Zoloft) 50 Mg Tablet, 50 MG PO DAILY for ANTI-DEPRESSANT, Ref 0 (Reported) Entered as Reported by: LAUREN REAVES on 05/27/1849 Last Action: Continued on 11/18/19952 by MICA SUMMERS RN [Pantoprazole] 40 MG TABLET., 40 MG PO DAILYAC for GERD for 30 Days, #30 Ref 2 Prescribed by: FELI SHAH MD on 03/07/18 1359 Last Action: Converted on 11/18/19952 by MICA SUMMERS RN Scheduled PRN Acetaminophen (Tylenol) 325 Mg Capsule, 650 MG PO Q6-8HRS PRN for PAIN, #20 Prescribed by: KIMBERLY DONOHUE MD on 11/14/18 2112 Last Action: Converted on 11/18/19952 by MICA SUMMERS RN Albuterol Sulfate (Proair Hfa) 8.5 Gm Hfa.aer.ad, 2 PUFF INH BID PRN for SHORTNESS OF BREATH, (Reported) Entered as Reported by: VIKI PANG on 03/22/18 1727 Last Action: Continued on 11/18/19952 by MICA SUMMERS RN Guaifenesin/Dextromethorphan (Guaifenesin Dm Syrup) 5 Ml Syrup, 10 ML PO PRN Q6HRS PRN for COUGH for 10 Days, #120 Prescribed by: SANGEETHA MUELLER MD on 02/12/19 1404 Last Action: Continued on 11/18/19952 by MICA SUMMERS RN Ondansetron (Ondansetron Odt) 4 Mg Tab.rapdis, 4 MG PO PRN Q6HRS PRN for NAUSEA/VOMITING 1ST CHOICE for 28 Days, #30 Prescribed by: SANGEETHA MUELLER MD on 12/26/18 1247 Last Action: Continued on 11/18/19952 by MICA SUMMERS RN Oxycodone/Apap 10-325 (Percocet 10-325 Mg Tablet ) 1 Each Tablet, 1 TAB PO PRN Q4HRS PRN for PAIN , #25 Prescribed by: HARDEEP MUÑOZ on 09/28/19 1025 Last Action: Continued on 11/18/19952 by MICA SUMMERS RN Prochlorperazine Maleate (Compazine) 5 Mg Tablet, 5 MG PO PRN TID PRN for NAUSEA for 10 Days, #30 Prescribed by: FELI SHAH MD on 08/26/18 1158 Last Action: Continued on 11/18/19952 by MICA SUMMERS RN Justicifation of Admission Dx: Justifications for Admission: Justification of Admission Dx: Yes Chronic Renal Failure: Hypertension JASPAL RAMOS MD Nov 19, 2019 15:06
== END 2019-11-19 14:00 | disposition home or self-care (01) | DRG 304 ==
LOC: ER 17:55 → 2 SOUTH 21:18 → OBSVTOIN 22:04
PROVIDERS: ADMIT Internal Medicine; ATTEND Internal Medicine
PROC: 5A1D70Z Performance of Urinary Filtration, Intermittent, Less than 6 Hours Per Day (ICD-10-PCS; principal; 2019-11-18)
DX: I16.0 Hypertensive urgency (principal); I50.33 Acute on chronic diastolic (congestive) heart failure; N18.6 End stage renal disease; I13.2 Hypertensive heart and chronic kidney disease with heart failure and with stage 5 chronic kidney disease, or end stage renal disease; R07.89 Other chest pain; D63.1 Anemia in chronic kidney disease; E03.9 Hypothyroidism, unspecified; E11.22 Type 2 diabetes mellitus with diabetic chronic kidney disease; E78.00 Pure hypercholesterolemia, unspecified; E78.5 Hyperlipidemia, unspecified; F31.9 Bipolar disorder, unspecified; F41.9 Anxiety disorder, unspecified; G89.4 Chronic pain syndrome; J44.9 Chronic obstructive pulmonary disease, unspecified; I48.91 Unspecified atrial fibrillation; M79.7 Fibromyalgia; Z82.49 Family history of ischemic heart disease and other diseases of the circulatory system; Z87.891 Personal history of nicotine dependence; Z89.511 Acquired absence of right leg below knee; Z89.512 Acquired absence of left leg below knee; Z90.49 Acquired absence of other specified parts of digestive tract; Z90.710 Acquired absence of both cervix and uterus; Z91.14 Patient's other noncompliance with medication regimen; Z91.19 Patient's noncompliance with other medical treatment and regimen; Z99.2 Dependence on renal dialysis; E21.3 Hyperparathyroidism, unspecified; K21.9 Gastro-esophageal reflux disease without esophagitis; M19.90 Unspecified osteoarthritis, unspecified site; Z20.828 Contact with and (suspected) exposure to other viral communicable diseases
CPT/HCPCS: 36415; 71045; 80053; 80061; 82553; 82962; 83690; 83735; 83880; 84484; 85025; 85379; 85610; 85730; 86706; 87340; 93005; 94640; 99285; G0379; J0882; J1815; G0378; J7613; Q0163

== ENCOUNTER 2019-11-22 15:40 | Inpatient (IN) | payer MEDICAID ==
[~2019-11-22] VITALS: Ht 157.5 cm; Wt 57.2 kg
--- NOTE | 2019-11-22 16:57 | PHYS DOC ---
Past Medical History Past Medical History: A-Fib, Anemia, Anxiety, Arthritis, Asthma, Bronchitis, CHF, COPD, Depression, Diabetes-Type II, GERD, High Cholesterol, Hypertension, Hypothyroid, Renal Disease Additional Past Medical Histor: neuropathy, cataracts,CHRONIC PAIN,ESRD,PNEUMONIA,SLEEP APNEA Past Surgical History: Appendectomy, Cholecystectomy, Hysterectomy, Other Additional Past Surgical Histo: bilateral bka, shunt, hysterectomy; RIGHT HAND MIDDLE FINGER AMPUTATION Smoking Status: Former Smoker Alcohol Use: None Drug Use: None General Adult EDM: Chief Complaint: UPPER EXTREMITY PAIN HPI: HPI: 59-year-old female with end-stage renal disease who presents emergency department after finishing most of her dialysis and then having pain in her fistula site. She describes a moderate pain in her fistula. She denies any large amount of swelling of the arm or around the fistula. She reports good motor and sensory function of the left upper extremity where the fistula is. The pain is sharp nonradiating moderate and without alleviating factors. Review of systems negative for numbness weakness tingling, swelling or any rashes. All other review of systems negative. ED course: 59-year-old female presenting with fistula pain after dialysis. On arrival her left upper extremity shows her fistula in place without any swelling or developing hematoma. Palpable radial pulse with normal motor and sensory function of the left hand. The patient is otherwise without any other complaints. I spoke with the barbed wire machine operator Dr. Mahoney and reviewed the case with him. Blood work difficult to obtain. Lab called. Patient was signed out at 6 PM with plans to follow-up on lab work. If lab work is within normal limits and patient's pain is improved patient can be discharged for outpatient dialysis. Heart Score: Risk Factors: Risk Factors: DM, Current or recent (<one month) smoker, HTN, HLP, family history of CAD, obesity. Risk Scores: Score 0 - 3: 2.5% MACE over next 6 weeks - Discharge Home Score 4 - 6: 20.3% MACE over next 6 weeks - Admit for Clinical Observation Score 7 - 10: 72.7% MACE over next 6 weeks - Early Invasive Strategies Allergies: Allergies: Allergies Coded Allergies Type Severity Reaction Last Updated Verified No Known Drug Allergies 02/27/19 No Physical Exam: PE: Constitutional: Well developed, well nourished, no acute distress, non-toxic appearance. [] HENT: Normocephalic, atraumatic, bilateral external ears normal, oropharynx moist, no oral exudates, nose normal. [] Eyes: PERRLA, EOMI, conjunctiva normal, no discharge. [] Neck: Normal range of motion, no tenderness, supple, no stridor. [] Cardiovascular:Heart rate regular rhythm, no murmur [] Lungs & Thorax: Bilateral breath sounds clear to auscultation [] Abdomen: Bowel sounds normal, soft, no tenderness, no masses, no pulsatile masses. [] Skin: Warm, dry, no erythema, no rash. [] Back: No tenderness, no CVA tenderness. [] Extremities: LUE as above other raya no tenderness, no cyanosis, no clubbing, ROM intact, no edema. [] Neurologic: Alert and oriented X 3, normal motor function, normal sensory function, no focal deficits noted. [] Psychologic: Affect normal, judgement normal, mood normal. [] Current Patient Data: Vital Signs: Vital Signs Date Time Temp Pulse Resp B/P (MAP) Pulse Ox O2 Delivery O2 Flow Rate FiO2 11/22/19 15:40 147/37 (73) EKG: EKG: [] Radiology/Procedures: Radiology/Procedures: [] Course & Med Decision Making: Course & Med Decision Making Pertinent Labs and Imaging studies reviewed. (See chart for details) [] Dragon Disclaimer: Dragon Disclaimer: This electronic medical record was generated, in whole or in part, using a voice recognition dictation system. Departure Departure Impression: Primary Impression: Pain from A/V fistula Referrals: NO PCP (PCP) Justicifation of Admission Dx: Justifications for Admission: Justification of Admission Dx: N/A Chronic Renal Failure: Hypertension VANDANA GAMINO MD Nov 22, 2019 16:57
[2019-11-22 18:41] LABS: BASO # 0.1 x10^3/uL (0.0-0.2); BASO % 1 % (0-3); EOS # 0.1 x10^3/uL (0.0-0.7); EOS % 1 % (0-3); HEMATOCRIT 28.7 % (36.0-47.0); HEMOGLOBIN 9.8 g/dL (12.0-15.5); LYMPH # 1.2 x10^3/uL (1.0-4.8); LYMPH % 18 % (24-48); MEAN CORPUSCULAR HEMOGLOBIN 33 pg (25-35); MEAN CORPUSCULAR HGB CONC 34 g/dL (31-37); MEAN CORPUSCULAR VOLUME 97 fL (79-100); MONO # 0.5 x10^3/uL (0.0-1.1); MONO % 8 % (0-9); NEUT # 4.6 x10^3/uL (1.8-7.7); NEUT % 72 % (31-73); PLATELET COUNT 281 x10^3/uL (140-400); RED BLOOD COUNT 2.97 x10^6/uL (3.50-5.40); RED CELL DISTRIBUTION WIDTH 18.9 % (11.5-14.5); WHITE BLOOD COUNT 6.5 x10^3/uL (4.0-11.0)
[2019-11-22 18:50] LABS: PROTHROMBIN TIME PATIENT 13.9 SEC (11.7-14.0)
[2019-11-22 18:51] LABS: CALCIUM 8.8 mg/dL (8.5-10.1); GFR 19.5
[2019-11-22 18:57] LABS: DIRECT BILIRUBIN 0.2 mg/dL (0.0-0.2); TOTAL BILIRUBIN 0.6 mg/dL (0.2-1.0); TOTAL PROTEIN 6.8 g/dL (6.4-8.2)
[2019-11-22] MEDS ORDERED: ONDANSETRON PF 4 MG/2 ML VIAL. IV PRN (19:45)
[2019-11-22] MEDS ORDERED: ACETAMINOPHEN 500 MG TABLET PO ONE (20:00)
--- NOTE | 2019-11-22 22:00 | NUR ---
NURSING NOTE Pt admitted to room 510 via ER cart. Pt moved self over in the bed. Pt upset and angry that she was not given pain medication in the ER, demands to have pain med now. Explained POC to pt, and that the doctor has to be called and would have to order medication. Pt still angry, pt did allow tele monitor to be placed, and a very brief assessment to be done. Pt refused to answer any admission/history questions, so all questions answered from previous admissions. When pt asked where she lives, she stated "here and there" and refused to further answer an other questions. Only demanded pain medication. Bed alarm on. Will monitor.
[2019-11-22 22:30] VITALS: BP 172/62
[2019-11-22] MEDS: ONDANSETRON PF 4 MG/2 ML VIAL. IVP PRN (23:16)
[2019-11-22] MEDS: diphenhydrAMINE HCL 25 MG CAPSULE PO PRN (23:20)
[2019-11-22] MEDS: oxyCODONE/APAP 10/325 1 TAB TABLET PO PRN (23:21)
[2019-11-23 03:04] LABS: BASO # 0.1 x10^3/uL (0.0-0.2); BASO % 1 % (0-3); EOS % 1 % (0-3); HEMATOCRIT 26.8 % (36.0-47.0); LYMPH # 0.9 x10^3/uL (1.0-4.8); LYMPH % 17 % (24-48); MEAN CORPUSCULAR HEMOGLOBIN 32 pg (25-35); MEAN CORPUSCULAR HGB CONC 34 g/dL (31-37); MEAN CORPUSCULAR VOLUME 97 fL (79-100); MONO # 0.4 x10^3/uL (0.0-1.1); MONO % 7 % (0-9); NEUT # 4.1 x10^3/uL (1.8-7.7); NEUT % 75 % (31-73); PLATELET COUNT 255 x10^3/uL (140-400); RED BLOOD COUNT 2.77 x10^6/uL (3.50-5.40); WHITE BLOOD COUNT 5.4 x10^3/uL (4.0-11.0)
[2019-11-23 03:21] LABS: CALCIUM 8.9 mg/dL (8.5-10.1); CREATININE 3.5 mg/dL (0.6-1.0); GFR 16.3; POTASSIUM 4.5 mmol/L (3.5-5.1)
--- NOTE | 2019-11-23 03:30 | NUR ---
NURSING NOTE Pt refused to have her vitals taken at this time. She yanked her arm away and told the SUPERVISOR PRODUCT INSPECTION to go away. Pt also refused to put her cardiac monitor technician back on after taking it off again. Explained to need to get vitals and pt continues with disrespectful words and behavior, vitals not taken and telemetry left off.
[2019-11-23 07:00] VITALS: BP 162/66
[2019-11-23] MEDS: oxyCODONE/APAP 10/325 1 TAB TABLET PO PRN ×3 (07:22→21:24)
[2019-11-23] MEDS: ONDANSETRON PF 4 MG/2 ML VIAL. IVP PRN ×3 (09:43→22:39)
[2019-11-23 11:00] VITALS: BP 173/66
--- NOTE | 2019-11-23 13:07 | PDOC ---
Renal-Progress Notes Subjective Notes Notes LEFT ARM ACCESS PAIN History of Present Illness Hx of present illness STABLE Vitals Vitals Vital Signs Date Time Temp Pulse Resp B/P (MAP) Pulse Ox O2 Delivery O2 Flow Rate FiO2 11/23/19 11:00 98.6 75 16 173/66 (101) 91 Room Air 98.6 Weight Weight [ ] I.O. Intake and Output Intake and Output 11/23/19 07:00 Intake Total 480 ml Output Total 0 ml Balance 480 ml Intake Oral 480 ml Output Urine Total 0 ml Labs Labs Laboratory Tests Test 11/22/19 18:30 11/23/19 02:00 11/23/19 12:17 White Blood Count 6.5 x10^3/uL (4.0-11.0) 5.4 x10^3/uL (4.0-11.0) Red Blood Count 2.97 x10^6/uL (3.50-5.40) 2.77 x10^6/uL (3.50-5.40) Hemoglobin 9.8 g/dL (12.0-15.5) 9.0 g/dL (12.0-15.5) Hematocrit 28.7 % (36.0-47.0) 26.8 % (36.0-47.0) Mean Corpuscular Volume 97 fL (79-100) 97 fL (79-100) Mean Corpuscular Hemoglobin 33 pg (25-35) 32 pg (25-35) Mean Corpuscular Hemoglobin Concent 34 g/dL (31-37) 34 g/dL (31-37) Red Cell Distribution Width 18.9 % (11.5-14.5) 19.0 % (11.5-14.5) Platelet Count 281 x10^3/uL (140-400) 255 x10^3/uL (140-400) Neutrophils (%) (Auto) 72 % (31-73) 75 % (31-73) Lymphocytes (%) (Auto) 18 % (24-48) 17 % (24-48) Monocytes (%) (Auto) 8 % (0-9) 7 % (0-9) Eosinophils (%) (Auto) 1 % (0-3) 1 % (0-3) Basophils (%) (Auto) 1 % (0-3) 1 % (0-3) Neutrophils # (Auto) 4.6 x10^3/uL (1.8-7.7) 4.1 x10^3/uL (1.8-7.7) Lymphocytes # (Auto) 1.2 x10^3/uL (1.0-4.8) 0.9 x10^3/uL (1.0-4.8) Monocytes # (Auto) 0.5 x10^3/uL (0.0-1.1) 0.4 x10^3/uL (0.0-1.1) Eosinophils # (Auto) 0.1 x10^3/uL (0.0-0.7) 0.0 x10^3/uL (0.0-0.7) Basophils # (Auto) 0.1 x10^3/uL (0.0-0.2) 0.1 x10^3/uL (0.0-0.2) Prothrombin Time 13.9 SEC (11.7-14.0) Prothromb Time International Ratio 1.1 (0.8-1.1) Activated Partial Thromboplast Time 25 SEC (24-38) Sodium Level 135 mmol/L (136-145) 138 mmol/L (136-145) Potassium Level 4.0 mmol/L (3.5-5.1) 4.5 mmol/L (3.5-5.1) Chloride Level 101 mmol/L (98-107) 101 mmol/L (98-107) Carbon Dioxide Level 29 mmol/L (21-32) 29 mmol/L (21-32) Anion Gap 5 (6-14) 8 (6-14) Blood Urea Nitrogen 22 mg/dL (7-20) 25 mg/dL (7-20) Creatinine 3.0 mg/dL (0.6-1.0) 3.5 mg/dL (0.6-1.0) Estimated GFR (Cockcroft-Gault) 19.5 16.3 Glucose Level 99 mg/dL (70-99) 101 mg/dL (70-99) Calcium Level 8.8 mg/dL (8.5-10.1) 8.9 mg/dL (8.5-10.1) Total Bilirubin 0.6 mg/dL (0.2-1.0) Direct Bilirubin 0.2 mg/dL (0.0-0.2) Aspartate Amino Transf (AST/SGOT) 36 U/L (15-37) Alanine Aminotransferase (ALT/SGPT) 50 U/L (14-59) Alkaline Phosphatase 127 U/L (46-116) Troponin I Quantitative 0.079 ng/mL (0.000-0.055) 0.098 ng/mL (0.000-0.055) CG-Yat-M-Type Natriuretic Peptide > 06559 pg/mL (0-124) Total Protein 6.8 g/dL (6.4-8.2) Albumin 3.0 g/dL (3.4-5.0) Lipase 155 U/L (73-393) Glucose (Fingerstick) 66 mg/dL (70-99) Review of Systems Constitutional: yes: weakness, alert, oriented Ears/Nose/Throat: Yes: no symptom reported Eyes: Yes: no symptom reported Pulmonary: Yes no symptom reported Cardiovascular: Yes no symptom reported Gastrointestional: Yes: constipation Genitourinary: Yes: no symptom reported Musculoskeletal: Yes: muscle stiffness, other (LEFT ARM PAIN) Skin: Yes no symptom reported Psychiatric/Neurological: Yes: no symptom reported Physical Exam General Appearance: no apparent distress, oriented Skin: warm Respiratory: bilateral CTA Heart: S1S2, RRR Abdomen: soft, bowel sounds present, no hepatosplenomegaly Genitourinary: bladder flat Extremities: pulses present, other (LEFT ARM AVF WITH A GOOD THRILL AND BRUIT) Neurology: alert, oriented Musculoskeletal: Osteoarthritis Assessment Assessment IMP LEFT ARM ACCESS PAIN ESRD - MWF NON COMPLIANCE HTN ANEMIA PLAN SHE HAD SOME PAIN OVER THE ACCESS SITE AT THE CANNULATION SITE. SHE HAS A LEFT ARM BRACHIO-BASILIC GRAFT WITH A GREAT THRILL AND BRUIT. NO EVIDENCE OF ANY INFECTION OR PSEUDOANEURYSMAL DILATIONS. OK TO D/C FROM RENAL STANDPOINT. NEXT HD ON MONDAY BENY PAINTER MD Nov 23, 2019 13:07
[2019-11-23] MEDS ORDERED: GABAPENTIN 100 MG CAPSULE. PO SCH (14:00)
[2019-11-23 15:00] VITALS: BP 119/35
[2019-11-23] MEDS ORDERED: DEXTROSE 50% 25 GM / 50ML DISP.SYRIN. IV PRN (15:30)
[2019-11-23] MEDS ORDERED: PROCHLORPERAZINE 5 MG TABLET. PO PRN (15:30)
--- NOTE | 2019-11-23 15:37 | PDOC1 ---
History and Physical Date of Service: DOS: DATE: 11/23/19 TIME: 15:26 Chief Complaint: Chief Complain: Left arm pain at aVF site History of Present Illness: HPI: Patient is a unfortunate 59-year-old female with multiple morbidities which includes end-stage renal disease, CHF, COPD, diabetes who presents with left upper extremity pain near her fistula site after finishing her dialysis with about 20 minutes left. Pain is described as sharp and nonradiating and there is no associated symptoms. There are no alleviating or exacerbating factors at this time. Denies fevers, chest pain, nausea vomiting, diarrhea, or bloody stools. Patient seen and examined bedside this morning patient describes abdominal pains. Patient also describes what seems to be her chronic peripheral bettie ropathy pains near her prior incision sites from her bilateral AKA stumps and wear her permacath was. Past Medical/Surgical History: PMH/PSH: Past Medical History: A-Fib, Anemia, Anxiety, Arthritis, Asthma, Bronchitis, CHF, COPD, Depression, Diabetes-Type II, GERD, High Cholesterol, Hypertension, Hypothyroid, Renal Disease, neuropathy, cataracts,CHRONIC PAIN,ESRD,PNEUMONIA,SLEEP APNEA Past Surgical History: Appendectomy, Cholecystectomy, Hysterectomy, bilateral bka, shunt, hysterectomy; RIGHT HAND MIDDLE FINGER AMPUTATION Allergies: Allergies: Coded Allergies: No Known Drug Allergies (Unverified , 02/27/19) Family History: Family History: Reviewed and none reported Social History: Social History: Smoking Status: Former Smoker Alcohol Use: None Drug Use: None Current Medications: Current Medications Current Medications Ondansetron HCl (Zofran) 4 mg PRN Q8HRS PRN IV NAUSEA/VOMITING Last administered on 11/22/19at 20:13; Start 11/22/19 at 19:45; Stop 11/22/19 at 2 2:55; Status DC Acetaminophen (Tylenol) 1,000 mg 1X ONCE PO ; Start 11/22/19 at 20:00; Stop 11/22/19 at 20:05; Status DC Oxycodone/ Acetaminophen (Percocet 10/325) 1 tab PRN Q4HRS PRN PO SEVERE PAIN 7-10 Last administered on 11/23/19at 14:38; Start 11/22/19 at 22:15 Diphenhydramine HCl (Benadryl) 25 mg PRN Q6HRS PRN PO ITCHING Last administered on 11/22/19at 23:20; Start 11/22/19 at 22:15 Ondansetron HCl (Zofran) 4 mg PRN Q6HRS PRN IVP NAUSEA/VOMITING 1ST CHOICE Last administered on 11/23/19at 09:43; Start 11/22/19 at 23:00 Gabapentin (Neurontin) 100 mg TID PO ; Start 11/23/19 at 14:00; Stop 11/23/19 at 14:31; Status DC Gabapentin (Neurontin) 300 mg HS PO ; Start 11/23/19 at 21:00 Active Scripts Active Percocet 10-325 Mg Tablet (Oxycodone/Acetaminophen) 1 Each Tablet 1 Tab PO PRN Q4HRS PRN Guaifenesin Dm Syrup (Guaifenesin/Dextromethorphan) 5 Ml Syrup 10 Ml PO PRN Q6HRS PRN 10 Days Carvedilol (Carvedilol) 6.25 Mg Tablet 12.5 Mg PO BIDWMEALS Hydralazine Hcl 25 Mg Tablet 25 Mg PO TID Humalog (Insulin Lispro) 100 Unit/1 Ml Insuln.pen 0 Units SQ TIDWMEALS 28 Days Culturelle (Lactobacillus Rhamnosus Gg) 1 Each Cap.sprink 1 Cap PO BID 30 Days Ondansetron Odt (Ondansetron) 4 Mg Tab.rapdis 4 Mg PO PRN Q6HRS PRN 28 Days Clopidogrel (Clopidogrel Bisulfate) 75 Mg Tablet 75 Mg PO DAILYWBKFT 30 Days Pinky-Shreya Tablet (Folic Acid/Vitamin B Comp W-C) 0.8 Mg Tablet 1 Tab PO DAILY Tylenol (Acetaminophen) 325 Mg Capsule 650 Mg PO Q6-8HRS PRN Zantac (Ranitidine Hcl) 300 Mg Tablet 1 Tab PO QHS Compazine (Prochlorperazine Maleate) 5 Mg Tablet 5 Mg PO PRN TID PRN 10 Days [Pantoprazole] 40 MG Tablet.dr 40 Mg PO DAILYAC 30 Days Reported Bupropion Xl (Bupropion Hcl) 300 Mg Tab.er.24h 1 Tab PO DAILYWBKFT Zoloft (Sertraline Hcl) 50 Mg Tablet 50 Mg PO DAILY Lisinopril 20 Mg Tablet 20 Mg PO DAILY Creon Dr 6,000 Units Capsule (Lipase/Protease/Amylase) 1 Each Capsule. 1 Tab PO TID Proair Hfa (Albuterol Sulfate) 8.5 Gm Hfa.aer.ad 2 Puff INH BID PRN Levothyroxine Sodium 50 Mcg Tablet 1 Tab PO DAILY Clonidine Tts-2 (Clonidine) 1 Each Patch.tdwk 1 Patch TD WEEKLY Amlodipine Besylate 5 Mg Tablet 10 Mg PO DAILY Atorvastatin Calcium 40 Mg Tablet 40 Mg PO HS Latanoprost 2.5 Ml Drops 1 Drop EACHEYE HS ROS: Review of Systems Review of System REVIEW OF SYSTEMS: GENERAL: Denies weakness SKIN: No bruising, hair changes or rashes. EYES: No blurred, double or loss of vision. NOSE AND THROAT: No history of nosebleeds, hoarseness or sore throat. HEART: No history of palpitations, chest pain or shortness of breath on exertion. LUNGS: Denies cough, hemoptysis, wheezing or shortness of breath. GASTROINTESTINAL: Denies changes in appetite, nausea, vomiting, diarrhea or constipation. GENITOURINARY: No history of frequency, urgency, hesitancy or nocturia. NEUROLOGIC: Denies history of numbness, tingling, or tremor. PSYCHIATRIC: No history of panic, anxiety or depression. ENDOCRINE: No history of heat or cold intolerance, polyuria or polydipsia. EXTREMITIES: Denies joint pain, pain on walking or stiffness. Physical Exam: Vital Signs: Vital Signs Date Time Temp Pulse Resp B/P (MAP) Pulse Ox O2 Delivery O2 Flow Rate FiO2 11/23/19 14:38 Room Air 11/23/19 11:00 98.6 75 16 173/66 (101) 91 98.6 Physcial Exam: GEN: No apparent distress. Alert and oriented HEENT: Normal cephalic, atraumatic, external auditory canals are patent EYES: Extraocular muscles are intact, pupil are equally round and reactive to light and accommodation MUSCULOSKELETAL: Well developed , well nourished, good range of motion ENDOCRINE: No thyromegaly was palpated LYMPHATICS: No cervical chain or axillary nodes were noted HEMATOPOIETIC: No bruising NECK: Supple, no JVD, no thyromegaly was noted LUNGS: Clear to auscultation in all lung berumen without rhonchi or wheezing HEART: RRR, S!, S2 present. Peripheral pulses intact, no obvious murmurs noted ABDOMEN: Soft, nontender. Positive bowel sounds, no organomegaly, normal bowel sounds EXTREMITIES: Left upper extremity with palpable thrill in the AV fistula. Bilateral lower extremity AKA with well-healed stump incisions. Right middle finger amputated. Well-healed incision. NEUROLOGIC: Normal speech and tone. A&O x 3, moves all extremities, no obvious focal deficits PSYCHIATRIC: Normal affect, normal mood. Stable SKIN: No ulcerations or rashes, good skin turgor, no jaundice VASCULAR: Good capillary refill, neurovascular bundle appears to be intact Labs: Labs: Laboratory Tests Test 11/22/19 18:30 11/23/19 02:00 11/23/19 12:17 White Blood Count 6.5 x10^3/uL (4.0-11.0) 5.4 x10^3/uL (4.0-11.0) Red Blood Count 2.97 x10^6/uL (3.50-5.40) 2.77 x10^6/uL (3.50-5.40) Hemoglobin 9.8 g/dL (12.0-15.5) 9.0 g/dL (12.0-15.5) Hematocrit 28.7 % (36.0-47.0) 26.8 % (36.0-47.0) Mean Corpuscular Volume 97 fL (79-100) 97 fL (79-100) Mean Corpuscular Hemoglobin 33 pg (25-35) 32 pg (25-35) Mean Corpuscular Hemoglobin Concent 34 g/dL (31-37) 34 g/dL (31-37) Red Cell Distribution Width 18.9 % (11.5-14.5) 19.0 % (11.5-14.5) Platelet Count 281 x10^3/uL (140-400) 255 x10^3/uL (140-400) Neutrophils (%) (Auto) 72 % (31-73) 75 % (31-73) Lymphocytes (%) (Auto) 18 % (24-48) 17 % (24-48) Monocytes (%) (Auto) 8 % (0-9) 7 % (0-9) Eosinophils (%) (Auto) 1 % (0-3) 1 % (0-3) Basophils (%) (Auto) 1 % (0-3) 1 % (0-3) Neutrophils # (Auto) 4.6 x10^3/uL (1.8-7.7) 4.1 x10^3/uL (1.8-7.7) Lymphocytes # (Auto) 1.2 x10^3/uL (1.0-4.8) 0.9 x10^3/uL (1.0-4.8) Monocytes # (Auto) 0.5 x10^3/uL (0.0-1.1) 0.4 x10^3/uL (0.0-1.1) Eosinophils # (Auto) 0.1 x10^3/uL (0.0-0.7) 0.0 x10^3/uL (0.0-0.7) Basophils # (Auto) 0.1 x10^3/uL (0.0-0.2) 0.1 x10^3/uL (0.0-0.2) Prothrombin Time 13.9 SEC (11.7-14.0) Prothromb Time International Ratio 1.1 (0.8-1.1) Activated Partial Thromboplast Time 25 SEC (24-38) Sodium Level 135 mmol/L (136-145) 138 mmol/L (136-145) Potassium Level 4.0 mmol/L (3.5-5.1) 4.5 mmol/L (3.5-5.1) Chloride Level 101 mmol/L (98-107) 101 mmol/L (98-107) Carbon Dioxide Level 29 mmol/L (21-32) 29 mmol/L (21-32) Anion Gap 5 (6-14) 8 (6-14) Blood Urea Nitrogen 22 mg/dL (7-20) 25 mg/dL (7-20) Creatinine 3.0 mg/dL (0.6-1.0) 3.5 mg/dL (0.6-1.0) Estimated GFR (Cockcroft-Gault) 19.5 16.3 Glucose Level 99 mg/dL (70-99) 101 mg/dL (70-99) Calcium Level 8.8 mg/dL (8.5-10.1) 8.9 mg/dL (8.5-10.1) Total Bilirubin 0.6 mg/dL (0.2-1.0) Direct Bilirubin 0.2 mg/dL (0.0-0.2) Aspartate Amino Transf (AST/SGOT) 36 U/L (15-37) Alanine Aminotransferase (ALT/SGPT) 50 U/L (14-59) Alkaline Phosphatase 127 U/L (46-116) Troponin I Quantitative 0.079 ng/mL (0.000-0.055) 0.098 ng/mL (0.000-0.055) AW-Ohb-F-Type Natriuretic Peptide > 13308 pg/mL (0-124) Total Protein 6.8 g/dL (6.4-8.2) Albumin 3.0 g/dL (3.4-5.0) Lipase 155 U/L (73-393) Glucose (Fingerstick) 66 mg/dL (70-99) Laboratory Tests Test 11/22/19 18:30 11/23/19 02:00 11/23/19 12:17 White Blood Count 6.5 x10^3/uL (4.0-11.0) 5.4 x10^3/uL (4.0-11.0) Red Blood Count 2.97 x10^6/uL (3.50-5.40) 2.77 x10^6/uL (3.50-5.40) Hemoglobin 9.8 g/dL (12.0-15.5) 9.0 g/dL (12.0-15.5) Hematocrit 28.7 % (36.0-47.0) 26.8 % (36.0-47.0) Mean Corpuscular Volume 97 fL (79-100) 97 fL (79-100) Mean Corpuscular Hemoglobin 33 pg (25-35) 32 pg (25-35) Mean Corpuscular Hemoglobin Concent 34 g/dL (31-37) 34 g/dL (31-37) Red Cell Distribution Width 18.9 % (11.5-14.5) 19.0 % (11.5-14.5) Platelet Count 281 x10^3/uL (140-400) 255 x10^3/uL (140-400) Neutrophils (%) (Auto) 72 % (31-73) 75 % (31-73) Lymphocytes (%) (Auto) 18 % (24-48) 17 % (24-48) Monocytes (%) (Auto) 8 % (0-9) 7 % (0-9) Eosinophils (%) (Auto) 1 % (0-3) 1 % (0-3) Basophils (%) (Auto) 1 % (0-3) 1 % (0-3) Neutrophils # (Auto) 4.6 x10^3/uL (1.8-7.7) 4.1 x10^3/uL (1.8-7.7) Lymphocytes # (Auto) 1.2 x10^3/uL (1.0-4.8) 0.9 x10^3/uL (1.0-4.8) Monocytes # (Auto) 0.5 x10^3/uL (0.0-1.1) 0.4 x10^3/uL (0.0-1.1) Eosinophils # (Auto) 0.1 x10^3/uL (0.0-0.7) 0.0 x10^3/uL (0.0-0.7) Basophils # (Auto) 0.1 x10^3/uL (0.0-0.2) 0.1 x10^3/uL (0.0-0.2) Prothrombin Time 13.9 SEC (11.7-14.0) Prothromb Time International Ratio 1.1 (0.8-1.1) Activated Partial Thromboplast Time 25 SEC (24-38) Sodium Level 135 mmol/L (136-145) 138 mmol/L (136-145) Potassium Level 4.0 mmol/L (3.5-5.1) 4.5 mmol/L (3.5-5.1) Chloride Level 101 mmol/L (98-107) 101 mmol/L (98-107) Carbon Dioxide Level 29 mmol/L (21-32) 29 mmol/L (21-32) Anion Gap 5 (6-14) 8 (6-14) Blood Urea Nitrogen 22 mg/dL (7-20) 25 mg/dL (7-20) Creatinine 3.0 mg/dL (0.6-1.0) 3.5 mg/dL (0.6-1.0) Estimated GFR (Cockcroft-Gault) 19.5 16.3 Glucose Level 99 mg/dL (70-99) 101 mg/dL (70-99) Calcium Level 8.8 mg/dL (8.5-10.1) 8.9 mg/dL (8.5-10.1) Total Bilirubin 0.6 mg/dL (0.2-1.0) Direct Bilirubin 0.2 mg/dL (0.0-0.2) Aspartate Amino Transf (AST/SGOT) 36 U/L (15-37) Alanine Aminotransferase (ALT/SGPT) 50 U/L (14-59) Alkaline Phosphatase 127 U/L (46-116) Troponin I Quantitative 0.079 ng/mL (0.000-0.055) 0.098 ng/mL (0.000-0.055) GW-Iia-T-Type Natriuretic Peptide > 62401 pg/mL (0-124) Total Protein 6.8 g/dL (6.4-8.2) Albumin 3.0 g/dL (3.4-5.0) Lipase 155 U/L (73-393) Glucose (Fingerstick) 66 mg/dL (70-99) Assessment/Plan Assessment/Plan Acute left upper extremity pain at AVF site Normocytic anemia due to ESRD Troponinemia Volume overload History of atrial fibrillation CHF COPD Depression Diabetes mellitus type 2 GERD Dyslipidemia Peripheral neuropathy ESRD on HD MWF Bedridden status due to bilateral lower extremity amputation Pending nephrology recommendations Pending KUB Inpatient pain control We will start 300 mg gabapentin Restart home antihypertensive medications with with systolic BP goal between 160-1 80 Heparin for DVT prophylaxis ADA diet Full code Discussed with RN and SW Disposition inpatient pain control Surrogate decision maker is the unknown Justifications for Admission Other Justification SOHAM DELCID MD Nov 23, 2019 15:36
[2019-11-23] MEDS: INSULIN LISPRO 300 UNITS/3 ML VIAL. SQ SCH (16:52)
[2019-11-23] MEDS: CARVEDILOL 6.25 MG TABLET. PO SCH (17:29)
[2019-11-23 19:00] VITALS: BP 177/48
--- NOTE | 2019-11-23 20:53 | RAD ---
Examination: Frontal view of the abdomen HISTORY: History of abdominal pain COMPARISON: None available FINDINGS: Trace right pleural effusion. Cholecystectomy clips identified. Bowel gas pattern appears unremarkable. Moderate amount of feces and gas identified throughout the colon likely constipation. IMPRESSION: Feces and gas identified in the colon likely constipation. Electronically signed by: Amrit Lopez MD (11/23/2019 8:50 PM) [id number]
[2019-11-23] MEDS: hydrALAZINE 25 MG TABLET PO SCH (21:23)
[2019-11-23] MEDS: diphenhydrAMINE HCL 25 MG CAPSULE PO PRN (21:23)
[2019-11-23] MEDS: ATORVASTATIN CALCIUM 40 MG TABLET. PO SCH (21:24)
[2019-11-23] MEDS: GABAPENTIN 300 MG CAPSULE. PO SCH (21:24)
[2019-11-23] MEDS: HEPARIN for SUB-Q USE 5,000 UNIT/ML VIAL. SQ SCH (21:32)
--- NOTE | 2019-11-23 21:34 | NUR ---
Patient constantly on her call light calling for her nurse, this nurse and FORK LIFT TRUCK OPERATOR went into went into her room, to administer her medications as ordered, she then instructed FORK LIFT TRUCK OPERATOR to go closed the door, This nurse suggested to the FORK LIFT TRUCK OPERATOR that we should just close the curtains since patient was already making accusations that she was going to put herself on the floor to get us in trouble. She refused to take her medications and held them in her hand, charge nurse was called to room. Patient called this nurse a "White Hole! and told this nurse to leave the room." because she wanted Zofran and it was not due for one more hour. This nurse left the room after she took the medication, She then Hollered out that she pulled her IV/SL out of her Rt. shoulder, and that she was bleeding, she then called the electrician powerhouse, thru the bias cutting machine operator vertical and started making up stories saying that this nurse wish she dies, and then she made statements saying that she is going to intentionally put herself on the floor. Charge nurse MAGAYL Bell went back into the room and she told Arabella she wanted to use the BSC, she asked MONA Vragas for assistance and Patient screamed out, 'Why did you bring Sam in here!" Sam stepped out of the room right away, Patient called someone on the phone and said, "The White Hole, Black Ass! here wish that your Mama was and then they bring Sam in here next! I'm just going put myself on the floor!" MAGALY Roldaninternational trade manager came up to unit to talk with her.
--- NOTE | 2019-11-23 22:40 | NUR ---
While administering Zofran IV to Patient for Nausea, Patient apologized to this nurse, "I am sorry for everything I said and acted towards you. Please can we start over?" This nurse agreed to start over and Patient went to sleep.
[2019-11-24] MEDS: oxyCODONE/APAP 10/325 1 TAB TABLET PO PRN ×4 (02:38→22:48)
--- NOTE | 2019-11-24 02:38 | NUR ---
Patient woke up screaming and calling out! "Adamaris! Arabella! Please help, Me!" She also put on her call light, Upon entering Patient's room noted that she is sitting up and still hollering out, "Help me!" she had pulled out her IV/SL from her Rt. shoulder for real this time, with some small amount of blood is noted on her bed linen, this nurse and assigned LEAD TRAINER changed her gown and bed linen, she is a hard stick, unable attempt another IV on her at this time, will see if dayshift can have better luck or if MD just want to attempt in AM.
[2019-11-24 03:05] VITALS: BP 179/36
[2019-11-24 07:00] VITALS: BP 158/36
[2019-11-24] MEDS: INSULIN LISPRO 300 UNITS/3 ML VIAL. SQ SCH ×3 (08:00→17:00)
[2019-11-24] MEDS: amLODIPine BESYLATE 10 MG TABLET PO SCH (08:49)
[2019-11-24] MEDS: FOLIC/VIT B COMP W-C (RENAL) TABLET. PO SCH (08:49)
[2019-11-24] MEDS: SERTRALINE 50 MG TABLET. PO SCH (08:49)
[2019-11-24] MEDS: LEVOTHYROXINE 50 MCG TABLET PO SCH (08:49)
[2019-11-24] MEDS: CARVEDILOL 6.25 MG TABLET. PO SCH ×2 (08:49→17:57)
[2019-11-24] MEDS: CLOPIDOGREL BISULFATE 75 MG TABLET PO SCH (08:50)
[2019-11-24] MEDS: LISINOPRIL 20 MG TABLET PO SCH (08:50)
[2019-11-24] MEDS: hydrALAZINE 25 MG TABLET PO SCH ×3 (08:50→20:27)
[2019-11-24] MEDS: HEPARIN for SUB-Q USE 5,000 UNIT/ML VIAL. SQ SCH ×2 (08:53→21:07)
[2019-11-24 11:00] VITALS: BP 173/51
[2019-11-24] MEDS ORDERED: POLYETHYLENE GLYCOL 3350 17 GM PACKET. PO SCH (12:00)
[2019-11-24] MEDS ORDERED: ONDANSETRON ODT 4 MG TAB.RAPDIS. PO PRN (12:15)
--- NOTE | 2019-11-24 14:05 | PDOC ---
Renal-Progress Notes Subjective Notes Notes NO NEW COMPLAINTS History of Present Illness Hx of present illness STABLE Vitals Vitals Vital Signs Date Time Temp Pulse Resp B/P (MAP) Pulse Ox O2 Delivery O2 Flow Rate FiO2 11/24/19 08:50 76 158/36 11/24/19 07:50 Room Air 11/24/19 07:00 98.0 16 98.0 11/24/19 03:38 95 Weight Weight [ ] I.O. Intake and Output Intake and Output 11/24/19 07:00 Intake Total 1120 ml Output Total 0 ml Balance 1120 ml Intake Oral 1120 ml Output Urine Total 0 ml # Voids 1 # Bowel Movements 2 Labs Labs Laboratory Tests Test 11/23/19 16:46 11/23/19 21:22 11/24/19 08:18 11/24/19 11:43 Glucose (Fingerstick) 100 mg/dL (70-99) 116 mg/dL (70-99) 123 mg/dL (70-99) 159 mg/dL (70-99) Review of Systems Constitutional: yes: weakness, alert, oriented Ears/Nose/Throat: Yes: no symptom reported Eyes: Yes: no symptom reported Pulmonary: Yes no symptom reported Cardiovascular: Yes no symptom reported Gastrointestional: Yes: constipation Genitourinary: Yes: no symptom reported Musculoskeletal: Yes: muscle stiffness, other (LEFT ARM PAIN) Skin: Yes no symptom reported Psychiatric/Neurological: Yes: no symptom reported Physical Exam General Appearance: no apparent distress, oriented Skin: warm Respiratory: bilateral CTA Heart: S1S2, RRR Abdomen: soft, bowel sounds present, no hepatosplenomegaly Genitourinary: bladder flat Extremities: pulses present, other (LEFT ARM AVF WITH A GOOD THRILL AND BRUIT) Neurology: alert, oriented Musculoskeletal: Osteoarthritis Assessment Assessment IMP LEFT ARM ACCESS PAIN ESRD - MWF NON COMPLIANCE HTN ANEMIA PSYCHOSIS VS PERSONALITY DISORDER PLAN SHE HAD SOME PAIN OVER THE ACCESS SITE AT THE CANNULATION SITE. SHE HAS A LEFT ARM BRACHIO-BASILIC GRAFT WITH A GREAT THRILL AND BRUIT. NO EVIDENCE OF ANY INFECTION OR PSEUDOANEURYSMAL DILATIONS. OK TO D/C FROM RENAL STANDPOINT. NEXT HD TOMORROW IF STILL HERE BENY PAINTER MD Nov 24, 2019 14:05
[2019-11-24 15:30] VITALS: BP 143/45
[2019-11-24] MEDS ORDERED: BENZOCAINE 10% ORAL GEL 7GM TUBE. TP PRN (18:45)
[2019-11-24 19:00] VITALS: BP 142/42
--- NOTE | 2019-11-24 19:03 | PDOC ---
[facility] PROGRESS NOTE Date of Service DOS: DATE: 11/24/19 TIME: 19:01 Chief Complaint Chief Complaint Acute left upper extremity pain at AVF site Normocytic anemia due to ESRD Troponinemia Volume overload History of atrial fibrillation CHF COPD Depression Diabetes mellitus type 2 GERD Dyslipidemia Peripheral neuropathy ESRD on HD MWF Bedridden status due to bilateral lower extremity amputation Constipation improved Appreciate nephrology recommendations Continue bowel regimen Will discharge after 1 session of hemodialysis tomorrow Inpatient pain control Continue 300 mg gabapentin Restart home antihypertensive medications with with systolic BP goal between 160-1 80 Heparin for DVT prophylaxis ADA diet Full code Discussed with RN and SW Disposition inpatient pain control Surrogate decision maker is the unknown History of Present Illness History of Present Illness 59-year-old female with multiple morbidities which includes end-stage renal disease, CHF, COPD, diabetes who presents with left upper extremity pain near her fistula site after finishing her dialysis with about 20 minutes left. Pain is described as sharp and nonradiating and there is no associated symptoms. There are no alleviating or exacerbating factors at this time. Denies fevers, chest pain, nausea vomiting, diarrhea, or bloody stools. Patient seen and examined bedside this morning patient describes abdominal pains. Patient also describes what seems to be her chronic peripheral neuropathy pains near her prior incision sites from her bilateral AKA stumps and wear her permacath was. Vitals/I&O Vitals/I&O: Vital Signs Date Time Temp Pulse Resp B/P (MAP) Pulse Ox O2 Delivery O2 Flow Rate FiO2 11/24/19 18:41 Room Air 11/24/19 17:57 73 143/45 11/24/19 15:30 97.7 16 95 97.7 I & O 11/23/19 11/23/19 11/24/19 15:00 23:00 07:00 Intake Total 480 ml 400 ml 240 ml Output Total 0 ml Balance 480 ml 400 ml 240 ml Physical Exam Physical Exam: GEN: No apparent distress. Alert and oriented HEENT: Normal cephalic, atraumatic, external auditory canals are patent EYES: Extraocular muscles are intact, pupil are equally round and reactive to light and accommodation MUSCULOSKELETAL: Well developed , well nourished, good range of motion ENDOCRINE: No thyromegaly was palpated LYMPHATICS: No cervical chain or axillary nodes were noted HEMATOPOIETIC: No bruising NECK: Supple, no JVD, no thyromegaly was noted LUNGS: Clear to auscultation in all lung berumen without rhonchi or wheezing HEART: RRR, S!, S2 present. Peripheral pulses intact, no obvious murmurs noted ABDOMEN: Soft, nontender. Positive bowel sounds, no organomegaly, normal bowel sounds EXTREMITIES: Left upper extremity with palpable thrill in the AV fistula. Bilateral lower extremity AKA with well-healed stump incisions. Right middle finger amputated. Well-healed incision. NEUROLOGIC: Normal speech and tone. A&O x 3, moves all extremities, no obvious focal deficits PSYCHIATRIC: Normal affect, normal mood. Stable SKIN: No ulcerations or rashes, good skin turgor, no jaundice VASCULAR: Good capillary refill, neurovascular bundle appears to be intact Lungs: Clear Labs Labs: Laboratory Tests Test 11/23/19 21:22 11/24/19 08:18 11/24/19 11:43 11/24/19 16:15 Glucose (Fingerstick) 116 mg/dL (70-99) 123 mg/dL (70-99) 159 mg/dL (70-99) 148 mg/dL (70-99) Assessment and Plan Assessmemt and Plan Problems Medical Problems: (1) Pain from A/V fistula Status: Acute Comment Review of Relevant I have reviewed the following items pamela (where applicable) has been applied. Medications: Current Medications Medications (Trade) Dose Ordered Sig/Clarence Route PRN Reason Start Time Stop Time Status Last Admin Dose Admin Gabapentin (Neurontin) 300 mg HS PO 11/23/19 21:00 11/23/19 21:24 Amlodipine Besylate (Norvasc) 10 mg DAILY PO 11/24/19 09:00 11/24/19 08:49 Atorvastatin Calcium (Lipitor) 40 mg HS PO 11/23/19 21:00 11/23/19 21:24 Clopidogrel Bisulfate (Plavix) 75 mg DAILYWBKFT PO 11/24/19 08:00 11/24/19 08:50 Vitamin B Complex/ Vitamin C (Pinky-Shreya) 1 tab DAILY PO 11/24/19 09:00 11/24/19 08:49 Hydralazine HCl (Apresoline) 25 mg TID PO 11/23/19 21:00 11/24/19 14:06 Levothyroxine Sodium (Synthroid) 50 mcg DAILY PO 11/24/19 09:00 11/24/19 08:49 Lisinopril (Prinivil) 20 mg DAILY PO 11/24/19 09:00 11/24/19 08:50 Sertraline HCl (Zoloft) 50 mg DAILY PO 11/24/19 09:00 11/24/19 08:49 Heparin Sodium (Porcine) (Heparin Sodium) 5,000 unit Q12HR SQ 11/23/19 21:00 11/23/19 21:32 Ondansetron HCl (Zofran Odt) 4 mg PRN Q6HRS PRN PO NAUSEA/VOMITING 11/24/19 12:15 11/24/19 12:20 Justifications for Admission Other Justification SOHAM DELCID MD Nov 24, 2019 19:03
[2019-11-24] MEDS: ATORVASTATIN CALCIUM 40 MG TABLET. PO SCH (20:25)
[2019-11-24] MEDS: GABAPENTIN 300 MG CAPSULE. PO SCH (20:25)
[2019-11-24] MEDS: diphenhydrAMINE HCL 25 MG CAPSULE PO PRN (20:37)
[2019-11-24] MEDS ORDERED: DARBEPOETIN ALFA 60 MCG/0.3 ML DISP.SYRIN. SQ SCH (21:00)
[2019-11-24] MEDS ORDERED: SENNOSIDES/DOCUSATE 8.6/50MG TABLET. PO PRN (21:00)
[2019-11-24 23:00] VITALS: BP 152/35
[2019-11-25] MEDS: oxyCODONE/APAP 10/325 1 TAB TABLET PO PRN ×4 (03:46→17:32)
[2019-11-25] MEDS: diphenhydrAMINE HCL 25 MG CAPSULE PO PRN (03:47)
[2019-11-25 07:00] VITALS: BP 126/29
--- NOTE | 2019-11-25 07:06 | EKG ---
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
[2019-11-25] MEDS: CARVEDILOL 6.25 MG TABLET. PO SCH (08:00)
[2019-11-25] MEDS: INSULIN LISPRO 300 UNITS/3 ML VIAL. SQ SCH ×3 (08:00→17:00)
[2019-11-25] MEDS: HEPARIN for SUB-Q USE 5,000 UNIT/ML VIAL. SQ SCH (09:00)
[2019-11-25] MEDS: amLODIPine BESYLATE 10 MG TABLET PO SCH (09:00)
[2019-11-25] MEDS: hydrALAZINE 25 MG TABLET PO SCH ×2 (09:00→14:00)
[2019-11-25] MEDS: LISINOPRIL 20 MG TABLET PO SCH (09:00)
[2019-11-25] MEDS ORDERED: cloNIDine TTS-2 1 PATCH PATCH TD SCH (09:00)
[2019-11-25 09:36] LABS: HEMATOCRIT 24.5 % (36.0-47.0); HEMOGLOBIN 8.3 g/dL (12.0-15.5); RED BLOOD COUNT 2.52 x10^6/uL (3.50-5.40); RED CELL DISTRIBUTION WIDTH 19.2 % (11.5-14.5); WHITE BLOOD COUNT 7.7 x10^3/uL (4.0-11.0)
[2019-11-25 09:53] LABS: CALCIUM 8.8 mg/dL (8.5-10.1); CREATININE 4.1 mg/dL (0.6-1.0); GFR 13.6; POTASSIUM 5.6 mmol/L (3.5-5.1)
--- NOTE | 2019-11-25 10:04 | PDOC ---
DATE OF SERVICE DATE: 11/25/19 TIME: 10:04 SUBJECTIVE ROS seen on HD, tolerating well OBJECTIVE Vital Signs Vital Signs Date Time Temp Pulse Resp B/P (MAP) Pulse Ox O2 Delivery O2 Flow Rate FiO2 11/25/19 08:56 18 95 Room Air 11/25/19 07:00 98.0 68 126/29 (61) 2.0 98.0 I & 0 Intake and Output 11/25/19 07:00 Intake Total 720 ml Output Total 0 ml Balance 720 ml Intake Oral 720 ml Output Urine Total 0 ml # Voids 1 # Bowel Movements 1 PHYSICAL EXAM Physical Exam General: NAD HEENT: PERRLA, OM moist Neck Supple Lungs: dec BS , Non labored Heart: S1S2, RRR, n Abdomen: Normal bowel sounds, Soft, No tenderness, No Calvillo Extremities: Bila BKA , s/p amputation Rt middle finger , AVF + Skin: No rash Neuro- Grossly Normal DIAGNOSIS/ASSESSMENT Assessment & Plan ESRD - On HD MWF seen on HD, tolerating well, continue as ordered , Eddie Baptiste Left arm access pain - AVF evalauted by Dr. 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 Can be dced from renal standpoint COMMENT/RELEVANT DATA Meds Current Medications Medications (Trade) Dose Ordered Sig/Clarence Start Time Stop Time Status Last Admin Dose Admin Acetaminophen (Tylenol) 1,000 mg 1X ONCE 11/22/19 20:00 11/22/19 20:05 DC Amlodipine Besylate (Norvasc) 10 mg DAILY 11/24/19 09:00 11/24/19 08:49 10 MG Atorvastatin Calcium (Lipitor) 40 mg HS 11/23/19 21:00 11/24/19 20:25 40 MG Benzocaine (Ora-Jel) 1 herber PRN QID PRN 11/24/19 18:45 11/24/19 20:38 1 HERBER Carvedilol (Coreg) 12.5 mg BIDWMEALS 11/23/19 17:00 11/24/19 17:57 12.5 MG Clonidine HCl (Catapres Tts-2) 1 patch WEEKLY 11/25/19 09:00 Clopidogrel Bisulfate (Plavix) 75 mg DAILYWBKFT 11/24/19 08:00 11/24/19 08:50 75 MG Darbepoetin Jarrett (ARANESP for DIALYSIS PTS) 60 mcg WEEKLYHS 11/24/19 21:00 11/24/19 20:32 60 MCG Dextrose (Dextrose 50%-Water Syringe) 12.5 gm PRN Q15MIN PRN 11/23/19 15:30 Diphenhydramine HCl (Benadryl) 25 mg PRN Q6HRS PRN 11/22/19 22:15 11/25/19 03:47 25 MG Gabapentin (Neurontin) 300 mg HS 11/23/19 21:00 11/24/19 20:25 300 MG Heparin Sodium (Porcine) (Heparin Sodium) 5,000 unit Q12HR 11/23/19 21:00 11/24/19 21:07 5,000 UNIT Hydralazine HCl (Apresoline) 25 mg TID 11/23/19 21:00 11/24/19 20:27 25 MG Insulin Human Lispro (HumaLOG) 0-5 UNITS TIDWMEALS 11/23/19 17:00 Levothyroxine Sodium (Synthroid) 50 mcg DAILY 11/24/19 09:00 11/24/19 08:49 50 MCG Lisinopril (Prinivil) 20 mg DAILY 11/24/19 09:00 11/24/19 08:50 20 MG Ondansetron HCl (Zofran Odt) 4 mg PRN Q6HRS PRN 11/24/19 12:15 11/24/19 12:20 4 MG Ondansetron HCl (Zofran) 4 mg PRN Q6HRS PRN 11/22/19 23:00 11/24/19 12:08 DC 11/23/19 22:39 4 MG Oxycodone/ Acetaminophen (Percocet 10/325) 1 tab PRN Q4HRS PRN 11/22/19 22:15 11/25/19 08:56 1 TAB Polyethylene Glycol (miraLAX PACKET) 17 gm Q6HRS 11/24/19 12:00 11/24/19 12:33 DC Prochlorperazine Maleate (Compazine) 5 mg PRN TID PRN 11/23/19 15:30 Senna/Docusate Sodium (Senna Plus) 1 tab PRN BID PRN 11/24/19 21:00 11/24/19 22:51 1 TAB Sertraline HCl (Zoloft) 50 mg DAILY 11/24/19 09:00 11/24/19 08:49 50 MG Vitamin B Complex/ Vitamin C (Pinky-Shreya) 1 tab DAILY 11/24/19 09:00 11/24/19 08:49 1 TAB Lab Laboratory Tests Test 11/24/19 11:43 11/24/19 16:15 11/24/19 20:41 11/25/19 07:30 Glucose (Fingerstick) 159 mg/dL (70-99) 148 mg/dL (70-99) 137 mg/dL (70-99) 166 mg/dL (70-99) Test 11/25/19 09:25 White Blood Count 7.7 x10^3/uL (4.0-11.0) Red Blood Count 2.52 x10^6/uL (3.50-5.40) Hemoglobin 8.3 g/dL (12.0-15.5) Hematocrit 24.5 % (36.0-47.0) Mean Corpuscular Volume 97 fL (79-100) Mean Corpuscular Hemoglobin 33 pg (25-35) Mean Corpuscular Hemoglobin Concent 34 g/dL (31-37) Red Cell Distribution Width 19.2 % (11.5-14.5) Platelet Count 259 x10^3/uL (140-400) Sodium Level 138 mmol/L (136-145) Potassium Level 5.6 mmol/L (3.5-5.1) Chloride Level 101 mmol/L (98-107) Carbon Dioxide Level 30 mmol/L (21-32) Anion Gap 7 (6-14) Blood Urea Nitrogen 40 mg/dL (7-20) Creatinine 4.1 mg/dL (0.6-1.0) Estimated GFR (Cockcroft-Gault) 13.6 Glucose Level 171 mg/dL (70-99) Calcium Level 8.8 mg/dL (8.5-10.1) Results All relevant outside records, renal labs, imaging studies, telemetry/EKG's were reviewed. Justicifation of Admission Dx: Justifications for Admission: Justification of Admission Dx: N/A Chronic Renal Failure: Hypertension CARMENCITA,DOMINIQUE MD Nov 25, 2019 10:04
[2019-11-25] MEDS ORDERED: IV NORMAL SALINE 1000ML BAG 1,000 ML IV PRN ×2 (10:34)
[2019-11-25] MEDS ORDERED: ALBUMIN HUMAN 25% 200 ML IV PRN (10:45)
[2019-11-25] MEDS ORDERED: DIALYSIS PATIENT. MC PRN (10:45)
--- NOTE | 2019-11-25 13:07 | NUR ---
S[facility]IAGO following. Spoke with RN and reviewed chart. Pt from home with home 02. Pt does out-patient dialysis at [facility], , (fax). Pt refusing LTC at discharge S[facility] following. Addendum: 11/25/19 at 1519 by DRU HENDERSON Pt to discharge home today per RN. S[facility]O faxed updated clinicals to [facility]. No further S[facility] needs at this time. Addendum: 11/25/19 at 1724 by DRU HENDERSON Pt resides at [facility] and has since August. RN to call report to [phone]. Facility and dtr Aimee ([phone]) notified of discharge. Arranged for transport via [facility], . Transport time is 1600. [address] [place] [address] [phone]
[2019-11-25] MEDS: LEVOTHYROXINE 50 MCG TABLET PO SCH (13:59)
[2019-11-25] MEDS: SERTRALINE 50 MG TABLET. PO SCH (14:00)
[2019-11-25] MEDS: CLOPIDOGREL BISULFATE 75 MG TABLET PO SCH (14:02)
[2019-11-25] MEDS: FOLIC/VIT B COMP W-C (RENAL) TABLET. PO SCH (14:02)
[2019-11-25 15:00] VITALS: BP 124/34
--- NOTE | 2019-11-25 15:14 | PDOC ---
[employer] PROGRESS NOTE Date of Service DOS: DATE: 11/25/19 TIME: 15:11 Chief Complaint Chief Complaint Acute left upper extremity pain at AVF site Normocytic anemia due to ESRD Troponinemia Volume overload History of atrial fibrillation CHF COPD Depression Diabetes mellitus type 2 GERD Dyslipidemia Peripheral neuropathy ESRD on HD MWF Bedridden status due to bilateral lower extremity amputation Constipation improved Appreciate nephrology recommendations Continue bowel regimen Will discharge after 1 session of hemodialysis tomorrow Inpatient pain control Continue 300 mg gabapentin Restart home antihypertensive medications with with systolic BP goal between 160-1 80 Heparin for DVT prophylaxis ADA diet Full code Discussed with RN and SW Disposition inpatient pain control Surrogate decision maker is the unknown History of Present Illness History of Present Illness Patient with complaint of nausea. States she vomited last night. She completed HD today without any vomiting. Denies fever. Vitals/I&O Vitals/I&O: Vital Signs Date Time Temp Pulse Resp B/P (MAP) Pulse Ox O2 Delivery O2 Flow Rate FiO2 11/25/19 14:00 20 95 Room Air 11/25/19 07:00 98.0 68 126/29 (61) 2.0 98.0 I & O 11/24/19 11/24/19 11/25/19 15:00 23:00 07:00 Intake Total 480 ml 120 ml 120 ml Output Total 0 ml Balance 480 ml 120 ml 120 ml Physical Exam Physical Exam: GEN: No apparent distress. Alert and oriented HEENT: Normal cephalic, atraumatic, external auditory canals are patent EYES: Extraocular muscles are intact, pupil are equally round and reactive to light and accommodation MUSCULOSKELETAL: Well developed , well nourished, good range of motion ENDOCRINE: No thyromegaly was palpated LYMPHATICS: No cervical chain or axillary nodes were noted HEMATOPOIETIC: No bruising NECK: Supple, no JVD, no thyromegaly was noted LUNGS: Clear to auscultation in all lung berumen without rhonchi or wheezing HEART: RRR, S!, S2 present. Peripheral pulses intact, no obvious murmurs noted ABDOMEN: Soft, nontender. Positive bowel sounds, no organomegaly, normal bowel sounds EXTREMITIES: Left upper extremity with palpable thrill in the AV fistula. Bilateral lower extremity AKA with well-healed stump incisions. Right middle finger amputated. Well-healed incision. NEUROLOGIC: Normal speech and tone. A&O x 3, moves all extremities, no obvious focal deficits PSYCHIATRIC: Normal affect, normal mood. Stable SKIN: No ulcerations or rashes, good skin turgor, no jaundice VASCULAR: Good capillary refill, neurovascular bundle appears to be intact General: Alert Heart: Regular rate Lungs: Clear Abdomen: Other (Nondistended) Extremities: No edema, Normal pulses Skin: No rashes Labs Labs: Laboratory Tests Test 11/24/19 16:15 11/24/19 20:41 11/25/19 07:30 11/25/19 09:25 Glucose (Fingerstick) 148 mg/dL (70-99) 137 mg/dL (70-99) 166 mg/dL (70-99) White Blood Count 7.7 x10^3/uL (4.0-11.0) Red Blood Count 2.52 x10^6/uL (3.50-5.40) Hemoglobin 8.3 g/dL (12.0-15.5) Hematocrit 24.5 % (36.0-47.0) Mean Corpuscular Volume 97 fL (79-100) Mean Corpuscular Hemoglobin 33 pg (25-35) Mean Corpuscular Hemoglobin Concent 34 g/dL (31-37) Red Cell Distribution Width 19.2 % (11.5-14.5) Platelet Count 259 x10^3/uL (140-400) Sodium Level 138 mmol/L (136-145) Potassium Level 5.6 mmol/L (3.5-5.1) Chloride Level 101 mmol/L (98-107) Carbon Dioxide Level 30 mmol/L (21-32) Anion Gap 7 (6-14) Blood Urea Nitrogen 40 mg/dL (7-20) Creatinine 4.1 mg/dL (0.6-1.0) Estimated GFR (Cockcroft-Gault) 13.6 Glucose Level 171 mg/dL (70-99) Calcium Level 8.8 mg/dL (8.5-10.1) Test 11/25/19 13:10 Glucose (Fingerstick) 129 mg/dL (70-99) Review of Systems Review of Systems: Nausea. Denies fever, denies shortness of breath, denies chest pain. Assessment and Plan Assessmemt and Plan Problems Medical Problems: (1) Pain from A/V fistula Status: Acute Comment Review of Relevant I have reviewed the following items pamela (where applicable) has been applied. Medications: Current Medications Medications (Trade) Dose Ordered Sig/Clarence Route PRN Reason Start Time Stop Time Status Last Admin Dose Admin Senna/Docusate Sodium (Senna Plus) 1 tab PRN BID PRN PO CONSTIPATION 11/24/19 21:00 11/24/19 22:51 Darbepoetin Jarrett (ARANESP for DIALYSIS PTS) 60 mcg WEEKLYHS SQ 11/24/19 21:00 11/24/19 20:32 Benzocaine (Ora-Jel) 1 herber PRN QID PRN TP ORAL PAIN 11/24/19 18:45 11/24/19 20:38 Justifications for Admission Other Justification KAT VILLELA MD Nov 25, 2019 15:14
--- NOTE | 2019-11-25 15:25 | PDOC3 ---
Discharge Summary Visit Information Date of Admission: Nov 22, 2019 Date of Discharge: Nov 25, 2019 Final Diagnosis Problems Medical Problems: (1) Pain from A/V fistula Status: Acute Brief Hospital Course Allergies Allergies Coded Allergies Type Severity Reaction Last Updated Verified No Known Drug Allergies 02/27/19 No Vital Signs Vital Signs Date Time Temp Pulse Resp B/P (MAP) Pulse Ox O2 Delivery O2 Flow Rate FiO2 11/25/19 14:00 20 95 Room Air 11/25/19 07:00 98.0 68 126/29 (61) 2.0 98.0 Lab Results Laboratory Tests Test 11/23/19 16:46 11/23/19 21:22 11/24/19 08:18 11/24/19 11:43 Glucose (Fingerstick) 100 mg/dL (70-99) 116 mg/dL (70-99) 123 mg/dL (70-99) 159 mg/dL (70-99) Test 11/24/19 16:15 11/24/19 20:41 11/25/19 07:30 11/25/19 09:25 Glucose (Fingerstick) 148 mg/dL (70-99) 137 mg/dL (70-99) 166 mg/dL (70-99) White Blood Count 7.7 x10^3/uL (4.0-11.0) Red Blood Count 2.52 x10^6/uL (3.50-5.40) Hemoglobin 8.3 g/dL (12.0-15.5) Hematocrit 24.5 % (36.0-47.0) Mean Corpuscular Volume 97 fL (79-100) Mean Corpuscular Hemoglobin 33 pg (25-35) Mean Corpuscular Hemoglobin Concent 34 g/dL (31-37) Red Cell Distribution Width 19.2 % (11.5-14.5) Platelet Count 259 x10^3/uL (140-400) Sodium Level 138 mmol/L (136-145) Potassium Level 5.6 mmol/L (3.5-5.1) Chloride Level 101 mmol/L (98-107) Carbon Dioxide Level 30 mmol/L (21-32) Anion Gap 7 (6-14) Blood Urea Nitrogen 40 mg/dL (7-20) Creatinine 4.1 mg/dL (0.6-1.0) Estimated GFR (Cockcroft-Gault) 13.6 Glucose Level 171 mg/dL (70-99) Calcium Level 8.8 mg/dL (8.5-10.1) Test 11/25/19 13:10 Glucose (Fingerstick) 129 mg/dL (70-99) Laboratory Tests Test 11/24/19 16:15 11/24/19 20:41 11/25/19 07:30 11/25/19 09:25 Glucose (Fingerstick) 148 mg/dL (70-99) 137 mg/dL (70-99) 166 mg/dL (70-99) White Blood Count 7.7 x10^3/uL (4.0-11.0) Red Blood Count 2.52 x10^6/uL (3.50-5.40) Hemoglobin 8.3 g/dL (12.0-15.5) Hematocrit 24.5 % (36.0-47.0) Mean Corpuscular Volume 97 fL (79-100) Mean Corpuscular Hemoglobin 33 pg (25-35) Mean Corpuscular Hemoglobin Concent 34 g/dL (31-37) Red Cell Distribution Width 19.2 % (11.5-14.5) Platelet Count 259 x10^3/uL (140-400) Sodium Level 138 mmol/L (136-145) Potassium Level 5.6 mmol/L (3.5-5.1) Chloride Level 101 mmol/L (98-107) Carbon Dioxide Level 30 mmol/L (21-32) Anion Gap 7 (6-14) Blood Urea Nitrogen 40 mg/dL (7-20) Creatinine 4.1 mg/dL (0.6-1.0) Estimated GFR (Cockcroft-Gault) 13.6 Glucose Level 171 mg/dL (70-99) Calcium Level 8.8 mg/dL (8.5-10.1) Test 11/25/19 13:10 Glucose (Fingerstick) 129 mg/dL (70-99) Brief Hospital Course Ms. Smith is a 59 old female who presented with left fistula pain. Consults requested nephrology. She has a left arm brachial basilic graft with a thrill and bruit. There was no evidence of infection or pseudoaneurysm dilation. She received hemodialysis, and was stable for discharge. Discharge Information Condition at Discharge: Improved, Stable Disposition/Orders: D/C to Home Scheduled Amlodipine Besylate (Amlodipine Besylate) 5 Mg Tablet, 10 MG PO DAILY for blood pressure, (Reported) Entered as Reported by: JENNIE SMITH on 12/05/17809 Last Action: Continued on 11/23/191529 by SOHAM DELCID MD Atorvastatin Calcium (Atorvastatin Calcium) 40 Mg Tablet, 40 MG PO HS for cholesterol, (Reported) Entered as Reported by: JENNIE SMITH on 12/05/17809 Last Action: Continued on 11/23/191529 by SOHAM DELCID MD Bupropion Hcl (Bupropion Xl) 300 Mg Tab.er.24h, 1 TAB PO DAILYWBKFT for antidepressant, #30 Ref 2 (Reported) Entered as Reported by: Marilyn Garibay on 09/23/19 0420 Carvedilol (Carvedilol ) 6.25 Mg Tablet, 12.5 MG PO BIDWMEALS for htn, #60 Prescribed by: PRABHAKAR MOSQUERA on 01/29/19 111 Last Action: Continued on 11/23/191529 by SOHAM DELCID MD Clonidine (Clonidine Tts-2 ) 1 Each Patch.tdwk, 1 PATCH TD WEEKLY for blood pressure, (Reported) Entered as Reported by: VIKI PANG on 03/22/18 1727 Last Action: Continued on 11/23/191529 by SOHAM DELCID MD Clopidogrel Bisulfate (Clopidogrel) 75 Mg Tablet, 75 MG PO DAILYWBKFT for pvd for 30 Days, #30 Prescribed by: SANGEETHA MUELLER MD on 12/26/18 1247 Last Action: Continued on 11/23/191529 by SOHAM DELCID MD Folic Acid/Vitamin B Comp W-C (Pinky-Shreya Tablet) 0.8 Mg Tablet, 1 TAB PO DAILY for esrd, #30 Prescribed by: PRABHAKAR MOSQUERA on 12/10/18 1041 Last Action: Continued on 11/23/191529 by SOHAM DELCID MD Hydralazine Hcl (Hydralazine Hcl) 25 Mg Tablet, 25 MG PO TID for htn, #10 Prescribed by: PRABHAKAR MOSQUERA on 01/29/19 1113 Last Action: Continued on 11/23/191529 by SOHAM DELCID MD Insulin Lispro (Humalog) 100 Unit/1 Ml Insuln.pen, 0 UNITS SQ TIDWMEALS for glucose for 28 Days, #3 Prescribed by: SANGEETHA MUELLER MD on 12/26/18 1247 Lactobacillus Rhamnosus Gg (Culturelle) 1 Each Cap.sprink, 1 CAP PO BID for supplement for 30 Days, #60 Prescribed by: SANGEETHA MUELLER MD on 12/26/18 1247 Latanoprost (Latanoprost) 2.5 Ml Drops, 1 DROP EACHEYE HS, (Reported) Entered as Reported by: ATTILA HAMMOND on 09/24/17 1649 Levothyroxine Sodium (Levothyroxine Sodium) 50 Mcg Tablet, 1 TAB PO DAILY for thyroid, #30 Ref 5 (Reported) Entered as Reported by: VIKI PANG on 03/22/18 1727 Last Action: Continued on 11/23/191529 by SOHAM DELCID MD Lipase/Protease/Amylase (Creon Dr 6,000 Units Capsule) 1 Each Capsule.dr, 1 TAB PO TID for digestion, (Reported) Entered as Reported by: CAROL CHAN on 04/23/18 1236 Lisinopril (Lisinopril) 20 Mg Tablet, 20 MG PO DAILY for FOR HYPERTENSION, Ref 0 (Reported) Entered as Reported by: LAUREN REAVES on 05/27/18748 Last Action: Continued on 11/23/191529 by SOHAM DELCID MD Ranitidine Hcl (Zantac) 300 Mg Tablet, 1 TAB PO QHS for reflux, #90 Ref 3 Prescribed by: DANIELA ALMAZAN D.O. on 08/29/18 2156 Sertraline Hcl (Zoloft) 50 Mg Tablet, 50 MG PO DAILY for ANTI-DEPRESSANT, Ref 0 (Reported) Entered as Reported by: LAUREN REAVES on 05/27/18748 Last Action: Continued on 11/23/191529 by SOHAM DELCID MD [Pantoprazole] 40 MG TABLET.DR, 40 MG PO DAILYAC for GERD for 30 Days, #30 Ref 2 Prescribed by: FELI SHAH MD on 03/07/18 1359 Scheduled PRN Acetaminophen (Tylenol) 325 Mg Capsule, 650 MG PO Q6-8HRS PRN for PAIN, #20 Prescribed by: KIMBERLY DONOHUE MD on 11/14/18 2112 Albuterol Sulfate (Proair Hfa) 8.5 Gm Hfa.aer.ad, 2 PUFF INH BID PRN for SHORTNESS OF BREATH, (Reported) Entered as Reported by: VIKI PANG on 03/22/18 1727 Guaifenesin/Dextromethorphan (Guaifenesin Dm Syrup) 5 Ml Syrup, 10 ML PO PRN Q6HRS PRN for COUGH for 10 Days, #120 Prescribed by: SANGEETHA MUELLER MD on 02/12/19 1404 Ondansetron (Ondansetron Odt) 4 Mg Tab.rapdis, 4 MG PO PRN Q6HRS PRN for NAUSEA/VOMITING 1ST CHOICE for 28 Days, #30 Prescribed by: SANGEETHA MUELLER MD on 12/26/18 1247 Oxycodone/Apap 10-325 (Percocet 10-325 Mg Tablet ) 1 Each Tablet, 1 TAB PO PRN Q4HRS PRN for PAIN , #25 Prescribed by: HARDEEP MUÑOZ on 09/28/19 1025 Prochlorperazine Maleate (Compazine) 5 Mg Tablet, 5 MG PO PRN TID PRN for NAUSEA for 10 Days, #30 Prescribed by: FELI SHAH MD on 08/26/18 1158 Last Action: Continued on 11/23/19 1530 by SOHAM DELCID MD Justicifation of Admission Dx: Justifications for Admission: Justification of Admission Dx: N/A Chronic Renal Failure: Hypertension KAT VILLELA MD Nov 25, 2019 15:25
[2019-11-25] MEDS ORDERED: CARVEDILOL 12.5 MG TABLET. PO SCH (17:00)
== END 2019-11-25 18:10 | disposition home or self-care (01) | DRG 314 ==
LOC: ER 15:40 → 5 NORTH 20:46
PROVIDERS: ADMIT Family Medicine; ATTEND Family Medicine
PROC: 5A1D70Z Performance of Urinary Filtration, Intermittent, Less than 6 Hours Per Day (ICD-10-PCS; principal; 2019-11-25)
DX: T82.848A Pain due to vascular prosthetic devices, implants and grafts, initial encounter (principal); N18.6 End stage renal disease; I13.2 Hypertensive heart and chronic kidney disease with heart failure and with stage 5 chronic kidney disease, or end stage renal disease; I50.40 Unspecified combined systolic (congestive) and diastolic (congestive) heart failure; E44.0 Moderate protein-calorie malnutrition; D63.1 Anemia in chronic kidney disease; K21.9 Gastro-esophageal reflux disease without esophagitis; F41.9 Anxiety disorder, unspecified; G89.29 Other chronic pain; M19.90 Unspecified osteoarthritis, unspecified site; E78.00 Pure hypercholesterolemia, unspecified; E11.51 Type 2 diabetes mellitus with diabetic peripheral angiopathy without gangrene; J44.9 Chronic obstructive pulmonary disease, unspecified; I48.91 Unspecified atrial fibrillation; F32.9 Major depressive disorder, single episode, unspecified; I50.9 Heart failure, unspecified; E78.5 Hyperlipidemia, unspecified; E11.40 Type 2 diabetes mellitus with diabetic neuropathy, unspecified; E11.22 Type 2 diabetes mellitus with diabetic chronic kidney disease; E03.9 Hypothyroidism, unspecified; K59.00 Constipation, unspecified; Y83.8 Other surgical procedures as the cause of abnormal reaction of the patient, or of later complication, without mention of misadventure at the time of the procedure; Y92.89 Other specified places as the place of occurrence of the external cause; Z74.01 Bed confinement status; Z91.19 Patient's noncompliance with other medical treatment and regimen; Z90.49 Acquired absence of other specified parts of digestive tract; Z89.612 Acquired absence of left leg above knee; Z89.611 Acquired absence of right leg above knee; Z89.021 Acquired absence of right finger(s); Z90.710 Acquired absence of both cervix and uterus; Z99.2 Dependence on renal dialysis; Z87.891 Personal history of nicotine dependence; Z79.4 Long term (current) use of insulin; Z79.899 Other long term (current) drug therapy; Z89.512 Acquired absence of left leg below knee; Z89.511 Acquired absence of right leg below knee
CPT/HCPCS: 36415; 74018; 80048; 80076; 82962; 83690; 83880; 84484; 85025; 85027; 85610; 85730; 93005; 96374; 99285; J0882; J1644; J1815; J2405; G0378; Q0163

== ENCOUNTER 2019-11-26 16:41 | Inpatient (IN) | payer MEDICAID ==
[~2019-11-26] VITALS: Ht 157.5 cm; Wt 57.1 kg
[2019-11-26] MEDS ORDERED: MORPHINE SULFATE 4 MG/ML VIAL. IV ONE (17:45)
--- NOTE | 2019-11-26 17:54 | PHYS DOC ---
Past Medical History Past Medical History: Diabetes-Type II Additional Past Medical Histor: neuropathy, cataracts,CHRONIC PAIN,ESRD,PNEUMONIA,SLEEP APNEA (MERY AMAYA DO) Past Medical History: Diabetes-Type II (SAM ZAMBRANO DO) Past Surgical History: Other Additional Past Surgical Histo: bilateral BKA (MERY AMAYA DO) Smoking Status: Unknown if ever smoked Alcohol Use: None Drug Use: None (MERY AMAYA DO) General Adult EDM: Chief Complaint: CHEST PAIN HPI: HPI: Patient is a 59 year old female who was brought here by EMS from home due to diffuse chest pain started this morning. Patient had end-stage renal failure, on hemodialysis. Patient also had diabetes, bilateral BKA. Patient has chronic pain syndrome, she has been admitted to the hospital here numerous times for different medical reason revolving around pain. Patient was just discharged from the hospital yesterday. She called EMS to take her back here today because she had chest pain. (MERY AMAYA DO) Review of Systems: Review of Systems: Constitutional: Denies fever or chills. [] Eyes: Denies change in visual acuity. [] HENT: Denies nasal congestion or sore throat. [] Respiratory: Denies cough or shortness of breath. [] Cardiovascular: Positive chest pain, no edema. GI: Denies abdominal pain, nausea, vomiting, bloody stools or diarrhea. [] : Denies dysuria. [] Musculoskeletal: Denies back pain or joint pain. [] Integument: Denies rash. [] Neurologic: Denies headache, focal weakness or sensory changes. [] Endocrine: Denies polyuria or polydipsia. [] Lymphatic: Denies swollen glands. [] Psychiatric: Denies depression or anxiety. [] (MERY AMAYA DO) Heart Score: HEART Score for Chest Pain: HEART Score for Chest Pain Response (Comments) Value History Slighlty/Non-Suspicious 0 ECG Normal 0 Age >45 - < 65 1 Risk Factors >3 Risk Factors or Hx CAD 2 Troponin < Normal Limit 0 Total 3 Risk Factors: Risk Factors: DM, Current or recent (<one month) smoker, HTN, HLP, family history of CAD, obesity. Risk Scores: Score 0 - 3: 2.5% MACE over next 6 weeks - Discharge Home Score 4 - 6: 20.3% MACE over next 6 weeks - Admit for Clinical Observation Score 7 - 10: 72.7% MACE over next 6 weeks - Early Invasive Strategies (MERY AMAYA DO) Current Medications: Current Medications Medications (Trade) Dose Ordered Sig/Clarence Start Time Stop Time Status Last Admin Dose Admin Morphine Sulfate (Morphine Sulfate) 4 mg 1X ONCE 11/26/19 17:45 11/26/19 17:47 DC (MERY AMAYA DO) Allergies: Allergies: Allergies Coded Allergies Type Severity Reaction Last Updated Verified No Known Drug Allergies 02/27/19 No (MERY AMAYA DO) Physical Exam: PE: Constitutional: Well developed, well nourished, no acute distress, non-toxic appearance. [] HENT: Normocephalic, atraumatic, bilateral external ears normal, oropharynx moist, no oral exudates, nose normal. [] Eyes: PERRLA, EOMI, conjunctiva normal, no discharge. [] Neck: Normal range of motion, no tenderness, supple, no stridor. [] Cardiovascular:Heart rate regular rhythm, no murmur [] Lungs & Thorax: Bilateral breath sounds clear to auscultation [] Abdomen: Bowel sounds normal, soft, no tenderness, no masses, no pulsatile masses. [] Skin: Warm, dry, no erythema, no rash. [] Back: No tenderness, no CVA tenderness. [] Extremities: No tenderness, no cyanosis, no clubbing, ROM intact, no edema. Bilateral BKA, AV fistula on the left side with strong thrill Neurologic: Alert and oriented X 3, normal motor function, normal sensory function, no focal deficits noted. [] Psychologic: Affect normal, judgement normal, mood normal. [] (MERY AMAYA DO) PE: Constitutional: Well developed, well nourished, no acute distress, non-toxic appearance HENT: Normocephalic, atraumatic Eyes: Conjunctiva normal, no discharge Neck: Normal range of motion, supple Lungs & Thorax: No respiratory distress, equal chest rise and fall Abdomen: Soft, no tenderness Skin: Warm, dry, no erythema, no rash Extremities: Bilateral BKA Neurologic: Alert and oriented X 3, no focal deficits noted Psychologic: Affect normal, judgment normal (SAM ZAMBRANO DO) Current Patient Data: Vital Signs: Vital Signs Date Time Temp Pulse Resp B/P (MAP) Pulse Ox O2 Delivery O2 Flow Rate FiO2 11/26/19 16:41 98.1 91 12 176/166 (169) 98 Nasal Cannula 2.0 98.1 (MERY AMAYA DO) EKG: EKG: EKG was done at 09/03 51, heart rate of 88 beats per minutes, no ST segment elevation, sinus rhythm, (MERY AMAYA DO) Radiology/Procedures: Radiology/Procedures: [] (MERY AMAYA DO) Radiology/Procedures: PROCEDURE: CHEST AP ONLY Chest AP portable at 1752: Reason for examination: Chest pain. Comparison is made to previous study dated 11/17/2019. The heart size is upper normal. Mediastinum is unremarkable. Lung berumen show continued patchy infiltrates bilaterally, right greater than left with obscuring of the hemidiaphragms consistent with pleural effusions bilaterally, right greater than left. Infiltrates and pleural effusions appear to have worsened since previous exam. No acute bony abnormalities are seen. There are chronic changes in the proximal right humerus. IMPRESSION: Continued presence of bilateral infiltrates, right greater than left with pleural effusions. This appears to be worsening. Electronically signed by: Brenna Sarkar MD (11/26/2019 6:29 PM) [facility] (SAM ZAMBRANO DO) Course & Med Decision Making: Course & Med Decision Making Pertinent Labs and Imaging studies reviewed. (See chart for details) Patient is a 59-year-old female who presented to ER today for evaluation of chest pain patient was just discharged from the hospital yesterday. Awaiting for lab work, and chest x-ray, care was endorsed to the incoming physician at shift change Dr. Sam ZAMBRANO (MERY AMAYA DO) Course & Med Decision Making 1800- signout received from Dr. Amaya for patient with report of chest pain. Patient pending laboratory and radiological studies. Patient with history of end-stage renal disease. EKG stable. Hyperkalemia noted. Calcium, dextrose, insulin provided. Troponin slightly elevated. More likely secondary to renal dysfunction. Aspirin provided. Patient seen and evaluated by myself. Patient requiring admission for further evaluation and treatment. Discussed with Dr. Wilhelm (hospitalist) who is in agreement with admission. Discussed case with Dr. Aleman (nephrology) regarding. Discussed findings and plan with patient, who acknowledges understanding and agreement. (SAM ZAMBRANO DO) Dragon Disclaimer: Dragon Disclaimer: This electronic medical record was generated, in whole or in part, using a voice recognition dictation system. (MERY AMAYA DO) Departure Departure Impression: Primary Impression: Hyperkalemia Additional Impressions: Chest pain Qualified Codes: R07.9 - Chest pain, unspecified Elevated troponin ESRD (end stage renal disease) on dialysis Disposition: ADMITTED INPATIENT Admitting Physician: SOFI Fuentes) (SAM ZAMBRANO DO) Condition: GUARDED Referrals: NO PCP (PCP) Justicifation of Admission Dx: Justifications for Admission: Justification of Admission Dx: N/A Chronic Renal Failure: Hypertension (MERY AMAYA DO) Justification of Admission Dx: Yes Chronic Renal Failure: Electrolyte Abnormality Comments: Hyperkalemia, Chest pain, elevated troponin (SAM ZAMBRANO DO) Critical Care Time Critical care time was 30 minutes which includes time at bedside, spent in discussion of patient's care with specialists and/or family members, with interpretation of laboratory and/or radiological studies and is exclusive of procedures. (SAM ZAMBRANO DO) MERY AMAYA DO Nov 26, 2019 17:54 SAM ZAMBRANO DO Nov 26, 2019 18:39
[2019-11-26 18:04] LABS: BASO % 1 % (0-3); EOS % 1 % (0-3); HEMATOCRIT 27.1 % (36.0-47.0); HEMOGLOBIN 9.2 g/dL (12.0-15.5); LYMPH % 14 % (24-48); MEAN CORPUSCULAR HEMOGLOBIN 33 pg (25-35); MEAN CORPUSCULAR HGB CONC 34 g/dL (31-37); MEAN CORPUSCULAR VOLUME 98 fL (79-100); MONO # 0.7 x10^3/uL (0.0-1.1); MONO % 9 % (0-9); NEUT # 5.6 x10^3/uL (1.8-7.7); NEUT % 76 % (31-73); PLATELET COUNT 275 x10^3/uL (140-400); RED BLOOD COUNT 2.77 x10^6/uL (3.50-5.40); RED CELL DISTRIBUTION WIDTH 19.2 % (11.5-14.5); WHITE BLOOD COUNT 7.3 x10^3/uL (4.0-11.0)
[2019-11-26 18:21] LABS: ALBUMIN 3.1 g/dL (3.4-5.0); ALBUMIN/GLOBULIN RATIO 0.8 (1.0-1.7); CALCIUM 8.9 mg/dL (8.5-10.1); CREATININE 4.2 mg/dL (0.6-1.0); GFR 13.2; MAGNESIUM 2.4 mg/dL (1.8-2.4); TOTAL BILIRUBIN 0.4 mg/dL (0.2-1.0); TOTAL PROTEIN 6.9 g/dL (6.4-8.2)
[2019-11-26 18:29] LABS: POTASSIUM 6.6 mmol/L (3.5-5.1)
--- NOTE | 2019-11-26 18:32 | RAD ---
Chest AP portable at 1752: Reason for examination: Chest pain. Comparison is made to previous study dated 11/17/2019. The heart size is upper normal. Mediastinum is unremarkable. Lung berumen show continued patchy infiltrates bilaterally, right greater than left with obscuring of the hemidiaphragms consistent with pleural effusions bilaterally, right greater than left. Infiltrates and pleural effusions appear to have worsened since previous exam. No acute bony abnormalities are seen. There are chronic changes in the proximal right humerus. IMPRESSION: Continued presence of bilateral infiltrates, right greater than left with pleural effusions. This appears to be worsening. Electronically signed by: Brenna Sarkar MD (11/26/2019 6:29 PM) MARK
[2019-11-26] MEDS ORDERED: ASPIRIN 325 MG TABLET PO ONE (19:15)
[2019-11-26] MEDS ORDERED: CALCIUM GLUCONATE 1,000 MG/10 ML VIAL. IVP ONE (19:15)
[2019-11-26] MEDS ORDERED: hydrALAZINE 20 MG/ML VIAL. IVP ONE (19:15)
[2019-11-26] MEDS ORDERED: INSULIN REGULAR 100 UNIT/ML 3ML VIAL. IV ONE (19:15)
[2019-11-26] MEDS ORDERED: DEXTROSE 50% 25 GM / 50ML DISP.SYRIN. IV ONE (19:15)
[2019-11-26] MEDS ORDERED: hydrALAZINE 20 MG/ML VIAL. IVP PRN (19:45)
[2019-11-26] MEDS ORDERED: ONDANSETRON PF 4 MG/2 ML VIAL. IV PRN ×2 (19:45→21:45)
[2019-11-26] MEDS ORDERED: DEXTROSE 50% 25 GM / 50ML DISP.SYRIN. IV PRN (19:45)
[2019-11-26] MEDS ORDERED: fentaNYL PF VIAL 100 MCG/2 ML VIAL IV ONE (21:00)
[2019-11-26 21:30] VITALS: BP 174/73
[2019-11-26] MEDS ORDERED: guaiFENesin DM 200MG/20MG 10 ML SYRUP PO PRN (21:45)
[2019-11-26] MEDS ORDERED: ALBUTEROL SULFATE 2.5 MG/3 ML NEBU. INH PRN (21:45)
[2019-11-26] MEDS ORDERED: ONDANSETRON ODT 4 MG TAB.RAPDIS. PO PRN (21:45)
[2019-11-26] MEDS ORDERED: PROCHLORPERAZINE 5 MG TABLET. PO PRN (21:45)
[2019-11-26] MEDS: fentaNYL PF VIAL 100 MCG/2 ML VIAL IVP PRN (22:12)
[2019-11-26] MEDS: ATORVASTATIN CALCIUM 40 MG TABLET. PO SCH (22:13)
[2019-11-26] MEDS: hydrALAZINE 25 MG TABLET PO SCH (22:13)
[2019-11-26] MEDS: LACTOBACILLUS RHAMNOSUS GG 1 CAPSULE. PO SCH (22:13)
[2019-11-26] MEDS: LATANOPROST 0.005% OPHTH SOLUTION 2.5ML BOTTLE. OU SCH (22:37)
[2019-11-26 23:06] VITALS: BP 174/73
[2019-11-26] MEDS: diphenhydrAMINE HCL 25 MG CAPSULE PO PRN (23:14)
[2019-11-27 01:29] LABS: CALCIUM 9.2 mg/dL (8.5-10.1); CREATININE 4.2 mg/dL (0.6-1.0); GFR 13.2
[2019-11-27 01:36] LABS: CHOLESTEROL/HDL RATIO 1.9
[2019-11-27] MEDS: fentaNYL PF VIAL 100 MCG/2 ML VIAL IVP PRN ×6 (04:05→22:16)
[2019-11-27 04:17] VITALS: BP 186/76
[2019-11-27 04:47] LABS: POTASSIUM 6.6 mmol/L (3.5-5.1)
[2019-11-27] MEDS ORDERED: SODIUM POLYSTYRENE SULFON/SORB 15 GM/60 ML ORAL.SUSP. PO ONE (05:30)
[2019-11-27] MEDS: LEVOTHYROXINE 50 MCG TABLET PO SCH (06:23)
[2019-11-27 07:00] VITALS: BP 152/70
[2019-11-27] MEDS ORDERED: IV NORMAL SALINE 1000ML BAG 1,000 ML IV PRN (07:29)
[2019-11-27] MEDS ORDERED: DIALYSIS PATIENT. MC PRN ×2 (07:30)
[2019-11-27] MEDS ORDERED: ALBUMIN HUMAN 25% 200 ML IV PRN (07:30)
--- NOTE | 2019-11-27 07:32 | EKG ---
[facility] [address] [place] [address] Test Date: 2019-11-26 Test Time: 16:51:19 Pat Name: OTTONIEL SMITH Department: Room: Gender: F [employer]: : 1960 Requested By: MERY AMAYA Order Number: [id number] Reading MD: Measurements Intervals Ozan Rate: 88 P: 56 SC: 186 QRS: -38 QRSD: 100 T: 132 QT: 374 QTc: 456 Interpretive Statements SINUS RHYTHM ABNORMAL LEFT AXIS DEVIATION R-S TRANSITION ZONE IN V LEADS DISPLACED TO THE LEFT LEFT ANTERIOR FASCICULAR BLOCK LVH WITH REPOLARIZATION ABNORMALITY ABNORMAL ECG RI6.02 No previous ECG available for comparison
[2019-11-27] MEDS: oxyCODONE/APAP 10/325 1 TAB TABLET PO PRN ×4 (07:51→23:49)
[2019-11-27] MEDS: INSULIN LISPRO 300 UNITS/3 ML VIAL. SQ SCH ×3 (08:00→17:00)
[2019-11-27] MEDS: hydrALAZINE 25 MG TABLET PO SCH ×3 (09:00→20:18)
--- NOTE | 2019-11-27 10:35 | SNU/HH DC ---
DISCHARGE ORDERS DISCHARGE INFORMATION: FINAL DIAGNOSIS Problems Medical Problems: (1) ESRD (end stage renal disease) on dialysis Status: Chronic (2) Hyperkalemia Status: Acute CONDITION ON DISCHARGE: Stable CODE STATUS: Code Status: Full PENITENTIARY: SNF STAY <30 DAYS: No HOSPICE: HOSPICE: No HOSPICE EVAL & TREAT: No LTAC: ADMIT TO LTAC: No POST DISCHARGE ORDERS: ACTIVITY ORDERS: Activity as tolerated WEIGHT BEARING STATUS: Non weight bearing BATHING ORDERS: Shower-keep dressing dry, No Tub Bath until see DIET AFTER DISCHARGE: Renal WOUND/INCISION CARE: No wound care needed CHECKS AFTER DISCHARGE: CHECKS AFTER DISCHARGE: Check blood press - daily, Check blood sugar, ac/hs, Check your Temp as needed TREATMENT/EQUIPMENT ORDERS: ADAPTIVE EQUIPMENT NEEDED: None RESPIRATORY EQUIPMENT NEEDED: Oxygen DISCHARGE MEDICATIONS: Home Meds Active Scripts Oxycodone/Apap 10-325 (PERCOCET 10-325 MG TABLET ) 1 Each Tablet, 1 TAB PO PRN Q4HRS PRN for PAIN , #25 TAB Prov:HARDEEP MUÑOZ MD 09/28/19 Guaifenesin/Dextromethorphan (GUAIFENESIN DM SYRUP) 5 Ml Syrup, 10 ML PO PRN Q6HRS PRN for COUGH for 10 Days, #120 MISC Prov:SANGEETHA MUELLER MD 02/12/19 Carvedilol (CARVEDILOL ) 6.25 Mg Tablet, 12.5 MG PO BIDWMEALS for htn, #60 TAB Prov:PRABHAKAR MOSQUERA MD 01/29/19 Hydralazine Hcl (HYDRALAZINE HCL) 25 Mg Tablet, 25 MG PO TID for htn, #10 TAB Prov:PRABHAKAR MOSQUERA MD 01/29/19 Insulin Lispro (HUMALOG) 100 Unit/1 Ml Insuln.pen, 0 UNITS SQ TIDWMEALS for glucose for 28 Days, #3 EACH Prov:SANGEETHA MUELLER MD 12/26/18 Lactobacillus Rhamnosus Gg (CULTURELLE) 1 Each Cap.sprink, 1 CAP PO BID for sup plement for 30 Days, #60 CAP Prov:SANGEETHA MUELLER MD 12/26/18 Ondansetron (ONDANSETRON ODT) 4 Mg Tab.rapdis, 4 MG PO PRN Q6HRS PRN for NAUSEA/VOMITING 1ST CHOICE for 28 Days, #30 TAB Prov:SANGEETHA MUELLER MD 12/26/18 Clopidogrel Bisulfate (CLOPIDOGREL) 75 Mg Tablet, 75 MG PO DAILYWBKFT for pvd for 30 Days, #30 TAB Prov:SANGEETHA MUELLER MD 12/26/18 Folic Acid/Vitamin B Comp W-C (JOSE GUADALUPE-TORY TABLET) 0.8 Mg Tablet, 1 TAB PO DAILY for esrd, #30 TAB Prov:PRABHAKAR MOSQUERA MD 12/10/18 Acetaminophen (Tylenol) 325 Mg Capsule, 650 MG PO Q6-8HRS PRN for PAIN, #20 CAP Prov:KIMBERLY DONOHUE MD 11/14/18 Ranitidine Hcl (ZANTAC) 300 Mg Tablet, 1 TAB PO QHS for reflux, #90 TAB 3 Refills Prov:DANIELA ALMAZAN DO 08/29/18 Prochlorperazine Maleate (Compazine) 5 Mg Tablet, 5 MG PO PRN TID PRN for NAUSEA for 10 Days, #30 TAB Prov:FELI SHAH MD 08/26/18 [Pantoprazole] 40 MG TABLET. No Conflict Check, 40 MG PO DAILYAC for GERD for 30 Days, #30 2 Refills Prov:FELI SHAH MD 03/07/18 Reported Medications Bupropion Hcl (BUPROPION XL) 300 Mg Tab.er.24h, 1 TAB PO DAILYWBKFT for antide pressant, #30 TAB 2 Refills 09/23/19 Sertraline Hcl (ZOLOFT) 50 Mg Tablet, 50 MG PO DAILY for ANTI-DEPRESSANT, TAB 0 Refills 05/27/18 Lisinopril (LISINOPRIL) 20 Mg Tablet, 20 MG PO DAILY for FOR HYPERTENSION, TAB 0 Refills 05/27/18 Lipase/Protease/Amylase (ELVIA [place] 6,000 UNITS CAPSULE) 1 Each Capsule., 1 TAB PO TID for digestion 04/23/18 Albuterol Sulfate (Proair Hfa) 8.5 Gm Hfa.aer.ad, 2 PUFF INH BID PRN for SHORTNESS OF BREATH, INHALER 03/22/18 Levothyroxine Sodium (LEVOTHYROXINE SODIUM) 50 Mcg Tablet, 1 TAB PO DAILY for thyroid, #30 TAB 5 Refills 03/22/18 Clonidine (CLONIDINE TTS-2 ) 1 Each Patch.tdwk, 1 PATCH TD WEEKLY for blood pressure, PATCH 03/22/18 Amlodipine Besylate (AMLODIPINE BESYLATE) 5 Mg Tablet, 10 MG PO DAILY for blood pressure 12/05/17 Atorvastatin Calcium (ATORVASTATIN CALCIUM) 40 Mg Tablet, 40 MG PO HS for cholesterol 12/05/17 Latanoprost (LATANOPROST) 2.5 Ml Drops, 1 DROP EACHEYE HS 09/24/17 ANGELINA GOMEZ III DO Nov 27, 2019 10:35
--- NOTE | 2019-11-27 10:44 | SSS ---
ADMIT DATE: 11/27/2019 SHORT STAY SUMMARY CHIEF COMPLAINT: Chest pain. HISTORY OF PRESENT ILLNESS: The patient is a pleasant 59-year-old female well known to our service. She suffers from multiple medical issues, most recently with bilateral [id number] amputations within the past year. She also has end-stage renal disease, she is on dialysis. Now, she presents with chest pain, rates it a 7/10. She has associated weakness that has been occurring for several days. She increased her home meds, but that did not work. Moving makes it worse, sitting still makes it better, described as agonizing. I discussed the case with ER physician. She has also got hyperkalemia of 6.6. We are going to admit the patient and consult Nephrology and get her dialyzed. PAST MEDICAL HISTORY: Diabetes, end-stage renal disease on dialysis, neuropathy, cataracts, chronic pain, narcotic seeking behavior, previous pneumonia, respiratory failure, diabetes, bilateral [id number] amputations and finger amputation. ALLERGIES: None. FAMILY HISTORY: Diabetes. SOCIAL HISTORY: She lives in a fpc. Does not drink, smoke or take drugs. MEDICATIONS: Reviewed, please refer to the MRAD. REVIEW OF SYSTEMS: GENERAL: No history of weight change, weakness or fevers. SKIN: No bruising, hair changes or rashes. EYES: No blurred, double or loss of vision. NOSE AND THROAT: No history of nosebleeds, hoarseness or sore throat. CARDIAC: She complains of chest pain. LUNGS: Denies cough, hemoptysis, wheezing or shortness of breath. GASTROINTESTINAL: Denies changes in appetite, nausea, vomiting, diarrhea or constipation. GENITOURINARY: No history of frequency, urgency, hesitancy or nocturia. NEUROLOGIC: Denies history of numbness, tingling, tremor or weakness. PSYCHIATRIC: No history of panic, anxiety or depression. ENDOCRINE: No history of heat or cold intolerance, polyuria or polydipsia. EXTREMITIES: Denies muscle weakness, joint pain, pain on walking or stiffness. PHYSICAL EXAMINATION: VITALS: Within normal limits and are stable. GENERAL: She is irritated, wants some fentanyl. HEENT: Normal cephalic atraumatic, external auditory canals are patent EYES: Extraocular muscles are intact, pupils are equally round and reactive to light and accommodation MUSCULOSKELETAL: Well developed, well nourished, good range of motion ENDOCRINE: No thyromegaly was palpated LYMPHATICS: No cervical chain or axillary nodes were noted HEMATOPOIETIC: No bruising NECK: Supple, no JVD, no thyromegaly was noted. LUNGS: Clear to auscultation in all lung berumen without rhonchi or wheezing. HEART: RRR, S1, S2 present. Peripheral pulses intact, no obvious murmurs were noted. ABDOMEN: Soft, nontender. Positive bowel sounds no organomegaly, normal bowel sounds. EXTREMITIES: She has bilateral uapdp-zpd-utda amputations and she is also missing her left third finger. NEUROLOGIC: Normal speech, normal tone. A & O x3, moves all extremities, no obvious focal deficits. PSYCHIATRIC: She is depressed. SKIN: No ulcerations or rashes, good skin turgor, no jaundice. VASCULAR: Good capillary refill, neurovascular bundle appears to be intact. LABORATORY DATA: White count 7, hemoglobin 9, and platelets 275. Electrolytes: Sodium 136, potassium 6.6, chloride 101, bicarbonate 29, BUN 46, creatinine 4.2, and glucose 119. Troponin 0.09. BNP greater than 35,000. ASSESSMENT AND PLAN: Chest pain, volume overload, and hyperkalemia in a middle-aged female who has end-stage renal disease. Suspect most of this will resolve with dialysis. We will get her dialyzed. We are admitting the patient for overnight. We are going to consult Nephrology. Resume her home meds. DVT prophylaxis. Full code. P.r.n., fentanyl. Case management to assist with discharge planning back to her fpc. Long-term prognosis is guarded because of her multiple comorbidities, but currently she is doing relatively well. ANGELINA GOMEZ DO DR: BRANDIN/franny JOB#: [id number] / [id number]
[2019-11-27 11:40] VITALS: BP 131/46
[2019-11-27] MEDS: FOLIC/VIT B COMP W-C (RENAL) TABLET. PO SCH (12:47)
[2019-11-27] MEDS: buPROPion XL 150 MG TAB.ER.24H. PO SCH (12:51)
[2019-11-27] MEDS: CLOPIDOGREL BISULFATE 75 MG TABLET PO SCH (12:51)
[2019-11-27] MEDS: LACTOBACILLUS RHAMNOSUS GG 1 CAPSULE. PO SCH ×2 (12:51→20:18)
[2019-11-27] MEDS: SERTRALINE 50 MG TABLET. PO SCH (12:51)
[2019-11-27] MEDS: amLODIPine BESYLATE 10 MG TABLET PO SCH (12:51)
[2019-11-27] MEDS: PANTOPRAZOLE 40 MG TABLET.DR. PO SCH (12:51)
--- NOTE | 2019-11-27 12:56 | NUR ---
SS following up with discharge planning. SS reviewed pt chart and discussed with pt RN. Pt is from [facility] and is currently requiring oxygen. Pt has outpatient dialysis at [facility], ; fax [phone]. SS met with pt to discuss discharge planning. Pt reporting that she cannot go back to [facility] and reported that she has no where else to go. Pt and SS discussed with pt's daughter, Aimee. Pt's daughter reported that if pt is agreeable to LTC placement then she is agreeable as well. Pt reported that she would like to go to [facility], ; fax [phone], for LTC placement. CARE assessment completed with pt. SS phoned and faxed referral, discharge orders, and CARE assessment to [facility]. COVID19 test requested. Pt's RN notified. SS will await acceptance decision and COVID19 test result and will proceed accordingly.
--- NOTE | 2019-11-27 12:57 | PDOC2 ---
CONSULT Date of Consult Date of Consult DATE: 11/27/19 TIME: 12:53 Reason for Consult Reason for Consult: ESRD Source Source: Chart review, Patient History of Present Illness Reason for Visit: Patient is a 59 year old AA female who was brought here by EMS from home due to diffuse chest pain started this morning. Patient had end-stage renal failure, on hemodialysis. Patient also had diabetes, bilateral BKA. Patient has chronic pain syndrome, she has [facility] - [facility], [facility], [place], [facility]- numerous times for different medical reason revolving around pain. Patient was just discharged from the hospital ON 11/24 She called EMS to take her back here today because she had chest pain. Past Medical History Cardiovascular: CHF, HTN, Hyperlipidemia Pulmonary: Asthma, COPD CENTRAL NERVOUS SYSTEM: Periperal neuropathy GI: GERD Heme/Onc: Anemia NOS Hepatobiliary: No pertinent hx Psych: Bipolar, Depression Musculoskeletal: Osteoarthritis Rheumatologic: Fibromyalgia Infectious disease: No pertinent hx Renal/: Chronic renal failure Endocrine: Diabetes, Hypothyroidism, Hyperparathyroidism Past Surgical History Past Surgical History: Hysterectomy, Other Family History Family History: Heart Disease, High Cholestrol, Hypertension Social History ALCOHOL: none Drugs: None Lives: Alone Current Problem List Problem List Problems Medical Problems: (1) ESRD (end stage renal disease) on dialysis Status: Chronic (2) Hyperkalemia Status: Acute Current Medications Current Medications Current Medications Morphine Sulfate (Morphine Sulfate) 4 mg 1X ONCE IV Last administered on 11/26/19at 18:21; Start 11/26/19 at 17:45; Stop 11/26/19 at 17:47; Status DC Aspirin (Molly Aspirin) 325 mg 1X ONCE PO Last administered on 11/26/19at 19:02; Start 11/26/19 at 19:15; Stop 11/26/19 at 19:16; Status DC Insulin Human Regular (HumuLIN R VIAL) 10 unit 1X ONCE IV Last administered on 11/26/19at 19:02; Start 11/26/19 at 19:15; Stop 11/26/19 at 19:16; Status DC Dextrose (Dextrose 50%-Water Syringe) 25 gm 1X ONCE IV Last administered on 11/26/19at 19:01; Start 11/26/19 at 19:15; Stop 11/26/19 at 19:16; Status DC Calcium Gluconate (Calcium Gluconate) 1,000 mg 1X ONCE IVP Last administered on 11/26/19at 19:00; Start 11/26/19 at 19:15; Stop 11/26/19 at 19:16; Status DC Hydralazine HCl (Apresoline Inj) 20 mg 1X ONCE IVP Last administered on 11/26/19at 19:09; Start 11/26/19 at 19:15; Stop 11/26/19 at 19:16; Status DC Ondansetron HCl (Zofran) 4 mg PRN Q8HRS PRN IV NAUSEA/VOMITING; Start 11/26/19 at 19:45; Stop 11/26/19 at 21:39; Status DC Insulin Human Lispro (HumaLOG) 0-5 UNITS TIDWMEALS SQ ; Start 11/27/19 at 08:00 Dextrose (Dextrose 50%-Water Syringe) 12.5 gm PRN Q15MIN PRN IV SEE COMMENTS; Start 11/26/19 at 19:45 Hydralazine HCl (Apresoline Inj) 10 mg PRN Q4HRS PRN IVP ELEVATED BP, SEE CO MMENTS Last administered on 11/27/19at 04:15; Start 11/26/19 at 19:45 Fentanyl Citrate (Fentanyl 2ml Vial) 50 mcg 1X ONCE IV Last administered on 11/26/19at 20:39; Start 11/26/19 at 21:00; Stop 11/26/19 at 21:01; Status DC Ondansetron HCl (Zofran) 4 mg PRN Q4HRS PRN IV NAUSEA/VOMITING 1st choice; Start 11/26/19 at 21:45 Albuterol Sulfate (Ventolin Neb Soln) 2.5 mg PRN BID PRN INH SHORTNESS OF BREATH; Start 11/26/19 at 21:45 Amlodipine Besylate (Norvasc) 10 mg DAILY PO ; Start 11/27/19 at 09:00 Atorvastatin Calcium (Lipitor) 40 mg HS PO Last administered on 11/26/19at 22:13; Start 11/26/19 at 22:00 Carvedilol (Coreg) 12.5 mg BIDWMEALS PO ; Start 11/27/19 at 08:00 Clonidine HCl (Catapres Tts-2) 1 patch WEEKLY TD ; Start 12/03/19 at 09:00 Clopidogrel Bisulfate (Plavix) 75 mg DAILYWBKFT PO ; Start 11/27/19 at 08:00 Vitamin B Complex/ Vitamin C (Pinky-Shreya) 1 tab DAILY PO ; Start 11/27/19 at 09:00 Guaifenesin (Robitussin Dm) 10 ml PRN Q6HRS PRN PO COUGH; Start 11/26/19 at 21:45 Hydralazine HCl (Apresoline) 25 mg TID PO Last administered on 11/26/19at 22:13; Start 11/26/19 at 22:00 Lactobacillus Rhamnosus (Culturelle) 1 cap BID PO Last administered on 11/26/19at 22:13; Start 11/26/19 at 22:00 Latanoprost (Xalatan) 1 drop HS OU Last administered on 11/26/19at 22:37; Start 11/26/19 at 22:00 Levothyroxine Sodium (Synthroid) 50 mcg DAILY06 PO Last administered on 11/27/19at 06:23; Start 11/27/19 at 06:00 Ondansetron HCl (Zofran Odt) 4 mg PRN Q6HRS PRN PO NAUSEA/VOMITING 1ST CHOICE; Start 11/26/19 at 21:45 Oxycodone/ Acetaminophen (Percocet 10/325) 1 tab PRN Q4HRS PRN PO SEVERE PAIN 7-10 Last administered on 11/27/19at 07:51; Start 11/26/19 at 21:45 Prochlorperazine Maleate (Compazine) 5 mg PRN TID PRN PO NAUSEA 2ND CHOICE; Start 11/26/19 at 21:45 Sertraline HCl (Zoloft) 50 mg DAILY PO ; Start 11/27/19 at 09:00 Bupropion HCl (Wellbutrin Xl) 300 mg DAILY PO ; Start 11/27/19 at 09:00 Amylase/Lipase/ Protease (Zenpep 5,000) 1 cap TIDWMEALS PO ; Start 11/27/19 at 08:00 Pantoprazole Sodium (Protonix) 40 mg DAILYAC PO ; Start 11/27/19 at 07:30 Fentanyl Citrate (Fentanyl 2ml Vial) 50 mcg PRN Q3HRS PRN IVP SEVERE PAIN 7-10 Last administered on 11/27/19at 10:02; Start 11/26/19 at 22:00 Diphenhydramine HCl (Benadryl) 25 mg PRN Q6HRS PRN PO ITCHING Last administered on 11/26/19at 23:14; Start 11/26/19 at 23:00 Sodium Polystyrene Sulfonate (Kayexalate) 15 gm 1X ONCE PO Last administered on 11/27/19at 06:21; Start 11/27/19 at 05:30; Stop 11/27/19 at 05:31; Status DC Sodium Chloride 1,000 ml @ 1,000 mls/hr Q1H PRN IV hypotension; Start 11/27/19 at 07:29; Stop 11/27/19 at 13:28 Albumin Human 200 ml @ 200 mls/hr 1X PRN PRN IV Hypotension; Start 11/27/19 at 07:30; Stop 11/27/19 at 13:29 Info (PHARMACY MONITORING -- do not chart) 1 each PRN DAILY PRN MC SEE COMMENTS; Start 11/27/19 at 07:30; Status UNV Info (PHARMACY MONITORING -- do not chart) 1 each PRN DAILY PRN MC SEE COMMENTS; Start 11/27/19 at 07:30 Active Scripts Active Percocet 10-325 Mg Tablet (Oxycodone/Acetaminophen) 1 Each Tablet 1 Tab PO PRN Q4HRS PRN Guaifenesin Dm Syrup (Guaifenesin/Dextromethorphan) 5 Ml Syrup 10 Ml PO PRN Q6HRS PRN 10 Days Carvedilol (Carvedilol) 6.25 Mg Tablet 12.5 Mg PO BIDWMEALS Hydralazine Hcl 25 Mg Tablet 25 Mg PO TID Humalog (Insulin Lispro) 100 Unit/1 Ml Insuln.pen 0 Units SQ TIDWMEALS 28 Days Culturelle (Lactobacillus Rhamnosus Gg) 1 Each Cap.sprink 1 Cap PO BID 30 Days Ondansetron Odt (Ondansetron) 4 Mg Tab.rapdis 4 Mg PO PRN Q6HRS PRN 28 Days Clopidogrel (Clopidogrel Bisulfate) 75 Mg Tablet 75 Mg PO DAILYWBKFT 30 Days Pinky-Shreya Tablet (Folic Acid/Vitamin B Comp W-C) 0.8 Mg Tablet 1 Tab PO DAILY Tylenol (Acetaminophen) 325 Mg Capsule 650 Mg PO Q6-8HRS PRN Zantac (Ranitidine Hcl) 300 Mg Tablet 1 Tab PO QHS Compazine (Prochlorperazine Maleate) 5 Mg Tablet 5 Mg PO PRN TID PRN 10 Days [Pantoprazole] 40 MG Tablet. 40 Mg PO DAILYAC 30 Days Reported Bupropion Xl (Bupropion Hcl) 300 Mg Tab.er.24h 1 Tab PO DAILYWBKFT Zoloft (Sertraline Hcl) 50 Mg Tablet 50 Mg PO DAILY Lisinopril 20 Mg Tablet 20 Mg PO DAILY Shante Knowles 6,000 Units Capsule (Lipase/Protease/Amylase) 1 Each Capsule. 1 Tab PO TID Proair Hfa (Albuterol Sulfate) 8.5 Gm Hfa.aer.ad 2 Puff INH BID PRN Levothyroxine Sodium 50 Mcg Tablet 1 Tab PO DAILY Clonidine Tts-2 (Clonidine) 1 Each Patch.tdwk 1 Patch TD WEEKLY Amlodipine Besylate 5 Mg Tablet 10 Mg PO DAILY Atorvastatin Calcium 40 Mg Tablet 40 Mg PO HS Latanoprost 2.5 Ml Drops 1 Drop EACHEYE HS Allergies Allergies: Coded Allergies: No Known Drug Allergies (Unverified , 02/27/19) ROS Review of System Per HPI, rest of the ROS is negative Physical Exam Physical Exam General: NAD HEENT: PERRLA, OM moist Neck Supple Lungs: dec BS , Non labored Heart: S1S2, RRR, n Abdomen: Normal bowel sounds, Soft, No tenderness, No Calvillo Extremities: Bila BKA , s/p amputation Rt middle finger , AVF + Skin: No rash Neuro- Grossly Normal Vital Signs Vital Signs Date Time Temp Pulse Resp B/P (MAP) Pulse Ox O2 Delivery O2 Flow Rate FiO2 11/27/19 11:40 98.3 75 20 131/46 (74) 96 Nasal Cannula 3.0 98.3 Assessment & Plan ESRD - On HD MWF seen on HD, tolerating well, continue as ordered , Osman Daniels Hyperkalemia at presentation HD today, Orders osman Daniles Left arm access pain - AVF evalauted by Dr. 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 Can be dced from renal standpoint Labs Labs Laboratory Tests Test 11/26/19 17:50 11/26/19 23:06 11/27/19 01:00 11/27/19 12:30 White Blood Count 7.3 x10^3/uL (4.0-11.0) Red Blood Count 2.77 x10^6/uL (3.50-5.40) Hemoglobin 9.2 g/dL (12.0-15.5) Hematocrit 27.1 % (36.0-47.0) Mean Corpuscular Volume 98 fL (79-100) Mean Corpuscular Hemoglobin 33 pg (25-35) Mean Corpuscular Hemoglobin Concent 34 g/dL (31-37) Red Cell Distribution Width 19.2 % (11.5-14.5) Platelet Count 275 x10^3/uL (140-400) Neutrophils (%) (Auto) 76 % (31-73) Lymphocytes (%) (Auto) 14 % (24-48) Monocytes (%) (Auto) 9 % (0-9) Eosinophils (%) (Auto) 1 % (0-3) Basophils (%) (Auto) 1 % (0-3) Neutrophils # (Auto) 5.6 x10^3/uL (1.8-7.7) Lymphocytes # (Auto) 1.0 x10^3/uL (1.0-4.8) Monocytes # (Auto) 0.7 x10^3/uL (0.0-1.1) Eosinophils # (Auto) 0.0 x10^3/uL (0.0-0.7) Basophils # (Auto) 0.0 x10^3/uL (0.0-0.2) Prothrombin Time 14.0 SEC (11.7-14.0) Prothromb Time International Ratio 1.1 (0.8-1.1) Activated Partial Thromboplast Time 27 SEC (24-38) Sodium Level 138 mmol/L (136-145) 136 mmol/L (136-145) Potassium Level 6.6 mmol/L (3.5-5.1) 6.6 mmol/L (3.5-5.1) Chloride Level 100 mmol/L (98-107) 101 mmol/L (98-107) Carbon Dioxide Level 33 mmol/L (21-32) 29 mmol/L (21-32) Anion Gap 5 (6-14) 6 (6-14) Blood Urea Nitrogen 43 mg/dL (7-20) 46 mg/dL (7-20) Creatinine 4.2 mg/dL (0.6-1.0) 4.2 mg/dL (0.6-1.0) Estimated GFR (Cockcroft-Gault) 13.2 13.2 BUN/Creatinine Ratio 10 (6-20) Glucose Level 249 mg/dL (70-99) 119 mg/dL (70-99) Calcium Level 8.9 mg/dL (8.5-10.1) 9.2 mg/dL (8.5-10.1) Magnesium Level 2.4 mg/dL (1.8-2.4) Total Bilirubin 0.4 mg/dL (0.2-1.0) Aspartate Amino Transf (AST/SGOT) 30 U/L (15-37) Alanine Aminotransferase (ALT/SGPT) 38 U/L (14-59) Alkaline Phosphatase 118 U/L (46-116) Troponin I Quantitative 0.092 ng/mL (0.000-0.055) 0.120 ng/mL (0.000-0.055) GU-Rnk-B-Type Natriuretic Peptide > 82138 pg/mL (0-124) Total Protein 6.9 g/dL (6.4-8.2) Albumin 3.1 g/dL (3.4-5.0) Albumin/Globulin Ratio 0.8 (1.0-1.7) Lipase 190 U/L (73-393) Triglycerides Level 36 mg/dL (0-150) Cholesterol Level 113 mg/dL (0-200) LDL Cholesterol, Calculated 47 mg/dL (0-100) VLDL Cholesterol, Calculated 7 mg/dL (0-40) Non-HDL Cholesterol Calculated 54 mg/dL (0-129) HDL Cholesterol 59 mg/dL (40-60) Cholesterol/HDL Ratio 1.9 Glucose (Fingerstick) 64 mg/dL (70-99) Laboratory Tests Test 11/26/19 17:50 11/26/19 23:06 11/27/19 01:00 11/27/19 12:30 White Blood Count 7.3 x10^3/uL (4.0-11.0) Red Blood Count 2.77 x10^6/uL (3.50-5.40) Hemoglobin 9.2 g/dL (12.0-15.5) Hematocrit 27.1 % (36.0-47.0) Mean Corpuscular Volume 98 fL (79-100) Mean Corpuscular Hemoglobin 33 pg (25-35) Mean Corpuscular Hemoglobin Concent 34 g/dL (31-37) Red Cell Distribution Width 19.2 % (11.5-14.5) Platelet Count 275 x10^3/uL (140-400) Neutrophils (%) (Auto) 76 % (31-73) Lymphocytes (%) (Auto) 14 % (24-48) Monocytes (%) (Auto) 9 % (0-9) Eosinophils (%) (Auto) 1 % (0-3) Basophils (%) (Auto) 1 % (0-3) Neutrophils # (Auto) 5.6 x10^3/uL (1.8-7.7) Lymphocytes # (Auto) 1.0 x10^3/uL (1.0-4.8) Monocytes # (Auto) 0.7 x10^3/uL (0.0-1.1) Eosinophils # (Auto) 0.0 x10^3/uL (0.0-0.7) Basophils # (Auto) 0.0 x10^3/uL (0.0-0.2) Prothrombin Time 14.0 SEC (11.7-14.0) Prothromb Time International Ratio 1.1 (0.8-1.1) Activated Partial Thromboplast Time 27 SEC (24-38) Sodium Level 138 mmol/L (136-145) 136 mmol/L (136-145) Potassium Level 6.6 mmol/L (3.5-5.1) 6.6 mmol/L (3.5-5.1) Chloride Level 100 mmol/L (98-107) 101 mmol/L (98-107) Carbon Dioxide Level 33 mmol/L (21-32) 29 mmol/L (21-32) Anion Gap 5 (6-14) 6 (6-14) Blood Urea Nitrogen 43 mg/dL (7-20) 46 mg/dL (7-20) Creatinine 4.2 mg/dL (0.6-1.0) 4.2 mg/dL (0.6-1.0) Estimated GFR (Cockcroft-Gault) 13.2 13.2 BUN/Creatinine Ratio 10 (6-20) Glucose Level 249 mg/dL (70-99) 119 mg/dL (70-99) Calcium Level 8.9 mg/dL (8.5-10.1) 9.2 mg/dL (8.5-10.1) Magnesium Level 2.4 mg/dL (1.8-2.4) Total Bilirubin 0.4 mg/dL (0.2-1.0) Aspartate Amino Transf (AST/SGOT) 30 U/L (15-37) Alanine Aminotransferase (ALT/SGPT) 38 U/L (14-59) Alkaline Phosphatase 118 U/L (46-116) Troponin I Quantitative 0.092 ng/mL (0.000-0.055) 0.120 ng/mL (0.000-0.055) RQ-Okb-Q-Type Natriuretic Peptide > 89103 pg/mL (0-124) Total Protein 6.9 g/dL (6.4-8.2) Albumin 3.1 g/dL (3.4-5.0) Albumin/Globulin Ratio 0.8 (1.0-1.7) Lipase 190 U/L (73-393) Triglycerides Level 36 mg/dL (0-150) Cholesterol Level 113 mg/dL (0-200) LDL Cholesterol, Calculated 47 mg/dL (0-100) VLDL Cholesterol, Calculated 7 mg/dL (0-40) Non-HDL Cholesterol Calculated 54 mg/dL (0-129) HDL Cholesterol 59 mg/dL (40-60) Cholesterol/HDL Ratio 1.9 Glucose (Fingerstick) 64 mg/dL (70-99) Review All relevant outside records, renal labs, imaging studies, telemetry/EKG's were reviewed. DOMINIQUE TSE MD Nov 27, 2019 12:57
[2019-11-27] MEDS: CARVEDILOL 12.5 MG TABLET. PO SCH ×2 (12:59→17:41)
[2019-11-27 15:01] VITALS: BP 121/48
[2019-11-27 15:48] LABS: CALCIUM 9.2 mg/dL (8.5-10.1); CREATININE 2.3 mg/dL (0.6-1.0); GFR 26.4; POTASSIUM 4.3 mmol/L (3.5-5.1)
[2019-11-27 19:06] VITALS: BP 127/58
[2019-11-27] MEDS: ATORVASTATIN CALCIUM 40 MG TABLET. PO SCH (20:17)
[2019-11-27] MEDS: LATANOPROST 0.005% OPHTH SOLUTION 2.5ML BOTTLE. OU SCH (20:19)
[2019-11-27 22:22] VITALS: BP 131/58
[2019-11-27] MEDS: diphenhydrAMINE HCL 25 MG CAPSULE PO PRN (23:49)
[2019-11-28] MEDS: fentaNYL PF VIAL 100 MCG/2 ML VIAL IVP PRN ×6 (01:06→22:01)
[2019-11-28 02:45] VITALS: BP 146/64
[2019-11-28] MEDS: LEVOTHYROXINE 50 MCG TABLET PO SCH (06:25)
[2019-11-28 07:29] VITALS: BP 184/90
[2019-11-28] MEDS: CLOPIDOGREL BISULFATE 75 MG TABLET PO SCH (08:00)
[2019-11-28] MEDS: FOLIC/VIT B COMP W-C (RENAL) TABLET. PO SCH (09:47)
[2019-11-28] MEDS: hydrALAZINE 25 MG TABLET PO SCH ×3 (09:48→21:00)
[2019-11-28] MEDS: oxyCODONE/APAP 10/325 1 TAB TABLET PO PRN ×3 (09:48→21:53)
[2019-11-28] MEDS: CARVEDILOL 12.5 MG TABLET. PO SCH ×2 (09:49→17:52)
[2019-11-28] MEDS: amLODIPine BESYLATE 10 MG TABLET PO SCH (09:49)
[2019-11-28] MEDS: diphenhydrAMINE HCL 25 MG CAPSULE PO PRN (09:50)
[2019-11-28] MEDS: PANTOPRAZOLE 40 MG TABLET.DR. PO SCH (09:50)
[2019-11-28] MEDS: SERTRALINE 50 MG TABLET. PO SCH (09:51)
[2019-11-28] MEDS: buPROPion XL 150 MG TAB.ER.24H. PO SCH (09:52)
[2019-11-28] MEDS: LACTOBACILLUS RHAMNOSUS GG 1 CAPSULE. PO SCH ×2 (09:52→21:00)
[2019-11-28] MEDS: INSULIN LISPRO 300 UNITS/3 ML VIAL. SQ SCH ×3 (10:00→17:00)
--- NOTE | 2019-11-28 10:36 | PDOC ---
PROGRESS NOTES Date of Service: DATE: 11/28/19 TIME: 10:35 Chief Complaint Chief Complaint Epigastric pain History of Present Illness History of Present Illness Patient complaining of some mild epigastric discomfort today. She has been accepted to a long-term acute care facility. Stable for discharge today. Vitals Vitals Vital Signs Date Time Temp Pulse Resp B/P (MAP) Pulse Ox O2 Delivery O2 Flow Rate FiO2 11/28/19 10:13 Room Air 11/28/19 09:49 70 184/90 11/28/19 07:29 98.0 18 99 3.0 98.0 Physical Exam General: Alert, No acute distress Heart: Regular rate, Normal S1, Normal S2 Lungs: Clear Abdomen: Normal bowel sounds, No tenderness Extremities: No clubbing, No cyanosis Skin: No significant lesion Labs LABS Laboratory Tests Test 11/27/19 12:25 11/27/19 12:30 11/27/19 17:22 11/28/19 07:16 Sodium Level 138 mmol/L (136-145) Potassium Level 4.3 mmol/L (3.5-5.1) Chloride Level 101 mmol/L (98-107) Carbon Dioxide Level 33 mmol/L (21-32) Anion Gap 4 (6-14) Blood Urea Nitrogen 19 mg/dL (7-20) Creatinine 2.3 mg/dL (0.6-1.0) Estimated GFR (Cockcroft-Gault) 26.4 Glucose Level 72 mg/dL (70-99) Calcium Level 9.2 mg/dL (8.5-10.1) Glucose (Fingerstick) 64 mg/dL (70-99) 145 mg/dL (70-99) 158 mg/dL (70-99) Assessment and Plan Assessmemt and Plan Problems Medical Problems: (1) ESRD (end stage renal disease) on dialysis Status: Chronic (2) Hyperkalemia Status: Acute Comment Review of Relevant I have reviewed the following items pamela (where applicable) has been applied. Labs Laboratory Tests Test 11/26/19 17:50 11/26/19 23:06 11/27/19 01:00 11/27/19 12:25 White Blood Count 7.3 x10^3/uL (4.0-11.0) Red Blood Count 2.77 x10^6/uL (3.50-5.40) Hemoglobin 9.2 g/dL (12.0-15.5) Hematocrit 27.1 % (36.0-47.0) Mean Corpuscular Volume 98 fL (79-100) Mean Corpuscular Hemoglobin 33 pg (25-35) Mean Corpuscular Hemoglobin Concent 34 g/dL (31-37) Red Cell Distribution Width 19.2 % (11.5-14.5) Platelet Count 275 x10^3/uL (140-400) Neutrophils (%) (Auto) 76 % (31-73) Lymphocytes (%) (Auto) 14 % (24-48) Monocytes (%) (Auto) 9 % (0-9) Eosinophils (%) (Auto) 1 % (0-3) Basophils (%) (Auto) 1 % (0-3) Neutrophils # (Auto) 5.6 x10^3/uL (1.8-7.7) Lymphocytes # (Auto) 1.0 x10^3/uL (1.0-4.8) Monocytes # (Auto) 0.7 x10^3/uL (0.0-1.1) Eosinophils # (Auto) 0.0 x10^3/uL (0.0-0.7) Basophils # (Auto) 0.0 x10^3/uL (0.0-0.2) Prothrombin Time 14.0 SEC (11.7-14.0) Prothromb Time International Ratio 1.1 (0.8-1.1) Activated Partial Thromboplast Time 27 SEC (24-38) Sodium Level 138 mmol/L (136-145) 136 mmol/L (136-145) 138 mmol/L (136-145) Potassium Level 6.6 mmol/L (3.5-5.1) 6.6 mmol/L (3.5-5.1) 4.3 mmol/L (3.5-5.1) Chloride Level 100 mmol/L (98-107) 101 mmol/L (98-107) 101 mmol/L (98-107) Carbon Dioxide Level 33 mmol/L (21-32) 29 mmol/L (21-32) 33 mmol/L (21-32) Anion Gap 5 (6-14) 6 (6-14) 4 (6-14) Blood Urea Nitrogen 43 mg/dL (7-20) 46 mg/dL (7-20) 19 mg/dL (7-20) Creatinine 4.2 mg/dL (0.6-1.0) 4.2 mg/dL (0.6-1.0) 2.3 mg/dL (0.6-1.0) Estimated GFR (Cockcroft-Gault) 13.2 13.2 26.4 BUN/Creatinine Ratio 10 (6-20) Glucose Level 249 mg/dL (70-99) 119 mg/dL (70-99) 72 mg/dL (70-99) Calcium Level 8.9 mg/dL (8.5-10.1) 9.2 mg/dL (8.5-10.1) 9.2 mg/dL (8.5-10.1) Magnesium Level 2.4 mg/dL (1.8-2.4) Total Bilirubin 0.4 mg/dL (0.2-1.0) Aspartate Amino Transf (AST/SGOT) 30 U/L (15-37) Alanine Aminotransferase (ALT/SGPT) 38 U/L (14-59) Alkaline Phosphatase 118 U/L (46-116) Troponin I Quantitative 0.092 ng/mL (0.000-0.055) 0.120 ng/mL (0.000-0.055) LT-Lqo-L-Type Natriuretic Peptide > 82198 pg/mL (0-124) Total Protein 6.9 g/dL (6.4-8.2) Albumin 3.1 g/dL (3.4-5.0) Albumin/Globulin Ratio 0.8 (1.0-1.7) Lipase 190 U/L (73-393) Triglycerides Level 36 mg/dL (0-150) Cholesterol Level 113 mg/dL (0-200) LDL Cholesterol, Calculated 47 mg/dL (0-100) VLDL Cholesterol, Calculated 7 mg/dL (0-40) Non-HDL Cholesterol Calculated 54 mg/dL (0-129) HDL Cholesterol 59 mg/dL (40-60) Cholesterol/HDL Ratio 1.9 Test 11/27/19 12:30 11/27/19 17:22 11/28/19 07:16 Glucose (Fingerstick) 64 mg/dL (70-99) 145 mg/dL (70-99) 158 mg/dL (70-99) Laboratory Tests Test 11/27/19 12:25 11/27/19 12:30 11/27/19 17:22 11/28/19 07:16 Sodium Level 138 mmol/L (136-145) Potassium Level 4.3 mmol/L (3.5-5.1) Chloride Level 101 mmol/L (98-107) Carbon Dioxide Level 33 mmol/L (21-32) Anion Gap 4 (6-14) Blood Urea Nitrogen 19 mg/dL (7-20) Creatinine 2.3 mg/dL (0.6-1.0) Estimated GFR (Cockcroft-Gault) 26.4 Glucose Level 72 mg/dL (70-99) Calcium Level 9.2 mg/dL (8.5-10.1) Glucose (Fingerstick) 64 mg/dL (70-99) 145 mg/dL (70-99) 158 mg/dL (70-99) Medications Current Medications Morphine Sulfate (Morphine Sulfate) 4 mg 1X ONCE IV Last administered on 11/26/19at 18:21; Start 11/26/19 at 17:45; Stop 11/26/19 at 17:47; Status DC Aspirin (Molly Aspirin) 325 mg 1X ONCE PO Last administered on 11/26/19 19:02; Start 11/26/19 at 19:15; Stop 11/26/19 at 19:16; Status DC Insulin Human Regular (HumuLIN R VIAL) 10 unit 1X ONCE IV Last administered on 11/26/19at 19:02; Start 11/26/19 at 19:15; Stop 11/26/19 at 19:16; Status DC Dextrose (Dextrose 50%-Water Syringe) 25 gm 1X ONCE IV Last administered on 11/26/19at 19:01; Start 11/26/19 at 19:15; Stop 11/26/19 at 19:16; Status DC Calcium Gluconate (Calcium Gluconate) 1,000 mg 1X ONCE IVP Last administered on 11/26/19at 19:00; Start 11/26/19 at 19:15; Stop 11/26/19 at 19:16; Status DC Hydralazine HCl (Apresoline Inj) 20 mg 1X ONCE IVP Last administered on 11/26/19at 19:09; Start 11/26/19 at 19:15; Stop 11/26/19 at 19:16; Status DC Ondansetron HCl (Zofran) 4 mg PRN Q8HRS PRN IV NAUSEA/VOMITING; Start 11/26/19 at 19:45; Stop 11/26/19 at 21:39; Status DC Insulin Human Lispro (HumaLOG) 0-5 UNITS TIDWMEALS SQ Last administered on 11/28/19at 10:00; Start 11/27/19 at 08:00 Dextrose (Dextrose 50%-Water Syringe) 12.5 gm PRN Q15MIN PRN IV SEE COMMENTS; Start 11/26/19 at 19:45 Hydralazine HCl (Apresoline Inj) 10 mg PRN Q4HRS PRN IVP ELEVATED BP, SEE COMMENTS Last administered on 11/27/19at 04:15; Start 11/26/19 at 19:45 Fentanyl Citrate (Fentanyl 2ml Vial) 50 mcg 1X ONCE IV Last administered on 11/26/19at 20:39; Start 11/26/19 at 21:00; Stop 11/26/19 at 21:01; Status DC Ondansetron HCl (Zofran) 4 mg PRN Q4HRS PRN IV NAUSEA/VOMITING 1st choice; Start 11/26/19 at 21:45 Albuterol Sulfate (Ventolin Neb Soln) 2.5 mg PRN BID PRN INH SHORTNESS OF BREATH; Start 11/26/19 at 21:45 Amlodipine Besylate (Norvasc) 10 mg DAILY PO Last administered on 11/28/19at 09:49; Start 11/27/19 at 09:00 Atorvastatin Calcium (Lipitor) 40 mg HS PO Last administered on 11/27/19at 20:17; Start 11/26/19 at 22:00 Carvedilol (Coreg) 12.5 mg BIDWMEALS PO Last administered on 11/28/19at 09:49; Start 11/27/19 at 08:00 Clonidine HCl (Catapres Tts-2) 1 patch WEEKLY TD ; Start 12/03/19 at 09:00 Clopidogrel Bisulfate (Plavix) 75 mg DAILYWBKFT PO Last administered on 11/27/19at 12:51; Start 11/27/19 at 08:00 Vitamin B Complex/ Vitamin C (Pinky-Shreya) 1 tab DAILY PO Last administered on 11/28/19 09:47; Start 11/27/19 at 09:00 Guaifenesin (Robitussin Dm) 10 ml PRN Q6HRS PRN PO COUGH; Start 11/26/19 at 21:45 Hydralazine HCl (Apresoline) 25 mg TID PO Last administered on 11/28/19 09:48; Start 11/26/19 at 22:00 Lactobacillus Rhamnosus (Culturelle) 1 cap BID PO Last administered on 11/28/19 09:52; Start 11/26/19 at 22:00 Latanoprost (Xalatan) 1 drop HS OU Last administered on 11/27/19 20:19; Start 11/26/19 at 22:00 Levothyroxine Sodium (Synthroid) 50 mcg DAILY06 PO Last administered on 11/28/19 06:25; Start 11/27/19 at 06:00 Ondansetron HCl (Zofran Odt) 4 mg PRN Q6HRS PRN PO NAUSEA/VOMITING 1ST CHOICE; Start 11/26/19 at 21:45 Oxycodone/ Acetaminophen (Percocet 10/325) 1 tab PRN Q4HRS PRN PO SEVERE PAIN 7-10 Last administered on 11/28/19 09:48; Start 11/26/19 at 21:45 Prochlorperazine Maleate (Compazine) 5 mg PRN TID PRN PO NAUSEA 2ND CHOICE; Start 11/26/19 at 21:45 Sertraline HCl (Zoloft) 50 mg DAILY PO Last administered on 11/28/19 09:51; Start 11/27/19 at 09:00 Bupropion HCl (Wellbutrin Xl) 300 mg DAILY PO Last administered on 11/28/19 09:52; Start 11/27/19 at 09:00 Amylase/Lipase/ Protease (Zenpep 5,000) 1 cap TIDWMEALS PO Last administered on 11/28/19 09:49; Start 11/27/19 at 08:00 Pantoprazole Sodium (Protonix) 40 mg DAILYAC PO Last administered on 11/28/19 09:50; Start 11/27/19 at 07:30 Fentanyl Citrate (Fentanyl 2ml Vial) 50 mcg PRN Q3HRS PRN IVP SEVERE PAIN 7-10 Last administered on 11/28/19at 10:13; Start 11/26/19 at 22:00 Diphenhydramine HCl (Benadryl) 25 mg PRN Q6HRS PRN PO ITCHING Last administered on 11/28/19at 09:50; Start 11/26/19 at 23:00 Sodium Polystyrene Sulfonate (Kayexalate) 15 gm 1X ONCE PO Last administered on 11/27/19at 06:21; Start 11/27/19 at 05:30; Stop 11/27/19 at 05:31; Status DC Sodium Chloride 1,000 ml @ 1,000 mls/hr Q1H PRN IV hypotension; Start 11/27/19 at 07:29; Stop 11/27/19 at 13:28; Status DC Albumin Human 200 ml @ 200 mls/hr 1X PRN PRN IV Hypotension; Start 11/27/19 at 07:30; Stop 11/27/19 at 13:29; Status DC Info (PHARMACY MONITORING -- do not chart) 1 each PRN DAILY PRN MC SEE COMMENTS; Start 11/27/19 at 07:30; Status UNV Info (PHARMACY MONITORING -- do not chart) 1 each PRN DAILY PRN MC SEE COMMENTS; Start 11/27/19 at 07:30 Active Scripts Active Percocet 10-325 Mg Tablet (Oxycodone/Acetaminophen) 1 Each Tablet 1 Tab PO PRN Q4HRS PRN Guaifenesin Dm Syrup (Guaifenesin/Dextromethorphan) 5 Ml Syrup 10 Ml PO PRN Q6HRS PRN 10 Days Carvedilol (Carvedilol) 6.25 Mg Tablet 12.5 Mg PO BIDWMEALS Hydralazine Hcl 25 Mg Tablet 25 Mg PO TID Humalog (Insulin Lispro) 100 Unit/1 Ml Insuln.pen 0 Units SQ TIDWMEALS 28 Days Culturelle (Lactobacillus Rhamnosus Gg) 1 Each Cap.sprink 1 Cap PO BID 30 Days Ondansetron Odt (Ondansetron) 4 Mg Tab.rapdis 4 Mg PO PRN Q6HRS PRN 28 Days Clopidogrel (Clopidogrel Bisulfate) 75 Mg Tablet 75 Mg PO DAILYWBKFT 30 Days Pinky-Shreya Tablet (Folic Acid/Vitamin B Comp W-C) 0.8 Mg Tablet 1 Tab PO DAILY Tylenol (Acetaminophen) 325 Mg Capsule 650 Mg PO Q6-8HRS PRN Zantac (Ranitidine Hcl) 300 Mg Tablet 1 Tab PO QHS Compazine (Prochlorperazine Maleate) 5 Mg Tablet 5 Mg PO PRN TID PRN 10 Days [Pantoprazole] 40 MG Tablet.dr 40 Mg PO DAILYAC 30 Days Reported Bupropion Xl (Bupropion Hcl) 300 Mg Tab.er.24h 1 Tab PO DAILYWBKFT Zoloft (Sertraline Hcl) 50 Mg Tablet 50 Mg PO DAILY Lisinopril 20 Mg Tablet 20 Mg PO DAILY Creon Dr 6,000 Units Capsule (Lipase/Protease/Amylase) 1 Each Capsule.dr 1 Tab PO TID Proair Hfa (Albuterol Sulfate) 8.5 Gm Hfa.aer.ad 2 Puff INH BID PRN Levothyroxine Sodium 50 Mcg Tablet 1 Tab PO DAILY Clonidine Tts-2 (Clonidine) 1 Each Patch.tdwk 1 Patch TD WEEKLY Amlodipine Besylate 5 Mg Tablet 10 Mg PO DAILY Atorvastatin Calcium 40 Mg Tablet 40 Mg PO HS Latanoprost 2.5 Ml Drops 1 Drop EACHEYE HS Vitals/I & O Vital Sign - Last 24 Hours 11/27/19 11/27/19 11/27/19 11/27/19 11:40 12:46 12:50 12:51 Temp 98.3 98.3 Pulse 75 75 Resp 20 B/P (MAP) 131/46 (74) 131/46 Pulse Ox 96 O2 Delivery Nasal Cannula Nasal Cannula Room Air O2 Flow Rate 3.0 11/27/19 11/27/19 11/27/19 11/27/19 12:53 12:59 13:16 13:50 Pulse 82 84 O2 Delivery Nasal Cannula Nasal Cannula 11/27/19 11/27/19 11/27/19 11/27/19 15:01 15:52 16:22 17:41 Temp 97.9 97.9 Pulse 61 71 Resp 20 B/P (MAP) 121/48 (72) Pulse Ox 95 O2 Delivery Nasal Cannula Nasal Cannula Nasal Cannula O2 Flow Rate 3.0 3.0 2.0 11/27/19 11/27/19 11/27/19 11/27/19 17:42 19:06 19:14 19:14 Temp 98.5 98.5 Pulse 59 Resp 20 B/P (MAP) 127/58 (81) Pulse Ox 95 O2 Delivery Nasal Cannula Nasal Cannula Room Air Room Air O2 Flow Rate 2.0 3.0 11/27/19 11/27/19 11/27/19 11/27/19 19:44 20:00 20:18 22:16 B/P (MAP) 127/58 O2 Delivery Room Air Nasal Cannula Room Air O2 Flow Rate 3.0 11/27/19 11/27/19 11/27/19 11/28/19 22:22 22:46 23:49 00:49 Temp 98.1 98.1 Pulse 70 Resp 20 B/P (MAP) 131/58 (82) Pulse Ox 98 O2 Delivery Nasal Cannula Room Air Room Air Room Air O2 Flow Rate 3.0 11/28/19 11/28/19 11/28/19 11/28/19 01:06 01:36 02:45 06:26 Temp 98.4 98.4 Pulse 68 Resp 18 B/P (MAP) 146/64 (91) Pulse Ox 96 O2 Delivery Room Air Room Air Nasal Cannula Room Air O2 Flow Rate 3.0 11/28/19 11/28/19 11/28/19 11/28/19 07:29 09:48 09:48 09:49 Temp 98.0 98.0 Pulse 70 70 70 Resp 18 B/P (MAP) 184/90 (121) 184/90 184/90 Pulse Ox 99 O2 Delivery Nasal Cannula Room Air O2 Flow Rate 3.0 11/28/19 11/28/19 09:49 10:13 Pulse 70 B/P (MAP) 184/90 O2 Delivery Room Air Intake and Output 11/27/19 11/27/19 11/28/19 15:00 23:00 07:00 Intake Total 480 ml 600 ml 680 ml Balance 480 ml 600 ml 680 ml Justicifation of Admission Dx: Justifications for Admission: Justification of Admission Dx: Yes Chronic Renal Failure: Electrolyte Abnormality KAT VILLELA MD Nov 28, 2019 10:36
--- NOTE | 2019-11-28 10:42 | PDOC3 ---
Discharge Summary Visit Information Date of Admission: Nov 26, 2019 Date of Discharge: Nov 28, 2019 Final Diagnosis Problems Medical Problems: (1) ESRD (end stage renal disease) on dialysis Status: Chronic (2) Hyperkalemia Status: Acute Brief Hospital Course Allergies Allergies Coded Allergies Type Severity Reaction Last Updated Verified No Known Drug Allergies 02/27/19 No Vital Signs Vital Signs Date Time Temp Pulse Resp B/P (MAP) Pulse Ox O2 Delivery O2 Flow Rate FiO2 11/28/19 10:13 Room Air 11/28/19 09:49 70 184/90 11/28/19 07:29 98.0 18 99 3.0 98.0 Lab Results Laboratory Tests Test 11/26/19 17:50 11/26/19 23:06 11/27/19 01:00 11/27/19 12:25 White Blood Count 7.3 x10^3/uL (4.0-11.0) Red Blood Count 2.77 x10^6/uL (3.50-5.40) Hemoglobin 9.2 g/dL (12.0-15.5) Hematocrit 27.1 % (36.0-47.0) Mean Corpuscular Volume 98 fL (79-100) Mean Corpuscular Hemoglobin 33 pg (25-35) Mean Corpuscular Hemoglobin Concent 34 g/dL (31-37) Red Cell Distribution Width 19.2 % (11.5-14.5) Platelet Count 275 x10^3/uL (140-400) Neutrophils (%) (Auto) 76 % (31-73) Lymphocytes (%) (Auto) 14 % (24-48) Monocytes (%) (Auto) 9 % (0-9) Eosinophils (%) (Auto) 1 % (0-3) Basophils (%) (Auto) 1 % (0-3) Neutrophils # (Auto) 5.6 x10^3/uL (1.8-7.7) Lymphocytes # (Auto) 1.0 x10^3/uL (1.0-4.8) Monocytes # (Auto) 0.7 x10^3/uL (0.0-1.1) Eosinophils # (Auto) 0.0 x10^3/uL (0.0-0.7) Basophils # (Auto) 0.0 x10^3/uL (0.0-0.2) Prothrombin Time 14.0 SEC (11.7-14.0) Prothromb Time International Ratio 1.1 (0.8-1.1) Activated Partial Thromboplast Time 27 SEC (24-38) Sodium Level 138 mmol/L (136-145) 136 mmol/L (136-145) 138 mmol/L (136-145) Potassium Level 6.6 mmol/L (3.5-5.1) 6.6 mmol/L (3.5-5.1) 4.3 mmol/L (3.5-5.1) Chloride Level 100 mmol/L (98-107) 101 mmol/L (98-107) 101 mmol/L (98-107) Carbon Dioxide Level 33 mmol/L (21-32) 29 mmol/L (21-32) 33 mmol/L (21-32) Anion Gap 5 (6-14) 6 (6-14) 4 (6-14) Blood Urea Nitrogen 43 mg/dL (7-20) 46 mg/dL (7-20) 19 mg/dL (7-20) Creatinine 4.2 mg/dL (0.6-1.0) 4.2 mg/dL (0.6-1.0) 2.3 mg/dL (0.6-1.0) Estimated GFR (Cockcroft-Gault) 13.2 13.2 26.4 BUN/Creatinine Ratio 10 (6-20) Glucose Level 249 mg/dL (70-99) 119 mg/dL (70-99) 72 mg/dL (70-99) Calcium Level 8.9 mg/dL (8.5-10.1) 9.2 mg/dL (8.5-10.1) 9.2 mg/dL (8.5-10.1) Magnesium Level 2.4 mg/dL (1.8-2.4) Total Bilirubin 0.4 mg/dL (0.2-1.0) Aspartate Amino Transf (AST/SGOT) 30 U/L (15-37) Alanine Aminotransferase (ALT/SGPT) 38 U/L (14-59) Alkaline Phosphatase 118 U/L (46-116) Troponin I Quantitative 0.092 ng/mL (0.000-0.055) 0.120 ng/mL (0.000-0.055) CA-Kpk-X-Type Natriuretic Peptide > 37775 pg/mL (0-124) Total Protein 6.9 g/dL (6.4-8.2) Albumin 3.1 g/dL (3.4-5.0) Albumin/Globulin Ratio 0.8 (1.0-1.7) Lipase 190 U/L (73-393) Triglycerides Level 36 mg/dL (0-150) Cholesterol Level 113 mg/dL (0-200) LDL Cholesterol, Calculated 47 mg/dL (0-100) VLDL Cholesterol, Calculated 7 mg/dL (0-40) Non-HDL Cholesterol Calculated 54 mg/dL (0-129) HDL Cholesterol 59 mg/dL (40-60) Cholesterol/HDL Ratio 1.9 Test 11/27/19 12:30 11/27/19 17:22 11/28/19 07:16 Glucose (Fingerstick) 64 mg/dL (70-99) 145 mg/dL (70-99) 158 mg/dL (70-99) Laboratory Tests Test 11/27/19 12:25 11/27/19 12:30 11/27/19 17:22 11/28/19 07:16 Sodium Level 138 mmol/L (136-145) Potassium Level 4.3 mmol/L (3.5-5.1) Chloride Level 101 mmol/L (98-107) Carbon Dioxide Level 33 mmol/L (21-32) Anion Gap 4 (6-14) Blood Urea Nitrogen 19 mg/dL (7-20) Creatinine 2.3 mg/dL (0.6-1.0) Estimated GFR (Cockcroft-Gault) 26.4 Glucose Level 72 mg/dL (70-99) Calcium Level 9.2 mg/dL (8.5-10.1) Glucose (Fingerstick) 64 mg/dL (70-99) 145 mg/dL (70-99) 158 mg/dL (70-99) Brief Hospital Course Ms. Smith is a 59 old female who presented with chest pain, volume overload, and hyperkalemia with end-stage renal disease. Consult placed to nephrology for continued hemodialysis. Patient was agreeable to long-term acute care facility. She is stable for discharge. Discharge Information Condition at Discharge: Stable Disposition/Orders: D/C to Another Facility Scheduled Amlodipine Besylate (Amlodipine Besylate) 5 Mg Tablet, 10 MG PO DAILY for blood pressure, (Reported) Entered as Reported by: JENNIE SMITH on 12/05/17809 Last Action: Continued on 11/26/192139 by FELI SHAH MD Atorvastatin Calcium (Atorvastatin Calcium) 40 Mg Tablet, 40 MG PO HS for cholesterol, (Reported) Entered as Reported by: JENNIE SMITH on 12/05/17809 Last Action: Continued on 11/26/192139 by FELI SHAH MD Bupropion Hcl (Bupropion Xl) 300 Mg Tab.er.24h, 1 TAB PO DAILYWBKFT for antidepressant, #30 Ref 2 (Reported) Entered as Reported by: Marilyn Garibay on 09/23/19419 Last Action: Converted on 11/26/192142 by FELI SHAH MD Carvedilol (Carvedilol ) 6.25 Mg Tablet, 12.5 MG PO BIDWMEALS for htn, #60 Prescribed by: PRABHAKAR MOSQUERA on 01/29/19 1113 Last Action: Continued on 11/26/192139 by FELI SHAH MD Clonidine (Clonidine Tts-2 ) 1 Each Patch.tdwk, 1 PATCH TD WEEKLY for blood pressure, (Reported) Entered as Reported by: VIKI PANG on 03/22/18 1727 Last Action: Continued on 11/26/192139 by FELI SHAH MD Clopidogrel Bisulfate (Clopidogrel) 75 Mg Tablet, 75 MG PO DAILYWBKFT for pvd for 30 Days, #30 Prescribed by: SANGEETHA MUELLER MD on 12/26/18 1247 Last Action: Continued on 11/26/192139 by FELI SHAH MD Folic Acid/Vitamin B Comp W-C (Pinky-Shreya Tablet) 0.8 Mg Tablet, 1 TAB PO DAILY for esrd, #30 Prescribed by: PRABHAKAR MOSQUERA on 12/10/18 1041 Last Action: Continued on 11/26/192139 by FELI SHAH MD Hydralazine Hcl (Hydralazine Hcl) 25 Mg Tablet, 25 MG PO TID for htn, #10 Prescribed by: PRABHAKAR MOSQUERA on 01/29/19 1113 Last Action: Continued on 11/26/192139 by FELI SHAH MD Insulin Lispro (Humalog) 100 Unit/1 Ml Insuln.pen, 0 UNITS SQ TIDWMEALS for glucose for 28 Days, #3 Prescribed by: SANGEETHA MUELLER MD on 12/26/181246 Lactobacillus Rhamnosus Gg (Culturelle) 1 Each Cap.sprink, 1 CAP PO BID for supplement for 30 Days, #60 Prescribed by: SANGEETHA MUELLER MD on 12/26/18 1247 Last Action: Continued on 11/26/192139 by FELI SHAH MD Latanoprost (Latanoprost) 2.5 Ml Drops, 1 DROP EACHEYE HS, (Reported) Entered as Reported by: ATTILA HAMMOND on 09/24/17 1649 Last Action: Continued on 11/26/192139 by FELI SHAH MD Levothyroxine Sodium (Levothyroxine Sodium) 50 Mcg Tablet, 1 TAB PO DAILY for t hyroid, #30 Ref 5 (Reported) Entered as Reported by: VIKI PANG on 03/22/18 1727 Last Action: Continued on 11/26/192139 by FELI SHAH MD Lipase/Protease/Amylase (Creon Dr 6,000 Units Capsule) 1 Each Capsule.dr, 1 TAB PO TID for digestion, (Reported) Entered as Reported by: CAROL CHAN on 04/23/18 1236 Last Action: Converted on 11/26/192142 by FELI SHAH MD Lisinopril (Lisinopril) 20 Mg Tablet, 20 MG PO DAILY for FOR HYPERTENSION, Ref 0 (Reported) Entered as Reported by: LAUREN REAVES on 05/27/18 0749 Ranitidine Hcl (Zantac) 300 Mg Tablet, 1 TAB PO QHS for reflux, #90 Ref 3 Prescribed by: DANIELA ALMAZAN D.O. on 08/29/182155 Sertraline Hcl (Zoloft) 50 Mg Tablet, 50 MG PO DAILY for ANTI-DEPRESSANT, Ref 0 (Reported) Entered as Reported by: LAUREN REAVES on 05/27/18 0749 Last Action: Continued on 11/26/192142 by FELI SHAH MD [Pantoprazole] 40 MG TABLET.DR, 40 MG PO DAILYAC for GERD for 30 Days, #30 Ref 2 Prescribed by: FELI SHAH MD on 03/07/18 1359 Last Action: Converted on 11/26/192142 by FELI SHAH MD Scheduled PRN Acetaminophen (Tylenol) 325 Mg Capsule, 650 MG PO Q6-8HRS PRN for PAIN, #20 Prescribed by: KIMBERLY DONOHUE MD on 11/14/182 Albuterol Sulfate (Proair Hfa) 8.5 Gm Hfa.aer.ad, 2 PUFF INH BID PRN for SHORTNESS OF BREATH, (Reported) Entered as Reported by: VIKI PANG on 03/22/18 1727 Last Action: Continued on 11/26/192139 by FELI SHAH MD Guaifenesin/Dextromethorphan (Guaifenesin Dm Syrup) 5 Ml Syrup, 10 ML PO PRN Q6HRS PRN for COUGH for 10 Days, #120 Prescribed by: SANGEETHA MUELLER MD on 02/12/19 1404 Last Action: Continued on 11/26/192139 by FELI SHAH MD Ondansetron (Ondansetron Odt) 4 Mg Tab.rapdis, 4 MG PO PRN Q6HRS PRN for NAUSEA/VOMITING 1ST CHOICE for 28 Days, #30 Prescribed by: SANGEETHA MUELLER MD on 12/26/18 1247 Last Action: Continued on 11/26/192139 by FELI SHAH MD Oxycodone/Apap 10-325 (Percocet 10-325 Mg Tablet ) 1 Each Tablet, 1 TAB PO PRN Q4HRS PRN for PAIN , #25 Prescribed by: HARDEEP MUÑOZ on 09/28/19 1025 Last Action: Continued on 11/26/192142 by FELI SHAH MD Prochlorperazine Maleate (Compazine) 5 Mg Tablet, 5 MG PO PRN TID PRN for NAUSEA for 10 Days, #30 Prescribed by: FELI SAHH MD on 08/26/18 1158 Last Action: Continued on 11/26/192142 by FELI SHAH MD Justicifation of Admission Dx: Justifications for Admission: Justification of Admission Dx: Yes Chronic Renal Failure: Electrolyte Abnormality KTA VILLELA MD Nov 28, 2019 10:42
--- NOTE | 2019-11-28 10:45 | PDOC ---
DATE OF SERVICE DATE: 11/28/19 TIME: 10:42 SUBJECTIVE ROS Asking for pain meds, doesnt tell where she is hurting "I have already told my doctor" Lying comfortably in bed OBJECTIVE Vital Signs Vital Signs Date Time Temp Pulse Resp B/P (MAP) Pulse Ox O2 Delivery O2 Flow Rate FiO2 11/28/19 10:13 Room Air 11/28/19 09:49 70 184/90 11/28/19 07:29 98.0 18 99 3.0 98.0 I & 0 Intake and Output 11/28/19 07:00 Intake Total 1760 ml Balance 1760 ml Intake Oral 1760 ml PHYSICAL EXAM Physical Exam General: NAD HEENT: PERRLA, OM moist Neck Supple Lungs: dec BS , Non labored Heart: S1S2, RRR, n Abdomen: Normal bowel sounds, Soft, No tenderness, No Calvillo Extremities: Bila BKA , s/p amputation Rt middle finger , AVF + Skin: No rash Neuro- Grossly Normal DIAGNOSIS/ASSESSMENT Assessment & Plan ESRD - On HD MWF No indication for HD today Hyperkalemia at presentation- Recd Dialysis Left arm access pain - AVF evalauted by Dr. 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 Per RN she has agreed to be dced to LTAC COMMENT/RELEVANT DATA Meds Current Medications Medications (Trade) Dose Ordered Sig/Clarence Start Time Stop Time Status Last Admin Dose Admin Albumin Human 200 ml @ 200 mls/hr 1X PRN PRN 11/27/19 07:30 11/27/19 13:29 DC Albuterol Sulfate (Ventolin Neb Soln) 2.5 mg PRN BID PRN 11/26/19 21:45 Amlodipine Besylate (Norvasc) 10 mg DAILY 11/27/19 09:00 11/28/19 09:49 10 MG Amylase/Lipase/ Protease (Zenpep 5,000) 1 cap TIDWMEALS 11/27/19 08:00 11/28/19 09:49 1 CAP Aspirin (Molly Aspirin) 325 mg 1X ONCE 11/26/19 19:15 11/26/19 19:16 DC 11/26/19 19:02 325 MG Atorvastatin Calcium (Lipitor) 40 mg HS 11/26/19 22:00 11/27/19 20:17 40 MG Bupropion HCl (Wellbutrin Xl) 300 mg DAILY 11/27/19 09:00 11/28/19 09:52 300 MG Calcium Gluconate (Calcium Gluconate) 1,000 mg 1X ONCE 11/26/19 19:15 11/26/19 19:16 DC 11/26/19 19:00 1,000 MG Carvedilol (Coreg) 12.5 mg BIDWMEALS 11/27/19 08:00 11/28/19 09:49 12.5 MG Clonidine HCl (Catapres Tts-2) 1 patch WEEKLY 12/03/19 09:00 Clopidogrel Bisulfate (Plavix) 75 mg DAILYWBKFT 11/27/19 08:00 11/27/19 12:51 75 MG Dextrose (Dextrose 50%-Water Syringe) 12.5 gm PRN Q15MIN PRN 11/26/19 19:45 Diphenhydramine HCl (Benadryl) 25 mg PRN Q6HRS PRN 11/26/19 23:00 11/28/19 09:50 25 MG Fentanyl Citrate (Fentanyl 2ml Vial) 50 mcg PRN Q3HRS PRN 11/26/19 22:00 11/28/19 10:13 50 MCG Guaifenesin (Robitussin Dm) 10 ml PRN Q6HRS PRN 11/26/19 21:45 Hydralazine HCl (Apresoline Inj) 10 mg PRN Q4HRS PRN 11/26/19 19:45 11/27/19 04:15 10 MG Hydralazine HCl (Apresoline) 25 mg TID 11/26/19 22:00 11/28/19 09:48 25 MG Info (PHARMACY MONITORING -- do not chart) 1 each PRN DAILY PRN 11/27/19 07:30 Insulin Human Lispro (HumaLOG) 0-5 UNITS TIDWMEALS 11/27/19 08:00 11/28/19 10:00 2 UNITS Insulin Human Regular (HumuLIN R VIAL) 10 unit 1X ONCE 11/26/19 19:15 11/26/19 19:16 DC 11/26/19 19:02 10 UNIT Lactobacillus Rhamnosus (Culturelle) 1 cap BID 11/26/19 22:00 11/28/19 09:52 1 CAP Latanoprost (Xalatan) 1 drop HS 11/26/19 22:00 11/27/19 20:19 1 DROP Levothyroxine Sodium (Synthroid) 50 mcg DAILY06 11/27/19 06:00 11/28/19 06:25 50 MCG Morphine Sulfate (Morphine Sulfate) 4 mg 1X ONCE 11/26/19 17:45 11/26/19 17:47 DC 11/26/19 18:21 4 MG Ondansetron HCl (Zofran Odt) 4 mg PRN Q6HRS PRN 11/26/19 21:45 Ondansetron HCl (Zofran) 4 mg PRN Q4HRS PRN 11/26/19 21:45 Oxycodone/ Acetaminophen (Percocet 10/325) 1 tab PRN Q4HRS PRN 11/26/19 21:45 11/28/19 09:48 1 TAB Pantoprazole Sodium (Protonix) 40 mg DAILYAC 11/27/19 07:30 11/28/19 09:50 40 MG Prochlorperazine Maleate (Compazine) 5 mg PRN TID PRN 11/26/19 21:45 Sertraline HCl (Zoloft) 50 mg DAILY 11/27/19 09:00 11/28/19 09:51 50 MG Sodium Polystyrene Sulfonate (Kayexalate) 15 gm 1X ONCE 11/27/19 05:30 11/27/19 05:31 DC 11/27/19 06:21 15 GM Sodium Chloride 1,000 ml @ 1,000 mls/hr Q1H PRN 11/27/19 07:29 11/27/19 13:28 DC Vitamin B Complex/ Vitamin C (Pinky-Shreya) 1 tab DAILY 11/27/19 09:00 11/28/19 09:47 1 TAB Lab Laboratory Tests Test 11/27/19 12:25 11/27/19 12:30 11/27/19 17:22 11/28/19 07:16 Sodium Level 138 mmol/L (136-145) Potassium Level 4.3 mmol/L (3.5-5.1) Chloride Level 101 mmol/L (98-107) Carbon Dioxide Level 33 mmol/L (21-32) Anion Gap 4 (6-14) Blood Urea Nitrogen 19 mg/dL (7-20) Creatinine 2.3 mg/dL (0.6-1.0) Estimated GFR (Cockcroft-Gault) 26.4 Glucose Level 72 mg/dL (70-99) Calcium Level 9.2 mg/dL (8.5-10.1) Glucose (Fingerstick) 64 mg/dL (70-99) 145 mg/dL (70-99) 158 mg/dL (70-99) Results All relevant outside records, renal labs, imaging studies, telemetry/EKG's were reviewed. Justicifation of Admission Dx: Justifications for Admission: Justification of Admission Dx: Yes Chronic Renal Failure: Electrolyte Abnormality DOMINIQUE TSE MD Nov 28, 2019 10:45
[2019-11-28 10:54] VITALS: BP 113/49
[2019-11-28 11:08] LABS: CALCIUM 8.9 mg/dL (8.5-10.1); CREATININE 3.8 mg/dL (0.6-1.0); GFR 14.8; POTASSIUM 5.2 mmol/L (3.5-5.1)
[2019-11-28 14:37] VITALS: BP 124/55
[2019-11-28 19:47] VITALS: BP 139/58
[2019-11-28] MEDS: LATANOPROST 0.005% OPHTH SOLUTION 2.5ML BOTTLE. OU SCH (21:00)
[2019-11-28] MEDS: ATORVASTATIN CALCIUM 40 MG TABLET. PO SCH (21:00)
[2019-11-28 22:04] VITALS: BP 127/59
[2019-11-29] MEDS: fentaNYL PF VIAL 100 MCG/2 ML VIAL IVP PRN ×4 (01:02→11:32)
[2019-11-29] MEDS: oxyCODONE/APAP 10/325 1 TAB TABLET PO PRN ×3 (02:26→12:46)
[2019-11-29 02:32] VITALS: BP 158/69
[2019-11-29] MEDS: LEVOTHYROXINE 50 MCG TABLET PO SCH (06:00)
--- NOTE | 2019-11-29 06:08 | NUR ---
Pt refused 2000 assessment and v/s, requesting this nurse to pick pt up and carry her to the bathroom. Pt was told she could use a bedpan and became verbally aggressive towards staff and non compliant with pt care. Pt refused HS medications but frequently requested her pain medications stating, "i am not receiving my mediations, i know my rights." Pt continued to request being carried to bathroom and continue to be abrasive towards staff, requesting to speak with warehouse processor about her poor care. Pt was found to have smoking for a second time during this hospital stay, but repeatedly denied it. VSS, but pt did remove her telemetry, remained off for the remainder of shift. Bed in low/locked position, call light within reach, will continue to monitor for status changes.
[2019-11-29 07:00] VITALS: BP 174/73
[2019-11-29] MEDS ORDERED: IV NORMAL SALINE 1000ML BAG 1,000 ML IV PRN ×2 (07:10)
[2019-11-29] MEDS ORDERED: DIALYSIS PATIENT. MC PRN ×2 (07:15)
[2019-11-29] MEDS ORDERED: ALBUMIN HUMAN 25% 200 ML IV PRN (07:15)
[2019-11-29] MEDS ORDERED: LIDOCAINE 1% PF 2 ML VIAL. INJ ONE (07:45)
[2019-11-29] MEDS: INSULIN LISPRO 300 UNITS/3 ML VIAL. SQ SCH ×2 (08:00→12:00)
--- NOTE | 2019-11-29 08:37 | NUR ---
pt refused dilaysis until she could recieve her pain meds. patient left the unit at approx 0830 for dialysis.
[2019-11-29] MEDS ORDERED: diphenhydrAMINE 50 MG/ML VIAL IVP ONE (08:45)
[2019-11-29] MEDS: LACTOBACILLUS RHAMNOSUS GG 1 CAPSULE. PO SCH (08:49)
[2019-11-29] MEDS: FOLIC/VIT B COMP W-C (RENAL) TABLET. PO SCH (08:49)
[2019-11-29] MEDS: PANTOPRAZOLE 40 MG TABLET.DR. PO SCH (08:49)
--- NOTE | 2019-11-29 10:06 | PDOC ---
[employer] PROGRESS NOTE Date of Service DOS: DATE: 11/29/19 TIME: 10:05 Chief Complaint Chief Complaint Epigastric pain History of Present Illness History of Present Illness Patient in dialysis this morning. She has been accepted to a long-term acute care facility, with plans to discharge after dialysis. No new complaints. Vitals/I&O Vitals/I&O: Vital Signs Date Time Temp Pulse Resp B/P (MAP) Pulse Ox O2 Delivery O2 Flow Rate FiO2 11/29/19 08:06 90 Room Air 11/29/19 08:06 3.0 11/29/19 07:00 98.1 80 20 174/73 (106) 98.1 I & O 11/28/19 11/28/19 11/29/19 14:59 22:59 06:59 Intake Total 480 ml 240 ml 380 ml Balance 480 ml 240 ml 380 ml Physical Exam General: Alert, No acute distress Heart: Regular rate, Normal S1, Normal S2 Lungs: Clear Abdomen: Normal bowel sounds, No tenderness Extremities: No clubbing, No cyanosis Skin: No significant lesion Labs Labs: Laboratory Tests Test 11/28/19 10:45 11/28/19 11:55 11/28/19 16:16 11/29/19 08:07 Sodium Level 138 mmol/L (136-145) Potassium Level 5.2 mmol/L (3.5-5.1) Chloride Level 100 mmol/L (98-107) Carbon Dioxide Level 32 mmol/L (21-32) Anion Gap 6 (6-14) Blood Urea Nitrogen 37 mg/dL (7-20) Creatinine 3.8 mg/dL (0.6-1.0) Estimated GFR (Cockcroft-Gault) 14.8 Glucose Level 129 mg/dL (70-99) Calcium Level 8.9 mg/dL (8.5-10.1) Glucose (Fingerstick) 98 mg/dL (70-99) 83 mg/dL (70-99) 123 mg/dL (70-99) Assessment and Plan Assessmemt and Plan Problems Medical Problems: (1) ESRD (end stage renal disease) on dialysis Status: Chronic (2) Hyperkalemia Status: Acute Comment Review of Relevant I have reviewed the following items pamela (where applicable) has been applied. Medications: Current Medications Medications (Trade) Dose Ordered Sig/Clarence Route PRN Reason Start Time Stop Time Status Last Admin Dose Admin Lidocaine HCl (Xylocaine-Mpf 1% 2ml Vial) 2 ml 1X ONCE INJ 11/29/19 07:45 11/29/19 07:46 DC 11/29/19 08:49 Justifications for Admission Other Justification KAT VILLELA MD Nov 29, 2019 10:06
--- NOTE | 2019-11-29 10:44 | PDOC ---
DATE OF SERVICE DATE: 11/29/19 TIME: 10:41 SUBJECTIVE ROS Seen on dialysis , No complaints OBJECTIVE Vital Signs Vital Signs Date Time Temp Pulse Resp B/P (MAP) Pulse Ox O2 Delivery O2 Flow Rate FiO2 11/29/19 08:06 90 Room Air 11/29/19 08:06 3.0 11/29/19 07:00 98.1 80 20 174/73 (106) 98.1 I & 0 Intake and Output 11/29/19 07:00 Intake Total 1100 ml Balance 1100 ml Intake Oral 1100 ml PHYSICAL EXAM Physical Exam General: NAD HEENT: PERRLA, OM moist Neck Supple Lungs: dec BS , Non labored Heart: S1S2, RRR, n Abdomen: Normal bowel sounds, Soft, No tenderness, No Calvillo Extremities: Bila BKA , s/p amputation Rt middle finger , AVF + Skin: No rash Neuro- Grossly Normal DIAGNOSIS/ASSESSMENT Assessment & Plan ESRD - On HD MWF Seen on Dialysis, Tolerating well, continue as ordered, Dw DRn HTN Severe peripheral arterial disease - Bilateral BKA Diabetes w peripheral neuropathy Anemia - ARLIN and IV Fe as OP on dialysis 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 Per RN she has agreed to be dced to LTAC COMMENT/RELEVANT DATA Meds Current Medications Medications (Trade) Dose Ordered Sig/Clarence Start Time Stop Time Status Last Admin Dose Admin Albumin Human 200 ml @ 200 mls/hr 1X PRN PRN 11/29/19 07:15 11/29/19 13:14 Albuterol Sulfate (Ventolin Neb Soln) 2.5 mg PRN BID PRN 11/26/19 21:45 Amlodipine Besylate (Norvasc) 10 mg DAILY 11/27/19 09:00 11/28/19 09:49 10 MG Amylase/Lipase/ Protease (Zenpep 5,000) 1 cap TIDWMEALS 11/27/19 08:00 11/29/19 08:49 1 CAP Aspirin (Molly Aspirin) 325 mg 1X ONCE 11/26/19 19:15 11/26/19 19:16 DC 11/26/19 19:02 325 MG Atorvastatin Calcium (Lipitor) 40 mg HS 11/26/19 22:00 11/27/19 20:17 40 MG Bupropion HCl (Wellbutrin Xl) 300 mg DAILY 11/27/19 09:00 11/28/19 09:52 300 MG Calcium Gluconate (Calcium Gluconate) 1,000 mg 1X ONCE 11/26/19 19:15 11/26/19 19:16 DC 11/26/19 19:00 1,000 MG Carvedilol (Coreg) 12.5 mg BIDWMEALS 11/27/19 08:00 11/28/19 17:52 12.5 MG Clonidine HCl (Catapres Tts-2) 1 patch WEEKLY 12/03/19 09:00 Clopidogrel Bisulfate (Plavix) 75 mg DAILYWBKFT 11/27/19 08:00 11/27/19 12:51 75 MG Dextrose (Dextrose 50%-Water Syringe) 12.5 gm PRN Q15MIN PRN 11/26/19 19:45 Diphenhydramine HCl (Benadryl) 25 mg 1X ONCE 11/29/19 08:45 11/29/19 08:46 DC Fentanyl Citrate (Fentanyl 2ml Vial) 50 mcg PRN Q3HRS PRN 11/26/19 22:00 11/29/19 08:06 50 MCG Guaifenesin (Robitussin Dm) 10 ml PRN Q6HRS PRN 11/26/19 21:45 Hydralazine HCl (Apresoline Inj) 10 mg PRN Q4HRS PRN 11/26/19 19:45 11/27/19 04:15 10 MG Hydralazine HCl (Apresoline) 25 mg TID 11/26/19 22:00 11/28/19 14:22 25 MG Info (PHARMACY MONITORING -- do not chart) 1 each PRN DAILY PRN 11/29/19 07:15 Insulin Human Lispro (HumaLOG) 0-5 UNITS TIDWMEALS 11/27/19 08:00 11/28/19 10:00 2 UNITS Insulin Human Regular (HumuLIN R VIAL) 10 unit 1X ONCE 11/26/19 19:15 11/26/19 19:16 DC 11/26/19 19:02 10 UNIT Lactobacillus Rhamnosus (Culturelle) 1 cap BID 11/26/19 22:00 11/29/19 08:49 1 CAP Latanoprost (Xalatan) 1 drop HS 11/26/19 22:00 11/27/19 20:19 1 DROP Levothyroxine Sodium (Synthroid) 50 mcg DAILY06 11/27/19 06:00 11/28/19 06:25 50 MCG Lidocaine HCl (Xylocaine-Mpf 1% 2ml Vial) 2 ml 1X ONCE 11/29/19 07:45 11/29/19 07:46 DC 11/29/19 08:49 2 ML Morphine Sulfate (Morphine Sulfate) 4 mg 1X ONCE 11/26/19 17:45 11/26/19 17:47 DC 11/26/19 18:21 4 MG Ondansetron HCl (Zofran Odt) 4 mg PRN Q6HRS PRN 11/26/19 21:45 Ondansetron HCl (Zofran) 4 mg PRN Q4HRS PRN 11/26/19 21:45 Oxycodone/ Acetaminophen (Percocet 10/325) 1 tab PRN Q4HRS PRN 11/26/19 21:45 11/29/19 08:06 1 TAB Pantoprazole Sodium (Protonix) 40 mg DAILYAC 11/27/19 07:30 11/29/19 08:49 40 MG Prochlorperazine Maleate (Compazine) 5 mg PRN TID PRN 11/26/19 21:45 Sertraline HCl (Zoloft) 50 mg DAILY 11/27/19 09:00 11/28/19 09:51 50 MG Sodium Polystyrene Sulfonate (Kayexalate) 15 gm 1X ONCE 11/27/19 05:30 11/27/19 05:31 DC 11/27/19 06:21 15 GM Sodium Chloride 1,000 ml @ 400 mls/hr Q2H30M PRN 11/29/19 07:10 11/29/19 19:09 Vitamin B Complex/ Vitamin C (Pinky-Shreya) 1 tab DAILY 11/27/19 09:00 11/29/19 08:49 1 TAB Lab Laboratory Tests Test 11/28/19 10:45 11/28/19 11:55 11/28/19 16:16 11/29/19 08:07 Sodium Level 138 mmol/L (136-145) Potassium Level 5.2 mmol/L (3.5-5.1) Chloride Level 100 mmol/L (98-107) Carbon Dioxide Level 32 mmol/L (21-32) Anion Gap 6 (6-14) Blood Urea Nitrogen 37 mg/dL (7-20) Creatinine 3.8 mg/dL (0.6-1.0) Estimated GFR (Cockcroft-Gault) 14.8 Glucose Level 129 mg/dL (70-99) Calcium Level 8.9 mg/dL (8.5-10.1) Glucose (Fingerstick) 98 mg/dL (70-99) 83 mg/dL (70-99) 123 mg/dL (70-99) Results All relevant outside records, renal labs, imaging studies, telemetry/EKG's were reviewed. Justicifation of Admission Dx: Justifications for Admission: Justification of Admission Dx: Yes Chronic Renal Failure: Electrolyte Abnormality DOMINIQUE TSE MD Nov 29, 2019 10:44
[2019-11-29] MEDS: CARVEDILOL 12.5 MG TABLET. PO SCH (12:11)
[2019-11-29] MEDS: amLODIPine BESYLATE 10 MG TABLET PO SCH (12:11)
[2019-11-29] MEDS: hydrALAZINE 25 MG TABLET PO SCH ×2 (12:12→14:28)
[2019-11-29] MEDS: CLOPIDOGREL BISULFATE 75 MG TABLET PO SCH (12:45)
[2019-11-29] MEDS: buPROPion XL 150 MG TAB.ER.24H. PO SCH (12:47)
[2019-11-29] MEDS: SERTRALINE 50 MG TABLET. PO SCH (12:48)
[2019-11-29] MEDS: diphenhydrAMINE HCL 25 MG CAPSULE PO PRN (12:48)
[2019-11-29 13:13] VITALS: BP 173/72
--- NOTE | 2019-11-29 14:19 | NUR ---
REPORT CALLED TO THE [facility] AT APPROX 1330. SPOKE WITH OTTONIEL AND GAVE HER CONTACT INFORMATION IF ANY QUESTIONS.
[2019-11-29 14:28] VITALS: BP 146/63
[2019-12-03] MEDS ORDERED: cloNIDine TTS-2 1 PATCH PATCH TD SCH (09:00)
== END 2019-11-29 15:35 | DRG 640 ==
LOC: ER 16:41 → ED HOLD 19:20 → 2 SOUTH 20:38
PROVIDERS: ADMIT Internal Medicine; ATTEND Internal Medicine
PROC: 5A1D70Z Performance of Urinary Filtration, Intermittent, Less than 6 Hours Per Day (ICD-10-PCS; 2019-11-27)
PROC: 5A1D70Z Performance of Urinary Filtration, Intermittent, Less than 6 Hours Per Day (ICD-10-PCS; principal; 2019-11-29)
DX: E87.5 Hyperkalemia (principal); N18.6 End stage renal disease; I24.8 Other forms of acute ischemic heart disease; I13.2 Hypertensive heart and chronic kidney disease with heart failure and with stage 5 chronic kidney disease, or end stage renal disease; I50.40 Unspecified combined systolic (congestive) and diastolic (congestive) heart failure; E44.1 Mild protein-calorie malnutrition; E03.9 Hypothyroidism, unspecified; E11.22 Type 2 diabetes mellitus with diabetic chronic kidney disease; E11.40 Type 2 diabetes mellitus with diabetic neuropathy, unspecified; E11.51 Type 2 diabetes mellitus with diabetic peripheral angiopathy without gangrene; E78.5 Hyperlipidemia, unspecified; F31.9 Bipolar disorder, unspecified; G89.4 Chronic pain syndrome; I50.9 Heart failure, unspecified; J44.9 Chronic obstructive pulmonary disease, unspecified; K21.9 Gastro-esophageal reflux disease without esophagitis; M79.7 Fibromyalgia; Z79.4 Long term (current) use of insulin; Z79.899 Other long term (current) drug therapy; Z82.49 Family history of ischemic heart disease and other diseases of the circulatory system; Z83.3 Family history of diabetes mellitus; Z87.01 Personal history of pneumonia (recurrent); Z89.511 Acquired absence of right leg below knee; Z89.512 Acquired absence of left leg below knee; Z90.710 Acquired absence of both cervix and uterus; Z99.2 Dependence on renal dialysis; E21.3 Hyperparathyroidism, unspecified; G47.30 Sleep apnea, unspecified; G62.9 Polyneuropathy, unspecified; M19.90 Unspecified osteoarthritis, unspecified site; Z20.828 Contact with and (suspected) exposure to other viral communicable diseases
CPT/HCPCS: 36415; 71045; 80048; 80053; 80061; 82962; 83690; 83735; 83880; 84484; 85025; 85610; 85730; 93005; 96374; 96375; 99291; J0360; J0610; J1815; J2270; J3010; J3490; G0378; Q0163; U0003-CS

== ENCOUNTER 2019-11-30 13:34 | Emergency (ER) | payer MEDICAID ==
[~2019-11-30] VITALS: Ht 167.6 cm; Wt 80.0 kg
[2019-11-30] MEDS ORDERED: NITROGLYCERIN SUBLINGUAL 0.4 MG BOTTLE OF 25. SL PRN (14:15)
[2019-11-30] MEDS ORDERED: ASPIRIN 325 MG TABLET PO ONE (14:45)
--- NOTE | 2019-11-30 14:48 | RAD ---
PORTABLE CHEST 1V 11/30/2019 2:15 PM INDICATION: Chest pain COMPARISON: 11/26/2019 TECHNIQUE: Portable frontal view of the chest is provided. FINDINGS: The cardiomediastinal silhouette is enlarged, stable there are small bilateral pleural effusions with adjacent compressive atelectasis versus infiltrate, improved since prior examination. Mild mixed interstitial and alveolar airspace disease identified with perihilar distribution predominantly involving the right lung, improving compared to prior examination. Vascular stents are identified in the left upper extremity. Atherosclerotic calcification is identified in upper extremities bilaterally. Mild pulmonary vascular congestion. No pneumothorax. No suspicious osseous abnormality. IMPRESSION: Improving aeration of the lungs compared to prior examination as described in detail above. Electronically signed by: Neris Luo MD (11/30/2019 2:45 PM) JOSELYN
--- NOTE | 2019-11-30 14:49 | EKG ---
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
[2019-11-30] MEDS: fentaNYL PF VIAL 100 MCG/2 ML VIAL IV PRN ×4 (14:51→20:11)
[2019-11-30 14:53] LABS: BASO % 1 % (0-3); EOS % 0 % (0-3); HEMATOCRIT 30.1 % (36.0-47.0); HEMOGLOBIN 10.2 g/dL (12.0-15.5); LYMPH # 0.9 x10^3/uL (1.0-4.8); LYMPH % 15 % (24-48); MEAN CORPUSCULAR HEMOGLOBIN 32 pg (25-35); MEAN CORPUSCULAR HGB CONC 34 g/dL (31-37); MEAN CORPUSCULAR VOLUME 96 fL (79-100); MONO # 0.5 x10^3/uL (0.0-1.1); MONO % 8 % (0-9); NEUT # 4.5 x10^3/uL (1.8-7.7); NEUT % 76 % (31-73); PLATELET COUNT 242 x10^3/uL (140-400); RED BLOOD COUNT 3.15 x10^6/uL (3.50-5.40); RED CELL DISTRIBUTION WIDTH 19.4 % (11.5-14.5); WHITE BLOOD COUNT 5.9 x10^3/uL (4.0-11.0)
[2019-11-30 15:04] LABS: CALCIUM 9.2 mg/dL (8.5-10.1); CREATININE 3.9 mg/dL (0.6-1.0); GFR 14.4; POTASSIUM 5.3 mmol/L (3.5-5.1)
[2019-11-30 15:10] LABS: ALBUMIN 3.2 g/dL (3.4-5.0); ALBUMIN/GLOBULIN RATIO 0.8 (1.0-1.7); MAGNESIUM 2.4 mg/dL (1.8-2.4); TOTAL BILIRUBIN 0.5 mg/dL (0.2-1.0); TOTAL PROTEIN 7.1 g/dL (6.4-8.2)
--- NOTE | 2019-11-30 19:44 | PHYS DOC ---
Past Medical History Past Medical History: Diabetes-Type II, Hypertension, Renal Failure Additional Past Medical Histor: neuropathy, cataracts,CHRONIC PAIN,ESRD,PNEUMONIA,SLEEP APNEA (FARIBAJOAN Finnegan APRN) Past Surgical History: No Surgical History Additional Past Surgical Histo: bilateral BKA (INESJOAN IGLESIAS) Smoking Status: Former Smoker Alcohol Use: None Drug Use: None (INESJOAN APRN) General Adult EDM: Chief Complaint: CHEST PAIN HPI: HPI: Patient is a 59 year old female with history of diabetes type 2, hypertension, BKA bilaterally, right middle finger amputation, end-stage kidney disease on dialysis Monday who presents the ED today complaining of 10 out of 10 substernal nonradiating chest pain. Patient states she was discharged from the hospital yesterday with the same pain. She states she had been admitted for 3 days with the same pain. Patient denies any exacerbating or re lieving factors. (FARIBAJOAN Finnegan APRN) Review of Systems: Review of Systems: Constitutional: Denies fever or chills. [] Eyes: Denies change in visual acuity. [] HENT: Denies nasal congestion or sore throat. [] Respiratory: Denies cough or shortness of breath. [] Cardiovascular: Reports chest pain GI: Denies abdominal pain, nausea, vomiting, bloody stools or diarrhea. [] : Denies dysuria. [] Musculoskeletal: Denies back pain or joint pain. [] Integument: Denies rash. [] Neurologic: Denies headache, focal weakness or sensory changes. [] Endocrine: End-stage kidney disease Lymphatic: Denies swollen glands. [] Psychiatric: Denies depression or anxiety. [] (JOAN CHACON APRN) Heart Score: HEART Score for Chest Pain: HEART Score for Chest Pain Response (Comments) Value History Slighlty/Non-Suspicious 0 ECG Normal 0 Age >45 - < 65 1 Risk Factors >3 Risk Factors or Hx CAD 2 Troponin < Normal Limit 0 Total 3 Risk Factors: Risk Factors: DM, Current or recent (<one month) smoker, HTN, HLP, family history of CAD, obesity. Risk Scores: Score 0 - 3: 2.5% MACE over next 6 weeks - Discharge Home Score 4 - 6: 20.3% MACE over next 6 weeks - Admit for Clinical Observation Score 7 - 10: 72.7% MACE over next 6 weeks - Early Invasive Strategies (JOAN CHACON APRN) Current Medications: Current Medications Medications (Trade) Dose Ordered Sig/Clarence Start Time Stop Time Status Last Admin Dose Admin Aspirin (Molly Aspirin) 325 mg 1X ONCE 11/30/19 14:45 11/30/19 14:46 DC 11/30/19 14:50 325 MG Fentanyl Citrate (Fentanyl 2ml Vial) 50 mcg PRN Q15MIN PRN 11/30/19 14:15 12/01/19 14:14 11/30/19 17:59 50 MCG Nitroglycerin (Nitrostat) 0.4 mg PRN Q5MIN PRN 11/30/19 14:15 12/01/19 14:14 (JOAN CHACON APRN) Allergies: Allergies: Allergies Coded Allergies Type Severity Reaction Last Updated Verified No Known Drug Allergies 02/27/19 No (JOAN CHACON APRN) Physical Exam: PE: Constitutional: Well developed, well nourished, no acute distress, non-toxic appearance. [] HENT: Normocephalic, atraumatic, bilateral external ears normal, oropharynx moist, no oral exudates, nose normal. [] Eyes: PERRLA, EOMI, conjunctiva normal, no discharge. [] Neck: Normal range of motion, no tenderness, supple, no stridor. [] Cardiovascular:Heart rate regular rhythm, no murmur [] Lungs & Thorax: Bilateral breath sounds clear to auscultation [] Abdomen: Bowel sounds normal, soft, no tenderness, no masses, no pulsatile masses. [] Skin: Warm, dry, no erythema, no rash. [] Back: No tenderness, no CVA tenderness. [] Extremities: No tenderness, no cyanosis, no clubbing, ROM intact, bilateral BKA, right middle finger amputation Neurologic: Alert and oriented X 3, normal motor function, normal sensory function, no focal deficits noted. [] Psychologic: Affect normal, judgement normal, mood normal. [] (JOAN CHACON APRN) Current Patient Data: Labs: Laboratory Tests Test 11/30/19 14:40 White Blood Count 5.9 x10^3/uL (4.0-11.0) Red Blood Count 3.15 x10^6/uL (3.50-5.40) L Hemoglobin 10.2 g/dL (12.0-15.5) L Hematocrit 30.1 % (36.0-47.0) L Mean Corpuscular Volume 96 fL (79-100) Mean Corpuscular Hemoglobin 32 pg (25-35) Mean Corpuscular Hemoglobin Concent 34 g/dL (31-37) Red Cell Distribution Width 19.4 % (11.5-14.5) H Platelet Count 242 x10^3/uL (140-400) Neutrophils (%) (Auto) 76 % (31-73) H Lymphocytes (%) (Auto) 15 % (24-48) L Monocytes (%) (Auto) 8 % (0-9) Eosinophils (%) (Auto) 0 % (0-3) Basophils (%) (Auto) 1 % (0-3) Neutrophils # (Auto) 4.5 x10^3/uL (1.8-7.7) Lymphocytes # (Auto) 0.9 x10^3/uL (1.0-4.8) L Monocytes # (Auto) 0.5 x10^3/uL (0.0-1.1) Eosinophils # (Auto) 0.0 x10^3/uL (0.0-0.7) Basophils # (Auto) 0.0 x10^3/uL (0.0-0.2) Sodium Level 137 mmol/L (136-145) Potassium Level 5.3 mmol/L (3.5-5.1) H Chloride Level 99 mmol/L (98-107) Carbon Dioxide Level 35 mmol/L (21-32) H Anion Gap 3 (6-14) L Blood Urea Nitrogen 28 mg/dL (7-20) H Creatinine 3.9 mg/dL (0.6-1.0) H Estimated GFR (Cockcroft-Gault) 14.4 BUN/Creatinine Ratio 7 (6-20) Glucose Level 140 mg/dL (70-99) H Calcium Level 9.2 mg/dL (8.5-10.1) Magnesium Level 2.4 mg/dL (1.8-2.4) Total Bilirubin 0.5 mg/dL (0.2-1.0) Aspartate Amino Transferase (AST) 36 U/L (15-37) Alanine Aminotransferase (ALT) 31 U/L (14-59) Alkaline Phosphatase 111 U/L (46-116) Troponin I Quantitative 0.120 ng/mL (0.000-0.055) LH-Vnj-K-Type Natriuretic Peptide > 51956 pg/mL (0-124) H Total Protein 7.1 g/dL (6.4-8.2) Albumin 3.2 g/dL (3.4-5.0) L Albumin/Globulin Ratio 0.8 (1.0-1.7) L Laboratory Tests 11/30/19 14:40 Laboratory Tests 11/30/19 14:40 Vital Signs: Vital Signs Date Time Temp Pulse Resp B/P (MAP) Pulse Ox O2 Delivery O2 Flow Rate FiO2 11/30/19 19:20 97.6 74 17 192/72 (112) 98 Room Air 97.6 (JOAN CHACON APRN) EKG: EKG: [] (JOAN CHACON APRN) Radiology/Procedures: Radiology/Procedures: []PROCEDURE: PORTABLE CHEST 1V PORTABLE CHEST 1V 11/30/2019 2:15 PM INDICATION: Chest pain COMPARISON: 11/26/2019 TECHNIQUE: Portable frontal view of the chest is provided. FINDINGS: The cardiomediastinal silhouette is enlarged, stable there are small bilateral pleural effusions with adjacent compressive atelectasis versus infiltrate, improved since prior examination. Mild mixed interstitial and alveolar airspace disease identified with perihilar distribution predominantly involving the right lung, improving compared to prior examination. Vascular stents are identified in the left upper extremity. Atherosclerotic calcification is identified in upper extremities bilaterally. Mild pulmonary vascular congestion. No pneumothorax. No suspicious osseous abnormality. IMPRESSION: Improving aeration of the lungs compared to prior examination as described in detail above. Electronically signed by: Romaine Reyes MD (11/30/2019 2:45 PM) [facility] DICTATED and SIGNED BY: ROMAINE REYES MD DATE: 11/30/19 5416 (JOAN CHACON APRN) Course & Med Decision Making: Course & Med Decision Making Pertinent Labs and Imaging studies reviewed. (See chart for details) This is a 59-year-old female patient well-known to this ED presenting today complaining of chest pain. Patient was discharged from the hospital yesterday with chest pain per her statement. Her work-up was negative for any acute findings infarct with chest x-ray shows improvement in aeration in her chest. Her troponin is within her baseline 0.120. She was dialyzed yesterday. Patient was discharged to home. Follow-up with her own doctor in 1 to 2 weeks (JOAN CHACON APRN) Melisa Disclaimer: Melisa Disclaimer: This electronic medical record was generated, in whole or in part, using a voice recognition dictation system. (JOAN CHACON APRN) Departure Departure Impression: Primary Impression: ESRD (end stage renal disease) on dialysis Additional Impression: Chest pain Disposition: HOME, SELF-CARE Condition: STABLE Referrals: NO PCP (PCP) Follow-up with your doctor next week Patient Instructions: Chest Pain (Nonspecific) Additional Instructions: Follow up with your doctor next week. Please continue going to dialysis Justicifation of Admission Dx: Justifications for Admission: Justification of Admission Dx: Yes Chronic Renal Failure: Electrolyte Abnormality (JOAN CHACON APRN) Attending Signature Attending Signature I have reviewed the PA/REFRIGERATION REPAIR SUPERVISOR's note and plan of care. I was available for consultation as needed during the patient's visit in the emergency department. I agree with the clinical impression, plan, and disposition. (MARQUISE ZAMBRANO DO) JOAN CHACON APRN Nov 30, 2019 19:44 MARQUSIE ZAMBRANO DO Dec 01, 2019 06:24
[2019-11-30] MEDS ORDERED: cloNIDine HCL 0.1 MG TABLET PO ONE (20:15)
[2019-11-30] MEDS ORDERED: SODIUM POLYSTYRENE SULFON/SORB 15 GM/60 ML ORAL.SUSP. PO ONE (20:30)
[2019-11-30 21:57] VITALS: BP 162/72
[2019-12-01] MEDS ORDERED: HYDR-3164 PO (17:20)
== END 2019-11-30 21:57 | disposition home or self-care (01) ==
LOC: ER 13:34
DX: N18.6 End stage renal disease (principal); R07.89 Other chest pain; E11.9 Type 2 diabetes mellitus without complications; I10 Essential (primary) hypertension; G89.29 Other chronic pain; E11.40 Type 2 diabetes mellitus with diabetic neuropathy, unspecified; Z87.891 Personal history of nicotine dependence; Z99.2 Dependence on renal dialysis
CPT/HCPCS: 36415; 71045; 80053; 83735; 83880; 84484; 85025; 93005; 96374; 96376; 99285; J3010; 96361

== ENCOUNTER 2019-12-01 13:45 | Emergency (ER) | payer MEDICAID ==
[~2019-12-01] VITALS: Ht 160 cm; Wt 54.5 kg
[2019-12-01 14:00] VITALS: BP 126/51
[2019-12-01] MEDS ORDERED: ASPIRIN 325 MG TABLET PO ONE (14:15)
--- NOTE | 2019-12-01 14:45 | PHYS DOC ---
Past Medical History Past Medical History: Diabetes-Type II, Hypertension, Renal Failure Additional Past Medical Histor: neuropathy, cataracts,CHRONIC PAIN,ESRD,PNEUMONIA,SLEEP APNEA Past Surgical History: No Surgical History Additional Past Surgical Histo: bilateral BKA Smoking Status: Former Smoker Alcohol Use: None Drug Use: None General Adult EDM: Chief Complaint: CHEST PAIN HPI: HPI: Mrs. Salazar is a 59-year-old -Romanian female who presents today with chest pain. She says her pain has been ongoing since yesterday evening. She presented yesterday November 29, for the same chief complaint was worked up and deemed to be normal and was sent home. She describes the pain as "15 out of 10" sharp like "needles stabbing" radiating to her neck and both arms. Patient describes ongoing shortness of breath inconsistent with physical exam findings. She reports having vomited last night. she was admitted to our facility on November 25 through the for hyperkalemia. Admission K+ was 6.6 on November 25. Patient repeatedly states during physical exam and history "the doctor said if I came back I would be admitted." Past medical history: Congestive heart failure, type 2 diabetes, hypertension Surgical history: Bilateral BKA, amputation of left middle finger. Recent hospitalization for hyperkalemia. Review of Systems: Review of Systems: Constitutional: Denies fever or chills Eyes: Denies redness or eye pain HENT: Denies nasal congestion or sore throat Respiratory: Denies cough or shortness of breath Cardiovascular: Denies chest pain or palpitations GI: Denies abdominal pain, nausea, or vomiting : Denies dysuria or hematuria Musculoskeletal: Denies back pain or joint pain Integument: Denies rash or skin lesions Neurologic: Denies headache, focal weakness or sensory changes Complete systems were reviewed and found to be within normal limits, except as documented in this note. Heart Score: HEART Score for Chest Pain: HEART Score for Chest Pain Response (Comments) Value History Moderately Suspicious 1 ECG Normal 0 Age < 45 0 Risk Factors No Risk Factors 0 Troponin < Normal Limit 0 Total 1 Risk Factors: Risk Factors: Diabetes, congestive heart failure, hypertension, positive family history. Risk Scores: Score 0 - 3: 2.5% MACE over next 6 weeks - Discharge Home Score 4 - 6: 20.3% MACE over next 6 weeks - Admit for Clinical Observation Score 7 - 10: 72.7% MACE over next 6 weeks - Early Invasive Strategies Current Medications: Current Medications Medications (Trade) Dose Ordered Sig/Clarence Start Time Stop Time Status Last Admin Dose Admin Aspirin (Molly Aspirin) 325 mg 1X ONCE 12/01/19 14:15 12/01/19 14:16 DC Allergies: Allergies: Allergies Coded Allergies Type Severity Reaction Last Updated Verified No Known Drug Allergies 02/27/19 No Physical Exam: PE: Constitutional: Patient appears much older than stated age, with apparent bilateral BKA, and right middle finger amputation. During physical exam patient is tender to palpation in all places saying "why are you being so rough with me." Despite very very mild palpation. HENT: Normocephalic, atraumatic, cranial nerves II through XII grossly intact bilaterally. Eyes: PERRL, EOMI, apparent bilateral cataracts. Neck: Normal range of motion, no tenderness, supple no carotid bruit. Lungs & Thorax: Bilateral breath sounds clear to auscultation, no wheezing Heart: Regular rate and rhythm no murmurs S1 and S2 normal, S3 present and loud. Abdomen: Soft, no tenderness. Bowel sounds present all 4 quadrants abdominal tenderness in all 4 quadrants. Skin: Warm, dry, no erythema, no rash Back: No tenderness, no CVA tenderness Extremities: ROM intact, no edema 1+ pulses in the upper extremity. Neurologic: Alert and oriented X 3, normal motor function, normal sensory function, no focal deficits noted Psychologic: Affect normal, judgment normal patient appears to be depressed. And regularly quits responding throughout the interview staring into space. Blunted affect. Current Patient Data: Vital Signs: Vital Signs Date Time Temp Pulse Resp B/P (MAP) Pulse Ox O2 Delivery O2 Flow Rate FiO2 12/01/19 14:00 97.2 66 18 126/51 (76) Room Air 94.0 97.2 EKG: EK12-01-2019 at 1400 IN 184 ms QRS: 88 ms QT: 456 ms QTc: 470 ms Interpretation: Normal sinus rhythm. Radiology/Procedures: Radiology/Procedures: [] Course & Med Decision Making: Course & Med Decision Making 59-year-old -Romanian female presents with acute chest pain. Patient's physical exam findings are inconsistent with history, additionally the patient seems to be tender in all places and have all symptoms when asked. Patient is well-known to our facility, and was just recently discharged. It seems apparent patient wants admission to hospital. EKG entirely negative for any acute pathologies. Troponins pending. Dragon Disclaimer: Melisa Disclaimer: This electronic medical record was generated, in whole or in part, using a voice recognition dictation system. Departure Departure Impression: Primary Impression: Chronic chest pain Disposition: HOME, SELF-CARE (back to residential) Condition: STABLE Referrals: NO PCP (PCP) LYNN HACKETT MD Patient Instructions: Chest Pain (Nonspecific), [id number] Additional Instructions: Please follow with your doctor for your chronic pain. Scripts Hydrocodone/Apap 5-325 (NORCO 5-325 TABLET) 1 Each Tablet 0.5-1 TAB PO PRN Q6HRS PRN for PAIN, #10 TAB 0 Refills Prov: MARQUISE ZAMBRANO DO 12/01/19 Justicifation of Admission Dx: Justifications for Admission: Justification of Admission Dx: Yes Chronic Renal Failure: Electrolyte Abnormality MARQUISE ZAMBRANO DO Dec 01, 2019 14:45
[2019-12-01 16:04] LABS: BASO % 1 % (0-3); EOS % 0 % (0-3); HEMATOCRIT 32.5 % (36.0-47.0); HEMOGLOBIN 10.9 g/dL (12.0-15.5); LYMPH # 0.8 x10^3/uL (1.0-4.8); LYMPH % 16 % (24-48); MEAN CORPUSCULAR HEMOGLOBIN 32 pg (25-35); MEAN CORPUSCULAR HGB CONC 34 g/dL (31-37); MEAN CORPUSCULAR VOLUME 96 fL (79-100); MONO # 0.3 x10^3/uL (0.0-1.1); MONO % 7 % (0-9); NEUT # 3.6 x10^3/uL (1.8-7.7); NEUT % 75 % (31-73); PLATELET COUNT 241 x10^3/uL (140-400); RED BLOOD COUNT 3.38 x10^6/uL (3.50-5.40); RED CELL DISTRIBUTION WIDTH 19.4 % (11.5-14.5); WHITE BLOOD COUNT 4.7 x10^3/uL (4.0-11.0)
[2019-12-01 16:17] LABS: CALCIUM 9.3 mg/dL (8.5-10.1); GFR 10.8; POTASSIUM 5.3 mmol/L (3.5-5.1)
[2019-12-01 16:23] LABS: ALBUMIN 3.2 g/dL (3.4-5.0); ALBUMIN/GLOBULIN RATIO 0.9 (1.0-1.7); MAGNESIUM 2.4 mg/dL (1.8-2.4); TOTAL BILIRUBIN 0.4 mg/dL (0.2-1.0); TOTAL PROTEIN 6.9 g/dL (6.4-8.2)
--- NOTE | 2019-12-01 16:38 | RAD ---
CHEST AP ONLY 12/01/2019 3:49 PM INDICATION: Chest pain COMPARISON: 11/30/2019 TECHNIQUE: Portable frontal view of the chest is provided. FINDINGS: The cardiomediastinal silhouette is enlarged, stable. Small bilateral pleural effusions with adjacent compressive atelectasis versus infiltrate. Moderate pulmonary vascular congestion. No suspicious osseous abnormality. Vascular stent is identified in the left arm. IMPRESSION: Aeration of the lungs appears similar to the prior examination. Electronically signed by: Neris Luo MD (12/01/2019 4:35 PM) [facility]
[2019-12-01] MEDS ORDERED: HYDR-3164 PO (17:20)
[2019-12-01] MEDS ORDERED: HYDROcodone/APAP 5/325MG 1 TAB TABLET PO ONE (18:00)
--- NOTE | 2019-12-03 15:40 | EKG ---
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
== END 2019-12-01 19:57 | disposition home or self-care (01) ==
LOC: ER 13:45
DX: G89.29 Other chronic pain (principal); R07.89 Other chest pain; M54.2 Cervicalgia; M79.601 Pain in right arm; M79.602 Pain in left arm; E78.00 Pure hypercholesterolemia, unspecified; E11.40 Type 2 diabetes mellitus with diabetic neuropathy, unspecified; I13.2 Hypertensive heart and chronic kidney disease with heart failure and with stage 5 chronic kidney disease, or end stage renal disease; I50.9 Heart failure, unspecified; N18.6 End stage renal disease; E87.5 Hyperkalemia; Z87.891 Personal history of nicotine dependence
CPT/HCPCS: 36415; 71045; 80053; 83690; 83735; 83880; 84484; 85025; 85730; 93005; 99285-25

== ENCOUNTER 2019-12-18 20:57 | Inpatient (IN) | payer MEDICAID ==
[~2019-12-18] VITALS: Ht 157.5 cm; Wt 54.7 kg
[2019-12-18] MEDS ORDERED: MORPHINE SULFATE 4 MG/ML VIAL. IV/SQ PRN (21:15)
[2019-12-18] MEDS ORDERED: ASPIRIN 325 MG TABLET PO ONE (21:30)
[2019-12-18] MEDS: NITROGLYCERIN SUBLINGUAL 0.4 MG BOTTLE OF 25. SL PRN ×2 (21:40→21:42)
--- NOTE | 2019-12-18 22:55 | RAD ---
PORTABLE CHEST 1V Clinical Indication: Reason: chest pain / Spl. Instructions: / History: Comparison: AP chest, December 01, 2019. Findings: Stable cardiomegaly. Small bilateral pleural effusions are unchanged. Diffuse interstitial opacities are unchanged. There are bibasilar airspace opacities. There is no pneumothorax. Extensive vascular stents in the left upper extremity. IMPRESSION: Stable chest findings. Electronically signed by: Jose G Kahn MD (12/18/2019 10:52 PM) [facility]
--- NOTE | 2019-12-18 23:15 | PHYS DOC ---
Past Medical History Past Medical History: Diabetes-Type II, Hypertension, Renal Failure Additional Past Medical Histor: neuropathy, cataracts,CHRONIC PAIN,ESRD,PNEUMONIA,SLEEP APNEA (JOAN CHACON APRN) Past Surgical History: No Surgical History Additional Past Surgical Histo: bilateral BKA (JOAN CHACON APRN) Smoking Status: Former Smoker Alcohol Use: None Drug Use: None (JOAN CHACON APRN) General Adult EDM: Chief Complaint: CHEST PAIN HPI: HPI: Patient is a 59 year old female with history of bilateral BKA, diabetes type 2, hypertension, end-stage kidney disease on dialysis Monday last dialyzed on Monday who presents the ED today complaining of 10 out of 10 left- sided sharp chest pain that began last night. Patient denies anything specifically exacerbating or relieving her chest pain. She states today she went for her dialysis session that she "boboed" there and they told her they are really not supposed to clean her so they cleaned and sent her home without tata lyzing her. (JOAN CHACON APRN) Review of Systems: Review of Systems: Constitutional: Denies fever or chills. [] Eyes: Denies change in visual acuity. [] HENT: Denies nasal congestion or sore throat. [] Respiratory: Denies cough or shortness of breath. [] Cardiovascular: Reports left-sided chest pain GI: Denies abdominal pain, nausea, vomiting, bloody stools or diarrhea. [] : Denies dysuria. [] Musculoskeletal: Denies back pain or joint pain. [] Integument: Denies rash. [] Neurologic: Denies headache, focal weakness or sensory changes. [] Psychiatric: Denies depression or anxiety. [] (JOAN CHACON APRN) Heart Score: Risk Factors: Risk Factors: DM, Current or recent (<one month) smoker, HTN, HLP, family history of CAD, obesity. Risk Scores: Score 0 - 3: 2.5% MACE over next 6 weeks - Discharge Home Score 4 - 6: 20.3% MACE over next 6 weeks - Admit for Clinical Observation Score 7 - 10: 72.7% MACE over next 6 weeks - Early Invasive Strategies (JOAN CHACON APRN) Current Medications: Current Medications Medications (Trade) Dose Ordered Sig/Clarence Start Time Stop Time Status Last Admin Dose Admin Aspirin (Molly Aspirin) 325 mg 1X ONCE 12/18/19 21:30 12/18/19 21:31 DC Morphine Sulfate (Morphine Sulfate) 4 mg 1X ONCE 12/18/19 23:30 12/18/19 23:31 Nitroglycerin (Nitrostat) 0.4 mg PRN Q5MIN PRN 12/18/19 21:15 12/19/19 21:14 (JOAN CHACON APRN) Allergies: Allergies: Allergies Coded Allergies Type Severity Reaction Last Updated Verified No Known Drug Allergies 02/27/19 No (JOAN CHACON APRN) Physical Exam: PE: Constitutional: Well developed, well nourished, no acute distress, non-toxic appearance. [] HENT: Normocephalic, atraumatic, bilateral external ears normal, oropharynx moist, no oral exudates, nose normal. [] Eyes: PERRLA, EOMI, conjunctiva normal, no discharge. [] Neck: Normal range of motion, no tenderness, supple, no stridor. [] Cardiovascular:Heart rate regular rhythm, no murmur [] Lungs & Thorax: Bilateral breath sounds clear to auscultation [] Abdomen: Bowel sounds normal, soft, no tenderness, no masses, no pulsatile masses. [] Skin: Warm, dry, no erythema, no rash. [] Back: No tenderness, no CVA tenderness. [] Extremities: Bilateral BKA, patient condition of the left middle finger. No tenderness, no cyanosis, no clubbing, ROM intact, no edema. [] Neurologic: Alert and oriented X 3, normal motor function, normal sensory fun ction, no focal deficits noted. [] Psychologic: Affect normal, judgement normal, mood normal. [] (JOAN CHACON APRN) EKG: EKG: [] (JOAN CHACON APRN) Radiology/Procedures: Radiology/Procedures: [] (JOAN CHACON APRN) Course & Med Decision Making: Course & Med Decision Making Pertinent Labs and Imaging studies reviewed. (See chart for details) This is a 59-year-old female patient well-known to this ED presenting today complaining of left-sided chest pain. Patient has been seen in the ED for her chronic chest pain multiple times. Today she apparently missed dialysis because she had a bowel movement during the dialysis session so they sent her home. 2335 Pending labs. Car transferred to Dr. Owens (JOAN CHACON APRN) Course & Med Decision Making Concern for atypical chest pain in the setting of ESRD with increasing elevated troponin. No ST elevations on EKG. Patient also missed dialysis on Monday. Will admit for cardiology and nephrology consultation. Patient stable at time of admission and agrees with this plan. I have spoken with the patient and/or caregivers. I have explained the patient's condition, diagnosis and treatment plan based on the information available to me at this time. I have answered the patient's and/or caregivers questions and answered any concerns. The patient and/or caregivers have as good an understanding of the patient's diagnosis, condition and treatment plan as can be expected at this point. The patient has been stabilized within the capability of the emergency department. The patient will be transported for further care and management or will be moved to an observation or inpatient service. I have communicated with the staff or medical practitioner taking over this patient's care. (KVNG OWENS DO) Dragon Disclaimer: Dragon Disclaimer: This electronic medical record was generated, in whole or in part, using a voice recognition dictation system. (JOAN CHACON APRN) Departure Departure Impression: Primary Impression: Chest pain Additional Impression: Elevated troponin Disposition: ADMITTED INPATIENT Admitting Physician: SOFI (Dr. De Guzman) (KVNG OWENS DO) Condition: STABLE Referrals: NO PCP (PCP) Cony Diehl MD [facility] [place], [place] Address: [address] [place] [id number] Patient Instructions: Chest Pain (Nonspecific) Justicifation of Admission Dx: Justifications for Admission: Justification of Admission Dx: Yes Chronic Renal Failure: Electrolyte Abnormality (JOAN CHACON APRN) Justification of Admission Dx: Yes Angina: [facility] (KVNG OWENS DO) JOAN CHACNO APRN Dec 18, 2019 23:15 KVNG OWENS DO Dec 19, 2019 00:29
[2019-12-18 23:29] LABS: BASO # 0.1 x10^3/uL (0.0-0.2); BASO % 1 % (0-3); EOS % 1 % (0-3); HEMATOCRIT 31.3 % (36.0-47.0); HEMOGLOBIN 10.4 g/dL (12.0-15.5); LYMPH % 20 % (24-48); MEAN CORPUSCULAR HEMOGLOBIN 31 pg (25-35); MEAN CORPUSCULAR HGB CONC 33 g/dL (31-37); MEAN CORPUSCULAR VOLUME 94 fL (79-100); MONO # 0.4 x10^3/uL (0.0-1.1); MONO % 8 % (0-9); NEUT # 3.6 x10^3/uL (1.8-7.7); NEUT % 70 % (31-73); PLATELET COUNT 187 x10^3/uL (140-400); RED BLOOD COUNT 3.32 x10^6/uL (3.50-5.40); RED CELL DISTRIBUTION WIDTH 17.9 % (11.5-14.5); WHITE BLOOD COUNT 5.2 x10^3/uL (4.0-11.0)
[2019-12-18] MEDS ORDERED: MORPHINE SULFATE 4 MG/ML VIAL. IM ONE (23:30)
[2019-12-18 23:39] LABS: CALCIUM 9.5 mg/dL (8.5-10.1); CREATININE 4.8 mg/dL (0.6-1.0); GFR 11.3; POTASSIUM 4.9 mmol/L (3.5-5.1); PROTHROMBIN TIME PATIENT 14.6 SEC (11.7-14.0)
[2019-12-18 23:44] LABS: ALBUMIN 3.5 g/dL (3.4-5.0); ALBUMIN/GLOBULIN RATIO 1.3 (1.0-1.7); MAGNESIUM 2.5 mg/dL (1.8-2.4); TOTAL BILIRUBIN 0.4 mg/dL (0.2-1.0); TOTAL PROTEIN 6.3 g/dL (6.4-8.2)
[2019-12-19] MEDS ORDERED: ACETAMINOPHEN 325 MG TABLET. PO ONE (04:30)
[2019-12-19] MEDS ORDERED: KETOROLAC 15 MG/ML VIAL. IM ONE (06:00)
--- NOTE | 2019-12-19 06:03 | EKG ---
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
[2019-12-19] MEDS: oxyCODONE/APAP 5/325 1 TAB TABLET PO PRN ×3 (08:36→22:40)
--- NOTE | 2019-12-19 15:00 | PDOC2 ---
JAMALMORAIMA LLAMAS HARRIS 12/19/19 1500: CARDIAC CONSULT DATE OF CONSULT Date of Consult DATE: 12/19/19 TIME: 14:48 REASON FOR CONSULT Reason for Consult: Chest pain REFERRING PHYSICIAN Referring Physician: Lakeisha Navarrete APRN SOURCE Source: Chart review, Patient HISTORY OF PRESENT ILLNESS HISTORY OF PRESENT ILLNESS This is a 59 yo female who presented secondary to chest pain. Patient reports sensation of needles sticking her in the left chest yesterday. No dizziness, diaphoresis, palpitations, or nausea/vomiting. Is ESRD on HD. Is typically MWF. Went to HD yesterday, but she had loose stools so she did not get dialysed. Is a poor historian and is not very forthcoming with information. PAST MEDICAL HISTORY Past Medical History Cardiovascular: CHF, HTN, Hyperlipidemia Pulmonary: Asthma, COPD CENTRAL NERVOUS SYSTEM: Periperal neuropathy GI: GERD Heme/Onc: Anemia NOS Psych: Bipolar, Depression Musculoskeletal: Osteoarthritis Rheumatologic: Fibromyalgia Renal/: Chronic renal failure (ESRD on HD) Endocrine: Diabetes, Hypothyroidism PAST SURGICAL HISTORY Past Surgical History Hysterectomy, Other (bilateral BKA ) FAMILY HISTORY Family History: Heart Disease, High Cholestrol, Hypertension SOCIAL HISTORY Social History ALCOHOL: none Drugs: None Lives: Alone CURRENT MEDICATIONS CURRENT MEDICATIONS Current Medications Medications (Trade) Dose Ordered Sig/Clarence Route PRN Reason Start Time Stop Time Status Last Admin Dose Admin Aspirin (Molly Aspirin) 325 mg 1X ONCE PO 12/18/19 21:30 12/18/19 21:31 DC 12/18/19 21:30 Nitroglycerin (Nitrostat) 0.4 mg PRN Q5MIN PRN SL CP RATING > 1/10 12/18/19 21:15 12/19/19 21:14 12/18/19 21:42 Morphine Sulfate (Morphine Sulfate) 4 mg 1X ONCE IM 12/18/19 23:30 12/18/19 23:31 DC 12/18/19 22:55 Oxycodone/ Acetaminophen (Percocet 5/325) 1 tab PRN Q6HRS PRN PO PAIN 12/19/19 08:00 12/19/19 08:36 ALLERGIES ALLERGIES: Coded Allergies: No Known Drug Allergies (Unverified , 02/27/19) ROS Review of System 14 point ROS conducted with pertinent positives noted above in HPI PHYSICAL EXAM General: Alert, Oriented X3, No acute distress HEENT: Atraumatic, Mucous membr. moist/pink Lungs: Other (diminished bases) Heart: Regular rate Abdomen: Soft, No tenderness Extremities: No edema, Other (bilateral BKA) Neuro: Normal speech, Sensation intact Psych/Mental Status: Mental status NL, Other (appears irritated ) MUSCULOSKELETAL: Osteoarthritic changes both hands VITALS/I&O VITALS/I&O: Vital Signs Date Time Temp Pulse Resp B/P (MAP) Pulse Ox O2 Delivery O2 Flow Rate FiO2 12/19/19 08:36 97 Room Air 12/19/19 07:08 98.4 66 22 153/67 (95) 98.4 12/19/19 06:38 2.0 LABS Lab: Laboratory Tests Test 12/18/19 23:20 12/19/19 05:04 White Blood Count 5.2 x10^3/uL (4.0-11.0) Red Blood Count 3.32 x10^6/uL (3.50-5.40) L Hemoglobin 10.4 g/dL (12.0-15.5) L Hematocrit 31.3 % (36.0-47.0) L Mean Corpuscular Volume 94 fL (79-100) Mean Corpuscular Hemoglobin 31 pg (25-35) Mean Corpuscular Hemoglobin Concent 33 g/dL (31-37) Red Cell Distribution Width 17.9 % (11.5-14.5) H Platelet Count 187 x10^3/uL (140-400) Neutrophils (%) (Auto) 70 % (31-73) Lymphocytes (%) (Auto) 20 % (24-48) L Monocytes (%) (Auto) 8 % (0-9) Eosinophils (%) (Auto) 1 % (0-3) Basophils (%) (Auto) 1 % (0-3) Neutrophils # (Auto) 3.6 x10^3/uL (1.8-7.7) Lymphocytes # (Auto) 1.0 x10^3/uL (1.0-4.8) Monocytes # (Auto) 0.4 x10^3/uL (0.0-1.1) Eosinophils # (Auto) 0.0 x10^3/uL (0.0-0.7) Basophils # (Auto) 0.1 x10^3/uL (0.0-0.2) Prothrombin Time 14.6 SEC (11.7-14.0) H Prothrombin Time INR 1.2 (0.8-1.1) H Sodium Level 139 mmol/L (136-145) Potassium Level 4.9 mmol/L (3.5-5.1) Chloride Level 102 mmol/L (98-107) Carbon Dioxide Level 27 mmol/L (21-32) Anion Gap 10 (6-14) Blood Urea Nitrogen 31 mg/dL (7-20) H Creatinine 4.8 mg/dL (0.6-1.0) H Estimated GFR (Cockcroft-Gault) 11.3 BUN/Creatinine Ratio 6 (6-20) Glucose Level 57 mg/dL (70-99) L Calcium Level 9.5 mg/dL (8.5-10.1) Magnesium Level 2.5 mg/dL (1.8-2.4) H Total Bilirubin 0.4 mg/dL (0.2-1.0) Aspartate Amino Transferase (AST) 31 U/L (15-37) Alanine Aminotransferase (ALT) 37 U/L (14-59) Alkaline Phosphatase 87 U/L (46-116) Troponin I Quantitative 0.123 ng/mL (0.000-0.055) 0.140 ng/mL (0.000-0.055) LD-Bqu-G-Type Natriuretic Peptide > 43180 pg/mL (0-124) H Total Protein 6.3 g/dL (6.4-8.2) L Albumin 3.5 g/dL (3.4-5.0) Albumin/Globulin Ratio 1.3 (1.0-1.7) Thyroid Stimulating Hormone (TSH) 2.375 uIU/mL (0.358-3.74) Laboratory Tests 12/18/19 23:20 Laboratory Tests 12/18/19 23:20 ECHOCARDIOGRAM ECHOCARDIOGRAM <Conclusion> The left ventricle is normal size. The left ventricular systolic function is normal and the ejection fraction is within normal range. The Ejection Fraction is 50-55%. There is moderate concentric left ventricular hypertrophy. Doppler and Color Flow revealed no significant aortic regurgitation. There is no significant aortic valvular stenosis. Doppler and Color-flow revealed trace to mild mitral regurgitation. Doppler and Color Flow revealed trace to mild tricuspid regurgitation. The PA pressure was estimated at 25 mmHg. DATE: 03/24/19 1334 STRESS TEST STRESS TEST Conclusion 1. Regadenoson cardioisotope stress test did not show any evidence of ischemia or infarct. 2. Normal left ventricular systolic function with ejection fraction calculated at 51%. 3. Low risk for cardiac events. DATE: 03/26/18 1227 ASSESSMENT/PLAN ASSESSMENT/PLAN 1. Atypical CP; MPI 03/13 without evidence of ischemic 2. Mild troponin elevation; highest 0.14 with h/o chronic troponin elevation. Most probably type II, demand ischemia 3. Acute on chronic diastolic CHF; Echo 03/14 with preserved LV systolic function. missed HD yesterday 4. ESRD on HD; as per nephrology 5. Accelerated hypertensive; now controlled 6. Hyperlipidemia; statin. LDL 47 7. Diabetes, II; as per IM 8. Hypothyroidism; levothyroxine 9. PAD s/p bilateral BKA 10. Noncompliance Recommendations Trend troponin Resume secondary prevention measures. ASA/Plavix, statin, continue BP regimen Fluid off loading per HD Echo to reassess LV systolic function, presence of WMA Will consider for outpt MPI RILEY WHITE MD 12/19/191933: CARDIAC CONSULT ASSESSMENT/PLAN ASSESSMENT/PLAN Patient seen and examined. Agree with [employer]'s assessment and plan. CP with atypical features. Slight trop elevation prob demand ischemia Continue HD for mild ac on chr diast HF Check 2D echo to assess LVF and r/o WMA Plan ischemic eval as outpatient BP better controlled PAD stable Thank you for your consultation MORAIMA BERRY APRN Dec 19, 2019 15:00 RILEY WHITE MD Dec 19, 2019 19:34
[2019-12-19] MEDS: CARVEDILOL 12.5 MG TABLET. PO SCH (17:22)
[2019-12-19] MEDS ORDERED: cloNIDine TTS-2 1 PATCH PATCH TD SCH (19:00)
[2019-12-19] MEDS ORDERED: ATORVASTATIN CALCIUM 40 MG TABLET. PO SCH (21:00)
[2019-12-19 22:39] VITALS: BP 158/58
[2019-12-19] MEDS: hydrALAZINE 25 MG TABLET PO SCH (22:41)
[2019-12-20 02:09] VITALS: BP 147/62
[2019-12-20] MEDS ORDERED: LEVOTHYROXINE 50 MCG TABLET PO SCH (06:00)
[2019-12-20] MEDS: oxyCODONE/APAP 5/325 1 TAB TABLET PO PRN ×2 (06:04→11:35)
[2019-12-20 07:00] VITALS: BP 155/65
[2019-12-20] MEDS ORDERED: IV NORMAL SALINE 1000ML BAG 1,000 ML IV PRN ×2 (07:26)
[2019-12-20] MEDS ORDERED: DIALYSIS PATIENT. MC PRN ×2 (07:30)
--- NOTE | 2019-12-20 07:35 | NUR ---
The patient, OTTONIEL SMITH, 59 y/o, F admitted by SANGEETHA MUELLER MD, was given written information regarding hospital policies, unit procedures and contact persons. Valuables were checked and DOCUMENTED IN EMR LCRN .
[2019-12-20] MEDS ORDERED: ASPIRIN ENTERIC COATED 81 MG TABLET.DR. PO SCH (08:00)
[2019-12-20] MEDS ORDERED: CLOPIDOGREL BISULFATE 75 MG TABLET PO SCH (08:00)
[2019-12-20] MEDS: CARVEDILOL 12.5 MG TABLET. PO SCH ×2 (08:00→17:07)
--- NOTE | 2019-12-20 08:15 | NUR ---
Dialysis department called this RN for report and scheduled transportation to take pt to dialysis. This RN in room to inform pt. Pt refuses to go to dialysis before eating. Early breakfast tray called in. Food at bedside. Dialysis has moved her time for the afternoon. Pt is angry and tosses her coffee on the ground. She requests to go to dialysis in the morning however they are unable to as they are running patients now. Pt informed dialysis will be done in the afternoon. She states "get out of my room" and "tell nobody to come in here, I ain't going no where". Will continue to monitor and encourage pt to get dialysis treatment.
[2019-12-20] MEDS ORDERED: amLODIPine BESYLATE 5 MG TABLET PO SCH (09:00)
[2019-12-20] MEDS: hydrALAZINE 25 MG TABLET PO SCH ×2 (09:00→15:17)
[2019-12-20] MEDS ORDERED: LISINOPRIL 20 MG TABLET PO SCH (09:00)
[2019-12-20 10:00] VITALS: BP 166/74
[2019-12-20] MEDS ORDERED: ALBUTEROL SULFATE 2.5 MG/3 ML NEBU. INH PRN (11:30)
[2019-12-20] MEDS ORDERED: ONDANSETRON ODT 4 MG TAB.RAPDIS. PO PRN (11:30)
[2019-12-20] MEDS ORDERED: guaiFENesin DM 200MG/20MG 10 ML SYRUP PO PRN (11:30)
[2019-12-20] MEDS ORDERED: oxyCODONE/APAP 10/325 1 TAB TABLET PO PRN (11:30)
[2019-12-20] MEDS ORDERED: PROCHLORPERAZINE 5 MG TABLET. PO PRN (11:30)
[2019-12-20] MEDS ORDERED: ACETAMINOPHEN 325 MG TABLET. PO PRN (11:45)
[2019-12-20] MEDS ORDERED: FOLIC/VIT B COMP W-C (RENAL) TABLET. PO SCH (12:00)
[2019-12-20] MEDS ORDERED: PANTOPRAZOLE 40 MG TABLET.DR. PO SCH (12:00)
[2019-12-20] MEDS ORDERED: SERTRALINE 50 MG TABLET. PO SCH (12:00)
[2019-12-20] MEDS ORDERED: NON FORMULARY ITEM (Insulin Lispro (Humalog) 0 UNITS) SQ SCH (12:00)
[2019-12-20] MEDS ORDERED: LACTOBACILLUS RHAMNOSUS GG 1 CAPSULE. PO SCH (12:00)
[2019-12-20] MEDS ORDERED: buPROPion XL 150 MG TAB.ER.24H. PO SCH (12:00)
--- NOTE | 2019-12-20 13:09 | PDOC1 ---
History and Physical Date of Admission Date of Admission 12/20/2019 Identification/Chief Complaint Chief Complaint My chest hurts Source Source: Chart review, Patient History of Present Illness History of Present Illness Patient is a unfortunate 59-year-old female with multiple morbidities which includes end-stage renal disease, CHF, COPD, diabetes who presents with chest discomfort that she describes as [id number]. The patient has had similar presentation in the near past and has had at least 3 admissions in the last month. Very well-known to our service on her last admission the patient was [facility] where she is currently distant residing. The patient relates to me that she is being "mistreated" and that "crazy things happen there". Patient at the present time is in no acute distress but certainly asking for narcotic medications in the IV form despite being comfortable laying in bed. Patient is a double amputee and is very much bedbound. Pain is described as sharp and nonradiating and there is no associated symptoms. There are no alleviating or exacerbating factors at this time. Denies fevers, chest pain, nausea vomiting, diarrhea, or bloody stools. Patient seen and examined bedside this morning patient describes abdominal pains. Patient also describes what seems to be her chronic peripheral neuropathy pains near her prior incision sites from her bilateral AKA stumps, we were asked to admit the patient for cardiac evaluation. At the present time our decorating consultant has requested an echocardiogram and they seem to be leaning towards outpatient ischemic work-up which does not seem to be an issue at the present time. Plan of care explained in detail to the patient all concerns addressed to the best of my abilities Past Medical History Cardiovascular: CHF, HTN, Hyperlipidemia Pulmonary: Asthma, COPD CENTRAL NERVOUS SYSTEM: Periperal neuropathy GI: GERD Heme/Onc: Anemia NOS Hepatobiliary: No pertinent hx Psych: Bipolar, Depression Rheumatologic: Fibromyalgia Infectious disease: No pertinent hx Renal/: Chronic renal failure Endocrine: Diabetes, Hypothyroidism, Hyperparathyroidism Past Surgical History Past Surgical History: Hysterectomy, Other Family History Family History: Heart Disease, High Cholestrol, Hypertension Social History Smoke: No ALCOHOL: none Drugs: None Current Medications Current Medications Current Medications Medications (Trade) Dose Ordered Sig/Clarence Start Time Stop Time Status Last Admin Dose Admin Acetaminophen (Tylenol) 650 mg PRN Q6HRS PRN 12/20/19 11:45 Albuterol Sulfate (Ventolin Neb Soln) 8.5 mg PRN BID PRN 12/20/19 11:30 Amlodipine Besylate (Norvasc) 10 mg DAILY 12/20/19 09:00 Amylase/Lipase/ Protease (Zenpep 5,000) 1 cap TIDWMEALS 12/20/19 12:00 Aspirin (Molly Aspirin) 325 mg 1X ONCE 12/18/19 21:30 12/18/19 21:31 DC 12/18/19 21:30 325 MG Aspirin (Ecotrin) 81 mg DAILYWBKFT 12/20/19 08:00 Atorvastatin Calcium (Lipitor) 40 mg HS 12/19/19 21:00 12/19/19 22:40 40 MG Bupropion HCl (Wellbutrin Xl) 300 mg DAILY 12/20/19 12:00 Carvedilol (Coreg) 12.5 mg BIDWMEALS 12/19/19 17:00 12/19/19 17:22 12.5 MG Clonidine HCl (Catapres Tts-2) 1 patch WEEKLY 12/19/19 19:00 12/19/19 22:41 1 PATCH Clopidogrel Bisulfate (Plavix) 75 mg DAILYWBKFT 12/20/19 08:00 Famotidine (Pepcid) 20 mg QHS 12/20/19 21:00 Guaifenesin (Robitussin Dm) 10 ml PRN Q6HRS PRN 12/20/19 11:30 Hydralazine HCl (Apresoline) 25 mg TID 12/19/19 21:00 12/19/19 22:41 25 MG Info (PHARMACY MONITORING -- do not chart) 1 each PRN DAILY PRN 12/20/19 07:30 Ketorolac Tromethamine (Toradol 15mg Vial) 15 mg 1X ONCE 12/19/19 06:00 12/19/19 06:01 DC Lactobacillus Rhamnosus (Culturelle) 1 cap BID 12/20/19 12:00 Latanoprost (Xalatan) 1 drop HS 12/20/19 21:00 Levothyroxine Sodium (Synthroid) 50 mcg DAILY06 12/20/19 06:00 12/20/19 06:04 50 MCG Lisinopril (Prinivil) 20 mg DAILY 12/20/19 09:00 Morphine Sulfate (Morphine Sulfate) 4 mg 1X ONCE 12/18/19 23:30 12/18/19 23:31 DC 12/18/19 22:55 4 MG Nitroglycerin (Nitrostat) 0.4 mg PRN Q5MIN PRN 12/18/19 21:15 12/19/19 21:14 DC 12/18/19 21:42 0.4 MG Non-Formulary Medication (Insulin Lispro (Humalog)) TIDWMEALS 12/20/19 12:00 12/20/19 12:22 DC Ondansetron HCl (Zofran Odt) 4 mg PRN Q6HRS PRN 12/20/19 11:30 Oxycodone/ Acetaminophen (Percocet 10/325) 1 tab PRN Q4HRS PRN 12/20/19 11:30 Oxycodone/ Acetaminophen (Percocet 5/325) 1 tab PRN Q6HRS PRN 12/19/19 08:00 12/20/19 11:35 1 TAB Pantoprazole Sodium (Protonix) 40 mg DAILYAC 12/20/19 12:00 Prochlorperazine Maleate (Compazine) 5 mg PRN TID PRN 12/20/19 11:30 Sertraline HCl (Zoloft) 50 mg DAILY 12/20/19 12:00 Sodium Chloride 1,000 ml @ 400 mls/hr Q2H30M PRN 12/20/19 07:26 12/20/19 19:25 Vitamin B Complex/ Vitamin C (Pinky-Shreya) 1 tab DAILY 12/20/19 12:00 Allergies Allergies Allergies Coded Allergies Type Severity Reaction Last Updated Verified No Known Drug Allergies 02/27/19 No ROS Review of System CONSTITUTIONAL: No fever or chills EYES: No recent changes SKIN: No rash or itching CARDIOVASCULAR: No chest pain, syncope, palpitations, or edema RESPIRATORY: No SOB or cough GASTROINTESTINAL: No nausea, vomiting or abdominal pain NEUROLOGICAL: No headaches or weakness ENDOCRINE: No cold or heat intolerance GENITOURINARY: No urgency or frequency of urination MUSCULOSKELETAL: No back pain or joint pain LYMPHATICS: No enlarged lymph nodes PSYCHIATRIC: No anxiety or depression Physical Exam Physical Exam General: Alert, Oriented X3, No acute distress HEENT: Atraumatic, Mucous membr. moist/pink Lungs: Other (diminished bases) Heart: Regular rate Abdomen: Soft, No tenderness Extremities: No edema, Other (bilateral BKA) Neuro: Normal speech, Sensation intact Psych/Mental Status: Mental status NL, Other (appears irritated ) MUSCULOSKELETAL: Osteoarthritic changes both hands Vitals Vitals Vital Signs Date Time Temp Pulse Resp B/P (MAP) Pulse Ox O2 Delivery O2 Flow Rate FiO2 12/20/19 11:35 17 94 Nasal Cannula 2.0 12/20/19 10:00 97.0 68 166/74 (104) 97.0 Labs Labs Laboratory Tests Test 12/18/19 23:20 12/19/19 05:04 12/19/19 16:15 12/20/19 07:31 White Blood Count 5.2 x10^3/uL (4.0-11.0) Red Blood Count 3.32 x10^6/uL (3.50-5.40) Hemoglobin 10.4 g/dL (12.0-15.5) Hematocrit 31.3 % (36.0-47.0) Mean Corpuscular Volume 94 fL (79-100) Mean Corpuscular Hemoglobin 31 pg (25-35) Mean Corpuscular Hemoglobin Concent 33 g/dL (31-37) Red Cell Distribution Width 17.9 % (11.5-14.5) Platelet Count 187 x10^3/uL (140-400) Neutrophils (%) (Auto) 70 % (31-73) Lymphocytes (%) (Auto) 20 % (24-48) Monocytes (%) (Auto) 8 % (0-9) Eosinophils (%) (Auto) 1 % (0-3) Basophils (%) (Auto) 1 % (0-3) Neutrophils # (Auto) 3.6 x10^3/uL (1.8-7.7) Lymphocytes # (Auto) 1.0 x10^3/uL (1.0-4.8) Monocytes # (Auto) 0.4 x10^3/uL (0.0-1.1) Eosinophils # (Auto) 0.0 x10^3/uL (0.0-0.7) Basophils # (Auto) 0.1 x10^3/uL (0.0-0.2) Prothrombin Time 14.6 SEC (11.7-14.0) Prothromb Time International Ratio 1.2 (0.8-1.1) Sodium Level 139 mmol/L (136-145) Potassium Level 4.9 mmol/L (3.5-5.1) Chloride Level 102 mmol/L (98-107) Carbon Dioxide Level 27 mmol/L (21-32) Anion Gap 10 (6-14) Blood Urea Nitrogen 31 mg/dL (7-20) Creatinine 4.8 mg/dL (0.6-1.0) Estimated GFR (Cockcroft-Gault) 11.3 BUN/Creatinine Ratio 6 (6-20) Glucose Level 57 mg/dL (70-99) Calcium Level 9.5 mg/dL (8.5-10.1) Magnesium Level 2.5 mg/dL (1.8-2.4) Total Bilirubin 0.4 mg/dL (0.2-1.0) Aspartate Amino Transf (AST/SGOT) 31 U/L (15-37) Alanine Aminotransferase (ALT/SGPT) 37 U/L (14-59) Alkaline Phosphatase 87 U/L (46-116) Troponin I Quantitative 0.123 ng/mL (0.000-0.055) 0.140 ng/mL (0.000-0.055) 0.130 ng/mL (0.000-0.055) OC-Gzb-P-Type Natriuretic Peptide > 14550 pg/mL (0-124) Total Protein 6.3 g/dL (6.4-8.2) Albumin 3.5 g/dL (3.4-5.0) Albumin/Globulin Ratio 1.3 (1.0-1.7) Thyroid Stimulating Hormone (TSH) 2.375 uIU/mL (0.358-3.74) Glucose (Fingerstick) 91 mg/dL (70-99) Test 12/20/19 12:04 Glucose (Fingerstick) 124 mg/dL (70-99) Laboratory Tests Test 12/19/19 16:15 12/20/19 07:31 12/20/19 12:04 Troponin I Quantitative 0.130 ng/mL (0.000-0.055) Glucose (Fingerstick) 91 mg/dL (70-99) 124 mg/dL (70-99) VTE Prophylaxis Ordered VTE Prophylaxis Devices: Yes VTE Pharmacological Prophylaxi: Yes Assessment/Plan Assessment/Plan Atypical chest pain Normocytic anemia due to ESRD Troponinemia Volume overload History of atrial fibrillation CHF COPD Depression Diabetes mellitus type 2 GERD Dyslipidemia Peripheral neuropathy ESRD on HD MWF Bedridden status due to bilateral lower extremity amputation Plan Follow recommendations from child development consultant Most likely will be able to discharge later in the day since the hyper troponin anemia does not seem to be of clinical significance Follow results of echocardiogram Resume home medication Avoid IV narcotics Further recommendations based on the clinical course Case management for discharge planning Justifications for Admission Other Justification JASPAL RAMOS MD Dec 20, 2019 13:09
--- NOTE | 2019-12-20 13:41 | NUR ---
SS following for discharge planning. SS reviewed pt chart and discussed with pt RN. Pt is LTC resident from [facility], ; fax [phone]. Per facility pt does not need COVID test prior to returning. Pt has outpatient dialysis at [facility], ; fax [phone], Monday, Monday, and Monday. SS phoned and faxed clinical updates to [facility]. SS will continue to follow for discharge planning.
--- NOTE | 2019-12-20 13:55 | PDOC2 ---
CONSULT Date of Consult Date of Consult DATE: 12/20/19 TIME: 13:49 Reason for Consult Reason for Consult: ESRD Source Source: Chart review, Patient History of Present Illness Reason for Visit: Patient is a 59-year-old AA female with multiple morbidities presents with chest discomfort that she describes as [id number]. She has had mutiple ospitalizations for similar complaints . She is currently in [facility]term facility and reported to Primary that she is "mistreated" and that "crazy things happen there". . Denies fevers, chest pain, nausea vomiting, diarrhea, or bloody stools.She missed Dialysis on Mon, has a Hx of chronic non compliance Past Medical History Cardiovascular: CHF, HTN, Hyperlipidemia Pulmonary: Asthma, COPD CENTRAL NERVOUS SYSTEM: Periperal neuropathy GI: GERD Heme/Onc: Anemia NOS Hepatobiliary: No pertinent hx Psych: Bipolar, Depression Musculoskeletal: Osteoarthritis Rheumatologic: Fibromyalgia Infectious disease: No pertinent hx Renal/: Chronic renal failure Endocrine: Diabetes, Hypothyroidism, Hyperparathyroidism Past Surgical History Past Surgical History: Hysterectomy, Other Family History Family History: Heart Disease, High Cholestrol, Hypertension Social History No ALCOHOL: none Drugs: None Lives: Alone Current Medications Current Medications Current Medications Aspirin (Molly Aspirin) 325 mg 1X ONCE PO Last administered on 12/18/19at 21:30; Start 12/18/19 at 21:30; Stop 12/18/19 at 21:31; Status DC Nitroglycerin (Nitrostat) 0.4 mg PRN Q5MIN PRN SL CP RATING > 1/10 Last administered on 12/18/19at 21:42; Start 12/18/19 at 21:15; Stop 12/19/19 at 21:14; Status DC Morphine Sulfate (Morphine Sulfate) 4 mg PRN Q15MIN PRN IV/SQ PAIN GREATER THAN 3/10; Start 12/18/19 at 21:15; Stop 12/19/19 at 21:14; Status Cancel Morphine Sulfate (Morphine Sulfate) 4 mg 1X ONCE IM Last administered on 12/18/19at 22:55; Start 12/18/19 at 23:30; Stop 12/18/19 at 23:31; Status DC Acetaminophen (Tylenol) 650 mg 1X ONCE PO ; Start 12/19/19 at 04:30; Stop 12/19/19 at 04:31; Status DC Ketorolac Tromethamine (Toradol 15mg Vial) 15 mg 1X ONCE IM ; Start 12/19/19 at 06:00; Stop 12/19/19 at 06:01; Status DC Oxycodone/ Acetaminophen (Percocet 5/325) 1 tab PRN Q6HRS PRN PO MODERATE PAIN Last administered on 12/20/19at 11:35; Start 12/19/19 at 08:00 Amlodipine Besylate (Norvasc) 10 mg DAILY PO ; Start 12/20/19 at 09:00 Atorvastatin Calcium (Lipitor) 40 mg HS PO Last administered on 12/19/19at 22:40; Start 12/19/19 at 21:00 Carvedilol (Coreg) 12.5 mg BIDWMEALS PO Last administered on 12/19/19at 17:22; Start 12/19/19 at 17:00 Clonidine HCl (Catapres Tts-2) 1 patch WEEKLY TD Last administered on 12/19/19at 22:41; Start 12/19/19 at 19:00 Clopidogrel Bisulfate (Plavix) 75 mg DAILYWBKFT PO ; Start 12/20/19 at 08:00 Hydralazine HCl (Apresoline) 25 mg TID PO Last administered on 12/19/19at 22:41; Start 12/19/19 at 21:00 Levothyroxine Sodium (Synthroid) 50 mcg DAILY06 PO Last administered on 12/20/19at 06:04; Start 12/20/19 at 06:00 Lisinopril (Prinivil) 20 mg DAILY PO ; Start 12/20/19 at 09:00 Aspirin (Ecotrin) 81 mg DAILYWBKFT PO ; Start 12/20/19 at 08:00 Sodium Chloride 1,000 ml @ 1,000 mls/hr Q1H PRN IV hypotension; Start 12/20/19 at 07:26; Stop 12/20/19 at 13:25; Status DC Sodium Chloride 1,000 ml @ 400 mls/hr Q2H30M PRN IV PATENCY; Start 12/20/19 at 07:26; Stop 12/20/19 at 19:25 Info (PHARMACY MONITORING -- do not chart) 1 each PRN DAILY PRN MC SEE COMMENTS; Start 12/20/19 at 07:30 Info (PHARMACY MONITORING -- do not chart) 1 each PRN DAILY PRN MC SEE COMMENTS; Start 12/20/19 at 07:30 Albuterol Sulfate (Ventolin Neb Soln) 8.5 mg PRN BID PRN INH SHORTNESS OF BREATH; Start 12/20/19 at 11:30 Vitamin B Complex/ Vitamin C (Pinky-Shreya) 1 tab DAILY PO ; Start 12/20/19 at 12:00 Guaifenesin (Robitussin Dm) 10 ml PRN Q6HRS PRN PO COUGH; Start 12/20/19 at 11:30 Lactobacillus Rhamnosus (Culturelle) 1 cap BID PO ; Start 12/20/19 at 12:00 Latanoprost (Xalatan) 1 drop HS OU ; Start 12/20/19 at 21:00 Ondansetron HCl (Zofran Odt) 4 mg PRN Q6HRS PRN PO NAUSEA/VOMITING 1ST CHOICE; Start 12/20/19 at 11:30 Oxycodone/ Acetaminophen (Percocet 10/325) 1 tab PRN Q4HRS PRN PO SEVERE PAIN; Start 12/20/19 at 11:30 Prochlorperazine Maleate (Compazine) 5 mg PRN TID PRN PO NAUSEA; Start 12/20/19 at 11:30 Sertraline HCl (Zoloft) 50 mg DAILY PO ; Start 12/20/19 at 12:00 Acetaminophen (Tylenol) 650 mg PRN Q6HRS PRN PO MILD PAIN; Start 12/20/19 at 11:45 Bupropion HCl (Wellbutrin Xl) 300 mg DAILY PO ; Start 12/20/19 at 12:00 Non-Formulary Medication (Insulin Lispro (Humalog)) TIDWMEALS SQ ; Start 12/20/19 at 12:00; Stop 12/20/19 at 12:22; Status DC Amylase/Lipase/ Protease (Zenpep 5,000) 1 cap TIDWMEALS PO ; Start 12/20/19 at 12:00 Famotidine (Pepcid) 20 mg QHS PO ; Start 12/20/19 at 21:00 Pantoprazole Sodium (Protonix) 40 mg DAILYAC PO ; Start 12/20/19 at 12:00 Active Scripts Active [place] 5-325 Tablet (Acetaminophen/Hydrocodone Bitart) 1 Each Tablet 0.5-1 Tab PO PRN Q6HRS PRN Percocet 10-325 Mg Tablet (Oxycodone/Acetaminophen) 1 Each Tablet 1 Tab PO PRN Q4HRS PRN Guaifenesin Dm Syrup (Guaifenesin/Dextromethorphan) 5 Ml Syrup 10 Ml PO PRN Q6HRS PRN 10 Days Carvedilol (Carvedilol) 6.25 Mg Tablet 12.5 Mg PO BIDWMEALS Hydralazine Hcl 25 Mg Tablet 25 Mg PO TID Culturelle (Lactobacillus Rhamnosus Gg) 1 Each Cap.sprink 1 Cap PO BID 30 Days Ondansetron Odt (Ondansetron) 4 Mg Tab.rapdis 4 Mg PO PRN Q6HRS PRN 28 Days Clopidogrel (Clopidogrel Bisulfate) 75 Mg Tablet 75 Mg PO DAILYWBKFT 30 Days Pinky-Shreya Tablet (Folic Acid/Vitamin B Comp W-C) 0.8 Mg Tablet 1 Tab PO DAILY Tylenol (Acetaminophen) 325 Mg Capsule 650 Mg PO Q6-8HRS PRN Zantac (Ranitidine Hcl) 300 Mg Tablet 1 Tab PO QHS Compazine (Prochlorperazine Maleate) 5 Mg Tablet 5 Mg PO PRN TID PRN 10 Days [Pantoprazole] 40 MG Tablet.dr 40 Mg PO DAILYAC 30 Days Reported Bupropion Xl (Bupropion Hcl) 300 Mg Tab.er.24h 1 Tab PO DAILYWBKFT Zoloft (Sertraline Hcl) 50 Mg Tablet 50 Mg PO DAILY Lisinopril 20 Mg Tablet 20 Mg PO DAILY [place] [address] 6,000 Units Capsule (Lipase/Protease/Amylase) 1 Each Capsule.dr 1 Tab PO TID Proair Hfa (Albuterol Sulfate) 8.5 Gm Hfa.aer.ad 2 Puff INH BID PRN Levothyroxine Sodium 50 Mcg Tablet 1 Tab PO DAILY Clonidine Tts-2 (Clonidine) 1 Each Patch.tdwk 1 Patch TD WEEKLY Amlodipine Besylate 5 Mg Tablet 10 Mg PO DAILY Atorvastatin Calcium 40 Mg Tablet 40 Mg PO HS Latanoprost 2.5 Ml Drops 1 Drop EACHEYE HS Allergies Allergies: Coded Allergies: No Known Drug Allergies (Unverified , 02/27/19) ROS Review of System Per HPI, rest ROS is negative Physical Exam Physical Exam eneral: NAD HEENT: PERRLA, OM moist Neck Supple Lungs: dec BS , Non labored Heart: S1S2, RRR, n Abdomen: Normal bowel sounds, Soft, No tenderness, No Calvillo Extremities: Bila BKA , s/p amputation Rt middle finger , AVF + Skin: No rash Neuro- Grossly Normal Vital Signs Vital Signs Date Time Temp Pulse Resp B/P (MAP) Pulse Ox O2 Delivery O2 Flow Rate FiO2 12/20/19 11:35 17 94 Nasal Cannula 2.0 12/20/19 10:00 97.0 68 166/74 (104) 97.0 Assessment & Plan ESRD - On HD MWF Seen on Dialysis, Tolerating well, continue as ordered, Eddie Daniels Atypical CP HTN Severe peripheral arterial disease - Bilateral BKA Diabetes w peripheral neuropathy Anemia - currently no indication for ARLIN ARLIN and IV Fe as OP on dialysis Congestive heart failure with systolic and diastolic dysfunction- compensated Labs Labs Laboratory Tests Test 12/18/19 23:20 12/19/19 05:04 12/19/19 16:15 12/20/19 07:31 White Blood Count 5.2 x10^3/uL (4.0-11.0) Red Blood Count 3.32 x10^6/uL (3.50-5.40) Hemoglobin 10.4 g/dL (12.0-15.5) Hematocrit 31.3 % (36.0-47.0) Mean Corpuscular Volume 94 fL (79-100) Mean Corpuscular Hemoglobin 31 pg (25-35) Mean Corpuscular Hemoglobin Concent 33 g/dL (31-37) Red Cell Distribution Width 17.9 % (11.5-14.5) Platelet Count 187 x10^3/uL (140-400) Neutrophils (%) (Auto) 70 % (31-73) Lymphocytes (%) (Auto) 20 % (24-48) Monocytes (%) (Auto) 8 % (0-9) Eosinophils (%) (Auto) 1 % (0-3) Basophils (%) (Auto) 1 % (0-3) Neutrophils # (Auto) 3.6 x10^3/uL (1.8-7.7) Lymphocytes # (Auto) 1.0 x10^3/uL (1.0-4.8) Monocytes # (Auto) 0.4 x10^3/uL (0.0-1.1) Eosinophils # (Auto) 0.0 x10^3/uL (0.0-0.7) Basophils # (Auto) 0.1 x10^3/uL (0.0-0.2) Prothrombin Time 14.6 SEC (11.7-14.0) Prothromb Time International Ratio 1.2 (0.8-1.1) Sodium Level 139 mmol/L (136-145) Potassium Level 4.9 mmol/L (3.5-5.1) Chloride Level 102 mmol/L (98-107) Carbon Dioxide Level 27 mmol/L (21-32) Anion Gap 10 (6-14) Blood Urea Nitrogen 31 mg/dL (7-20) Creatinine 4.8 mg/dL (0.6-1.0) Estimated GFR (Cockcroft-Gault) 11.3 BUN/Creatinine Ratio 6 (6-20) Glucose Level 57 mg/dL (70-99) Calcium Level 9.5 mg/dL (8.5-10.1) Magnesium Level 2.5 mg/dL (1.8-2.4) Total Bilirubin 0.4 mg/dL (0.2-1.0) Aspartate Amino Transf (AST/SGOT) 31 U/L (15-37) Alanine Aminotransferase (ALT/SGPT) 37 U/L (14-59) Alkaline Phosphatase 87 U/L (46-116) Troponin I Quantitative 0.123 ng/mL (0.000-0.055) 0.140 ng/mL (0.000-0.055) 0.130 ng/mL (0.000-0.055) FO-Fuh-I-Type Natriuretic Peptide > 97007 pg/mL (0-124) Total Protein 6.3 g/dL (6.4-8.2) Albumin 3.5 g/dL (3.4-5.0) Albumin/Globulin Ratio 1.3 (1.0-1.7) Thyroid Stimulating Hormone (TSH) 2.375 uIU/mL (0.358-3.74) Glucose (Fingerstick) 91 mg/dL (70-99) Test 12/20/19 12:04 Glucose (Fingerstick) 124 mg/dL (70-99) Laboratory Tests Test 12/19/19 16:15 12/20/19 07:31 12/20/19 12:04 Troponin I Quantitative 0.130 ng/mL (0.000-0.055) Glucose (Fingerstick) 91 mg/dL (70-99) 124 mg/dL (70-99) Review All relevant outside records, renal labs, imaging studies, telemetry/EKG's were reviewed. Images Images Stable cardiomegaly. Small bilateral pleural effusions are unchanged. Diffuse interstitial opacities are unchanged. There are bibasilar airspace opacities. There is no pneumothorax. Extensive vascular stents in the left upper extremity. DOMINIQUE TSE MD Dec 20, 2019 13:55
--- NOTE | 2019-12-20 14:37 | PDOC3 ---
Discharge Summary Visit Information Date of Admission: Dec 20, 2019 Date of Discharge: Dec 20, 2019 Admitting Diagnosis Comment: Atypical chest pain Normocytic anemia due to ESRD Troponinemia Volume overload History of atrial fibrillation CHF COPD Depression Diabetes mellitus type 2 GERD Dyslipidemia Peripheral neuropathy ESRD on HD MWF Bedridden status due to bilateral lower extremity amputation Final Diagnosis Atypical chest pain ACS ruled out Normocytic anemia due to ESRD Troponinemia Volume overload History of atrial fibrillation CHF COPD Depression Diabetes mellitus type 2 GERD Dyslipidemia Peripheral neuropathy ESRD on HD MWF Bedridden status due to bilateral lower extremity amputation Brief Hospital Course Allergies Allergies Coded Allergies Type Severity Reaction Last Updated Verified No Known Drug Allergies 02/27/19 No Vital Signs Vital Signs Date Time Temp Pulse Resp B/P (MAP) Pulse Ox O2 Delivery O2 Flow Rate FiO2 12/20/19 11:35 17 94 Nasal Cannula 2.0 12/20/19 10:00 97.0 68 166/74 (104) 97.0 Lab Results Laboratory Tests Test 12/18/19 23:20 12/19/19 05:04 12/19/19 16:15 12/20/19 07:31 White Blood Count 5.2 x10^3/uL (4.0-11.0) Red Blood Count 3.32 x10^6/uL (3.50-5.40) Hemoglobin 10.4 g/dL (12.0-15.5) Hematocrit 31.3 % (36.0-47.0) Mean Corpuscular Volume 94 fL (79-100) Mean Corpuscular Hemoglobin 31 pg (25-35) Mean Corpuscular Hemoglobin Concent 33 g/dL (31-37) Red Cell Distribution Width 17.9 % (11.5-14.5) Platelet Count 187 x10^3/uL (140-400) Neutrophils (%) (Auto) 70 % (31-73) Lymphocytes (%) (Auto) 20 % (24-48) Monocytes (%) (Auto) 8 % (0-9) Eosinophils (%) (Auto) 1 % (0-3) Basophils (%) (Auto) 1 % (0-3) Neutrophils # (Auto) 3.6 x10^3/uL (1.8-7.7) Lymphocytes # (Auto) 1.0 x10^3/uL (1.0-4.8) Monocytes # (Auto) 0.4 x10^3/uL (0.0-1.1) Eosinophils # (Auto) 0.0 x10^3/uL (0.0-0.7) Basophils # (Auto) 0.1 x10^3/uL (0.0-0.2) Prothrombin Time 14.6 SEC (11.7-14.0) Prothromb Time International Ratio 1.2 (0.8-1.1) Sodium Level 139 mmol/L (136-145) Potassium Level 4.9 mmol/L (3.5-5.1) Chloride Level 102 mmol/L (98-107) Carbon Dioxide Level 27 mmol/L (21-32) Anion Gap 10 (6-14) Blood Urea Nitrogen 31 mg/dL (7-20) Creatinine 4.8 mg/dL (0.6-1.0) Estimated GFR (Cockcroft-Gault) 11.3 BUN/Creatinine Ratio 6 (6-20) Glucose Level 57 mg/dL (70-99) Calcium Level 9.5 mg/dL (8.5-10.1) Magnesium Level 2.5 mg/dL (1.8-2.4) Total Bilirubin 0.4 mg/dL (0.2-1.0) Aspartate Amino Transf (AST/SGOT) 31 U/L (15-37) Alanine Aminotransferase (ALT/SGPT) 37 U/L (14-59) Alkaline Phosphatase 87 U/L (46-116) Troponin I Quantitative 0.123 ng/mL (0.000-0.055) 0.140 ng/mL (0.000-0.055) 0.130 ng/mL (0.000-0.055) MA-Mvf-X-Type Natriuretic Peptide > 68662 pg/mL (0-124) Total Protein 6.3 g/dL (6.4-8.2) Albumin 3.5 g/dL (3.4-5.0) Albumin/Globulin Ratio 1.3 (1.0-1.7) Thyroid Stimulating Hormone (TSH) 2.375 uIU/mL (0.358-3.74) Glucose (Fingerstick) 91 mg/dL (70-99) Test 12/20/19 12:04 12/20/19 12:45 Glucose (Fingerstick) 124 mg/dL (70-99) Hepatitis B Surface Antigen Nonreactive (Nonreactive) Laboratory Tests Test 12/19/19 16:15 12/20/19 07:31 12/20/19 12:04 12/20/19 12:45 Troponin I Quantitative 0.130 ng/mL (0.000-0.055) Glucose (Fingerstick) 91 mg/dL (70-99) 124 mg/dL (70-99) Hepatitis B Surface Antigen Nonreactive (Nonreactive) Brief Hospital Course History of Present Illness Patient is a unfortunate 59-year-old female with multiple morbidities which includes end-stage renal disease, CHF, COPD, diabetes who presents with chest discomfort that she describes as [id number]. The patient has had similar presentation in the near past and has had at least 3 admissions in the last month. Very well-known to our service on her last admission the patient was transferred to [facility] where she is currently distant residing. The patient relates to me that she is being "mistreated" and that "crazy things happen there". Patient at the present time is in no acute distress but certainly asking for narcotic medications in the IV form despite being comfortable laying in bed. Patient is a double amputee and is very much bedbound. Pain is described as sharp and nonradiating and there is no associated symptoms. There are no alleviating or exacerbating factors at this time. Denies fevers, chest pain, nausea vomiting, diarrhea, or bloody stools. Patient seen and examined bedside this morning patient describes abdominal pains. Patient also describes what seems to be her chronic peripheral neuropathy pains near her prior incision sites from her bilateral AKA stumps, we were asked to admit the patient for cardiac evaluation. At the present time our call center support consultant has requested an echocardiogram and they seem to be leaning towards outpatient ischemic work-up which does not seem to be an issue at the present time. Plan of care explained in detail to the patient all concerns addressed to the best of my abilities She underwent cardiological evaluation with a an echocardiogram and she also received dialysis during her brief inpatient hospital stay. If no further cardiological work-up deemed necessary the patient can be transferred back to [facility] despite her objections. The patient apparently has burned very many bridges in the area and has no other options. Discharge Information Condition at Discharge: Improved Follow Up: Weeks Disposition/Orders: D/C to Another Facility Scheduled Amlodipine Besylate (Amlodipine Besylate) 5 Mg Tablet, 10 MG PO DAILY for blood pressure, (Reported) Entered as Reported by: JENNIE SMITH on 12/05/17809 Last Action: Reviewed on 12/20/19706 by Greta Dacosta Atorvastatin Calcium (Atorvastatin Calcium) 40 Mg Tablet, 40 MG PO HS for cholesterol, (Reported) Entered as Reported by: JENNIE SMITH on 12/05/17809 Last Action: Reviewed on 12/20/19706 by Greta Dacosta Bupropion Hcl (Bupropion Xl) 300 Mg Tab.er.24h, 1 TAB PO DAILYWBKFT for antidepressant, #30 Ref 2 (Reported) Entered as Reported by: Marilyn Garibay on 09/23/19419 Last Action: Converted on 12/20/191126 by JASPAL RAMOS MD Carvedilol (Carvedilol ) 6.25 Mg Tablet, 12.5 MG PO BIDWMEALS for htn, #60 Prescribed by: PRABHAKAR MOSQUERA on 01/29/19 111 Last Action: Reviewed on 12/20/19706 by Greta Dacosta Clonidine (Clonidine Tts-2 ) 1 Each Patch.tdwk, 1 PATCH TD WEEKLY for blood pressure, (Reported) Entered as Reported by: VIKI PANG on 03/22/18 1727 Last Action: Reviewed on 12/20/19706 by Greta Dacosta Clopidogrel Bisulfate (Clopidogrel) 75 Mg Tablet, 75 MG PO DAILYWBKFT for pvd for 30 Days, #30 Prescribed by: SANGEETHA MUELLER MD on 12/26/18 1247 Last Action: Reviewed on 12/20/19706 by Greta Dacosta Folic Acid/Vitamin B Comp W-C (Pinky-Shreya Tablet) 0.8 Mg Tablet, 1 TAB PO DAILY for esrd, #30 Prescribed by: PRABHAKAR MOSQUERA on 12/10/18 1041 Last Action: Continued on 12/20/191125 by JASPAL RAMOS MD Hydralazine Hcl (Hydralazine Hcl) 25 Mg Tablet, 25 MG PO TID for htn, #10 Prescribed by: PRABHAKAR MOSQUERA on 01/29/19 1113 Last Action: Reviewed on 12/20/19706 by Greta Dacosta Lactobacillus Rhamnosus Gg (Culturelle) 1 Each Cap.sprink, 1 CAP PO BID for supplement for 30 Days, #60 Prescribed by: SANGEETHA MUELLER MD on 12/26/18 1247 Last Action: Continued on 12/20/191126 by JASPAL RAMOS MD Latanoprost (Latanoprost) 2.5 Ml Drops, 1 DROP EACHEYE HS, (Reported) Entered as Reported by: ATTILA HAMMOND on 09/24/17 1649 Last Action: Continued on 12/20/191126 by JASPAL RAMOS MD Levothyroxine Sodium (Levothyroxine Sodium) 50 Mcg Tablet, 1 TAB PO DAILY for thyroid, #30 Ref 5 (Reported) Entered as Reported by: VIKI PANG on 03/22/18 1727 Last Action: Reviewed on 12/20/19706 by Greta Dacosta Lipase/Protease/Amylase (Creon Dr 6,000 Units Capsule) 1 Each Capsule.dr, 1 TAB PO TID for digestion, (Reported) Entered as Reported by: CAROL CHAN on 04/23/18 1236 Last Action: Converted on 12/20/191126 by JASPAL RAMOS MD Lisinopril (Lisinopril) 20 Mg Tablet, 20 MG PO DAILY for FOR HYPERTENSION, Ref 0 (Reported) Entered as Reported by: LAUREN REAVES on 05/27/18748 Last Action: Reviewed on 12/20/19706 by Greta Dacosta Ranitidine Hcl (Zantac) 300 Mg Tablet, 1 TAB PO QHS for reflux, #90 Ref 3 Prescribed by: DANIELA ALMAZAN D.O. on 08/29/182155 Last Action: Converted on 12/20/191126 by JASPAL RAMOS MD Sertraline Hcl (Zoloft) 50 Mg Tablet, 50 MG PO DAILY for ANTI-DEPRESSANT, Ref 0 (Reported) Entered as Reported by: LAUREN REAVES on 05/27/18748 Last Action: Continued on 12/20/191126 by JASPAL RAMOS MD [Pantoprazole] 40 MG TABLET.DR, 40 MG PO DAILYAC for GERD for 30 Days, #30 Ref 2 Prescribed by: FELI SHAH MD on 03/07/18 1359 Last Action: Converted on 12/20/191126 by JSAPAL RAMOS MD Scheduled PRN Acetaminophen (Tylenol) 325 Mg Capsule, 650 MG PO Q6-8HRS PRN for PAIN, #20 Prescribed by: KIMBERLY DONOHUE MD on 11/14/18 2112 Last Action: Converted on 12/20/191126 by JASPAL RAMOS MD Albuterol Sulfate (Proair Hfa) 8.5 Gm Hfa.aer.ad, 2 PUFF INH BID PRN for SHORTNESS OF BREATH, (Reported) Entered as Reported by: VIKI PANG on 03/22/18 1727 Last Action: Continued on 12/20/191125 by JASPAL RAMOS MD Guaifenesin/Dextromethorphan (Guaifenesin Dm Syrup) 5 Ml Syrup, 10 ML PO PRN Q6HRS PRN for COUGH for 10 Days, #120 Prescribed by: SANGEETHA MUELLER MD on 02/12/19 1404 Last Action: Continued on 12/20/191125 by JASPAL RAMOS MD Hydrocodone/Apap 5-325 ([place] 5-325 Tablet) 1 Each Tablet, 0.5-1 TAB PO PRN Q6HRS PRN for PAIN, #10 Ref 0 Prescribed by: MARQUISE ZAMBRANO D.O. on 12/01/19 1720 Last Action: HELD on 12/20/191125 by JASPAL RAMOS MD Ondansetron (Ondansetron Odt) 4 Mg Tab.rapdis, 4 MG PO PRN Q6HRS PRN for NAUSEA/VOMITING 1ST CHOICE for 28 Days, #30 Prescribed by: SANGEETHA MUELLER MD on 12/26/18 1247 Last Action: Continued on 12/20/191126 by JASPAL RAMOS MD Oxycodone/Apap 10-325 (Percocet 10-325 Mg Tablet ) 1 Each Tablet, 1 TAB PO PRN Q4HRS PRN for PAIN , #25 Prescribed by: HARDEEP MUÑOZ on 09/28/19 1025 Last Action: Continued on 12/20/191126 by JASPAL RAMOS MD Prochlorperazine Maleate (Compazine) 5 Mg Tablet, 5 MG PO PRN TID PRN for NAUSEA for 10 Days, #30 Prescribed by: FELI SHAH MD on 08/26/18 1158 Last Action: Continued on 12/20/19 1127 by JASPAL RAMOS MD Justicifation of Admission Dx: Justifications for Admission: Justification of Admission Dx: Yes Chronic Renal Failure: Electrolyte Abnormality Angina: Symp at Rest JASPAL RAMOS MD Dec 20, 2019 14:37
--- NOTE | 2019-12-20 14:48 | PDOC ---
PROGRESS NOTES Date of Service: DATE: 12/20/19 TIME: 14:46 Subjective Subjective Seen in hemodialysis unit. Patient continues to complain of atypical chest pain Objective Objective Vital Signs Date Time Temp Pulse Resp B/P (MAP) Pulse Ox O2 Delivery O2 Flow Rate FiO2 12/20/19 11:35 17 94 Nasal Cannula 2.0 12/20/19 10:00 97.0 68 166/74 (104) 97.0 Intake and Output 12/20/19 07:00 Intake Total 500 ml Balance 500 ml Intake Oral 500 ml # Voids 2 Physical Exam Abdomen: Soft, No tenderness Heart: Regular rate Extremities: No edema, Other (bilateral BKA) General: Alert, Oriented X3, No acute distress HEENT: Atraumatic, Mucous membr. moist/pink Lungs: Other (diminished bases) MUSCULOSKELETAL: Osteoarthritic changes both hands Neuro: Normal speech, Sensation intact Psych/Mental Status: Mental status NL, Other (appears irritated ) Assessment Assessment 1. Atypical CP; most probably musculoskeletal. 2D echo to assess LV function pending. 2. Mild troponin elevation; highest 0.14 with h/o chronic troponin elevation. Most probably type II, demand ischemia. We will consider ischemic evaluation outpatient. 3. Acute on chronic diastolic CHF; secondary to missed hemodialysis. Better compensated clinically. Continue fluid removal with hemodialysis per nephrology team. 4. ESRD on HD; as per nephrology 5. Accelerated hypertensive; better controlled 6. Hyperlipidemia; statin. LDL 47 7. Diabetes, II; as per IM 8. Hypothyroidism; levothyroxine 9. PAD s/p bilateral BKA 10. Noncompliance Comment Review of Relevant I have reviewed the following items pamela (where applicable) has been applied. Labs Laboratory Tests Test 12/19/19 16:15 12/20/19 07:31 12/20/19 12:04 12/20/19 12:45 Troponin I Quantitative 0.130 ng/mL (0.000-0.055) Glucose (Fingerstick) 91 mg/dL (70-99) 124 mg/dL (70-99) Hepatitis B Surface Antigen Nonreactive (Nonreactive) Medications Current Medications Acetaminophen (Tylenol) 650 mg PRN Q6HRS PRN PO MILD PAIN; Start 12/20/19 at 11:45 Albuterol Sulfate (Ventolin Neb Soln) 8.5 mg PRN BID PRN INH SHORTNESS OF BREATH; Start 12/20/19 at 11:30 Amlodipine Besylate (Norvasc) 10 mg DAILY PO ; Start 12/20/19 at 09:00 Amylase/Lipase/ Protease (Zenpep 5,000) 1 cap TIDWMEALS PO ; Start 12/20/19 at 12:00 Aspirin (Ecotrin) 81 mg DAILYWBKFT PO ; Start 12/20/19 at 08:00 Atorvastatin Calcium (Lipitor) 40 mg HS PO Last administered on 12/19/19at 22:40; Start 12/19/19 at 21:00 Bupropion HCl (Wellbutrin Xl) 300 mg DAILY PO ; Start 12/20/19 at 12:00 Carvedilol (Coreg) 12.5 mg BIDWMEALS PO Last administered on 12/19/19at 17:22; Start 12/19/19 at 17:00 Clonidine HCl (Catapres Tts-2) 1 patch WEEKLY TD Last administered on 12/19/19at 22:41; Start 12/19/19 at 19:00 Clopidogrel Bisulfate (Plavix) 75 mg DAILYWBKFT PO ; Start 12/20/19 at 08:00 Famotidine (Pepcid) 20 mg QHS PO ; Start 12/20/19 at 21:00 Guaifenesin (Robitussin Dm) 10 ml PRN Q6HRS PRN PO COUGH; Start 12/20/19 at 11:30 Hydralazine HCl (Apresoline) 25 mg TID PO Last administered on 12/19/19at 22:41; Start 12/19/19 at 21:00 Info (PHARMACY MONITORING -- do not chart) 1 each PRN DAILY PRN MC SEE COMMENTS; Start 12/20/19 at 07:30 Info (PHARMACY MONITORING -- do not chart) 1 each PRN DAILY PRN MC SEE COMMENTS; Start 12/20/19 at 07:30 Lactobacillus Rhamnosus (Culturelle) 1 cap BID PO ; Start 12/20/19 at 12:00 Latanoprost (Xalatan) 1 drop HS OU ; Start 12/20/19 at 21:00 Levothyroxine Sodium (Synthroid) 50 mcg DAILY06 PO Last administered on 12/20/19at 06:04; Start 12/20/19 at 06:00 Lisinopril (Prinivil) 20 mg DAILY PO ; Start 12/20/19 at 09:00 Non-Formulary Medication (Insulin Lispro (Humalog)) TIDWMEALS SQ ; Start 12/20/19 at 12:00; Stop 12/20/19 at 12:22; Status DC Ondansetron HCl (Zofran Odt) 4 mg PRN Q6HRS PRN PO NAUSEA/VOMITING 1ST CHOICE; Start 12/20/19 at 11:30 Oxycodone/ Acetaminophen (Percocet 10/325) 1 tab PRN Q4HRS PRN PO SEVERE PAIN; Start 12/20/19 at 11:30 Pantoprazole Sodium (Protonix) 40 mg DAILYAC PO ; Start 12/20/19 at 12:00 Prochlorperazine Maleate (Compazine) 5 mg PRN TID PRN PO NAUSEA; Start 12/20/19 at 11:30 Sertraline HCl (Zoloft) 50 mg DAILY PO ; Start 12/20/19 at 12:00 Sodium Chloride 1,000 ml @ 400 mls/hr Q2H30M PRN IV PATENCY; Start 12/20/19 at 07:26; Stop 12/20/19 at 19:25 Sodium Chloride 1,000 ml @ 1,000 mls/hr Q1H PRN IV hypotension; Start 12/20/19 at 07:26; Stop 12/20/19 at 13:25; Status DC Vitamin B Complex/ Vitamin C (Pinky-Shreya) 1 tab DAILY PO ; Start 12/20/19 at 12:00 Vitals/I & O Vital Sign - Last 24 Hours 12/19/19 12/19/19 12/19/19 12/19/19 14:53 15:33 17:22 17:33 Pulse 72 69 74 Resp 32 23 B/P (MAP) 209/98 (135) 209/98 199/107 (137) Pulse Ox 98 89 97 O2 Delivery Room Air Room Air Nasal Cannula O2 Flow Rate 2.0 12/19/19 12/19/19 12/19/19 12/19/19 19:33 21:33 22:39 22:40 Temp 98.1 98.1 Pulse 62 66 71 Resp 14 20 20 B/P (MAP) 197/81 (119) 202/81 (121) 158/58 (91) Pulse Ox 93 98 97 93 O2 Delivery Nasal Cannula Nasal Cannula Nasal Cannula O2 Flow Rate 2.0 2.0 2.0 2.0 12/19/19 12/20/19 12/20/19 12/20/19 22:41 02:09 07:00 07:40 Temp 97.9 97.9 97.9 97.9 Pulse 71 71 68 Resp 18 18 B/P (MAP) 158/58 147/62 (90) 155/65 (95) Pulse Ox 96 93 O2 Delivery Nasal Cannula Nasal Cannula Nasal Cannula O2 Flow Rate 2.0 2.0 2.0 12/20/19 12/20/19 10:00 11:35 Temp 97.0 97.0 Pulse 68 Resp 22 17 B/P (MAP) 166/74 (104) Pulse Ox 94 94 O2 Delivery Nasal Cannula Nasal Cannula O2 Flow Rate 2.0 2.0 Intake and Output 12/19/19 12/19/19 12/20/19 15:00 23:00 07:00 Intake Total 500 ml Balance 500 ml RILEY WHITE MD Dec 20, 2019 14:48
--- NOTE | 2019-12-20 15:17 | SNU/HH DC ---
DISCHARGE ORDERS DISCHARGE INFORMATION: DISCHARGE DATE: Dec 20, 2019 FINAL DIAGNOSIS Non cardiac chest pain NSTEMI type 2 CONDITION ON DISCHARGE: Stable CODE STATUS: Code Status: Full MCC: SNF STAY <30 DAYS: Yes POST DISCHARGE ORDERS: ACTIVITY ORDERS: Activity as tolerated WEIGHT BEARING STATUS: Non weight bearing BATHING ORDERS: Shower-keep dressing dry, No Tub Bath until see Dr. CM AFTER DISCHARGE: Renal WOUND/INCISION CARE: No wound care needed CHECKS AFTER DISCHARGE: CHECKS AFTER DISCHARGE: Check blood press - daily, Check blood sugar, ac/hs, Check your Temp as needed TREATMENT/EQUIPMENT ORDERS: ADAPTIVE EQUIPMENT NEEDED: None RESPIRATORY EQUIPMENT NEEDED: Oxygen DISCHARGE MEDICATIONS: Home Meds Active Scripts Hydrocodone/Apap 5-325 ([place] 5-325 TABLET) 1 Each Tablet, 0.5-1 TAB PO PRN Q6HRS PRN for PAIN, #10 TAB 0 Refills Prov:MARQUISE ZAMBRANO DO 12/01/19 Oxycodone/Apap 10-325 (PERCOCET 10-325 MG TABLET ) 1 Each Tablet, 1 TAB PO PRN Q4HRS PRN for PAIN , #25 TAB Prov:HARDEEP MUÑOZ MD 09/28/19 Guaifenesin/Dextromethorphan (GUAIFENESIN DM SYRUP) 5 Ml Syrup, 10 ML PO PRN Q6HRS PRN for COUGH for 10 Days, #120 MISC Prov:SANGEETHA MUELLER MD 02/12/19 Carvedilol (CARVEDILOL ) 6.25 Mg Tablet, 12.5 MG PO BIDWMEALS for htn, #60 TAB Prov:PRABHAKAR MOSQUERA MD 01/29/19 Hydralazine Hcl (HYDRALAZINE HCL) 25 Mg Tablet, 25 MG PO TID for htn, #10 TAB Prov:PRABHAKAR MOSQUERA MD 01/29/19 Lactobacillus Rhamnosus Gg (CULTURELLE) 1 Each Cap.sprink, 1 CAP PO BID for supplement for 30 Days, #60 CAP Prov:SANGEETHA MUELLER MD 12/26/18 Ondansetron (ONDANSETRON ODT) 4 Mg Tab.rapdis, 4 MG PO PRN Q6HRS PRN for NAUSEA/VOMITING 1ST CHOICE for 28 Days, #30 TAB Prov:SANGEETHA MUELLER MD 12/26/18 Clopidogrel Bisulfate (CLOPIDOGREL) 75 Mg Tablet, 75 MG PO DAILYWBKFT for pvd for 30 Days, #30 TAB Prov:SANGEETHA MUELLER MD 12/26/18 Folic Acid/Vitamin B Comp W-C (JOSE GUADALUPE-TORY TABLET) 0.8 Mg Tablet, 1 TAB PO DAILY for esrd, #30 TAB Prov:PRABHAKAR MOSQUERA MD 12/10/18 Acetaminophen (Tylenol) 325 Mg Capsule, 650 MG PO Q6-8HRS PRN for PAIN, #20 CAP Prov:KIMBERLY DONOHUE MD 11/14/18 Ranitidine Hcl (ZANTAC) 300 Mg Tablet, 1 TAB PO QHS for reflux, #90 TAB 3 Refills Prov:DANIELA ALMAZAN DO 08/29/18 Prochlorperazine Maleate (Compazine) 5 Mg Tablet, 5 MG PO PRN TID PRN for NAUSEA for 10 Days, #30 TAB Prov:FELI SHAH MD 08/26/18 [Pantoprazole] 40 MG TABLET. No Conflict Check, 40 MG PO DAILYAC for GERD for 30 Days, #30 2 Refills Prov:FELI SHAH MD 03/07/18 Reported Medications Bupropion Hcl (BUPROPION XL) 300 Mg Tab.er.24h, 1 TAB PO DAILYWBKFT for antidepressant, #30 TAB 2 Refills 09/23/19 Sertraline Hcl (ZOLOFT) 50 Mg Tablet, 50 MG PO DAILY for ANTI-DEPRESSANT, TAB 0 Refills 05/27/18 Lisinopril (LISINOPRIL) 20 Mg Tablet, 20 MG PO DAILY for FOR HYPERTENSION, TAB 0 Refills 05/27/18 Lipase/Protease/Amylase (ELVIA [place] 6,000 UNITS CAPSULE) 1 Each Capsule.dr, 1 TAB PO TID for digestion 04/23/18 Albuterol Sulfate (Proair Hfa) 8.5 Gm Hfa.aer.ad, 2 PUFF INH BID PRN for SHORTNESS OF BREATH, INHALER 03/22/18 Levothyroxine Sodium (LEVOTHYROXINE SODIUM) 50 Mcg Tablet, 1 TAB PO DAILY for thyroid, #30 TAB 5 Refills 03/22/18 Clonidine (CLONIDINE TTS-2 ) 1 Each Patch.tdwk, 1 PATCH TD WEEKLY for blood pressure, PATCH 03/22/18 Amlodipine Besylate (AMLODIPINE BESYLATE) 5 Mg Tablet, 10 MG PO DAILY for blood pressure 12/05/17 Atorvastatin Calcium (ATORVASTATIN CALCIUM) 40 Mg Tablet, 40 MG PO HS for cholesterol 12/05/17 Latanoprost (LATANOPROST) 2.5 Ml Drops, 1 DROP EACHEYE HS 09/24/17 JASPAL RAMOS MD Dec 20, 2019 15:17
--- NOTE | 2019-12-20 15:23 | CARD ---
MR#: [id number] Date of Study: 12/20/2019 Ordering Physician: MORAIMA BERRY, Referring Physician: MORAIMA BERRY, Tech: Yuli Piña APPROVED REPORT EXAM: Two-dimensional and M-mode echocardiogram with Doppler and color Doppler. Other Information Quality : AverageHR: 68bpm INDICATION Chest Pain 2D DIMENSIONS RVDd4.3 (2.9-3.5cm)Left Atrium(2D)4.2 (1.6-4.0cm) IVSd1.6 (0.7-1.1cm)Aortic Root(2D)2.8 (2.0-3.7cm) LVDd5.7 (3.9-5.9cm)LVOT Diameter1.9 (1.8-2.4cm) PWd1.3 (0.7-1.1cm)LVDs4.5 (2.5-4.0cm) FS (%) 21.7 %SV69.3 ml Aortic Valve AoV Peak Saleem.121.4cm/sAoV VTI27.6cm AO Peak GR.5.9mmHgLVOT VTI 15.38cm AO Mean GR.3mmHg Mitral Valve MV E Gwwtgnrb049.4cm/sMV E Peak Gr.5mmHg MV DECEL [id number] A Gsfraegv42.4cm/s MV E Mean Gr.2mmHgE/A Ratio1.5 TDI Lateral E' P. V3.73cm/sMedial E' P. V3.15cm/s E/Lateral E'29.1E/Medial E'34.4 Tricuspid Valve TR P. [id number]/sRAP [id number] TR Peak Gr.[id number] LEFT VENTRICLE The Left Ventricle is mildly dilated. There is mild concentric left ventricular hypertrophy. The ejec tion fraction is severely impaired. Left ventricular ejection fraction is 20 to 25%. There is severe global hypokinesis of the left ventricle. RIGHT VENTRICLE The right ventricle is borderline dilated. Systolic function is mildly reduced. ATRIA The left atrium size is normal. The right atrium size is normal. AORTIC VALVE The aortic valve is thickened but opens well. Doppler and Color Flow revealed trace aortic regurgitat ion. There is no significant aortic valvular stenosis. Calculated aortic valve area is 1.61 cm2 with maximum pressure gradient of 7 mmHg and mean pressure gradient of 4 mmHg. MITRAL VALVE The mitral valve is normal in structure and function. There is no evidence of mitral valve prolapse. There is no mitral valve stenosis. Doppler and Color-flow revealed mild mitral regurgitation. TRICUSPID VALVE The tricuspid valve is normal in structure and function. Doppler and Color Flow revealed mild tricusp id regurgitation with an estimated PAP of 42 mmHg. There is no tricuspid valve stenosis. PULMONIC VALVE The pulmonic valve is not well visualized. Doppler and Color Flow revealed trace to mild pulmonic soheila vular regurgitation. GREAT VESSELS The aortic root is normal in size. The ascending aorta is normal in size. The IVC is normal in size a nd collapses >50% with inspiration. PERICARDIAL EFFUSION There is no evidence of significant pericardial effusion. Critical Notification Critical Value: No <Conclusion> The Left Ventricle is mildly dilated. The ejection fraction is severely impaired. Left ventricular ejection fraction is 20 to 25%. There is severe global hypokinesis of the left ventricle. There is mild concentric left ventricular hypertrophy. Doppler and Color Flow revealed trace aortic regurgitation. There is no significant aortic valvular stenosis. Doppler and Color-flow revealed mild mitral regurgitation. Doppler and Color Flow revealed mild tricuspid regurgitation with an estimated PAP of 42 mmHg. Signed by : Gary Rivas MD Electronically Approved : 12/20/2019 15:23:06
--- NOTE | 2019-12-20 17:00 | NUR ---
Nurse exchange report called to MAGALY Saavedra from [facility].
[2019-12-20 17:07] VITALS: BP 210/83
[2019-12-20] MEDS ORDERED: FAMOTIDINE 20 MG TABLET. PO SCH (21:00)
[2019-12-20] MEDS ORDERED: LATANOPROST 0.005% OPHTH SOLUTION 2.5ML BOTTLE. OU SCH (21:00)
== END 2019-12-20 17:00 | DRG 291 ==
LOC: ER 20:57 → ED HOLD 12-19 06:30 → ER 12-19 07:49 → 2 NORTH 12-19 19:37
PROVIDERS: ADMIT Family Medicine; ATTEND Family Medicine
PROC: 5A1D70Z Performance of Urinary Filtration, Intermittent, Less than 6 Hours Per Day (ICD-10-PCS; principal; 2019-12-20)
DX: I13.2 Hypertensive heart and chronic kidney disease with heart failure and with stage 5 chronic kidney disease, or end stage renal disease (principal); I50.33 Acute on chronic diastolic (congestive) heart failure; N18.6 End stage renal disease; R07.89 Other chest pain; D63.1 Anemia in chronic kidney disease; E03.9 Hypothyroidism, unspecified; E11.42 Type 2 diabetes mellitus with diabetic polyneuropathy; E11.22 Type 2 diabetes mellitus with diabetic chronic kidney disease; E78.5 Hyperlipidemia, unspecified; F31.9 Bipolar disorder, unspecified; I48.91 Unspecified atrial fibrillation; J44.9 Chronic obstructive pulmonary disease, unspecified; K21.9 Gastro-esophageal reflux disease without esophagitis; E21.3 Hyperparathyroidism, unspecified; M79.7 Fibromyalgia; M19.90 Unspecified osteoarthritis, unspecified site; G89.29 Other chronic pain; Z74.01 Bed confinement status; Z82.49 Family history of ischemic heart disease and other diseases of the circulatory system; Z87.891 Personal history of nicotine dependence; Z89.511 Acquired absence of right leg below knee; Z89.512 Acquired absence of left leg below knee; Z89.611 Acquired absence of right leg above knee; Z89.612 Acquired absence of left leg above knee; Z90.710 Acquired absence of both cervix and uterus; Z91.19 Patient's noncompliance with other medical treatment and regimen; Z99.2 Dependence on renal dialysis; Z79.4 Long term (current) use of insulin
CPT/HCPCS: 36415; 71045; 80053; 82962; 83735; 83880; 84443; 84484; 85025; 85610; 86317; 87340; 93005; 93306; 96372; 99285; 99406; J2270; G0378